=== PATIENT | female | born 1960 | race Caucasian/White ===

== ENCOUNTER 2017-01-08 19:27 | Inpatient (IN) | payer OTHER ==
[~2017-01-08] VITALS: Ht 152.4 cm; Wt 73.6 kg
[~2017-01-08 19:27] MED LIST: AMT50 PO; ASPCH81X PO; ATOR-22 PO; CETI10TA10 PO; CYCL10TA6 PO; GABA-113 PO; GLC/500 PO; IBUP-1451 PO; METO25TA3 PO; OMEP40CA41 PO; SERT-234 PO; TRAZ100T29 PO; ZLF50 PO; ZOLP5TAB6 PO
[2017-01-08] MEDS ORDERED: LORAZEPAM 2 MG/ML 1 ML VIAL IV STA (20:03)
[2017-01-08] MEDS ORDERED: SODIUM CHLORIDE 0.9% 500ML 500 ML IV STA (20:03)
[2017-01-08] MEDS ORDERED: CEFTRIAXONE SOD INJ 1 GM ADDVIAL IV STA (20:03)
--- NOTE | 2017-01-08 20:06 | EMERGENCY ROOM VISIT NOTE ---
History Report prepared by Tash: Mario Kovacs Under the Supervision of: Dr. Channing Jennings M.D. First contact with patient: 19:56 Chief Complaint: SHORTNESS OF BREATH Stated Complaint: CHEST PAIN, BACK PAIN, SOB, CHEST FEELS HEAVY Nursing Triage Summary: Patient c/o SOB that began Sunday. States difficulty breathing worsens when lying flat. Patient also c/o urinary frequency and urgency that began 2 days ago. States, "I'm just sick." History of Present Illness The patient is a 56 year old female who presents to the Emergency Room with complaints of shortness of breath that began 3 days ago. She rates her current pain severity an 8/10. The patient was diagnosed with a UTI recently. They picked up her antibiotics today, but she did not take them yet. She came to the ED because she is experiencing the shortness of breath with a heaviness in her chest, chest pain, back pain, abdominal pain, and burning upon urination. Her pain worsens when she lies down. Source of History: patient Onset: today Position: other (Respiratory System) Symptom Intensity: 8/10 Quality: other (shortness of breath) Timing: constant Modifying Factors (Worsening): rest (lying down) Associated Symptoms: + abdominal pain, + back pain, + chest pain, + urinary symptoms Review of Systems See HPI for pertinent positives & negatives. A total of 10 systems reviewed and were otherwise negative. Past Medical & Surgical Medical Problems: (1) Hx Perforated diverticulitis (2) Intra-abdominal free air (3) Rectosigmoid resection Surgical Problems: (1) Colostomy in place Family History Psychiatric disorder Social History Smoking Status: Never Smoker Smokeless Tobacco Use: No Drug Use: none Marital Status: Housing Status: lives with family Occupation Status: employed Current/Historical Medications Scheduled Amitriptyline HCl (Amitriptyline HCl), 50 MG PO HS Aspirin (Aspirin Ec), 81 MG PO DAILY Atorvastatin (Atorvastatin Calcium), 20 MG PO DAILY Duloxetine HCl (Duloxetine HCl), 60 MG PO DAILY Fluticasone Propionate (Flovent Hfa), 2 PUFFS INH BID Gabapentin (Gabapentin), 600 MG PO TID Metformin HCl (Metformin HCl), 500 MG PO BID Metoprolol Succinate (Metoprolol Succinate ER), 37.5 MG PO BID Omeprazole (Prilosec), 40 MG PO QAM Sertraline HCl (Sertraline HCl), 200 MG PO DAILY Trazodone Hcl (Trazodone), 100 MG PO HS Scheduled PRN Lorazepam (Lorazepam), 0.5-1 MG PO Q6H PRN for Anxiety Sumatriptan Succinate (Imitrex), 50 MG PO UD PRN for Migraine Allergies Coded Allergies: Adhesives (Unverified Allergy, Intermediate, blistering, 05/25/16) Sulfa Antibiotics (Verified Allergy, Intermediate, swelling, 05/25/16) Penicillins (Verified Allergy, Unknown, ZOSYN = FLUSHED FASE, ITCHING, 05/25) FLUSHED FACE, ITCHING TOLERATED PRIMAXIN 2013 ADMISSION Physical Exam Vital Signs Date Time Temp Pulse Resp B/P Pulse Ox O2 Delivery O2 Flow Rate FiO2 01/08/17 23:48 91 20 102/61 86 Room Air 01/08/17 22:12 101 20 152/88 93 Room Air 01/08/17 21:07 104 20 155/85 92 01/08/17 21:02 105 26 01/08/17 20:57 105 34 01/08/17 20:43 92 Room Air 01/08/17 20:43 92 Room Air 01/08/17 19:49 37.7 100 22 160/86 91 Room Air Physical Exam GENERAL: Patient is a healthy-appearing well-nourished. She is hyperventilating. HEAD: Normocephalic atraumatic EYES: Ocular movements intact pupils equal and react to light OROPHARYNX mucous membranes are moist no exudates present no erythema or edema present NECK: Supple no nuchal rigidity CHEST: Good equal expansion LUNGS: Clear and equal to auscultation CARDIAC: Normal S1 and S2 ABDOMEN: Soft nontender no guarding BACK: No CVA tenderness EXTREMITIES: No pain upon palpation normal muscle strength in all groups no clubbing cyanosis or edema NEURO: Patient is following commands is answering questions appropriately. Alert and oriented x3 Cranial Nerves 2-12 grossly intact Medical Decision & Procedures ER Provider Diagnostic Interpretation: Radiology results as stated below per my review and radiologist interpretation: CHEST ONE VIEW PORTABLE CLINICAL HISTORY: Pt c/o SOB dyspnea COMPARISON STUDY: 09/01/2015 FINDINGS: Mild cardia megaly. Moderate prominence pulmonary vasculature. Diaphragms smooth. Permanent bipolar cardiac pacemaker/fibrillator. IMPRESSION: Developing congestive heart failure Electronically signed by: Fredis Reece M.D. 01/08/2017 8:23 PM Dictated Date/Time: 01/08/2017 8:[address] CT DOSE: 623.48 mGy.cm HISTORY: Headache. Mental status change. Pt c/o AMS TECHNIQUE: Multiaxial CT images of the head were performed without the use of intravenous contrast. Comparison: None. Findings: The paranasal sinuses and mastoid air cells are clear. The calvarium and skull base are intact. The ventricles and sulci are within normal limits. There is no mass, hematoma, midline shift, or acute infarct. Impression: No acute intracranial abnormality. Electronically signed by: Fredis Reece M.D. 01/08/2017 9:24 PM Dictated Date/Time: 01/08/2017 9:21 PM Laboratory Results 01/08/17 20:30 Red Blood Count 4.45, Mean Corpuscular Volume 87.6, Mean Corpuscular Hemoglobin 29.7, Mean Corpuscular Hemoglobin Concent 33.8, Mean Platelet Volume 10.0, Neutrophils (%) (Auto) 93.1, Lymphocytes (%) (Auto) 2.2, Monocytes (%) (Auto) 4.3, Eosinophils (%) (Auto) 0.1, Basophils (%) (Auto) 0.1, Neutrophils # (Auto) 12.61, Lymphocytes # (Auto) 0.30, Monocytes # (Auto) 0.58, Eosinophils # (Auto) 0.02, Basophils # (Auto) 0.01 01/08/17 20:30 Test 01/08/17 20:30 01/08/17 22:55 White Blood Count 13.55 K/uL (4.8-10.8) Red Blood Count 4.45 M/uL (4.2-5.4) Hemoglobin 13.2 g/dL (12.0-16.0) Hematocrit 39.0 % (37-47) Mean Corpuscular Volume 87.6 fL (80-100) Mean Corpuscular Hemoglobin 29.7 pg (25-34) Mean Corpuscular Hemoglobin Concent 33.8 g/dl (32-36) Platelet Count 156 K/uL (130-400) Mean Platelet Volume 10.0 fL (7.4-10.4) Neutrophils (%) (Auto) 93.1 % Lymphocytes (%) (Auto) 2.2 % Monocytes (%) (Auto) 4.3 % Eosinophils (%) (Auto) 0.1 % Basophils (%) (Auto) 0.1 % Neutrophils # (Auto) 12.61 K/uL (1.4-6.5) Lymphocytes # (Auto) 0.30 K/uL (1.2-3.4) Monocytes # (Auto) 0.58 K/uL (0.11-0.59) Eosinophils # (Auto) 0.02 K/uL (0-0.5) Basophils # (Auto) 0.01 K/uL (0-0.2) RDW Standard Deviation 49.3 fL (36.4-46.3) RDW Coefficient of Variation 15.3 % (11.5-14.5) Immature Granulocyte % (Auto) 0.2 % Immature Granulocyte # (Auto) 0.03 K/uL (0.00-0.02) Anion Gap 13.0 mmol/L (3-11) Est Creatinine Clear Calc Drug Dose 42.7 ml/min Estimated GFR () 52.4 Estimated GFR (Non- 45.2 BUN/Creatinine Ratio 17.8 (10-20) Calcium Level 8.9 mg/dl (8.5-10.1) Total Bilirubin 1.6 mg/dl (0.2-1) Aspartate Amino Transf (AST/SGOT) 39 U/L (15-37) Alanine Aminotransferase (ALT/SGPT) 37 U/L (12-78) Alkaline Phosphatase 135 U/L (45-117) Total Creatine Kinase 149 U/L (26-192) Creatine Kinase MB 1.3 ng/ml (0.5-3.6) Creatine Kinase MB Ratio 0.9 (0-3.0) Total Protein 7.4 gm/dl (6.4-8.2) Albumin 3.5 gm/dl (3.4-5.0) Globulin 3.9 gm/dl (2.5-4.0) Albumin/Globulin Ratio 0.9 (0.9-2) Labs reviewed by ED physician. Medications Administered Medications (Trade) Dose Ordered Sig/Nessa Route Start Time Stop Time Status Last Admin Dose Admin Sodium Chloride (Nss 500ml) 500 ml @ 999 mls/hr Q31M STAT IV 01/08/17 20:03 01/08/17 20:33 DC 01/08/17 20:46 999 MLS/HR Ceftriaxone Sodium (Rocephin Inj) 1 gm NOW STAT IV 01/08/17 20:03 01/08/17 20:06 DC 01/08/17 20:46 1 GM Lorazepam (Ativan Inj) 0.5 mg NOW STAT IV 01/08/17 20:03 01/08/17 20:06 DC 01/08/17 20:46 0.5 MG Acetaminophen (Tylenol Tab) 1,000 mg NOW STAT PO 01/08/17 20:34 01/08/17 20:35 DC 01/08/17 20:50 1,000 MG Ketorolac Tromethamine (Toradol Inj) 30 mg NOW STAT IV 01/08/17 20:52 01/08/17 20:54 DC 01/08/17 21:02 30 MG Ondansetron HCl 4 mg 4 mg NOW STAT IV 01/08/17 20:52 01/08/17 20:54 DC 01/08/17 21:02 4 MG Furosemide/Syringe (Lasix Inj/ Syringe) 2 ml @ 4 mls/min NOW STAT IV 01/08/17 21:32 01/08/17 21:34 DC 01/08/17 22:00 4 MLS/MIN Aspirin (Aspirin Chew) 324 mg NOW STAT PO 01/08/17 22:33 01/08/17 22:35 DC 01/08/17 22:46 324 MG ECG Indication: SOB/dyspnea Rate (beats per minute): 102 Rhythm: sinus tachycardia Findings: no acute ischemic change, no ectopy ED Course 1955: Past medical records reviewed. The patient was evaluated in room A12. A complete history and physical examination was performed. 2002: Ativan Inj 0.5 mg IV, Rocephin Inj 1 mg IV, Sodium Chloride 500 ml @ 999 mls/hr IV 2029: I checked on the patient at this time. She is still hyperventilating. 2033: Tylenol 1000 mg PO 2051: Zofran Inj 4 mg IV, Toradol Inj 30 mg IV 2131: Furosemide 20 mg/ Syringe 2 ml @ 4 mls/min IV 2232: Aspirin 324 mg PO 2233: Upon reexamination the patient is resting. I discussed results and treatment plan with the patient. She verbalizes agreement and understanding. I spoke with Dr. Carter from the [facility]. The patient will be evaluated for further management. Medical Decision Etiologies such as infections, reactive airway disease, pneumonia, pneumothorax , COPD, CHF, cardiac ischemia, pulmonary embolism, musculoskeletal, gastrointestinal, as well as others were entertained. His is a 56-year-old female who presents emergency Department with a number of complaints. The patient is complaining of fever, headache, shortness of breath. She appears to be hyperventilating on examination. I tried to verbally de-escalate the patient however she was then given Ativan. She was given normal saline bolus in the emergency department. The patient came to the emergency department complaining of urinary symptoms however has not been able to provide us with a urine sample. She was given Lasix for the chest x-ray findings. She does have an elevation in her troponin. I did discuss the case with the hospitalist service who agreed to admit the patient. Patient was in agreement with the treatment plan. Consults Time Called: [phone] Consulting Physician: Dr. Carter - [facility] Returned Call: [phone] He will be evaluating the patient for further management. Impression Primary Impression: Fever Scribe Attestation The scribe's documentation has been prepared under my direction and personally reviewed by me in its entirety. I confirm that the note above accurately reflects all work, treatment, procedures, and medical decision making performed by me. Departure Information Dispostion Being Evaluated By Hospitalist Referrals Suad De León D.O. (PCP) Patient Instructions [facility] Problem Qualifiers Primary Impression: Fever Fever type: unspecified Qualified Codes: R50.9 - Fever, unspecified
--- NOTE | 2017-01-08 20:25 | DIAGNOSTIC IMAGING REPORT ---
ADDENDUM Addendum: The linear radiodensity along the superior aspect of the right subclavian pacemaker is a portion of the pacemaker. No abandoned lead is present. Electronically signed by: Phil Devries M.D. 01/11/2017 11:46 AM Dictated Date/Time: 01/11/2017 11:46 AM ADDENDUM There is a possibility of a third residual pacer lead medially superior to the battery pack as noted. Electronically signed by: Fredis Reece M.D. 01/11/2017 11:18 AM Dictated Date/Time: 01/11/2017 11:18 AM ORIGINAL REPORT CHEST ONE VIEW PORTABLE CLINICAL HISTORY: Pt c/o SOB dyspnea COMPARISON STUDY: 09/01/2015 FINDINGS: Mild cardia megaly. Moderate prominence pulmonary vasculature. Diaphragms smooth. Permanent bipolar cardiac pacemaker/fibrillator. IMPRESSION: Developing congestive heart failure Electronically signed by: Fredis Reece M.D. 01/08/2017 8:23 PM Dictated Date/Time: 01/08/2017 8:22 PM
[2017-01-08] MEDS ORDERED: ACETAMINOPHEN 500 MG TAB PO STA (20:34)
[2017-01-08] MEDS ORDERED: ATV5X PO (20:42)
[2017-01-08] MEDS ORDERED: ONDANSETRON INJ 2 MG/ML 2 ML VIAL IV STA (20:52)
[2017-01-08] MEDS ORDERED: KETOROLAC TROMETHAMINE 30 MG/ML VIAL IV STA (20:52)
--- NOTE | 2017-01-08 21:25 | DIAGNOSTIC IMAGING REPORT ---
HEAD CT NONCONTRAST CT DOSE: 623.48 mGy.cm HISTORY: Headache. Mental status change. Pt c/o AMS TECHNIQUE: Multiaxial CT images of the head were performed without the use of intravenous contrast. Comparison: None. Findings: The paranasal sinuses and mastoid air cells are clear. The calvarium and skull base are intact. The ventricles and sulci are within normal limits. There is no mass, hematoma, midline shift, or acute infarct. Impression: No acute intracranial abnormality. Electronically signed by: Fredis Reece M.D. 01/08/2017 9:24 PM Dictated Date/Time: 01/08/2017 9:21 PM
[2017-01-08] MEDS ORDERED: FUROSEMIDE INJ 20 MG in SYRINGE 0 ML IV STA (21:32)
[2017-01-08 21:49] LABS: BASO % 0.1 %; BASO ABS # 0.01 K/uL (0-0.2); COMPLETE YES; EOS % 0.1 %; IG% 0.2 %; LYMPH % 2.2 %; MEAN CELL VOLUME 87.6 fL (80-100); MEAN CORPUSCULAR HEMOGLOBIN 29.7 pg (25-34); MEAN CORPUSCULAR HGB CONC 33.8 g/dl (32-36); MONO % 4.3 %; NEUT % 93.1 %; PLATELET COUNT 156 K/uL (130-400); RED BLOOD COUNT 4.45 M/uL (4.2-5.4); WHITE BLOOD COUNT 13.55 K/uL (4.8-10.8)
[2017-01-08 22:11] LABS: BUN/CREATININE RATIO 17.8 (10-20); CALCIUM 8.9 mg/dl (8.5-10.1); CREATININE 1.3 mg/dl (0.60-1.20); POTASSIUM 3.5 mmol/L (3.5-5.1)
[2017-01-08 22:18] LABS: ALB/GLOB RATIO 0.9 (0.9-2); CKMB/CK RATIO 0.9 (0-3.0)
[2017-01-08] MEDS ORDERED: LPT/20 PO (22:32)
[2017-01-08] MEDS ORDERED: ASPI81TA28 PO (22:32)
[2017-01-08] MEDS ORDERED: ZLF/100 PO (22:32)
[2017-01-08] MEDS ORDERED: GLC500 PO (22:32)
[2017-01-08] MEDS ORDERED: TPRSR/25 PO (22:32)
[2017-01-08] MEDS ORDERED: GABA1CAP4 PO (22:32)
[2017-01-08] MEDS ORDERED: AMT/50 PO (22:32)
[2017-01-08] MEDS ORDERED: TRAZ50TA35 PO (22:32)
[2017-01-08] MEDS ORDERED: CYM60 PO (22:32)
[2017-01-08] MEDS ORDERED: ASPIRIN 81 MG CHEW PO STA (22:33)
[2017-01-08] MEDS ORDERED: SUMA25TA12 PO (22:35)
[2017-01-08] MEDS ORDERED: FLVHFA110 INH (22:40)
[2017-01-08] MEDS ORDERED: METOPROLOL SUCC 25MG EXT REL TAB PO STA (23:00)
[2017-01-08] MEDS ORDERED: LEVALBUTEROL/IPRATROPIUM NEB INH STA (23:25)
[2017-01-08] MEDS ORDERED: LEVALBUTEROL/IPRATROPIUM NEB INH PRN (23:30)
[2017-01-08] MEDS ORDERED: IPRATROPIUM BROMIDE NEB SOLN 0.02% 2.5 ML VIAL INH STA (23:36)
[2017-01-08] MEDS ORDERED: LEVALBUTEROL 1.25MG/0.5ML NEB INH STA (23:36)
[2017-01-08] MEDS ORDERED: LEVALBUTEROL 1.25MG/0.5ML NEB INH PRN (23:45)
[2017-01-08] MEDS ORDERED: IPRATROPIUM BROMIDE NEB SOLN 0.02% 2.5 ML VIAL INH PRN (23:45)
[2017-01-09] VITALS (10 sets, daily range): BP systolic 100–147; BP diastolic 65–87; PULSE 72–94; TEMP 36.5–38; O2SAT 92–100; Ht 152.4 cm; Wt 73.6 kg
[2017-01-09] MEDS ORDERED: POTASSIUM CHLORIDE 10 MEQ TABCR PO STA ×2 (00:26→00:58)
[2017-01-09] MEDS ORDERED: GLUCAGON FOR INJ 1 MG VIAL SQ PRN (00:30)
[2017-01-09] MEDS ORDERED: DEXTROSE 50% 50 ML SYR IV PRN (00:30)
[2017-01-09] MEDS ORDERED: GLUCOSE 10 TABS/TUBE PO PRN (00:30)
[2017-01-09] MEDS ORDERED: GLUCOSE 40% GEL 15 GM TUBE PO PRN (00:30)
[2017-01-09] MEDS ORDERED: NITROGLYCERIN 0.4 MG SL PER TAB CHARGE SL PRN (00:30)
[2017-01-09] MEDS ORDERED: LORAZEPAM 2 MG/ML 1 ML VIAL IV PRN (00:45)
[2017-01-09 00:52] LABS: MAGNESIUM 1.8 mg/dl (1.8-2.4); THYROID STIMULATING HORMONE 0.849 uIu/ml (0.300-4.500)
[2017-01-09] MEDS ORDERED: CEFEPIME IV 2,000 MG in DEXTROSE 5% 100ML 100 ML IV STA (00:55)
[2017-01-09] MEDS ORDERED: MAGNESIUM SULFATE 1GM / D5W 1 GM in PREMIXED IN D5W 100 ML IV STA (00:58)
[2017-01-09] MEDS ORDERED: MAGNESIUM SULFATE 1GM / D5W 1 GM BAG ONE (01:09)
[2017-01-09] MEDS ORDERED: HYDROmorphone INJ 0.5 MG/0.5 ML SYR IV PRN (01:30)
[2017-01-09 01:44] LABS: INR 1.2 (0.9-1.1); PROTHROMBIN TIME (PATIENT) 12.7 SECONDS (9.0-12.0)
[2017-01-09 02:34] LABS: INFLUENZA A PCR Neg for Influ A (NEG); INFLUENZA B PCR Neg for Influ B (NEG)
--- NOTE | 2017-01-09 03:03 | HISTORY & PHYSICAL EXAMINATION ---
DATE OF ADMISSION: 01/08/2017 PRIMARY CARE DOCTOR: Dr. De León Hx obtained form px and records. CHIEF COMPLAINT: Shortness of breath. HISTORY OF PRESENT ILLNESS: Medical history is significant for HOCM w/ documented genetic mutation/FH SCD sp ICD placement, hypertension, DM2 on oral meds, CADENCE/RLD as per records, hx bowel perforation sp status post surgery. Recent confinement last in August 2015 for ICD placement. In the last few days, the patient noted chest heaviness and shortness of breath. Gradual weight gain in the last several months of 40 pounds. no cough. no unusual leg swelling. Patient noted some foul urine smell. Patient called PCP's office. Macrodantin prescribed for poss UTI. Patient never got to take the medications. Px later noted achy abd discomfort/back pain, nausea, no emesis. chills later noted She was brought by her to the Emergency Room. At the Emergency Room, the patient received Lasix for CHF and ceftriaxone for sepsis. Px currently cp free. MEDICAL HISTORY: As above. Problems with CPAP compliance, poor interface as per records. April 2016 stress echo, no inducible ischemia, small LV chamber size, severe LVH , EF 60-65%, grade 2 diastolic dysfunction. SURGERIES: She has had bowel surgery, ICD placement, appendectomy and section. HOME MEDICATIONS: Include; trazodone, lorazepam, metformin, metoprolol, Prilosec, sertraline, Imitrex, aspirin, atorvastatin, meloxicam, Flovent and gabapentin ALLERGIES: TO ADHESIVES, PENICILLIN AND SULFA. FAMILY HISTORY: Sudden cardiac . PERSONAL AND SOCIAL HISTORY: Nonsmoker. No chronic intake of alcoholic beverages. Homemaker. REVIEW OF SYSTEMS: As per HPI, all other ROS negative. PHYSICAL EXAMINATION: VITAL SIGNS: Blood pressure was noted to be 160/86 later 102/61, pulse rate 105, RR 26, temperature 37.7 O2 sats 91 on room air. GENERAL: Noted to be anxious, obese, in no respiratory distress. SKIN: Normal color. HEENT: [place] palpebral conjunctivae. Dry mucosa. NECK: Short neck. LUNGS: Decreased breath sounds. Occasional wheeze. HEART: Regular rate and rhythm. ABDOMEN: Some distention, nontender. EXTREMITIES: No edema, no tenderness. NEUROLOGIC: No gross focality. LABORATORIES: Hemoglobin 12, hematocrit 31, white cell count is 13 and platelets 150. Sodium 137 potassium 3.5, chloride 97, CO2 25, BUN 20, creatinine 1.5, glucose 146. Troponin was 0.089 Hemoglobin A1c in September [address] head; no acute pathology. Chest x-ray: CHF. EKG showed 105, sinus tachycardia, LVH, with ST dep, T-wave inversion in lateral leads UA pending ASSESSMENT: 1. Acute congestive heart failure history of HOCM sp ICD 2. sepsis 2 to UTI 3. troponemia secondary to transient BP elevation, tachycardia 2 to sepsis 4. Hypertension, currently stable. 5. DM2, on oral medications reasonable control as of recent outpx HgA1c 6. ARF 2 to illness 7. CADENCE/restrictive lung dse as per records PLAN: PCU. Diuretic therapy, nebs p.r.n. continue home BB 2D echo, Cardio consult for CHF strict IOs, daily weights, CHF education baseline UA, PRP while on diuretic tx trend markers CS, IV Cefepime for now CT abdomen and pelvis, nonspecific abd/back pain ro SBO, hx bowel surgery ISS BG goal 140-180 DVT prophylaxis. Heparin SQ if no bleeding on CAT scan Full code. MTDD
[2017-01-09] MEDS ORDERED: POTASSIUM CHLORIDE 10 MEQ TABCR PO SCH (04:00)
[2017-01-09 04:53] LABS: BASO % 0.1 %; BASO ABS # 0.01 K/uL (0-0.2); COMPLETE YES; EOS % 0.1 %; HEMATOCRIT 36.9 % (37-47); IG% 0.3 %; LYMPH % 3.3 %; LYMPH ABS # 0.34 K/uL (1.2-3.4); MEAN CELL VOLUME 86.2 fL (80-100); MEAN CORPUSCULAR HEMOGLOBIN 30.1 pg (25-34); MEAN PLATELET VOLUME 9.4 fL (7.4-10.4); MONO % 3.4 %; NEUT % 92.8 %; PLATELET COUNT 140 K/uL (130-400); RED BLOOD COUNT 4.28 M/uL (4.2-5.4); WHITE BLOOD COUNT 10.35 K/uL (4.8-10.8)
[2017-01-09 05:08] LABS: BUN/CREATININE RATIO 14.7 (10-20); CALCIUM 8.6 mg/dl (8.5-10.1); CREATININE 1.7 mg/dl (0.60-1.20); POTASSIUM 3.5 mmol/L (3.5-5.1)
[2017-01-09 06:13] LABS: URINE APPEARANCE CLOUDY (CLEAR); URINE BILIRUBIN NEG (NEG); URINE COLOR DK YELLOW; URINE NITRITE POS (NEG); URINE SPECIFIC GRAVITY 1.013 (1.000-1.030); UROBILINOGEN NEG (NEG); ZZUR CULT IF INDIC CLEAN CATCH YES
[2017-01-09] MEDS: HEPARIN SOD 5000 UNIT/0.5 ML CARP SQ SCH ×3 (06:16→21:12)
[2017-01-09 06:25] LABS: MANUAL MICROSCOPIC REQUIRED? NO; REVIEW REQ? YES
[2017-01-09 06:37] LABS: URINE MUCUS PRESENT (NONE PRSENT)
--- NOTE | 2017-01-09 06:56 | DIAGNOSTIC IMAGING REPORT ---
CT SCAN OF THE ABDOMEN AND PELVIS WITHOUT CONTRAST CLINICAL HISTORY: Generalized abdominal pain COMPARISON STUDY: 11/11/2014 TECHNIQUE: CT scan of the abdomen and pelvis was performed from the lung bases to the proximal femurs. Images are reviewed in the axial, sagittal, and coronal planes. IV contrast was not administered for this examination. CT DOSE: 572.42 mGy.cm FINDINGS: Lower chest: The heart is mildly enlarged. Liver: There is mild hepatic steatosis. No focal masses are visualized. Gallbladder: Unremarkable. Spleen: The spleen is enlarged measuring 14 cm. Pancreas: There is a 2.5 cm cystic lesion within the pancreatic head. Pancreatic MRI is recommended in follow-up Adrenal glands: Unremarkable. Kidneys: There is persistent right-sided hydronephrosis with an extrarenal pelvis in a configuration suggesting a UPJ type obstruction. There is increasing right-sided perinephric edema. No calculi are visualized. Bowel: There are no transition zones indicate bowel obstruction. There are no findings to indicate acute appendicitis. There are no findings to indicate acute diverticulitis. Surgical clips are visualized the region of the sigmoid. Several ventral hernias are visualized. Peritoneum: There is no intraperitoneal free air or abdominal ascites. Vasculature: The abdominal aorta is normal in course and caliber. Adenopathy: None. Pelvic viscera: The bladder, and pelvic viscera are unremarkable. Skeletal structures: No destructive osseous lesions are seen. IMPRESSION: 1. Persistent right-sided hydronephrosis with extra renal pelvis in a configuration suggesting a UPJ obstruction. There is increasing right-sided perinephric edema, and superimposed infection cannot be excluded. Correlation with urinalysis is recommended 2. 2.5 cm cystic lesion within the pancreatic head. Further workup is advocated. This finding was not described on the preliminary report, and therefore this report will be called. 3. No evidence of bowel obstruction. No evidence of free air 4. Splenomegaly 5. Hepatic steatosis 6. Multiple ventral hernias. Electronically signed by: Dino Spann M.D. 01/09/2017 6:55 AM Dictated Date/Time: 01/09/2017 6:48 AM
[2017-01-09] MEDS: TRAMADOL HCL 50 MG TAB PO PRN ×2 (07:41→21:18)
[2017-01-09] MEDS: SERTRALINE HCL 100 MG TAB PO SCH (07:47)
[2017-01-09] MEDS: DULOXETINE HCL 60 MG CAP PO SCH (07:48)
[2017-01-09] MEDS: ASPIRIN 81 MG ECTAB PO SCH (07:48)
[2017-01-09] MEDS: PANTOprazole SOD 40 MG TAB PO SCH (07:48)
[2017-01-09] MEDS: METOPROLOL SUCC 25MG EXT REL TAB PO SCH ×2 (07:48→21:09)
[2017-01-09] MEDS: ATORVASTATIN 20 MG TAB PO SCH (07:48)
[2017-01-09] MEDS: FLUTICASONE HFA 110MCG INHALER INH SCH ×2 (07:49→21:08)
[2017-01-09] MEDS: GABAPENTIN 100 MG CAP PO SCH ×3 (07:49→21:10)
[2017-01-09] MEDS: INSULIN ASPART 100 UNITS/ML 3 ML PEN SC SCH ×4 (08:34→21:00)
[2017-01-09] MEDS ORDERED: FUROSEMIDE INJ 60 MG in SYRINGE 0 ML IV SCH (09:00)
[2017-01-09] MEDS ORDERED: [UNRECOGNIZED DRUG - OTHER] PRN (09:00)
[2017-01-09] MEDS ORDERED: CEFEPIME CONSULT ACTIVE PRN ×2 (09:30)
[2017-01-09] MEDS: ACETAMINOPHEN 325 MG TAB PO PRN (11:27)
--- NOTE | 2017-01-09 18:49 | Progress Note ---
Medicine Progress Note Date & Time of Visit: Jan 09, 2017 at 18:32. Subjective Patient seen and examined. Feels achy, but states that this is normal for her. Objective Last 8 Hrs Date Time Temp Pulse Resp B/P Pulse Ox O2 Delivery O2 Flow Rate FiO2 01/09/17 16:00 Nasal Cannula 2.0 01/09/17 15:19 36.5 72 22 100/65 93 Nasal Cannula 2.0 01/09/17 12:36 37.4 01/09/17 12:00 Nasal Cannula 2.0 01/09/17 11:23 38.0 91 24 147/87 100 Nasal Cannula 2.0 Physical Exam: General-awake; alert; NAD Eyes-EOMI; no scleral icterus Neck-no stridor; trachea midline Lungs-CTA bilaterally; no wheezes/crackles Heart-RRR; no m/r/g Abdomen-soft; nBS; ventral incisional hernias Extremities-no c/c/e; no deformity Neuro-no gross focal deficits Laboratory Results: Last 24 Hours Test 01/08/17 20:30 01/08/17 23:50 01/09/17 00:08 01/09/17 04:36 White Blood Count 13.55 K/uL 10.35 K/uL Red Blood Count 4.45 M/uL 4.28 M/uL Hemoglobin 13.2 g/dL 12.9 g/dL Hematocrit 39.0 % 36.9 % Mean Corpuscular Volume 87.6 fL 86.2 fL Mean Corpuscular Hemoglobin 29.7 pg 30.1 pg Mean Corpuscular Hemoglobin Concent 33.8 g/dl 35.0 g/dl Platelet Count 156 K/uL 140 K/uL Mean Platelet Volume 10.0 fL 9.4 fL Neutrophils (%) (Auto) 93.1 % 92.8 % Lymphocytes (%) (Auto) 2.2 % 3.3 % Monocytes (%) (Auto) 4.3 % 3.4 % Eosinophils (%) (Auto) 0.1 % 0.1 % Basophils (%) (Auto) 0.1 % 0.1 % Neutrophils # (Auto) 12.61 K/uL 9.61 K/uL Lymphocytes # (Auto) 0.30 K/uL 0.34 K/uL Monocytes # (Auto) 0.58 K/uL 0.35 K/uL Eosinophils # (Auto) 0.02 K/uL 0.01 K/uL Basophils # (Auto) 0.01 K/uL 0.01 K/uL RDW Standard Deviation 49.3 fL 48.3 fL RDW Coefficient of Variation 15.3 % 15.2 % Immature Granulocyte % (Auto) 0.2 % 0.3 % Immature Granulocyte # (Auto) 0.03 K/uL 0.03 K/uL Sodium Level 135 mmol/L 138 mmol/L Potassium Level 3.5 mmol/L 3.5 mmol/L Chloride Level 97 mmol/L 101 mmol/L Carbon Dioxide Level 25 mmol/L 26 mmol/L Anion Gap 13.0 mmol/L 11.0 mmol/L Blood Urea Nitrogen 23 mg/dl 25 mg/dl Creatinine 1.30 mg/dl 1.70 mg/dl Est Creatinine Clear Calc Drug Dose 42.7 ml/min 32.6 ml/min Estimated GFR () 52.4 37.9 Estimated GFR (Non- 45.2 32.7 BUN/Creatinine Ratio 17.8 14.7 Random Glucose 146 mg/dl 138 mg/dl Calcium Level 8.9 mg/dl 8.6 mg/dl Total Bilirubin 1.6 mg/dl Aspartate Amino Transf (AST/SGOT) 39 U/L Alanine Aminotransferase (ALT/SGPT) 37 U/L Alkaline Phosphatase 135 U/L Total Creatine Kinase 149 U/L Creatine Kinase MB 1.3 ng/ml Creatine Kinase MB Ratio 0.9 Troponin I 0.089 ng/ml 0.113 ng/ml 0.124 ng/ml Total Protein 7.4 gm/dl Albumin 3.5 gm/dl Globulin 3.9 gm/dl Albumin/Globulin Ratio 0.9 Influenza Type A (RT-PCR) Neg for Influ A Influenza Type A Antigen Neg for Influ A Influenza Type B Antigen Neg for Influ B Influenza Type B (RT-PCR) Neg for Influ B Prothrombin Time 12.7 SECONDS Prothromb Time International Ratio 1.2 Activated Partial Thromboplast Time 27.2 SECONDS Partial Thromboplastin Ratio 1.0 Lactic Acid Level 1.5 mmol/L Magnesium Level 1.8 mg/dl Lipase 69 U/L Thyroid Stimulating Hormone (TSH) 0.849 uIu/ml Hepatitis C Antibody Screen NEG Test 01/09/17 05:20 01/09/17 07:54 01/09/17 11:00 01/09/17 11:29 Urine Color DK YELLOW Urine Appearance CLOUDY Urine pH 5.0 Urine Specific [place] 1.013 Urine Protein 2+ Urine Glucose (UA) NEG Urine Ketones NEG Urine Occult Blood 3+ Urine Nitrite POS Urine Bilirubin NEG Urine Urobilinogen NEG Urine Leukocyte Esterase LARGE Urine WBC (Auto) >30 /hpf Urine RBC (Auto) 0-4 /hpf Urine Hyaline Casts (Auto) 0 /lpf Urine Epithelial Cells (Auto) 10-20 /lpf Urine Bacteria (Auto) 2+ Urine Pathogenic Casts /lpf Urine Mucus PRESENT Bedside Glucose 133 mg/dl 120 mg/dl Troponin I 0.120 ng/ml Test 01/09/17 15:48 Bedside Glucose 98 mg/dl Date/Time Source Procedure Growth Status 01/09/17 00:08 Blood Blood Culture Pending Received 01/09/17 00:00 Blood Blood Culture Pending Received 01/09/17 05:20 Urine , Clean Catch Urine Culture Pending Received Assessment & Plan Sepsis - resolved - likely underlying complicated UTI - dirty urinalysis - blood and urine cultures pending - continue cefepime for now Elevated troponin - Cardiology consulted - 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 - downtrended - EKG with TWI in V2-6 - asymptomatic - continue aspirin, metoprolol and atorvastatin - TTE pending OSBALDO - possibly 2/2 diuresis - hold on further diuresis at this time as patient does not appear to be clinically volume overloaded Type 2 DM - hold metformin - SSI while inpatient Pancreatic cystic lesion - will d/w GI any further inpatient workup DVT prophylaxis with heparin sq Consultants: Cardiology Procedures: CT a/p 1. Persistent right-sided hydronephrosis with extra renal pelvis in a configuration suggesting a UPJ obstruction. There is increasing right-sided perinephric edema, and superimposed infection cannot be excluded. Correlation with urinalysis is recommended 2. 2.5 cm cystic lesion within the pancreatic head. Further workup is advocated. This finding was not described on the preliminary report, and therefore this report will be called. 3. No evidence of bowel obstruction. No evidence of free air 4. Splenomegaly 5. Hepatic steatosis 6. Multiple ventral hernias. CT head No acute intracranial abnormality. Current Inpatient Medications: Current Inpatient Medications Medications (Trade) Dose Ordered Sig/Nessa Route Start Time Stop Time Status Last Admin Dose Admin Metoprolol Succinate (Toprol Xl Tab) 37.5 mg BID PO 01/09/17 09:00 02/08/17 08:59 01/09/17 07:48 37.5 MG Ipratropium [place] (Atrovent 0.02% 0.5MG/2.5ML Neb) 0.5 mg Q4H PRN INH 01/08/17 23:45 02/07/17 23:44 Levalbuterol (Xopenex 1.25MG/ 0.5ML Neb) 1.25 mg Q4H PRN INH 01/08/17 23:45 02/07/17 23:44 Heparin Sodium (Porcine) (Heparin Sq 5000 Unit/0.5ml) 5,000 unit Q8 SQ 01/09/17 06:00 02/08/17 05:59 01/09/17 13:40 5,000 UNIT Acetaminophen (Tylenol Tab) 650 mg Q4H PRN PO 01/09/17 00:30 02/08/17 00:29 01/09/17 11:27 650 MG Nitroglycerin (Nitrostat Tab) 0.4 mg UD PRN SL 01/09/17 00:30 02/08/17 00:29 Insulin Aspart (novoLOG ASPART) SLIDING SCALE If C... ACHS SC 01/09/17 07:00 02/08/17 06:59 Glucose (Glucose 40% Gel) 15-30 GRAMS 15 GRAMS... UD PRN PO 01/09/17 00:30 02/08/17 00:29 Glucose (Glucose Chew Tab) 4-8 Tablets 4 Tabl... UD PRN PO 01/09/17 00:30 02/08/17 00:29 Dextrose (Dextrose 50% 50ML Syringe) 25-50ML OF 50% DW IV FOR... UD PRN IV 01/09/17 00:30 02/08/17 00:29 Glucagon 1 mg 1 mg UD PRN SQ 01/09/17 00:30 02/08/17 00:29 Furosemide/Syringe (Lasix Inj/ Syringe) 6 ml @ 4 mls/min DAILY IV 01/09/17 09:00 01/10/17 08:59 Future Hold 01/09/17 08:35 4 MLS/MIN Amitriptyline HCl (Elavil Tab) 50 mg HS PO 01/09/17 21:00 02/08/17 20:59 Aspirin (Ecotrin Tab) 81 mg DAILY PO 01/09/17 09:00 02/08/17 08:59 01/09/17 07:48 81 MG Atorvastatin Calcium (Lipitor Tab) 20 mg DAILY PO 01/09/17 09:00 02/08/17 08:59 01/09/17 07:48 20 MG Duloxetine HCl (Cymbalta Cap) 60 mg DAILY PO 01/09/17 09:00 02/08/17 08:59 01/09/17 07:48 60 MG Fluticasone Propionate (Flovent Hfa 110MCG Inhaler) 2 puffs BID INH 01/09/17 09:00 02/08/17 08:59 01/09/17 07:49 2 PUFFS Sertraline HCl (Zoloft Tab) 200 mg DAILY PO 01/09/17 09:00 02/08/17 08:59 01/09/17 07:47 200 MG Trazodone HCl (Desyrel Tab) 100 mg HS PO 01/09/17 21:00 02/08/17 20:59 Pantoprazole Sodium (Protonix Tab) 40 mg QAM PO 01/09/17 09:00 02/08/17 08:59 01/09/17 07:48 40 MG Gabapentin (Neurontin Cap) 200 mg TID PO 01/09/17 09:00 02/08/17 08:59 01/09/17 13:40 200 MG Tramadol HCl 25 mg 25 mg Q6H PRN PO 01/09/17 01:30 02/08/17 01:29 01/09/17 07:41 25 MG Cefepime HCl/ Dextrose (Maxipime IV/D5 100ml) 112.5 ml @ 225 mls/hr Q24H IV 01/10/17 01:00 01/18/17 01:29 Cefepime HCl (Consult) 1 ea DAILY PRN N/A 01/09/17 09:30 02/08/17 09:29
--- NOTE | 2017-01-09 19:52 | CARDIOLOGY CONSULTATION ---
DATE OF CONSULTATION: 01/09/2017 HISTORY OF PRESENT ILLNESS: Kalie Velasquez is a 56-year-old female seen in cardiology consultation per the request of Dr. Carter for evaluation of shortness of breath, possible congestive heart failure. Her primary informatica mdm architect is Dr. Sb Bruno of our practice. The patient presented to the Emergency Room overnight last night with complaints of shortness of breath. Her chest x-ray was suggestive of volume overload and she stated that she has gained 40 pounds over the last several months. She also noted that she had a foul smell to her urine recently and had recently been treated as an outpatient for suspected urinary tract infection. She received a dose of furosemide 20 mg last evening at 2200 hours and received 60 mg today. At present, her furosemide is on hold. She is receiving antibiotics for presumed underlying sepsis. Her urinalysis is positive. Urine culture is unremarkable thus far. A CT of the abdomen and pelvis revealed a persistent right-sided hydronephrosis with extrarenal pelvis and a configuration suggestive of UPJ obstruction. There is increasing right-sided perinephric stranded and superimposed infection cannot be excluded on the CT study compared to the prior study. There is also a 2.5 cm cystic lesion noted within the pancreatic head for which further imaging in the future is recommended. At present, the patient feels improved from a shortness of breath standpoint. She feels uncomfortable in her lower back, abdomen, and is somewhat restless in bed. PAST MEDICAL HISTORY: 1. 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 2. Status post dual chamber [employer] AICD implanted for primary prevention of sudden cardiac in August 2015, 3. Labile hypertension. 4. Obesity. PAST SURGICAL HISTORY: 1. History of bowel perforation for which she had surgery including a colostomy and subsequent colostomy reversal. 2. AICD placement. 3. Appendectomy. 4. section. FAMILY HISTORY: Father with hypertrophic cardiomyopathy, suddenly at age 56. SOCIAL HISTORY: The patient is . Her 's name is Abdifatah. She is a lifelong nonsmoker. ALLERGIES: 1. PENICILLIN HAS CAUSED FLUSHING. 2. DOXACILLIN - RASH. 3. SULFA ANTIBIOTICS - REACTION UNDOCUMENTED. 4. TAPE. HOME MEDICATIONS: 1. Flexeril 5 mg 1-2 tablets by mouth 3 times per day. 2. Neurontin 300 mg 2 tablets by mouth 3 times per day. 3. Trazodone 50 mg 2 tablets by mouth at bedtime. 4. Aspirin 81 mg daily. 5. Ibuprofen 800 mg 3 times a day with food. 6. Amitriptyline 1 tablet by mouth daily. 7. Metformin 500 mg by mouth 2 times per day. 8. Zoloft 100 mg daily. 9. Metoprolol succinate 25 mg daily. 10. Fluticasone 110 mcg inhaled 2 times by mouth daily. 11. Cymbalta 60 mg by mouth daily. 12. Atorvastatin 20 mg by mouth daily. 13. Omeprazole 40 mg by mouth daily. COMPREHENSIVE REVIEW OF SYSTEMS: A 10-point review of systems reviewed and is negative with the exception of that noted above. PHYSICAL EXAMINATION: VITAL SIGNS: Temperature 38.0 at 11:23, most recently 36.5; heart rate 72, blood pressure 100/65, pulse oximetry 93% on 2 liters nasal cannula. GENERAL APPEARANCE: Ill in appearance, restless. NECK: No bruits. LUNGS: Clear. CARDIOVASCULAR: Regular rhythm, no murmurs. ABDOMEN: Soft. EXTREMITIES: No edema. NEUROLOGIC: No focal deficits. DIAGNOSTIC DATA: EKG reveals sinus rhythm with inferior and lateral T-wave inversions, unchanged compared to outpatient EKG in August 2016. LABORATORY STUDIES: Troponin I has been mildly elevated 0.89, 0.113, 0.124, and 0.120 ng/mL. Initial WBC count was 13.5 and down to 10.35 on repeat today, hemoglobin 12.9. BUN 25; creatinine 1.7, up from 1.3. FINAL IMPRESSION: A 56-year-old female. 1. Transient shortness of breath, resolved after 2 doses of IV furosemide. 2. Underlying hypertrophic cardiomyopathy. 3. Presumed complicated urinary tract infection. DISCUSSION AND RECOMMENDATIONS: Agree with holding off on further diuretic therapy as her kidney function suggest that she is now back intravascularly volume depleted. Her response to diuretics is probably very sensitive given her severe underlying ventricular hypertrophy. An echocardiogram has been ordered and will be completed when compared to her last outpatient study. For now, continue same outpatient cardiac medications including aspirin, atorvastatin and metoprolol succinate. Further recommendations will be forthcoming as her hospitalization develops. FIDE
[2017-01-09] MEDS: TRAZODONE HCL 50 MG TAB PO SCH (21:08)
[2017-01-09] MEDS: AMITRIPTYLINE HCL 50 MG TAB PO SCH (21:09)
[2017-01-10] VITALS (8 sets, daily range): BP systolic 96–125; BP diastolic 57–87; PULSE 67–86; TEMP 36.3–37; O2SAT 75–98
[2017-01-10] MEDS ORDERED: CEFEPIME IV 2000 MG in DEXTROSE 5% 100ML IV SCH (01:00)
[2017-01-10] MEDS: TRAMADOL HCL 50 MG TAB PO PRN (03:42)
[2017-01-10] MEDS: HEPARIN SOD 5000 UNIT/0.5 ML CARP SQ SCH ×3 (05:59→21:32)
[2017-01-10] MEDS: INSULIN ASPART 100 UNITS/ML 3 ML PEN SC SCH ×4 (07:00→21:00)
[2017-01-10 07:48] LABS: BUN/CREATININE RATIO 20.8 (10-20); CALCIUM 8.9 mg/dl (8.5-10.1); CREATININE 1.4 mg/dl (0.60-1.20); MAGNESIUM 2.4 mg/dl (1.8-2.4); POTASSIUM 4.2 mmol/L (3.5-5.1)
[2017-01-10] MEDS: ACETAMINOPHEN 325 MG TAB PO PRN (08:22)
[2017-01-10] MEDS: FLUTICASONE HFA 110MCG INHALER INH SCH ×2 (08:26→21:35)
[2017-01-10] MEDS: ASPIRIN 81 MG ECTAB PO SCH (08:27)
[2017-01-10] MEDS: ATORVASTATIN 20 MG TAB PO SCH (08:27)
[2017-01-10] MEDS: GABAPENTIN 100 MG CAP PO SCH ×3 (08:27→21:19)
[2017-01-10] MEDS: SERTRALINE HCL 100 MG TAB PO SCH (08:27)
[2017-01-10] MEDS: METOPROLOL SUCC 25MG EXT REL TAB PO SCH ×2 (08:27→21:20)
[2017-01-10] MEDS: DULOXETINE HCL 60 MG CAP PO SCH (08:28)
[2017-01-10] MEDS: PANTOprazole SOD 40 MG TAB PO SCH (08:28)
--- NOTE | 2017-01-10 16:47 | Cardiology Follow-Up ---
Subjective General Date of Service: Jan 10, 2017. Chief Complaint: follow up shortness of breath Pt evaluation today including: conversation w/ patient, physical exam History of Present Illness The patient is a 56 year old female seen in follow up. Pt feels much more comfortable today. Her back and abdominal pain is improved. Shortness of breath is resolved. Her kidney function is improved having held further furosemide. Allergies Coded Allergies: Adhesives (Unverified Allergy, Intermediate, blistering, 05/25/16) Sulfa Antibiotics (Verified Allergy, Intermediate, swelling, 05/25/16) Penicillins (Verified Allergy, Unknown, ZOSYN = FLUSHED FASE, ITCHING, 05/25) FLUSHED FACE, ITCHING TOLERATED PRIMAXIN 2013 ADMISSION Social History Smoking Status: Never Smoker Hx Tobacco Use In Past Year?: No Hx Alcohol Use - Type And Amou: No Hx Substance Use - Type And Am: No Problem List Medical Problems: (1) Fever Status: Acute Physical Exam Vital Signs Last Vital Signs Documentation Date Time Temp Pulse Resp B/P Pulse Ox O2 Delivery O2 Flow Rate FiO2 01/10/17 14:13 36.3 73 16 114/57 94 Room Air 01/10/17 14:04 2.0 Physical Exam Constitutional: Level of Distress: NAD Neck: supple, no masses Lungs: Auscultation: no wheezing, no rales/crackles Cardiovascular: Heart Auscultation: RRR, no murmurs Extremities: no edema Neurologic: Gait & Station: pertinent finding (no focal deficits) Assessment and Plan Assessment and Plan FINAL IMPRESSION: 56-year-old female. 1. Transient shortness of breath, resolved after 2 doses of IV furosemide. 2. Underlying hypertrophic cardiomyopathy, apical variant, stable echocardiogram findings this admission 3. Presumed complicated urinary tract infection. Recommendations: Continue supportive care with antibiotics. Continue current dose of beta jorge. No further diuretics at this time. Continue subcutaneous heparin for DVT prophylaxis. Patient declined the last dose, but she has received other doses. We will need to educate the patient's that she accepts this medication to prevent DVT. Laboratory Results Last 24 Hours Test 01/09/17 20:03 01/10/17 06:37 01/10/17 06:43 01/10/17 11:11 Bedside Glucose 117 mg/dl 91 mg/dl 93 mg/dl Sodium Level 134 mmol/L Potassium Level 4.2 mmol/L Chloride Level 99 mmol/L Carbon Dioxide Level 24 mmol/L Anion Gap 11.0 mmol/L Blood Urea Nitrogen 29 mg/dl Creatinine 1.40 mg/dl Est Creatinine Clear Calc Drug Dose 39.3 ml/min Estimated GFR () 47.9 Estimated GFR (Non- 41.3 BUN/Creatinine Ratio 20.8 Random Glucose 96 mg/dl Calcium Level 8.9 mg/dl Magnesium Level 2.4 mg/dl
--- NOTE | 2017-01-10 17:00 | Progress Note ---
Medicine Progress Note Date & Time of Visit: Jan 10, 2017 at 16:55. Subjective Patient seen and examined. States that she does not feel any better today than yesterday. Notes a sore throat and feeling SOB. Interestingly, patient reported to Cardiology feeling better today. Objective Last 8 Hrs Date Time Temp Pulse Resp B/P Pulse Ox O2 Delivery O2 Flow Rate FiO2 01/10/17 14:13 36.3 73 16 114/57 94 Room Air 01/10/17 14:04 36.4 72 16 86 2.0 01/10/17 12:00 Room Air 01/10/17 10:41 36.4 72 16 96/63 86 Room Air 01/10/17 09:28 Room Air Physical Exam: General-awake; alert; NAD Eyes-EOMI; no scleral icterus ENT-no appreciable erythema of OP Neck-no stridor; trachea midline Lungs-CTA bilaterally; no wheezes/crackles Heart-RRR; no m/r/g Abdomen-soft; nBS; ventral incisional hernias; NT Extremities-no c/c/e; no deformity Neuro-no gross focal deficits Laboratory Results: Last 24 Hours Test 01/09/17 20:03 01/10/17 06:37 01/10/17 06:43 01/10/17 11:11 Bedside Glucose 117 mg/dl 91 mg/dl 93 mg/dl Sodium Level 134 mmol/L Potassium Level 4.2 mmol/L Chloride Level 99 mmol/L Carbon Dioxide Level 24 mmol/L Anion Gap 11.0 mmol/L Blood Urea Nitrogen 29 mg/dl Creatinine 1.40 mg/dl Est Creatinine Clear Calc Drug Dose 39.3 ml/min Estimated GFR () 47.9 Estimated GFR (Non- 41.3 BUN/Creatinine Ratio 20.8 Random Glucose 96 mg/dl Calcium Level 8.9 mg/dl Magnesium Level 2.4 mg/dl Assessment & Plan Sepsis - resolved - likely related to underlying complicated UTI - dirty urinalysis - blood cultures ngtd - re-incubating urine culture - de-escalate cefepime to levofloxacin Elevated troponin - Cardiology consulted - 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 - downtrended - asymptomatic - continue aspirin, metoprolol and atorvastatin - TTE with stable findings OSBALDO - possibly 2/2 diuresis - hold on further diuresis at this time as patient does not appear to be clinically volume overloaded - improving Type 2 DM - hold metformin - SSI while inpatient Pancreatic cystic lesion - MRCP pending DVT prophylaxis with heparin sq Anticipate discharge home when medically stable. Consultants: Cardiology Procedures: CT a/p 1. Persistent right-sided hydronephrosis with extra renal pelvis in a configuration suggesting a UPJ obstruction. There is increasing right-sided perinephric edema, and superimposed infection cannot be excluded. Correlation with urinalysis is recommended 2. 2.5 cm cystic lesion within the pancreatic head. Further workup is advocated. This finding was not described on the preliminary report, and therefore this report will be called. 3. No evidence of bowel obstruction. No evidence of free air 4. Splenomegaly 5. Hepatic steatosis 6. Multiple ventral hernias. CT head No acute intracranial abnormality. Current Inpatient Medications: Current Inpatient Medications Medications (Trade) Dose Ordered Sig/Nessa Route Start Time Stop Time Status Last Admin Dose Admin Metoprolol Succinate (Toprol Xl Tab) 37.5 mg BID PO 01/09/17 09:00 02/08/17 08:59 01/10/17 08:27 37.5 MG Ipratropium [place] (Atrovent 0.02% 0.5MG/2.5ML Neb) 0.5 mg Q4H PRN INH 01/08/17 23:45 02/07/17 23:44 Levalbuterol (Xopenex 1.25MG/ 0.5ML Neb) 1.25 mg Q4H PRN INH 01/08/17 23:45 02/07/17 23:44 Heparin Sodium (Porcine) (Heparin Sq 5000 Unit/0.5ml) 5,000 unit Q8 SQ 01/09/17 06:00 02/08/17 05:59 01/10/17 05:59 5,000 UNIT Acetaminophen (Tylenol Tab) 650 mg Q4H PRN PO 01/09/17 00:30 02/08/17 00:29 01/10/17 08:22 650 MG Nitroglycerin (Nitrostat Tab) 0.4 mg UD PRN SL 01/09/17 00:30 02/08/17 00:29 Insulin Aspart (novoLOG ASPART) SLIDING SCALE If C... ACHS SC 01/09/17 07:00 02/08/17 06:59 01/10/17 07:00 1 UNITS Glucose (Glucose 40% Gel) 15-30 GRAMS 15 GRAMS... UD PRN PO 01/09/17 00:30 02/08/17 00:29 Glucose (Glucose Chew Tab) 4-8 Tablets 4 Tabl... UD PRN PO 01/09/17 00:30 02/08/17 00:29 Dextrose (Dextrose 50% 50ML Syringe) 25-50ML OF 50% DW IV FOR... UD PRN IV 01/09/17 00:30 02/08/17 00:29 Glucagon (Glucagon Inj) 1 mg UD PRN SQ 01/09/17 00:30 02/08/17 00:29 Amitriptyline HCl (Elavil Tab) 50 mg HS PO 01/09/17 21:00 02/08/17 20:59 01/09/17 21:09 50 MG Aspirin (Ecotrin Tab) 81 mg DAILY PO 01/09/17 09:00 02/08/17 08:59 01/10/17 08:27 81 MG Atorvastatin Calcium (Lipitor Tab) 20 mg DAILY PO 01/09/17 09:00 02/08/17 08:59 01/10/17 08:27 20 MG Duloxetine HCl (Cymbalta Cap) 60 mg DAILY PO 01/09/17 09:00 02/08/17 08:59 01/10/17 08:28 60 MG Fluticasone Propionate (Flovent Hfa 110MCG Inhaler) 2 puffs BID INH 01/09/17 09:00 02/08/17 08:59 01/10/17 08:26 2 PUFFS Sertraline HCl (Zoloft Tab) 200 mg DAILY PO 01/09/17 09:00 02/08/17 08:59 01/10/17 08:27 200 MG Trazodone HCl (Desyrel Tab) 100 mg HS PO 01/09/17 21:00 02/08/17 20:59 01/09/17 21:08 100 MG Pantoprazole Sodium (Protonix Tab) 40 mg QAM PO 01/09/17 09:00 02/08/17 08:59 01/10/17 08:28 40 MG Gabapentin (Neurontin Cap) 200 mg TID PO 01/09/17 09:00 02/08/17 08:59 01/10/17 13:50 200 MG Tramadol HCl 25 mg 25 mg Q6H PRN PO 01/09/17 01:30 02/08/17 01:29 01/10/17 03:42 25 MG Cefepime HCl/ Dextrose (Maxipime IV/D5 100ml) 112.5 ml @ 225 mls/hr Q24H IV 01/10/17 01:00 01/18/17 01:29 01/10/17 01:03 225 MLS/HR Cefepime HCl (Consult) 1 ea DAILY PRN N/A 01/09/17 09:30 02/08/17 09:29
[2017-01-10] MEDS ORDERED: LEVOFLOXACIN CONSULT ACTIVE PRN (17:22)
[2017-01-10] MEDS ORDERED: LORAZEPAM INJ 0.5 MG in SYRINGE 0.75 ML IV SCH (17:30)
[2017-01-10] MEDS: TRAZODONE HCL 50 MG TAB PO SCH (21:18)
[2017-01-10] MEDS: AMITRIPTYLINE HCL 50 MG TAB PO SCH (21:19)
[2017-01-10] MEDS: LEVOFLOXACIN 250MG / D5W IV SCH (21:22)
[2017-01-10] MEDS ORDERED: COUGH DROP (SUGAR FREE) LOZ 24 LOZ/1 BOX ONE (21:45)
[2017-01-11] MEDS: TRAMADOL HCL 50 MG TAB PO PRN ×3 (00:16→19:24)
[2017-01-11] MEDS: HEPARIN SOD 5000 UNIT/0.5 ML CARP SQ SCH ×3 (06:03→20:55)
[2017-01-11 07:15] VITALS: BP 143/84; PULSE 76; TEMP 36.7; O2SAT 91
[2017-01-11 07:46] LABS: HEMATOCRIT 35.7 % (37-47); MEAN CELL VOLUME 87.5 fL (80-100); MEAN CORPUSCULAR HEMOGLOBIN 29.2 pg (25-34); MEAN CORPUSCULAR HGB CONC 33.3 g/dl (32-36); MEAN PLATELET VOLUME 10.8 fL (7.4-10.4); PLATELET COUNT 114 K/uL (130-400); RED BLOOD COUNT 4.08 M/uL (4.2-5.4); WHITE BLOOD COUNT 5.04 K/uL (4.8-10.8)
[2017-01-11 08:26] LABS: BUN/CREATININE RATIO 28.1 (10-20); CALCIUM 8.7 mg/dl (8.5-10.1); CREATININE 1.1 mg/dl (0.60-1.20); MAGNESIUM 2.5 mg/dl (1.8-2.4); POTASSIUM 3.8 mmol/L (3.5-5.1)
--- NOTE | 2017-01-11 08:26 | ECHOCARDIOGRAM REPORT ---
*NOTICE TO RECEIVING [facility] This information is strictly Confidential and protected under [place] law. [place] law prohibits you from making any further disclosure of this information unless further disclosure is expressly permitted by the written consent of the person to whom it pertains or is authorized by law. A general authorization for the release of medical or other information is not sufficient for this purpose. Hospital accepts no responsibility if the information is made available to any other person, INCLUDING THE PATIENT. Interpretation Summary * Name: AUGUSTO GUZMAN Study Date: 01/09/2017 10:12 AM BP: 128/66 mmHg * Patient Location: C.EDINP\S\EDINP 1\S\9 HR: 91 * : 1960 (M/d/yyyy) Gender: Female Height: 60 in * Age: 56 yrs Ethnicity: CA Weight: 165 lb * Ordering Physician: González Carter * Referring Physician: Self, Referred * Performed By: Anai Irvin RCS * * Reason For Study: CHF * BSA: 1.7 m2 * -- Conclusions -- * Findings consistent with apical variant of hypertrophic cardiomyopathy without left ventricular outflow tract obstruction or mitral regurgitation. * There is asymmetric left ventricular hypertrophy. * The asymmetric hypertrophy involves the interventricular septum left ventricular apex. * Left ventricular systolic function is normal. * The LV Ejection Fraction = 60-65%. * The left ventricular wall motion is normal. * Diastolic dysfunction, Grade II (pseudonormalization pattern). * There is no significant valvular heart disease. Procedure Details * A complete two-dimensional transthoracic echocardiogram was performed (2D, M-mode, Doppler and color flow Doppler). * The study was technically difficult. * A contrast injection of Definity was performed to improve assessment of LV function. * Contrast was injected into an intravenous site in the left arm. * One vial of Definity ultrasound contrast was diluted in normal saline to a total volume of 10 ml. A total of '2' ml of solution was administered during imaging. * Lot # [id number] of Definity utilized for procedure. * Expiration date 1 JAN 06. * The attending nurse who injected the contrast agent was NOREEN Reid RN. Left Ventricle * The left ventricle is normal in size. * There is asymmetric left ventricular hypertrophy. The asymmetric hypertrophy involves the interventricular septum left ventricular apex. * Left ventricular systolic function is normal. * Ejection Fraction = 60-65%. * The left ventricular wall motion is normal. Right Ventricle * The right ventricle is normal size. * The right ventricular systolic function is normal as assessed by tricuspid annular plane systolic excursion (TAPSE) (normal >1.5 cm). Atria * The left atrium is mildly dilated. * Right atrial size is normal. * There is no evidence of atrial septal defect, but resolution does not allow assessment for a patent foramen ovale. Mitral Valve * The mitral valve is normal. * There is no mitral valve stenosis. * Significant mitral regurgitation is absent. Tricuspid Valve * The tricuspid valve is normal. * There is no tricuspid stenosis. * Significant tricuspid regurgitation is absent. Aortic Valve * The aortic valve is trileaflet. * Aortic stenosis is absent. * There is no significant aortic regurgitation. Pulmonic Valve * The pulmonary valve is not well seen, but the Doppler examination is normal without significant regurgitation or stenosis. Great Vessels * The aortic root and proximal ascending aorta are normal sized. Pericardium/Pleural * There is no pericardial effusion. * Thee is an echodensity in the aterior pericardial space consistent with pericardial fat. Right Ventricle * An implatnable deffibrillator lead is visualized in the right ventricle. Great Vessels * Normal inferior vena cava diameter and respiratory variation suggests normal central venous pressure. Left Ventricular Diastolic Function * Diastolic dysfunction, Grade II (pseudonormalization pattern). MMode 2D Measurements and Calculations IVSd 2.1 cm IVSs 2.6 cm LVIDd 3.9 cm LVIDs 3.6 cm LVPWd 1.3 cm LVPWs 1.4 cm IVS/LVPW 1.6 FS 8.2 % EDV(Teich) 65.5 ml ESV(Teich) 53.4 ml EF(Teich) 18.5 % EDV(cubed) 58.9 ml ESV(cubed) 45.6 ml EF(cubed) 22.6 % % IVS thick 23.6 % % LVPW thick 9.9 % LV mass(C)d 276.5 grams LV mass(C)dI 160.8 grams/m\S\2 LV mass(C)s 330.3 grams LV mass(C)sI 192.1 grams/m\S\2 SV(Teich) 12.1 ml SI(Teich) 7.0 ml/m\S\2 SV(cubed) 13.3 ml SI(cubed) 7.7 ml/m\S\2 Ao root diam 3.4 cm Ao root area 9.0 cm\S\2 LA dimension 3.8 cm LA/Ao 1.1 LVOT diam 2.1 cm LVOT area 3.3 cm\S\2 LVAd ap4 29.2 cm\S\2 LVLd ap4 7.9 cm EDV(MOD-sp4) 89.5 ml EDV(sp4-el) 91.8 ml LVAs ap4 21.0 cm\S\2 LVLs ap4 6.9 cm ESV(MOD-sp4) 51.6 ml ESV(sp4-el) 54.5 ml EF(MOD-sp4) 42.3 % EF(sp4-el) 40.6 % LVAd ap2 22.6 cm\S\2 LVLd ap2 6.8 cm EDV(MOD-sp2) 71.7 ml EDV(sp2-el) 63.2 ml LVAs ap2 16.7 cm\S\2 LVLs ap2 5.8 cm ESV(MOD-sp2) 41.2 ml ESV(sp2-el) 41.2 ml EF(MOD-sp2) 42.5 % EF(sp2-el) 34.9 % LVLd %diff -15.37 % EDV(MOD-bp) 85.2 ml LVLs %diff -19.08 % ESV(MOD-bp) 50.5 ml EF(MOD-bp) 40.7 % SV(MOD-sp4) 37.8 ml SI(MOD-sp4) 22.0 ml/m\S\2 SV(MOD-sp2) 30.5 ml SI(MOD-sp2) 17.7 ml/m\S\2 SV(MOD-bp) 34.7 ml SI(MOD-bp) 20.2 ml/m\S\2 SV(sp4-el) 37.3 ml SI(sp4-el) 21.7 ml/m\S\2 SV(sp2-el) 22.0 ml SI(sp2-el) 12.8 ml/m\S\2 Doppler Measurements and Calculations MV E max harriet 64.5 cm/sec MV A max harriet 46.1 cm/sec MV E/A 1.4 MV P1/2t max harriet 108.6 cm/sec MV P1/2t 39.9 msec MVA(P1/2t) 5.5 cm\S\2 MV dec slope 797.1 cm/sec\S\2 MV dec time 0.24 sec Ao V2 max 164.2 cm/sec Ao max PG 10.8 mmHg Ao max PG (full) 7.4 mmHg NASRIN(V,A) 1.9 cm\S\2 NASRIN(V,D) 1.9 cm\S\2 LV V1 max PG 3.4 mmHg LV V1 max 92.2 cm/sec PA V2 max 89.6 cm/sec PA max PG 3.2 mmHg TR max harriet 382.6 cm/sec
[2017-01-11] MEDS: GABAPENTIN 100 MG CAP PO SCH ×3 (09:16→20:48)
[2017-01-11] MEDS: DULOXETINE HCL 60 MG CAP PO SCH (09:16)
[2017-01-11] MEDS: ATORVASTATIN 20 MG TAB PO SCH (09:16)
[2017-01-11] MEDS: ASPIRIN 81 MG ECTAB PO SCH (09:16)
[2017-01-11] MEDS: METOPROLOL SUCC 25MG EXT REL TAB PO SCH ×2 (09:17→20:59)
[2017-01-11] MEDS: PANTOprazole SOD 40 MG TAB PO SCH (09:17)
[2017-01-11] MEDS: SERTRALINE HCL 100 MG TAB PO SCH (09:17)
[2017-01-11] MEDS: FLUTICASONE HFA 110MCG INHALER INH SCH ×2 (09:18→20:49)
[2017-01-11] MEDS: INSULIN ASPART 100 UNITS/ML 3 ML PEN SC SCH ×4 (09:24→20:58)
--- NOTE | 2017-01-11 15:01 | DIAGNOSTIC IMAGING REPORT ---
MRCP CLINICAL HISTORY: cystic pancreatic lesion noted on ct abnormal CT exam TECHNIQUE: Multiaxial MRI acquisition COMPARISON STUDY: CT study dated 01/09/2017 FINDINGS: Liver is uniform in appearance. Gallstones are present within the gallbladder lumen. Biliary ductal system is unremarkable. There is no dilatation of the pancreatic duct. At the level of the pancreatic head is a 2.1 cm cystic lesion medially adjacent to the pancreatic duct. This may simply run pancreatic cyst, cystadenoma, with ultrasound recommended to exclude any possibility of cystic neoplasm. The remainder the pancreas is uniform. 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 Left kidney is negative for hydronephrosis. Visualized bowel pattern is nonobstructive. IMPRESSION: 1. Gallstones within the gallbladder lumen. 2. The biliary and pancreatic ductal systems appear unremarkable. 3. 2.1 cm cystic lesion within the pancreatic head medially adjacent to the pancreatic duct. 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 4. Endoscopic ultrasonography of the pancreas is suggested as follow-up Electronically signed by: Fredis Reece M.D. 01/11/2017 3:00 PM Dictated Date/Time: 01/11/2017 2:52 PM
[2017-01-11 15:39] VITALS: BP 118/71; PULSE 70; TEMP 36.7; O2SAT 90
--- NOTE | 2017-01-11 18:11 | Progress Note ---
Medicine Progress Note Date & Time of Visit: Jan 11, 2017 at 18:04. Subjective Patient seen and examined. Feeling a bit better today. Feels that her nerves are edgy, and asking to possibly go up on some of her psych medications. Also feels depressed and has been crying more recently. Does not want to speak with mental health. Objective Last 8 Hrs Date Time Temp Pulse Resp B/P Pulse Ox O2 Delivery O2 Flow Rate FiO2 01/11/17 16:20 Nasal Cannula 2.0 01/11/17 15:39 36.7 70 18 118/71 90 Room Air Physical Exam: General-awake; alert; NAD Eyes-EOMI; no scleral icterus Neck-no stridor; trachea midline Lungs-CTA bilaterally; no wheezes/crackles Heart-RRR; no m/r/g Abdomen-soft; nBS; ventral incisional hernias; NT Extremities-no c/c/e; no deformity Neuro-no gross focal deficits Laboratory Results: Last 24 Hours Test 01/10/17 21:16 01/11/17 07:01 01/11/17 07:46 01/11/17 12:10 Bedside Glucose 104 mg/dl 85 mg/dl 92 mg/dl White Blood Count 5.04 K/uL Red Blood Count 4.08 M/uL Hemoglobin 11.9 g/dL Hematocrit 35.7 % Mean Corpuscular Volume 87.5 fL Mean Corpuscular Hemoglobin 29.2 pg Mean Corpuscular Hemoglobin Concent 33.3 g/dl RDW Standard Deviation 49.4 fL RDW Coefficient of Variation 15.3 % Platelet Count 114 K/uL Mean Platelet Volume 10.8 fL Sodium Level 132 mmol/L Potassium Level 3.8 mmol/L Chloride Level 99 mmol/L Carbon Dioxide Level 22 mmol/L Anion Gap 11.0 mmol/L Blood Urea Nitrogen 31 mg/dl Creatinine 1.10 mg/dl Est Creatinine Clear Calc Drug Dose 49.8 ml/min Estimated GFR () 64.1 Estimated GFR (Non- 55.3 BUN/Creatinine Ratio 28.1 Random Glucose 88 mg/dl Calcium Level 8.7 mg/dl Magnesium Level 2.5 mg/dl Assessment & Plan Sepsis - resolved - likely related to underlying complicated UTI - dirty urinalysis - blood cultures ngtd - urine culture with 30K of yeast, not tita - de-escalated cefepime to levofloxacin - consult ID regarding yeast in urine Elevated troponin - Cardiology consulted - 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 - downtrended - asymptomatic - continue aspirin, metoprolol and atorvastatin - TTE with stable findings OSBALDO - possibly 2/2 diuresis - hold on further diuresis at this time as patient does not appear to be clinically volume overloaded - resolved Type 2 DM - hold metformin - SSI while inpatient Pancreatic cystic lesion - MRCP with 2cm cystic lesion; recommending EUS - will set up with outpatient GI Depression - continue amitriptyline, duloxetine, sertraline, trazodone - patient declines psychiatry evaluation at this time DVT prophylaxis with heparin sq Possible discharge home tomorrow. Consultants: Cardiology Infectious disease Procedures: CT a/p 1. Persistent right-sided hydronephrosis with extra renal pelvis in a configuration suggesting a UPJ obstruction. There is increasing right-sided perinephric edema, and superimposed infection cannot be excluded. Correlation with urinalysis is recommended 2. 2.5 cm cystic lesion within the pancreatic head. Further workup is advocated. This finding was not described on the preliminary report, and therefore this report will be called. 3. No evidence of bowel obstruction. No evidence of free air 4. Splenomegaly 5. Hepatic steatosis 6. Multiple ventral hernias. CT head No acute intracranial abnormality. MRCP 1. Gallstones within the gallbladder lumen. 2. The biliary and pancreatic ductal systems appear unremarkable. 3. 2.1 cm cystic lesion within the pancreatic head medially adjacent to the pancreatic duct. 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 4. Endoscopic ultrasonography of the pancreas is suggested as follow-up Current Inpatient Medications: Current Inpatient Medications Medications (Trade) Dose Ordered Sig/Nessa Route Start Time Stop Time Status Last Admin Dose Admin Metoprolol Succinate (Toprol Xl Tab) 37.5 mg BID PO 01/09/17 09:00 02/08/17 08:59 01/11/17 09:17 37.5 MG Ipratropium Pedro (Atrovent 0.02% 0.5MG/2.5ML Neb) 0.5 mg Q4H PRN INH 01/08/17 23:45 02/07/17 23:44 Levalbuterol (Xopenex 1.25MG/ 0.5ML Neb) 1.25 mg Q4H PRN INH 01/08/17 23:45 02/07/17 23:44 Heparin Sodium (Porcine) (Heparin Sq 5000 Unit/0.5ml) 5,000 unit Q8 SQ 01/09/17 06:00 02/08/17 05:59 01/11/17 06:03 5,000 UNIT Acetaminophen (Tylenol Tab) 650 mg Q4H PRN PO 01/09/17 00:30 02/08/17 00:29 01/10/17 08:22 650 MG Nitroglycerin (Nitrostat Tab) 0.4 mg UD PRN SL 01/09/17 00:30 02/08/17 00:29 Insulin Aspart (novoLOG ASPART) SLIDING SCALE If C... ACHS SC 01/09/17 07:00 02/08/17 06:59 01/10/17 07:00 1 UNITS Glucose (Glucose 40% Gel) 15-30 GRAMS 15 GRAMS... UD PRN PO 01/09/17 00:30 02/08/17 00:29 Glucose (Glucose Chew Tab) 4-8 Tablets 4 Tabl... UD PRN PO 01/09/17 00:30 02/08/17 00:29 Dextrose (Dextrose 50% 50ML Syringe) 25-50ML OF 50% DW IV FOR... UD PRN IV 01/09/17 00:30 02/08/17 00:29 Glucagon (Glucagon Inj) 1 mg UD PRN SQ 01/09/17 00:30 02/08/17 00:29 Amitriptyline HCl (Elavil Tab) 50 mg HS PO 01/09/17 21:00 02/08/17 20:59 01/10/17 21:19 50 MG Aspirin (Ecotrin Tab) 81 mg DAILY PO 01/09/17 09:00 02/08/17 08:59 01/11/17 09:16 81 MG Atorvastatin Calcium (Lipitor Tab) 20 mg DAILY PO 01/09/17 09:00 02/08/17 08:59 01/11/17 09:16 20 MG Duloxetine HCl (Cymbalta Cap) 60 mg DAILY PO 01/09/17 09:00 02/08/17 08:59 01/11/17 09:16 60 MG Fluticasone Propionate (Flovent Hfa 110MCG Inhaler) 2 puffs BID INH 01/09/17 09:00 02/08/17 08:59 01/11/17 09:18 2 PUFFS Sertraline HCl (Zoloft Tab) 200 mg DAILY PO 01/09/17 09:00 02/08/17 08:59 01/11/17 09:17 200 MG Trazodone HCl (Desyrel Tab) 100 mg HS PO 01/09/17 21:00 02/08/17 20:59 01/10/17 21:18 100 MG Pantoprazole Sodium (Protonix Tab) 40 mg QAM PO 01/09/17 09:00 02/08/17 08:59 01/11/17 09:17 40 MG Gabapentin (Neurontin Cap) 200 mg TID PO 01/09/17 09:00 02/08/17 08:59 01/11/17 09:16 200 MG Tramadol HCl (Ultram Tab) 25 mg Q6H PRN PO 01/09/17 01:30 02/08/17 01:29 01/11/17 06:09 25 MG Levofloxacin 1 ea 1 ea UD PRN N/A 01/10/17 17:22 02/09/17 17:21 Levofloxacin/Prmx (Levaquin / D5W/ Premixed D5W) 50 ml @ 50 mls/hr Q24H IV 01/10/17 22:00 01/17/17 22:59 01/10/17 21:22 50 MLS/HR
[2017-01-11] MEDS: AMITRIPTYLINE HCL 50 MG TAB PO SCH (20:46)
[2017-01-11] MEDS: LEVOFLOXACIN 250MG / D5W IV SCH (20:50)
[2017-01-11] MEDS: TRAZODONE HCL 50 MG TAB PO SCH (20:50)
[2017-01-12] VITALS (9 sets, daily range): BP systolic 102–134; BP diastolic 57–84; PULSE 65–75; TEMP 36.3–36.8; O2SAT 86–100
[2017-01-12] MEDS: INSULIN ASPART 100 UNITS/ML 3 ML PEN SC SCH ×4 (06:30→21:00)
[2017-01-12] MEDS: HEPARIN SOD 5000 UNIT/0.5 ML CARP SQ SCH ×3 (06:43→21:14)
[2017-01-12] MEDS: ACETAMINOPHEN 325 MG TAB PO PRN (07:42)
[2017-01-12] MEDS: ASPIRIN 81 MG ECTAB PO SCH (08:01)
[2017-01-12] MEDS: ATORVASTATIN 20 MG TAB PO SCH (08:01)
[2017-01-12] MEDS: DULOXETINE HCL 60 MG CAP PO SCH (08:01)
[2017-01-12] MEDS: FLUTICASONE HFA 110MCG INHALER INH SCH ×2 (08:01→21:10)
[2017-01-12] MEDS: GABAPENTIN 100 MG CAP PO SCH ×3 (08:02→21:09)
[2017-01-12] MEDS: PANTOprazole SOD 40 MG TAB PO SCH (08:02)
[2017-01-12] MEDS: SERTRALINE HCL 100 MG TAB PO SCH (08:03)
[2017-01-12] MEDS: METOPROLOL SUCC 25MG EXT REL TAB PO SCH ×2 (08:03→21:10)
[2017-01-12 08:05] LABS: HEMATOCRIT 35.5 % (37-47); MEAN CELL VOLUME 86.6 fL (80-100); MEAN CORPUSCULAR HEMOGLOBIN 28.5 pg (25-34); MEAN PLATELET VOLUME 9.8 fL (7.4-10.4); PLATELET COUNT 133 K/uL (130-400); WHITE BLOOD COUNT 5.52 K/uL (4.8-10.8)
[2017-01-12 08:33] LABS: BUN/CREATININE RATIO 26.3 (10-20); CALCIUM 9.1 mg/dl (8.5-10.1); CREATININE 0.93 mg/dl (0.60-1.20); POTASSIUM 4.1 mmol/L (3.5-5.1)
--- NOTE | 2017-01-12 11:20 | Medical Consult ---
Consultation Date of Consultation: Jan 12, 2017. Attending Physician: Loida Edwards MD Reason for Consultation: Yeast in urine, need to tx? History of Present Illness Patient is a 56-year-old female who presents the emergency department with complaints of shortness of breath who was recently diagnosed with a UTI and given Cipro as an outpatient. She did not take these medications prior to admission. She had also been experiencing chest heaviness, chest pain, back pain, abdominal pain, and dysuria. The patient states that her dysuria has not improved. She continues to have abdominal pain, especially in the lower bilateral abdomen. Since admission, the patient did have blood cultures which are showing no growth. Her urine culture is growing yeast not Samantha albicans. Her urinalysis showed mucus, 2+ bacteria, greater than 30 white blood cells, large leukocyte esterase, and positive for nitrite. She did had a hepatitis C screen which was negative. A CT of the abdomen/pelvis showed persistent right-sided hydronephrosis suggestive of UPJ obstruction. A right- sided perinephric edema was also noted and a superimposed infection could not be excluded on exam. On admission, the patient was started on IV ceftriaxone and then changed to IV cefepime. She states that she has not noted any improvement. White blood cell count on admission was 13.55, and it is 5.52 today. She was having fever on admission as well, but has been afebrile today. I did speak with Dr. Edwards about this patient as well. Past Medical/Surgical History Medical Problems: (1) Fever Status: Acute Medical Problems: (1) Hx Perforated diverticulitis (2) Intra-abdominal free air (3) Rectosigmoid resection (4) Sepsis Surgical Problems: (1) Colostomy in place Family History Psychiatric disorder Noncontributory Social History Smoking Status: Never Smoker Smokeless Tobacco Use: No Drug Use: none Marital Status: Housing Status: lives with family Occupation Status: employed Allergies Coded Allergies: Adhesives (Unverified Allergy, Intermediate, blistering, 05/25/16) Sulfa Antibiotics (Verified Allergy, Intermediate, swelling, 05/25/16) Penicillins (Verified Allergy, Unknown, ZOSYN = FLUSHED FASE, ITCHING, 05/25) FLUSHED FACE, ITCHING TOLERATED PRIMAXIN 2013 ADMISSION Home Medications Reported Home Medications Medications Dose Route/Sig Max Daily Dose Days Date Category Dose Instructions Flovent Hfa (Fluticasone Propionate) 120 Puffs/51815 Mcg Aero 2 Puffs INH BID 01/08/17 Reported Imitrex (Sumatriptan Succinate) 25 Mg Tab 50 Mg PO UD PRN 01/08/17 Reported UP TO ONE DOSE DIRECTED, MAY REPEAT AFTER 2 HOURS IF NEEDED Gabapentin 300 Mg Cap 600 Mg PO TID 01/08/17 Reported Amitriptyline HCl 50 Mg Tab 50 Mg PO HS 01/08/17 Reported Duloxetine HCl 60 Mg Cap 60 Mg PO DAILY 01/08/17 Reported Sertraline HCl 100 Mg Tab 200 Mg PO DAILY 01/08/17 Reported Trazodone (Trazodone HCl) 50 Mg Tab 100 Mg PO HS 01/08/17 Reported Atorvastatin Calcium (Atorvastatin) 20 Mg Tab 20 Mg PO DAILY 01/08/17 Reported Metoprolol Succinate ER (Metoprolol Succinate) 25 Mg Tabcr 37.5 Mg PO BID 01/08/17 Reported Metformin HCl 500 Mg Tab 500 Mg PO BID 01/08/17 Reported TAKE THIS MEDICATION TWICE DAILY WITH MORNING AND EVENING MEALS Aspirin Ec (Aspirin) 81 Mg Tab 81 Mg PO DAILY 01/08/17 Reported Prilosec (Omeprazole) 40 Mg Cap 40 Mg PO QAM 05/05/16 Reported Lorazepam 0.5 Mg Tab 0.5-1 Mg PO Q6H PRN 12/20/14 Reported Current Inpatient Medications Current Inpatient Medications Medications (Trade) Dose Ordered Sig/Nessa Route Start Time Stop Time Status Last Admin Dose Admin Metoprolol Succinate (Toprol Xl Tab) 37.5 mg BID PO 01/09/17 09:00 02/08/17 08:59 01/12/17 08:03 37.5 MG Ipratropium [place] (Atrovent 0.02% 0.5MG/2.5ML Neb) 0.5 mg Q4H PRN INH 01/08/17 23:45 02/07/17 23:44 Levalbuterol (Xopenex 1.25MG/ 0.5ML Neb) 1.25 mg Q4H PRN INH 01/08/17 23:45 02/07/17 23:44 Heparin Sodium (Porcine) (Heparin Sq 5000 Unit/0.5ml) 5,000 unit Q8 SQ 01/09/17 06:00 02/08/17 05:59 01/12/17 06:43 5,000 UNIT Acetaminophen (Tylenol Tab) 650 mg Q4H PRN PO 01/09/17 00:30 02/08/17 00:29 01/12/17 07:42 650 MG Nitroglycerin (Nitrostat Tab) 0.4 mg UD PRN SL 01/09/17 00:30 02/08/17 00:29 Insulin Aspart (novoLOG ASPART) SLIDING SCALE If C... ACHS SC 01/09/17 07:00 02/08/17 06:59 01/10/17 07:00 1 UNITS Glucose (Glucose 40% Gel) 15-30 GRAMS 15 GRAMS... UD PRN PO 01/09/17 00:30 02/08/17 00:29 Glucose (Glucose Chew Tab) 4-8 Tablets 4 Tabl... UD PRN PO 01/09/17 00:30 02/08/17 00:29 Dextrose (Dextrose 50% 50ML Syringe) 25-50ML OF 50% DW IV FOR... UD PRN IV 01/09/17 00:30 02/08/17 00:29 Glucagon (Glucagon Inj) 1 mg UD PRN SQ 01/09/17 00:30 02/08/17 00:29 Amitriptyline HCl (Elavil Tab) 50 mg HS PO 01/09/17 21:00 02/08/17 20:59 01/11/17 20:46 50 MG Aspirin (Ecotrin Tab) 81 mg DAILY PO 01/09/17 09:00 02/08/17 08:59 01/12/17 08:01 81 MG Atorvastatin Calcium (Lipitor Tab) 20 mg DAILY PO 01/09/17 09:00 02/08/17 08:59 01/12/17 08:01 20 MG Duloxetine HCl (Cymbalta Cap) 60 mg DAILY PO 01/09/17 09:00 02/08/17 08:59 01/12/17 08:01 60 MG Fluticasone Propionate (Flovent Hfa 110MCG Inhaler) 2 puffs BID INH 01/09/17 09:00 02/08/17 08:59 01/12/17 08:01 2 PUFFS Sertraline HCl (Zoloft Tab) 200 mg DAILY PO 01/09/17 09:00 02/08/17 08:59 01/12/17 08:03 200 MG Trazodone HCl (Desyrel Tab) 100 mg HS PO 01/09/17 21:00 02/08/17 20:59 01/11/17 20:50 100 MG Pantoprazole Sodium (Protonix Tab) 40 mg QAM PO 01/09/17 09:00 02/08/17 08:59 01/12/17 08:02 40 MG Gabapentin (Neurontin Cap) 200 mg TID PO 01/09/17 09:00 02/08/17 08:59 01/12/17 08:02 200 MG Tramadol HCl (Ultram Tab) 25 mg Q6H PRN PO 01/09/17 01:30 02/08/17 01:29 01/11/17 19:24 25 MG Levofloxacin 1 ea 1 ea UD PRN N/A 01/10/17 17:22 02/09/17 17:21 Levofloxacin/Prmx (Levaquin / D5W/ Premixed D5W) 50 ml @ 50 mls/hr Q24H IV 01/10/17 22:00 01/17/17 22:59 01/11/17 20:50 50 MLS/HR Review of Systems Constitutional: + chills, + fatigue, + fever, + sweats, + weakness Eyes: No worsening of vision ENT: No hearing loss Respiratory: + dyspnea on exertion, + shortness of breath Cardiovascular: No chest pain, No palpitations Abdomen: + nausea, + pain, + vomiting ([employer]LE[employer]- now resolved), No diarrhea Musculoskeletal: No swelling Genitourinary - Female: + dysuria Integumentary: No itch, No rash Physical Exam Date Time Temp Pulse Resp B/P Pulse Ox O2 Delivery O2 Flow Rate FiO2 01/12/17 08:04 36.5 68 16 122/80 92 Room Air 01/12/17 08:03 92 Room Air 01/12/17 08:00 Nasal Cannula 2.0 01/12/17 01:37 100 Nasal Cannula 2.0 01/12/17 00:22 36.5 73 18 115/69 86 Room Air 01/12/17 00:00 100 Nasal Cannula 2.0 01/11/17 16:20 Nasal Cannula 2.0 2/23/17 15:39 36.7 70 18 118/71 90 Room Air General Appearance: no apparent distress, + obese Head: normocephalic, atraumatic Eyes: normal inspection, sclerae normal ENT: hearing grossly normal Neck: supple, trachea midline Respiratory/Chest: chest non-tender, lungs clear, normal breath sounds, no respiratory distress, no accessory muscle use Cardiovascular: regular rate, rhythm Abdomen/GI: normal bowel sounds, non tender, soft Back: normal inspection Extremities/Musculoskelatal: normal range of motion Neurologic/Psych: alert, normal mood/affect Skin: normal color, warm/dry, no rash Laboratory Results CT SCAN OF THE ABDOMEN AND PELVIS WITHOUT CONTRAST CLINICAL HISTORY: Generalized abdominal pain COMPARISON STUDY: 11/11/2014 TECHNIQUE: CT scan of the abdomen and pelvis was performed from the lung bases to the proximal femurs. Images are reviewed in the axial, sagittal, and coronal planes. IV contrast was not administered for this examination. CT DOSE: 572.42 mGy.cm FINDINGS: Lower chest: The heart is mildly enlarged. Liver: There is mild hepatic steatosis. No focal masses are visualized. Gallbladder: Unremarkable. Spleen: The spleen is enlarged measuring 14 cm. Pancreas: There is a 2.5 cm cystic lesion within the pancreatic head. Pancreatic MRI is recommended in follow-up Adrenal glands: Unremarkable. Kidneys: There is persistent right-sided hydronephrosis with an extrarenal pelvis in a configuration suggesting a UPJ type obstruction. There is increasing right-sided perinephric edema. No calculi are visualized. Bowel: There are no transition zones indicate bowel obstruction. There are no findings to indicate acute appendicitis. There are no findings to indicate acute diverticulitis. Surgical clips are visualized the region of the sigmoid. Several ventral hernias are visualized. Peritoneum: There is no intraperitoneal free air or abdominal ascites. Vasculature: The abdominal aorta is normal in course and caliber. Adenopathy: None. Pelvic viscera: The bladder, and pelvic viscera are unremarkable. Skeletal structures: No destructive osseous lesions are seen. IMPRESSION: 1. Persistent right-sided hydronephrosis with extra renal pelvis in a configuration suggesting a UPJ obstruction. There is increasing right-sided perinephric edema, and superimposed infection cannot be excluded. Correlation with urinalysis is recommended 2. 2.5 cm cystic lesion within the pancreatic head. Further workup is advocated. This finding was not described on the preliminary report, and therefore this report will be called. 3. No evidence of bowel obstruction. No evidence of free air 4. Splenomegaly 5. Hepatic steatosis 6. Multiple ventral hernias. Item Value Date Time Urine Culture - Preliminary Resulted 01/09/17 0520 Urine , Clean Catch Yeast Not Samantha Albicans Blood Culture - Preliminary Resulted 01/09/17 0008 Blood NO GROWTH TO DATE. Blood Culture - Preliminary Resulted 01/09/17 0000 Blood NO GROWTH TO DATE. Last 24 Hours Test 01/11/17 12:10 01/11/17 16:29 01/11/17 20:00 01/12/17 07:19 Bedside Glucose 92 mg/dl 135 mg/dl 140 mg/dl White Blood Count 5.52 K/uL Red Blood Count 4.10 M/uL Hemoglobin 11.7 g/dL Hematocrit 35.5 % Mean Corpuscular Volume 86.6 fL Mean Corpuscular Hemoglobin 28.5 pg Mean Corpuscular Hemoglobin Concent 33.0 g/dl RDW Standard Deviation 49.2 fL RDW Coefficient of Variation 15.5 % Platelet Count 133 K/uL Mean Platelet Volume 9.8 fL Sodium Level 136 mmol/L Potassium Level 4.1 mmol/L Chloride Level 102 mmol/L Carbon Dioxide Level 26 mmol/L Anion Gap 8.0 mmol/L Blood Urea Nitrogen 25 mg/dl Creatinine 0.93 mg/dl Est Creatinine Clear Calc Drug Dose 59.0 ml/min Estimated GFR () 78.5 Estimated GFR (Non- 67.7 BUN/Creatinine Ratio 26.3 Random Glucose 101 mg/dl Calcium Level 9.1 mg/dl Test 01/12/17 07:32 Bedside Glucose 106 mg/dl Assessment & Plan Patient with yeast UTI and probable right-sided pyelonephritis. She is currently on Levaquin, and she feels that she has only slightly improved. She continues to have abdominal pain, sweats, chills, and dysuria. Seems likely that this patient does need treated for Non-Samantha Albicans yeast. Due to severity of symptoms and findings on CT scan of the abdomen/pelvis of right- sided perinephric edema, feel that she likely would benefit from IV Caspofungin especially with concerns of resistance being a non-albicans yeast. Will start IV Caspofungin. She likely will need 14 days of antifungal therapy. Will also start Amphotericin bladder irrigation x 5 days due to concerns for resistant yeast cystitis. Dr. Boone agrees with these interventions. We will follow. PROVIDER ADDENDUM: Patient examined and reviewed with Ms. Barcenas. Agree with above assessment. Have recommended amphotericin bladder irrigation to treat fungal cystitis.
[2017-01-12] MEDS ORDERED: AMPHOTERICIN B IRRIGATION IR SCH (12:00)
[2017-01-12] MEDS ORDERED: STERILE WATER IR SCH (12:00)
[2017-01-12] MEDS ORDERED: CASPOFUNGIN INJ 70 MG in SODIUM CHLORIDE 0.9% 250ML 250 ML IV ONE (12:00)
[2017-01-12] MEDS: AMPHOTERICIN B IRRIGATION INJ 50 MG in STERILE WATER 1000 ML 1,000 ML IR SCH (14:50)
--- NOTE | 2017-01-12 15:55 | Progress Note ---
Medicine Progress Note Date & Time of Visit: Jan 12, 2017 at 15:53. Subjective Patient seen and examined. Is without specific complaints. Objective Last 8 Hrs Date Time Temp Pulse Resp B/P Pulse Ox O2 Delivery O2 Flow Rate FiO2 01/12/17 15:44 36.3 68 16 134/84 91 Room Air 01/12/17 08:04 36.5 68 16 122/80 92 Room Air 01/12/17 08:03 92 Room Air 01/12/17 08:00 Nasal Cannula 2.0 Physical Exam: General-awake; alert; NAD Eyes-EOMI; no scleral icterus Neck-no stridor; trachea midline Lungs-CTA bilaterally; no wheezes/crackles Heart-RRR; no m/r/g Abdomen-soft; nBS; ventral incisional hernias; NT Extremities-no c/c/e; no deformity Neuro-no gross focal deficits Laboratory Results: Last 24 Hours Test 01/11/17 16:29 01/11/17 20:00 01/12/17 07:19 01/12/17 07:32 Bedside Glucose 135 mg/dl 140 mg/dl 106 mg/dl White Blood Count 5.52 K/uL Red Blood Count 4.10 M/uL Hemoglobin 11.7 g/dL Hematocrit 35.5 % Mean Corpuscular Volume 86.6 fL Mean Corpuscular Hemoglobin 28.5 pg Mean Corpuscular Hemoglobin Concent 33.0 g/dl RDW Standard Deviation 49.2 fL RDW Coefficient of Variation 15.5 % Platelet Count 133 K/uL Mean Platelet Volume 9.8 fL Sodium Level 136 mmol/L Potassium Level 4.1 mmol/L Chloride Level 102 mmol/L Carbon Dioxide Level 26 mmol/L Anion Gap 8.0 mmol/L Blood Urea Nitrogen 25 mg/dl Creatinine 0.93 mg/dl Est Creatinine Clear Calc Drug Dose 59.0 ml/min Estimated GFR () 78.5 Estimated GFR (Non- 67.7 BUN/Creatinine Ratio 26.3 Random Glucose 101 mg/dl Calcium Level 9.1 mg/dl Test 01/12/17 11:23 Bedside Glucose 77 mg/dl Assessment & Plan Sepsis - resolved - likely related to underlying complicated UTI - dirty urinalysis - blood cultures ngtd - urine culture with 30K of yeast, not tita - de-escalated cefepime to levofloxacin --> discontinued given urine culture results - consulted ID - start caspofungin - start amphotericin bladder irrigation Elevated troponin - Cardiology consulted - 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 - downtrended - asymptomatic - continue aspirin, metoprolol and atorvastatin - TTE with stable findings OSBALDO - possibly 2/2 diuresis - hold on further diuresis at this time as patient does not appear to be clinically volume overloaded - resolved Type 2 DM - hold metformin - SSI while inpatient Pancreatic cystic lesion - MRCP with 2cm cystic lesion; recommending EUS - will set up with outpatient GI Depression - continue amitriptyline, duloxetine, sertraline, trazodone - patient declines psychiatry evaluation at this time DVT prophylaxis with heparin sq Consultants: Cardiology Infectious disease Procedures: CT a/p 1. Persistent right-sided hydronephrosis with extra renal pelvis in a configuration suggesting a UPJ obstruction. There is increasing right-sided perinephric edema, and superimposed infection cannot be excluded. Correlation with urinalysis is recommended 2. 2.5 cm cystic lesion within the pancreatic head. Further workup is advocated. This finding was not described on the preliminary report, and therefore this report will be called. 3. No evidence of bowel obstruction. No evidence of free air 4. Splenomegaly 5. Hepatic steatosis 6. Multiple ventral hernias. CT head No acute intracranial abnormality. MRCP 1. Gallstones within the gallbladder lumen. 2. The biliary and pancreatic ductal systems appear unremarkable. 3. 2.1 cm cystic lesion within the pancreatic head medially adjacent to the pancreatic duct. 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 4. Endoscopic ultrasonography of the pancreas is suggested as follow-up Current Inpatient Medications: Current Inpatient Medications Medications (Trade) Dose Ordered Sig/Nessa Route Start Time Stop Time Status Last Admin Dose Admin Metoprolol Succinate (Toprol Xl Tab) 37.5 mg BID PO 01/09/17 09:00 02/08/17 08:59 01/12/17 08:03 37.5 MG Ipratropium [place] (Atrovent 0.02% 0.5MG/2.5ML Neb) 0.5 mg Q4H PRN INH 01/08/17 23:45 02/07/17 23:44 Levalbuterol (Xopenex 1.25MG/ 0.5ML Neb) 1.25 mg Q4H PRN INH 01/08/17 23:45 02/07/17 23:44 Heparin Sodium (Porcine) (Heparin Sq 5000 Unit/0.5ml) 5,000 unit Q8 SQ 01/09/17 06:00 02/08/17 05:59 01/12/17 14:55 5,000 UNIT Acetaminophen (Tylenol Tab) 650 mg Q4H PRN PO 01/09/17 00:30 02/08/17 00:29 01/12/17 07:42 650 MG Nitroglycerin (Nitrostat Tab) 0.4 mg UD PRN SL 01/09/17 00:30 02/08/17 00:29 Insulin Aspart (novoLOG ASPART) SLIDING SCALE If C... ACHS SC 01/09/17 07:00 02/08/17 06:59 01/10/17 07:00 1 UNITS Glucose (Glucose 40% Gel) 15-30 GRAMS 15 GRAMS... UD PRN PO 01/09/17 00:30 02/08/17 00:29 Glucose (Glucose Chew Tab) 4-8 Tablets 4 Tabl... UD PRN PO 01/09/17 00:30 02/08/17 00:29 Dextrose (Dextrose 50% 50ML Syringe) 25-50ML OF 50% DW IV FOR... UD PRN IV 01/09/17 00:30 02/08/17 00:29 Glucagon (Glucagon Inj) 1 mg UD PRN SQ 01/09/17 00:30 02/08/17 00:29 Amitriptyline HCl (Elavil Tab) 50 mg HS PO 01/09/17 21:00 02/08/17 20:59 01/11/17 20:46 50 MG Aspirin (Ecotrin Tab) 81 mg DAILY PO 01/09/17 09:00 02/08/17 08:59 01/12/17 08:01 81 MG Atorvastatin Calcium (Lipitor Tab) 20 mg DAILY PO 01/09/17 09:00 02/08/17 08:59 01/12/17 08:01 20 MG Duloxetine HCl (Cymbalta Cap) 60 mg DAILY PO 01/09/17 09:00 02/08/17 08:59 01/12/17 08:01 60 MG Fluticasone Propionate (Flovent Hfa 110MCG Inhaler) 2 puffs BID INH 01/09/17 09:00 02/08/17 08:59 01/12/17 08:01 2 PUFFS Sertraline HCl (Zoloft Tab) 200 mg DAILY PO 01/09/17 09:00 02/08/17 08:59 01/12/17 08:03 200 MG Trazodone HCl (Desyrel Tab) 100 mg HS PO 01/09/17 21:00 02/08/17 20:59 01/11/17 20:50 100 MG Pantoprazole Sodium (Protonix Tab) 40 mg QAM PO 01/09/17 09:00 02/08/17 08:59 01/12/17 08:02 40 MG Gabapentin (Neurontin Cap) 200 mg TID PO 01/09/17 09:00 02/08/17 08:59 01/12/17 14:50 200 MG Tramadol HCl 25 mg 25 mg Q6H PRN PO 01/09/17 01:30 02/08/17 01:29 01/11/17 19:24 25 MG Caspofungin 50 mg/ Sodium Chloride 260 ml @ 250 mls/hr DAILY@1200 IV 01/13/17 12:00 01/22/17 11:59 Amphotericin B/ Sterile [place] (Fungizone Irrigation Inj/ Sterile Water 1000 ml) 1,000 ml @ 41.667 mls/ hr DAILY@1400 IR 01/12/17 14:00 01/17/17 13:59 01/12/17 14:50 41.667 MLS/HR
[2017-01-12] MEDS: AMITRIPTYLINE HCL 50 MG TAB PO SCH (21:09)
[2017-01-12] MEDS: TRAZODONE HCL 50 MG TAB PO SCH (21:11)
[2017-01-13] MEDS: HEPARIN SOD 5000 UNIT/0.5 ML CARP SQ SCH ×3 (06:10→22:20)
[2017-01-13] MEDS: INSULIN ASPART 100 UNITS/ML 3 ML PEN SC SCH ×4 (06:30→22:15)
[2017-01-13 07:57] VITALS: BP 136/80; PULSE 80; TEMP 36.6; O2SAT 95
[2017-01-13 08:30] VITALS: O2SAT 95
[2017-01-13] MEDS: DULOXETINE HCL 60 MG CAP PO SCH (08:57)
[2017-01-13] MEDS: ATORVASTATIN 20 MG TAB PO SCH (08:57)
[2017-01-13] MEDS: GABAPENTIN 100 MG CAP PO SCH ×3 (08:57→20:34)
[2017-01-13] MEDS: SERTRALINE HCL 100 MG TAB PO SCH (08:57)
[2017-01-13] MEDS: PANTOprazole SOD 40 MG TAB PO SCH (08:57)
[2017-01-13] MEDS: ASPIRIN 81 MG ECTAB PO SCH (08:57)
[2017-01-13] MEDS: METOPROLOL SUCC 25MG EXT REL TAB PO SCH ×2 (08:57→20:34)
[2017-01-13] MEDS: FLUTICASONE HFA 110MCG INHALER INH SCH ×2 (08:57→20:33)
[2017-01-13] MEDS: TRAMADOL HCL 50 MG TAB PO PRN ×2 (08:58→20:43)
[2017-01-13 09:10] LABS: HEMATOCRIT 36.1 % (37-47); MEAN CELL VOLUME 87.8 fL (80-100); MEAN PLATELET VOLUME 10.4 fL (7.4-10.4); PLATELET COUNT 164 K/uL (130-400); RED BLOOD COUNT 4.11 M/uL (4.2-5.4)
[2017-01-13 09:23] VITALS: O2SAT 95
[2017-01-13 09:38] LABS: CALCIUM 8.8 mg/dl (8.5-10.1); CREATININE 0.91 mg/dl (0.60-1.20); POTASSIUM 4.3 mmol/L (3.5-5.1)
[2017-01-13] MEDS: CASPOFUNGIN INJ 50 MG in SODIUM CHLORIDE 0.9% 250ML 250 ML IV SCH (12:45)
[2017-01-13] MEDS: AMPHOTERICIN B IRRIGATION INJ 50 MG in STERILE WATER 1000 ML 1,000 ML IR SCH (14:27)
[2017-01-13 14:59] VITALS: BP 124/82; PULSE 66; TEMP 36.5; O2SAT 96
[2017-01-13] MEDS: AMITRIPTYLINE HCL 50 MG TAB PO SCH (20:33)
--- NOTE | 2017-01-13 21:12 | Progress Note ---
Medicine Progress Note Date & Time of Visit: Jan 13, 2017 at 21:10. Subjective Patient seen and examined. notes intermittent confusion of the patient for the past several months. Patient noted headache earlier this morning that resolved. Objective Last 8 Hrs Date Time Temp Pulse Resp B/P Pulse Ox O2 Delivery O2 Flow Rate FiO2 01/13/17 16:15 Room Air 01/13/17 14:59 36.5 66 20 124/82 96 Room Air Physical Exam: General-awake; alert; NAD Eyes-EOMI; no scleral icterus Neck-no stridor; trachea midline Lungs-CTA bilaterally; no wheezes/crackles Heart-RRR; no m/r/g Abdomen-soft; nBS; ventral incisional hernias; NT Extremities-no c/c/e; no deformity Neuro-no focal deficits Laboratory Results: Last 24 Hours Test 01/13/17 07:27 01/13/17 08:34 01/13/17 11:31 01/13/17 16:37 Bedside Glucose 86 mg/dl 100 mg/dl 76 mg/dl White Blood Count 6.50 K/uL Red Blood Count 4.11 M/uL Hemoglobin 11.9 g/dL Hematocrit 36.1 % Mean Corpuscular Volume 87.8 fL Mean Corpuscular Hemoglobin 29.0 pg Mean Corpuscular Hemoglobin Concent 33.0 g/dl RDW Standard Deviation 51.0 fL RDW Coefficient of Variation 15.8 % Platelet Count 164 K/uL Mean Platelet Volume 10.4 fL Sodium Level 138 mmol/L Potassium Level 4.3 mmol/L Chloride Level 106 mmol/L Carbon Dioxide Level 24 mmol/L Anion Gap 8.0 mmol/L Blood Urea Nitrogen 19 mg/dl Creatinine 0.91 mg/dl Est Creatinine Clear Calc Drug Dose 60.0 ml/min Estimated GFR () 80.6 Estimated GFR (Non- 69.5 BUN/Creatinine Ratio 21.0 Random Glucose 130 mg/dl Calcium Level 8.8 mg/dl Test 01/13/17 20:12 Bedside Glucose 110 mg/dl Assessment & Plan Sepsis - resolved - likely related to underlying complicated UTI - dirty urinalysis - blood cultures ngtd - urine culture with 30K of yeast, not tita - de-escalated cefepime to levofloxacin --> discontinued given urine culture results - consulted ID - continue caspofungin - continue amphotericin bladder irrigation Elevated troponin - Cardiology consulted - 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 - downtrended - asymptomatic - continue aspirin, metoprolol and atorvastatin - TTE with stable findings OSBALDO - possibly 2/2 diuresis on admission - hold on further diuresis at this time as patient does not appear to be clinically volume overloaded - resolved Type 2 DM - hold metformin - SSI while inpatient Pancreatic cystic lesion - MRCP with 2cm cystic lesion; recommending EUS - will set up with outpatient GI Depression - continue amitriptyline, duloxetine, sertraline, trazodone - patient declines psychiatry evaluation at this time DVT prophylaxis with heparin sq Consultants: Cardiology Infectious disease Procedures: CT a/p 1. Persistent right-sided hydronephrosis with extra renal pelvis in a configuration suggesting a UPJ obstruction. There is increasing right-sided perinephric edema, and superimposed infection cannot be excluded. Correlation with urinalysis is recommended 2. 2.5 cm cystic lesion within the pancreatic head. Further workup is advocated. This finding was not described on the preliminary report, and therefore this report will be called. 3. No evidence of bowel obstruction. No evidence of free air 4. Splenomegaly 5. Hepatic steatosis 6. Multiple ventral hernias. CT head No acute intracranial abnormality. MRCP 1. Gallstones within the gallbladder lumen. 2. The biliary and pancreatic ductal systems appear unremarkable. 3. 2.1 cm cystic lesion within the pancreatic head medially adjacent to the pancreatic duct. 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 4. Endoscopic ultrasonography of the pancreas is suggested as follow-up Current Inpatient Medications: Current Inpatient Medications Medications (Trade) Dose Ordered Sig/Nessa Route Start Time Stop Time Status Last Admin Dose Admin Metoprolol Succinate (Toprol Xl Tab) 37.5 mg BID PO 01/09/17 09:00 02/08/17 08:59 01/13/17 20:34 37.5 MG Ipratropium [place] (Atrovent 0.02% 0.5MG/2.5ML Neb) 0.5 mg Q4H PRN INH 01/08/17 23:45 02/07/17 23:44 Levalbuterol (Xopenex 1.25MG/ 0.5ML Neb) 1.25 mg Q4H PRN INH 01/08/17 23:45 02/07/17 23:44 Heparin Sodium (Porcine) (Heparin Sq 5000 Unit/0.5ml) 5,000 unit Q8 SQ 01/09/17 06:00 02/08/17 05:59 01/13/17 14:25 5,000 UNIT Acetaminophen (Tylenol Tab) 650 mg Q4H PRN PO 01/09/17 00:30 02/08/17 00:29 01/12/17 07:42 650 MG Nitroglycerin (Nitrostat Tab) 0.4 mg UD PRN SL 01/09/17 00:30 02/08/17 00:29 Insulin Aspart (novoLOG ASPART) SLIDING SCALE If C... ACHS SC 01/09/17 07:00 02/08/17 06:59 01/12/17 17:42 2 UNITS Glucose (Glucose 40% Gel) 15-30 GRAMS 15 GRAMS... UD PRN PO 01/09/17 00:30 02/08/17 00:29 Glucose (Glucose Chew Tab) 4-8 Tablets 4 Tabl... UD PRN PO 01/09/17 00:30 02/08/17 00:29 Dextrose (Dextrose 50% 50ML Syringe) 25-50ML OF 50% DW IV FOR... UD PRN IV 01/09/17 00:30 02/08/17 00:29 Glucagon (Glucagon Inj) 1 mg UD PRN SQ 01/09/17 00:30 02/08/17 00:29 Amitriptyline HCl (Elavil Tab) 50 mg HS PO 01/09/17 21:00 02/08/17 20:59 01/13/17 20:33 50 MG Aspirin (Ecotrin Tab) 81 mg DAILY PO 01/09/17 09:00 02/08/17 08:59 01/13/17 08:57 81 MG Atorvastatin Calcium (Lipitor Tab) 20 mg DAILY PO 01/09/17 09:00 02/08/17 08:59 01/13/17 08:57 20 MG Duloxetine HCl (Cymbalta Cap) 60 mg DAILY PO 01/09/17 09:00 02/08/17 08:59 01/13/17 08:57 60 MG Fluticasone Propionate (Flovent Hfa 110MCG Inhaler) 2 puffs BID INH 01/09/17 09:00 02/08/17 08:59 01/13/17 20:33 2 PUFFS Sertraline HCl (Zoloft Tab) 200 mg DAILY PO 01/09/17 09:00 02/08/17 08:59 01/13/17 08:57 200 MG Trazodone HCl (Desyrel Tab) 100 mg HS PO 01/09/17 21:00 02/08/17 20:59 01/12/17 21:11 100 MG Pantoprazole Sodium (Protonix Tab) 40 mg QAM PO 01/09/17 09:00 02/08/17 08:59 01/13/17 08:57 40 MG Gabapentin (Neurontin Cap) 200 mg TID PO 01/09/17 09:00 02/08/17 08:59 01/13/17 20:34 200 MG Tramadol HCl 25 mg 25 mg Q6H PRN PO 01/09/17 01:30 02/08/17 01:29 01/13/17 20:43 25 MG Caspofungin 50 mg/ Sodium Chloride 260 ml @ 250 mls/hr DAILY@1200 IV 01/13/17 12:00 01/22/17 11:59 01/13/17 12:45 250 MLS/HR Amphotericin B/ Sterile Water (Fungizone Irrigation Inj/ Sterile Water 1000 ml) 1,000 ml @ 41.667 mls/ hr DAILY@1400 IR 01/12/17 14:00 01/17/17 13:59 01/13/17 14:27 41.667 MLS/HR
[2017-01-13] MEDS: TRAZODONE HCL 50 MG TAB PO SCH (22:24)
[2017-01-14 00:04] VITALS: BP 130/85; PULSE 102; TEMP 36.4; O2SAT 92
[2017-01-14] MEDS: HEPARIN SOD 5000 UNIT/0.5 ML CARP SQ SCH ×3 (05:49→21:08)
[2017-01-14 06:18] LABS: HEMATOCRIT 35.1 % (37-47); MEAN CELL VOLUME 88.6 fL (80-100); MEAN CORPUSCULAR HEMOGLOBIN 28.8 pg (25-34); MEAN CORPUSCULAR HGB CONC 32.5 g/dl (32-36); PLATELET COUNT 177 K/uL (130-400); RED BLOOD COUNT 3.96 M/uL (4.2-5.4); WHITE BLOOD COUNT 7.06 K/uL (4.8-10.8)
[2017-01-14] MEDS: INSULIN ASPART 100 UNITS/ML 3 ML PEN SC SCH ×4 (06:30→21:00)
[2017-01-14 06:33] LABS: BUN/CREATININE RATIO 19.6 (10-20); CALCIUM 8.2 mg/dl (8.5-10.1); CREATININE 0.9 mg/dl (0.60-1.20); POTASSIUM 4.8 mmol/L (3.5-5.1)
[2017-01-14 08:17] VITALS: BP 114/73; PULSE 62; TEMP 36.7; O2SAT 96
[2017-01-14] MEDS: TRAMADOL HCL 50 MG TAB PO PRN (08:23)
[2017-01-14] MEDS: ASPIRIN 81 MG ECTAB PO SCH (08:24)
[2017-01-14] MEDS: FLUTICASONE HFA 110MCG INHALER INH SCH ×2 (08:24→21:01)
[2017-01-14] MEDS: DULOXETINE HCL 60 MG CAP PO SCH (08:24)
[2017-01-14] MEDS: SERTRALINE HCL 100 MG TAB PO SCH (08:24)
[2017-01-14] MEDS: GABAPENTIN 100 MG CAP PO SCH ×3 (08:25→21:06)
[2017-01-14] MEDS: ATORVASTATIN 20 MG TAB PO SCH (08:25)
[2017-01-14] MEDS: METOPROLOL SUCC 25MG EXT REL TAB PO SCH ×2 (08:25→21:04)
[2017-01-14] MEDS: PANTOprazole SOD 40 MG TAB PO SCH (08:25)
[2017-01-14] MEDS: CASPOFUNGIN INJ 50 MG in SODIUM CHLORIDE 0.9% 250ML 250 ML IV SCH (11:48)
[2017-01-14] MEDS: AMPHOTERICIN B IRRIGATION INJ 50 MG in STERILE WATER 1000 ML 1,000 ML IR SCH (13:52)
[2017-01-14 16:00] VITALS: BP 141/78; PULSE 61; TEMP 36.8; O2SAT 95
--- NOTE | 2017-01-14 16:52 | Progress Note ---
Medicine Progress Note Date & Time of Visit: Jan 14, 2017 at 16:49. Subjective Patient seen and examined. Would like to take a shower. Does not voice any specific complaints, but overall feels about the same. Objective Physical Exam: General-awake; alert; NAD Eyes-EOMI; no scleral icterus Neck-no stridor; trachea midline Lungs-CTA bilaterally; no wheezes/crackles Heart-RRR; no m/r/g Abdomen-soft; nBS; mildly tender to palpation ventral incisional hernias Extremities-no c/c/e; no deformity Neuro-no focal deficits Laboratory Results: Last 24 Hours Test 01/13/17 20:12 01/14/17 05:58 01/14/17 11:34 Bedside Glucose 110 mg/dl 87 mg/dl White Blood Count 7.06 K/uL Red Blood Count 3.96 M/uL Hemoglobin 11.4 g/dL Hematocrit 35.1 % Mean Corpuscular Volume 88.6 fL Mean Corpuscular Hemoglobin 28.8 pg Mean Corpuscular Hemoglobin Concent 32.5 g/dl RDW Standard Deviation 51.8 fL RDW Coefficient of Variation 15.9 % Platelet Count 177 K/uL Mean Platelet Volume 10.0 fL Sodium Level 143 mmol/L Potassium Level 4.8 mmol/L Chloride Level 110 mmol/L Carbon Dioxide Level 21 mmol/L Anion Gap 12.0 mmol/L Blood Urea Nitrogen 18 mg/dl Creatinine 0.90 mg/dl Est Creatinine Clear Calc Drug Dose 60.6 ml/min Estimated GFR () 81.7 Estimated GFR (Non- 70.5 BUN/Creatinine Ratio 19.6 Random Glucose 85 mg/dl Calcium Level 8.2 mg/dl Assessment & Plan Sepsis - resolved - likely related to underlying complicated UTI - dirty urinalysis - blood cultures negative - urine culture with 30K of yeast, not tita - de-escalated cefepime to levofloxacin --> discontinued given urine culture results - consulted ID - continue caspofungin - continue amphotericin bladder irrigation Elevated troponin - Cardiology consulted - 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 - downtrended - asymptomatic - continue aspirin, metoprolol and atorvastatin - TTE with stable findings OSBALDO - possibly 2/2 diuresis on admission - hold on further diuresis at this time as patient does not appear to be clinically volume overloaded - resolved Type 2 DM - hold metformin - SSI while inpatient Pancreatic cystic lesion - MRCP with 2cm cystic lesion; recommending EUS - will set up with outpatient GI Depression - continue amitriptyline, duloxetine, sertraline, trazodone - patient declines psychiatry evaluation at this time DVT prophylaxis with heparin sq Consultants: Cardiology Infectious disease Procedures: CT a/p 1. Persistent right-sided hydronephrosis with extra renal pelvis in a configuration suggesting a UPJ obstruction. There is increasing right-sided perinephric edema, and superimposed infection cannot be excluded. Correlation with urinalysis is recommended 2. 2.5 cm cystic lesion within the pancreatic head. Further workup is advocated. This finding was not described on the preliminary report, and therefore this report will be called. 3. No evidence of bowel obstruction. No evidence of free air 4. Splenomegaly 5. Hepatic steatosis 6. Multiple ventral hernias. CT head No acute intracranial abnormality. MRCP 1. Gallstones within the gallbladder lumen. 2. The biliary and pancreatic ductal systems appear unremarkable. 3. 2.1 cm cystic lesion within the pancreatic head medially adjacent to the pancreatic duct. 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 4. Endoscopic ultrasonography of the pancreas is suggested as follow-up Current Inpatient Medications: Current Inpatient Medications Medications (Trade) Dose Ordered Sig/Nessa Route Start Time Stop Time Status Last Admin Dose Admin Metoprolol Succinate (Toprol Xl Tab) 37.5 mg BID PO 01/09/17 09:00 02/08/17 08:59 01/14/17 08:25 37.5 MG Ipratropium [place] (Atrovent 0.02% 0.5MG/2.5ML Neb) 0.5 mg Q4H PRN INH 01/08/17 23:45 02/07/17 23:44 Levalbuterol (Xopenex 1.25MG/ 0.5ML Neb) 1.25 mg Q4H PRN INH 01/08/17 23:45 02/07/17 23:44 Heparin Sodium (Porcine) (Heparin Sq 5000 Unit/0.5ml) 5,000 unit Q8 SQ 01/09/17 06:00 02/08/17 05:59 01/14/17 13:58 5,000 UNIT Acetaminophen (Tylenol Tab) 650 mg Q4H PRN PO 01/09/17 00:30 02/08/17 00:29 01/12/17 07:42 650 MG Nitroglycerin (Nitrostat Tab) 0.4 mg UD PRN SL 01/09/17 00:30 02/08/17 00:29 Insulin Aspart (novoLOG ASPART) SLIDING SCALE If C... ACHS SC 01/09/17 07:00 02/08/17 06:59 01/12/17 17:42 2 UNITS Glucose (Glucose 40% Gel) 15-30 GRAMS 15 GRAMS... UD PRN PO 01/09/17 00:30 02/08/17 00:29 Glucose (Glucose Chew Tab) 4-8 Tablets 4 Tabl... UD PRN PO 01/09/17 00:30 02/08/17 00:29 Dextrose (Dextrose 50% 50ML Syringe) 25-50ML OF 50% DW IV FOR... UD PRN IV 01/09/17 00:30 02/08/17 00:29 Glucagon (Glucagon Inj) 1 mg UD PRN SQ 01/09/17 00:30 02/08/17 00:29 Amitriptyline HCl (Elavil Tab) 50 mg HS PO 01/09/17 21:00 02/08/17 20:59 01/13/17 20:33 50 MG Aspirin (Ecotrin Tab) 81 mg DAILY PO 01/09/17 09:00 02/08/17 08:59 01/14/17 08:24 81 MG Atorvastatin Calcium (Lipitor Tab) 20 mg DAILY PO 01/09/17 09:00 02/08/17 08:59 01/14/17 08:25 20 MG Duloxetine HCl (Cymbalta Cap) 60 mg DAILY PO 01/09/17 09:00 02/08/17 08:59 01/14/17 08:24 60 MG Fluticasone Propionate (Flovent Hfa 110MCG Inhaler) 2 puffs BID INH 01/09/17 09:00 02/08/17 08:59 01/14/17 08:24 2 PUFFS Sertraline HCl (Zoloft Tab) 200 mg DAILY PO 01/09/17 09:00 02/08/17 08:59 01/14/17 08:24 200 MG Trazodone HCl (Desyrel Tab) 100 mg HS PO 01/09/17 21:00 02/08/17 20:59 01/13/17 22:24 100 MG Pantoprazole Sodium (Protonix Tab) 40 mg QAM PO 01/09/17 09:00 02/08/17 08:59 01/14/17 08:25 40 MG Gabapentin (Neurontin Cap) 200 mg TID PO 01/09/17 09:00 02/08/17 08:59 01/14/17 13:55 200 MG Tramadol HCl 25 mg 25 mg Q6H PRN PO 01/09/17 01:30 02/08/17 01:29 01/14/17 08:23 25 MG Caspofungin 50 mg/ Sodium Chloride 260 ml @ 250 mls/hr DAILY@1200 IV 01/13/17 12:00 01/22/17 11:59 01/14/17 11:48 250 MLS/HR Amphotericin B/ Sterile Water (Fungizone Irrigation Inj/ Sterile Water 1000 ml) 1,000 ml @ 41.667 mls/ hr DAILY@1400 IR 01/12/17 14:00 01/17/17 13:59 01/14/17 13:52 41.667 MLS/HR
[2017-01-14] MEDS: AMITRIPTYLINE HCL 50 MG TAB PO SCH (21:03)
[2017-01-14] MEDS: TRAZODONE HCL 50 MG TAB PO SCH (22:00)
[2017-01-15 00:35] VITALS: BP 137/86; PULSE 60; TEMP 36.4; O2SAT 92
[2017-01-15] MEDS: HEPARIN SOD 5000 UNIT/0.5 ML CARP SQ SCH ×3 (06:00→20:55)
[2017-01-15] MEDS: INSULIN ASPART 100 UNITS/ML 3 ML PEN SC SCH ×4 (06:30→20:50)
[2017-01-15] MEDS: FLUTICASONE HFA 110MCG INHALER INH SCH ×2 (07:54→20:47)
[2017-01-15] MEDS: GABAPENTIN 100 MG CAP PO SCH ×3 (07:56→20:48)
[2017-01-15] MEDS: METOPROLOL SUCC 25MG EXT REL TAB PO SCH ×2 (07:56→20:49)
[2017-01-15] MEDS: ASPIRIN 81 MG ECTAB PO SCH (07:56)
[2017-01-15] MEDS: DULOXETINE HCL 60 MG CAP PO SCH (07:56)
[2017-01-15] MEDS: ATORVASTATIN 20 MG TAB PO SCH (07:56)
[2017-01-15] MEDS: SERTRALINE HCL 100 MG TAB PO SCH (07:56)
[2017-01-15 07:57] VITALS: BP 130/82; PULSE 64; TEMP 36.5; O2SAT 97
[2017-01-15] MEDS: PANTOprazole SOD 40 MG TAB PO SCH (07:57)
[2017-01-15] MEDS: TRAMADOL HCL 50 MG TAB PO PRN ×3 (08:06→21:12)
[2017-01-15 08:23] VITALS: O2SAT 97
--- NOTE | 2017-01-15 10:31 | Infectious Disease Progress Nt ---
Progress Note Date of Service Jan 15, 2017. Subjective Pt evaluation today including: conversation w/ patient, physical exam, chart review, lab review, review of studies, conversation w/ multi site leasing consultant (Dr. Edwards ), review of inpatient medication list Patient is feeling slightly better this morning. She continues to be uncomfortable with a Guaman in place. She is also mildly nauseated this morning. She has not vomited or had any diarrhea. Her WBC count this morning is 7.06. Creatinine continues to be stable at 0.90. Urine culture was finalzed with yeast not samantha albicans. All Other Systems: Reviewed and Negative Medications Current Inpatient Medications Medications (Trade) Dose Ordered Sig/Nessa Route Start Time Stop Time Status Last Admin Dose Admin Metoprolol Succinate (Toprol Xl Tab) 37.5 mg BID PO 01/09/17 09:00 02/08/17 08:59 01/15/17 07:56 37.5 MG Ipratropium [place] (Atrovent 0.02% 0.5MG/2.5ML Neb) 0.5 mg Q4H PRN INH 01/08/17 23:45 02/07/17 23:44 Levalbuterol (Xopenex 1.25MG/ 0.5ML Neb) 1.25 mg Q4H PRN INH 01/08/17 23:45 02/07/17 23:44 Heparin Sodium (Porcine) (Heparin Sq 5000 Unit/0.5ml) 5,000 unit Q8 SQ 01/09/17 06:00 02/08/17 05:59 01/14/17 21:08 5,000 UNIT Acetaminophen (Tylenol Tab) 650 mg Q4H PRN PO 01/09/17 00:30 02/08/17 00:29 01/12/17 07:42 650 MG Nitroglycerin (Nitrostat Tab) 0.4 mg UD PRN SL 01/09/17 00:30 02/08/17 00:29 Insulin Aspart (novoLOG ASPART) SLIDING SCALE If C... ACHS SC 01/09/17 07:00 02/08/17 06:59 01/12/17 17:42 2 UNITS Glucose (Glucose 40% Gel) 15-30 GRAMS 15 GRAMS... UD PRN PO 01/09/17 00:30 02/08/17 00:29 Glucose (Glucose Chew Tab) 4-8 Tablets 4 Tabl... UD PRN PO 01/09/17 00:30 02/08/17 00:29 Dextrose (Dextrose 50% 50ML Syringe) 25-50ML OF 50% DW IV FOR... UD PRN IV 01/09/17 00:30 02/08/17 00:29 Glucagon (Glucagon Inj) 1 mg UD PRN SQ 01/09/17 00:30 02/08/17 00:29 Amitriptyline HCl (Elavil Tab) 50 mg HS PO 01/09/17 21:00 02/08/17 20:59 01/14/17 21:03 50 MG Aspirin (Ecotrin Tab) 81 mg DAILY PO 01/09/17 09:00 02/08/17 08:59 01/15/17 07:56 81 MG Atorvastatin Calcium (Lipitor Tab) 20 mg DAILY PO 01/09/17 09:00 02/08/17 08:59 01/15/17 07:56 20 MG Duloxetine HCl (Cymbalta Cap) 60 mg DAILY PO 01/09/17 09:00 02/08/17 08:59 01/15/17 07:56 60 MG Fluticasone Propionate (Flovent Hfa 110MCG Inhaler) 2 puffs BID INH 01/09/17 09:00 02/08/17 08:59 01/15/17 07:54 2 PUFFS Sertraline HCl (Zoloft Tab) 200 mg DAILY PO 01/09/17 09:00 02/08/17 08:59 01/15/17 07:56 200 MG Trazodone HCl (Desyrel Tab) 100 mg HS PO 01/09/17 21:00 02/08/17 20:59 01/14/17 22:00 100 MG Pantoprazole Sodium (Protonix Tab) 40 mg QAM PO 01/09/17 09:00 02/08/17 08:59 01/15/17 07:57 40 MG Gabapentin (Neurontin Cap) 200 mg TID PO 01/09/17 09:00 02/08/17 08:59 01/15/17 07:56 200 MG Tramadol HCl 25 mg 25 mg Q6H PRN PO 01/09/17 01:30 02/08/17 01:29 01/15/17 08:06 25 MG Caspofungin 50 mg/ Sodium Chloride 260 ml @ 250 mls/hr DAILY@1200 IV 01/13/17 12:00 01/22/17 11:59 01/14/17 11:48 250 MLS/HR Amphotericin B/ Sterile Water (Fungizone Irrigation Inj/ Sterile Water 1000 ml) 1,000 ml @ 41.667 mls/ hr DAILY@1400 IR 01/12/17 14:00 01/17/17 13:59 01/14/17 13:52 41.667 MLS/HR Objective Vital Signs Date Time Temp Pulse Resp B/P Pulse Ox O2 Delivery O2 Flow Rate FiO2 01/15/17 08:23 97 Room Air 01/15/17 08:00 Room Air 01/15/17 07:57 36.5 64 18 130/82 97 Room Air 01/15/17 00:35 36.4 60 16 137/86 92 Room Air 01/15/17 00:10 Room Air 01/14/17 16:00 Room Air 01/14/17 16:00 36.8 61 18 141/78 95 Room Air Physical Exam General Appearance: WD/WN, no apparent distress Eyes: normal inspection, sclerae normal ENT: hearing grossly normal Neck: supple, trachea midline Respiratory/Chest: no respiratory distress, no accessory muscle use Cardiovascular: regular rate, rhythm Abdomen: + pertinent finding (Guaman catheter in place- irrigation running) Extremities: normal range of motion Neurologic/Psychiatric: alert, normal mood/affect Skin: normal color, warm/dry, no rash Laboratory Results Item Value Date Time Urine Culture - Final Complete 01/09/17 0520 Urine , Clean Catch Yeast Not Samantha Albicans Blood Culture - Final Complete 01/09/17 0008 Blood NO GROWTH Blood Culture - Final Complete 01/09/17 0000 Blood NO GROWTH Last 24 Hours Test 01/14/17 11:34 01/14/17 17:01 01/14/17 20:11 01/15/17 07:37 Bedside Glucose 87 mg/dl 99 mg/dl 94 mg/dl 89 mg/dl Assessment and Plan Patient with yeast UTI and probable right-sided pyelonephritis. She is currently on IV Caspofungin with Amphotericin bladder irrigation. Recommend completing 5 days total of bladder irrigation and 10 days total of IV Caspofungin. This patient will have approximately 5 days of IV Caspofungin left when she is discharged following completion of bladder irrigation. Therefore, this patient either could go home with a new peripheral IV line or a PICC line to complete antibiotic therapy. She also could come to the [facility] or continue therapy at home. Will discuss with case management. PROVIDER ADDENDUM: Patient reviewed with Ms. Barcenas. Agree with above assessment.
[2017-01-15] MEDS: CASPOFUNGIN INJ 50 MG in SODIUM CHLORIDE 0.9% 250ML 250 ML IV SCH (11:59)
[2017-01-15] MEDS: ACETAMINOPHEN 325 MG TAB PO PRN (13:15)
[2017-01-15] MEDS: AMPHOTERICIN B IRRIGATION INJ 50 MG in STERILE WATER 1000 ML 1,000 ML IR SCH (13:53)
[2017-01-15 15:16] VITALS: BP 149/84; PULSE 65; TEMP 36.5; O2SAT 94
[2017-01-15 16:00] VITALS: O2SAT 94
[2017-01-15] MEDS ORDERED: IBUPROFEN 600 MG TAB PO PRN (18:45)
--- NOTE | 2017-01-15 19:22 | Progress Note ---
Medicine Progress Note Date & Time of Visit: Jan 15, 2017 at 19:08. Subjective Patient seen and examined. Does not voice any complaints. Tolerating antifungals. Objective Last 8 Hrs Date Time Temp Pulse Resp B/P Pulse Ox O2 Delivery O2 Flow Rate FiO2 01/15/17 16:00 94 Room Air 01/15/17 15:16 36.5 65 22 149/84 94 Room Air Physical Exam: General-awake; alert; NAD Eyes-EOMI; no scleral icterus Neck-no stridor; trachea midline Lungs-CTA bilaterally; no wheezes/crackles Heart-RRR; no m/r/g Abdomen-soft; nBS; mildly tender to palpation ventral incisional hernias Extremities-no c/c/e; no deformity Neuro-no focal deficits Laboratory Results: Last 24 Hours Test 01/14/17 20:11 01/15/17 07:37 01/15/17 11:13 01/15/17 16:24 Bedside Glucose 94 mg/dl 89 mg/dl 96 mg/dl 85 mg/dl Assessment & Plan Sepsis - resolved - likely related to underlying complicated UTI - dirty urinalysis - blood cultures negative - urine culture with 30K of yeast, not tita - de-escalated cefepime to levofloxacin --> discontinued given urine culture results - consulted ID - continue caspofungin x10 days (start date 01/12/17) - continue amphotericin bladder irrigation x5 days (start date 01/12/17) Elevated troponin - Cardiology consulted - 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 - downtrended - asymptomatic - continue aspirin, metoprolol and atorvastatin - TTE with stable findings OSBALDO - possibly 2/2 diuresis on admission - hold on further diuresis at this time as patient does not appear to be clinically volume overloaded - resolved Type 2 DM - hold metformin - SSI while inpatient Pancreatic cystic lesion - MRCP with 2cm cystic lesion; recommending EUS - will need to be set up with outpatient GI Depression - continue amitriptyline, duloxetine, sertraline, trazodone - patient declines psychiatry evaluation at this time DVT prophylaxis with heparin sq Anticipate discharge home on Sunday. Patient will need PICC/midline placement prior to discharge (patient still considering). Patient will decide on home IV caspofungin vs coming to [facility] daily for infusion. Prescription given to case management. Consultants: Cardiology Infectious disease Procedures: CT a/p 1. Persistent right-sided hydronephrosis with extra renal pelvis in a configuration suggesting a UPJ obstruction. There is increasing right-sided perinephric edema, and superimposed infection cannot be excluded. Correlation with urinalysis is recommended 2. 2.5 cm cystic lesion within the pancreatic head. Further workup is advocated. This finding was not described on the preliminary report, and therefore this report will be called. 3. No evidence of bowel obstruction. No evidence of free air 4. Splenomegaly 5. Hepatic steatosis 6. Multiple ventral hernias. CT head No acute intracranial abnormality. MRCP 1. Gallstones within the gallbladder lumen. 2. The biliary and pancreatic ductal systems appear unremarkable. 3. 2.1 cm cystic lesion within the pancreatic head medially adjacent to the pancreatic duct. 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 4. Endoscopic ultrasonography of the pancreas is suggested as follow-up Current Inpatient Medications: Current Inpatient Medications Medications (Trade) Dose Ordered Sig/Nessa Route Start Time Stop Time Status Last Admin Dose Admin Metoprolol Succinate (Toprol Xl Tab) 37.5 mg BID PO 01/09/17 09:00 02/08/17 08:59 01/15/17 07:56 37.5 MG Ipratropium [place] (Atrovent 0.02% 0.5MG/2.5ML Neb) 0.5 mg Q4H PRN INH 01/08/17 23:45 02/07/17 23:44 Levalbuterol (Xopenex 1.25MG/ 0.5ML Neb) 1.25 mg Q4H PRN INH 01/08/17 23:45 02/07/17 23:44 Heparin Sodium (Porcine) (Heparin Sq 5000 Unit/0.5ml) 5,000 unit Q8 SQ 01/09/17 06:00 02/08/17 05:59 01/15/17 13:54 5,000 UNIT Acetaminophen (Tylenol Tab) 650 mg Q4H PRN PO 01/09/17 00:30 02/08/17 00:29 01/15/17 13:15 650 MG Nitroglycerin (Nitrostat Tab) 0.4 mg UD PRN SL 01/09/17 00:30 02/08/17 00:29 Insulin Aspart (novoLOG ASPART) SLIDING SCALE If C... ACHS SC 01/09/17 07:00 02/08/17 06:59 01/12/17 17:42 2 UNITS Glucose (Glucose 40% Gel) 15-30 GRAMS 15 GRAMS... UD PRN PO 01/09/17 00:30 02/08/17 00:29 Glucose (Glucose Chew Tab) 4-8 Tablets 4 Tabl... UD PRN PO 01/09/17 00:30 02/08/17 00:29 Dextrose (Dextrose 50% 50ML Syringe) 25-50ML OF 50% DW IV FOR... UD PRN IV 01/09/17 00:30 02/08/17 00:29 Glucagon (Glucagon Inj) 1 mg UD PRN SQ 01/09/17 00:30 02/08/17 00:29 Amitriptyline HCl (Elavil Tab) 50 mg HS PO 01/09/17 21:00 02/08/17 20:59 01/14/17 21:03 50 MG Aspirin (Ecotrin Tab) 81 mg DAILY PO 01/09/17 09:00 02/08/17 08:59 01/15/17 07:56 81 MG Atorvastatin Calcium (Lipitor Tab) 20 mg DAILY PO 01/09/17 09:00 02/08/17 08:59 01/15/17 07:56 20 MG Duloxetine HCl (Cymbalta Cap) 60 mg DAILY PO 01/09/17 09:00 02/08/17 08:59 01/15/17 07:56 60 MG Fluticasone Propionate (Flovent Hfa 110MCG Inhaler) 2 puffs BID INH 01/09/17 09:00 02/08/17 08:59 01/15/17 07:54 2 PUFFS Sertraline HCl (Zoloft Tab) 200 mg DAILY PO 01/09/17 09:00 02/08/17 08:59 01/15/17 07:56 200 MG Trazodone HCl (Desyrel Tab) 100 mg HS PO 01/09/17 21:00 02/08/17 20:59 01/14/17 22:00 100 MG Pantoprazole Sodium (Protonix Tab) 40 mg QAM PO 01/09/17 09:00 02/08/17 08:59 01/15/17 07:57 40 MG Gabapentin (Neurontin Cap) 200 mg TID PO 01/09/17 09:00 02/08/17 08:59 01/15/17 13:53 200 MG Tramadol HCl 25 mg 25 mg Q6H PRN PO 01/09/17 01:30 02/08/17 01:29 01/15/17 15:49 25 MG Caspofungin 50 mg/ Sodium Chloride 260 ml @ 250 mls/hr DAILY@1200 IV 01/13/17 12:00 01/22/17 11:59 01/15/17 11:59 250 MLS/HR Amphotericin B/ Sterile Water (Fungizone Irrigation Inj/ Sterile Water 1000 ml) 1,000 ml @ 41.667 mls/ hr DAILY@1400 IR 01/12/17 14:00 01/17/17 13:59 01/15/17 13:53 41.667 MLS/HR Ibuprofen (Motrin Tab) 600 mg TID PRN PO 01/15/17 18:45 02/14/17 18:44
[2017-01-15] MEDS: AMITRIPTYLINE HCL 50 MG TAB PO SCH (20:48)
[2017-01-15] MEDS: TRAZODONE HCL 50 MG TAB PO SCH (20:49)
[2017-01-16 00:06] VITALS: BP 131/71; PULSE 64; TEMP 36.6; O2SAT 96
[2017-01-16] MEDS: HEPARIN SOD 5000 UNIT/0.5 ML CARP SQ SCH ×3 (05:08→21:45)
[2017-01-16] MEDS: TRAMADOL HCL 50 MG TAB PO PRN ×2 (07:29→21:42)
[2017-01-16 07:52] VITALS: BP 147/83; PULSE 60; TEMP 36.6; O2SAT 96
[2017-01-16] MEDS: INSULIN ASPART 100 UNITS/ML 3 ML PEN SC SCH ×4 (08:16→21:44)
[2017-01-16] MEDS: FLUTICASONE HFA 110MCG INHALER INH SCH ×2 (08:17→21:39)
[2017-01-16] MEDS: DULOXETINE HCL 60 MG CAP PO SCH (08:18)
[2017-01-16] MEDS: ATORVASTATIN 20 MG TAB PO SCH (08:18)
[2017-01-16] MEDS: ASPIRIN 81 MG ECTAB PO SCH (08:18)
[2017-01-16] MEDS: PANTOprazole SOD 40 MG TAB PO SCH (08:19)
[2017-01-16] MEDS: GABAPENTIN 100 MG CAP PO SCH ×3 (08:19→21:36)
[2017-01-16] MEDS: SERTRALINE HCL 100 MG TAB PO SCH (08:19)
[2017-01-16 08:21] VITALS: BP 132/75; PULSE 63
[2017-01-16] MEDS: METOPROLOL SUCC 25MG EXT REL TAB PO SCH ×2 (08:22→21:37)
--- NOTE | 2017-01-16 10:15 | Infectious Disease Progress Nt ---
Progress Note Date of Service Jan 16, 2017. Subjective Pt evaluation today including: conversation w/ patient, physical exam, chart review, lab review, review of studies, review of inpatient medication list Glucose this morning was 73. No other new labs. No new imaging/micro. Patient is feeling better today. She has not had any continued groin pain, but she is complaining of continued back pain. She feels this is from the bed. The patient is having a lot of anxiety about having a PICC line/Midline placed. She would prefer to continued peripheral IV and come to the [facility] daily for her infusion. All Other Systems: Reviewed and Negative Medications Current Inpatient Medications Medications (Trade) Dose Ordered Sig/Nessa Route Start Time Stop Time Status Last Admin Dose Admin Metoprolol Succinate (Toprol Xl Tab) 37.5 mg BID PO 01/09/17 09:00 02/08/17 08:59 01/16/17 08:22 37.5 MG Ipratropium [place] (Atrovent 0.02% 0.5MG/2.5ML Neb) 0.5 mg Q4H PRN INH 01/08/17 23:45 02/07/17 23:44 Levalbuterol (Xopenex 1.25MG/ 0.5ML Neb) 1.25 mg Q4H PRN INH 01/08/17 23:45 02/07/17 23:44 Heparin Sodium (Porcine) (Heparin Sq 5000 Unit/0.5ml) 5,000 unit Q8 SQ 01/09/17 06:00 02/08/17 05:59 01/15/17 20:55 5,000 UNIT Acetaminophen (Tylenol Tab) 650 mg Q4H PRN PO 01/09/17 00:30 02/08/17 00:29 01/15/17 13:15 650 MG Nitroglycerin (Nitrostat Tab) 0.4 mg UD PRN SL 01/09/17 00:30 02/08/17 00:29 Insulin Aspart (novoLOG ASPART) SLIDING SCALE If C... ACHS SC 01/09/17 07:00 02/08/17 06:59 01/12/17 17:42 2 UNITS Glucose (Glucose 40% Gel) 15-30 GRAMS 15 GRAMS... UD PRN PO 01/09/17 00:30 02/08/17 00:29 Glucose (Glucose Chew Tab) 4-8 Tablets 4 Tabl... UD PRN PO 01/09/17 00:30 02/08/17 00:29 Dextrose (Dextrose 50% 50ML Syringe) 25-50ML OF 50% DW IV FOR... UD PRN IV 01/09/17 00:30 02/08/17 00:29 Glucagon (Glucagon Inj) 1 mg UD PRN SQ 01/09/17 00:30 02/08/17 00:29 Amitriptyline HCl (Elavil Tab) 50 mg HS PO 01/09/17 21:00 02/08/17 20:59 01/15/17 20:48 50 MG Aspirin (Ecotrin Tab) 81 mg DAILY PO 01/09/17 09:00 02/08/17 08:59 01/16/17 08:18 81 MG Atorvastatin Calcium (Lipitor Tab) 20 mg DAILY PO 01/09/17 09:00 02/08/17 08:59 01/16/17 08:18 20 MG Duloxetine HCl (Cymbalta Cap) 60 mg DAILY PO 01/09/17 09:00 02/08/17 08:59 01/16/17 08:18 60 MG Fluticasone Propionate (Flovent Hfa 110MCG Inhaler) 2 puffs BID INH 01/09/17 09:00 02/08/17 08:59 01/16/17 08:17 2 PUFFS Sertraline HCl (Zoloft Tab) 200 mg DAILY PO 01/09/17 09:00 02/08/17 08:59 01/16/17 08:19 200 MG Trazodone HCl (Desyrel Tab) 100 mg HS PO 01/09/17 21:00 02/08/17 20:59 01/15/17 20:49 100 MG Pantoprazole Sodium (Protonix Tab) 40 mg QAM PO 01/09/17 09:00 02/08/17 08:59 01/16/17 08:19 40 MG Gabapentin (Neurontin Cap) 200 mg TID PO 01/09/17 09:00 02/08/17 08:59 01/16/17 08:19 200 MG Tramadol HCl 25 mg 25 mg Q6H PRN PO 01/09/17 01:30 02/08/17 01:29 01/16/17 07:29 25 MG Caspofungin 50 mg/ Sodium Chloride 260 ml @ 250 mls/hr DAILY@1200 IV 01/13/17 12:00 01/22/17 11:59 01/15/17 11:59 250 MLS/HR Amphotericin B/ Sterile Water (Fungizone Irrigation Inj/ Sterile Water 1000 ml) 1,000 ml @ 41.667 mls/ hr DAILY@1400 IR 01/12/17 14:00 01/17/17 13:59 01/15/17 13:53 41.667 MLS/HR Ibuprofen (Motrin Tab) 600 mg TID PRN PO 01/15/17 18:45 02/14/17 18:44 Objective Vital Signs Date Time Temp Pulse Resp B/P Pulse Ox O2 Delivery O2 Flow Rate FiO2 01/16/17 08:21 63 132/75 01/16/17 07:52 36.6 60 18 147/83 96 Room Air 01/16/17 00:06 36.6 64 16 131/71 96 Room Air 01/15/17 23:45 Room Air 01/15/17 16:00 94 Room Air 01/15/17 15:16 36.5 65 22 149/84 94 Room Air Physical Exam General Appearance: WD/WN, no apparent distress Eyes: normal inspection, sclerae normal ENT: hearing grossly normal Neck: supple, trachea midline Respiratory/Chest: no respiratory distress, no accessory muscle use Cardiovascular: regular rate, rhythm Abdomen: + pertinent finding (Guaman in place with continuous infusion therapy) Extremities: normal range of motion Neurologic/Psychiatric: alert Skin: normal color, warm/dry, no rash Laboratory Results Last 24 Hours Test 01/15/17 11:13 01/15/17 16:24 01/15/17 20:06 01/16/17 07:27 Bedside Glucose 96 mg/dl 85 mg/dl 102 mg/dl 73 mg/dl Assessment and Plan Patient with yeast UTI and probable right-sided pyelonephritis. She is currently on IV Caspofungin with Amphotericin bladder irrigation. Today, her last day of bladder irrigation will begin. The patient will be OK for D/C tomorrow following completion of this therapy. She will need 5 more days of IV Caspofungin following D/C. She would prefer to continue therapy via peripheral IV and come to the [facility] daily for therapy. She has anxiety about placement of PICC/midline. She will need F/U with me next Sunday on the last day of her therapy. We will schedule this appointment. Thank you. PROVIDER ADDENDUM: Patient reviewed with Ms. Barcenas. Agree with above assessment.
[2017-01-16] MEDS: CASPOFUNGIN INJ 50 MG in SODIUM CHLORIDE 0.9% 250ML 250 ML IV SCH (12:30)
[2017-01-16] MEDS: AMPHOTERICIN B IRRIGATION INJ 50 MG in STERILE WATER 1000 ML 1,000 ML IR SCH (14:03)
[2017-01-16 15:05] VITALS: BP 136/84; PULSE 62; TEMP 36.7; O2SAT 96
--- NOTE | 2017-01-16 17:27 | Progress Note ---
Internal Med Progress Note Date of Service: Jan 16, 2017. Provider Documentation: SUBJECTIVE: sitting comfortably omn the chair denies chest pain or sob no nausea ambulating ok eating ok denies abdominal pain has some back pain and attributes it to the hospital bed OBJECTIVE: Vital Signs-as noted below Exam: General-alert and awake and oriented. Not in distress ENT-normal hearing Neck-no neck masses Lungs-cta b/l no wheezing or crackles Heart-s1 and s2 heard, regular rate and rhythm no murmurs Abdomen-soft bowel sounds present non tender no distension Extremities-no edema no erythema Neuro-alert and awake moves extremities Lab data as noted below. ASSESSMENT & PLAN: Sepsis resolved mostlikely from complicated UTI Initially was treated with cefepime and later with Levaquin urine culture with 30K of yeast, not tita ID consulted and for possible pyelo and was started on caspofungin x10 days (start date 01/12/17) and amphotericin bladder irrigation x5 days (start date 01/12/17) improving will complete bladder irrigation in am plan to d/c on caspofungin for 5 more days Elevated troponin have a h/o HCOM s/p ICD asymptomatic on aspirin, metoprolol and atorvastatin TTE with stable findings cardiology consulted and appreciate inputs OSBALDO mostlikely from diuresis on admission resolved Type 2 DM Holding metformin SSI while inpatient will monitor Pancreatic cystic lesion MRCP with 2cm cystic lesion; recommending EUS Need to be set up with outpatient GI Depression stable on amitriptyline, duloxetine, sertraline, trazodone DVT prophylaxis with heparin sq . DISPOSITION possible d/c in am with home health Vital Signs: Date Time Temp Pulse Resp B/P Pulse Ox O2 Delivery O2 Flow Rate FiO2 01/16/17 15:05 36.7 62 20 136/84 96 Room Air 01/16/17 08:21 63 132/75 01/16/17 07:52 36.6 60 18 147/83 96 Room Air 01/16/17 07:20 Room Air 01/16/17 00:06 36.6 64 16 131/71 96 Room Air 01/15/17 23:45 Room Air Lab Results: Results Past 24 Hours Test 01/15/17 20:06 01/16/17 07:27 01/16/17 11:18 01/16/17 16:22 Range/Units Bedside Glucose 102 73 92 87 70-90 mg/dl
[2017-01-16] MEDS: AMITRIPTYLINE HCL 50 MG TAB PO SCH (21:37)
[2017-01-16] MEDS: TRAZODONE HCL 50 MG TAB PO SCH (21:37)
[2017-01-16 23:22] VITALS: BP 142/77; PULSE 63; TEMP 36.7; O2SAT 93
[2017-01-17] VITALS: O2SAT 93
[2017-01-17] MEDS: HEPARIN SOD 5000 UNIT/0.5 ML CARP SQ SCH ×2 (05:34→13:08)
[2017-01-17] MEDS: INSULIN ASPART 100 UNITS/ML 3 ML PEN SC SCH ×3 (06:30→17:22)
[2017-01-17] MEDS: FLUTICASONE HFA 110MCG INHALER INH SCH (07:31)
[2017-01-17] MEDS: PANTOprazole SOD 40 MG TAB PO SCH (07:32)
[2017-01-17] MEDS: DULOXETINE HCL 60 MG CAP PO SCH (07:32)
[2017-01-17] MEDS: METOPROLOL SUCC 25MG EXT REL TAB PO SCH (07:32)
[2017-01-17] MEDS: SERTRALINE HCL 100 MG TAB PO SCH (07:33)
[2017-01-17] MEDS: ASPIRIN 81 MG ECTAB PO SCH (07:33)
[2017-01-17] MEDS: ATORVASTATIN 20 MG TAB PO SCH (07:33)
[2017-01-17] MEDS: GABAPENTIN 100 MG CAP PO SCH ×2 (07:34→13:06)
[2017-01-17 07:50] VITALS: BP 135/80; PULSE 63; TEMP 36.4; O2SAT 90
[2017-01-17 08:00] VITALS: O2SAT 90
[2017-01-17] MEDS: TRAMADOL HCL 50 MG TAB PO PRN (09:00)
[2017-01-17 10:58] VITALS: O2SAT 90
[2017-01-17] MEDS ORDERED: NURSING VERBAL MED ORDER ONE (12:30)
[2017-01-17] MEDS: CASPOFUNGIN INJ 50 MG in SODIUM CHLORIDE 0.9% 250ML 250 ML IV SCH (12:45)
--- NOTE | 2017-01-17 14:42 | Infectious Disease Progress Nt ---
Progress Note Date of Service Jan 17, 2017. Subjective Pt evaluation today including: conversation w/ patient, physical exam, chart review, lab review, review of studies, conversation w/ automobile sales consultant (Dr. Mayberry), review of inpatient medication list Patient is feeling well this morning. Her [place] catheter was removed this afternoon. She has not urinated on her own yet. She is anticipating D/C home this afternoon. She is going to be going home with a peripheral IV line and getting her abx at [facility]. All Other Systems: Reviewed and Negative Medications Current Inpatient Medications Medications (Trade) Dose Ordered Sig/Nessa Route Start Time Stop Time Status Last Admin Dose Admin Metoprolol Succinate (Toprol Xl Tab) 37.5 mg BID PO 01/09/17 09:00 02/08/17 08:59 01/17/17 07:32 37.5 MG Ipratropium [place] (Atrovent 0.02% 0.5MG/2.5ML Neb) 0.5 mg Q4H PRN INH 01/08/17 23:45 02/07/17 23:44 Levalbuterol (Xopenex 1.25MG/ 0.5ML Neb) 1.25 mg Q4H PRN INH 01/08/17 23:45 02/07/17 23:44 Heparin Sodium (Porcine) (Heparin Sq 5000 Unit/0.5ml) 5,000 unit Q8 SQ 01/09/17 06:00 02/08/17 05:59 01/17/17 13:08 5,000 UNIT Acetaminophen (Tylenol Tab) 650 mg Q4H PRN PO 01/09/17 00:30 02/08/17 00:29 01/15/17 13:15 650 MG Nitroglycerin (Nitrostat Tab) 0.4 mg UD PRN SL 01/09/17 00:30 02/08/17 00:29 Insulin Aspart (novoLOG ASPART) SLIDING SCALE If C... ACHS SC 01/09/17 07:00 02/08/17 06:59 01/16/17 12:26 1 UNITS Glucose (Glucose 40% Gel) 15-30 GRAMS 15 GRAMS... UD PRN PO 01/09/17 00:30 02/08/17 00:29 Glucose (Glucose Chew Tab) 4-8 Tablets 4 Tabl... UD PRN PO 01/09/17 00:30 02/08/17 00:29 Dextrose (Dextrose 50% 50ML Syringe) 25-50ML OF 50% DW IV FOR... UD PRN IV 01/09/17 00:30 02/08/17 00:29 Glucagon (Glucagon Inj) 1 mg UD PRN SQ 01/09/17 00:30 02/08/17 00:29 Amitriptyline HCl (Elavil Tab) 50 mg HS PO 01/09/17 21:00 02/08/17 20:59 01/16/17 21:37 50 MG Aspirin (Ecotrin Tab) 81 mg DAILY PO 01/09/17 09:00 02/08/17 08:59 01/17/17 07:33 81 MG Atorvastatin Calcium (Lipitor Tab) 20 mg DAILY PO 01/09/17 09:00 02/08/17 08:59 01/17/17 07:33 20 MG Duloxetine HCl (Cymbalta Cap) 60 mg DAILY PO 01/09/17 09:00 02/08/17 08:59 01/17/17 07:32 60 MG Fluticasone Propionate (Flovent Hfa 110MCG Inhaler) 2 puffs BID INH 01/09/17 09:00 02/08/17 08:59 01/17/17 07:31 2 PUFFS Sertraline HCl (Zoloft Tab) 200 mg DAILY PO 01/09/17 09:00 02/08/17 08:59 01/17/17 07:33 200 MG Trazodone HCl (Desyrel Tab) 100 mg HS PO 01/09/17 21:00 02/08/17 20:59 01/16/17 21:37 100 MG Pantoprazole Sodium (Protonix Tab) 40 mg QAM PO 01/09/17 09:00 02/08/17 08:59 01/17/17 07:32 40 MG Gabapentin (Neurontin Cap) 200 mg TID PO 01/09/17 09:00 02/08/17 08:59 01/17/17 13:06 200 MG Tramadol HCl 25 mg 25 mg Q6H PRN PO 01/09/17 01:30 02/08/17 01:29 01/17/17 09:00 25 MG Caspofungin/ Sodium Chloride (Cancidas Inj/ Nss 250ml) 260 ml @ 250 mls/hr DAILY@1200 IV 01/13/17 12:00 01/22/17 11:59 01/17/17 12:45 250 MLS/HR Ibuprofen (Motrin Tab) 600 mg TID PRN PO 01/15/17 18:45 02/14/17 18:44 01/16/17 23:30 600 MG Objective Vital Signs Date Time Temp Pulse Resp B/P Pulse Ox O2 Delivery O2 Flow Rate FiO2 01/17/17 10:58 90 Room Air 01/17/17 08:00 90 Room Air 01/17/17 07:50 36.4 63 16 135/80 90 Room Air 01/17/17 00:00 93 Room Air 01/16/17 23:22 36.7 63 20 142/77 93 01/16/17 16:20 Room Air 01/16/17 15:05 36.7 62 20 136/84 96 Room Air Physical Exam General Appearance: WD/WN, no apparent distress Eyes: normal inspection, sclerae normal ENT: hearing grossly normal Neck: supple, trachea midline Respiratory/Chest: no respiratory distress, no accessory muscle use Cardiovascular: regular rate, rhythm Neurologic/Psychiatric: alert, normal mood/affect Skin: normal color, warm/dry, no rash Laboratory Results Last 24 Hours Test 01/16/17 16:22 01/16/17 20:26 01/17/17 07:27 01/17/17 11:30 Bedside Glucose 87 mg/dl 129 mg/dl 90 mg/dl 91 mg/dl Assessment and Plan Patient with yeast UTI and probable right-sided pyelonephritis. She is currently on IV Caspofungin with Amphotericin bladder irrigation. Today, her last day of bladder irrigation will begin. The patient will be OK for D/C tomorrow following completion of this therapy. She will need 5 more days of IV Caspofungin following D/C. Patient will need to follow up with ID on Sunday of next week. OK for D/C from ID perspective once medically cleared. Thanks PROVIDER ADDENDUM: Patient reviewed with Ms. Barcenas. Agree with above assessment.
[2017-01-17 15:01] VITALS: BP 134/85; PULSE 60; TEMP 36.5; O2SAT 94
--- NOTE | 2017-01-17 15:51 | Progress Note ---
Internal Med Progress Note Date of Service: Jan 17, 2017. Provider Documentation: SUBJECTIVE: Resting comfortably afebrile slept ok last night eating ok ambulating ok waiting to be discharged OBJECTIVE: Vital Signs-as noted below Exam: General-alert and awake and oriented. Not in distress ENT-normal hearing Neck-no neck masses Lungs-cta b/l no wheezing or crackles Heart-s1 and s2 heard, regular rate and rhythm no murmurs Abdomen-soft bowel sounds present non tender no distension Extremities-no edema no erythema Neuro-alert and awake moves extremities Lab data as noted below. ASSESSMENT & PLAN: Sepsis resolved mostlikely from complicated UTI Initially was treated with cefepime and later with Levaquin urine culture with 30K of yeast, not tita ID consulted and for possible pyelo and was started on caspofungin x10 days (start date 01/12/17) and amphotericin bladder irrigation x5 days (start date 01/12/17) improving Completed bladder irrigation today plan to d/c on caspofungin for 5 more days with patient coming to [facility] daily [place] d/teofilo and waiting for the patient to void herself before discharge Elevated troponin have a h/o HCOM s/p ICD asymptomatic on aspirin, metoprolol and atorvastatin TTE with stable findings cardiology consulted and appreciate inputs stable OSBALDO mostlikely from diuresis on admission resolved Type 2 DM Holding metformin SSI while inpatient will monitor f/u with pcp Pancreatic cystic lesion MRCP with 2cm cystic lesion; recommending EUS Need to be set up with outpatient GI Depression stable on amitriptyline, duloxetine, sertraline, trazodone DVT prophylaxis with heparin sq . DISPOSITION possible d/c today Vital Signs: Date Time Temp Pulse Resp B/P Pulse Ox O2 Delivery O2 Flow Rate FiO2 01/17/17 15:01 36.5 60 20 134/85 94 Room Air 01/17/17 10:58 90 Room Air 01/17/17 08:00 90 Room Air 01/17/17 07:50 36.4 63 16 135/80 90 Room Air 01/17/17 00:00 93 Room Air 01/16/17 23:22 36.7 63 20 142/77 93 01/16/17 16:20 Room Air Lab Results: Results Past 24 Hours Test 01/16/17 16:22 01/16/17 20:26 01/17/17 07:27 01/17/17 11:30 Range/Units Bedside Glucose 87 129 90 91 70-90 mg/dl
--- NOTE | 2017-01-17 17:47 | Discharge Instructions ---
Discharge Instructions Admission Reason for Admission: Sepsis Discharge Discharge Diagnosis / Problem: sepsis. complicated uti with yeast, wilmer Discharge Goals Goal(s): Decrease discomfort, Improve function Activity Recommendations Activity Limitations: resume your previous activity . Instructions / Follow-Up Instructions / Follow-Up FOLLOWUP WITH FAMILY DOCTOR ON January AT 1PM. TO COME TO [facility] ([facility] DAILY FOR FIVE MORE DAYS FOR IV ANTIBIOTIC( CASPOFUNGIN) MEDICATION RECONCILIATION WITH FAMILY DOCTOR. Current Hospital Diet Patient's current hospital diet: Diabetes Type 2 Diet Discharge Diet Recommended Diet: AHA Diet (Heart Healthy), Diabetes Type 2 Diet Pending Studies Studies pending at discharge: no Medical Emergencies . Who to Call and When: Medical Emergencies: If at any time you feel your situation is an emergency, please call 911 immediately. . Non-Emergent Contact Non-Emergency issues call your: Primary Care Provider . . "Provider Documentation" section prepared by Mikey Mayberry. VTE Core Measure Inpt VTE Proph given/why not?: Unfractionated heparin SQ
[2017-01-17 17:48] VITALS: BP 134/85; PULSE 60; TEMP 36.5; O2SAT 94
--- NOTE | 2017-01-17 18:10 | Discharge Summary ---
Discharge Summary Date of Service Jan 17, 2017. Discharge Summary Admission Date: Jan 08, 2017 at 23:53 Discharge Date: Jan 17, 2017 Discharge Disposition: Home with services Principal Diagnosis: sepsis complicated uti with yeast non tita wilmer mild elevation of troponin Secondary Diagnoses/Problems: for HOCM w/ documented genetic mutation/FH SCD sp ICD placement, hypertension, DM2 on oral meds, CADENCE/RLD as per records, hx bowel perforation sp status post surgery. Procedures: CT a/p 1. Persistent right-sided hydronephrosis with extra renal pelvis in a configuration suggesting a UPJ obstruction. There is increasing right-sided perinephric edema, and superimposed infection cannot be excluded. Correlation with urinalysis is recommended 2. 2.5 cm cystic lesion within the pancreatic head. Further workup is advocated. This finding was not described on the preliminary report, and therefore this report will be called. 3. No evidence of bowel obstruction. No evidence of free air 4. Splenomegaly 5. Hepatic steatosis 6. Multiple ventral hernias. CT head No acute intracranial abnormality. MRCP 1. Gallstones within the gallbladder lumen. 2. The biliary and pancreatic ductal systems appear unremarkable. 3. 2.1 cm cystic lesion within the pancreatic head medially adjacent to the pancreatic duct. 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 4. Endoscopic ultrasonography of the pancreas is suggested as follow-up Consultations: Cardiology Infectious disease Medication Reconciliation Continued Medications: Amitriptyline HCl (Amitriptyline HCl) 50 Mg Tab 50 MG PO HS Aspirin (Aspirin Ec) 81 Mg Tab 81 MG PO DAILY Atorvastatin (Atorvastatin Calcium) 20 Mg Tab 20 MG PO DAILY Duloxetine HCl (Duloxetine HCl) 60 Mg Cap 60 MG PO DAILY Fluticasone Propionate (Flovent Hfa) 120 Puffs/17194 Mcg Aero 2 PUFFS INH BID Gabapentin (Gabapentin) 300 Mg Cap 600 MG PO TID Lorazepam (Lorazepam) 0.5 Mg Tab 0.5-1 MG PO Q6H PRN for Anxiety Metformin HCl (Metformin HCl) 500 Mg Tab 500 MG PO BID TAKE THIS MEDICATION TWICE DAILY WITH MORNING AND EVENING MEALS Metoprolol Succinate (Metoprolol Succinate ER) 25 Mg Tabcr 37.5 MG PO BID Omeprazole (Prilosec) 40 Mg Cap 40 MG PO QAM, CAP Sertraline HCl (Sertraline HCl) 100 Mg Tab 200 MG PO DAILY Sumatriptan Succinate (Imitrex) 25 Mg Tab 50 MG PO UD PRN for Migraine UP TO ONE DOSE DIRECTED, MAY REPEAT AFTER 2 HOURS IF NEEDED Trazodone Hcl (Trazodone) 50 Mg Tab 100 MG PO HS Admission Information HPI (per Admitting provider): Medical history is significant for HOCM w/ documented genetic mutation/FH SCD sp ICD placement, hypertension, DM2 on oral meds, CADENCE/RLD as per records, hx bowel perforation sp status post surgery. Recent confinement last in August 2015 for ICD placement. In the last few days, the patient noted chest heaviness and shortness of breath. Gradual weight gain in the last several months of 40 pounds. no cough. no unusual leg swelling. Patient noted some foul urine smell. Patient called PCP's office. Macrodantin prescribed for poss UTI. Patient never got to take the medications. Px later noted achy abd discomfort/back pain, nausea, no emesis. chills later noted She was brought by her to the Emergency Room. At the Emergency Room, the patient received Lasix for CHF and ceftriaxone for sepsis. Px currently cp free. Physical Exam (per Admitting): VITAL SIGNS: Blood pressure was noted to be 160/86 later 102/61, pulse rate 105, RR 26, temperature 37.7 O2 sats 91 on room air. GENERAL: Noted to be anxious, obese, in no respiratory distress. SKIN: Normal color. HEENT: [place] palpebral conjunctivae. Dry mucosa. NECK: Short neck. LUNGS: Decreased breath sounds. Occasional wheeze. HEART: Regular rate and rhythm. ABDOMEN: Some distention, nontender. EXTREMITIES: No edema, no tenderness. NEUROLOGIC: No gross focality. Hospital Course Sepsis resolved mostlikely from complicated UTI Initially was treated with cefepime and later with Levaquin urine culture with 30K of yeast, not tita ID consulted and for possible pyelo and was started on caspofungin x10 days (start date 01/12/17) and amphotericin bladder irrigation x5 days (start date 01/12/17) improving Completed bladder irrigation today plan to d/c on caspofungin for 5 more days with patient coming to [facility] daily [place] d/teofilo and waiting for the patient to void herself before discharge Elevated troponin have a h/o HCOM s/p ICD asymptomatic on aspirin, metoprolol and atorvastatin TTE with stable findings cardiology consulted and appreciate inputs stable WILMER mostlikely from diuresis on admission resolved Type 2 DM Holding metformin SSI while inpatient will monitor f/u with pcp Pancreatic cystic lesion MRCP with 2cm cystic lesion; recommending EUS Need to be set up with outpatient GI Depression stable on amitriptyline, duloxetine, sertraline, trazodone DVT prophylaxis with heparin sq . DISPOSITION possible d/c today Total time spent on discharge = 40minutes This includes examination of the patient, discharge planning, medication reconciliation, and communication with other providers. Discharge Instructions Discharge Instructions Admission Reason for Admission: Sepsis Discharge Discharge Diagnosis / Problem: sepsis. complicated uti with yeast, wilmer Discharge Goals Goal(s): Decrease discomfort, Improve function Activity Recommendations Activity Limitations: resume your previous activity . Instructions / Follow-Up Instructions / Follow-Up FOLLOWUP WITH FAMILY DOCTOR ON January AT 1PM. TO COME TO [facility] ([facility]) DAILY FOR FIVE MORE DAYS FOR IV ANTIBIOTIC( CASPOFUNGIN) MEDICATION RECONCILIATION WITH FAMILY DOCTOR. Current Hospital Diet Patient's current hospital diet: Diabetes Type 2 Diet Discharge Diet Recommended Diet: AHA Diet (Heart Healthy), Diabetes Type 2 Diet Pending Studies Studies pending at discharge: no Medical Emergencies . Who to Call and When: Medical Emergencies: If at any time you feel your situation is an emergency, please call 911 immediately. . Non-Emergent Contact Non-Emergency issues call your: Primary Care Provider . . "Provider Documentation" section prepared by Mikey Mayberry. VTE Core Measure Inpt VTE Proph given/why not?: Unfractionated heparin SQ
[2017-03-22] MEDS ORDERED: DIPH-416 PO (11:02)
[2017-03-22] MEDS ORDERED: SUMA25TA PO (11:02)
[2017-03-22] MEDS ORDERED: DICY10CA55 PO (11:02)
[2017-03-22] MEDS ORDERED: MISCCAP80 PO (11:02)
[2017-03-22] MEDS ORDERED: FLVHFA44 INH (11:02)
[2017-03-22] MEDS ORDERED: ROPI0.5T PO (11:02)
[2017-03-22] MEDS ORDERED: GLC500 PO (11:02)
[2017-03-22] MEDS ORDERED: METO25TA3 PO (11:02)
[2017-03-22] MEDS ORDERED: VNTHFA/IN INH (11:02)
[2017-03-22] MEDS ORDERED: COLE1TAB PO (11:02)
[2017-03-22] MEDS ORDERED: CYCL5TAB PO (11:02)
== END 2017-01-17 19:50 | disposition home or self-care (01) | DRG 872 ==
LOC: ENRESERVDT → CANRESERV → ENRESERVTM → C.EDB 19:31 → C.EDINP 23:53 → UNDODEPER 01-09 13:25 → C.2T 01-09 13:50 → C.MS2W 01-10 14:09
PROVIDERS: ADMIT Internal Medicine; ATTEND Internal Medicine
PROC: 4B09XSZ Measurement of Respiratory Pacemaker, External Approach (ICD-10-PCS; principal; 2017-01-12)
DX: A41.9 Sepsis, unspecified organism (principal); N12 Tubulo-interstitial nephritis, not specified as acute or chronic; N39.0 Urinary tract infection, site not specified; N17.9 Acute kidney failure, unspecified; K86.2 Cyst of pancreas; I42.2 Other hypertrophic cardiomyopathy; E66.9 Obesity, unspecified; G47.33 Obstructive sleep apnea (adult) (pediatric); I50.9 Heart failure, unspecified; F32.9 Major depressive disorder, single episode, unspecified; E11.9 Type 2 diabetes mellitus without complications; B37.9 Candidiasis, unspecified; R79.89 Other specified abnormal findings of blood chemistry; I11.0 Hypertensive heart disease with heart failure; J98.4 Other disorders of lung; E86.9 Volume depletion, unspecified; Z95.810 Presence of automatic (implantable) cardiac defibrillator; Z82.49 Family history of ischemic heart disease and other diseases of the circulatory system; Z79.84 Long term (current) use of oral hypoglycemic drugs; Z15.89 Genetic susceptibility to other disease; Z87.19 Personal history of other diseases of the digestive system; Z79.899 Other long term (current) drug therapy; Z79.1 Long term (current) use of non-steroidal anti-inflammatories (NSAID); Z68.31 Body mass index [BMI] 31.0-31.9, adult

== ENCOUNTER 2017-02-04 21:28 | Emergency (ER) | payer OTHER ==
[~2017-02-04] VITALS: Ht 152.4 cm; Wt 72.9 kg
[~2017-02-04 21:28] MED LIST changes: +AMT/50 PO; -AMT50 PO; -ASPCH81X PO; +ASPI81TA28 PO; -ATOR-22 PO; +ATV5X PO; -CETI10TA10 PO; -CYCL10TA6 PO; +CYM60 PO; +FLVHFA110 INH; -GABA-113 PO; +GABA1CAP4 PO; -GLC/500 PO; +GLC500 PO; -IBUP-1451 PO; +LPT/20 PO; -METO25TA3 PO; -SERT-234 PO; +SUMA25TA12 PO; +TPRSR/25 PO; -TRAZ100T29 PO; +TRAZ50TA35 PO; +ZLF/100 PO; -ZLF50 PO; -ZOLP5TAB6 PO
[2017-02-04 21:35] VITALS: Ht 152.4 cm; Wt 72.9 kg
[2017-02-04 22:55] LABS: MANUAL MICROSCOPIC REQUIRED? NO; URINE APPEARANCE CLEAR (CLEAR); URINE BILIRUBIN NEG (NEG); URINE COLOR YELLOW; URINE NITRITE NEG (NEG); URINE PH 6.5 (4.5-7.5); URINE SPECIFIC GRAVITY 1.015 (1.000-1.030); UROBILINOGEN NEG (NEG)
[2017-02-04] MEDS ORDERED: MoRPHine SULFATE 4 MG/ML 1 ML CARP\\VIAL IV STA (23:09)
[2017-02-04] MEDS ORDERED: SODIUM CHLORIDE 0.9% 1000ML 1,000 ML IV STA (23:09)
[2017-02-04] MEDS ORDERED: ONDANSETRON INJ 2 MG/ML 2 ML VIAL IV STA (23:09)
[2017-02-04] MEDS ORDERED: SODIUM CHLORIDE 0.9% 500ML 500 ML IV STA (23:09)
[2017-02-04 23:14] LABS: REVIEW REQ? NO
[2017-02-04] MEDS ORDERED: OPTIRAY 320 IV PRN (23:15)
[2017-02-04 23:26] LABS: BASO % 0.2 %; BASO ABS # 0.02 K/uL (0-0.2); COMPLETE YES; EOS % 2.4 %; HEMATOCRIT 40.3 % (37-47); IG% 0.3 %; LYMPH % 15.5 %; LYMPH ABS # 1.58 K/uL (1.2-3.4); MEAN CORPUSCULAR HEMOGLOBIN 29.3 pg (25-34); MEAN CORPUSCULAR HGB CONC 33.3 g/dl (32-36); MEAN PLATELET VOLUME 9.2 fL (7.4-10.4); MONO % 5.7 %; NEUT % 75.9 %; PLATELET COUNT 177 K/uL (130-400); RED BLOOD COUNT 4.58 M/uL (4.2-5.4); WHITE BLOOD COUNT 10.18 K/uL (4.8-10.8)
[2017-02-04 23:44] LABS: BUN/CREATININE RATIO 9.5 (10-20); CREATININE 1.3 mg/dl (0.60-1.20); POTASSIUM 4.3 mmol/L (3.5-5.1)
[2017-02-05 00:43] LABS: ZZUR CULT IF INDIC CLEAN CATCH NO
[2017-02-05] MEDS ORDERED: CIPROFLOXACIN 400MG / 200ML D5W IV STA (01:20)
[2017-02-05] MEDS ORDERED: METRONIDAZOLE 500MG / 100ML NSS IV STA (01:20)
[2017-02-05] MEDS ORDERED: METRONIDAZOLE 250 MG TAB PO STA (01:32)
[2017-02-05] MEDS ORDERED: METR-163 PO (01:37)
[2017-02-05] MEDS ORDERED: CIPR1TAB10 PO (01:37)
[2017-02-05] MEDS ORDERED: ONDANSETRON HOME PACK 4MG OD TAB PO ONE (01:45)
[2017-02-05] MEDS ORDERED: CIPROFLOXACIN 500MG HOME PACK PO ONE (01:45)
[2017-02-05] MEDS ORDERED: OXYCODONE IR HOME PACK PO ONE (01:45)
[2017-02-05 02:42] VITALS: BP 132/68; PULSE 86; TEMP 37.4; O2SAT 95
--- NOTE | 2017-02-05 03:07 | EMERGENCY ROOM VISIT NOTE ---
History First contact with patient: 22:59 Chief Complaint: ABDOMINAL PAIN Stated Complaint: BACK/ABD PAIN Nursing Triage Summary: pt c/o lower abd pain and back pain, History of Present Illness The patient is a 56 year old female who presents to the Emergency Room with complaints of nausea with right lower quadrant pain for the past 2 days that is steadily getting worse. Patient had diverticulitis before and symptoms of similar. She describes the pain as cramping, ranging in severity 8 out of 10. Nothing makes it better or worse. Colonoscopy 2 years ago was normal per patient. Patient denies chest pain, dyspnea, fever, chills, cough, congestion, urinary symptoms. Review of Systems See HPI for pertinent positives & negatives. A total of 10 systems reviewed and were otherwise negative. Past Medical/Surgical History Medical Problems: (1) Hx Perforated diverticulitis (2) Intra-abdominal free air (3) Rectosigmoid resection (4) Sepsis Surgical Problems: (1) Colostomy in place Family History Psychiatric disorder Social History Smoking Status: Never Smoker Drug Use: none Marital Status: Housing Status: lives with family Occupation Status: employed Current/Historical Medications Scheduled Amitriptyline HCl (Amitriptyline HCl), 50 MG PO HS Aspirin (Aspirin Ec), 81 MG PO DAILY Atorvastatin (Atorvastatin Calcium), 20 MG PO DAILY Ciprofloxacin Hcl (Cipro), 500 MG PO BID Duloxetine HCl (Duloxetine HCl), 60 MG PO DAILY Fluticasone Propionate (Flovent Hfa), 2 PUFFS INH BID Gabapentin (Gabapentin), 600 MG PO TID Metformin HCl (Metformin HCl), 500 MG PO BID Metoprolol Succinate (Metoprolol Succinate ER), 37.5 MG PO BID Metronidazole (Flagyl), 500 MG PO TID Omeprazole (Prilosec), 40 MG PO QAM Sertraline HCl (Sertraline HCl), 200 MG PO DAILY Trazodone Hcl (Trazodone), 100 MG PO HS Scheduled PRN Lorazepam (Lorazepam), 0.5-1 MG PO Q6H PRN for Anxiety Sumatriptan Succinate (Imitrex), 50 MG PO UD PRN for Migraine Allergies Coded Allergies: Adhesives (Unverified Allergy, Intermediate, blistering, 02/04/17) Sulfa Antibiotics (Verified Allergy, Intermediate, swelling, 02/04/17) Penicillins (Verified Allergy, Unknown, ZOSYN = FLUSHED FASE, ITCHING, ) FLUSHED FACE, ITCHING TOLERATED PRIMAXIN 2013 ADMISSION Physical Exam Vital Signs Date Time Temp Pulse Resp B/P Pulse Ox O2 Delivery O2 Flow Rate FiO2 02/05/17 02:42 37.4 86 15 132/68 95 02/05/17 01:40 86 15 133/71 98 Room Air 02/05/17 00:22 89 02/05/17 00:19 88 16 136/74 98 Room Air 02/04/17 23:34 95 18 129/92 95 Room Air 02/04/17 23:22 37.2 02/04/17 21:35 37.1 70 18 87/49 97 Room Air Pain Rating (0-10): 2.0 Physical Exam VITALS: Vitals are noted on the nurse's note and reviewed by myself. Vital signs stable. GENERAL: Pleasant female who appears in pain, in no acute distress, nondiaphoretic, well-developed well-nourished. SKIN: The skin was without rashes, erythema, edema, or bruising. There is no tenting of the skin. Capillary reflex less than 2 seconds. HEAD: Normocephalic atraumatic. EARS: External auditory canals clear, tympanic membranes pearly franklin without erythema or effusion bilaterally. EYES: Pupils equal round and reactive to light and accommodation. Conjunctivae without injection, sclerae without icterus. Extraocular movements intact. NOSE: Patent, turbinates without inflammation or discharge. MOUTH: Mucous membranes moist. Pharynx without erythema or exudate. Uvula midline. Airway patent. Tongue does not deviate. NECK: Supple without nuchal rigidity. No lymphadenopathy. No thyromegaly. Cervical spine is nontender. No JVD. HEART: Regular rate and rhythm LUNGS: Clear to auscultation bilaterally without wheezes, rales or rhonchi. No dullness to percussion. No retractions or accessory muscle use. ABDOMEN: Positive bowel sounds x 4. Normal tympanic percussion. Soft, tender to palpation left lower quadrant, no CVA tenderness, without masses or organomegaly. Hoskins sign negative. No guarding or rebound tenderness. MUSCULOSKELETAL: No muscle atrophy, erythema, or edema noted. NEURO: Patient was alert and oriented to person place and time. Normal sensation to light and sharp touch. No focal neurological deficits. Medical Decision & Procedures Laboratory Results 02/04/17 23:07 Red Blood Count 4.58, Mean Corpuscular Volume 88.0, Mean Corpuscular Hemoglobin 29.3, Mean Corpuscular Hemoglobin Concent 33.3, Mean Platelet Volume 9.2, Neutrophils (%) (Auto) 75.9, Lymphocytes (%) (Auto) 15.5, Monocytes (%) (Auto) 5.7, Eosinophils (%) (Auto) 2.4, Basophils (%) (Auto) 0.2, Neutrophils # (Auto) 7.73, Lymphocytes # (Auto) 1.58, Monocytes # (Auto) 0.58, Eosinophils # (Auto) 0.24, Basophils # (Auto) 0.02 02/04/17 23:07 Test 02/04/17 22:15 02/04/17 23:07 Urine Color YELLOW Urine Appearance CLEAR (CLEAR) Urine pH 6.5 (4.5-7.5) Urine Specific [place] 1.015 (1.000-1.030) Urine Protein NEG (NEG) Urine Glucose (UA) NEG (NEG) Urine Ketones NEG (NEG) Urine Occult Blood NEG (NEG) Urine Nitrite NEG (NEG) Urine Bilirubin NEG (NEG) Urine Urobilinogen NEG (NEG) Urine Leukocyte Esterase NEG (NEG) White Blood Count 10.18 K/uL (4.8-10.8) Red Blood Count 4.58 M/uL (4.2-5.4) Hemoglobin 13.4 g/dL (12.0-16.0) Hematocrit 40.3 % (37-47) Mean Corpuscular Volume 88.0 fL (80-100) Mean Corpuscular Hemoglobin 29.3 pg (25-34) Mean Corpuscular Hemoglobin Concent 33.3 g/dl (32-36) Platelet Count 177 K/uL (130-400) Mean Platelet Volume 9.2 fL (7.4-10.4) Neutrophils (%) (Auto) 75.9 % Lymphocytes (%) (Auto) 15.5 % Monocytes (%) (Auto) 5.7 % Eosinophils (%) (Auto) 2.4 % Basophils (%) (Auto) 0.2 % Neutrophils # (Auto) 7.73 K/uL (1.4-6.5) Lymphocytes # (Auto) 1.58 K/uL (1.2-3.4) Monocytes # (Auto) 0.58 K/uL (0.11-0.59) Eosinophils # (Auto) 0.24 K/uL (0-0.5) Basophils # (Auto) 0.02 K/uL (0-0.2) RDW Standard Deviation 47.1 fL (36.4-46.3) RDW Coefficient of Variation 14.7 % (11.5-14.5) Immature Granulocyte % (Auto) 0.3 % Immature Granulocyte # (Auto) 0.03 K/uL (0.00-0.02) Anion Gap 11.0 mmol/L (3-11) Est Creatinine Clear Calc Drug Dose 42.0 ml/min Estimated GFR () 52.4 Estimated GFR (Non- 45.2 BUN/Creatinine Ratio 9.5 (10-20) Calcium Level 9.0 mg/dl (8.5-10.1) Total Bilirubin 0.4 mg/dl (0.2-1) Aspartate Amino Transf (AST/SGOT) 55 U/L (15-37) Alanine Aminotransferase (ALT/SGPT) 51 U/L (12-78) Alkaline Phosphatase 155 U/L (45-117) Total Protein 7.2 gm/dl (6.4-8.2) Albumin 3.6 gm/dl (3.4-5.0) Globulin 3.6 gm/dl (2.5-4.0) Albumin/Globulin Ratio 1.0 (0.9-2) Lipase 204 U/L (73-393) Medications Administered Medications (Trade) Dose Ordered Sig/Nessa Route Start Time Stop Time Status Last Admin Dose Admin Morphine Sulfate (MoRPHine SULFATE INJ) 4 mg NOW STAT IV 02/04/17 23:09 02/04/17 23:10 DC 02/05/17 00:15 4 MG Ondansetron HCl 4 mg 4 mg NOW STAT IV 02/04/17 23:09 02/04/17 23:10 DC 02/05/17 00:14 4 MG Sodium Chloride 500 ml @ 999 mls/hr Q31M STAT IV 02/04/17 23:09 02/04/17 23:39 DC 02/04/17 23:15 999 MLS/HR Sodium Chloride (Nss 1000ml) 1,000 ml @ 125 mls/hr Q8H STAT IV 02/04/17 23:09 02/05/17 07:08 02/05/17 00:15 125 MLS/HR Ciprofloxacin/ Dextrose (Cipro / D5w) 400 mg NOW STAT IV 02/05/17 01:20 02/05/17 01:22 DC 02/05/17 01:54 400 MG Metronidazole (Flagyl / Nss) 500 mg NOW STAT IV 02/05/17 01:20 02/05/17 01:22 DC 02/05/17 01:53 500 MG Ciprofloxacin (Cipro 500MG Home Pack) 1 homepack UD ONCE PO 02/05/17 01:45 02/05/17 01:46 DC 02/05/17 02:36 1 HOMEPACK Metronidazole (Flagyl Tab) 1,500 mg NOW STAT PO 02/05/17 01:32 02/05/17 01:35 DC 02/05/17 02:36 1,500 MG Ondansetron HCl (ZOFRAN ODT 4MG Home Pack) 1 homepack UD ONCE PO 02/05/17 01:45 02/05/17 01:46 DC 02/05/17 02:35 1 HOMEPACK Oxycodone HCl (Roxicodone Immediate Rel 5MG Home Pack) 1 homepack UD ONCE PO 02/05/17 01:45 02/05/17 01:46 DC 02/05/17 02:35 1 HOMEPACK ED Course Prior records/ancillary studies reviewed. Triage Nursing notes reviewed. The patient's history was concerning for abdominal pain. Differential diagnosis: Etiologies such as appendicitis, diverticulitis, PUD, biliary pathology, UTI, pancreatitis, obstruction, mesenteric ischemia, aortic pathology, infections, inflammatory bowel disease, renal colic, as well as others were entertained. Physical examination findings: As above. ER treatment provided: IV fluids, morphine, Zofran, Cipro, Flagyl On reassessment the patient felt better. Diagnostics interpreted by me: ECG: Normal sinus, normal intervals, no acute ST-T wave changes. Impression normal sinus rhythm interpreted by myself The labs revealed no worrisome leukocytosis. Creatinine 1.3 Imaging studies: CT ABDOMEN & PELVIS: Mild to moderate right hydronephrosis without hydroureter, consistent with UPJ obstruction, similar to priors dating back to 11/11/14. Perinephric stranding is resolved from 01/09/17. Sigmoid resection. Appendix not identified, consistent with history of appendectomy. Spleen is enlarged. Liver is top normal in size and there is elevation of the right hemidiaphragm. Hepatic steatosis. 2.4 cm cystic lesion in head of pancreas, similar to prior CT 01/09/17, increased from 11/11/14. No free air or free fluid. No evidence of bowel obstruction. Pacemaker. Fat containing hernia at site of left lower quadrant ostomy. Midline surgical scar with fat-containing incisional hernia superiorly. Mild atherosclerotic calcifications. Degenerative changes of the spine. Radiologist: Dinesh Ruiz MD Exam and history seem most consistent with early diverticulitis. Patient is extremely tender in the left lower quadrant. She's had this before. Because of this, she was started on antibiotics for possible diverticulitis. White count was 10,000. Negative urine. Patient was advised follow-up family care in a few days or here in the ER sooner for fevers, worsening belly pain, chest pain, worsening signs or symptoms or as needed. Patient felt comfortable going home and felt this is reasonable.By the evaluation outlined above emergent etiologies such as appendicitis, PUD, biliary pathology, UTI, pancreatitis, obstruction, mesenteric ischemia, aortic pathology,inflammatory bowel disease, renal colic, as well as others were deemed relatively unlikely. The pt informed about the findings as listed above. All questions were answered and pleased with the treatment. Return instructions were outlined and the patient was discharged in stable condition. Outpatient prescription management: Cipro, Flagyl Referral: The patient was referred back to their primary care physician for follow-up in 2 to 3 days for a recheck of the current condition. Medical Decision As above Impression Primary Impression: Diverticulitis Departure Information Dispostion Home / Self-Care Condition GOOD Prescriptions Metronidazole (Flagyl) 500 Mg Tab 500 MG PO TID for 13 Days, #39 TAB Prov: Azalia Tello PA-C 02/05/17 Ciprofloxacin Hcl (CIPRO) 500 Mg Tab 500 MG PO BID for 13 Days, #26 TAB Prov: Azalia Tello PA-C 02/05/17 Forms Call Back Authorization, HOME CARE DOCUMENTATION FORM, IMPORTANT VISIT INFORMATION Patient Instructions Diverticulitis [place], [facility] Additional Instructions DO NOT drive, drink alcohol, operate machinery, or perform dangerous activities today. You were given medications in the ER that can affect your ability to safely function or operate a vehicle. Zofran 4 m tablet every 6 hours as needed for nausea or vomiting. Oxycodone (OxyIR) 5mg: Take 1-2 pills every four hours for breakthrough pain. Avoid alcohol, operating machinery or dangerous equipment, working on ladders or roofs, DRIVING, or situations where being under the influence may be dangerous. It is recommended to use an [id number] stool softener such as Colace, 100mg twice daily while taking this medication to avoid constipation. Ciprofloxacin(Cipro) 500mg: Take one pill twice daily for 14 days for your bowel infection. All antibiotics can cause diarrhea. If this occurs and you feel worse or it does not resolve in 1-2 days follow up with your doctor or return to the Emergency Department as this could be signs of serious underlying problems. If you experience any pain in your tendons or any tendon injury return to the ER for re-evaluation. Any medication can cause an allergic reaction, stop the pills immediately and return to the ER for rash, hives, breathing difficulties, or swelling. Metronidazole(Flagyl) 500mg: Take one pill 3 times daily for 14 days for your bowel infection. DO NOT drink alcohol or take alcohol containing products with this medication. Any medication can cause an allergic reaction, stop the pills immediately and return to the ER for rash, hives, breathing difficulties, or swelling. Ibuprofen(Motrin, Advil) may be used for fever or pain. Use 600mg every six hours as needed. Take with food. Avoid using more than 2400mg in a 24 hour period. Do not use 2400mg per day for more than three consecutive days without physician direction. Prolonged inappropriate use can lead to stomach upset or ulcers. (AND/OR) Acetaminophen(Tylenol) may be used for fever or pain. Use 1000mg every six hours as needed. Avoid using more than 3000mg in a 24 hour period. Rest and drink plenty of fluids as tolerated. Slow sips of water or sports drinks are recommended instead of large amounts all at once. Continue current medications. Once your stomach is settled start with a clear liquid diet (jello, soup broth, etc.) and then advance as tolerated. You should avoid full, heavy meals for about 24 hrs from the time your symptoms resolved. Return to the ER immediately for worsening or persistent abdominal pain, vomiting, fevers, chest pains, difficulty breathing, black or bloody stools, worsening of your condition, or as needed. Follow up with your primary physician/family coach in 2-3 days for a recheck of your current condition. Problem Qualifiers Primary Impression: Diverticulitis Diverticulitis site: unspecified part of intestinal tract Diverticulitis bleeding: without bleeding Diverticulitis complication: without perforation or abscess Qualified Codes: K57.92 - Diverticulitis of intestine, part unspecified, without perforation or abscess without bleeding
--- NOTE | 2017-02-05 07:26 | DIAGNOSTIC IMAGING REPORT ---
ABDOMEN AND PELVIS CT WITH IV CONTRAST CT DOSE: 511.53 mGy.cm HISTORY: Left lower quadrant abdominal pain. TECHNIQUE: Multiaxial CT images of the abdomen and pelvis were performed following the use of intravenous contrast. COMPARISON STUDY: MRCP 01/11/2017. Abdomen and pelvis CT 01/09/2017. FINDINGS: A stable 3.5 mm nodule within the left lower lobe on image 20. No pneumoperitoneum. No pneumatosis. Pacemaker wires are noted. Multiple small fat-containing ventral hernias are unchanged. Hepatic steatosis. The gallbladder is unremarkable. A 2.5 cm cystic lesion is again noted at the pancreatic head. This remains unchanged. The spleen remains enlarged. Normal adrenal glands and left kidney. Normal bladder. A 1.4 cm enhancing lesion at the uterine fundus. This likely represents a fibroid. Prior sigmoid anastomosis. A few colonic diverticula. No bowel wall thickening or obstruction. The appendix is not identified and likely surgically absent. Right extrarenal pelvis with mild to moderate right hydronephrosis. There is abrupt caliber change at the ureteropelvic junction. This is unchanged from the prior studies and is consistent with a UPJ type obstruction. No renal or ureteral stones. No retroperitoneal lymphadenopathy. IMPRESSION: 1. No bowel wall thickening or obstruction. 2. No change in the mild to moderate right hydronephrosis consistent with a UPJ obstruction. The right perinephric fat stranding has resolved. 3. Stable splenomegaly. 4. Stable 2.5 cm cystic neoplasm at the pancreatic head. 5. Additional stable findings as described above. Electronically signed by: Serg Arias M.D. 02/05/2017 7:25 AM Dictated Date/Time: 02/05/2017 7:17 AM
[2017-02-05 09:30] LABS: ISTAT CREATININE 1.1 mg/dl (0.6-1.3); ISTAT HEMOGLOBIN 12.9 g/dl (12.0-16.0); ISTAT IONIZED CALCIUM 1.08 mmol/l (1.12-1.32)
[2017-03-22] MEDS ORDERED: VNTHFA/IN INH (11:02)
[2017-03-22] MEDS ORDERED: CYCL5TAB PO (11:02)
[2017-03-22] MEDS ORDERED: DICY10CA55 PO (11:02)
[2017-03-22] MEDS ORDERED: SUMA25TA PO (11:02)
[2017-03-22] MEDS ORDERED: METO25TA3 PO (11:02)
[2017-03-22] MEDS ORDERED: MISCCAP80 PO (11:02)
[2017-03-22] MEDS ORDERED: DIPH-416 PO (11:02)
[2017-03-22] MEDS ORDERED: FLVHFA44 INH (11:02)
[2017-03-22] MEDS ORDERED: ROPI0.5T PO (11:02)
[2017-03-22] MEDS ORDERED: COLE1TAB PO (11:02)
[2017-03-22] MEDS ORDERED: GLC500 PO (11:02)
== END 2017-02-05 02:36 | disposition home or self-care (01) ==
LOC: C.EDB 21:29 → C.EDC 02-05 02:36
DX: K57.92 Diverticulitis of intestine, part unspecified, without perforation or abscess without bleeding (principal); Z98.890 Other specified postprocedural states; Z86.19 Personal history of other infectious and parasitic diseases; Z79.82 Long term (current) use of aspirin; Z79.84 Long term (current) use of oral hypoglycemic drugs; Z79.899 Other long term (current) drug therapy; Z88.0 Allergy status to penicillin; Z88.2 Allergy status to sulfonamides; Z91.09 Other allergy status, other than to drugs and biological substances; Z81.8 Family history of other mental and behavioral disorders

== ENCOUNTER 2017-02-07 20:10 | Emergency (ER) | payer OTHER ==
[~2017-02-07] VITALS: Ht 152.4 cm; Wt 74.1 kg
[~2017-02-07 20:10] MED LIST changes: +CIPR1TAB10 PO; +METR-163 PO
[2017-02-07 20:13] VITALS: Ht 152.4 cm; Wt 74.1 kg
[2017-02-07] MEDS ORDERED: HYDROmorphone INJ 0.5 MG/0.5 ML SYR IV STA (20:34)
[2017-02-07] MEDS ORDERED: ONDANSETRON INJ 2 MG/ML 2 ML VIAL IV STA (20:34)
[2017-02-07] MEDS ORDERED: SODIUM CHLORIDE 0.9% 1000ML 1,000 ML IV STA (20:34)
[2017-02-07] MEDS ORDERED: LORAZEPAM 0.5 MG TAB SL STA (21:52)
[2017-02-07 21:55] LABS: BASO % 0.2 %; BASO ABS # 0.02 K/uL (0-0.2); COMPLETE YES; EOS % 2.8 %; HEMATOCRIT 40.2 % (37-47); IG% 0.4 %; LYMPH % 14.1 %; LYMPH ABS # 1.41 K/uL (1.2-3.4); MEAN CELL VOLUME 87.4 fL (80-100); MEAN CORPUSCULAR HEMOGLOBIN 28.7 pg (25-34); MEAN CORPUSCULAR HGB CONC 32.8 g/dl (32-36); MONO % 6.4 %; NEUT % 76.1 %; PLATELET COUNT 173 K/uL (130-400); WHITE BLOOD COUNT 9.98 K/uL (4.8-10.8)
[2017-02-07 22:06] VITALS: TEMP 37.1
[2017-02-07 22:15] LABS: CREATININE 1.3 mg/dl (0.60-1.20)
[2017-02-07 22:16] LABS: BUN/CREATININE RATIO 9.2 (10-20); CALCIUM 8.6 mg/dl (8.5-10.1); POTASSIUM 4.3 mmol/L (3.5-5.1)
[2017-02-07] MEDS ORDERED: OPTIRAY 320 IV PRN (22:30)
--- NOTE | 2017-02-07 23:10 | DIAGNOSTIC IMAGING REPORT ---
CT ABD/PELVIS IV CONTRAST ONLY CLINICAL HISTORY: Worsening left lower quadrant abdominal pain COMPARISON STUDY: 02/04/2017 TECHNIQUE: Following the IV administration of 116 mL of Optiray-320, CT scan of the abdomen and pelvis was performed from the lung bases to the proximal femurs. Images are reviewed in the axial, sagittal, and coronal planes. IV contrast was administered without complication. CT DOSE: 603.88 mGy.cm FINDINGS: Lower chest: There are minimal dependent atelectatic changes. There is a stable 4 mm left lower lobe pulmonary nodule. Liver: There is hepatic steatosis. No focal masses are visualized. Gallbladder: Unremarkable. Spleen: The spleen remains mildly enlarged measuring 14.4 cm. Pancreas: There is a stable 25 mm cystic lesion involving the pancreatic head. Adrenal glands: Unremarkable. Kidneys: There is mild to moderate right-sided hydronephrosis, unchanged the prior study. The appearance is consistent with a UPJ type obstruction. Bowel: There are no transition zones indicate bowel obstruction. There are postsurgical changes involving the sigmoid. There is no evidence of acute diverticulitis. There is no evidence of acute appendicitis. There is a lipomatous ileocecal valve. Peritoneum: There is no intraperitoneal free air or abdominal ascites. Multiple ventral hernias are again visualized. These are prominently fat-containing although 1 hernias does contain a small portion of bowel. There is no evidence of obstruction.. Vasculature: The abdominal aorta is normal in course and caliber. Adenopathy: None. Pelvic viscera: There is a stable 13 mm enhancing uterine nodule. This likely represents a fibroid. Skeletal structures: No destructive osseous lesions are seen. IMPRESSION: 1. No significant change from the prior study 2. No evidence of bowel obstruction. No evidence of free air 3. Stable 4 mm left lower lobe pulmonary nodule 4. Hepatic steatosis 5. Stable mild splenomegaly 6. Stable right UPJ obstruction 7. Stable 2.5 cm cystic lesion within the pancreatic head 8. Stable 13 mm enhancing uterine nodule, likely representing a fibroid 9. No evidence of acute diverticulitis. No evidence of acute appendicitis. 10. Stable ventral hernias Electronically signed by: Dino Spann M.D. 02/07/2017 11:08 PM Dictated Date/Time: 02/07/2017 10:59 PM
[2017-02-07 23:56] LABS: URINE APPEARANCE CLEAR (CLEAR); URINE BILIRUBIN NEG (NEG); URINE COLOR YELLOW; URINE EPITHELIAL CELL AUTO >30 /lpf (0-5); URINE NITRITE NEG (NEG); URINE PH 5.5 (4.5-7.5); URINE SPECIFIC GRAVITY 1.044 (1.000-1.030); UROBILINOGEN NEG (NEG); ZZURINE CULT IF INDIC CATH NO
[2017-02-07 23:59] LABS: MANUAL MICROSCOPIC REQUIRED? NO; REVIEW REQ? NO
[2017-02-08 00:31] VITALS: BP 133/76; PULSE 73; O2SAT 93
--- NOTE | 2017-02-08 01:08 | EMERGENCY ROOM VISIT NOTE ---
History Report prepared by Tash: Wilber Caballero Under the Supervision of: Dr. Jarrod Cedeno D.O. First contact with patient: 20:19 Chief Complaint: URINARY SYMPTOMS Stated Complaint: LOWER BACK/STOMACH PAIN, DARK BROWN URINE COLOR History of Present Illness The patient is a 56 year old female who presents to the Emergency Room with complaints of constant lower abdominal pain beginning three days prior to arrival. She currently rates her discomfort as an 8/10 in severity. The patient associates worsening lower back pain, nausea, and brown urine with today's symptoms. She states she has been experiencing lower back pain and back spasms for several months, but it has gradually worsened. The patient notes she was admitted to the hospital in December for a severe bladder infection. As per daughter, the patient was admitted for 7-10 days at that time. It is noted the patient was in the ED three days ago and was treated for diverticulitis with a negative CT. The patient notes she has not eaten today and has decreased fluid intake. She states she has had an appendectomy but still has her gall bladder. As per daughter, the patient had a colostomy and a reversal. Pt denies numbness in the groin, lightheadedness, dizziness, headache, change in vision, fevers, chest pain, shortness of breath, vomiting, diarrhea, pain with urination, and melena. She denies any new weakness or numbness in her legs. 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 A total of 10 systems reviewed and were otherwise negative. Past Medical & Surgical Medical Problems: (1) History of colostomy reversal (2) Hx Perforated diverticulitis (3) Intra-abdominal free air (4) Rectosigmoid resection (5) Sepsis Surgical Problems: (1) Colostomy in place (2) S/P appendectomy Family History Psychiatric disorder Social History Smoking Status: Never Smoker Drug Use: none Marital Status: Housing Status: lives with family Occupation Status: employed Current/Historical Medications Scheduled Amitriptyline HCl (Amitriptyline HCl), 50 MG PO HS Aspirin (Aspirin Ec), 81 MG PO DAILY Atorvastatin (Atorvastatin Calcium), 20 MG PO DAILY Ciprofloxacin Hcl (Cipro), 500 MG PO BID Duloxetine HCl (Duloxetine HCl), 60 MG PO DAILY Fluticasone Propionate (Flovent Hfa), 2 PUFFS INH BID Gabapentin (Gabapentin), 600 MG PO TID Metformin HCl (Metformin HCl), 500 MG PO HOLD Metoprolol Succinate (Metoprolol Succinate ER), 37.5 MG PO BID Metronidazole (Flagyl), 500 MG PO TID Omeprazole (Prilosec), 40 MG PO QAM Sertraline HCl (Sertraline HCl), 200 MG PO DAILY Trazodone Hcl (Trazodone), 100 MG PO HS Scheduled PRN Lorazepam (Lorazepam), 0.5-1 MG PO Q6H PRN for Anxiety Sumatriptan Succinate (Imitrex), 50 MG PO UD PRN for Migraine Allergies Coded Allergies: Adhesives (Unverified Allergy, Intermediate, blistering, 02/04/17) Sulfa Antibiotics (Verified Allergy, Intermediate, swelling, 02/04/17) Penicillins (Verified Allergy, Unknown, ZOSYN = FLUSHED FASE, ITCHING, ) FLUSHED FACE, ITCHING TOLERATED PRIMAXIN 2013 ADMISSION Physical Exam Vital Signs Date Time Temp Pulse Resp B/P Pulse Ox O2 Delivery O2 Flow Rate FiO2 02/08/17 00:31 73 16 133/76 93 02/08/17 00:24 73 16 133/76 93 Room Air 02/07/17 22:06 37.1 69 16 133/76 99 Room Air 02/07/17 20:13 36.9 126 20 134/73 99 Room Air Physical Exam GENERAL: sitting up in bed, disheveled, no acute distress, non-toxic EYE EXAM: normal conjunctiva OROPHARYNX: no exudate, no erythema, lips, buccal mucosa, and tongue normal and mucous membranes are moist NECK: supple, no nuchal rigidity, no adenopathy, non-tender LUNGS: Clear to auscultation. Normal chest wall mechanics HEART: no murmurs, S1 normal and S2 normal ABDOMEN: Tender to palpation in left lower quadrant. Abdomen soft, normo-active bowel sounds, no masses, no rebound or guarding. BACK: Back is symmetrical on inspection and there is no deformity, no midline tenderness, no CVA tenderness. SKIN: no rashes and no bruising UPPER EXTREMITIES: upper extremities are grossly normal. LOWER EXTREMITIES: No pitting edema. NEURO EXAM: Normal sensorium, cranial nerves II-XII intact, normal speech, no weakness of arms, lower extremities flexion/extension hip, knee, ankle, EHL 5/5 bilaterally, gross sensations intact, patellar and Achilles reflexes are 2/4. Able to walk without difficulty. Medical Decision & Procedures ER Provider Diagnostic Interpretation: CT:Per my review, radiologist interpretation. CT ABD/PELVIS IV CONTRAST ONLY CLINICAL HISTORY: Worsening left lower quadrant abdominal pain COMPARISON STUDY: 02/04/2017 TECHNIQUE: Following the IV administration of 116 mL of Optiray-320, CT scan of the abdomen and pelvis was performed from the lung bases to the proximal femurs. Images are reviewed in the axial, sagittal, and coronal planes. IV contrast was administered without complication. CT DOSE: 603.88 mGy.cm FINDINGS: Lower chest: There are minimal dependent atelectatic changes. There is a stable 4 mm left lower lobe pulmonary nodule. Liver: There is hepatic steatosis. No focal masses are visualized. Gallbladder: Unremarkable. Spleen: The spleen remains mildly enlarged measuring 14.4 cm. Pancreas: There is a stable 25 mm cystic lesion involving the pancreatic head. Adrenal glands: Unremarkable. Kidneys: There is mild to moderate right-sided hydronephrosis, unchanged the prior study. The appearance is consistent with a UPJ type obstruction. Bowel: There are no transition zones indicate bowel obstruction. There are postsurgical changes involving the sigmoid. There is no evidence of acute diverticulitis. There is no evidence of acute appendicitis. There is a lipomatous ileocecal valve. Peritoneum: There is no intraperitoneal free air or abdominal ascites. Multiple ventral hernias are again visualized. These are prominently fat-containing although 1 hernias does contain a small portion of bowel. There is no evidence of obstruction.. Vasculature: The abdominal aorta is normal in course and caliber. Adenopathy: None. Pelvic viscera: There is a stable 13 mm enhancing uterine nodule. This likely represents a fibroid. Skeletal structures: No destructive osseous lesions are seen. IMPRESSION: 1. No significant change from the prior study 2. No evidence of bowel obstruction. No evidence of free air 3. Stable 4 mm left lower lobe pulmonary nodule 4. Hepatic steatosis 5. Stable mild splenomegaly 6. Stable right UPJ obstruction 7. Stable 2.5 cm cystic lesion within the pancreatic head 8. Stable 13 mm enhancing uterine nodule, likely representing a fibroid 9. No evidence of acute diverticulitis. No evidence of acute appendicitis. 10. Stable ventral hernias Electronically signed by: Dino Spann M.D. 02/07/2017 11:08 PM Laboratory Results 02/07/17 21:43 Red Blood Count 4.60, Mean Corpuscular Volume 87.4, Mean Corpuscular Hemoglobin 28.7, Mean Corpuscular Hemoglobin Concent 32.8, Mean Platelet Volume 9.0, Neutrophils (%) (Auto) 76.1, Lymphocytes (%) (Auto) 14.1, Monocytes (%) (Auto) 6.4, Eosinophils (%) (Auto) 2.8, Basophils (%) (Auto) 0.2, Neutrophils # (Auto) 7.59, Lymphocytes # (Auto) 1.41, Monocytes # (Auto) 0.64, Eosinophils # (Auto) 0.28, Basophils # (Auto) 0.02 02/07/17 21:43 Test 02/07/17 21:43 02/07/17 22:16 02/07/17 23:34 White Blood Count 9.98 K/uL (4.8-10.8) Red Blood Count 4.60 M/uL (4.2-5.4) Hemoglobin 13.2 g/dL (12.0-16.0) Hematocrit 40.2 % (37-47) Mean Corpuscular Volume 87.4 fL (80-100) Mean Corpuscular Hemoglobin 28.7 pg (25-34) Mean Corpuscular Hemoglobin Concent 32.8 g/dl (32-36) Platelet Count 173 K/uL (130-400) Mean Platelet Volume 9.0 fL (7.4-10.4) Neutrophils (%) (Auto) 76.1 % Lymphocytes (%) (Auto) 14.1 % Monocytes (%) (Auto) 6.4 % Eosinophils (%) (Auto) 2.8 % Basophils (%) (Auto) 0.2 % Neutrophils # (Auto) 7.59 K/uL (1.4-6.5) Lymphocytes # (Auto) 1.41 K/uL (1.2-3.4) Monocytes # (Auto) 0.64 K/uL (0.11-0.59) Eosinophils # (Auto) 0.28 K/uL (0-0.5) Basophils # (Auto) 0.02 K/uL (0-0.2) RDW Standard Deviation 47.6 fL (36.4-46.3) RDW Coefficient of Variation 15.0 % (11.5-14.5) Immature Granulocyte % (Auto) 0.4 % Immature Granulocyte # (Auto) 0.04 K/uL (0.00-0.02) Anion Gap 7.0 mmol/L (3-11) Est Creatinine Clear Calc Drug Dose 42.4 ml/min Estimated GFR () 52.4 Estimated GFR (Non- 45.2 BUN/Creatinine Ratio 9.2 (10-20) Calcium Level 8.6 mg/dl (8.5-10.1) Total Bilirubin 0.3 mg/dl (0.2-1) Direct Bilirubin 0.1 mg/dl (0-0.2) Aspartate Amino Transf (AST/SGOT) 37 U/L (15-37) Alanine Aminotransferase (ALT/SGPT) 39 U/L (12-78) Alkaline Phosphatase 136 U/L (45-117) Total Protein 7.2 gm/dl (6.4-8.2) Albumin 3.7 gm/dl (3.4-5.0) Lipase 189 U/L (73-393) Lactic Acid Level 1.2 mmol/L (0.4-2.0) Urine Color YELLOW Urine Appearance CLEAR (CLEAR) Urine pH 5.5 (4.5-7.5) Urine Specific [place] 1.044 (1.000-1.030) Urine Protein NEG (NEG) Urine Glucose (UA) NEG (NEG) Urine Ketones NEG (NEG) Urine Occult Blood NEG (NEG) Urine Nitrite NEG (NEG) Urine Bilirubin NEG (NEG) Urine Urobilinogen NEG (NEG) Urine Leukocyte Esterase TRACE (NEG) Urine WBC (Auto) 1-5 /hpf (0-5) Urine RBC (Auto) 0-4 /hpf (0-4) Urine Hyaline Casts (Auto) 0 /lpf (0-5) Urine Epithelial Cells (Auto) >30 /lpf (0-5) Urine Bacteria (Auto) NEG (NEG) Laboratory results per my review. Medications Administered Medications (Trade) Dose Ordered Sig/Nessa Route Start Time Stop Time Status Last Admin Dose Admin Sodium Chloride (Nss 1000ml) 1,000 ml @ 999 mls/hr Q1H1M STAT IV 02/07/17 20:34 02/07/17 21:34 DC 02/07/17 22:02 999 MLS/HR Ondansetron HCl (Zofran Inj) 4 mg NOW STAT IV 02/07/17 20:34 02/07/17 20:36 DC 02/07/17 21:56 4 MG Hydromorphone HCl (Dilaudid Inj) 0.5 mg NOW STAT IV 02/07/17 20:34 02/07/17 20:36 DC 02/07/17 21:56 0.5 MG Lorazepam (Ativan Tab) 0.5 mg NOW STAT SL 02/07/17 21:52 02/07/17 21:54 DC 02/07/17 23:43 0.5 MG ED Course ED COURSE: Vital signs were reviewed and showed tachycardia. The patients medical record was reviewed The above diagnostic studies were performed and reviewed. ED treatments and interventions as stated above. 2024: The patient was evaluated in room C9. A complete history and physical examination was performed. 2033: Ordered Dilaudid Inj 0.5 mg IV, Zofran Inj 4 mg IV, Sodium Chloride 1,000 ml @ 999 mls/hr IV. 2151: Ordered Ativan Tab 0.5 mg SL. 2325: Reevaluated and updated the patient at this time. It is noted the patient declined a pelvic exam. 0006: Upon reevaluation, the patient is doing well. I discussed my findings with the patient and she understands and agrees with the treatment plan. The patient has an appointment with her PCP tomorrow at 11 AM. Based on the patients age, coexisting illnesses, exam and lab findings the decision to treat as an outpatient was made. The patient remained stable while under my care. The patient appeared well at the time of discharge. Medical Decision Differential diagnoses includes but is not limited to gastritis, peptic ulcer disease, GERD, gallbladder disease, pancreatitis, small bowel obstruction, acute coronary syndrome, pericarditis, ischemic bowel, irritable bowel disease, irritable bowel syndrome, appendicitis, diverticulitis, malignancy, hernia, urinary tract infection, torsion, /ectopic , perforation, trauma, infectious. Patient is a 57-year-old female who presents the ER for left lower quadrant abdominal pain. She notes that this has been worsening for the past several days. She was seen here a couple days ago had a CT of her abdomen pelvis which was unremarkable. She was treated prophylactically with Flagyl and Cipro for possible diverticulitis. Labs today show no significant leukocytosis or anemia. BMP shows a creatinine 1.3. LFTs along with bilirubin and lipase is unremarkable. Lactic acid was normal. UA shows no infection. Patient was recently treated for UTI back in December but has no urinary symptoms at this time. CT performed today was unchanged from previous. Uncertain of the true etiology of the left lower quadrant abdominal pain. She has an appointment with her PCP tomorrow. Encouraged her to keep this appointment. Patient felt comfortable with this. She was given fluids and allowed along the ER. She was discharged follow-up with primary care doctor. Discussed with Pt concerning signs and symptoms to watch out for. Pt was instructed to follow up with their PCP and discussed with the patient their option to return to the ED at anytime for persistent or worsening symptoms. The appropriate anticipatory guidance and out-patient management, including indications for return to the emergency department, were explained at length to the patient and understood. Impression Primary Impression: LLQ abdominal pain Scribe Attestation The scribe's documentation has been prepared under my direction and personally reviewed by me in its entirety. I confirm that the note above accurately reflects all work, treatment, procedures, and medical decision making performed by me. Departure Information Dispostion Home / Self-Care Referrals Suad De León D.O. (PCP) Forms HOME CARE DOCUMENTATION FORM, IMPORTANT VISIT INFORMATION Patient Instructions Abdominal Pain - [facility], [facility] Additional Instructions Please follow up with your primary care doctor with in the next 24 hours. Any worsening of your symptoms, please return to the ED immediately. This includes fevers greater than 100.4, persistent nausea vomiting, worsening abdominal pain , or any other concerning signs or symptoms from her standpoint. Please continue your antibiotics as previously prescribed.
[2017-03-22] MEDS ORDERED: DICY10CA55 PO (11:02)
[2017-03-22] MEDS ORDERED: VNTHFA/IN INH (11:02)
[2017-03-22] MEDS ORDERED: SUMA25TA PO (11:02)
[2017-03-22] MEDS ORDERED: FLVHFA44 INH (11:02)
[2017-03-22] MEDS ORDERED: DIPH-416 PO (11:02)
[2017-03-22] MEDS ORDERED: CYCL5TAB PO (11:02)
[2017-03-22] MEDS ORDERED: METO25TA3 PO (11:02)
[2017-03-22] MEDS ORDERED: COLE1TAB PO (11:02)
[2017-03-22] MEDS ORDERED: MISCCAP80 PO (11:02)
[2017-03-22] MEDS ORDERED: GLC500 PO (11:02)
[2017-03-22] MEDS ORDERED: ROPI0.5T PO (11:02)
== END 2017-02-08 00:22 | disposition home or self-care (01) ==
LOC: C.EDB 20:12 → C.EDC 02-08 00:22
DX: R10.32 Left lower quadrant pain (principal); Z93.3 Colostomy status; Z79.82 Long term (current) use of aspirin

== ENCOUNTER → 2017-03-15 | Outpatient (CLI) | payer OTHER ==
[~2017-03-15] MED LIST changes: -CIPR1TAB10 PO; +COLE1TAB PO; +CYCL5TAB PO; +DICY10CA55 PO; +DIPH-416 PO; +FLVHFA44 INH; +GADAVIST IV PRN; +HYDR1CAP85 PO; +METO25TA3 PO; -METR-163 PO; +MISCCAP80 PO; +ROPI0.5T PO; +SUMA25TA PO; +VNTHFA/IN INH
--- NOTE | 2017-03-15 13:18 | DIAGNOSTIC IMAGING REPORT ---
MRI OF THE BRAIN WITHOUT AND WITH IV CONTRAST CLINICAL HISTORY: Headaches. COMPARISON STUDY: Head CT January 08, 2017. TECHNIQUE: Utilizing a 1.5 [place] magnet and dedicated coil, multiplanar, multiecho imaging of the brain was performed pre and postcontrast administration. IV administration of 7 mL of Gadavist contrast was uneventful. FINDINGS: There are no areas of restricted diffusion. No acute intracranial hemorrhage, midline shift or mass effect is present. Brain volume is normal. Ventricular system is normal. Basilar cisterns are patent. There are no extra-axial collections. Flow-voids for the major intracranial vessels are present. There are no intracranial masses or pathologic enhancement. There are numerous scattered white matter T2 hyperintense foci. Calvarial signal is maintained. Orbits are unremarkable. IMPRESSION: 1. No acute intracranial findings. 2. No intracranial masses or pathologic enhancement. 3. Scattered white matter T2 hyperintense foci which could reflect small vessel disease or sequela of migraine headaches. Electronically signed by: Phil Devries M.D. 03/15/2017 1:17 PM Dictated Date/Time: 03/15/2017 1:14 PM
== END | disposition home or self-care (01) ==
LOC: C.MRI 10:44
PROVIDERS: ATTEND Family Medicine
DX: R51 Headache (principal); R26.89 Other abnormalities of gait and mobility; R47.81 Slurred speech

== ENCOUNTER → 2017-03-28 | Day surgery (SDC) | payer OTHER ==
[2017-03-22 11:03] VITALS: BMI 33.0
[~2017-03-28] VITALS: Ht 149.9 cm; Wt 74.1 kg
[~2017-03-28] MED LIST changes: -FLVHFA110 INH; -GADAVIST IV PRN; +LIDOCAINE HCL 2% 2 ML VIAL (20MG/ML) ONE; +ONDANSETRON INJ 2 MG/ML 2 ML VIAL IV PRN; +PROPOFOL IV EMULSION 10 MG/ML 20 ML VIAL IV ONE; -SUMA25TA12 PO; -TPRSR/25 PO
[2017-03-28 08:49] VITALS: Ht 149.9 cm; Wt 74.1 kg
[2017-03-28 08:55] VITALS: TEMP 36.8
--- NOTE | 2017-03-28 09:06 | Endo History and Physical ---
History & Physical Date of Service: March 28, 2017. Chief Complaint: diarrhea Referring Physician: Dr. Suad De León History of Present Illness Patient for CRC screening, symptoms are diarrhea and abdominal pain dating over 2 years. Past Medical History Diabetes, Asthma, Gastrointestinal Disorder, Anxiety, Reflux, Hypertension, Depression Past Surgical History Hx Cardiac Surgery: No Hx Internal Defibrillator: Yes (MEDTRONIC) Hx Pacemaker: No Hx Abdominal Surgery: Yes (COLON RESECTION WITH COLOSTOMY AND REVERSAL, APPY) Hx Post-Op Nausea and Vomiting: No Hx Cancer Surgery: No Hx Thoracic Surgery: No Hx Orthopedic: No Hx Urinary Tract Surgery: No Family History IBD Social History Smoking Status: Never Smoker Hx Substance Use: No Hx Alcohol Use: No Allergies Coded Allergies: Adhesives (Unverified Allergy, Intermediate, blistering, 03/28/17) Sulfa Antibiotics (Verified Allergy, Intermediate, swelling, 03/28/17) Doxycycline (Verified Allergy, Unknown, UNKNOWN, 03/28/17) Penicillins (Verified Allergy, Unknown, ZOSYN = FLUSHED FASE, ITCHING, 09/04) FLUSHED FACE, ITCHING TOLERATED PRIMAXIN 2014 ADMISSION Current Medications Reported Home Medications Medications Dose Route/Sig Max Daily Dose Days Date Category Dose Instructions Ventolin Hfa (Albuterol) 200 Puffs/79517 Mcg Aers 2-4 Puffs INH Q6H PRN 03/22/17 Reported Imitrex (Sumatriptan Succinate) 25 Mg Tab 25 Mg PO PRN PRN 03/22/17 Reported Flovent Hfa (Fluticasone Propionate) 120 Puffs/5280 Mcg Aero 2 Puffs INH BID 30 03/22/17 Reported Toprol Xl (Metoprolol Succinate) 25 Mg Tabcr 25 Mg PO DAILY 03/22/17 Reported Metformin HCl 500 Mg Tab 2 Tab PO BID 03/22/17 Reported Requip (Ropinirole Hydrochloride) 0.5 Mg Tab 0.5 Mg PO HS 03/22/17 Reported Probiotic (Probiotic Product) 1 Cap Cap 1 Cap PO DAILY 03/22/17 Reported Lomotil (Diphenoxylate HCl/Atropine) Tab 1 Tab PO DIRECTED PRN 03/22/17 Reported Flexeril (Cyclobenzaprine Hcl) 5 Mg Tab 5 Mg PO TID PRN 03/22/17 Reported PRN Bentyl (Dicyclomine Hcl) 10 Mg Cap 10 Mg PO TID 03/22/17 Reported Colestid (Colestipol Hcl) 1 Gm Tab 1 Gm PO BID 03/22/17 Reported Gabapentin 300 Mg Cap 600 Mg PO TID 01/08/17 Reported Amitriptyline HCl 50 Mg Tab 50 Mg PO HS 01/08/17 Reported Duloxetine HCl 60 Mg Cap 60 Mg PO DAILY 01/08/17 Reported Trazodone (Trazodone HCl) 50 Mg Tab 100 Mg PO HS 01/08/17 Reported Atorvastatin Calcium (Atorvastatin) 20 Mg Tab 20 Mg PO DAILY 01/08/17 Reported Aspirin Ec (Aspirin) 81 Mg Tab 81 Mg PO DAILY 01/08/17 Reported Lorazepam 0.5 Mg Tab 0.5-1 Mg PO Q6H PRN 12/20/14 Reported Vital Signs Weight (Kilograms): 74.09 Height (Feet): 4 Height (Inches): 11 Date Time Temp Pulse Resp B/P Pulse Ox O2 Delivery O2 Flow Rate FiO2 03/28/17 08:55 36.8 84 20 171/89 100 Room Air Physical Exam General Appearance: no apparent distress Respiratory/Chest: Auscultation: breath sounds normal Cardiovascular: Heart Auscultation: RRR, II/ DAVIE Abdomen: Inspection & Palpation: soft Assessment and Plan Colonoscopy today, risks discussed to include bleeding, infection, perforation, pain and missed polyps.
--- NOTE | 2017-03-28 09:37 | Discharge Instructions ---
Endoscopy Patient Instructions Date / Procedure(s) Performed March 28, 2017. Colonoscopy Allergy Information Coded Allergies: Adhesives (Unverified Allergy, Intermediate, blistering, 03/28/17) Sulfa Antibiotics (Verified Allergy, Intermediate, swelling, 03/28/17) Doxycycline (Verified Allergy, Unknown, UNKNOWN, 03/28/17) Penicillins (Verified Allergy, Unknown, ZOSYN = FLUSHED FASE, ITCHING, 09/04) FLUSHED FACE, ITCHING TOLERATED PRIMAXIN 2013 ADMISSION Discharge Date / Findings March 28, 2017. Diverticulosis of the descending colon Internal hemorrhoids Provider Instructions Activity Restrictions - No exercising or heavy lifting for 24 hours. - Do not drink alcohol the day of the procedure. - Do not drive a car or operate machinery until the day after the procedure. - Do not make any important decisions or sign important papers in 24 hours after the procedure. Following Day: - Return to full activity which may include returning to work/school. Diet Start your diet with liquids and light foods (jello, soup, juice, toast). Then eat your usual diet if not nauseated. Treatment For Common After Affects For mild abdominal pain, bloating, or excessive gas: - Rest - Eat lightly - Lie on right side Follow-Up Information Repeat exam in 5 years (some limitations of the bowel preparation) Conisder stopping Metformin for 1-2 months to see if it is causing symptoms. Anesthesia Information What You Should Know You have had a procedure that required some medicine to reduce anxiety and discomfort. This treatment is called moderate sedation. After receiving the treatment, you may be sleepy, but you will be able to breathe on your own. The effects of the treatment may last for several hours. Follow these instructions along with Activity/Diet recommendations noted above: * Do NOT do anything where dizziness or clumsiness would be dangerous. * Rest quietly at home today, then you can be up and about tomorrow. * Have a responsible person stay with you the rest of today. * You may have had an I.V. today. If so, you may take the dressing off later today. Recommendations Call your doctor if: * Trouble breathing * Continuous vomiting for more than 24 hours * Temperature above 101 degrees * Severe abdominal pain or bloating * Pain not relieved by pain medicine ordered * There is increased drainage or redness from any incision * A large amount of rectal bleeding greater than 2-3 tablespoons. (If you had a polyp/s removed or have hemorrhoids, a small amount of blood - from the rectum is to be expected.) * You have any unanswered questions or concerns. IN THE EVENT OF A SERIOUS EMERGENCY, GO TO THE NEAREST EMERGENCY ROOM Your discharge instructions were prepared by provider Kenneth Esteban. Patient Instructions Signature Page Kalie Velasquez Patient (or Guardian) Signature/Date: I have read and understand the instructions given to me by my caregivers. Caregiver/RN/Doctor Signature/Date: The above-named patient and/or guardian has received patient instructions on this date. + Original Patient Signature Page (only) stays with chart. Please make copy for patient.
--- NOTE | 2017-03-28 09:42 | GI REPORT ---
Procedure Date: 03/28/2017 9:06 AM Procedure: Colonoscopy Indications: Screening for colorectal malignant neoplasm, Incidental diarrhea noted Medicines: Monitored Anesthesia Care Complications: No immediate complications. Estimated blood loss: Minimal. Estimated Blood Loss: Estimated blood loss was minimal. Procedure: Pre-Anesthesia Assessment: - Prior to the procedure, a History and Physical was performed, and patient medications, allergies and sensitivities were reviewed. The patient's tolerance of previous anesthesia was reviewed. - The risks and benefits of the procedure and the sedation options and risks were discussed with the patient. All questions were answered and informed consent was obtained. - Patient identification and proposed procedure were verified prior to the procedure by the physician, the nurse and the foreign diplomat. The procedure was verified in the procedure room. - Pre-procedure physical examination revealed no contraindications to sedation. - ASA Grade Assessment: III - A patient with severe systemic disease. - After reviewing the risks and benefits, the patient was deemed in satisfactory condition to undergo the procedure. - The anesthesia plan was to use monitored anesthesia care (MAC). - Immediately prior to administration of medications, the patient was re-assessed for adequacy to receive sedatives. - The heart rate, respiratory rate, oxygen saturations, blood pressure, adequacy of pulmonary ventilation, and response to care were monitored throughout the procedure. - The physical status of the patient was re-assessed after the procedure. After I obtained informed consent, the scope was passed under direct vision. Throughout the procedure, the patient's blood pressure, pulse, and oxygen saturations were monitored continuously. The scope was introduced through the anus and advanced to the terminal ileum. The colonoscopy was performed without difficulty. The patient tolerated the procedure well. The quality of the bowel preparation was adequate to identify polyps 6 mm and larger in size. Findings: The perianal and digital rectal examinations were normal. Pertinent negatives include normal sphincter tone. The terminal ileum appeared normal. There was evidence of a prior end-to-end colo-colonic anastomosis in the sigmoid colon at 18 cm from the dentate line. This was patent and was characterized by healthy appearing mucosa. The anastomosis was traversed. A few small-mouthed diverticula were found in the descending colon. Internal hemorrhoids were found during retroflexion. The hemorrhoids were mild. Normal mucosa was found in the entire colon. Biopsies for histology were taken with a cold forceps from the entire colon for evaluation of microscopic colitis. Estimated blood loss was minimal. The exam was otherwise without abnormality. Impression: - The examined portion of the ileum was normal. - Patent end-to-end colo-colonic anastomosis, characterized by healthy appearing mucosa. - Mild diverticulosis in the descending colon. - Internal hemorrhoids. - Normal mucosa in the entire examined colon. Biopsied. - The examination was otherwise normal. Recommendation: - Discharge patient to home (ambulatory). - Advance diet as tolerated today. - Await pathology results. - Repeat colonoscopy in 5 years because the bowel preparation was suboptimal. - Return to referring physician as previously scheduled. - Symptoms likely medication related, would favor metformin Kenneth Esteban D.O. Kenneth Esteban, 03/28/2017 9:42:19 AM This report has been signed electronically. Note Initiated On: 03/28/2017 9:06 AM I attest to the content of the Intraoperative Record and orders documented therein, exceptions below
[2017-03-28 10:03] VITALS: BP 140/72; PULSE 73; O2SAT 96
--- NOTE | 2017-03-28 10:09 | Anesthesiology Progress Note ---
Anesthesia Post Op Note Date & Time March 28, 2017 at 10:09 Vital Signs Pain Intensity: 0 Vital Signs Past 12 Hours Date Time Temp Pulse Resp B/P Pulse Ox O2 Delivery O2 Flow Rate FiO2 03/28/17 09:48 73 20 140/69 96 Room Air 03/28/17 09:33 73 20 111/75 98 Room Air 03/28/17 08:55 36.8 84 20 171/89 100 Room Air Notes Mental Status: alert / awake / arousable, participated in evaluation Pt Amnestic to Procedure: Yes Nausea / Vomiting: adequately controlled Pain: adequately controlled Airway Patency, RR, SpO2: stable & adequate BP & HR: stable & adequate Hydration State: stable & adequate Anesthetic Complications: no major complications apparent
== END | disposition home or self-care (01) ==
LOC: C.GI 08:18
PROVIDERS: ATTEND Internal Medicine Gastroenterology
DX: Z12.11 Encounter for screening for malignant neoplasm of colon (principal); R19.7 Diarrhea, unspecified; K57.30 Diverticulosis of large intestine without perforation or abscess without bleeding; K64.8 Other hemorrhoids; E11.9 Type 2 diabetes mellitus without complications; J45.909 Unspecified asthma, uncomplicated; K21.9 Gastro-esophageal reflux disease without esophagitis; I10 Essential (primary) hypertension; Z90.49 Acquired absence of other specified parts of digestive tract; Z95.810 Presence of automatic (implantable) cardiac defibrillator

== ENCOUNTER → 2017-05-04 | Day surgery (SDC) | payer OTHER ==
[2017-04-12 12:08] VITALS: Ht 149.9 cm; Wt 74.1 kg
[~2017-05-04] VITALS: Ht 149.9 cm; Wt 74.1 kg
[~2017-05-04] MED LIST changes: +ATROPINE SULFATE 0.1 MG/ML 5ML SYR IV PRN; +CIPROFLOXACIN 400MG / 200ML D5W IV SCH; -CYCL5TAB PO; +EpHEDrine SULFATE INJ 50 MG/ML AMP IV PRN; +FENTANYL CITRATE INJ 50 MCG/1 ML 2 ML VIAL ONE; +LACTATED RINGER'S 1000ML 1,000 ML IV SCH; +MIDAZOLAM HCL 1 MG/ML 2ML VIAL ONE; +ONDANSETRON INJ 2 MG/ML 2 ML VIAL ONE; +SUCCINYLCHOLINE CHLORIDE 20 MG/ML 10 ML VIAL IV ONE
[2017-05-04 10:26] VITALS: BP 111/73; PULSE 78; TEMP 37.5; O2SAT 95
[2017-05-04 10:54] LABS: PROTHROMBIN TIME (PATIENT) 10.2 SECONDS (9.0-12.0)
--- NOTE | 2017-05-04 11:27 | Endo History and Physical ---
History & Physical Date of Service: May 04, 2017. Chief Complaint: Diarrhea Referring Physician: History of Present Illness Patient referred for EGD / EUS due to recent onset diarrhea and an imaging study showing a 2.5 cm cystic lesion in the pancreatic head. Past Medical History Diabetes, Asthma, Gastrointestinal Disorder, Anxiety, Reflux, Hypertension, Depression Past Surgical History Hx Cardiac Surgery: No Hx Internal Defibrillator: Yes (MEDTRONIC) Hx Pacemaker: No Hx Abdominal Surgery: Yes (COLON RESECTION WITH COLOSTOMY AND REVERSAL, APPY) Hx Post-Op Nausea and Vomiting: No Hx Cancer Surgery: No Hx Thoracic Surgery: No Hx Orthopedic: No Hx Urinary Tract Surgery: No Social History Smoking Status: Never Smoker Hx Substance Use: No Hx Alcohol Use: No Allergies Coded Allergies: Adhesives (Unverified Allergy, Intermediate, blistering, 05/04/17) Sulfa Antibiotics (Verified Allergy, Intermediate, swelling, 05/04/17) Doxycycline (Verified Allergy, Unknown, UNKNOWN, 05/04/17) Penicillins (Verified Allergy, Unknown, ZOSYN = FLUSHED FASE, ITCHING, ) FLUSHED FACE, ITCHING TOLERATED PRIMAXIN 2014 ADMISSION Current Medications Reported Home Medications Medications Dose Route/Sig Max Daily Dose Days Date Category Ventolin Hfa (Albuterol) 200 Puffs/25821 Mcg Aers 2-4 Puffs INH Q6H PRN 03/22/17 Reported Imitrex (Sumatriptan Succinate) 25 Mg Tab 25 Mg PO PRN PRN 03/22/17 Reported Flovent Hfa (Fluticasone Propionate) 120 Puffs/5280 Mcg Aero 2 Puffs INH BID 30 03/22/17 Reported Toprol Xl (Metoprolol Succinate) 25 Mg Tabcr 25 Mg PO LUNCH 03/22/17 Reported Metformin HCl 500 Mg Tab 2 Tab PO BID 03/22/17 Reported Requip (Ropinirole Hydrochloride) 0.5 Mg Tab 0.5 Mg PO HS 03/22/17 Reported Probiotic (Probiotic Product) 1 Cap Cap 1 Cap PO QAM 03/22/17 Reported Lomotil (Diphenoxylate HCl/Atropine) Tab 1 Tab PO DIRECTED PRN 03/22/17 Reported Bentyl (Dicyclomine Hcl) 10 Mg Cap 10 Mg PO TID 03/22/17 Reported Colestid (Colestipol Hcl) 1 Gm Tab 1 Gm PO BID 03/22/17 Reported Gabapentin 300 Mg Cap 600 Mg PO TID 01/08/17 Reported Amitriptyline HCl 50 Mg Tab 50 Mg PO HS 01/08/17 Reported Duloxetine HCl 60 Mg Cap 60 Mg PO HS 01/08/17 Reported Trazodone (Trazodone HCl) 50 Mg Tab 100 Mg PO HS 01/08/17 Reported Atorvastatin Calcium (Atorvastatin) 20 Mg Tab 20 Mg PO QAM 01/08/17 Reported Aspirin Ec (Aspirin) 81 Mg Tab 81 Mg PO QAM 01/08/17 Reported Lorazepam 0.5 Mg Tab 0.5-1 Mg PO Q6H PRN 12/20/14 Reported Vital Signs Weight (Kilograms): 74.09 Height (Feet): 4 Height (Inches): 11 Date Time Temp Pulse Resp B/P (MAP) Pulse Ox O2 Delivery O2 Flow Rate FiO2 05/04/17 10:26 37.5 78 20 111/73 (86) 95 Room Air Physical Exam General Appearance: no apparent distress Respiratory/Chest: Auscultation: deminished air movement Cardiovascular: Heart Auscultation: RRR Abdomen: Inspection & Palpation: RUQ tenderness Assessment and Plan Patient referred for EUS / EGD to evaluate abdominal pain, diarrhea and a recently identified pancreatic cyst. We are planning for EGD and EUS evalaution today. We have discussed the risks to include bleeding, infection, perforation, pain and pancreatitis. Plan EGD EUS with FNA
--- NOTE | 2017-05-04 12:53 | GI REPORT ---
Procedure Date: 05/04/2017 12:30 PM Procedure: Upper GI endoscopy Indications: Epigastric abdominal pain, Abnormal CT of the GI tract, Diarrhea Medicines: General Anesthesia Complications: No immediate complications. Estimated blood loss: Minimal. Estimated Blood Loss: Estimated blood loss was minimal. Procedure: Pre-Anesthesia Assessment: - Prior to the procedure, a History and Physical was performed, and patient medications, allergies and sensitivities were reviewed. The patient's tolerance of previous anesthesia was reviewed. - The risks and benefits of the procedure and the sedation options and risks were discussed with the patient. All questions were answered and informed consent was obtained. - Patient identification and proposed procedure were verified prior to the procedure by the physician, the nurse and the production supervisor off shift. The procedure was verified in the procedure room. - Pre-procedure physical examination revealed no contraindications to sedation. - ASA Grade Assessment: III - A patient with severe systemic disease. - After reviewing the risks and benefits, the patient was deemed in satisfactory condition to undergo the procedure. - The anesthesia plan was to use general anesthesia. - Immediately prior to administration of medications, the patient was re-assessed for adequacy to receive sedatives. - The heart rate, respiratory rate, oxygen saturations, blood pressure, adequacy of pulmonary ventilation, and response to care were monitored throughout the procedure. - The physical status of the patient was re-assessed after the procedure. After obtaining informed consent, the endoscope was passed under direct vision. Throughout the procedure, the patient's blood pressure, pulse, and oxygen saturations were monitored continuously. The On-site loaner was introduced through the mouth, and advanced to the third part of duodenum. The upper GI endoscopy was accomplished without difficulty. The patient tolerated the procedure well. Findings: The examined esophagus was normal. The Z-line was regular and was found 36 cm from the incisors. Diffuse mild inflammation characterized by erythema and granularity was found in the entire examined stomach. Biopsies were taken with a cold forceps for histology. Estimated blood loss was minimal. The examined duodenum was normal. Biopsies for histology were taken with a cold forceps for for evaluation of celiac disease. Estimated blood loss was minimal. Impression: - Normal esophagus. - Z-line regular, 36 cm from the incisors. - Chronic gastritis. Biopsied. - Normal examined duodenum. Biopsied. Recommendation: - Perform an upper endoscopic ultrasound (UEUS) today. - Await pathology results. Marten Esteban, D.Jomar Esteban DO 05/04/2017 12:53:02 PM This report has been signed electronically. Note Initiated On: 05/04/2017 12:30 PM I attest to the content of the Intraoperative Record and orders documented therein, exceptions below
--- NOTE | 2017-05-04 13:17 | GI REPORT ---
Procedure Date: 05/04/2017 12:32 PM Procedure: Upper EUS Indications: Pancreatic cyst on CT scan Medicines: General Anesthesia, Cipro 400 mg IV Complications: No immediate complications. Estimated blood loss: Minimal. Estimated Blood Loss: Estimated blood loss was minimal. Procedure: Pre-Anesthesia Assessment: - Prior to the procedure, a History and Physical was performed, and patient medications, allergies and sensitivities were reviewed. The patient's tolerance of previous anesthesia was reviewed. - The risks and benefits of the procedure and the sedation options and risks were discussed with the patient. All questions were answered and informed consent was obtained. - Patient identification and proposed procedure were verified prior to the procedure by the physician, the nurse and the hospital clinic assistant. The procedure was verified in the procedure room. - Pre-procedure physical examination revealed no contraindications to sedation. - ASA Grade Assessment: III - A patient with severe systemic disease. - After reviewing the risks and benefits, the patient was deemed in satisfactory condition to undergo the procedure. - The anesthesia plan was to use general anesthesia. - Immediately prior to administration of medications, the patient was re-assessed for adequacy to receive sedatives. - The heart rate, respiratory rate, oxygen saturations, blood pressure, adequacy of pulmonary ventilation, and response to care were monitored throughout the procedure. - The heart rate, respiratory rate, oxygen saturations, blood pressure, adequacy of pulmonary ventilation, and response to care were monitored throughout the procedure. - The physical status of the patient was re-assessed after the procedure. After obtaining informed consent, the endoscope was passed under direct vision. Throughout the procedure, the patient's blood pressure, pulse, and oxygen saturations were monitored continuously. The Endosonoscope was introduced through the mouth, and advanced to the second part of duodenum. The upper EUS was accomplished without difficulty. The patient tolerated the procedure well. Findings: Endosonographic Finding : There was no sign of significant endosonographic abnormality in the ampulla. No masses were identified. There was no sign of significant endosonographic abnormality in the common bile duct. No stones and no biliary sludge were identified. The CBD was 3.2 mm. There was no sign of significant endosonographic abnormality in the gallbladder. There was no sign of significant endosonographic abnormality in the left lobe of the liver aside from a small cyst measuring 6 x 5 mm. Homogeneous parenchyma and no focal pathology were identified. No lymphadenopathy seen. There was no sign of significant endosonographic abnormality in the left adrenal gland. No adrenal gland enlargement was identified. A hypoechoic lesion suggestive of a cyst was identified in the pancreatic head. It is not in obvious communication with the pancreatic duct. The lesion measured 22 mm by 20 mm in maximal cross-sectional diameter. There was a single compartment without septae. The outer wall of the lesion was not seen. There was no associated mass. There was no internal debris within the fluid-filled cavity. Diagnostic needle aspiration for fluid was performed. Color Doppler imaging was utilized prior to needle puncture to confirm a lack of significant vascular structures within the needle path. One pass was made with the 22 gauge needle using a transduodenal approach. A stylet was used. The amount of fluid collected was 5 mL. The fluid was clear, serous and slightly viscous. Sample(s) were sent for amylase, cytology and CEA. Estimated blood loss was minimal. There was no sign of significant endosonographic abnormality in the pancreatic body, in the pancreatic tail, in the pancreatic neck and in the main pancreatic duct. The pancreatic duct measured up to 1 mm in diameter. The pancreatic duct was thin in caliber and measured 1.2 mm. Impression: - Normal ampulla. - 3.2 mm common bile duct. - Normla gallbladder. - 6 mm cyst in the left lobe of the liver. - Normal left adrenal gland. - A cystic lesion was seen in the pancreatic head. The diagnosis is an intraductal papillary mucinous neoplasm. Fine needle aspiration for fluid performed. Recommendation: - Discharge patient to home (ambulatory). - Advance diet as tolerated today. - Cipro (ciprofloxacin) 500 mg PO BID for 3 days. - Await cytology results and await tumor markers. - If findings consistent with an IPMN would suggest an annual CT or MRI for surveillance. Kenneth Esteban D.O. Kenneth Esteban, 05/04/2017 1:17:34 PM This report has been signed electronically. Note Initiated On: 05/04/2017 12:32 PM I attest to the content of the Intraoperative Record and orders documented therein, exceptions below
--- NOTE | 2017-05-04 13:20 | [facility] Post Operative Brief Note ---
Immediate Operative Summary Operative Date May 04, 2017. Pre-Operative Diagnosis pancreatic cyst Post-Operative Diagnosis Diffuse gastritis 20 mm pancreatic cyst Procedure(s) Performed Upper Gastrointestinal Endoscopy with biopies, Upper Endoscopic Ultrasonography with fine needle aspirations Surgeon Dr Sammy Esteban Cash Processor Surgeon(s) none Estimated Blood Loss 0 ml Findings Diffuse gastritis 20 mm pancreatic cyst Specimens 1)Gastric biopsies 2) Duodenal biopsies 3) FNA of pancreatic cyst (CEA, Amylase, Cytology) Drains None Anesthesia General Complication(s) None Disposition Recovery Room / PACU
--- NOTE | 2017-05-04 13:21 | Discharge Instructions ---
Endoscopy Patient Instructions Date / Procedure(s) Performed May 04, 2017. EGD, Other (Endoscopic Ultrasound) Allergy Information Coded Allergies: Adhesives (Unverified Allergy, Intermediate, blistering, 05/04/17) Sulfa Antibiotics (Verified Allergy, Intermediate, swelling, 05/04/17) Doxycycline (Verified Allergy, Unknown, UNKNOWN, 05/04/17) Penicillins (Verified Allergy, Unknown, ZOSYN = FLUSHED FASE, ITCHING, ) FLUSHED FACE, ITCHING TOLERATED PRIMAXIN 2013 ADMISSION Discharge Date / Findings May 04, 2017. Diffuse Gastritis 20 mm cyst of the pancreatic head Medication Instructions Reported Home Medications Medications Dose Route/Sig Max Daily Dose Days Date Category Ventolin Hfa (Albuterol) 200 Puffs/90198 Mcg Aers 2-4 Puffs INH Q6H PRN 03/22/17 Reported Imitrex (Sumatriptan Succinate) 25 Mg Tab 25 Mg PO PRN PRN 03/22/17 Reported Flovent Hfa (Fluticasone Propionate) 120 Puffs/5280 Mcg Aero 2 Puffs INH BID 30 03/22/17 Reported Toprol Xl (Metoprolol Succinate) 25 Mg Tabcr 25 Mg PO LUNCH 03/22/17 Reported Metformin HCl 500 Mg Tab 2 Tab PO BID 03/22/17 Reported Requip (Ropinirole Hydrochloride) 0.5 Mg Tab 0.5 Mg PO HS 03/22/17 Reported Probiotic (Probiotic Product) 1 Cap Cap 1 Cap PO QAM 03/22/17 Reported Lomotil (Diphenoxylate HCl/Atropine) Tab 1 Tab PO DIRECTED PRN 03/22/17 Reported Bentyl (Dicyclomine Hcl) 10 Mg Cap 10 Mg PO TID 03/22/17 Reported Colestid (Colestipol Hcl) 1 Gm Tab 1 Gm PO BID 03/22/17 Reported Gabapentin 300 Mg Cap 600 Mg PO TID 01/08/17 Reported Amitriptyline HCl 50 Mg Tab 50 Mg PO HS 01/08/17 Reported Duloxetine HCl 60 Mg Cap 60 Mg PO HS 01/08/17 Reported Trazodone (Trazodone HCl) 50 Mg Tab 100 Mg PO HS 01/08/17 Reported Atorvastatin Calcium (Atorvastatin) 20 Mg Tab 20 Mg PO QAM 01/08/17 Reported Aspirin Ec (Aspirin) 81 Mg Tab 81 Mg PO QAM 01/08/17 Reported Lorazepam 0.5 Mg Tab 0.5-1 Mg PO Q6H PRN 12/20/14 Reported Provider Instructions Activity Restrictions - No exercising or heavy lifting for 24 hours. - Do not drink alcohol the day of the procedure. - Do not drive a car or operate machinery until the day after the procedure. - Do not make any important decisions or sign important papers in 24 hours after the procedure. Following Day: - Return to full activity which may include returning to work/school. Diet Start your diet with liquids and light foods (jello, soup, juice, toast). Then eat your usual diet if not nauseated. Treatment For Common After Affects For mild abdominal pain, bloating, or excessive gas: - Rest - Eat lightly - Lie on right side Follow-Up Information Follow-up with Ms. Melara in 6 months Cirprofloxacin 500 mg Twice daily for 3 days Anesthesia Information What You Should Know You have had a procedure that required some medicine to reduce anxiety and discomfort. This treatment is called moderate sedation. After receiving the treatment, you may be sleepy, but you will be able to breathe on your own. The effects of the treatment may last for several hours. Follow these instructions along with Activity/Diet recommendations noted above: * Do NOT do anything where dizziness or clumsiness would be dangerous. * Rest quietly at home today, then you can be up and about tomorrow. * Have a responsible person stay with you the rest of today. * You may have had an I.V. today. If so, you may take the dressing off later today. Recommendations Call your doctor if: * Trouble breathing * Continuous vomiting for more than 24 hours * Temperature above 101 degrees * Severe abdominal pain or bloating * Pain not relieved by pain medicine ordered * There is increased drainage or redness from any incision * A large amount of rectal bleeding greater than 2-3 tablespoons. (If you had a polyp/s removed or have hemorrhoids, a small amount of blood - from the rectum is to be expected.) * You have any unanswered questions or concerns. IN THE EVENT OF A SERIOUS EMERGENCY, GO TO THE NEAREST EMERGENCY ROOM Your discharge instructions were prepared by provider Kenneth Esteban. Patient Instructions Signature Page Kalie Velasquez Patient (or Guardian) Signature/Date: I have read and understand the instructions given to me by my caregivers. Caregiver/RN/Doctor Signature/Date: The above-named patient and/or guardian has received patient instructions on this date. + Original Patient Signature Page (only) stays with chart. Please make copy for patient.
--- NOTE | 2017-05-04 14:16 | Anesthesiology Progress Note ---
Anesthesia Post Op Note Date & Time May 04, 2017 at 14:16 Vital Signs Pain Intensity: 0 Vital Signs Past 12 Hours Date Time Temp Pulse Resp B/P (MAP) Pulse Ox O2 Delivery O2 Flow Rate FiO2 05/04/17 14:05 36.2 73 16 161/63 98 Room Air 05/04/17 13:55 76 16 115/69 100 Room Air 05/04/17 13:45 80 16 115/69 90 Room Air 05/04/17 13:35 77 16 154/82 99 Mask 10 05/04/17 13:26 36.7 79 16 163/87 96 Mask 10 05/04/17 10:26 37.5 78 20 111/73 (86) 95 Room Air Notes Mental Status: alert / awake / arousable, participated in evaluation Pt Amnestic to Procedure: Yes Nausea / Vomiting: adequately controlled Pain: adequately controlled Airway Patency, RR, SpO2: stable & adequate BP & HR: stable & adequate Hydration State: stable & adequate Anesthetic Complications: no major complications apparent
[2017-05-04 14:19] VITALS: BP 146/66; PULSE 72; TEMP 36.7; O2SAT 95
[2017-05-04 14:50] VITALS: BP 124/69; PULSE 77; O2SAT 93
[2017-05-04 15:20] VITALS: BP 138/62; PULSE 72; TEMP 37; O2SAT 96
== END | disposition home or self-care (01) ==
LOC: C.ACU 09:30
PROVIDERS: ATTEND Internal Medicine Gastroenterology
DX: K29.50 Unspecified chronic gastritis without bleeding (principal); D13.6 Benign neoplasm of pancreas; K76.89 Other specified diseases of liver; K21.9 Gastro-esophageal reflux disease without esophagitis; I10 Essential (primary) hypertension; E11.9 Type 2 diabetes mellitus without complications; J45.909 Unspecified asthma, uncomplicated; F41.9 Anxiety disorder, unspecified; F32.9 Major depressive disorder, single episode, unspecified; Z79.4 Long term (current) use of insulin; Z79.899 Other long term (current) drug therapy

== ENCOUNTER 2017-05-28 20:56 | Emergency (ER) | payer OTHER ==
[~2017-05-28] VITALS: Ht 152.4 cm; Wt 74.6 kg
[~2017-05-28 20:56] MED LIST changes: -ATROPINE SULFATE 0.1 MG/ML 5ML SYR IV PRN; -CIPROFLOXACIN 400MG / 200ML D5W IV SCH; -EpHEDrine SULFATE INJ 50 MG/ML AMP IV PRN; -FENTANYL CITRATE INJ 50 MCG/1 ML 2 ML VIAL ONE; -HYDR1CAP85 PO; -LACTATED RINGER'S 1000ML 1,000 ML IV SCH; -LIDOCAINE HCL 2% 2 ML VIAL (20MG/ML) ONE; -MIDAZOLAM HCL 1 MG/ML 2ML VIAL ONE; -OMEP40CA41 PO; -ONDANSETRON INJ 2 MG/ML 2 ML VIAL IV PRN; -ONDANSETRON INJ 2 MG/ML 2 ML VIAL ONE; -PROPOFOL IV EMULSION 10 MG/ML 20 ML VIAL IV ONE; -SUCCINYLCHOLINE CHLORIDE 20 MG/ML 10 ML VIAL IV ONE; -ZLF/100 PO
[2017-05-28 20:59] VITALS: TEMP 36.7; Ht 152.4 cm; Wt 74.6 kg
--- NOTE | 2017-05-28 21:57 | EMERGENCY ROOM VISIT NOTE ---
History Report prepared by Tash: Yas Bradford Under the Supervision of: Payton HooperO. First contact with patient: 21:12 Chief Complaint: REFERRED BY DOCTOR Stated Complaint: LUNGS,HEART History of Present Illness The patient is a 57 year old female who presents to the Emergency Room with complaints of intermittent chest pain and heaviness beginning 3 days ago. The patient states that her chest pain comes intermittently and lasts about 2-3 minutes and alternates between a sharp and dull pain. She reports that she saw her PCP 3 days ago and was referred here due to an elevated D-Dimer result that she got 3 days ago but did not hear the message until today. She complains of leg cramping, shortness of breath, urinary retention, pain radiating down her left arm and vomiting yesterday.The patient states that she has a history of HOCM and chronic diaphoresis and notes that she takes Aspirin daily. She denies any dysuria, recent trips, and history of blood clots. She notes that her father had multiple heart attacks in his 50s. The patient states that she is not on any blood thinners. She reports that exertion worsens her symptoms. Source of History: patient Onset: 3 days ago Position: chest Quality: other (heaviness) Timing: intermittent Modifying Factors (Worsening): exertion Associated Symptoms: + SOB, + vomiting Note: She complains of leg cramping, urinary retention, pain radiating down her left arm. She denies any dysuria, recent trips, and history of blood clots. Review of Systems See HPI for pertinent positives & negatives. A total of 10 systems reviewed and were otherwise negative. Past Medical & Surgical Medical Problems: (1) History of colostomy reversal (2) Hx Perforated diverticulitis (3) Intra-abdominal free air (4) Rectosigmoid resection (5) Sepsis Surgical Problems: (1) Colostomy in place (2) S/P appendectomy Family History Psychiatric disorder Social History Smoking Status: Never Smoker Drug Use: none Marital Status: Housing Status: lives with family Occupation Status: employed Current/Historical Medications Scheduled Amitriptyline HCl (Amitriptyline HCl), 50 MG PO HS Aspirin (Aspirin Ec), 81 MG PO QAM Atorvastatin (Atorvastatin Calcium), 20 MG PO QAM Colestipol Hcl (Colestid), 1 GM PO BID Dicyclomine Hcl (Bentyl), 10 MG PO TID Duloxetine HCl (Duloxetine HCl), 60 MG PO HS Fluticasone Propionate (Flovent Hfa), 2 PUFFS INH BID Gabapentin (Gabapentin), 600 MG PO TID Metformin HCl (Metformin HCl), 1,000 MG PO BID Metoprolol Succinate (Toprol Xl), 25 MG PO LUNCH Probiotic Product (Probiotic), 1 CAP PO QAM Ropinirole Hydrochloride (Requip), 0.5 MG PO HS Trazodone Hcl (Trazodone), 100 MG PO HS Scheduled PRN Albuterol Hfa (Ventolin Hfa), 2-4 PUFFS INH Q6H PRN for Shortness of Breath Diphenoxylate/Atropine (Lomotil), 1 TAB PO DIRECTED PRN for Diarrhea Lorazepam (Lorazepam), 0.5-1 MG PO Q6H PRN for Anxiety Sumatriptan Succinate (Imitrex), 25 MG PO PRN PRN for Migraine Allergies Coded Allergies: Adhesives (Unverified Allergy, Intermediate, blistering, 05/04/17) Sulfa Antibiotics (Verified Allergy, Intermediate, swelling, 05/04/17) Doxycycline (Verified Allergy, Unknown, UNKNOWN, 05/04/17) Penicillins (Verified Allergy, Unknown, ZOSYN = FLUSHED FASE, ITCHING, ) FLUSHED FACE, ITCHING TOLERATED PRIMAXIN 2013 ADMISSION Physical Exam Vital Signs Date Time Temp Pulse Resp B/P (MAP) Pulse Ox O2 Delivery O2 Flow Rate FiO2 05/28/17 20:59 36.7 95 24 169/86 92 Room Air Physical Exam GENERAL: Patient is awake, alert, and in no acute distress. Patient is resting comfortably and somewhat anxious appearing EYES: The conjunctivae are clear. The pupils are round and reactive. EARS, NOSE, MOUTH AND THROAT: The nose is without any evidence of any deformity. Mucous membranes are moist tongue is midline NECK: The neck is nontender and supple. RESPIRATORY: Normal respiratory effort is noted there is no evidence of wheezing rhonchi or rales CARDIOVASCULAR: Regular rate and rhythm noted there no murmurs rubs or gallops normal S1 normal S2 GASTROINTESTINAL: The abdomen is soft. Bowel sounds are present in all quadrants. Abdomen is nontender MUSCULOSKELETAL/EXTREMITIES: There is no evidence of gross deformity full range of motion is noted in the hips and shoulders SKIN: There is no obvious evidence of any rash. There are no petechiae, pallor or cyanosis noted. No pedal edema noted, there was right calf tenderness on palpation NEUROLOGIC: Patient is awake alert and oriented x3 Medical Decision & Procedures ER Provider Diagnostic Interpretation: Radiology results as stated below per my review and radiologist interpretation: CHEST ONE VIEW PORTABLE FINDINGS: The heart is enlarged. There is aortic tortuosity. There is no failure. There is no focal pulmonary consolidation. There is no free intraperitoneal air. There is a right subclavian dual-chamber central venous pacemaker.[ No pleural effusions are visualized. IMPRESSION: No active disease in the chest. Electronically signed by: Dino Spann M.D. 05/28/2017 9:56 PM Dictated Date/Time: 05/28/2017 9:55 PM Ultrasound of the lower extremities was obtained in the emergency department. The report was reviewed. Preliminary Findings Only See Final Report For Complete Findings US VENOUS BILATERAL LOWER EXTREMITIES: Comparison: US dated 11/18/2014. No evidence of DVT in the bilateral lower extremities. Radiologist: Grace Parks MD Laboratory Results 05/28/17 22:47 Red Blood Count 4.31, Mean Corpuscular Volume 87.9, Mean Corpuscular Hemoglobin 28.3, Mean Corpuscular Hemoglobin Concent 32.2, Mean Platelet Volume 9.0, Neutrophils (%) (Auto) 78.8, Lymphocytes (%) (Auto) 15.4, Monocytes (%) (Auto) 3.9, Eosinophils (%) (Auto) 1.6, Basophils (%) (Auto) 0.1, Neutrophils # (Auto) 8.34, Lymphocytes # (Auto) 1.63, Monocytes # (Auto) 0.41, Eosinophils # (Auto) 0.17, Basophils # (Auto) 0.01 05/28/17 22:00 Test 05/28/17 22:00 05/28/17 22:47 Anion Gap 8.0 mmol/L (3-11) Est Creatinine Clear Calc Drug Dose 49.7 ml/min Estimated GFR () 63.6 Estimated GFR (Non- 54.9 BUN/Creatinine Ratio 11.9 (10-20) Calcium Level 8.7 mg/dl (8.5-10.1) Total Bilirubin 0.4 mg/dl (0.2-1) Direct Bilirubin 0.1 mg/dl (0-0.2) Aspartate Amino Transf (AST/SGOT) 33 U/L (15-37) Alanine Aminotransferase (ALT/SGPT) 31 U/L (12-78) Alkaline Phosphatase 126 U/L (45-117) Total Creatine Kinase 61 U/L (26-192) Creatine Kinase MB 3.9 ng/ml (0.5-3.6) Creatine Kinase MB Ratio 6.4 (0-3.0) Troponin I 0.064 ng/ml (0-0.045) Total Protein 7.0 gm/dl (6.4-8.2) Albumin 3.6 gm/dl (3.4-5.0) Lipase 211 U/L (73-393) White Blood Count 10.58 K/uL (4.8-10.8) Red Blood Count 4.31 M/uL (4.2-5.4) Hemoglobin 12.2 g/dL (12.0-16.0) Hematocrit 37.9 % (37-47) Mean Corpuscular Volume 87.9 fL (80-100) Mean Corpuscular Hemoglobin 28.3 pg (25-34) Mean Corpuscular Hemoglobin Concent 32.2 g/dl (32-36) Platelet Count 220 K/uL (130-400) Mean Platelet Volume 9.0 fL (7.4-10.4) Neutrophils (%) (Auto) 78.8 % Lymphocytes (%) (Auto) 15.4 % Monocytes (%) (Auto) 3.9 % Eosinophils (%) (Auto) 1.6 % Basophils (%) (Auto) 0.1 % Neutrophils # (Auto) 8.34 K/uL (1.4-6.5) Lymphocytes # (Auto) 1.63 K/uL (1.2-3.4) Monocytes # (Auto) 0.41 K/uL (0.11-0.59) Eosinophils # (Auto) 0.17 K/uL (0-0.5) Basophils # (Auto) 0.01 K/uL (0-0.2) RDW Standard Deviation 48.4 fL (36.4-46.3) RDW Coefficient of Variation 15.4 % (11.5-14.5) Immature Granulocyte % (Auto) 0.2 % Immature Granulocyte # (Auto) 0.02 K/uL (0.00-0.02) Prothrombin Time 10.0 SECONDS (9.0-12.0) Prothromb Time International Ratio 0.9 (0.9-1.1) Activated Partial Thromboplast Time 26.1 SECONDS (21.0-31.0) Partial Thromboplastin Ratio 1.0 D-Dimer 350 ug/L FEU (0-500) Laboratory results per my review. ECG Indication: chest pain Rate (beats per minute): 81 Rhythm: normal sinus Findings: ST depression (Lateral), T-wave inversion, no ectopy, other (LVH by voltage criteria suggested ) Comparison ECG Date: 01/09/2017 Change: no significant change ED Course 2111: The patient was evaluated in room C3. A complete history and physical examination were performed. 5: I reevaluated and updated the patient. 2356: Upon reevaluation, the patient is doing well. I discussed the results and treatment plan with the patient. She verbalized agreement of the treatment plan. The patient was discharged home. Medical Decision Differential diagnosis: Etiologies such as cardiac ischemia, aortic dissection, pulmonary embolism, pneumonia, pneumothorax, musculoskeletal, infections, pericarditis, myocarditis , esophageal rupture, gastrointestinal, as well as others were entertained. Medication Reconciliation: I attest that I have personally reviewed the patient' s current medications list. Blood pressure screening: Patient was found to have an elevated blood pressure and was referred to their primary doctor for recheck and further treatment. The patient is a 57-year-old female who presented to the emergency department for evaluation of chest pain and elevated d-dimer. The patient has a history of cardiomyopathy and his had chest pain in the past. She went to see her primary care physician last week and had a d-dimer drawn. Come to the emergency department for further workup. The patient has had ongoing chest discomfort. Her EKG does not show any acute changes from previous but it is grossly abnormal because of her underlying cardiomyopathy. She also had an elevated troponin. She does appear to have a chronically elevated troponin in the past in review her previous cardiology evaluations this appears to be secondary to her cardiomyopathy. I discussed the patient's laboratory and radiographic studies with her. At this time she has a normal d-dimer. Dopplers of lower extremities were also obtained which did not show any signs of venous thromboembolic disease. I do not think it is likely this represents an acute coronary syndrome because I would expect her troponin to be much more elevated given her ongoing pain for many days. I also do not feel this represents a pulmonary embolism. She was encouraged to rest and avoid any strenuous activity. She was also encouraged to call her primary care physician as well as her primary assistant corporate secretary schedule follow-up appointment. Otherwise she was encouraged to return the emergency department immediately if symptoms change worsen or the need arises. Impression Primary Impression: Substernal chest pain Scribe Attestation The scribe's documentation has been prepared under my direction and personally reviewed by me in its entirety. I confirm that the note above accurately reflects all work, treatment, procedures, and medical decision making performed by me. Departure Information Dispostion Home / Self-Care Referrals Suad De León D.O. (PCP) Forms HOME CARE DOCUMENTATION FORM, IMPORTANT VISIT INFORMATION, WORK / SCHOOL INSTRUCTIONS Patient Instructions ED Chest Pain Atypical Unkn Cause, My [facility] Additional Instructions Call your family to schedule a follow-up appointment. Rest and avoid any strenuous activity. Return to the emergency department immediately if symptoms change worsen or the need arises.
[2017-05-28 22:26] LABS: BUN/CREATININE RATIO 11.9 (10-20); CALCIUM 8.7 mg/dl (8.5-10.1); CREATININE 1.1 mg/dl (0.60-1.20); POTASSIUM 4.1 mmol/L (3.5-5.1)
[2017-05-28 22:34] LABS: CKMB/CK RATIO 6.4 (0-3.0)
[2017-05-28 22:58] LABS: BASO % 0.1 %; BASO ABS # 0.01 K/uL (0-0.2); COMPLETE YES; EOS % 1.6 %; HEMATOCRIT 37.9 % (37-47); IG% 0.2 %; LYMPH % 15.4 %; LYMPH ABS # 1.63 K/uL (1.2-3.4); MEAN CELL VOLUME 87.9 fL (80-100); MEAN CORPUSCULAR HEMOGLOBIN 28.3 pg (25-34); MEAN CORPUSCULAR HGB CONC 32.2 g/dl (32-36); MONO % 3.9 %; NEUT % 78.8 %; PLATELET COUNT 220 K/uL (130-400); RED BLOOD COUNT 4.31 M/uL (4.2-5.4); WHITE BLOOD COUNT 10.58 K/uL (4.8-10.8)
[2017-05-28 23:13] LABS: INR 0.9 (0.9-1.1)
[2017-05-29 00:08] VITALS: BP 139/79; PULSE 83; O2SAT 95
--- NOTE | 2017-05-29 06:29 | DIAGNOSTIC IMAGING REPORT ---
BILATERAL LOWER EXTREMITY VENOUS DOPPLER HISTORY: Pain. Edema. pain and swelling COMPARISON STUDY: 11/18/2014 FINDINGS: There is normal compressibility, flow, and augmentation within the bilateral lower extremity deep venous systems. IMPRESSION: No DVT within the right or left lower extremity. Electronically signed by: Fredis Reece M.D. 05/29/2017 6:28 AM Dictated Date/Time: 05/29/2017 6:28 AM
== END 2017-05-29 00:09 | disposition home or self-care (01) ==
LOC: C.EDB 20:57 → C.EDC 05-29 00:09
DX: R07.2 Precordial pain (principal); I42.2 Other hypertrophic cardiomyopathy; R61 Generalized hyperhidrosis; Z79.82 Long term (current) use of aspirin; Z79.899 Other long term (current) drug therapy

== ENCOUNTER 2017-10-13 12:54 | Inpatient (IN) | payer OTHER ==
[~2017-10-13] VITALS: Ht 152.4 cm; Wt 74.3 kg
[2017-10-13] VITALS (10 sets, daily range): BP systolic 145–162; BP diastolic 73–99; PULSE 75–80; TEMP 36.9; O2SAT 96–100; Ht 152.4 cm; Wt 74.3 kg
[2017-10-13] MEDS ORDERED: HYDR1CAP85 PO (13:38)
[2017-10-13] MEDS ORDERED: OMEP40CA41 PO (13:38)
[2017-10-13] MEDS ORDERED: ZLF/100 PO (13:38)
[2017-10-13] MEDS ORDERED: LORAZEPAM 2 MG/ML 1 ML VIAL IV STA (13:58)
[2017-10-13] MEDS ORDERED: SODIUM CHLORIDE 0.9% 1000ML 1,000 ML IV ONE (14:00)
[2017-10-13 14:59] LABS: BASO % 0.2 %; BASO ABS # 0.04 K/uL (0-0.2); COMPLETE YES; EOS % 0.8 %; HEMATOCRIT 42.1 % (37-47); IG% 0.3 %; LYMPH % 7.3 %; LYMPH ABS # 1.25 K/uL (1.2-3.4); MEAN CELL VOLUME 85.4 fL (80-100); MEAN CORPUSCULAR HEMOGLOBIN 28.2 pg (25-34); MEAN PLATELET VOLUME 9.4 fL (7.4-10.4); MONO % 5.6 %; NEUT % 85.8 %; PLATELET COUNT 215 K/uL (130-400); RED BLOOD COUNT 4.93 M/uL (4.2-5.4); WHITE BLOOD COUNT 17.15 K/uL (4.8-10.8)
[2017-10-13] MEDS ORDERED: BENZTROPINE MESYLATE 1 MG/ML 2 ML AMP IV STA (15:09)
[2017-10-13 15:15] LABS: BUN/CREATININE RATIO 14.2 (10-20); CALCIUM 9.4 mg/dl (8.5-10.1); CREATININE 1.19 mg/dl (0.60-1.20); POTASSIUM 4.1 mmol/L (3.5-5.1)
[2017-10-13] MEDS ORDERED: RAPID SEQUENCE INDUCTION BAG ONE (15:51)
[2017-10-13] MEDS ORDERED: CEFTRIAXONE SOD INJ 1 GM ADDVIAL IV STA (15:56)
--- NOTE | 2017-10-13 15:57 | DIAGNOSTIC IMAGING REPORT ---
CT OF THE HEAD WITHOUT CONTRAST CLINICAL HISTORY: Fall. COMPARISON STUDY: Head CT January 08, 2017 and MRI of the brain March 15, 2017. CT DOSE: 4271.71 mGy.cm TECHNIQUE: Helical axial images of the head were obtained without IV contrast. Automated exposure control was utilized for the study. A dose lowering technique was utilized adhering to the principles of ALARA. FINDINGS: This exam is moderately compromised by motion artifact. No acute intracranial hemorrhage, midline shift or mass effect is present. Ventricular system is stable. Basilar cisterns are patent. There are no extra axial collections. White matter hypodensities are unchanged. Sensitivity for detection of calvarial fractures is diminished but none are identified. Minimal layering secretions within the right maxillary sinus are noted. IMPRESSION: 1. Study moderately compromise by motion artifact. No acute intracranial findings identified. 2. Decreased sensitivity for detection of calvarial fractures given motion artifact but none identified. Electronically signed by: Phil Devries M.D. 10/13/2017 3:55 PM Dictated Date/Time: 10/13/2017 3:52 PM
[2017-10-13] MEDS ORDERED: OPTIRAY 320 IV PRN (16:00)
[2017-10-13] MEDS ORDERED: DEXAMETHASONE INJ 10 MG in SYRINGE 0 ML IV ONE (16:00)
--- NOTE | 2017-10-13 16:02 | DIAGNOSTIC IMAGING REPORT ---
THORACIC SPINE WITHOUT CLINICAL HISTORY: Ongoing thoracic and lumbar back pain. Fall. COMPARISON STUDY: No previous studies for comparison. FINDINGS: Alignment of the thoracic spine is anatomic. Vertebral body heights are maintained. Disc spaces are preserved. There is mild endplate osteophytosis. Central canal and neural foramen are suboptimally assessed by CT. There is a small central disc protrusion with calcification at T9-T10. Interlobular septal thickening within the lungs represent pulmonary edema. Groundglass opacities also suggest pulmonary edema. Heart is moderately enlarged. Pacer leads are partially imaged. There may be trace effusions. IMPRESSION: 1. No acute thoracic spine fracture or subluxation. 2. Mild multilevel degenerative disc disease with a small central disc protrusion at T9-T10. 3. Moderate pulmonary edema. Electronically signed by: Phil Devries M.D. 10/13/2017 4:01 PM Dictated Date/Time: 10/13/2017 3:56 PM
--- NOTE | 2017-10-13 16:06 | DIAGNOSTIC IMAGING REPORT ---
LUMBAR SPINE CT CLINICAL HISTORY: Ongoing thoracic and lumbar back pain. COMPARISON STUDY: CT of the abdomen and pelvis February 07, 2017. FINDINGS: This exam is mildly compromised by motion artifact. This decreases the sensitivity for detection of nondisplaced fractures but no acute lumbar spine fracture is identified. Alignment is anatomic. Vertebral body heights are maintained. There is mild disc space narrowing with osteophytosis and vacuum disc phenomenon at T12-L1. Right collecting system dilatation was shown on previous imaging studies. This is diminished when compared to study of February 07, 2017. IMPRESSION: 1. No acute lumbar spine fracture or subluxation. Study mildly compromised by motion artifact. 2. Mild multilevel degenerative disc disease and facet arthrosis. Electronically signed by: Phil Devries M.D. 10/13/2017 4:05 PM Dictated Date/Time: 10/13/2017 4:01 PM
[2017-10-13] MEDS ORDERED: PROPOFOL IV EMULSION 10 MG/ML 100 ML VIAL IV ONE (16:15)
[2017-10-13 16:26] LABS: CKMB/CK RATIO 4.1 (0-3.0)
[2017-10-13 16:42] LABS: URINE APPEARANCE CLEAR (CLEAR); URINE BILIRUBIN NEG (NEG); URINE COLOR YELLOW; URINE NITRITE NEG (NEG); URINE SPECIFIC GRAVITY 1.018 (1.000-1.030); UROBILINOGEN NEG (NEG)
--- NOTE | 2017-10-13 16:56 | DIAGNOSTIC IMAGING REPORT ---
CHEST ONE VIEW PORTABLE CLINICAL HISTORY: Post intubation. COMPARISON STUDY: Chest radiograph May 28, 2017. FINDINGS: The tip of the endotracheal tube is 1.3 cm above the tisha. A dual lead right-sided pacer/AICD is in place. Cardiomegaly is unchanged. There is mild pulmonary edema. There is no pneumothorax or pleural effusion. IMPRESSION: 1. Tip of endotracheal tube 1.3 cm above the tisha. The tube could be withdrawn 1.5 cm. 2. Mild pulmonary edema. 3. No pneumothorax. Electronically signed by: Phil Devries M.D. 10/13/2017 4:54 PM Dictated Date/Time: 10/13/2017 4:53 PM
[2017-10-13 16:58] LABS: MANUAL MICROSCOPIC REQUIRED? NO; REVIEW REQ? NO
--- NOTE | 2017-10-13 17:00 | EMERGENCY ROOM VISIT NOTE ---
ED Visit Note Central Venous Catheter Indication: Access Catheter type: Arrow triple lumen Location: Left IJ Verbal consent was obtained after the risks and benefits were explained, including but not limited to pneumothorax, hemothorax, vessel injury, bleeding, scarring, infection, pain, and bone/joint/nerve damage. At this time, the risks of the procedure are less than the risks of NOT performing the procedure. A time out was taken and the correct patient and site identified. The patient was placed in the supine position and the skin was prepped in the standard fashion with chlorhexidine and full sterile drapes applied. The proper landmarks were identified with ultrasound, anesthetized with 1% lidocaine without epinephrine, and the needle was inserted through the skin in the standard fashion. The needle was carefully advanced into blood vessel lumen under ultrasound guidance. The guidewire was placed uneventfully. The vessel is dilated and the catheter was placed. It was sutured into position. There was good blood return from all ports. The patient tolerated the procedure well and there were no complications. Post procedure x-ray was normal. Problem List Medical Problems: (1) History of colostomy reversal Status: Resolved (2) Hx Perforated diverticulitis Status: Resolved (3) Intra-abdominal free air Status: Resolved (4) Rectosigmoid resection Status: Resolved Surgical Problems: (1) Colostomy in place Status: Chronic (2) S/P appendectomy Status: Resolved Current/Historical Medications Scheduled Amitriptyline HCl (Amitriptyline HCl), 50 MG PO HS Aspirin (Aspirin Ec), 81 MG PO QAM Dicyclomine Hcl (Bentyl), 10 MG PO TID Duloxetine HCl (Duloxetine HCl), 60 MG PO HS Fluticasone Propionate (Flovent Hfa), 2 PUFFS INH BID Gabapentin (Gabapentin), 600 MG PO TID Hydroxyzine Pamoate (Vistaril), 25 MG PO DAILY Metoprolol Succinate (Toprol Xl), 25 MG PO LUNCH Omeprazole (Prilosec), 40 MG PO DAILY Ropinirole Hydrochloride (Requip), 0.5 MG PO HS Sertraline HCl (Sertraline HCl), 100 MG PO BID Trazodone Hcl (Trazodone), 100 MG PO HS Scheduled PRN Diphenoxylate/Atropine (Lomotil), 1 TAB PO DIRECTED PRN for Diarrhea Lorazepam (Lorazepam), 0.5-1 MG PO Q6H PRN for Anxiety Sumatriptan Succinate (Imitrex), 25 MG PO PRN PRN for Migraine Allergies Coded Allergies: Adhesives (Unverified Allergy, Intermediate, blistering, 05/04/17) Sulfa Antibiotics (Verified Allergy, Intermediate, swelling, 05/04/17) Doxycycline (Verified Allergy, Unknown, UNKNOWN, 05/04/17) Penicillins (Verified Allergy, Unknown, ZOSYN = FLUSHED FASE, ITCHING, ) FLUSHED FACE, ITCHING TOLERATED PRIMAXIN 2013 ADMISSION Vital Signs Date Time Temp Pulse Resp B/P (MAP) Pulse Ox O2 Delivery O2 Flow Rate FiO2 10/13/17 16:26 100 10/13/17 16:20 100 10/13/17 16:03 98 10/13/17 15:34 103 10/13/17 15:33 98 26 165/98 97 Oxymask 15.0 10/13/17 15:31 74 Room Air 10/13/17 13:10 37.3 102 18 155/75 98 Room Air Laboratory Results 10/13/17 14:44 Red Blood Count 4.93, Mean Corpuscular Volume 85.4, Mean Corpuscular Hemoglobin 28.2, Mean Corpuscular Hemoglobin Concent 33.0, Mean Platelet Volume 9.4, Neutrophils (%) (Auto) 85.8, Lymphocytes (%) (Auto) 7.3, Monocytes (%) (Auto) 5.6, Eosinophils (%) (Auto) 0.8, Basophils (%) (Auto) 0.2, Neutrophils # (Auto) 14.72, Lymphocytes # (Auto) 1.25, Monocytes # (Auto) 0.96, Eosinophils # (Auto) 0.13, Basophils # (Auto) 0.04 10/13/17 14:44 Test 10/13/17 14:44 10/13/17 15:38 10/13/17 15:42 10/13/17 16:15 White Blood Count 17.15 K/uL (4.8-10.8) Red Blood Count 4.93 M/uL (4.2-5.4) Hemoglobin 13.9 g/dL (12.0-16.0) Hematocrit 42.1 % (37-47) Mean Corpuscular Volume 85.4 fL (80-100) Mean Corpuscular Hemoglobin 28.2 pg (25-34) Mean Corpuscular Hemoglobin Concent 33.0 g/dl (32-36) Platelet Count 215 K/uL (130-400) Mean Platelet Volume 9.4 fL (7.4-10.4) Neutrophils (%) (Auto) 85.8 % Lymphocytes (%) (Auto) 7.3 % Monocytes (%) (Auto) 5.6 % Eosinophils (%) (Auto) 0.8 % Basophils (%) (Auto) 0.2 % Neutrophils # (Auto) 14.72 K/uL (1.4-6.5) Lymphocytes # (Auto) 1.25 K/uL (1.2-3.4) Monocytes # (Auto) 0.96 K/uL (0.11-0.59) Eosinophils # (Auto) 0.13 K/uL (0-0.5) Basophils # (Auto) 0.04 K/uL (0-0.2) RDW Standard Deviation 47.0 fL (36.4-46.3) RDW Coefficient of Variation 15.4 % (11.5-14.5) Immature Granulocyte % (Auto) 0.3 % Immature Granulocyte # (Auto) 0.05 K/uL (0.00-0.02) Anion Gap 13.0 mmol/L (3-11) Est Creatinine Clear Calc Drug Dose 46.8 ml/min Estimated GFR () 57.9 Estimated GFR (Non- 49.9 BUN/Creatinine Ratio 14.2 (10-20) Calcium Level 9.4 mg/dl (8.5-10.1) Total Creatine Kinase 148 U/L (26-192) Creatine Kinase MB 6.0 ng/ml (0.5-3.6) Lipase 119 U/L (73-393) Bedside Glucose 225 mg/dl (70-90) Creatine Kinase MB Ratio (0-3.0) Urine Color YELLOW Urine Appearance CLEAR (CLEAR) Urine pH 6.0 (4.5-7.5) Urine Specific [place] 1.018 (1.000-1.030) Urine Protein 3+ (NEG) Urine Glucose (UA) NEG (NEG) Urine Ketones NEG (NEG) Urine Occult Blood TRACE (NEG) Urine Nitrite NEG (NEG) Urine Bilirubin NEG (NEG) Urine Urobilinogen NEG (NEG) Urine Leukocyte Esterase NEG (NEG) Urine WBC (Auto) 1-5 /hpf (0-5) Urine RBC (Auto) 0-4 /hpf (0-4) Urine Hyaline Casts (Auto) 1-5 /lpf (0-5) Urine Epithelial Cells (Auto) 10-20 /lpf (0-5) Urine Bacteria (Auto) NEG (NEG) Test 10/13/17 16:49 Medications Administered Medications (Trade) Dose Ordered Sig/Nessa Route Start Time Stop Time Status Last Admin Dose Admin Sodium Chloride 1,000 ml @ 200 mls/hr Q5H ONCE IV 10/13/17 14:00 10/13/17 18:59 10/13/17 14:25 200 MLS/HR Lorazepam (Ativan Inj) 1 mg NOW STAT IV 10/13/17 13:58 10/13/17 14:01 DC 10/13/17 14:24 1 MG Benztropine Mesylate (Cogentin Inj) 2 mg NOW STAT IV 10/13/17 15:09 10/13/17 15:11 DC 10/13/17 15:33 2 MG Miscellaneous (Rapid Sequence Induction Bag) 1 ea STK-MED ONCE N/A 10/13/17 15:51 10/13/17 15:52 DC 10/13/17 16:40 1 EA Propofol (Diprivan Iv Emulsion 100ml Vial) 1 dose STK-MED ONCE IV 10/13/17 16:15 10/13/17 16:16 DC 10/13/17 16:24 1 DOSE Departure Information Referrals Suad De León D.ODelia (PCP) Patient Instructions My [facility]
[2017-10-13 17:04] LABS: BENZODIAZEPINE, URINE NEG (NEG); COCAINE,URINE NEG (NEG); PHENCYCLIDINE, URINE NEG (NEG)
--- NOTE | 2017-10-13 17:22 | EMERGENCY ROOM VISIT NOTE ---
ED Visit Note First contact with patient: 16:20 This Patient was discussed with the physician veterinary assistant, Adis Upton PA-C. The pertinent historical and physical exam findings were confirmed. I agree with the studies ordered and with the interpretations of these studies. I agree with the disposition and care plan. Endotracheal Intubation Indication altered mental status. The patient was on 100% oxygen via NRB prior to the procedure. Suction, airway equipment, RSI drugs, respiratory equipment, and appropriate personnel were prepared prior to the initiation of the procedure. A time out was taken. Induction was performed with Etomidate and Rocuronium. After observing the clinical benefit of the medications, the airway was easily visualized utilizing a 4.0 Dillon Blade. A 7.5 size ETT tube was placed atraumatically to 24 cm using standard technique. The cuff inflated without signs of malfunction. There were bilateral breath sounds, positive colormetric change, no gastric sounds, a good capnography waveform, and post procedure pulse oximetry was 95%. Post intubation sedation and paralysis was administered using propofol. There were no complications. Lumbar Puncture Indication: Altered mental status. Verbal consent was obtained after the risks and benefits were explained, including but not limited to headache, bleeding/clotting, scarring, infection, pain, and bone/joint/nerve damage. At this time, the risks of the procedure are less than the risks of NOT performing the procedure. A time out was taken and the correct patient and site identified. The patient was placed in the right lateral Recumbant position and the back was prepped with betadine and draped in the standard fashion. The L3 intervertebral space was identified, anesthetized locally with 1% lidocaine without epinephrine, and the spinal needle was inserted through the skin with the bevel parallel to the dural fibers. The needle was carefully advanced into the lumbar cistern and 4 tubes of clear CSF was obtained. The stylet was replaced and the needle was removed. A bandaid was placed and the patient was placed in the supine position. The patient tolerated the procedure well and there were no complications.
[2017-10-13 17:28] LABS: VEN BLD GAS O2 SATURATION 83.5 %
--- NOTE | 2017-10-13 17:41 | DIAGNOSTIC IMAGING REPORT ---
CHEST ONE VIEW PORTABLE CLINICAL HISTORY: Central line placement COMPARISON STUDY: Chest radiograph October 13, 2017 at 4:27 PM. FINDINGS: The endotracheal tube has been slightly withdrawn. The tip is 2.5 cm above the tisha. There has been interval placement of a left internal jugular central line. Catheter tip projects over the left brachycephalic vein. Cardiomegaly is unchanged. Sensitivity for detection of pneumothorax is diminished on this supine exam but no pneumothorax is identified. A dual lead right subclavian pacer/AICD is in place. There is persistent pulmonary edema. IMPRESSION: 1. No pneumothorax following placement of a left internal jugular central line. Catheter tip projects over the left brachiocephalic vein. 2. Satisfactory positioning of the endotracheal tube. 3. Persistent mild pulmonary edema. Electronically signed by: Phil Devries M.D. 10/13/2017 5:40 PM Dictated Date/Time: 10/13/2017 5:38 PM
--- NOTE | 2017-10-13 18:15 | DIAGNOSTIC IMAGING REPORT ---
CT ANGIOGRAPHY OF THE CHEST, PULMONARY EMBOLUS PROTOCOL CLINICAL HISTORY: Altered mental status. COMPARISON STUDY: Chest radiograph May 28, 2017 and October 13, 2017. TECHNIQUE: Following IV administration of 93 mL of Optiray-320, helical axial images of the chest were obtained utilizing the pulmonary embolus protocol. Maximal intensity projections and sagittal and coronal reformats were viewed on an independent 3D workstation. IV contrast was administered without complication. A dose lowering technique was utilized adhering to the principles of ALARA. FINDINGS: No pulmonary emboli are identified. The tip of the endotracheal tube is 2.8 cm above the tisha. The heart is moderately enlarged with concentric left ventricular hypertrophy. There is no pericardial effusion. A few prominent mediastinal lymph nodes are noted. These are likely benign. There is moderate coronary artery calcification. Trace bilateral pleural effusions, right larger than left, are noted. There is no pneumothorax. The tip of the left internal jugular central line is within the left brachiocephalic vein. Interlobular septal thickening and groundglass opacities suggest pulmonary edema. Bilateral lower lobe opacities favor atelectasis. A right subclavian pacer/AICD is in place. The abdomen and pelvis CT will be reported separately. IMPRESSION: 1. No pulmonary emboli identified. 2. Findings consistent with moderate pulmonary edema. Trace bilateral pleural effusions. 3. Dependent airspace opacities within the lungs which favor atelectasis. 4. Moderate cardiomegaly with left ventricular hypertrophy. 5. Tip of endotracheal tube 2.8 cm above the tisha. Electronically signed by: Phil Devries M.D. 10/13/2017 6:14 PM Dictated Date/Time: 10/13/2017 6:02 PM
--- NOTE | 2017-10-13 18:21 | DIAGNOSTIC IMAGING REPORT ---
CT OF THE ABDOMEN AND PELVIS WITH CONTRAST CLINICAL HISTORY: Altered mental status. COMPARISON STUDY: CT of the abdomen and pelvis February 07, 2017. TECHNIQUE: Following IV administration of 93 mL of Optiray-320, axial images of the abdomen and pelvis were obtained from the lung bases to the proximal femurs. Images were reviewed in the axial, sagittal, and coronal planes. IV contrast was administered without complication. A dose lowering technique was utilized adhering to the principles of ALARA. CT DOSE: 1748.88 mGy.cm FINDINGS: The chest will be reported separately. No pneumatosis, free air or portal venous gas is present. Mild splenomegaly is unchanged. There is fatty infiltration of the liver. The main, left and right portal veins are patent. The 2.5 cm cystic lesion within the pancreatic head is unchanged since CT of February 07, 2017. There is no biliary or pancreatic ductal dilatation. Right hydronephrosis is unchanged and suggests a congenital UPJ type obstruction. Postsurgical findings involving the anterior abdominal wall with a small amount of fluid are unchanged. A Gerard pouch is noted. There is no bowel obstruction. No lymphadenopathy is present. There are no suspicious osseous lesions. A [place] balloon is present within the bladder. There is minimal infiltration gas within the left groin. No peripancreatic or pericholecystic infiltration is noted. There is no bowel obstruction. IMPRESSION: 1. No acute process within the abdomen or pelvis. 2. Stable 2.5 cm cystic lesion within the pancreatic head. This remains indeterminate. 3. Minimal gas and infiltration within the left groin which may be postprocedural. 4. 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 Electronically signed by: Phil Devries M.D. 10/13/2017 6:20 PM Dictated Date/Time: 10/13/2017 6:14 PM
--- NOTE | 2017-10-13 18:33 | History and Physical ---
History & Physical Date & Time of Service: Oct 13, 2017 at 18:13 . Chief Complaint: confusion, abnormal movements, headache, trouble breathing . Primary Care Physician: Suad De León D.O. . History of Present Illness Source: patient, family, clinic records, hospital records 57 YO female followed by Dr. Suad De León for Family Medicine. History of hypertrophic cardiomyopathy, hypertension. DM type 2, depression, perforated diverticular disease with sepsis 2013, UTI with confusion and sepsis Dec 2016, and other problems noted below. Seen in clinic 10/02/17. Main complaints at that time were depression and insomnia. She was weaned off sertraline and her trazodone was continued; ropinirole was also started for restless legs. Family has noted increasing confusion over the last 1-2 weeks as well as abnormal jerking of arms and legs. Patient told her daughter that she felt warm, but highest temp was around 99. Complained of headache, pharyngitis, back pain, leg pain, trouble breathing. Brought to ED for evaluation. In the ED she was very uncomfortable and restless. Received IV lorazepam and benztropine. Became less responsive and had to be intubated for airway protection. . Past Medical/Surgical History Chronic and Resolved Medical Problems: (1) Depression Status: Chronic (2) Diabetes mellitus, type 2 Status: Chronic (3) Diverticulitis Permanent Comment: with perforation and septic shock 2013 Status: Resolved (4) History of colostomy reversal Status: Resolved (5) HOCM (hypertrophic obstructive cardiomyopathy) Status: Chronic (6) Hydronephrosis of right kidney Status: Chronic (7) Hypertension Status: Chronic (8) Pancreatic cyst Status: Chronic (9) Sleep apnea Status: Chronic Surgical Problems: (1) History of colostomy reversal Permanent Comment: 04/19/15 Status: Chronic (2) S/P appendectomy Status: Resolved (3) Status post appendectomy Status: Chronic (4) Status post internal cardiac defibrillator procedure Permanent Comment: 2014 Status: Chronic (5) Status post partial resection of colon Permanent Comment: diverticulitis 11/05/14 Status: Chronic . Family History FATHER Hypertrophic cardiomyopathy MOTHER Hyperlipidemia DAUGHTER Seizure disorder DAUGHTER Gastric cancer Social History Smoking Status: Never Smoker Alcohol Use: none Drug Use: none Marital Status: Housing status: lives with family Occupational Status: employed Immunizations History of Influenza Vaccine: Yes History of Pneumococcal: Yes Allergies Coded Allergies: Adhesives (Unverified Allergy, Intermediate, blistering, 05/04/17) Sulfa Antibiotics (Verified Allergy, Intermediate, swelling, 05/04/17) Doxycycline (Verified Allergy, Unknown, UNKNOWN, 05/04/17) Penicillins (Verified Allergy, Unknown, ZOSYN = FLUSHED FASE, ITCHING, ) FLUSHED FACE, ITCHING TOLERATED PRIMAXIN 2013 ADMISSION Home Medications Scheduled Amitriptyline HCl (Amitriptyline HCl), 50 MG PO HS Aspirin (Aspirin Ec), 81 MG PO QAM Dicyclomine Hcl (Bentyl), 10 MG PO TID Duloxetine HCl (Duloxetine HCl), 60 MG PO HS Fluticasone Propionate (Flovent Hfa), 2 PUFFS INH BID Gabapentin (Gabapentin), 600 MG PO TID Hydroxyzine Pamoate (Vistaril), 25 MG PO HS Metoprolol Succinate (Toprol Xl), 25 MG PO LUNCH Omeprazole (Prilosec), 40 MG PO DAILY Ropinirole Hydrochloride (Requip), 0.5 MG PO HS Sertraline HCl (Sertraline HCl), 150 MG PO DAILY Trazodone Hcl (Trazodone), 100 MG PO HS Scheduled PRN Diphenoxylate/Atropine (Lomotil), 1 TAB PO DIRECTED PRN for Diarrhea Lorazepam (Lorazepam), 0.5-1 MG PO Q6H PRN for Anxiety Sumatriptan Succinate (Imitrex), 25 MG PO PRN PRN for Migraine Review of Systems Unable to obtain due to neurologic status. . Physical Exam Vital Signs Date Time Temp Pulse Resp B/P (MAP) Pulse Ox O2 Delivery O2 Flow Rate FiO2 10/13/17 17:02 87 10/13/17 16:26 100 10/13/17 16:20 100 10/13/17 16:03 98 10/13/17 15:34 103 10/13/17 15:33 98 26 165/98 97 Oxymask 15.0 10/13/17 15:31 74 Room Air 10/13/17 13:10 37.3 102 18 155/75 98 Room Air General Appearance: + obese Head: atraumatic Eyes: PERRL, EOMI, sclerae normal ENT: + pertinent finding (oral ETT) Neck: supple, no adenopathy, thyroid normal, trachea midline, + pertinent finding (exam limited due to body habitus; left IJ central venous catheter) Respiratory/Chest: + pertinent finding (few scattered rhonchi, equal breath sounds) Cardiovascular: regular rate, rhythm, + systolic murmur (II/ sys murmur at base) Abdomen/GI: + pertinent finding (quiet bowel sounds, soft, nontender, well- healed scars) Extremities/Musculoskelatal: no calf tenderness, no pedal edema, + pertinent finding (cyanosis of toes; pedal pulses intact) Neurologic/Psych: + pertinent finding (sedated on vent; pupils 3 mm, reactive; myotonic jerking of all 4 extremities; plantar reflexes downgoing) Skin: warm/dry Lymphatic: + pertinent finding (no cervical adenopathy appreciated, but exam limited) Diagnostics Laboratory Results Results Past 24 Hours Test 10/13/17 14:44 10/13/17 15:38 10/13/17 15:42 10/13/17 16:15 Range/Units White Blood Count 17.15 4.8-10.8 K/uL Red Blood Count 4.93 4.2-5.4 M/uL Hemoglobin 13.9 12.0-16.0 g/dL Hematocrit 42.1 37-47 % Mean Corpuscular Volume 85.4 80-100 fL Mean Corpuscular Hemoglobin 28.2 25-34 pg Mean Corpuscular Hemoglobin Concent 33.0 32-36 g/dl Platelet Count 215 130-400 K/uL Mean Platelet Volume 9.4 7.4-10.4 fL Neutrophils (%) (Auto) 85.8 % Lymphocytes (%) (Auto) 7.3 % Monocytes (%) (Auto) 5.6 % Eosinophils (%) (Auto) 0.8 % Basophils (%) (Auto) 0.2 % Neutrophils # (Auto) 14.72 1.4-6.5 K/uL Lymphocytes # (Auto) 1.25 1.2-3.4 K/uL Monocytes # (Auto) 0.96 0.11-0.59 K/uL Eosinophils # (Auto) 0.13 0-0.5 K/uL Basophils # (Auto) 0.04 0-0.2 K/uL RDW Standard Deviation 47.0 36.4-46.3 fL RDW Coefficient of Variation 15.4 11.5-14.5 % Immature Granulocyte % (Auto) 0.3 % Immature Granulocyte # (Auto) 0.05 0.00-0.02 K/uL Sodium Level 142 136-145 mmol/L Potassium Level 4.1 3.5-5.1 mmol/L Chloride Level 104 98-107 mmol/L Carbon Dioxide Level 25 21-32 mmol/L Anion Gap 13.0 3-11 mmol/L Blood Urea Nitrogen 17 7-18 mg/dl Creatinine 1.19 0.60-1.20 mg/dl Est Creatinine Clear Calc Drug Dose 46.8 ml/min Estimated GFR () 57.9 Estimated GFR (Non- 49.9 BUN/Creatinine Ratio 14.2 10-20 Random Glucose 153 70-99 mg/dl Calcium Level 9.4 8.5-10.1 mg/dl Total Creatine Kinase 148 26-192 U/L Creatine Kinase MB 6.0 0.5-3.6 ng/ml Creatine Kinase MB Ratio 4.1 0-3.0 Lipase 119 73-393 U/L Bedside Glucose 225 70-90 mg/dl Urine Color YELLOW Urine Appearance CLEAR CLEAR Urine pH 6.0 4.5-7.5 Urine Specific [place] 1.018 1.000-1.030 Urine Protein 3+ NEG Urine Glucose (UA) NEG NEG Urine Ketones NEG NEG Urine Occult Blood TRACE NEG Urine Nitrite NEG NEG Urine Bilirubin NEG NEG Urine Urobilinogen NEG NEG Urine Leukocyte Esterase NEG NEG Urine WBC (Auto) 1-5 0-5 /hpf Urine RBC (Auto) 0-4 0-4 /hpf Urine Hyaline Casts (Auto) 1-5 0-5 /lpf Urine Epithelial Cells (Auto) 10-20 0-5 /lpf Urine Bacteria (Auto) NEG NEG Urine Opiates Screen NEG NEG Urine Methadone, Qualitative NEG NEG Urine Barbiturates NEG NEG Urine Phencyclidine (PCP) Level NEG NEG Ur Amphetamine/Methamphetamine NEG NEG MDMA (Ecstasy) Screen NEG NEG Urine Benzodiazepines Screen NEG NEG Urine Cocaine Metabolite NEG NEG Urine Marijuana (THC) NEG NEG Test 10/13/17 16:50 10/13/17 16:52 10/13/17 17:19 Range/Units Bedside Troponin I 0.080 0-0.045 ng/ml Bedside Lactic Acid Venous 0.92 0.90-1.70 mmol/L Venous Blood pH 7.33 7.36-7.41 Venous Blood Partial Pressure CO2 45 38.0-50.0 mmHg Venous Blood Partial Pressure O2 54 mmHg Venous Blood HCO3 23 mmol/L Venous Blood Oxygen Saturation 83.5 % Venous Blood Base Excess -3.0 mEq/L Microbiology Results 10/13/17 Blood Culture, Received Pending 10/13/17 Blood Culture, Received Pending Diagnostic Radiology CT OF THE HEAD WITHOUT CONTRAST FINDINGS: This exam is moderately compromised by motion artifact. No acute intracranial hemorrhage, midline shift or mass effect is present. Ventricular system is stable. Basilar cisterns are patent. There are no extra axial collections. White matter hypodensities are unchanged. Sensitivity for detection of calvarial fractures is diminished but none are identified. Minimal layering secretions within the right maxillary sinus are noted. IMPRESSION: 1. Study moderately compromise by motion artifact. No acute intracranial findings identified. 2. Decreased sensitivity for detection of calvarial fractures given motion artifact but none identified. Electronically signed by: Phil Devries M.D. 10/13/2017 3:55 PM Dictated Date/Time: 10/13/2017 3:52 PM THORACIC SPINE WITHOUT FINDINGS: Alignment of the thoracic spine is anatomic. Vertebral body heights are maintained. Disc spaces are preserved. There is mild endplate osteophytosis. Central canal and neural foramen are suboptimally assessed by CT. There is a small central disc protrusion with calcification at T9-T10. Interlobular septal thickening within the lungs represent pulmonary edema. Groundglass opacities also suggest pulmonary edema. Heart is moderately enlarged. Pacer leads are partially imaged. There may be trace effusions. IMPRESSION: 1. No acute thoracic spine fracture or subluxation. 2. Mild multilevel degenerative disc disease with a small central disc protrusion at T9-T10. 3. Moderate pulmonary edema. Electronically signed by: Phil Devries M.D. 10/13/2017 4:01 PM Dictated Date/Time: 10/13/2017 3:[address] FINDINGS: This exam is mildly compromised by motion artifact. This decreases the sensitivity for detection of nondisplaced fractures but no acute lumbar spine fracture is identified. Alignment is anatomic. Vertebral body heights are maintained. There is mild disc space narrowing with osteophytosis and vacuum disc phenomenon at T12-L1. Right collecting system dilatation was shown on previous imaging studies. This is diminished when compared to study of February 07, 2017. IMPRESSION: 1. No acute lumbar spine fracture or subluxation. Study mildly compromised by motion artifact. 2. Mild multilevel degenerative disc disease and facet arthrosis. Electronically signed by: Phil Devries M.D. 10/13/2017 4:05 PM Dictated Date/Time: 10/13/2017 4:[address] ANGIOGRAPHY OF THE CHEST, PULMONARY EMBOLUS PROTOCOL FINDINGS: No pulmonary emboli are identified. The tip of the endotracheal tube is 2.8 cm above the tisha. The heart is moderately enlarged with concentric left ventricular hypertrophy. There is no pericardial effusion. A few prominent mediastinal lymph nodes are noted. These are likely benign. There is moderate coronary artery calcification. Trace bilateral pleural effusions, right larger than left, are noted. There is no pneumothorax. The tip of the left internal jugular central line is within the left brachiocephalic vein. Interlobular septal thickening and groundglass opacities suggest pulmonary edema. Bilateral lower lobe opacities favor atelectasis. A right subclavian pacer/AICD is in place. The abdomen and pelvis CT will be reported separately. IMPRESSION: 1. No pulmonary emboli identified. 2. Findings consistent with moderate pulmonary edema. Trace bilateral pleural effusions. 3. Dependent airspace opacities within the lungs which favor atelectasis. 4. Moderate cardiomegaly with left ventricular hypertrophy. 5. Tip of endotracheal tube 2.8 cm above the tisha. Electronically signed by: Phil Devries M.D. 10/13/2017 6:14 PM Dictated Date/Time: 10/13/2017 6:[address] OF THE ABDOMEN AND PELVIS WITH CONTRAST FINDINGS: The chest will be reported separately. No pneumatosis, free air or portal venous gas is present. Mild splenomegaly is unchanged. There is fatty infiltration of the liver. The main, left and right portal veins are patent. The 2.5 cm cystic lesion within the pancreatic head is unchanged since CT of February 07, 2017. There is no biliary or pancreatic ductal dilatation. Right hydronephrosis is unchanged and suggests a congenital UPJ type obstruction. Postsurgical findings involving the anterior abdominal wall with a small amount of fluid are unchanged. A Gerard pouch is noted. There is no bowel obstruction. No lymphadenopathy is present. There are no suspicious osseous lesions. A [place] balloon is present within the bladder. There is minimal infiltration gas within the left groin. No peripancreatic or pericholecystic infiltration is noted. There is no bowel obstruction. IMPRESSION: 1. No acute process within the abdomen or pelvis. 2. Stable 2.5 cm cystic lesion within the pancreatic head. This remains indeterminate. 3. Minimal gas and infiltration within the left groin which may be postprocedural. 4. 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 Electronically signed by: Phil Devries M.D. 10/13/2017 6:20 PM Dictated Date/Time: 10/13/2017 6:14 PM CHEST ONE VIEW PORTABLE FINDINGS: The tip of the endotracheal tube is 1.3 cm above the tisha. A dual lead right-sided pacer/AICD is in place. Cardiomegaly is unchanged. There is mild pulmonary edema. There is no pneumothorax or pleural effusion. IMPRESSION: 1. Tip of endotracheal tube 1.3 cm above the tisha. The tube could be withdrawn 1.5 cm. 2. Mild pulmonary edema. 3. No pneumothorax. Electronically signed by: Phil Devries M.D. 10/13/2017 4:54 PM Dictated Date/Time: 10/13/2017 4:53 PM CHEST ONE VIEW PORTABLE FINDINGS: The endotracheal tube has been slightly withdrawn. The tip is 2.5 cm above the tisha. There has been interval placement of a left internal jugular central line. Catheter tip projects over the left brachycephalic vein. Cardiomegaly is unchanged. Sensitivity for detection of pneumothorax is diminished on this supine exam but no pneumothorax is identified. A dual lead right subclavian pacer/AICD is in place. There is persistent pulmonary edema. IMPRESSION: 1. No pneumothorax following placement of a left internal jugular central line. Catheter tip projects over the left brachiocephalic vein. 2. Satisfactory positioning of the endotracheal tube. 3. Persistent mild pulmonary edema. Electronically signed by: Phil Devries M.D. 10/13/2017 5:40 PM Dictated Date/Time: 10/13/2017 5:38 PM . Impression Assessment and Plan ALTERED MENTAL STATUS Patient presents to ED with several day history of progressive confusion associated with jerking of upper and lower extremities. Recent medication changes included discontinuation of sertraline and addition of ropinirole for restless legs. Possible respiratory tract infection with perceived fever, pharyngitis, dyspnea. Also complained of a headache to her daughter. Head CT negative for apparent acute infarct, bleed, mass, etc. Leukocytosis noted. Consider encephalopathy secondary to sepsis, although source not apparent from initial evaluation in ED. LP performed by ED physician and results are pending at the time of admission. Check EEG. LEUKOCYTOSIS WBC 17,150. Afebrile in ED. CT of chest demonstrated bibasilar densities, atelectasis versus infiltrate ( atelectasis felt to be most likely per Radiology). No acute findings on CT of abdomen and pelvis. Urinalysis essentially negative. LP performed and results pending. Check DRIVER/MERCHANDISER swab for influenza A/B. Blood cultures obtained in ED and patient received a dose of ceftriaxone. Further antibiotic coverage to be determined. ENDOTRACHEAL INTUBATION / MECHANICAL VENTILATION Intubated in ED for airway protection. Management per Critical Care Medicine. HYPERTROPHIC CARDIOMYOPATHY Hemodynamically stable. HYPERTENSION Hemodynamically stable. DM TYPE 2 Managed with metformin in the past, but need to clarify if she is still taking it. Random glucose 153. Follow blood sugars and manage per protocol. VTE PROPHYLAXIS No anticoagulants at this time due to LP. SCD's. RESUSCITATION STATUS not aware of any advanced directives. Full code. DISPOSITION Critically ill. Admit to ICU. Discharge disposition to be determined. Family Medicine follow-up with Dr. Suad De León. H&P unsigned and updated to correct home meds. Sertraline being tapered; current dose is 150 mg. Patient is no longer taking metformin. [ROSITA 10/13/17 19:40] . VTE Prophylaxis VTE Risk Assessment Done? Y/N: Yes Risk Level: High Given or contraindicated: SCD's
[2017-10-13] MEDS ORDERED: MIDAZOLAM HCL 5 MG/ML 1 ML VIAL IV STA (18:34)
[2017-10-13 18:37] LABS: CSF CHEMISTRY TUBE # 2
[2017-10-13 18:42] LABS: CSF TOTAL PROTEIN 53.4 mg/dl (15.0-45.0)
[2017-10-13 19:05] LABS: CSF APPEARANCE CLEAR; CSF COLOR COLORLESS; CSF XANTHOCHROMIC NO XANTHOCHROMIA
[2017-10-13 19:07] LABS: CSF APPEARANCE CLEAR; CSF COLOR COLORLESS; CSF XANTHOCHROMIC NO XANTHOCHROMIA
--- NOTE | 2017-10-13 19:51 | Critical Care Consultation ---
Critical Care Consultation Date of Consultation: Oct 13, 2017. Attending Physician: Adis Christianson M.D. Reason for Consultation: Altered Mental Status, Chest Pain and Arm Numbness History of Present Illness Kalie Velasquez is a 57-year-old female who presented to the emergency room today after a phone call to her family practice provider regarding chest pain and arm numbness. It is my understanding that over the past week the patient has been developing increasingly intermittent symptoms of dyspnea and inability to take a full breath. notes that he has had a cold and his was complaining that he given to her. Her symptoms included a dry nagging cough audible wheezing throat and ear pain. Patient chronically suffers from upper and lower back pain bilateral leg pain, non-positional numbness to the left side , restless leg syndrome. I was told that the twitching has been more severe over the course last 24 hours. Patient also complained of head pain above her left eyebrow. Her outpatient records patient did receive her influenza vaccine this year. Majority of patient's complaints have been provided via a note from her daughter who remains at home to help care for her mother; as the patient's spouse works long hours and is not fully aware in patient's health conditions. Patient was last seen in her family [facility] facility 11 days prior to admission with complaints of insomnia and increasing depression. At which time she did refuse psychiatric consult. Patient was asked about her medications which she had stated that she is not sure how often\or what she takes; as her daughter does her pills for her. Per this outpatient record patient's fluticasone inhaler was increased from 110 g to 220 g BID and the following medications were discontinued: Baclofen 10 mg, diphenoxylate atropine 2.5, hydroxyzine pameate, probiotic, sertraline HCL 100 mg twice a day,TiZandine hCL 2mg BID. Per encounter note patient was told to wean the Zoloft and could increase her trazodone as needed for sleep. Her muscle relaxers were discontinued as patient stated that she felt they were ineffective and patient declined physical therapy at that time.Ropinirole hcl 0.5mg started at bedtime for restless leg syndrome. Otherwise patient has a significant past medical history including cardiac murmurs with close observation by [facility] cardiology for hypertrophic Dr. cardiomyopathy requiring a dual-chamber defibrillator. Patient has a congenital UPJ obstruction, type 2 diabetes, obstructive sleep apnea with refusal to continue CPAP treatment at night, pancreatic cyst currently unchanged , and hypertension. Past Medical/Surgical History Medical Problems: Chronic sinusitis Depression with anxiety Diabetes mellitus, type 2 Diverticulitis History of colostomy reversal History of peritonitis HOCM (hypertrophic obstructive cardiomyopathy) Hydronephrosis of right kidney Hypertension Irritable bowel syndrome Migraine Pancreatic cyst Perforated diverticulitis Restless leg syndrome Sleep apnea (Refused CPAP tx) Surgical Problems: History of colostomy reversal S/P appendectomy Status post internal cardiac defibrillator procedure Status post partial resection of colon Family History Gastric cancer DAUGHTER Hyperlipidemia MOTHER Hypertrophic cardiomyopathy FATHER Seizure disorder DAUGHTER Social History Smoking Status: Never Smoker Smokeless Tobacco Use: No Alcohol Use: none Drug Use: none Marital Status: Housing Status: lives with family Occupation Status: retired ([employer]) Allergies Coded Allergies: Adhesives (Unverified Allergy, Intermediate, blistering, 05/04/17) Sulfa Antibiotics (Verified Allergy, Intermediate, swelling, 05/04/17) Doxycycline (Verified Allergy, Unknown, UNKNOWN, 05/04/17) Penicillins (Verified Allergy, Unknown, ZOSYN = FLUSHED FASE, ITCHING, ) FLUSHED FACE, ITCHING TOLERATED PRIMAXIN 2013 ADMISSION Home Medications Scheduled Amitriptyline HCl (Amitriptyline HCl), 50 MG PO HS Aspirin (Aspirin Ec), 81 MG PO QAM Dicyclomine Hcl (Bentyl), 10 MG PO TID Duloxetine HCl (Duloxetine HCl), 60 MG PO HS Fluticasone Propionate (Flovent Hfa), 2 PUFFS INH BID Gabapentin (Gabapentin), 600 MG PO TID Hydroxyzine Pamoate (Vistaril), 25 MG PO HS Metoprolol Succinate (Toprol Xl), 25 MG PO LUNCH Omeprazole (Prilosec), 40 MG PO DAILY Ropinirole Hydrochloride (Requip), 0.5 MG PO HS Sertraline HCl (Sertraline HCl), 150 MG PO DAILY Trazodone Hcl (Trazodone), 100 MG PO HS Scheduled PRN Diphenoxylate/Atropine (Lomotil), 1 TAB PO DIRECTED PRN for Diarrhea Lorazepam (Lorazepam), 0.5-1 MG PO Q6H PRN for Anxiety Sumatriptan Succinate (Imitrex), 25 MG PO PRN PRN for Migraine Current Inpatient Medications Current Inpatient Medications Medications (Trade) Dose Ordered Sig/Nessa Route Start Time Stop Time Status Last Admin Dose Admin Ioversol (Optiray 320) 100 ml UD PRN IV 10/13/17 16:00 10/17/17 15:59 Pantoprazole Sodium 40 mg/ Syringe 10 ml @ 5 mls/min DAILY IV 10/14/17 09:00 11/13/17 08:59 Midazolam HCl (Versed Inj) 2 mg Q1H PRN IV 10/13/17 19:45 11/12/17 19:44 UNV Fentanyl Citrate (Fentanyl Inj) 50 mcg Q1H PRN IV 10/13/17 19:45 10/27/17 19:44 Review of Systems ROS cannot be obtained secondary to patient's sedation, condition and intubation. Physical Exam Date Time Temp Pulse Resp B/P (MAP) Pulse Ox O2 Delivery O2 Flow Rate FiO2 10/13/17 19:20 60 10/13/17 18:59 80 16 100 10/13/17 18:55 80 18 155/93 100 10/13/17 18:54 81 16 100 10/13/17 18:51 70 10/13/17 18:49 81 16 100 10/13/17 18:46 155/93 10/13/17 18:44 81 16 100 10/13/17 18:39 80 16 100 10/13/17 18:34 82 16 100 10/13/17 18:33 134/83 10/13/17 18:29 81 16 100 10/13/17 18:24 81 16 100 10/13/17 18:20 149/88 10/13/17 18:19 82 16 100 10/13/17 18:14 84 16 154/92 100 10/13/17 18:09 89 16 100 10/13/17 18:04 91 16 204/186 100 10/13/17 18:03 241/224 10/13/17 17:59 95 16 100 10/13/17 17:54 99 16 100 10/13/17 17:53 197/93 10/13/17 17:49 0 10/13/17 17:44 0 10/13/17 17:39 0 10/13/17 17:34 0 10/13/17 17:29 0 10/13/17 17:24 91 7 171/126 10/13/17 17:19 86 16 100 10/13/17 17:14 89 16 100 10/13/17 17:09 91 19 100 10/13/17 17:04 87 16 100 10/13/17 17:02 87 10/13/17 17:01 147/70 10/13/17 16:59 86 16 145/75 100 10/13/17 16:54 87 16 141/71 100 10/13/17 16:49 88 16 157/69 100 10/13/17 16:44 90 16 100 10/13/17 16:39 91 16 156/70 100 10/13/17 16:34 96 16 156/89 100 10/13/17 16:29 100 16 100 10/13/17 16:27 214/98 10/13/17 16:26 100 10/13/17 16:24 116 16 100 10/13/17 16:20 100 10/13/17 16:20 211/113 10/13/17 16:19 115 24 94 10/13/17 16:14 105 17 99 10/13/17 16:09 108 23 85 10/13/17 16:06 218/115 10/13/17 16:04 111 32 100 10/13/17 16:03 98 10/13/17 16:02 200/122 10/13/17 15:59 113 29 157/102 100 10/13/17 15:49 110 25 97 10/13/17 15:44 115 26 100 10/13/17 15:39 97 25 96 10/13/17 15:34 101 30 165/98 97 10/13/17 15:34 103 10/13/17 15:33 98 26 165/98 97 Oxymask 15.0 10/13/17 15:31 74 Room Air 10/13/17 15:28 136/117 10/13/17 13:10 37.3 102 18 155/75 98 Room Air Vital Signs - as noted Laboratory Data - as noted Physical Exam: General - Intubated and Sedated on propofol and intermittent bolus of Versed/ Fentanyl, RASS -2 Eyes - Pupils equal and slow to react to light, No icterus, gaze conjugate ENT - Mucosa moist, no lesions or candidiasis, 7.[address] to 22cm at the lips Neck - Supple, trachea midline, no masses or lymphadenopathy, no JVD or bruits Lungs - No paradoxical chest wall movement, clear to auscultation bilaterally, no wheezes, rales, or rhonchi Heart - Reg rate and rhythm, No murmur, rubs, clicks, or gallops appreciated Abdomen - BS present, no bruits noted, tympanic to percussion, soft, mild tenderness noted, guarding on palpation and percussion, moderately distended and obese, no organomegaly, multiple healed prior surgical scars Extremities - No edema, pedal pulses intact Neuro - RASS - 2, GCS: 3 Strength - Not assessed Reflexes - Bicep, brachioradialis, patellar, and plantar normal and equal CN - PERRL, EOMI, no facial asymmetry, uvula/tongue midline Laboratory Results Last 24 Hours Test 10/13/17 14:44 10/13/17 15:38 10/13/17 15:42 10/13/17 16:15 White Blood Count 17.15 K/uL Red Blood Count 4.93 M/uL Hemoglobin 13.9 g/dL Hematocrit 42.1 % Mean Corpuscular Volume 85.4 fL Mean Corpuscular Hemoglobin 28.2 pg Mean Corpuscular Hemoglobin Concent 33.0 g/dl Platelet Count 215 K/uL Mean Platelet Volume 9.4 fL Neutrophils (%) (Auto) 85.8 % Lymphocytes (%) (Auto) 7.3 % Monocytes (%) (Auto) 5.6 % Eosinophils (%) (Auto) 0.8 % Basophils (%) (Auto) 0.2 % Neutrophils # (Auto) 14.72 K/uL Lymphocytes # (Auto) 1.25 K/uL Monocytes # (Auto) 0.96 K/uL Eosinophils # (Auto) 0.13 K/uL Basophils # (Auto) 0.04 K/uL RDW Standard Deviation 47.0 fL RDW Coefficient of Variation 15.4 % Immature Granulocyte % (Auto) 0.3 % Immature Granulocyte # (Auto) 0.05 K/uL Sodium Level 142 mmol/L Potassium Level 4.1 mmol/L Chloride Level 104 mmol/L Carbon Dioxide Level 25 mmol/L Anion Gap 13.0 mmol/L Blood Urea Nitrogen 17 mg/dl Creatinine 1.19 mg/dl Est Creatinine Clear Calc Drug Dose 46.8 ml/min Estimated GFR () 57.9 Estimated GFR (Non- 49.9 BUN/Creatinine Ratio 14.2 Random Glucose 153 mg/dl Calcium Level 9.4 mg/dl Total Creatine Kinase 148 U/L Creatine Kinase MB 6.0 ng/ml Creatine Kinase MB Ratio 4.1 Lipase 119 U/L Bedside Glucose 225 mg/dl Urine Color YELLOW Urine Appearance CLEAR Urine pH 6.0 Urine Specific Elysian 1.018 Urine Protein 3+ Urine Glucose (UA) NEG Urine Ketones NEG Urine Occult Blood TRACE Urine Nitrite NEG Urine Bilirubin NEG Urine Urobilinogen NEG Urine Leukocyte Esterase NEG Urine WBC (Auto) 1-5 /hpf Urine RBC (Auto) 0-4 /hpf Urine Hyaline Casts (Auto) 1-5 /lpf Urine Epithelial Cells (Auto) 10-20 /lpf Urine Bacteria (Auto) NEG Urine Opiates Screen NEG Urine Methadone, Qualitative NEG Urine Barbiturates NEG Urine Phencyclidine (PCP) Level NEG Ur Amphetamine/Methamphetamine NEG MDMA (Ecstasy) Screen NEG Urine Benzodiazepines Screen NEG Urine Cocaine Metabolite NEG Urine Marijuana (THC) NEG Test 10/13/17 16:50 10/13/17 16:52 10/13/17 17:19 10/13/17 18:10 Bedside Troponin I 0.080 ng/ml Bedside Lactic Acid Venous 0.92 mmol/L Venous Blood pH 7.33 Venous Blood Partial Pressure CO2 45 mmHg Venous Blood Partial Pressure O2 54 mmHg Venous Blood HCO3 23 mmol/L Venous Blood Oxygen Saturation 83.5 % Venous Blood Base Excess -3.0 mEq/L CSF Color COLORLESS CSF Appearance CLEAR CSF WBC 0 /uL CSF RBC 1 /uL CSF Xanthrochromic NO XANTHOCHROMIA CSF Cell Count Tube # 4 CSF Chemistry Tube # 2 CSF Glucose 87 mg/dl CSF Total Protein 53.4 mg/dl Diagnostic Results CHEST ONE VIEW PORTABLE CLINICAL HISTORY: Central line placement COMPARISON STUDY: Chest radiograph October 13, 2017 at 4:27 PM. FINDINGS: The endotracheal tube has been slightly withdrawn. The tip is 2.5 cm above the tisha. There has been interval placement of a left internal jugular central line. Catheter tip projects over the left brachycephalic vein. Cardiomegaly is unchanged. Sensitivity for detection of pneumothorax is diminished on this supine exam but no pneumothorax is identified. A dual lead right subclavian pacer/AICD is in place. There is persistent pulmonary edema. IMPRESSION: 1. No pneumothorax following placement of a left internal jugular central line. Catheter tip projects over the left brachiocephalic vein. 2. Satisfactory positioning of the endotracheal tube. 3. Persistent mild pulmonary edema. Electronically signed by: Phil Devries M.D. 10/13/2017 5:40 PM Dictated Date/Time: 10/13/2017 5:38 PM CHEST ONE VIEW PORTABLE CLINICAL HISTORY: Post intubation. COMPARISON STUDY: Chest radiograph May 28, 2017. FINDINGS: The tip of the endotracheal tube is 1.3 cm above the tisha. A dual lead right-sided pacer/AICD is in place. Cardiomegaly is unchanged. There is mild pulmonary edema. There is no pneumothorax or pleural effusion. IMPRESSION: 1. Tip of endotracheal tube 1.3 cm above the tisha. The tube could be withdrawn 1.5 cm. 2. Mild pulmonary edema. 3. No pneumothorax. Electronically signed by: Phil Devries M.D. 10/13/2017 4:54 PM Dictated Date/Time: 10/13/2017 4:[address] OF THE ABDOMEN AND PELVIS WITH CONTRAST CLINICAL HISTORY: Altered mental status. COMPARISON STUDY: CT of the abdomen and pelvis February 07, 2017. TECHNIQUE: Following IV administration of 93 mL of Optiray-320, axial images of the abdomen and pelvis were obtained from the lung bases to the proximal femurs. Images were reviewed in the axial, sagittal, and coronal planes. IV contrast was administered without complication. A dose lowering technique was utilized adhering to the principles of ALARA. CT DOSE: 1748.88 mGy.cm FINDINGS: The chest will be reported separately. No pneumatosis, free air or portal venous gas is present. Mild splenomegaly is unchanged. There is fatty infiltration of the liver. The main, left and right portal veins are patent. The 2.5 cm cystic lesion within the pancreatic head is unchanged since CT of February 07, 2017. There is no biliary or pancreatic ductal dilatation. Right hydronephrosis is unchanged and suggests a congenital UPJ type obstruction. Postsurgical findings involving the anterior abdominal wall with a small amount of fluid are unchanged. A Gerard pouch is noted. There is no bowel obstruction. No lymphadenopathy is present. There are no suspicious osseous lesions. A [place] balloon is present within the bladder. There is minimal infiltration gas within the left groin. No peripancreatic or pericholecystic infiltration is noted. There is no bowel obstruction. IMPRESSION: 1. No acute process within the abdomen or pelvis. 2. Stable 2.5 cm cystic lesion within the pancreatic head. This remains indeterminate. 3. Minimal gas and infiltration within the left groin which may be postprocedural. 4. 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 Electronically signed by: Phil Devries M.D. 10/13/2017 6:20 PM Dictated Date/Time: 10/13/2017 6:[address] ANGIOGRAPHY OF THE CHEST, PULMONARY EMBOLUS PROTOCOL CLINICAL HISTORY: Altered mental status. COMPARISON STUDY: Chest radiograph May 28, 2017 and October 13, 2017. TECHNIQUE: Following IV administration of 93 mL of Optiray-320, helical axial images of the chest were obtained utilizing the pulmonary embolus protocol. Maximal intensity projections and sagittal and coronal reformats were viewed on an independent 3D workstation. IV contrast was administered without complication. A dose lowering technique was utilized adhering to the principles of ALARA. FINDINGS: No pulmonary emboli are identified. The tip of the endotracheal tube is 2.8 cm above the tisha. The heart is moderately enlarged with concentric left ventricular hypertrophy. There is no pericardial effusion. A few prominent mediastinal lymph nodes are noted. These are likely benign. There is moderate coronary artery calcification. Trace bilateral pleural effusions, right larger than left, are noted. There is no pneumothorax. The tip of the left internal jugular central line is within the left brachiocephalic vein. Interlobular septal thickening and groundglass opacities suggest pulmonary edema. Bilateral lower lobe opacities favor atelectasis. A right subclavian pacer/AICD is in place. The abdomen and pelvis CT will be reported separately. IMPRESSION: 1. No pulmonary emboli identified. 2. Findings consistent with moderate pulmonary edema. Trace bilateral pleural effusions. 3. Dependent airspace opacities within the lungs which favor atelectasis. 4. Moderate cardiomegaly with left ventricular hypertrophy. 5. Tip of endotracheal tube 2.8 cm above the tisha. Electronically signed by: Phil Devries M.D. 10/13/2017 6:14 PM Dictated Date/Time: 10/13/2017 6:[address] OF THE HEAD WITHOUT CONTRAST CLINICAL HISTORY: Fall. COMPARISON STUDY: Head CT January 08, 2017 and MRI of the brain March 15, 2017. CT DOSE: 4271.71 mGy.cm TECHNIQUE: Helical axial images of the head were obtained without IV contrast. Automated exposure control was utilized for the study. A dose lowering technique was utilized adhering to the principles of ALARA. FINDINGS: This exam is moderately compromised by motion artifact. No acute intracranial hemorrhage, midline shift or mass effect is present. Ventricular system is stable. Basilar cisterns are patent. There are no extra axial collections. White matter hypodensities are unchanged. Sensitivity for detection of calvarial fractures is diminished but none are identified. Minimal layering secretions within the right maxillary sinus are noted. IMPRESSION: 1. Study moderately compromise by motion artifact. No acute intracranial findings identified. 2. Decreased sensitivity for detection of calvarial fractures given motion artifact but none identified. Electronically signed by: Phil Devries M.D. 10/13/2017 3:55 PM Dictated Date/Time: 10/13/2017 3:[address] CLINICAL HISTORY: Ongoing thoracic and lumbar back pain. COMPARISON STUDY: CT of the abdomen and pelvis February 07, 2017. FINDINGS: This exam is mildly compromised by motion artifact. This decreases the sensitivity for detection of nondisplaced fractures but no acute lumbar spine fracture is identified. Alignment is anatomic. Vertebral body heights are maintained. There is mild disc space narrowing with osteophytosis and vacuum disc phenomenon at T12-L1. Right collecting system dilatation was shown on previous imaging studies. This is diminished when compared to study of February 07, 2017. IMPRESSION: 1. No acute lumbar spine fracture or subluxation. Study mildly compromised by motion artifact. 2. Mild multilevel degenerative disc disease and facet arthrosis. Electronically signed by: Phil Devries M.D. 10/13/2017 4:05 PM Dictated Date/Time: 10/13/2017 4:01 PM THORACIC SPINE WITHOUT CLINICAL HISTORY: Ongoing thoracic and lumbar back pain. Fall. COMPARISON STUDY: No previous studies for comparison. FINDINGS: Alignment of the thoracic spine is anatomic. Vertebral body heights are maintained. Disc spaces are preserved. There is mild endplate osteophytosis. Central canal and neural foramen are suboptimally assessed by CT. There is a small central disc protrusion with calcification at T9-T10. Interlobular septal thickening within the lungs represent pulmonary edema. Groundglass opacities also suggest pulmonary edema. Heart is moderately enlarged. Pacer leads are partially imaged. There may be trace effusions. IMPRESSION: 1. No acute thoracic spine fracture or subluxation. 2. Mild multilevel degenerative disc disease with a small central disc protrusion at T9-T10. 3. Moderate pulmonary edema. Electronically signed by: Phil Devries M.D. 10/13/2017 4:01 PM Dictated Date/Time: 10/13/2017 3:56 PM Assessment & Plan (1) Elevated troponin (2) Transaminitis (3) Acute respiratory failure (4) HOCM (hypertrophic obstructive cardiomyopathy) (5) Hypertension (6) Diabetes mellitus, type 2 (7) Altered mental status (8) Hydronephrosis of right kidney Reason Critically Ill: Patient is a 57-year-old female who is transferred to the ICU intubated after concern for airway security secondary to altered mental status. There was concern for acute reaction to a new medication versus NMS verus Serotonin Syndrome. Providers in the ED have documented myotonic movements as well. Pt was intubated and sedated upon my examination. All reflexes appropriate and normal. Pt did not demonstrated pyrexia, hypertension , tachycardia, rigidity or clonus. Pt remains intubated and sedated over night. There is also concern for viral exposure and possible cardiac compromise secondary to elevated cardiac markers in the setting of recent cold like symptoms. PLAN: Neuro: * AMS: Suspicious for neuro malignant syndrome versus serotonin syndrome secondary to patient's recent discontinuation of Cymbalta concern. Pt seen with irregular movement by other providers in ED. Not seen in ICU * Patient underwent spinal tap: CSF demonstrated an elevated glucose of 87 and a total protein of 53.4 otherwise within normal limits * Patient negative for alcohol and drug screens * CT Head Neg for acute intracranial process: Will Hold MRI secondary to Defibrillator/Pacemaker Currently * Patient is not demonstrating symptoms such as hypertension, tachycardia or hyperthermia, or neurologic changes such as clonus; therefore, unlikely * However continue to monitor for neurologic changes hourly * Monitor for rigidity and clonus * Patient currently sedated on propofol infusion * Continued with movement and agitation; additional when necessary 2 mg IV Versed and 50 g IV fentanyl pushes ordered * Goal RASS -2 * Spontaneous awakening trial planned for morning Resp: * Patient had an episode of hypoxia in the emergency department and was placed on 15 L nonrebreather and subsequently intubated after 2 failed attempts * Settings of assist control 16/500/5/50% with ABG of 7.413/34.7/147/22.2 * Wean FiO2 to 30% * Repeat ABG with spontaneous breathing/spontaneous awakening trial at 0600 * Repeat chest x-ray in morning * CT angiography ruled out pulmonary emboli. Moderate pulmonary edema noted with trace bilateral pleural effusions * Procalcitonin negative, current chest x-ray demonstrates fluid overload * No current indication of pneumonia or bacterial process; hold broad-spectrum antibiotics at this time CV: * Elevated cardiac markers; likely secondary to demand ischemia * Patient complained to family practice prior to admission of chest pain and arm numbness * Continue to trend troponin * EKG repeated without significant findings of acute ischemia * BNP, CK-MB, LDH elevated: * ECHO pending * Repeat EKG in AM * ECHO 12/2016 conclusions were consistent with apical variant of hypertrophic cardiomyopathy without left ventricular outflow tract obstruction or mitral regurgitation, asymmetric left ventricular hypertrophy, asymmetric hypertrophy involves the intraventricular septum left ventricular apex, left ventricular systolic function is normal with an EF of 60-65%. No left ventricular wall motion abnormality is noted. Diastolic dysfunction grade 2 without significant valvular heart disease. * Will consult [facility] cardiology * Patient follows with Dr. Bruno * Appreciate Dr. Sandhu's input * Prior prolonged QTC resolved now 406 * History of HOCM requiring defibrillator/pacemaker * Monitor on telemetry Fluids/Renal: * Patient currently appears fluid overloaded; however, patient received large amounts of contrast for CT * We'll repeat PRP at 0000; if creatinine remains below 1.25 will diurese patient with 40 of Lasix * No additional IV fluids at this time * BUNs/creatinine currently within normal limits, however monitor for acute kidney injury secondary to contrast load. Labs will lag approx 24 hours * Electrolytes currently WNL, monitor daily * CT abdomen and pelvis demonstrates unchanged hydronephrosis suggested of a congenital UPJ type obstruction. * Guaman catheter to gravity: 1300 mL of concentrated urine ID: * Pro calcitonin negative at 0.19; lactic acid negative at 0.92 * Blood cultures and she will spinal fluid cultures pending * Urinalysis unremarkable * Trend fever curve * Mild leukocytosis at 17.15; repeat daily * Patient does not appear to be septic or infectious from a bacterial standpoint , more likely ill secondary to possible viral component * Patient did receive 1 time dose of 2 g of Rocephin as well as stress dose steroids in the emergency department * We'll hold currently * Patient given a 1 time dose of Tamiflu while flu PCR pending * PCR now negative; discontinue Tamiflu GI/Nutrition: * Nothing by mouth * Hypoalbuminemia; monitor likely acute phase reactant * Acute rise in LFTs: Continue to trend * CT abdomen demonstrates a stable 2.5 cm cystic lesion within the pancreatic head. A Gerard pouch as noted. No bowel obstruction. * GI Prophylaxis: Protonix in place Heme: * H&H stable 13.9/42.1; platelets 215 * Coags PT/INR: 111.0; aPTT 25.4 * DVT prophylaxis: Held today secondary to recent lumbar puncture. Begin Lovenox 0900 10/14 * Monitor H&H daily; No current signs of gross bleeding Endocrine: * DM2: Without insulin use * A1C 08/31/17 6.4 Avg Daily Glucose 137 * Accu-Checks per protocol, started insulin infusion for 2 blood sugars greater than 180 * TSH WNL this admission CCT: 50 Minutes; This time is exclusive of all separately billable procedures. Thank you for involving us in the care of this patient. Please refer to Dr. Cedric Soto's addendum for further recommendations. I have personally evaluated and examined this patient. I agree with assessment and plan of Sourav Smith PA-C. Holding psychotropic medications at this point, continue to monitor for rigidity and fever for possible neuroleptic malignant syndrome versus serotonin syndrome.
[2017-10-13] MEDS ORDERED: OSELTAMIVIR PHOSPHATE 6 MG/ML SUSP PO ONE (21:14)
[2017-10-13 21:48] LABS: ISTAT ALLEN TEST Pass; ISTAT ARTERIAL BLOOD GAS HCO3 22 meq/L (19-24); ISTAT ARTERIAL BLOOD GAS PCO2 35 mmHg (35-46); ISTAT ARTERIAL BLOOD GAS PO2 147 mmHg (80-95); ISTAT ARTERIAL BLOOD GAS pH 7.41 (7.35-7.45); ISTAT CARBON DIOXIDE 23 mEq/l (24-31); ISTAT DELIVERY SYSTEM Ventilator; ISTAT FIO2 50 %; ISTAT PEEP 5; ISTAT RATE 16; ISTAT SITE R Radial; VE 7.6; Vt 460
[2017-10-13] MEDS: MIDAZOLAM HCL 5 MG/ML 1 ML VIAL IV PRN (21:48)
[2017-10-13] MEDS: FENTANYL CITRATE INJ 50 MCG/1 ML 2 ML VIAL IV PRN (21:50)
[2017-10-13 22:33] LABS: INFLUENZA A PCR Neg for Influ A (NEG); INFLUENZA B PCR Neg for Influ B (NEG)
[2017-10-13 22:35] LABS: THYROID STIMULATING HORMONE 0.777 uIu/ml (0.300-4.500)
--- NOTE | 2017-10-13 22:36 | DIAGNOSTIC IMAGING REPORT ---
CHEST ONE VIEW PORTABLE CLINICAL HISTORY: OG Tube Placement COMPARISON STUDY: Chest radiograph and chest CT performed earlier today. FINDINGS: Tip of nasogastric tube is below the lower aspect of this image but at least within the mid body of the stomach. The tip of the endotracheal tube is 3 cm above the tisha. There is no pneumothorax. Cardiomegaly is unchanged. Interstitial thickening persists. There are bibasilar opacities. A right subclavian pacer/AICD is in place. A left internal jugular central line remains in place. IMPRESSION: 1. Tip of nasogastric tube below lower aspect of this image but at least within the mid body of the stomach. 2. Satisfactory positioning of the endotracheal tube. 3. Persistent pulmonary edema and bibasilar opacities which could reflect atelectasis or pneumonia. Electronically signed by: Phil Devries M.D. 10/13/2017 10:35 PM Dictated Date/Time: 10/13/2017 10:32 PM
[2017-10-14] VITALS (33 sets, daily range): BP systolic 111–163; BP diastolic 66–103; PULSE 75–96; TEMP 36.6–37.4; O2SAT 95–100
[2017-10-14] MEDS: MIDAZOLAM HCL 5 MG/ML 1 ML VIAL IV PRN (00:02)
[2017-10-14] MEDS: FENTANYL CITRATE INJ 50 MCG/1 ML 2 ML VIAL IV PRN ×2 (00:02→10:04)
[2017-10-14 01:26] LABS: BUN/CREATININE RATIO 15.9 (10-20); CREATININE 0.84 mg/dl (0.60-1.20); POTASSIUM 3.8 mmol/L (3.5-5.1)
[2017-10-14] MEDS: PROPOFOL IV EMULSION 10 MG/ML 100 ML VIAL IV PRN ×4 (01:41→17:46)
[2017-10-14] MEDS ORDERED: FUROSEMIDE 40 MG/4 ML VIAL IV STA (01:54)
[2017-10-14 06:13] LABS: BASO % 0.1 %; BASO ABS # 0.01 K/uL (0-0.2); COMPLETE YES; HEMATOCRIT 37.1 % (37-47); IG% 0.2 %; LYMPH % 4.6 %; LYMPH ABS # 0.67 K/uL (1.2-3.4); MEAN CELL VOLUME 84.9 fL (80-100); MEAN CORPUSCULAR HEMOGLOBIN 28.4 pg (25-34); MEAN CORPUSCULAR HGB CONC 33.4 g/dl (32-36); MEAN PLATELET VOLUME 9.2 fL (7.4-10.4); MONO % 4.4 %; NEUT % 90.7 %; PLATELET COUNT 162 K/uL (130-400); RED BLOOD COUNT 4.37 M/uL (4.2-5.4); WHITE BLOOD COUNT 14.41 K/uL (4.8-10.8)
[2017-10-14 06:42] LABS: BUN/CREATININE RATIO 15.7 (10-20); CALCIUM 8.6 mg/dl (8.5-10.1); CREATININE 0.91 mg/dl (0.60-1.20); MAGNESIUM 2.1 mg/dl (1.8-2.4); PHOSPHORUS 2.8 mg/dl (2.5-4.9); POTASSIUM 3.4 mmol/L (3.5-5.1)
[2017-10-14 06:45] LABS: ISTAT ALLEN TEST Pass; ISTAT ARTERIAL BLOOD GAS HCO3 24 meq/L (19-24); ISTAT ARTERIAL BLOOD GAS PCO2 34 mmHg (35-46); ISTAT ARTERIAL BLOOD GAS PO2 87 mmHg (80-95); ISTAT ARTERIAL BLOOD GAS pH 7.44 (7.35-7.45); ISTAT CARBON DIOXIDE 25 mEq/l (24-31); ISTAT DELIVERY SYSTEM Ventilator; ISTAT FIO2 30 %; ISTAT PEEP 5; ISTAT RATE 16; ISTAT SITE R Radial; VE 7.8; Vt 500
[2017-10-14] MEDS ORDERED: POTASSIUM CHLR 20 MEQ / WTR 20 MEQ in PREMIXED WATER 100 ML IV STA (06:45)
--- NOTE | 2017-10-14 08:32 | DIAGNOSTIC IMAGING REPORT ---
CHEST ONE VIEW PORTABLE HISTORY: Intubated COMPARISON: Chest 10/13/2017. FINDINGS: Endotracheal tube terminates 3 cm from the tisha. Nasogastric tube terminates below the diaphragm. No pneumothorax. No pleural effusions. Right-sided pacemaker/defibrillator. The heart remains mildly enlarged. Pulmonary edema has resolved. Linear density at the left lung base persist. Left jugular central venous catheter terminates at the brachiocephalic/SVC junction. This remains unchanged. IMPRESSION: 1. Satisfactory support line placement. 2. Interval resolution of the pulmonary edema. 3. Left basilar linear densities persist. This may represent atelectasis or pneumonia. Electronically signed by: Serg Arias M.D. 10/14/2017 8:31 AM Dictated Date/Time: 10/14/2017 8:29 AM
[2017-10-14] MEDS: ENOXAPARIN 40 MG/0.4 ML SYR SQ SCH (08:42)
[2017-10-14] MEDS: PANTOprazole INJ 40 MG in SYRINGE 0 ML IV SCH (08:43)
--- NOTE | 2017-10-14 08:51 | ECHOCARDIOGRAM REPORT ---
*NOTICE TO RECEIVING LIBERTARIAN AGENCY This information is strictly Confidential and protected under [place] law. [place] law prohibits you from making any further disclosure of this information unless further disclosure is expressly permitted by the written consent of the person to whom it pertains or is authorized by law. A general authorization for the release of medical or other information is not sufficient for this purpose. Hospital accepts no responsibility if the information is made available to any other person, INCLUDING THE PATIENT. Interpretation Summary * Name: AUGUSTO GUZMAN Study Date: 10/14/2017 06:45 AM BP: 138/97 mmHg * Patient Location: .MSICU\S\E110\S\1 HR: 83 * : 1960 (M/d/yyyy) Gender: Female Height: 60 in * Age: 57 yrs Ethnicity: [place] Weight: 170 lb * Ordering Physician: Cedric Soto * Referring Physician: Self, Referred * Performed By: González Estrada RDCS * * Reason For Study: Chest pain * BSA: 1.7 m2 * The study was technically difficult. * -- Conclusions -- * The study was completed with the patient on mechanical ventilation. * Findings consistent with apical variant of hypertrophic cardiomyopathy without left ventricular outflow tract obstruction or mitral regurgitation. * There is asymmetric left ventricular hypertrophy. * The asymmetric hypertrophy involves the interventricular septum left ventricular apex. * No regional wall motion abnormalities noted. * Left ventricular systolic function is normal. * The LV Ejection Fraction = 60-65%. * The right ventricle is normal in size and function. * Significant mitral regurgitation is absent. * Doppler findings do not suggest pulmonary hypertension. * The average E/e' (septal and lateral) ration=15.8 consistent with elevated left ventricular diastolic filling pressure. * There is no significant valvular heart disease. * Compared with the prior study dated 01/09/17, there has been no significant interval change. Procedure Details * A complete two-dimensional transthoracic echocardiogram was performed (2D, M-mode, Doppler and color flow Doppler). * The study was technically difficult, but visualization was adequate with the administration of Definity ultrasound contrast. * A contrast injection of Definity was performed to improve assessment of LV function. * Contrast was injected into an intravenous site in the central line. * Lot # [id number] of Definity utilized for procedure. * One vial of Definity ultrasound contrast was diluted in normal saline to a total volume of 10 ml. A total of '3' ml of solution was administered during imaging. * Expiration date 1DEC18. * The attending nurse who injected the contrast agent was NURSE, JT. Left Ventricle * The left ventricular cavity is small. * There is asymmetric left ventricular hypertrophy. The asymmetric hypertrophy involves the interventricular septum left ventricular apex. * Left ventricular systolic function is normal. * Ejection Fraction = 60-65%. * The left ventricular wall motion is normal. * No regional wall motion abnormalities noted. Right Ventricle * The right ventricle is normal in size and function. * The right ventricular systolic function is normal as assessed by tricuspid annular plane systolic excursion (TAPSE) (normal >1.5 cm). Atria * The left atrial size is normal. * Right atrial size is normal. * There is no evidence of atrial septal defect, but resolution does not allow assessment for a patent foramen ovale. Mitral Valve * The mitral valve is normal. * There is no mitral valve stenosis. * Significant mitral regurgitation is absent. Tricuspid Valve * The tricuspid valve is normal. * There is no tricuspid stenosis. * Significant tricuspid regurgitation is absent. * Doppler findings do not suggest pulmonary hypertension. Aortic Valve * The aortic valve is trileaflet. * Aortic stenosis is absent. * There is no significant aortic regurgitation. Pulmonic Valve * The pulmonary valve is not well seen, but the Doppler examination is normal without significant regurgitation or stenosis. Great Vessels * The aortic root and proximal ascending aorta are normal sized. Pericardium/Pleural * There is no pericardial effusion. Right Ventricle * An implantable deffibrillator lead is visualized in the right ventricle. Great Vessels * Normal inferior vena cava diameter and respiratory variation suggests normal central venous pressure. Left Ventricular Diastolic Function * Grade I diastolic dysfunction, (abnormal relaxation pattern). * The average E/e' (septal and lateral) ration=15.8 consistent with elevated left ventricular diastolic filling pressure. MMode 2D Measurements and Calculations IVSd 2.2 cm IVSs 2.7 cm LVIDd 3.6 cm LVIDs 2.5 cm LVPWd 1.3 cm LVPWs 1.8 cm IVS/LVPW 1.6 FS 30.1 % EDV(Teich) 56.1 ml ESV(Teich) 23.4 ml EF(Teich) 58.3 % EDV(cubed) 48.5 ml ESV(cubed) 16.6 ml EF(cubed) 65.8 % % IVS thick 20.8 % % LVPW thick 36.2 % LV mass(C)d 270.0 grams LV mass(C)dI 155.0 grams/m\S\2 LV mass(C)s 277.3 grams LV mass(C)sI 159.2 grams/m\S\2 SV(Teich) 32.7 ml SI(Teich) 18.8 ml/m\S\2 SV(cubed) 31.9 ml SI(cubed) 18.3 ml/m\S\2 Ao root diam 2.7 cm Ao root area 5.9 cm\S\2 ACS 1.6 cm LA dimension 4.3 cm asc Aorta Diam 3.0 cm LA/Ao 1.6 LVOT diam 2.0 cm LVOT area 3.1 cm\S\2 LVAd ap4 14.5 cm\S\2 LVLd ap4 7.1 cm EDV(MOD-sp4) 25.5 ml EDV(sp4-el) 25.1 ml LVAs ap4 8.1 cm\S\2 LVLs ap4 6.1 cm ESV(MOD-sp4) 9.1 ml ESV(sp4-el) 9.1 ml EF(MOD-sp4) 64.4 % EF(sp4-el) 63.9 % LVAd ap2 20.1 cm\S\2 LVLd ap2 7.8 cm EDV(MOD-sp2) 47.5 ml EDV(sp2-el) 44.1 ml LVAs ap2 11.8 cm\S\2 LVLs ap2 7.3 cm ESV(MOD-sp2) 18.5 ml ESV(sp2-el) 16.3 ml EF(MOD-sp2) 60.9 % EF(sp2-el) 63.1 % LVLd %diff 8.3 % EDV(MOD-bp) 37.8 ml LVLs %diff 14.6 % ESV(MOD-bp) 12.9 ml EF(MOD-bp) 65.9 % SV(MOD-sp4) 16.4 ml SI(MOD-sp4) 9.4 ml/m\S\2 SV(MOD-sp2) 28.9 ml SI(MOD-sp2) 16.6 ml/m\S\2 SV(MOD-bp) 25.0 ml SI(MOD-bp) 14.3 ml/m\S\2 SV(sp4-el) 16.1 ml SI(sp4-el) 9.2 ml/m\S\2 SV(sp2-el) 27.8 ml SI(sp2-el) 16.0 ml/m\S\2 Doppler Measurements and Calculations MV E max harriet 54.5 cm/sec MV A max harriet 87.4 cm/sec MV E/A 0.62 MV dec time 0.15 sec Ao V2 max 142.5 cm/sec Ao max PG 8.1 mmHg Ao max PG (full) 5.0 mmHg NASRIN(V,A) 1.9 cm\S\2 NASRIN(V,D) 1.9 cm\S\2 LV V1 max PG 3.1 mmHg LV V1 max 88.7 cm/sec PA V2 max 128.1 cm/sec PA max PG 6.6 mmHg PA acc slope 749.3 cm/sec\S\2 PA acc time 0.14 sec PA pr(Accel) 16.5 mmHg
[2017-10-14] MEDS ORDERED: PANTOprazole INJ 40 MG in SYRINGE 0 ML IV SCH (09:00)
[2017-10-14] MEDS ORDERED: OSELTAMIVIR PHOSPHATE 6 MG/ML SUSP PO SCH (09:00)
--- NOTE | 2017-10-14 09:21 | Progress Note ---
Medicine Progress Note Date & Time of Visit: Oct 14, 2017 at 08:15 . Subjective Sedated on ventilator. No overnight problems reported. . Objective Last 8 Hrs Date Time Temp Pulse Resp B/P (MAP) Pulse Ox O2 Delivery O2 Flow Rate FiO2 10/14/17 07:25 30 10/14/17 06:02 82 123/99 (107) 95 10/14/17 06:00 82 98 10/14/17 05:50 30 10/14/17 05:02 78 16 150/103 (119) 99 10/14/17 05:00 76 16 99 10/14/17 04:28 30 10/14/17 04:28 100 Mechanical Ventilator 30 10/14/17 04:01 36.7 76 17 138/97 (111) 97 10/14/17 04:00 76 16 98 10/14/17 03:01 76 16 156/88 (110) 98 10/14/17 03:00 75 16 98 10/14/17 02:35 30 10/14/17 02:01 75 16 148/87 (107) 97 10/14/17 02:00 75 16 97 Physical Exam: General- appears to be comfortable Eyes- anicteric ENT- oral endotracheal tube; oral gastric tube Neck- supple; left IJ catheter Lungs- equal breath sounds; few scattered rhonchi Heart- RRR, II/ systolic murmur at base Abdomen- quiet BS, soft, nontender Extremities- trace pretibial edema, SCD's applied to lower extremities Neuro- sedated; pupils 2 mm, reactive . Laboratory Results: Last 24 Hours Test 10/13/17 14:44 10/13/17 15:38 10/13/17 15:42 10/13/17 16:15 White Blood Count 17.15 K/uL Red Blood Count 4.93 M/uL Hemoglobin 13.9 g/dL Hematocrit 42.1 % Mean Corpuscular Volume 85.4 fL Mean Corpuscular Hemoglobin 28.2 pg Mean Corpuscular Hemoglobin Concent 33.0 g/dl Platelet Count 215 K/uL Mean Platelet Volume 9.4 fL Neutrophils (%) (Auto) 85.8 % Lymphocytes (%) (Auto) 7.3 % Monocytes (%) (Auto) 5.6 % Eosinophils (%) (Auto) 0.8 % Basophils (%) (Auto) 0.2 % Neutrophils # (Auto) 14.72 K/uL Lymphocytes # (Auto) 1.25 K/uL Monocytes # (Auto) 0.96 K/uL Eosinophils # (Auto) 0.13 K/uL Basophils # (Auto) 0.04 K/uL RDW Standard Deviation 47.0 fL RDW Coefficient of Variation 15.4 % Immature Granulocyte % (Auto) 0.3 % Immature Granulocyte # (Auto) 0.05 K/uL Sodium Level 142 mmol/L Potassium Level 4.1 mmol/L Chloride Level 104 mmol/L Carbon Dioxide Level 25 mmol/L Anion Gap 13.0 mmol/L Blood Urea Nitrogen 17 mg/dl Creatinine 1.19 mg/dl Est Creatinine Clear Calc Drug Dose 46.8 ml/min Estimated GFR () 57.9 Estimated GFR (Non- 49.9 BUN/Creatinine Ratio 14.2 Random Glucose 153 mg/dl Calcium Level 9.4 mg/dl Total Creatine Kinase 148 U/L Creatine Kinase MB 6.0 ng/ml Creatine Kinase MB Ratio 4.1 Lipase 119 U/L Bedside Glucose 225 mg/dl Urine Color YELLOW Urine Appearance CLEAR Urine pH 6.0 Urine Specific [place] 1.018 Urine Protein 3+ Urine Glucose (UA) NEG Urine Ketones NEG Urine Occult Blood TRACE Urine Nitrite NEG Urine Bilirubin NEG Urine Urobilinogen NEG Urine Leukocyte Esterase NEG Urine WBC (Auto) 1-5 /hpf Urine RBC (Auto) 0-4 /hpf Urine Hyaline Casts (Auto) 1-5 /lpf Urine Epithelial Cells (Auto) 10-20 /lpf Urine Bacteria (Auto) NEG Urine Opiates Screen NEG Urine Methadone, Qualitative NEG Urine Barbiturates NEG Urine Phencyclidine (PCP) Level NEG Ur Amphetamine/Methamphetamine NEG MDMA (Ecstasy) Screen NEG Urine Benzodiazepines Screen NEG Urine Cocaine Metabolite NEG Urine Marijuana (THC) NEG Test 10/13/17 16:50 10/13/17 16:52 10/13/17 17:19 10/13/17 18:10 Bedside Troponin I 0.080 ng/ml Bedside Lactic Acid Venous 0.92 mmol/L Venous Blood pH 7.33 Venous Blood Partial Pressure CO2 45 mmHg Venous Blood Partial Pressure O2 54 mmHg Venous Blood HCO3 23 mmol/L Venous Blood Oxygen Saturation 83.5 % Venous Blood Base Excess -3.0 mEq/L CSF Color COLORLESS CSF Appearance CLEAR CSF WBC 0 /uL CSF RBC 1 /uL CSF Xanthrochromic NO XANTHOCHROMIA CSF Cell Count Tube # 4 CSF Chemistry Tube # 2 CSF Glucose 87 mg/dl CSF Total Protein 53.4 mg/dl Test 10/13/17 21:08 10/13/17 21:30 10/13/17 21:34 10/13/17 21:54 Prothrombin Time 11.0 SECONDS Prothromb Time International Ratio 1.0 Activated Partial Thromboplast Time 25.4 SECONDS Partial Thromboplastin Ratio 1.0 Total Bilirubin 0.8 mg/dl Direct Bilirubin 0.3 mg/dl Aspartate Amino Transf (AST/SGOT) 47 U/L Alanine Aminotransferase (ALT/SGPT) 57 U/L Alkaline Phosphatase 139 U/L Lactate Dehydrogenase 304 U/L Total Creatine Kinase 104 U/L Troponin I 0.120 ng/ml Pro-B-Type Natriuretic Peptide 4796 pg/ml Total Protein 6.6 gm/dl Albumin 3.3 gm/dl Procalcitonin 0.19 ng/ml Thyroid Stimulating Hormone (TSH) 0.777 uIu/ml Ethyl Alcohol mg/dL < 3.0 mg/dl Influenza Type A (RT-PCR) Neg for Influ A Influenza Type B (RT-PCR) Neg for Influ B Blood Gas Sample Site R Radial Bedside Blood Gas pH (LAB) 7.41 Bedside Blood Gas pCO2 (LAB) 35 mmHg Bedside Blood Gas pO2 (LAB) 147 mmHg Bedside Blood Gas HCO3 (LAB) 22 meq/L Bedside Blood Gas Total CO2 23 mEq/l Bedside Blood Gas Base Excess (LAB) -2.0 meq/L Bedside Blood Gas O2 Saturation 99.0 % Rambo Test Pass Oxygen Delivery Device Ventilator Bedside Oxygen Rate (breaths/min) 16 Blood Gas Minute Ventilation 7.6 Bedside FiO2 50 % Blood Gas Tidal Volume 460 Blood Gas PEEP 5 Bedside Glucose 183 mg/dl Test 10/14/17 00:17 10/14/17 00:20 10/14/17 05:49 10/14/17 05:53 Sodium Level 137 mmol/L 139 mmol/L Potassium Level 3.8 mmol/L 3.4 mmol/L Chloride Level 106 mmol/L 103 mmol/L Carbon Dioxide Level 22 mmol/L 25 mmol/L Anion Gap 9.0 mmol/L 11.0 mmol/L Blood Urea Nitrogen 13 mg/dl 14 mg/dl Creatinine 0.84 mg/dl 0.91 mg/dl Est Creatinine Clear Calc Drug Dose 68.9 ml/min 63.6 ml/min Estimated GFR () 88.2 80.0 Estimated GFR (Non- 76.1 69.1 BUN/Creatinine Ratio 15.9 15.7 Random Glucose 191 mg/dl 175 mg/dl Calcium Level 8.0 mg/dl 8.6 mg/dl Bedside Glucose 180 mg/dl 169 mg/dl White Blood Count 14.41 K/uL Red Blood Count 4.37 M/uL Hemoglobin 12.4 g/dL Hematocrit 37.1 % Mean Corpuscular Volume 84.9 fL Mean Corpuscular Hemoglobin 28.4 pg Mean Corpuscular Hemoglobin Concent 33.4 g/dl Platelet Count 162 K/uL Mean Platelet Volume 9.2 fL Neutrophils (%) (Auto) 90.7 % Lymphocytes (%) (Auto) 4.6 % Monocytes (%) (Auto) 4.4 % Eosinophils (%) (Auto) 0.0 % Basophils (%) (Auto) 0.1 % Neutrophils # (Auto) 13.07 K/uL Lymphocytes # (Auto) 0.67 K/uL Monocytes # (Auto) 0.63 K/uL Eosinophils # (Auto) 0.00 K/uL Basophils # (Auto) 0.01 K/uL RDW Standard Deviation 46.8 fL RDW Coefficient of Variation 15.1 % Immature Granulocyte % (Auto) 0.2 % Immature Granulocyte # (Auto) 0.03 K/uL Lactic Acid Level 1.1 mmol/L Phosphorus Level 2.8 mg/dl Magnesium Level 2.1 mg/dl Total Bilirubin 0.8 mg/dl Direct Bilirubin 0.4 mg/dl Aspartate Amino Transf (AST/SGOT) 33 U/L Alanine Aminotransferase (ALT/SGPT) 51 U/L Alkaline Phosphatase 129 U/L Lactate Dehydrogenase 259 U/L Total Creatine Kinase 64 U/L Troponin I 0.079 ng/ml Total Protein 6.7 gm/dl Albumin 3.3 gm/dl Test 10/14/17 06:31 Blood Gas Sample Site R Radial Bedside Blood Gas pH (LAB) 7.44 Bedside Blood Gas pCO2 (LAB) 34 mmHg Bedside Blood Gas pO2 (LAB) 87 mmHg Bedside Blood Gas HCO3 (LAB) 24 meq/L Bedside Blood Gas Total CO2 25 mEq/l Bedside Blood Gas Base Excess (LAB) -1.0 meq/L Bedside Blood Gas O2 Saturation 97.0 % Rambo Test Pass Oxygen Delivery Device Ventilator Bedside Oxygen Rate (breaths/min) 16 Blood Gas Minute Ventilation 7.8 Bedside FiO2 30 % Blood Gas Tidal Volume 500 Blood Gas PEEP 5 Date/Time Source Procedure Growth Status 10/13/17 16:58 Blood Blood Culture Pending Received 10/13/17 16:49 Blood Blood Culture Pending Received 10/13/17 18:10 Cerebral Spinal Fluid Gram Stain - Final Resulted 10/13/17 18:10 Cerebral Spinal Fluid CSF Culture Pending Resulted 10/13/17 21:30 Nasal MRSA DNA Surveillance Screen - Final Specimen Negative for MRSA by DNA Probe Complete Assessment & Plan ALTERED MENTAL STATUS Patient presented to ED with several day history of progressive confusion associated with jerking of upper and lower extremities. Recent medication changes included discontinuation of sertraline and addition of ropinirole for restless legs. Possible respiratory tract infection with perceived fever, pharyngitis, dyspnea. Also complained of a headache to her daughter. Head CT negative for apparent acute infarct, bleed, mass, etc. Leukocytosis noted. Consider encephalopathy secondary to sepsis, although source not apparent from initial evaluation in ED. LP performed by ED physician- no WBC's; RBC's 172 tube # 1 --> 1 tube # 4; glucose 87, protein 53. Check EEG. Taking several medications with anticholinergic properties (amitriptyline, dicyclomine, diphenoxylate / atropine, hydroxyzine, trazodone). Consider encephalopathy secondary to medications. LEUKOCYTOSIS WBC 17,150. Afebrile in ED. CT of chest demonstrated bibasilar densities, atelectasis versus infiltrate ( atelectasis felt to be most likely per Radiology). No acute findings on CT of abdomen and pelvis. Urinalysis essentially negative. LP as noted above. [employer] swab for influenza A/B PCR neg. Blood cultures obtained in ED and patient received a dose of ceftriaxone. Afebrile today. WBC 17,000 --> 14,000. Follow pending cultures. Monitor for signs/symptoms of specific infection. ENDOTRACHEAL INTUBATION / MECHANICAL VENTILATION Intubated in ED for airway protection. Management per Critical Care Medicine. HYPERTROPHIC CARDIOMYOPATHY Serum troponin 0.12 --> 0.079. EKG this morning shows normal sinus rhythm at 80/minute, LVH, no acute ST or T- wave abnormalities. Echo consistent with apical. Hypertrophic cardiomyopathy without left ventricular outflow tract obstruction, normal LVEF, no segmental wall motion abnormalities. Elevated troponin most likely nonspecific elevation due to acute illness and not due to acute coronary syndrome. Hemodynamically stable. Resume metoprolol when able. HYPERTENSION Hemodynamically stable. Resume metoprolol when able. DM TYPE 2 Managed with metformin in the past, but no longer taking it. Check Hgb A1C. Random glucose 153 in ED. Glucose this morning 169. Follow blood sugars and manage per protocol. GI / NUTRITION Pantoprazole for GI prophylaxis. VTE PROPHYLAXIS No anticoagulants at this time due to LP. SCD's. DISPOSITION Critically ill. Admit to ICU. Discharge disposition to be determined. Family Medicine follow-up with Dr. Suad De León. . Current Inpatient Medications: Current Inpatient Medications Medications (Trade) Dose Ordered Sig/Nessa Route Start Time Stop Time Status Last Admin Dose Admin Ioversol (Optiray 320) 100 ml UD PRN IV 10/13/17 16:00 10/17/17 15:59 Pantoprazole Sodium 40 mg/ Syringe 10 ml @ 5 mls/min DAILY IV 10/14/17 09:00 11/13/17 08:59 10/14/17 08:43 5 MLS/MIN Midazolam HCl (Versed Inj) 2 mg Q1H PRN IV 10/13/17 19:45 11/12/17 19:44 10/14/17 00:02 2 MG Fentanyl Citrate (Fentanyl Inj) 50 mcg Q1H PRN IV 10/13/17 19:45 10/27/17 19:44 10/14/17 00:02 50 MCG Propofol (Diprivan Iv Emulsion 100ml Vial) 1 dose UD PRN IV 10/13/17 20:17 10/16/17 20:16 10/14/17 05:39 1 DOSE Enoxaparin Sodium (Lovenox Inj) 40 mg QAM SQ 10/14/17 09:00 11/13/17 08:59 10/14/17 08:42 40 MG
[2017-10-14] MEDS ORDERED: IPRATROPIUM BROMIDE NEB SOLN 0.02% 2.5 ML VIAL INH PRN (09:30)
[2017-10-14] MEDS ORDERED: LEVALBUTEROL/IPRATROPIUM NEB INH PRN (09:30)
[2017-10-14] MEDS ORDERED: LEVALBUTEROL 1.25MG/0.5ML NEB INH PRN (09:30)
[2017-10-14] MEDS ORDERED: POTASSIUM ACETATE INJ 20 MEQ in SODIUM CHLORIDE 0.9% 100ML 100 ML IV ONE (10:00)
[2017-10-14] MEDS: INSULIN GLARGINE SOLOSTAR 100 UNITS/ML 3 ML PEN SC SCH (10:12)
[2017-10-14] MEDS ORDERED: FIBERSOURCE HN 1000ML BAG OG PRN ×2 (11:30)
--- NOTE | 2017-10-14 11:41 | Cardiology Consultation ---
Cardiology Consultation Date of Consultation: Oct 14, 2017 History of Present Illness Kalie Velasquez is a 57 year old female seen in cardiology consultation per the request of Dr Soto for evaluation of elevated troponin given her history of apical hypertrophic CM. The patient's primary electrical calibrator is Dr Bruno of our practice. I had seen her during a hospitalization in 12/2016 during which time she was treated for a fever due to a complex UTI. The patient is currently sedated with propofol and is on the ventilator. History of her presenting events is obtained from review of her chart. Apparently she presented to the emergency room yesterday with progressive confusion. This is been occurring over the last 1-2 weeks as well as abnormal motion in her arms and legs. The patient also had an apparent subjective fever , headache, sore throat, back pain, and some difficulty breathing. In the emergency room she was in distress and very uncomfortable was restless. She received IV lorazepam and benztropine subsequently became less responsive and was intubated for airway protection. Her FiO2 has been weaned to 30%, and her hemodynamics remain stable on ventilator support overnight. Mild elevation in her troponin was noted on presentation of 0.120 which is trended down to 0.079 ng/ml. EKG reveals sinus rhythm with LVH, and transient mild ST depression was noted in the high lateral leads I and aVL which has resolved on repeat EKG this morning. Her influenza screen has been negative. CT of the chest was consistent with moderate pulmonary edema and trace pleural effusions. History PAST MEDICAL HISTORY: 1. 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 2. Status post dual chamber [employer] AICD implanted for primary prevention of sudden cardiac in August 2015, 3. Labile hypertension. 4. Obesity. PAST SURGICAL HISTORY: 1. History of bowel perforation for which she had surgery including a colostomy and subsequent colostomy reversal. 2. AICD placement. 3. Appendectomy. 4. section. FAMILY HISTORY: Father with hypertrophic cardiomyopathy, suddenly at age 56. SOCIAL HISTORY: The patient is . She is a lifelong nonsmoker. Review Of Systems Comprehensive review of systems is unobtainable as the patient is sedated on the ventilator Allergies Coded Allergies: Adhesives (Unverified Allergy, Intermediate, blistering, 05/04/17) Sulfa Antibiotics (Verified Allergy, Intermediate, swelling, 05/04/17) Doxycycline (Verified Allergy, Unknown, UNKNOWN, 05/04/17) Penicillins (Verified Allergy, Unknown, ZOSYN = FLUSHED FASE, ITCHING, ) FLUSHED FACE, ITCHING TOLERATED PRIMAXIN 2013 ADMISSION Medications Reported Home Medications Medications Dose Route/Sig Max Daily Dose Days Date Category Prilosec (Omeprazole) 40 Mg Cap 40 Mg PO DAILY 10/13/17 Reported Vistaril (Hydroxyzine Pamoate) 25 Mg Cap 25 Mg PO HS 10/13/17 Reported Sertraline HCl 100 Mg Tab 150 Mg PO DAILY 10/13/17 Reported Imitrex (Sumatriptan Succinate) 25 Mg Tab 25 Mg PO PRN PRN 03/22/17 Reported Flovent Hfa (Fluticasone Propionate) 120 Puffs/5280 Mcg Aero 2 Puffs INH BID 30 03/22/17 Reported Toprol Xl (Metoprolol Succinate) 25 Mg Tabcr 25 Mg PO LUNCH 03/22/17 Reported Requip (Ropinirole Hydrochloride) 0.5 Mg Tab 0.5 Mg PO HS 03/22/17 Reported Lomotil (Diphenoxylate HCl/Atropine) Tab 1 Tab PO DIRECTED PRN 03/22/17 Reported Bentyl (Dicyclomine Hcl) 10 Mg Cap 10 Mg PO TID 03/22/17 Reported Gabapentin 300 Mg Cap 600 Mg PO TID 01/08/17 Reported Amitriptyline HCl 50 Mg Tab 50 Mg PO HS 01/08/17 Reported Duloxetine HCl 60 Mg Cap 60 Mg PO HS 01/08/17 Reported Trazodone (Trazodone HCl) 50 Mg Tab 100 Mg PO HS 01/08/17 Reported Aspirin Ec (Aspirin) 81 Mg Tab 81 Mg PO QAM 01/08/17 Reported Lorazepam 0.5 Mg Tab 0.5-1 Mg PO Q6H PRN 12/20/14 Reported Physical Exam Vital Signs (Last 8hrs): Last 8 Hrs Date Time Temp Pulse Resp B/P (MAP) Pulse Ox O2 Delivery O2 Flow Rate FiO2 10/14/17 11:00 78 16 136/74 (94) 100 Mechanical Ventilator 30 10/14/17 09:00 36.9 79 17 162/92 (115) 99 Mechanical Ventilator 30 10/14/17 08:00 36.9 80 16 113/66 (82) 99 Mechanical Ventilator 30 10/14/17 08:00 Mechanical Ventilator 30 10/14/17 08:00 30 10/14/17 07:25 30 10/14/17 06:02 82 123/99 (107) 95 10/14/17 06:00 82 98 10/14/17 05:50 30 10/14/17 05:02 78 16 150/103 (119) 99 10/14/17 05:00 76 16 99 10/14/17 04:28 30 10/14/17 04:28 100 Mechanical Ventilator 30 10/14/17 04:01 36.7 76 17 138/97 (111) 97 10/14/17 04:00 76 16 98 General Appearance: Sedated Head: Normocephalic Atraumatic. Eyes: PERRLA, EOMI, conjunctiva and sclera clear Neck: Supple. No carotid bruits noted. No JVD. No HJD. Respiratory: Breath sounds clear to auscultation bilaterally. No w/r/r. Cardiovascular: Reg rate and rhythm. S1 and S2 noted. No murmurs, rubs, gallops. PMI non displace. Abdomen: Normal bowel sounds, soft nontender. no abdominal bruits. Extremities: No edema, no clubbing or cyanosis. distal pulses 2/4 bilaterally. Data Last Resulted 10/14/17 05:49 Red Blood Count 4.37, Mean Corpuscular Volume 84.9, Mean Corpuscular Hemoglobin 28.4, Mean Corpuscular Hemoglobin Concent 33.4, Mean Platelet Volume 9.2, Neutrophils (%) (Auto) 90.7, Lymphocytes (%) (Auto) 4.6, Monocytes (%) (Auto) 4.4, Eosinophils (%) (Auto) 0.0, Basophils (%) (Auto) 0.1, Neutrophils # (Auto) 13.07, Lymphocytes # (Auto) 0.67, Monocytes # (Auto) 0.63, Eosinophils # (Auto) 0.00, Basophils # (Auto) 0.01 Last Resulted 10/14/17 05:49 Past 24 Hours Test 10/13/17 14:44 10/13/17 15:42 10/13/17 21:08 10/14/17 05:49 Range/Units Creatine Kinase MB 6.0 H 0.5-3.6 ng/ml Creatine Kinase MB Ratio 4.1 H 0-3.0 Total Creatine Kinase 148 104 64 26-192 U/L Prothromb Time International Ratio 1.0 0.9-1.1 Prothrombin Time 11.0 9.0-12.0 SECONDS Troponin I 0.120 *H 0.079 *H 0-0.045 ng/ml EKG: As outlined above Telemetry reviewed: Sinus rhythm Assessment & Plan Impression: 57-year-old female 1. Presented with progressive confusion, required ventilator support for airway protection 2. Chest CT findings of pulmonary edema, echocardiogram performed today reveals stable findings compared to December 2016 with asymmetric septal and apical hypertrophy, small left ventricular cavity due to the thickened myocardial cuellar, diastolic dysfunction with elevated filling pressure as assessed by Doppler exam. Plan: Agree with supportive care for possible underlying viral respiratory infection versus superimposed bacterial infection. It appears that she has had a generalized illness, and his headache decompensation from a heart failure standpoint as well. She received a dose of 40 mg IV furosemide at 3:30 AM on 10/14/17, we need to watch her intake and output closely to maintain either equal or perhaps slightly negative intake and output. I do not think she is going to need vigorous diuresis to get her off the ventilator, and is better to be cautious as her condition does cause her to be preload dependent. She is not on a long-term daily diuretic because of this. Her mild elevation in troponin is likely due to myocardial strain from underlying LVH and stress of her underlying illness. I do not think systemic anticoagulation is necessary, would recommend continued DVT prophylaxis dose Lovenox. Complete echocardiogram findings are on the chart. Will follow the patient with you.
--- NOTE | 2017-10-14 17:00 | EMERGENCY ROOM VISIT NOTE ---
ED Visit Note First contact with patient: 13:35 Chief Complaint: Back pain. History of Present Illness: Ms. Velasquez is a 57-year-old white female who ambulates into the ED accompanied by her complaining of back pain. Patient has a history of chronic back pain with degenerative disc disease and bulging disks. Patient should be noted that the presents with a list of complaints that was penned by the patient's daughter who is her primary caregiver; reports she works a lot, these complaints including sharp pain on the left side of her head above her eyebrow, throat anterior pain, restlessness, difficulty breathing, numbness in the left leg. She also be noted that the reports patient recently had a visit with her primary care provider, Dr. Suad De León of the [facility] and reports multiple psychiatric medication changes. Currently patient complains of thoracic and lumbar back pain, diffuse abdominal pain and difficulty breathing. She describes her thoracic and lumbar back pain as a sharp sensation. Her pain has been ongoing for the last [address] it over all the vertebrae and throughout the paraspinous musculature. She rates her discomfort 9/10. Her pain is nonradiating. She has not identified any alleviating factors related to the pain. She reports she's been taking muscle relaxants without relief of her discomfort. She denies any associated symptoms. Additionally associated with her back pain she reports she was walking on giving, 2 days ago, and just fell. She reports she does not remember having any weakness of her legs or tripping on anything. When she fell she fell forward onto her chest and abdomen. She is unsure if there was a loss of consciousness. She does not remember striking her head. Since this occurred she reports she's been having some dizziness and a moderate headache. She also feels she has slurred speech related to her recent fall. Additionally she complains of sharp diffuse abdominal pain. It does seem more prominent on the right than the left. This pain is constant and does not wax and wane in intensity. She rates her discomfort 9/10. Her pain is nonradiating. Her pain worsens with palpation. She has not identified any alleviating factors related to her pain prior to arrival at the hospital. Associated with her pain she reports she has been nauseated but has not vomited. Additionally she reports she "cannot take a full breath." When I asked her to clarify if she felt short of breath or had difficulty breathing she could not distinguish. She reports this is been ongoing for the last couple of weeks. She has not identified any aggravating or alleviating factors related to this discomfort. She has not taken medications for this discomfort. Additionally she denies fevers, chills, sweats, skin eruptions, skin color changes, upper respiratory tract symptoms, cough, wheezing, palpitations, orthopnea, dependent edema, previous DVTs, chest pain, extended travel, recent surgery/inactivity. Review of Systems: As noted above in history of present illness. All body systems were reviewed and found to be negative as noted above. Past Medical History: As noted above and migraine headaches, chronic sinusitis , chronic rhinitis, station to dysfunction, irritable bowel syndrome, hypertension, perforated diverticulitis, sepsis, anxiety with depression, hydronephrosis, impaired glucose tolerance, type 2 diabetes, obstructive sleep apnea, pancreatic cyst, cardiac murmurs, status post cardiac defibrillator implantation, rectosigmoid resection, colostomy reversal and appendectomy Current Medications: Medications Dose Route/Sig Max Daily Dose Days Date Category Prilosec (Omeprazole) 40 Mg Cap 40 Mg PO DAILY 10/13/17 Reported Vistaril (Hydroxyzine Pamoate) 25 Mg Cap 25 Mg PO DAILY 10/13/17 Reported Sertraline HCl 100 Mg Tab 100 Mg PO BID 10/13/17 Reported Imitrex (Sumatriptan Succinate) 25 Mg Tab 25 Mg PO PRN PRN 03/22/17 Reported Flovent Hfa (Fluticasone Propionate) 120 Puffs/5280 Mcg Aero 2 Puffs INH BID 30 03/22/17 Reported Toprol Xl (Metoprolol Succinate) 25 Mg Tabcr 25 Mg PO LUNCH 03/22/17 Reported Requip (Ropinirole Hydrochloride) 0.5 Mg Tab 0.5 Mg PO HS 03/22/17 Reported Lomotil (Diphenoxylate HCl/Atropine) Tab 1 Tab PO DIRECTED PRN 03/22/17 Reported Bentyl (Dicyclomine Hcl) 10 Mg Cap 10 Mg PO TID 03/22/17 Reported Gabapentin 300 Mg Cap 600 Mg PO TID 01/08/17 Reported Amitriptyline HCl 50 Mg Tab 50 Mg PO HS 01/08/17 Reported Duloxetine HCl 60 Mg Cap 60 Mg PO HS 01/08/17 Reported Trazodone (Trazodone HCl) 50 Mg Tab 100 Mg PO HS 01/08/17 Reported Aspirin Ec (Aspirin) 81 Mg Tab 81 Mg PO QAM 01/08/17 Reported Lorazepam 0.5 Mg Tab 0.5-1 Mg PO Q6H PRN 12/20/14 Reported Allergies to Medications: Doxycycline, penicillin, sulfa Social History: Patient is not currently employed; she lives with her family and feels safe in her home environment; she denies tobacco use. Physical Examination: Vital Signs: GENERAL: 57-year-old female in moderate distress due to pain and symptoms, nontoxic-appearing, afebrile and hemodynamically stable. NEUROLOGICAL: Awake, alert and oriented to person and place. Answering questions appropriately and following commands. Normal gait. Good hand eye coordination. Cranial nerves II through XII grossly intact. All her extremities were flailing and twitching. SKIN: Warm, dry and pink. No soft tissue eruptions or trauma noted. HEENT: Atraumatic and normocephalic. PERRLA. Sclera white and conjunctiva pink. No drainage from naris. Oral cavity moist and pink. Pharynx is nonerythematous or edematous. Speech normal. No lymphadenopathy. Trachea midline. No jugular venous distention. BACK: No tenderness over the bony spine. No CVA tenderness. THORAX: Lungs sounds are clear to auscultation and equal bilaterally with symmetrical chest wall. No wheezing, rales or rhonchi. No crepitus, tenderness , subcutaneous air or deformities noted. HEART: Tachycardic rate and rhythm. No gallops, rubs or murmurs are appreciated. PMI was not displaced. ABDOMEN: Flat and soft with diffuse tenderness but moderate tenderness in the right upper quadrant and epigastric area. Positive bowel sounds in all quadrants. No guarding, rigidity or organomegaly. EXTREMITIES: Moves all extremities well on command and with purpose. All distal neurovascular statuses are intact and equal bilaterally. Mild clonic jerking and restlessness of all extremities. No calf tenderness or cords. ED Course: Patient is assessed as noted above. Patient's medication list was reviewed. Laboratory Testing: Test 10/13/17 14:44 10/13/17 15:38 10/13/17 15:42 10/13/17 16:15 Range/Units White Blood Count 17.15 4.8-10.8 K/uL Red Blood Count 4.93 4.2-5.4 M/uL Hemoglobin 13.9 12.0-16.0 g/dL Hematocrit 42.1 37-47 % Mean Corpuscular Volume 85.4 80-100 fL Mean Corpuscular Hemoglobin 28.2 25-34 pg Mean Corpuscular Hemoglobin Concent 33.0 32-36 g/dl Platelet Count 215 130-400 K/uL Mean Platelet Volume 9.4 7.4-10.4 fL Neutrophils (%) (Auto) 85.8 % Lymphocytes (%) (Auto) 7.3 % Monocytes (%) (Auto) 5.6 % Eosinophils (%) (Auto) 0.8 % Basophils (%) (Auto) 0.2 % Neutrophils # (Auto) 14.72 1.4-6.5 K/uL Lymphocytes # (Auto) 1.25 1.2-3.4 K/uL Monocytes # (Auto) 0.96 0.11-0.59 K/uL Eosinophils # (Auto) 0.13 0-0.5 K/uL Basophils # (Auto) 0.04 0-0.2 K/uL RDW Standard Deviation 47.0 36.4-46.3 fL RDW Coefficient of Variation 15.4 11.5-14.5 % Immature Granulocyte % (Auto) 0.3 % Immature Granulocyte # (Auto) 0.05 0.00-0.02 K/uL Sodium Level 142 136-145 mmol/L Potassium Level 4.1 3.5-5.1 mmol/L Chloride Level 104 98-107 mmol/L Carbon Dioxide Level 25 21-32 mmol/L Anion Gap 13.0 3-11 mmol/L Blood Urea Nitrogen 17 7-18 mg/dl Creatinine 1.19 0.60-1.20 mg/dl Est Creatinine Clear Calc Drug Dose 46.8 ml/min Estimated GFR () 57.9 Estimated GFR (Non- 49.9 BUN/Creatinine Ratio 14.2 10-20 Random Glucose 153 70-99 mg/dl Calcium Level 9.4 8.5-10.1 mg/dl Total Creatine Kinase 148 26-192 U/L Creatine Kinase MB 6.0 0.5-3.6 ng/ml Creatine Kinase MB Ratio 4.1 0-3.0 Lipase 119 73-393 U/L Bedside Glucose 225 70-90 mg/dl Urine Color YELLOW Urine Appearance CLEAR CLEAR Urine pH 6.0 4.5-7.5 Urine Specific [place] 1.018 1.000-1.030 Urine Protein 3+ NEG Urine Glucose (UA) NEG NEG Urine Ketones NEG NEG Urine Occult Blood TRACE NEG Urine Nitrite NEG NEG Urine Bilirubin NEG NEG Urine Urobilinogen NEG NEG Urine Leukocyte Esterase NEG NEG Urine WBC (Auto) 1-5 0-5 /hpf Urine RBC (Auto) 0-4 0-4 /hpf Urine Hyaline Casts (Auto) 1-5 0-5 /lpf Urine Epithelial Cells (Auto) 10-20 0-5 /lpf Urine Bacteria (Auto) NEG NEG Urine Opiates Screen NEG NEG Urine Methadone, Qualitative NEG NEG Urine Barbiturates NEG NEG Urine Phencyclidine (PCP) Level NEG NEG Ur Amphetamine/Methamphetamine NEG NEG MDMA (Ecstasy) Screen NEG NEG Urine Benzodiazepines Screen NEG NEG Urine Cocaine Metabolite NEG NEG Urine Marijuana (THC) NEG NEG Test 10/13/17 16:50 10/13/17 16:52 10/13/17 17:19 Range/Units Bedside Troponin I 0.080 0-0.045 ng/ml Bedside Lactic Acid Venous 0.92 0.90-1.70 mmol/L Venous Blood pH 7.33 7.36-7.41 Venous Blood Partial Pressure CO2 45 38.0-50.0 mmHg Venous Blood Partial Pressure O2 54 mmHg Venous Blood HCO3 23 mmol/L Venous Blood Oxygen Saturation 83.5 % Venous Blood Base Excess -3.0 mEq/L Blood Culture: Pending Noncontrast Head CT: Was reviewed by myself and read by the radiologist showing a moderately compromised study due to motion artifact but no acute intracranial findings. Lumbar Spine CT: Was reviewed by myself and read by the radiologist showing a mildly compromised study due to motion artifact but no acute lumbar fractures or subluxations. Multiple multilevel degenerative disc disease and facet arthrosis. Thoracic Spine CT: Was reviewed by myself and read by the radiologist showing no acute thoracic spine fractures or subluxations, mild multilevel degenerative disc changes with small central disc protrusion at T9-T10 and moderate pulmonary edema. Chest CTA: Was reviewed by myself and read by the radiologist showing no focal pulmonary emboli, findings consistent with moderate pulmonary edema and trace bilateral pleural effusions, dependent airspace opacities within the lung which favor atelectasis, moderate cardiomegaly with left ventricular hypertrophy. 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 Hydration was initiated with normal saline and patient received 1 mg of Ativan IV for her symptoms. I was urgently called to the patient's room after she had her head, lumbar and thoracic spine CT and was told that she was hypoxic and had altered level of consciousness. Patient's case was quickly reviewed with my attending Dr. Jennings and we both assessed the patient together. Over the next hour both Dr. Jennings and Dr. Eubanks did multiple medical procedures included rapid sequence intubation and central line insertion; please see their notes and orders for these procedures. Patient was given 2 g of ceftriaxone IV for possible infectious causes of her symptoms and she was given 10 mg of Decadron IV for her symptoms. Patient's case was consulted with the [facility] for medical observation/admission. Patient's was educated about today's findings. Clinical Impression: Hypoxia. Altered mental status. Decision-Making: Initially my differential diagnosis I considered intracranial bleed, cerebral swelling, coronary syndrome, sepsis, medication reaction and other causes. Disposition and Plan: Patient be brought in the hospital by Dr. Christianson, [facility], see his notes and orders for final disposition and plan.
[2017-10-14] MEDS ORDERED: MIDAZOLAM 125MG/250ML D5W IV ONE (19:07)
[2017-10-14] MEDS ORDERED: FENTANYL CITRATE 1250MCG/250ML NSS ONE (19:09)
[2017-10-14] MEDS ORDERED: FENTANYL 1250MCG/250ML NSS 250 ML IV PRN (19:52)
[2017-10-14] MEDS ORDERED: MIDAZOLAM 125MG/250ML D5W 250 ML IV PRN (19:52)
[2017-10-14] MEDS: METOPROLOL TARTRATE 25 MG TAB OG SCH (20:45)
--- NOTE | 2017-10-14 22:04 | Critical Care Progress Note ---
Critical Care Progress Note Date of Service Oct 14, 2017. ICU Day ICU Day Number: [address] Soto Subjective Patient intubated and sedated. Patient came ICU positive during spontaneous awakening trial, they'll spontaneous breathing trial secondary to agitation and tachypnea with RSBI greater than 110 Objective Neuro: Pupils equal round reactive to light and accommodation HEENT: Endotracheal tube present CVS: S1-S2 regular rate and rhythm Abdomen: Soft nondistended no organomegaly Groin: There is a 1 cm laceration/skin tear consistent with prior femoral line placement attempts in the emergency department Current SOFA Score SOFA Score Response (Comments) Value PaO2/FiO2 (mmHg) < 300 2 Platelets (x10) > 150 0 Bilirubin (mg/dL) < 1.2 0 [place] Coma Score 6 - 9 3 Level of Hypotension No Hypotension 0 Creatinine (mg/dL) < 1.2 0 Total 5 Assessment & Plan (1) Elevated troponin (2) Transaminitis (3) Acute respiratory failure (4) HOCM (hypertrophic obstructive cardiomyopathy) (5) Hypertension (6) Diabetes mellitus, type 2 (7) Altered mental status (8) Hydronephrosis of right kidney Reason Critically Ill: 57-year-old female with acute encephalopathy requiring intubation for impending respiratory failure PLAN: Neuro: Acute encephalopathy * Polypharmacy likely contributing * No evidence of meningitis Resp: On minimal vent settings CV: History of hypertrophic cardiomyopathy Echo reviewed Reviewed cardiology recommendations Fluids/Renal: Goal to be even to negative ID: No evidence of occult infection at this time GI/Nutrition: * Starting tube feeds, fiber source to goal of 45 Heme: Lovenox for DVT prophylaxis Endocrine: Diabetes type 2 Patient has significant polypharmacy with multiple medications that can have anticholinergic effects. At this point I have discontinued all nonessential medications. Discussed the case with the hospitalist service as well as the patient's I have personally spent 50 minutes of critical care time in the direct management of this patient. This is a life/limb threatening event. This includes time spent evaluating patient, direct bedside care, chart review, placing orders, interpretation of diagnostic studies, discussion with consultants, patient, and family members, as well as other required patient management activities. This time is exclusive of all separately billable procedures, and teaching time and separate from and in addition to any other critical care service time. Consults & Procedures Consultants: Cardiology: Dr. Adams Wound care Critical care services Procedures: Intubation 10/13/2017 Data Medications: Current Inpatient Medications Medications (Trade) Dose Ordered Sig/Nessa Route Start Time Stop Time Status Last Admin Dose Admin Ioversol (Optiray 320) 100 ml UD PRN IV 10/13/17 16:00 10/17/17 15:59 Pantoprazole Sodium 40 mg/ Syringe 10 ml @ 5 mls/min DAILY IV 10/14/17 09:00 11/13/17 08:59 10/14/17 08:43 5 MLS/MIN Midazolam HCl (Versed Inj) 2 mg Q1H PRN IV 10/13/17 19:45 11/12/17 19:44 10/14/17 00:02 2 MG Fentanyl Citrate (Fentanyl Inj) 50 mcg Q1H PRN IV 10/13/17 19:45 10/27/17 19:44 10/14/17 10:04 50 MCG Propofol (Diprivan Iv Emulsion 100ml Vial) 1 dose UD PRN IV 10/13/17 20:17 10/16/17 20:16 10/14/17 17:46 1 DOSE Enoxaparin Sodium (Lovenox Inj) 40 mg QAM SQ 10/14/17 09:00 11/13/17 08:59 10/14/17 08:42 40 MG Metoprolol Tartrate (Lopressor Tab) 25 mg BID OG 10/14/17 21:00 11/13/17 20:59 10/14/17 20:45 25 MG Aspirin (Aspirin Chew) 81 mg DAILY NG 10/15/17 09:00 11/14/17 08:59 Insulin Glargine (Lantus Solostar Pen) 20 units HS SC 10/14/17 10:00 11/13/17 09:59 10/14/17 10:12 20 UNITS Ipratropium [place] (Atrovent 0.02% 0.5MG/2.5ML Neb) 0.5 mg Q4H PRN INH 10/14/17 09:30 11/13/17 09:29 Levalbuterol (Xopenex 1.25MG/ 0.5ML Neb) 1.25 mg Q4H PRN INH 10/14/17 09:30 11/13/17 09:29 Enteral Nutritional Formula (Fibersource Hn) 1,000 ml UD PRN OG 10/14/17 11:30 11/13/17 11:29 Midazolam HCl 250 ml @ 0 mls/hr Q0M PRN IV 10/14/17 19:52 11/13/17 19:51 Fentanyl Citrate 250 ml @ 0 mls/hr Q0M PRN IV 10/14/17 19:52 10/28/17 19:51 I & O: 24-Hour Column 10/15/17 08:00 Intake Total 161 ml Output Total 400 ml Balance -239 ml Vital Signs: Date Time Temp Pulse Resp B/P (MAP) Pulse Ox O2 Delivery O2 Flow Rate FiO2 10/14/17 18:15 30 10/14/17 18:00 88 16 133/70 (91) 98 Mechanical Ventilator 30 10/14/17 16:00 98 Mechanical Ventilator 10/14/17 16:00 84 16 122/80 (94) 97 Mechanical Ventilator 30 10/14/17 16:00 30 10/14/17 14:00 36.6 81 16 130/76 (94) 97 Mechanical Ventilator 30 10/14/17 13:50 30 10/14/17 12:00 99 Mechanical Ventilator 10/14/17 12:00 30 10/14/17 11:32 30 10/14/17 11:00 78 16 136/74 (94) 100 Mechanical Ventilator 30 10/14/17 09:00 36.9 79 17 162/92 (115) 99 Mechanical Ventilator 30 10/14/17 08:00 36.9 80 16 113/66 (82) 99 Mechanical Ventilator 30 10/14/17 08:00 Mechanical Ventilator 30 10/14/17 08:00 30 10/14/17 07:25 30 10/14/17 06:02 82 123/99 (107) 95 10/14/17 06:00 82 98 10/14/17 05:50 30 10/14/17 05:02 78 16 150/103 (119) 99 10/14/17 05:00 76 16 99 10/14/17 04:28 30 10/14/17 04:28 100 Mechanical Ventilator 30 10/14/17 04:01 36.7 76 17 138/97 (111) 97 10/14/17 04:00 76 16 98 10/14/17 03:01 76 16 156/88 (110) 98 10/14/17 03:00 75 16 98 10/14/17 02:35 30 10/14/17 02:01 75 16 148/87 (107) 97 10/14/17 02:00 75 16 97 10/14/17 01:01 75 16 144/73 (96) 96 10/14/17 01:01 75 16 144/73 (96) 96 10/14/17 01:00 75 16 96 10/14/17 01:00 75 16 96 10/14/17 00:12 77 16 140/85 (103) 96 10/14/17 00:12 37.0 77 16 140/85 (103) 96 10/14/17 00:02 77 16 163/102 (122) 96 10/14/17 00:00 30 10/14/17 00:00 100 Mechanical Ventilator 30 10/14/17 00:00 78 16 96 10/14/17 00:00 78 16 96 10/13/17 23:50 30 10/13/17 23:00 76 16 97 10/13/17 22:18 75 16 145/99 (114) 96 10/13/17 22:01 75 16 145/99 (114) 96 10/13/17 22:00 75 16 96 Laboratory Results: Last 24 Hours Test 10/14/17 00:17 10/14/17 00:20 10/14/17 05:49 10/14/17 05:53 Sodium Level 137 mmol/L 139 mmol/L Potassium Level 3.8 mmol/L 3.4 mmol/L Chloride Level 106 mmol/L 103 mmol/L Carbon Dioxide Level 22 mmol/L 25 mmol/L Anion Gap 9.0 mmol/L 11.0 mmol/L Blood Urea Nitrogen 13 mg/dl 14 mg/dl Creatinine 0.84 mg/dl 0.91 mg/dl Est Creatinine Clear Calc Drug Dose 68.9 ml/min 63.6 ml/min Estimated GFR () 88.2 80.0 Estimated GFR (Non- 76.1 69.1 BUN/Creatinine Ratio 15.9 15.7 Random Glucose 191 mg/dl 175 mg/dl Calcium Level 8.0 mg/dl 8.6 mg/dl Bedside Glucose 180 mg/dl 169 mg/dl White Blood Count 14.41 K/uL Red Blood Count 4.37 M/uL Hemoglobin 12.4 g/dL Hematocrit 37.1 % Mean Corpuscular Volume 84.9 fL Mean Corpuscular Hemoglobin 28.4 pg Mean Corpuscular Hemoglobin Concent 33.4 g/dl Platelet Count 162 K/uL Mean Platelet Volume 9.2 fL Neutrophils (%) (Auto) 90.7 % Lymphocytes (%) (Auto) 4.6 % Monocytes (%) (Auto) 4.4 % Eosinophils (%) (Auto) 0.0 % Basophils (%) (Auto) 0.1 % Neutrophils # (Auto) 13.07 K/uL Lymphocytes # (Auto) 0.67 K/uL Monocytes # (Auto) 0.63 K/uL Eosinophils # (Auto) 0.00 K/uL Basophils # (Auto) 0.01 K/uL RDW Standard Deviation 46.8 fL RDW Coefficient of Variation 15.1 % Immature Granulocyte % (Auto) 0.2 % Immature Granulocyte # (Auto) 0.03 K/uL Lactic Acid Level 1.1 mmol/L Phosphorus Level 2.8 mg/dl Magnesium Level 2.1 mg/dl Total Bilirubin 0.8 mg/dl Direct Bilirubin 0.4 mg/dl Aspartate Amino Transf (AST/SGOT) 33 U/L Alanine Aminotransferase (ALT/SGPT) 51 U/L Alkaline Phosphatase 129 U/L Lactate Dehydrogenase 259 U/L Total Creatine Kinase 64 U/L Troponin I 0.079 ng/ml Total Protein 6.7 gm/dl Albumin 3.3 gm/dl Test 10/14/17 06:31 10/14/17 12:42 Blood Gas Sample Site R Radial Bedside Blood Gas pH (LAB) 7.44 Bedside Blood Gas pCO2 (LAB) 34 mmHg Bedside Blood Gas pO2 (LAB) 87 mmHg Bedside Blood Gas HCO3 (LAB) 24 meq/L Bedside Blood Gas Total CO2 25 mEq/l Bedside Blood Gas Base Excess (LAB) -1.0 meq/L Bedside Blood Gas O2 Saturation 97.0 % Rambo Test Pass Oxygen Delivery Device Ventilator Bedside Oxygen Rate (breaths/min) 16 Blood Gas Minute Ventilation 7.8 Bedside FiO2 30 % Blood Gas Tidal Volume 500 Blood Gas PEEP 5 Troponin I 0.101 ng/ml
[2017-10-15] VITALS (22 sets, daily range): BP systolic 107–125; BP diastolic 54–72; PULSE 82–96; TEMP 36.6–37.4; O2SAT 93–100
[2017-10-15 05:50] LABS: HEMATOCRIT 33.5 % (37-47); MEAN CELL VOLUME 85.5 fL (80-100); MEAN CORPUSCULAR HEMOGLOBIN 28.1 pg (25-34); MEAN CORPUSCULAR HGB CONC 32.8 g/dl (32-36); MEAN PLATELET VOLUME 9.3 fL (7.4-10.4); PLATELET COUNT 131 K/uL (130-400); RED BLOOD COUNT 3.92 M/uL (4.2-5.4); WHITE BLOOD COUNT 11.94 K/uL (4.8-10.8)
[2017-10-15 06:13] LABS: ISTAT ALLEN TEST Pass; ISTAT ARTERIAL BLOOD GAS HCO3 23 meq/L (19-24); ISTAT ARTERIAL BLOOD GAS PCO2 33 mmHg (35-46); ISTAT ARTERIAL BLOOD GAS PO2 79 mmHg (80-95); ISTAT ARTERIAL BLOOD GAS pH 7.46 (7.35-7.45); ISTAT CARBON DIOXIDE 24 mEq/l (24-31); ISTAT DELIVERY SYSTEM Ventilator; ISTAT FIO2 30 %; ISTAT PEEP 5; ISTAT RATE 16; ISTAT SITE R Radial; VE 7.6; Vt 500
[2017-10-15 06:19] LABS: BUN/CREATININE RATIO 21.3 (10-20); CALCIUM 8.2 mg/dl (8.5-10.1); CREATININE 1.04 mg/dl (0.60-1.20); MAGNESIUM 2.2 mg/dl (1.8-2.4); PHOSPHORUS 2.5 mg/dl (2.5-4.9); POTASSIUM 3.5 mmol/L (3.5-5.1)
--- NOTE | 2017-10-15 07:16 | DIAGNOSTIC IMAGING REPORT ---
SINGLE VIEW CHEST CLINICAL HISTORY: Respiratory failure. FINDINGS: An AP, portable, upright chest radiograph is compared to study dated 10/14/2017 and correlated with chest CT dated 10/13/2017. The examination is severely degraded by portable technique and patient rotation. Endotracheal and enteric tubes are unchanged in position. A cardiac AICD is again noted. The heart is enlarged and there is atherosclerotic calcification of the thoracic aorta. The pulmonary vasculature is noncongested. There are low lung volumes, with chronic elevation of the right hemidiaphragm and bibasilar opacities. No large pleural effusion or pneumothorax is seen. The skeletal structures are osteopenic. The bony thorax is grossly intact. IMPRESSION: 1. Stable lines and tubes. 2. Cardiomegaly and AICD. There is no radiographic evidence of congestive failure. 3. Low lung volumes with bibasilar opacities. This likely represents atelectasis. Electronically signed by: Jorge Avila M.D. 10/15/2017 7:14 AM Dictated Date/Time: 10/15/2017 7:12 AM
--- NOTE | 2017-10-15 08:08 | Progress Note ---
Medicine Progress Note Date & Time of Visit: Oct 15, 2017 at 07:35 . Subjective Remains intubated. Failed weaning trial. Sedated. Unable to respond to questions. . Objective Last 8 Hrs Date Time Temp Pulse Resp B/P (MAP) Pulse Ox O2 Delivery O2 Flow Rate FiO2 10/15/17 07:03 30 10/15/17 06:01 87 16 117/72 (87) 99 10/15/17 06:00 90 16 99 10/15/17 05:01 88 16 111/61 (78) 100 10/15/17 05:00 88 16 100 10/15/17 04:01 37.2 83 16 114/60 (78) 98 10/15/17 04:00 30 10/15/17 04:00 99 Mechanical Ventilator 30 10/15/17 04:00 85 16 93 10/15/17 04:00 30 10/15/17 03:01 90 120/68 (85) 99 10/15/17 03:00 89 99 10/15/17 02:01 88 16 120/70 (87) 98 10/15/17 02:00 86 16 98 10/15/17 01:01 86 16 119/70 (86) 99 10/15/17 01:00 86 16 99 10/15/17 00:48 30 10/15/17 00:01 83 16 125/70 (88) 100 10/15/17 00:00 37.4 83 16 100 10/15/17 00:00 30 10/15/17 00:00 99 Mechanical Ventilator 30 Physical Exam: General- appears to be comfortable Eyes- anicteric ENT- oral endotracheal tube; oral gastric tube Neck- supple; left IJ catheter Lungs- equal breath sounds; clear to auscultation Heart- RRR, II/ systolic murmur at base Abdomen- quiet BS, soft, nontender Extremities- trace pretibial edema Neuro- sedated; pupils 2 mm, reactive; responds to stimuli, but does not follow commands Skin- warm & dry . Laboratory Results: Last 24 Hours Test 10/14/17 12:42 10/14/17 23:48 10/15/17 05:39 10/15/17 05:45 Troponin I 0.101 ng/ml Bedside Glucose 136 mg/dl 169 mg/dl White Blood Count 11.94 K/uL Red Blood Count 3.92 M/uL Hemoglobin 11.0 g/dL Hematocrit 33.5 % Mean Corpuscular Volume 85.5 fL Mean Corpuscular Hemoglobin 28.1 pg Mean Corpuscular Hemoglobin Concent 32.8 g/dl RDW Standard Deviation 48.4 fL RDW Coefficient of Variation 15.8 % Platelet Count 131 K/uL Mean Platelet Volume 9.3 fL Sodium Level 137 mmol/L Potassium Level 3.5 mmol/L Chloride Level 104 mmol/L Carbon Dioxide Level 25 mmol/L Anion Gap 8.0 mmol/L Blood Urea Nitrogen 22 mg/dl Creatinine 1.04 mg/dl Est Creatinine Clear Calc Drug Dose 51.0 ml/min Estimated GFR () 68.1 Estimated GFR (Non- 58.8 BUN/Creatinine Ratio 21.3 Random Glucose 180 mg/dl Calcium Level 8.2 mg/dl Phosphorus Level 2.5 mg/dl Magnesium Level 2.2 mg/dl Test 10/15/17 05:59 Blood Gas Sample Site R Radial Bedside Blood Gas pH (LAB) 7.46 Bedside Blood Gas pCO2 (LAB) 33 mmHg Bedside Blood Gas pO2 (LAB) 79 mmHg Bedside Blood Gas HCO3 (LAB) 23 meq/L Bedside Blood Gas Total CO2 24 mEq/l Bedside Blood Gas Base Excess (LAB) -1.0 meq/L Bedside Blood Gas O2 Saturation 96.0 % Rambo Test Pass Oxygen Delivery Device Ventilator Bedside Oxygen Rate (breaths/min) 16 Blood Gas Minute Ventilation 7.6 Bedside FiO2 30 % Blood Gas Tidal Volume 500 Blood Gas PEEP 5 Assessment & Plan ALTERED MENTAL STATUS Patient presented to ED with several day history of progressive confusion associated with jerking of upper and lower extremities. Recent medication changes included discontinuation of sertraline and addition of ropinirole for restless legs. Possible respiratory tract infection with perceived fever, pharyngitis, dyspnea. Also complained of a headache to her daughter. Head CT negative for apparent acute infarct, bleed, mass, etc. Leukocytosis noted. Consider encephalopathy secondary to sepsis, although source not apparent from initial evaluation in ED. LP performed by ED physician- no WBC's; RBC's 172 tube # 1 --> 1 tube # 4; glucose 87, protein 53. EEG pending. Taking several medications with anticholinergic properties (amitriptyline, dicyclomine, diphenoxylate / atropine, hydroxyzine, trazodone). Consider encephalopathy secondary to medications. LEUKOCYTOSIS WBC 17,150 at time of admission. Afebrile. Afebrile in ED. CT of chest demonstrated bibasilar densities, atelectasis versus infiltrate ( atelectasis felt to be most likely per Radiology). No acute findings on CT of abdomen and pelvis. Urinalysis essentially negative. LP as noted above. 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 Blood cultures obtained in ED and patient received a dose of ceftriaxone. Afebrile today. WBC 17,000 --> --> 11,940. Blood and CSF cultures remain negative. Follow pending cultures. Monitor for signs/symptoms of specific infection. ENDOTRACHEAL INTUBATION / MECHANICAL VENTILATION Intubated in ED for airway protection. Failed weaning trial. Management per Critical Care Medicine. HYPERTROPHIC CARDIOMYOPATHY Serum troponin 0.12 --> 0.079. EKG this morning shows normal sinus rhythm at 80/minute, LVH, no acute ST or T- wave abnormalities. 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 Elevated troponin most likely nonspecific elevation due to acute illness and not due to acute coronary syndrome. Cardiology consulted. Hemodynamically stable. Continue metoprolol. HYPERTENSION Hemodynamically stable. Continue metoprolol. DM TYPE 2 Managed with metformin in the past, but no longer taking it. Check Hgb A1C. Random glucose 153 in ED. Glucose this morning 169. Follow blood sugars and manage per protocol. GI / NUTRITION Pantoprazole for GI prophylaxis. Enteral feedings- Fibersource via GT. DEPRESSION / CHRONIC PAIN / RESTLESS LEGS Most home meds on hold. Was tapering sertraline; consider restarting when neuro status improves to avoid withdrawal. VTE PROPHYLAXIS No anticoagulants initially due to LP. SCD's --> enoxaparin. DISPOSITION Critically ill. Admit to ICU. Discharge disposition to be determined. May need skilled care or rehab. Family Medicine follow-up with Dr. Suad De León. . Current Inpatient Medications: Current Inpatient Medications Medications (Trade) Dose Ordered Sig/Nessa Route Start Time Stop Time Status Last Admin Dose Admin Ioversol (Optiray 320) 100 ml UD PRN IV 10/13/17 16:00 10/17/17 15:59 Pantoprazole Sodium 40 mg/ Syringe 10 ml @ 5 mls/min DAILY IV 10/14/17 09:00 11/13/17 08:59 10/14/17 08:43 5 MLS/MIN Midazolam HCl (Versed Inj) 2 mg Q1H PRN IV 10/13/17 19:45 11/12/17 19:44 10/14/17 00:02 2 MG Fentanyl Citrate (Fentanyl Inj) 50 mcg Q1H PRN IV 10/13/17 19:45 10/27/17 19:44 10/14/17 10:04 50 MCG Propofol (Diprivan Iv Emulsion 100ml Vial) 1 dose UD PRN IV 10/13/17 20:17 10/16/17 20:16 10/14/17 17:46 1 DOSE Enoxaparin Sodium (Lovenox Inj) 40 mg QAM SQ 10/14/17 09:00 11/13/17 08:59 10/14/17 08:42 40 MG Metoprolol Tartrate (Lopressor Tab) 25 mg BID OG 10/14/17 21:00 11/13/17 20:59 10/14/17 20:45 25 MG Aspirin (Aspirin Chew) 81 mg DAILY NG 10/15/17 09:00 11/14/17 08:59 Insulin Glargine (Lantus Solostar Pen) 20 units HS SC 10/14/17 10:00 11/13/17 09:59 10/14/17 10:12 20 UNITS Ipratropium [place] (Atrovent 0.02% 0.5MG/2.5ML Neb) 0.5 mg Q4H PRN INH 10/14/17 09:30 11/13/17 09:29 Levalbuterol (Xopenex 1.25MG/ 0.5ML Neb) 1.25 mg Q4H PRN INH 10/14/17 09:30 11/13/17 09:29 Enteral Nutritional Formula (Fibersource Hn) 1,000 ml UD PRN OG 10/14/17 11:30 11/13/17 11:29 10/14/17 23:49 1,000 ML Midazolam HCl 250 ml @ 0 mls/hr Q0M PRN IV 10/14/17 19:52 11/13/17 19:51 Fentanyl Citrate 250 ml @ 0 mls/hr Q0M PRN IV 10/14/17 19:52 12/10/17 19:51 Heparin Sodium (Porcine) (Heparin 10 Unit/ ml 5 ml Flush) 5 ml PRN PRN FLUSH 10/14/17 23:45 11/13/17 23:44
[2017-10-15 08:10] LABS: ESTIMATED AVERAGE GLUCOSE 148 mg/dl; HA1C FLAG Normal (Normal)
[2017-10-15] MEDS: METOPROLOL TARTRATE 25 MG TAB OG SCH ×2 (10:47→21:27)
[2017-10-15] MEDS: ASPIRIN 81 MG CHEW NG SCH (10:47)
[2017-10-15] MEDS: ENOXAPARIN 40 MG/0.4 ML SYR SQ SCH (10:47)
[2017-10-15] MEDS: PANTOprazole INJ 40 MG in SYRINGE 0 ML IV SCH (10:47)
[2017-10-15] MEDS ORDERED: NORMOSOL R 500 ML IV ONE (13:00)
--- NOTE | 2017-10-15 13:23 | Critical Care Progress Note ---
Critical Care Progress Note Date of Service Oct 15, 2017. ICU Day ICU Day Number: [address] Lagunas Subjective Weaning Trial was attempted this AM. Patient's HR began to rise and patient began kicking. She was subsequently placed back on the ventilator. Objective GENERAL: sedated, w/o distress EYE EXAM: normal conjunctiva, PERRL NECK: supple, no nuchal rigidity, no adenopathy, non-tender LUNGS: Clear to auscultation. Normal chest wall mechanics HEART: no murmurs, S1 normal and S2 normal ABDOMEN: abdomen soft, no organomegaly SKIN: Left groin wound from attempted line access, no purulent discharge, not actively bleeding UPPER EXTREMITIES: upper extremities are grossly normal. LOWER EXTREMITIES: No pitting edema. 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: Acute encephalopathy, Polypharmacy hold home Amitriptyline, Duloxetine, Gabapentin, Requip, Trazodone Resp: GCS: 3T Pupils: Pinpoint, reactive, Focal Signs: None Sedation/pain control: Versed, Fentanyl, Propofol currently, Switch to Start Precedex EEG/CT/MRI: EEG dated 10/15: Result: moderately diffusely abnormal during stuporous state , indicating evidence for a generalized nonspecific encephalopathy without lateralizing features and without associated potentially epileptogenic activity CT head dated 10/13: no acute intracranial abnormalities although technically limited study Restraints: Bilateral soft wrist Respiratory: Vent Settings: type AC, rate 16, tidal volume 500, PEEP 5, FiO2 30% Chest X-ray (10/15): Reviewed Result: Low lung volumes, bibasilar opacities, likely atelectasis HOB up 30 degrees: Yes Respiratory prophylaxis: Levalbuterol Cardiovascular: hypertrophic cardiomyopathy Given 500 ml Normosol bolus, Consider more fluids if no improvement CV drips: Remains off vasoactive medications Rhythm: Sinus Last EKG: NS, QTc 562 , Repeat EKG ECHO: Echo dated 10/14 : LV systolic fx Normal, LV EF 60-65%, NO regional wall or valvular abnormalities Fluids/Renal: IV Fluids: Give 500 ML bolus Normosol Net Urine: reaching at least half mL per kilo per hour Guaman: Present GI/Nutrition: Feeding:NPO Prophylaxis: On Protonix Endocrine: Last 24 hour glucose: Ranging 175-180 Insulin protocol: Yes; Drip: No Hematology: Hemoglobin .5 DVT prophylaxis: Lovenox Skin/MSK: Skin wound Left groin from attempted catheter placement Wound care consult Infectious Disease/Immunology: Tmax: 37.4 Antimicrobials: None Cultures: Blood: No growth Resident Physician Supervision Note: I was present with during the history and exam. I discussed the case with the resident and agree with the findings and plan as documented in the note. Any exceptions or clarifications are listed here: Patient is a 57-year-old female who is transferred to the ICU intubated after concern for airway security secondary to altered mental status. There was concern for acute reaction to a new medication versus NMS verus Serotonin Syndrome. Providers in the ED have documented myotonic movements as well. Pt was intubated and sedated upon my examination. All reflexes appropriate and normal. Pt did not demonstrated pyrexia, hypertension, tachycardia, rigidity or clonus. Pt remains intubated and sedated over night. There is also concern for viral exposure and possible cardiac compromise secondary to elevated cardiac markers in the setting of recent cold like symptoms. PLAN: Neuro: * AMS: ? neuro malignant syndrome versus serotonin syndrome; Per chart with irregular movement by other providers in ED per chart; * Work up includes - LP with CSF demonstrated an elevated glucose of 87 and a total protein of 53.4 otherwise within normal limits; ? * Patient negative for alcohol and drug screens * CT Head Neg for acute intracranial process: cannot get MRI secondary to Defibrillator/Pacemaker. * Will obtain Neuro consult; Consider EEG in am; * c/w propofol infusion * Goal RASS -2 * Spontaneous awakening trial planned for morning Suspect polypharmacy playing a role given multiple Psych meds the patient is on; Resp: c/w vent support; not a weaning weaning given poor mental status; on AC 30%/ PEEP 5 --> 7.46/; CT angiography ruled out pulmonary emboli. on CXR Moderate pulmonary edema noted with trace bilateral pleural effusions * Procalcitonin 0.019, current chest x-ray demonstrates fluid overload No current indication of pneumonia or bacterial process; hold broad- spectrum antibiotics at this time off Abx at this time; CV: * Elevated cardiac markers as per cardiology due to stress; As per chart complained of chest pain and arm numbness * Continue to trend troponin * EKG repeated without significant findings of acute ischemia * BNP, CK-MB, LDH elevated: * ECHO with * Repeat EKG in AM * ECHO on 10/14/17 with apical variant of hypertrophic cardiomyopathy without left ventricular outflow tract obstruction or mitral regurgitation, asymmetric left ventricular hypertrophy, asymmetric hypertrophy involves the intraventricular septum left ventricular apex, left ventricular systolic function is normal with an EF of 60-65%. No left ventricular wall motion abnormality is noted. Diastolic dysfunction grade 2 without significant valvular heart disease. 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, no acute intraabdominal process; ID: * Pro calcitonin negative at 0.19; lactic acid negative at 0.92 * Blood cultures and she will spinal fluid cultures pending * Urinalysis unremarkable * Trend fever curve * Leukocytosis improving; * Patient does not appear to be septic or infectious from a bacterial standpoint , more likely ill secondary to possible viral component * off Abx for now; GI/Nutrition: * Nothing by mouth * Hypoalbuminemia; monitor likely acute phase reactant * Acute rise in LFTs: Continue to trend * CT abdomen demonstrates a stable 2.5 cm cystic lesion within the pancreatic head. A Gerard pouch as noted. No bowel obstruction. * GI Prophylaxis: Protonix in place Heme: * stable; DVT prophylaxis: on Lovenox; * Monitor H&H daily; No current signs of gross bleeding I have personally spent 35 minutes of critical care time in the direct management of this patient. This is a life/limb threatening event. This includes time spent evaluating patient, direct bedside care, chart review, placing orders, interpretation of diagnostic studies, discussion with consultants, patient, and family members, as well as other required patient management activities. This time is exclusive of all separately billable procedures, and teaching time and separate from and in addition to any other critical care service time. Documented By: Julian Lagunas Consults & Procedures Consultants: Cardiology: Dr. Adams Wound care Critical care services Procedures: Intubation 10/13/2017 Data Medications: Current Inpatient Medications Medications (Trade) Dose Ordered Sig/Nessa Route Start Time Stop Time Status Last Admin Dose Admin Ioversol (Optiray 320) 100 ml UD PRN IV 10/13/17 16:00 10/17/17 15:59 Pantoprazole Sodium 40 mg/ Syringe 10 ml @ 5 mls/min DAILY IV 10/14/17 09:00 11/13/17 08:59 10/15/17 10:47 5 MLS/MIN Midazolam HCl (Versed Inj) 2 mg Q1H PRN IV 10/13/17 19:45 11/12/17 19:44 10/14/17 00:02 2 MG Fentanyl Citrate (Fentanyl Inj) 50 mcg Q1H PRN IV 10/13/17 19:45 10/27/17 19:44 10/14/17 10:04 50 MCG Propofol (Diprivan Iv Emulsion 100ml Vial) 1 dose UD PRN IV 10/13/17 20:17 10/16/17 20:16 10/14/17 17:46 1 DOSE Enoxaparin Sodium (Lovenox Inj) 40 mg QAM SQ 10/14/17 09:00 11/13/17 08:59 10/15/17 10:47 40 MG Metoprolol Tartrate (Lopressor Tab) 25 mg BID OG 10/14/17 21:00 11/13/17 20:59 10/15/17 10:47 25 MG Aspirin (Aspirin Chew) 81 mg DAILY NG 10/15/17 09:00 11/14/17 08:59 10/15/17 10:47 81 MG Insulin Glargine (Lantus Solostar Pen) 20 units HS SC 10/14/17 10:00 11/13/17 09:59 10/14/17 10:12 20 UNITS Ipratropium [place] (Atrovent 0.02% 0.5MG/2.5ML Neb) 0.5 mg Q4H PRN INH 10/14/17 09:30 11/13/17 09:29 Levalbuterol (Xopenex 1.25MG/ 0.5ML Neb) 1.25 mg Q4H PRN INH 10/14/17 09:30 11/13/17 09:29 Enteral Nutritional Formula (Fibersource Hn) 1,000 ml UD PRN OG 10/14/17 11:30 11/13/17 11:29 10/14/17 23:49 1,000 ML Midazolam HCl 250 ml @ 0 mls/hr Q0M PRN IV 10/14/17 19:52 11/13/17 19:51 Fentanyl Citrate 250 ml @ 0 mls/hr Q0M PRN IV 10/14/17 19:52 10/28/17 19:51 Heparin Sodium (Porcine) (Heparin 10 Unit/ ml 5 ml Flush) 5 ml PRN PRN FLUSH 10/14/17 23:45 11/13/17 23:44 Parenteral Electrolyte Solution 500 ml @ 999 mls/hr Q31M ONCE IV 10/15/17 13:00 10/15/17 13:30 10/15/17 13:21 999 MLS/HR Vital Signs: Date Time Temp Pulse Resp B/P (MAP) Pulse Ox O2 Delivery O2 Flow Rate FiO2 10/15/17 10:00 89 16 10/15/17 08:00 99 Mechanical Ventilator 30 10/15/17 08:00 30 10/15/17 08:00 37.0 93 16 110/66 (81) 99 Mechanical Ventilator 10/15/17 07:30 30 10/15/17 07:03 30 10/15/17 06:01 87 16 117/72 (87) 99 10/15/17 06:00 90 16 99 10/15/17 05:01 88 16 111/61 (78) 100 10/15/17 05:00 88 16 100 10/15/17 04:01 37.2 83 16 114/60 (78) 98 10/15/17 04:00 30 10/15/17 04:00 99 Mechanical Ventilator 30 10/15/17 04:00 85 16 93 10/15/17 04:00 30 10/15/17 03:01 90 120/68 (85) 99 10/15/17 03:00 89 99 10/15/17 02:01 88 16 120/70 (87) 98 10/15/17 02:00 86 16 98 10/15/17 01:01 86 16 119/70 (86) 99 10/15/17 01:00 86 16 99 10/15/17 00:48 30 10/15/17 00:01 83 16 125/70 (88) 100 10/15/17 00:00 37.4 83 16 100 10/15/17 00:00 30 10/15/17 00:00 99 Mechanical Ventilator 30 10/14/17 23:01 85 16 131/75 (93) 99 10/14/17 23:00 87 16 99 10/14/17 22:01 88 16 137/74 (95) 100 10/14/17 22:00 87 16 99 10/14/17 21:30 30 10/14/17 21:01 91 16 111/71 (84) 99 10/14/17 21:00 90 16 99 10/14/17 20:01 37.4 96 16 121/79 (93) 99 10/14/17 20:00 30 10/14/17 20:00 94 16 99 10/14/17 20:00 99 Mechanical Ventilator 30 10/14/17 19:01 89 16 133/81 (98) 99 10/14/17 19:00 89 16 99 10/14/17 18:15 30 10/14/17 18:00 88 16 133/70 (91) 98 Mechanical Ventilator 30 10/14/17 16:00 98 Mechanical Ventilator 10/14/17 16:00 84 16 122/80 (94) 97 Mechanical Ventilator 30 10/14/17 16:00 30 10/14/17 14:00 36.6 81 16 130/76 (94) 97 Mechanical Ventilator 30 10/14/17 13:50 30 Laboratory Results: Last 24 Hours Test 10/14/17 23:48 10/15/17 05:39 10/15/17 05:45 10/15/17 05:59 Bedside Glucose 136 mg/dl 169 mg/dl White Blood Count 11.94 K/uL Red Blood Count 3.92 M/uL Hemoglobin 11.0 g/dL Hematocrit 33.5 % Mean Corpuscular Volume 85.5 fL Mean Corpuscular Hemoglobin 28.1 pg Mean Corpuscular Hemoglobin Concent 32.8 g/dl RDW Standard Deviation 48.4 fL RDW Coefficient of Variation 15.8 % Platelet Count 131 K/uL Mean Platelet Volume 9.3 fL Sodium Level 137 mmol/L Potassium Level 3.5 mmol/L Chloride Level 104 mmol/L Carbon Dioxide Level 25 mmol/L Anion Gap 8.0 mmol/L Blood Urea Nitrogen 22 mg/dl Creatinine 1.04 mg/dl Est Creatinine Clear Calc Drug Dose 51.0 ml/min Estimated GFR () 68.1 Estimated GFR (Non- 58.8 BUN/Creatinine Ratio 21.3 Random Glucose 180 mg/dl Calcium Level 8.2 mg/dl Phosphorus Level 2.5 mg/dl Magnesium Level 2.2 mg/dl Blood Gas Sample Site R Radial Bedside Blood Gas pH (LAB) 7.46 Bedside Blood Gas pCO2 (LAB) 33 mmHg Bedside Blood Gas pO2 (LAB) 79 mmHg Bedside Blood Gas HCO3 (LAB) 23 meq/L Bedside Blood Gas Total CO2 24 mEq/l Bedside Blood Gas Base Excess (LAB) -1.0 meq/L Bedside Blood Gas O2 Saturation 96.0 % Rambo Test Pass Oxygen Delivery Device Ventilator Bedside Oxygen Rate (breaths/min) 16 Blood Gas Minute Ventilation 7.6 Bedside FiO2 30 % Blood Gas Tidal Volume 500 Blood Gas PEEP 5 Resident Tracking Resident Involvement: Resident Care Provided Care Provided: Adult Hospital Medicine
--- NOTE | 2017-10-15 13:38 | ELECTROENCEPHALOGRAPH REPORT ---
For Dr. Christianson. CLINICAL DIAGNOSIS: Unresponsiveness of uncertain cause, question nonconvulsive seizures. EEG DIAGNOSIS: Mildly to moderately diffusely abnormal EEG during apparent clinical wakefulness. DESCRIPTION OF TRACING: This EEG was performed as a bedside recording with simultaneous video analysis of patient movement and behavior. Photic stimulation was performed. Hyperventilation was not. Drowsiness and light sleep were not recorded. The patient is on a ventilatory support system and is in the ICU. The tracing is relatively artifact-free. There were few or no muscle or movement artifacts of note. Under these conditions, there is evidence for a background rhythm in the upper theta range of about 7-8 Hz maximum frequency and of up to 30 microvolts of maximum amplitude which is maximum in the posterior head regions and bilaterally symmetrical. Polymorphic mid to lower frequency theta activity of modest voltage intermixed with isolated waveforms in the delta range is seen over the central and mid temporal regions without any further focal or regional predominance. Anterior head region maximum bilaterally symmetrical low voltage fast activity in the beta range is difficult to detect. Photic stimulation provokes a minimal driving response without a photoparoxysmal or photomyogenic component. At no time during the tracing is there evidence for potentially epileptogenic activity in the form of polyspike or spike wave bursts, focal sharp waves or focal spikes. INTERPRETATION: This EEG is mildly to moderately diffusely abnormal during this stuporous state, indicating evidence for a generalized nonspecific encephalopathy without lateralizing features and without associated potentially epileptogenic activity.
--- NOTE | 2017-10-15 16:00 | Cardiology Follow-Up ---
Subjective General Date of Service: Oct 15, 2017. Chief Complaint: follow up hypertrophic CM Pt evaluation today including: conversation w/ patient, physical exam History of Present Illness The patient is a 57 year old female seen in follow up. Pt remains sedated with lorazepam infusion on the ventilator. Wean attempt yesterday was unsuccessful. Telemetry reveals stable SR. Allergies Coded Allergies: Adhesives (Unverified Allergy, Intermediate, blistering, 05/04/17) Sulfa Antibiotics (Verified Allergy, Intermediate, swelling, 05/04/17) Doxycycline (Verified Allergy, Unknown, UNKNOWN, 05/04/17) Penicillins (Verified Allergy, Unknown, ZOSYN = FLUSHED FASE, ITCHING, ) FLUSHED FACE, ITCHING TOLERATED PRIMAXIN 2013 ADMISSION Social History Smoking Status: Never Smoker Hx Tobacco Use In Past Year?: No Hx Alcohol Use - Type And Amou: No Hx Substance Use - Type And Am: No Problem List Medical Problems: (1) Abdominal pain Status: Acute (2) Fever Status: Acute (3) LLQ abdominal pain Status: Acute (4) Substernal chest pain Status: Acute Physical Exam Vital Signs Last Vital Signs Documentation Date Time Temp Pulse Resp B/P (MAP) Pulse Ox O2 Delivery O2 Flow Rate FiO2 10/15/17 14:25 30 10/15/17 14:00 91 16 115/60 (78) 99 Mechanical Ventilator 10/15/17 12:00 36.6 10/13/17 15:33 15.0 Physical Exam Constitutional: Level of Distress: acutely ill Neck: supple Lungs: Auscultation: no wheezing, no rales/crackles Cardiovascular: Heart Auscultation: RRR, no murmurs Abdomen: Inspection & Palpation: soft, non-distended Extremities: no edema Neurologic: Gait & Station: pertinent finding (neuro exam limited as above ) Assessment and Plan Assessment and Plan Impression: 57-year-old female 1. Presented with progressive confusion, required ventilator support for airway protection 2. Chest CT findings of pulmonary edema, echocardiogram performed today reveals stable findings compared to December 2016 with asymmetric septal and apical hypertrophy, small left ventricular cavity due to the thickened myocardial cuellar, diastolic dysfunction with elevated filling pressure as assessed by Doppler exam. Plan: SBP has trended lower today , 88 mm Hg, with low urine outpt. Pt received 500 mg IVF bolus, with no improvement. I discussed case with his nurse and with Critical care. Although pt presented with pulmonary edema on chest CT given low BP and low UO, I think it is reasonable to give IVF for now, if becomes volume overloaded can diurese. Laboratory Results Last 24 Hours Test 10/14/17 23:48 10/15/17 05:39 10/15/17 05:45 10/15/17 05:59 Bedside Glucose 136 mg/dl 169 mg/dl White Blood Count 11.94 K/uL Red Blood Count 3.92 M/uL Hemoglobin 11.0 g/dL Hematocrit 33.5 % Mean Corpuscular Volume 85.5 fL Mean Corpuscular Hemoglobin 28.1 pg Mean Corpuscular Hemoglobin Concent 32.8 g/dl RDW Standard Deviation 48.4 fL RDW Coefficient of Variation 15.8 % Platelet Count 131 K/uL Mean Platelet Volume 9.3 fL Sodium Level 137 mmol/L Potassium Level 3.5 mmol/L Chloride Level 104 mmol/L Carbon Dioxide Level 25 mmol/L Anion Gap 8.0 mmol/L Blood Urea Nitrogen 22 mg/dl Creatinine 1.04 mg/dl Est Creatinine Clear Calc Drug Dose 51.0 ml/min Estimated GFR () 68.1 Estimated GFR (Non- 58.8 BUN/Creatinine Ratio 21.3 Random Glucose 180 mg/dl Calcium Level 8.2 mg/dl Phosphorus Level 2.5 mg/dl Magnesium Level 2.2 mg/dl Blood Gas Sample Site R Radial Bedside Blood Gas pH (LAB) 7.46 Bedside Blood Gas pCO2 (LAB) 33 mmHg Bedside Blood Gas pO2 (LAB) 79 mmHg Bedside Blood Gas HCO3 (LAB) 23 meq/L Bedside Blood Gas Total CO2 24 mEq/l Bedside Blood Gas Base Excess (LAB) -1.0 meq/L Bedside Blood Gas O2 Saturation 96.0 % Rambo Test Pass Oxygen Delivery Device Ventilator Bedside Oxygen Rate (breaths/min) 16 Blood Gas Minute Ventilation 7.6 Bedside FiO2 30 % Blood Gas Tidal Volume 500 Blood Gas PEEP 5
[2017-10-15] MEDS ORDERED: ETOMIDATE 2 MG/ML 20 ML VIAL IV ONE (16:02)
[2017-10-15] MEDS ORDERED: ROCURONIUM BROMIDE 10 MG/ML 10 ML VIAL IV ONE (16:02)
[2017-10-15] MEDS ORDERED: MIDAZOLAM HCL 5 MG/ML 2ML VIAL IV ONE (16:05)
[2017-10-15] MEDS ORDERED: NORMOSOL R 1,000 ML IV SCH (17:15)
[2017-10-15] MEDS: INSULIN GLARGINE SOLOSTAR 100 UNITS/ML 3 ML PEN SC SCH (21:32)
[2017-10-16] VITALS (30 sets, daily range): BP systolic 94–175; BP diastolic 50–129; PULSE 68–118; TEMP 36.5–37.3; O2SAT 86–100
[2017-10-16 06:21] LABS: HEMATOCRIT 31.5 % (37-47); MEAN CELL VOLUME 86.8 fL (80-100); MEAN CORPUSCULAR HEMOGLOBIN 28.4 pg (25-34); MEAN CORPUSCULAR HGB CONC 32.7 g/dl (32-36); MEAN PLATELET VOLUME 9.8 fL (7.4-10.4); PLATELET COUNT 140 K/uL (130-400); RED BLOOD COUNT 3.63 M/uL (4.2-5.4); WHITE BLOOD COUNT 9.49 K/uL (4.8-10.8)
[2017-10-16 06:44] LABS: ISTAT ALLEN TEST Pass; ISTAT ARTERIAL BLOOD GAS HCO3 27 meq/L (19-24); ISTAT ARTERIAL BLOOD GAS PCO2 38 mmHg (35-46); ISTAT ARTERIAL BLOOD GAS PO2 95 mmHg (80-95); ISTAT ARTERIAL BLOOD GAS pH 7.46 (7.35-7.45); ISTAT CARBON DIOXIDE 28 mEq/l (24-31); ISTAT DELIVERY SYSTEM Ventilator; ISTAT FIO2 30 %; ISTAT PEEP 5; ISTAT RATE 16; ISTAT SITE R Radial; VE 7.6; Vt 500
[2017-10-16 06:59] LABS: BUN/CREATININE RATIO 22.6 (10-20); CALCIUM 8.1 mg/dl (8.5-10.1); CREATININE 0.8 mg/dl (0.60-1.20); MAGNESIUM 2.5 mg/dl (1.8-2.4); POTASSIUM 3.6 mmol/L (3.5-5.1)
[2017-10-16 07:00] LABS: PHOSPHORUS 2.7 mg/dl (2.5-4.9)
[2017-10-16] MEDS: NORMOSOL R 500 ML IV SCH ×3 (07:46→08:27)
[2017-10-16] MEDS: ENOXAPARIN 40 MG/0.4 ML SYR SQ SCH (08:24)
[2017-10-16] MEDS: ASPIRIN 81 MG CHEW NG SCH (08:25)
[2017-10-16] MEDS: METOPROLOL TARTRATE 25 MG TAB OG SCH ×2 (08:25→22:34)
[2017-10-16] MEDS: PANTOprazole INJ 40 MG in SYRINGE 0 ML IV SCH (08:25)
--- NOTE | 2017-10-16 08:28 | DIAGNOSTIC IMAGING REPORT ---
CHEST ONE VIEW PORTABLE HISTORY: intubated COMPARISON: Chest 10/15/2017. FINDINGS: The endotracheal tube terminates 3.8 cm from the tisha. Left jugular central venous catheter terminates at the SVC/brachiocephalic junction. No pneumothorax. Nasogastric tube terminates below the diaphragm. The heart remains mildly enlarged. There is mild central pulmonary vascular congestion without overt edema. Trace bilateral pleural effusions. Bibasilar densities persist. IMPRESSION: 1. Satisfactory support line placement. 2. Mild pulmonary vascular congestion without overt edema. 3. Trace bilateral pleural effusions and bibasilar densities persist. Electronically signed by: Serg Arias M.D. 10/16/2017 8:27 AM Dictated Date/Time: 10/16/2017 8:26 AM
[2017-10-16] MEDS ORDERED: DexMEDEtomidine HCL IV 200 MCG in SODIUM CHLORIDE 0.9% 50ML 48 ML IV SCH (09:25)
[2017-10-16] MEDS ORDERED: RAPID SEQUENCE INDUCTION BAG ONE (09:25)
[2017-10-16] MEDS ORDERED: METOPROLOL TARTRATE 1 MG/ML VIAL IV STA (09:29)
[2017-10-16] MEDS ORDERED: LORAZEPAM 0.5 MG TAB PO PRN (09:30)
[2017-10-16] MEDS ORDERED: DexMEDEtomidine HCL IV 200 MCG in SODIUM CHLORIDE 0.9% 50ML 48 ML IV PRN (09:30)
[2017-10-16] MEDS ORDERED: LORAZEPAM 2 MG/ML 1 ML VIAL ONE (09:35)
[2017-10-16] MEDS ORDERED: RACEPINEPHRINE 2.25% NEBU SOLN 0.5 ML VIAL INH STA (09:42)
[2017-10-16] MEDS ORDERED: METHYLPREDNISOLONE 125 MG VIAL IV STA (09:43)
--- NOTE | 2017-10-16 10:54 | Critical Care Progress Note ---
Critical Care Progress Note Date of Service Oct 16, 2017. ICU Day ICU Day Number: [address] Lagunas Subjective No acute events overnight. During rounds this morning patient awakened and was actively moving. concern was present for self extubation. decision was made to extubate at 0945. Objective GENERAL: awake, mod. distress EYE EXAM: normal conjunctiva, PERRL NECK: supple, no nuchal rigidity, no adenopathy, non-tender LUNGS: Clear to auscultation. Normal chest wall mechanics HEART: no murmurs, S1 normal and S2 normal ABDOMEN: abdomen soft, no organomegaly SKIN: Left groin wound from attempted line access, no purulent discharge, not actively bleeding UPPER EXTREMITIES: upper extremities are grossly normal. LOWER EXTREMITIES: No pitting edema. 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 Patient was extubated 0945 after she became agitated restless off sedation Start PRN Ativan .5 mg q6 Start Precedex Restart home doses of Gabapentin, Sertraline. EEG dated 10/15: Result: moderately diffusely abnormal during stuporous state , indicating evidence for a generalized nonspecific encephalopathy without lateralizing features and without associated potentially epileptogenic activity CT head dated 10/13: no acute intracranial abnormalities although technically limited study Psychiatry consulted for psych polypharmacy Respiratory: s/p extubation, switched to humidified oxygen, then weaned to NC at 4L Chest X-ray (10/16): . Mild pulmonary vascular congestion without overt edema. Trace bilateral pleural effusions and bibasilar densities persist Given 145 mg Solu-medrol x1 Given Racemic Epi x1 Cardiovascular: hypertrophic cardiomyopathy BP controlled CV drips: Remains off vasoactive medications Rhythm: Sinus Last EKG: NS, QTc 487 ECHO: Echo dated 10/14 : LV systolic fx Normal, LV EF 60-65%, NO regional wall or valvular abnormalities Fluids/Renal: IV Fluids: from medications Net Urine: goal of at least half mL per kilo per hour Guaman: Present Continue to monitor GI/Nutrition: Feeding: Fiber source diet Prophylaxis: On Protonix NO Bowel movements Consider bowel regimen Endocrine: Last 24 hour glucose: Ranging 157-180 Insulin protocol: Yes; Drip: No Hematology: Hemoglobin .5 --> 10.3// DVT prophylaxis: Lovenox Skin/MSK: Skin wound Left groin from attempted catheter placement Wound care consulted Infectious Disease/Immunology: Tmax: 37.3 Antimicrobials: None Cultures: Blood: No growth MRSA neg CSF neg Resident Physician Supervision Note: I was present with Dr. Marie during the history and exam. I discussed the case with the resident and agree with the findings and plan as documented in the note. Briefly, Patient is a 57-year-old female s/p intubation due to altered mental status. Working diagnosis was thought to be - NMS verus Serotonin Syndrome. However, later thought to be due to Polypharmacy. Patient was extubated 10/16; PLAN: Neuro: * AMS: resolving; this am more appropriate off sedation, however for agitation placed on Precedex gtt and Ativan; * Work up includes - LP with CSF demonstrated an elevated glucose of 87 and a total protein of 53.4 otherwise within normal limits; ? * CT Head Neg for acute intracranial process: cannot get MRI secondary to Defibrillator/Pacemaker. * Hold off on Neuro consult; Consider EEG since mental status better; Resp: s/p extubated this am; on NC; CV: * Elevated cardiac markers as per cardiology due to stress; As per chart complained of chest pain and arm numbness * Continue to trend troponin * EKG repeated without significant findings of acute ischemia * BNP, CK-MB, LDH elevated: * ECHO with * Repeat EKG in AM * ECHO on 10/14/17 with apical variant of hypertrophic cardiomyopathy without left ventricular outflow tract obstruction or mitral regurgitation, asymmetric left ventricular hypertrophy, asymmetric hypertrophy involves the intraventricular septum left ventricular apex, left ventricular systolic function is normal with an EF of 60-65%. No left ventricular wall motion abnormality is noted. Diastolic dysfunction grade 2 without significant valvular heart disease. 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, no acute intraabdominal process; ID: * Pro calcitonin negative at 0.19; lactic acid negative at 0.92 * Blood cultures and she will spinal fluid cultures pending * Urinalysis unremarkable * Trend fever curve * Leukocytosis improving; * Patient does not appear to be septic or infectious from a bacterial standpoint , more likely ill secondary to possible viral component * off Abx for now; GI/Nutrition: * diet as able to swallow; * on Protonix at home; Heme: * stable; DVT prophylaxis: on Lovenox; * Monitor H&H daily; No current signs of gross bleeding I have personally spent 43 minutes of critical care time in the direct management of this patient. This is a life/limb threatening event. This includes time spent evaluating patient, direct bedside care, chart review, placing orders, interpretation of diagnostic studies, discussion with consultants, patient, and family members, as well as other required patient management activities. This time is exclusive of all separately billable procedures, and teaching time and separate from and in addition to any other critical care service time Documented By: Julian Lagunas Consults & Procedures Consultants: Cardiology: Dr. Adams Wound care Critical care services Procedures: Extubation 10/16/2017 Intubation 10/13/2017 Data Medications: Current Inpatient Medications Medications (Trade) Dose Ordered Sig/Nessa Route Start Time Stop Time Status Last Admin Dose Admin Ioversol (Optiray 320) 100 ml UD PRN IV 10/13/17 16:00 10/17/17 15:59 Pantoprazole Sodium 40 mg/ Syringe 10 ml @ 5 mls/min DAILY IV 10/14/17 09:00 11/13/17 08:59 10/16/17 08:25 5 MLS/MIN Midazolam HCl (Versed Inj) 2 mg Q1H PRN IV 10/13/17 19:45 11/12/17 19:44 10/14/17 00:02 2 MG Fentanyl Citrate (Fentanyl Inj) 50 mcg Q1H PRN IV 10/13/17 19:45 10/27/17 19:44 10/14/17 10:04 50 MCG Propofol (Diprivan Iv Emulsion 100ml Vial) 1 dose UD PRN IV 10/13/17 20:17 10/16/17 20:16 10/14/17 17:46 1 DOSE Enoxaparin Sodium (Lovenox Inj) 40 mg QAM SQ 10/14/17 09:00 11/13/17 08:59 10/16/17 08:24 40 MG Metoprolol Tartrate (Lopressor Tab) 25 mg BID OG 10/14/17 21:00 11/13/17 20:59 10/16/17 08:25 25 MG Aspirin (Aspirin Chew) 81 mg DAILY NG 10/15/17 09:00 11/14/17 08:59 10/16/17 08:25 81 MG Insulin Glargine (Lantus Solostar Pen) 20 units HS SC 10/14/17 10:00 11/13/17 09:59 10/15/17 21:32 20 UNITS Ipratropium [place] (Atrovent 0.02% 0.5MG/2.5ML Neb) 0.5 mg Q4H PRN INH 10/14/17 09:30 11/13/17 09:29 Levalbuterol (Xopenex 1.25MG/ 0.5ML Neb) 1.25 mg Q4H PRN INH 10/14/17 09:30 11/13/17 09:29 Enteral Nutritional Formula (Fibersource Hn) 1,000 ml UD PRN OG 10/14/17 11:30 11/13/17 11:29 10/14/17 23:49 1,000 ML Midazolam HCl 250 ml @ 0 mls/hr Q0M PRN IV 10/14/17 19:52 11/13/17 19:51 Fentanyl Citrate 250 ml @ 0 mls/hr Q0M PRN IV 10/14/17 19:52 10/28/17 19:51 10/16/17 00:24 20 MLS/HR Heparin Sodium (Porcine) (Heparin 10 Unit/ ml 5 ml Flush) 5 ml PRN PRN FLUSH 10/14/17 23:45 11/13/17 23:44 Parenteral Electrolyte Solution 500 ml @ 999 mls/hr Q31M IV 10/16/17 07:15 11/15/17 07:14 10/16/17 08:27 999 MLS/HR Dexmedetomidine HCl 200 mcg/ Sodium Chloride 50 ml @ 0 mls/hr Q0M IV 10/16/17 09:25 10/20/17 09:24 Gabapentin (Neurontin Cap) 600 mg TID PO 10/16/17 10:00 11/15/17 09:59 Lorazepam (Ativan Tab) 0.5 mg Q6H PRN PO 10/16/17 09:30 11/15/17 09:29 Sertraline HCl (Zoloft Tab) 150 mg DAILY PO 10/16/17 10:00 11/15/17 09:59 Vital Signs: Date Time Temp Pulse Resp B/P (MAP) Pulse Ox O2 Delivery O2 Flow Rate FiO2 10/16/17 09:48 100 24 93 Mask 50 10/16/17 07:45 30 10/16/17 06:00 88 16 105/62 (76) 97 Mechanical Ventilator 30 10/16/17 05:55 30 10/16/17 04:00 30 10/16/17 04:00 Mechanical Ventilator 30 10/16/17 04:00 37.3 89 16 114/74 (87) 97 Mechanical Ventilator 30 10/16/17 02:05 30 10/16/17 02:00 90 16 94/60 (71) 97 Mechanical Ventilator 30 10/16/17 00:01 36.8 86 16 104/50 (68) 97 Mechanical Ventilator 30 10/15/17 23:59 30 10/15/17 23:59 Mechanical Ventilator 30 10/15/17 23:15 30 10/15/17 22:00 95 16 114/61 (78) 98 Mechanical Ventilator 30 10/15/17 20:00 Mechanical Ventilator 30 10/15/17 20:00 95 16 111/59 (76) 97 Mechanical Ventilator 30 10/15/17 20:00 30 10/15/17 19:35 30 10/15/17 18:00 36.7 96 16 107/54 (71) 97 Mechanical Ventilator 30 10/15/17 17:40 30 10/15/17 16:00 97 Mechanical Ventilator 30 10/15/17 16:00 30 10/15/17 16:00 94 16 97 10/15/17 14:25 30 10/15/17 14:00 91 16 115/60 (78) 99 Mechanical Ventilator 30 10/15/17 12:00 36.6 82 16 125/64 (84) 99 Mechanical Ventilator 30 10/15/17 12:00 30 10/15/17 12:00 99 Mechanical Ventilator 30 10/15/17 11:35 30 Laboratory Results: Last 24 Hours Test 10/15/17 21:30 10/16/17 05:54 10/16/17 06:30 Bedside Glucose 191 mg/dl White Blood Count 9.49 K/uL Red Blood Count 3.63 M/uL Hemoglobin 10.3 g/dL Hematocrit 31.5 % Mean Corpuscular Volume 86.8 fL Mean Corpuscular Hemoglobin 28.4 pg Mean Corpuscular Hemoglobin Concent 32.7 g/dl RDW Standard Deviation 50.3 fL RDW Coefficient of Variation 15.9 % Platelet Count 140 K/uL Mean Platelet Volume 9.8 fL Sodium Level 138 mmol/L Potassium Level 3.6 mmol/L Chloride Level 106 mmol/L Carbon Dioxide Level 27 mmol/L Anion Gap 5.0 mmol/L Blood Urea Nitrogen 18 mg/dl Creatinine 0.80 mg/dl Est Creatinine Clear Calc Drug Dose 66.2 ml/min Estimated GFR () 93.5 Estimated GFR (Non- 80.7 BUN/Creatinine Ratio 22.6 Random Glucose 157 mg/dl Calcium Level 8.1 mg/dl Phosphorus Level 2.7 mg/dl Magnesium Level 2.5 mg/dl Blood Gas Sample Site R Radial Bedside Blood Gas pH (LAB) 7.46 Bedside Blood Gas pCO2 (LAB) 38 mmHg Bedside Blood Gas pO2 (LAB) 95 mmHg Bedside Blood Gas HCO3 (LAB) 27 meq/L Bedside Blood Gas Total CO2 28 mEq/l Bedside Blood Gas Base Excess (LAB) 3.0 meq/L Bedside Blood Gas O2 Saturation 98.0 % Rambo Test Pass Oxygen Delivery Device Ventilator Bedside Oxygen Rate (breaths/min) 16 Blood Gas Minute Ventilation 7.6 Bedside FiO2 30 % Blood Gas Tidal Volume 500 Blood Gas PEEP 5 Resident Tracking Resident Involvement: Resident Care Provided Care Provided: Adult Hospital Medicine
--- NOTE | 2017-10-16 11:27 | Progress Note ---
Internal Med Progress Note Date of Service: Oct 16, 2017. Provider Documentation: SUBJECTIVE: The patient was seen and examined Remains intubated Response with commands OBJECTIVE: Vital Signs-as noted below Exam: General-Remains on Vent Agitated at times Eyes-Closed ENT-Normal Neck-Supple Lungs-Clear to auscultate bilaterally Heart-Regular,no murmur Abdomen-Benign,no masses Extremities-No edema Neuro-On vent Response to vocal commands Lab data as noted below. ASSESSMENT & PLAN: ALTERED MENTAL STATUS Patient presented to ED with several day history of progressive confusion associated with jerking of upper and lower extremities. Recent medication changes included discontinuation of sertraline and addition of ropinirole for restless legs. Possible respiratory tract infection with perceived fever, pharyngitis, dyspnea. Also complained of a headache to her daughter. Head CT negative for apparent acute infarct, bleed, mass, etc. Consider encephalopathy secondary to sepsis, although source not apparent from initial evaluation in ED. LP performed by ED physician- no WBC's; RBC's 172 tube # 1 --> 1 tube # 4; glucose 87, protein 53. EEG:Generalized nonspecific Encephalopathy Consider encephalopathy secondary to medications::(amitriptyline, dicyclomine, diphenoxylate / atropine, hydroxyzine, trazodone). Clinically a little better ENDOTRACHEAL INTUBATION / MECHANICAL VENTILATION Intubated in ED for airway protection. Failed initial weaning trial. Management per Critical Care Medicine. Likely to Extubate soon LEUKOCYTOSIS WBC 17,150 at time of admission. Afebrile. CT of chest demonstrated bibasilar densities, atelectasis versus infiltrate ( atelectasis felt to be most likely per Radiology). No acute findings on CT of abdomen and pelvis. Urinalysis essentially negative. LP as noted above. 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 Blood cultures obtained in ED-Negative Received a dose of ceftriaxone and discontinued Blood and CSF cultures remain negative. HYPERTROPHIC CARDIOMYOPATHY Serum troponin 0.12 --> 0.079. EKG this morning shows normal sinus rhythm at 80/minute, LVH, no acute ST or T- wave abnormalities. 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 Elevated troponin most likely nonspecific elevation due to acute illness and not due to acute coronary syndrome. Cardiology consulted.-appreciate input Hemodynamically stable. Continue metoprolol. HYPERTENSION Hemodynamically stable. Continue metoprolol. DM TYPE 2 Managed with metformin in the past, but no longer taking it. Check Hgb A1C.--6.8 Random glucose 153 in ED. Glucose this morning 169. Follow blood sugars and manage per protocol. GI / NUTRITION Pantoprazole for GI prophylaxis. Enteral feedings- Fibersource via GT. DEPRESSION / CHRONIC PAIN / RESTLESS LEGS Most home meds on hold. Was tapering sertraline; consider restarting when neuro status improves to avoid withdrawal. VTE PROPHYLAXIS No anticoagulants initially due to LP. SCD's --> enoxaparin. DISPOSITION Critically ill. Admit to ICU. Discharge disposition to be determined. May need skilled care or rehab. Family Medicine follow-up with Dr. Suad De León. Vital Signs: Date Time Temp Pulse Resp B/P (MAP) Pulse Ox O2 Delivery O2 Flow Rate FiO2 10/16/17 09:48 100 24 93 Mask 50 10/16/17 08:00 30 10/16/17 08:00 97 Room Air 10/16/17 07:45 30 10/16/17 06:00 88 16 105/62 (76) 97 Mechanical Ventilator 30 10/16/17 05:55 30 10/16/17 04:00 30 10/16/17 04:00 Mechanical Ventilator 30 10/16/17 04:00 37.3 89 16 114/74 (87) 97 Mechanical Ventilator 30 10/16/17 02:05 30 10/16/17 02:00 90 16 94/60 (71) 97 Mechanical Ventilator 30 10/16/17 00:01 36.8 86 16 104/50 (68) 97 Mechanical Ventilator 30 10/15/17 23:59 30 10/15/17 23:59 Mechanical Ventilator 30 10/15/17 23:15 30 10/15/17 22:00 95 16 114/61 (78) 98 Mechanical Ventilator 30 10/15/17 20:00 Mechanical Ventilator 30 10/15/17 20:00 95 16 111/59 (76) 97 Mechanical Ventilator 30 10/15/17 20:00 30 10/15/17 19:35 30 10/15/17 18:00 36.7 96 16 107/54 (71) 97 Mechanical Ventilator 30 10/15/17 17:40 30 10/15/17 16:00 97 Mechanical Ventilator 30 10/15/17 16:00 30 10/15/17 16:00 94 16 97 10/15/17 14:25 30 10/15/17 14:00 91 16 115/60 (78) 99 Mechanical Ventilator 30 10/15/17 12:00 36.6 82 16 125/64 (84) 99 Mechanical Ventilator 30 10/15/17 12:00 30 10/15/17 12:00 99 Mechanical Ventilator 30 10/15/17 11:35 30 Lab Results: Results Past 24 Hours Test 10/15/17 21:30 10/16/17 05:54 10/16/17 06:30 Range/Units Bedside Glucose 191 70-90 mg/dl White Blood Count 9.49 4.8-10.8 K/uL Red Blood Count 3.63 4.2-5.4 M/uL Hemoglobin 10.3 12.0-16.0 g/dL Hematocrit 31.5 37-47 % Mean Corpuscular Volume 86.8 80-100 fL Mean Corpuscular Hemoglobin 28.4 25-34 pg Mean Corpuscular Hemoglobin Concent 32.7 32-36 g/dl RDW Standard Deviation 50.3 36.4-46.3 fL RDW Coefficient of Variation 15.9 11.5-14.5 % Platelet Count 140 130-400 K/uL Mean Platelet Volume 9.8 7.4-10.4 fL Sodium Level 138 136-145 mmol/L Potassium Level 3.6 3.5-5.1 mmol/L Chloride Level 106 98-107 mmol/L Carbon Dioxide Level 27 21-32 mmol/L Anion Gap 5.0 3-11 mmol/L Blood Urea Nitrogen 18 7-18 mg/dl Creatinine 0.80 0.60-1.20 mg/dl Est Creatinine Clear Calc Drug Dose 66.2 ml/min Estimated GFR () 93.5 Estimated GFR (Non- 80.7 BUN/Creatinine Ratio 22.6 10-20 Random Glucose 157 70-99 mg/dl Calcium Level 8.1 8.5-10.1 mg/dl Phosphorus Level 2.7 2.5-4.9 mg/dl Magnesium Level 2.5 1.8-2.4 mg/dl Blood Gas Sample Site R Radial Bedside Blood Gas pH (LAB) 7.46 7.35-7.45 Bedside Blood Gas pCO2 (LAB) 38 35-46 mmHg Bedside Blood Gas pO2 (LAB) 95 80-95 mmHg Bedside Blood Gas HCO3 (LAB) 27 19-24 meq/L Bedside Blood Gas Total CO2 28 24-31 mEq/l Bedside Blood Gas Base Excess (LAB) 3.0 -9-1.8 meq/L Bedside Blood Gas O2 Saturation 98.0 90-95 % Rambo Test Pass Oxygen Delivery Device Ventilator Bedside Oxygen Rate (breaths/min) 16 Blood Gas Minute Ventilation 7.6 Bedside FiO2 30 % Blood Gas Tidal Volume 500 Blood Gas PEEP 5
[2017-10-16] MEDS: GABAPENTIN 300 MG CAP PO SCH ×3 (12:22→22:33)
[2017-10-16] MEDS: SERTRALINE HCL 100 MG TAB PO SCH (12:23)
--- NOTE | 2017-10-16 14:43 | Psychiatric Consultation ---
Psychiatric Consultation Date of Service: Oct 16, 2017. 57 yo woman admitted with progressive confusion X 1-2 weeks prior to admission. Was intubated on admission for airway protection, extubated today. Consult placed to evaluate meds in the setting of AMS. Patient is disoriented, restless and unable to meaningfully participate in an interview at this time. OP records reveal med list includin. Trazodone 100 mg. HS 2. Requip 0.5 mg. HS 3. Ativan 0.5 mg. 1-2 tabs q 6 hr prn 4. gabapentin 600 mg. TID 5. Cymbalta 60 mg. daily 6. Elavil 50 mg. HS 7. Imitrex 25 mg. prn Supplemental obtained from indicates that she doesn't take her meds correctly sometimes taking less or more. Recent DC of Zoloft on 10/02, start of Requip. Although full consult will wait until she is able to participate, I agree that she is on many meds with serotonergic properties, raising the question of possible serotonin syndrome, although without fever. Elavil, trazodone, cymbalta, imitrex and requip have been held, but zoloft restarted. She is also receiving fentanyl. Initially agree with holding these meds, and suggest avoiding meds that would contribute to AMS ie opiates, anticholinergics to the degree possible. Although denies observing any SI/HI, cannot rule out overdose in view of hx of med confusion. QTc prolonged, as high as 587 msec on 10/14, now down to 487. I would certainly DC elavil in someone who cannot not reliably take the correct dose in view of serious cardiac side effects. Previously seen by the undersigned in 2013 with recs to follow up with psych which she did not. Will see again tomorrow for further interview.
--- NOTE | 2017-10-16 14:50 | Cardiology Follow-Up ---
Subjective General Date of Service: Oct 16, 2017. Chief Complaint: follow up hypertrophic CM Pt evaluation today including: conversation w/ patient, physical exam History of Present Illness The patient is a 57 year old female seen in follow up. She had been extubated this am about 1 hour before I saw her. Allergies Coded Allergies: Adhesives (Unverified Allergy, Intermediate, blistering, 05/04/17) Sulfa Antibiotics (Verified Allergy, Intermediate, swelling, 05/04/17) Doxycycline (Verified Allergy, Unknown, UNKNOWN, 05/04/17) Penicillins (Verified Allergy, Unknown, ZOSYN = FLUSHED FASE, ITCHING, ) FLUSHED FACE, ITCHING TOLERATED PRIMAXIN 2013 ADMISSION Social History Smoking Status: Never Smoker Hx Tobacco Use In Past Year?: No Hx Alcohol Use - Type And Amou: No Hx Substance Use - Type And Am: No Problem List Medical Problems: (1) Abdominal pain Status: Acute (2) Fever Status: Acute (3) LLQ abdominal pain Status: Acute (4) Substernal chest pain Status: Acute Physical Exam Vital Signs Last Vital Signs Documentation Date Time Temp Pulse Resp B/P (MAP) Pulse Ox O2 Delivery O2 Flow Rate FiO2 10/16/17 13:01 70 112/65 (77) 98 10/16/17 09:48 24 Mask 50 10/16/17 04:00 37.3 10/13/17 15:33 15.0 Physical Exam Constitutional: Level of Distress: acutely ill Neck: supple Lungs: Auscultation: no wheezing, no rales/crackles Cardiovascular: Heart Auscultation: RRR, no murmurs Abdomen: Inspection & Palpation: soft, non-distended Extremities: no edema Neurologic: Gait & Station: pertinent finding (confused, perhaps follows commands, squeezed my hand) Assessment and Plan Assessment and Plan Impression: 57-year-old female Encephalopathy Apical hypertrophic CM Plan: Volume status stable. Agree with psych evaluation to optimize medications. Laboratory Results Last 24 Hours Test 10/15/17 21:30 10/16/17 05:54 10/16/17 06:30 Bedside Glucose 191 mg/dl White Blood Count 9.49 K/uL Red Blood Count 3.63 M/uL Hemoglobin 10.3 g/dL Hematocrit 31.5 % Mean Corpuscular Volume 86.8 fL Mean Corpuscular Hemoglobin 28.4 pg Mean Corpuscular Hemoglobin Concent 32.7 g/dl RDW Standard Deviation 50.3 fL RDW Coefficient of Variation 15.9 % Platelet Count 140 K/uL Mean Platelet Volume 9.8 fL Sodium Level 138 mmol/L Potassium Level 3.6 mmol/L Chloride Level 106 mmol/L Carbon Dioxide Level 27 mmol/L Anion Gap 5.0 mmol/L Blood Urea Nitrogen 18 mg/dl Creatinine 0.80 mg/dl Est Creatinine Clear Calc Drug Dose 66.2 ml/min Estimated GFR () 93.5 Estimated GFR (Non- 80.7 BUN/Creatinine Ratio 22.6 Random Glucose 157 mg/dl Calcium Level 8.1 mg/dl Phosphorus Level 2.7 mg/dl Magnesium Level 2.5 mg/dl Blood Gas Sample Site R Radial Bedside Blood Gas pH (LAB) 7.46 Bedside Blood Gas pCO2 (LAB) 38 mmHg Bedside Blood Gas pO2 (LAB) 95 mmHg Bedside Blood Gas HCO3 (LAB) 27 meq/L Bedside Blood Gas Total CO2 28 mEq/l Bedside Blood Gas Base Excess (LAB) 3.0 meq/L Bedside Blood Gas O2 Saturation 98.0 % Rambo Test Pass Oxygen Delivery Device Ventilator Bedside Oxygen Rate (breaths/min) 16 Blood Gas Minute Ventilation 7.6 Bedside FiO2 30 % Blood Gas Tidal Volume 500 Blood Gas PEEP 5
[2017-10-16] MEDS: INSULIN GLARGINE SOLOSTAR 100 UNITS/ML 3 ML PEN SC SCH (22:42)
[2017-10-17] VITALS (23 sets, daily range): BP systolic 111–159; BP diastolic 60–94; PULSE 71–98; TEMP 36.5–37; O2SAT 89–100
[2017-10-17 06:39] LABS: BUN/CREATININE RATIO 27.6 (10-20); CALCIUM 8.4 mg/dl (8.5-10.1); CREATININE 0.79 mg/dl (0.60-1.20); MAGNESIUM 2.8 mg/dl (1.8-2.4); PHOSPHORUS 3.4 mg/dl (2.5-4.9); POTASSIUM 4.4 mmol/L (3.5-5.1)
[2017-10-17] MEDS: PANTOprazole INJ 40 MG in SYRINGE 0 ML IV SCH (08:03)
[2017-10-17] MEDS: ASPIRIN 81 MG CHEW NG SCH (08:03)
[2017-10-17] MEDS: METOPROLOL TARTRATE 25 MG TAB OG SCH ×2 (08:04→19:33)
[2017-10-17] MEDS: SERTRALINE HCL 100 MG TAB PO SCH (08:04)
[2017-10-17] MEDS: ENOXAPARIN 40 MG/0.4 ML SYR SQ SCH (08:05)
[2017-10-17] MEDS: GABAPENTIN 300 MG CAP PO SCH ×3 (08:06→19:33)
--- NOTE | 2017-10-17 12:09 | Psychiatric Consultation ---
Consultation Date of Consultation Oct 17, 2017. Identifying Data 57 yo female with multiple medical conditions listed below, presented to the ED with 1-2 wk hx of confusion, restlessness. In ED became poorly responsive and was intubated for airway protection. We are consulted to evaluate psychiatric medications in view of polypharmacy. Informations is gathered from the patient , the EHR and the . Chief Complaint "I'm fine. ". History of Present Illness The patient is a 57-year-old woman with past medical history for obesity, hypertension, diabetes, diverticulitis with history of rupture, who was brought to the emergency department by her with a one to two-week period of increasing confusion and restlessness. In the emergency department she was given Ativan for extreme restlessness and was later found to be poorly responsive, requiring intubation to protect her airway. She was not able to be extubated until yesterday. I attempted to see her yesterday but she was too disoriented to participate in a meaningful conversation. At the time I see her today she looks much improved, is seated in the bedside chair. She remains, however, somewhat disoriented, thinking she is in room 3 at [facility]. She is also confused thinking that she was brought here for bowel surgery which she had during this stay. That actually occurred in 2013. She therefore does not recall the specific circumstances of this admission. She does remember having had 2 appointments with her PCP to talk about medications. She feels that she is on too many medications, doesn't want to take some many pills. Today she denies feeling depressed or acutely anxious but says she has some stressors in her life that do cause her mild stress. Her daughter and granddaughter live with her which adds later financial stress. The patient is retired, does not have her own income and so everyone is being supported by her who she says works a lot. With the holidays approaching, she is worried there will not be enough money for [place]. She endorses impaired sleep, with inability to fall asleep and stay asleep. She has been taking trazodone at home. She reports a normal appetite. She denies any suicidal thinking. I review with her the information from her about his concerns for medication nonadherence and she adamantly denies this. She says the only time she will not take her medications as if she has to get in the car to go belt picker her grandchild saying she does not take her antibiotics because it will alter her ability to drive. I attempted to clarify this but she insisted that it was antibiotics that she didn't take. She denies that she over takes her medications and says that her is "crazy". Past Psychiatric History Current OP Treatment: no current treatment Prior OP Treatment: no prior treatment (the patient was recommended to see the undersigned in the outpatient clinic in 2013 but she canceled her appointment.) Prior Psych Hospitalizations: none Access to a Gun: No Suicide Attempts: No Past Medication Trials Zoloft Past Medical/Surgical History History of Concussion/Seizure: No (1) Acute respiratory failure (2) Hypertension (3) Diabetes mellitus, type 2 (4) Hydronephrosis of right kidney Allergies Allergies: Coded Allergies: Adhesives (Unverified Allergy, Intermediate, blistering, 05/04/17) Sulfa Antibiotics (Verified Allergy, Intermediate, swelling, 05/04/17) Doxycycline (Verified Allergy, Unknown, UNKNOWN, 05/04/17) Penicillins (Verified Allergy, Unknown, ZOSYN = FLUSHED FASE, ITCHING, ) FLUSHED FACE, ITCHING TOLERATED PRIMAXIN 2014 ADMISSION Home Medications Scheduled Amitriptyline HCl (Amitriptyline HCl), 50 MG PO HS Aspirin (Aspirin Ec), 81 MG PO QAM Dicyclomine Hcl (Bentyl), 10 MG PO TID Duloxetine HCl (Duloxetine HCl), 60 MG PO HS Fluticasone Propionate (Flovent Hfa), 2 PUFFS INH BID Gabapentin (Gabapentin), 600 MG PO TID Hydroxyzine Pamoate (Vistaril), 25 MG PO HS Metoprolol Succinate (Toprol Xl), 25 MG PO LUNCH Omeprazole (Prilosec), 40 MG PO DAILY Ropinirole Hydrochloride (Requip), 0.5 MG PO HS Sertraline HCl (Sertraline HCl), 150 MG PO DAILY Trazodone Hcl (Trazodone), 100 MG PO HS Scheduled PRN Diphenoxylate/Atropine (Lomotil), 1 TAB PO DIRECTED PRN for Diarrhea Lorazepam (Lorazepam), 0.5-1 MG PO Q6H PRN for Anxiety Sumatriptan Succinate (Imitrex), 25 MG PO PRN PRN for Migraine Family History Gastric cancer DAUGHTER Hyperlipidemia MOTHER Hypertrophic cardiomyopathy FATHER Seizure disorder DAUGHTER History of Suicide: No History of Substance Abuse: Yes (father and son are alcoholics) Psychiatric History: Yes (Sr. with depression) Alcohol Use Alcohol Use In Past 12 Months: No Smoking Use Smoking Status: Never Smoker Substance History Denies Personal History Lives in: [place] with her , daughter and granddaughter Childhood: Was raised by both parents. Her father in the early . She has 1 brother, 1 sister. 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 She was most recently employed by [employer] and is retired for the last 5 years. Education: started high school, other (beautician certificate) Work History: Retired Relationship History: Children: 2 adult children, 1 son and 1 daughter Spiritual Affiliation: none Legal History: none Review of Systems Constitutional: malaise Eyes: denies: no symptoms, as stated in HPI, eye pain, tearing, itching, redness, discharge, double vision, visual changes, blurred vision, photophobia, other ENT: denies: no symptoms reported, see HPI, ear pain, ear discharge, loss of hearing, tinnitus, nasal pain, nasal congestion, rhinorrhea, epistaxis, sore throat, stidor, throat swelling, mouth pain, mouth swelling, dental pain, gum swelling, other Cardiovascular: denies: no symptoms reported, see HPI, chest pain, chest tightness, chest pressure, diaphoresis, palpitations, syncope, other Respiratory: reports: short of breath (on O2 by nasal cannula) Gastrointestinal: denies no symptoms reported, denies see HPI, denies abdominal pain, denies constipation, denies diarrhea, denies nausea, denies vomiting, denies other Genitourinary - Female: denies: no symptoms, see HPI, rash, amenorrhea, dysmenorrhea, menorrhagia, metrorrhagia, , vaginal bleeding, vaginal itching, vaginal discharge, vulvadynia, other Musculoskeletal: denies no symptoms reported, denies see HPI, denies back pain , denies gout, denies joint pain, denies joint swelling, denies muscle pain, denies muscle stiffness, denies neck pain, denies other Integumentary: denies no symptoms reported, denies see HPI, denies change in color, denies change in hair/nails, denies dryness, denies lesions, denies lumps , denies rash, denies other Neurologic: reports: other (restless legs) Endocrine: denies: no symptoms, as stated in HPI, cold intolerance, heat intolerance, hair changes, goiter, polydipsia, polyuria, skin changes, other Hematologic / Lymphatic: denies: no symptoms, as stated in HPI, abnormal clotting, adenopathy, anemia, easy bleeding, easy bruising, gums bleeding, petechiae, other Examination Physical Examination As per Dr. Emmanuel Vital Signs Vital Signs Past 12 Hours Date Time Temp Pulse Resp B/P (MAP) Pulse Ox O2 Delivery O2 Flow Rate FiO2 10/17/17 08:01 36.8 81 23 135/72 (93) 98 Nasal Cannula 2.0 10/17/17 08:00 80 37 89 Room Air 10/17/17 08:00 Nasal Cannula 2.0 10/17/17 07:01 78 18 114/62 (79) 100 10/17/17 07:00 73 20 100 10/17/17 06:01 71 18 111/64 (80) 100 Nasal Cannula 2.0 10/17/17 05:11 75 20 130/70 (90) 100 Nasal Cannula 2.0 10/17/17 04:01 36.5 86 22 134/73 (93) 100 Nasal Cannula 2.0 10/17/17 04:00 Nasal Cannula 2.0 10/17/17 03:01 88 26 131/72 (91) 99 Nasal Cannula 2.0 10/17/17 02:01 84 23 138/76 (96) 97 Nasal Cannula 2.0 10/17/17 01:01 81 17 134/77 (96) 95 CPAP 3.0 10/17/17 00:01 36.5 74 18 116/60 (78) 92 Nasal Cannula 2.0 10/17/17 00:01 Nasal Cannula 2.0 10/16/17 23:39 81 97 3.0 Laboratory Results Last 24 Hours Test 10/16/17 20:55 10/17/17 06:01 Bedside Glucose 158 mg/dl White Blood Count 10.91 K/uL Red Blood Count 3.60 M/uL Hemoglobin 10.0 g/dL Hematocrit 31.1 % Mean Corpuscular Volume 86.4 fL Mean Corpuscular Hemoglobin 27.8 pg Mean Corpuscular Hemoglobin Concent 32.2 g/dl RDW Standard Deviation 47.9 fL RDW Coefficient of Variation 15.4 % Platelet Count 163 K/uL Mean Platelet Volume 10.1 fL Sodium Level 142 mmol/L Potassium Level 4.4 mmol/L Chloride Level 111 mmol/L Carbon Dioxide Level 26 mmol/L Anion Gap 5.0 mmol/L Blood Urea Nitrogen 22 mg/dl Creatinine 0.79 mg/dl Est Creatinine Clear Calc Drug Dose 71.4 ml/min Estimated GFR () 95.0 Estimated GFR (Non- 81.9 BUN/Creatinine Ratio 27.6 Random Glucose 122 mg/dl Calcium Level 8.4 mg/dl Phosphorus Level 3.4 mg/dl Magnesium Level 2.8 mg/dl Mental Examination During interview pt is: cooperative Appearance: appropriately groomed Eye contact is: good Motor behavior is: other (restless movements of bilateral legs) Speech: normal in rate, rhythm & volume Affect: blunted Mood is: other ("OK") Thought process: goal directed Thought content: other (disorientation to place and event) Suicidal thought are: denied Homicidal thoughts are: denied Hallucinations: denies auditory, denies visual Cognition: attention grossly intact, language grossly intact Intelligence estimated to be: average Insight: limited Judgement: limited Impression / Recommendations Impression 57-year-old woman with multiple medical conditions admitted with altered mental status, requiring intubation for airway protection. I think we're all agreed that she has been on quite a few psychoactive medications including trazodone, Requip, Ativan, gabapentin, Cymbalta, Elavil and Imitrex. These medications have been held with the exception of having restarted Zoloft at 150 mg daily, restarting Neurontin 600 mg 3 times a day and today have restarted Requip 0.5 mg at bedtime and Ativan when necessary. I'm good to suggest we discontinue Ativan due to concerns for altered mental status. She remains somewhat disoriented and confused about the circumstances of admission. As I mentioned in my note yesterday, I am certainly concerned about the use of a tricyclic antidepressant in anyone with the potential to overtake her overdose on it and so will recommend this be permanently discontinued. She had been on Cymbalta at one point and I'm unsure why the primary team restarted Zoloft as opposed to Cymbalta and this will require further investigation. She is having trouble sleeping at night and her ability to give me good history about that today is limited. Certainly her restless legs could be interfering with her sleep in which case Zoloft is more likely to worsen RLS then Cymbalta would. It is well worth treating the restless legs syndrome in view of the fact there is a high correlation of depression in patients with untreated RLS. It will take some time to observe the effects of medication reduction and evaluate the impact to her sleep and mood. I have once again recommended that she be seen by a psychiatric professional and she has agreed to do so. She would like a female provider. Will have our liaison nurse return to facilitate an appointment. I do not think at this point that she requires inpatient mental health treatment in view of the fact she is denying suicidality, or psychosis. I would recommend that further efforts be made to control access to her medications, perhaps only allowing 1 days' medications at a time. Her family should also carefully remove all medications that she is not currently prescribed at the time of discharge since we are discontinuing multiple psychiatric medications. Inventory Assets Strengths: Willingness to engage in psychiatric treatment Needs: Medication adherence Risk Factors Assessment : Yes /single/: No Higher / Fall in social status: No Access to guns: No Health problems: Yes Mental Health Diagnoses: Yes Substance use disorders: No Previous attempt: No Family history of suicide: No Previous psychiatric stay: No Hopelessness: No Smoker: No (he) Protective Factors Assessment Samaritan beliefs: No : Yes Responsible for young children: Yes Employed: No Stable relationships: Yes Supportive family: Yes Recommendations (1) Depression 10/17 - Explore reasons for Zoloft discontinuation as an OP as Cymbalta may be a better choice, or even Wellbutrin, given her RLS - The patient is agreeable to OP psychiatric follow up. Will have liaison nurse return to facilitate appt. - Will have liaison nurse communicate with re: limiting access to more than 1 day's worth of meds at a time to reduce med confusion and possible OD. Will also need to remove all meds not currently prescribed after discharge. - Recommend DC of Ativan, and avoidance of meds that can contribute to altered mental status. (2) Restless leg syndrome 10/17 - Continue Requip 0.5 mg. HS Has been reviewed with Dr. Paloma Bhatti
--- NOTE | 2017-10-17 14:48 | Progress Note ---
Internal Med Progress Note Date of Service: Oct 17, 2017. Provider Documentation: SUBJECTIVE: The patient was seen and examined Successful Extubation 10/16 Denies any symptoms today OBJECTIVE: Vital Signs-as noted below Exam: General-No distress at rest Eyes-Closed ENT-Normal Neck-Supple Lungs-Clear to auscultate bilaterally Heart-Regular,no murmur Abdomen-Benign,no masses Extremities-No edema Neuro-On vent Response to vocal commands Lab data as noted below. ASSESSMENT & PLAN: ALTERED MENTAL STATUS Patient presented to ED with several day history of progressive confusion associated with jerking of upper and lower extremities. Recent medication changes included discontinuation of sertraline and addition of ropinirole for restless legs. Possible respiratory tract infection with perceived fever, pharyngitis, dyspnea. Also complained of a headache to her daughter. Head CT negative for apparent acute infarct, bleed, mass, etc. Consider encephalopathy secondary to sepsis, although source not apparent from initial evaluation in ED. LP performed by ED physician- no WBC's; RBC's 172 tube # 1 --> 1 tube # 4; glucose 87, protein 53. EEG:Generalized nonspecific Encephalopathy Consider encephalopathy secondary to medications::(amitriptyline, dicyclomine, diphenoxylate / atropine, hydroxyzine, trazodone). Appreciate Psychiatry evaluation and recommendation Transfer to Tele PT/OT evaluation Social service for Discharge planning ENDOTRACHEAL INTUBATION / MECHANICAL VENTILATION Intubated in ED for airway protection. Failed initial weaning trial. Management per Critical Care Medicine. S/P Extubation 10/16 Clinically stable following extubation Denies any symptoms LEUKOCYTOSIS WBC 17,150 at time of admission. Afebrile. CT of chest demonstrated bibasilar densities, atelectasis versus infiltrate ( atelectasis felt to be most likely per Radiology). No acute findings on CT of abdomen and pelvis. Urinalysis essentially negative. LP as noted above. [employer] TECHNICIAN swab for influenza A/B PCR neg. Blood cultures obtained in ED-Negative Received a dose of ceftriaxone and discontinued Blood and CSF cultures remain negative. HYPERTROPHIC CARDIOMYOPATHY Serum troponin 0.12 --> 0.079. EKG this morning shows normal sinus rhythm at 80/minute, LVH, no acute ST or T- wave abnormalities. 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 Elevated troponin most likely nonspecific elevation due to acute illness and not due to acute coronary syndrome. Cardiology consulted.-appreciate input Hemodynamically stable. Continue metoprolol. HYPERTENSION Hemodynamically stable. Continue metoprolol. DM TYPE 2 Managed with metformin in the past, but no longer taking it. Check Hgb A1C.--6.8 Random glucose 153 in ED. Glucose this morning 169. Follow blood sugars and manage per protocol. GI / NUTRITION Pantoprazole for GI prophylaxis. Enteral feedings- Fibersource via GT. DEPRESSION / CHRONIC PAIN / RESTLESS LEGS Most home meds on hold. Was tapering sertraline; consider restarting when neuro status improves to avoid withdrawal. VTE PROPHYLAXIS No anticoagulants initially due to LP. SCD's --> enoxaparin. DISPOSITION Critically ill. Admit to ICU. Discharge disposition to be determined. May need skilled care or rehab. Family Medicine follow-up with Dr. Suad De León. Likely home in a day or two Vital Signs: Date Time Temp Pulse Resp B/P (MAP) Pulse Ox O2 Delivery O2 Flow Rate FiO2 10/17/17 13:00 36.8 84 18 147/78 (101) 98 Nasal Cannula 2.0 10/17/17 12:02 88 16 159/85 (109) 93 Nasal Cannula 2.0 10/17/17 12:00 36.8 86 25 95 10/17/17 11:50 Nasal Cannula 2.0 10/17/17 11:12 78 13 135/94 (108) 100 10/17/17 11:03 82 24 100 10/17/17 11:00 80 16 100 Nasal Cannula 2.0 10/17/17 10:02 86 21 100 10/17/17 10:00 84 21 99 10/17/17 09:01 78 22 118/67 (84) 100 Nasal Cannula 2.0 10/17/17 09:00 75 20 100 10/17/17 08:01 36.8 81 23 135/72 (93) 98 Nasal Cannula 2.0 10/17/17 08:00 80 37 89 Room Air 10/17/17 08:00 Nasal Cannula 2.0 10/17/17 07:01 78 18 114/62 (79) 100 10/17/17 07:00 73 20 100 10/17/17 06:01 71 18 111/64 (80) 100 Nasal Cannula 2.0 10/17/17 05:11 75 20 130/70 (90) 100 Nasal Cannula 2.0 10/17/17 04:01 36.5 86 22 134/73 (93) 100 Nasal Cannula 2.0 10/17/17 04:00 Nasal Cannula 2.0 10/17/17 03:01 88 26 131/72 (91) 99 Nasal Cannula 2.0 10/17/17 02:01 84 23 138/76 (96) 97 Nasal Cannula 2.0 10/17/17 01:01 81 17 134/77 (96) 95 CPAP 3.0 10/17/17 00:01 36.5 74 18 116/60 (78) 92 Nasal Cannula 2.0 10/17/17 00:01 Nasal Cannula 2.0 10/16/17 23:39 81 97 3.0 10/16/17 23:01 90 16 135/80 (98) 96 Nasal Cannula 2.0 10/16/17 22:19 97 18 148/73 (98) 99 Nasal Cannula 2.0 10/16/17 22:18 109 26 95 Nasal Cannula 2.0 10/16/17 22:02 118 32 175/129 (144) 86 Nasal Cannula 2.0 10/16/17 21:01 86 24 125/68 (87) 98 Nasal Cannula 2.0 10/16/17 20:01 36.5 91 22 140/76 (97) 100 Nasal Cannula 2.0 10/16/17 20:00 Nasal Cannula 2.0 10/16/17 19:01 84 18 128/70 (89) 100 Nasal Cannula 2.0 10/16/17 18:00 100 10/16/17 18:00 36.8 91 16 122/72 (89) 100 Nasal Cannula 4.0 10/16/17 17:00 83 98 10/16/17 16:00 99 Nasal Cannula 4.0 50 10/16/17 15:00 79 99 Lab Results: Results Past 24 Hours Test 10/16/17 20:55 10/17/17 06:01 10/17/17 12:44 Range/Units Bedside Glucose 158 111 70-90 mg/dl White Blood Count 10.91 4.8-10.8 K/uL Red Blood Count 3.60 4.2-5.4 M/uL Hemoglobin 10.0 12.0-16.0 g/dL Hematocrit 31.1 37-47 % Mean Corpuscular Volume 86.4 80-100 fL Mean Corpuscular Hemoglobin 27.8 25-34 pg Mean Corpuscular Hemoglobin Concent 32.2 32-36 g/dl RDW Standard Deviation 47.9 36.4-46.3 fL RDW Coefficient of Variation 15.4 11.5-14.5 % Platelet Count 163 130-400 K/uL Mean Platelet Volume 10.1 7.4-10.4 fL Sodium Level 142 136-145 mmol/L Potassium Level 4.4 3.5-5.1 mmol/L Chloride Level 111 98-107 mmol/L Carbon Dioxide Level 26 21-32 mmol/L Anion Gap 5.0 3-11 mmol/L Blood Urea Nitrogen 22 7-18 mg/dl Creatinine 0.79 0.60-1.20 mg/dl Est Creatinine Clear Calc Drug Dose 71.4 ml/min Estimated GFR () 95.0 Estimated GFR (Non- 81.9 BUN/Creatinine Ratio 27.6 10-20 Random Glucose 122 70-99 mg/dl Calcium Level 8.4 8.5-10.1 mg/dl Phosphorus Level 3.4 2.5-4.9 mg/dl Magnesium Level 2.8 1.8-2.4 mg/dl
[2017-10-17] MEDS: ROPINIROLE HCL 0.25 MG TAB PO SCH (19:32)
[2017-10-17] MEDS: INSULIN GLARGINE SOLOSTAR 100 UNITS/ML 3 ML PEN SC SCH (19:43)
[2017-10-18] VITALS (10 sets, daily range): BP systolic 138–175; BP diastolic 46–88; PULSE 82–97; TEMP 36.7–37; O2SAT 94–98
[2017-10-18 06:44] LABS: HEMATOCRIT 37.9 % (37-47); MEAN CELL VOLUME 86.3 fL (80-100); MEAN CORPUSCULAR HGB CONC 32.5 g/dl (32-36); MEAN PLATELET VOLUME 9.6 fL (7.4-10.4); PLATELET COUNT 210 K/uL (130-400); RED BLOOD COUNT 4.39 M/uL (4.2-5.4); WHITE BLOOD COUNT 10.77 K/uL (4.8-10.8)
[2017-10-18 07:17] LABS: BUN/CREATININE RATIO 22.8 (10-20); CREATININE 0.96 mg/dl (0.60-1.20); MAGNESIUM 2.2 mg/dl (1.8-2.4); POTASSIUM 4.1 mmol/L (3.5-5.1)
[2017-10-18 07:18] LABS: PHOSPHORUS 3.2 mg/dl (2.5-4.9)
[2017-10-18] MEDS: GABAPENTIN 300 MG CAP PO SCH ×3 (07:53→20:49)
[2017-10-18] MEDS: METOPROLOL TARTRATE 25 MG TAB OG SCH ×2 (07:53→20:48)
[2017-10-18] MEDS: ENOXAPARIN 40 MG/0.4 ML SYR SQ SCH (07:54)
[2017-10-18] MEDS: ASPIRIN 81 MG CHEW NG SCH (07:54)
[2017-10-18] MEDS: PANTOprazole INJ 40 MG in SYRINGE 0 ML IV SCH (07:54)
[2017-10-18] MEDS: SERTRALINE HCL 100 MG TAB PO SCH (07:54)
--- NOTE | 2017-10-18 17:27 | Progress Note ---
Internal Med Progress Note Date of Service: Oct 18, 2017. Provider Documentation: SUBJECTIVE: The patient was seen and examined Successful Extubation 10/16 Denies any symptoms today Occasional anxiety attack otherwise stable OBJECTIVE: Vital Signs-as noted below Exam: General-No distress at rest Eyes-Closed ENT-Normal Neck-Supple Lungs-Clear to auscultate bilaterally Heart-Regular,no murmur Abdomen-Benign,no masses Extremities-No edema Neuro-On vent Response to vocal commands Lab data as noted below. ASSESSMENT & PLAN: ALTERED MENTAL STATUS Patient presented to ED with several day history of progressive confusion associated with jerking of upper and lower extremities. Recent medication changes included discontinuation of sertraline and addition of ropinirole for restless legs. Possible respiratory tract infection with perceived fever, pharyngitis, dyspnea. Also complained of a headache to her daughter. Head CT negative for apparent acute infarct, bleed, mass, etc. Consider encephalopathy secondary to sepsis, although source not apparent from initial evaluation in ED. LP performed by ED physician- no WBC's; RBC's 172 tube # 1 --> 1 tube # 4; glucose 87, protein 53. EEG:Generalized nonspecific Encephalopathy Consider encephalopathy secondary to medications::(amitriptyline, dicyclomine, diphenoxylate / atropine, hydroxyzine, trazodone). Appreciate Psychiatry evaluation and recommendation Transfer to Tele PT/OT evaluation Social service for Discharge planning Likely to be discharge tomorrow ENDOTRACHEAL INTUBATION / MECHANICAL VENTILATION Intubated in ED for airway protection. Failed initial weaning trial. Management per Critical Care Medicine. S/P Extubation 10/16 Clinically stable following extubation Denies any symptoms Having low saturation on ambulation Will get 2 steps before discharge LEUKOCYTOSIS WBC 17,150 at time of admission. Afebrile. CT of chest demonstrated bibasilar densities, atelectasis versus infiltrate ( atelectasis felt to be most likely per Radiology). No acute findings on CT of abdomen and pelvis. Urinalysis essentially negative. LP as noted above. 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 Blood cultures obtained in ED-Negative Received a dose of ceftriaxone and discontinued Blood and CSF cultures remain negative. HYPERTROPHIC CARDIOMYOPATHY Serum troponin 0.12 --> 0.079. EKG this morning shows normal sinus rhythm at 80/minute, LVH, no acute ST or T- wave abnormalities. 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 Elevated troponin most likely nonspecific elevation due to acute illness and not due to acute coronary syndrome. Cardiology consulted.-appreciate input Hemodynamically stable. Continue metoprolol. HYPERTENSION Hemodynamically stable. Continue metoprolol. DM TYPE 2 Managed with metformin in the past, but no longer taking it. Check Hgb A1C.--6.8 Random glucose 153 in ED. Glucose this morning 169. Follow blood sugars and manage per protocol. GI / NUTRITION Pantoprazole for GI prophylaxis. Enteral feedings- Fibersource via GT. DEPRESSION / CHRONIC PAIN / RESTLESS LEGS Most home meds on hold. Was tapering sertraline; consider restarting when neuro status improves to avoid withdrawal. VTE PROPHYLAXIS No anticoagulants initially due to LP. SCD's --> enoxaparin. DISPOSITION Critically ill. Admit to ICU. Discharge disposition to be determined. May need skilled care or rehab. Family Medicine follow-up with Dr. Suad De León. Likely home in a day or two Vital Signs: Date Time Temp Pulse Resp B/P (MAP) Pulse Ox O2 Delivery O2 Flow Rate FiO2 10/18/17 15:30 36.8 94 20 153/88 (109) 98 Nasal Cannula 2.0 10/18/17 12:23 37.0 89 18 154/66 (95) 96 10/18/17 12:00 97 Room Air 2.0 Nasal Cannula 10/18/17 08:55 94 10/18/17 08:12 36.8 86 22 160/79 (106) 95 10/18/17 08:00 97 Room Air 2.0 Nasal Cannula 10/18/17 04:32 37.0 87 18 175/73 (107) 97 BiPAP 10/18/17 04:00 CPAP 3.0 10/18/17 00:31 36.8 84 19 138/46 (76) 97 BiPAP 10/18/17 00:00 82 94 3.0 10/18/17 00:00 CPAP 3.0 10/17/17 20:00 Nasal Cannula 1.0 10/17/17 19:35 37.0 98 20 154/87 (109) 89 Room Air Lab Results: Results Past 24 Hours Test 10/17/17 19:41 10/18/17 06:11 10/18/17 07:07 Range/Units Bedside Glucose 111 113 70-90 mg/dl White Blood Count 10.77 4.8-10.8 K/uL Red Blood Count 4.39 4.2-5.4 M/uL Hemoglobin 12.3 12.0-16.0 g/dL Hematocrit 37.9 37-47 % Mean Corpuscular Volume 86.3 80-100 fL Mean Corpuscular Hemoglobin 28.0 25-34 pg Mean Corpuscular Hemoglobin Concent 32.5 32-36 g/dl RDW Standard Deviation 48.7 36.4-46.3 fL RDW Coefficient of Variation 15.6 11.5-14.5 % Platelet Count 210 130-400 K/uL Mean Platelet Volume 9.6 7.4-10.4 fL Sodium Level 135 136-145 mmol/L Potassium Level 4.1 3.5-5.1 mmol/L Chloride Level 104 98-107 mmol/L Carbon Dioxide Level 25 21-32 mmol/L Anion Gap 6.0 3-11 mmol/L Blood Urea Nitrogen 22 7-18 mg/dl Creatinine 0.96 0.60-1.20 mg/dl Est Creatinine Clear Calc Drug Dose 57.1 ml/min Estimated GFR () 75.0 Estimated GFR (Non- 64.7 BUN/Creatinine Ratio 22.8 10-20 Random Glucose 121 70-99 mg/dl Calcium Level 9.0 8.5-10.1 mg/dl Phosphorus Level 3.2 2.5-4.9 mg/dl Magnesium Level 2.2 1.8-2.4 mg/dl
[2017-10-18] MEDS: ROPINIROLE HCL 0.25 MG TAB PO SCH (20:49)
[2017-10-18] MEDS ORDERED: GLUCOSE 40% GEL 15 GM TUBE PO PRN (21:15)
[2017-10-18] MEDS ORDERED: GLUCOSE 10 TABS/TUBE PO PRN (21:15)
[2017-10-18] MEDS ORDERED: GLUCAGON FOR INJ 1 MG VIAL SQ PRN (21:15)
[2017-10-18] MEDS ORDERED: DEXTROSE 50% 50 ML SYR IV PRN (21:15)
[2017-10-19] VITALS (11 sets, daily range): BP systolic 130–169; BP diastolic 75–93; PULSE 86–101; TEMP 36.4–37; O2SAT 90–100
[2017-10-19] MEDS: METOPROLOL TARTRATE 25 MG TAB OG SCH ×2 (09:03→20:59)
[2017-10-19] MEDS: GABAPENTIN 300 MG CAP PO SCH ×3 (09:03→21:00)
[2017-10-19] MEDS: PANTOprazole SOD 40 MG TAB PO SCH (09:04)
[2017-10-19] MEDS: SERTRALINE HCL 100 MG TAB PO SCH (09:04)
[2017-10-19] MEDS: ASPIRIN 81 MG CHEW NG SCH (09:08)
[2017-10-19] MEDS: INSULIN ASPART 100 UNITS/ML 3 ML PEN SC SCH ×4 (09:10→20:47)
[2017-10-19] MEDS: ENOXAPARIN 40 MG/0.4 ML SYR SQ SCH (09:10)
[2017-10-19] MEDS: INSULIN GLARGINE SOLOSTAR 100 UNITS/ML 3 ML PEN SC SCH (09:13)
--- NOTE | 2017-10-19 14:11 | Psychiatric Progress Notes ---
Psychiatric Progress Note Date of Service Oct 19, 2017. Notes ID: Patient reviewed with MARA Rivers, completed initial consult on 10/17 , admit with AMS, psychotropics initially held, Zoloft restarted by primary team. CC: restless legs HPI: denied acute issues overnight, much less confused. She reports bruxism with some biting of the sides of her cheek and tongue, inability to tolerate CPAP mask due to restlessness at night. She states that Cymbalta was started for neuropathy in her feet/legs. She feels she may take medications incorrectly about once a week. She doesn't take Ativan if driving or spending time with her grandchildren. Current Inpatient Medications Medications (Trade) Dose Ordered Sig/Nessa Route Start Time Stop Time Status Last Admin Dose Admin Midazolam HCl (Versed Inj) 2 mg Q1H PRN IV 10/13/17 19:45 11/12/17 19:44 10/14/17 00:02 2 MG Fentanyl Citrate (Fentanyl Inj) 50 mcg Q1H PRN IV 10/13/17 19:45 10/27/17 19:44 10/14/17 10:04 50 MCG Enoxaparin Sodium (Lovenox Inj) 40 mg QAM SQ 10/14/17 09:00 11/13/17 08:59 10/19/17 09:10 40 MG Metoprolol Tartrate (Lopressor Tab) 25 mg BID OG 10/14/17 21:00 11/13/17 20:59 10/19/17 09:03 25 MG Aspirin (Aspirin Chew) 81 mg DAILY NG 10/15/17 09:00 11/14/17 08:59 10/19/17 09:08 81 MG Ipratropium [place] (Atrovent 0.02% 0.5MG/2.5ML Neb) 0.5 mg Q4H PRN INH 10/14/17 09:30 11/13/17 09:29 10/16/17 22:18 0.5 MG Levalbuterol (Xopenex 1.25MG/ 0.5ML Neb) 1.25 mg Q4H PRN INH 10/14/17 09:30 11/13/17 09:29 10/16/17 22:18 1.25 MG Enteral Nutritional Formula (Fibersource Hn) 1,000 ml UD PRN OG 10/14/17 11:30 11/13/17 11:29 10/14/17 23:49 1,000 ML Heparin Sodium (Porcine) (Heparin 10 Unit/ ml 5 ml Flush) 5 ml PRN PRN FLUSH 10/14/17 23:45 11/13/17 23:44 Gabapentin (Neurontin Cap) 600 mg TID PO 10/16/17 10:00 11/15/17 09:59 10/19/17 09:03 600 MG Lorazepam (Ativan Tab) 0.5 mg Q6H PRN PO 10/16/17 09:30 11/15/17 09:29 Sertraline HCl (Zoloft Tab) 150 mg DAILY PO 10/16/17 10:00 11/15/17 09:59 10/19/17 09:04 150 MG Ropinirole HCl (Requip Tab) 0.5 mg HS PO 10/17/17 21:00 11/16/17 20:59 10/18/17 20:49 0.5 MG Pantoprazole Sodium (Protonix Tab) 40 mg QAM PO 10/19/17 09:00 11/18/17 08:59 10/19/17 09:04 40 MG Insulin Glargine (Lantus Solostar Pen) 5 units DAILY SC 10/19/17 09:00 11/18/17 08:59 10/19/17 09:13 5 UNITS Insulin Aspart (novoLOG ASPART) SLIDING SCALE If C... ACHS SC 10/19/17 06:43 11/18/17 06:59 Glucose (Glucose 40% Gel) 15-30 GRAMS 15 GRAMS... UD PRN PO 10/18/17 21:15 11/17/17 21:14 Glucose (Glucose Chew Tab) 4-8 Tablets 4 Tabl... UD PRN PO 10/18/17 21:15 11/17/17 21:14 Dextrose (Dextrose 50% 50ML Syringe) 25-50ML OF 50% DW IV FOR... UD PRN IV 10/18/17 21:15 11/17/17 21:14 Glucagon (Glucagon Inj) 1 mg UD PRN SQ 10/18/17 21:15 11/17/17 21:14 ROS: restless legs and bruxism as above, denies SI complaints Last Vital Signs Documentation Date Time Temp Pulse Resp B/P (MAP) Pulse Ox O2 Delivery O2 Flow Rate FiO2 10/19/17 12:00 Nasal Cannula 2.0 10/19/17 11:32 36.4 88 18 151/93 (112) 100 10/16/17 16:00 50 MSE: alert, cooperative, speech normal in rate and volume, good eye contact. She denies HI/SI/kaba. Insight and judgement improving. 2 beats of clonus on left foot. Imp: as per initial consult, AMS improved Plan: she was provided contact resources for a therapist via liasion agree with d/c of Ativan I would suggest decrease Zoloft to 50 mg until reassessed by outpatient prescriber given concerns for serotonin like syndrome on admission and ongoing clonus/bruxism/restless legs. If Cymbalta is restarted, would d/c Zoloft after 2-3 days at 50 mg.
--- NOTE | 2017-10-19 17:42 | Progress Note ---
Internal Med Progress Note Date of Service: Oct 19, 2017. Provider Documentation: SUBJECTIVE: The patient was seen and examined Successful Extubation 10/16 Denies any symptoms today More anxiety today -having hallucinations Not yet ready to be discharged OBJECTIVE: Vital Signs-as noted below Exam: General-very anxious Eyes-Closed ENT-Normal Neck-Supple Lungs-Clear to auscultate bilaterally Heart-Regular,no murmur Abdomen-Benign,no masses Extremities-No edema Neuro-On vent Response to vocal commands Lab data as noted below. ASSESSMENT & PLAN: ALTERED MENTAL STATUS Patient presented to ED with several day history of progressive confusion associated with jerking of upper and lower extremities. Recent medication changes included discontinuation of sertraline and addition of ropinirole for restless legs. Possible respiratory tract infection with perceived fever, pharyngitis, dyspnea. Also complained of a headache to her daughter. Head CT negative for apparent acute infarct, bleed, mass, etc. Consider encephalopathy secondary to sepsis, although source not apparent from initial evaluation in ED. LP performed by ED physician- no WBC's; RBC's 172 tube # 1 --> 1 tube # 4; glucose 87, protein 53. EEG:Generalized nonspecific Encephalopathy Consider encephalopathy secondary to medications::(amitriptyline, dicyclomine, diphenoxylate / atropine, hydroxyzine, trazodone). Appreciate Psychiatry evaluation and recommendation Transfer to Tele PT/OT evaluation Social service for Discharge planning Likely to be discharge tomorrow Generalized Anxiety Disorder Having Hallucinations Will observe Needs adjustment of psychiatric medications ENDOTRACHEAL INTUBATION / MECHANICAL VENTILATION Intubated in ED for airway protection. Failed initial weaning trial. Management per Critical Care Medicine. S/P Extubation 10/16 Clinically stable following extubation Denies any symptoms Having low saturation on ambulation Will get 2 steps before discharge LEUKOCYTOSIS WBC 17,150 at time of admission. Afebrile. CT of chest demonstrated bibasilar densities, atelectasis versus infiltrate ( atelectasis felt to be most likely per Radiology). No acute findings on CT of abdomen and pelvis. Urinalysis essentially negative. LP as noted above. 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 Blood cultures obtained in ED-Negative Received a dose of ceftriaxone and discontinued Blood and CSF cultures remain negative. HYPERTROPHIC CARDIOMYOPATHY Serum troponin 0.12 --> 0.079. EKG this morning shows normal sinus rhythm at 80/minute, LVH, no acute ST or T- wave abnormalities. 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 Elevated troponin most likely nonspecific elevation due to acute illness and not due to acute coronary syndrome. Cardiology consulted.-appreciate input Hemodynamically stable. Continue metoprolol. No acute issue HYPERTENSION Hemodynamically stable. Continue metoprolol. DM TYPE 2 Managed with metformin in the past, but no longer taking it. Check Hgb A1C.--6.8 Random glucose 153 in ED. Glucose this morning 169. Follow blood sugars and manage per protocol. GI / NUTRITION Pantoprazole for GI prophylaxis. Enteral feedings- Fibersource via GT. DEPRESSION / CHRONIC PAIN / RESTLESS LEGS Most home meds on hold. Was tapering sertraline; consider restarting when neuro status improves to avoid withdrawal. VTE PROPHYLAXIS No anticoagulants initially due to LP. SCD's --> enoxaparin. DISPOSITION Critically ill. Admit to ICU. Discharge disposition to be determined. May need skilled care or rehab. Family Medicine follow-up with Dr. Suad De León. Likely home in a day or two Vital Signs: Date Time Temp Pulse Resp B/P (MAP) Pulse Ox O2 Delivery O2 Flow Rate FiO2 10/19/17 16:00 90 Nasal Cannula 1.0 10/19/17 15:26 36.8 96 20 168/88 (114) 90 10/19/17 12:00 Nasal Cannula 2.0 10/19/17 11:32 36.4 88 18 151/93 (112) 100 Nasal Cannula 2.0 10/19/17 08:00 92 Nasal Cannula 2.0 10/19/17 07:52 36.6 96 16 169/92 (117) 10/19/17 06:40 37.0 99 16 98 1.0 10/19/17 04:00 Room Air 10/19/17 03:48 37.0 99 16 156/81 (106) 98 Nasal Cannula 1.0 10/19/17 00:00 Room Air 10/19/17 00:00 36.6 89 18 130/78 (95) 93 Room Air 10/18/17 20:00 Nasal Cannula 2.0 10/18/17 19:34 36.7 97 20 151/80 (103) 98 Nasal Cannula 2.0 Lab Results: Results Past 24 Hours Test 10/18/17 20:21 10/19/17 07:36 10/19/17 11:21 10/19/17 16:05 Range/Units Bedside Glucose 90 105 107 107 70-90 mg/dl
[2017-10-19] MEDS: ROPINIROLE HCL 0.25 MG TAB PO SCH (20:58)
[2017-10-20] VITALS (9 sets, daily range): BP systolic 130–164; BP diastolic 74–91; PULSE 88–101; TEMP 36.5–36.8; O2SAT 90–94
[2017-10-20] MEDS ORDERED: OLANZAPINE 5 MG TAB PO STA (06:09)
[2017-10-20] MEDS: PANTOprazole SOD 40 MG TAB PO SCH (07:43)
[2017-10-20] MEDS: ENOXAPARIN 40 MG/0.4 ML SYR SQ SCH (07:43)
[2017-10-20] MEDS: METOPROLOL TARTRATE 25 MG TAB OG SCH ×2 (07:43→20:47)
[2017-10-20] MEDS: GABAPENTIN 300 MG CAP PO SCH ×3 (07:44→20:48)
[2017-10-20] MEDS: SERTRALINE HCL 50 MG TAB PO SCH (07:44)
[2017-10-20] MEDS: INSULIN ASPART 100 UNITS/ML 3 ML PEN SC SCH ×4 (07:46→20:32)
[2017-10-20] MEDS: INSULIN GLARGINE SOLOSTAR 100 UNITS/ML 3 ML PEN SC SCH (07:48)
[2017-10-20] MEDS: ASPIRIN 81 MG CHEW NG SCH (09:24)
--- NOTE | 2017-10-20 12:31 | Progress Note ---
Internal Med Progress Note Date of Service: Oct 20, 2017. Provider Documentation: SUBJECTIVE: The patient was seen and examined Successful Extubation 10/16 Denies any symptoms today More anxiety today -having hallucinations 10/19 Much better today Anxiety is improved OBJECTIVE: Vital Signs-as noted below Exam: General-very anxious Eyes-Closed ENT-Normal Neck-Supple Lungs-Clear to auscultate bilaterally Heart-Regular,no murmur Abdomen-Benign,no masses Extremities-No edema Neuro-On vent Response to vocal commands Lab data as noted below. ASSESSMENT & PLAN: ALTERED MENTAL STATUS Patient presented to ED with several day history of progressive confusion associated with jerking of upper and lower extremities. Recent medication changes included discontinuation of sertraline and addition of ropinirole for restless legs. Possible respiratory tract infection with perceived fever, pharyngitis, dyspnea. Also complained of a headache to her daughter. Head CT negative for apparent acute infarct, bleed, mass, etc. Consider encephalopathy secondary to sepsis, although source not apparent from initial evaluation in ED. LP performed by ED physician- no WBC's; RBC's 172 tube # 1 --> 1 tube # 4; glucose 87, protein 53. EEG:Generalized nonspecific Encephalopathy Consider encephalopathy secondary to medications::(amitriptyline, dicyclomine, diphenoxylate / atropine, hydroxyzine, trazodone). Appreciate Psychiatry evaluation and recommendation Transfer to Tele PT/OT evaluation Social service for Discharge planning Not yet ready to be discharged Generalized Anxiety Disorder Having Hallucinations Will observe Needs adjustment of psychiatric medications Much better today Continue current medication ENDOTRACHEAL INTUBATION / MECHANICAL VENTILATION-Extubated Intubated in ED for airway protection. Failed initial weaning trial. Management per Critical Care Medicine. S/P Extubation 10/16 Clinically stable following extubation Denies any symptoms Having low saturation on ambulation Will get 2 steps before discharge No SOB at rest LEUKOCYTOSIS-Improved WBC 17,150 at time of admission. Afebrile. CT of chest demonstrated bibasilar densities, atelectasis versus infiltrate ( atelectasis felt to be most likely per Radiology). No acute findings on CT of abdomen and pelvis. Urinalysis essentially negative. LP as noted above. 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 Blood cultures obtained in ED-Negative Received a dose of ceftriaxone and discontinued Blood and CSF cultures remain negative. HYPERTROPHIC CARDIOMYOPATHY Serum troponin 0.12 --> 0.079. EKG this morning shows normal sinus rhythm at 80/minute, LVH, no acute ST or T- wave abnormalities. 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 Elevated troponin most likely nonspecific elevation due to acute illness and not due to acute coronary syndrome. Cardiology consulted.-appreciate input Hemodynamically stable. Continue metoprolol. No acute issue HYPERTENSION Hemodynamically stable. Continue metoprolol.-controlled DM TYPE 2 Managed with metformin in the past, but no longer taking it. Check Hgb A1C.--6.8 Random glucose 153 in ED. Glucose this morning 169. Follow blood sugars and manage per protocol. GI / NUTRITION Pantoprazole for GI prophylaxis. Enteral feedings- Fibersource via GT. Tolerating regular diet DEPRESSION / CHRONIC PAIN / RESTLESS LEGS Most home meds on hold. Was tapering sertraline; consider restarting when neuro status improves to avoid withdrawal. VTE PROPHYLAXIS No anticoagulants initially due to LP. SCD's --> enoxaparin. DISPOSITION Critically ill. Admit to ICU. Discharge disposition to be determined. May need skilled care or rehab. Family Medicine follow-up with Dr. Suad De León. Likely home in a day or two Vital Signs: Date Time Temp Pulse Resp B/P (MAP) Pulse Ox O2 Delivery O2 Flow Rate FiO2 10/20/17 12:00 Room Air 10/20/17 11:14 36.5 89 18 130/75 (93) 92 10/20/17 08:00 Room Air 10/20/17 07:41 36.5 89 18 131/74 (93) 94 Room Air 10/20/17 04:59 36.8 88 18 146/77 (100) 90 Room Air 10/20/17 04:00 90 Room Air 1.0 50 10/20/17 00:00 90 Room Air 1.0 50 10/19/17 23:50 36.5 86 20 154/81 (105) 92 Room Air 10/19/17 20:19 36.7 101 19 149/75 (99) 90 Room Air 10/19/17 20:00 90 Nasal Cannula 1.0 10/19/17 16:00 90 Nasal Cannula 1.0 10/19/17 15:26 36.8 96 20 168/88 (114) 90 Lab Results: Results Past 24 Hours Test 10/19/17 16:05 10/19/17 20:26 10/20/17 07:39 10/20/17 11:22 Range/Units Bedside Glucose 107 130 108 106 70-90 mg/dl
[2017-10-20] MEDS: ROPINIROLE HCL 0.25 MG TAB PO SCH (20:48)
[2017-10-21] VITALS (8 sets, daily range): BP systolic 118–155; BP diastolic 53–88; PULSE 74–90; TEMP 36.5–36.9; O2SAT 90–95
[2017-10-21] MEDS: SERTRALINE HCL 50 MG TAB PO SCH (08:45)
[2017-10-21] MEDS: PANTOprazole SOD 40 MG TAB PO SCH (08:45)
[2017-10-21] MEDS: GABAPENTIN 300 MG CAP PO SCH ×3 (08:46→20:35)
[2017-10-21] MEDS: METOPROLOL TARTRATE 25 MG TAB OG SCH ×2 (08:46→20:35)
[2017-10-21] MEDS: INSULIN ASPART 100 UNITS/ML 3 ML PEN SC SCH ×4 (08:47→20:35)
[2017-10-21] MEDS: ENOXAPARIN 40 MG/0.4 ML SYR SQ SCH (08:47)
[2017-10-21] MEDS: ASPIRIN 81 MG CHEW NG SCH (08:50)
[2017-10-21] MEDS: INSULIN GLARGINE SOLOSTAR 100 UNITS/ML 3 ML PEN SC SCH (08:52)
--- NOTE | 2017-10-21 12:49 | Progress Note ---
Internal Med Progress Note Date of Service: Oct 21, 2017. Provider Documentation: SUBJECTIVE: The patient was seen and examined Successful Extubation 10/16 Denies any symptoms today More anxiety today -having hallucinations 10/19 Anxiety is improved-has had a long discussion with the 10/20/17 A lot better today OBJECTIVE: Vital Signs-as noted below Exam: General-very anxious Eyes-Closed ENT-Normal Neck-Supple Lungs-Clear to auscultate bilaterally Heart-Regular,no murmur Abdomen-Benign,no masses Extremities-No edema Neuro-On vent Response to vocal commands Lab data as noted below. ASSESSMENT & PLAN: Generalized Anxiety Disorder Kirkpatrick been having Hallucinations Needs adjustment of psychiatric medications -appreciated Hallucinations and MARK much better 10/21 Discussed with the and the patient in detailed Likely to be discharged tomorrow ALTERED MENTAL STATUS-back to baseline Patient presented to ED with several day history of progressive confusion associated with jerking of upper and lower extremities. Recent medication changes included discontinuation of sertraline and addition of ropinirole for restless legs. Possible respiratory tract infection with perceived fever, pharyngitis, dyspnea. Also complained of a headache to her daughter. Head CT negative for apparent acute infarct, bleed, mass, etc. Consider encephalopathy secondary to sepsis, although source not apparent from initial evaluation in ED. LP performed by ED physician- no WBC's; RBC's 172 tube # 1 --> 1 tube # 4; glucose 87, protein 53. EEG:Generalized nonspecific Encephalopathy Consider encephalopathy secondary to medications::(amitriptyline, dicyclomine, diphenoxylate / atropine, hydroxyzine, trazodone). Appreciate Psychiatry evaluation and recommendation Transfer to Tele PT/OT evaluation Social service for Discharge planning Likely to be discharged tomorrow ENDOTRACHEAL INTUBATION / MECHANICAL VENTILATION-Extubated Intubated in ED for airway protection. Failed initial weaning trial. Management per Critical Care Medicine. S/P Extubation 10/16 Clinically stable following extubation Denies any symptoms Having low saturation on ambulation Will get 2 steps before discharge No SOB at rest LEUKOCYTOSIS-Improved WBC 17,150 at time of admission. Afebrile. CT of chest demonstrated bibasilar densities, atelectasis versus infiltrate ( atelectasis felt to be most likely per Radiology). No acute findings on CT of abdomen and pelvis. Urinalysis essentially negative. LP as noted above. 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 Blood cultures obtained in ED-Negative Received a dose of ceftriaxone and discontinued Blood and CSF cultures remain negative. HYPERTROPHIC CARDIOMYOPATHY Serum troponin 0.12 --> 0.079. EKG this morning shows normal sinus rhythm at 80/minute, LVH, no acute ST or T- wave abnormalities. 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 Elevated troponin most likely nonspecific elevation due to acute illness and not due to acute coronary syndrome. Cardiology consulted.-appreciate input Hemodynamically stable. Continue metoprolol. No acute issue HYPERTENSION Hemodynamically stable. Continue metoprolol.-controlled DM TYPE 2 Managed with metformin in the past, but no longer taking it. Check Hgb A1C.--6.8 Random glucose 153 in ED. Glucose this morning 169. Follow blood sugars and manage per protocol. GI / NUTRITION Pantoprazole for GI prophylaxis. Enteral feedings- Fibersource via GT. Tolerating regular diet DEPRESSION / CHRONIC PAIN / RESTLESS LEGS Most home meds on hold. Was tapering sertraline; consider restarting when neuro status improves to avoid withdrawal. VTE PROPHYLAXIS No anticoagulants initially due to LP. SCD's --> enoxaparin. DISPOSITION Critically ill. Admit to ICU. Discharge disposition to be determined. May need skilled care or rehab. Family Medicine follow-up with Dr. Suad De León. Likely home in a day or two Vital Signs: Date Time Temp Pulse Resp B/P (MAP) Pulse Ox O2 Delivery O2 Flow Rate FiO2 10/21/17 12:09 36.7 74 18 118/53 (74) 93 Room Air 10/21/17 08:00 Room Air 10/21/17 07:39 36.7 81 18 134/76 (95) 94 Room Air 10/21/17 04:30 36.9 81 18 146/75 (98) 92 Room Air 10/21/17 04:00 90 Room Air 1.0 50 10/21/17 00:00 90 Room Air 1.0 50 10/20/17 22:49 36.7 93 18 162/84 (110) 94 Room Air 10/20/17 20:00 90 Room Air 1.0 50 10/20/17 19:22 36.6 101 18 164/91 (115) 94 Room Air 10/20/17 16:00 Room Air 10/20/17 15:56 36.6 89 18 135/79 (97) 93 Room Air Lab Results: Results Past 24 Hours Test 10/20/17 16:16 10/20/17 20:09 10/21/17 07:32 10/21/17 11:28 Range/Units Bedside Glucose 97 107 111 102 70-90 mg/dl Microbiology Results 10/20/17 C.difficile Toxin B Gene (PCR) - Final, Complete No C. difficile toxin B gene detected
[2017-10-21] MEDS: ROPINIROLE HCL 0.25 MG TAB PO SCH (20:35)
[2017-10-22] VITALS (8 sets, daily range): BP systolic 151–184; BP diastolic 72–100; PULSE 75–116; TEMP 36.3–36.9; O2SAT 92–95
[2017-10-22 06:10] LABS: HEMATOCRIT 37.2 % (37-47); MEAN CELL VOLUME 88.2 fL (80-100); MEAN CORPUSCULAR HEMOGLOBIN 27.3 pg (25-34); MEAN CORPUSCULAR HGB CONC 30.9 g/dl (32-36); PLATELET COUNT 257 K/uL (130-400); RED BLOOD COUNT 4.22 M/uL (4.2-5.4); WHITE BLOOD COUNT 8.15 K/uL (4.8-10.8)
[2017-10-22] MEDS: INSULIN ASPART 100 UNITS/ML 3 ML PEN SC SCH ×3 (06:30→16:30)
[2017-10-22 06:38] LABS: BUN/CREATININE RATIO 18.7 (10-20); CALCIUM 8.2 mg/dl (8.5-10.1); CREATININE 0.98 mg/dl (0.60-1.20); MAGNESIUM 2.3 mg/dl (1.8-2.4); POTASSIUM 3.7 mmol/L (3.5-5.1)
[2017-10-22] MEDS: METOPROLOL TARTRATE 25 MG TAB OG SCH (07:35)
[2017-10-22] MEDS: GABAPENTIN 300 MG CAP PO SCH ×2 (07:35→14:08)
[2017-10-22] MEDS: SERTRALINE HCL 50 MG TAB PO SCH (07:35)
[2017-10-22] MEDS: PANTOprazole SOD 40 MG TAB PO SCH (07:35)
[2017-10-22] MEDS: ASPIRIN 81 MG CHEW NG SCH (07:38)
[2017-10-22] MEDS: INSULIN GLARGINE SOLOSTAR 100 UNITS/ML 3 ML PEN SC SCH (07:41)
[2017-10-22] MEDS: ENOXAPARIN 40 MG/0.4 ML SYR SQ SCH (09:00)
--- NOTE | 2017-10-22 14:49 | Progress Note ---
Internal Med Progress Note Date of Service: Oct 22, 2017. Provider Documentation: SUBJECTIVE: The patient was seen and examined Successful Extubation 10/16 Denies any symptoms today More anxiety today -having hallucinations 10/19 Anxiety is improved-has had a long discussion with the 10/20/17 Discussed with the Psychiatrist and the patient Will go home today OBJECTIVE: Vital Signs-as noted below Exam: General-Anxiety is decreased today Has minimal jittery Eyes-Closed ENT-Normal Neck-Supple Lungs-Clear to auscultate bilaterally Heart-Regular,no murmur Abdomen-Benign,no masses Extremities-No edema Neuro-On vent Response to vocal commands Lab data as noted below. ASSESSMENT & PLAN: Generalized Anxiety Disorder Kirkpatrick been having Hallucinations Needs adjustment of psychiatric medications -appreciated Hallucinations and MARK much better 10/21 Discussed with the and the patient in detailed Evaluated by the psychiatrist toady and cleared to go home ALTERED MENTAL STATUS-back to baseline Patient presented to ED with several day history of progressive confusion associated with jerking of upper and lower extremities. Recent medication changes included discontinuation of sertraline and addition of ropinirole for restless legs. Possible respiratory tract infection with perceived fever, pharyngitis, dyspnea. Also complained of a headache to her daughter. Head CT negative for apparent acute infarct, bleed, mass, etc. Consider encephalopathy secondary to sepsis, although source not apparent from initial evaluation in ED. LP performed by ED physician- no WBC's; RBC's 172 tube # 1 --> 1 tube # 4; glucose 87, protein 53. EEG:Generalized nonspecific Encephalopathy Consider encephalopathy secondary to medications::(amitriptyline, dicyclomine, diphenoxylate / atropine, hydroxyzine, trazodone). Appreciate Psychiatry evaluation and recommendation Transfer to Tele PT/OT evaluation Social service for Discharge planning ENDOTRACHEAL INTUBATION / MECHANICAL VENTILATION-Extubated Intubated in ED for airway protection. Failed initial weaning trial. Management per Critical Care Medicine. S/P Extubation 10/16 Clinically stable following extubation Denies any symptoms Having low saturation on ambulation Will get 2 steps before discharge No SOB at rest LEUKOCYTOSIS-Improved WBC 17,150 at time of admission. Afebrile. CT of chest demonstrated bibasilar densities, atelectasis versus infiltrate ( atelectasis felt to be most likely per Radiology). No acute findings on CT of abdomen and pelvis. Urinalysis essentially negative. LP as noted above. [employer] swab for influenza A/B PCR neg. Blood cultures obtained in ED-Negative Received a dose of ceftriaxone and discontinued Blood and CSF cultures remain negative. HYPERTROPHIC CARDIOMYOPATHY Serum troponin 0.12 --> 0.079. EKG this morning shows normal sinus rhythm at 80/minute, LVH, no acute ST or T- wave abnormalities. 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 Elevated troponin most likely nonspecific elevation due to acute illness and not due to acute coronary syndrome. Cardiology consulted.-appreciate input Hemodynamically stable. Continue metoprolol. No acute issue with this HYPERTENSION Hemodynamically stable. Continue metoprolol.-controlled At higher side but expected to improve DM TYPE 2 Managed with metformin in the past, but no longer taking it. Check Hgb A1C.--6.8 Random glucose 153 in ED. Glucose this morning 169. Follow blood sugars and manage per protocol. GI / NUTRITION Pantoprazole for GI prophylaxis. Enteral feedings- Fibersource via GT. Tolerating regular diet DEPRESSION / CHRONIC PAIN / RESTLESS LEGS Most home meds on hold. Was tapering sertraline; consider restarting when neuro status improves to avoid withdrawal. VTE PROPHYLAXIS No anticoagulants initially due to LP. SCD's --> enoxaparin. DISPOSITION Critically ill. Admit to ICU. Discharge disposition to be determined. May need skilled care or rehab. Family Medicine follow-up with Dr. Suad De León. Discharge today -discussed with the Vital Signs: Date Time Temp Pulse Resp B/P (MAP) Pulse Ox O2 Delivery O2 Flow Rate FiO2 10/22/17 12:25 93 Room Air 10/22/17 11:49 36.9 76 18 184/72 (109) 95 Room Air 10/22/17 11:04 75 95 10/22/17 08:19 93 Room Air 10/22/17 07:38 36.4 116 20 151/98 (115) 93 Room Air 158/100 (119) 10/22/17 04:31 81 18 160/75 (103) 92 Room Air 10/22/17 04:10 Room Air 10/22/17 00:07 Room Air 10/21/17 23:48 36.8 77 18 136/79 (98) 92 Room Air 10/21/17 20:00 Room Air 10/21/17 18:52 36.8 90 18 153/88 (109) 90 Room Air 10/21/17 16:00 Room Air 10/21/17 15:32 36.5 87 16 155/82 (106) 95 Room Air Lab Results: Results Past 24 Hours Test 10/21/17 16:09 10/21/17 19:57 10/22/17 05:35 10/22/17 07:39 Range/Units Bedside Glucose 131 144 108 70-90 mg/dl White Blood Count 8.15 4.8-10.8 K/uL Red Blood Count 4.22 4.2-5.4 M/uL Hemoglobin 11.5 12.0-16.0 g/dL Hematocrit 37.2 37-47 % Mean Corpuscular Volume 88.2 80-100 fL Mean Corpuscular Hemoglobin 27.3 25-34 pg Mean Corpuscular Hemoglobin Concent 30.9 32-36 g/dl RDW Standard Deviation 52.1 36.4-46.3 fL RDW Coefficient of Variation 16.3 11.5-14.5 % Platelet Count 257 130-400 K/uL Mean Platelet Volume 9.0 7.4-10.4 fL Sodium Level 142 136-145 mmol/L Potassium Level 3.7 3.5-5.1 mmol/L Chloride Level 111 98-107 mmol/L Carbon Dioxide Level 26 21-32 mmol/L Anion Gap 5.0 3-11 mmol/L Blood Urea Nitrogen 18 7-18 mg/dl Creatinine 0.98 0.60-1.20 mg/dl Est Creatinine Clear Calc Drug Dose 55.6 ml/min Estimated GFR () 73.2 Estimated GFR (Non- 63.1 BUN/Creatinine Ratio 18.7 10-20 Random Glucose 127 70-99 mg/dl Calcium Level 8.2 8.5-10.1 mg/dl Magnesium Level 2.3 1.8-2.4 mg/dl Test 10/22/17 11:38 Range/Units Bedside Glucose 107 70-90 mg/dl
--- NOTE | 2017-10-22 16:42 | Discharge Instructions ---
Discharge Instructions Date of Service Oct 22, 2017. Admission Reason for Admission: Altered Mental Status Discharge Discharge Diagnosis / Problem: AMS-resolved to baseline,MARK-Depression, Hypertrophic Cardiomyopathy Discharge Goals Goal(s): Prevent Disease Progression Activity Recommendations Activity Limitations: resume your previous activity Please take precaution to avoid fall . Instructions / Follow-Up Instructions / Follow-Up Dr Alvaro De León on 10/26/17 10:15AM.Please keep appointment with your Psychiatrist. Current Hospital Diet Patient's current hospital diet: Diabetes Type 2 Diet Discharge Diet Recommended Diet: Diabetes Type 2 Diet Pending Studies Studies pending at discharge: no Laboratory Results Hemoglobin A1c Test 10/14/17 12:42 Range/Units Estimated Average Glucose 148 mg/dl Hemoglobin A1c 6.8 H 4.5-5.6 % Medical Emergencies . Who to Call and When: Medical Emergencies: If at any time you feel your situation is an emergency, please call 911 immediately. . Non-Emergent Contact Non-Emergency issues call your: Primary Care Provider . Past History Medical & Surgical History: (1) Acute respiratory failure (2) HOCM (hypertrophic obstructive cardiomyopathy) (3) Hypertension (4) Diabetes mellitus, type 2 (5) Altered mental status (6) Depression (7) Status post partial resection of colon (8) History of colostomy reversal (9) Status post appendectomy (10) Status post internal cardiac defibrillator procedure . "Provider Documentation" section prepared by Mariana Emmanuel. . VTE Core Measure Inpt VTE Proph given/why not?: SCD's
--- NOTE | 2017-10-23 10:42 | Discharge Summary ---
Discharge Summary Date of Service Oct 23, 2017. Discharge Summary Admission Date: Oct 13, 2017 at 18:06 Discharge Date: Oct 22, 2017 Discharge Disposition: Home Principal Diagnosis: AMS-resolved to baseline,MARK-Depression,Hypertrophic Cardiomyopathy Secondary Diagnoses/Problems: Please see H&P and Hospital Progress note Consultations: Cardiology,Psychiatry and [employer] Feeder Medication Reconciliation Continued Medications: Aspirin (Aspirin Ec) 81 Mg Tab 81 MG PO QAM Diphenoxylate/Atropine (Lomotil) Tab 1 TAB PO DIRECTED PRN for Diarrhea, TAB Duloxetine HCl (Duloxetine HCl) 60 Mg Cap 60 MG PO HS Fluticasone Propionate (Flovent Hfa) 120 Puffs/5280 Mcg Aero 2 PUFFS INH BID for 30 Days, #10.6 GM 2 Refills Gabapentin (Gabapentin) 300 Mg Cap 600 MG PO TID Lorazepam (Lorazepam) 0.5 Mg Tab 0.5 MG PO Q6H PRN for Anxiety Metoprolol Succinate (Toprol Xl) 25 Mg Tabcr 25 MG PO LUNCH, #30 TAB Omeprazole (Prilosec) 40 Mg Cap 40 MG PO DAILY Ropinirole Hydrochloride (Requip) 0.5 Mg Tab 0.5 MG PO HS, TAB Sertraline HCl (Sertraline HCl) 100 Mg Tab 50 MG PO DAILY Daily for 4-5 days only and then stop. Sumatriptan Succinate (Imitrex) 25 Mg Tab 25 MG PO PRN PRN for Migraine, TAB Discontinued Medications: Amitriptyline HCl (Amitriptyline HCl) 50 Mg Tab 50 MG PO HS Dicyclomine Hcl (Bentyl) 10 Mg Cap 10 MG PO TID, CAP Hydroxyzine Pamoate (Vistaril) 25 Mg Cap 25 MG PO HS Trazodone Hcl (Trazodone) 50 Mg Tab 100 MG PO HS Admission Information HPI (per Admitting provider): 57 YO female followed by Dr. Suad De León for Family Medicine. History of hypertrophic cardiomyopathy, hypertension. DM type 2, depression, perforated diverticular disease with sepsis 2013, UTI with confusion and sepsis Dec 2016, and other problems noted below. Seen in clinic 10/02/17. Main complaints at that time were depression and insomnia. She was weaned off sertraline and her trazodone was continued; ropinirole was also started for restless legs. Family has noted increasing confusion over the last 1-2 weeks as well as abnormal jerking of arms and legs. Patient told her daughter that she felt warm, but highest temp was around 99. Complained of headache, pharyngitis, back pain, leg pain, trouble breathing. Brought to ED for evaluation. In the ED she was very uncomfortable and restless. Received IV lorazepam and benztropine. Became less responsive and had to be intubated for airway protection. Past Medical/Surgical History Chronic and Resolved Medical Problems: (1) Depression Status: Chronic (2) Diabetes mellitus, type 2 Status: Chronic (3) Diverticulitis Permanent Comment: with perforation and septic shock 2013 Status: Resolved (4) History of colostomy reversal Status: Resolved (5) HOCM (hypertrophic obstructive cardiomyopathy) Status: Chronic (6) Hydronephrosis of right kidney Status: Chronic (7) Hypertension Status: Chronic (8) Pancreatic cyst Status: Chronic (9) Sleep apnea Status: Chronic Surgical Problems: (1) History of colostomy reversal Permanent Comment: 04/19/15 Status: Chronic (2) S/P appendectomy Status: Resolved (3) Status post appendectomy Status: Chronic (4) Status post internal cardiac defibrillator procedure Permanent Comment: 2014 Status: Chronic (5) Status post partial resection of colon Permanent Comment: diverticulitis 11/05/14 Status: Chronic . Family History FATHER Hypertrophic cardiomyopathy MOTHER Hyperlipidemia DAUGHTER Seizure disorder DAUGHTER Gastric cancer Social History Smoking Status: Never Smoker Alcohol Use: none Drug Use: none Marital Status: Housing status: lives with family Occupational Status: employed Immunizations History of Influenza Vaccine: Yes History of Pneumococcal: Yes Allergies Coded Allergies: Adhesives (Unverified Allergy, Intermediate, blistering, 05/04/17) Sulfa Antibiotics (Verified Allergy, Intermediate, swelling, 05/04/17) Doxycycline (Verified Allergy, Unknown, UNKNOWN, 05/04/17) Penicillins (Verified Allergy, Unknown, ZOSYN = FLUSHED FASE, ITCHING, ) FLUSHED FACE, ITCHING TOLERATED PRIMAXIN 2013 ADMISSION Home Medications Scheduled Amitriptyline HCl (Amitriptyline HCl), 50 MG PO HS Aspirin (Aspirin Ec), 81 MG PO QAM Dicyclomine Hcl (Bentyl), 10 MG PO TID Duloxetine HCl (Duloxetine HCl), 60 MG PO HS Fluticasone Propionate (Flovent Hfa), 2 PUFFS INH BID Gabapentin (Gabapentin), 600 MG PO TID Hydroxyzine Pamoate (Vistaril), 25 MG PO HS Metoprolol Succinate (Toprol Xl), 25 MG PO LUNCH Omeprazole (Prilosec), 40 MG PO DAILY Ropinirole Hydrochloride (Requip), 0.5 MG PO HS Sertraline HCl (Sertraline HCl), 150 MG PO DAILY Trazodone Hcl (Trazodone), 100 MG PO HS Scheduled PRN Diphenoxylate/Atropine (Lomotil), 1 TAB PO DIRECTED PRN for Diarrhea Lorazepam (Lorazepam), 0.5-1 MG PO Q6H PRN for Anxiety Sumatriptan Succinate (Imitrex), 25 MG PO PRN PRN for Migraine Review of Systems Unable to obtain due to neurologic status. . Physical Ex - H&P Physical Exam Vital Signs Date Time Temp Pulse Resp B/P (MAP) Pulse Ox O2 Delivery O2 Flow Rate FiO2 10/13/17 17:02 87 10/13/17 16:26 100 10/13/17 16:20 100 10/13/17 16:03 98 10/13/17 15:34 103 10/13/17 15:33 98 26 165/98 97 Oxymask 15.0 10/13/17 15:31 74 Room Air 10/13/17 13:10 37.3 102 18 155/75 98 Room Air General Appearance: + obese Head: atraumatic Eyes: PERRL, EOMI, sclerae normal ENT: + pertinent finding (oral ETT) Neck: supple, no adenopathy, thyroid normal, trachea midline, + pertinent finding (exam limited due to body habitus; left IJ central venous catheter) Respiratory/Chest: + pertinent finding (few scattered rhonchi, equal breath sounds) Cardiovascular: regular rate, rhythm, + systolic murmur (II/ sys murmur at base) Abdomen/GI: + pertinent finding (quiet bowel sounds, soft, nontender, well- healed scars) Extremities/Musculoskelatal: no calf tenderness, no pedal edema, + pertinent finding (cyanosis of toes; pedal pulses intact) Neurologic/Psych: + pertinent finding (sedated on vent; pupils 3 mm, reactive; myotonic jerking of all 4 extremities; plantar reflexes downgoing) Skin: warm/dry Lymphatic: + pertinent finding (no cervical adenopathy appreciated, but exam limited) Diagnostics - H&P Diagnostics Laboratory Results Results Past 24 Hours Test 10/13/17 14:44 10/13/17 15:38 10/13/17 15:42 10/13/17 16:15 Range/Units White Blood Count 17.15 4.8-10.8 K/uL Red Blood Count 4.93 4.2-5.4 M/uL Hemoglobin 13.9 12.0-16.0 g/dL Hematocrit 42.1 37-47 % Mean Corpuscular Volume 85.4 80-100 fL Mean Corpuscular Hemoglobin 28.2 25-34 pg Mean Corpuscular Hemoglobin Concent 33.0 32-36 g/dl Platelet Count 215 130-400 K/uL Mean Platelet Volume 9.4 7.4-10.4 fL Neutrophils (%) (Auto) 85.8 % Lymphocytes (%) (Auto) 7.3 % Monocytes (%) (Auto) 5.6 % Eosinophils (%) (Auto) 0.8 % Basophils (%) (Auto) 0.2 % Neutrophils # (Auto) 14.72 1.4-6.5 K/uL Lymphocytes # (Auto) 1.25 1.2-3.4 K/uL Monocytes # (Auto) 0.96 0.11-0.59 K/uL Eosinophils # (Auto) 0.13 0-0.5 K/uL Basophils # (Auto) 0.04 0-0.2 K/uL RDW Standard Deviation 47.0 36.4-46.3 fL RDW Coefficient of Variation 15.4 11.5-14.5 % Immature Granulocyte % (Auto) 0.3 % Immature Granulocyte # (Auto) 0.05 0.00-0.02 K/uL Sodium Level 142 136-145 mmol/L Potassium Level 4.1 3.5-5.1 mmol/L Chloride Level 104 98-107 mmol/L Carbon Dioxide Level 25 21-32 mmol/L Anion Gap 13.0 3-11 mmol/L Blood Urea Nitrogen 17 7-18 mg/dl Creatinine 1.19 0.60-1.20 mg/dl Est Creatinine Clear Calc Drug Dose 46.8 ml/min Estimated GFR () 57.9 Estimated GFR (Non- 49.9 BUN/Creatinine Ratio 14.2 10-20 Random Glucose 153 70-99 mg/dl Calcium Level 9.4 8.5-10.1 mg/dl Total Creatine Kinase 148 26-192 U/L Creatine Kinase MB 6.0 0.5-3.6 ng/ml Creatine Kinase MB Ratio 4.1 0-3.0 Lipase 119 73-393 U/L Bedside Glucose 225 70-90 mg/dl Urine Color YELLOW Urine Appearance CLEAR CLEAR Urine pH 6.0 4.5-7.5 Urine Specific Mcque[place]y 1.018 1.000-1.030 Urine Protein 3+ NEG Urine Glucose (UA) NEG NEG Urine Ketones NEG NEG Urine Occult Blood TRACE NEG Urine Nitrite NEG NEG Urine Bilirubin NEG NEG Urine Urobilinogen NEG NEG Urine Leukocyte Esterase NEG NEG Urine WBC (Auto) 1-5 0-5 /hpf Urine RBC (Auto) 0-4 0-4 /hpf Urine Hyaline Casts (Auto) 1-5 0-5 /lpf Urine Epithelial Cells (Auto) 10-20 0-5 /lpf Urine Bacteria (Auto) NEG NEG Urine Opiates Screen NEG NEG Urine Methadone, Qualitative NEG NEG Urine Barbiturates NEG NEG Urine Phencyclidine (PCP) Level NEG NEG Ur Amphetamine/Methamphetamine NEG NEG MDMA (Ecstasy) Screen NEG NEG Urine Benzodiazepines Screen NEG NEG Urine Cocaine Metabolite NEG NEG Urine Marijuana (THC) NEG NEG Test 10/13/17 16:50 10/13/17 16:52 10/13/17 17:19 Range/Units Bedside Troponin I 0.080 0-0.045 ng/ml Bedside Lactic Acid Venous 0.92 0.90-1.70 mmol/L Venous Blood pH 7.33 7.36-7.41 Venous Blood Partial Pressure CO2 45 38.0-50.0 mmHg Venous Blood Partial Pressure O2 54 mmHg Venous Blood HCO3 23 mmol/L Venous Blood Oxygen Saturation 83.5 % Venous Blood Base Excess -3.0 mEq/L Microbiology Results 10/13/17 Blood Culture, Received Pending 10/13/17 Blood Culture, Received Pending Diagnostic Radiology CT OF THE HEAD WITHOUT CONTRAST FINDINGS: This exam is moderately compromised by motion artifact. No acute intracranial hemorrhage, midline shift or mass effect is present. Ventricular system is stable. Basilar cisterns are patent. There are no extra axial collections. White matter hypodensities are unchanged. Sensitivity for detection of calvarial fractures is diminished but none are identified. Minimal layering secretions within the right maxillary sinus are noted. IMPRESSION: 1. Study moderately compromise by motion artifact. No acute intracranial findings identified. 2. Decreased sensitivity for detection of calvarial fractures given motion artifact but none identified. Electronically signed by: Phil Devries M.D. 10/13/2017 3:55 PM Dictated Date/Time: 10/13/2017 3:52 PM THORACIC SPINE WITHOUT FINDINGS: Alignment of the thoracic spine is anatomic. Vertebral body heights are maintained. Disc spaces are preserved. There is mild endplate osteophytosis. Central canal and neural foramen are suboptimally assessed by CT. There is a small central disc protrusion with calcification at T9-T10. Interlobular septal thickening within the lungs represent pulmonary edema. Groundglass opacities also suggest pulmonary edema. Heart is moderately enlarged. Pacer leads are partially imaged. There may be trace effusions. IMPRESSION: 1. No acute thoracic spine fracture or subluxation. 2. Mild multilevel degenerative disc disease with a small central disc protrusion at T9-T10. 3. Moderate pulmonary edema. Electronically signed by: Phil Devries M.D. 10/13/2017 4:01 PM Dictated Date/Time: 10/13/2017 3:[address] FINDINGS: This exam is mildly compromised by motion artifact. This decreases the sensitivity for detection of nondisplaced fractures but no acute lumbar spine fracture is identified. Alignment is anatomic. Vertebral body heights are maintained. There is mild disc space narrowing with osteophytosis and vacuum disc phenomenon at T12-L1. Right collecting system dilatation was shown on previous imaging studies. This is diminished when compared to study of February 07, 2017. IMPRESSION: 1. No acute lumbar spine fracture or subluxation. Study mildly compromised by motion artifact. 2. Mild multilevel degenerative disc disease and facet arthrosis. Electronically signed by: Phil Devries M.D. 10/13/2017 4:05 PM Dictated Date/Time: 10/13/2017 4:[address] ANGIOGRAPHY OF THE CHEST, PULMONARY EMBOLUS PROTOCOL FINDINGS: No pulmonary emboli are identified. The tip of the endotracheal tube is 2.8 cm above the tisha. The heart is moderately enlarged with concentric left ventricular hypertrophy. There is no pericardial effusion. A few prominent mediastinal lymph nodes are noted. These are likely benign. There is moderate coronary artery calcification. Trace bilateral pleural effusions, right larger than left, are noted. There is no pneumothorax. The tip of the left internal jugular central line is within the left brachiocephalic vein. Interlobular septal thickening and groundglass opacities suggest pulmonary edema. Bilateral lower lobe opacities favor atelectasis. A right subclavian pacer/AICD is in place. The abdomen and pelvis CT will be reported separately. IMPRESSION: 1. No pulmonary emboli identified. 2. Findings consistent with moderate pulmonary edema. Trace bilateral pleural effusions. 3. Dependent airspace opacities within the lungs which favor atelectasis. 4. Moderate cardiomegaly with left ventricular hypertrophy. 5. Tip of endotracheal tube 2.8 cm above the tisha. Electronically signed by: Phil Devries M.D. 10/13/2017 6:14 PM Dictated Date/Time: 10/13/2017 6:[address] OF THE ABDOMEN AND PELVIS WITH CONTRAST FINDINGS: The chest will be reported separately. No pneumatosis, free air or portal venous gas is present. Mild splenomegaly is unchanged. There is fatty infiltration of the liver. The main, left and right portal veins are patent. The 2.5 cm cystic lesion within the pancreatic head is unchanged since CT of February 07, 2017. There is no biliary or pancreatic ductal dilatation. Right hydronephrosis is unchanged and suggests a congenital UPJ type obstruction. Postsurgical findings involving the anterior abdominal wall with a small amount of fluid are unchanged. A Gerard pouch is noted. There is no bowel obstruction. No lymphadenopathy is present. There are no suspicious osseous lesions. A Guaman balloon is present within the bladder. There is minimal infiltration gas within the left groin. No peripancreatic or pericholecystic infiltration is noted. There is no bowel obstruction. IMPRESSION: 1. No acute process within the abdomen or pelvis. 2. Stable 2.5 cm cystic lesion within the pancreatic head. This remains indeterminate. 3. Minimal gas and infiltration within the left groin which may be postprocedural. 4. 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 Electronically signed by: Phil Devries M.D. 10/13/2017 6:20 PM Dictated Date/Time: 10/13/2017 6:14 PM CHEST ONE VIEW PORTABLE FINDINGS: The tip of the endotracheal tube is 1.3 cm above the tisha. A dual lead right-sided pacer/AICD is in place. Cardiomegaly is unchanged. There is mild pulmonary edema. There is no pneumothorax or pleural effusion. IMPRESSION: 1. Tip of endotracheal tube 1.3 cm above the tisha. The tube could be withdrawn 1.5 cm. 2. Mild pulmonary edema. 3. No pneumothorax. Electronically signed by: Phil Devries M.D. 10/13/2017 4:54 PM Dictated Date/Time: 10/13/2017 4:53 PM CHEST ONE VIEW PORTABLE FINDINGS: The endotracheal tube has been slightly withdrawn. The tip is 2.5 cm above the tisha. There has been interval placement of a left internal jugular central line. Catheter tip projects over the left brachycephalic vein. Cardiomegaly is unchanged. Sensitivity for detection of pneumothorax is diminished on this supine exam but no pneumothorax is identified. A dual lead right subclavian pacer/AICD is in place. There is persistent pulmonary edema. IMPRESSION: 1. No pneumothorax following placement of a left internal jugular central line. Catheter tip projects over the left brachiocephalic vein. 2. Satisfactory positioning of the endotracheal tube. 3. Persistent mild pulmonary edema. Electronically signed by: Phil Devries M.D. 10/13/2017 5:40 PM Dictated Date/Time: 10/13/2017 5:38 PM . Impression - H&P Impression Assessment and Plan ALTERED MENTAL STATUS Patient presents to ED with several day history of progressive confusion associated with jerking of upper and lower extremities. Recent medication changes included discontinuation of sertraline and addition of ropinirole for restless legs. Possible respiratory tract infection with perceived fever, pharyngitis, dyspnea. Also complained of a headache to her daughter. Head CT negative for apparent acute infarct, bleed, mass, etc. Leukocytosis noted. Consider encephalopathy secondary to sepsis, although source not apparent from initial evaluation in ED. LP performed by ED physician and results are pending at the time of admission. Check EEG. LEUKOCYTOSIS WBC 17,150. Afebrile in ED. CT of chest demonstrated bibasilar densities, atelectasis versus infiltrate ( atelectasis felt to be most likely per Radiology). No acute findings on CT of abdomen and pelvis. Urinalysis essentially negative. LP performed and results pending. Check REDIPPER swab for influenza A/B. Blood cultures obtained in ED and patient received a dose of ceftriaxone. Further antibiotic coverage to be determined. ENDOTRACHEAL INTUBATION / MECHANICAL VENTILATION Intubated in ED for airway protection. Management per Critical Care Medicine. HYPERTROPHIC CARDIOMYOPATHY Hemodynamically stable. HYPERTENSION Hemodynamically stable. DM TYPE 2 Managed with metformin in the past, but need to clarify if she is still taking it. Random glucose 153. Follow blood sugars and manage per protocol. VTE PROPHYLAXIS No anticoagulants at this time due to LP. SCD's. RESUSCITATION STATUS not aware of any advanced directives. Full code. DISPOSITION Critically ill. Admit to ICU. Discharge disposition to be determined. Family Medicine follow-up with Dr. Suad De León. H&P unsigned and updated to correct home meds. Sertraline being tapered; current dose is 150 mg. Patient is no longer taking metformin. [ROSITA 10/13/17 19:40] . VTE Prophylaxis VTE Risk Assessment Done? Y/N: Yes Risk Level: High Given or contraindicated: SCD's . Physical Exam (per Admitting): General Appearance: + obese Head: atraumatic Eyes: PERRL, EOMI, sclerae normal ENT: + pertinent finding (oral ETT) Neck: supple, no adenopathy, thyroid normal, trachea midline, + pertinent finding (exam limited due to body habitus; left IJ central venous catheter) Respiratory/Chest: + pertinent finding (few scattered rhonchi, equal breath sounds) Cardiovascular: regular rate, rhythm, + systolic murmur (II/ sys murmur at base) Abdomen/GI: + pertinent finding (quiet bowel sounds, soft, nontender, well- healed scars) Extremities/Musculoskelatal: no calf tenderness, no pedal edema, + pertinent finding (cyanosis of toes; pedal pulses intact) Neurologic/Psych: + pertinent finding (sedated on vent; pupils 3 mm, reactive; myotonic jerking of all 4 extremities; plantar reflexes downgoing) Skin: warm/dry Lymphatic: + pertinent finding (no cervical adenopathy appreciated, but exam limited) Hospital Course Generalized Anxiety Disorder Kirkpatrick been having Hallucinations Needs adjustment of psychiatric medications -appreciated Hallucinations and MARK much better 10/21 Discussed with the and the patient in detailed Evaluated by the psychiatrist toady and cleared to go home ALTERED MENTAL STATUS-back to baseline Patient presented to ED with several day history of progressive confusion associated with jerking of upper and lower extremities. Recent medication changes included discontinuation of sertraline and addition of ropinirole for restless legs. Possible respiratory tract infection with perceived fever, pharyngitis, dyspnea. Also complained of a headache to her daughter. Head CT negative for apparent acute infarct, bleed, mass, etc. Consider encephalopathy secondary to sepsis, although source not apparent from initial evaluation in ED. LP performed by ED physician- no WBC's; RBC's 172 tube # 1 --> 1 tube # 4; glucose 87, protein 53. EEG:Generalized nonspecific Encephalopathy Consider encephalopathy secondary to medications::(amitriptyline, dicyclomine, diphenoxylate / atropine, hydroxyzine, trazodone). Appreciate Psychiatry evaluation and recommendation Transfer to Tele PT/OT evaluation Social service for Discharge planning ENDOTRACHEAL INTUBATION / MECHANICAL VENTILATION-Extubated Intubated in ED for airway protection. Failed initial weaning trial. Management per Critical Care Medicine. S/P Extubation 10/16 Clinically stable following extubation Denies any symptoms Having low saturation on ambulation Will get 2 steps before discharge No SOB at rest LEUKOCYTOSIS-Improved WBC 17,150 at time of admission. Afebrile. CT of chest demonstrated bibasilar densities, atelectasis versus infiltrate ( atelectasis felt to be most likely per Radiology). No acute findings on CT of abdomen and pelvis. Urinalysis essentially negative. LP as noted above. REDIPPER swab for influenza A/B PCR neg. Blood cultures obtained in ED-Negative Received a dose of ceftriaxone and discontinued Blood and CSF cultures remain negative. HYPERTROPHIC CARDIOMYOPATHY Serum troponin 0.12 --> 0.079. EKG this morning shows normal sinus rhythm at 80/minute, LVH, no acute ST or T- wave abnormalities. 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 Elevated troponin most likely nonspecific elevation due to acute illness and not due to acute coronary syndrome. Cardiology consulted.-appreciate input Hemodynamically stable. Continue metoprolol. No acute issue with this HYPERTENSION Hemodynamically stable. Continue metoprolol.-controlled At higher side but expected to improve DM TYPE 2 Managed with metformin in the past, but no longer taking it. Check Hgb A1C.--6.8 Random glucose 153 in ED. Glucose this morning 169. Follow blood sugars and manage per protocol. GI / NUTRITION Pantoprazole for GI prophylaxis. Enteral feedings- [employer]ersource via GT. Tolerating regular diet DEPRESSION / CHRONIC PAIN / RESTLESS LEGS Most home meds on hold. Was tapering sertraline; consider restarting when neuro status improves to avoid withdrawal. VTE PROPHYLAXIS No anticoagulants initially due to LP. SCD's --> enoxaparin. DISPOSITION Critically ill. Admit to ICU. Discharge disposition to be determined. May need skilled care or rehab. Family Medicine follow-up with Dr. Suad De León. Discharge today -discussed with the Total time spent on discharge = 40 minutes This includes examination of the patient, discharge planning, medication reconciliation, and communication with other providers. Discharge Instructions Reason for Admission: Altered Mental Status Discharge Discharge Diagnosis / Problem: AMS-resolved to baseline,MARK-Depression, Hypertrophic Cardiomyopathy Discharge Goals Goal(s): Prevent Disease Progression Activity Recommendations Activity Limitations: resume your previous activity Please take precaution to avoid fall . Instructions / Follow-Up Instructions / Follow-Up Dr Alvaro De León on 10/26/17t 10:15AM.Please keep appointment with your Psychiatrist. Current Hospital Diet Patient's current hospital diet: Diabetes Type 2 Diet Discharge Diet Recommended Diet: Diabetes Type 2 Diet Pending Studies Studies pending at discharge: no Laboratory Results Hemoglobin A1c Test 10/14/17 12:42 Range/Units Estimated Average Glucose 148 mg/dl Hemoglobin A1c 6.8 H 4.5-5.6 % Medical Emergencies . Who to Call and When: Medical Emergencies: If at any time you feel your situation is an emergency, please call 911 immediately. . Non-Emergent Contact Non-Emergency issues call your: Primary Care Provider . Past History Medical & Surgical History: (1) Acute respiratory failure (2) HOCM (hypertrophic obstructive cardiomyopathy) (3) Hypertension (4) Diabetes mellitus, type 2 (5) Altered mental status (6) Depression (7) Status post partial resection of colon (8) History of colostomy reversal (9) Status post appendectomy (10) Status post internal cardiac defibrillator procedure . "Provider Documentation" section prepared by Mariana Emmanuel. . VTE Core Measure Inpt VTE Proph given/why not?: SCD's <Electronically signed by Mariana Emmanuel M.D.> Signed: 10/22/17 0030 Additional Copies To Suad De León D.O.
== END 2017-10-22 18:10 | disposition home or self-care (01) | DRG 871 ==
LOC: C.EDB 12:56 → EEVIPCON 18:06 → C.MSICU 18:06 → ENRESERV 18:26 → C.2T 10-17 12:44 → EDBEDREQ 10-19 05:39 → ENRESERV 10-19 05:43 → C.MED 10-19 06:42
PROVIDERS: ADMIT Hospitalist; ATTEND Internal Medicine
PROC: 5A1945Z Respiratory Ventilation, 24-96 Consecutive Hours (ICD-10-PCS; principal; 2017-10-13)
PROC: 0BH17EZ Insertion of Endotracheal Airway into Trachea, Via Natural or Artificial Opening (ICD-10-PCS; principal; 2017-10-13)
PROC: 009U3ZZ Drainage of Spinal Canal, Percutaneous Approach (ICD-10-PCS; 2017-10-13)
PROC: 05HN33Z Insertion of Infusion Device into Left Internal Jugular Vein, Percutaneous Approach (ICD-10-PCS; 2017-10-13)
DX: A41.9 Sepsis, unspecified organism (principal); G93.49 Other encephalopathy; G92 Toxic encephalopathy; J96.01 Acute respiratory failure with hypoxia; I42.1 Obstructive hypertrophic cardiomyopathy; R44.3 Hallucinations, unspecified; J98.11 Atelectasis; Q62.39 Other obstructive defects of renal pelvis and ureter; T44.3X5A Adverse effect of other parasympatholytics [anticholinergics and antimuscarinics] and spasmolytics, initial encounter; F41.1 Generalized anxiety disorder; F32.9 Major depressive disorder, single episode, unspecified; R51 Headache; G89.29 Other chronic pain; M54.5 Low back pain; M54.6 Pain in thoracic spine; J98.8 Other specified respiratory disorders; G25.81 Restless legs syndrome; E11.9 Type 2 diabetes mellitus without complications; I11.9 Hypertensive heart disease without heart failure; E66.9 Obesity, unspecified; Z79.899 Other long term (current) drug therapy; Z79.82 Long term (current) use of aspirin; Z87.19 Personal history of other diseases of the digestive system; Z87.440 Personal history of urinary (tract) infections; Z86.19 Personal history of other infectious and parasitic diseases; Z95.810 Presence of automatic (implantable) cardiac defibrillator; Z68.32 Body mass index [BMI] 32.0-32.9, adult; Z82.49 Family history of ischemic heart disease and other diseases of the circulatory system; Z80.0 Family history of malignant neoplasm of digestive organs; Z83.49 Family history of other endocrine, nutritional and metabolic diseases; Z82.0 Family history of epilepsy and other diseases of the nervous system

== ENCOUNTER 2018-01-31 20:21 | Inpatient (IN) | payer BC ==
[~2018-01-31] VITALS: Ht 152.4 cm; Wt 70.5 kg
[~2018-01-31 20:21] MED LIST changes: -AMT/50 PO; -COLE1TAB PO; -DICY10CA55 PO; +GABA-1219 PO; -GABA1CAP4 PO; -GLC500 PO; -LPT/20 PO; -METO25TA3 PO; +METO25TA4 PO; -MISCCAP80 PO; +OMEP40CA41 PO; -TRAZ50TA35 PO; -VNTHFA/IN INH; +ZLF/100 PO
[2018-01-31] MEDS ORDERED: ALBUTEROL 0.083% NEBU SOLN 3 ML VIAL INH STA (21:01)
[2018-01-31] MEDS ORDERED: METHYLPREDNISOLONE IV 40 MG in SYRINGE 0 ML IV SCH (21:15)
--- NOTE | 2018-01-31 21:24 | DIAGNOSTIC IMAGING REPORT ---
CHEST ONE VIEW PORTABLE HISTORY: 57 years-old Female EVALUATE RESPIRATORY DISTRESS.DYSPNEA acute respiratory distress with dyspnea COMPARISON: Chest radiograph 10/16/2017 TECHNIQUE: Portable AP view of the chest FINDINGS: Cardiac silhouette is again enlarged. Unchanged right pectoral pacer/AICD. Mild pulmonary vascular congestion without overt pulmonary edema. There is no pneumothorax, or pleural effusion. Hazy right basilar opacities are noted. Mild right hemidiaphragmatic elevation. Bones of the chest appear grossly intact. IMPRESSION: 1. Cardiomegaly with mild pulmonary vascular congestion. 2. Right hemidiaphragmatic elevation with right basilar opacities suggesting atelectasis. The above report was generated using voice recognition software. It may contain grammatical, syntax or spelling errors. Electronically signed by: Vidal Jay M.D. 01/31/2018 9:23 PM Dictated Date/Time: 01/31/2018 9:21 PM
[2018-01-31] MEDS ORDERED: ESCI1TAB6 PO (21:57)
[2018-01-31] MEDS ORDERED: MIRT30TA2 PO (22:01)
[2018-01-31] MEDS ORDERED: DICY10CA12 PO (22:03)
[2018-01-31 22:05] LABS: PTT PATIENT 26.8 SECONDS (21.0-31.0)
[2018-01-31 22:17] LABS: HEMATOCRIT 38.6 % (37-47); MEAN CELL VOLUME 82.3 fL (80-100); MEAN CORPUSCULAR HEMOGLOBIN 27.7 pg (25-34); MEAN CORPUSCULAR HGB CONC 33.7 g/dl (32-36); MEAN PLATELET VOLUME 10.2 fL (7.4-10.4); PLATELET COUNT 97 K/uL (130-400); RED CELL DISTRIBUTION WIDTH SD 44.2 fL (36.4-46.3); WHITE BLOOD COUNT 6.01 K/uL (4.8-10.8)
[2018-01-31 22:18] LABS: BASO % 0.2 %; BASO ABS # 0.01 K/uL (0-0.2); EOS % 0.3 %; EOS ABS # 0.02 K/uL (0-0.5); IG# 0.01 K/uL (0.00-0.02); LYMPH % 8.8 %; LYMPH ABS # 0.53 K/uL (1.2-3.4); MONO % 6.5 %; MONO ABS # 0.39 K/uL (0.11-0.59); NEUT ABS # 5.05 K/uL (1.4-6.5)
[2018-01-31 22:19] LABS: INFLUENZA B ANTIGEN Neg for Influ B (NEG)
[2018-01-31 22:23] LABS: ALBUMIN 3.4 gm/dl (3.4-5.0); CALCIUM 8.4 mg/dl (8.5-10.1); CREATININE 0.91 mg/dl (0.60-1.20); POTASSIUM 3.7 mmol/L (3.5-5.1)
[2018-01-31 22:42] LABS: TOTAL PROTEIN 6.6 gm/dl (6.4-8.2)
[2018-01-31] MEDS ORDERED: OSELTAMIVIR PHOSPHATE 75 MG CAP PO STA (22:52)
[2018-01-31] MEDS ORDERED: LEVAQUIN 750MG / 150ML D5W IV STA (22:52)
[2018-01-31] MEDS ORDERED: ASPIRIN 324 MG CHEW PO STA (22:52)
[2018-01-31] MEDS ORDERED: KETOROLAC TROMETHAMINE 30 MG/ML VIAL IV STA (22:55)
[2018-02-01] VITALS (7 sets, daily range): BP systolic 105–146; BP diastolic 58–80; PULSE 74–85; TEMP 36.4–37.1; O2SAT 91–99; Ht 152.4 cm; Wt 70.5 kg
[2018-02-01] MEDS ORDERED: FUROSEMIDE INJ 40 MG in SYRINGE 0 ML IV STA (00:07)
[2018-02-01] MEDS ORDERED: FUROSEMIDE 40 MG/4 ML VIAL IV STA (00:10)
[2018-02-01] MEDS ORDERED: LEVALBUTEROL/IPRATROPIUM NEB INH PRN (00:45)
--- NOTE | 2018-02-01 00:52 | EMERGENCY ROOM VISIT NOTE ---
History Report prepared by Kishoreibelizabeth: Omer Amaya Under the Supervision of: Dr. Jarrod Cedeno D.O. First contact with patient: 20:53 Chief Complaint: SHORTNESS OF BREATH Stated Complaint: SOB,HEADACHE, POSSIBLE MIGRAINE History of Present Illness The patient is a 57 year old female who presents to the Emergency Room with complaints of constant shortness of breath that began two days ago. She rates her discomfort as an 8/10 in severity. The patient states that two days ago she started to experience a productive cough with yellow mucous. She states that upon coughing, she experiences some chest pain. She reports she also began to experience diarrhea, which she admits she has been still experiencing today. The patient states that she has also been experiencing a headache and a sore throat. She reports she had a mild episode of vomiting yesterday but denies any vomiting today. The patient denies abdominal pain, congestion, change in vision , fevers, nausea, pain with urination, and melena. The patient reports a history of asthma and hypertrophic cardiomyopathy. Source of History: patient Onset: two days ago Position: other (global) Symptom Intensity: 8/10 Quality: other (global) Timing: constant Associated Symptoms: + headache, + sorethroat, + cough, + chest pain, + vomiting, + diarrhea, No fevers, No nausea, No abdominal pain, No melena, No urinary symptoms Review of Systems See HPI for pertinent positives & negatives. A total of 10 systems reviewed and were otherwise negative. Past Medical & Surgical Medical Problems: (1) Acute respiratory failure (2) Depression (3) Diabetes mellitus, type 2 (4) Diverticulitis (5) Elevated troponin (6) History of colostomy reversal (7) HOCM (hypertrophic obstructive cardiomyopathy) (8) Hydronephrosis of right kidney (9) Hypertension (10) Pancreatic cyst (11) Restless leg syndrome (12) Sleep apnea (13) Transaminitis Surgical Problems: (1) History of colostomy reversal (2) S/P appendectomy (3) Status post appendectomy (4) Status post internal cardiac defibrillator procedure (5) Status post partial resection of colon Family History Gastric cancer DAUGHTER Hyperlipidemia MOTHER Hypertrophic cardiomyopathy FATHER Seizure disorder DAUGHTER Social History Smoking Status: Never Smoker Drug Use: none Marital Status: Housing Status: lives with family Occupation Status: retired Current/Historical Medications Scheduled Aspirin (Aspirin Ec), 81 MG PO QAM Dicyclomine Hcl (Dicyclomine Hcl), 10 MG PO BID Duloxetine HCl (Duloxetine HCl), 60 MG PO DAILY Escitalopram Oxalate (Lexapro), 5 MG PO HS Fluticasone Propionate (Flovent Hfa), 2 PUFFS INH BID Gabapentin (Gabapentin), 300 MG PO TID Metoprolol Succinate (Toprol Xl), 25 MG PO BID Mirtazapine Soltab (Remeron Soltab), 30 MG PO HS Omeprazole (Prilosec), 40 MG PO DAILY Ropinirole Hydrochloride (Requip), 0.5 MG PO HS Sertraline HCl (Sertraline HCl), 200 MG PO DAILY Scheduled PRN Diphenoxylate/Atropine (Lomotil), 1 TAB PO DIRECTED PRN for Diarrhea Sumatriptan Succinate (Imitrex), 50 MG PO UD PRN for Migraine Allergies Coded Allergies: Adhesives (Unverified Allergy, Intermediate, blistering, 01/31/18) Sulfa Antibiotics (Verified Allergy, Intermediate, swelling, 01/31/18) Doxycycline (Verified Allergy, Unknown, UNKNOWN, 01/31/18) Penicillins (Verified Allergy, Unknown, ZOSYN = FLUSHED FASE, ITCHING, ) FLUSHED FACE, ITCHING TOLERATED PRIMAXIN 2013 ADMISSION Physical Exam Vital Signs Date Time Temp Pulse Resp B/P (MAP) Pulse Ox O2 Delivery O2 Flow Rate FiO2 02/01/18 00:35 92 20 148/79 95 Room Air 01/31/18 23:10 37.0 89 20 164/76 95 Room Air 01/31/18 23:06 90 01/31/18 22:21 95 21 96 01/31/18 22:01 134/94 01/31/18 21:31 161/89 01/31/18 21:24 Room Air 01/31/18 21:21 92 27 94 01/31/18 21:15 164/89 01/31/18 20:26 37.3 98 18 171/99 90 Room Air Physical Exam GENERAL: Sitting up in bed, dry cough, in no acute distress, talking in full sentences. EYE EXAM: normal conjunctiva. OROPHARYNX: no exudate, no erythema, lips, buccal mucosa, and tongue normal and mucous membranes are moist NECK: supple, no nuchal rigidity, no adenopathy, non-tender LUNGS: Wheezing bilaterally. Normal chest wall mechanics CHEST: pacemaker located in upper chest wall HEART: no murmurs, S1 normal and S2 normal ABDOMEN: abdomen soft, non-tender, normo-active bowel sounds, no masses, no rebound or guarding. BACK: Back is symmetrical on inspection and there is no deformity, no midline tenderness, no CVA tenderness. SKIN: no rashes and no bruising UPPER EXTREMITIES: upper extremities are grossly normal. LOWER EXTREMITIES: No pitting edema. Calves are equal bilaterally. NEURO EXAM: Normal sensorium, cranial nerves II-XII grossly intact, normal speech, no gross weakness of arms, no gross weakness of legs. Gross sensation intact. Medical Decision & Procedures ER Provider Diagnostic Interpretation: Radiology results as stated below per my review and the radiologist's interpretation: CHEST ONE VIEW PORTABLE HISTORY: 57 years-old Female EVALUATE RESPIRATORY DISTRESS.DYSPNEA acute respiratory distress with dyspnea COMPARISON: Chest radiograph 10/16/2017 TECHNIQUE: Portable AP view of the chest FINDINGS: Cardiac silhouette is again enlarged. Unchanged right pectoral pacer/AICD. Mild pulmonary vascular congestion without overt pulmonary edema. There is no pneumothorax, or pleural effusion. Hazy right basilar opacities are noted. Mild right hemidiaphragmatic elevation. Bones of the chest appear grossly intact. IMPRESSION: 1. Cardiomegaly with mild pulmonary vascular congestion. 2. Right hemidiaphragmatic elevation with right basilar opacities suggesting atelectasis. The above report was generated using voice recognition software. It may contain grammatical, syntax or spelling errors. Electronically signed by: Vidal Jay M.D. 01/31/2018 9:23 PM Dictated Date/Time: 01/31/2018 9:21 PM Laboratory Results 01/31/18 21:35 Red Blood Count 4.69, Mean Corpuscular Volume 82.3, Mean Corpuscular Hemoglobin 27.7, Mean Corpuscular Hemoglobin Concent 33.7, Mean Platelet Volume 10.2, Neutrophils (%) (Auto) 84.0, Lymphocytes (%) (Auto) 8.8, Monocytes (%) (Auto) 6.5, Eosinophils (%) (Auto) 0.3, Basophils (%) (Auto) 0.2, Neutrophils # (Auto) 5.05, Lymphocytes # (Auto) 0.53, Monocytes # (Auto) 0.39, Eosinophils # (Auto) 0.02, Basophils # (Auto) 0.01 01/31/18 21:35 Test 01/31/18 21:25 01/31/18 21:35 01/31/18 21:45 Influenza Type A Antigen POS for Influ A (NEG) Influenza Type B Antigen Neg for Influ B (NEG) White Blood Count 6.01 K/uL (4.8-10.8) Red Blood Count 4.69 M/uL (4.2-5.4) Hemoglobin 13.0 g/dL (12.0-16.0) Hematocrit 38.6 % (37-47) Mean Corpuscular Volume 82.3 fL (80-100) Mean Corpuscular Hemoglobin 27.7 pg (25-34) Mean Corpuscular Hemoglobin Concent 33.7 g/dl (32-36) Platelet Count 97 K/uL (130-400) Mean Platelet Volume 10.2 fL (7.4-10.4) Neutrophils (%) (Auto) 84.0 % Lymphocytes (%) (Auto) 8.8 % Monocytes (%) (Auto) 6.5 % Eosinophils (%) (Auto) 0.3 % Basophils (%) (Auto) 0.2 % Neutrophils # (Auto) 5.05 K/uL (1.4-6.5) Lymphocytes # (Auto) 0.53 K/uL (1.2-3.4) Monocytes # (Auto) 0.39 K/uL (0.11-0.59) Eosinophils # (Auto) 0.02 K/uL (0-0.5) Basophils # (Auto) 0.01 K/uL (0-0.2) RDW Standard Deviation 44.2 fL (36.4-46.3) RDW Coefficient of Variation 15.0 % (11.5-14.5) Immature Granulocyte % (Auto) 0.2 % Immature Granulocyte # (Auto) 0.01 K/uL (0.00-0.02) Platelet Estimate DECREASED Prothrombin Time 10.4 SECONDS (9.0-12.0) Prothromb Time International Ratio 1.0 (0.9-1.1) Activated Partial Thromboplast Time 26.8 SECONDS (21.0-31.0) Partial Thromboplastin Ratio 1.0 Anion Gap 9.0 mmol/L (3-11) Est Creatinine Clear Calc Drug Dose 58.9 ml/min Estimated GFR () 80.0 Estimated GFR (Non- 69.1 BUN/Creatinine Ratio 9.1 (10-20) Calcium Level 8.4 mg/dl (8.5-10.1) Magnesium Level 1.7 mg/dl (1.8-2.4) Total Bilirubin 0.6 mg/dl (0.2-1) Aspartate Amino Transf (AST/SGOT) 23 U/L (15-37) Alanine Aminotransferase (ALT/SGPT) 36 U/L (12-78) Alkaline Phosphatase 141 U/L (45-117) Troponin I 0.090 ng/ml (0-0.045) Pro-B-Type Natriuretic Peptide 4383 pg/ml (0-900) Total Protein 6.6 gm/dl (6.4-8.2) Albumin 3.4 gm/dl (3.4-5.0) Globulin 3.2 gm/dl (2.5-4.0) Albumin/Globulin Ratio 1.1 (0.9-2) Urine Color YELLOW Urine Appearance CLOUDY (CLEAR) Urine pH 6.0 (4.5-7.5) Urine Specific [place] 1.023 (1.000-1.030) Urine Protein 1+ (NEG) Urine Glucose (UA) 3+ (NEG) Urine Ketones NEG (NEG) Urine Occult Blood 2+ (NEG) Urine Nitrite NEG (NEG) Urine Bilirubin NEG (NEG) Urine Urobilinogen NEG (NEG) Urine Leukocyte Esterase SMALL (NEG) Urine WBC (Auto) 10-30 /hpf (0-5) Urine RBC (Auto) 10-30 /hpf (0-4) Urine Hyaline Casts (Auto) 1-5 /lpf (0-5) Urine Epithelial Cells (Auto) >30 /lpf (0-5) Urine Bacteria (Auto) NEG (NEG) Urine Yeast (Auto) PRESENT (NONE PRSENT) Laboratory results per my review. Medications Administered Medications (Trade) Dose Ordered Sig/Nessa Route Start Time Stop Time Status Last Admin Dose Admin Albuterol Sulfate (Ventolin 0.083% 2.5MG/3ML Neb) 5 mg NOW STAT INH 01/31/18 21:01 01/31/18 21:03 DC 01/31/18 21:52 5 MG Methylprednisolone Sodium Succinate 40 mg/Syringe 0.64 ml @ 1.5 mls/min ONE IV 01/31/18 21:15 03/02/18 21:14 01/31/18 21:56 1.5 MLS/MIN Levofloxacin (Levaquin / D5W) 750 mg NOW STAT IV 01/31/18 22:52 01/31/18 22:54 DC 01/31/18 23:06 750 MG Oseltamivir Phosphate (Tamiflu Cap) 75 mg NOW STAT PO 01/31/18 22:52 01/31/18 22:54 DC 01/31/18 23:05 75 MG Aspirin (Aspirin Chew) 324 mg NOW STAT PO 01/31/18 22:52 01/31/18 22:54 DC 01/31/18 23:05 324 MG Ketorolac Tromethamine (Toradol Inj) 30 mg NOW STAT IV 01/31/18 22:55 01/31/18 22:56 DC 01/31/18 23:05 30 MG Furosemide (Lasix Inj) 40 mg NOW STAT IV 02/01/18 00:10 02/01/18 00:11 DC 02/01/18 00:27 40 MG ECG Per My Interpretation Indication: SOB/dyspnea Rate (beats per minute): 91 Rhythm: sinus rhythm Findings: ST depression (Lateral, high), no ectopy Comparison ECG Date: 10/17/17 Change: no significant change ED Course ED COURSE: Vital signs were reviewed and showed hypertension The patients medical record was reviewed The above diagnostic studies were performed and reviewed. ED treatments and interventions as stated above. 2054: The patient was evaluated in room A02. A complete history and physical examination was performed. 2100: Ordered Albuterol Sulfate 5 mg INH. 2114: Ordered Methylprednisolone Sodium Succinate 40 mg/Syringe 0.64 ml @ 1.5 mls/min IV. 2143: Ordered Solu-Medrol 40 mg IV. 2251: Ordered Aspirin 324 mg PO, Tamiflu Cap 75 mg PO, Levofloxacin 750 mg IV. 2254: Ordered Toradol Injection 30 mg IV. 2255: I reevaluated the patient and updated her on results. I discussed the treatment plan, which she agrees to. The patient will be further evaluated. 2306: I discussed the patients case with Dr. Oconer, [facility]. He understands the patients condition and agrees to accept the patient. The patient will be further evaluated. Medical Decision Differential diagnoses includes but is not limited to pneumonia, bronchitis, COPD/Asthma exacerbation, pneumothorax, pulmonary embolism, congestive heart failure, acute coronary syndrome Patient is a 57-year-old female who presents to ER with a persistent productive cough. She also admits to diarrhea. She has a history of asthma. has had similar symptoms earlier. CBC BMP was unremarkable. Troponin was elevated at 0.09. UA was contaminated. Influenza was positive. Chest x-ray showed no focal infiltrate. Based on symptoms I do believe this is secondary to demand ischemia and influenza A. I did cover with IV antibiotics, Tamiflu and aspirin. EKG did not show any significant change. Patient was updated at bedside. Discussed with internal medicine for observation overnight. Medication Reconcilliation Current Medication List: was personally reviewed by me Blood Pressure Screening Patient's blood pressure: Elevated blood pressure Referred to Hospitalist. Consults Time Called: 2240 [facility] Returned Call: [phone] I discussed the [facility] He understands the patients condition and agrees to accept the patient. The patient will be further evaluated. Impression Primary Impression: Influenza A Additional Impression: Elevated troponin Scribe Attestation The scribe's documentation has been prepared under my direction and personally reviewed by me in its entirety. I confirm that the note above accurately reflects all work, treatment, procedures, and medical decision making performed by me. Departure Information Dispostion Being Evaluated By Hospitalist Referrals Suad De León D.O. (PCP) Patient Instructions My [facility] Problem Qualifiers
[2018-02-01] MEDS ORDERED: IPRATROPIUM BROMIDE NEB SOLN 0.02% 2.5 ML VIAL INH PRN (01:00)
[2018-02-01] MEDS ORDERED: LEVALBUTEROL 1.25MG/0.5ML NEB INH PRN (01:00)
[2018-02-01] MEDS ORDERED: POTASSIUM CHLORIDE 10 MEQ TABCR PO STA (01:01)
[2018-02-01] MEDS ORDERED: CALCIUM GLUCONATE 10% 1,000 MG in SODIUM CHLORIDE 0.9% 50ML 50 ML IV STA (01:01)
[2018-02-01] MEDS ORDERED: CLINDAMYCIN HCL 150 MG CAP PO STA (01:15)
[2018-02-01] MEDS ORDERED: TRAMADOL HCL 50 MG TAB PO PRN (01:15)
[2018-02-01] MEDS ORDERED: ACETAMINOPHEN 325 MG TAB PO PRN (01:15)
[2018-02-01] MEDS ORDERED: LANTUS PER UNIT CHARGE SQ STA (01:15)
[2018-02-01] MEDS ORDERED: NITROGLYCERIN 0.4 MG SL PER TAB CHARGE SL PRN (01:15)
[2018-02-01] MEDS ORDERED: GLUCOSE 40% GEL 15 GM TUBE PO PRN (01:15)
[2018-02-01] MEDS ORDERED: LORAZEPAM 2 MG/ML 1 ML VIAL IV PRN (01:15)
[2018-02-01] MEDS ORDERED: GLUCAGON FOR INJ 1 MG VIAL SQ PRN (01:15)
[2018-02-01] MEDS ORDERED: GLUCOSE 10 TABS/TUBE PO PRN (01:15)
[2018-02-01] MEDS ORDERED: DEXTROSE 50% 50 ML SYR IV PRN (01:15)
[2018-02-01] MEDS ORDERED: MoRPHine SULFATE 4 MG/ML 1 ML CARP\\VIAL IV PRN (01:15)
[2018-02-01] MEDS ORDERED: PROCHLORPERAZINE INJ 5 MG in SYRINGE 4 ML IV PRN (01:15)
[2018-02-01] MEDS ORDERED: LACTOBACILLUS ACIDOPHILUS (FLORANEX) TAB PO ONE (01:30)
[2018-02-01] MEDS ORDERED: INSULIN ASPART 100 UNITS/ML 3 ML PEN SC ONE ×2 (01:30→04:00)
[2018-02-01] MEDS ORDERED: LORAZEPAM INJ 0.25 MG in SYRINGE 0.125 ML IV PRN (01:45)
[2018-02-01] MEDS ORDERED: MAGNESIUM SULFATE 1GM / D5W 1 GM in PREMIXED IN D5W 100 ML IV ONE (02:00)
[2018-02-01 02:42] LABS: HEMATOCRIT 40.8 % (37-47); HEMOGLOBIN 13.5 g/dL (12.0-16.0); MEAN CELL VOLUME 82.9 fL (80-100); MEAN CORPUSCULAR HEMOGLOBIN 27.4 pg (25-34); MEAN CORPUSCULAR HGB CONC 33.1 g/dl (32-36); RED CELL DISTRIBUTION WIDTH CV 15.1 % (11.5-14.5); RED CELL DISTRIBUTION WIDTH SD 45.4 fL (36.4-46.3); WHITE BLOOD COUNT 6.42 K/uL (4.8-10.8)
[2018-02-01 02:47] LABS: PTT PATIENT 26.3 SECONDS (21.0-31.0)
--- NOTE | 2018-02-01 03:11 | HISTORY & PHYSICAL EXAMINATION ---
DATE OF ADMISSION: 02/01/2018 PRIMARY CARE PHYSICIAN: Dr. De León. CHIEF COMPLAINT: Shortness of breath. HISTORY OF PRESENT ILLNESS: History obtained from patient, , and records. Medical history significant for hypertension, HOCM, family history sudden cardiac sp ICD placement, DM2 on oral meds, sleep apnea, restless leg syndrome as per records, bowel perforation status post surgery, mood disorder. Recent confinement last September 2017 for altered mental status. Patient noted to have jerking of the upper and lower extremities. Sbsequently intubated in the ER for airway protection. Involuntary movements/confusion attributed to multiple neuropsych medications. The last few days, patient noted aches all over, generalized headache from coughing, cough productive of yellow sputum, sick contacts, some coughing associated w/ choking with food intake from time to time. No chest pain. Increasing shortness of breath, no unusual swelling, fluid retention, or weight gain. At the Emergency Room, the patient found to be flu positive. Received Tamiflu, Solu-Medrol and breathing treatment for bronchitis. Patient given aspirin for abnormal troponin as well. MEDICAL HISTORY: As above. SURGERIES: Bowel surgery, ICD placement, appendectomy, section. HOME MEDICATIONS: Include aspirin, dicyclomine, Lomotil, duloxetine, Lexapro, Flovent, gabapentin, Toprol, Remeron, Prilosec, Requip, Imitrex. ALLERGIES: SERTRALINE, ADHESIVE, DOXYCYCLINE, PENICILLIN AND SULFA. FAMILY HISTORY: Heart disease. PERSONAL AND SOCIAL HISTORY: Nonsmoker, no chronic intake of alcoholic beverages. Homemaker. REVIEW OF SYSTEMS: As per HPI. All 10 systems reviewed. Pimple-like lesion noted on right pacemaker site for about a month now. All other ROS negative. PHYSICAL EXAMINATION: VITAL SIGNS: Blood pressure was noted to be 171/99, later 134/94, pulse rate 90, RR 27, temperature 37, sats 90 on room air. GENERAL: Noted to be obese, anxious, min respiratory distress, restless. SKIN: Normal color, warm. HEENT: [place] palpebral conjunctiva. Flushed face. Dry mucosa. No ptosis. NECK: Short, supple. CHEST: Decreased breath sounds. Tender, granulomatous lesion on the right pacemaker site. ABDOMEN: Some distention, nontender. EXTREMITIES: No LE edema. No gross deformity. No tenderness. NEUROLOGIC: Coherent except for some restlessness. LABORATORY DATA: Hemoglobin was noted to be 13, hematocrit 38.6, white blood cell count 10, platelets noted to be 97. Sodium noted to be 134, potassium 3.7, chloride 100, CO2 25, BUN 8, creatinine 0.9, glucose 275. Troponin was noted to be 0.09. BNP was noted to be 4383. Hemoglobin A1c January [address] head, no acute pathology. Chest x-ray, cardiomegaly with mild pulmonary congestion, right basilar opacities. EKG as per my interpretation, 90, normal sinus rhythm, LAE, LVH, ST depression on the lateral leads. abnormal flu PCR swab ASSESSMENT: 1. Shortness of breath multifactorial : complicated bronchitis 2 influenza, question of aspiration pneumonitis, no sepsis pulmonary congestion. hx chronic diastolic heart failure (wo other signs of fluid retention however) 2. HTN, currently stable 3. Troponin bump possibly secondary to transient BP elevation 4. hx HOCM/familial sudden cardiac sp ICD 5. thrombocytopenia secondary to viral illness. 6. DM2, on oral meds, suboptimal control as of recent outpatient HgA1c. 7. Possible infected granuloma, R ICD site. PLAN: PCU Lasix 1 dose Tamiflu course nebs, Clindamycin aspiration precautions, swallow eval. Basal insulin, ISS BG goal 140-180. Carb count coverage indicated for suboptimal blood sugar control. Diabetic education. PT, OT eval. Follow response of granulomatous lesion right chest wall to Clindamycin. Consider Surgery consult if still persistent. DVT prophylaxis, SCDs RE thrombocytopenia. Full code. MTDD
[2018-02-01 03:19] LABS: BASO % 0.2 %; BASO ABS # 0.01 K/uL (0-0.2); IG# 0.02 K/uL (0.00-0.02); LYMPH % 4.7 %; MONO % 3.3 %; MONO ABS # 0.21 K/uL (0.11-0.59); NEUT % 91.5 %; NEUT ABS # 5.88 K/uL (1.4-6.5); PLATELET COUNT 94 K/uL (130-400)
[2018-02-01 03:23] LABS: CALCIUM 9.2 mg/dl (8.5-10.1); CREATININE 1.14 mg/dl (0.60-1.20); POTASSIUM 4.2 mmol/L (3.5-5.1)
[2018-02-01] MEDS ORDERED: ALBUMIN HUMAN 25% 12.5 GM/50 ML VIAL IV ONE (04:00)
[2018-02-01] MEDS ORDERED: INSULIN GLARGINE SOLOSTAR 100 UNITS/ML 3 ML PEN SC ONE (04:00)
--- NOTE | 2018-02-01 07:18 | DIAGNOSTIC IMAGING REPORT ---
CT OF THE HEAD WITHOUT CONTRAST CLINICAL HISTORY: Worsening headache. COMPARISON STUDY: Head CT October 13, 2017. CT DOSE: 537.48 mGy.cm TECHNIQUE: Helical axial images of the head were obtained without IV contrast. Automated exposure control was utilized for the study. A dose lowering technique was utilized adhering to the principles of ALARA. FINDINGS: No acute intracranial hemorrhage, midline shift or mass effect is present. Ventricular system is normal. Basilar cisterns are patent. There are no axial collections. Herrera-white differentiation is maintained. There are no findings to suggest acute dural sinus thrombosis or acute territorial infarct. There are no significant calvarial abnormalities. Visual portions of the sinuses and mastoid air cells are clear. IMPRESSION: No acute intracranial findings. Electronically signed by: Phil Devries M.D. 02/01/2018 7:17 AM Dictated Date/Time: 02/01/2018 7:15 AM
[2018-02-01] MEDS: CLINDAMYCIN HCL 150 MG CAP PO SCH ×3 (08:35→20:58)
[2018-02-01] MEDS: DICYCLOMINE HCL 10 MG CAP PO SCH ×2 (08:36→20:43)
[2018-02-01] MEDS: GABAPENTIN 300 MG CAP PO SCH ×3 (08:36→20:42)
[2018-02-01] MEDS: SERTRALINE HCL 100 MG TAB PO SCH (08:36)
[2018-02-01] MEDS: ASPIRIN 81 MG ECTAB PO SCH (08:36)
[2018-02-01] MEDS: PANTOprazole SOD 40 MG TAB PO SCH (08:36)
[2018-02-01] MEDS: METOPROLOL SUCC 25MG EXT REL TAB PO SCH ×2 (08:36→20:44)
[2018-02-01] MEDS: LACTOBACILLUS ACIDOPHILUS (FLORANEX) TAB PO SCH ×3 (08:36→18:04)
[2018-02-01] MEDS: DULOXETINE HCL 60 MG CAP PO SCH (08:36)
[2018-02-01] MEDS: FLUTICASONE PROP HFA INH 44 MCG INHALER INH SCH ×2 (08:37→20:44)
[2018-02-01] MEDS: INSULIN ASPART 100 UNITS/ML 3 ML PEN SC SCH ×4 (08:48→20:48)
[2018-02-01] MEDS ORDERED: OSELTAMIVIR PHOSPHATE 75 MG CAP PO SCH (09:00)
[2018-02-01] MEDS ORDERED: [UNRECOGNIZED DRUG - OTHER] PRN (09:00)
[2018-02-01] MEDS ORDERED: INSULIN GLARGINE SOLOSTAR 100 UNITS/ML 3 ML PEN SC SCH ×4 (09:00→21:00)
[2018-02-01] MEDS ORDERED: PHARMACY GLYCEMIC MGMT CONSULT PRN (11:50)
--- NOTE | 2018-02-01 13:59 | Pharmacy Progress Note ---
Glycemic Control Intl Consult Date of Service Feb 01, 2018. Scope Glycemic Pharmacist consulted by Dr Carroll on 02/01 for glycemic control and to write orders per [facility] inpatient glycemic control protocol Objective Weight (Kilograms): 71.000 Accuchecks BSG (last 24hrs): Test 01/31/18 21:35 02/01/18 01:37 02/01/18 02:25 02/01/18 07:55 Random Glucose 275 mg/dl (70-99) 518 mg/dl (70-99) Bedside Glucose 396 mg/dl (70-90) 236 mg/dl (70-90) Test 02/01/18 10:51 Bedside Glucose 118 mg/dl (70-90) Laboratory Data (last 24hrs) Test 01/31/18 21:35 02/01/18 02:25 Anion Gap 9.0 mmol/L 9.0 mmol/L BUN/Creatinine Ratio 9.1 10.2 Blood Urea Nitrogen 8 mg/dl 12 mg/dl Creatinine 0.91 mg/dl 1.14 mg/dl Potassium Level 3.7 mmol/L 4.2 mmol/L Sodium Level 134 mmol/L 130 mmol/L White Blood Count 6.01 K/uL 6.42 K/uL Red Blood Count 4.69 M/uL 4.92 M/uL Hemoglobin 13.0 g/dL 13.5 g/dL Hematocrit 38.6 % 40.8 % Mean Corpuscular Volume 82.3 fL 82.9 fL Mean Corpuscular Hemoglobin 27.7 pg 27.4 pg Mean Corpuscular Hemoglobin Concent 33.7 g/dl 33.1 g/dl Platelet Count 97 K/uL 94 K/uL Mean Platelet Volume 10.2 fL 10.0 fL Neutrophils (%) (Auto) 84.0 % 91.5 % Lymphocytes (%) (Auto) 8.8 % 4.7 % Monocytes (%) (Auto) 6.5 % 3.3 % Eosinophils (%) (Auto) 0.3 % 0.0 % Basophils (%) (Auto) 0.2 % 0.2 % Neutrophils # (Auto) 5.05 K/uL 5.88 K/uL Lymphocytes # (Auto) 0.53 K/uL 0.30 K/uL Monocytes # (Auto) 0.39 K/uL 0.21 K/uL Eosinophils # (Auto) 0.02 K/uL 0.00 K/uL Basophils # (Auto) 0.01 K/uL 0.01 K/uL Recent Pertinent Medications Outpatient Anti-diabetic Regimen: * Metformin 500 mg po BIDM (per external medication history) * A1c on order for tomorrow The patient is currently receiving: * Basal insulin: Lantus 25+30 units x1 this AM * Correctional Insulin: Novolog Correction per scale ACHS Goal Range: Low 140 mg/dL - High 180 mg/dL Correction Factor: 25 mg/dL/unit * Prandial insulin: Per carb ratio of 1 unit per 15 grams CHO consumed * Oral Agents: On hold Risk Factors for Insulin Resistance: * Steroids: * Infection: * Pressors: * IVF: * Recent Surgery * Diet: * Mechanical Ventilation: Assessment & Plan ASSESSMENT: * 57 yo F admitted with influenza +/- pneumonia. * Full daily dose of weight-based Lantus with severe stress is 36 units - patient has already received 55 units this AM. BSG's significantly trended down , from 518 to 118 mg/dL before lunch * Concern that Lantus dose may have been too aggressive - will not order additional Lantus for now and re-evaluate tomorrow AM * To help prevent hypoglycemia, will keep goal range high, keep very loose carb ratio, and slightly loosen correction factor * If patient has any BSG less than 70 mg/dL - would treat per hypoglycemic protocol, but would then recommend low-dose dextrose infusion to maintain BSG > 100 mg/dL as hypoglycemia would be 2nd Lantus which will be on-board until tomorrow AM PLAN FOR INPATIENT GLYCEMIC CONTROL: * Holding outpatient oral diabetes medications * Hold additional Lantus for now * Correctional Insulin with NOVOLOG per scale ACHS or Q6hrs while NPO * Goal Range: Low 140 mg/dL - High 180 mg/dL * Correction Factor: 30 mg/dL/unit * Nutritional / Prandial insulin per carb ratio of 1 unit per 15 grams CHO consumed * Please note that the plan above was derived based on current level of insulin resistance and hospital stress. These recommendations are appropriate for inpatient admission only. Plan of care upon discharge will need to be reassessed to avoid potential outpatient hypo/hyperglycemia. Thank you.
--- NOTE | 2018-02-01 16:09 | Progress Note ---
Internal Med Progress Note Date of Service: Feb 01, 2018. Provider Documentation: SUBJECTIVE: Seen and examined at bedside Feels better SOB and cough improved No other complaints Denies chest pain, abd pain, dizziness OBJECTIVE: Vital Signs-as noted below Physical Exam: General Appearance:Moderately built and nourished, no apparent distress Head: normocephalic, Atraumatic Eyes: normal inspection, EOMI, PERRL Neck: supple, Trachea midline Respiratory/Chest: Normal breath sounds, CTA Cardiovascular: S1, S2, No murmur Abdomen/GI:Soft, Non tender, Bowel sounds present Extremities/Musculoskelatal:normal inspection, no edema Neurologic/Psych:AAOX3, grossly no focal neurological deficits Skin: normal color, warm Lab data as noted below. ASSESSMENT & PLAN: Shortness of breath: Likely secondary to Influenza, Bronchitis No signs of sepsis CXR:mild pulmonary vascular congestion, right basilar opacities suggesting atelectasis. H/O chronic diastolic heart failure Continue Tamiflu,clindamycin Saturating 99% on room air speech eval to R/O aspiration Chronic Elevation of Troponin Troponin trending down Denies chest pain EKG: No acute signs of ischemia advised to follow up with her oil expert as outpatient HTN: stable continue metoprolol H/O HOCM/familial sudden cardiac S/P ICD continue BB DM II: BGs levels initially elevated likely secondary to solu-medrol A1C:pending Glycemic management per Pharmacy Thrombocytopenia secondary to viral illness monitor Possible infected granuloma, R ICD site continue clindamycin will consider surgery if needed DVT px: SCDs RE thrombocytopenia Code Status Full code Vital Signs: Date Time Temp Pulse Resp B/P (MAP) Pulse Ox O2 Delivery O2 Flow Rate FiO2 02/01/18 12:17 72 02/01/18 12:00 36.6 77 16 118/58 (78) 99 Room Air 02/01/18 12:00 Room Air 02/01/18 08:00 Room Air 02/01/18 07:51 68 02/01/18 06:10 83 02/01/18 04:00 36.8 76 18 146/77 (100) 99 2.0 02/01/18 04:00 97 Nasal Cannula 2.0 02/01/18 02:09 36.8 85 20 109/79 95 Room Air 02/01/18 02:09 85 02/01/18 02:03 36.8 90 20 109/79 95 Room Air 02/01/18 00:35 92 20 148/79 95 Room Air 01/31/18 23:10 37.0 89 20 164/76 95 Room Air 01/31/18 23:06 90 01/31/18 22:21 95 21 96 01/31/18 22:01 134/94 01/31/18 21:31 161/89 01/31/18 21:24 Room Air 01/31/18 21:21 92 27 94 01/31/18 21:15 164/89 01/31/18 20:26 37.3 98 18 171/99 90 Room Air Lab Results: Results Past 24 Hours Test 01/31/18 21:25 01/31/18 21:35 01/31/18 21:45 02/01/18 01:37 Range/Units Influenza Type A Antigen POS for Influ A NEG Influenza Type B Antigen Neg for Influ B NEG White Blood Count 6.01 4.8-10.8 K/uL Red Blood Count 4.69 4.2-5.4 M/uL Hemoglobin 13.0 12.0-16.0 g/dL Hematocrit 38.6 37-47 % Mean Corpuscular Volume 82.3 80-100 fL Mean Corpuscular Hemoglobin 27.7 25-34 pg Mean Corpuscular Hemoglobin Concent 33.7 32-36 g/dl Platelet Count 97 130-400 K/uL Mean Platelet Volume 10.2 7.4-10.4 fL Neutrophils (%) (Auto) 84.0 % Lymphocytes (%) (Auto) 8.8 % Monocytes (%) (Auto) 6.5 % Eosinophils (%) (Auto) 0.3 % Basophils (%) (Auto) 0.2 % Neutrophils # (Auto) 5.05 1.4-6.5 K/uL Lymphocytes # (Auto) 0.53 1.2-3.4 K/uL Monocytes # (Auto) 0.39 0.11-0.59 K/uL Eosinophils # (Auto) 0.02 0-0.5 K/uL Basophils # (Auto) 0.01 0-0.2 K/uL RDW Standard Deviation 44.2 36.4-46.3 fL RDW Coefficient of Variation 15.0 11.5-14.5 % Immature Granulocyte % (Auto) 0.2 % Immature Granulocyte # (Auto) 0.01 0.00-0.02 K/uL Platelet Estimate DECREASED Prothrombin Time 10.4 9.0-12.0 SECONDS Prothromb Time International Ratio 1.0 0.9-1.1 Activated Partial Thromboplast Time 26.8 21.0-31.0 SECONDS Partial Thromboplastin Ratio 1.0 Sodium Level 134 136-145 mmol/L Potassium Level 3.7 3.5-5.1 mmol/L Chloride Level 100 98-107 mmol/L Carbon Dioxide Level 25 21-32 mmol/L Anion Gap 9.0 3-11 mmol/L Blood Urea Nitrogen 8 7-18 mg/dl Creatinine 0.91 0.60-1.20 mg/dl Est Creatinine Clear Calc Drug Dose 58.9 ml/min Estimated GFR () 80.0 Estimated GFR (Non- 69.1 BUN/Creatinine Ratio 9.1 10-20 Random Glucose 275 70-99 mg/dl Calcium Level 8.4 8.5-10.1 mg/dl Magnesium Level 1.7 1.8-2.4 mg/dl Total Bilirubin 0.6 0.2-1 mg/dl Aspartate Amino Transf (AST/SGOT) 23 15-37 U/L Alanine Aminotransferase (ALT/SGPT) 36 12-78 U/L Alkaline Phosphatase 141 45-117 U/L Troponin I 0.090 0-0.045 ng/ml Pro-B-Type Natriuretic Peptide 4383 0-900 pg/ml Total Protein 6.6 6.4-8.2 gm/dl Albumin 3.4 3.4-5.0 gm/dl Globulin 3.2 2.5-4.0 gm/dl Albumin/Globulin Ratio 1.1 0.9-2 Urine Color YELLOW Urine Appearance CLOUDY CLEAR Urine pH 6.0 4.5-7.5 Urine Specific [place] 1.023 1.000-1.030 Urine Protein 1+ NEG Urine Glucose (UA) 3+ NEG Urine Ketones NEG NEG Urine Occult Blood 2+ NEG Urine Nitrite NEG NEG Urine Bilirubin NEG NEG Urine Urobilinogen NEG NEG Urine Leukocyte Esterase SMALL NEG Urine WBC (Auto) 10-30 0-5 /hpf Urine RBC (Auto) 10-30 0-4 /hpf Urine Hyaline Casts (Auto) 1-5 0-5 /lpf Urine Epithelial Cells (Auto) >30 0-5 /lpf Urine Bacteria (Auto) NEG NEG Urine Yeast (Auto) PRESENT NONE PRSENT Bedside Glucose 396 70-90 mg/dl Test 02/01/18 02:25 02/01/18 07:55 02/01/18 07:59 02/01/18 10:51 Range/Units White Blood Count 6.42 4.8-10.8 K/uL Red Blood Count 4.92 4.2-5.4 M/uL Hemoglobin 13.5 12.0-16.0 g/dL Hematocrit 40.8 37-47 % Mean Corpuscular Volume 82.9 80-100 fL Mean Corpuscular Hemoglobin 27.4 25-34 pg Mean Corpuscular Hemoglobin Concent 33.1 32-36 g/dl Platelet Count 94 130-400 K/uL Mean Platelet Volume 10.0 7.4-10.4 fL Neutrophils (%) (Auto) 91.5 % Lymphocytes (%) (Auto) 4.7 % Monocytes (%) (Auto) 3.3 % Eosinophils (%) (Auto) 0.0 % Basophils (%) (Auto) 0.2 % Neutrophils # (Auto) 5.88 1.4-6.5 K/uL Lymphocytes # (Auto) 0.30 1.2-3.4 K/uL Monocytes # (Auto) 0.21 0.11-0.59 K/uL Eosinophils # (Auto) 0.00 0-0.5 K/uL Basophils # (Auto) 0.01 0-0.2 K/uL RDW Standard Deviation 45.4 36.4-46.3 fL RDW Coefficient of Variation 15.1 11.5-14.5 % Immature Granulocyte % (Auto) 0.3 % Immature Granulocyte # (Auto) 0.02 0.00-0.02 K/uL Activated Partial Thromboplast Time 26.3 21.0-31.0 SECONDS Partial Thromboplastin Ratio 1.0 Sodium Level 130 136-145 mmol/L Potassium Level 4.2 3.5-5.1 mmol/L Chloride Level 97 98-107 mmol/L Carbon Dioxide Level 24 21-32 mmol/L Anion Gap 9.0 3-11 mmol/L Blood Urea Nitrogen 12 7-18 mg/dl Creatinine 1.14 0.60-1.20 mg/dl Est Creatinine Clear Calc Drug Dose 47.0 ml/min Estimated GFR () 61.0 Estimated GFR (Non- 52.6 BUN/Creatinine Ratio 10.2 10-20 Random Glucose 518 70-99 mg/dl Calcium Level 9.2 8.5-10.1 mg/dl Troponin I 0.092 0.088 0-0.045 ng/ml Beta-Hydroxybutyric Acid 7.78 0.2-2.81 mg/dL Bedside Glucose 236 118 70-90 mg/dl
[2018-02-01] MEDS: OSELTAMIVIR PHOSPHATE SUSP 30 MG/5 ML UDP PO SCH (20:57)
[2018-02-01] MEDS ORDERED: MIRTAZAPINE SOLTAB 15 MG PO SCH (21:00)
[2018-02-01] MEDS ORDERED: ESCITALOPRAM OXALATE 10 MG TAB PO SCH (21:00)
[2018-02-01] MEDS ORDERED: ROPINIROLE HCL 0.25 MG TAB PO SCH (21:00)
[2018-02-02] MEDS ORDERED: INSULIN ASPART 100 UNITS/ML 3 ML PEN SC SCH (02:00)
[2018-02-02 03:15] VITALS: BP 114/75; PULSE 79; TEMP 37.1; O2SAT 97
[2018-02-02] MEDS: CLINDAMYCIN HCL 150 MG CAP PO SCH ×2 (03:16→11:00)
[2018-02-02 06:52] LABS: HEMATOCRIT 41.1 % (37-47); HEMOGLOBIN 13.8 g/dL (12.0-16.0); MEAN CELL VOLUME 82.9 fL (80-100); MEAN CORPUSCULAR HEMOGLOBIN 27.8 pg (25-34); MEAN CORPUSCULAR HGB CONC 33.6 g/dl (32-36); MEAN PLATELET VOLUME 10.4 fL (7.4-10.4); PLATELET COUNT 108 K/uL (130-400); RED CELL DISTRIBUTION WIDTH CV 15.5 % (11.5-14.5); RED CELL DISTRIBUTION WIDTH SD 46.3 fL (36.4-46.3); WHITE BLOOD COUNT 6.52 K/uL (4.8-10.8)
[2018-02-02 07:12] VITALS: BP 128/73; PULSE 84; TEMP 37.1; O2SAT 93
[2018-02-02 07:18] LABS: CALCIUM 8.1 mg/dl (8.5-10.1); CREATININE 1.18 mg/dl (0.60-1.20); POTASSIUM 3.6 mmol/L (3.5-5.1)
[2018-02-02] MEDS ORDERED: INSULIN GLARGINE SOLOSTAR 100 UNITS/ML 3 ML PEN SC ONE (07:30)
[2018-02-02] MEDS: GABAPENTIN 300 MG CAP PO SCH (07:54)
[2018-02-02] MEDS: DICYCLOMINE HCL 10 MG CAP PO SCH (07:54)
[2018-02-02] MEDS: PANTOprazole SOD 40 MG TAB PO SCH (07:55)
[2018-02-02] MEDS: DULOXETINE HCL 60 MG CAP PO SCH (07:55)
[2018-02-02] MEDS: LACTOBACILLUS ACIDOPHILUS (FLORANEX) TAB PO SCH ×2 (07:55→11:01)
[2018-02-02] MEDS: ASPIRIN 81 MG ECTAB PO SCH (07:55)
[2018-02-02] MEDS: SERTRALINE HCL 100 MG TAB PO SCH (07:56)
[2018-02-02] MEDS: METOPROLOL SUCC 25MG EXT REL TAB PO SCH (07:56)
[2018-02-02] MEDS: FLUTICASONE PROP HFA INH 44 MCG INHALER INH SCH (07:57)
[2018-02-02] MEDS: INSULIN ASPART 100 UNITS/ML 3 ML PEN SC SCH ×2 (08:03→12:02)
[2018-02-02] MEDS: OSELTAMIVIR PHOSPHATE SUSP 30 MG/5 ML UDP PO SCH (08:04)
[2018-02-02 08:16] LABS: HEMOGLOBIN A1C 14.6 % (4.5-5.6)
--- NOTE | 2018-02-02 10:53 | Progress Note ---
Internal Med Progress Note Date of Service: Feb 02, 2018. Provider Documentation: SUBJECTIVE: Seen and examined at bedside SOB and cough improved Eager to get discharged No other complaints Denies chest pain, abd pain, dizziness OBJECTIVE: Vital Signs-as noted below Physical Exam: General Appearance:Moderately built and nourished, no apparent distress Head: normocephalic, Atraumatic Eyes: normal inspection, EOMI, PERRL Neck: supple, Trachea midline Respiratory/Chest: Normal breath sounds, CTA Cardiovascular: S1, S2, No murmur Abdomen/GI:Soft, Non tender, Bowel sounds present Extremities/Musculoskelatal:normal inspection, no edema Neurologic/Psych:AAOX3, grossly no focal neurological deficits Skin: normal color, warm Lab data as noted below. ASSESSMENT & PLAN: Shortness of breath: Likely secondary to Influenza, Bronchitis No signs of sepsis CXR:mild pulmonary vascular congestion, right basilar opacities suggesting atelectasis. H/O chronic diastolic heart failure Continue Tamiflu,clindamycin Day#2 Saturating 99% on room air speech eval Chronic Elevation of Troponin Troponin trending down Denies chest pain EKG: No acute signs of ischemia advised to follow up with her voip network engineer as outpatient HTN: stable continue metoprolol H/O HOCM/familial sudden cardiac S/P ICD continue BB DM II: BGs levels initially elevated likely secondary to solu-medrol A1C:14.6 Glycemic management per Pharmacy Admits to being non compliant with diet Counseled about dietary changes and physical activity Advised to be started on Insulin therapy, patient would like to discuss with PCP Will add januvia 50mg daily Takes Metformin 500mg BID at home Thrombocytopenia secondary to viral illness monitor Possible infected granuloma, R ICD site continue clindamycin Improving, Advised to follow up with surgery as outpatient if not improvement with antibiotics DVT px: SCDs RE thrombocytopenia Code Status Full code Disposition: Plan to discharge home Today Follow up with your PCP on 02/05/18 at 1:15pm Follow up with your Pathology Specialist as suggested Discuss with your doctor regarding Insulin therapy as suggested Consider following up with your surgeon if your lesion on chest doesn't improve with antibiotics Seek immediate medical attention if your symptoms reoccur or worsen Vital Signs: Date Time Temp Pulse Resp B/P (MAP) Pulse Ox O2 Delivery O2 Flow Rate FiO2 02/02/18 08:00 Room Air 02/02/18 07:12 37.1 84 18 128/73 (91) 93 Room Air 02/02/18 04:00 Room Air 02/02/18 03:15 37.1 79 16 114/75 (88) 97 Room Air 02/02/18 00:01 Room Air 02/01/18 23:09 37.1 80 20 132/80 (97) 94 Room Air 02/01/18 20:19 36.4 83 20 105/69 (81) 91 Room Air 02/01/18 20:00 Room Air 02/01/18 17:00 Room Air 02/01/18 16:52 37.1 77 18 113/74 (87) 95 Room Air 02/01/18 13:50 37.1 74 22 121/74 (90) 93 Room Air 02/01/18 12:17 72 02/01/18 12:00 36.6 77 16 118/58 (78) 99 Room Air 02/01/18 12:00 Room Air Lab Results: Results Past 24 Hours Test 02/01/18 10:51 02/01/18 16:20 02/01/18 20:47 02/02/18 01:59 Range/Units Bedside Glucose 118 214 247 108 70-90 mg/dl Test 02/02/18 05:43 02/02/18 06:42 Range/Units White Blood Count 6.52 4.8-10.8 K/uL Red Blood Count 4.96 4.2-5.4 M/uL Hemoglobin 13.8 12.0-16.0 g/dL Hematocrit 41.1 37-47 % Mean Corpuscular Volume 82.9 80-100 fL Mean Corpuscular Hemoglobin 27.8 25-34 pg Mean Corpuscular Hemoglobin Concent 33.6 32-36 g/dl RDW Standard Deviation 46.3 36.4-46.3 fL RDW Coefficient of Variation 15.5 11.5-14.5 % Platelet Count 108 130-400 K/uL Mean Platelet Volume 10.4 7.4-10.4 fL Sodium Level 135 136-145 mmol/L Potassium Level 3.6 3.5-5.1 mmol/L Chloride Level 101 98-107 mmol/L Carbon Dioxide Level 26 21-32 mmol/L Anion Gap 9.0 3-11 mmol/L Blood Urea Nitrogen 24 7-18 mg/dl Creatinine 1.18 0.60-1.20 mg/dl Est Creatinine Clear Calc Drug Dose 45.0 ml/min Estimated GFR () 58.5 Estimated GFR (Non- 50.4 BUN/Creatinine Ratio 20.1 10-20 Random Glucose 250 70-99 mg/dl Estimated Average Glucose 372 mg/dl Hemoglobin A1c 14.6 4.5-5.6 % Calcium Level 8.1 8.5-10.1 mg/dl Magnesium Level 2.0 1.8-2.4 mg/dl Bedside Glucose 223 70-90 mg/dl
[2018-02-02] MEDS ORDERED: METF500T5 PO (10:55)
[2018-02-02] MEDS ORDERED: OSEL30CA PO (10:56)
[2018-02-02] MEDS ORDERED: SITA50TA3 PO (10:56)
[2018-02-02] MEDS ORDERED: CLC150 PO (10:56)
--- NOTE | 2018-02-02 10:58 | Discharge Summary ---
Discharge Summary Date of Service Feb 02, 2018. Discharge Summary Admission Date: Feb 01, 2018 at 01:01 Discharge Date: Feb 02, 2018 Discharge Disposition: Home Principal Diagnosis: Influenza, Bronchitis Procedures: CT head: No acute intracranial findings. CXR: 1. Cardiomegaly with mild pulmonary vascular congestion. 2. Right hemidiaphragmatic elevation with right basilar opacities suggesting atelectasis. Consultations: None Pending Studies/Follow-Up: Follow up with your PCP on 02/05/18 at 1:15pm Follow up with your Implementation Project Manager as suggested Discuss with your doctor regarding Insulin therapy as suggested Consider following up with your surgeon if your lesion on chest doesn't improve with antibiotics Seek immediate medical attention if your symptoms reoccur or worsen Medication Reconciliation New Medications: Oseltamivir Phosphate (Tamiflu) 30 Mg Cap 1 CAP PO BID for 4 Days, #8 CAP Sitagliptin (Januvia) 50 Mg Tab 50 MG PO DAILY for 30 Days, #30 TAB Clindamycin HCl (Clindamycin HCl) 150 Mg Cap 300 MG PO Q6H for 4 Days, #32 CAP Continued Medications: Aspirin (Aspirin Ec) 81 Mg Tab 81 MG PO QAM Dicyclomine Hcl (Dicyclomine Hcl) 10 Mg Cap 10 MG PO BID for 30 Days, #60 CAP 3 Refills Diphenoxylate/Atropine (Lomotil) Tab 1 TAB PO DIRECTED PRN for Diarrhea, TAB Duloxetine HCl (Duloxetine HCl) 60 Mg Cap 60 MG PO DAILY Escitalopram Oxalate (Lexapro) 5 Mg Tab 5 MG PO HS, TAB Fluticasone Propionate (Flovent Hfa) 120 Puffs/5280 Mcg Aero 2 PUFFS INH BID for 30 Days, #10.6 GM 2 Refills Gabapentin (Gabapentin) 300 Mg Cap 300 MG PO TID Metformin Hcl Er (Glucophage Er) 500 Mg Tab 500 MG PO BID, TAB Metoprolol Succinate (Toprol Xl) 25 Mg Tabcr 25 MG PO BID, #30 TAB Mirtazapine Soltab (Remeron Soltab) 30 Mg Soltab 30 MG PO HS, TAB Omeprazole (Prilosec) 40 Mg Cap 40 MG PO DAILY Ropinirole Hydrochloride (Requip) 0.5 Mg Tab 0.5 MG PO HS, TAB Sertraline HCl (Sertraline HCl) 100 Mg Tab 200 MG PO DAILY Sumatriptan Succinate (Imitrex) 25 Mg Tab 50 MG PO UD PRN for Migraine, TAB take 50mg for migraine once. may repeat in 2 hours. Admission Information HPI (per Admitting provider): CHIEF COMPLAINT: Shortness of breath. HISTORY OF PRESENT ILLNESS: History obtained from patient, , and records. Medical history significant for hypertension, HOCM, family history sudden cardiac sp ICD placement, DM2 on oral meds, sleep apnea, restless leg syndrome as per records, bowel perforation status post surgery, mood disorder. Recent confinement last September 2017 for altered mental status. Patient noted to have jerking of the upper and lower extremities. Sbsequently intubated in the ER for airway protection. Involuntary movements/confusion attributed to multiple neuropsych medications. The last few days, patient noted aches all over, generalized headache from coughing, cough productive of yellow sputum, sick contacts, some coughing associated w/ choking with food intake from time to time. No chest pain. Increasing shortness of breath, no unusual swelling, fluid retention, or weight gain. At the Emergency Room, the patient found to be flu positive. Received Tamiflu, Solu-Medrol and breathing treatment for bronchitis. Patient given aspirin for abnormal troponin as well. Physical Exam (per Admitting): PHYSICAL EXAMINATION: VITAL SIGNS: Blood pressure was noted to be 171/99, later 134/94, pulse rate 90, RR 27, temperature 37, sats 90 on room air. GENERAL: Noted to be obese, anxious, min respiratory distress, restless. SKIN: Normal color, warm. HEENT: [place] palpebral conjunctiva. Flushed face. Dry mucosa. No ptosis. NECK: Short, supple. CHEST: Decreased breath sounds. Tender, granulomatous lesion on the right pacemaker site. ABDOMEN: Some distention, nontender. EXTREMITIES: No LE edema. No gross deformity. No tenderness. NEUROLOGIC: Coherent except for some restlessness. Hospital Course Shortness of breath: Likely secondary to Influenza, Bronchitis No signs of sepsis CXR:mild pulmonary vascular congestion, right basilar opacities suggesting atelectasis. H/O chronic diastolic heart failure Continue Tamiflu,clindamycin Day#2 Saturating 99% on room air speech eval Chronic Elevation of Troponin Troponin trending down Denies chest pain EKG: No acute signs of ischemia advised to follow up with her residential team leader as outpatient HTN: stable continue metoprolol H/O HOCM/familial sudden cardiac S/P ICD continue BB DM II: BGs levels initially elevated likely secondary to solu-medrol A1C:14.6 Glycemic management per Pharmacy Admits to being non compliant with diet Counseled about dietary changes and physical activity Advised to be started on Insulin therapy, patient would like to discuss with PCP Will add januvia 50mg daily Takes Metformin 500mg BID at home Thrombocytopenia secondary to viral illness monitor Possible infected granuloma, R ICD site continue clindamycin Improving, Advised to follow up with surgery as outpatient if not improvement with antibiotics DVT px: SCDs RE thrombocytopenia Code Status Full code Disposition: Plan to discharge home Today Follow up with your PCP on 02/05/18 at 1:15pm Follow up with your Implementation Project Manager as suggested Discuss with your doctor regarding Insulin therapy as suggested Consider following up with your surgeon if your lesion on chest doesn't improve with antibiotics Seek immediate medical attention if your symptoms reoccur or worsen Total time spent on discharge = 33 minutes This includes examination of the patient, discharge planning, medication reconciliation, and communication with other providers. Discharge Instructions Discharge Instructions Date of Service Feb 02, 2018. Admission Reason for Admission: Pulmonary Congestion, Sob Discharge Discharge Diagnosis / Problem: Influenza, Bronchitis Discharge Goals Goal(s): Decrease discomfort, Improve function Activity Recommendations Activity Limitations: resume your previous activity Exercise/Sports Limitations: as tolerated . Instructions / Follow-Up Instructions / Follow-Up Follow up with your PCP on 02/05/18 at 1:15pm Follow up with your Implementation Project Manager as suggested Discuss with your doctor regarding Insulin therapy as suggested Consider following up with your surgeon if your lesion on chest doesn't improve with antibiotics Seek immediate medical attention if your symptoms reoccur or worsen Current Hospital Diet Patient's current hospital diet: Diabetes Type 2 Diet, AHA Diet (Heart Healthy) Discharge Diet Recommended Diet: AHA Diet (Heart Healthy), Diabetes Type 2 Diet Pending Studies Studies pending at discharge: no Laboratory Results Hemoglobin A1c Test 02/02/18 05:43 Range/Units Estimated Average Glucose 372 mg/dl Hemoglobin A1c 14.6 H 4.5-5.6 % Medical Emergencies . Who to Call and When: Medical Emergencies: If at any time you feel your situation is an emergency, please call 911 immediately. . Non-Emergent Contact Non-Emergency issues call your: Primary Care Provider Call Non-Emergent contact if: you have a fever, your pain is not controlled, your pain is worsening, your pain is unusual for you, your pain is concerning you, you have any medication questions Seek immediate medical attention if your symptoms reoccur or worsen . . "Provider Documentation" section prepared by Ned Carroll. .
[2018-02-02 11:04] VITALS: BP 133/87; PULSE 80; TEMP 36.3; O2SAT 93
[2018-02-02 12:51] VITALS: BP 133/87; PULSE 80; TEMP 36.3; O2SAT 93
[2018-02-02] MEDS ORDERED: INSULIN GLARGINE SOLOSTAR 100 UNITS/ML 3 ML PEN SC SCH (21:00)
== END 2018-02-02 13:25 | disposition home or self-care (01) | DRG 195 ==
LOC: C.EDB 20:23 → C.EDINP 02-01 01:01 → ENRESERV 02-01 12:55 → C.2T 02-01 13:49
PROVIDERS: ADMIT Internal Medicine; ATTEND Internal Medicine
DX: J10.1 Influenza due to other identified influenza virus with other respiratory manifestations (principal); J40 Bronchitis, not specified as acute or chronic; R79.89 Other specified abnormal findings of blood chemistry; D69.59 Other secondary thrombocytopenia; L92.9 Granulomatous disorder of the skin and subcutaneous tissue, unspecified; I10 Essential (primary) hypertension; E11.9 Type 2 diabetes mellitus without complications; G25.81 Restless legs syndrome; F39 Unspecified mood [affective] disorder; G47.30 Sleep apnea, unspecified; Z91.11 Patient's noncompliance with dietary regimen; Z86.79 Personal history of other diseases of the circulatory system; Z95.810 Presence of automatic (implantable) cardiac defibrillator; Z87.19 Personal history of other diseases of the digestive system; Z90.49 Acquired absence of other specified parts of digestive tract; Z98.890 Other specified postprocedural states; Z79.51 Long term (current) use of inhaled steroids; Z79.82 Long term (current) use of aspirin; Z88.0 Allergy status to penicillin; Z88.1 Allergy status to other antibiotic agents; Z88.2 Allergy status to sulfonamides; Z88.8 Allergy status to other drugs, medicaments and biological substances; Z91.048 Other nonmedicinal substance allergy status; Z82.41 Family history of sudden cardiac death

== ENCOUNTER 2018-03-23 21:50 | Emergency (ER) | payer BC ==
[~2018-03-23] VITALS: Ht 152.4 cm; Wt 71.1 kg
[~2018-03-23 21:50] MED LIST changes: -ASPI81TA28 PO; -ATV5X PO; +CLC150 PO; -CYM60 PO; +ESCI1TAB6 PO; -GABA-1219 PO; +LCTX PO; +METF-841 PO; +MIRT30TA2 PO
[2018-03-23 22:02] VITALS: TEMP 36.9; Ht 152.4 cm; Wt 71.1 kg
[2018-03-23] MEDS ORDERED: DICY10CA12 PO (22:03)
[2018-03-23] MEDS ORDERED: ASPI81TA28 PO (22:32)
[2018-03-23] MEDS ORDERED: CYM60 PO (22:32)
[2018-03-23] MEDS ORDERED: GABA-1219 PO (22:32)
[2018-03-23] MEDS ORDERED: FLV1 PO (22:49)
[2018-03-23] MEDS ORDERED: TPRSR25 PO (22:49)
[2018-03-23] MEDS ORDERED: LSX20 PO (22:49)
[2018-03-23] MEDS ORDERED: GLC500 PO (22:50)
[2018-03-23] MEDS ORDERED: VNTHFA/IN INH (22:50)
[2018-03-23] MEDS ORDERED: SNG10 PO (22:50)
[2018-03-23] MEDS ORDERED: ADVIN25/60 INH (22:50)
[2018-03-23] MEDS ORDERED: TPRSR/25 PO (22:50)
--- NOTE | 2018-03-23 22:52 | EMERGENCY ROOM VISIT NOTE ---
History Report prepared by Tash: Frannie Oconnor Under the Supervision of: Dr. Doug Andrade M.D. First contact with patient: 22:40 Chief Complaint: ED VAG BLEEDING Stated Complaint: VAGINAL BLEEDING History of Present Illness The patient is a 58 year old female who presents to the Emergency Room with complaints of episodes of vaginal bleeding beginning today. The patient reports this has never happened to her before. The patient reports she has not had a menstrual period for 10 years. She notes abdominal pain and back pain. She reports when she urinated today she had the episode of vaginal bleeding. She had two episodes of vaginal bleeding. She reports some blood when she wipes. She denies saturating any pads in between the two episodes of vaginal bleeding. She denies any shortness of breath, chest pain, nausea, vomiting, or fever. The patient denies any new medications. Source of History: patient Onset: this evening Position: other (vaginal) Quality: other (bleeding) Timing: other (episodes) Associated Symptoms: No fevers, No chest pain, No SOB, No nausea, No vomiting Review of Systems See HPI for pertinent positives and negatives. A total of ten systems were reviewed and were otherwise negative. Past Medical & Surgical Medical Problems: (1) Acute respiratory failure (2) Depression (3) Diabetes mellitus, type 2 (4) Diverticulitis (5) Elevated troponin (6) History of colostomy reversal (7) HOCM (hypertrophic obstructive cardiomyopathy) (8) Hydronephrosis of right kidney (9) Hypertension (10) Pancreatic cyst (11) Pulmonary congestion (12) Restless leg syndrome (13) Sleep apnea (14) SOB (shortness of breath) (15) Transaminitis Surgical Problems: (1) History of colostomy reversal (2) S/P appendectomy (3) Status post appendectomy (4) Status post internal cardiac defibrillator procedure (5) Status post partial resection of colon Family History Gastric cancer DAUGHTER Hyperlipidemia MOTHER Hypertrophic cardiomyopathy FATHER Seizure disorder DAUGHTER Social History Smoking Status: Never Smoker Drug Use: none Marital Status: Housing Status: lives with family Occupation Status: retired Current/Historical Medications Scheduled Aspirin (Aspirin Ec), 81 MG PO QAM Dicyclomine Hcl (Dicyclomine Hcl), 10 MG PO BID Duloxetine HCl (Duloxetine HCl), 60 MG PO DAILY Escitalopram Oxalate (Lexapro), 5 MG PO HS Fluticasone Prop/Salmeterol (Advair Diskus 250/50 60 Dose), 1 PUFF INH BID Fluticasone Propionate (Flovent Hfa), 2 PUFFS INH BID Folic Acid (Folic Acid), 1 MG PO DAILY Gabapentin (Gabapentin), 300 MG PO TID Metformin HCl (Metformin HCl), 1,000 MG PO BIDM Metoprolol Succinate (Metoprolol Succinate ER), 25 MG PO QPM Metoprolol Succinate (Metoprolol Succinate ER), 50 MG PO QAM Mirtazapine (Remeron), 30 MG PO HS Montelukast Sod (Montelukast Sodium), 30 MG PO HS Omeprazole (Prilosec), 40 MG PO DAILY Ropinirole Hydrochloride (Requip), 0.5 MG PO HS Sertraline HCl (Sertraline HCl), 200 MG PO DAILY Scheduled PRN Albuterol Hfa (Ventolin Hfa), 2 PUFFS INH Q4H PRN for Wheezing Diphenoxylate/Atropine (Lomotil), 1 TAB PO QID PRN for Diarrhea Furosemide (Furosemide), 20 MG PO DAILY PRN for Weight Gain Sumatriptan Succinate (Imitrex), 50 MG PO UD PRN for Migraine Allergies Coded Allergies: Adhesives (Verified Allergy, Intermediate, blistering, 03/08/18) Sulfa Antibiotics (Verified Allergy, Intermediate, swelling, 03/08/18) Doxycycline (Verified Allergy, Unknown, UNKNOWN, 03/08/18) Penicillins (Verified Allergy, Unknown, ZOSYN = FLUSHED FASE, ITCHING, ) FLUSHED FACE, ITCHING TOLERATED PRIMAXIN 2013 ADMISSION Physical Exam Vital Signs Date Time Temp Pulse Resp B/P (MAP) Pulse Ox O2 Delivery O2 Flow Rate FiO2 03/24/18 01:03 85 18 118/71 97 03/24/18 00:13 89 18 128/75 96 Room Air 03/23/18 22:02 36.9 90 18 158/79 92 Room Air Physical Exam GENERAL: Awake, alert, well-appearing, in no distress HENT: Normocephalic, atraumatic. Oropharynx unremarkable. EYES: Normal conjunctiva. Sclera non-icteric. NECK: Supple. No nuchal rigidity. FROM. No JVD. RESPIRATORY: Clear to auscultation. CARDIAC: Regular rate, normal rhythm. Extremities warm and well perfused. Pulses equal. ABDOMEN: Soft, non-distended. No tenderness to palpation. No rebound or guarding. No masses. RECTAL: Deferred. : Pelvic exam demonstrates scant blood in vaginal vault without active bleeding from cervix. MUSCULOSKELETAL: Chest examination reveals no tenderness. The back is symmetrical on inspection without obvious abnormality. There is no CVA tenderness to palpation. No joint edema. LOWER EXTREMITIES: Calves are equal size bilaterally and non-tender. No edema. No discoloration. NEURO: Normal sensorium. No sensory or motor deficits noted. SKIN: No rash or jaundice noted. Medical Decision & Procedures Laboratory Results 03/23/18 23:24 Red Blood Count 4.58, Mean Corpuscular Volume 86.0, Mean Corpuscular Hemoglobin 28.4, Mean Corpuscular Hemoglobin Concent 33.0, Mean Platelet Volume 9.0, Neutrophils (%) (Auto) 80.1, Lymphocytes (%) (Auto) 13.4, Monocytes (%) (Auto) 4.8, Eosinophils (%) (Auto) 1.2, Basophils (%) (Auto) 0.2, Neutrophils # (Auto) 8.66, Lymphocytes # (Auto) 1.45, Monocytes # (Auto) 0.52, Eosinophils # (Auto) 0.13, Basophils # (Auto) 0.02 03/23/18 23:24 Test 03/23/18 22:55 03/23/18 23:24 Urine Color YELLOW Urine Appearance CLOUDY (CLEAR) Urine pH 5.0 (4.5-7.5) Urine Specific Stirling 1.023 (1.000-1.030) Urine Protein NEG (NEG) Urine Glucose (UA) NEG (NEG) Urine Ketones NEG (NEG) Urine Occult Blood 2+ (NEG) Urine Nitrite NEG (NEG) Urine Bilirubin NEG (NEG) Urine Urobilinogen NEG (NEG) Urine Leukocyte Esterase LARGE (NEG) Urine WBC (Auto) >30 /hpf (0-5) Urine RBC (Auto) >30 /hpf (0-4) Urine Hyaline Casts (Auto) 10-30 /lpf (0-5) Urine Epithelial Cells (Auto) >30 /lpf (0-5) Urine Bacteria (Auto) NEG (NEG) White Blood Count 10.81 K/uL (4.8-10.8) Red Blood Count 4.58 M/uL (4.2-5.4) Hemoglobin 13.0 g/dL (12.0-16.0) Hematocrit 39.4 % (37-47) Mean Corpuscular Volume 86.0 fL (80-100) Mean Corpuscular Hemoglobin 28.4 pg (25-34) Mean Corpuscular Hemoglobin Concent 33.0 g/dl (32-36) Platelet Count 210 K/uL (130-400) Mean Platelet Volume 9.0 fL (7.4-10.4) Neutrophils (%) (Auto) 80.1 % Lymphocytes (%) (Auto) 13.4 % Monocytes (%) (Auto) 4.8 % Eosinophils (%) (Auto) 1.2 % Basophils (%) (Auto) 0.2 % Neutrophils # (Auto) 8.66 K/uL (1.4-6.5) Lymphocytes # (Auto) 1.45 K/uL (1.2-3.4) Monocytes # (Auto) 0.52 K/uL (0.11-0.59) Eosinophils # (Auto) 0.13 K/uL (0-0.5) Basophils # (Auto) 0.02 K/uL (0-0.2) RDW Standard Deviation 55.5 fL (36.4-46.3) RDW Coefficient of Variation 17.6 % (11.5-14.5) Immature Granulocyte % (Auto) 0.3 % Immature Granulocyte # (Auto) 0.03 K/uL (0.00-0.02) Prothrombin Time 10.5 SECONDS (9.0-12.0) Prothromb Time International Ratio 1.0 (0.9-1.1) Activated Partial Thromboplast Time 26.0 SECONDS (21.0-31.0) Partial Thromboplastin Ratio 1.0 Anion Gap 5.0 mmol/L (3-11) Est Creatinine Clear Calc Drug Dose 46.6 ml/min Estimated GFR () 61.2 Estimated GFR (Non- 52.8 BUN/Creatinine Ratio 13.9 (10-20) Calcium Level 9.1 mg/dl (8.5-10.1) Total Bilirubin 0.4 mg/dl (0.2-1) Direct Bilirubin 0.1 mg/dl (0-0.2) Aspartate Amino Transf (AST/SGOT) 31 U/L (15-37) Alanine Aminotransferase (ALT/SGPT) 31 U/L (12-78) Alkaline Phosphatase 132 U/L (45-117) Total Protein 7.6 gm/dl (6.4-8.2) Albumin 3.7 gm/dl (3.4-5.0) Lipase 207 U/L (73-393) Laboratory results reviewed by me ED Course 2243: The patient was evaluated in room B7. A complete history and physical exam was performed. Medical Decision I reviewed the patient's past medical history, medications, and the nursing notes as described above.Prior records/ancillary studies reviewed. Differential diagnosis: Etiologies such as ectopic , dysfunction uterine bleeding, bleeding dyscrasia, trauma, infection, as well as others were entertained. Patient is a 58-year-old woman who presents emergency department with 2 episodes of vaginal bleeding that occurred this afternoon per hpi. Arrival the patient is well-appearing in no acute distress, afebrile stable vital signs. Abdominal exam is benign. Labs unremarkable H/H within normal limits. UA is dirty and patient denies any urinary symptoms. Will wait for cultures to inform need for treatment. Pelvic ultrasound limited secondary to the patient' s inability to cooperate with the exam however unremarkable. Pelvic exam demonstrates scant blood in vaginal vault without active bleeding from cervix. Plan for outpatient [facility] follow-up for reevaluation and likely biopsy. Findings and plan for follow-up reviewed with patient. Patient agreeable and d/c'd per discharge instructions. Medication Reconcilliation Current Medication List: was personally reviewed by me Impression Primary Impression: Abnormal vaginal bleeding Scribe Attestation The scribe's documentation has been prepared under my direction and personally reviewed by me in its entirety. I confirm that the note above accurately reflects all work, treatment, procedures, and medical decision making performed by me. Departure Information Referrals Suad De León D.O. (PCP) Odin Swartz M.D. Patient Instructions ED Bleed Irregular Vaginal, My [facility] Additional Instructions Please follow up with gynecology, Dr. Swartz, next week for re-evaluation and likely planning for endometrial biopsy. Otherwise, your exam, lab results, and ultrasound did not show signs of an emergent condition at this time. Return to the emergency department for worsening symptoms as described in the accompanying instructions.
[2018-03-23] MEDS ORDERED: ESCI1TAB6 PO (22:54)
[2018-03-23] MEDS ORDERED: MIRT30TA3 PO (22:54)
[2018-03-23] MEDS ORDERED: FLVHFA220 INH (22:54)
[2018-03-23] MEDS ORDERED: SUMA25TA12 PO (22:57)
[2018-03-23 23:32] LABS: BASO % 0.2 %; BASO ABS # 0.02 K/uL (0-0.2); EOS % 1.2 %; EOS ABS # 0.13 K/uL (0-0.5); HEMATOCRIT 39.4 % (37-47); IG# 0.03 K/uL (0.00-0.02); LYMPH % 13.4 %; LYMPH ABS # 1.45 K/uL (1.2-3.4); MEAN CORPUSCULAR HEMOGLOBIN 28.4 pg (25-34); MONO % 4.8 %; MONO ABS # 0.52 K/uL (0.11-0.59); NEUT % 80.1 %; NEUT ABS # 8.66 K/uL (1.4-6.5); PLATELET COUNT 210 K/uL (130-400); RED CELL DISTRIBUTION WIDTH CV 17.6 % (11.5-14.5); RED CELL DISTRIBUTION WIDTH SD 55.5 fL (36.4-46.3); WHITE BLOOD COUNT 10.81 K/uL (4.8-10.8)
[2018-03-23 23:49] LABS: ALBUMIN 3.7 gm/dl (3.4-5.0); CALCIUM 9.1 mg/dl (8.5-10.1); CREATININE 1.13 mg/dl (0.60-1.20); POTASSIUM 4.6 mmol/L (3.5-5.1)
[2018-03-23 23:52] LABS: TOTAL PROTEIN 7.6 gm/dl (6.4-8.2)
[2018-03-24 01:03] VITALS: BP 118/71; PULSE 85; O2SAT 97
--- NOTE | 2018-03-24 06:27 | DIAGNOSTIC IMAGING REPORT ---
PELVIC COMPLETE NON OB HISTORY: 58 years-old Female abnormal vaginal bleeding acute vaginal bleeding COMPARISON: CT abdomen and pelvis 10/13/2017 TECHNIQUE: Multiple real-time significant images of the deep pelvic structures were obtained transabdominally and transvaginally assessing grayscale appearance FINDINGS: Study is limited secondary to lack of patient cooperation and continued movement throughout the exam. Anteflexed uterus measures 5.4 x 2.9 x 3.9 cm and is unremarkable without myometrial mass lesion. Endometrium measures 0.3 cm and is homogeneous. The ovaries are obscured by bowel gas. No adnexal mass lesions identified. No significant free pelvic fluid. IMPRESSION: 1. Unremarkable sonographic appearance of the uterus and endometrium. 2. Bilateral ovaries are obscured by bowel gas. No adnexal mass lesions identified. The above report was generated using voice recognition software. It may contain grammatical, syntax or spelling errors. Electronically signed by: Vidal Jay M.D. 03/24/2018 6:25 AM Dictated Date/Time: 03/24/2018 6:23 AM
== END 2018-03-24 01:11 | disposition home or self-care (01) ==
LOC: C.EDB 21:51
DX: N93.9 Abnormal uterine and vaginal bleeding, unspecified (principal); E11.9 Type 2 diabetes mellitus without complications; I10 Essential (primary) hypertension; Z79.82 Long term (current) use of aspirin; Z79.84 Long term (current) use of oral hypoglycemic drugs; Z79.899 Other long term (current) drug therapy; Z88.0 Allergy status to penicillin; Z88.1 Allergy status to other antibiotic agents; Z88.2 Allergy status to sulfonamides; Z88.8 Allergy status to other drugs, medicaments and biological substances

== ENCOUNTER 2018-11-28 10:36 | Inpatient (IN) ==
[2018-11-28 11:38] LABS: Basophils # (auto) 0.01 K/uL (0-0.2); Basophils % (auto) 0.1 %; Eosinophils # (auto) 0.06 K/uL (0-0.5); Eosinophils % (auto) 0.7 %; Hematocrit (blood only) 37.7 % (37-47); Hemoglobin 12.4 g/dL (12.0-16.0); Immature Granulocytes # (auto) 0.02 K/uL (0.00-0.02); Immature Granulocytes % (auto) 0.2 %; Lymphocytes % (auto) 12.2 %; Mean Corpuscular Hgb Conc 32.9 g/dL (32-36); Mean Corpuscular Volume 89.3 fL (80-100); Mean Platelet Volume 9.6 fL (7.4-10.4); Monocytes # (auto) 0.33 K/uL (0.11-0.59); Neutrophils # (auto) 6.79 K/uL (1.4-6.5); Neutrophils % (auto) 82.8 %; Platelet Count 181 K/uL (130-400); RDW Coefficient of Variation 16.8 % (11.5-14.5); RDW Standard Deviation 54.8 fL (36.4-46.3); Red Blood Count 4.22 M/uL (4.2-5.4); White Blood Count 8.21 K/uL (4.8-10.8)
[2018-11-28 11:47] LABS: INR 1.1 (0.9-1.1); Partial Thromboplastin Time 25.2 Seconds (21.0-31.0); Prothrombin Time 10.7 Seconds (9.0-12.0)
--- NOTE | 2018-11-28 11:50 | XRay Report ---
SINGLE VIEW CHEST CLINICAL HISTORY: Dyspnea. FINDINGS: An AP, portable, upright chest radiograph is compared to study dated 09/09/2018 and correla palak with chest CT dated 08/08/2018. The examination is degraded by portable technique and patient rota tion. A 2-lead cardiac AICD is unchanged in position. The heart is enlarged. There is mild pulmonary vascular congestion. Bibasilar atelectasis is observed. No airspace consolidation or large pleural ef fusion is identified. No pneumothorax is seen. The skeletal structures are osteopenic. The bony thora x is grossly intact. IMPRESSION: Cardiomegaly and AICD with mild pulmonary vascular congestion. Electronically signed by: Jorge Avila M.D. 11/28/2018 11:48 AM
[2018-11-28 11:54] LABS: Alanine Aminotransferase 22 U/L (12-78); Albumin Level 3.7 gm/dl (3.4-5.0); Aspartate Aminotransferase 22 U/L (15-37); BUN Creatinine Ratio 10.2 (10-20); Blood Urea Nitrogen 11 mg/dl (7-18); Calcium 8.7 mg/dl (8.5-10.1); Carbon Dioxide 27 mmol/L (21-32); Chloride 110 mmol/L (98-107); Est GFR (African American) 68.4; Glucose 120 mg/dl (70-99); Magnesium 1.5 mg/dl (1.8-2.4); Potassium 3.3 mmol/L (3.5-5.1); Sodium 143 mmol/L (136-145)
[2018-11-28 12:08] LABS: Alkaline Phosphatase 148 U/L (45-117); Bilirubin,Total 0.8 mg/dl (0.2-1); Globulin 3.6 gm/dl (2.5-4.0); Total Protein 7.3 gm/dl (6.4-8.2); Troponin I 0.171 ng/ml (0-0.045)
[2018-11-28] MEDS ORDERED: POTASSIUM CHLORIDE 10 MEQ TABCR PO STA (12:46)
[2018-11-28] MEDS ORDERED: MAGNESIUM OXIDE 400 MG TAB PO STA (12:46)
--- NOTE | 2018-11-28 14:38 | History & Physical Report ---
Date of Service November 28, 2018 Assessment & Plan (1) Shortness of breath: (2) Acute on chronic diastolic CHF (congestive heart failure): Reported wheezing, SOB with increased SOB on exertion past 3 days. Past 1- 2 days R shoulder pain/R chest pain/R arm pain. Some intermittent dizziness. Denies diaphoresis. No fever/chills. Slight dry cough started while in ER today. In ER afebrile, P: 80- 90, R: 20-24, BP: 148/84-154/73, Pulse ox: 90-98% on RA. WBC: 8, troponin: 0.17 (0.09 in 08/2018, chronically elevated). No acute ekg changes compared to previous. Negative flu swab CXR: Cardiomegaly and AICD with mild pulmonary vascular congestion. -pending BNP -lasix 20mg IV today, monitor response -monitor I&O's, low sodium diet -continue spironolactone -cardiology consult -monitor bmp (3) Hypertrophic cardiomyopathy: S/P prophylactic pacer/defibrillator (4) COPD (chronic obstructive pulmonary disease): Was started on prednisone taper outpatient 2 days ago. No wheezing on exam today -monitor -xopenex/atrovent nebs -continue advair, singulair (5) Hypomagnesemia: magnesium: 1.5 Given 400mg magnesium po in ER -magnesium 1 GM IV -monitor magnesium (6) Hypokalemia: K: 3.3 Given potassium 20meq po in ER Will give potassium 20meq po tonight -monitor electrolytes (7) Elevated troponin: Chronically elevated troponin Troponin: 0.17. no acute ekg changes -trend troponin -repeat EKG am (8) Hypertension: Stable -continue metoprolol -got IV lasix -monitor (9) Diabetes mellitus, type 2: HA1c: 6.5 on 09/2018 -hold metformin while in hospital -Novolog, Lantus sliding scale (10) HLD (hyperlipidemia): -continue statin (11) CADENCE (obstructive sleep apnea): Intolerant to CPAP Reports is to have another out patient sleep study -oxygen 2L HS (12) GERD (gastroesophageal reflux disease): -continue PPI (13) CKD (chronic kidney disease), stage III: Cr: 1.03, GFR: 59. at baseline -monitor renal functions (14) Anxiety: (15) Depression: -continue cymbalta (16) Restless leg syndrome: -continue requip, remeron DVT Prophylaxis -Lovenox SQ Follows with Dr Suad De León for routine care Pt was seen with Dr Christianson. See addendum History of Present Illness Chief Complaint: SOB Primary Care Provider: Suad De León Pt is 58 y/o F with PMH chronic diastolic CHF, hypertorphic nonobstructive cardiomyopathy, h/o genetic mutation consistent with cardiomyopathy s/p prophylactic pacer/defibrillator in 08/2015, labile, HTN, obesity, depression, anxiety, COPD, DM II, CADENCE intolerant to CPAP and on 2L O2 HS, CKD III presented to ER with c/o SOB. Pt states 3 days ago started with SOB and wheezing. Saw PCP 11/26/18 and had negative CXR, found to be wheezing on exam and given prednisone taper and neb treatment. Pt states no improvement and worsening SOB with exertion. States 2 days ago had slight swelling BLE however that has improved. States 1-2 days ago started with right shoulder pain radiating to right neck, right chest, right arm, worse with ROM. Feels like has slight dry cough today since being in ER. She states it feels like when she had "too much fluid" in the past. Taking her temp and highest 99.4F. Reports chronically sleeps with head elevated. Takes lasix 40mg daily and 80 mg on mondays and , however today only took 40mg daily. Reports some intermittent slight right sided MILLARD, has not needed to use imitrex and no photophobia. States some slight dizziness past couple of days. Denies any falls. Denies increased sodium in diet. Denies chills, diaphoresis, N/V/D/C, syncope, vision changes, neck pain, CP, SOB, orthopnea, palpitations, cough, sore throat, choking, otalgia, rhinorrhea, abdominal pain, paresthesias, weakness, extremity weakness, rashes, urinary symptoms. Denies injury/trauma. Hx echo: 07/2018: LVH, no wall abnormalities, EF: 60-65%, grade II diastolic dysfunction, trace mitral regurgitation, moderate left atrial enlargement. Allergies Allergy/AdvReac Type Severity Reaction Status Date / Time adhesive Allergy Intermediate blistering Verified 11/28/18 11:54 Sulfa (Sulfonamide Allergy Intermediate swelling Verified 11/28/18 11:54 Antibiotics) doxycycline Allergy Unknown UNKNOWN Verified 11/28/18 11:54 Penicillins Allergy Unknown Flushing, Verified 11/28/18 11:54 ITCHING Home Medications Home Medications Medication Instructions Recorded Confirmed Type albuterol sulfate [Ventolin HFA] 2 puff INHALATION QID PRN 08/09/18 11/28/18 History aspirin [Aspir-81] 81 mg PO QAM 08/09/18 11/28/18 History atorvastatin [Lipitor] 40 mg PO QAM 08/09/18 11/28/18 History duloxetine 60 mg PO QDL 08/09/18 11/28/18 History folic acid 1 mg PO HS 08/09/18 11/28/18 History gabapentin [Neurontin] 600 mg PO TID 08/09/18 11/28/18 History mirtazapine 30 mg PO HS 08/09/18 11/28/18 History omeprazole 40 mg PO QAM 08/09/18 11/28/18 History ropinirole 0.5 mg PO HS 08/09/18 11/28/18 History sumatriptan succinate 50 mg PO DIRECTED PRN 08/09/18 11/28/18 History metformin 1,000 mg PO BIDM 08/12/18 11/28/18 History albuterol sulfate 3 ml INHALATION Q4H PRN 09/09/18 11/28/18 History fluticasone-salmeterol 1 puff INHALATION BID 09/09/18 11/28/18 History metoprolol succinate 75 mg PO DAILY 09/09/18 11/28/18 History furosemide [Lasix] 40 mg PO DAILY 11/28/18 11/28/18 History furosemide [Lasix] 40 mg PO UD 11/28/18 11/28/18 History montelukast 10 mg PO PM 11/28/18 11/28/18 History spironolactone 12.5 mg PO DAILY 11/28/18 11/28/18 History Past Med/Surg History Medical History CKD (chronic kidney disease), stage III (Chronic) GERD (gastroesophageal reflux disease) (Chronic) HLD (hyperlipidemia) (Chronic) Hypertension (Chronic) Anxiety (Chronic) Cardiac defibrillator in place (Chronic) 2014 CHF (congestive heart failure) Asthma (Chronic) COPD (chronic obstructive pulmonary disease) (Chronic) Fatty (change of) liver, not elsewhere classified (Chronic) Arthritis (Chronic) Surgical History History of appendectomy (Resolved) H/O section (Resolved) 1979 & 1982 History of colostomy reversal (Resolved) bowel perf 2013 with colostomy reversed in 2014 H/O hernia repair (Resolved) 2015 Social History Current Living Situation: Spouse Other Information That Helps Us Care for You: No Feels Safe at Home: Yes Safety Concerns: Feels Safe At This Time Smoking Status: Never smoker Do You Dip or Chew Tobacco: No Second Hand Exposure: No Tobacco Cessation Education Requested by Patient: No Hx Alcohol Use: No Hx Substance Use: No Beliefs That Will Affect Care: None Preferred Language: Swiss Communication Ability: Effective Microphone Boom Operator Required: No Review of Systems All systems reviewed & are unremarkable except as noted in HPI & below Physical Exam 2 Vital Signs (Past 24 Hours): Last Vital Signs Temp 36.7 C 11/28/18 10:49 Pulse 81 11/28/18 13:02 Resp 24 11/28/18 13:02 BP 154/73 H 11/28/18 13:02 Pulse Ox 98 11/28/18 13:02 Physical Exam: General: no acute distress, obese Head: normocephalic, atraumatic Eyes: PERRL, EOM's intact, conjunctiva non-injected, anicteric ENT: normal inspection external ears, nose, mucous membranes moist Neck: supple, trachea midline, non-tender Lungs: no acute respiratory distress or retractions, R: 22, pulse ox: 95% on RA , +slight bibasilar crackles, no wheezing CV: RRR, no murmur, no significant pretibial edema. right chest and right shoulder tender to palpation Abd: normal BS, soft, non-tender Ext: no cyanosis, no eyrthema, no calf tenderness Neuro: A&O x 3, no focal deficits noted, normal affect Skin: warm, dry Results & Data Laboratory Results Short CBC 11/28/18 Range/Units 11:25 WBC 8.21 (4.8-10.8) K/uL Hgb 12.4 (12.0-16.0) g/dL Hct 37.7 (37-47) % Plt Count 181 (130-400) K/uL BMP 11/28/18 11:25 Sodium 143 Potassium 3.3 L Chloride 110 H Carbon Dioxide 27 BUN 11 Creatinine 1.03 Glucose 120 H Calcium 8.7 Cardiac Enzymes 11/28/18 Range/Units 11:25 Troponin I 0.171 H* (0-0.045) ng/ml Liver Function 11/28/18 Range/Units 11:25 Total Bilirubin 0.8 (0.2-1) mg/dl AST 22 (15-37) U/L ALT 22 (12-78) U/L Alkaline Phosphatase 148 H (45-117) U/L Albumin 3.7 (3.4-5.0) gm/dl Diagnostic Findings CXR: IMPRESSION: Cardiomegaly and AICD with mild pulmonary vascular congestion. ECG Rate (beats per minute): 82 Rhythm: sinus rhythm Change: no significant change (from EKG's in 08/2018) Supervising Physician Co-Signing Physician Notes HISTORY: Record reviewed. Patient interviewed and examined. Care coordinated with Maria Alejandra Christina PA-C. Please refer to her documentation for patient's history. Briefly, 58 YO female with history of diastolic CHF due to underlying hypertrophic cardiomyopathy. Presented to ED with nonproductive cough and increasing SOB. No fever, pharyngitis, GI symptoms. EXAM: General- no distress Lungs- few basilar rales, mild wheezing; no respiratory distress Cardiovascular- RRR; II/ systolic murmur LSB; no gallop appreciated; + JVD; trace pretibial edema Abdomen- + bowel sounds, soft, nontender Extremities- no cyanosis; no calf tenderness Neuro- alert, oriented Skin- warm & dry DATA: Hemoglobin 12.4, white count 8210, platelet count 181,000. Potassium 3.3. Magnesium 1.5. Troponin I 0.171. BNP 2469. Influenza screen negative for influenza A/B per antigen assay. Other lab studies as noted. Chest x-ray reviewed and demonstrated cardiomegaly, pulmonary vascular congestion, implantable defibrillator. EKG performed at 1113 reviewed and demonstrated normal sinus rhythm at 82 / minute, LVH, nonspecific ST-T wave abnormalities. ASSESSMENT AND PLAN: Cough and dyspnea most likely secondary to exacerbation of diastolic CHF due to underlying hypertrophic cardiomyopathy. No evidence of infection at this time. Chronic elevation in serum troponin. Doubt acute coronary syndrome. Received a dose of IV furosemide this morning. Reassess examination and labs in the morning with further titration of diuretic therapy as necessary. Please refer to SERGIO Mcdonough's documentation for discussion of other issues. _ (1) Diabetes mellitus, type 2 Chronic kidney disease stage: stage 3 (moderate) Diabetes mellitus complication detail: with chronic kidney disease Diabetes mellitus complication status: with kidney complications Diabetes mellitus joint terminal attack controller insulin use: unspecified senior living insulin use status Diabetes mellitus macular edema: Diabetic retinopathy severity: Laterality: Proliferative retinopathy type: Qualified Code(s): E11.22 - Type 2 diabetes mellitus with diabetic chronic kidney disease; N18.3 - Chronic kidney disease, stage 3 ( moderate)
[2018-11-28] MEDS ORDERED: FUROSEMIDE 40 MG/4 ML VIAL IV STA (14:53)
--- NOTE | 2018-11-28 15:40 | Emergency Department Note ---
Entered by Reynaldo Cordoba acting as a scribe for ED Provider Note CHIEF COMPLAINT: Dyspnea HISTORY OF PRESENT ILLNESS: The patient is a 58 year old female who presents to the Emergency Room with complaints of dyspnea that began a few days ago. The patient's daughter at bedside adds that her breathing acutely worsened last night. The patient has a history of asthma and COPD and is on oxygen at home. She only wears the oxygen at night and as needed throughout the day. She did see her primary care office who administered a breathing treatment. She used another breathing treatment at home this morning at 0300, 8 hours ago. She does not believe the breathing treatments help. The patient also complains of right sided chest pain that she rates as a 6/10 in severity. This pain is not worsened with deep inspiration. She adds that she has intermittently had some neck and back pain, but she has not become diaphoretic at all. The patient denies any history of clots or recent long travel. She is not on any anticoagulation therapy. Pt denies LOC, headache, visual changes, nausea, vomiting, abdominal pain, melena, hematochezia, urinary symptoms, lymphadenopathy, rash, or other complaints. REVIEW OF SYSTEMS: See HPI for pertinent positives and negatives. A total of ten systems were reviewed and were otherwise negative. PMHx/PSHx: Cardiomyopathy CHF Hypoxia Anxiety HTN Cardiac defibrillator in place Asthma COPD Diabetes Appendectomy Colostomy Diverticulitis Diabetes Depression Appendectomy SOCIAL HISTORY: Patient lives at home. PHYSICAL EXAM: GENERAL: Awake, alert, very anxious-appearing, in no distress HENT: Normocephalic, atraumatic. Oropharynx unremarkable. EYES: PERRL. Normal conjunctiva. Sclera non-icteric. NECK: Inspection normal. Non-tender. Supple. No nuchal rigidity. FROM. No masses. RESPIRATORY: Dyspneic, increased work of breathing. No wheezes. No rales. CARDIAC: Normal rate. Normal rhythm. No murmurs. No rubs. Extremities warm and well perfused. Pulses equal. No JVD. GI: Soft, non-distended. No tenderness to palpation. No rebound or guarding. No masses. RECTAL: Deferred. MUSCULOSKELETAL: Atraumatic. Chest examination reveals no tenderness. The back is symmetrical on inspection without obvious abnormality. There is no CVA tenderness to palpation. No joint edema. LOWER EXTREMITIES: Calves are equal size bilaterally and non-tender. No edema. No discoloration. NEURO: Normal sensorium. No sensory or motor deficits noted. SKIN: No rash or jaundice noted. EMERGENCY DEPARTMENT COURSE: 1105: Past medical records reviewed. The patient was evaluated in room C2B, and a complete history and physical examination were performed. 1248: I updated the patient at this time. She is stable. 1315: I [facility] the [facility] She will evaluate the patient for further management. MEDICAL DECISION MAKING: Triage Nursing notes reviewed. The patient's presentation and history were concerning for chest pain or shortness of breath. Etiologies such as pneumonia, reactive airway disease, CHF, cardiac ischemia, pulmonary embolism, pneumothorax, COPD, musculoskeletal, infections, gastrointestinal, as well as others were entertained. Patient was evaluated.ECG did not reveal any acute changes. The patient had blood work obtained. Chest imaging ordered. Chest x-ray showed chronic changes but no acute pathology to explain her right-sided pain and shortness of breath. The patient had an unremarkable CBC and chemistry panel except for mild hypomagnesemia and hypokalemia. Her troponin was moderately elevated at 0.171. This was about double from her prior measurements. The patient appears to have a chronic elevation of her biomarkers. Because of her symptoms further management in the hospital will be necessary. I did discuss this with the patient and family. Consultation was made with the [facility] service. She was treated with oral potassium and magnesium to correct her deficiencies. IMPRESSION: Elevated Troponin Right-sided chest pain Hypomagnesemia Hypokalemia PLAN: Admitted to [facility] The scribe's documentation has been prepared under my direction and personally reviewed by me in its entirety. I confirm that the note above accurately reflects all work, treatment, procedures, and medical decision making performed by me. Impression & Plan Elevated troponin, Right-sided chest pain, Hypomagnesemia, Hypokalemia Past Med/Surg History Medical History CKD (chronic kidney disease), stage III (Chronic) GERD (gastroesophageal reflux disease) (Chronic) HLD (hyperlipidemia) (Chronic) Hypertension (Chronic) Anxiety (Chronic) Cardiac defibrillator in place (Chronic) 2014 CHF (congestive heart failure) Asthma (Chronic) COPD (chronic obstructive pulmonary disease) (Chronic) Fatty (change of) liver, not elsewhere classified (Chronic) Arthritis (Chronic) Surgical History History of appendectomy (Resolved) 1970s H/O section (Resolved) 1979 & 1982 History of colostomy reversal (Resolved) bowel perf 2013 with colostomy reversed in 2014 H/O hernia repair (Resolved) 2015 Social History Current Living Situation: Spouse Other Information That Helps Us Care for You: No Feels Safe at Home: Yes Safety Concerns: Feels Safe At This Time Smoking Status: Never smoker Do You Dip or Chew Tobacco: No Second Hand Exposure: No Tobacco Cessation Education Requested by Patient: No Hx Alcohol Use: No Hx Substance Use: No Beliefs That Will Affect Care: None Preferred Language: Icelandic Communication Ability: Effective Blue Crabber Required: No Results & Data Vital Signs Vital Signs - 24 hr 11/28/18 10:49 11/28/18 11:29 11/28/18 12:02 Temperature 36.7 C Temperature Source Oral Sepsis Recent Fever Within 48 Hours No Sepsis Action Taken by Nursing No Action Required Pulse Rate 90 81 Pulse Rate [Apical] Pulse Rhythm [Apical] Pulse Strength [Apical] Respiratory Rate 20 23 Respiratory Effort / Characteristics Non-Labored Respiratory Depth Normal Respiratory Pattern Regular Blood Pressure 148/84 H 133/76 Blood Pressure [Right Arm] Blood Pressure Mean 105 95 Blood Pressure Mean [Right Arm] Blood Pressure Position [Right Arm] Pulse Oximetry 96 98 98 Oxygen Delivery Method Room Air Nasal Cannula Oxygen Flow Rate 2 11/28/18 12:30 11/28/18 13:00 11/28/18 13:02 Temperature Temperature Source Sepsis Recent Fever Within 48 Hours Sepsis Action Taken by Nursing Pulse Rate 77 Pulse Rate [Apical] 81 Pulse Rhythm [Apical] Pulse Strength [Apical] Respiratory Rate 21 24 Respiratory Effort / Characteristics Non-Labored Spontaneous Non-Labored Spontaneous Respiratory Depth Normal Normal Respiratory Pattern Tachypnea Regular Blood Pressure 139/82 Blood Pressure [Right Arm] 154/73 H Blood Pressure Mean 101 Blood Pressure Mean [Right Arm] 100 Blood Pressure Position [Right Arm] Sitting Pulse Oximetry 99 98 Oxygen Delivery Method Room Air Room Air Oxygen Flow Rate 11/28/18 13:03 11/28/18 13:30 11/28/18 14:31 Temperature Temperature Source Sepsis Recent Fever Within 48 Hours Sepsis Action Taken by Nursing Pulse Rate 83 82 91 H Pulse Rate [Apical] Pulse Rhythm [Apical] Pulse Strength [Apical] Respiratory Rate 23 22 21 Respiratory Effort / Characteristics Respiratory Depth Respiratory Pattern Blood Pressure 154/73 H 159/87 H 125/65 Blood Pressure [Right Arm] Blood Pressure Mean 100 111 85 Blood Pressure Mean [Right Arm] Blood Pressure Position [Right Arm] Pulse Oximetry 98 98 83 L Oxygen Delivery Method Oxygen Flow Rate 11/28/18 15:03 Temperature Temperature Source Sepsis Recent Fever Within 48 Hours Sepsis Action Taken by Nursing Pulse Rate Pulse Rate [Apical] 82 Pulse Rhythm [Apical] Regular Pulse Strength [Apical] Normal Respiratory Rate 20 Respiratory Effort / Characteristics Non-Labored Spontaneous Respiratory Depth Normal Respiratory Pattern Regular Blood Pressure Blood Pressure [Right Arm] 139/83 Blood Pressure Mean Blood Pressure Mean [Right Arm] 101 Blood Pressure Position [Right Arm] Sitting Pulse Oximetry 98 Oxygen Delivery Method Nasal Cannula Oxygen Flow Rate 2 Home Medications Current Medication List: was personally reviewed by me Laboratory Data Attestation: I reviewed the patient's lab results. Result diagrams: 11/28/18 11:25 11/28/18 11:25 Lab Results 11/28/18 11/28/18 11/28/18 Range/Units 11:25 11:25 11:25 WBC 8.21 (4.8-10.8) K/uL RBC 4.22 (4.2-5.4) M/uL Hgb 12.4 (12.0-16.0) g/dL Hct 37.7 (37-47) % MCV 89.3 (80-100) fL MCH 29.4 (25-34) pg MCHC 32.9 (32-36) g/dL RDW Std Deviation 54.8 H (36.4-46.3) fL RDW Coeff of Rolan 16.8 H (11.5-14.5) % Plt Count 181 (130-400) K/uL MPV 9.6 (7.4-10.4) fL Immature Gran % (Auto) 0.2 % Neut % (Auto) 82.8 % Lymph % (Auto) 12.2 % [facility] % (Auto) 4.0 % Eos % (Auto) 0.7 % Baso % (Auto) 0.1 % Immature Gran # (Auto) 0.02 (0.00-0.02) K/uL Neut # (Auto) 6.79 H (1.4-6.5) K/uL Lymph # (Auto) 1.00 L (1.2-3.4) K/uL [facility] # (Auto) 0.33 (0.11-0.59) K/uL Eos # (Auto) 0.06 (0-0.5) K/uL Baso # (Auto) 0.01 (0-0.2) K/uL PT 10.7 (9.0-12.0) Seconds INR 1.1 (0.9-1.1) APTT 25.2 (21.0-31.0) Seconds PTT Ratio 1.0 Sodium 143 (136-145) mmol/L Potassium 3.3 L (3.5-5.1) mmol/L Chloride 110 H (98-107) mmol/L Carbon Dioxide 27 (21-32) mmol/L Anion Gap 6.0 (3-11) BUN 11 (7-18) mg/dl Creatinine 1.03 (0.6-1.2) mg/dl Est Cr Clr Drug Dosing Not Reportable Est GFR ( Amer) 68.4 Est GFR (Non-Af Amer) 59.0 BUN/Creatinine Ratio 10.2 (10-20) Glucose 120 H (70-99) mg/dl POC Glucose (70-99) Calcium 8.7 (8.5-10.1) mg/dl Magnesium 1.5 L (1.8-2.4) mg/dl Total Bilirubin 0.8 (0.2-1) mg/dl AST 22 (15-37) U/L ALT 22 (12-78) U/L Alkaline Phosphatase 148 H (45-117) U/L Troponin I 0.171 H* (0-0.045) ng/ml Total Protein 7.3 (6.4-8.2) gm/dl Albumin 3.7 (3.4-5.0) gm/dl Globulin 3.6 (2.5-4.0) gm/dl Albumin/Globulin Ratio 1.0 (0.9-2) Influenza Type A Ag (Neg) Influenza Type B Ag (Neg) 11/28/18 11/28/18 Range/Units 12:00 14:46 WBC (4.8-10.8) K/uL RBC (4.2-5.4) M/uL Hgb (12.0-16.0) g/dL Hct (37-47) % MCV (80-100) fL MCH (25-34) pg MCHC (32-36) g/dL RDW Std Deviation (36.4-46.3) fL RDW Coeff of Rolan (11.5-14.5) % Plt Count (130-400) K/uL MPV (7.4-10.4) fL Immature Gran % (Auto) % Neut % (Auto) % Lymph % (Auto) % [facility] % (Auto) % Eos % (Auto) % Baso % (Auto) % Immature Gran # (Auto) (0.00-0.02) K/uL Neut # (Auto) (1.4-6.5) K/uL Lymph # (Auto) (1.2-3.4) K/uL [facility] # (Auto) (0.11-0.59) K/uL Eos # (Auto) (0-0.5) K/uL Baso # (Auto) (0-0.2) K/uL PT (9.0-12.0) Seconds INR (0.9-1.1) APTT (21.0-31.0) Seconds PTT Ratio Sodium (136-145) mmol/L Potassium (3.5-5.1) mmol/L Chloride (98-107) mmol/L Carbon Dioxide (21-32) mmol/L Anion Gap (3-11) BUN (7-18) mg/dl Creatinine (0.6-1.2) mg/dl Est Cr Clr Drug Dosing Est GFR ( Amer) Est GFR (Non-Af Amer) BUN/Creatinine Ratio (10-20) Glucose (70-99) mg/dl POC Glucose 111 H (70-99) Calcium (8.5-10.1) mg/dl Magnesium (1.8-2.4) mg/dl Total Bilirubin (0.2-1) mg/dl AST (15-37) U/L ALT (12-78) U/L Alkaline Phosphatase (45-117) U/L Troponin I (0-0.045) ng/ml Total Protein (6.4-8.2) gm/dl Albumin (3.4-5.0) gm/dl Globulin (2.5-4.0) gm/dl Albumin/Globulin Ratio (0.9-2) Influenza Type A Ag Neg for Influ A (Neg) Influenza Type B Ag Neg for Influ B (Neg) Administered Medications Discontinued Medications Furosemide (Lasix) 20 mg IV NOW STA Stop: 11/28/18 14:54 Last Admin: 11/28/18 15:02 Dose: 20 mg Magnesium Oxide (Mag-Ox) 400 mg PO NOW STA Stop: 11/28/18 12:47 Last Admin: 11/28/18 13:01 Dose: 400 mg Potassium Chloride (Klor-Con M10) 20 meq PO NOW STA Stop: 11/28/18 12:47 Last Admin: 11/28/18 13:01 Dose: 20 meq Imaging Data Attestation: I personally reviewed and interpreted this imaging study as follows : Radiologist's Impression: SINGLE VIEW CHEST CLINICAL HISTORY: Dyspnea. FINDINGS: An AP, portable, upright chest radiograph is compared to study dated 09/09/2018 and correlated with chest CT dated 08/08/2018. The examination is degraded by portable technique and patient rotation. A 2-lead cardiac AICD is unchanged in position. The heart is enlarged. There is mild pulmonary vascular congestion. Bibasilar atelectasis is observed. No airspace consolidation or large pleural effusion is identified. No pneumothorax is seen. The skeletal structures are osteopenic. The bony thorax is grossly intact. IMPRESSION: Cardiomegaly and AICD with mild pulmonary vascular congestion. Electronically signed by: Jorge Avila M.D. 11/28/2018 11:48 AM ECG Data Attestation: I personally reviewed and interpreted this ECG as follows: Indication: SOB/dyspnea Rate (beats per minute): 82 Rhythm: normal sinus Findings: + other (LVH with repolarization); no PAC, no PVC and no ST elevation Comparison ECG Date: from (09/11/2018) Change: no significant change Blood Pressure Blood Pressure Findings: Elevated blood pressure Blood Pressure Disposition: further management by hospitalist Discharge Plan Visit Data Chief Complaint: Shortness of Breath/Dyspnea Stated Complaint: SHORTNESS OF BREATH - REF BY DR NICOLAS Provider: Adis Small Discharge Problem: Elevated troponin, Right-sided chest pain, Hypomagnesemia, Hypokalemia Patient Disposition: Being Evaluated by Hospitalist Forms Stand Alone Forms: My [facility] [employer] Prescriptions Prescriptions: No Action gabapentin [Neurontin] 300 mg Capsule 600 mg PO TID RF: 0 ropinirole 0.5 mg Tablet 0.5 mg PO HS RF: 0 duloxetine 60 mg Capsule,Delayed Release(Dr/Ec) 60 mg PO QDL RF: 0 mirtazapine 30 mg Tablet 30 mg PO HS RF: 0 omeprazole 40 mg Capsule,Delayed Release(Dr/Ec) 40 mg PO QAM RF: 0 aspirin [Aspir-81] 81 mg Tablet,Delayed Release (Dr/Ec) 81 mg PO QAM RF: 0 folic acid 1 mg Tablet 1 mg PO HS RF: 0 sumatriptan succinate 25 mg Tablet 50 mg PO DIRECTED PRN (Reason: Headache) RF: 0 albuterol sulfate [Ventolin HFA] 90 mcg/actuation Hfa Aerosol Inhaler 2 puff INHALATION QID PRN (Reason: Shortness Of Breath) RF: 0 atorvastatin [Lipitor] 40 mg Tablet 40 mg PO QAM RF: 0 metformin 500 mg Tablet 1,000 mg PO BIDM RF: 0 albuterol sulfate 2.5 mg /3 mL (0.083 %) solution for nebulization 3 ml Inhalation Q4H PRN (Reason: Wheezing) RF: 0 fluticasone-salmeterol 500-50 mcg/dose blister with device 1 puff Inhalation BID RF: 0 metoprolol succinate 50 mg tablet extended release 24 hr 1.5 mg PO DAILY RF: 0 furosemide [Lasix] 40 mg Tablet 40 mg PO DAILY RF: 0 furosemide [Lasix] 40 mg Tablet 40 mg PO UD RF: 0 spironolactone 25 mg Tablet 12.5 mg PO DAILY RF: 0 montelukast 10 mg Tablet 10 mg PO PM RF: 0 Referrals Referrals: Suad De León [Primary Care Provider] - The scribe's documentation has been prepared under my direction and personally reviewed by me in its entirety. I confirm that the note above accurately reflects all work, treatment, procedures, and medical decision making performed by me.
[2018-11-28] MEDS ORDERED: GLUCOSE 10 TABS/TUBE PO PRN (16:47)
[2018-11-28] MEDS ORDERED: DEXTROSE 50% 50 ML SYRINGE IV PRN (16:47)
[2018-11-28] MEDS ORDERED: GLUCAGON FOR INJ 1 MG VIAL SQ PRN (16:47)
[2018-11-28] MEDS ORDERED: CARBOHYDRATES FOR HYPOGLYCEMIA PO PRN (16:47)
[2018-11-28] MEDS ORDERED: GLUCOSE 40% GEL 15 GM TUBE PO PRN (16:47)
[2018-11-28] MEDS ORDERED: MAGNESIUM SULFATE / D5W 1 GM/100 ML BAG IV ONE (17:00)
[2018-11-28] MEDS: IPRATROPIUM BROMIDE NEB SOLN 0.02% 2.5 ML VIAL INH SCH (17:06)
[2018-11-28] MEDS: LEVALBUTEROL 1.25MG/0.5ML NEB INH SCH (17:07)
[2018-11-28 18:00] LABS: Troponin I 0.202 ng/ml (0-0.045)
[2018-11-28] MEDS ORDERED: POTASSIUM CHLORIDE 20 MEQ TABCR PO ONE (18:00)
[2018-11-28] MEDS: ENOXAPARIN INJ 40 MG/0.4 ML SYR SQ SCH (19:13)
[2018-11-28] MEDS: INSULIN ASPART 100 UNITS/ML 3 ML PEN SC SCH ×2 (19:14→21:39)
[2018-11-28] MEDS ORDERED: XOPENEX/ATROVENT 1.25mg/0.5MG NEB COMBO NEB SCH (20:00)
[2018-11-28] MEDS: MIRTAZAPINE TAB 15 MG TAB PO SCH (21:40)
[2018-11-28] MEDS: MONTELUKAST SODIUM 10 MG TABLET PO SCH (21:40)
[2018-11-28] MEDS: FOLIC ACID 1 MG TAB PO SCH (21:41)
[2018-11-28] MEDS: GABAPENTIN 600 MG TAB PO SCH (21:41)
[2018-11-28] MEDS: ROPINIROLE HCL 0.25 MG TABLET PO SCH (21:41)
[2018-11-28] MEDS: FLUTICASONE/SALMETEROL (ADVAIR) 500/50 INH 14 PUFF INH SCH (21:42)
[2018-11-28] MEDS: INSULIN GLARGINE SOLOSTAR 100 UNITS/ML 3 ML PEN SC SCH (21:43)
[2018-11-29] MEDS: IPRATROPIUM BROMIDE NEB SOLN 0.02% 2.5 ML VIAL INH SCH ×4 (01:46→19:35)
[2018-11-29] MEDS: LEVALBUTEROL 1.25MG/0.5ML NEB INH SCH ×4 (01:46→19:35)
[2018-11-29 06:19] LABS: Hemoglobin 12.4 g/dL (12.0-16.0); Mean Corpuscular Hgb Conc 33.5 g/dL (32-36); Mean Corpuscular Volume 90.5 fL (80-100); Mean Platelet Volume 9.4 fL (7.4-10.4); Platelet Count 201 K/uL (130-400); RDW Coefficient of Variation 16.9 % (11.5-14.5); RDW Standard Deviation 55.3 fL (36.4-46.3); Red Blood Count 4.09 M/uL (4.2-5.4); White Blood Count 10.33 K/uL (4.8-10.8)
[2018-11-29 06:50] LABS: BUN Creatinine Ratio 12.4 (10-20); Calcium 8.9 mg/dl (8.5-10.1); Creatinine Clr Calc Pharmacy 47.9 ml/min; Est GFR (African American) 63.2; Est GFR (Non-African American) 54.5; Magnesium 2.2 mg/dl (1.8-2.4); Potassium 3.5 mmol/L (3.5-5.1)
[2018-11-29] MEDS: ACETAMINOPHEN 325 MG TAB PO PRN ×2 (07:18→20:15)
[2018-11-29] MEDS: METOPROLOL SUCC 50MG EXT REL TAB PO SCH (09:17)
[2018-11-29] MEDS: GABAPENTIN 600 MG TAB PO SCH ×3 (09:17→21:30)
[2018-11-29] MEDS: SPIRONOLACTONE 25 MG TAB PO SCH (09:18)
[2018-11-29] MEDS: ASPIRIN 81 MG ECTAB PO SCH (09:19)
[2018-11-29] MEDS: ATORVASTATIN 40 MG TAB PO SCH (09:20)
[2018-11-29] MEDS: DULOXETINE HCL 60 MG CAP PO SCH (09:20)
[2018-11-29] MEDS: PANTOprazole 40 MG TAB PO SCH (09:20)
[2018-11-29] MEDS: INSULIN GLARGINE SOLOSTAR 100 UNITS/ML 3 ML PEN SC SCH ×2 (09:21→21:28)
[2018-11-29] MEDS: INSULIN ASPART 100 UNITS/ML 3 ML PEN SC SCH ×4 (09:23→21:27)
[2018-11-29] MEDS: FLUTICASONE/SALMETEROL (ADVAIR) 500/50 INH 14 PUFF INH SCH ×2 (09:24→21:29)
--- NOTE | 2018-11-29 10:43 | Hospitalist Progress Note ---
Date of Service November 29, 2018 Assessment & Plan (1) Shortness of breath: Secondary to CHF (2) Acute on chronic diastolic CHF (congestive heart failure): Reported wheezing, SOB with increased SOB on exertion past 3 days. Past 1- 2 days R shoulder pain/R chest pain/R arm pain. Some intermittent dizziness. Denies diaphoresis. No fever/chills. Slight dry cough started while in ER today. In ER afebrile, P: 80- 90, R: 20-24, BP: 148/84-154/73, Pulse ox: 90-98% on RA. WBC: 8, troponin: 0.17 (0.09 in 08/2018, chronically elevated). No acute ekg changes compared to previous. Negative flu swab CXR: Cardiomegaly and AICD with mild pulmonary vascular congestion. -BNP 2600 -Continue IV Lasix -monitor I&O's, low sodium diet -continue spironolactone -cardiology to see -monitor daily lab (3) Hypertrophic cardiomyopathy: S/P prophylactic pacer/defibrillator (4) COPD (chronic obstructive pulmonary disease): Was started on prednisone taper outpatient 2 days ago. No wheezing on exam today -xopenex/atrovent nebs -continue advair, singulair (5) Hypomagnesemia: magnesium: 1.5 Given 400mg magnesium po in ER -magnesium 1 GM IV -monitor magnesium (6) Hypokalemia: K: 3.3 Given potassium 20meq po in ER Will give potassium 20meq po tonight -monitor electrolytes (7) Elevated troponin: Chronically elevated troponin Troponin: 0.17. no acute ekg changes -trend troponin -repeat EKG am (8) Hypertension: Stable -continue metoprolol -got IV lasix -monitor (9) Diabetes mellitus, type 2: HA1c: 6.5 on 09/2018 -hold metformin while in hospital -Novolog, Lantus sliding scale (10) HLD (hyperlipidemia): -We will check CPK and hold statin for now, she might be having myositis from statins (11) CADENCE (obstructive sleep apnea): Intolerant to CPAP Reports is to have another out patient sleep study -oxygen 2L HS (12) GERD (gastroesophageal reflux disease): -continue PPI (13) CKD (chronic kidney disease), stage III: Cr: 1.03, GFR: 59. at baseline -monitor renal functions (14) Anxiety: Controlled on duloxetine (15) Depression: -continue cymbalta (16) Restless leg syndrome: -continue requip, remeron DVT Prophylaxis -Lovenox SQ Follows with Dr Suad De León for routine care Subjective Feels much better than when she came in. Appetite good ROS-No Headache, No Visual Changes, No Fever, No Chills, No Neck Pain or Stiffness, No Chest Pain, No Palpitations, positive SOB, No BRUSH, No Cough, No Sputum, No Wheezing, No Abdominal Pain, No Diarrhea, No Hematemesis, No Hemoptysis, No Unexpected Weight Loss, No Flank pain, No Melena, No Hematochezia , No Frequency, No Urgency, No Burning, No Hematuria, No Rashes, No Diaphoresis. Appetite is Normal, complaint of leg stiffness Physical Exam Gen-AAO x 3, NAD, Afebrile Head-NCAT, EOMI, PERRLA, Anicteric Sclera, No Posterior Pharyngeal Erythema Neck-Supple, No JVD, No Thyromegaly, No Masses, No LAD, No Bruits Lungs-Clear to Auscultation Bilaterally, No Rales, No Rhonchi, No Wheezing, No Crepitus Chest-No S4, +S1, +S2, No S3, No Murmurs, No Rubs, No Gallops, No Ectopy Abdomen-Soft, Bowel Sounds Present, Non Tender, Non Distended, No Hepatomegaly, No Splenomegaly, No Palpable Masses, No Rebound, No Rigidity, No Guarding Musculoskeletal-Full Range of Motion Bilaterally, No CVAT Extremities-No Cyanosis, No Clubbing, No Edema Nuero-Cranial Nerves II-XII grossly intact, Motor WNL, DTRs WNL, Strength WNL, No Focal Psych-Normal Mood Physical Exam 2 Vital Signs (Past 24 Hours): Last Vital Signs Temp 36.6 C 11/29/18 07:15 Pulse 82 11/29/18 07:25 Resp 20 11/29/18 07:25 BP 139/68 11/29/18 07:15 Pulse Ox 97 11/29/18 07:25 Results & Data Laboratory Results Current Diagnoses Type 2 diabetes mellitus with diabetic chronic kidney disease (11/28/18) Hyperlipidemia, unspecified (11/28/18) Hypomagnesemia (11/28/18) Hypokalemia (11/28/18) Major depressive disorder, single episode, unspecified (11/28/18) Anxiety disorder, unspecified (11/28/18) Restless legs syndrome (11/28/18) Obstructive sleep apnea (adult) (pediatric) (11/28/18) Essential (primary) hypertension (11/28/18) Other hypertrophic cardiomyopathy (11/28/18) Acute on chronic diastolic (congestive) heart failure (11/28/18) Chronic obstructive pulmonary disease, unspecified (11/28/18) Gastro-esophageal reflux disease without esophagitis (11/28/18) Chronic kidney disease, stage 3 (moderate) (11/28/18) Shortness of breath (11/28/18) Abnormal levels of other serum enzymes (11/28/18) Allergies adhesive Allergy (Intermediate, Verified 11/28/18 11:54) blistering Sulfa (Sulfonamide Antibiotics) Allergy (Intermediate, Verified 11/28/18 11:54) swelling doxycycline Allergy (Unknown, Verified 11/28/18 11:54) UNKNOWN Penicillins Allergy (Unknown, Verified 11/28/18 11:54) Flushing, ITCHING Height/Weight/Isolation Height 5 ft Weight 71.2 kg Chemistry 11/28/18 11/29/18 11:25 05:38 Sodium 143 143 Potassium 3.3 L 3.5 Chloride 110 H 108 H Carbon Dioxide 27 28 Anion Gap 6.0 7.0 BUN 11 14 Creatinine 1.03 1.10 Glucose 120 H 128 H _ (1) Diabetes mellitus, type 2 Diabetes mellitus 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
[2018-11-29] MEDS ORDERED: FUROSEMIDE 40 MG in SYRINGE 0 ML IV SCH (11:00)
--- NOTE | 2018-11-29 14:46 | Consultation Report ---
DATE OF CONSULTATION: 11/29/2018 INPATIENT CARDIOLOGY CONSULTATION CONSULTATION REQUESTED BY: Maria Alejandra Mcdonough PA-C. REASON FOR CONSULTATION: Shortness of breath. HISTORY OF PRESENT ILLNESS: Mrs. Velasquez is a very pleasant 58-year-old woman who follows with Dr. Bruno of our cardiology practice. She presented to [facility] Emergency Department on 11/29/2018 with complaints of shortness of breath. The patient states that the symptoms started approximately 3 days prior to presentation and was associated with some wheezing. She was seen in her primary care physician's office. Chest x-ray was unremarkable. Wheezing was noted on exam and she was given prednisone and nebulizer treatments. She also states that they did not significantly improve with this treatment. She had a low-grade fever at home and she started developing pains in her right shoulder, right neck, right arm, all worse with motion. She became concerned and came into the Emergency Department. She does not note a significant change in her weight at home nor any significant swelling. Her weight is also not changed significantly per the primary care physician's scales. She is actually down a pound or two since September. She came into the Emergency Department, she was given IV Lasix with some slight diuresis, but no significant clinical change and cardiology was consulted. Of note, the patient still is not able to tolerate her CPAP mask at night. She wears her oxygen when sleeping, but notes that when she is able to sleep, she usually pulls it off inadvertently. She notes that she really has not been able to sleep in quite some time now and her nerves seemed to be worsening. PAST SURGICAL HISTORY: 1. Single lead ICD implant, August 2015. 2. Appendectomy. 3. Partial colectomy. 4. Upper endoscopy. 5. Colonoscopy. MEDICAL ILLNESSES: 1. Hypertrophic nonobstructive apical cardiomyopathy. 2. Diastolic dysfunction with normal LV systolic function with history of decompensation secondary to CPAP noncompliance. 3. 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 4. Hypertension. 5. Obesity. 6. Severe obstructive sleep apnea, not tolerant of CPAP. 7. Irritable bowel. 8. History of perforated diverticulum, status post partial colectomy. 9. Depression. 10. Diabetes. 11. History of restrictive pattern on most recent PFTs as an outpatient. SOCIAL HISTORY: She is . She lives at home with her . She is currently employed at [employer]. REVIEW OF SYSTEMS: As per HPI. All other review of systems reviewed and negative at this time. ALLERGIES: 1. PENICILLIN. 2. DOXYCYCLINE. 3. SULFA. 4. ADHESIVE TAPE. MEDICATIONS AN OUTPATIENT: 1. Lasix 40 mg daily with an additional p.m. tablet 2 days a week. 2. Metoprolol succinate 75 mg daily. 3. Spironolactone 12.5 mg daily. 4. Oxygen 2 liters using via nasal cannula with sleep. 5. Atorvastatin 40 mg daily. 6. Aspirin 81 mg daily. 7. Bentyl b.i.d. 8. Remeron at bedtime. 9. Advair b.i.d. 10. Omeprazole. 11. Requip. 12. Imitrex. 13. Cymbalta. 14. Gabapentin. PHYSICAL EXAMINATION: VITALS: Temperature 37.6, pulse 87, respiratory rate 12, blood pressure 122/65, saturating 94% on 2 liters nasal cannula. GENERAL: Awake, alert, oriented x3, mildly anxious. HEENT: Normocephalic, atraumatic. Pupils equal, round and react to light and accommodation. Extraocular muscles intact. Anicteric sclerae. Moist mucous membranes. NECK: No JVD, no bruit. CARDIOVASCULAR: Regular, but distant. Unable to appreciate any murmurs, rubs or gallops. PULMONARY: Clear to auscultation bilaterally. No rales, rhonchi, or wheezing. ABDOMEN: Bowel sounds x4, soft, obese. No rebound, guarding, tenderness. No organomegaly. EXTREMITIES: No clubbing, cyanosis or edema. +2 pedal pulses bilaterally. SKIN: Warm and dry. TEST RESULTS: Chest x-ray performed as an outpatient 11/26/2018 was read as normal study. A 2D echocardiogram performed today was read as small LV chamber size, asymmetric left ventricular hypertrophy, asymmetric hypertrophy involving the interventricular septum of the left ventricular apex, hyperdynamic LV systolic function, EF greater than 70%, no segmental wall motion abnormalities are noted, grade 2 diastolic dysfunction, trace mitral regurgitation. LABORATORY STUDIES OF SIGNIFICANCE: ProBNP of 2400 which is the lowest it has been in approximately 5 months now. Sodium 143, potassium 3.5, BUN 14, creatinine 1.1. Troponin is chronically elevated today at 0.15. IMPRESSION: 1. Shortness of breath. 2. Obesity hypoventilation. 3. Obstructive sleep apnea, not tolerant of nocturnal CPAP. 4. Apical variant HOCM. 5. Diastolic dysfunction with normal LV systolic function. RECOMMENDATIONS: It was my pleasure to see Mrs. Velasquez in consultation today. From a cardiac standpoint, the patient does not examine as volume overloaded and her echocardiogram is unchanged. Her proBNP is actually lowest has been in quite some time and her troponin is stable. I do not believe this represents decompensated heart failure, and given her hypertrophic obstructive cardiomyopathy, significant reduction of her preload could be significantly dangerous, so her diuretics will be stopped at this point. I have asked our pulmonary colleagues to evaluate her not only for the obstructive sleep apnea which they may be able to help facilitate some better management, but also for further pulmonary evaluation.
[2018-11-29] MEDS: ENOXAPARIN INJ 40 MG/0.4 ML SYR SQ SCH (17:58)
--- NOTE | 2018-11-29 20:40 | Pulmonary Consultation ---
Date of Consultation November 29, 2018 Assessment & Plan (1) CADENCE (obstructive sleep apnea): Impression: 1. Shortness of breath due to diastolic heart failure. 2. Asthma that has been persistent as well contributing to her symptoms. 3. Chronic kidney disease. 4. Obstructive sleep apnea, workup was done as an outpatient, the patient could not tolerate positive airway pressure treatment. Plan: 1. No further recommendations from pulmonary standpoint. 2. The patient should follow-up in the pulmonary clinic for facemasks testing. 3. Agree with aggressive treatment of obstructive sleep apnea as it is contributing to her CHF, however she does have genetic mutation for cardiomyopathy which should not be altered by treatment of CADENCE. 4. If the patient cannot tolerate positive airway pressure, next option would be hypoglossal nerve stimulator. Thank you, will follow as needed. History of Present Illness Reason for Consultation: Obstructive sleep apnea. Requesting Physician: Dr. Reyes. Attending Physician: Valdemar Reyes, DO History of Present Illness Dear Dr. Reyes: Thank you for your kind referral of Mrs. tillman to pulmonary service. This is 58- year-old female known to me from the past with history of asthma, was active smoker although she has a component of COPD in the past, history of diastolic heart failure, genetic mutation of cardiomyopathy requiring defibrillator placement morbid obesity, and obstructive sleep apnea, in which she could not tolerate any facemask according to her due to claustrophobia. The patient has been evaluated as outpatient with PSG which I do not have the results of that test for her. The patient presented to the hospital with increased shortness of breath accompanied with wheezing, the patient was treated with steroids as an outpatient, however she noted increased swelling in her lower extremities. The patient did have a dry cough. The patient could not sleep at night as she is sleeping mainly a recliner. The patient did not have any fever, no constitutional symptoms, no nausea or vomiting, no syncopal episode. She denies any polyuria or dysuria. No change in bowel movements or urine habits. No rash but she did have excessive daytime sleepiness. Her past medical history noted in the H&P, which is extensive. Her family history is not contributing to her current illness although she did have family history of cardiomyopathy according to her but she cannot remember it. The patient is non-smoker lifetime. She lived with her . Allergies Allergy/AdvReac Type Severity Reaction Status Date / Time adhesive Allergy Intermediate blistering Verified 11/28/18 11:54 Sulfa (Sulfonamide Allergy Intermediate swelling Verified 11/28/18 11:54 Antibiotics) doxycycline Allergy Unknown UNKNOWN Verified 11/28/18 11:54 Penicillins Allergy Unknown Flushing, Verified 11/28/18 11:54 ITCHING Home Medications Home Medications Medication Instructions Recorded Confirmed Type albuterol sulfate [Ventolin HFA] 2 puff INHALATION QID PRN 08/09/18 11/28/18 History aspirin [Aspir-81] 81 mg PO QAM 08/09/18 11/28/18 History atorvastatin [Lipitor] 40 mg PO QAM 08/09/18 11/28/18 History duloxetine 60 mg PO QDL 08/09/18 11/28/18 History folic acid 1 mg PO HS 08/09/18 11/28/18 History gabapentin [Neurontin] 600 mg PO TID 08/09/18 11/28/18 History mirtazapine 30 mg PO HS 08/09/18 11/28/18 History omeprazole 40 mg PO QAM 08/09/18 11/28/18 History ropinirole 0.5 mg PO HS 08/09/18 11/28/18 History sumatriptan succinate 50 mg PO DIRECTED PRN 08/09/18 11/28/18 History metformin 1,000 mg PO BIDM 08/12/18 11/28/18 History albuterol sulfate 3 ml INHALATION Q4H PRN 09/09/18 11/28/18 History fluticasone-salmeterol 1 puff INHALATION BID 09/09/18 11/28/18 History metoprolol succinate 75 mg PO DAILY 09/09/18 11/28/18 History furosemide [Lasix] 40 mg PO DAILY 11/28/18 11/28/18 History furosemide [Lasix] 40 mg PO UD 11/28/18 11/28/18 History montelukast 10 mg PO PM 11/28/18 11/28/18 History spironolactone 12.5 mg PO DAILY 11/28/18 11/28/18 History Patient History Medical History CKD (chronic kidney disease), stage III (Chronic) GERD (gastroesophageal reflux disease) (Chronic) HLD (hyperlipidemia) (Chronic) Hypertension (Chronic) Anxiety (Chronic) Cardiac defibrillator in place (Chronic) 2014 CHF (congestive heart failure) Asthma (Chronic) COPD (chronic obstructive pulmonary disease) (Chronic) Fatty (change of) liver, not elsewhere classified (Chronic) Arthritis (Chronic) Surgical History History of appendectomy (Resolved) 1970s H/O section (Resolved) 1979 & 1982 History of colostomy reversal (Resolved) bowel perf 2013 with colostomy reversed in 2014 H/O hernia repair (Resolved) 2016 Family History Other Hypertrophic cardiomyopathy Stomach cancer Thyroid disorder Social History Current Living Situation: Spouse Other Information That Helps Us Care for You: No Feels Safe at Home: Yes Safety Concerns: Feels Safe At This Time Smoking Status: Never smoker Do You Dip or Chew Tobacco: No Second Hand Exposure: No Tobacco Cessation Education Requested by Patient: No Hx Alcohol Use: No Hx Substance Use: No Beliefs That Will Affect Care: None Preferred Language: Danish Communication Ability: Effective Fitness And Wellness Coordinator Required: No Review of Systems Review of system is unremarkable. Except for the above. 14 systems has been reviewed. Physical Exam 2 Vital Signs (Past 24 Hours): Last Vital Signs Temp 36.6 C 11/29/18 15:45 Pulse 81 11/29/18 19:37 Resp 18 11/29/18 19:37 BP 132/81 11/29/18 15:45 Pulse Ox 93 11/29/18 19:37 Physical Exam: Vital signs are stable, S1-S2 regular rate and rhythm, distant breath sounds bilaterally, O2 saturation 93%. Abdomen is benign, edema in the periphery. Results & Data Laboratory Results Labs were reviewed which showed acceptable CBC and BMP, her BUN and creatinine are stable. Troponin is slightly elevated. Diagnostic Findings Chest x-ray showed cardiomegaly, AICD in place.
[2018-11-29] MEDS: FOLIC ACID 1 MG TAB PO SCH (21:29)
[2018-11-29] MEDS: ROPINIROLE HCL 0.25 MG TABLET PO SCH (21:30)
[2018-11-29] MEDS: MONTELUKAST SODIUM 10 MG TABLET PO SCH (21:31)
[2018-11-29] MEDS: MIRTAZAPINE TAB 15 MG TAB PO SCH (21:31)
[2018-11-30] MEDS: LEVALBUTEROL 1.25MG/0.5ML NEB INH SCH ×3 (02:02→13:58)
[2018-11-30] MEDS: IPRATROPIUM BROMIDE NEB SOLN 0.02% 2.5 ML VIAL INH SCH ×3 (02:02→13:58)
[2018-11-30] MEDS: GABAPENTIN 600 MG TAB PO SCH ×2 (08:01→14:40)
[2018-11-30] MEDS: METOPROLOL SUCC 50MG EXT REL TAB PO SCH (08:01)
[2018-11-30] MEDS: ATORVASTATIN 40 MG TAB PO SCH (08:02)
[2018-11-30] MEDS: PANTOprazole 40 MG TAB PO SCH (08:02)
[2018-11-30] MEDS: ASPIRIN 81 MG ECTAB PO SCH (08:03)
[2018-11-30] MEDS: INSULIN GLARGINE SOLOSTAR 100 UNITS/ML 3 ML PEN SC SCH (08:05)
[2018-11-30] MEDS: INSULIN ASPART 100 UNITS/ML 3 ML PEN SC SCH ×2 (08:06→12:50)
[2018-11-30] MEDS: FLUTICASONE/SALMETEROL (ADVAIR) 500/50 INH 14 PUFF INH SCH (08:08)
[2018-11-30 08:20] LABS: Hematocrit (blood only) 37.9 % (37-47); Hemoglobin 12.3 g/dL (12.0-16.0); Mean Corpuscular Hgb Conc 32.5 g/dL (32-36); Mean Corpuscular Volume 90.5 fL (80-100); Mean Platelet Volume 9.2 fL (7.4-10.4); Platelet Count 184 K/uL (130-400); RDW Coefficient of Variation 16.9 % (11.5-14.5); RDW Standard Deviation 55.2 fL (36.4-46.3); Red Blood Count 4.19 M/uL (4.2-5.4); White Blood Count 9.16 K/uL (4.8-10.8)
[2018-11-30 08:48] LABS: BUN Creatinine Ratio 17.3 (10-20); Calcium 8.9 mg/dl (8.5-10.1); Creatinine Clr Calc Pharmacy 45.7 ml/min; Est GFR (African American) 59.9; Est GFR (Non-African American) 51.7; Potassium 3.4 mmol/L (3.5-5.1)
[2018-11-30] MEDS: SPIRONOLACTONE 25 MG TAB PO SCH (09:11)
[2018-11-30] MEDS: ACETAMINOPHEN 325 MG TAB PO PRN (09:12)
--- NOTE | 2018-11-30 10:59 | Cardiology Progress Note ---
Date of Service November 30, 2018 Assessment & Plan (1) Hypertrophic cardiomyopathy: This patient has known familial hypertrophic cardiomyopathy proven with genetic testing. This is an ongoing problem for her. I do not believe her symptoms have changed appreciably leading into this admission. I do not believe there has necessarily been an acute change. She will obviously require ongoing treatment. She has a follow-up visit this week through our heart failure clinic and at that point she could have a discussion in regard to being referred to heart failure specialist at [facility]. She does not examine as volume overload. She currently is on a stable group of medications and has an ICD in place. Pulmonary consult recommends further evaluation and treatment for sleep apnea but has nothing further to add. The sleep workup can be continued as an outpatient. I would recommend discharge with outpatient follow-up. (2) Shortness of breath: Chronic due to hypertrophic cardiomyopathy and chronic diastolic dysfunction. Subjective This is an unfortunate 58-year-old female with a history of familial hypertrophic cardiomyopathy. She has been short of breath for many months and in interviewing the patient this shortness of breath has not really changed appreciably prior to admission. She admits that she cannot walk across the room without becoming dyspneic even with oxygen. This is not new or progressive and not changed prior to admission. Past medical history: 1. Hypertrophic nonobstructive apical cardiomyopathy. 2. Diastolic dysfunction with normal LV systolic function with history of decompensation secondary to CPAP noncompliance. 3. 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 4. Hypertension. 5. Obesity. 6. Severe obstructive sleep apnea, not tolerant of CPAP. 7. Irritable bowel. 8. History of perforated diverticulum, status post partial colectomy. 9. Depression. 10. Diabetes. 11. History of restrictive pattern on most recent PFTs as an outpatient. Physical Exam 2 Vital Signs (Past 24 Hours): Last Vital Signs Temp 36.8 C 11/30/18 07:26 Pulse 94 H 11/30/18 07:26 Resp 18 11/30/18 07:26 BP 146/78 H 11/30/18 07:26 Pulse Ox 94 11/30/18 07:26 Physical Exam: General: no acute distress and stated age Head: normocephalic, no masses, lesions, tenderness or abnormalities Eyes: conjunctiva are pink and non-injected, sclera clear Neck: supple, no adenopathy, no bruits, normal jugular venous pulse, no hepatojugular reflux Chest: normal shape and normal respiratory effort Lungs: clear to auscultation and percussion Cardiac Exam: - regular rate & rhythm, no murmurs gallops or rubs - normal S1, normal S2 Pulses: 2(+) throughout Abdomen: abdomen soft, non-tender, no abnormal masses and no hepatosplenomegaly Musculoskeletal: no gait disturbance, no joint inflammation, no deforming arthritis Extremities: no edema and no cyanosis Neuro: grossly normal exam Results & Data Laboratory Results Laboratory Results - last 24 hr 11/29/18 11/29/18 11/29/18 05:38 12:05 16:29 WBC RBC Hgb Hct MCV MCH MCHC RDW Std Deviation RDW Coeff of Rolan Plt Count MPV Sodium Potassium Chloride Carbon Dioxide Anion Gap BUN Creatinine Est Cr Clr Drug Dosing Est GFR ( Amer) Est GFR (Non-Af Amer) BUN/Creatinine Ratio Glucose POC Glucose 148 H 128 H Calcium Total Creatine Kinase 119 11/29/18 11/30/18 11/30/18 20:38 07:41 07:41 WBC 9.16 RBC 4.19 L Hgb 12.3 Hct 37.9 MCV 90.5 MCH 29.4 MCHC 32.5 RDW Std Deviation 55.2 H RDW Coeff of Rolan 16.9 H Plt Count 184 MPV 9.2 Sodium 142 Potassium 3.4 L Chloride 107 Carbon Dioxide 29 Anion Gap 6.0 BUN 20 H Creatinine 1.15 Est Cr Clr Drug Dosing 45.7 Est GFR ( Amer) 59.9 Est GFR (Non-Af Amer) 51.7 BUN/Creatinine Ratio 17.3 Glucose 133 H POC Glucose 161 H Calcium 8.9 Total Creatine Kinase 11/30/18 07:43 WBC RBC Hgb Hct MCV MCH MCHC RDW Std Deviation RDW Coeff of Rolan Plt Count MPV Sodium Potassium Chloride Carbon Dioxide Anion Gap BUN Creatinine Est Cr Clr Drug Dosing Est GFR ( Amer) Est GFR (Non-Af Amer) BUN/Creatinine Ratio Glucose POC Glucose 139 H Calcium Total Creatine Kinase Medications Administered Current Inpatient Medications Acetaminophen (Tylenol) 650 mg PO Q4H PRN PRN Reason: Pain or Fever Stop: 12/28/18 16:46 Last Admin: 11/30/18 09:12 Dose: 650 mg Aspirin (Ecotrin Ectab) 81 mg PO QAM [facility] Stop: 12/29/18 08:59 Last Admin: 11/30/18 08:03 Dose: 81 mg Atorvastatin Calcium (Lipitor) 40 mg PO QAM [facility] Stop: 12/29/18 08:59 Last Admin: 11/30/18 08:02 Dose: 40 mg Dextrose (Dextrose 50%) 25 - 50 ml IV UD PRN; Protocol PRN Reason: Hypoglycemia Protocol Stop: 12/28/18 16:46 Duloxetine HCl (Cymbalta) 60 mg PO QDL [facility] Stop: 12/29/18 11:29 Last Admin: 11/29/18 09:20 Dose: 60 mg Enoxaparin Sodium (Lovenox) 40 mg SQ Q24H [facility] Stop: 12/28/18 17:59 Last Admin: 11/29/18 17:58 Dose: 40 mg Folic Acid (Folvite) 1 mg PO HS [facility] Stop: 12/28/18 20:59 Last Admin: 11/29/18 21:29 Dose: 1 mg Gabapentin (Neurontin) 600 mg PO TID [facility] Stop: 12/28/18 20:59 Last Admin: 11/30/18 08:01 Dose: 600 mg Glucagon (Glucagen) 1 mg SQ UD PRN; Protocol PRN Reason: Hypoglycemia Protocol Stop: 12/28/18 16:46 Glucose (Dex4 Glucose) 4 - 8 tabs PO UD PRN; Protocol PRN Reason: Hypoglycemia Protocol Stop: 12/28/18 16:46 Glucose (Glucose 40%) 15 - 30 gm PO UD PRN; Protocol PRN Reason: Hypoglycemia Protocol Stop: 12/28/18 16:46 Insulin Aspart (Novolog Flexpen) 0 units SC ACHS [facility] Stop: 12/28/18 16:59 Last Admin: 11/30/18 08:06 Dose: 3 units Insulin Glargine (Lantus Solostar Pen) 0 - 10 units SC Q12H [facility]; Protocol Stop: 12/28/18 20:59 Last Admin: 11/30/18 08:05 Dose: 5 units Ipratropium [place] (Atrovent 0.02% 0.5mg/2.5ml) 0.5 mg INH Q6R [facility] Stop: 12/28/18 16:59 Last Admin: 11/30/18 07:24 Dose: 0.5 mg Levalbuterol HCl (Xopenex 1.25mg/0.5ml Neb) 1.25 mg INH Q6R [facility] Stop: 12/28/18 16:59 Last Admin: 11/30/18 07:24 Dose: 1.25 mg Metoprolol Succinate (Toprol Xl) 75 mg PO DAILY [facility] Stop: 12/29/18 08:59 Last Admin: 11/30/18 08:01 Dose: 75 mg Mirtazapine (Remeron) 30 mg PO HS [facility] Stop: 12/28/18 20:59 Last Admin: 11/29/18 21:31 Dose: 30 mg Miscellaneous (Carbohydrates For Hypoglycemia) 15 - 30 gm PO UD PRN PRN Reason: Hypoglycemia Treatment Stop: 12/28/18 16:46 Montelukast Sodium (Singulair) 10 mg PO PM [facility] Stop: 12/28/18 20:59 Last Admin: 11/29/18 21:31 Dose: 10 mg Pantoprazole Sodium (Protonix) 40 mg PO QAM [facility] Stop: 12/29/18 08:59 Last Admin: 11/30/18 08:02 Dose: 40 mg Ropinirole HCl (Requip) 0.5 mg PO HS [facility] Stop: 12/28/18 20:59 Last Admin: 11/29/18 21:30 Dose: 0.5 mg Fluticasone/Salmeterol (Advair Diskus 500/50) 1 puffs INH BID [facility] Stop: 12/28/18 20:59 Last Admin: 11/30/18 08:08 Dose: 1 puffs Spironolactone (Aldactone) 12.5 mg PO DAILY [facility] Stop: 12/29/18 08:59 Last Admin: 11/30/18 09:11 Dose: 12.5 mg
--- NOTE | 2018-11-30 11:05 | Hospitalist Progress Note ---
Date of Service November 30, 2018 Assessment & Plan (1) Shortness of breath: Secondary to CHF (2) Acute on chronic diastolic CHF (congestive heart failure): Reported wheezing, SOB with increased SOB on exertion past 3 days. Past 1- 2 days R shoulder pain/R chest pain/R arm pain. Some intermittent dizziness. Denies diaphoresis. No fever/chills. Slight dry cough started while in ER today. In ER afebrile, P: 80- 90, R: 20-24, BP: 148/84-154/73, Pulse ox: 90-98% on RA. WBC: 8, troponin: 0.17 (0.09 in 08/2018, chronically elevated). No acute ekg changes compared to previous. Negative flu swab CXR: Cardiomegaly and AICD with mild pulmonary vascular congestion. -BNP 2600 -Continue IV Lasix -monitor I&O's, low sodium diet -continue spironolactone -cardiology to see -monitor daily lab (3) Hypertrophic cardiomyopathy: S/P prophylactic pacer/defibrillator (4) COPD (chronic obstructive pulmonary disease): Was started on prednisone taper outpatient 2 days ago. No wheezing on exam today -xopenex/atrovent nebs -continue advair, singulair (5) Hypomagnesemia: magnesium: 1.5 Given 400mg magnesium po in ER -magnesium 1 GM IV -monitor magnesium (6) Hypokalemia: K: 3.3 Given potassium 20meq po in ER Will give potassium 20meq po tonight -monitor electrolytes (7) Elevated troponin: Chronically elevated troponin Troponin: 0.17. no acute ekg changes -trend troponin -repeat EKG am (8) Hypertension: Stable -continue metoprolol -got IV lasix -monitor (9) Diabetes mellitus, type 2: HA1c: 6.5 on 09/2018 -hold metformin while in hospital -Novolog, Lantus sliding scale (10) HLD (hyperlipidemia): -We will check CPK and hold statin for now, she might be having myositis from statins (11) CADENCE (obstructive sleep apnea): Intolerant to CPAP Reports is to have another out patient sleep study -oxygen 2L HS (12) GERD (gastroesophageal reflux disease): -continue PPI (13) CKD (chronic kidney disease), stage III: Cr: 1.03, GFR: 59. at baseline -monitor renal functions (14) Anxiety: Controlled on duloxetine (15) Depression: -continue cymbalta (16) Restless leg syndrome: -continue requip, remeron DVT Prophylaxis -Lovenox SQ Follows with Dr Suad De Lóen for routine care Subjective Feels much better than when she came in. Appetite good, still wheezing with shortness of breath. Received a call from Dr. Grant says that we can discharge her because she has a an appointment with Dr. Sheryl Cabrera that he wants her to keep, says or not to do much for her here, she may need to go to [place] to get a possible transplant. ROS-No Headache, No Visual Changes, No Fever, No Chills, No Neck Pain or Stiffness, No Chest Pain, No Palpitations, positive SOB, No BRUSH, No Cough, No Sputum, No Wheezing, No Abdominal Pain, No Diarrhea, No Hematemesis, No Hemoptysis, No Unexpected Weight Loss, No Flank pain, No Melena, No Hematochezia , No Frequency, No Urgency, No Burning, No Hematuria, No Rashes, No Diaphoresis. Appetite is Normal, complaint of leg stiffness Physical Exam Gen-AAO x 3, NAD, Afebrile Head-NCAT, EOMI, PERRLA, Anicteric Sclera, No Posterior Pharyngeal Erythema Neck-Supple, No JVD, No Thyromegaly, No Masses, No LAD, No Bruits Lungs-Clear to Auscultation Bilaterally, No Rales, No Rhonchi, No Wheezing, No Crepitus Chest-No S4, +S1, +S2, No S3, No Murmurs, No Rubs, No Gallops, No Ectopy Abdomen-Soft, Bowel Sounds Present, Non Tender, Non Distended, No Hepatomegaly, No Splenomegaly, No Palpable Masses, No Rebound, No Rigidity, No Guarding Musculoskeletal-Full Range of Motion Bilaterally, No CVAT Extremities-No Cyanosis, No Clubbing, No Edema Nuero-Cranial Nerves II-XII grossly intact, Motor WNL, DTRs WNL, Strength WNL, No Focal Psych-Normal Mood Physical Exam 2 Vital Signs (Past 24 Hours): Last Vital Signs Temp 36.8 C 11/30/18 07:26 Pulse 93 H 11/30/18 08:00 Resp 18 01/12/19 07:26 BP 146/78 H 11/30/18 07:26 Pulse Ox 94 11/30/18 07:26 _ (1) Diabetes mellitus, type 2 Diabetes mellitus half-way insulin use: 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
--- NOTE | 2018-11-30 11:10 | Discharge Summary ---
Date of Service November 30, 2018 Admission HPI Per Admitting Provider Pt is 58 y/o F with PMH chronic diastolic CHF, hypertorphic nonobstructive cardiomyopathy, h/o genetic mutation consistent with cardiomyopathy s/p prophylactic pacer/defibrillator in 08/2015, labile, HTN, obesity, depression, anxiety, COPD, DM II, CADENCE intolerant to CPAP and on 2L O2 HS, CKD III presented to ER with c/o SOB. Pt states 3 days ago started with SOB and wheezing. Saw PCP 11/26/18 and had negative CXR, found to be wheezing on exam and given prednisone taper and neb treatment. Pt states no improvement and worsening SOB with exertion. States 2 days ago had slight swelling BLE however that has improved. States 1-2 days ago started with right shoulder pain radiating to right neck, right chest, right arm, worse with ROM. Feels like has slight dry cough today since being in ER. She states it feels like when she had "too much fluid" in the past. Taking her temp and highest 99.4F. Reports chronically sleeps with head elevated. Takes lasix 40mg daily and 80 mg on mondays and , however today only took 40mg daily. Reports some intermittent slight right sided MILLARD, has not needed to use imitrex and no photophobia. States some slight dizziness past couple of days. Denies any falls. Denies increased sodium in diet. Denies chills, diaphoresis, N/V/D/C, syncope, vision changes, neck pain, CP, SOB, orthopnea, palpitations, cough, sore throat, choking, otalgia, rhinorrhea, abdominal pain, paresthesias, weakness, extremity weakness, rashes, urinary symptoms. Denies injury/trauma. Hx echo: 07/2018: LVH, no wall abnormalities, EF: 60-65%, grade II diastolic dysfunction, trace mitral regurgitation, moderate left atrial enlargement. Admission Exam Per Admitting Provider General: no acute distress, obese Head: normocephalic, atraumatic Eyes: PERRL, EOM's intact, conjunctiva non-injected, anicteric ENT: normal inspection external ears, nose, mucous membranes moist Neck: supple, trachea midline, non-tender Lungs: no acute respiratory distress or retractions, R: 22, pulse ox: 95% on RA , +slight bibasilar crackles, no wheezing CV: RRR, no murmur, no significant pretibial edema. right chest and right shoulder tender to palpation Abd: normal BS, soft, non-tender Ext: no cyanosis, no eyrthema, no calf tenderness Neuro: A&O x 3, no focal deficits noted, normal affect Skin: warm, dry Principal Diagnosis (1) Shortness of breath: (2) Acute on chronic diastolic CHF (congestive heart failure): (3) Hypertrophic cardiomyopathy: (4) COPD (chronic obstructive pulmonary disease): (5) Hypomagnesemia: (6) Hypokalemia: (7) Elevated troponin: (8) Hypertension: (9) Diabetes mellitus, type 2: (10) HLD (hyperlipidemia): (11) CADENCE (obstructive sleep apnea): (12) GERD (gastroesophageal reflux disease): (13) CKD (chronic kidney disease), stage III: (14) Anxiety: (15) Depression: (16) Restless leg syndrome: Discharge Exam Feels much better than when she came in. Appetite good, still wheezing with shortness of breath. Received a call from Dr. Grant says that we can discharge her because she has a an appointment with Dr. Sheryl Cabrera that he wants her to keep, says or not to do much for her here, she may need to go to [place] to get a possible transplant. ROS-No Headache, No Visual Changes, No Fever, No Chills, No Neck Pain or Stiffness, No Chest Pain, No Palpitations, positive SOB, No BRUSH, No Cough, No Sputum, No Wheezing, No Abdominal Pain, No Diarrhea, No Hematemesis, No Hemoptysis, No Unexpected Weight Loss, No Flank pain, No Melena, No Hematochezia , No Frequency, No Urgency, No Burning, No Hematuria, No Rashes, No Diaphoresis. Appetite is Normal, complaint of leg stiffness Physical Exam Gen-AAO x 3, NAD, Afebrile Head-NCAT, EOMI, PERRLA, Anicteric Sclera, No Posterior Pharyngeal Erythema Neck-Supple, No JVD, No Thyromegaly, No Masses, No LAD, No Bruits Lungs-Clear to Auscultation Bilaterally, No Rales, No Rhonchi, No Wheezing, No Crepitus Chest-No S4, +S1, +S2, No S3, No Murmurs, No Rubs, No Gallops, No Ectopy Abdomen-Soft, Bowel Sounds Present, Non Tender, Non Distended, No Hepatomegaly, No Splenomegaly, No Palpable Masses, No Rebound, No Rigidity, No Guarding Musculoskeletal-Full Range of Motion Bilaterally, No CVAT Extremities-No Cyanosis, No Clubbing, No Edema Nuero-Cranial Nerves II-XII grossly intact, Motor WNL, DTRs WNL, Strength WNL, No Focal Psych-Normal Mood Discharge Data Allergies Allergy/AdvReac Type Severity Reaction Status Date / Time adhesive Allergy Intermediate blistering Verified 11/28/18 11:54 Sulfa (Sulfonamide Allergy Intermediate swelling Verified 11/28/18 11:54 Antibiotics) doxycycline Allergy Unknown UNKNOWN Verified 11/28/18 11:54 Penicillins Allergy Unknown Flushing, Verified 11/28/18 11:54 ITCHING Consultations 11/28/18 14:25 ED Decision to Admit Stat 11/28/18 16:47 Consult Cardiology Routine 11/29/18 11:47 Consult Pulmonology Routine Current Diagnoses Type 2 diabetes mellitus with diabetic chronic kidney disease (11/28/18) Hyperlipidemia, unspecified (11/28/18) Hypomagnesemia (11/28/18) Hypokalemia (11/28/18) Major depressive disorder, single episode, unspecified (11/28/18) Anxiety disorder, unspecified (11/28/18) Restless legs syndrome (11/28/18) Obstructive sleep apnea (adult) (pediatric) (11/28/18) Essential (primary) hypertension (11/28/18) Other hypertrophic cardiomyopathy (11/28/18) Acute on chronic diastolic (congestive) heart failure (11/28/18) Chronic obstructive pulmonary disease, unspecified (11/28/18) Gastro-esophageal reflux disease without esophagitis (11/28/18) Chronic kidney disease, stage 3 (moderate) (11/28/18) Shortness of breath (11/28/18) Abnormal levels of other serum enzymes (11/28/18) Allergies adhesive Allergy (Intermediate, Verified 11/28/18 11:54) blistering Sulfa (Sulfonamide Antibiotics) Allergy (Intermediate, Verified 11/28/18 11:54) swelling doxycycline Allergy (Unknown, Verified 11/28/18 11:54) UNKNOWN Penicillins Allergy (Unknown, Verified 11/28/18 11:54) Flushing, ITCHING Height/Weight/Isolation Height 5 ft Weight 71 kg Chemistry 11/28/18 11/29/18 11/30/18 11:25 05:38 07:41 Sodium 143 143 142 Potassium 3.3 L 3.5 3.4 L Chloride 110 H 108 H 107 Carbon Dioxide 27 28 29 Anion Gap 6.0 7.0 6.0 BUN 11 14 20 H Creatinine 1.03 1.10 1.15 Glucose 120 H 128 H 133 H Hospital Course (1) Shortness of breath: Secondary to CHF, discussed case with Dr. Grant, she can discharged. She has an appointment with Dr. Sheryl Ortiz that Dr. Grant wants her to keep, says cannot do much more for her here, she may need to go to [place] and be evaluated for a heart transplant. (2) Acute on chronic diastolic CHF (congestive heart failure): Reported wheezing, SOB with increased SOB on exertion past 3 days. Past 1- 2 days R shoulder pain/R chest pain/R arm pain. Some intermittent dizziness. Denies diaphoresis. No fever/chills. Slight dry cough started while in ER today. In ER afebrile, P: 80- 90, R: 20-24, BP: 148/84-154/73, Pulse ox: 90-98% on RA. WBC: 8, troponin: 0.17 (0.09 in 08/2018, chronically elevated). No acute ekg changes compared to previous. Negative flu swab CXR: Cardiomegaly and AICD with mild pulmonary vascular congestion. DC home today and follow-up with her back around in the office next week (3) Hypertrophic cardiomyopathy: S/P prophylactic pacer/defibrillator (4) COPD (chronic obstructive pulmonary disease): DC on inhalers and tapering steroids. (5) Hypomagnesemia: -monitor magnesium (6) Hypokalemia: monitor potassium (7) Elevated troponin: Chronically elevated troponin (8) Hypertension: Monitor outpatient (9) Diabetes mellitus, type 2: Resume outpatient regimen (10) HLD (hyperlipidemia): -Continue statin CPK was normal (11) CADENCE (obstructive sleep apnea): Intolerant to CPAP Reports is to have another out patient sleep study -oxygen 2L HS, on home O2 (12) GERD (gastroesophageal reflux disease): -continue PPI (13) CKD (chronic kidney disease), stage III: at baseline -monitor renal functions (14) Anxiety: Controlled on duloxetine (15) Depression: -continue cymbalta (16) Restless leg syndrome: -continue requip, remeron Follows with Dr Suad De León for routine care, follow-up with Dr. Sheryl Cabrera has an appointment for this week. Total Time Total Time Spent Total Time Spent (In Minutes): 55 minutes Total Time Includes: Examination of the Patient, Discharge Planning, Medication Reconciliation and Communication With Other Providers Discharge Plan Discharge Items Patient Disposition: Home - Self-Care Reason For Visit: SOB Discharge Diagnosis: (1) Shortness of breath: (2) Acute on chronic diastolic CHF (congestive heart failure): (3) Hypertrophic cardiomyopathy: (4) COPD (chronic obstructive pulmonary disease): (5) Hypomagnesemia: (6) Hypokalemia: (7) Elevated troponin: (8) Hypertension: (9) Diabetes mellitus, type 2: (10) HLD (hyperlipidemia): (11) CADENCE (obstructive sleep apnea): (12) GERD (gastroesophageal reflux disease): (13) CKD (chronic kidney disease), stage III: (14) Anxiety: (15) Depression: (16) Restless leg syndrome: Discharge Goals: Decrease discomfort and Improve function Activity: Resume your previous activity Activity Comment: As tolerated Lifting: Gradually increase as tolerated Bathing: No limitations Sexual Activity: When tolerated Exercise/Sports: Gradually increase as tolerated Driving/Machine Use: No limitations Weightbearing: Left weightbearing and Right weightbearing Non-emergency contact: Primary Care Provider and Equipment Washer Call non-emergency contact if: your symptoms worsen Diet: Carb Consistent or DM2 and Heart Healthy Addtl Provider Instructions: Has follow-up appointment this week with heart failure specialist, maximize current function medically, may need cardiac transplant Prescriptions: Continue ropinirole 0.5 mg Tablet 0.5 mg PO HS RF: 0 duloxetine 60 mg Capsule,Delayed Release(Dr/Ec) 60 mg PO QDL RF: 0 mirtazapine 30 mg Tablet 30 mg PO HS RF: 0 omeprazole 40 mg Capsule,Delayed Release(Dr/Ec) 40 mg PO QAM RF: 0 aspirin [Aspir-81] 81 mg Tablet,Delayed Release (Dr/Ec) 81 mg PO QAM RF: 0 folic acid 1 mg Tablet 1 mg PO HS RF: 0 sumatriptan succinate 25 mg Tablet 50 mg PO DIRECTED PRN (Reason: Headache) RF: 0 albuterol sulfate [Ventolin HFA] 90 mcg/actuation Hfa Aerosol Inhaler 2 puff INHALATION QID PRN (Reason: Shortness Of Breath) RF: 0 atorvastatin [Lipitor] 40 mg Tablet 40 mg PO QAM RF: 0 metformin 500 mg Tablet 1,000 mg PO BIDM RF: 0 albuterol sulfate 2.5 mg /3 mL (0.083 %) solution for nebulization 3 ml Inhalation Q4H PRN (Reason: Wheezing) RF: 0 fluticasone-salmeterol 500-50 mcg/dose blister with device 1 puff Inhalation BID RF: 0 metoprolol succinate 50 mg tablet extended release 24 hr 75 mg PO DAILY RF: 0 furosemide [Lasix] 40 mg Tablet 40 mg PO DAILY RF: 0 spironolactone 25 mg Tablet 12.5 mg PO DAILY RF: 0 montelukast 10 mg Tablet 10 mg PO PM RF: 0 Discontinued furosemide [Lasix] 40 mg Tablet 40 mg PO UD RF: 0 No Action gabapentin [Neurontin] 300 mg Capsule 600 mg PO TID RF: 0 Visit Report Forms: [facility] Portal Stand-Alone Forms: [facility] Discharge Orders: Discharge Order (Routine); Ordered 11/30/18 Ordered By: Valdemar Reyes Admission Data Admit Date/Time: 11/28/18 14:28 Attending Provider: Valdemar Reyes Admit Provider: Adis Christianson Primary Care Provider: Suad De León Other Providers: Luther Verdugo ; Adis Christianson ; Caleb Brantley Service: Telemetry
[2018-11-30] MEDS: DULOXETINE HCL 60 MG CAP PO SCH (12:49)
== END 2018-11-30 17:54 | disposition home or self-care (01) | DRG 291 ==
LOC: ED 10:36 → 2N 14:28

== ENCOUNTER 2019-02-16 01:00 | Inpatient (IN) ==
[2019-02-16] MEDS ORDERED: ALBUT/IPRATROP 3MG/0.5MG NEB 3 ML VIAL NEB STA (01:49)
[2019-02-16 02:00] LABS: Basophils # (auto) 0.02 K/uL (0-0.2); Basophils % (auto) 0.2 %; Eosinophils # (auto) 0.08 K/uL (0-0.5); Eosinophils % (auto) 0.7 %; Hematocrit (blood only) 36.7 % (37-47); Hemoglobin 12.3 g/dL (12.0-16.0); Immature Granulocytes # (auto) 0.03 K/uL (0.00-0.02); Immature Granulocytes % (auto) 0.3 %; Lymphocytes % (auto) 14.9 %; Mean Corpuscular Hgb Conc 33.5 g/dL (32-36); Mean Corpuscular Volume 90.2 fL (80-100); Mean Platelet Volume 9.3 fL (7.4-10.4); Monocytes # (auto) 0.47 K/uL (0.11-0.59); Monocytes % (auto) 4.1 %; Neutrophils # (auto) 9.08 K/uL (1.4-6.5); Neutrophils % (auto) 79.8 %; Platelet Count 193 K/uL (130-400); RDW Coefficient of Variation 15.4 % (11.5-14.5); RDW Standard Deviation 51.1 fL (36.4-46.3); Red Blood Count 4.07 M/uL (4.2-5.4); White Blood Count 11.38 K/uL (4.8-10.8)
[2019-02-16 02:17] LABS: BUN Creatinine Ratio 17.3 (10-20); Calcium 8.4 mg/dl (8.5-10.1); Creatinine Clr Calc Pharmacy 40.2 ml/min; Est GFR (African American) 52.7; Est GFR (Non-African American) 45.5; Magnesium 1.4 mg/dl (1.8-2.4); Potassium 3.9 mmol/L (3.5-5.1)
[2019-02-16 02:29] LABS: Troponin I 0.211 ng/ml (0-0.045)
[2019-02-16] MEDS ORDERED: FUROSEMIDE 40 MG/4 ML VIAL IV STA (02:54)
[2019-02-16 03:01] LABS: Appearance Urine Cloudy (Clear); Bacteria Urine Automated 4+ (Negative); Bilirubin Urine Negative (Negative); Blood Urine 3+ (Negative); Cast Urine Automated 0 /lpf (0-5); Color Urine Yellow; Epithelial Cell Urine Auto 20-30 /lpf (0-5); Glucose Urine UA Negative (Negative); Ketones Urine Negative (Negative); Leukocyte Esterase Urine 3+ (Negative); Nitrite Urine Positive (Negative); Protein Urine Negative (Negative); RBC Urine Automated >30 /hpf (0-4); Specific Gravity Urine 1.016 (1.000-1.030); Urobilinogen Urine Negative (Negative); WBC Urine Automated >30 /hpf (0-5); pH Urine 5.5 (4.5-7.5)
[2019-02-16] MEDS ORDERED: cefTRIAXone SODIUM 1,000 MG/50 ML BAG IV STA (03:06)
--- NOTE | 2019-02-16 03:38 | History & Physical Report ---
Date of Service February 16, 2019 Assessment & Plan (1) Acute on chronic diastolic CHF (congestive heart failure): (2) UTI (urinary tract infection): (3) CKD (chronic kidney disease), stage III: (4) GERD (gastroesophageal reflux disease): (5) Hypertension: (6) HLD (hyperlipidemia): (7) Anxiety: (8) Cardiac defibrillator in place: (9) Elevated troponin: (10) Hypomagnesemia: (11) DVT prophylaxis: (12) CADENCE (obstructive sleep apnea): (13) Hypertrophic cardiomyopathy: (14) Shortness of breath: (15) COPD (chronic obstructive pulmonary disease): (16) Fatty (change of) liver, not elsewhere classified: (17) Anxiety disorder: (18) 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 She presented to our ER tonight and was found to have a BNP in the 4700 range. She was also found to have a urinary tract infection. Patient was here in the middle of November for similar symptoms. Assessment and Plan Acute on chronic diastolic congestive heart failure Urinary tract infection Hypertension Type 2 diabetes Obstructive sleep apnea syndrome GERD Chronic kidney disease stage III Hypertrophic cardiomyopathy COPD Hypomagnesemia Elevated troponin Restless leg syndrome Depression Anxiety Start her on Rocephin, Lasix 40 mg IV every 12, consult to cardiology, replace electrolytes, continue outpatient medications where appropriate, monitor daily labs, SCDs and subcu heparin. Patient meets inpatient criteria will be admitted to telemetry. ROS-No Headache, No Visual Changes, No Fever, No Chills, No Neck Pain or Stiffness, No Chest Pain, No Palpitations, positive SOB, positive BRUSH, No Cough, No Sputum, mild wheezing, No Abdominal Pain, No Diarrhea, No Hematemesis, No Hemoptysis, No Unexpected Weight Loss, No Flank pain, No Melena, No Hematochezia, No Frequency, No Urgency, No Burning, No Hematuria, No Rashes, No Diaphoresis. Appetite is Normal, complains of edema and generalized weakness Physical Exam Gen-AAO x 3, NAD, Afebrile, obese Head-NCAT, EOMI, PERRLA, Anicteric Sclera, No Posterior Pharyngeal Erythema Neck-Supple, No JVD, No Thyromegaly, No Masses, No LAD, No Bruits Lungs-decreased breath sounds at the bases and rales at the bases, No Rhonchi, No Wheezing, No Crepitus Chest-No S4, +S1, +S2, No S3, No Murmurs, No Rubs, No Gallops, No Ectopy Abdomen-Soft, Bowel Sounds Present, obese, non Tender, Non Distended, No Hepatomegaly, No Splenomegaly, No Palpable Masses, No Rebound, No Rigidity, No Guarding Musculoskeletal-Full Range of Motion Bilaterally, No CVAT Extremities-No Cyanosis, No Clubbing, 1+ pitting edema Nuero-Cranial Nerves II-XII grossly intact, Motor WNL, DTRs WNL, Strength WNL, No Focal Psych-Normal Mood PMH-acute on chronic diastolic heart failure, hypertrophic cardiomyopathy, COPD, anemia, elevated troponins, CKD 3, GERD, obstructive sleep apnea syndrome, restless leg syndrome, depression, anxiety PSH-appendectomy, , colostomy with bowel perforation, and reversal, hernia repair FH-Father of an acute SD mother is alive and relatively healthy SH- no tobacco, drugs, alcohol Meds reviewed and Reconciled Labs Reviewed Allergies Allergy/AdvReac Type Severity Reaction Status Date / Time Sulfa (Sulfonamide Allergy Intermediate swelling Verified 02/16/19 01:52 Antibiotics) doxycycline Allergy Unknown UNKNOWN Verified 02/16/19 01:52 Penicillins Allergy Unknown Flushing, Verified 02/16/19 01:52 ITCHING adhesive AdvReac Intermediate blistering Verified 02/16/19 01:52 Home Medications Home Medications Medication Instructions Recorded Confirmed Type albuterol sulfate [Ventolin HFA] 2 puff INHALATION QID PRN 08/09/18 02/16/19 History atorvastatin [Lipitor] 40 mg PO QAM 08/09/18 02/16/19 History duloxetine 60 mg PO QDL 08/09/18 02/16/19 History folic acid 1 mg PO HS 08/09/18 02/16/19 History gabapentin [Neurontin] 600 mg PO TID 08/09/18 02/16/19 History mirtazapine 30 mg PO HS 08/09/18 02/16/19 History omeprazole 40 mg PO QAM 08/09/18 02/16/19 History ropinirole 0.5 mg PO HS 08/09/18 02/16/19 History sumatriptan succinate 50 mg PO DIRECTED PRN 08/09/18 02/16/19 History metformin 1,000 mg PO BIDM 08/12/18 02/16/19 History albuterol sulfate 3 ml INHALATION Q4H PRN 09/09/18 02/16/19 History fluticasone propion-salmeterol 1 puff INHALATION BID 09/09/18 02/16/19 History furosemide [Lasix] 40 mg PO 5XWK 11/28/18 02/16/19 History montelukast 10 mg PO PM 11/28/18 02/16/19 History spironolactone 12.5 mg PO DAILY 11/28/18 02/16/19 History furosemide 80 mg PO 2XWK 12/03/18 02/16/19 History metoprolol succinate 100 mg PO BID 12/03/18 02/16/19 History aspirin 81 mg PO DAILY 12/19/18 02/16/19 History diphenoxylate-atropine [Lomotil] 1 tab PO QID PRN 12/19/18 02/16/19 History ondansetron HCl [Zofran] 4 mg PO TID PRN 12/19/18 02/16/19 History Past Med/Surg History Medical History CKD (chronic kidney disease), stage III (Chronic) GERD (gastroesophageal reflux disease) (Chronic) HLD (hyperlipidemia) (Chronic) Hypertension (Chronic) Anxiety (Chronic) Cardiac defibrillator in place (Chronic) 2014 CADENCE (obstructive sleep apnea) (Chronic) Hypertrophic cardiomyopathy (Chronic) CHF (congestive heart failure) Asthma (Chronic) COPD (chronic obstructive pulmonary disease) (Chronic) Fatty (change of) liver, not elsewhere classified (Chronic) Arthritis (Chronic) Diabetes mellitus, type 2 (Chronic) Pancreatic cyst (Chronic) Depression (Chronic) Hydronephrosis of right kidney (Chronic) Elevated troponin (Chronic) Restless leg syndrome (Chronic) Surgical History History of appendectomy (Resolved) 1970s H/O section (Resolved) 1979 & 1982 History of colostomy reversal (Resolved) bowel perf 2014 with colostomy reversed in 2014 H/O hernia repair (Resolved) 2016 Status post partial resection of colon (Chronic) "diverticulitis 11/05/14" History of colostomy reversal (Chronic) "04/19/15" Status post appendectomy (Chronic) Status post internal cardiac defibrillator procedure (Chronic) "2014" Family History Other Hypertrophic cardiomyopathy Stomach cancer Thyroid disorder Social History Preferred Language: Greek Beliefs That Will Affect Care: None marital status: Current Living Situation: Spouse Feels Safe at Home: Yes Smoking Status: Never smoker Hx Alcohol Use: No Hx Substance Use: No Physical Exam Vital Signs (Past 24 Hours): Last Vital Signs Temp 36.8 C 02/16/19 01:03 Pulse 82 02/16/19 02:41 Resp 18 02/16/19 02:41 BP 127/69 02/16/19 02:41 Pulse Ox 94 02/16/19 02:41 (1) Anxiety disorder Anxiety disorder type: generalized anxiety disorder Qualified Code(s): F41.1 - Generalized anxiety disorder
[2019-02-16] MEDS: MAGNESIUM SULFATE / D5W 1 GM/100 ML BAG IV SCH ×2 (03:45→05:01)
[2019-02-16] MEDS ORDERED: CARBOHYDRATES FOR HYPOGLYCEMIA PO PRN (04:32)
[2019-02-16] MEDS ORDERED: ONDANSETRON INJ 2 MG/ML 2 ML VIAL IV PRN (04:32)
[2019-02-16] MEDS ORDERED: ALUMINUM/MAGNESIUM SUSP 30 ML UDC PO PRN (04:32)
[2019-02-16] MEDS ORDERED: DEXTROSE 50% 50 ML SYRINGE IV PRN (04:32)
[2019-02-16] MEDS ORDERED: GLUCOSE 40% GEL 15 GM TUBE PO PRN (04:32)
[2019-02-16] MEDS ORDERED: GLUCOSE 10 TABS/TUBE PO PRN (04:32)
[2019-02-16] MEDS ORDERED: SUMAtriptan succinate 25 MG TAB PO PRN (04:32)
[2019-02-16] MEDS ORDERED: POLYETHYLENE (MIRALAX) 17 GM PACK PO PRN (04:32)
[2019-02-16] MEDS ORDERED: ALBUTEROL 0.083% NEBU SOLN 3 ML VIAL INH PRN (04:32)
[2019-02-16] MEDS ORDERED: DIPHENOXYLATE/ATROPINE 2.5/0.025MG TAB PO PRN (04:32)
[2019-02-16] MEDS ORDERED: NITROGLYCERIN SL 0.4 MG/TAB TAB SL PRN (04:32)
[2019-02-16] MEDS ORDERED: GLUCAGON FOR INJ 1 MG VIAL SQ PRN (04:32)
[2019-02-16] MEDS ORDERED: PHARMACY GLYCEMIC MGMT CONSULT PRN (04:47)
[2019-02-16] MEDS: INSULIN ASPART 100 UNITS/ML 3 ML PEN SC SCH ×5 (05:51→21:52)
[2019-02-16 06:19] LABS: Hematocrit (blood only) 36.7 % (37-47); Hemoglobin 12.4 g/dL (12.0-16.0); Mean Corpuscular Hgb Conc 33.8 g/dL (32-36); Mean Corpuscular Volume 90.2 fL (80-100); Mean Platelet Volume 9.6 fL (7.4-10.4); Platelet Count 183 K/uL (130-400); RDW Coefficient of Variation 15.3 % (11.5-14.5); RDW Standard Deviation 50.5 fL (36.4-46.3); Red Blood Count 4.07 M/uL (4.2-5.4); White Blood Count 11.26 K/uL (4.8-10.8)
[2019-02-16 06:43] LABS: BUN Creatinine Ratio 17.6 (10-20); Calcium 8.4 mg/dl (8.5-10.1); Creatinine Clr Calc Pharmacy 44.2 ml/min; Est GFR (African American) 58.2; Est GFR (Non-African American) 50.3; Potassium 3.6 mmol/L (3.5-5.1)
[2019-02-16 07:18] LABS: Prothrombin Time 10.7 Seconds (9.0-12.0)
--- NOTE | 2019-02-16 07:27 | XRay Report ---
XR chest 1V portable HISTORY: 59 years-old Female SHOB acute shortness of breath with weakness COMPARISON: Chest radiograph 12/03/2018 TECHNIQUE: Portable AP view of the chest FINDINGS: Cardiac silhouette is enlarged. Right pectoral pacer/AICD appears unchanged. There is no pneumothorax , pleural effusion, focal airspace consolidation or overt pulmonary edema. Mild right hemidiaphragmat ic elevation. Degenerative changes of the shoulders and spine. IMPRESSION: Cardiomegaly without acute process. The above report was generated using voice recognition software. It may contain grammatical, syntax o r spelling errors. Electronically signed by: Vidal Jay M.D. 02/16/2019 7:26 AM
--- NOTE | 2019-02-16 08:33 | Emergency Department Note ---
Entered by Denice Schilling acting as a scribe for ED Provider Note Name: Kalie Velasquez Age: 59 F Arrives Via: Private vehicle Informant: The patient CC: Shortness of breath HPI: A 59 year old female arrives for evaluation of persistent shortness of breath starting 1 day ago. The patient reports that she is short of breath. She states that she is nauseous and has diarrhea. She notes that she normally uses 2L supplemental oxygen at home. She adds that she has diabetes and that her sugars have been slightly higher than normal. She reports that she has had CHF before and that she is worried that these symptoms are similar to when she experience CHF. She states that her ankles are slightly more swollen that normal. She notes that she has a nebulizer at home that she uses when she feels short of breath. She notes that lying flat does not worsen her symptoms. She denies chest pain, cough and vomiting. ROS: See above HPI for pertinent positives & negatives. A total of 10 systems reviewed and were otherwise negative. Past Medical History: CKD, GERD, HLD, HTN, Anxiety, CADENCE, CHF, DM, COPD, Depression, Pancreatic cyst, Restless leg syndrome. Past Surgical History: Appendectomy, section, Colostomy reversal, hernia repair, Partial resection of colon, Internal cardiac defibrillator. Family History: Cardiomyopathy, stomach cancer Social History: Lives at home. Never a smoker. Home Medications: Albuterol Sulfate 3 ml INH, Aspirin 81 mg PO, Lipitor 40 mg PO, Lomotil 1 tab PO, Lipitor 40 mg PO, Duloxetine 60 mg PO, Folic acid 1 mg PO, Furosemide 80 mg PO, Lasix 40 mg PO, Neurotin 600 mg PO, Metformin 1000 mg PO, M etoprolol succinate 100 mg PO, Mirtazapine 30 mg PO, Montelukast 10 mg PO, Omeprazole 40 mg PO, Zofran 4 mg PO, Ropinirole 0.5 mg PO, Spironolactone 12.5 mg PO, Sumitriptan succinate 50 mg PO. Allergies Sulfa, Doxycycline, PEnicillin, Adhesive. Physical: Vitals: BP: 127/69, Pulse: 82, Resp: 18, Temp: 98.2F, O2 Sat: 94, Delivery: Na russell Cannula, 2L/min Exam: GENERAL: Patient is anxious appearing and in no acute distress. EYES: No scleral icterus, unremarkable pupils. ENT: Mucous membranes moist, no nasal congestion. NECK: No masses appreciated, no meningismus, trachea is midline. RESPIRATORY: Clear to auscultation and equal bilaterally. Mild dyspnea with mild diffuse wheezing. CARDIOVASCULAR: Regular rate and rhythm. No murmurs, rubs, gallops appreciated. GASTROINTESTINAL: Abdomen soft, non-tender, no peritonitis. Bowel sounds positive. No masses appreciated. BACK: No midline tenderness, no CVA tenderness EXTREMITIES: Normal motion all extremities, no cyanosis. Trace edema bilateral ankles. NEUROLOGIC: Alert and oriented, no acute motor or sensory deficits, no focal weakness, cranial nerves grossly intact. SKIN: No rash, no jaundice, no diaphoresis. ED Course: 0145: Prior Medical Record, Triage/Nursing Notes, Medications, Allergies reviewed by Me. Past medical records reviewed. The patient was evaluated in room C4, and a complete history and physical examination were performed. 0254: I reevaluated the patient at this time who states that she has been fe eling weak and tired. She reports that she has been unable to ambulate due to weakness for the past few days. She is agreeable to hospitalization. She denies any current chest pain. Dr. Eric leavitt has been paged. 0256: I reviewed the patient's case with Dr. Eric Jimenez [facility]. He will evaluate the patient for further management. Vital Signs: reviewed and remarkable for wnl Labs: Reviewed and remarkable for mildly elevated BSG, trop elevation chronic, hypomag, + UTI, baseline elevation Troponin Interventions: Saline Lock, Lasix 40mg IV, Magnesium 2 Gm IV, Rocephin 1 G IV Imaging: X ray results are stated below per my interpretation: Chest: 1 view: Moderate congestive failure with large heart border EKG: no ischemia Consults: Dr Meliza Perales Blood pressure: Normal. No Referral necessary Disposition: Hospitalization Differentials: Etiologies such as infections, reactive airway disease, COPD, pneumonia, pleural effusion, pulmonary edema, ARDS, pneumothorax, CHF, cardiac ischemia, cardiac tamponade, dysrhythmia, anemia, pulmonary embolism, musculoskeletal, gastrointestinal process, as well as others were entertained. Medical Decision Making: Pleasant 59 yr old female arrives with generalized weakness over last few days following resolved flu like illness. Now with worsenign shortness of breath and ankle swelling. Congestive failure by exam and with CXR. BNP elevated. Mag is quite low, consistent with her severe weakness last few days. Given IV lasix and mag. Hospitalist in to evaluate further given how weak she is. Trop elevat ed though this is base for her. UTI and thus given IV Rocephin. Impression: Hypomagnesemia Congestive Heart Failure Generalized Weakness Acute UTI Dinesh Martínez MD The scribe's documentation has been prepared under my direction and personally reviewed by me in its entirety. I confirm that the note above accurately reflects all work, treatment, procedures, and medical decision making performed by me. Impression & Plan Hypomagnesemia, Congestive heart failure, Generalized weakness, Acute UTI Past Med/Surg History Medical History CKD (chronic kidney disease), stage III (Chronic) GERD (gastroesophageal reflux disease) (Chronic) HLD (hyperlipidemia) (Chronic) Hypertension (Chronic) Anxiety (Chronic) Cardiac defibrillator in place (Chronic) 2014 CADENCE (obstructive sleep apnea) (Chronic) Hypertrophic cardiomyopathy (Chronic) CHF (congestive heart failure) Asthma (Chronic) COPD (chronic obstructive pulmonary disease) (Chronic) Fatty (change of) liver, not elsewhere classified (Chronic) Arthritis (Chronic) Diabetes mellitus, type 2 (Chronic) Pancreatic cyst (Chronic) Depression (Chronic) Hydronephrosis of right kidney (Chronic) Elevated troponin (Chronic) Restless leg syndrome (Chronic) Surgical History History of appendectomy (Resolved) 1970s H/O section (Resolved) 1979 & 1982 History of colostomy reversal (Resolved) bowel perf 2013 with colostomy reversed in 2014 H/O hernia repair (Resolved) 2016 Status post partial resection of colon (Chronic) "diverticulitis 11/05/14" History of colostomy reversal (Chronic) "04/19/15" Status post appendectomy (Chronic) Status post internal cardiac defibrillator procedure (Chronic) "2014" Family History Other Hypertrophic cardiomyopathy Stomach cancer Thyroid disorder Social History Preferred Language: Georgian Stranner Required: No Beliefs That Will Affect Care: None marital status: Current Living Situation: Spouse Other Information That Helps Us Care for You: No Feels Safe at Home: Yes Safety Concerns: Feels Safe At This Time Smoking Status: Never smoker Hx Alcohol Use: No Hx Substance Use: No Results & Data Vital Signs Vital Signs - 24 hr 02/16/19 01:03 02/16/19 01:37 02/16/19 02:41 Temperature 36.8 C Temperature Source Oral Sepsis Recent Fever Within 48 Hours No Sepsis Action Taken by Nursing No Action Required Pulse Rate 82 Pulse Rate [Finger] 82 Pulse Rhythm Regular Pulse Rhythm [Finger] Pulse Strength Normal Pulse Strength [Finger] Respiratory Rate 18 18 Respiratory Effort / Characteristics Non-Labored Spontaneous Respiratory Depth Normal Respiratory Pattern Blood Pressure 139/84 Blood Pressure [Left Arm] 127/69 Blood Pressure Mean 102 Blood Pressure Mean [Left Arm] 88 Blood Pressure Position Sitting Blood Pressure Position [Left Arm] Pulse Oximetry 94 94 Oxygen Delivery Method Nasal Cannula Room Air Nasal Cannula Oxygen Flow Rate 2 92 2 02/16/19 04:42 02/16/19 05:09 02/16/19 05:18 Temperature 36.7 C Temperature Source Oral Sepsis Recent Fever Within 48 Hours Sepsis Action Taken by Nursing Pulse Rate 83 Pulse Rate [Finger] 84 Pulse Rhythm Pulse Rhythm [Finger] Regular Pulse Strength Pulse Strength [Finger] Normal Respiratory Rate 20 Respiratory Effort / Characteristics Non-Labored Spontaneous Non-Labored Spontaneous Respiratory Depth Normal Normal Respiratory Pattern Regular Regular Blood Pressure Blood Pressure [Left Arm] 121/68 Blood Pressure Mean Blood Pressure Mean [Left Arm] 85 Blood Pressure Position Blood Pressure Position [Left Arm] Lying Pulse Oximetry 98 Oxygen Delivery Method Nasal Cannula Nasal Cannula Oxygen Flow Rate 2 2 02/16/19 07:12 Temperature 36.5 C Temperature Source Oral Sepsis Recent Fever Within 48 Hours Sepsis Action Taken by Nursing Pulse Rate Pulse Rate [Finger] 75 Pulse Rhythm Pulse Rhythm [Finger] Pulse Strength Pulse Strength [Finger] Respiratory Rate 18 Respiratory Effort / Characteristics Respiratory Depth Respiratory Pattern Blood Pressure Blood Pressure [Left Arm] 117/72 Blood Pressure Mean Blood Pressure Mean [Left Arm] 87 Blood Pressure Position Blood Pressure Position [Left Arm] Lying Pulse Oximetry 90 Oxygen Delivery Method Room Air Oxygen Flow Rate Home Medications Current Medication List: was personally reviewed by me Laboratory Data Attestation: I reviewed the patient's lab results. Result diagrams: 02/16/19 05:39 02/16/19 05:39 Lab Results 02/16/19 02/16/19 02/16/19 Range/Units 01:45 01:45 01:45 WBC 11.38 H (4.8-10.8) K/uL RBC 4.07 L (4.2-5.4) M/uL Hgb 12.3 (12.0-16.0) g/dL Hct 36.7 L (37-47) % MCV 90.2 (80-100) fL MCH 30.2 (25-34) pg MCHC 33.5 (32-36) g/dL RDW Std Deviation 51.1 H (36.4-46.3) fL RDW Coeff of Rolan 15.4 H (11.5-14.5) % Plt Count 193 (130-400) K/uL MPV 9.3 (7.4-10.4) fL Immature Gran % (Auto) 0.3 % Neut % (Auto) 79.8 % Lymph % (Auto) 14.9 % Bergen % (Auto) 4.1 % Eos % (Auto) 0.7 % Baso % (Auto) 0.2 % Immature Gran # (Auto) 0.03 H (0.00-0.02) K/uL Neut # (Auto) 9.08 H (1.4-6.5) K/uL Lymph # (Auto) 1.70 (1.2-3.4) K/uL Bergen # (Auto) 0.47 (0.11-0.59) K/uL Eos # (Auto) 0.08 (0-0.5) K/uL Baso # (Auto) 0.02 (0-0.2) K/uL PT (9.0-12.0) Seconds INR (0.9-1.1) Sodium 141 Cancelled (136-145) mmol/L Potassium 3.9 Cancelled (3.5-5.1) mmol/L Chloride 107 Cancelled (98-107) mmol/L Carbon Dioxide 29 Cancelled (21-32) mmol/L Anion Gap 5.0 Cancelled (3-11) BUN 22 H Cancelled (7-18) mg/dl Creatinine 1.27 H Cancelled (0.6-1.2) mg/dl Est Cr Clr Drug Dosing 40.2 Cancelled ml/min Est GFR ( Amer) 52.7 Cancelled Est GFR (Non-Af Amer) 45.5 Cancelled BUN/Creatinine Ratio 17.3 Cancelled (10-20) Glucose 198 H Cancelled (70-99) mg/dl POC Glucose (70-99) Calcium 8.4 L Cancelled (8.5-10.1) mg/dl Magnesium 1.4 L (1.8-2.4) mg/dl Troponin I 0.211 H* Cancelled (0-0.045) ng/ml NT-Pro-B Natriuret Pep 4669 H (0-900) pg/ml Urine Color Urine Appearance (Clear) Urine pH (4.5-7.5) Ur Specific Bussey (1.000-1.030) Urine Protein (Negative) Urine Glucose (UA) (Negative) Urine Ketones (Negative) Urine Blood (Negative) Urine Nitrite (Negative) Urine Bilirubin (Negative) Urine Urobilinogen (Negative) Ur Leukocyte Esterase (Negative) Urine WBC (Auto) (0-5) /hpf Urine RBC (Auto) (0-4) /hpf U Hyaline Cast (Auto) (0-5) /lpf U Epithel Cells (Auto) (0-5) /lpf Urine Bacteria (Auto) (Negative) 02/16/19 02/16/19 02/16/19 Range/Units 01:45 02:33 05:23 WBC (4.8-10.8) K/uL RBC (4.2-5.4) M/uL Hgb (12.0-16.0) g/dL Hct (37-47) % MCV (80-100) fL MCH (25-34) pg MCHC (32-36) g/dL RDW Std Deviation (36.4-46.3) fL RDW Coeff of Rolan (11.5-14.5) % Plt Count (130-400) K/uL MPV (7.4-10.4) fL Immature Gran % (Auto) % Neut % (Auto) % Lymph % (Auto) % Bergen % (Auto) % Eos % (Auto) % Baso % (Auto) % Immature Gran # (Auto) (0.00-0.02) K/uL Neut # (Auto) (1.4-6.5) K/uL Lymph # (Auto) (1.2-3.4) K/uL Bergen # (Auto) (0.11-0.59) K/uL Eos # (Auto) (0-0.5) K/uL Baso # (Auto) (0-0.2) K/uL PT 10.7 (9.0-12.0) Seconds INR 1.0 (0.9-1.1) Sodium (136-145) mmol/L Potassium (3.5-5.1) mmol/L Chloride (98-107) mmol/L Carbon Dioxide (21-32) mmol/L Anion Gap (3-11) BUN (7-18) mg/dl Creatinine (0.6-1.2) mg/dl Est Cr Clr Drug Dosing ml/min Est GFR ( Amer) Est GFR (Non-Af Amer) BUN/Creatinine Ratio (10-20) Glucose (70-99) mg/dl POC Glucose 198 H (70-99) Calcium (8.5-10.1) mg/dl Magnesium (1.8-2.4) mg/dl Troponin I (0-0.045) ng/ml NT-Pro-B Natriuret Pep (0-900) pg/ml Urine Color Yellow Urine Appearance Cloudy H (Clear) Urine pH 5.5 (4.5-7.5) Ur Specific Bussey 1.016 (1.000-1.030) Urine Protein Negative (Negative) Urine Glucose (UA) Negative (Negative) Urine Ketones Negative (Negative) Urine Blood 3+ H (Negative) Urine Nitrite Positive H (Negative) Urine Bilirubin Negative (Negative) Urine Urobilinogen Negative (Negative) Ur Leukocyte Esterase 3+ H (Negative) Urine WBC (Auto) >30 H (0-5) /hpf Urine RBC (Auto) >30 H (0-4) /hpf U Hyaline Cast (Auto) 0 (0-5) /lpf U Epithel Cells (Auto) 20-30 H (0-5) /lpf Urine Bacteria (Auto) 4+ H (Negative) 02/16/19 02/16/19 02/16/19 Range/Units 05:39 05:39 07:19 WBC 11.26 H (4.8-10.8) K/uL RBC 4.07 L (4.2-5.4) M/uL Hgb 12.4 (12.0-16.0) g/dL Hct 36.7 L (37-47) % MCV 90.2 (80-100) fL MCH 30.5 (25-34) pg MCHC 33.8 (32-36) g/dL RDW Std Deviation 50.5 H (36.4-46.3) fL RDW Coeff of Rolan 15.3 H (11.5-14.5) % Plt Count 183 (130-400) K/uL MPV 9.6 (7.4-10.4) fL Immature Gran % (Auto) % Neut % (Auto) % Lymph % (Auto) % Bergen % (Auto) % Eos % (Auto) % Baso % (Auto) % Immature Gran # (Auto) (0.00-0.02) K/uL Neut # (Auto) (1.4-6.5) K/uL Lymph # (Auto) (1.2-3.4) K/uL Bergen # (Auto) (0.11-0.59) K/uL Eos # (Auto) (0-0.5) K/uL Baso # (Auto) (0-0.2) K/uL PT (9.0-12.0) Seconds INR (0.9-1.1) Sodium 140 (136-145) mmol/L Potassium 3.6 (3.5-5.1) mmol/L Chloride 105 (98-107) mmol/L Carbon Dioxide 27 (21-32) mmol/L Anion Gap 8.0 (3-11) BUN 21 H (7-18) mg/dl Creatinine 1.17 (0.6-1.2) mg/dl Est Cr Clr Drug Dosing 44.2 ml/min Est GFR ( Amer) 58.2 Est GFR (Non-Af Amer) 50.3 BUN/Creatinine Ratio 17.6 (10-20) Glucose 195 H (70-99) mg/dl POC Glucose 175 H (70-99) Calcium 8.4 L (8.5-10.1) mg/dl Magnesium (1.8-2.4) mg/dl Troponin I (0-0.045) ng/ml NT-Pro-B Natriuret Pep (0-900) pg/ml Urine Color Urine Appearance (Clear) Urine pH (4.5-7.5) Ur Specific Bussey (1.000-1.030) Urine Protein (Negative) Urine Glucose (UA) (Negative) Urine Ketones (Negative) Urine Blood (Negative) Urine Nitrite (Negative) Urine Bilirubin (Negative) Urine Urobilinogen (Negative) Ur Leukocyte Esterase (Negative) Urine WBC (Auto) (0-5) /hpf Urine RBC (Auto) (0-4) /hpf U Hyaline Cast (Auto) (0-5) /lpf U Epithel Cells (Auto) (0-5) /lpf Urine Bacteria (Auto) (Negative) Administered Medications Insulin Aspart (Novolog Flexpen) 0 units SC ACHS MARILEE; Protocol Stop: 03/18/19 04:44 Last Admin: 02/16/19 05:51 Dose: 2 units Documented by: [id number] Cosigned by: [id number] Discontinued Medications Albuterol (Duoneb) 3 ml NEB NOW STA Stop: 02/16/19 01:50 Last Admin: 02/16/19 01:54 Dose: 3 ml Documented by: [id number] Furosemide (Lasix) 40 mg IV NOW STA Stop: 02/16/19 02:55 Last Admin: 02/16/19 03:14 Dose: 40 mg Documented by: [id number] Magnesium Sulfate/Dextrose (Magnesium Sulfate / D5w) 1 gm in 100 mls @ 100 mls/hr IV Q1H [facility] Stop: 02/16/19 04:59 Last Infusion: 02/16/19 06:01 Dose: 0 mls/hr Documented by: [id number] Admin: 02/16/19 05:01 Dose: 100 mls/hr Documented by: [id number] Infusion: 02/16/19 04:45 Dose: 0 mls/hr Documented by: [id number] Admin: 02/16/19 03:45 Dose: 100 mls/hr Documented by: [id number] Ceftriaxone Sodium (Rocephin) 1,000 mg in 50 mls @ 100 mls/hr IV NOW STA Stop: 02/16/19 03:35 Last Infusion: 02/16/19 03:45 Dose: 0 mls/hr Documented by: [id number] Admin: 02/16/19 03:13 Dose: 100 mls/hr Documented by: [id number] Imaging Data Attestation: I personally reviewed and interpreted this imaging study as follows : ECG Data Attestation: I personally reviewed and interpreted this ECG as follows: Blood Pressure Blood Pressure Findings: Normal blood pressure Blood Pressure Disposition: further management by hospitalist Discharge Plan Visit Data *Final* Discharge Date/Time: 02/16/19 04:13 Chief Complaint: Shortness of Breath/Dyspnea Stated Complaint: SOB ED Provider: Dinesh Martínez Discharge Problem: Hypomagnesemia, Congestive heart failure, Generalized weakness, Acute UTI Patient Disposition: Admitted As Inpatient Discharge Instructions Interventions: ED Discharge Assessment Last Done: 02/16/19 04:13 Discharge Problem: Congestive heart failure Qualifiers: Heart failure type: combined systolic and diastolic Heart failure chronicity: acute on chronic Qualified Code(s): I50.43 - Acute on chronic combined systolic (congestive) and diastolic (congestive) heart failure The scribe's documentation has been prepared under my direction and personally reviewed by me in its entirety. I confirm that the note above accurately reflects all work, treatment, procedures, and medical decision making performed by me.
[2019-02-16] MEDS: FLUTICASONE/SALMETEROL (ADVAIR) 500/50 INH 14 PUFF INH SCH ×2 (08:58→21:56)
[2019-02-16] MEDS: ASPIRIN 81 MG ECTAB PO SCH (08:58)
[2019-02-16] MEDS: SPIRONOLACTONE 25 MG TAB PO SCH (08:58)
[2019-02-16] MEDS: ATORVASTATIN 40 MG TAB PO SCH (08:59)
[2019-02-16] MEDS: PANTOprazole 40 MG TAB PO SCH (08:59)
[2019-02-16] MEDS: GABAPENTIN 600 MG TAB PO SCH ×3 (08:59→21:55)
[2019-02-16] MEDS: HEPARIN SOD 5,000 UNIT/0.5 ML VIAL SQ SCH ×3 (08:59→21:56)
[2019-02-16] MEDS: METOPROLOL SUCC 50MG EXT REL TAB PO SCH ×2 (08:59→22:02)
[2019-02-16] MEDS: DULOXETINE HCL 60 MG CAP PO SCH (11:07)
--- NOTE | 2019-02-16 13:11 | Pharmacy Report ---
Pharmacy Glycemic Short Note 2 - Date of Service February 16, 2019 - Glycemic Short BSG Results (Last 24 hours): 02/16/19 02/16/19 02/16/19 01:45 01:45 05:23 Glucose 198 H Cancelled POC Glucose 198 H 02/16/19 02/16/19 02/16/19 05:39 07:19 11:21 Glucose 195 H POC Glucose 175 H 173 H OUTPATIENT ANTIDIABETIC REGIMEN: * Metformin 1gm BIDM ASSESSMENT: * Ms. Velasquez is a 59yo PMHx consistent w/ DM-II, CHF, CKD, GERD, among others. She is only maintained on metformin as an outpt. She p/w acute on chronic CHF. PLAN FOR INPATIENT GLYCEMIC CONTROL: * Hold outpatient oral diabetes medications * Basal insulin * Lantus scale HS * BSG <140mg/dL hold lantus * BSGs >/=140mg/dL give 12 units * Bolus insulin * NovoLog per scale ACHS or Q6hrs while NPO * Goal Range: Low 120 mg/dL - High 150 mg/dL * Correction Factor: 35 mg/dL/unit * Nutritional / Prandial insulin per carb ratio of 1 unit per 12 grams CHO consumed
[2019-02-16] MEDS ORDERED: ENOXAPARIN INJ 40 MG/0.4 ML SYR SQ ONE (15:29)
--- NOTE | 2019-02-16 15:29 | Cardiology Consultation ---
Date of Consultation February 16, 2019 Assessment & Plan (1) Acute on chronic diastolic CHF (congestive heart failure): (2) Hypertrophic cardiomyopathy: Continue furosemide 40 mg 2 times per day. Rather than waiting until 1800 to give her next dose, I am going to order a dose to be administered now, and will change her regimen to 40 mg twice a day at 7 AM at 1400 tomorrow. Monitor kidney function. I do not think repeat echo is necessary at this time as her past cardiac function has been well documented. Continue treatment for urinary tract infection, await culture results. Start subcutaneous Lovenox for DVT prophylaxis. History of Present Illness Attending Physician: Denise Sanchez, DO History of Present Illness Kalie Velasquez is a 59 year old female seen in cardiology consultation per the request of Dr Gonzalez for the evaluation of shortness of breath due to congestive heart failure. The patient is well-known to our cardiology service. 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 Bruno. She most recently been seen by Sheryl Cabrera PA-C of our practice last month. Over the last few months the patient has had difficulty with ongoing shortness of breath. This prompted cardiac catheterization which was performed in November 2018 with findings of moderate nonobstructive CAD and hemodynamics consistent with her known history of nonobstructive apical hypertrophic cardia myopathy. Her most recent cardiology visit her furosemide dose had been increased to 80 mg by mouth daily however she has had ongoing shortness of breath which is been worse for the last 3-5 days. She also notes generalized weakness. Her urine has had a foul smell. Allergies Allergy/AdvReac Type Severity Reaction Status Date / Time Sulfa (Sulfonamide Allergy Intermediate swelling Verified 02/16/19 01:52 Antibiotics) doxycycline Allergy Unknown UNKNOWN Verified 02/16/19 01:52 Penicillins Allergy Unknown Flushing, Verified 02/16/19 01:52 ITCHING adhesive AdvReac Intermediate blistering Verified 02/16/19 01:52 Home Medications Home Medications Medication Instructions Recorded Confirmed Type albuterol sulfate [Ventolin HFA] 2 puff INHALATION QID PRN 08/09/18 02/16/19 History atorvastatin [Lipitor] 40 mg PO QAM 08/09/18 02/16/19 History duloxetine 60 mg PO QDL 08/09/18 02/16/19 History folic acid 1 mg PO HS 08/09/18 02/16/19 History gabapentin [Neurontin] 600 mg PO TID 08/09/18 02/16/19 History mirtazapine 30 mg PO HS 08/09/18 02/16/19 History omeprazole 40 mg PO QAM 08/09/18 02/16/19 History ropinirole 0.5 mg PO HS 08/09/18 02/16/19 History sumatriptan succinate 50 mg PO DIRECTED PRN 08/09/18 02/16/19 History metformin 1,000 mg PO BIDM 08/12/18 02/16/19 History albuterol sulfate 3 ml INHALATION Q4H PRN 09/09/18 02/16/19 History fluticasone propion-salmeterol 1 puff INHALATION BID 09/09/18 02/16/19 History furosemide [Lasix] 40 mg PO 5XWK 11/28/18 02/16/19 History montelukast 10 mg PO PM 11/28/18 02/16/19 History spironolactone 12.5 mg PO DAILY 11/28/18 02/16/19 History furosemide 80 mg PO 2XWK 12/03/18 02/16/19 History metoprolol succinate 100 mg PO BID 12/03/18 02/16/19 History aspirin 81 mg PO DAILY 12/19/18 02/16/19 History diphenoxylate-atropine [Lomotil] 1 tab PO QID PRN 12/19/18 02/16/19 History ondansetron HCl [Zofran] 4 mg PO TID PRN 12/19/18 02/16/19 History Patient History Medical History CKD (chronic kidney disease), stage III (Chronic) GERD (gastroesophageal reflux disease) (Chronic) HLD (hyperlipidemia) (Chronic) Hypertension (Chronic) Anxiety (Chronic) Cardiac defibrillator in place (Chronic) 2014 CADENCE (obstructive sleep apnea) (Chronic) Hypertrophic cardiomyopathy (Chronic) CHF (congestive heart failure) Asthma (Chronic) COPD (chronic obstructive pulmonary disease) (Chronic) Fatty (change of) liver, not elsewhere classified (Chronic) Arthritis (Chronic) Diabetes mellitus, type 2 (Chronic) Pancreatic cyst (Chronic) Depression (Chronic) Hydronephrosis of right kidney (Chronic) Elevated troponin (Chronic) Restless leg syndrome (Chronic) Surgical History History of appendectomy (Resolved) 1970s H/O section (Resolved) 1979 & 1982 History of colostomy reversal (Resolved) bowel perf 2014 with colostomy reversed in 2015 H/O hernia repair (Resolved) 2016 Status post partial resection of colon (Chronic) "diverticulitis 11/05/14" History of colostomy reversal (Chronic) "04/19/15" Status post appendectomy (Chronic) Status post internal cardiac defibrillator procedure (Chronic) "2014" Family History Other Hypertrophic cardiomyopathy Stomach cancer Thyroid disorder Social History 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[employer] Required: No Beliefs That Will Affect Care: None marital status: Current Living Situation: Spouse Other Information That Helps Us Care for You: No Feels Safe at Home: Yes Safety Concerns: Feels Safe At This Time Smoking Status: Never smoker Hx Alcohol Use: No Hx Substance Use: No Review of Systems 10 point review of systems was reviewed and is negative with the exception that above Physical Exam Vital Signs (Past 24 Hours): Last Vital Signs Temp 37.1 C 02/16/19 12:12 Pulse 71 02/16/19 12:12 Resp 18 02/16/19 12:12 BP 114/73 02/16/19 12:12 Pulse Ox 97 02/16/19 12:12 Physical Exam: General: no acute distress and stated age Eyes: conjunctiva are pink and non-injected, sclera clear Neck: normal jugular venous pulse Chest: normal shape and normal respiratory effort Lungs: clear to auscultation and percussion Cardiac Exam: - regular heart sounds, no murmurs, rubs, or gallops, no jugular venous distention Abdomen: abdomen soft, non-tender, no abnormal masses and no hepatosplenomegaly Extremities: Trace lower extremity edema Neuro:awake, coversant, follows commands, no focal motor deficits Psych: appropriate affect and insight. Results & Data Laboratory Results Cardiac Enzymes 02/16/19 02/16/19 Range/Units 01:45 01:45 Troponin I 0.211 H* Cancelled (0-0.045) ng/ml Coagulation 02/16/19 Range/Units 01:45 PT 10.7 (9.0-12.0) Seconds CBC 02/16/19 02/16/19 Range/Units 01:45 05:39 WBC 11.38 H 11.26 H (4.8-10.8) K/uL RBC 4.07 L 4.07 L (4.2-5.4) M/uL Hgb 12.3 12.4 (12.0-16.0) g/dL Hct 36.7 L 36.7 L (37-47) % Plt Count 193 183 (130-400) K/uL Neut # (Auto) 9.08 H (1.4-6.5) K/uL Lymph # (Auto) 1.70 (1.2-3.4) K/uL [place]lin # (Auto) 0.47 (0.11-0.59) K/uL Eos # (Auto) 0.08 (0-0.5) K/uL Baso # (Auto) 0.02 (0-0.2) K/uL Comprehensive Metabolic Panel 02/16/19 02/16/19 02/16/19 Range/Units 01:45 01:45 05:39 Sodium 141 Cancelled 140 (136-145) mmol/L Potassium 3.9 Cancelled 3.6 (3.5-5.1) mmol/L Chloride 107 Cancelled 105 (98-107) mmol/L Carbon Dioxide 29 Cancelled 27 (21-32) mmol/L BUN 22 H Cancelled 21 H (7-18) mg/dl Creatinine 1.27 H Cancelled 1.17 (0.6-1.2) mg/dl Glucose 198 H Cancelled 195 H (70-99) mg/dl Calcium 8.4 L Cancelled 8.4 L (8.5-10.1) mg/dl Intake and Output 02/16/19 02/16/19 02/16/19 06:59 14:59 22:59 Intake Total 250 / 250 Output Total 600 / 600 550 / 550 Balance -350 / -350 -550 / -550 Intake: IV 250 / 250 MAGNESIUM SULFATE / D5W 1 gm In 200 / 200 100 ml @ 100 mls/hr IV Q1H [facility] Rx#:[id number] ROCEPHIN 1,000 mg In 50 ml @ 50 / 50 100 mls/hr IV NOW STA Rx#: [id number] Output: Urine 600 / 600 550 / 550 Other: Weight 73.8 kg Diagnostic Findings EKG performed on arrival yesterday 02/16/19 at 1:36 AM revealed normal sinus rhythm 85 bpm, left ventricular hypertrophy with repolarization abnormality noted consistent with her prior history.
[2019-02-16] MEDS ORDERED: FUROSEMIDE 40 MG in SYRINGE 0 ML IV SCH ×2 (15:30→18:00)
--- NOTE | 2019-02-16 19:38 | Hospitalist Progress Note ---
Date of Service February 16, 2019 Assessment & Plan (1) Acute on chronic diastolic CHF (congestive heart failure): Improved on IV Lasix. Cardiology is following. (2) UTI (urinary tract infection): Rocephin empirically pending urine culture results. Added Pyridium for dysuria today. (3) CKD (chronic kidney disease), stage III: Slight worsening creatinine in setting of twice daily Lasix dosing for >48 hrs. trend BMP in a.m. If creatinine is worse will hold Lasix. (4) GERD (gastroesophageal reflux disease): (5) Hypertension: (6) HLD (hyperlipidemia): (7) Anxiety: (8) Cardiac defibrillator in place: (9) Elevated troponin: (10) DVT prophylaxis: Lovenox Full code Disposition-likely to home in 1-2 days. Denise Sanchez DO [facility] Hospitalist Subjective Feels improved since yesterday. Physical Exam Vital Signs (Past 24 Hours): Last Vital Signs Temp 36.4 C L 02/16/19 15:48 Pulse 73 02/16/19 15:48 Resp 18 02/16/19 15:48 BP 137/78 02/16/19 15:48 Pulse Ox 90 02/16/19 15:48 CONSTITUTIONAL: obese, vitals as above, generally well-appearing EYES: normal conjuctivae, no scleral icterus ENT: MMM RESPIRATORY: clear to auscultation bilaterally, no crackles, rales or wheezes, normal respiratory effort, notably she is off the oxygen. CARDIOVASCULAR: regular rate and rhythm, S1 and 2 heard without murmurs, gallops or rubs, no JVD, no peripheral edema GASTROINTESTINAL: normal bowel sounds, soft, nontender, nondistended MUSCULOSKELETAL: strength 5/5 throughout, head is normocephalic and atraumatic SKIN: warm and dry NEUROLOGIC: CN 2-12 grossly intact, no gross focal deficits PSYCHIATRIC: alert cooperative and oriented to person, place and time. Results & Data Laboratory Results Short CBC 02/16/19 02/16/19 Range/Units 01:45 05:39 WBC 11.38 H 11.26 H (4.8-10.8) K/uL Hgb 12.3 12.4 (12.0-16.0) g/dL Hct 36.7 L 36.7 L (37-47) % Plt Count 193 183 (130-400) K/uL BMP 02/16/19 02/16/19 02/16/19 01:45 01:45 05:39 Sodium 141 Cancelled 140 Potassium 3.9 Cancelled 3.6 Chloride 107 Cancelled 105 Carbon Dioxide 29 Cancelled 27 BUN 22 H Cancelled 21 H Creatinine 1.27 H Cancelled 1.17 Glucose 198 H Cancelled 195 H Calcium 8.4 L Cancelled 8.4 L Cardiac Enzymes 02/16/19 02/16/19 Range/Units 01:45 01:45 Troponin I 0.211 H* Cancelled (0-0.045) ng/ml Urine 02/16/19 Range/Units 02:33 Urine Color Yellow Urine Appearance Cloudy H (Clear) Urine pH 5.5 (4.5-7.5) Ur Specific [place] 1.016 (1.000-1.030) Urine Protein Negative (Negative) Urine Glucose (UA) Negative (Negative) Medications Administered Current Inpatient Medications Acetaminophen (Tylenol) 650 mg PO Q4H PRN PRN Reason: Pain or Fever Stop: 03/18/19 04:31 Al Hydrox/Mg Hydrox/Simethicone (Maalox) 15 ml PO Q4H PRN PRN Reason: Dyspepsia Stop: 03/18/19 04:31 Albuterol (Ventolin 0.083% 2.5mg/3ml) 2.5 mg INH Q4H PRN PRN Reason: Wheezing Stop: 03/18/19 04:31 Aspirin (Ecotrin Ectab) 81 mg PO DAILY [facility] Stop: 03/18/19 08:59 Last Admin: 02/16/19 08:58 Dose: 81 mg Documented by: Atorvastatin Calcium (Lipitor) 40 mg PO QAM [facility] Stop: 03/18/19 08:59 Last Admin: 02/16/19 08:59 Dose: 40 mg Documented by: Dextrose (Dextrose 50%) 25 - 50 ml IV UD PRN; Protocol PRN Reason: Hypoglycemia Protocol Stop: 03/18/19 04:31 Diphenoxylate HCl/Atropine (Lomotil) 1 tab PO QID PRN PRN Reason: Diarrhea Stop: 03/18/19 04:31 Duloxetine HCl (Cymbalta) 60 mg PO QDL [facility] Stop: 03/18/19 11:29 Last Admin: 02/16/19 11:07 Dose: 60 mg Documented by: Folic Acid (Folvite) 1 mg PO HS [facility] Stop: 03/18/19 20:59 Gabapentin (Neurontin) 600 mg PO TID [facility] Stop: 03/18/19 08:59 Last Admin: 02/16/19 13:56 Dose: 600 mg Documented by: Glucagon (Glucagen) 1 mg SQ UD PRN; Protocol PRN Reason: Hypoglycemia Protocol Stop: 03/18/19 04:31 Glucose (Glucose 40%) 15 - 30 gm PO UD PRN; Protocol PRN Reason: Hypoglycemia Protocol Stop: 03/18/19 04:31 Glucose (Dex4 Glucose) 4 - 8 tabs PO UD PRN; Protocol PRN Reason: Hypoglycemia Protocol Stop: 03/18/19 04:31 Heparin Sodium (Porcine) (Heparin Sodium (Porcine)) 5,000 units SQ Q8 [facility] Stop: 03/18/19 08:59 Last Admin: 02/16/19 13:56 Dose: 5,000 units Documented by: Ceftriaxone Sodium 1,000 mg/ (Dextrose) 50 mls @ 100 mls/hr IV Q24H [facility]; Protocol Stop: 02/22/19 05:59 Furosemide 40 mg/ Syringe 4 mls @ 4 mls/min IV [id number] [facility] Stop: 03/19/19 06:59 Insulin Aspart (Novolog Flexpen) 0 units SC [facility]; Protocol Stop: 03/18/19 04:44 Last Admin: 02/16/19 16:47 Dose: 4 units Documented by: Insulin Glargine (Lantus Solostar Pen) 0 units SC [facility]; Protocol Stop: 03/18/19 20:59 Metoprolol Succinate (Toprol Xl) 100 mg PO BID [facility] Stop: 03/18/19 08:59 Last Admin: 02/16/19 08:59 Dose: 100 mg Documented by: Mirtazapine (Remeron) 30 mg PO HS [facility] Stop: 03/18/19 20:59 Miscellaneous (Carbohydrates For Hypoglycemia) 15 - 30 gm PO UD PRN PRN Reason: Hypoglycemia Treatment Stop: 03/18/19 04:31 Miscellaneous Information (Consult Glycemic Management Pharmacy) 1 ea N/A UD PRN; Protocol PRN Reason: Consult Stop: 03/18/19 04:46 Montelukast Sodium (Singulair) 10 mg PO PM [facility] Stop: 03/18/19 20:59 Nitroglycerin (Nitrostat) 0.4 mg SL UD PRN PRN Reason: Chest Pain Stop: 03/18/19 04:31 Ondansetron HCl (Zofran) 4 mg IV Q6H PRN PRN Reason: Nausea Stop: 03/18/19 04:31 Pantoprazole Sodium (Protonix) 40 mg PO QAM [facility] Stop: 03/18/19 08:59 Last Admin: 02/16/19 08:59 Dose: 40 mg Documented by: Polyethylene Glycol (Miralax Powder Packet) 17 gm PO DAILY PRN PRN Reason: Constipation Stop: 03/18/19 04:31 Ropinirole HCl (Requip) 0.5 mg PO HS [facility] Stop: 03/18/19 20:59 Fluticasone/Salmeterol (Advair Diskus 500/50) 1 puffs INH BID [facility] Stop: 03/18/19 08:59 Last Admin: 02/16/19 08:58 Dose: 1 puffs Documented by: Spironolactone (Aldactone) 12.5 mg PO DAILY [facility] Stop: 03/18/19 08:59 Last Admin: 02/16/19 08:58 Dose: 12.5 mg Documented by: Sumatriptan Succinate (Imitrex) 50 mg PO DAILY PRN PRN Reason: Headache Stop: 03/18/19 04:31
[2019-02-16] MEDS ORDERED: INSULIN GLARGINE SOLOSTAR 100 UNITS/ML 3 ML PEN SC SCH (21:00)
[2019-02-16] MEDS: FOLIC ACID 1 MG TAB PO SCH (21:56)
[2019-02-16] MEDS: ROPINIROLE HCL 0.25 MG TABLET PO SCH (21:58)
[2019-02-16] MEDS: MIRTAZAPINE TAB 15 MG TAB PO SCH (21:58)
[2019-02-16] MEDS: MONTELUKAST SODIUM 10 MG TABLET PO SCH (21:59)
[2019-02-17] MEDS: HEPARIN SOD 5,000 UNIT/0.5 ML VIAL SQ SCH ×3 (05:48→21:14)
[2019-02-17] MEDS: cefTRIAXone SODIUM 1,000 MG in DEXTROSE 5% 50 ML IV SCH (05:49)
--- NOTE | 2019-02-17 06:39 | Ultrasound Report ---
BILATERAL LOWER EXTREMITY VENOUS DOPPLER HISTORY: Acute pain and swelling of the bilateral lower legs bilat calf pain COMPARISON STUDY: Duplex venous Doppler study 09/12/2018. FINDINGS: There is normal compressibility, flow, and augmentation within the bilateral lower extremit y deep venous systems. IMPRESSION: No sonographic evidence of deep venous thrombosis within the right or left lower extremity. Electronically signed by: Vidal Jay M.D. 02/17/2019 6:37 AM
[2019-02-17] MEDS: FUROSEMIDE 40 MG in SYRINGE 0 ML IV SCH ×2 (07:04→14:47)
[2019-02-17 07:42] LABS: Hematocrit (blood only) 37.8 % (37-47); Hemoglobin 12.8 g/dL (12.0-16.0); Mean Corpuscular Hgb Conc 33.9 g/dL (32-36); Mean Platelet Volume 8.9 fL (7.4-10.4); Platelet Count 182 K/uL (130-400); RDW Coefficient of Variation 15.4 % (11.5-14.5); RDW Standard Deviation 50.7 fL (36.4-46.3); White Blood Count 8.96 K/uL (4.8-10.8)
[2019-02-17 08:03] LABS: BUN Creatinine Ratio 16.6 (10-20); Calcium 8.8 mg/dl (8.5-10.1); Creatinine Clr Calc Pharmacy 37.4 ml/min; Est GFR (African American) 48.1; Est GFR (Non-African American) 41.5; Magnesium 2.1 mg/dl (1.8-2.4)
[2019-02-17 08:14] LABS: Estimated Average Glucose 183 mg/dl
--- NOTE | 2019-02-17 08:26 | Pharmacy Report ---
Pharmacy Glycemic Short Note 2 - Date of Service February 17, 2019 - Glycemic Short BSG Results (Last 24 hours): 02/16/19 02/16/19 02/16/19 11:21 16:25 20:11 Glucose POC Glucose 173 H 148 H 225 H 02/17/19 02/17/19 07:05 07:29 Glucose 198 H POC Glucose 182 H OUTPATIENT ANTIDIABETIC REGIMEN: * Metformin 1gm BID * A1c = pending ASSESSMENT: 02/17/19 * Type 2 diabetic admitted with increased SOB and weakness, ADHF, UTI * Patient is managed w/ metformin monotherapy prior to admission. Last A1c available for review is from 08/2018, however control was adequate at that time. * A1c still pending this AM * Fasting BSG elevated this AM (FBS 182) with 12 units Lantus on board - will continue to titrate dose upwards * Post-prandial BSGs controlled 2 of 3 yesterday with current Novolog CF/CR. She may benefit from a small dose adjustment (increase) PLAN FOR INPATIENT GLYCEMIC CONTROL: * Hold outpatient oral diabetes medications (metformin) * Basal insulin (increase) * Lantus 10 units SQ BID * Bolus insulin (increase) * NovoLog per scale ACHS or Q6hrs while NPO * Goal Range: Low 110 mg/dL - High 140 mg/dL * Correction Factor: 30 mg/dL/unit * Nutritional / Prandial insulin per carb ratio of 1 unit per 10 grams CHO consumed
[2019-02-17] MEDS: FLUTICASONE/SALMETEROL (ADVAIR) 500/50 INH 14 PUFF INH SCH ×2 (08:56→21:10)
[2019-02-17] MEDS: METOPROLOL SUCC 50MG EXT REL TAB PO SCH ×2 (08:57→21:14)
[2019-02-17] MEDS: ATORVASTATIN 40 MG TAB PO SCH (08:57)
[2019-02-17] MEDS: GABAPENTIN 600 MG TAB PO SCH ×3 (08:57→21:11)
[2019-02-17] MEDS: PANTOprazole 40 MG TAB PO SCH (08:57)
[2019-02-17] MEDS: ASPIRIN 81 MG ECTAB PO SCH (08:57)
[2019-02-17] MEDS: SPIRONOLACTONE 25 MG TAB PO SCH (08:57)
[2019-02-17] MEDS: INSULIN GLARGINE SOLOSTAR 100 UNITS/ML 3 ML PEN SC SCH ×2 (08:58→21:10)
[2019-02-17] MEDS ORDERED: ENOXAPARIN INJ 40 MG/0.4 ML SYR SQ SCH (09:00)
[2019-02-17] MEDS: INSULIN ASPART 100 UNITS/ML 3 ML PEN SC SCH ×5 (09:01→21:12)
[2019-02-17] MEDS: DULOXETINE HCL 60 MG CAP PO SCH (12:14)
[2019-02-17] MEDS: PHENAZOPYRIDINE HCL 200 MG TAB PO SCH ×2 (16:08→21:11)
--- NOTE | 2019-02-17 16:42 | Cardiology Progress Note ---
Date of Service February 17, 2019 Assessment & Plan (1) Acute on chronic diastolic CHF (congestive heart failure): (2) Hypertrophic cardiomyopathy: Continue furosemide 40 mg IV twice daily Continue metoprolol. (3) Acute UTI: Continue IV Rocephin, pending further identification of culture. Continue subcutaneous heparin for DVT prophylaxis. Subjective Chief complaint: Follow-up dysuria, shortness of breath Subjective: Patient states she is feeling improved from a dysuria standpoint as well as an edema standpoint. Breathing is improved. She lost her IV access in her right antecubital fossa an additional IV was placed in the left arm. Telemetry reveals AV sequential pacing without arrhythmia. 2.1 L of urine output were noted as of 7 AM this morning with additional urine output since on furosemide 40 mg IV 2 times per day. Physical Exam Vital Signs (Past 24 Hours): Last Vital Signs Temp 36.9 C 02/17/19 15:06 Pulse 73 02/17/19 15:06 Resp 18 02/17/19 15:06 BP 110/70 02/17/19 15:06 Pulse Ox 96 02/17/19 15:06 Physical Exam: General: no acute distress and stated age Eyes: conjunctiva are pink and non-injected, sclera clear Neck: normal jugular venous pulse, no hepatojugular reflux Chest: normal shape and normal respiratory effort Lungs: clear to auscultation and percussion Cardiac Exam: - regular heart sounds, no murmurs, rubs, or gallops, no jugular venous distention Abdomen: abdomen soft, non-tender Extremities: no edema (much improved) and no cyanosis Neuro:awake, coversant, follows commands, no focal motor deficits Psych: appropriate affect and insight. Results & Data Laboratory Results Urinalysis has yielded gram-negative bacilli, further identification pending.
[2019-02-17] MEDS: FOLIC ACID 1 MG TAB PO SCH (21:10)
[2019-02-17] MEDS: MIRTAZAPINE TAB 15 MG TAB PO SCH (21:12)
[2019-02-17] MEDS: ROPINIROLE HCL 0.25 MG TABLET PO SCH (21:13)
[2019-02-17] MEDS: MONTELUKAST SODIUM 10 MG TABLET PO SCH (21:13)
--- NOTE | 2019-02-17 23:12 | Hospitalist Progress Note ---
Date of Service February 17, 2019 Assessment & Plan (1) Hypertrophic cardiomyopathy: Elevated troponin likely secondary to demand ischemia in the setting (2) Acute on chronic diastolic CHF (congestive heart failure): Improved on IV Lasix. Cardiology is following. (3) UTI (urinary tract infection): Rocephin empirically pending urine culture results. Added Pyridium for dysuria today. (4) CKD (chronic kidney disease), stage III: Slight worsening creatinine in setting of twice daily Lasix dosing for >48 hrs. trend BMP in a.m. If creatinine is worse will hold Lasix. (5) DMII (diabetes mellitus, type 2): At goal using glargine 10 twice daily and insulin sliding scale with carb coverage. (6) COPD (chronic obstructive pulmonary disease): Uses home oxygen continuously (7) DVT prophylaxis: Lovenox Full code Disposition-likely to home in 1-2 days. Denise Sanchez DO [facility] Hospitalist Subjective Still feels some generalized malaise. Reports some discomfort with urination. Reports upper thigh/groin pain bilaterally that has been present since prior to arrival. Had ultrasounds of the legs bilaterally which was negative for DVT overnight. She feels she is losing some weight with the diuresis. She is off oxygen today and ambulating around the room without difficulty. Physical Exam Vital Signs (Past 24 Hours): Last Vital Signs Temp 36.7 C 02/17/19 19:01 Pulse 94 H 02/17/19 20:56 Resp 16 02/17/19 19:01 BP 103/62 02/17/19 19:01 Pulse Ox 93 02/17/19 19:01 CONSTITUTIONAL: obese, vitals as above, generally well-appearing EYES: normal conjuctivae, no scleral icterus ENT: MMM RESPIRATORY: clear to auscultation bilaterally, no crackles, rales or wheezes, normal respiratory effort CARDIOVASCULAR: regular rate and rhythm, S1 and 2 heard without murmurs, gallops or rubs, no JVD, no peripheral edema GASTROINTESTINAL: normal bowel sounds, soft, nontender, no hepatomegaly, no guarding MUSCULOSKELETAL: strength 5/5 throughout, head is normocephalic and atraumatic, no gross focal deficits SKIN: warm and dry NEUROLOGIC: CN 2-12 grossly intact, no gross focal deficits PSYCHIATRIC: alert cooperative and oriented to person, place and time. Results & Data Laboratory Results Short CBC 02/17/19 Range/Units 07:29 WBC 8.96 (4.8-10.8) K/uL Hgb 12.8 (12.0-16.0) g/dL Hct 37.8 (37-47) % Plt Count 182 (130-400) K/uL BMP 02/17/19 07:29 Sodium 142 Potassium 4.0 Chloride 104 Carbon Dioxide 29 BUN 23 H Creatinine 1.37 H Glucose 198 H Calcium 8.8 Medications Administered Current Inpatient Medications Acetaminophen (Tylenol) 650 mg PO Q4H PRN PRN Reason: Pain or Fever Stop: 03/18/19 04:31 Al Hydrox/Mg Hydrox/Simethicone (Maalox) 15 ml PO Q4H PRN PRN Reason: Dyspepsia Stop: 03/18/19 04:31 Albuterol (Ventolin 0.083% 2.5mg/3ml) 2.5 mg INH Q4H PRN PRN Reason: Wheezing Stop: 03/18/19 04:31 Aspirin (Ecotrin Ectab) 81 mg PO DAILY [facility] Stop: 03/18/19 08:59 Last Admin: 02/17/19 08:57 Dose: 81 mg Documented by: Atorvastatin Calcium (Lipitor) 40 mg PO QAM [facility] Stop: 03/18/19 08:59 Last Admin: 02/17/19 08:57 Dose: 40 mg Documented by: Dextrose (Dextrose 50%) 25 - 50 ml IV UD PRN; Protocol PRN Reason: Hypoglycemia Protocol Stop: 03/18/19 04:31 Diphenoxylate HCl/Atropine (Lomotil) 1 tab PO QID PRN PRN Reason: Diarrhea Stop: 03/18/19 04:31 Duloxetine HCl (Cymbalta) 60 mg PO QDL [facility] Stop: 03/18/19 11:29 Last Admin: 02/17/19 12:14 Dose: 60 mg Documented by: Folic Acid (Folvite) 1 mg PO HS [facility] Stop: 03/18/19 20:59 Last Admin: 02/17/19 21:10 Dose: 1 mg Documented by: Gabapentin (Neurontin) 600 mg PO TID [facility] Stop: 03/18/19 08:59 Last Admin: 02/17/19 21:11 Dose: 600 mg Documented by: Glucagon (Glucagen) 1 mg SQ UD PRN; Protocol PRN Reason: Hypoglycemia Protocol Stop: 03/18/19 04:31 Glucose (Glucose 40%) 15 - 30 gm PO UD PRN; Protocol PRN Reason: Hypoglycemia Protocol Stop: 03/18/19 04:31 Glucose (Dex4 Glucose) 4 - 8 tabs PO UD PRN; Protocol PRN Reason: Hypoglycemia Protocol Stop: 03/18/19 04:31 Heparin Sodium (Porcine) (Heparin Sodium (Porcine)) 5,000 units SQ Q8 [facility] Stop: 03/18/19 08:59 Last Admin: 02/17/19 21:14 Dose: 5,000 units Documented by: Ceftriaxone Sodium 1,000 mg/ (Dextrose) 50 mls @ 100 mls/hr IV Q24H [facility]; Protocol Stop: 02/22/19 05:59 Last Infusion: 02/17/19 07:07 Dose: Infused Documented by: Furosemide 40 mg/ Syringe 4 mls @ 4 mls/min IV [id number] [facility] Stop: 03/19/19 06:59 Last Admin: 02/17/19 14:47 Dose: 4 mls/min Documented by: Insulin Aspart (Novolog Flexpen) 0 units SC ACHS [facility]; Protocol Stop: 03/18/19 04:44 Last Admin: 02/17/19 21:12 Dose: 5 units Documented by: Insulin Glargine (Lantus Solostar Pen) 10 units SC BID [facility]; Protocol Stop: 03/19/19 08:59 Last Admin: 02/17/19 21:10 Dose: 10 units Documented by: Metoprolol Succinate (Toprol Xl) 100 mg PO BID [facility] Stop: 03/18/19 08:59 Last Admin: 02/17/19 21:14 Dose: 100 mg Documented by: Mirtazapine (Remeron) 30 mg PO HS [facility] Stop: 03/18/19 20:59 Last Admin: 02/17/19 21:12 Dose: 30 mg Documented by: Miscellaneous (Carbohydrates For Hypoglycemia) 15 - 30 gm PO UD PRN PRN Reason: Hypoglycemia Treatment Stop: 03/18/19 04:31 Miscellaneous Information (Consult Glycemic Management Pharmacy) 1 ea N/A UD PRN; Protocol PRN Reason: Consult Stop: 03/18/19 04:46 Montelukast Sodium (Singulair) 10 mg PO PM [facility] Stop: 03/18/19 20:59 Last Admin: 02/17/19 21:13 Dose: 10 mg Documented by: Nitroglycerin (Nitrostat) 0.4 mg SL UD PRN PRN Reason: Chest Pain Stop: 03/18/19 04:31 Ondansetron HCl (Zofran) 4 mg IV Q6H PRN PRN Reason: Nausea Stop: 03/18/19 04:31 Pantoprazole Sodium (Protonix) 40 mg PO QAM [facility] Stop: 03/18/19 08:59 Last Admin: 02/17/19 08:57 Dose: 40 mg Documented by: Phenazopyridine HCl (Pyridium) 200 mg PO TID [facility] Stop: 02/19/19 13:59 Last Admin: 02/17/19 21:11 Dose: 200 mg Documented by: Polyethylene Glycol (Miralax Powder Packet) 17 gm PO DAILY PRN PRN Reason: Constipation Stop: 03/18/19 04:31 Ropinirole HCl (Requip) 0.5 mg PO HS [facility] Stop: 03/18/19 20:59 Last Admin: 02/17/19 21:13 Dose: 0.5 mg Documented by: Fluticasone/Salmeterol (Advair Diskus 500/50) 1 puffs INH BID [facility] Stop: 03/18/19 08:59 Last Admin: 02/17/19 21:10 Dose: 1 puffs Documented by: Spironolactone (Aldactone) 12.5 mg PO DAILY [facility] Stop: 03/18/19 08:59 Last Admin: 02/17/19 08:57 Dose: 12.5 mg Documented by: Sumatriptan Succinate (Imitrex) 50 mg PO DAILY PRN PRN Reason: Headache Stop: 03/18/19 04:31
[2019-02-18] MEDS: ACETAMINOPHEN 325 MG TAB PO PRN ×2 (03:43→14:49)
[2019-02-18] MEDS: cefTRIAXone SODIUM 1,000 MG in DEXTROSE 5% 50 ML IV SCH (05:16)
[2019-02-18 06:02] LABS: Hematocrit (blood only) 36.2 % (37-47); Mean Corpuscular Hgb Conc 33.1 g/dL (32-36); Mean Corpuscular Volume 91.4 fL (80-100); Mean Platelet Volume 10.7 fL (7.4-10.4); Platelet Count 197 K/uL (130-400); RDW Coefficient of Variation 15.4 % (11.5-14.5); RDW Standard Deviation 51.5 fL (36.4-46.3); Red Blood Count 3.96 M/uL (4.2-5.4); White Blood Count 9.26 K/uL (4.8-10.8)
[2019-02-18 06:49] LABS: BUN Creatinine Ratio 19.4 (10-20); Calcium 9.1 mg/dl (8.5-10.1); Creatinine Clr Calc Pharmacy 34.6 ml/min; Est GFR (African American) 43.5; Est GFR (Non-African American) 37.5
[2019-02-18 08:02] LABS: Potassium 4.2 mmol/L (3.5-5.1)
[2019-02-18 08:03] LABS: Magnesium 2.3 mg/dl (1.8-2.4)
[2019-02-18] MEDS: PHENAZOPYRIDINE HCL 200 MG TAB PO SCH ×3 (09:06→21:02)
[2019-02-18] MEDS: GABAPENTIN 600 MG TAB PO SCH ×3 (09:06→21:01)
[2019-02-18] MEDS: ASPIRIN 81 MG ECTAB PO SCH (09:06)
[2019-02-18] MEDS: FLUTICASONE/SALMETEROL (ADVAIR) 500/50 INH 14 PUFF INH SCH ×2 (09:06→20:59)
[2019-02-18] MEDS: SPIRONOLACTONE 25 MG TAB PO SCH (09:07)
[2019-02-18] MEDS: ENOXAPARIN INJ 40 MG/0.4 ML SYR SQ SCH (09:07)
[2019-02-18] MEDS: ATORVASTATIN 40 MG TAB PO SCH (09:08)
[2019-02-18] MEDS: PANTOprazole 40 MG TAB PO SCH (09:09)
[2019-02-18] MEDS: INSULIN GLARGINE SOLOSTAR 100 UNITS/ML 3 ML PEN SC SCH ×2 (09:11→21:00)
[2019-02-18] MEDS: INSULIN ASPART 100 UNITS/ML 3 ML PEN SC SCH ×4 (09:13→20:59)
[2019-02-18] MEDS: METOPROLOL SUCC 50MG EXT REL TAB PO SCH ×2 (09:51→21:01)
[2019-02-18] MEDS: CIPROFLOXACIN 500 MG TAB PO SCH ×2 (11:53→21:02)
[2019-02-18] MEDS: DULOXETINE HCL 60 MG CAP PO SCH (11:54)
--- NOTE | 2019-02-18 11:54 | Pharmacy Report ---
Pharmacy Glycemic Short Note 2 - Date of Service February 18, 2019 - Glycemic Short BSG Results (Last 24 hours): 02/17/19 02/17/19 02/18/19 16:13 20:20 05:29 Glucose 208 H POC Glucose 313 H 285 H 02/18/19 02/18/19 07:24 11:05 Glucose POC Glucose 180 H 236 H OUTPATIENT ANTIDIABETIC REGIMEN: * Metformin 1gm BID * A1c = 8.0% The patient is currently receiving: * Basal insulin: Lantus 10 units every 12 hours * Correctional Insulin: Novolog Correction per scale ACHS Goal Range: Low 110 mg/dL - High 140 mg/dL Correction Factor: 30 mg/dL/unit * Prandial insulin: Per carb ratio of 1 unit per 9 grams CHO consumed ASSESSMENT: 02/18 * BSGs did climb yesterday following meals. Post-prandial hyperglycemia observed despite increases in CR dose yesterday. Will continue to increase today * Fasting BSG elevated this AM and is relatively unchanged today vs yesterday despite having a larger dose of basal insulin on board. FBS 180 this AM with 20 units of Lantus on board. Will continue to titrate basal dose upward * A1c results now available and indicate decline in control over the course of 5 months (A1c 5.7 -->8.0) 02/17 * Type 2 diabetic admitted with increased SOB and weakness, ADHF, UTI * Patient is managed w/ metformin monotherapy prior to admission. Last A1c available for review is from 08/2018, however control was adequate at that time. * A1c still pending this AM * Fasting BSG elevated this AM (FBS 182) with 12 units Lantus on board - will continue to titrate dose upwards * Post-prandial BSGs controlled 2 of 3 yesterday with current Novolog CF/CR. She may benefit from a small dose adjustment (increase) PLAN FOR INPATIENT GLYCEMIC CONTROL: * Hold outpatient oral diabetes medications (metformin) * Basal insulin (increase) * Lantus 14 units SQ BID * Bolus insulin (increase) * NovoLog per scale ACHS or Q6hrs while NPO * Goal Range: Low 110 mg/dL - High 140 mg/dL * Correction Factor: 20 mg/dL/unit * Nutritional / Prandial insulin per carb ratio of 1 unit per 7 grams CHO consumed Discharge plan: A1c results now available and indicate decline in control over the course of 5 months (A1c 5.7 -->8.0). Her renal fxn continues to worsen. Resumption of metformin on discharge will ultimately depend upon renal fxn. She may need addition of basal insulin on discharge with metformin if appropriate.
--- NOTE | 2019-02-18 13:10 | Cardiology Progress Note ---
Date of Service February 18, 2019 Assessment & Plan (1) Acute on chronic diastolic CHF (congestive heart failure): (2) Hypertrophic cardiomyopathy: Baseline creatinine in the range of 1-1.1, had been 1.37 and then increased to 1.49. Diuretics therefore held today. (3) UTI (urinary tract infection): Continue antibiotics. Repeat basic metabolic panel tomorrow. Subjective Chief complaint: Follow-up shortness of breath, dysuria Subjective: Patient notes feeling improved. Telemetry reveals stable sinus rhythm. Physical Exam Vital Signs (Past 24 Hours): Last Vital Signs Temp 36.4 C L 02/18/19 11:07 Pulse 77 02/18/19 11:07 Resp 20 02/18/19 11:07 BP 130/77 02/18/19 11:07 Pulse Ox 98 02/18/19 11:07 Physical Exam: General: no acute distress and stated age Eyes: conjunctiva are pink and non-injected, sclera clear Neck: normal jugular venous pulse, no hepatojugular reflux Chest: normal shape and normal respiratory effort Lungs: clear to auscultation and percussion Cardiac Exam: - regular heart sounds, no murmurs, rubs, or gallops, no jugular venous distention Abdomen: abdomen soft, non-tender, no abnormal masses and no hepatosplenomegaly Extremities: no edema and no cyanosis, IV has now been relocated to the dorsal aspect of her left hand which she is tolerating well Neuro:awake, coversant, follows commands, no focal motor deficits Psych: appropriate affect and insight. Results & Data Laboratory Results CBC 02/18/19 Range/Units 05:29 WBC 9.26 (4.8-10.8) K/uL RBC 3.96 L (4.2-5.4) M/uL Hgb 12.0 (12.0-16.0) g/dL Hct 36.2 L (37-47) % Plt Count 197 (130-400) K/uL Comprehensive Metabolic Panel 02/18/19 02/18/19 02/18/19 Range/Units 05:29 07:00 07:32 Sodium 141 (136-145) mmol/L Potassium Cancelled 4.2 (3.5-5.1) mmol/L Chloride 104 (98-107) mmol/L Carbon Dioxide 32 (21-32) mmol/L BUN 29 H (7-18) mg/dl Creatinine 1.49 H (0.6-1.2) mg/dl Glucose 208 H (70-99) mg/dl Calcium 9.1 (8.5-10.1) mg/dl Intake and Output 02/17/19 02/18/19 02/18/19 22:59 06:59 14:59 Intake Total 640 / 940 50 / 940 Output Total 700 / 0 550 / 2050 Balance -60 / -1110 -500 / -1110 Intake: IV 50 / 100 Rocephin 1,000 mg In D5w 50 ml 50 / 100 @ 100 mls/hr IV Q24H [facility] Rx#: [id number] Oral 640 / 840 Output: Urine 700 / 0 550 / 2050 Other: Weight 73.4 kg
--- NOTE | 2019-02-18 14:04 | Hospitalist Progress Note ---
Date of Service February 18, 2019 Assessment & Plan (1) Acute worsening of stage 3 chronic kidney disease: Overdiuressed with Lasix which is on hold. TRend BMP, fluid restriction was lifted. (2) Acute on chronic diastolic CHF (congestive heart failure): Improved on IV Lasix-currently held in setting of OSBALDO. Cardiology is following. (3) UTI (urinary tract infection): Rocephin empirically pending urine culture results. Pyridium added yesterday with improvement. Still has some generalized malaise but also appears to have a severe headache. (4) Anxiety: stable, cont cymbalta (5) Hypertrophic cardiomyopathy: (6) Cardiac defibrillator in place: (7) DVT prophylaxis: Lovenox Full code Disposition-likely to home in am. Denise Sanchez DO [facility] Hospitalist Subjective has a headache similar to her migraines. Denies chest pain but reports malaise UTI symptoms some improved on pyridium. Physical Exam Vital Signs (Past 24 Hours): Last Vital Signs Temp 36.4 C L 02/18/19 11:07 Pulse 77 02/18/19 11:07 Resp 20 02/18/19 11:07 BP 130/77 02/18/19 11:07 Pulse Ox 98 02/18/19 11:07 CONSTITUTIONAL: obese, vitals as above, generally appears to be suffering from a severe headache, lying supine in bed, holding her head, squinting eyes against the light EYES: normal conjuctivae, no scleral icterus ENT: MMM RESPIRATORY: clear to auscultation bilaterally, no crackles, rales or wheezes, normal respiratory effort, notably she is off the oxygen. CARDIOVASCULAR: regular rate and rhythm, S1 and 2 heard without murmurs, gallops or rubs, no JVD, no peripheral edema GASTROINTESTINAL: normal bowel sounds, soft, nontender, nondistended MUSCULOSKELETAL: strength 5/5 throughout, head is normocephalic and atraumatic SKIN: warm and dry NEUROLOGIC: CN 2-12 grossly intact, no gross focal deficits PSYCHIATRIC: alert cooperative and oriented to person, place and time. Results & Data Laboratory Results Short CBC 02/18/19 Range/Units 05:29 WBC 9.26 (4.8-10.8) K/uL Hgb 12.0 (12.0-16.0) g/dL Hct 36.2 L (37-47) % Plt Count 197 (130-400) K/uL BMP 02/18/19 02/18/19 02/18/19 05:29 07:00 07:32 Sodium 141 Potassium Cancelled 4.2 Chloride 104 Carbon Dioxide 32 BUN 29 H Creatinine 1.49 H Glucose 208 H Calcium 9.1 Medications Administered Current Inpatient Medications Acetaminophen (Tylenol) 650 mg PO Q4H PRN PRN Reason: Pain or Fever Stop: 03/18/19 04:31 Last Admin: 02/18/19 03:43 Dose: 650 mg Documented by: Al Hydrox/Mg Hydrox/Simethicone (Maalox) 15 ml PO Q4H PRN PRN Reason: Dyspepsia Stop: 03/18/19 04:31 Albuterol (Ventolin 0.083% 2.5mg/3ml) 2.5 mg INH Q4H PRN PRN Reason: Wheezing Stop: 03/18/19 04:31 Aspirin (Ecotrin Ectab) 81 mg PO DAILY [facility] Stop: 03/18/19 08:59 Last Admin: 02/18/19 09:06 Dose: 81 mg Documented by: Atorvastatin Calcium (Lipitor) 40 mg PO QAM [facility] Stop: 03/18/19 08:59 Last Admin: 02/18/19 09:08 Dose: 40 mg Documented by: Ciprofloxacin (Cipro) 500 mg PO BID [facility]; Protocol Stop: 02/23/19 10:29 Last Admin: 02/18/19 11:53 Dose: 500 mg Documented by: Dextrose (Dextrose 50%) 25 - 50 ml IV UD PRN; Protocol PRN Reason: Hypoglycemia Protocol Stop: 03/18/19 04:31 Diphenoxylate HCl/Atropine (Lomotil) 1 tab PO QID PRN PRN Reason: Diarrhea Stop: 03/18/19 04:31 Duloxetine HCl (Cymbalta) 60 mg PO QDL [facility] Stop: 03/18/19 11:29 Last Admin: 02/18/19 11:54 Dose: 60 mg Documented by: Enoxaparin Sodium (Lovenox) 40 mg SQ QAM [facility] Stop: 03/20/19 08:59 Last Admin: 02/18/19 09:07 Dose: 40 mg Documented by: Folic Acid (Folvite) 1 mg PO HS [facility] Stop: 03/18/19 20:59 Last Admin: 02/17/19 21:10 Dose: 1 mg Documented by: Gabapentin (Neurontin) 600 mg PO TID MARILEE Stop: 03/18/19 08:59 Last Admin: 02/18/19 13:18 Dose: 600 mg Documented by: Glucagon (Glucagen) 1 mg SQ UD PRN; Protocol PRN Reason: Hypoglycemia Protocol Stop: 03/18/19 04:31 Glucose (Glucose 40%) 15 - 30 gm PO UD PRN; Protocol PRN Reason: Hypoglycemia Protocol Stop: 03/18/19 04:31 Glucose (Dex4 Glucose) 4 - 8 tabs PO UD PRN; Protocol PRN Reason: Hypoglycemia Protocol Stop: 03/18/19 04:31 Furosemide 40 mg/ Syringe 4 mls @ 4 mls/min IV [id number] [facility] Stop: 03/19/19 06:59 Last Admin: 02/17/19 14:47 Dose: 4 mls/min Documented by: Insulin Aspart (Novolog Flexpen) 0 units SC ACHS [facility]; Protocol Stop: 03/18/19 04:44 Last Admin: 02/18/19 11:54 Dose: 11 units Documented by: Insulin Glargine (Lantus Solostar Pen) 14 units SC BID [facility]; Protocol Stop: 03/20/19 08:59 Last Admin: 02/18/19 09:11 Dose: 14 units Documented by: Metoprolol Succinate (Toprol Xl) 100 mg PO BID [facility] Stop: 03/18/19 08:59 Last Admin: 02/18/19 09:51 Dose: 100 mg Documented by: Mirtazapine (Remeron) 30 mg PO HS [facility] Stop: 03/18/19 20:59 Last Admin: 02/17/19 21:12 Dose: 30 mg Documented by: Miscellaneous (Carbohydrates For Hypoglycemia) 15 - 30 gm PO UD PRN PRN Reason: Hypoglycemia Treatment Stop: 03/18/19 04:31 Miscellaneous Information (Consult Glycemic Management Pharmacy) 1 ea N/A UD PRN; Protocol PRN Reason: Consult Stop: 03/18/19 04:46 Montelukast Sodium (Singulair) 10 mg PO PM [facility] Stop: 03/18/19 20:59 Last Admin: 02/17/19 21:13 Dose: 10 mg Documented by: Nitroglycerin (Nitrostat) 0.4 mg SL UD PRN PRN Reason: Chest Pain Stop: 03/18/19 04:31 Ondansetron HCl (Zofran) 4 mg IV Q6H PRN PRN Reason: Nausea Stop: 03/18/19 04:31 Pantoprazole Sodium (Protonix) 40 mg PO QAM [facility] Stop: 03/18/19 08:59 Last Admin: 02/18/19 09:09 Dose: 40 mg Documented by: Phenazopyridine HCl (Pyridium) 200 mg PO TID [facility] Stop: 02/19/19 13:59 Last Admin: 02/18/19 13:18 Dose: 200 mg Documented by: Polyethylene Glycol (Miralax Powder Packet) 17 gm PO DAILY PRN PRN Reason: Constipation Stop: 03/18/19 04:31 Ropinirole HCl (Requip) 0.5 mg PO HS [facility] Stop: 03/18/19 20:59 Last Admin: 02/17/19 21:13 Dose: 0.5 mg Documented by: Fluticasone/Salmeterol (Advair Diskus 500/50) 1 puffs INH BID [facility] Stop: 03/18/19 08:59 Last Admin: 02/18/19 09:06 Dose: 1 puffs Documented by: Spironolactone (Aldactone) 12.5 mg PO DAILY [facility] Stop: 03/18/19 08:59 Last Admin: 02/18/19 09:07 Dose: 12.5 mg Documented by: Sumatriptan Succinate (Imitrex) 50 mg PO DAILY PRN PRN Reason: Headache Stop: 03/18/19 04:31
[2019-02-18] MEDS ORDERED: BUTALBITAL/ACETAMIN/CAFFEINE TAB PO ONE (18:00)
[2019-02-18] MEDS: ROPINIROLE HCL 0.25 MG TABLET PO SCH (21:01)
[2019-02-18] MEDS: MIRTAZAPINE TAB 15 MG TAB PO SCH (21:02)
[2019-02-18] MEDS: MONTELUKAST SODIUM 10 MG TABLET PO SCH (21:02)
[2019-02-18] MEDS: FOLIC ACID 1 MG TAB PO SCH (21:03)
[2019-02-19 06:23] LABS: Hemoglobin 11.8 g/dL (12.0-16.0); Mean Corpuscular Hgb Conc 32.8 g/dL (32-36); Mean Corpuscular Volume 92.1 fL (80-100); Mean Platelet Volume 9.4 fL (7.4-10.4); Platelet Count 210 K/uL (130-400); RDW Coefficient of Variation 15.5 % (11.5-14.5); RDW Standard Deviation 51.4 fL (36.4-46.3); Red Blood Count 3.91 M/uL (4.2-5.4); White Blood Count 8.46 K/uL (4.8-10.8)
[2019-02-19 07:00] LABS: BUN Creatinine Ratio 19.5 (10-20); Calcium 8.7 mg/dl (8.5-10.1); Creatinine Clr Calc Pharmacy 42.6 ml/min; Est GFR (African American) 55.9; Est GFR (Non-African American) 48.3; Potassium 4.1 mmol/L (3.5-5.1)
[2019-02-19] MEDS: ASPIRIN 81 MG ECTAB PO SCH (07:46)
[2019-02-19] MEDS: SPIRONOLACTONE 25 MG TAB PO SCH (07:46)
[2019-02-19] MEDS: PANTOprazole 40 MG TAB PO SCH (07:46)
[2019-02-19] MEDS: PHENAZOPYRIDINE HCL 200 MG TAB PO SCH (07:46)
[2019-02-19] MEDS: CIPROFLOXACIN 500 MG TAB PO SCH (07:46)
[2019-02-19] MEDS: ATORVASTATIN 40 MG TAB PO SCH (07:47)
[2019-02-19] MEDS: GABAPENTIN 600 MG TAB PO SCH ×2 (07:47→13:51)
[2019-02-19] MEDS: FLUTICASONE/SALMETEROL (ADVAIR) 500/50 INH 14 PUFF INH SCH (07:48)
[2019-02-19] MEDS: ENOXAPARIN INJ 40 MG/0.4 ML SYR SQ SCH (07:48)
[2019-02-19] MEDS: INSULIN GLARGINE SOLOSTAR 100 UNITS/ML 3 ML PEN SC SCH (07:49)
[2019-02-19] MEDS: METOPROLOL SUCC 50MG EXT REL TAB PO SCH (07:49)
[2019-02-19] MEDS: INSULIN ASPART 100 UNITS/ML 3 ML PEN SC SCH ×2 (07:50→13:10)
--- NOTE | 2019-02-19 08:20 | Pharmacy Report ---
Pharmacy Glycemic Short Note 2 - Date of Service February 19, 2019 - Glycemic Short BSG Results (Last 24 hours): 02/18/19 02/18/19 02/18/19 11:05 16:08 20:31 Glucose POC Glucose 236 H 198 H 315 H 02/19/19 02/19/19 05:42 07:29 Glucose 154 H POC Glucose 148 H OUTPATIENT ANTIDIABETIC REGIMEN: * Metformin 1gm BID * A1c = 8.0% The patient is currently receiving: * Basal insulin: Lantus 14 units every 12 hours * Correctional Insulin: Novolog Correction per scale ACHS Goal Range: Low 110 mg/dL - High 140 mg/dL Correction Factor: 20 mg/dL/unit * Prandial insulin: Per carb ratio of 1 unit per 7 grams CHO consumed ASSESSMENT: 02/19 * Over the last 24 hrs, 71 units of insulin was administered * Fasting BSG improved today following increase in basal yesterday. FBS 148 with 28 units Lantus on board. This FBS may continue to improve with repeat dosing as we have not yet achieved steady-state. Basal/Pranial insulin doses were close to 50/50 split yesterday. * Post-prandial BSG's elevated again yesterday despite increased prandial insulin doses. Will continue to up-titrate Novolog doses today 02/18 * BSGs did climb yesterday following meals. Post-prandial hyperglycemia observed despite increases in CR dose yesterday. Will continue to increase today * Fasting BSG elevated this AM and is relatively unchanged today vs yesterday despite having a larger dose of basal insulin on board. FBS 180 this AM with 20 units of Lantus on board. Will continue to titrate basal dose upward * A1c results now available and indicate decline in control over the course of 5 months (A1c 5.7 -->8.0) 02/17 * Type 2 diabetic admitted with increased SOB and weakness, ADHF, UTI * Patient is managed w/ metformin monotherapy prior to admission. Last A1c available for review is from 08/2018, however control was adequate at that time. * A1c still pending this AM * Fasting BSG elevated this AM (FBS 182) with 12 units Lantus on board - will continue to titrate dose upwards * Post-prandial BSGs controlled 2 of 3 yesterday with current Novolog CF/CR. She may benefit from a small dose adjustment (increase) PLAN FOR INPATIENT GLYCEMIC CONTROL: * Hold outpatient oral diabetes medications (metformin) * Basal insulin (no change) * Lantus 14 units SQ BID * Bolus insulin (increase) * NovoLog per scale ACHS or Q6hrs while NPO * Goal Range: Low 110 mg/dL - High 140 mg/dL * Correction Factor: 18 mg/dL/unit * Nutritional / Prandial insulin per carb ratio of 1 unit per 6 grams CHO consumed Discharge plan: A1c results now available and indicate decline in control over the course of 5 months (A1c 5.7 -->8.0). Her renal fxn has fluctuated this admission. Resumption of metformin on discharge will ultimately depend upon renal fxn. She may need addition of basal insulin on discharge along with metformin if appropriate.
--- NOTE | 2019-02-19 11:27 | Discharge Summary ---
Date of Service February 19, 2019 Admission HPI Per Admitting Provider 59-year-old obese female with a past medical history of acute on chronic diastolic congestive heart failure, hypertrophic cardiomyopathy, COPD, hypomagnesemia, chronic elevated troponins, CKD 3, GERD, obstructive sleep apnea syndrome, type 2 diabetes, hypertension, anxiety, depression, restless leg syndrome, has been complaining of shortness of breath and weakness over the last several days. She presented to our ER tonight and was found to have a BNP in the 4700 range. She was also found to have a urinary tract infection. Patient was here in the middle of November for similar symptoms. Assessment and Plan Acute on chronic diastolic congestive heart failure Urinary tract infection Hypertension Type 2 diabetes Obstructive sleep apnea syndrome GERD Chronic kidney disease stage III Hypertrophic cardiomyopathy COPD Hypomagnesemia Elevated troponin Restless leg syndrome Depression Anxiety Start her on Rocephin, Lasix 40 mg IV every 12, consult to cardiology, replace electrolytes, continue outpatient medications where appropriate, monitor daily labs, SCDs and subcu heparin. Patient meets inpatient criteria will be admitted to telemetry. ROS-No Headache, No Visual Changes, No Fever, No Chills, No Neck Pain or Stiffness, No Chest Pain, No Palpitations, positive SOB, positive BRUSH, No Cough, No Sputum, mild wheezing, No Abdominal Pain, No Diarrhea, No Hematemesis, No Hemoptysis, No Unexpected Weight Loss, No Flank pain, No Melena, No Hematochezia, No Frequency, No Urgency, No Burning, No Hematuria, No Rashes, No Diaphoresis. Appetite is Normal, complains of edema and generalized weakness Physical Exam Gen-AAO x 3, NAD, Afebrile, obese Head-NCAT, EOMI, PERRLA, Anicteric Sclera, No Posterior Pharyngeal Erythema Neck-Supple, No JVD, No Thyromegaly, No Masses, No LAD, No Bruits Lungs-decreased breath sounds at the bases and rales at the bases, No Rhonchi, No Wheezing, No Crepitus Chest-No S4, +S1, +S2, No S3, No Murmurs, No Rubs, No Gallops, No Ectopy Abdomen-Soft, Bowel Sounds Present, obese, non Tender, Non Distended, No Hepatomegaly, No Splenomegaly, No Palpable Masses, No Rebound, No Rigidity, No Guarding Musculoskeletal-Full Range of Motion Bilaterally, No CVAT Extremities-No Cyanosis, No Clubbing, 1+ pitting edema Nuero-Cranial Nerves II-XII grossly intact, Motor WNL, DTRs WNL, Strength WNL, No Focal Psych-Normal Mood PMH-acute on chronic diastolic heart failure, hypertrophic cardiomyopathy, COPD, anemia, elevated troponins, CKD 3, GERD, obstructive sleep apnea syndrome, restless leg syndrome, depression, anxiety PSH-appendectomy, , colostomy with bowel perforation, and reversal, hernia repair FH-Father of an acute [place] mother is alive and relatively healthy SH- no tobacco, drugs, alcohol Meds reviewed and Reconciled Labs Reviewed Admission Exam Per Admitting Provider ROS-No Headache, No Visual Changes, No Fever, No Chills, No Neck Pain or Stif fness, No Chest Pain, No Palpitations, positive SOB, positive BRUSH, No Cough, No Sputum, mild wheezing, No Abdominal Pain, No Diarrhea, No Hematemesis, No Hemoptysis, No Unexpected Weight Loss, No Flank pain, No Melena, No Hematochezia, No Frequency, No Urgency, No Burning, No Hematuria, No Rashes, No Diaphoresis. Appetite is Normal, complains of edema and generalized weakness Physical Exam Gen-AAO x 3, NAD, Afebrile, obese Head-NCAT, EOMI, PERRLA, Anicteric Sclera, No Posterior Pharyngeal Erythema Neck-Supple, No JVD, No Thyromegaly, No Masses, No LAD, No Bruits Lungs-decreased breath sounds at the bases and rales at the bases, No Rhonchi, No Wheezing, No Crepitus Chest-No S4, +S1, +S2, No S3, No Murmurs, No Rubs, No Gallops, No Ectopy Abdomen-Soft, Bowel Sounds Present, obese, non Tender, Non Distended, No Hepatomegaly, No Splenomegaly, No Palpable Masses, No Rebound, No Rigidity, No Guarding Musculoskeletal-Full Range of Motion Bilaterally, No CVAT Extremities-No Cyanosis, No Clubbing, 1+ pitting edema Nuero-Cranial Nerves II-XII grossly intact, Motor WNL, DTRs WNL, Strength WNL, No Focal Psych-Normal Mood Principal Diagnosis Urinary tract infection Hypertension Type 2 diabetes Obstructive sleep apnea syndrome GERD Chronic kidney disease stage III Hypertrophic cardiomyopathy COPD Hypomagnesemia Elevated troponin Restless leg syndrome Depression Anxiety Discharge Exam ROS-No Headache, No Visual Changes, No Nausea, No Vomiting, No Fever, No Chills, No Neck Pain or Stiffness, No Chest Pain, No Palpitations, No SOB, No BRUSH, No Cough, No Sputum, No Wheezing, No Abdominal Pain, No Diarrhea, No Hematemesis, No Hemoptysis, No Unexpected Weight Loss, No Flank pain, No Melena, No Hematochezia, No Frequency, No Urgency, No Burning, No Hematuria, No Rashes, No Diaphoresis. Appetite is Normal Physical Exam Gen-AAO x 3, NAD, Afebrile, On O2 here and at home. Head-NCAT, EOMI, PERRLA, Anicteric Sclera, No Posterior Pharyngeal Erythema Neck-Supple, No JVD, No Thyromegaly, No Masses, No LAD, No Bruits Lungs-Clear to Auscultation Bilaterally, No Rales, No Rhonchi, No Wheezing, No Crepitus Chest-No S4, +S1, +S2, No S3, No Murmurs, No Rubs, No Gallops, No Ectopy Abdomen-Soft, Bowel Sounds Present, Non Tender, Non Distended, No Hepatomegaly, No Splenomegaly, No Palpable Masses, No Rebound, No Rigidity, No Guarding Musculoskeletal-Full Range of Motion Bilaterally, No CVAT Extremities-No Cyanosis, No Clubbing, No Edema Nuero-Cranial Nerves II-XII grossly intact, Motor WNL, DTRs WNL, Strength WNL, Non Focal Psych-Normal Mood Discharge Data Allergies Allergy/AdvReac Type Severity Reaction Status Date / Time Sulfa (Sulfonamide Allergy Intermediate swelling Verified 02/16/19 01:52 Antibiotics) doxycycline Allergy Unknown UNKNOWN Verified 02/16/19 01:52 Penicillins Allergy Unknown Flushing, Verified 02/16/19 01:52 ITCHING adhesive AdvReac Intermediate blistering Verified 02/16/19 01:52 Consultations 02/16/19 02:55 ED Decision to Admit Stat 02/16/19 04:32 Consult Cardiac Rehabilitation Routine Consult Cardiology Routine Ordered Studies 02/17/19 00:02 US venous doppler LE Urgent Current Diagnoses Type 2 diabetes mellitus without complications (02/16/19) Hyperlipidemia, unspecified (02/16/19) Hypomagnesemia (02/16/19) Generalized anxiety disorder (02/16/19) Anxiety disorder, unspecified (02/16/19) Obstructive sleep apnea (adult) (pediatric) (02/16/19) Essential (primary) hypertension (02/16/19) Other hypertrophic cardiomyopathy (02/16/19) Acute on chronic diastolic (congestive) heart failure (02/16/19) Chronic obstructive pulmonary disease, unspecified (02/16/19) Gastro-esophageal reflux disease without esophagitis (02/16/19) Fatty (change of) liver, not elsewhere classified (02/16/19) Chronic kidney disease, stage 3 (moderate) (02/16/19) Urinary tract infection, site not specified (02/16/19) Shortness of breath (02/16/19) Abnormal levels of other serum enzymes (02/16/19) Presence of automatic (implantable) cardiac defibrillator (02/16/19) Allergies Sulfa (Sulfonamide Antibiotics) Allergy (Intermediate, Verified 02/16/19 01:52) swelling doxycycline Allergy (Unknown, Verified 02/16/19 01:52) UNKNOWN Penicillins Allergy (Unknown, Verified 02/16/19 01:52) Flushing, ITCHING adhesive Adverse Reaction (Intermediate, Verified 02/16/19 01:52) blistering Height/Weight/Isolation Height 4 ft 11 in Weight 73.5 kg Chemistry 02/18/19 02/18/19 02/18/19 05:29 07:00 07:32 Sodium 141 Potassium Cancelled 4.2 Chloride 104 Carbon Dioxide 32 Anion Gap 4.0 BUN 29 H Creatinine 1.49 H Glucose 208 H 02/19/19 05:42 Sodium 144 Potassium 4.1 Chloride 108 H Carbon Dioxide 30 Anion Gap 6.0 BUN 24 H Creatinine 1.21 H Glucose 154 H Microbiology 02/16/19 02:33 Urine,Clean Catch Urine Culture - Final Citrobacter freundii Citrobacter freundii#2 Hospital Course (1) Acute worsening of stage 3 chronic kidney disease: DC home today, Daily weights at home, Cardiac rehab (2) Acute on chronic diastolic CHF (congestive heart failure): Improved on IV Lasix (3) UTI (urinary tract infection): DC on Ceftin (4) Anxiety: stable, cont cymbalta (5) Hypertrophic cardiomyopathy: Elevated troponin likely secondary to demand ischemia in the setting (6) Cardiac defibrillator in place: (7) DVT prophylaxis: Full code Disposition-home today Total Time Total Time Spent Total Time Spent (In Minutes): 40 mins Total Time Includes: Examination of the Patient, Discharge Planning, Medication Reconciliation and Communication With Other Providers Discharge Plan Discharge Items Patient Disposition: Home - Self-Care Reason For Visit: A/C DCHF, UTI Discharge Diagnosis: Urinary tract infection Hypertension Type 2 diabetes Obstructive sleep apnea syndrome GERD Chronic kidney disease stage III Hypertrophic cardiomyopathy COPD Hypomagnesemia Elevated troponin Restless leg syndrome Depression Anxiety Condition: Good Discharge Goals: Decrease discomfort and Improve function Activity: Resume your previous activity Lifting: Gradually increase as tolerated Bathing: No limitations Sexual Activity: When tolerated Exercise/Sports: Gradually increase as tolerated Driving/Machine Use: No limitations Weightbearing: Left weightbearing and Right weightbearing Non-emergency contact: Primary Care Provider and Adult And Pediatric Neurologist Call non-emergency contact if: you have any medication questions and your symptoms worsen Follow-up/Referrals: Suad De León [Primary Care Provider] - Hammad Sandhu DO [Adult And Pediatric Neurologist] - (2-3 weeks) Diet: Heart Healthy Fluids: 1200ml (5 cups) Addtl Provider Instructions: Needs Cardiology Rehab as an outpatient Prescriptions: New atorvastatin 40 mg Tablet 40 mg PO QAM Qty: 30 RF: 0 metoprolol succinate 50 mg Tablet Extended Release 24 Hr 100 mg PO BID Qty: 60 RF: 0 nitroglycerin [Nitrostat] 0.4 mg Tablet, Sublingual 0.4 mg sublingual UD PRN (Reason: chest pain) Qty: 30 RF: 0 gabapentin 600 mg Tablet 600 mg PO TID Qty: 90 RF: 0 sumatriptan succinate 25 mg Tablet 50 mg PO DAILY PRN (Reason: migraine headache) Qty: 10 RF: 0 aspirin [Ecotrin Low Strength] 81 mg Tablet,Delayed Release (Dr/Ec) 81 mg PO DAILY Qty: 30 RF: 0 spironolactone 25 mg Tablet 12.5 mg PO DAILY Qty: 30 RF: 0 ropinirole 0.25 mg Tablet 0.5 mg PO HS Qty: 60 RF: 0 mirtazapine 15 mg Tablet 30 mg PO HS Qty: 30 RF: 0 duloxetine 60 mg Capsule,Delayed Release(Dr/Ec) 60 mg PO QDL Qty: 30 RF: 0 polyethylene glycol 3350 [Miralax] 17 gram Powder In Packet 17 g PO DAILY PRN (Reason: constipation) Qty: 10 RF: 0 pantoprazole 40 mg Tablet,Delayed Release (Dr/Ec) 40 mg PO QAM Qty: 30 RF: 0 Lantus Solostar U-100 Insulin 100 unit/mL (3 mL) Insulin Pen 14 unit SC BID Qty: 15 RF: 0 fluticasone propion-salmeterol [Advair Diskus] 500-50 mcg/dose Blister With Device 1 puff inhalation BID Qty: 2 RF: 0 folic acid 1 mg Tablet 1 mg PO HS Qty: 30 RF: 0 montelukast 10 mg Tablet 10 mg PO PM Qty: 30 RF: 0 cefuroxime axetil 500 mg tablet 500 mg PO BID 7 Days Qty: 14 RF: 0 No Action gabapentin [Neurontin] 300 mg Capsule 600 mg PO TID RF: 0 ropinirole 0.5 mg Tablet 0.5 mg PO HS RF: 0 duloxetine 60 mg Capsule,Delayed Release(Dr/Ec) 60 mg PO QDL RF: 0 mirtazapine 30 mg Tablet 30 mg PO HS RF: 0 omeprazole 40 mg Capsule,Delayed Release(Dr/Ec) 40 mg PO QAM RF: 0 folic acid 1 mg Tablet 1 mg PO HS RF: 0 sumatriptan succinate 25 mg Tablet 50 mg PO DIRECTED PRN (Reason: Headache) RF: 0 albuterol sulfate [Ventolin HFA] 90 mcg/actuation Hfa Aerosol Inhaler 2 puff INHALATION QID PRN (Reason: Shortness Of Breath) RF: 0 atorvastatin [Lipitor] 40 mg Tablet 40 mg PO QAM RF: 0 metformin 500 mg Tablet 1,000 mg PO BIDM RF: 0 albuterol sulfate 2.5 mg /3 mL (0.083 %) solution for nebulization 3 ml Inhalation Q4H PRN (Reason: Wheezing) RF: 0 fluticasone propion-salmeterol 500-50 mcg/dose blister with device 1 puff Inhalation BID RF: 0 furosemide [Lasix] 40 mg Tablet 40 mg PO 5XWK RF: 0 spironolactone 25 mg Tablet 12.5 mg PO DAILY RF: 0 montelukast 10 mg Tablet 10 mg PO PM RF: 0 ondansetron HCl [Zofran] 4 mg Tablet 4 mg PO TID PRN (Reason: Nausea) RF: 0 diphenoxylate-atropine [Lomotil] 2.5-0.025 mg Tablet 1 tab PO QID PRN (Reason: Diarrhea) RF: 0 aspirin 81 mg Tablet,Chewable 81 mg PO DAILY RF: 0 furosemide 40 mg Tablet 80 mg PO 2XWK RF: 0 metoprolol succinate 100 mg tablet extended release 24 hr 100 mg PO BID RF: 0 Stand-Alone Forms: [facility] Discharge Orders: Discharge Order (Routine); Ordered 02/19/19 Ordered By: Valdemar Reyes Admission Data Admit Date/Time: 02/16/19 03:43 Attending Provider: Valdemar Reyes Admit Provider: Valdemar Reyes Primary Care Provider: Suad De León Other Providers: Valdemar Reyes ; Sb Bruno Service: Telemetry
[2019-02-19] MEDS: DULOXETINE HCL 60 MG CAP PO SCH (13:51)
== END 2019-02-19 15:43 | disposition home or self-care (01) | DRG 291 ==
LOC: ED 01:00 → SUATTDRO 03:43 → 2S 03:43

== ENCOUNTER 2019-02-27 22:54 | Observation (INO) ==
[2019-02-27] MEDS ORDERED: ASPIRIN CHEW 324 MG PO STA (23:21)
[2019-02-27] MEDS ORDERED: NITROGLYCERIN SL 0.4 MG/TAB TAB SL STA (23:22)
[2019-02-27] MEDS ORDERED: LORazepam 1 MG TAB SL STA (23:41)
[2019-02-28 00:17] LABS: Basophils # (auto) 0.01 K/uL (0-0.2); Basophils % (auto) 0.1 %; Eosinophils # (auto) 0.13 K/uL (0-0.5); Eosinophils % (auto) 1.5 %; Hematocrit (blood only) 35.6 % (37-47); Hemoglobin 11.9 g/dL (12.0-16.0); Immature Granulocytes # (auto) 0.03 K/uL (0.00-0.02); Immature Granulocytes % (auto) 0.4 %; Lymphocytes # (auto) 1.38 K/uL (1.2-3.4); Lymphocytes % (auto) 16.2 %; Mean Corpuscular Hgb Conc 33.4 g/dL (32-36); Mean Corpuscular Volume 90.8 fL (80-100); Mean Platelet Volume 9.7 fL (7.4-10.4); Monocytes # (auto) 0.26 K/uL (0.11-0.59); Monocytes % (auto) 3.1 %; Neutrophils # (auto) 6.71 K/uL (1.4-6.5); Neutrophils % (auto) 78.7 %; Platelet Count 193 K/uL (130-400); RDW Coefficient of Variation 16.1 % (11.5-14.5); RDW Standard Deviation 52.5 fL (36.4-46.3); Red Blood Count 3.92 M/uL (4.2-5.4); White Blood Count 8.52 K/uL (4.8-10.8)
[2019-02-28 00:39] LABS: Albumin Level 3.4 gm/dl (3.4-5.0); Calcium 8.7 mg/dl (8.5-10.1); Creatinine Clr Calc Pharmacy 46.9 ml/min; Est GFR (African American) 62.8; Est GFR (Non-African American) 54.1; Potassium 4.3 mmol/L (3.5-5.1)
[2019-02-28 00:49] LABS: Bilirubin,Total 0.3 mg/dl (0.2-1); Globulin 3.5 gm/dl (2.5-4.0); Total Protein 6.9 gm/dl (6.4-8.2); Troponin I 0.142 ng/ml (0-0.045)
[2019-02-28] MEDS ORDERED: INSULIN HUMAN REGULAR PER UNIT 10 UNITS in SYRINGE 0 ML SC STA (00:57)
[2019-02-28] MEDS ORDERED: NovoLIN-R INSULIN PER UNIT CHARGE SQ STA (01:02)
[2019-02-28 01:15] LABS: Beta-Hydroxybutyrate 1.07 mg/dl (0.2-2.81)
[2019-02-28 02:29] LABS: Troponin I 0.158 ng/ml (0-0.045)
[2019-02-28] MEDS ORDERED: METOPROLOL SUCC 50MG EXT REL TAB PO STA (02:46)
[2019-02-28 03:03] LABS: Partial Thromboplastin Ratio 0.9; Partial Thromboplastin Time 23.6 Seconds (21.0-31.0)
--- NOTE | 2019-02-28 03:28 | History & Physical Report ---
Date of Service February 28, 2019 Assessment & Plan (1) Chest pain: Likely musculoskeletal with reproducible component rule out right shoulder pathology Rule out PE/aortic dissection given pleuritic description, radiation to the back Moderate CAD as per recent diagnostic cardiac cath 11/2018 chronic diastolic heart failure (EF 70%, TTE 2018), patient euvolemic hypertension, slight elevated HOCM, family history sudden cardiac sp ICD placement DM2 insulin requiring, suboptimal control as of recent outpatient hemoglobin A1c of 8.17 February 2019 mood disorder, at baseline as per patient Dysuria rule out recurrent UTI Diarrhea rule out C. difficile OBS Medical telemetry CT chest dissection study Right shoulder x-ray Trend troponin Check UA Stool C. difficile Further management pending workup results Basal insulin, ISS BG goal 140-180, carb count coverage, DVT prophylaxis Lovenox subcu Full code History of Present Illness Chief Complaint: Chest pain Primary Care Provider: Suad De León DO History obtained from patient, , and records. Medical history significant for CAD, chronic diastolic heart failure (EF 70%, TTE 2019), hypertension, HOCM, family history sudden cardiac sp ICD placement, DM2 insulin requiring, sleep apnea, restless leg syndrome as per records, bowel perforation status post surgery, mood disorder. Recent confinement 2 weeks ago for decompensated heart failure, UTI. Patient seen at PCP's office 3 days ago for hospital discharge follow-up. Patient complaining of dysuria, loose stools. Outpatient UA negative. No abdominal pain, no nausea, no emesis. Patient was sitting down last night when she noted pleuritic right-sided chest pain going to the right shoulder blade and upper back. Some shortness of breath, no cough. No recollection of recent trauma, exertion. Minimal relief with nitroglycerin given at the ER. Allergies Allergy/AdvReac Type Severity Reaction Status Date / Time Penicillins Allergy Intermediate Flushing, Verified 02/27/19 23:37 ITCHING Sulfa (Sulfonamide Allergy Intermediate swelling Verified 02/27/19 23:37 Antibiotics) doxycycline Allergy Unknown UNKNOWN Verified 02/27/19 23:37 adhesive AdvReac Intermediate blistering Verified 02/27/19 23:37 Home Medications Home Medications Medication Instructions Recorded Confirmed Type duloxetine 60 mg PO QDL 08/09/18 02/27/19 History folic acid 1 mg PO HS 08/09/18 02/27/19 History mirtazapine 30 mg PO HS 08/09/18 02/27/19 History omeprazole 40 mg PO QAM 08/09/18 02/27/19 History sumatriptan succinate 50 mg PO DIRECTED PRN 08/09/18 02/27/19 History metformin 1,000 mg PO BIDM 08/12/18 02/27/19 History albuterol sulfate 3 ml INHALATION Q4H PRN 09/09/18 02/27/19 History furosemide [Lasix] 40 mg PO 5XWK 11/28/18 02/27/19 History furosemide 80 mg PO 2XWK 12/03/18 02/27/19 History diphenoxylate-atropine [Lomotil] 1 tab PO QID PRN 12/19/18 02/27/19 History ondansetron HCl [Zofran] 4 mg PO TID PRN 12/19/18 02/27/19 History aspirin [Ecotrin Low Strength] 81 mg PO DAILY #30 tab 02/19/19 02/27/19 Rx atorvastatin 40 mg PO QAM #30 tab 02/19/19 02/27/19 Rx fluticasone propion-salmeterol 1 puff INHALATION BID #2 ea 02/19/19 02/27/19 Rx [Advair Diskus] gabapentin 600 mg PO TID #90 tab 02/19/19 02/27/19 Rx insulin glargine [Lantus Solostar 14 unit SC BID #15 ml 02/19/19 02/27/19 Rx U-100 Insulin] metoprolol succinate 100 mg PO BID #60 tab 02/19/19 02/27/19 Rx montelukast 10 mg PO PM #30 tab 02/19/19 02/27/19 Rx nitroglycerin [Nitrostat] 0.4 mg SUBLINGUAL UD PRN #30 tab 02/19/19 02/27/19 Rx pantoprazole 40 mg PO QAM #30 tab 02/19/19 02/27/19 Rx polyethylene glycol 3350 [Miralax] 17 g PO DAILY PRN #10 ea 02/19/19 02/27/19 Rx ropinirole 0.5 mg PO HS #60 tab 02/19/19 02/27/19 Rx spironolactone 12.5 mg PO DAILY #30 tab 02/19/19 02/27/19 Rx cefuroxime axetil 500 mg PO BID 02/27/19 02/27/19 History Past Med/Surg History Medical History CKD (chronic kidney disease), stage III (Chronic) GERD (gastroesophageal reflux disease) (Chronic) HLD (hyperlipidemia) (Chronic) Hypertension (Chronic) Anxiety (Chronic) Cardiac defibrillator in place (Chronic) 2014 [place]ENCE (obstructive sleep apnea) (Chronic) Hypertrophic cardiomyopathy (Chronic) CHF (congestive heart failure) Asthma (Chronic) COPD (chronic obstructive pulmonary disease) (Chronic) Fatty (change of) liver, not elsewhere classified (Chronic) Arthritis (Chronic) Diabetes mellitus, type 2 (Chronic) Pancreatic cyst (Chronic) Depression (Chronic) Hydronephrosis of right kidney (Chronic) Elevated troponin (Chronic) Restless leg syndrome (Chronic) Surgical History History of appendectomy (Resolved) H/O section (Resolved) 1979 & 1982 History of colostomy reversal (Resolved) bowel perf 2013 with colostomy reversed in 2014 H/O hernia repair (Resolved) 2015 Status post partial resection of colon (Chronic) "diverticulitis 11/05/14" History of colostomy reversal (Chronic) "04/19/15" Status post appendectomy (Chronic) Status post internal cardiac defibrillator procedure (Chronic) "2014" Family History Other Hypertrophic cardiomyopathy Stomach cancer Thyroid disorder Social History Preferred Language: Armenian Beliefs That Will Affect Care: None marital status: Current Living Situation: Spouse 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 Feels Safe at Home: Yes Smoking Status: Never smoker Hx Alcohol Use: No Hx Substance Use: No Review of Systems As per HPI, all 10 systems reviewed, all other ROS negative Physical Exam Vital Signs (Past 24 Hours): Last Vital Signs Temp 37.2 C 02/27/19 22:56 Pulse 96 H 02/28/19 03:03 Resp 15 02/28/19 03:03 BP 153/75 H 02/28/19 03:03 Pulse Ox 92 02/28/19 03:03 Physical Exam: GENERAL: Anxious, uncomfortable, obese, no respiratory distress SKIN: Normal color, warm HEENT: [place] palpebral conjunctivae, no ptosis, dry buccal mucosa NECK : Supple, short neck, no tenderness CHEST : CTA, right chest wall tenderness HEART : RRR, no obvious murmurs ABDOMEN: Some distention, nontender EXTREMITIES : No LE swelling/tenderness, right shoulder tenderness NEUROLOGIC : Coherent, no facial asymmetry, no other gross focality Results & Data Laboratory Results Laboratory Results WBC 8.52 K/uL (4.8-10.8) 02/28/19 00:04 RBC 3.92 M/uL (4.2-5.4) L 02/28/19 00:04 Hgb 11.9 g/dL (12.0-16.0) L 02/28/19 00:04 Hct 35.6 % (37-47) L 02/28/19 00:04 MCV 90.8 fL (80-100) 02/28/19 00:04 MCH 30.4 pg (25-34) 02/28/19 00:04 MCHC 33.4 g/dL (32-36) 02/28/19 00:04 RDW Std Deviation 52.5 fL (36.4-46.3) H 02/28/19 00:04 RDW Coeff of Rolan 16.1 % (11.5-14.5) H 02/28/19 00:04 Plt Count 193 K/uL (130-400) 02/28/19 00:04 MPV 9.7 fL (7.4-10.4) 02/28/19 00:04 Immature Gran % (Auto) 0.4 % 02/28/19 00:04 Neut % (Auto) 78.7 % 02/28/19 00:04 Lymph % (Auto) 16.2 % 02/28/19 00:04 [place] % (Auto) 3.1 % 02/28/19 00:04 Eos % (Auto) 1.5 % 02/28/19 00:04 Baso % (Auto) 0.1 % 02/28/19 00:04 Immature Gran # (Auto) 0.03 K/uL (0.00-0.02) H 02/28/19 00:04 Neut # (Auto) 6.71 K/uL (1.4-6.5) H 02/28/19 00:04 Lymph # (Auto) 1.38 K/uL (1.2-3.4) 02/28/19 00:04 [place] # (Auto) 0.26 K/uL (0.11-0.59) 02/28/19 00:04 Eos # (Auto) 0.13 K/uL (0-0.5) 02/28/19 00:04 Baso # (Auto) 0.01 K/uL (0-0.2) 02/28/19 00:04 APTT 23.6 Seconds (21.0-31.0) 02/28/19 00:05 PTT Ratio 0.9 02/28/19 00:05 Sodium 140 mmol/L (136-145) 02/28/19 00:04 Potassium 4.3 mmol/L (3.5-5.1) 02/28/19 00:04 Chloride 109 mmol/L (98-107) H 02/28/19 00:04 Carbon Dioxide 25 mmol/L (21-32) 02/28/19 00:04 Anion Gap 6.0 (3-11) 02/28/19 00:04 BUN 15 mg/dl (7-18) 02/28/19 00:04 Creatinine 1.10 mg/dl (0.6-1.2) 02/28/19 00:04 Est Cr Clr Drug Dosing 46.9 ml/min 02/28/19 00:04 Est GFR ( Amer) 62.8 02/28/19 00:04 Est GFR (Non-Af Amer) 54.1 02/28/19 00:04 BUN/Creatinine Ratio 14.0 (10-20) 02/28/19 00:04 Glucose 337 mg/dl (70-99) H 02/28/19 00:04 POC Glucose 254 (70-99) H 02/28/19 02:45 Calcium 8.7 mg/dl (8.5-10.1) 02/28/19 00:04 Magnesium 2.0 mg/dl (1.8-2.4) 02/28/19 01:59 Total Bilirubin 0.3 mg/dl (0.2-1) 02/28/19 00:04 AST 23 U/L (15-37) 02/28/19 00:04 ALT 31 U/L (12-78) 02/28/19 00:04 Alkaline Phosphatase 158 U/L (45-117) H 02/28/19 00:04 Troponin I 0.158 ng/ml (0-0.045) H* 02/28/19 01:59 Total Protein 6.9 gm/dl (6.4-8.2) 02/28/19 00:04 Albumin 3.4 gm/dl (3.4-5.0) 02/28/19 00:04 Globulin 3.5 gm/dl (2.5-4.0) 02/28/19 00:04 Albumin/Globulin Ratio 1.0 (0.9-2) 02/28/19 00:04 Lipase 241 U/L (73-393) 02/28/19 00:04 Beta-Hydroxybutyric Acd 1.07 mg/dl (0.2-2.81) 02/28/19 00:04 TSH 4.530 uIu/ml (0.300-4.500) H 02/28/19 01:59 Diagnostic Findings Chest x-ray my interpretation, cardiomegaly, atelectasis EKG as per my interpretation : Rate 95, NSR, incomplete RBBB, LVH, ST depression lateral leads (1) Chest pain Chest pain type: unspecified Qualified Code(s): R07.9 - Chest pain, unspecified
[2019-02-28] MEDS ORDERED: MoRPHine SULFATE 4 MG/ML 1 ML CARP\\VIAL IV PRN (03:29)
[2019-02-28] MEDS ORDERED: LORazepam 0.5 MG/1 ML VIAL IV PRN (03:29)
[2019-02-28] MEDS ORDERED: OPTIRAY 320 125ml IV PRN (04:17)
[2019-02-28] MEDS ORDERED: GLUCAGON FOR INJ 1 MG VIAL SQ PRN (04:35)
[2019-02-28] MEDS ORDERED: PROCHLORPERAZINE 5 MG in SYRINGE 4 ML IV PRN (04:35)
[2019-02-28] MEDS ORDERED: GLUCOSE 40% GEL 15 GM TUBE PO PRN (04:35)
[2019-02-28] MEDS ORDERED: CARBOHYDRATES FOR HYPOGLYCEMIA PO PRN (04:35)
[2019-02-28] MEDS ORDERED: DEXTROSE 50% 50 ML SYRINGE IV PRN (04:35)
[2019-02-28] MEDS ORDERED: GLUCOSE 10 TABS/TUBE PO PRN (04:35)
[2019-02-28] MEDS ORDERED: ACETAMINOPHEN 325 MG TAB PO PRN (04:35)
[2019-02-28] MEDS ORDERED: LORazepam 0.25 MG/0.5 ML VIAL IV PRN (04:41)
[2019-02-28] MEDS: TRAMADOL HCL 50 MG TABLET PO PRN ×2 (05:29→15:45)
--- NOTE | 2019-02-28 05:29 | Emergency Department Note ---
Entered by Reynaldo Cordoba acting as a scribe for Padmaja Weir MD History of Present Illness General Chief complaint: Chest Pain Stated complaint: CHEST PAIN- CARDIAC HX Time Seen by Provider: 02/27/19 23:09 Source: patient Limitations: no limitations History of Present Illness Provider complaint: Right chest pain Onset (ago): hour(s) (7.5) Location: chest and right Pain Consistency: + other (worsening) Maximum Pain Intensity: 9 Exacerbated By: + movement Associated symptoms: no shortness of breath Treatments prior to arrival: other (Baby Aspirin) The patient is a 59 year old female who presents to the Emergency Room with complaints of worsening chest pain that began at 1600 this afternoon, about 7.5 hours ago. The patient states that the pain is localized to the right chest and is worsened with movement. She adds that she was seated at rest when her symptoms began. The patient did try to take a bath before coming to the ED, which worsened her pain. The pain was acutely worsened by lowering/raising herself into and out of the tub. The patient denies any shortness of breath. The patient's at bedside adds that she had a defibrillator placed in her est 5 years ago. Home Medications Home Medications Medication Instructions Recorded Confirmed Type duloxetine 60 mg PO QDL 08/09/18 02/27/19 History folic acid 1 mg PO HS 08/09/18 02/27/19 History mirtazapine 30 mg PO HS 08/09/18 02/27/19 History omeprazole 40 mg PO QAM 08/09/18 02/27/19 History sumatriptan succinate 50 mg PO DIRECTED PRN 08/09/18 02/27/19 History metformin 1,000 mg PO BIDM 08/12/18 02/27/19 History albuterol sulfate 3 ml INHALATION Q4H PRN 09/09/18 02/27/19 History furosemide [Lasix] 40 mg PO 5XWK 11/28/18 02/27/19 History furosemide 80 mg PO 2XWK 12/03/18 02/27/19 History diphenoxylate-atropine [Lomotil] 1 tab PO QID PRN 12/19/18 02/27/19 History ondansetron HCl [Zofran] 4 mg PO TID PRN 12/19/18 02/27/19 History Lantus Solostar U-100 Insulin 14 unit SC BID #15 ml 02/19/19 02/27/19 Rx aspirin [Ecotrin Low Strength] 81 mg PO DAILY #30 tab 02/19/19 02/27/19 Rx atorvastatin 40 mg PO QAM #30 tab 02/19/19 02/27/19 Rx fluticasone propion-salmeterol 1 puff INHALATION BID #2 ea 02/19/19 02/27/19 Rx [Advair Diskus] gabapentin 600 mg PO TID #90 tab 02/19/19 02/27/19 Rx metoprolol succinate 100 mg PO BID #60 tab 02/19/19 02/27/19 Rx montelukast 10 mg PO PM #30 tab 02/19/19 02/27/19 Rx nitroglycerin [Nitrostat] 0.4 mg SUBLINGUAL UD PRN #30 tab 02/19/19 02/27/19 Rx pantoprazole 40 mg PO QAM #30 tab 02/19/19 02/27/19 Rx polyethylene glycol 3350 [Miralax] 17 g PO DAILY PRN #10 ea 02/19/19 02/27/19 Rx ropinirole 0.5 mg PO HS #60 tab 02/19/19 02/27/19 Rx spironolactone 12.5 mg PO DAILY #30 tab 02/19/19 02/27/19 Rx cefuroxime axetil 500 mg PO BID 02/27/19 02/27/19 History Allergies Allergy/AdvReac Type Severity Reaction Status Date / Time Penicillins Allergy Intermediate Flushing, Verified 02/27/19 23:37 ITCHING Sulfa (Sulfonamide Allergy Intermediate swelling Verified 02/27/19 23:37 Antibiotics) doxycycline Allergy Unknown UNKNOWN Verified 02/27/19 23:37 adhesive AdvReac Intermediate blistering Verified 02/27/19 23:37 Past Med/Surg History Medical History CKD (chronic kidney disease), stage III (Chronic) GERD (gastroesophageal reflux disease) (Chronic) HLD (hyperlipidemia) (Chronic) Hypertension (Chronic) Anxiety (Chronic) Cardiac defibrillator in place (Chronic) 2014 CADENCE (obstructive sleep apnea) (Chronic) Hypertrophic cardiomyopathy (Chronic) CHF (congestive heart failure) Asthma (Chronic) COPD (chronic obstructive pulmonary disease) (Chronic) Fatty (change of) liver, not elsewhere classified (Chronic) Arthritis (Chronic) Diabetes mellitus, type 2 (Chronic) Pancreatic cyst (Chronic) Depression (Chronic) Hydronephrosis of right kidney (Chronic) Elevated troponin (Chronic) Restless leg syndrome (Chronic) Surgical History History of appendectomy (Resolved) 1970s H/O section (Resolved) 1979 & 1982 History of colostomy reversal (Resolved) bowel perf 2014 with colostomy reversed in 2014 H/O hernia repair (Resolved) 2016 Status post partial resection of colon (Chronic) "diverticulitis 11/05/14" History of colostomy reversal (Chronic) "04/19/15" Status post appendectomy (Chronic) Status post internal cardiac defibrillator procedure (Chronic) "2014" Family History Other Hypertrophic cardiomyopathy Stomach cancer Thyroid disorder Social History Preferred Language: Spanish Beliefs That Will Affect Care: None marital status: Current Living Situation: Spouse 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 and A total of 10 systems reviewed and were otherwise negative Physical Exam Vital Signs Vital Signs - 24 hr 02/27/19 22:56 02/27/19 23:08 02/27/19 23:20 Temperature 37.2 C Temperature Source Oral Sepsis Recent Fever Within 48 Hours No Sepsis Action Taken by Nursing No Action Required Pulse Rate 99 H 100 H 95 H Pulse Rate [Right Finger] Pulse Rate from SpO2 Sensor 95 H Respiratory Rate 18 27 H 19 Respiratory Effort / Characteristics Non-Labored Spontaneous Respiratory Depth Normal Respiratory Pattern Regular Blood Pressure 147/74 H 154/74 H Blood Pressure [Right Arm] Blood Pressure Mean 98 100 Blood Pressure Mean [Right Arm] Pulse Oximetry 97 97 Oxygen Delivery Method Room Air 02/27/19 23:30 02/28/19 00:00 02/28/19 01:21 Temperature Temperature Source Sepsis Recent Fever Within 48 Hours Sepsis Action Taken by Nursing Pulse Rate 103 H 93 H Pulse Rate [Right Finger] 93 H Pulse Rate from SpO2 Sensor Respiratory Rate 20 22 24 Respiratory Effort / Characteristics Respiratory Depth Respiratory Pattern Blood Pressure Blood Pressure [Right Arm] 136/73 Blood Pressure Mean Blood Pressure Mean [Right Arm] 94 Pulse Oximetry 97 Oxygen Delivery Method 02/28/19 02:35 02/28/19 03:03 02/28/19 03:51 Temperature Temperature Source Sepsis Recent Fever Within 48 Hours Sepsis Action Taken by Nursing Pulse Rate Pulse Rate [Right Finger] 98 H 96 H Pulse Rate from SpO2 Sensor Respiratory Rate 19 15 Respiratory Effort / Characteristics Respiratory Depth Respiratory Pattern Blood Pressure Blood Pressure [Right Arm] 169/79 H 153/75 H Blood Pressure Mean Blood Pressure Mean [Right Arm] 109 101 Pulse Oximetry 97 92 94 Oxygen Delivery Method Room Air 02/28/19 04:45 Temperature Temperature Source Sepsis Recent Fever Within 48 Hours Sepsis Action Taken by Nursing Pulse Rate 92 H Pulse Rate [Right Finger] Pulse Rate from SpO2 Sensor Respiratory Rate 17 Respiratory Effort / Characteristics Respiratory Depth Respiratory Pattern Blood Pressure 153/78 H Blood Pressure [Right Arm] Blood Pressure Mean Blood Pressure Mean [Right Arm] Pulse Oximetry 95 Oxygen Delivery Method Room Air Vital signs reviewed. General: Well-appearing, anxious, middle-aged female, in no significant distres s. HEENT: No scleral icterus, PERRLA, neck supple. Atraumatic. Cardiovascular: Regular rate and rhythm, no extra sounds. Chest: There is a defibrillator to the right anterior chest. Patient is tender to palpation in the right anterior chest. There is discomfort with ROM of the right shoulder/arm. Pulmonary: Clear to auscultation bilaterally, normal work of breathing. Abdomen: Soft, nontender, nondistended, positive bowel sounds. Musculoskeletal: Atraumatic, no peripheral edema. Neurologic: Patient awake alert and oriented x 3 Skin: Warm, dry, no rash Course 2319: The patient was evaluated in room C10, and a complete history and physical examination were performed. 0236: I reviewed the patient's case with Dr. Landen Jimenez Hospitalist. He will evaluate the patient for further management. Administered Medications Discontinued Medications Acetaminophen (Tylenol) 650 mg PO Q4H PRN PRN Reason: pain/fever Stop: 03/30/19 04:34 Last Admin: 02/28/19 15:45 Dose: 650 mg Documented by: [id number] Aspirin (Aspirin) 324 mg PO NOW STA Stop: 02/27/19 23:22 Last Admin: 02/27/19 23:37 Dose: 324 mg Documented by: [id number] Atorvastatin Calcium (Lipitor) 40 mg PO QAM [facility] Stop: 03/30/19 08:59 Last Admin: 02/28/19 07:52 Dose: 40 mg Documented by: [id number] Duloxetine HCl (Cymbalta) 60 mg PO QDL [facility] Stop: 03/30/19 11:29 Last Admin: 02/28/19 07:52 Dose: 60 mg Documented by: [id number] Enoxaparin Sodium (Lovenox) 40 mg SQ QAM [facility] Stop: 03/30/19 08:59 Last Admin: 02/28/19 07:52 Dose: 40 mg Documented by: [id number] Gabapentin (Neurontin) 600 mg PO TID [facility] Stop: 03/30/19 08:59 Last Admin: 02/28/19 14:31 Dose: 600 mg Documented by: [id number] Admin: 02/28/19 07:51 Dose: 600 mg Documented by: [id number] Sodium Chloride (Nss 1000ml) 1,000 mls @ 50 mls/hr IV .Q20H ONE Stop: 03/01/19 01:29 Last Infusion: 02/28/19 10:48 Dose: 0 mls/hr Documented by: [id number] Admin: 02/28/19 05:43 Dose: 50 mls/hr Documented by: [id number] Insulin Aspart (Novolog Flexpen) 0 units SC ACHS [facility] Stop: 03/30/19 05:44 Last Admin: 02/28/19 12:17 Dose: 5 units Documented by: [id number] Cosigned by: [id number] Admin: 02/28/19 07:50 Dose: 2 units Documented by: [id number] Cosigned by: [id number] Admin: 02/28/19 06:07 Dose: 1 units Documented by: [id number] Cosigned by: [id number] Insulin Glargine (Lantus Solostar Pen) 15 units SC BID [facility] Stop: 03/30/19 05:59 Last Admin: 02/28/19 06:12 Dose: 15 units Documented by: [id number] Cosigned by: [id number] Insulin Human Regular (Novolin R U-100 Per Unit) 10 units SQ ONE STA Stop: 02/28/19 01:03 Last Admin: 02/28/19 01:18 Dose: 10 units Documented by: [id number] Cosigned by: [id number] Ioversol (Optiray 320 125ml) 125 ml IV ONCE PRN PRN Reason: Interaction Checking Stop: 03/04/19 04:16 Last Admin: 02/28/19 04:17 Dose: 118 ml Documented by: [id number] Lorazepam (Ativan) 1 mg SL NOW STA Stop: 02/27/19 23:42 Last Admin: 02/27/19 23:46 Dose: 1 mg Documented by: [id number] Metoprolol Succinate (Toprol Xl) 100 mg PO NOW STA Stop: 02/28/19 02:47 Last Admin: 02/28/19 02:56 Dose: 100 mg Documented by: [id number] Nitroglycerin (Nitrostat) 0.4 mg SL NOW STA Stop: 02/27/19 23:23 Last Admin: 02/27/19 23:38 Dose: 0.4 mg Documented by: [id number] Pantoprazole Sodium (Protonix) 40 mg PO QAM [facility] Stop: 03/30/19 08:59 Last Admin: 02/28/19 07:51 Dose: 40 mg Documented by: [id number] Fluticasone/Salmeterol (Advair Diskus 500/50) 1 puffs INH BID [facility] Stop: 03/30/19 08:59 Last Admin: 02/28/19 07:51 Dose: 1 puffs Documented by: [id number] Tramadol HCl (Ultram) 25 - 50 mg PO Q4H PRN PRN Reason: Pain Stop: 03/30/19 03:28 Last Admin: 02/28/19 15:45 Dose: 50 mg Documented by: [id number] Admin: 02/28/19 05:29 Dose: 50 mg Documented by: [id number] Medical Decision Making Differential Diagnosis DDx: Acute coronary syndrome, pulmonary embolus, aortic dissection, musculoskeletal p ain, pneumonia, pleural effusion, pneumothorax, GERD, gastritis, PUD Medical Records Attestation: I reviewed the patient's medical records. Home Medications Current Medication List: was personally reviewed by me Laboratory Data Attestation: I reviewed the patient's lab results. Result diagrams: 02/28/19 00:04 02/28/19 00:04 Lab Results 02/28/19 02/28/19 02/28/19 Range/Units 00:04 00:04 00:05 WBC 8.52 (4.8-10.8) K/uL RBC 3.92 L (4.2-5.4) M/uL Hgb 11.9 L (12.0-16.0) g/dL Hct 35.6 L (37-47) % MCV 90.8 (80-100) fL MCH 30.4 (25-34) pg MCHC 33.4 (32-36) g/dL RDW Std Deviation 52.5 H (36.4-46.3) fL RDW Coeff of Rolan 16.1 H (11.5-14.5) % Plt Count 193 (130-400) K/uL MPV 9.7 (7.4-10.4) fL Immature Gran % (Auto) 0.4 % Neut % (Auto) 78.7 % Lymph % (Auto) 16.2 % [place] % (Auto) 3.1 % Eos % (Auto) 1.5 % Baso % (Auto) 0.1 % Immature Gran # (Auto) 0.03 H (0.00-0.02) K/uL Neut # (Auto) 6.71 H (1.4-6.5) K/uL Lymph # (Auto) 1.38 (1.2-3.4) K/uL [place] # (Auto) 0.26 (0.11-0.59) K/uL Eos # (Auto) 0.13 (0-0.5) K/uL Baso # (Auto) 0.01 (0-0.2) K/uL APTT 23.6 (21.0-31.0) Seconds PTT Ratio 0.9 Sodium 140 (136-145) mmol/L Potassium 4.3 (3.5-5.1) mmol/L Chloride 109 H (98-107) mmol/L Carbon Dioxide 25 (21-32) mmol/L Anion Gap 6.0 (3-11) BUN 15 (7-18) mg/dl Creatinine 1.10 (0.6-1.2) mg/dl Est Cr Clr Drug Dosing 46.9 ml/min Est GFR ( Amer) 62.8 Est GFR (Non-Af Amer) 54.1 BUN/Creatinine Ratio 14.0 (10-20) Glucose 337 H (70-99) mg/dl POC Glucose (70-99) Calcium 8.7 (8.5-10.1) mg/dl Magnesium (1.8-2.4) mg/dl Total Bilirubin 0.3 (0.2-1) mg/dl AST 23 (15-37) U/L ALT 31 (12-78) U/L Alkaline Phosphatase 158 H (45-117) U/L Troponin I 0.142 H* (0-0.045) ng/ml Total Protein 6.9 (6.4-8.2) gm/dl Albumin 3.4 (3.4-5.0) gm/dl Globulin 3.5 (2.5-4.0) gm/dl Albumin/Globulin Ratio 1.0 (0.9-2) Lipase 241 (73-393) U/L Beta-Hydroxybutyric Acd 1.07 (0.2-2.81) mg/dl TSH (0.300-4.500) uIu/ml Urine Color Urine Appearance (Clear) Urine pH (4.5-7.5) Ur Specific [place] (1.000-1.030) Urine Protein (Negative) Urine Glucose (UA) (Negative) Urine Ketones (Negative) Urine Blood (Negative) Urine Nitrite (Negative) Urine Bilirubin (Negative) Urine Urobilinogen (Negative) Ur Leukocyte Esterase (Negative) 02/28/19 02/28/19 02/28/19 Range/Units 01:59 02:43 02:45 WBC (4.8-10.8) K/uL RBC (4.2-5.4) M/uL Hgb (12.0-16.0) g/dL Hct (37-47) % MCV (80-100) fL MCH (25-34) pg MCHC (32-36) g/dL RDW Std Deviation (36.4-46.3) fL RDW Coeff of Rolan (11.5-14.5) % Plt Count (130-400) K/uL MPV (7.4-10.4) fL Immature Gran % (Auto) % Neut % (Auto) % Lymph % (Auto) % [place] % (Auto) % Eos % (Auto) % Baso % (Auto) % Immature Gran # (Auto) (0.00-0.02) K/uL Neut # (Auto) (1.4-6.5) K/uL Lymph # (Auto) (1.2-3.4) K/uL [place] # (Auto) (0.11-0.59) K/uL Eos # (Auto) (0-0.5) K/uL Baso # (Auto) (0-0.2) K/uL APTT (21.0-31.0) Seconds PTT Ratio Sodium (136-145) mmol/L Potassium (3.5-5.1) mmol/L Chloride (98-107) mmol/L Carbon Dioxide (21-32) mmol/L Anion Gap (3-11) BUN (7-18) mg/dl Creatinine (0.6-1.2) mg/dl Est Cr Clr Drug Dosing ml/min Est GFR ( Amer) Est GFR (Non-Af Amer) BUN/Creatinine Ratio (10-20) Glucose (70-99) mg/dl POC Glucose 67 L* 254 H (70-99) Calcium (8.5-10.1) mg/dl Magnesium 2.0 (1.8-2.4) mg/dl Total Bilirubin (0.2-1) mg/dl AST (15-37) U/L ALT (12-78) U/L Alkaline Phosphatase (45-117) U/L Troponin I 0.158 H* (0-0.045) ng/ml Total Protein (6.4-8.2) gm/dl Albumin (3.4-5.0) gm/dl Globulin (2.5-4.0) gm/dl Albumin/Globulin Ratio (0.9-2) Lipase (73-393) U/L Beta-Hydroxybutyric Acd (0.2-2.81) mg/dl TSH 4.530 H (0.300-4.500) uIu/ml Urine Color Urine Appearance (Clear) Urine pH (4.5-7.5) Ur Specific [place] (1.000-1.030) Urine Protein (Negative) Urine Glucose (UA) (Negative) Urine Ketones (Negative) Urine Blood (Negative) Urine Nitrite (Negative) Urine Bilirubin (Negative) Urine Urobilinogen (Negative) Ur Leukocyte Esterase (Negative) 02/28/19 02/28/19 02/28/19 Range/Units 05:09 06:10 06:20 WBC (4.8-10.8) K/uL RBC (4.2-5.4) M/uL Hgb (12.0-16.0) g/dL Hct (37-47) % MCV (80-100) fL MCH (25-34) pg MCHC (32-36) g/dL RDW Std Deviation (36.4-46.3) fL RDW Coeff of Rolan (11.5-14.5) % Plt Count (130-400) K/uL MPV (7.4-10.4) fL Immature Gran % (Auto) % Neut % (Auto) % Lymph % (Auto) % [place] % (Auto) % Eos % (Auto) % Baso % (Auto) % Immature Gran # (Auto) (0.00-0.02) K/uL Neut # (Auto) (1.4-6.5) K/uL Lymph # (Auto) (1.2-3.4) K/uL [place] # (Auto) (0.11-0.59) K/uL Eos # (Auto) (0-0.5) K/uL Baso # (Auto) (0-0.2) K/uL APTT (21.0-31.0) Seconds PTT Ratio Sodium (136-145) mmol/L Potassium (3.5-5.1) mmol/L Chloride (98-107) mmol/L Carbon Dioxide (21-32) mmol/L Anion Gap (3-11) BUN (7-18) mg/dl Creatinine (0.6-1.2) mg/dl Est Cr Clr Drug Dosing ml/min Est GFR ( Amer) Est GFR (Non-Af Amer) BUN/Creatinine Ratio (10-20) Glucose (70-99) mg/dl POC Glucose 193 H (70-99) Calcium (8.5-10.1) mg/dl Magnesium (1.8-2.4) mg/dl Total Bilirubin (0.2-1) mg/dl AST (15-37) U/L ALT (12-78) U/L Alkaline Phosphatase (45-117) U/L Troponin I 0.183 H* (0-0.045) ng/ml Total Protein (6.4-8.2) gm/dl Albumin (3.4-5.0) gm/dl Globulin (2.5-4.0) gm/dl Albumin/Globulin Ratio (0.9-2) Lipase (73-393) U/L Beta-Hydroxybutyric Acd (0.2-2.81) mg/dl TSH (0.300-4.500) uIu/ml Urine Color Yellow Urine Appearance Clear (Clear) Urine pH 5.5 (4.5-7.5) Ur Specific [place] > 1.045 H (1.000-1.030) Urine Protein Negative (Negative) Urine Glucose (UA) 2+ H (Negative) Urine Ketones Negative (Negative) Urine Blood Negative (Negative) Urine Nitrite Negative (Negative) Urine Bilirubin Negative (Negative) Urine Urobilinogen Negative (Negative) Ur Leukocyte Esterase Negative (Negative) 02/28/19 02/28/19 02/28/19 Range/Units 07:34 11:30 16:26 WBC (4.8-10.8) K/uL RBC (4.2-5.4) M/uL Hgb (12.0-16.0) g/dL Hct (37-47) % MCV (80-100) fL MCH (25-34) pg MCHC (32-36) g/dL RDW Std Deviation (36.4-46.3) fL RDW Coeff of Rolan (11.5-14.5) % Plt Count (130-400) K/uL MPV (7.4-10.4) fL Immature Gran % (Auto) % Neut % (Auto) % Lymph % (Auto) % [place] % (Auto) % Eos % (Auto) % Baso % (Auto) % Immature Gran # (Auto) (0.00-0.02) K/uL Neut # (Auto) (1.4-6.5) K/uL Lymph # (Auto) (1.2-3.4) K/uL [place] # (Auto) (0.11-0.59) K/uL Eos # (Auto) (0-0.5) K/uL Baso # (Auto) (0-0.2) K/uL APTT (21.0-31.0) Seconds PTT Ratio Sodium (136-145) mmol/L Potassium (3.5-5.1) mmol/L Chloride (98-107) mmol/L Carbon Dioxide (21-32) mmol/L Anion Gap (3-11) BUN (7-18) mg/dl Creatinine (0.6-1.2) mg/dl Est Cr Clr Drug Dosing ml/min Est GFR ( Amer) Est GFR (Non-Af Amer) BUN/Creatinine Ratio (10-20) Glucose (70-99) mg/dl POC Glucose 135 H 193 H 142 H (70-99) Calcium (8.5-10.1) mg/dl Magnesium (1.8-2.4) mg/dl Total Bilirubin (0.2-1) mg/dl AST (15-37) U/L ALT (12-78) U/L Alkaline Phosphatase (45-117) U/L Troponin I (0-0.045) ng/ml Total Protein (6.4-8.2) gm/dl Albumin (3.4-5.0) gm/dl Globulin (2.5-4.0) gm/dl Albumin/Globulin Ratio (0.9-2) Lipase (73-393) U/L Beta-Hydroxybutyric Acd (0.2-2.81) mg/dl TSH (0.300-4.500) uIu/ml Urine Color Urine Appearance (Clear) Urine pH (4.5-7.5) Ur Specific [place] (1.000-1.030) Urine Protein (Negative) Urine Glucose (UA) (Negative) Urine Ketones (Negative) Urine Blood (Negative) Urine Nitrite (Negative) Urine Bilirubin (Negative) Urine Urobilinogen (Negative) Ur Leukocyte Esterase (Negative) Imaging Data Attestation: I personally reviewed and interpreted this imaging study as follows: Radiologist's Impression: CHEST X-RAY: Cardiomegaly observed. There is some congestive changes noted without acute failure. There is a defrillatory noted. ECG Data Attestation: I personally reviewed and interpreted this ECG as follows: Indication: chest pain Rate (beats per minute): 96 Rhythm: normal sinus Findings: + other (LVH, repolarization abnormality, QTC is 452); no ST de pression, no ST elevation and no acute ischemic change Blood Pressure Blood Pressure Findings: Elevated blood pressure Blood Pressure Disposition: further management by hospitalist KRISTY Swann This pt was evaluated and appeared to be in no distress. Pt is anxious. IV access was obtained and lab work was drawn. Pt was given ASA 324 mg po and NTG SL for CP. She did require ativan 1 mg SL prior to IV start. CXR is negative for acute abnl. EKG reveals NSR with LVH and repolarization abnl. Trop is noted to be elevated, but is a chronic issue. A repeat trop was ordered 90 min later and found to be trending up. Pt was d/w the hospitalist service. She will be evaluted for furhter management. Impression & Plan Chest pain, Elevated troponin Discharge Plan Visit Data *Final* Discharge Date/Time: 02/28/19 04:45 Chief Complaint: Chest Pain Stated Complaint: CHEST PAIN- CARDIAC HX ED Provider: Padmaja Weir Discharge Problem: Chest pain, Elevated troponin Patient Disposition: Admitted As Inpatient Discharge Instructions Interventions: ED Discharge Assessment Last Done: 02/28/19 04:45 Discharge Problem: Chest pain Qualifiers: Chest pain type: unspecified Qualified Code(s): R07.9 - Chest pain, unspecified The scribe's documentation has been prepared under my direction and personally reviewed by me in its entirety. I confirm that the note above accurately reflects all work, treatment, procedures, and medical decision making performed by me.
[2019-02-28] MEDS ORDERED: SODIUM CHLORIDE 0.9% 1000ML 1,000 ML IV ONE (05:30)
[2019-02-28] MEDS ORDERED: INSULIN GLARGINE SOLOSTAR 100 UNITS/ML 3 ML PEN SC SCH ×2 (06:00→09:00)
[2019-02-28] MEDS: INSULIN ASPART 100 UNITS/ML 3 ML PEN SC SCH ×3 (06:07→12:17)
--- NOTE | 2019-02-28 06:35 | XRay Report ---
XR chest 1V portable HISTORY: 59 years-old Female Chest Pain acute atypical chest pain COMPARISON: CTA chest of same day, chest radiograph 02/16/2019 TECHNIQUE: Portable AP view of the chest FINDINGS: Right pectoral pacer/AICD redemonstrated. The heart is enlarged, unchanged. There is no pneumothorax, large pleural effusion or overt pulmonary edema. Suggestion of mild pulmonary vascular congestion. N o lobar airspace consolidation. Suggestion of a trace left pleural effusion. Degenerative changes of the shoulders and spine. IMPRESSION: 1. Cardiomegaly without acute process. 2. Trace left pleural effusion. The above report was generated using voice recognition software. It may contain grammatical, syntax o r spelling errors. Electronically signed by: Vidal Jay M.D. 02/28/2019 6:34 AM
[2019-02-28 06:43] LABS: Appearance Urine Clear (Clear); Bilirubin Urine Negative (Negative); Blood Urine Negative (Negative); Color Urine Yellow; Glucose Urine UA 2+ (Negative); Ketones Urine Negative (Negative); Leukocyte Esterase Urine Negative (Negative); Nitrite Urine Negative (Negative); Protein Urine Negative (Negative); Specific Gravity Urine > 1.045 (1.000-1.030); Urobilinogen Urine Negative (Negative); pH Urine 5.5 (4.5-7.5)
--- NOTE | 2019-02-28 06:49 | XRay Report ---
XR shoulder RT min 2V routine CLINICAL HISTORY: Right shoulder pain COMPARISON: None. DISCUSSION: There is a right subclavian pacemaker. No fractures or dislocations are visualized. There are no visible periarticular calcifications. IMPRESSION: No fractures or dislocations identified. Electronically signed by: Dino Spann M.D. 02/28/2019 6:48 AM
--- NOTE | 2019-02-28 07:41 | CT Scan Report ---
CT angio chest dissec wo/w con HISTORY: 59 years-old Female cp/shoulder blade pain acute atypical chest pain with radiation into th e back COMPARISON: CTA of the chest 08/08/2018 TECHNIQUE: CTA of the chest both with and without the use of 118 mL Optiray 320 IV contrast was obtai shabbir with 3-D coronal and sagittal MIPS. All measurements were obtained according to NASCET criteria. A dose lowering technique was used consistent with the principals of PAO. FINDINGS: CTA: Cardiomegaly with left ventricular hypertrophy. Right subclavian pacer noted with leads overlying th e right heart. Coronary arterial calcifications are noted. No thoracic aortic aneurysm or dissection. The noncontrast study in straight no intramural hematoma. Patency of the imaged great vessels. There is mild dilation of the main pulmonary artery. The pulmonary arterial tree is opacified to level of the subsegmental branches and demonstrates no focal filling defects to suggest pulmonary thromboembol ic disease. CT CHEST: No dominant thyroid nodule. Mildly enlarged 1.5 x 1.0 cm subcarinal lymph node, nonspecific. Mildly p rominent paratracheal lymph nodes are also unchanged. Trace left pleural effusion. Dependent subsegme ntal bibasilar opacities suggest atelectasis. Unchanged 5 mm solid nodule of the basal left lower lob e, image 207 series 7. This lesion is stable dating back to 01/09/2017 suggestive of benign etiology. Calcific granuloma of the lingula, 3 mm. Mild intralobular septal thickening of the imaged upper lung zones. Mild bilateral mosaic attenuation with areas of bronchial wall thickening. Central airways ar e patent. No acute process of the imaged upper abdomen. Soft tissues are within normal limits. The bones appear to be intact. IMPRESSION: 1. No evidence of acute aortic pathology or evidence of pulmonary thromboembolic disease. 2. Trace left pleural effusion with subsegmental bibasilar opacities suggestive of atelectasis. 3. Cardiomegaly. 4. Mild mediastinal adenopathy, unchanged. 5. Additional findings as above The above report was generated using voice recognition software. It may contain grammatical, syntax o r spelling errors. Electronically signed by: Vidal Jay M.D. 02/28/2019 7:39 AM
[2019-02-28] MEDS: GABAPENTIN 600 MG TAB PO SCH ×2 (07:51→14:31)
[2019-02-28] MEDS ORDERED: PANTOprazole 40 MG TAB PO SCH ×2 (09:00)
[2019-02-28] MEDS ORDERED: ATORVASTATIN 40 MG TAB PO SCH (09:00)
[2019-02-28] MEDS ORDERED: ENOXAPARIN INJ 40 MG/0.4 ML SYR SQ SCH (09:00)
[2019-02-28] MEDS ORDERED: FLUTICASONE/SALMETEROL (ADVAIR) 500/50 INH 14 PUFF INH SCH (09:00)
[2019-02-28] MEDS ORDERED: DULOXETINE HCL 60 MG CAP PO SCH (11:30)
--- NOTE | 2019-02-28 15:20 | Hospitalist Progress Note ---
Date of Service February 28, 2019 Assessment & Plan (1) Chest pain: Likely musculoskeletal Reproducible, Right sided Chronic troponin elevation CTA: No evidence of acute aortic pathology or evidence of pulmonary thromboembolic disease. Trace left pleural effusion with subsegmental bibasilar opacities suggestive of atelectasis. Cardiomegaly. Mild mediastinal adenopathy, unchanged. Shoulder X ray: No fractures or dislocations identified. EKG: No significant change from prior Recent Cardiac cath in Dec: Moderate CAD Advised follow up with Cardiology upon discharge Chest Pain improved Continue Aspirin, Lipitor, Metoprolol Chronic diastolic heart failure: Patient euvolemic Continue home diuretics Hypertension Stable Continue home meds HOCM family h/o sudden cardiac S/P ICD placement Pacemaker site check as outpatient DM II: Hb 8.1 Hold PO meds Continue ISS, basal Insulin Mood disorder Stable Continue home meds Ongoing diarrhea: No diarrhea today FU with GI as outpatient Denies abdominal pain, nausea, vomiting Dysuria UA not suggestive of UTI Sleep Apnea: Does',t tolerate CPAP Plans to get surgery COPD: No signs of exacerbation continue home inhalers DVT Px: Lovenox SQ Code Status Full code Subjective Patient is seen and examined at bedside States right sided chest pain has improved--only minimal discomfort on palpatation No diarrhea today Chronic intermittent cough which is unchanged UA not suggestive of UTI Denies shortness of breath, abd pain, dizziness Plan to discharge home today Physical Exam Vital Signs (Past 24 Hours): Last Vital Signs Temp 36.6 C 02/28/19 07:00 Pulse 76 02/28/19 07:00 Resp 18 02/28/19 07:00 BP 145/88 H 02/28/19 07:00 Pulse Ox 94 02/28/19 07:00 Physical Exam: Physical Exam: Vitals signs as noted above General Appearance:Obese, no apparent distress Head: normocephalic, Atraumatic Eyes: normal inspection, EOMI Neck: supple, Trachea midline Respiratory/Chest: Normal breath sounds, CTA, No accessory muscle use Chest: Tender on palpation right side; +pacemaker Cardiovascular: S1, S2, No murmur Abdomen/GI:Soft, Non tender, Bowel sounds present Extremities/Musculoskelatal:normal inspection, no edema Neurologic/Psych:AAOX3, grossly no focal neurological deficits Skin: normal color, warm Results & Data Laboratory Results Short CBC 02/28/19 Range/Units 00:04 WBC 8.52 (4.8-10.8) K/uL Hgb 11.9 L (12.0-16.0) g/dL Hct 35.6 L (37-47) % Plt Count 193 (130-400) K/uL BMP 02/28/19 00:04 Sodium 140 Potassium 4.3 Chloride 109 H Carbon Dioxide 25 BUN 15 Creatinine 1.10 Glucose 337 H Calcium 8.7 Cardiac Enzymes 02/28/19 02/28/19 02/28/19 Range/Units 00:04 01:59 06:10 Troponin I 0.142 H* 0.158 H* 0.183 H* (0-0.045) ng/ml Liver Function 02/28/19 Range/Units 00:04 Total Bilirubin 0.3 (0.2-1) mg/dl AST 23 (15-37) U/L ALT 31 (12-78) U/L Alkaline Phosphatase 158 H (45-117) U/L Albumin 3.4 (3.4-5.0) gm/dl Urine 02/28/19 Range/Units 06:20 Urine Color Yellow Urine Appearance Clear (Clear) Urine pH 5.5 (4.5-7.5) Ur Specific [place] > 1.045 H (1.000-1.030) Urine Protein Negative (Negative) Urine Glucose (UA) 2+ H (Negative) Diagnostic Findings CTA: Findings are most atypical for pyelonephritis of the right kidney as detailed above. Correlation with clinical findings and urinalysis will be required. 2. There is heterogeneous perfusion of the right kidney with a 1.2 cm low-attenuation focus in the right upper pole. This may represent developing phlegmon. No organized fluid collection is seen at this time to indicate abscess 3. The left kidney is normal in appearance. 4. There is trace nonspecific free fluid in the cul-de-sac and a dominant follicle noted in the left ovary. 5. The appendix is well-visualized and normal. Right Shoulder X ray: No fractures or dislocations identified. (1) Chest pain Chest pain type: unspecified Qualified Code(s): R07.9 - Chest pain, unspecified
--- NOTE | 2019-02-28 15:48 | Discharge Summary ---
Date of Service February 28, 2019 Admission HPI Per Admitting Provider History obtained from patient, , and records. Medical history significant for CAD, chronic diastolic heart failure (EF 70%, TTE 2019), hypertension, HOCM, family history sudden cardiac sp ICD placement, DM2 insulin requiring, sleep apnea, restless leg syndrome as per records, bowel perforation status post surgery, mood disorder. Recent confinement 2 weeks ago for decompensated heart failure, UTI. Patient seen at PCP's office 3 days ago for hospital discharge follow-up. Patient complaining of dysuria, loose stools. Outpatient UA negative. No abdominal pain, no nausea, no emesis. Patient was sitting down last night when she noted pleuritic right-sided chest pain going to the right shoulder blade and upper back. Some shortness of breath, no cough. No recollection of recent trauma, exertion. Minimal relief with nitroglycerin given at the ER. Admission Exam Per Admitting Provider GENERAL: Anxious, uncomfortable, obese, no respiratory distress SKIN: Normal color, warm HEENT: [place] palpebral conjunctivae, no ptosis, dry buccal mucosa NECK : Supple, short neck, no tenderness CHEST : CTA, right chest wall tenderness HEART : RRR, no obvious murmurs ABDOMEN: Some distention, nontender EXTREMITIES : No LE swelling/tenderness, right shoulder tenderness NEUROLOGIC : Coherent, no facial asymmetry, no other gross focality Principal Diagnosis Discharge Information Discharge Diagnosis Chest Pain Discharge Goals Decrease discomfort,Improve function,Improve disease control Discharge Activity Limitations Resume your previous acti Discharge Data Allergies Allergy/AdvReac Type Severity Reaction Status Date / Time Penicillins Allergy Intermediate Flushing, Verified 02/27/19 23:37 ITCHING Sulfa (Sulfonamide Allergy Intermediate swelling Verified 02/27/19 23:37 Antibiotics) doxycycline Allergy Unknown UNKNOWN Verified 02/27/19 23:37 adhesive AdvReac Intermediate blistering Verified 02/27/19 23:37 Consultations 02/28/19 02:36 ED Decision to Admit Stat Procedures Performed CTA: 1. No evidence of acute aortic pathology or evidence of pulmonary thromboembolic disease. 2. Trace left pleural effusion with subsegmental bibasilar opacities suggestive of atelectasis. 3. Cardiomegaly. 4. Mild mediastinal adenopathy, unchanged. 5. Additional findings as above R shoulder X ray: No fractures or dislocations identified. Ordered Studies 02/28/19 03:25 CT angio chest dissec wo/w con Urgent Hospital Course (1) Chest pain: Likely musculoskeletal Reproducible, Right sided Chronic troponin elevation CTA: No evidence of acute aortic pathology or evidence of pulmonary thromboembolic disease. Trace left pleural effusion with subsegmental bibasilar opacities suggestive of atelectasis. Cardiomegaly. Mild mediastinal adenopathy, unchanged. Shoulder X ray: No fractures or dislocations identified. EKG: No significant change from prior Recent Cardiac cath in Dec: Moderate CAD Advised follow up with Cardiology upon discharge Chest Pain improved Continue Aspirin, Lipitor, Metoprolol Chronic diastolic heart failure: Patient euvolemic Continue home diuretics Hypertension Stable Continue home meds HOCM family h/o sudden cardiac S/P ICD placement Pacemaker site check as outpatient DM II: Hb 8.1 Hold PO meds Continue ISS, basal Insulin Mood disorder Stable Continue home meds Ongoing diarrhea: No diarrhea today FU with GI as outpatient Denies abdominal pain, nausea, vomiting Dysuria UA not suggestive of UTI Sleep Apnea: Does',t tolerate CPAP Plans to get surgery COPD: No signs of exacerbation continue home inhalers DVT Px: Lovenox SQ Code Status Full code Total Time Total Time Spent Total Time Spent (In Minutes): 28 minutes Total Time Includes: Examination of the Patient, Discharge Planning, Medication Reconciliation and Other Discharge Plan Discharge Items Patient Disposition: Home - Self-Care Reason For Visit: CHEST PAIN Discharge Diagnosis: Chest Pain Discharge Goals: Decrease discomfort, Improve disease control and Improve function Activity: Resume your previous activity Exercise/Sports: Gradually increase as tolerated Non-emergency contact: Primary Care Provider and [employer] Merchandiser Lead Call non-emergency contact if: you have any medication questions, your symptoms worsen, your pain is not controlled, your pain is worsening, your pain is unusual for you and your pain is concerning for you Follow-up/Referrals: Suad De León DO [Primary Care Provider] - Diet: Carb Consistent or DM2, Heart Healthy and Low Sodium (2gm) Addtl Provider Instructions: Follow up with your PCP on 03/04/19 at 10:15 am Follow up with your Retail Coverage Merchandiser Lead on March 17, 2019 at 10:15AM Seek immediate medical attention if your symptoms reoccur or worsen Prescriptions: Continued duloxetine 60 mg Capsule,Delayed Release(Dr/Ec) 60 mg PO QDL RF: 0 mirtazapine 30 mg Tablet 30 mg PO HS RF: 0 omeprazole 40 mg Capsule,Delayed Release(Dr/Ec) 40 mg PO QAM RF: 0 folic acid 1 mg Tablet 1 mg PO HS RF: 0 sumatriptan succinate 25 mg Tablet 50 mg PO DIRECTED PRN (Reason: Headache) RF: 0 metformin 500 mg Tablet 1,000 mg PO BIDM RF: 0 atorvastatin 40 mg Tablet 40 mg PO QAM Qty: 30 RF: 0 metoprolol succinate 50 mg Tablet Extended Release 24 Hr 100 mg PO BID Qty: 60 RF: 0 nitroglycerin [Nitrostat] 0.4 mg Tablet, Sublingual 0.4 mg sublingual UD PRN (Reason: chest pain) Qty: 30 RF: 0 gabapentin 600 mg Tablet 600 mg PO TID Qty: 90 RF: 0 aspirin [Ecotrin Low Strength] 81 mg Tablet,Delayed Release (Dr/Ec) 81 mg PO DAILY Qty: 30 RF: 0 spironolactone 25 mg Tablet 12.5 mg PO DAILY Qty: 30 RF: 0 ropinirole 0.25 mg Tablet 0.5 mg PO HS Qty: 60 RF: 0 polyethylene glycol 3350 [Miralax] 17 gram Powder In Packet 17 g PO DAILY PRN (Reason: constipation) Qty: 10 RF: 0 pantoprazole 40 mg Tablet,Delayed Release (Dr/Ec) 40 mg PO QAM Qty: 30 RF: 0 Lantus Solostar U-100 Insulin 100 unit/mL (3 mL) Insulin Pen 14 unit SC BID Qty: 15 RF: 0 fluticasone propion-salmeterol [Advair Diskus] 500-50 mcg/dose Blister With Device 1 puff inhalation BID Qty: 2 RF: 0 montelukast 10 mg Tablet 10 mg PO PM Qty: 30 RF: 0 cefuroxime axetil 500 mg Tablet 500 mg PO BID RF: 0 albuterol sulfate 2.5 mg /3 mL (0.083 %) solution for nebulization 3 ml Inhalation Q4H PRN (Reason: Wheezing) RF: 0 furosemide [Lasix] 40 mg Tablet 40 mg PO 5XWK RF: 0 ondansetron HCl [Zofran] 4 mg Tablet 4 mg PO TID PRN (Reason: Nausea) RF: 0 diphenoxylate-atropine [Lomotil] 2.5-0.025 mg Tablet 1 tab PO QID PRN (Reason: Diarrhea) RF: 0 furosemide 40 mg Tablet 80 mg PO 2XWK RF: 0 Stand-Alone Forms: Call Back Authorization, [facility] Discharge Orders: Discharge Order (Routine); Ordered 02/28/19 Ordered By: Ned Carroll Admission Data Admit Date/Time: 02/28/19 04:33 Attending Provider: Ned Carroll Admit Provider: González Carter Primary Care Provider: Suad De León Other Providers: Goznález Carter Service: Telemetry Medical Other Interventions: Discharge Summary Assessment (RN) Last Done: 02/28/19 16:41 Pending Studies at Discharge: No DC Date/Time DO NOT enter until pt leaves facility: 02/28/19 17:38
[2019-02-28] MEDS ORDERED: ROPINIROLE HCL 0.25 MG TABLET PO SCH (21:00)
[2019-02-28] MEDS ORDERED: MIRTAZAPINE TAB 15 MG TAB PO SCH (21:00)
[2019-02-28] MEDS ORDERED: FOLIC ACID 1 MG TAB PO SCH (21:00)
[2019-02-28] MEDS ORDERED: MONTELUKAST SODIUM 10 MG TABLET PO SCH (21:00)
[2019-03-01] MEDS ORDERED: ASPIRIN 81 MG ECTAB PO SCH (09:00)
== END 2019-02-28 17:38 | disposition home or self-care (01) ==
LOC: ED 22:54 → 2W 22:54

== ENCOUNTER 2019-05-14 21:45 | Inpatient (IN) ==
[2019-05-14] MEDS ORDERED: LORazepam 1 MG TAB SL STA (22:08)
[2019-05-14] MEDS ORDERED: SODIUM CHLORIDE 0.9% 500 ML IV SCH (22:15)
--- NOTE | 2019-05-14 22:40 | XRay Report ---
XR chest 1V portable CLINICAL HISTORY: weakness COMPARISON STUDY: Chest CT February 28, 2019. FINDINGS: Lung volumes are normal. Lungs are clear. There is no pneumothorax or pleural effusion. Car diac size is unchanged. Mediastinal contours are normal. There is no evidence for pulmonary edema. Du al lead right subclavian pacer/AICD remains in place IMPRESSION: No acute cardiopulmonary findings. No change in appearance of the chest. Electronically signed by: Phil Devries M.D. 05/14/2019 10:39 PM
[2019-05-14 23:03] LABS: iSTAT Blood Urea Nitrogen 31 mg/dl (7-18); iSTAT Carbon Dioxide 25 mEq/l (24-31); iSTAT Chloride 86 mEq/L (101-112); iSTAT Creatinine 1.6 mg/dl (0.6-1.3); iSTAT Glucose > 700 mg/dl (70-99); iSTAT Hematocrit 45 % (37-47); iSTAT Hemoglobin 15.3 g/dl (12.0-16.0); iSTAT Ionized Calcium 1.15 mmol/l (1.12-1.32); iSTAT Potassium 4.5 mEq/L (3.3-5.0); iSTAT Sodium 125 mEq/L (135-144)
[2019-05-14 23:13] LABS: Appearance Urine Clear (Clear); Bilirubin Urine Negative (Negative); Blood Urine Negative (Negative); Color Urine Yellow; Glucose Urine UA 3+ (Negative); Ketones Urine Negative (Negative); Leukocyte Esterase Urine Negative (Negative); Nitrite Urine Negative (Negative); Protein Urine Negative (Negative); Specific Gravity Urine 1.032 (1.000-1.030); Urobilinogen Urine Negative (Negative)
[2019-05-14] MEDS ORDERED: HHS GOAL RANGE 250-350 mg/dl ONE (23:22)
[2019-05-14] MEDS ORDERED: MODERATE STRESS LEVEL ONE (23:22)
[2019-05-14] MEDS ORDERED: SODIUM CHLORIDE 0.9% 1000ML 500 ML IV ONE (23:22)
[2019-05-14 23:39] LABS: Albumin Level 3.7 gm/dl (3.4-5.0); BUN Creatinine Ratio 13.4 (10-20); Bilirubin,Total 0.5 mg/dl (0.2-1); Calcium 9.1 mg/dl (8.5-10.1); Creatinine Clr Calc Pharmacy 24.2 ml/min; Est GFR (African American) 30.1; Globulin 3.6 gm/dl (2.5-4.0); Potassium 4.3 mmol/L (3.5-5.1); Total Protein 7.3 gm/dl (6.4-8.2); Troponin I 0.105 ng/ml (0-0.045)
[2019-05-14] MEDS: INSULIN REGULAR 250 UNITS in SODIUM CHLORIDE 0.9% 247.5 ML IV SCH (23:59)
[2019-05-15 00:04] LABS: Eosinophils # (auto) 0.15 K/uL (0-0.5); Eosinophils % (auto) 1.5 %; Hematocrit (blood only) 40.5 % (37-47); Hemoglobin 14.7 g/dL (12.0-16.0); Lymphocytes # (auto) 1.19 K/uL (1.2-3.4); Lymphocytes % (auto) 12.2 %; Mean Corpuscular Hgb Conc 36.3 g/dL (32-36); Mean Corpuscular Volume 83.2 fL (80-100); Monocytes # (auto) 0.49 K/uL (0.11-0.59); Neutrophils % (auto) 81.3 %; Platelet Count 192 K/uL (130-400); RBC Morphology Unremarkable; Red Blood Count 4.87 M/uL (4.2-5.4); White Blood Count 9.73 K/uL (4.8-10.8)
--- NOTE | 2019-05-15 00:50 | Emergency Department Note ---
Entered by Sadaf Benítez acting as a scribe for Channing Jennings MD History of Present Illness General Chief complaint: Hyperglycemia Stated complaint: HIGH BLOOD SUGAR Time Seen by Provider: 05/14/19 21:57 Source: patient History of Present Illness Onset (ago): hour(s) (earlier today) Location: genitals (hyperglycemia) Pain Consistency: + constant Maximum Pain Intensity: 5 Relieved By: + none Associated symptoms: + denies other symptoms (abdominal pain), + weakness and + other (increased urination) The patient is a 59 year old F who presents to the Emergency Room with complaints of constant hyperglycemia that started earlier today. She states that she has a history of diabetes. She denies that she is on insulin for her diabetes. She notes that she talked with her rip machine operator, Dr. Estrella, today who referred her to the ED. She denies being on any steroids. She states that she is currently experiencing weakness and increased urination. She denies experiencing any abdominal pain. She adds that she has a history of heart issues. Home Medications Home Medications Medication Instructions Recorded Confirmed Type duloxetine 60 mg PO QDL 08/09/18 05/14/19 History folic acid 1 mg PO HS 08/09/18 05/14/19 History mirtazapine 30 mg PO HS 08/09/18 05/14/19 History omeprazole 40 mg PO QAM 08/09/18 05/14/19 History sumatriptan succinate 50 mg PO DIRECTED PRN 08/09/18 05/14/19 History metformin 1,000 mg PO BIDM 08/12/18 05/14/19 History albuterol sulfate 3 ml INHALATION Q4H PRN 09/09/18 05/14/19 History furosemide [Lasix] 40 mg PO 5XWK 11/28/18 05/14/19 History furosemide 80 mg PO 2XWK 12/03/18 05/14/19 History diphenoxylate-atropine [Lomotil] 1 tab PO QID PRN 12/19/18 05/14/19 History ondansetron HCl [Zofran] 4 mg PO TID PRN 12/19/18 05/14/19 History atorvastatin 40 mg PO QAM #30 tab 02/19/19 05/14/19 Rx fluticasone propion-salmeterol 1 puff INHALATION BID #2 ea 04/03/19 06/26/19 Rx [Advair Diskus] gabapentin 600 mg PO TID #90 tab 02/19/19 05/14/19 Rx metoprolol succinate 100 mg PO BID #60 tab 02/19/19 05/14/19 Rx nitroglycerin [Nitrostat] 0.4 mg SUBLINGUAL UD PRN #30 tab 02/19/19 05/14/19 Rx pantoprazole 40 mg PO QAM #30 tab 02/19/19 05/14/19 Rx ropinirole 0.5 mg PO HS #60 tab 02/19/19 05/14/19 Rx aspirin [Ecotrin Low Strength] 81 mg PO QAM 04/12/19 05/14/19 History montelukast 10 mg PO HS 04/12/19 05/14/19 History spironolactone 12.5 mg PO QAM 04/12/19 05/14/19 History Allergies Allergy/AdvReac Type Severity Reaction Status Date / Time Penicillins Allergy Intermediate Flushing, Verified 05/14/19 23:29 ITCHING Sulfa (Sulfonamide Allergy Intermediate swelling Verified 05/14/19 23:29 Antibiotics) doxycycline Allergy Unknown UNKNOWN Verified 05/14/19 23:29 adhesive AdvReac Intermediate blistering Verified 05/14/19 23:29 ibuprofen AdvReac Unknown PER MD BC Verified 05/14/19 23:29 TOLD PT NOT TO TAKE ANYMORE. 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 and A total of 10 systems reviewed and were otherwise negative Physical Exam Vital Signs Vital Signs - 24 hr 05/14/19 21:50 05/14/19 23:25 Temperature 36.8 C Temperature Source Oral Sepsis Recent Fever Within 48 Hours No Sepsis Action Taken by Nursing No Action Required Pulse Rate 69 Pulse Rate [Right Finger] 71 Pulse Rhythm [Right Finger] Regular Pulse Strength [Right Finger] Normal Respiratory Rate 18 18 Respiratory Effort / Characteristics Non-Labored Spontaneous Non-Labored Respiratory Depth Normal Normal Respiratory Pattern Regular Regular Blood Pressure 101/64 Blood Pressure [Right Arm] 119/76 Blood Pressure Mean 76 Blood Pressure Mean [Right Arm] 90 Blood Pressure Position Sitting Blood Pressure Position [Right Arm] Lying Pulse Oximetry 97 98 Oxygen Delivery Method Room Air Nasal Cannula GENERAL: Awake, alert, well-appearing, in no acute distress HENT: Normocephalic, atraumatic. Oropharynx unremarkable. EYES: Normal conjunctiva. Sclera non-icteric. NECK: Supple. No nuchal rigidity. FROM. No JVD. RESPIRATORY: Clear to auscultation. CARDIAC: Regular rate, normal rhythm. Extremities warm and well perfused. Pulses equal. ABDOMEN: Soft, non-distended. No tenderness to palpation. No rebound or guarding. No masses. RECTAL: Deferred. MUSCULOSKELETAL: Chest examination reveals no tenderness. The back is symmetrical on inspection without obvious abnormality. There is no CVA tenderness to palpation. No joint edema. LOWER EXTREMITIES: Calves are equal size bilaterally and non-tender. No edema. No discoloration. NEURO: Normal sensorium. No sensory or motor deficits noted. SKIN: No rash or jaundice noted. Course 2203: The patient was evaluated in room B4B. A complete history and physical exam was performed. 2330: I reviewed the patient's case with Dr. Mayberry [facility]. He will evaluate the patient for further management. Consultations Consultation #1: I reviewed the patient's case with Dr. Mayberry [facility] talist. He will evaluate the patient for further management. Time: 23:30 Administered Medications Acetaminophen (Tylenol) 650 mg PO Q4H PRN PRN Reason: Pain or Fever Stop: 06/14/19 01:02 Last Admin: 05/15/19 21:36 Dose: 650 mg Documented by: [id number] Aspirin (Ecotrin Ectab) 81 mg PO [facility] Stop: 06/14/19 08:59 Last Admin: 05/15/19 08:09 Dose: 81 mg Documented by: [id number] Atorvastatin Calcium (Lipitor) 40 mg PO [facility] Stop: 06/14/19 08:59 Last Admin: 05/15/19 08:08 Dose: 40 mg Documented by: [id number] Duloxetine HCl (Cymbalta) 60 mg PO QDL [facility] Stop: 06/14/19 11:29 Last Admin: 05/15/19 10:42 Dose: 60 mg Documented by: [id number] Folic Acid (Folvite) 1 mg PO HS [facility] Stop: 06/14/19 20:59 Last Admin: 05/15/19 21:27 Dose: 1 mg Documented by: [id number] Gabapentin (Neurontin) 600 mg PO TID [facility] Stop: 06/14/19 08:59 Last Admin: 05/15/19 21:24 Dose: 600 mg Documented by: [id number] Admin: 05/15/19 14:24 Dose: Not Given Documented by: [id number] Admin: 05/15/19 08:08 Dose: 600 mg Documented by: [id number] Heparin Sodium (Porcine) (Heparin Sodium (Porcine)) 5,000 units SQ Q12 [facility] Stop: 06/14/19 20:59 Last Admin: 05/15/19 21:27 Dose: 5,000 units Documented by: [id number] Cosigned by: [id number] Potassium Chloride/Sodium Chloride (Normal Saline W/20 Meq Kcl) 20 meq in 1,000 mls @ 125 mls/hr IV .Q8H [facility]E Stop: 06/14/19 01:29 Last Admin: 05/16/19 01:20 Dose: 125 mls/hr Documented by: [id number] Infusion: 05/16/19 01:20 Dose: 125 mls/hr Documented by: [id number] Admin: 05/15/19 17:36 Dose: 125 mls/hr Documented by: [id number] Infusion: 05/15/19 17:16 Dose: 125 mls/hr Documented by: [id number] Admin: 05/15/19 09:16 Dose: 125 mls/hr Documented by: [id number] Infusion: 05/15/19 09:16 Dose: 125 mls/hr Documented by: [id number] Admin: 05/15/19 03:51 Dose: 125 mls/hr Documented by: [id number] Insulin Aspart (Novolog Flexpen) 0 units SC ACHS [facility]E Stop: 06/14/19 16:29 Last Admin: 05/15/19 21:23 Dose: 4 units Documented by: [id number] Cosigned by: [id number] Admin: 05/15/19 17:40 Dose: 8 units Documented by: [id number] Cosigned by: [id number] Metoprolol Succinate (Toprol Xl) 100 mg PO BID [facility] Stop: 06/14/19 08:59 Last Admin: 05/15/19 21:25 Dose: 100 mg Documented by: [id number] Admin: 05/15/19 08:08 Dose: 100 mg Documented by: [id number] Mirtazapine (Remeron) 30 mg PO [facility] Stop: 06/14/19 20:59 Last Admin: 05/15/19 21:26 Dose: 30 mg Documented by: [id number] Montelukast Sodium (Singulair) 10 mg PO [facility] Stop: 06/14/19 20:59 Last Admin: 05/15/19 21:27 Dose: 10 mg Documented by: [id number] Nystatin (Mycostatin) 5 ml PO QID [facility] Stop: 05/25/19 08:59 Last Admin: 05/15/19 21:28 Dose: 5 ml Documented by: [id number] Admin: 05/15/19 17:40 Dose: 5 ml Documented by: [id number] Admin: 05/15/19 12:02 Dose: 5 ml Documented by: [id number] Admin: 05/15/19 08:09 Dose: 5 ml Documented by: [id number] Pantoprazole Sodium (Protonix) 40 mg PO QAM [facility] Stop: 06/14/19 08:59 Last Admin: 05/15/19 08:09 Dose: 40 mg Documented by: [id number] Ropinirole HCl (Requip) 0.5 mg PO [facility] Stop: 06/14/19 20:59 Last Admin: 05/15/19 21:26 Dose: 0.5 mg Documented by: [id number] Fluticasone/Salmeterol (Advair Diskus 500/50) 1 puffs INH BID [facility] Stop: 06/14/19 08:59 Last Admin: 05/15/19 21:21 Dose: Not Given Documented by: [id number] Admin: 05/15/19 08:10 Dose: 1 puffs Documented by: [id number] Discontinued Medications Sodium Chloride (Nss) 500 mls @ 999 mls/hr IV .Q31M [facility] Stop: 05/14/19 22:45 Last Infusion: 05/15/19 00:47 Dose: 0 mls/hr Documented by: [id number] Admin: 05/14/19 22:58 Dose: 999 mls/hr Documented by: [id number] Insulin Human Regular 250 (units/ Sodium Chloride) 250 mls @ 2.4 mls/hr IV .Q24H MARILEE; Protocol Stop: 06/13/19 23:29 Last Titration: 05/15/19 21:30 Dose: 0 units/hr, 0 mls/hr Documented by: [id number] Cosigned by: [id number] Titration: 05/15/19 19:15 Dose: 2.4 units/hr, 2.4 mls/hr Documented by: [id number] Cosigned by: [id number] Titration: 05/15/19 18:00 Dose: 1.7 units/hr, 1.7 mls/hr Documented by: [id number] Cosigned by: [id number] Titration: 05/15/19 17:37 Dose: 0 units/hr, 0 mls/hr Documented by: [id number] Cosigned by: [id number] Titration: 05/15/19 16:39 Dose: 2.8 units/hr, 2.8 mls/hr Documented by: [id number] Cosigned by: [id number] Titration: 05/15/19 15:35 Dose: 2.8 units/hr, 2.8 mls/hr Documented by: [id number] Cosigned by: [id number] Titration: 05/15/19 14:27 Dose: 3.5 units/hr, 3.5 mls/hr Documented by: [id number] Cosigned by: [id number] Titration: 05/15/19 13:34 Dose: 2.5 units/hr, 2.5 mls/hr Documented by: [id number] Cosigned by: [id number] Titration: 05/15/19 12:20 Dose: 1.8 units/hr, 1.8 mls/hr Documented by: [id number] Cosigned by: [id number] Titration: 05/15/19 11:30 Dose: 1.3 units/hr, 1.3 mls/hr Documented by: [id number] Cosigned by: [id number] Titration: 05/15/19 10:22 Dose: 2.1 units/hr, 2.1 mls/hr Documented by: [id number] Cosigned by: [id number] Titration: 05/15/19 09:31 Dose: 2.6 units/hr, 2.6 mls/hr Documented by: [id number] Cosigned by: [id number] Titration: 05/15/19 06:54 Dose: 2.2 units/hr, 2.2 mls/hr Documented by: [id number] Cosigned by: [id number] Titration: 05/15/19 06:22 Dose: 2.2 units/hr, 2.2 mls/hr Documented by: [id number] Cosigned by: [id number] Titration: 05/15/19 05:31 Dose: 2.2 units/hr, 2.2 mls/hr Documented by: [id number] Cosigned by: [id number] Titration: 05/15/19 04:13 Dose: 2.2 units/hr, 2.2 mls/hr Documented by: [id number] Cosigned by: [id number] Admin: 05/15/19 03:20 Dose: 2.2 units/hr, 2.2 mls/hr Documented by: [id number] Cosigned by: [id number] Titration: 05/15/19 02:20 Dose: 1.6 units/hr, 1.6 mls/hr Documented by: [id number] Cosigned by: [id number] Titration: 05/15/19 01:57 Dose: 1.6 units/hr, 1.6 mls/hr Documented by: [id number] Cosigned by: [id number] Admin: 05/14/19 23:59 Dose: 1.6 units/hr, 1.6 mls/hr Documented by: [id number] Cosigned by: [id number] Sodium Chloride (Nss 1000ml) 500 mls @ 999 mls/hr IV .Q31M ONE Stop: 05/14/19 23:52 Last Infusion: 05/15/19 00:47 Dose: 0 mls/hr Documented by: [id number] Admin: 05/14/19 23:59 Dose: 999 mls/hr Documented by: [id number] Sodium Chloride (Nss 1000ml) 1,000 mls @ 125 mls/hr IV .Q8H [facility] Stop: 06/14/19 01:02 Last Admin: 05/15/19 08:39 Dose: Not Given Documented by: [id number] Insulin Aspart (Novolog Flexpen) 0 units SC PC [facility] Stop: 05/15/19 16:29 Last Admin: 05/15/19 12:01 Dose: Not Given Documented by: [id number] Cosigned by: [id number] Admin: 05/15/19 12:01 Dose: 3 units Documented by: [id number] Cosigned by: [id number] Admin: 05/15/19 08:11 Dose: 3 units Documented by: [id number] Cosigned by: [id number] Insulin Aspart (Novolog Flexpen) 0 units SC TODAY@0000,0400 [facility] Stop: 05/16/19 04:01 Last Admin: 05/16/19 04:14 Dose: 3 units Documented by: [id number] Cosigned by: [id number] Admin: 05/16/19 00:05 Dose: 6 units Documented by: [id number] Cosigned by: [id number] Insulin Glargine (Lantus Solostar Pen) 30 units SC ONCE ONE Stop: 05/15/19 11:35 Last Admin: 05/15/19 11:55 Dose: 30 units Documented by: [id number] Cosigned by: [id number] Insulin Glargine (Lantus Solostar Pen) 15 units SC NOW ONE; Protocol Stop: 05/15/19 19:01 Last Admin: 05/15/19 20:00 Dose: 15 units Documented by: [id number] Cosigned by: [id number] Lorazepam (Ativan) 1 mg SL NOW STA Stop: 05/14/19 22:09 Last Admin: 05/14/19 22:40 Dose: 1 mg Documented by: [id number] Miscellaneous (Insulin Protocol Hhs Goal Range) 1 ea N/A ONE ONE Stop: 05/14/19 23:23 Last Admin: 05/14/19 23:59 Dose: 1 ea Documented by: [id number] Miscellaneous (Insulin Protocol Moderate Stress Level) 1 ea N/A ONE ONE Stop: 05/14/19 23:23 Last Admin: 05/14/19 23:59 Dose: 1 ea Documented by: [id number] Miscellaneous (Pending D5 1/2ns+20meq Kcl Ivf) 1 ea N/A Q2H [facility] Stop: 06/14/19 01:02 Last Admin: 05/15/19 10:41 Dose: Not Given Documented by: [id number] Admin: 05/15/19 10:40 Dose: Not Given Documented by: [id number] Admin: 05/15/19 10:40 Dose: Not Given Documented by: [id number] Admin: 05/15/19 08:39 Dose: Not Given Documented by: [id number] Miscellaneous Information (Dc Iv Insulin Infusion) 1 ea N/A ONE ONE Stop: 05/15/19 11:35 Last Admin: 05/15/19 12:02 Dose: 1 ea Documented by: [id number] Miscellaneous Information (Dc Iv Insulin Infusion) 1 ea N/A NOW ONE Stop: 05/15/19 21:01 Last Admin: 05/15/19 21:26 Dose: 1 ea Documented by: [id number] Medical Decision Making Differential Diagnosis Differential diagnosis includes: metabolic, infection, hypo/hyperglycemia, electrolyte abnormalities, cardiac sources, intracerebral event, toxicologic, neurologic, as well as others were entertained. Medical Records Attestation: I reviewed the patient's medical records. Home Medications Current Medication List: was personally reviewed by me Laboratory Data Attestation: I reviewed the patient's lab results. Result diagrams: 05/14/19 22:45 05/16/19 00:01 Lab Results 05/14/19 05/14/19 05/14/19 Range/Units 22:45 22:45 22:48 WBC 9.73 (4.8-10.8) K/uL RBC 4.87 (4.2-5.4) M/uL Hgb 14.7 (12.0-16.0) g/dL POC Hgb 15.3 (12.0-16.0) g/dl Hct 40.5 (37-47) % POC Hct 45 (37-47) % MCV 83.2 (80-100) fL MCH 30.2 (25-34) pg MCHC 36.3 H (32-36) g/dL Plt Count 192 (130-400) K/uL Immature Gran % (Auto) 0.0 % Neut % (Auto) 81.3 % Lymph % (Auto) 12.2 % [place] % (Auto) 5.0 % Eos % (Auto) 1.5 % Baso % (Auto) 0.0 % Immature Gran # (Auto) 0.00 (0.00-0.02) K/uL Neut # (Auto) 7.90 H (1.4-6.5) K/uL Lymph # (Auto) 1.19 L (1.2-3.4) K/uL [place] # (Auto) 0.49 (0.11-0.59) K/uL Eos # (Auto) 0.15 (0-0.5) K/uL Baso # (Auto) 0.00 (0-0.2) K/uL RBC Morphology Unremarkable POC Sodium 125 L (135-144) mEq/L Sodium 124 L (136-145) mmol/L POC Potassium 4.5 (3.3-5.0) mEq/L Potassium 4.3 (3.5-5.1) mmol/L POC Chloride 86 L (101-112) mEq/L Chloride 88 L (98-107) mmol/L Carbon Dioxide 25 (21-32) mmol/L POC Total CO2 25 (24-31) mEq/l Anion Gap 11.0 (3-11) POC Anion Gap 19.0 (16-25) mmol/L POC BUN 31 H (7-18) mg/dl BUN 27 H (7-18) mg/dl Creatinine 2.02 H (0.6-1.2) mg/dl POC Creatinine 1.6 H (0.6-1.3) mg/dl Est Cr Clr Drug Dosing 24.2 ml/min Est GFR ( Amer) 30.1 Est GFR (Non-Af Amer) 26.0 BUN/Creatinine Ratio 13.4 (10-20) Glucose 883 H* (70-99) mg/dl POC Glucose (70-99) POC Glucose (other) > 700 H* (70-99) mg/dl Calcium 9.1 (8.5-10.1) mg/dl POC Ioniz Calcium Earnestine 1.15 (1.12-1.32) mmol/l Total Bilirubin 0.5 (0.2-1) mg/dl AST 17 (15-37) U/L ALT 25 (12-78) U/L Alkaline Phosphatase 166 H (45-117) U/L Total Creatine Kinase 73 (26-192) U/L Troponin I 0.105 H* (0-0.045) ng/ml NT-Pro-B Natriuret Pep 4204 H (0-900) pg/ml Total Protein 7.3 (6.4-8.2) gm/dl Albumin 3.7 (3.4-5.0) gm/dl Globulin 3.6 (2.5-4.0) gm/dl Albumin/Globulin Ratio 1.0 (0.9-2) Beta-Hydroxybutyric Acd (0.2-2.81) mg/dl TSH 2.060 (0.300-4.500) uIu/ml Specimen Hemolysis Urine Color Urine Appearance (Clear) Urine pH (4.5-7.5) Ur Specific Seanor (1.000-1.030) Urine Protein (Negative) Urine Glucose (UA) (Negative) Urine Ketones (Negative) Urine Blood (Negative) Urine Nitrite (Negative) Urine Bilirubin (Negative) Urine Urobilinogen (Negative) Ur Leukocyte Esterase (Negative) 05/14/19 05/14/19 05/14/19 Range/Units 22:50 22:56 22:59 WBC (4.8-10.8) K/uL RBC (4.2-5.4) M/uL Hgb (12.0-16.0) g/dL POC Hgb (12.0-16.0) g/dl Hct (37-47) % POC Hct (37-47) % MCV (80-100) fL MCH (25-34) pg MCHC (32-36) g/dL Plt Count (130-400) K/uL Immature Gran % (Auto) % Neut % (Auto) % Lymph % (Auto) % [place] % (Auto) % Eos % (Auto) % Baso % (Auto) % Immature Gran # (Auto) (0.00-0.02) K/uL Neut # (Auto) (1.4-6.5) K/uL Lymph # (Auto) (1.2-3.4) K/uL [place] # (Auto) (0.11-0.59) K/uL Eos # (Auto) (0-0.5) K/uL Baso # (Auto) (0-0.2) K/uL RBC Morphology POC Sodium (135-144) mEq/L Sodium (136-145) mmol/L POC Potassium (3.3-5.0) mEq/L Potassium (3.5-5.1) mmol/L POC Chloride (101-112) mEq/L Chloride (98-107) mmol/L Carbon Dioxide (21-32) mmol/L POC Total CO2 (24-31) mEq/l Anion Gap (3-11) POC Anion Gap (16-25) mmol/L POC BUN (7-18) mg/dl BUN (7-18) mg/dl Creatinine (0.6-1.2) mg/dl POC Creatinine (0.6-1.3) mg/dl Est Cr Clr Drug Dosing ml/min Est GFR ( Amer) Est GFR (Non-Af Amer) BUN/Creatinine Ratio (10-20) Glucose (70-99) mg/dl POC Glucose > 600 H* > 600 H* (70-99) POC Glucose (other) (70-99) mg/dl Calcium (8.5-10.1) mg/dl POC Ioniz Calcium Earnestine (1.12-1.32) mmol/l Total Bilirubin (0.2-1) mg/dl AST (15-37) U/L ALT (12-78) U/L Alkaline Phosphatase (45-117) U/L Total Creatine Kinase (26-192) U/L Troponin I (0-0.045) ng/ml NT-Pro-B Natriuret Pep (0-900) pg/ml Total Protein (6.4-8.2) gm/dl Albumin (3.4-5.0) gm/dl Globulin (2.5-4.0) gm/dl Albumin/Globulin Ratio (0.9-2) Beta-Hydroxybutyric Acd (0.2-2.81) mg/dl TSH (0.300-4.500) uIu/ml Specimen Hemolysis Urine Color Yellow Urine Appearance Clear (Clear) Urine pH 5.0 (4.5-7.5) Ur Specific [place] 1.032 H (1.000-1.030) Urine Protein Negative (Negative) Urine Glucose (UA) 3+ H (Negative) Urine Ketones Negative (Negative) Urine Blood Negative (Negative) Urine Nitrite Negative (Negative) Urine Bilirubin Negative (Negative) Urine Urobilinogen Negative (Negative) Ur Leukocyte Esterase Negative (Negative) Imaging Data Radiologist's Impression: Radiology results as stated below per my review and the radiologist's interpretation: XR chest 1V portable CLINICAL HISTORY: weakness COMPARISON STUDY: Chest CT February 28, 2019. FINDINGS: Lung volumes are normal. Lungs are clear. There is no pneumothorax or pleural effusion. Cardiac size is unchanged. Mediastinal contours are normal. There is no evidence for pulmonary edema. Dual lead right subclavian pacer/AICD remains in place IMPRESSION: No acute cardiopulmonary findings. No change in appearance of the chest. Electronically signed by: Phil Devries M.D. 05/14/2019 10:39 PM ECG Data Attestation: I personally reviewed and interpreted this ECG as follows: Indication: weakness Rate (beats per minute): 72 Rhythm: normal sinus Findings: no ST depression, no ST elevation and no ectopy Blood Pressure Blood Pressure Findings: Normal blood pressure Blood Pressure Disposition: did not require urgent referral MDM Narrative This is a 59-year-old female who presents the emergency department complaining of hyperglycemia. The patient's blood sugar was found to be in the 800s. She has a history of congestive heart failure therefore she was slowly rehydrated with a normal saline bolus x2. The patient was placed on an insulin drip. Because of her multiple comorbidities I did discuss the case with the hospitalist service who agreed to admit the patient. Patient and are in agreement with the treatment plan. Impression & Plan Diabetic hyperosmolar non-ketotic state Discharge Plan Visit Data *Final* Discharge Date/Time: 05/15/19 00:44 Chief Complaint: Hyperglycemia Stated Complaint: HIGH BLOOD SUGAR ED Provider: Channing Jennings Discharge Problem: Diabetic hyperosmolar non-ketotic state Patient Disposition: Admitted As Inpatient Discharge Instructions Interventions: ED Discharge Assessment Last Done: 05/15/19 00:44 The scribe's documentation has been prepared under my direction and personally reviewed by me in its entirety. I confirm that the note above accurately reflects all work, treatment, procedures, and medical decision making performed by me.
[2019-05-15] MEDS ORDERED: MODERATE STRESS LEVEL ONE (01:03)
[2019-05-15] MEDS ORDERED: DC ALL PREVIOUSLY ORDERED DIABETES MEDS ONE (01:03)
[2019-05-15] MEDS ORDERED: NITROGLYCERIN SL 0.4 MG/TAB TAB SL PRN ×2 (01:03)
[2019-05-15] MEDS ORDERED: ONDANSETRON INJ 2 MG/ML 2 ML VIAL IV PRN (01:03)
[2019-05-15] MEDS ORDERED: ALBUTEROL 0.083% NEBU SOLN 3 ML VIAL INH PRN (01:03)
[2019-05-15] MEDS ORDERED: ONDANSETRON 4 MG TAB PO PRN (01:03)
[2019-05-15] MEDS ORDERED: HHS GOAL RANGE 250-350 mg/dl ONE (01:03)
[2019-05-15] MEDS ORDERED: PENDING NSS+20mEq KCL IVF SCH (01:03)
[2019-05-15] MEDS ORDERED: SODIUM CHLORIDE 0.9% 1000ML 1,000 ML IV SCH (01:03)
[2019-05-15] MEDS ORDERED: INSULIN REGULAR 250 UNITS in SODIUM CHLORIDE 0.9% 247.5 ML IV SCH (01:03)
[2019-05-15] MEDS ORDERED: DIPHENOXYLATE/ATROPINE 2.5/0.025MG TAB PO PRN (01:03)
[2019-05-15] MEDS ORDERED: SUMAtriptan succinate 25 MG TAB PO PRN (01:03)
[2019-05-15] MEDS ORDERED: PHARMACY GLYCEMIC MGMT CONSULT PRN (01:20)
[2019-05-15 01:53] LABS: BUN Creatinine Ratio 15.1 (10-20); Calcium 8.7 mg/dl (8.5-10.1); Creatinine Clr Calc Pharmacy 28.4 ml/min; Est GFR (African American) 36.6; Est GFR (Non-African American) 31.5; Magnesium 1.8 mg/dl (1.8-2.4); Potassium 3.9 mmol/L (3.5-5.1)
--- NOTE | 2019-05-15 02:49 | History and Physical Report ---
DATE OF ADMISSION: 05/15/2019 CHIEF COMPLAINT: Hyperglycemia. HISTORY OF PRESENT ILLNESS: This is a 59-year-old female with past medical history significant for poorly controlled type 2 diabetes, allergic rhinitis, obstructive sleep apnea, hypertension, irritable bowel syndrome, pancreatic cyst, obesity, chronic kidney disease stage III, history of chronic migraines, history of coronary artery disease, chronic diastolic heart failure, history of HOCM, family history of sudden cardiac , status post ICD placement, history of bowel perforation status post surgery, history of mood disorder, presents with hyperglycemia. The patient was recently in the hospital for CHF and chest pain. 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 The patient states she is supposed to be on insulin, but she is not taking insulin. She says she does not know how to take insulin and sugars were running high at home and she is feeling generalized weakness, sore all over, sore mouth. She says she has poor dentition, supposed to see a dentist but because of insurance she was not seen by dentist and also complains of difficulty swallowing. Appetite is not that great. Frequent micturition. Denies any fever, chills, ambulating okay without any help, but she has some staggering gait with leaning more to left side. Denies any blurred vision. On and off headaches, currently no headaches. No blurred vision, no earache, no runny nose, no cough, no fever, no chills, no chest pain, no shortness of breath, no nausea, no vomiting, no abdominal pain. Currently resting comfortably and hemodynamically stable. ALLERGIES: PENICILLIN, DOXYCYCLINE, SULFA ANTIBIOTICS, TAPES. PAST MEDICAL HISTORY: As mentioned above. PAST SURGICAL HISTORY: Carpal tunnel surgery, C-sections, ICD placement, open incisional hernia repair, partial removal of colon, and reversal of Gerard's procedure, appendectomy, right trigger finger release. MEDICATIONS: She was discharged on duloxetine 60 mg p.o. daily, mirtazapine 30 mg p.o. at bedtime, omeprazole 40 mg p.o. daily, folic acid 1 mg p.o. at bedtime, sumatriptan 50 mg p.o. p.r.n., metformin 1000 mg p.o. b.i.d., atorvastatin 40 mg p.o. q.a.m., Toprol-XL 100 mg p.o. b.i.d., nitroglycerin 0.4 mg sublingual p.r.n., gabapentin 600 mg p.o. t.i.d., aspirin 81 mg p.o. daily, spironolactone 12.5 mg p.o. daily, ropinirole 0.5 mg p.o. at bedtime, MiraLax 17 grams p.o. daily p.r.n., Protonix 40 mg p.o. q.a.m., Lantus 40 units subQ b.i.d. but patient is not taking it, Advair Diskus 500/50 one puff inhalation b.i.d., montelukast 10 mg p.o. a.m., albuterol nebulization q. 4 hours p.r.n., Lasix 40 mg 5 times a week and Lasix 80 mg 2 times a week, Zofran 4 mg p.o. t.i.d. p.r.n., Lomotil 1 tablet p.o. q.i.d. p.r.n. for diarrhea. FAMILY HISTORY: Significant for mother has arthritis, thyroid disorder, hyperlipidemia, hypertension. Daughter has arthritis, stomach cancer, seizures, and musculoskeletal disorder. SOCIAL HISTORY: . No smoking, no alcohol, no drug use. REVIEW OF SYMPTOMS: As per HPI. Rest of review of systems negative. PHYSICAL EXAMINATION: GENERAL: The patient is moderate build, not in acute distress. VITAL SIGNS: Temperature 36.8, pulse 71, respiratory rate 18, blood pressure 119/76, oxygen 98%. HEENT: No pallor, no icterus. Pupils equal, round, and reactive to light. No oral mucosa or thrush seen. NECK: No JVD. No neck masses. No carotid bruits. CARDIOVASCULAR: S1, S2 heard, regular rate and rhythm. No murmur, rub or gallop. RESPIRATORY SYSTEM: Normal AP diameter. No accessory muscle use. No wheezing, no crackles. ABDOMEN: Soft, bowel sounds present. Nontender. No distention. CENTRAL NERVOUS SYSTEM: Cranial nerves II-XII grossly intact, nonfocal. EXTREMITIES: No edema, no erythema. LABS: WBC 9.7, hemoglobin 14.7, hematocrit 40.5, platelets 192. Sodium 124, potassium 4.3, chloride 88, bicarbonate 25, BUN 27, creatinine 2.02, glucose 880, calcium 9.1, total bilirubin 0.5, AST 17, ALT 25, alkaline phosphatase 166, total creatine kinase 73, troponin-I 0.105. BNP 4200, TSH 2.06. Urinalysis positive for glucose. Chest x-ray: No acute cardiopulmonary findings. No change in appearance of the chest. EKG: Normal sinus rhythm with rate of 72, no significant change from previous EKG. ASSESSMENT AND PLAN: This is a 59-year-old female who presents with hyperglycemia. 1. Hyperglycemia, poorly controlled type 2 diabetes. She is supposed to be on Lantus but she is not taking. We will hold her home p.o. medications of metformin..Blood sugar was 880, Not in DKA. Will start on HHS insulin drip protocol; moderate risk, with HHS goal range. IV normal saline at 125 mL per hour for now and based on lab work further change the fluids to include potassium supplement and change to D5 of normal saline when the glucose is in the goal range per protocol. Labs as per protocol and we will check hemoglobin A1c levels. Diabetic teaching and pharmacy consult and close monitoring on the tele floor. 2. Pseudohyponatremia from hyperglycemia. We will follow the labs. 3. Acute kidney injury and chronic kidney disease stage III. Baseline creatinine around 1.1, presented with Cr of 2.0, getting fluids, holding the diuretics. We will monitor the labs in a.m. 4. History of hypertrophic obstructive cardiomyopathy, history of diastolic congestive heart failure, history of status post ICD, holding the Lasix and spironolactone. Continue Toprol-XL. Getting IV fluids as above. Closely monitor for any volume overload. 5. Mild elevation of troponin, most likely from wilmer and hyperglycemia. We will follow the serial cardiac enzymes. 6. Hypertension. Continue home medications. Monitor blood pressure. 7. History of mood disorder, currently stable. Continue duloxetine. 8. History of diarrhea. on Lomotil p.r.n. 9. Sleep apnea, did not tolerate CPAP. There is a plan to get surgery. 10. History of chronic obstructive pulmonary disease. home inhalers. 11. Restless legs syndrome, on Requip. 12. Gastroesophageal reflux disease on PPI. 13. Deep venous thrombosis prophylaxis, sequential compression devices for now. 14. Disposition: Closely monitor in the tele floor. Level 1, full code. MTDD
[2019-05-15] MEDS: INSULIN REGULAR 250 UNITS in SODIUM CHLORIDE 0.9% 247.5 ML IV SCH (03:20)
[2019-05-15] MEDS: NSS + 20MEQ KCL 20 MEQ/1,000 ML BAG IV SCH ×3 (03:51→17:36)
[2019-05-15 06:02] LABS: Estimated Average Glucose 427 mg/dl; Hemoglobin A1C 16.5 % (4.5-5.6)
[2019-05-15 06:35] LABS: Alanine Aminotransferase 21 U/L (12-78); Albumin Level 3.2 gm/dl (3.4-5.0); Alkaline Phosphatase 135 U/L (45-117); Aspartate Aminotransferase 11 U/L (15-37); Bilirubin Direct < 0.1 mg/dl (0-0.2); Bilirubin,Total 0.4 mg/dl (0.2-1); Blood Urea Nitrogen 24 mg/dl (7-18); Calcium 8.5 mg/dl (8.5-10.1); Carbon Dioxide 28 mmol/L (21-32); Chloride 102 mmol/L (98-107); Creatinine Clr Calc Pharmacy 34.7 ml/min; Est GFR (African American) 46.5; Est GFR (Non-African American) 40.1; Glucose 378 mg/dl (70-99); Magnesium 1.9 mg/dl (1.8-2.4); Phosphorus 2.9 mg/dl (2.5-4.9); Potassium 3.8 mmol/L (3.5-5.1); Sodium 138 mmol/L (136-145); Total Protein 6.4 gm/dl (6.4-8.2)
[2019-05-15 06:46] LABS: Beta-Hydroxybutyrate 0.99 mg/dl (0.2-2.81)
--- NOTE | 2019-05-15 06:54 | CT Scan Report ---
CT head/brain wo con CLINICAL HISTORY: 59 years-old Female presenting with imbalance. TECHNIQUE: Multidetector CT imaging of the head was performed without the use of intravenous contrast . IV contrast: None. One or more dose lowering techniques were used consistent with the principles of ALARA (as low as reasonably achievable), including automatic exposure control, mA or kV adjustment t o individual patient size, and/or use of iterative reconstruction. COMPARISON: 02/01/2018. CT DOSE (mGy.cm): The estimated cumulative dose is 537.48 mGy.cm. 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 Proportional ventricular and sulcal prominence, likely age-related parenchymal volume loss. No hemorr cristina. Brain parenchyma normal in appearance with preserved franklin-white differentiation. No acute sydni torial infarct. No mass effect or midline shift. No extra-axial fluid collection. Paranasal sinuses a nd mastoid air cells clear. Calvarium intact. IMPRESSION: 1. No acute intracranial abnormality. Electronically signed by: Hilton Salazar M.D. 05/15/2019 6:53 AM
--- NOTE | 2019-05-15 08:02 | Hospitalist Progress Note ---
Date of Service May 15, 2019 Subjective Had staggering gait mostly from [facility]. Will follow CT head. Started on nystatin swish and swallow for Thrush. If continue have difficulty swallowing may need speech evaluation. Results & Data Vital Signs (Past 12 Hours) Vital Signs Temp Pulse Pulse Resp BP BP Pulse Ox 05/15/19 07:44 36.8 C 66 16 113/76 99 05/15/19 03:25 36.7 C 66 17 122/74 99 05/15/19 01:00 36.7 C 75 18 123/80 97 05/15/19 00:44 64 18 117/71 99 05/14/19 23:25 71 18 119/76 98 05/14/19 21:50 36.8 C 69 18 101/64 97
[2019-05-15] MEDS: ATORVASTATIN 40 MG TAB PO SCH (08:08)
[2019-05-15] MEDS: GABAPENTIN 600 MG TAB PO SCH ×3 (08:08→21:24)
[2019-05-15] MEDS: METOPROLOL SUCC 50MG EXT REL TAB PO SCH ×2 (08:08→21:25)
[2019-05-15] MEDS: ASPIRIN 81 MG ECTAB PO SCH (08:09)
[2019-05-15] MEDS: NYSTATIN SUSP 500,000 U/5 ML UDC PO SCH ×4 (08:09→21:28)
[2019-05-15] MEDS: PANTOprazole 40 MG TAB PO SCH (08:09)
[2019-05-15] MEDS: FLUTICASONE/SALMETEROL (ADVAIR) 500/50 INH 14 PUFF INH SCH ×2 (08:10→21:21)
[2019-05-15] MEDS: INSULIN ASPART 100 UNITS/ML 3 ML PEN SC SCH ×5 (08:11→21:23)
[2019-05-15] MEDS: PENDING D5 1/2NS+20mEq KCL IVF SCH ×3 (08:39→10:41)
[2019-05-15] MEDS ORDERED: INSULIN ASPART 100 UNITS/ML 3 ML PEN SC SCH (09:00)
[2019-05-15] MEDS ORDERED: NON-FORMULARY MEDICATION (Omeprazole 40 MG) PO SCH (09:00)
[2019-05-15 10:07] LABS: Est GFR (African American) 53.3; Potassium 3.9 mmol/L (3.5-5.1)
[2019-05-15 10:08] LABS: BUN Creatinine Ratio 17.3 (10-20); Calcium 8.6 mg/dl (8.5-10.1); Creatinine Clr Calc Pharmacy 38.8 ml/min; Est GFR (Non-African American) 45.9; Magnesium 1.8 mg/dl (1.8-2.4)
[2019-05-15] MEDS: DULOXETINE HCL 60 MG CAP PO SCH (10:42)
[2019-05-15] MEDS ORDERED: DC IV INSULIN INFUSION 1 EA DEVI ONE ×2 (11:34→21:00)
[2019-05-15] MEDS ORDERED: INSULIN GLARGINE SOLOSTAR 100 UNITS/ML 3 ML PEN SC ONE ×2 (11:34→19:00)
[2019-05-15 13:49] LABS: BUN Creatinine Ratio 18.2 (10-20); Calcium 8.6 mg/dl (8.5-10.1); Creatinine Clr Calc Pharmacy 42.1 ml/min; Est GFR (African American) 58.9; Est GFR (Non-African American) 50.8; Magnesium 1.8 mg/dl (1.8-2.4); Phosphorus 2.9 mg/dl (2.5-4.9); Potassium 4.3 mmol/L (3.5-5.1)
--- NOTE | 2019-05-15 13:56 | Hospitalist Progress Note ---
Date of Service May 16.May 15, 2019 Assessment & Plan (1) Diabetic hyperosmolar non-ketotic state: Has type 2 diabetes on insulin Has not been using insulin and or following diet Blood sugar noted to be more than 800 and clinic and was sent in for admission Pseudohyponatremia at presentation with sodium of 128 and that reverted to normal with fluid administration Has hyperosmolar nonketotic state with hemoglobin A1c more than 16 Started with intravenous insulin and intravenous fluid Clinically little bit better today 05/15 Continue with insulin subcu doses as per glycemic pharmacist Insulin regimen and doses have been changed for convenience She has a started with Novolin 70/30 65 units in the morning before breakfast and 35 units in the evening with dinner She will be to stay a day or 2 more before discharge Present on Admission?: Yes (2) Acute worsening of stage 3 chronic kidney disease: Acute Kidney failure due to dehydration Kidney function is worse complicated by dehydration IV fluid administered Monitoring kidney function and it has been improving and normalized 05/16 (3) Generalized weakness: Secondary to hypoglycemia We will get PT and OT evaluation Weakness has been getting better (4) Hypertrophic cardiomyopathy: With diastolic heart failure No acute heart failure at this time Denies any cardiac symptoms We will continue her current medications (5) CHF (congestive heart failure): No acute CHF We will hold Lasix for now She will have a regular Lasix on discharge (6) CADENCE (obstructive sleep apnea): Could not tolerate CPAP at home Continue current dose of oxygen BiPAP applied for convenience and better sleep (7) COPD (chronic obstructive pulmonary disease): No acute exacerbation (8) Hypertension: Seems stable Other medical conditions remained stable DVT prophylaxis Subcu heparin CODE STATUS-full Discussed with the daughter Likely to go home in a day or 2 Subjective 05/15 Patient was seen in the medical telemetry unit in presence of the daughter This is a 59-year-old female with past medical history significant for poorly controlled type 2 diabetes, allergic rhinitis,obstructive sleep apnea, hypertension, irritable bowel syndrome, pancreatic cyst, obesity, chronic kidney disease stage III, history of chronic migraines,history of coronary artery disease, chronic diastolic heart failure, history of HOCM, family history of sudden cardiac , status post ICD placement, history of bowel perforation status post surgery, history of mood disorder, presents with hyperglycemia. Presented with symptomatic hyper glycemia, no evidence of DKA and/or hyperosmolar COMA Has been feeling a little bit better since admission Complaints to have lack of sleep for the last 2 nights 05/16 Remains weak and lethargic Has been noncompliant with insulin, medications and diabetic diet Denies any other symptoms Review of Systems Review of Systems: All systems reviewed and are unremarkable except as noted Constitutional: + malaise and + weakness Respiratory: + dyspnea (Minimal dyspnea at rest) Physical Exam 2 Physical Exam: Minimal distress at rest due to shortness of breath Constitutional: + acute distress and + ill appearing Eyes: PERRL, conjunctivae normal, anicteric sclerae ENMT: external ear and nose normal, oropharynx normal Neck: trachea midline, no thyromegaly Respiratory: + respiratory distress (Minimal distress at rest) Auscultation: + diminished lung sounds and + crackles (At the bases) Cardiovascular: Rate/Rhythm: regular rate Gastrointestinal (Abdomen): Inspection/Auscultation: abdomen normal to inspection and normal bowel sounds Percussion/Palpation: abdomen soft Musculoskeletal: No acute arthritis Neurologic: Alert and awake. Generally weak Lymphatic: no cervical or axillary lymphadenopathy Results & Data Vital Signs (Past 12 Hours) Vital Signs Temp Pulse Resp BP Pulse Ox 05/15/19 12:48 36.6 C 83 18 112/72 92 05/15/19 11:48 36.4 C L 67 20 110/74 100 05/15/19 07:44 36.8 C 66 16 113/76 99 05/15/19 03:25 36.7 C 66 17 122/74 99 Laboratory Results Short CBC 05/14/19 Range/Units 22:45 WBC 9.73 (4.8-10.8) K/uL Hgb 14.7 (12.0-16.0) g/dL Hct 40.5 (37-47) % Plt Count 192 (130-400) K/uL BMP 05/14/19 05/15/19 05/15/19 22:45 01:21 05:40 Sodium 124 L 128 L 138 D Potassium 4.3 3.9 3.8 Chloride 88 L 94 L 102 Carbon Dioxide 25 27 28 BUN 27 H 26 H 24 H Creatinine 2.02 H 1.72 H D 1.41 H D Glucose 883 H* 686 H* 378 H* Calcium 9.1 8.7 8.5 05/15/19 09:21 Sodium 138 Potassium 3.9 Chloride 105 Carbon Dioxide 26 BUN 22 H Creatinine 1.26 H Glucose 290 H Calcium 8.6 Cardiac Enzymes 05/14/19 05/15/19 05/15/19 Range/Units 22:45 05:40 10:51 Total Creatine Kinase 73 (26-192) U/L Troponin I 0.105 H* 0.130 H* 0.128 H* (0-0.045) ng/ml Liver Function 05/14/19 05/15/19 Range/Units 22:45 05:40 Total Bilirubin 0.5 0.4 (0.2-1) mg/dl Direct Bilirubin < 0.1 (0-0.2) mg/dl AST 17 11 L (15-37) U/L ALT 25 21 (12-78) U/L Alkaline Phosphatase 166 H 135 H (45-117) U/L Albumin 3.7 3.2 L (3.4-5.0) gm/dl Urine 05/14/19 Range/Units 22:59 Urine Color Yellow Urine Appearance Clear (Clear) Urine pH 5.0 (4.5-7.5) Ur Specific [place] 1.032 H (1.000-1.030) Urine Protein Negative (Negative) Urine Glucose (UA) 3+ H (Negative) Diagnostic Findings BMP 05/15/19 05/16/19 19:35 00:01 Sodium 142 141 Potassium 4.5 4.2 Chloride 112 H 111 H Carbon Dioxide 22 23 BUN 18 17 Creatinine 1.23 H 1.04 Glucose 256 H 263 H Calcium 8.1 L 8.1 L Medications Administered Current Inpatient Medications 05/16 Acetaminophen (Tylenol) 650 mg PO Q4H PRN PRN Reason: Pain or Fever Stop: 06/14/19 01:02 Last Admin: 05/15/19 21:36 Dose: 650 mg Documented by: Albuterol (Ventolin 0.083% 2.5mg/3ml) 2.5 mg INH Q4H PRN PRN Reason: Wheezing Stop: 06/14/19 01:02 Aspirin (Ecotrin Ectab) 81 mg PO [facility] Stop: 06/14/19 08:59 Last Admin: 05/16/19 09:28 Dose: 81 mg Documented by: Atorvastatin Calcium (Lipitor) 40 mg PO [facility] Stop: 06/14/19 08:59 Last Admin: 05/16/19 09:24 Dose: 40 mg Documented by: Diphenoxylate HCl/Atropine (Lomotil) 1 tab PO QID PRN PRN Reason: Diarrhea Stop: 06/14/19 01:02 Duloxetine HCl (Cymbalta) 60 mg PO QDL [facility] Stop: 06/14/19 11:29 Last Admin: 05/16/19 12:22 Dose: 60 mg Documented by: Folic Acid (Folvite) 1 mg PO HS [facility] Stop: 06/14/19 20:59 Last Admin: 05/15/19 21:27 Dose: 1 mg Documented by: Gabapentin (Neurontin) 600 mg PO TID [facility] Stop: 06/14/19 08:59 Last Admin: 05/16/19 09:23 Dose: 600 mg Documented by: Heparin Sodium (Porcine) (Heparin Sodium (Porcine)) 5,000 units SQ Q12 [facility] Stop: 06/14/19 20:59 Last Admin: 05/16/19 09:30 Dose: 5,000 units Documented by: Potassium Chloride/Sodium Chloride (Normal Saline W/20 Meq Kcl) 20 meq in 1,000 mls @ 125 mls/hr IV .Q8H [facility] Stop: 06/14/19 01:29 Last Admin: 05/16/19 09:29 Dose: 125 mls/hr Documented by: Insulin Aspart (Novolog Flexpen) 0 units SC ACHS [facility] Stop: 06/14/19 16:29 Last Admin: 05/16/19 12:23 Dose: 18 units Documented by: Insulin Aspart (Novolog Flexpen) 0 units SC TODAY@0000,0400 [facility] Stop: 05/17/19 04:01 Insulin Human Isoph/Insulin Regular (Novolin 70/30 Regular) 65 units SC QDB [facility] Stop: 06/16/19 07:29 Insulin Human Isoph/Insulin Regular (Novolin 70/30 Regular) 35 units SC QDD [facility] Stop: 06/16/19 16:29 Insulin Human Isoph/Insulin Regular (Novolin 70/30 Regular) 25 units SC QDD [facility] Stop: 05/16/19 18:00 Metoprolol Succinate (Toprol Xl) 100 mg PO BID [facility] Stop: 06/14/19 08:59 Last Admin: 05/16/19 09:23 Dose: 100 mg Documented by: Mirtazapine (Remeron) 30 mg PO HS [facility] Stop: 06/14/19 20:59 Last Admin: 05/15/19 21:26 Dose: 30 mg Documented by: Miscellaneous Information (Consult Glycemic Management Pharmacy) 1 ea N/A UD PRN PRN Reason: Consult Stop: 06/14/19 01:19 Montelukast Sodium (Singulair) 10 mg PO [facility] Stop: 06/14/19 20:59 Last Admin: 05/15/19 21:27 Dose: 10 mg Documented by: Nitroglycerin (Nitrostat) 0.4 mg SL UD PRN PRN Reason: Chest Pain Stop: 06/14/19 01:02 Nystatin (Mycostatin) 5 ml PO QID [facility] Stop: 05/25/19 08:59 Last Admin: 05/16/19 12:22 Dose: 5 ml Documented by: Ondansetron HCl (Zofran Tab) 4 mg PO TID PRN PRN Reason: Nausea Stop: 06/14/19 01:02 Ondansetron HCl (Zofran) 4 mg IV Q6H PRN PRN Reason: Nausea Stop: 06/14/19 01:02 Pantoprazole Sodium (Protonix) 40 mg PO QAM [facility] Stop: 06/14/19 08:59 Last Admin: 05/16/19 09:24 Dose: 40 mg Documented by: Ropinirole HCl (Requip) 0.5 mg PO [facility] Stop: 06/14/19 20:59 Last Admin: 05/15/19 21:26 Dose: 0.5 mg Documented by: Fluticasone/Salmeterol (Advair Diskus 500/50) 1 puffs INH BID [facility] Stop: 06/14/19 08:59 Last Admin: 05/16/19 09:27 Dose: 1 puffs Documented by: Sumatriptan Succinate (Imitrex) 50 mg PO UD PRN PRN Reason: Headache Stop: 06/14/19 01:02 Current Inpatient Medications 05/15 Montelukast Sodium (Singulair) 10 mg PO [facility] Stop: 06/14/19 20:59 Nitroglycerin (Nitrostat) 0.4 mg SL UD PRN PRN Reason: Chest Pain Stop: 06/14/19 01:02 Nystatin (Mycostatin) 5 ml PO QID [facility] Stop: 05/25/19 08:59 Last Admin: 05/15/19 12:02 Dose: 5 ml Documented by: Ondansetron HCl (Zofran Tab) 4 mg PO TID PRN PRN Reason: Nausea Stop: 06/14/19 01:02 Ondansetron HCl (Zofran) 4 mg IV Q6H PRN PRN Reason: Nausea Stop: 06/14/19 01:02 Pantoprazole Sodium (Protonix) 40 mg PO QAM [facility] Stop: 06/14/19 08:59 Last Admin: 05/15/19 08:09 Dose: 40 mg Documented by: Ropinirole HCl (Requip) 0.5 mg PO HS [facility] Stop: 06/14/19 20:59 Fluticasone/Salmeterol (Advair Diskus 500/50) 1 puffs INH BID [facility] Stop: 06/14/19 08:59 Last Admin: 05/15/19 08:10 Dose: 1 puffs Documented by: Sumatriptan Succinate (Imitrex) 50 mg PO UD PRN PRN Reason: Headache Stop: 06/14/19 01:02
--- NOTE | 2019-05-15 14:56 | Pharmacy Report ---
Pharmacy Glycemic Short Note 2 - Date of Service May 15, 2019 - Glycemic Short BSG Results (Last 24 hours): 05/14/19 05/14/19 05/14/19 22:45 22:48 22:50 Glucose 883 H* POC Glucose > 600 H* POC Glucose (other) > 700 H* 05/14/19 05/15/19 05/15/19 22:56 01:04 01:07 Glucose POC Glucose > 600 H* > 600 H* > 600 H* POC Glucose (other) 05/15/19 05/15/19 05/15/19 01:21 02:19 03:17 Glucose 686 H* POC Glucose 541 H* 546 H* POC Glucose (other) 05/15/19 05/15/19 05/15/19 04:12 05:29 05:40 Glucose 378 H* POC Glucose 462 H* 399 H* POC Glucose (other) 05/15/19 05/15/19 05/15/19 06:20 07:17 09:20 Glucose POC Glucose 348 H* 325 H* 291 H POC Glucose (other) 05/15/19 05/15/19 05/15/19 09:21 10:19 11:22 Glucose 290 H POC Glucose 197 H 140 H POC Glucose (other) 05/15/19 05/15/19 05/15/19 13:06 13:19 14:23 Glucose 246 H POC Glucose 277 H 305 H* POC Glucose (other) OUTPATIENT ANTIDIABETIC REGIMEN: * Metformin 1000mg BID * Possible prescriptions for insulin, but did not take ASSESSMENT: * Patient reportedly not compliant with long standing hyperglycemic symptoms, presenting with BSG > 800 mg/dL and A1c of 16.5%. Patient initially placed on an insulin drip and BSGs were appropriately reduced to the 250-350 range. This morning the goal range was reduced in an attempt to transition off the drip. I did place orders for drip transition when the BSG dropped to 140 around lunch. I anticipate a few hyperglycemic values as drip transition was initiated when the patient was eating (carbs were covered). PLAN FOR INPATIENT GLYCEMIC CONTROL: * Hold outpatient oral diabetes medications * Basal insulin * Lantus 30 units SQ X 1 given @ 1200 * Lantus scale this evening based on BSG (see MAR for details) * Bolus insulin * NovoLog per scale ACHS or Q6hrs while NPO * Goal Range: Low 120 mg/dL - High 160 mg/dL * Correction Factor: 35 mg/dL/unit * Nutritional / Prandial insulin per carb ratio of 1 unit per 10 grams CHO consumed PLAN FOR DISCHARGE: * To be determined
[2019-05-15 20:09] LABS: BUN Creatinine Ratio 14.6 (10-20); Calcium 8.1 mg/dl (8.5-10.1); Creatinine Clr Calc Pharmacy 39.7 ml/min; Est GFR (African American) 54.8; Est GFR (Non-African American) 47.3; Magnesium 1.6 mg/dl (1.8-2.4); Potassium 4.5 mmol/L (3.5-5.1)
[2019-05-15 20:13] LABS: Phosphorus 2.1 mg/dl (2.5-4.9)
[2019-05-15] MEDS ORDERED: INSULIN GLARGINE SOLOSTAR 100 UNITS/ML 3 ML PEN SC SCH (21:00)
[2019-05-15] MEDS: MIRTAZAPINE TAB 15 MG TAB PO SCH (21:26)
[2019-05-15] MEDS: ROPINIROLE HCL 0.25 MG TABLET PO SCH (21:26)
[2019-05-15] MEDS: HEPARIN SOD 5,000 UNIT/0.5 ML VIAL SQ SCH (21:27)
[2019-05-15] MEDS: FOLIC ACID 1 MG TAB PO SCH (21:27)
[2019-05-15] MEDS: MONTELUKAST SODIUM 10 MG TABLET PO SCH (21:27)
[2019-05-15] MEDS: ACETAMINOPHEN 325 MG TAB PO PRN (21:36)
[2019-05-16] MEDS: INSULIN ASPART 100 UNITS/ML 3 ML PEN SC SCH ×6 (00:05→21:29)
[2019-05-16 00:35] LABS: BUN Creatinine Ratio 16.3 (10-20); Calcium 8.1 mg/dl (8.5-10.1); Est GFR (African American) 67.2; Est GFR (Non-African American) 57.9; Magnesium 1.6 mg/dl (1.8-2.4); Phosphorus 2.6 mg/dl (2.5-4.9); Potassium 4.2 mmol/L (3.5-5.1)
[2019-05-16] MEDS: NSS + 20MEQ KCL 20 MEQ/1,000 ML BAG IV SCH ×2 (01:20→09:29)
--- NOTE | 2019-05-16 08:18 | Pharmacy Report ---
Pharmacy Glycemic Short Note 2 - Date of Service May 16, 2019 - Glycemic Short BSG Results (Last 24 hours): 05/15/19 05/15/19 05/15/19 09:20 09:21 10:19 Glucose 290 H POC Glucose 291 H 197 H 05/15/19 05/15/19 05/15/19 11:22 12:19 13:06 Glucose 246 H POC Glucose 140 H 233 H 05/15/19 05/15/19 05/15/19 13:19 14:23 15:25 Glucose POC Glucose 277 H 305 H* 235 H 05/15/19 05/15/19 05/15/19 16:21 17:19 19:02 Glucose POC Glucose 220 H 161 H 293 H 05/15/19 05/15/19 05/16/19 19:35 20:36 00:00 Glucose 256 H POC Glucose 167 H 270 H 05/16/19 05/16/19 05/16/19 00:01 04:05 07:44 Glucose 263 H POC Glucose 209 H 193 H OUTPATIENT ANTIDIABETIC REGIMEN: * Metformin 1000mg BID * Possible prescriptions for insulin, but did not take ASSESSMENT: * Patient reportedly not compliant with outpatient antidiabetic regimen, long standing hyperglycemic symptoms, presenting with BSG > 800 mg/dL and A1c of 16.5%. * Pt initially started on IV insulin infusion + fluids per [facility]HS protocol * Pt transitioned off of insulin infusion yesterday- was a very long and slow transition due to fluctuating hyperglycemia. * Pt received 69 units of SQ insulin + ~ 50+ units of IV insulin per infusion. * Average rate ~ 2units/hr even with SQ insulin on board * Will increase total daily dose to ~110 units/day and titrate based on BSG trends PLAN FOR INPATIENT GLYCEMIC CONTROL: * Hold outpatient oral diabetes medications- resuming TBD based on kidney function * Basal insulin * Lantus 55 units SQ daily in AM * Will scale further Lantus dosing in the event that this is too aggressive once insulin is at steady state * BSG <120 mg/dl --> Lantus 35 units * BSG 120-180 mg/dl --> Lantus 45 units * BSG >180 mg/dl --> Lantus 55 units * Bolus insulin * NovoLog per scale ACHS or Q6hrs while NPO * Goal Range: Low 120 mg/dL - High 160 mg/dL {slightly elevated goal range d/t elevated A1c) * Correction Factor: 15 mg/dL/unit * Nutritional / Prandial insulin per carb ratio of 1 unit per 5 grams CHO consumed PLAN FOR DISCHARGE: * A1c = 16.5% on 05/15/19 * Pt specific goal A1c is ~ 8% * A1c goal should be individualized based on risk of hypo/drug AE, disease duration, life expectancy, relevant co-morbidities, established vascular complication, patient attitude and expected treatment efforts, resources and support system. * A1c is greater than or equal to 10% consider metformin + combination injectable therapy (basal insulin + rapid acting insulin OR GLP1-RA) * Metformin, if not contraindicated and if tolerated, is the preferred initial pharmacological agent for type 2 diabetes. Metformin has a long- standing evidence base for efficacy and safety, is inexpensive, and may reduce risk of cardiovascular events. * B12 supplementation may be necessary with snf metformin use * Pt will need metformin (if OK'ed based on kidney function) combination injectable therapy based on A1c. * Could consider Lantus 45-55 units SQ daily + NovoLog with meals at a fixed dose * If this is too cumbersome, could consider premixed insulin with Novolin 70/30 at dosing of ~ 65 units SQ AM with breakfast + 35 units SQ PM with dinner * Pt will need DSME and support through the diabetes MTM clinic at [facility] Additional lifestyle modifications: * Support Patient Self-Management * Healthy Lifestyle (diet, exercise, and smoking cessation) * Disease self-management (SMBG) * Prevention of complications (BP, Lipid goals, Immunizations) * Consider outpatient Diabetes Self-Management Education & Support
[2019-05-16] MEDS ORDERED: INSULIN GLARGINE SOLOSTAR 100 UNITS/ML 3 ML PEN SC SCH ×2 (09:00→13:21)
[2019-05-16] MEDS: METOPROLOL SUCC 50MG EXT REL TAB PO SCH ×2 (09:23→21:11)
[2019-05-16] MEDS: GABAPENTIN 600 MG TAB PO SCH ×3 (09:23→21:12)
[2019-05-16] MEDS: PANTOprazole 40 MG TAB PO SCH (09:24)
[2019-05-16] MEDS: ATORVASTATIN 40 MG TAB PO SCH (09:24)
[2019-05-16] MEDS: NYSTATIN SUSP 500,000 U/5 ML UDC PO SCH ×4 (09:27→21:11)
[2019-05-16] MEDS: FLUTICASONE/SALMETEROL (ADVAIR) 500/50 INH 14 PUFF INH SCH ×2 (09:27→21:08)
[2019-05-16] MEDS: ASPIRIN 81 MG ECTAB PO SCH (09:28)
[2019-05-16] MEDS: HEPARIN SOD 5,000 UNIT/0.5 ML VIAL SQ SCH ×2 (09:30→21:27)
[2019-05-16] MEDS: DULOXETINE HCL 60 MG CAP PO SCH (12:22)
[2019-05-16] MEDS: ACETAMINOPHEN 325 MG TAB PO PRN ×2 (14:27→18:21)
[2019-05-16] MEDS ORDERED: INSULIN HUMAN 70% NPH/30% REGULAR SC SCH ×2 (16:30)
[2019-05-16] MEDS: ROPINIROLE HCL 0.25 MG TABLET PO SCH (21:09)
[2019-05-16] MEDS: FOLIC ACID 1 MG TAB PO SCH (21:10)
[2019-05-16] MEDS: MIRTAZAPINE TAB 15 MG TAB PO SCH (21:10)
[2019-05-16] MEDS: MONTELUKAST SODIUM 10 MG TABLET PO SCH (21:11)
[2019-05-17] MEDS ORDERED: INSULIN ASPART 100 UNITS/ML 3 ML PEN SC SCH
[2019-05-17] MEDS: INSULIN ASPART 100 UNITS/ML 3 ML PEN SC SCH ×6 (00:13→20:40)
[2019-05-17] MEDS ORDERED: INSULIN HUMAN 70% NPH/30% REGULAR SC SCH ×2 (07:30→16:30)
[2019-05-17 07:45] LABS: BUN Creatinine Ratio 10.9 (10-20); Calcium 8.5 mg/dl (8.5-10.1); Creatinine Clr Calc Pharmacy 54.9 ml/min; Est GFR (African American) 81.1; Magnesium 1.8 mg/dl (1.8-2.4); Phosphorus 2.8 mg/dl (2.5-4.9); Potassium 4.4 mmol/L (3.5-5.1)
[2019-05-17] MEDS: ATORVASTATIN 40 MG TAB PO SCH (08:03)
[2019-05-17] MEDS: METOPROLOL SUCC 50MG EXT REL TAB PO SCH ×2 (08:04→20:34)
[2019-05-17] MEDS: GABAPENTIN 600 MG TAB PO SCH ×3 (08:04→20:39)
[2019-05-17] MEDS: DULOXETINE HCL 60 MG CAP PO SCH (08:04)
[2019-05-17] MEDS: PANTOprazole 40 MG TAB PO SCH (08:05)
[2019-05-17] MEDS: ASPIRIN 81 MG ECTAB PO SCH (08:05)
[2019-05-17] MEDS: FLUTICASONE/SALMETEROL (ADVAIR) 500/50 INH 14 PUFF INH SCH ×2 (08:05→20:33)
[2019-05-17] MEDS: NYSTATIN SUSP 500,000 U/5 ML UDC PO SCH ×4 (08:06→20:35)
[2019-05-17] MEDS: HEPARIN SOD 5,000 UNIT/0.5 ML VIAL SQ SCH ×2 (08:09→20:37)
--- NOTE | 2019-05-17 08:58 | Pharmacy Report ---
Pharmacy Glycemic Short Note 2 - Date of Service May 17, 2019 - Glycemic Short BSG Results (Last 24 hours): 05/16/19 05/16/19 05/16/19 11:41 16:28 16:50 Glucose POC Glucose 260 H 68 L* 111 H 05/16/19 05/16/19 05/17/19 20:39 23:55 03:42 Glucose POC Glucose 191 H 185 H 80 05/17/19 05/17/19 06:48 07:31 Glucose 195 H POC Glucose 155 H OUTPATIENT ANTIDIABETIC REGIMEN: * Metformin 1000mg BID * Possible prescriptions for insulin, but did not take ASSESSMENT: 05/17 * Ms. Velasquez received 107 units of insulin yesterday. She had a hypoglycemic episode prior to dinner so evening Novolin 70/30 was cut in half (due to the drop in BSG from 260 -> 63 and large amount of basal already on board. She received 5 units of correctional insulin overnight so the 70/30 dose could have been increased slightly but there was concern for further hypoglycemia using a mixed insulin. * She dropped as low as 80 mg/dL overnight but is back up to 155 mg/dL this AM. Current 70/30 regimen will provide 100 units/day, which is a slight reduction from yesterday's total so this is reasonable to continue. 05/16 * Patient reportedly not compliant with outpatient antidiabetic regimen, long st anding hyperglycemic symptoms, presenting with BSG > 800 mg/dL and A1c of 16.5%. * Pt initially started on IV insulin infusion + fluids per [facility] protocol * Pt transitioned off of insulin infusion yesterday- was a very long and slow transition due to fluctuating hyperglycemia. * Pt received 69 units of SQ insulin + ~ 50+ units of IV insulin per infusion. * Average rate ~ 2units/hr even with SQ insulin on board * Will increase total daily dose to ~110 units/day and titrate based on BSG trends PLAN FOR INPATIENT GLYCEMIC CONTROL: * Resume metformin 1 gm BID starting w/ dinner * Basal/prandial insulin - continue what is already ordered for today * Novolin 70/30 65 units qAM, 35 units w/ dinner * Bolus insulin * NovoLog per scale ACHS or Q6hrs while NPO * Goal Range: Low 120 mg/dL - High 160 mg/dL {slightly elevated goal range d/t elevated A1c) * Correction Factor: 15 mg/dL/unit PLAN FOR DISCHARGE: * A1c = 16.5% on 05/15/19 * Pt specific goal A1c is ~ 8% * A1c goal should be individualized based on risk of hypo/drug AE, disease duration, life expectancy, relevant co-morbidities, established vascular complication, patient attitude and expected treatment efforts, resources and support system. * A1c is greater than or equal to 10% consider metformin + combination injectable therapy (basal insulin + rapid acting insulin OR GLP1-RA) * Metformin, if not contraindicated and if tolerated, is the preferred initial pharmacological agent for type 2 diabetes. Metformin has a long- standing evidence base for efficacy and safety, is inexpensive, and may reduce risk of cardiovascular events. * B12 supplementation may be necessary with terminal block assembler metformin use * Pt will need metformin (if OK'ed based on kidney function) combination injectable therapy based on A1c. * Could consider Lantus 45-55 units SQ daily + NovoLog with meals at a fixed dose * If this is too cumbersome, could consider premixed insulin with Novolin 70/30 at dosing of ~ 65 units SQ AM with breakfast + 35 units SQ PM with dinner * Pt will need DSME and support through the diabetes MTM clinic at [facility] Additional lifestyle modifications: * Support Patient Self-Management * Healthy Lifestyle (diet, exercise, and smoking cessation) * Disease self-management (SMBG) * Prevention of complications (BP, Lipid goals, Immunizations) * Consider outpatient Diabetes Self-Management Education & Support
--- NOTE | 2019-05-17 15:23 | Hospitalist Progress Note ---
Date of Service May 17, 2019 Assessment & Plan (1) Diabetic hyperosmolar non-ketotic state: Was sent from doctor office for high BS more in the 800 Not taking insulin due to fear. She is not comfortable to give insulin to herself Hba1c 16.5 (05/15/19) She was starting on insulin drip and intravenous fluid Pharmacy on board for glycemic management Case discussed with pharmacist recommended to continue Novolin 70/30 with 65 units in the morning before breakfast and 35 units in the evening with dinner that will be simple and easy for the patient to use. She does not feel comfortable to inject insulin to herself and would like to stay for another night. Plan to discharge home tomorrow Continue monitor BS (2) Hyponatremia: Na on admission 124 Related to Hyperglycemia Na improves back to normal (3) Acute worsening of stage 3 chronic kidney disease: Acute Kidney failure due to dehydration Received IV fluid Creatinine back to normal stable (4) Generalized weakness: Secondary to hypoglycemia PT/OT on board Stable (5) Hypertrophic cardiomyopathy: With diastolic heart failure No acute heart failure at this time Denies any cardiac symptoms Stable (6) CHF (congestive heart failure): No acute CHF Lasix on hold due to elevated creatinine Will resume lasix on discharge (7) CADENCE (obstructive sleep apnea): Could not tolerate CPAP at home Continue current dose of oxygen stable (8) COPD (chronic obstructive pulmonary disease): No acute exacerbation (9) Hypertension: BP stable DVT prophylaxis Subcu heparin CODE STATUS-full Disposition will discharge tomorrow once comfortable to inject insulin to herself Follow up with your PCP Subjective Pt was seen and examined Lying in bed with no distress Pt said that she feels fine She said that she does not feel comfortable yet to give herself the insulin She said that she is very anxious to inject the insulin to herself She said that she injected the insulin by herself last night and this morning She would like to stay for another night to give herself the insulin tonight and in the morning Denies any chest pain, palpitation, dizziness and SOB Physical Exam Physical Exam: General- No acute distress Head- atraumatic Eyes- PERRL, EOMI, ENT- oropharynx clear Neck- supple, no JVD Lungs- clear to auscultation Heart- regular rhythm; no murmur Abdomen- normal bowel sounds, soft, nontender Extremities- no calf tenderness Neuro- alert, oriented x 3; PERRL, EOMI; no facial palsy; no dysarthria Skin- warm & dry Results & Data Vital Signs (Past 12 Hours) Vital Signs Temp Pulse Resp BP Pulse Ox 05/17/19 08:19 36.5 C 69 19 123/79 94
[2019-05-17] MEDS: METFORMIN HCL 500 MG TAB PO SCH (17:36)
[2019-05-17] MEDS: ACETAMINOPHEN 325 MG TAB PO PRN (19:45)
[2019-05-17] MEDS: ROPINIROLE HCL 0.25 MG TABLET PO SCH (20:33)
[2019-05-17] MEDS: FOLIC ACID 1 MG TAB PO SCH (20:34)
[2019-05-17] MEDS: MIRTAZAPINE TAB 15 MG TAB PO SCH (20:35)
[2019-05-17] MEDS: MONTELUKAST SODIUM 10 MG TABLET PO SCH (20:35)
[2019-05-17] MEDS: cephALEXin 500 MG CAP PO SCH (20:50)
[2019-05-18] MEDS ORDERED: GLUCAGON FOR INJ 1 MG VIAL SQ PRN (02:30)
[2019-05-18] MEDS ORDERED: CARBOHYDRATES FOR HYPOGLYCEMIA PO PRN (02:30)
[2019-05-18] MEDS ORDERED: GLUCOSE 10 TABS/TUBE PO PRN (02:30)
[2019-05-18] MEDS ORDERED: GLUCOSE 40% GEL 15 GM TUBE PO PRN (02:30)
[2019-05-18] MEDS ORDERED: DEXTROSE 50% 50 ML SYRINGE IV PRN (02:30)
[2019-05-18 07:29] LABS: BUN Creatinine Ratio 11.6 (10-20); Calcium 8.4 mg/dl (8.5-10.1); Creatinine Clr Calc Pharmacy 49.9 ml/min; Est GFR (African American) 72.2; Est GFR (Non-African American) 62.3; Magnesium 1.7 mg/dl (1.8-2.4); Potassium 4.6 mmol/L (3.5-5.1)
[2019-05-18 07:30] LABS: Phosphorus 2.8 mg/dl (2.5-4.9)
[2019-05-18] MEDS ORDERED: INSULIN HUMAN 70% NPH/30% REGULAR SC SCH ×2 (07:45→16:30)
[2019-05-18] MEDS ORDERED: MAGNESIUM SULFATE / D5W 1 GM/100 ML BAG IV ONE (08:25)
[2019-05-18] MEDS: ATORVASTATIN 40 MG TAB PO SCH (08:53)
[2019-05-18] MEDS: METOPROLOL SUCC 50MG EXT REL TAB PO SCH (08:54)
[2019-05-18] MEDS: PANTOprazole 40 MG TAB PO SCH (08:54)
[2019-05-18] MEDS: METFORMIN HCL 500 MG TAB PO SCH (08:56)
[2019-05-18] MEDS: ASPIRIN 81 MG ECTAB PO SCH (08:56)
[2019-05-18] MEDS: NYSTATIN SUSP 500,000 U/5 ML UDC PO SCH (08:56)
[2019-05-18] MEDS: FLUTICASONE/SALMETEROL (ADVAIR) 500/50 INH 14 PUFF INH SCH (08:56)
[2019-05-18] MEDS: cephALEXin 500 MG CAP PO SCH (08:56)
[2019-05-18] MEDS: GABAPENTIN 600 MG TAB PO SCH (08:56)
[2019-05-18] MEDS: HEPARIN SOD 5,000 UNIT/0.5 ML VIAL SQ SCH (08:57)
[2019-05-18] MEDS: INSULIN ASPART 100 UNITS/ML 3 ML PEN SC SCH ×2 (09:00→12:49)
--- NOTE | 2019-05-18 09:32 | Pharmacy Report ---
Pharmacy Glycemic Short Note 2 - Date of Service May 18, 2019 - Glycemic Short BSG Results (Last 24 hours): 05/17/19 05/17/19 05/17/19 11:36 16:33 20:13 Glucose POC Glucose 206 H 139 H 92 05/18/19 05/18/19 05/18/19 02:16 02:31 03:43 Glucose POC Glucose 58 L* 84 152 H 05/18/19 05/18/19 07:00 07:24 Glucose 99 POC Glucose 95 OUTPATIENT ANTIDIABETIC REGIMEN: * Metformin 1000mg BID * Possible prescriptions for insulin, but did not take ASSESSMENT: 05/18 * Patient rec'd 103 units of insulin yesterday * BSGs were great yesterday but she had a hypoglycemic episode this AM (58 mg/dL). Since she was hypoglycemic and I expect insulin needs to decrease further with the metformin just starting last night, will decrease both AM and PM doses by ~20% initially. After seeing pre-lunch BSG, it appears patient may still need the higher dose of 70/30 in the AM but will recommend lower dose on discharge to prevent hypoglycemia at home. 05/17 * Ms. Velasquez received 107 units of insulin yesterday. She had a hypoglycemic episode prior to dinner so evening Novolin 70/30 was cut in half (due to the drop in BSG from 260 -> 63 and large amount of basal already on board. She re ceived 5 units of correctional insulin overnight so the 70/30 dose could have been increased slightly but there was concern for further hypoglycemia using a mixed insulin. * She dropped as low as 80 mg/dL overnight but is back up to 155 mg/dL this AM. Current 70/30 regimen will provide 100 units/day, which is a slight reduction from yesterday's total so this is reasonable to continue. 05/16 * Patient reportedly not compliant with outpatient antidiabetic regimen, long standing hyperglycemic symptoms, presenting with BSG > 800 mg/dL and A1c of 16.5%. * Pt initially started on IV insulin infusion + fluids per [facility] protocol * Pt transitioned off of insulin infusion yesterday- was a very long and slow transition due to fluctuating hyperglycemia. * Pt received 69 units of SQ insulin + ~ 50+ units of IV insulin per infusion. * Average rate ~ 2units/hr even with SQ insulin on board * Will increase total daily dose to ~110 units/day and titrate based on BSG trends PLAN FOR INPATIENT GLYCEMIC CONTROL: * Continue metformin 1 gm BID * Basal/prandial insulin - decrease by 20% * Novolin 70/30 55 units qAM, 25 units w/ dinner * Bolus insulin - no change * NovoLog per scale ACHS or Q6hrs while NPO * Goal Range: Low 120 mg/dL - High 160 mg/dL {slightly elevated goal range d/t elevated A1c) * Correction Factor: 15 mg/dL/unit PLAN FOR DISCHARGE: * A1c = 16.5% on 05/15/19 * Pt specific goal A1c is ~ 8% * A1c goal should be individualized based on risk of hypo/drug AE, disease duration, life expectancy, relevant co-morbidities, established vascular complication, patient attitude and expected treatment efforts, resources and support system. * A1c is greater than or equal to 10% consider metformin + combination injectable therapy (basal insulin + rapid acting insulin OR GLP1-RA) * Metformin, if not contraindicated and if tolerated, is the preferred initial pharmacological agent for type 2 diabetes. Metformin has a long- standing evidence base for efficacy and safety, is inexpensive, and may reduce risk of cardiovascular events. 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 * Plan for premixed insulin with Novolin 70/30 at dosing of 55 units SQ AM with breakfast + 25 units SQ PM with dinner (the 70/30 option was discussed with the patient on 05/16) * Pt will need DSME and support through the diabetes MTM clinic at [facility] * Patient was asking provider this AM about the possibility of doing a once daily insulin. With her A1c, the only way this would be possible would be a once daily Lantus + a once daily (or once weekly) GLP-1, which has a higher cost associated with it. I recommended that patient f/u as an outpatient to discuss further options depending on insurance coverage. Additional lifestyle modifications: * Support Patient Self-Management * Healthy Lifestyle (diet, exercise, and smoking cessation) * Disease self-management (SMBG) * Prevention of complications (BP, Lipid goals, Immunizations) * Consider outpatient Diabetes Self-Management Education & Support
[2019-05-18] MEDS ORDERED: MAGNESIUM OXIDE 400 MG TAB PO ONE (10:50)
--- NOTE | 2019-05-18 12:32 | Hospitalist Progress Note ---
Date of Service May 18, 2019 Assessment & Plan (1) Diabetic hyperosmolar non-ketotic state: Was sent from doctor office for high BS more in the 800 Not taking insulin due to fear. She is not comfortable to give insulin to herself Hba1c 16.5 (05/15/19) She was starting on insulin drip and intravenous fluid Pharmacy on board for glycemic management She does not like needle and she would like to take insulin only once daily over twice a day I spoke to pharmacy to try to change the insulin to Lantus Insulin 70/30 will be easier for pt to manage since she does not have to do any pre-meal insulin injection Case discussed with pharmacist recommended tto decrease Novolin 70/30 to 55 uni ts in the morning before breakfast and 25 units in the evening with dinner that will be simple and easy for the patient to use. Follow up with PCP with BS log Advised pt to follow a healthy diabetes diet with low carb and limited concentrated sweet intake (2) Hyponatremia: Na on admission 124 Related to Hyperglycemia Na improves back to normal (3) Acute worsening of stage 3 chronic kidney disease: Acute Kidney failure due to dehydration Received IV fluid Creatinine back to normal stable (4) Generalized weakness: Secondary to hypoglycemia PT/OT on board Stable (5) Hypertrophic cardiomyopathy: With diastolic heart failure No acute heart failure at this time Denies any cardiac symptoms Stable (6) CHF (congestive heart failure): No acute CHF Lasix on hold due to elevated creatinine Resume lasix on discharge (7) CADENCE (obstructive sleep apnea): Could not tolerate CPAP at home Continue current dose of oxygen stable (8) COPD (chronic obstructive pulmonary disease): No acute exacerbation (9) Hypertension: BP stable DVT prophylaxis Subcu heparin CODE STATUS-full Disposition Follow up with your PCP Dr. Garsia on 05/20 @ 1:15 PM Subjective Pt was seen and examined Lying in bed with no distress Pt said that she feels fine Pt said that she does not like needle She said that she would like to take insulin only once day over twice a day I spoke to pharmacy to try to change the insulin to Lantus Insulin 70/30 will be easier for pt to manage since she does not have to do any pre-meal injection BS dropped in the 50's in the middle of the night Denies any chest pain, palpitation, dizziness and SOB Physical Exam Physical Exam: General- No acute distress Head- atraumatic Eyes- PERRL, EOMI, ENT- Left sided jaw due to toothache due to rotten teeth Neck- supple, no JVD Lungs- clear to auscultation Heart- regular rhythm; no murmur Abdomen- normal bowel sounds, soft, nontender Extremities- no calf tenderness Neuro- alert, oriented x 3; PERRL, EOMI; no facial palsy; no dysarthria Skin- warm & dry Results & Data Vital Signs (Past 12 Hours) Vital Signs Temp Resp BP Pulse Ox 05/18/19 07:30 36.6 C 18 119/73 93
[2019-05-18] MEDS ORDERED: FUROSEMIDE 20 MG TAB PO ONE (12:50)
[2019-05-18] MEDS: DULOXETINE HCL 60 MG CAP PO SCH (13:30)
--- NOTE | 2019-05-18 22:49 | Discharge Summary ---
Date of Service May 18, 2019 Admission HPI Per Admitting Provider CHIEF COMPLAINT: Hyperglycemia. HISTORY OF PRESENT ILLNESS: This is a 59-year-old female with past medical history significant for poorly controlled type 2 diabetes, allergic rhinitis, obstructive sleep apnea, hypertension, irritable bowel syndrome, pancreatic cyst, obesity, chronic kidney disease stage III, history of chronic migraines, history of coronary artery disease, chronic diastolic heart failure, history of HOCM, family history of sudden cardiac , status post ICD placement, history of bowel perforation status post surgery, history of mood disorder, presents with hyperglycemia. The patient was recently in the hospital for CHF and chest pain. The patient went to see her director power for chronic kidney stage III where the labs were done which showed sugars were running in 800s and she was advised to come to the ER. The patient states she is supposed to be on insulin, but she is not taking insulin. She says she does not know how to take insulin and sugars were running high at home and she is feeling generalized weakness, sore all over, sore mouth. She says she has poor dentition, supposed to see a dentist but because of insurance she was not seen by dentist and also complains of difficulty swallowing. Appetite is not that great. Frequent micturition. Denies any fever, chills, ambulating okay without any help, but she has some staggering gait with leaning more to left side. Denies any blurred vision. On and off headaches, currently no headaches. No blurred vision, no earache, no runny nose, no cough, no fever, no chills, no chest pain, no shortness of breath, no nausea, no vomiting, no abdominal pain. Currently resting comfortably and hemodynamically stable. Admission Exam Per Admitting Provider GENERAL: The patient is moderate build, not in acute distress. VITAL SIGNS: Temperature 36.8, pulse 71, respiratory rate 18, blood pressure 119/76, oxygen 98%. HEENT: No pallor, no icterus. Pupils equal, round, and reactive to light. No oral mucosa or thrush seen. NECK: No JVD. No neck masses. No carotid bruits. CARDIOVASCULAR: S1, S2 heard, regular rate and rhythm. No murmur, rub or gallop. RESPIRATORY SYSTEM: Normal AP diameter. No accessory muscle use. No wheezing, no crackles. ABDOMEN: Soft, bowel sounds present. Nontender. No distention. CENTRAL NERVOUS SYSTEM: Cranial nerves II-XII grossly intact, nonfocal. EXTREMITIES: No edema, no erythema. Principal Diagnosis Diabetic hyperosmolar non-ketotic state Hyponatremia Acute worsening of stage 3 chronic kidney disease Hypertrophic cardiomyopathy CHF (congestive heart failure) CADENCE COPD Generalized weakness Discharge Exam General- No acute distress Head- atraumatic Eyes- PERRL, EOMI, ENT- Left sided jaw due to toothache due to rotten teeth Neck- supple, no JVD Lungs- clear to auscultation Heart- regular rhythm; no murmur Abdomen- normal bowel sounds, soft, nontender Extremities- no calf tenderness Neuro- alert, oriented x 3; PERRL, EOMI; no facial palsy; no dysarthria Skin- warm & dry Discharge Data Allergies Allergy/AdvReac Type Severity Reaction Status Date / Time Penicillins Allergy Intermediate Flushing, Verified 05/14/19 23:29 ITCHING Sulfa (Sulfonamide Allergy Intermediate swelling Verified 05/14/19 23:29 Antibiotics) doxycycline Allergy Unknown UNKNOWN Verified 05/14/19 23:29 adhesive AdvReac Intermediate blistering Verified 05/14/19 23:29 ibuprofen AdvReac Unknown PER PT, MD Verified 05/14/19 23:29 TOLD PT NOT TO TAKE ANYMORE. Consultations 05/14/19 23:23 ED Decision to Admit Stat 05/15/19 01:03 Consult Case Management - Discharge Planning Routine Ordered Studies 05/15/19 01:03 CT head/brain wo con Urgent CT head/brain wo con CLINICAL HISTORY: 59 years-old Female presenting with imbalance. TECHNIQUE: Multidetector CT imaging of the head was performed without the use of intravenous contrast. IV contrast: None. One or more dose lowering techniques were used consistent with the principles of ALARA (as low as reasonably achievable), including automatic exposure control, mA or kV adjustment to individual patient size, and/or use of iterative reconstruction. COMPARISON: 02/01/2018. CT DOSE (mGy.cm): The estimated cumulative dose is 537.48 mGy.cm. 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 Proportional ventricular and sulcal prominence, likely age-related parenchymal volume loss. No hemorrhage. Brain parenchyma normal in appearance with preserved franklin-white differentiation. No acute territorial infarct. No mass effect or midline shift. No extra-axial fluid collection. Paranasal sinuses and mastoid air cells clear. Calvarium intact. IMPRESSION: 1. No acute intracranial abnormality. Electronically signed by: Hilton Salazar M.D. 05/15/2019 6:53 AM Dictated: 05/[birth year]/1938 Transcribed: 05/15/1939 XR chest 1V portable CLINICAL HISTORY: weakness COMPARISON STUDY: Chest CT February 28, 2019. FINDINGS: Lung volumes are normal. Lungs are clear. There is no pneumothorax or pleural effusion. Cardiac size is unchanged. Mediastinal contours are normal. There is no evidence for pulmonary edema. Dual lead right subclavian pacer/AICD remains in place IMPRESSION: No acute cardiopulmonary findings. No change in appearance of the chest. Electronically signed by: Phil Devries M.D. 05/14/2019 10:39 PM Dictated: 05/14/192237 Transcribed: 05/14/192237 Hospital Course (1) Diabetic hyperosmolar non-ketotic state: Was sent from doctor office for high BS more in the 800 Not taking insulin due to fear. She is not comfortable to give insulin to herself Hba1c 16.5 (05/15/19) She was starting on insulin drip and intravenous fluid Pharmacy on board for glycemic management She does not like needle and she would like to take insulin only once daily over twice a day I spoke to pharmacy to try to change the insulin to Lantus Insulin 70/30 will be easier for pt to manage since she does not have to do any pre-meal insulin injection Case discussed with pharmacist recommended tto decrease Novolin 70/30 to 55 units in the morning before breakfast and 25 units in the evening with dinner that will be simple and easy for the patient to use. Follow up with PCP with BS log Advised pt to follow a healthy diabetes diet with low carb and limited concentrated sweet intake (2) Hyponatremia: Na on admission 124 Related to Hyperglycemia Na improves back to normal (3) Acute worsening of stage 3 chronic kidney disease: Acute Kidney failure due to dehydration Received IV fluid Creatinine back to normal stable (4) Generalized weakness: Secondary to hypoglycemia PT/OT on board Stable (5) Hypertrophic cardiomyopathy: With diastolic heart failure No acute heart failure at this time Denies any cardiac symptoms Stable (6) CHF (congestive heart failure): No acute CHF Lasix on hold due to elevated creatinine Resume lasix on discharge (7) CADENCE (obstructive sleep apnea): Could not tolerate CPAP at home Continue current dose of oxygen stable (8) COPD (chronic obstructive pulmonary disease): No acute exacerbation (9) Hypertension: BP stable DVT prophylaxis Subcu heparin CODE STATUS-full Disposition Follow up with your PCP Dr. Garsia on 05/20 @ 1:15 PM Total Time Total Time Spent Total Time Spent (In Minutes): 35 minutes Total Time Includes: Examination of the Patient, Discharge Planning, Medication Reconciliation, Communication With Other Providers and Other Discharge Plan Discharge Items Patient Disposition: Home - Self-Care Reason For Visit: HYPERGLYCEMIA Discharge Diagnosis: Diabetic hyperosmolar non-ketotic state Hyponatremia Acute worsening of stage 3 chronic kidney disease Hypertrophic cardiomyopathy CHF (congestive heart failure) CADENCE COPD Generalized weakness Discharge Goals: Decrease discomfort, Improve disease control, Improve function, Increase independence and Improve nutritional status Activity: Resume your previous activity Non-emergency contact: Primary Care Provider Call non-emergency contact if: you have any medication questions Follow-up/Referrals: Suad De León, [Primary Care Provider] - Diet: Carb Consistent or DM2 and Heart Healthy Addtl Provider Instructions: Follow up with your primary care provider Dr. Garsia on 05/20 @ 1:15 PM Continue monitor your Blood sugar and bring your BS log at your next appointment with your physician Continue Novolin 70/30 to 55 units in the morning before breakfast and 25 units in the evening with dinner Follow up a health diabetes diet with low carb and limited concentrated sweet You can call the diabetic educatorat [phone] if you have question about the diabetes Follow up with a local dentist for evaluation Prescriptions: New cephalexin 500 mg Capsule 500 mg PO BID 4 Days Qty: 8 RF: 0 Novolin 70/30 U-100 Insulin 100 unit/mL (70-30) Suspension 55 unit SC QDB Qty: 10 RF: 0 Novolin 70/30 U-100 Insulin 100 unit/mL (70-30) Suspension 25 unit SC QDD Qty: 10 RF: 0 Continued duloxetine 60 mg Capsule,Delayed Release(Dr/Ec) 60 mg PO QDL RF: 0 mirtazapine 30 mg Tablet 30 mg PO HS RF: 0 omeprazole 40 mg Capsule,Delayed Release(Dr/Ec) 40 mg PO QAM RF: 0 folic acid 1 mg Tablet 1 mg PO HS RF: 0 sumatriptan succinate 25 mg Tablet 50 mg PO DIRECTED PRN (Reason: Headache) RF: 0 metformin 500 mg Tablet 1,000 mg PO BIDM RF: 0 atorvastatin 40 mg Tablet 40 mg PO QAM Qty: 30 RF: 0 metoprolol succinate 50 mg Tablet Extended Release 24 Hr 100 mg PO BID Qty: 60 RF: 0 nitroglycerin [Nitrostat] 0.4 mg Tablet, Sublingual 0.4 mg sublingual UD PRN (Reason: chest pain) Qty: 30 RF: 0 gabapentin 600 mg Tablet 600 mg PO TID Qty: 90 RF: 0 ropinirole 0.25 mg Tablet 0.5 mg PO HS Qty: 60 RF: 0 pantoprazole 40 mg Tablet,Delayed Release (Dr/Ec) 40 mg PO QAM Qty: 30 RF: 0 fluticasone propion-salmeterol [Advair Diskus] 500-50 mcg/dose Blister With Device 1 puff inhalation BID Qty: 2 RF: 0 albuterol sulfate 2.5 mg /3 mL (0.083 %) solution for nebulization 3 ml Inhalation Q4H PRN (Reason: Wheezing) RF: 0 furosemide [Lasix] 40 mg Tablet 40 mg PO 5XWK RF: 0 ondansetron HCl [Zofran] 4 mg Tablet 4 mg PO TID PRN (Reason: Nausea) RF: 0 diphenoxylate-atropine [Lomotil] 2.5-0.025 mg Tablet 1 tab PO QID PRN (Reason: Diarrhea) RF: 0 furosemide 40 mg Tablet 80 mg PO 2XWK RF: 0 aspirin [Ecotrin Low Strength] 81 mg tablet,delayed release (DR/EC) 81 mg PO QAM RF: 0 spironolactone 25 mg tablet 12.5 mg PO QAM RF: 0 montelukast 10 mg tablet 10 mg PO HS RF: 0 Stand-Alone Forms: [facility] Discharge Orders: Discharge Order (Routine); Ordered 05/18/19 Ordered By: Winnie Ramirez Admission Data Admit Date/Time: 05/15/19 00:13 Attending Provider: Winnie Ramirez Admit Provider: Mikey Mayberry Primary Care Provider: Suad De León Other Providers: Mikey Mayberry ; Mariana Emmanuel Service: Medical Other Interventions: Discharge Summary Assessment (RN) Last Done: 05/18/19 13:20 DC Date/Time DO NOT enter until pt leaves facility: 05/18/19 13:50
== END 2019-05-18 13:50 | disposition home or self-care (01) | DRG 638 ==
LOC: ED 21:45 → SUATTDRO 05-15 00:13 → 2S 05-15 00:13 → 2N 05-15 12:43

== ENCOUNTER 2019-06-30 16:10 | Inpatient (IN) ==
[2019-06-30] MEDS ORDERED: ASPIRIN CHEW 324 MG PO STA (16:25)
--- NOTE | 2019-06-30 16:39 | XRay Report ---
XR chest 1V portable CLINICAL HISTORY: 59 years-old Female presenting with Chest Pain. TECHNIQUE: Portable upright AP view of the chest was obtained. COMPARISON: 06/01/2019. FINDINGS: Right subclavian implanted cardiac defibrillator with leads in right atrium and right ventricular ape x. Atherosclerosis of the aortic arch. Cardiac silhouette moderately enlarged. Pulmonary vascular pro minence increased from prior. No focal opacity. No large effusion or pneumothorax. Osseous structures normal. Upper abdomen normal. IMPRESSION: 1. Cardiomegaly with volume overload. No junior pulmonary edema. Electronically signed by: Hilton Salazar M.D. 06/30/2019 4:38 PM
[2019-06-30] MEDS ORDERED: FUROSEMIDE 40 MG/4 ML VIAL IV STA (16:49)
[2019-06-30 18:22] LABS: Basophils # (auto) 0.02 K/uL (0-0.2); Basophils % (auto) 0.2 %; Eosinophils % (auto) 0.8 %; Hematocrit (blood only) 31.5 % (37-47); Hemoglobin 10.5 g/dL (12.0-16.0); Immature Granulocytes # (auto) 0.09 K/uL (0.00-0.02); Immature Granulocytes % (auto) 0.7 %; Lymphocytes # (auto) 1.25 K/uL (1.2-3.4); Lymphocytes % (auto) 9.8 %; Mean Corpuscular Hemoglobin 30.3 pg (25-34); Mean Corpuscular Hgb Conc 33.3 g/dL (32-36); Mean Corpuscular Volume 90.8 fL (80-100); Mean Platelet Volume 9.1 fL (7.4-10.4); Monocytes # (auto) 0.38 K/uL (0.11-0.59); Neutrophils # (auto) 10.92 K/uL (1.4-6.5); Neutrophils % (auto) 85.5 %; Platelet Count 235 K/uL (130-400); RDW Coefficient of Variation 15.2 % (11.5-14.5); RDW Standard Deviation 49.5 fL (36.4-46.3); Red Blood Count 3.47 M/uL (4.2-5.4); White Blood Count 12.76 K/uL (4.8-10.8)
[2019-06-30 18:38] LABS: Albumin Level 3.2 gm/dl (3.4-5.0); BUN Creatinine Ratio 10.5 (10-20); Calcium 8.1 mg/dl (8.5-10.1); Creatinine Clr Calc Pharmacy 41.9 ml/min; Est GFR (African American) 56.5; Est GFR (Non-African American) 48.7; Potassium 3.9 mmol/L (3.5-5.1)
[2019-06-30 18:53] LABS: Albumin Globulin Ratio 0.9 (0.9-2); Bilirubin,Total 0.8 mg/dl (0.2-1); Globulin 3.6 gm/dl (2.5-4.0); Total Protein 6.8 gm/dl (6.4-8.2); Troponin I 0.199 ng/ml (0-0.045)
[2019-06-30 20:36] LABS: Appearance Urine Clear (Clear); Bilirubin Urine Negative (Negative); Blood Urine Negative (Negative); Color Urine Yellow; Glucose Urine UA Negative (Negative); Ketones Urine Negative (Negative); Leukocyte Esterase Urine Negative (Negative); Nitrite Urine Negative (Negative); Protein Urine Negative (Negative); Specific Gravity Urine 1.014 (1.000-1.030); Urobilinogen Urine Negative (Negative)
--- NOTE | 2019-06-30 21:04 | History & Physical Report ---
Date of Service June 30, 2019 Assessment & Plan (1) Acute on chronic diastolic CHF (congestive heart failure): Mrs. Velasquez is a pleasant 59 yr old female who has a significant past medical history of chronic diastolic CHF, hypertrophic cardiomyopathy status post AICD, T2DM, HTN, HLD, CADENCE on nocturnal oxygen, CKD stage III depression with anxiety, mood disorder, history of migraine who presents to [facility] ED secondary to shortness of breath, increased weight gain and edema x2 days. Pt with 11lb weight gain in 2 labs, abdominal bloating, SOB and edema consistent with A/C Diastolic CHF Exac In ED pt received 40mg IV lasix x 1 Troponin elevated 0.199, pro bnp 7456 (baseline 4500~) EKG NSR, unchanged Admit to telemetry Lasix 40mg IV ordered for 7 am - assess response prior to further dosing daily weights strict I and O O2 supplemental cycle cardiac enzymes last echo 11/2018 hyperdynamic EF 70%, grade 2 diastolic dysfunction, hocm will not order repeat echo at this time follow bmp (2) Elevated troponin: chronically elevated troponin No chest pain, acs likely secondary to demand ischemia given CHF trend trop x 2 (3) Dysuria: pt complains of dysuria, hematuria (occurred 1 epsiode 2 days ago) afebrile but wbc 12k Urinalysis not consistent with infection monitor (4) Diabetes mellitus, type 2: A1C 16.9 04/2019 --> admitted for [facility] current outpt regimen of metformin, tradjena Humalog mix 75-25 55 Qam 25 Qpm glucose low in ED 68, pt felt "shaky" so given drink will consult glycemic pharmacist for assistance (5) Hypertension: blood pressure on low side, likely secondary to receiving diuresis monitor (6) HLD (hyperlipidemia): continue statin (7) Depression with anxiety: pt on multiple psychiatric medications including cymbalta, zoloft, mirtazpine (8) CKD (chronic kidney disease), stage III: baseline Cr 1.0-1.1 bun/cr 13 and 1.20 today monitor given diuretic use (9) Cardiac defibrillator in place: 2/2 to HOCM last interrogated 05/19/19 (10) CADENCE (obstructive sleep apnea): on 2L O2 at HS intolerant to cpap (11) Restless leg syndrome: continue requip (12) DVT prophylaxis: Lovenox Disposition: discharge to home when able Follow up: PCP Dr. De León upon discharge Patient was seen and examined in collaboration with Dr. Ramirez, please see addendum History of Present Illness Chief Complaint: SOB, increased weight gain, edema x 2 days. Primary Care Provider: Suad De León DO Mrs. Velasquez is a pleasant 59 yr old female who has a significant past medical history of chronic diastolic CHF, hypertrophic cardiomyopathy status post AICD, T2DM, HTN, HLD, CADENCE on nocturnal oxygen, CKD stage III depression with anxiety, mood disorder, history of migraine who presents to [facility] ED secondary to shortness of breath, increased weight gain and edema x2 days. Over the past 2 to 3 days patient is noticed increased shortness breath at rest and with exertion, 11 pound weight gain, abdominal bloating, lower extremity edema, orthopnea. Her baseline weight is approximately 152-153lb and this morning she was 163lb. She also elicits to being off balance, mild dry cough, dysuria, episode of hematuria x1 2 days ago. She denies any fever, chills, sweats, lightheadedness, dizziness, syncope, chest pain, palpitations, nausea, vomiting. She does have chronic diarrhea noting she has had it for many years. She takes Lomotil for this. Admits to being compliant with medication. Denies any significant change in diet or trigger. Of significance patient recently confined to [facility] from 05/15 to 05/18 secondary to HHS with blood sugar greater than 800 on admission. Her A1c was 16.5 on 05/15/2019. Her insulin regimen has been adjusted and blood sugars have been maintaining between 120 and 140. Allergies Allergy/AdvReac Type Severity Reaction Status Date / Time Penicillins Allergy Intermediate Flushing, Verified 06/30/19 17:09 Itchiness Sulfa (Sulfonamide Allergy Intermediate Swelling Verified 06/30/19 17:09 Antibiotics) doxycycline Allergy Unknown Unknown Verified 06/30/19 17:09 adhesive AdvReac Intermediate Blistering Verified 06/30/19 17:09 ibuprofen AdvReac Unknown Unknown Verified 06/30/19 17:09 Home Medications Home Medications Medication Instructions Recorded Confirmed Type duloxetine 60 mg PO DAILY 08/09/18 06/30/19 History folic acid 1 mg PO HS 08/09/18 06/30/19 History mirtazapine 30 mg PO HS 08/09/18 06/30/19 History omeprazole 40 mg PO QAM 08/09/18 06/30/19 History sumatriptan succinate 50 mg PO DIRECTED PRN 08/09/18 06/30/19 History metformin 1,000 mg PO BIDM 08/12/18 06/30/19 History albuterol sulfate 3 ml INHALATION Q4H PRN 09/09/18 06/30/19 History diphenoxylate-atropine [Lomotil] 1 tab PO QID PRN 12/19/18 06/30/19 History atorvastatin 40 mg PO QAM #30 tab 02/19/19 06/30/19 Rx aspirin [Ecotrin Low Strength] 81 mg PO QAM 04/12/19 06/30/19 History montelukast 10 mg PO HS 04/12/19 06/30/19 History Humalog Mix 75-25 KwikPen 25 unit SUBCUT QPM 06/30/19 06/30/19 History Humalog Mix 75-25 KwikPen 55 unit SUBCUT QAM 06/30/19 06/30/19 History Tradjenta 5 mg PO DAILY 06/30/19 06/30/19 History albuterol sulfate [Ventolin HFA] 2 puff INHALATION Q4H PRN 06/30/19 06/30/19 History dicyclomine 10 mg PO BID 06/30/19 06/30/19 History duloxetine 30 mg PO DAILY 06/30/19 06/30/19 History escitalopram oxalate 5 mg PO DAILY 06/30/19 06/30/19 History fluticasone propion-salmeterol 1 inh INHALATION Q12H 06/30/19 06/30/19 History [Advair Diskus] gabapentin 300 mg PO TID 06/30/19 06/30/19 History hydroxyzine HCl 10 mg PO Q6H PRN 06/30/19 06/30/19 History metoprolol succinate 25 mg PO DAILY 06/30/19 06/30/19 History nitroglycerin [Nitrostat] 0.4 mg SUBLINGUAL DIRECTED PRN 06/30/19 06/30/19 History ondansetron 4 mg PO Q8H PRN 06/30/19 06/30/19 History ropinirole 0.25 mg PO HS 06/30/19 06/30/19 History sertraline 100 mg PO DAILY 06/30/19 06/30/19 History spironolactone [Aldactone] 12.5 mg PO DAILY 06/30/19 06/30/19 History Past Med/Surg History Medical History Depression with anxiety (Chronic) Elevated troponin (Chronic) CKD (chronic kidney disease), stage III (Chronic) GERD (gastroesophageal reflux disease) (Chronic) HLD (hyperlipidemia) (Chronic) Hypertension (Chronic) Anxiety (Chronic) Cardiac defibrillator in place (Chronic) 2014 CADENCE (obstructive sleep apnea) (Chronic) on nocturnal O2 2L Hypertrophic cardiomyopathy (Chronic) CHF (congestive heart failure) Asthma (Chronic) COPD (chronic obstructive pulmonary disease) (Chronic) Fatty (change of) liver, not elsewhere classified (Chronic) Arthritis (Chronic) Diabetes mellitus, type 2 (Chronic) Pancreatic cyst (Chronic) Depression (Chronic) Hydronephrosis of right kidney (Chronic) Elevated troponin (Chronic) Restless leg syndrome (Chronic) Surgical History History of appendectomy (Resolved) 1970s H/O section (Resolved) 1979 & 1982 History of colostomy reversal (Resolved) bowel perf 2013 with colostomy reversed in 2014 H/O hernia repair (Resolved) 2016 Status post partial resection of colon (Chronic) "diverticulitis 11/05/14" Status post internal cardiac defibrillator procedure (Chronic) "2014" Family History Other Hypertrophic cardiomyopathy Stomach cancer Thyroid disorder Social History Preferred Language: Icelandic Communication Ability: Effective Director Of Early Childhood Required: No Beliefs That Will Affect Care: None marital status: Current Living Situation: Spouse 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 Physical Exam Physical Exam: Gen: WD/WN, F, NAD, sitting up in bed, pleasant, conversing easily Head: Normocephalic, Atraumatic Eyes: Sclera normal, no conjunctival injection, PERRLA, EOMI ENT: Gross hearing intact, normal pharynx, mucous membranes moist Neck: supple, no adenopathy, No JVD, no bruit, Resp: Clear to auscultation b/l, no wheeze, rales, rhonchi. 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 Extremities: trace ankle and pretibial edema bilaterally Skin: warm, moist, no rash, negative turgor, cap refill < 2sec Neuro: Alert and oriented x 3, speech normal, good mood/affect, cran nerve 2-12 intact grossly : deferred Results & Data Vital Signs (Past 12 Hours) Vital Signs Temp Pulse Pulse Resp BP BP Pulse Ox 06/30/19 20:40 72 18 90/71 L 99 06/30/19 19:06 74 18 103/58 L 97 06/30/19 19:01 72 19 103/58 L 100 06/30/19 19:00 71 14 100 06/30/19 18:32 80 21 100 06/30/19 18:30 81 81 22 159/70 H 159/70 H 100 06/30/19 16:12 37.3 C 88 24 122/65 89 L Laboratory Results Short CBC 06/30/19 06/30/19 Range/Units 18:13 18:13 WBC 12.76 H (4.8-10.8) K/uL Hgb 10.5 L (12.0-16.0) g/dL Hct 31.5 L (37-47) % Plt Count 235 (130-400) K/uL Creatinine 1.20 (0.6-1.2) mg/dl Troponin I 0.199 H* (0-0.045) ng/ml NT-Pro-B Natriuret Pep 7456 H (0-900) pg/ml BMP 06/30/19 18:13 Sodium 145 Potassium 3.9 Chloride 108 H Carbon Dioxide 31 BUN 13 Creatinine 1.20 Glucose 68 L Calcium 8.1 L Cardiac Enzymes 06/30/19 Range/Units 18:13 Troponin I 0.199 H* (0-0.045) ng/ml Liver Function 06/30/19 Range/Units 18:13 Total Bilirubin 0.8 (0.2-1) mg/dl AST 25 (15-37) U/L ALT 30 (12-78) U/L Alkaline Phosphatase 152 H (45-117) U/L Albumin 3.2 L (3.4-5.0) gm/dl Urine 06/30/19 Range/Units 19:35 Urine Color Yellow Urine Appearance Clear (Clear) Urine pH 5.0 (4.5-7.5) Ur Specific [place] 1.014 (1.000-1.030) Urine Protein Negative (Negative) Urine Glucose (UA) Negative (Negative) Diagnostic Findings CXR: IMPRESSION: 1. Cardiomegaly with volume overload. No junior pulmonary edema. Medications Administered Discontinued Medications Aspirin (Aspirin) 324 mg PO NOW STA Stop: 06/30/19 16:26 Last Admin: 06/30/19 16:45 Dose: 324 mg Documented by: [id number] Furosemide (Lasix) 40 mg IV NOW STA Stop: 06/30/19 16:50 Last Admin: 06/30/19 18:25 Dose: 40 mg Documented by: [id number] ECG Rate (beats per minute): 80 Rhythm: normal sinus Code Status & VTE Plan Code Status Full Code VTE Prophylaxis Plan VTE Prophylaxis will be ordered: Yes Supervising Physician Co-Signing Physician Notes Pt was seen and examined. Agreed with Khushbu DOHERTY exam, assessment and plan. 59 yr old female who has a significant past medical history of chronic diastolic CHF, hypertrophic cardiomyopathy status post AICD, T2DM, HTN, HLD, CADENCE on nocturnal oxygen, CKD stage III depression with anxiety, mood disorder, history of migraine who presents to [facility] ED for worsening SOB and weight gained. CXR showed cardiomegaly with volume overload. Her last echo 11/2018 showed hyperdynamic EF 70%, grade 2 diastolic dysfunction. Received lasix 40mg IV in the ER. Will reassess in am for additional lasix. Will monitor I/O. Follow up troponin. Cardiology consult. Will continue monitor closely in tele. MD Ashley (1) Diabetes mellitus, type 2 Chronic kidney disease stage: stage 3 (moderate) Diabetes mellitus complication detail: with chronic kidney disease Diabetes mellitus complication status: with kidney complications Diabetes mellitus snf insulin use: unspecified snf insulin use status Qualified Code(s): E11.22 - Type 2 diabetes mellitus with diabetic chronic kidney disease; N18.3 - Chronic kidney disease, stage 3 (moderate)
[2019-06-30] MEDS ORDERED: ONDANSETRON INJ 2 MG/ML 2 ML VIAL IV PRN (22:00)
[2019-06-30] MEDS ORDERED: GLUCOSE 40% GEL 15 GM TUBE PO PRN (22:00)
[2019-06-30] MEDS ORDERED: DEXTROSE 50% 50 ML SYRINGE IV PRN (22:00)
[2019-06-30] MEDS ORDERED: GLUCAGON FOR INJ 1 MG VIAL SQ PRN (22:00)
[2019-06-30] MEDS ORDERED: ALBUTEROL 0.083% NEBU SOLN 3 ML VIAL NEB PRN (22:00)
[2019-06-30] MEDS ORDERED: NITROGLYCERIN SL 0.4 MG/TAB TAB SL PRN (22:00)
[2019-06-30] MEDS ORDERED: CARBOHYDRATES FOR HYPOGLYCEMIA PO PRN (22:00)
[2019-06-30] MEDS ORDERED: MAGNESIUM HYDROXIDE SUSP 30 ML UDC PO PRN (22:00)
[2019-06-30] MEDS ORDERED: GLUCOSE 10 TABS/TUBE PO PRN (22:00)
[2019-06-30] MEDS ORDERED: ALUMINUM/MAGNESIUM SUSP 30 ML UDC PO PRN (22:00)
[2019-06-30] MEDS ORDERED: POLYETHYLENE (MIRALAX) 17 GM PACK PO PRN (22:00)
[2019-06-30] MEDS ORDERED: hydrOXYzine HCl 10 MG TAB PO PRN (22:00)
[2019-06-30] MEDS ORDERED: PHARMACY GLYCEMIC MGMT CONSULT PRN (22:17)
[2019-06-30] MEDS: DICYCLOMINE HCL 10 MG CAP PO SCH (23:11)
[2019-06-30] MEDS: FLUTICASONE/SALMETEROL (ADVAIR) 500/50 INH 14 PUFF INH SCH (23:11)
[2019-06-30] MEDS: MONTELUKAST SODIUM 10 MG TABLET PO SCH (23:11)
[2019-06-30] MEDS: ROPINIROLE HCL 0.25 MG TABLET PO SCH (23:11)
[2019-06-30] MEDS: MIRTAZAPINE TAB 15 MG TAB PO SCH (23:11)
[2019-06-30] MEDS: FOLIC ACID 1 MG TAB PO SCH (23:11)
[2019-06-30] MEDS: GABAPENTIN 300 MG CAP PO SCH (23:11)
[2019-06-30] MEDS: INSULIN ASPART 100 UNITS/ML 3 ML PEN SC SCH (23:14)
--- NOTE | 2019-06-30 23:33 | Emergency Department Note ---
Entered by Zita Grant acting as a scribe for Jarrod Cedeno DO History of Present Illness General Chief complaint: Shortness of Breath/Dyspnea Stated complaint: SOB, BACK PAIN, NECK PAIN, BURNING URINE, MILLARD Source: patient and old records reviewed History of Present Illness Provider complaint: shortness of breath Onset (ago): day(s) 2 Location: chest Radiation: non-radiation Pain Consistency: + constant Maximum Pain Intensity: 6 Associated symptoms: + chest pain (right upper) and + other (+weight gain, +right arm pain, -abdominal pain); no nausea/vomiting The patient is a 59 year old female who presents to the Emergency Room with complaints of constant shortness of breath since Sunday morning. She reports that she cannot walk 10 feet without getting short of breath. She states that she has swelling in her ankles bilaterally. She notes that she gained 11 pounds since Sunday; she states that she was 152, but is now 163. She notes that she has a history of COPD and wears 2 liters of oxygen at home. The patient reports that she has intermittent right sided chest pain that started on Sunday. She states that it feels like tightness in her chest that is exacerbated with movement of her right arm. She states that she has right arm pain. She reports that she has had similar past pain in her right arm which was reported as a pulled muscle. She denies any abdominal pain, nausea, or vomiting. Per the ED note, the patient was here on 06/01/19 and admitted on 05/15. It states that she has a history of HTN, CKD, CAD, diastolic CHF, and HOCM S/P ICD. Home Medications Home Medications Medication Instructions Recorded Confirmed Type duloxetine 60 mg PO DAILY 08/09/18 06/30/19 History folic acid 1 mg PO HS 08/09/18 06/30/19 History mirtazapine 30 mg PO HS 08/09/18 06/30/19 History omeprazole 40 mg PO QAM 08/09/18 06/30/19 History sumatriptan succinate 50 mg PO DIRECTED PRN 08/09/18 06/30/19 History metformin 1,000 mg PO BIDM 08/12/18 06/30/19 History albuterol sulfate 3 ml INHALATION Q4H PRN 09/09/18 06/30/19 History furosemide [Lasix] 40 mg PO 5XWK 11/28/18 06/30/19 History furosemide 80 mg PO 2XWK 12/03/18 06/30/19 History diphenoxylate-atropine [Lomotil] 1 tab PO QID PRN 12/19/18 06/30/19 History atorvastatin 40 mg PO QAM #30 tab 02/19/19 06/30/19 Rx aspirin [Ecotrin Low Strength] 81 mg PO QAM 04/12/19 06/30/19 History montelukast 10 mg PO HS 04/12/19 06/30/19 History albuterol sulfate [Ventolin HFA] 2 puff INHALATION Q4H PRN 06/30/19 06/30/19 History dicyclomine 10 mg PO BID 06/30/19 06/30/19 History duloxetine 30 mg PO DAILY 06/30/19 06/30/19 History escitalopram oxalate 5 mg PO DAILY 06/30/19 06/30/19 History fluticasone propion-salmeterol 1 inh INHALATION Q12H 06/30/19 06/30/19 History [Advair Diskus] gabapentin 300 mg PO TID 06/30/19 06/30/19 History hydroxyzine HCl 10 mg PO Q6H PRN 06/30/19 06/30/19 History insulin lispro protamin-lispro 25 unit SUBCUT QPM 06/30/19 06/30/19 History [Humalog Mix 75-25 KwikPen] insulin lispro protamin-lispro 55 unit SUBCUT QAM 06/30/19 06/30/19 History [Humalog Mix 75-25 KwikPen] linagliptin [Tradjenta] 5 mg PO DAILY 06/30/19 06/30/19 History metoprolol succinate 25 mg PO DAILY 06/30/19 06/30/19 History nitroglycerin [Nitrostat] 0.4 mg SUBLINGUAL DIRECTED PRN 06/30/19 06/30/19 History ondansetron 4 mg PO Q8H PRN 06/30/19 06/30/19 History ropinirole 0.25 mg PO HS 06/30/19 06/30/19 History sertraline 100 mg PO DAILY 06/30/19 06/30/19 History spironolactone [Aldactone] 12.5 mg PO DAILY 06/30/19 06/30/19 History Allergies Allergy/AdvReac Type Severity Reaction Status Date / Time Penicillins Allergy Intermediate Flushing, Verified 06/30/19 17:09 Itchiness Sulfa (Sulfonamide Allergy Intermediate Swelling Verified 06/30/19 17:09 Antibiotics) doxycycline Allergy Unknown Unknown Verified 06/30/19 17:09 adhesive AdvReac Intermediate Blistering Verified 06/30/19 17:09 ibuprofen AdvReac Unknown Unknown Verified 06/30/19 17:09 Past Med/Surg History Medical History Depression with anxiety (Chronic) Elevated troponin (Chronic) CKD (chronic kidney disease), stage III (Chronic) GERD (gastroesophageal reflux disease) (Chronic) HLD (hyperlipidemia) (Chronic) Hypertension (Chronic) Anxiety (Chronic) Cardiac defibrillator in place (Chronic) 2014 CADENCE (obstructive sleep apnea) (Chronic) on nocturnal O2 2L Hypertrophic cardiomyopathy (Chronic) CHF (congestive heart failure) Asthma (Chronic) COPD (chronic obstructive pulmonary disease) (Chronic) Fatty (change of) liver, not elsewhere classified (Chronic) Arthritis (Chronic) Diabetes mellitus, type 2 (Chronic) Pancreatic cyst (Chronic) Depression (Chronic) Hydronephrosis of right kidney (Chronic) Elevated troponin (Chronic) Restless leg syndrome (Chronic) Surgical History History of appendectomy (Resolved) 1970s H/O section (Resolved) 1979 & 1982 History of colostomy reversal (Resolved) bowel perf 2013 with colostomy reversed in 2014 H/O hernia repair (Resolved) 2016 Status post partial resection of colon (Chronic) "diverticulitis 11/05/14" Status post internal cardiac defibrillator procedure (Chronic) "2014" Family History Other Hypertrophic cardiomyopathy Stomach cancer Thyroid disorder Social History Preferred Language: [place] Communication Ability: Effective Track 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 and A total of 10 systems reviewed and were otherwise negative Physical Exam Vital Signs Vital Signs - 24 hr 06/30/19 16:12 06/30/19 16:25 06/30/19 18:30 Temperature 37.3 C Temperature Source Oral Sepsis Recent Fever Within 48 Hours No Sepsis New/Unexplained Change in Mental Status No Sepsis Action Taken by Nursing No Action Required Pulse Rate 88 81 Pulse Rate [Left] 81 Pulse Rate from SpO2 Sensor Respiratory Rate 24 22 Respiratory Effort / Characteristics Non-Labored Respiratory Depth Normal Blood Pressure 122/65 159/70 H Blood Pressure [Left Arm] 159/70 H Blood Pressure Mean 84 99 Blood Pressure Mean [Left Arm] 99 Pulse Oximetry 89 L 100 Oxygen Delivery Method Room Air Nasal Cannula Nasal Cannula Oxygen Flow Rate 2 2 06/30/19 18:32 06/30/19 19:00 06/30/19 19:01 Temperature Temperature Source Sepsis Recent Fever Within 48 Hours Sepsis New/Unexplained Change in Mental Status Sepsis Action Taken by Nursing Pulse Rate 80 71 72 Pulse Rate [Left] Pulse Rate from SpO2 Sensor 80 72 72 Respiratory Rate 21 14 19 Respiratory Effort / Characteristics Respiratory Depth Blood Pressure 103/58 L Blood Pressure [Left Arm] Blood Pressure Mean 73 Blood Pressure Mean [Left Arm] Pulse Oximetry 100 100 100 Oxygen Delivery Method Oxygen Flow Rate 06/30/19 19:06 06/30/19 20:40 Temperature Temperature Source Sepsis Recent Fever Within 48 Hours Sepsis New/Unexplained Change in Mental Status Sepsis Action Taken by Nursing Pulse Rate Pulse Rate [Left] 74 72 Pulse Rate from SpO2 Sensor Respiratory Rate 18 18 Respiratory Effort / Characteristics Respiratory Depth Blood Pressure Blood Pressure [Left Arm] 103/58 L 90/71 L Blood Pressure Mean Blood Pressure Mean [Left Arm] 73 77 Pulse Oximetry 97 99 Oxygen Delivery Method Nasal Cannula Oxygen Flow Rate 2 GENERAL: alert, sitting up in bed, anxious, disheveled, on chronic nasal cannula 2 Liters, talking in normal sentences. EYE EXAM: normal conjunctiva, PERRL and EOM's grossly intact OROPHARYNX: no exudate, no erythema, lips, buccal mucosa, and tongue normal and mucous membranes are moist NECK: supple, no nuchal rigidity, no adenopathy, non-tender, no JVD. LUNGS: Clear to auscultation. Normal chest wall mechanics HEART: no murmurs, S1 normal and S2 normal, CHEST: pacemaker located to upper right chest wall, tenderness same as stated, complete upper right chest wall with movement of right arm specifically AV abduction and rotation. ABDOMEN: abdomen soft, non-tender, normo-active bowel sounds, no masses, no rebound or guarding. BACK: Back is symmetrical on inspection and there is no deformity, no midline tenderness, no CVA tenderness. SKIN: no rashes and no bruising UPPER EXTREMITIES: upper extremities are grossly normal. LOWER EXTREMITIES: Faint pitting edema bilaterally. NEURO EXAM: Normal sensorium, cranial nerves II-XII grossly intact, normal speech, no gross weakness of arms, no gross weakness of legs. Course 1618: The patient was evaluated in room B11B, and a complete history and physical examination were performed. 0: I reviewed the patient's case with Dr. Brittany Vallecillo. He will evaluate the patient for further management. Consultations Consultation #1: Dr. Brittany Vallecillo Time: 18:20 Administered Medications Dicyclomine HCl (Bentyl) 10 mg PO BID MARILEE Stop: 07/30/19 21:59 Last Admin: 06/30/19 23:11 Dose: 10 mg Documented by: [id number] Folic Acid (Folvite) 1 mg PO HS MARILEE Stop: 07/30/19 21:59 Last Admin: 06/30/19 23:11 Dose: 1 mg Documented by: [id number] Gabapentin (Neurontin) 300 mg PO TID MARILEE Stop: 07/30/19 21:59 Last Admin: 06/30/19 23:11 Dose: 300 mg Documented by: [id number] Insulin Aspart (Novolog Flexpen) 0 units SC ACHS MARILEE Stop: 07/30/19 22:44 Last Admin: 06/30/19 23:14 Dose: Not Given Documented by: [id number] Cosigned by: [id number] Mirtazapine (Remeron) 30 mg PO HS MARILEE Stop: 07/30/19 21:59 Last Admin: 06/30/19 23:11 Dose: 30 mg Documented by: [id number] Montelukast Sodium (Singulair) 10 mg PO HS MARILEE Stop: 07/30/19 21:59 Last Admin: 06/30/19 23:11 Dose: 10 mg Documented by: [id number] Ropinirole HCl (Requip) 0.25 mg PO HS MARILEE Stop: 07/30/19 21:59 Last Admin: 06/30/19 23:11 Dose: 0.25 mg Documented by: [id number] Fluticasone/Salmeterol (Advair Diskus 500/50) 1 puffs INH Q12H MARILEE Stop: 07/30/19 21:59 Last Admin: 06/30/19 23:11 Dose: 1 puffs Documented by: [id number] Discontinued Medications Aspirin (Aspirin) 324 mg PO NOW STA Stop: 06/30/19 16:26 Last Admin: 06/30/19 16:45 Dose: 324 mg Documented by: [id number] Furosemide (Lasix) 40 mg IV NOW STA Stop: 06/30/19 16:50 Last Admin: 06/30/19 18:25 Dose: 40 mg Documented by: [id number] Medical Decision Making Differential Diagnosis Differential diagnosis: Etiologies such as infections, reactive airway disease, pneumonia, pneumothorax, COPD, CHF, cardiac ischemia, pulmonary embolism, musculoskeletal, gastrointestinal, as well as others were entertained. Medical Records Attestation: I reviewed the patient's medical records. Home Medications Current Medication List: was personally reviewed by me Laboratory Data Attestation: I reviewed the patient's lab results. Result diagrams: 06/30/19 18:13 06/30/19 18:13 Lab Results 06/30/19 06/30/19 06/30/19 Range/Units 18:13 18:13 19:35 WBC 12.76 H (4.8-10.8) K/uL RBC 3.47 L (4.2-5.4) M/uL Hgb 10.5 L (12.0-16.0) g/dL Hct 31.5 L (37-47) % MCV 90.8 (80-100) fL MCH 30.3 (25-34) pg MCHC 33.3 (32-36) g/dL RDW Std Deviation 49.5 H (36.4-46.3) fL RDW Coeff of Rolan 15.2 H (11.5-14.5) % Plt Count 235 (130-400) K/uL MPV 9.1 (7.4-10.4) fL Immature Gran % (Auto) 0.7 % Neut % (Auto) 85.5 % Lymph % (Auto) 9.8 % [place] % (Auto) 3.0 % Eos % (Auto) 0.8 % Baso % (Auto) 0.2 % Immature Gran # (Auto) 0.09 H (0.00-0.02) K/uL Neut # (Auto) 10.92 H (1.4-6.5) K/uL Lymph # (Auto) 1.25 (1.2-3.4) K/uL [place] # (Auto) 0.38 (0.11-0.59) K/uL Eos # (Auto) 0.10 (0-0.5) K/uL Baso # (Auto) 0.02 (0-0.2) K/uL Sodium 145 (136-145) mmol/L Potassium 3.9 (3.5-5.1) mmol/L Chloride 108 H (98-107) mmol/L Carbon Dioxide 31 (21-32) mmol/L Anion Gap 6.0 (3-11) BUN 13 (7-18) mg/dl Creatinine 1.20 (0.6-1.2) mg/dl Est Cr Clr Drug Dosing 41.9 ml/min Est GFR ( Amer) 56.5 Est GFR (Non-Af Amer) 48.7 BUN/Creatinine Ratio 10.5 (10-20) Glucose 68 L (70-99) mg/dl Calcium 8.1 L (8.5-10.1) mg/dl Total Bilirubin 0.8 (0.2-1) mg/dl AST 25 (15-37) U/L ALT 30 (12-78) U/L Alkaline Phosphatase 152 H (45-117) U/L Troponin I 0.199 H* (0-0.045) ng/ml NT-Pro-B Natriuret Pep 7456 H (0-900) pg/ml Total Protein 6.8 (6.4-8.2) gm/dl Albumin 3.2 L (3.4-5.0) gm/dl Globulin 3.6 (2.5-4.0) gm/dl Albumin/Globulin Ratio 0.9 (0.9-2) Lipase 75 (73-393) U/L Urine Color Yellow Urine Appearance Clear (Clear) Urine pH 5.0 (4.5-7.5) Ur Specific [place] 1.014 (1.000-1.030) Urine Protein Negative (Negative) Urine Glucose (UA) Negative (Negative) Urine Ketones Negative (Negative) Urine Blood Negative (Negative) Urine Nitrite Negative (Negative) Urine Bilirubin Negative (Negative) Urine Urobilinogen Negative (Negative) Ur Leukocyte Esterase Negative (Negative) Imaging Data Radiologist's Impression: Radiology results as stated below per my review and the radiologist's interpretation: XR chest 1V portable CLINICAL HISTORY: 59 years-old Female presenting with Chest Pain. TECHNIQUE: Portable upright AP view of the chest was obtained. COMPARISON: 06/01/2019. FINDINGS: Right subclavian implanted cardiac defibrillator with leads in right atrium and right ventricular apex. Atherosclerosis of the aortic arch. Cardiac silhouette moderately enlarged. Pulmonary vascular prominence increased from prior. No focal opacity. No large effusion or pneumothorax. Osseous structures normal. Upper abdomen normal. IMPRESSION: 1. Cardiomegaly with volume overload. No junior pulmonary edema. Electronically signed by: Hilton Salazar M.D. 06/30/2019 4:38 PM ECG Data Attestation: I personally reviewed and interpreted this ECG as follows: Indication: SOB/dyspnea Rate (beats per minute): 80 Rhythm: sinus rhythm Findings: + other (normal axis) and + ST depression (unspecific in high lateral leads); no PVC Comparison ECG Date: from (05/17/19) Change: no significant change Blood Pressure Blood Pressure Findings: Low blood pressure Blood Pressure Disposition: further management by hospitalist KRISTY Narrative Patient is a 59-year-old female with a past medical history of hokum, CAD, CKD, COPD and diastolic heart failure presents the ER for 11 pound weight gain in the past 3 to 4 days associated with shortness of breath and some chest pain with movement of her right upper extremity. Her right arm appears to be muscular sk eletal in nature. She notes she does take Lasix and has not missed any doses. She is unable to walk more than 10 feet with significant dyspnea. Chronically on 2 L. Labs show mild leukocytosis of 12,000. There is a mild anemia 10.5. Mild thrombocytopenia. BMP was remarkable for slightly low glucose. LFTs and bilirubin was unremarkable. Troponin was detectable at 0.199. This is elevated off of her baseline of about 0.122. BMP was elevated as well. UA was negative. Chest x-ray was unremarkable. Patient was given IV Lasix. Patient was updated bedside. Patient was admitted to the hospitalist for increasing shortness of breath elevated troponin of baseline along with dyspnea with exertion. Impression & Plan CHF (congestive heart failure), BRUSH (dyspnea on exertion), Elevated troponin Discharge Plan Visit Data *Final* Discharge Date/Time: 06/30/19 21:30 Chief Complaint: Shortness of Breath/Dyspnea Stated Complaint: SOB, BACK PAIN, NECK PAIN, BURNING URINE, MILLARD ED Provider: Jarrod Cedeno Discharge Problem: CHF (congestive heart failure), BRUSH (dyspnea on exertion), Elevated troponin Patient Disposition: Admitted As Inpatient Discharge Instructions Interventions: ED Discharge Assessment Last Done: 06/30/19 21:30 The scribe's documentation has been prepared under my direction and personally reviewed by me in its entirety. I confirm that the note above accurately reflects all work, treatment, procedures, and medical decision making performed by me.
[2019-07-01] MEDS ORDERED: INSULIN ASPART 100 UNITS/ML 3 ML PEN SC SCH (02:00)
[2019-07-01] MEDS: FUROSEMIDE 40 MG in SYRINGE 0 ML IV ONE ×2 (06:21→07:40)
[2019-07-01 06:32] LABS: Basophils # (auto) 0.01 K/uL (0-0.2); Basophils % (auto) 0.1 %; Eosinophils # (auto) 0.11 K/uL (0-0.5); Eosinophils % (auto) 1.1 %; Hematocrit (blood only) 30.9 % (37-47); Immature Granulocytes # (auto) 0.04 K/uL (0.00-0.02); Immature Granulocytes % (auto) 0.4 %; Lymphocytes # (auto) 1.39 K/uL (1.2-3.4); Lymphocytes % (auto) 13.6 %; Mean Corpuscular Hemoglobin 29.9 pg (25-34); Mean Corpuscular Hgb Conc 32.4 g/dL (32-36); Mean Corpuscular Volume 92.2 fL (80-100); Monocytes # (auto) 0.33 K/uL (0.11-0.59); Monocytes % (auto) 3.2 %; Neutrophils # (auto) 8.37 K/uL (1.4-6.5); Neutrophils % (auto) 81.6 %; Platelet Count 209 K/uL (130-400); RDW Coefficient of Variation 15.2 % (11.5-14.5); RDW Standard Deviation 50.4 fL (36.4-46.3); Red Blood Count 3.35 M/uL (4.2-5.4); White Blood Count 10.25 K/uL (4.8-10.8)
[2019-07-01 06:40] LABS: INR 1.1 (0.9-1.1); Prothrombin Time 11.1 Seconds (9.0-12.0)
[2019-07-01 07:04] LABS: BUN Creatinine Ratio 12.4 (10-20); Calcium 7.8 mg/dl (8.5-10.1); Creatinine Clr Calc Pharmacy 46.7 ml/min; Est GFR (African American) 64.9; Estimated Average Glucose 214 mg/dl; Hemoglobin A1C 9.1 % (4.5-5.6); Magnesium 1.4 mg/dl (1.8-2.4); Potassium 3.3 mmol/L (3.5-5.1)
[2019-07-01] MEDS ORDERED: POTASSIUM CHLORIDE 20 MEQ TABCR PO ONE (09:15)
[2019-07-01] MEDS: INSULIN ASPART 100 UNITS/ML 3 ML PEN SC SCH ×4 (09:40→20:59)
[2019-07-01] MEDS: INSULIN GLARGINE SOLOSTAR 100 UNITS/ML 3 ML PEN SC SCH ×2 (09:41→21:00)
[2019-07-01] MEDS: ATORVASTATIN 40 MG TAB PO SCH (09:42)
[2019-07-01] MEDS: SPIRONOLACTONE 25 MG TAB PO SCH (09:42)
[2019-07-01] MEDS: ESCITALOPRAM OXALATE 10 MG TAB PO SCH (09:43)
[2019-07-01] MEDS: DULOXETINE HCL 60 MG CAP PO SCH (09:43)
[2019-07-01] MEDS: DICYCLOMINE HCL 10 MG CAP PO SCH ×2 (09:43→20:20)
[2019-07-01] MEDS: PANTOprazole 40 MG TAB PO SCH (09:43)
[2019-07-01] MEDS: ASPIRIN 81 MG ECTAB PO SCH (09:43)
[2019-07-01] MEDS: ENOXAPARIN INJ 40 MG/0.4 ML SYR SQ SCH (09:44)
[2019-07-01] MEDS: METOPROLOL SUCC 25MG EXT REL TAB PO SCH (09:44)
[2019-07-01] MEDS: GABAPENTIN 300 MG CAP PO SCH ×3 (09:44→20:20)
[2019-07-01] MEDS: SERTRALINE HCL 100 MG TABLET PO SCH (09:44)
[2019-07-01] MEDS: DULOXETINE HCL 30 MG CAP PO SCH (09:44)
[2019-07-01] MEDS: MAGNESIUM SULFATE / D5W 1 GM/100 ML BAG IV SCH ×2 (09:45→13:43)
[2019-07-01] MEDS: ACETAMINOPHEN 325 MG TAB PO PRN ×2 (09:52→20:23)
[2019-07-01] MEDS: FLUTICASONE/SALMETEROL (ADVAIR) 500/50 INH 14 PUFF INH SCH ×2 (10:18→21:00)
--- NOTE | 2019-07-01 10:40 | Cardiology Consultation ---
Date of Consultation July 01, 2019 Assessment & Plan (1) Hypertrophic cardiomyopathy: (2) CHF (congestive heart failure): (3) Cardiac defibrillator in place: (4) Elevated troponin: (5) Diabetes mellitus, type 2: This patient has had multiple admissions mostly for congestive heart failu re. Her symptoms have improved quickly after IV diuretics. Once the patient is clinically stable, we will have to consider long-term goals. She may be a candidate for [facility] at home. History of Present Illness Attending Physician: Winnie Ramirez MD History of Present Illness This is a 59-year-old female who is well-known to the cardiology service with multiple hospital admissions. 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 She has had multiple hospital admissions this year due to volume overload and a history of hyperosmolar hyperglycemia due to diabetes and noncompliance with medications. She was in her usual state of health when she noted that she had been gaining weight and retaining fluid. She is on a diuretic protocol and increased her diuretics with no improvement and presented to the hospital. She has been given IV Lasix with a brisk diuresis and is feeling improved. Past medical history: 1.ApicalHypertrophic nonobstructive cardiomyopathy. 2.Genetic mutation MBCconsistent with cardiomyopathy. 3.Status post prophylactic pacer defibrillatorMedtronic, model - Evera MRI XT [id number], dual chamber, September 01, 2015. 4.Labile hypertension. 5.Obesity. 6. Obstructive sleep apnea/hypoventilationwith poor CPAP tolerance on chronic nocturnal oxygen supplementation 7.Chronic diastolic heart failure right greater than left 8. Chronic anxiety 9. Diabetes Allergies Allergy/AdvReac Type Severity Reaction Status Date / Time Penicillins Allergy Intermediate Flushing, Verified 06/30/19 17:09 Itchiness Sulfa (Sulfonamide Allergy Intermediate Swelling Verified 06/30/19 17:09 Antibiotics) doxycycline Allergy Unknown Unknown Verified 06/30/19 17:09 adhesive AdvReac Intermediate Blistering Verified 06/30/19 17:09 ibuprofen AdvReac Unknown Unknown Verified 06/30/19 17:09 Home Medications Home Medications Medication Instructions Recorded Confirmed Type duloxetine 60 mg PO DAILY 08/09/18 06/30/19 History folic acid 1 mg PO HS 08/09/18 06/30/19 History mirtazapine 30 mg PO HS 08/09/18 06/30/19 History omeprazole 40 mg PO QAM 08/09/18 06/30/19 History sumatriptan succinate 50 mg PO DIRECTED PRN 08/09/18 06/30/19 History metformin 1,000 mg PO BIDM 08/12/18 06/30/19 History albuterol sulfate 3 ml INHALATION Q4H PRN 09/09/18 06/30/19 History furosemide [Lasix] 40 mg PO 5XWK 11/28/18 06/30/19 History furosemide 80 mg PO 2XWK 12/03/18 06/30/19 History diphenoxylate-atropine [Lomotil] 1 tab PO QID PRN 12/19/18 06/30/19 History atorvastatin 40 mg PO QAM #30 tab 02/19/19 06/30/19 Rx aspirin [Ecotrin Low Strength] 81 mg PO QAM 04/12/19 06/30/19 History montelukast 10 mg PO HS 04/12/19 06/30/19 History albuterol sulfate [Ventolin HFA] 2 puff INHALATION Q4H PRN 06/30/19 06/30/19 History dicyclomine 10 mg PO BID 06/30/19 06/30/19 History duloxetine 30 mg PO DAILY 06/30/19 06/30/19 History escitalopram oxalate 5 mg PO DAILY 06/30/19 06/30/19 History fluticasone propion-salmeterol 1 inh INHALATION Q12H 06/30/19 06/30/19 History [Advair Diskus] gabapentin 300 mg PO TID 06/30/19 06/30/19 History hydroxyzine HCl 10 mg PO Q6H PRN 06/30/19 06/30/19 History insulin lispro protamin-lispro 25 unit SUBCUT QPM 06/30/19 06/30/19 History [Humalog Mix 75-25 KwikPen] insulin lispro protamin-lispro 55 unit SUBCUT QAM 06/30/19 06/30/19 History [Humalog Mix 75-25 KwikPen] linagliptin [Tradjenta] 5 mg PO DAILY 06/30/19 06/30/19 History metoprolol succinate 25 mg PO DAILY 06/30/19 06/30/19 History nitroglycerin [Nitrostat] 0.4 mg SUBLINGUAL DIRECTED PRN 06/30/19 06/30/19 History ondansetron 4 mg PO Q8H PRN 06/30/19 06/30/19 History ropinirole 0.25 mg PO HS 06/30/19 06/30/19 History sertraline 100 mg PO DAILY 06/30/19 06/30/19 History spironolactone [Aldactone] 12.5 mg PO DAILY 06/30/19 06/30/19 History Patient History Medical History Depression with anxiety (Chronic) Elevated troponin (Chronic) CKD (chronic kidney disease), stage III (Chronic) GERD (gastroesophageal reflux disease) (Chronic) HLD (hyperlipidemia) (Chronic) Hypertension (Chronic) Anxiety (Chronic) Cardiac defibrillator in place (Chronic) 2014 CADENCE (obstructive sleep apnea) (Chronic) on nocturnal O2 2L Hypertrophic cardiomyopathy (Chronic) CHF (congestive heart failure) Asthma (Chronic) COPD (chronic obstructive pulmonary disease) (Chronic) Fatty (change of) liver, not elsewhere classified (Chronic) Arthritis (Chronic) Diabetes mellitus, type 2 (Chronic) Pancreatic cyst (Chronic) Depression (Chronic) Hydronephrosis of right kidney (Chronic) Elevated troponin (Chronic) Restless leg syndrome (Chronic) Surgical History History of appendectomy (Resolved) 1970s H/O section (Resolved) 1979 & 1982 History of colostomy reversal (Resolved) bowel perf 2013 with colostomy reversed in 2014 H/O hernia repair (Resolved) 2016 Status post partial resection of colon (Chronic) "diverticulitis 11/05/14" Status post internal cardiac defibrillator procedure (Chronic) "2014" Family History Other Hypertrophic cardiomyopathy Stomach cancer Thyroid disorder Social History Preferred Language: Greenlandic Communication Ability: Effective Special Delivery Messenger Required: No Beliefs That Will Affect Care: None marital status: Current Living Situation: Spouse 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 Physical Exam Physical Exam: General: no acute distress and stated age Head: normocephalic, no masses, lesions, tenderness or abnormalities Eyes: conjunctiva are pink and non-injected, sclera clear Neck: supple, no adenopathy, no bruits, normal jugular venous pulse, no hepatojugular reflux Chest: normal shape and normal respiratory effort Lungs: clear to auscultation and percussion Cardiac Exam: - regular rate & rhythm, no murmurs gallops or rubs - normal S1, normal S2 Pulses: 2(+) throughout Abdomen: abdomen soft, non-tender, no abnormal masses and no hepatosplenomegaly Musculoskeletal: no gait disturbance, no joint inflammation, no deforming arthritis Extremities: no edema and no cyanosis Neuro: grossly normal exam Results & Data Vital Signs (Past 12 Hours) Vital Signs Temp Pulse Resp BP Pulse Ox 07/01/19 07:31 36.7 C 71 18 117/74 99 07/01/19 04:10 36.9 C 71 17 104/56 L 100 06/30/19 23:10 36.7 C 74 17 118/68 99 Laboratory Results Laboratory Results - last 24 hr 06/30/19 06/30/19 06/30/19 18:13 18:13 18:36 WBC 12.76 H RBC 3.47 L Hgb 10.5 L Hct 31.5 L MCV 90.8 MCH 30.3 MCHC 33.3 RDW Std Deviation 49.5 H RDW Coeff of Rolan 15.2 H Plt Count 235 MPV 9.1 Immature Gran % (Auto) 0.7 Neut % (Auto) 85.5 Lymph % (Auto) 9.8 [place] % (Auto) 3.0 Eos % (Auto) 0.8 Baso % (Auto) 0.2 Immature Gran # (Auto) 0.09 H Neut # (Auto) 10.92 H Lymph # (Auto) 1.25 [place] # (Auto) 0.38 Eos # (Auto) 0.10 Baso # (Auto) 0.02 PT INR Sodium 145 Potassium 3.9 Chloride 108 H Carbon Dioxide 31 Anion Gap 6.0 BUN 13 Creatinine 1.20 Est Cr Clr Drug Dosing 41.9 Est GFR ( Amer) 56.5 Est GFR (Non-Af Amer) 48.7 BUN/Creatinine Ratio 10.5 Glucose 68 L POC Glucose 83 Estimat Average Glucose Hemoglobin A1c Calcium 8.1 L Magnesium Total Bilirubin 0.8 AST 25 ALT 30 Alkaline Phosphatase 152 H Troponin I 0.199 H* NT-Pro-B Natriuret Pep 7456 H Total Protein 6.8 Albumin 3.2 L Globulin 3.6 Albumin/Globulin Ratio 0.9 Lipase 75 Urine Color Urine Appearance Urine pH Ur Specific [place] Urine Protein Urine Glucose (UA) Urine Ketones Urine Blood Urine Nitrite Urine Bilirubin Urine Urobilinogen Ur Leukocyte Esterase 06/30/19 06/30/19 07/01/19 19:35 23:05 00:07 WBC RBC Hgb Hct MCV MCH MCHC RDW Std Deviation RDW Coeff of Rolan Plt Count MPV Immature Gran % (Auto) Neut % (Auto) Lymph % (Auto) [place] % (Auto) Eos % (Auto) Baso % (Auto) Immature Gran # (Auto) Neut # (Auto) Lymph # (Auto) [place] # (Auto) Eos # (Auto) Baso # (Auto) PT INR Sodium Potassium Chloride Carbon Dioxide Anion Gap BUN Creatinine Est Cr Clr Drug Dosing Est GFR ( Amer) Est GFR (Non-Af Amer) BUN/Creatinine Ratio Glucose POC Glucose 150 H Estimat Average Glucose Hemoglobin A1c Calcium Magnesium Total Bilirubin AST ALT Alkaline Phosphatase Troponin I 0.218 H* NT-Pro-B Natriuret Pep Total Protein Albumin Globulin Albumin/Globulin Ratio Lipase Urine Color Yellow Urine Appearance Clear Urine pH 5.0 Ur Specific [place] 1.014 Urine Protein Negative Urine Glucose (UA) Negative Urine Ketones Negative Urine Blood Negative Urine Nitrite Negative Urine Bilirubin Negative Urine Urobilinogen Negative Ur Leukocyte Esterase Negative 07/01/19 07/01/19 07/01/19 01:56 06:05 06:05 WBC 10.25 RBC 3.35 L Hgb 10.0 L Hct 30.9 L MCV 92.2 MCH 29.9 MCHC 32.4 RDW Std Deviation 50.4 H RDW Coeff of Rolan 15.2 H Plt Count 209 MPV 9.0 Immature Gran % (Auto) 0.4 Neut % (Auto) 81.6 Lymph % (Auto) 13.6 [place] % (Auto) 3.2 Eos % (Auto) 1.1 Baso % (Auto) 0.1 Immature Gran # (Auto) 0.04 H Neut # (Auto) 8.37 H Lymph # (Auto) 1.39 [place] # (Auto) 0.33 Eos # (Auto) 0.11 Baso # (Auto) 0.01 PT INR Sodium 143 Potassium 3.3 L D Chloride 104 Carbon Dioxide 32 Anion Gap 7.0 BUN 13 Creatinine 1.07 Est Cr Clr Drug Dosing 46.7 Est GFR ( Amer) 64.9 Est GFR (Non-Af Amer) 56.0 BUN/Creatinine Ratio 12.4 Glucose 77 POC Glucose 91 Estimat Average Glucose Hemoglobin A1c Calcium 7.8 L Magnesium 1.4 L Total Bilirubin AST ALT Alkaline Phosphatase Troponin I NT-Pro-B Natriuret Pep Total Protein Albumin Globulin Albumin/Globulin Ratio Lipase Urine Color Urine Appearance Urine pH Ur Specific [place] Urine Protein Urine Glucose (UA) Urine Ketones Urine Blood Urine Nitrite Urine Bilirubin Urine Urobilinogen Ur Leukocyte Esterase 07/01/19 07/01/19 07/01/19 06:05 06:05 06:05 WBC RBC Hgb Hct MCV MCH MCHC RDW Std Deviation RDW Coeff of Rolan Plt Count MPV Immature Gran % (Auto) Neut % (Auto) Lymph % (Auto) [place] % (Auto) Eos % (Auto) Baso % (Auto) Immature Gran # (Auto) Neut # (Auto) Lymph # (Auto) [place] # (Auto) Eos # (Auto) Baso # (Auto) PT 11.1 INR 1.1 Sodium Potassium Chloride Carbon Dioxide Anion Gap BUN Creatinine Est Cr Clr Drug Dosing Est GFR ( Amer) Est GFR (Non-Af Amer) BUN/Creatinine Ratio Glucose POC Glucose Estimat Average Glucose 214 Hemoglobin A1c 9.1 H Calcium Magnesium Total Bilirubin AST ALT Alkaline Phosphatase Troponin I 0.195 H* NT-Pro-B Natriuret Pep Total Protein Albumin Globulin Albumin/Globulin Ratio Lipase Urine Color Urine Appearance Urine pH Ur Specific [place] Urine Protein Urine Glucose (UA) Urine Ketones Urine Blood Urine Nitrite Urine Bilirubin Urine Urobilinogen Ur Leukocyte Esterase 07/01/19 07:35 WBC RBC Hgb Hct MCV MCH MCHC RDW Std Deviation RDW Coeff of Rolan Plt Count MPV Immature Gran % (Auto) Neut % (Auto) Lymph % (Auto) [place] % (Auto) Eos % (Auto) Baso % (Auto) Immature Gran # (Auto) Neut # (Auto) Lymph # (Auto) [place] # (Auto) Eos # (Auto) Baso # (Auto) PT INR Sodium Potassium Chloride Carbon Dioxide Anion Gap BUN Creatinine Est Cr Clr Drug Dosing Est GFR ( Amer) Est GFR (Non-Af Amer) BUN/Creatinine Ratio Glucose POC Glucose 78 Estimat Average Glucose Hemoglobin A1c Calcium Magnesium Total Bilirubin AST ALT Alkaline Phosphatase Troponin I NT-Pro-B Natriuret Pep Total Protein Albumin Globulin Albumin/Globulin Ratio Lipase Urine Color Urine Appearance Urine pH Ur Specific [place] Urine Protein Urine Glucose (UA) Urine Ketones Urine Blood Urine Nitrite Urine Bilirubin Urine Urobilinogen Ur Leukocyte Esterase Medications Administered Current Inpatient Medications Acetaminophen (Tylenol) 650 mg PO Q4H PRN PRN Reason: Pain or Fever Stop: 07/30/19 21:59 Last Admin: 07/01/19 09:52 Dose: 650 mg Documented by: Al Hydrox/Mg Hydrox/Simethicone (Maalox) 15 ml PO Q4H PRN PRN Reason: Dyspepsia Stop: 07/30/19 21:59 Albuterol (Ventolin 0.083% 2.5mg/3ml) 2.5 mg NEB Q6R PRN PRN Reason: sob/wheezing Stop: 07/30/19 21:59 Aspirin (Ecotrin Ectab) 81 mg PO QAM [facility] Stop: 07/31/19 08:59 Last Admin: 07/01/19 09:43 Dose: 81 mg Documented by: Atorvastatin Calcium (Lipitor) 40 mg PO QAM [facility] Stop: 07/31/19 08:59 Last Admin: 07/01/19 09:42 Dose: 40 mg Documented by: Dextrose (Dextrose 50%) 25 - 50 ml IV UD PRN; Protocol PRN Reason: Hypoglycemia Protocol Stop: 07/30/19 21:59 Dicyclomine HCl (Bentyl) 10 mg PO BID [facility] Stop: 07/30/19 21:59 Last Admin: 07/01/19 09:43 Dose: 10 mg Documented by: Duloxetine HCl (Cymbalta) 30 mg PO DAILY [facility] Stop: 07/31/19 08:59 Last Admin: 07/01/19 09:44 Dose: 30 mg Documented by: Duloxetine HCl (Cymbalta) 60 mg PO DAILY [facility] Stop: 07/31/19 08:59 Last Admin: 07/01/19 09:43 Dose: 60 mg Documented by: Enoxaparin Sodium (Lovenox) 40 mg SQ Q24H [facility] Stop: 07/31/19 08:59 Last Admin: 07/01/19 09:44 Dose: 40 mg Documented by: Escitalopram Oxalate (Lexapro Tab) 5 mg PO DAILY [facility] Stop: 07/31/19 08:59 Last Admin: 07/01/19 09:43 Dose: 5 mg Documented by: Folic Acid (Folvite) 1 mg PO HS [facility] Stop: 07/30/19 21:59 Last Admin: 06/30/19 23:11 Dose: 1 mg Documented by: Furosemide (Lasix) 40 mg PO BID17 [facility] Stop: 07/31/19 16:59 Gabapentin (Neurontin) 300 mg PO TID [facility] Stop: 07/30/19 21:59 Last Admin: 07/01/19 09:44 Dose: 300 mg Documented by: Glucagon (Glucagen) 1 mg SQ UD PRN; Protocol PRN Reason: Hypoglycemia Protocol Stop: 07/30/19 21:59 Glucose (Glucose 40%) 15 - 30 gm PO UD PRN; Protocol PRN Reason: Hypoglycemia Protocol Stop: 07/30/19 21:59 Glucose (Dex4 Glucose) 4 - 8 tabs PO UD PRN; Protocol PRN Reason: Hypoglycemia Protocol Stop: 07/30/19 21:59 Hydroxyzine HCl (Vistaril) 10 mg PO Q6H PRN PRN Reason: Anxiety Stop: 07/30/19 21:59 Magnesium Sulfate/Dextrose (Magnesium Sulfate / D5w) 1 gm in 100 mls @ 100 mls/hr IV Q1H [facility] Stop: 07/01/19 11:14 Last Admin: 07/01/19 09:45 Dose: 100 mls/hr Documented by: Insulin Aspart (Novolog Flexpen) 0 units SC ACHS [facility] Stop: 07/30/19 22:44 Last Admin: 07/01/19 09:40 Dose: 4 units Documented by: Insulin Glargine (Lantus Solostar Pen) 20 units SC QAM [facility]; Protocol Stop: 07/31/19 08:59 Last Admin: 07/01/19 09:41 Dose: 20 units Documented by: Magnesium Hydroxide (Milk Of Magnesia) 30 ml PO Q12H PRN PRN Reason: Constipation Stop: 07/30/19 21:59 Metoprolol Succinate (Toprol Xl) 25 mg PO DAILY [facility] Stop: 07/31/19 08:59 Last Admin: 07/01/19 09:44 Dose: 25 mg Documented by: Mirtazapine (Remeron) 30 mg PO [facility] Stop: 07/30/19 21:59 Last Admin: 06/30/19 23:11 Dose: 30 mg Documented by: Miscellaneous (Carbohydrates For Hypoglycemia) 15 - 30 gm PO UD PRN PRN Reason: Hypoglycemia Treatment Stop: 07/30/19 21:59 Miscellaneous Information (Consult Glycemic Management Pharmacy) 1 ea N/A UD PRN; Protocol PRN Reason: Consult Stop: 07/30/19 22:16 Montelukast Sodium (Singulair) 10 mg PO [facility] Stop: 07/30/19 21:59 Last Admin: 06/30/19 23:11 Dose: 10 mg Documented by: Nitroglycerin (Nitrostat) 0.4 mg SL UD PRN PRN Reason: Chest Pain Stop: 07/30/19 21:59 Ondansetron HCl (Zofran) 4 mg IV Q6H PRN PRN Reason: Nausea Stop: 07/30/19 21:59 Pantoprazole Sodium (Protonix) [facility] Stop: 07/31/19 08:59 Last Admin: 07/01/19 09:43 Dose: 40 mg Documented by: Polyethylene Glycol (Miralax Powder Packet) 17 gm PO DAILY PRN PRN Reason: Constipation Stop: 07/30/19 21:59 Ropinirole HCl (Requip) 0.25 mg PO [facility] Stop: 07/30/19 21:59 Last Admin: 06/30/19 23:11 Dose: 0.25 mg Documented by: Fluticasone/Salmeterol (Advair Diskus 500/50) 1 puffs INH Q12H [facility] Stop: 07/30/19 21:59 Last Admin: 07/01/19 10:18 Dose: 1 puffs Documented by: Sertraline HCl (Zoloft) 100 mg PO DAILY [facility] Stop: 07/31/19 08:59 Last Admin: 07/01/19 09:44 Dose: 100 mg Documented by: Spironolactone (Aldactone) 12.5 mg PO DAILY [facility] Stop: 07/31/19 08:59 Last Admin: 07/01/19 09:42 Dose: 12.5 mg Documented by: (1) Diabetes mellitus, type 2 Diabetes mellitus intermediate insulin use: unspecified intermediate insulin use status Diabetes mellitus complication status: with kidney complications Diabetes mellitus complication detail: with chronic kidney disease Chronic kidney disease stage: stage 3 (moderate) Qualified Code(s): E11.22 - Type 2 diabetes mellitus with diabetic chronic kidney disease; N18.3 - Chronic kidney disease, stage 3 (moderate)
--- NOTE | 2019-07-01 12:00 | Pharmacy Report ---
Glycemic Control Consultation - Date of Service July 01, 2019 - Scope Scope: Glycemic Pharmacist consulted by Khushbu Conn on 06/30 for glycemic control and to write orders per [facility] inpatient glycemic control protocol - Objective Weight: 72.7 kg Accuchecks BSG (last 24hrs): 06/30/19 06/30/19 06/30/19 18:13 18:36 23:05 Glucose 68 L POC Glucose 83 150 H 07/01/19 07/01/19 07/01/19 01:56 06:05 07:35 Glucose 77 POC Glucose 91 78 Laboratory Data (last 24hrs): 06/30/19 07/01/19 18:13 06:05 Potassium 3.9 3.3 L D Carbon Dioxide 31 32 Anion Gap 6.0 7.0 Creatinine 1.20 1.07 Est Cr Clr Drug Dosing 41.9 46.7 HbA1c: Hemoglobin A1c 9.1 % (4.5-5.6) H 07/01/19 06:05 - Recent Pertinent Medications Outpatient Anti-diabetic Regimen: * Humalog mix 55 units Qam, 25 units with dinner, tradjenta 5 mg daily, metformin 1gm bid * A1c = 9.1% 07/01 Risk Factors for Insulin Resistance: * Diet: T2DM - Assessment & Plan Assessment & Plan: ASSESSMENT: * 59 year old female admitted with SOB/weight gain. PMHx significant for htn, hld, CKD, DM2 * Pharmacy consulted for glycemic management, last Humalog dose was 8/12 AM which was 55 units. Did not take any Humalog last night * Fasting BSG 78 mg/dL - denies any N/V, now eating - total outpatient dose of insulin 80 units / will split with basal/bolus 50:50 ratio * Will give 20 units of Lantus x1 this morning, then have scale on for tonight PLAN FOR INPATIENT GLYCEMIC CONTROL: * Basal insulin * Lantus 20 this AM * Lantus scale HS (5 units <110, 10 units for 110-180, 15 units >180) * Bolus insulin * NovoLog per scale ACHS or Q6hrs while NPO * Goal Range: Low 120 mg/dL - High 160 mg/dL * Correction Factor: 25 mg/dL/unit * Nutritional / Prandial insulin per carb ratio of 1 unit per 9 grams CHO consumed * Please note that the plan above was derived based on current level of insulin resistance and hospital stress. These recommendations are appropriate for inpatient admission only. Plan of care upon discharge will need to be reassessed to avoid potential outpatient hypo/hyperglycemia. Thank you.
--- NOTE | 2019-07-01 15:57 | Hospitalist Progress Note ---
Date of Service July 01, 2019 Assessment & Plan (1) Acute on chronic diastolic CHF (congestive heart failure): Present on admission worsening SOB and weight gained 11lbs ProBNP 7456 CXR showed cardiomegaly with volume overload Lasix IV 40mg given in the ER Last echo 11/2018 hyperdynamic EF 70% with grade 2 diastolic dysfunction Cardiology on board Diuretic changed to oral lasix 40mg BID Continue monitor I/O and fluid restriction (2) Elevated troponin: chronically elevated troponin Likely secondary to demand ischemia given CHF Troponin 0.199-->0.218-->0.195 EKG showed no ischemic changes Denies any chest pain Continue aspirin, statin and metoprolol (3) Dysuria: Complains of dysuria, hematuria (occurred 1 epsiode 2 days ago) Afebrile and WBC wnl today Urinalysis negative Continue monitor (4) Diabetes mellitus, type 2: A1C 16.9 04/2019 --> admitted for [facility] current outpt regimen of metformin, tradjena Humalog mix 75-25 55 Qam 25 Qpm Pharmacy on board for glycemic management Continue monitor BS (5) Hypertension: BP stable Continue monitor (6) HLD (hyperlipidemia): continue statin (7) Depression with anxiety: Continue cymbalta, zoloft, mirtazpine Stable (8) CKD (chronic kidney disease), stage III: Creat 1.07 today (baseline Cr 1.0-1.1) Continue monitor BMP (9) Cardiac defibrillator in place: Secondary o HOCM last interrogated 05/19/19 Stable (10) CADENCE (obstructive sleep apnea): on 2L O2 at HS intolerant to cpap (11) Restless leg syndrome: continue requip Electrolytes imbalance Mg 1.4 and K 3.3 Electrolytes replaced Monitor electrolytes (12) DVT prophylaxis: On Lovenox CODE STATUS FULL CODE Disposition Will discharge once medically stable Subjective Pt was seen and examined Lying in bed with no distress Pt said that she feels much better Denies any chest pain, palpitation, dizziness and SOB Physical Exam Physical Exam: General- No acute distress Head- atraumatic Eyes- PERRL, EOMI, ENT- oropharynx clear Neck- supple, no JVD Lungs- clear to auscultation Heart- regular rhythm; no murmur Abdomen- normal bowel sounds, soft, nontender Extremities- no calf tenderness, + trace edema Neuro- alert, oriented x 3; PERRL, EOMI; no facial palsy; no dysarthria Skin- warm & dry Results & Data Vital Signs (Past 12 Hours) Vital Signs Temp Pulse Resp BP Pulse Ox 07/01/19 15:10 36.6 C 82 18 112/72 93 07/01/19 11:39 36.5 C 75 16 107/47 L 96 07/01/19 07:31 36.7 C 71 18 117/74 99 07/01/19 04:10 36.9 C 71 17 104/56 L 100 (1) Diabetes mellitus, type 2 Chronic kidney disease stage: stage 3 (moderate) Diabetes mellitus complication detail: with chronic kidney disease Diabetes mellitus complication status: with kidney complications 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
[2019-07-01] MEDS: FUROSEMIDE 40 MG TAB PO SCH (18:17)
[2019-07-01] MEDS: ROPINIROLE HCL 0.25 MG TABLET PO SCH (20:20)
[2019-07-01] MEDS: MONTELUKAST SODIUM 10 MG TABLET PO SCH (20:20)
[2019-07-01] MEDS: MIRTAZAPINE TAB 15 MG TAB PO SCH (20:21)
[2019-07-01] MEDS: FOLIC ACID 1 MG TAB PO SCH (20:21)
[2019-07-02 07:44] LABS: BUN Creatinine Ratio 13.3 (10-20); Calcium 8.1 mg/dl (8.5-10.1); Creatinine Clr Calc Pharmacy 41.1 ml/min; Est GFR (African American) 55.9; Est GFR (Non-African American) 48.3; Potassium 3.5 mmol/L (3.5-5.1)
[2019-07-02] MEDS: INSULIN ASPART 100 UNITS/ML 3 ML PEN SC SCH ×4 (08:40→20:44)
[2019-07-02] MEDS: ENOXAPARIN INJ 40 MG/0.4 ML SYR SQ SCH (08:41)
[2019-07-02] MEDS: FUROSEMIDE 40 MG TAB PO SCH ×2 (08:42→16:55)
[2019-07-02] MEDS: INSULIN GLARGINE SOLOSTAR 100 UNITS/ML 3 ML PEN SC SCH ×2 (08:42→20:43)
[2019-07-02] MEDS: DICYCLOMINE HCL 10 MG CAP PO SCH ×2 (08:43→20:40)
[2019-07-02] MEDS: SPIRONOLACTONE 25 MG TAB PO SCH (08:43)
[2019-07-02] MEDS: ATORVASTATIN 40 MG TAB PO SCH (08:44)
[2019-07-02] MEDS: ASPIRIN 81 MG ECTAB PO SCH (08:44)
[2019-07-02] MEDS: DULOXETINE HCL 30 MG CAP PO SCH (08:44)
[2019-07-02] MEDS: DULOXETINE HCL 60 MG CAP PO SCH (08:44)
[2019-07-02] MEDS: ESCITALOPRAM OXALATE 10 MG TAB PO SCH (08:45)
[2019-07-02] MEDS: GABAPENTIN 300 MG CAP PO SCH ×3 (08:45→20:41)
[2019-07-02] MEDS: SERTRALINE HCL 100 MG TABLET PO SCH (08:46)
[2019-07-02] MEDS: FLUTICASONE/SALMETEROL (ADVAIR) 500/50 INH 14 PUFF INH SCH ×2 (08:46→21:44)
[2019-07-02] MEDS: METOPROLOL SUCC 25MG EXT REL TAB PO SCH (08:46)
[2019-07-02] MEDS: PANTOprazole 40 MG TAB PO SCH (08:46)
--- NOTE | 2019-07-02 11:31 | Cardiology Progress Note ---
Date of Service July 02, 2019 Assessment & Plan (1) Hypertrophic cardiomyopathy: (2) CHF (congestive heart failure): (3) Cardiac defibrillator in place: (4) Elevated troponin: (5) Diabetes mellitus, type 2: The patient has been diuresing. Her weight remains elevated and I think she needs additional IV diuretics. Plus she remains short of breath with activity such as going to the bathroom. I would keep her another day and continue the diuresis. I will order a UA, even though she had a negative urine analysis on admission order a follow-up due to her continued dysuria. Subjective The patient has no cardiac complaints but is having some dysuria. She did have a UA on admission that was unremarkable. Review of Systems Review of Systems: All systems reviewed & are unremarkable except as noted in HPI & below Nothing additional to add other than the dysuria. Physical Exam Physical Exam: General: no acute distress and stated age Head: normocephalic, no masses, lesions, tenderness or abnormalities Eyes: conjunctiva are pink and non-injected, sclera clear Neck: supple, no adenopathy, no bruits, normal jugular venous pulse, no hepatojugular reflux Chest: normal shape and normal respiratory effort Lungs: clear to auscultation and percussion Cardiac Exam: - regular rate & rhythm, no murmurs gallops or rubs - normal S1, normal S2 Pulses: 2(+) throughout Abdomen: abdomen soft, non-tender, no abnormal masses and no hepatosplenomegaly Musculoskeletal: no gait disturbance, no joint inflammation, no deforming arthritis Extremities: no edema and no cyanosis Neuro: grossly normal exam Results & Data Vital Signs (Past 12 Hours) Vital Signs Temp Pulse Pulse Pulse Resp BP BP 07/02/19 10:58 36.8 C 82 18 129/72 07/02/19 08:00 84 07/02/19 07:03 36.8 C 82 18 125/73 07/02/19 03:24 36.4 C L 84 16 130/63 Pulse Ox 07/02/19 10:58 90 07/02/19 08:00 07/02/19 07:03 97 07/02/19 03:24 99 Laboratory Results Laboratory Results - last 24 hr 07/01/19 07/01/19 07/01/19 11:22 16:31 20:33 Sodium Potassium Chloride Carbon Dioxide Anion Gap BUN Creatinine Est Cr Clr Drug Dosing Est GFR ( Amer) Est GFR (Non-Af Amer) BUN/Creatinine Ratio Glucose POC Glucose 123 H 114 H 131 H Calcium Magnesium 07/02/19 07/02/19 06:47 07:14 Sodium 141 Potassium 3.5 Chloride 102 Carbon Dioxide 31 Anion Gap 8.0 BUN 16 Creatinine 1.21 H Est Cr Clr Drug Dosing 41.1 Est GFR ( Amer) 55.9 Est GFR (Non-Af Amer) 48.3 BUN/Creatinine Ratio 13.3 Glucose 112 H POC Glucose 118 H Calcium 8.1 L Magnesium 2.0 Medications Administered Current Inpatient Medications Acetaminophen (Tylenol) 650 mg PO Q4H PRN PRN Reason: Pain or Fever Stop: 07/30/19 21:59 Last Admin: 07/01/19 20:23 Dose: 650 mg Documented by: Al Hydrox/Mg Hydrox/Simethicone (Maalox) 15 ml PO Q4H PRN PRN Reason: Dyspepsia Stop: 07/30/19 21:59 Albuterol (Ventolin 0.083% 2.5mg/3ml) 2.5 mg NEB Q6R PRN PRN Reason: sob/wheezing Stop: 07/30/19 21:59 Aspirin (Ecotrin Ectab) 81 mg PO QAM [facility] Stop: 07/31/19 08:59 Last Admin: 07/02/19 08:44 Dose: 81 mg Documented by: Atorvastatin Calcium (Lipitor) 40 mg PO QAM [facility] Stop: 07/31/19 08:59 Last Admin: 07/02/19 08:44 Dose: 40 mg Documented by: Dextrose (Dextrose 50%) 25 - 50 ml IV UD PRN; Protocol PRN Reason: Hypoglycemia Protocol Stop: 07/30/19 21:59 Dicyclomine HCl (Bentyl) 10 mg PO BID [facility] Stop: 07/30/19 21:59 Last Admin: 07/02/19 08:43 Dose: 10 mg Documented by: Duloxetine HCl (Cymbalta) 30 mg PO DAILY [facility] Stop: 07/31/19 08:59 Last Admin: 07/02/19 08:44 Dose: 30 mg Documented by: Duloxetine HCl (Cymbalta) 60 mg PO DAILY [facility] Stop: 07/31/19 08:59 Last Admin: 07/02/19 08:44 Dose: 60 mg Documented by: Enoxaparin Sodium (Lovenox) 40 mg SQ Q24H [facility] Stop: 07/31/19 08:59 Last Admin: 07/02/19 08:41 Dose: 40 mg Documented by: Escitalopram Oxalate (Lexapro Tab) 5 mg PO DAILY [facility] Stop: 07/31/19 08:59 Last Admin: 07/02/19 08:45 Dose: 5 mg Documented by: Folic Acid (Folvite) 1 mg PO HS [facility] Stop: 07/30/19 21:59 Last Admin: 07/01/19 20:21 Dose: 1 mg Documented by: Furosemide (Lasix) 40 mg PO BID17 [facility] Stop: 07/31/19 16:59 Last Admin: 07/02/19 08:42 Dose: 40 mg Documented by: Gabapentin (Neurontin) 300 mg PO TID [facility] Stop: 07/30/19 21:59 Last Admin: 07/02/19 08:45 Dose: 300 mg Documented by: Glucagon (Glucagen) 1 mg SQ UD PRN; Protocol PRN Reason: Hypoglycemia Protocol Stop: 07/30/19 21:59 Glucose (Glucose 40%) 15 - 30 gm PO UD PRN; Protocol PRN Reason: Hypoglycemia Protocol Stop: 07/30/19 21:59 Glucose (Dex4 Glucose) 4 - 8 tabs PO UD PRN; Protocol PRN Reason: Hypoglycemia Protocol Stop: 07/30/19 21:59 Hydroxyzine HCl (Vistaril) 10 mg PO Q6H PRN PRN Reason: Anxiety Stop: 07/30/19 21:59 Insulin Aspart (Novolog Flexpen) 0 units SC ACHS [facility] Stop: 07/30/19 22:44 Last Admin: 07/02/19 08:40 Dose: 5 units Documented by: Insulin Glargine (Lantus Solostar Pen) [facility] Protocol Stop: 07/31/19 08:59 Last Admin: 07/02/19 08:42 Dose: 20 units Documented by: Insulin Glargine (Lantus Solostar Pen) 0 units SC [facility]; Protocol Stop: 07/31/19 20:59 Last Admin: 07/01/19 21:00 Dose: 10 units Documented by: Magnesium Hydroxide (Milk Of Magnesia) 30 ml PO Q12H PRN PRN Reason: Constipation Stop: 07/30/19 21:59 Metoprolol Succinate (Toprol Xl) 25 mg PO DAILY [facility] Stop: 07/31/19 08:59 Last Admin: 07/02/19 08:46 Dose: 25 mg Documented by: Mirtazapine (Remeron) 30 mg PO [facility] Stop: 07/30/19 21:59 Last Admin: 07/01/19 20:21 Dose: 30 mg Documented by: Miscellaneous (Carbohydrates For Hypoglycemia) 15 - 30 gm PO UD PRN PRN Reason: Hypoglycemia Treatment Stop: 07/30/19 21:59 Miscellaneous Information (Consult Glycemic Management Pharmacy) 1 ea N/A UD PRN; Protocol PRN Reason: Consult Stop: 07/30/19 22:16 Montelukast Sodium (Singulair) 10 mg PO [facility] Stop: 07/30/19 21:59 Last Admin: 07/01/19 20:20 Dose: 10 mg Documented by: Nitroglycerin (Nitrostat) 0.4 mg SL UD PRN PRN Reason: Chest Pain Stop: 07/30/19 21:59 Ondansetron HCl (Zofran) 4 mg IV Q6H PRN PRN Reason: Nausea Stop: 07/30/19 21:59 Pantoprazole Sodium (Protonix) [facility] [place] Stop: 07/31/19 08:59 Last Admin: 07/02/19 08:46 Dose: 40 mg Documented by: Polyethylene Glycol (Miralax Powder Packet) 17 gm PO DAILY PRN PRN Reason: Constipation Stop: 07/30/19 21:59 Ropinirole HCl (Requip) 0.25 mg PO [facility] Stop: 07/30/19 21:59 Last Admin: 07/01/19 20:20 Dose: 0.25 mg Documented by: Fluticasone/Salmeterol (Advair Diskus 500/50) 1 puffs INH Q12H [facility] Stop: 07/30/19 21:59 Last Admin: 07/02/19 08:46 Dose: 1 puffs Documented by: Sertraline HCl (Zoloft) 100 mg PO DAILY [facility] Stop: 07/31/19 08:59 Last Admin: 07/02/19 08:46 Dose: 100 mg Documented by: Spironolactone (Aldactone) 12.5 mg PO DAILY [facility] Stop: 07/31/19 08:59 Last Admin: 07/02/19 08:43 Dose: 12.5 mg Documented by: (1) Diabetes mellitus, type 2 Chronic kidney disease stage: stage 3 (moderate) Diabetes mellitus complication detail: with chronic kidney disease Diabetes mellitus complication status: with kidney complications Diabetes mellitus terminal manager insulin use: unspecified terminal manager insulin use status Qualified Code(s): E11.22 - Type 2 diabetes mellitus with diabetic chronic kidney disease; N18.3 - Chronic kidney disease, stage 3 (moderate)
[2019-07-02 12:44] LABS: Appearance Urine Clear (Clear); Bacteria Urine Automated Negative (Negative); Bilirubin Urine Negative (Negative); Blood Urine Negative (Negative); Cast Urine Automated 0 /lpf (0-5); Color Urine Yellow; Epithelial Cell Urine Auto >30 /lpf (0-5); Glucose Urine UA Trace (Negative); Ketones Urine Negative (Negative); Leukocyte Esterase Urine Trace (Negative); Nitrite Urine Negative (Negative); Protein Urine Negative (Negative); RBC Urine Automated 0-4 /hpf (0-4); Specific Gravity Urine 1.014 (1.000-1.030); Urobilinogen Urine Negative (Negative)
--- NOTE | 2019-07-02 18:37 | Hospitalist Progress Note ---
Date of Service July 02, 2019 Assessment & Plan (1) Acute on chronic diastolic CHF (congestive heart failure): Present on admission worsening SOB and weight gained 11lbs ProBNP 7456 CXR showed cardiomegaly with volume overload Lasix IV 40mg given in the ER Last echo 11/2018 hyperdynamic EF 70% with grade 2 diastolic dysfunction Cardiology on board Continue lasix BID Might consider to change to IV lasix Continue monitor I/O and fluid restriction Monitor BMP (2) Elevated troponin: chronically elevated troponin Likely secondary to demand ischemia given CHF Troponin 0.199-->0.218-->0.195 EKG showed no ischemic changes Denies any chest pain Continue aspirin, statin and metoprolol (3) Dysuria: Complains of dysuria, hematuria (occurred 1 epsiode 2 days ago) Afebrile and WBC wnl today Urinalysis negative Continue monitor (4) Diabetes mellitus, type 2: A1C 16.9 04/2019 --> admitted for [facility] current outpt regimen of metformin, tradjena Humalog mix 75-25 55 Qam 25 Qpm Pharmacy on board for glycemic management Continue monitor BS (5) Hypertension: BP stable Continue monitor (6) HLD (hyperlipidemia): continue statin (7) Depression with anxiety: Continue cymbalta, zoloft, mirtazpine Stable (8) CKD (chronic kidney disease), stage III: Creat 1.2 today (baseline Cr 1.0-1.1) Continue monitor BMP (9) Cardiac defibrillator in place: Secondary o HOCM last interrogated 05/19/19 Stable (10) CADENCE (obstructive sleep apnea): on 2L O2 at HS intolerant to cpap (11) Restless leg syndrome: continue requip Electrolytes imbalance Electrolytes stable Monitor electrolytes (12) DVT prophylaxis: On Lovenox CODE STATUS FULL CODE Disposition Will discharge once medically stable Subjective Pt was seen and examined Sitting in bed with no distress Pt said that she continue to have SOB with exertion Denies any chest pain, palpitation and dizziness Physical Exam Physical Exam: General- No acute distress Head- atraumatic Eyes- PERRL, EOMI, ENT- oropharynx clear Neck- supple, no JVD Lungs- clear to auscultation Heart- regular rhythm; no murmur Abdomen- normal bowel sounds, soft, nontender Extremities- no calf tenderness, + trace edema Neuro- alert, oriented x 3; PERRL, EOMI; no facial palsy; no dysarthria Skin- warm & dry Results & Data Vital Signs (Past 12 Hours) Vital Signs Temp Pulse Pulse Resp BP BP Pulse Ox 07/02/19 16:00 92 H 07/02/19 15:53 36.7 C 92 H 21 121/68 94 07/02/19 10:58 36.8 C 82 18 129/72 90 07/02/19 08:00 84 07/02/19 07:03 36.8 C 82 18 125/73 97 (1) Diabetes mellitus, type 2 Chronic kidney disease stage: stage 3 (moderate) Diabetes mellitus complication detail: with chronic kidney disease Diabetes mellitus complication status: with kidney complications Diabetes mellitus penitentiary insulin use: unspecified penitentiary insulin use status Qualified Code(s): E11.22 - Type 2 diabetes mellitus with diabetic chronic kidney disease; N18.3 - Chronic kidney disease, stage 3 (moderate)
[2019-07-02] MEDS: MIRTAZAPINE TAB 15 MG TAB PO SCH (20:40)
[2019-07-02] MEDS: MONTELUKAST SODIUM 10 MG TABLET PO SCH (20:41)
[2019-07-02] MEDS: FOLIC ACID 1 MG TAB PO SCH (20:41)
[2019-07-02] MEDS: ROPINIROLE HCL 0.25 MG TABLET PO SCH (20:41)
[2019-07-03] MEDS: ACETAMINOPHEN 325 MG TAB PO PRN (01:37)
[2019-07-03 06:17] LABS: Hematocrit (blood only) 32.5 % (37-47); Hemoglobin 10.6 g/dL (12.0-16.0); Mean Corpuscular Hemoglobin 30.1 pg (25-34); Mean Corpuscular Hgb Conc 32.6 g/dL (32-36); Mean Corpuscular Volume 92.3 fL (80-100); Mean Platelet Volume 9.1 fL (7.4-10.4); Platelet Count 234 K/uL (130-400); RDW Coefficient of Variation 15.3 % (11.5-14.5); RDW Standard Deviation 50.3 fL (36.4-46.3); Red Blood Count 3.52 M/uL (4.2-5.4); White Blood Count 7.83 K/uL (4.8-10.8)
[2019-07-03 06:51] LABS: BUN Creatinine Ratio 16.2 (10-20); Calcium 8.4 mg/dl (8.5-10.1); Creatinine Clr Calc Pharmacy 44.7 ml/min; Est GFR (African American) 62.1; Est GFR (Non-African American) 53.6; Potassium 3.4 mmol/L (3.5-5.1)
[2019-07-03] MEDS ORDERED: POTASSIUM CHLORIDE 20 MEQ TABCR PO STA (07:40)
[2019-07-03] MEDS ORDERED: FUROSEMIDE 40 MG in SYRINGE 0 ML IV ONE (08:15)
[2019-07-03] MEDS: ESCITALOPRAM OXALATE 10 MG TAB PO SCH (08:51)
[2019-07-03] MEDS: DULOXETINE HCL 60 MG CAP PO SCH (08:51)
[2019-07-03] MEDS: DULOXETINE HCL 30 MG CAP PO SCH (08:51)
[2019-07-03] MEDS: ASPIRIN 81 MG ECTAB PO SCH (08:51)
[2019-07-03] MEDS: PANTOprazole 40 MG TAB PO SCH (08:52)
[2019-07-03] MEDS: GABAPENTIN 300 MG CAP PO SCH ×3 (08:52→20:55)
[2019-07-03] MEDS: SPIRONOLACTONE 25 MG TAB PO SCH (08:52)
[2019-07-03] MEDS: ATORVASTATIN 40 MG TAB PO SCH (08:52)
[2019-07-03] MEDS: DICYCLOMINE HCL 10 MG CAP PO SCH ×2 (08:52→20:55)
[2019-07-03] MEDS: METOPROLOL SUCC 25MG EXT REL TAB PO SCH (08:52)
[2019-07-03] MEDS: SERTRALINE HCL 100 MG TABLET PO SCH (08:52)
[2019-07-03] MEDS: ENOXAPARIN INJ 40 MG/0.4 ML SYR SQ SCH (08:56)
[2019-07-03] MEDS: INSULIN GLARGINE SOLOSTAR 100 UNITS/ML 3 ML PEN SC SCH (08:56)
[2019-07-03] MEDS: INSULIN ASPART 100 UNITS/ML 3 ML PEN SC SCH ×4 (08:57→20:24)
[2019-07-03] MEDS: FLUTICASONE/SALMETEROL (ADVAIR) 500/50 INH 14 PUFF INH SCH ×2 (09:10→20:58)
--- NOTE | 2019-07-03 12:51 | Cardiology Progress Note ---
Date of Service July 03, 2019 Assessment & Plan (1) Hypertrophic cardiomyopathy: (2) CHF (congestive heart failure): (3) Cardiac defibrillator in place: (4) Elevated troponin: (5) Diabetes mellitus, type 2: The patient is doing well. I would continue with diuresis. She is approaching a time when she can be discharged to outpatient follow-up. Subjective The patient feels well and is less short of breath. She did get additional IV Lasix this morning and continues to be an negative numbers. Review of Systems Review of Systems: All systems reviewed & are unremarkable except as noted in HPI & below Nothing additional. Physical Exam Physical Exam: General: no acute distress and stated age Head: normocephalic, no masses, lesions, tenderness or abnormalities Eyes: conjunctiva are pink and non-injected, sclera clear Neck: supple, no adenopathy, no bruits, normal jugular venous pulse, no hepatojugular reflux Chest: normal shape and normal respiratory effort Lungs: clear to auscultation and percussion Cardiac Exam: - regular rate & rhythm, no murmurs gallops or rubs - normal S1, normal S2 Pulses: 2(+) throughout Abdomen: abdomen soft, non-tender, no abnormal masses and no hepatosplenomegaly Musculoskeletal: no gait disturbance, no joint inflammation, no deforming arthritis Extremities: no edema and no cyanosis Neuro: grossly normal exam Results & Data Vital Signs (Past 12 Hours) Vital Signs Temp Pulse Pulse Resp BP BP Pulse Ox 07/03/19 08:00 36.9 C 90 18 123/71 91 07/03/19 04:39 36.6 C 82 18 125/73 100 Laboratory Results Laboratory Results - last 24 hr 07/02/19 07/02/19 07/03/19 15:55 20:38 05:50 WBC 7.83 RBC 3.52 L Hgb 10.6 L Hct 32.5 L MCV 92.3 MCH 30.1 MCHC 32.6 RDW Std Deviation 50.3 H RDW Coeff of Rolan 15.3 H Plt Count 234 MPV 9.1 Sodium Potassium Chloride Carbon Dioxide Anion Gap BUN Creatinine Est Cr Clr Drug Dosing Est GFR ( Amer) Est GFR (Non-Af Amer) BUN/Creatinine Ratio Glucose POC Glucose 91 90 Calcium 07/03/19 07/03/19 07/03/19 05:50 07:30 11:18 WBC RBC Hgb Hct MCV MCH MCHC RDW Std Deviation RDW Coeff of Rolan Plt Count MPV Sodium 144 Potassium 3.4 L Chloride 105 Carbon Dioxide 32 Anion Gap 7.0 BUN 18 Creatinine 1.11 Est Cr Clr Drug Dosing 44.7 Est GFR ( Amer) 62.1 Est GFR (Non-Af Amer) 53.6 BUN/Creatinine Ratio 16.2 Glucose 124 H POC Glucose 118 H 184 H Calcium 8.4 L Medications Administered Current Inpatient Medications Acetaminophen (Tylenol) 650 mg PO Q4H PRN PRN Reason: Pain or Fever Stop: 07/30/19 21:59 Last Admin: 07/03/19 01:37 Dose: 650 mg Documented by: Al Hydrox/Mg Hydrox/Simethicone (Maalox) 15 ml PO Q4H PRN PRN Reason: Dyspepsia Stop: 07/30/19 21:59 Albuterol (Ventolin 0.083% 2.5mg/3ml) 2.5 mg NEB Q6R PRN PRN Reason: sob/wheezing Stop: 07/30/19 21:59 Aspirin (Ecotrin Ectab) 81 mg PO QAM [facility] Stop: 07/31/19 08:59 Last Admin: 07/03/19 08:51 Dose: 81 mg Documented by: Atorvastatin Calcium (Lipitor) 40 mg PO QAM [facility] Stop: 07/31/19 08:59 Last Admin: 07/03/19 08:52 Dose: 40 mg Documented by: Dextrose (Dextrose 50%) 25 - 50 ml IV UD PRN; Protocol PRN Reason: Hypoglycemia Protocol Stop: 07/30/19 21:59 Dicyclomine HCl (Bentyl) 10 mg PO BID [facility] Stop: 07/30/19 21:59 Last Admin: 07/03/19 08:52 Dose: 10 mg Documented by: Duloxetine HCl (Cymbalta) 30 mg PO DAILY [facility] Stop: 07/31/19 08:59 Last Admin: 07/03/19 08:51 Dose: 30 mg Documented by: Duloxetine HCl (Cymbalta) 60 mg PO DAILY [facility] Stop: 07/31/19 08:59 Last Admin: 07/03/19 08:51 Dose: 60 mg Documented by: Enoxaparin Sodium (Lovenox) 40 mg SQ Q24H [facility] Stop: 07/31/19 08:59 Last Admin: 07/03/19 08:56 Dose: 40 mg Documented by: Escitalopram Oxalate (Lexapro Tab) 5 mg PO DAILY [facility] Stop: 07/31/19 08:59 Last Admin: 07/03/19 08:51 Dose: 5 mg Documented by: Folic Acid (Folvite) 1 mg PO HS [facility] Stop: 07/30/19 21:59 Last Admin: 07/02/19 20:41 Dose: 1 mg Documented by: Furosemide (Lasix) 40 mg PO BID17 [facility] Stop: 07/31/19 16:59 Last Admin: 07/02/19 16:55 Dose: 40 mg Documented by: Gabapentin (Neurontin) 300 mg PO TID [facility] Stop: 07/30/19 21:59 Last Admin: 07/03/19 12:42 Dose: 300 mg Documented by: Glucagon (Glucagen) 1 mg SQ UD PRN; Protocol PRN Reason: Hypoglycemia Protocol Stop: 07/30/19 21:59 Glucose (Glucose 40%) 15 - 30 gm PO UD PRN; Protocol PRN Reason: Hypoglycemia Protocol Stop: 07/30/19 21:59 Glucose (Dex4 Glucose) 4 - 8 tabs PO UD PRN; Protocol PRN Reason: Hypoglycemia Protocol Stop: 07/30/19 21:59 Hydroxyzine HCl (Vistaril) 10 mg PO Q6H PRN PRN Reason: Anxiety Stop: 07/30/19 21:59 Insulin Aspart (Novolog Flexpen) 0 units SC ACHS [facility] Stop: 07/30/19 22:44 Last Admin: 07/03/19 12:39 Dose: 8 units Documented by: Insulin Glargine (Lantus Solostar Pen) 25 units SC [facility]; Protocol Stop: 08/02/19 08:59 Last Admin: 07/03/19 08:56 Dose: 25 units Documented by: Magnesium Hydroxide (Milk Of Magnesia) 30 ml PO Q12H PRN PRN Reason: Constipation Stop: 07/30/19 21:59 Metoprolol Succinate (Toprol Xl) 25 mg PO DAILY [facility] Stop: 07/31/19 08:59 Last Admin: 07/03/19 08:52 Dose: 25 mg Documented by: Mirtazapine (Remeron) 30 mg PO HS [facility] Stop: 07/30/19 21:59 Last Admin: 07/02/19 20:40 Dose: 30 mg Documented by: Miscellaneous (Carbohydrates For Hypoglycemia) 15 - 30 gm PO UD PRN PRN Reason: Hypoglycemia Treatment Stop: 07/30/19 21:59 Miscellaneous Information (Consult Glycemic Management Pharmacy) 1 ea N/A UD PRN; Protocol PRN Reason: Consult Stop: 07/30/19 22:16 Montelukast Sodium (Singulair) 10 mg PO HS [facility] Stop: 07/30/19 21:59 Last Admin: 07/02/19 20:41 Dose: 10 mg Documented by: Nitroglycerin (Nitrostat) 0.4 mg SL UD PRN PRN Reason: Chest Pain Stop: 07/30/19 21:59 Ondansetron HCl (Zofran) 4 mg IV Q6H PRN PRN Reason: Nausea Stop: 07/30/19 21:59 Pantoprazole Sodium (Protonix) 40 mg PO QAM [facility] Stop: 07/31/19 08:59 Last Admin: 07/03/19 08:52 Dose: 40 mg Documented by: Polyethylene Glycol (Miralax Powder Packet) 17 gm PO DAILY PRN PRN Reason: Constipation Stop: 07/30/19 21:59 Ropinirole HCl (Requip) 0.25 mg PO HS [facility] Stop: 07/30/19 21:59 Last Admin: 07/02/19 20:41 Dose: 0.25 mg Documented by: Fluticasone/Salmeterol (Advair Diskus 500/50) 1 puffs INH Q12H [facility] Stop: 07/30/19 21:59 Last Admin: 07/03/19 09:10 Dose: 1 puffs Documented by: Sertraline HCl (Zoloft) 100 mg PO DAILY [facility] Stop: 07/31/19 08:59 Last Admin: 07/03/19 08:52 Dose: 100 mg Documented by: Spironolactone (Aldactone) 12.5 mg PO DAILY [facility] Stop: 07/31/19 08:59 Last Admin: 07/03/19 08:52 Dose: 12.5 mg Documented by: (1) Diabetes mellitus, type 2 Diabetes mellitus snf insulin use: unspecified advertising display rotator insulin use status Diabetes mellitus complication status: with kidney complications Diabetes mellitus complication detail: with chronic kidney disease Chronic kidney disease stage: stage 3 (moderate) Qualified Code(s): E11.22 - Type 2 diabetes mellitus with diabetic chronic kidney disease; N18.3 - Chronic kidney disease, stage 3 (moderate)
--- NOTE | 2019-07-03 14:47 | Hospitalist Progress Note ---
Date of Service July 03, 2019 Assessment & Plan (1) Acute on chronic diastolic CHF (congestive heart failure): Present on admission worsening SOB and weight gained 11lbs ProBNP 7456 CXR showed cardiomegaly with volume overload Lasix IV 40mg given in the ER Last echo 11/2018 hyperdynamic EF 70% with grade 2 diastolic dysfunction Cardiology on board Hold PO lasix this morning Received IV lasix 40mg in the morning Will give an additional lasix 40mg later Continue monitor I/O and fluid restriction Will get 2 step done Monitor BMP (2) Elevated troponin: chronically elevated troponin Likely secondary to demand ischemia given CHF Troponin 0.199-->0.218-->0.195 EKG showed no ischemic changes Denies any chest pain Continue aspirin, statin and metoprolol (3) Dysuria: Complains of dysuria, hematuria (occurred 1 epsiode 2 days ago) Afebrile and WBC wnl today Urinalysis negative Continue monitor (4) Diabetes mellitus, type 2: A1C 16.9 04/2019 --> admitted for [facility] current outpt regimen of metformin, tradjena Humalog mix 75-25 55 Qam 25 Qpm Pharmacy on board for glycemic management Continue monitor BS (5) Hypertension: BP stable Continue monitor (6) HLD (hyperlipidemia): continue statin (7) Depression with anxiety: Continue cymbalta, zoloft, mirtazpine Stable (8) CKD (chronic kidney disease), stage III: Creat 1.1 today (baseline Cr 1.0-1.1) Continue monitor BMP (9) Cardiac defibrillator in place: Secondary o HOCM last interrogated 05/19/19 Stable (10) CADENCE (obstructive sleep apnea): on 2L O2 at HS intolerant to cpap (11) Restless leg syndrome: continue requip Electrolytes imbalance Electrolytes stable Monitor electrolytes (12) DVT prophylaxis: On Lovenox CODE STATUS FULL CODE Disposition Will discharge once medically stable Subjective Pt was seen and examined Sitting in chair with no distress Pt said that his breathing is much better today She would like to go home today She said that last night she walked with her and tolerated well Denies any chest pain, palpitation, dizziness and SOB Physical Exam Physical Exam: General- No acute distress Head- atraumatic Eyes- PERRL, EOMI, ENT- oropharynx clear Neck- supple, no JVD Lungs- clear to auscultation Heart- regular rhythm; no murmur Abdomen- normal bowel sounds, soft, nontender Extremities- no calf tenderness, No edema Neuro- alert, oriented x 3; PERRL, EOMI; no facial palsy; no dysarthria Skin- warm & dry Results & Data Vital Signs (Past 12 Hours) Vital Signs Temp Pulse Pulse Resp BP BP Pulse Ox 07/03/19 12:49 36.6 C 88 18 121/75 91 07/03/19 08:00 36.9 C 90 18 123/71 91 07/03/19 04:39 36.6 C 82 18 125/73 100 (1) Diabetes mellitus, type 2 Chronic kidney disease stage: stage 3 (moderate) Diabetes mellitus complication detail: with chronic kidney disease Diabetes mellitus complication status: with kidney complications Diabetes mellitus manager terminal insulin use: unspecified manager terminal insulin use status Qualified Code(s): E11.22 - Type 2 diabetes mellitus with diabetic chronic kidney disease; N18.3 - Chronic kidney disease, stage 3 (moderate)
--- NOTE | 2019-07-03 15:37 | Pharmacy Report ---
Pharmacy Glycemic Short Note 2 - Date of Service July 03, 2019 - Glycemic Short BSG Results (Last 24 hours): 07/02/19 07/02/19 07/03/19 15:55 20:38 05:50 Glucose 124 H POC Glucose 91 90 07/03/19 07/03/19 07:30 11:18 Glucose POC Glucose 118 H 184 H OUTPATIENT ANTIDIABETIC REGIMEN: * Humalog mix 55 units AM + 25 units PM * Tradjenta 5mg PO daily * Metformin 1,000mg PO BIDM ASSESSMENT: * Pt has been receiving an average of ~ 50 units per day * 25 units of basal insulin * 25 units of prandial/correctional insulin * regimen is evenly distributed between basal:prandial * BSGs are all within goal range with current orders. Will continue with current dosing but change Lantus to once daily dosing * Patient uses ~80 units as an outpatient so inpatient dosing may need to be titrated upwards based on BSG trends. PLAN FOR INPATIENT GLYCEMIC CONTROL: * Hold outpatient oral diabetes medications * Basal insulin * Lantus 25 units SQ daily * Bolus insulin * NovoLog per scale ACHS or Q6hrs while NPO * Goal Range: Low 110 mg/dL - High 140 mg/dL * Correction Factor: 30 mg/dL/unit * Nutritional / Prandial insulin per carb ratio of 1 unit per 9 grams CHO consumed
[2019-07-03] MEDS: MONTELUKAST SODIUM 10 MG TABLET PO SCH (20:56)
[2019-07-03] MEDS: MIRTAZAPINE TAB 15 MG TAB PO SCH (20:56)
[2019-07-03] MEDS: FOLIC ACID 1 MG TAB PO SCH (20:56)
[2019-07-03] MEDS: ROPINIROLE HCL 0.25 MG TABLET PO SCH (20:56)
[2019-07-04] MEDS ORDERED: FUROSEMIDE 60 MG in SYRINGE 0 ML IV ONE (08:00)
[2019-07-04] MEDS: ENOXAPARIN INJ 40 MG/0.4 ML SYR SQ SCH (08:27)
[2019-07-04] MEDS: ATORVASTATIN 40 MG TAB PO SCH (08:28)
[2019-07-04] MEDS: METOPROLOL SUCC 25MG EXT REL TAB PO SCH (08:28)
[2019-07-04] MEDS: ESCITALOPRAM OXALATE 10 MG TAB PO SCH (08:28)
[2019-07-04] MEDS: DULOXETINE HCL 60 MG CAP PO SCH (08:28)
[2019-07-04] MEDS: DULOXETINE HCL 30 MG CAP PO SCH (08:28)
[2019-07-04] MEDS: GABAPENTIN 300 MG CAP PO SCH ×2 (08:28→12:57)
[2019-07-04] MEDS: SERTRALINE HCL 100 MG TABLET PO SCH (08:29)
[2019-07-04] MEDS: SPIRONOLACTONE 25 MG TAB PO SCH (08:29)
[2019-07-04] MEDS: ASPIRIN 81 MG ECTAB PO SCH (08:29)
[2019-07-04] MEDS: PANTOprazole 40 MG TAB PO SCH (08:29)
[2019-07-04] MEDS: DICYCLOMINE HCL 10 MG CAP PO SCH (08:29)
[2019-07-04] MEDS: INSULIN GLARGINE SOLOSTAR 100 UNITS/ML 3 ML PEN SC SCH (08:30)
[2019-07-04] MEDS: INSULIN ASPART 100 UNITS/ML 3 ML PEN SC SCH ×2 (08:30→12:55)
[2019-07-04] MEDS: FLUTICASONE/SALMETEROL (ADVAIR) 500/50 INH 14 PUFF INH SCH (08:42)
[2019-07-04 08:54] LABS: BUN Creatinine Ratio 17.9 (10-20); Creatinine Clr Calc Pharmacy 41.9 ml/min; Est GFR (African American) 57.6; Est GFR (Non-African American) 49.7; Potassium 3.3 mmol/L (3.5-5.1)
[2019-07-04] MEDS ORDERED: POTASSIUM CHLORIDE 20 MEQ TABCR PO ONE (09:00)
--- NOTE | 2019-07-04 10:12 | Pharmacy Report ---
Pharmacy Glycemic Short Note 2 - Date of Service July 04, 2019 - Glycemic Short BSG Results (Last 24 hours): 07/03/19 07/03/19 07/03/19 11:18 16:31 20:04 Glucose POC Glucose 184 H 74 190 H 07/04/19 07/04/19 07:46 07:57 Glucose 104 H POC Glucose 115 H OUTPATIENT ANTIDIABETIC REGIMEN: * Humalog mix 55 units AM + 25 units PM * Tradjenta 5mg PO daily * Metformin 1,000mg PO BIDM ASSESSMENT: 07/04: * Patient received total of 41 units of insulin yesterday, of which 25 were basal insulin. Fasting BSG w/in range at 115 mg/dL - continue with same Lantus dosing this morning * BSGs slightly elevated yesterday at 184-190, patient's BSGs tend to drop from lunch to dinner yesterday 184 to 74 mg/dL therefore will loosen slightly with lunch 07/03: * Pt has been receiving an average of ~ 50 units per day * 25 units of basal insulin * 25 units of prandial/correctional insulin * regimen is evenly distributed between basal:prandial * BSGs are all within goal range with current orders. Will continue with current dosing but change Lantus to once daily dosing * Patient uses ~80 units as an outpatient so inpatient dosing may need to be titrated upwards based on BSG trends. PLAN FOR INPATIENT GLYCEMIC CONTROL: * Hold outpatient oral diabetes medications * Basal insulin - no change * Lantus 25 units SQ daily * Bolus insulin - loosen slightly * NovoLog per scale ACHS or Q6hrs while NPO * Goal Range: Low 110 mg/dL - High 140 mg/dL * Correction Factor: 30 mg/dL/unit * Nutritional / Prandial insulin per carb ratio of 1 unit per 10 grams CHO consumed
--- NOTE | 2019-07-04 11:18 | Cardiology Progress Note ---
Date of Service July 04, 2019 Assessment & Plan (1) Hypertrophic cardiomyopathy: (2) CHF (congestive heart failure): (3) Cardiac defibrillator in place: (4) Elevated troponin: (5) Diabetes mellitus, type 2: The patient I believe is ready for discharge. I would recommend that she go h ome on an increased dose of her loop diuretic. She should return home on Lasix 40 mg twice daily. I will arrange follow-up with our clinic. Subjective No complaints today. She is feeling well enough to return home. Review of Systems Review of Systems: All systems reviewed & are unremarkable except as noted in HPI & below Nothing additional. Physical Exam Physical Exam: General: no acute distress and stated age Head: normocephalic, no masses, lesions, tenderness or abnormalities Eyes: conjunctiva are pink and non-injected, sclera clear Neck: supple, no adenopathy, no bruits, normal jugular venous pulse, no hepatojugular reflux Chest: normal shape and normal respiratory effort Lungs: clear to auscultation and percussion Cardiac Exam: - regular rate & rhythm, no murmurs gallops or rubs - normal S1, normal S2 Pulses: 2(+) throughout Abdomen: abdomen soft, non-tender, no abnormal masses and no hepatosplenomegaly Musculoskeletal: no gait disturbance, no joint inflammation, no deforming arthritis Extremities: no edema and no cyanosis Neuro: grossly normal exam Results & Data Vital Signs (Past 12 Hours) Vital Signs Temp Pulse Pulse Pulse Resp BP Pulse Ox 07/04/19 07:38 37.0 C 88 17 133/85 91 07/04/19 03:12 36.5 C 96 H 18 150/80 H 93 07/04/19 00:07 36.9 C 94 H 18 131/79 92 Laboratory Results Laboratory Results - last 24 hr 07/03/19 07/03/19 07/03/19 11:18 16:31 20:04 Sodium Potassium Chloride Carbon Dioxide Anion Gap BUN Creatinine Est Cr Clr Drug Dosing Est GFR ( Amer) Est GFR (Non-Af Amer) BUN/Creatinine Ratio Glucose POC Glucose 184 H 74 190 H Calcium 07/04/19 07/04/19 07:46 07:57 Sodium 142 Potassium 3.3 L Chloride 105 Carbon Dioxide 29 Anion Gap 8.0 BUN 21 H Creatinine 1.18 Est Cr Clr Drug Dosing 41.9 Est GFR ( Amer) 57.6 Est GFR (Non-Af Amer) 49.7 BUN/Creatinine Ratio 17.9 Glucose 104 H POC Glucose 115 H Calcium 9.0 Medications Administered Current Inpatient Medications Acetaminophen (Tylenol) 650 mg PO Q4H PRN PRN Reason: Pain or Fever Stop: 07/30/19 21:59 Last Admin: 07/03/19 01:37 Dose: 650 mg Documented by: Al Hydrox/Mg Hydrox/Simethicone (Maalox) 15 ml PO Q4H PRN PRN Reason: Dyspepsia Stop: 07/30/19 21:59 Albuterol (Ventolin 0.083% 2.5mg/3ml) 2.5 mg NEB Q6R PRN PRN Reason: sob/wheezing Stop: 07/30/19 21:59 Aspirin (Ecotrin Ectab) 81 mg PO QAM [facility] Stop: 07/31/19 08:59 Last Admin: 07/04/19 08:29 Dose: 81 mg Documented by: Atorvastatin Calcium (Lipitor) 40 mg PO QAM [facility] Stop: 07/31/19 08:59 Last Admin: 07/04/19 08:28 Dose: 40 mg Documented by: Dextrose (Dextrose 50%) 25 - 50 ml IV UD PRN; Protocol PRN Reason: Hypoglycemia Protocol Stop: 07/30/19 21:59 Dicyclomine HCl (Bentyl) 10 mg PO BID [facility] Stop: 07/30/19 21:59 Last Admin: 07/04/19 08:29 Dose: 10 mg Documented by: Duloxetine HCl (Cymbalta) 30 mg PO DAILY [facility] Stop: 07/31/19 08:59 Last Admin: 07/04/19 08:28 Dose: 30 mg Documented by: Duloxetine HCl (Cymbalta) 60 mg PO DAILY [facility] Stop: 07/31/19 08:59 Last Admin: 07/04/19 08:28 Dose: 60 mg Documented by: Enoxaparin Sodium (Lovenox) 40 mg SQ Q24H [facility] Stop: 07/31/19 08:59 Last Admin: 07/04/19 08:27 Dose: 40 mg Documented by: Escitalopram Oxalate (Lexapro Tab) 5 mg PO DAILY [facility] Stop: 07/31/19 08:59 Last Admin: 07/04/19 08:28 Dose: 5 mg Documented by: Folic Acid (Folvite) 1 mg PO HS [facility] Stop: 07/30/19 21:59 Last Admin: 07/03/19 20:56 Dose: 1 mg Documented by: Furosemide (Lasix) 40 mg PO BID17 [facility] Stop: 07/31/19 16:59 Last Admin: 07/02/19 16:55 Dose: 40 mg Documented by: Gabapentin (Neurontin) 300 mg PO TID [facility] Stop: 07/30/19 21:59 Last Admin: 07/04/19 08:28 Dose: 300 mg Documented by: Glucagon (Glucagen) 1 mg SQ UD PRN; Protocol PRN Reason: Hypoglycemia Protocol Stop: 07/30/19 21:59 Glucose (Glucose 40%) 15 - 30 gm PO UD PRN; Protocol PRN Reason: Hypoglycemia Protocol Stop: 07/30/19 21:59 Glucose (Dex4 Glucose) 4 - 8 tabs PO UD PRN; Protocol PRN Reason: Hypoglycemia Protocol Stop: 07/30/19 21:59 Hydroxyzine HCl (Vistaril) 10 mg PO Q6H PRN PRN Reason: Anxiety Stop: 07/30/19 21:59 Insulin Aspart (Novolog Flexpen) 0 units SC ACHS [facility] Stop: 07/30/19 22:44 Last Admin: 07/04/19 08:30 Dose: 7 units Documented by: Insulin Glargine (Lantus Solostar Pen) [facility]; Protocol Stop: 08/02/19 08:59 Last Admin: 07/04/19 08:30 Dose: 25 units Documented by: Magnesium Hydroxide (Milk Of Magnesia) 30 ml PO Q12H PRN PRN Reason: Constipation Stop: 07/30/19 21:59 Metoprolol Succinate (Toprol Xl) 25 mg PO DAILY [facility] Stop: 07/31/19 08:59 Last Admin: 07/04/19 08:28 Dose: 25 mg Documented by: Mirtazapine (Remeron) 30 mg PO HS [facility] Stop: 07/30/19 21:59 Last Admin: 07/03/19 20:56 Dose: 30 mg Documented by: Miscellaneous (Carbohydrates For Hypoglycemia) 15 - 30 gm PO UD PRN PRN Reason: Hypoglycemia Treatment Stop: 07/30/19 21:59 Miscellaneous Information (Consult Glycemic Management Pharmacy) 1 ea N/A UD PRN; Protocol PRN Reason: Consult Stop: 07/30/19 22:16 Montelukast Sodium (Singulair) 10 mg PO HS [facility] Stop: 07/30/19 21:59 Last Admin: 07/03/19 20:56 Dose: 10 mg Documented by: Nitroglycerin (Nitrostat) 0.4 mg SL UD PRN PRN Reason: Chest Pain Stop: 07/30/19 21:59 Ondansetron HCl (Zofran) 4 mg IV Q6H PRN PRN Reason: Nausea Stop: 07/30/19 21:59 Pantoprazole Sodium (Protonix) 40 mg PO QAM [facility] Stop: 07/31/19 08:59 Last Admin: 07/04/19 08:29 Dose: 40 mg Documented by: Polyethylene Glycol (Miralax Powder Packet) 17 gm PO DAILY PRN PRN Reason: Constipation Stop: 07/30/19 21:59 Ropinirole HCl (Requip) 0.25 mg PO [facility] Stop: 07/30/19 21:59 Last Admin: 07/03/19 20:56 Dose: 0.25 mg Documented by: Fluticasone/Salmeterol (Advair Diskus 500/50) 1 puffs INH Q12H [facility] Stop: 07/30/19 21:59 Last Admin: 07/04/19 08:42 Dose: 1 puffs Documented by: Sertraline HCl (Zoloft) 100 mg PO DAILY [facility] Stop: 07/31/19 08:59 Last Admin: 07/04/19 08:29 Dose: 100 mg Documented by: Spironolactone (Aldactone) 12.5 mg PO DAILY [facility] Stop: 07/31/19 08:59 Last Admin: 07/04/19 08:29 Dose: 12.5 mg Documented by: (1) Diabetes mellitus, type 2 Diabetes mellitus assisted insulin use: unspecified assisted insulin use status Diabetes mellitus complication status: with kidney complications Diabetes mellitus complication detail: with chronic kidney disease Chronic kidney disease stage: stage 3 (moderate) Qualified Code(s): E11.22 - Type 2 diabetes mellitus with diabetic chronic kidney disease; N18.3 - Chronic kidney disease, stage 3 (moderate)
--- NOTE | 2019-07-04 13:50 | Hospitalist Progress Note ---
Date of Service July 04, 2019 Assessment & Plan (1) Acute on chronic diastolic CHF (congestive heart failure): Present on admission worsening SOB and weight gained 11lbs ProBNP 7456 CXR showed cardiomegaly with volume overload Lasix IV 40mg given in the ER Last echo 11/2018 hyperdynamic EF 70% with grade 2 diastolic dysfunction Cardiology on board Hold PO lasix this morning Received IV lasix 60 mg this morning Will give an additional lasix 40mg later Continue monitor I/O and fluid restriction 2 step done today and pt will need oxygen with ambulation Case discussed with cardiology and stable to discharge home on Lasix 40mg BID (2) Elevated troponin: chronically elevated troponin Likely secondary to demand ischemia given CHF Troponin 0.199-->0.218-->0.195 EKG showed no ischemic changes Denies any chest pain Continue aspirin, statin and metoprolol (3) Dysuria: Complains of dysuria, hematuria (occurred 1 epsiode 2 days ago) Afebrile and WBC wnl today Urinalysis negative Continue monitor (4) Diabetes mellitus, type 2: A1C 16.9 04/2019 --> admitted for [facility] current outpt regimen of metformin, tradjena Humalog mix 75-25 55 Qam 25 Qpm Pharmacy on board for glycemic management Continue monitor BS (5) Hypertension: BP stable Continue monitor (6) HLD (hyperlipidemia): continue statin (7) Depression with anxiety: Continue cymbalta, zoloft, mirtazpine Stable (8) CKD (chronic kidney disease), stage III: Creat 1.1 today (baseline Cr 1.0-1.1) Continue monitor BMP (9) Cardiac defibrillator in place: Secondary o HOCM last interrogated 05/19/19 Stable (10) CADENCE (obstructive sleep apnea): on 2L O2 at HS intolerant to cpap (11) Restless leg syndrome: continue requip Electrolytes imbalance Electrolytes stable Monitor electrolytes (12) DVT prophylaxis: On Lovenox CODE STATUS FULL CODE Disposition Will discharge home today Subjective Pt was seen and examined Lying in bed with no distress Pt said that she feels much better today She is very anxious to discharge today Denies any chest pain palpitation, dizziness and SOB Physical Exam Physical Exam: General- No acute distress Head- atraumatic Eyes- PERRL, EOMI, ENT- oropharynx clear Neck- supple, no JVD Lungs- clear to auscultation Heart- regular rhythm; no murmur Abdomen- normal bowel sounds, soft, nontender Extremities- no calf tenderness, No edema Neuro- alert, oriented x 3; PERRL, EOMI; no facial palsy; no dysarthria Skin- warm & dry Results & Data Vital Signs (Past 12 Hours) Vital Signs Temp Pulse Pulse Resp BP Pulse Ox 07/04/19 11:23 36.7 C 84 20 142/64 H 96 07/04/19 07:38 37.0 C 88 17 133/85 91 07/04/19 03:12 36.5 C 96 H 18 150/80 H 93 (1) Diabetes mellitus, type 2 Chronic kidney disease stage: stage 3 (moderate) Diabetes mellitus complication detail: with chronic kidney disease Diabetes mellitus complication status: with kidney complications Diabetes mellitus continuous churn buttermaker insulin use: un specified continuous churn buttermaker insulin use status Qualified Code(s): E11.22 - Type 2 diabetes mellitus with diabetic chronic kidney disease; N18.3 - Chronic kidney disease, stage 3 (moderate)
[2019-07-04] MEDS ORDERED: POTASSIUM CHLORIDE 20 MEQ TABCR PO STA (14:10)
--- NOTE | 2019-07-07 11:49 | Discharge Summary ---
Date of Service July 04, 2019 Admission HPI Per Admitting Provider Mrs. Velasquez is a pleasant 59 yr old female who has a significant past medical history of chronic diastolic CHF, hypertrophic cardiomyopathy status post AICD, T2DM, HTN, HLD, CADENCE on nocturnal oxygen, CKD stage III depression with anxiety, mood disorder, history of migraine who presents to [facility] ED secondary to shortness of breath, increased weight gain and edema x2 days. Over the past 2 to 3 days patient is noticed increased shortness breath at rest and with exertion, 11 pound weight gain, abdominal bloating, lower extremity edema, orthopnea. Her baseline weight is approximately 152-153lb and this morning she was 163lb. She also elicits to being off balance, mild dry cough, dysuria, episode of hematuria x1 2 days ago. She denies any fever, chills, sweats, lightheadedness, dizziness, syncope, chest pain, palpitations, nausea, vomiting. She does have chronic diarrhea noting she has had it for many years. She takes Lomotil for this. Admits to being compliant with medication. Denies any significant change in diet or trigger. Of significance patient recently confined to [facility] from 05/15 to 05/18 secondary to HHS with blood sugar greater than 800 on admission. Her A1c was 16.5 on 05/15/2019. Her insulin regimen has been adjusted and blood sugars have been maintaining between 120 and 140. Admission Exam Per Admitting Provider Gen: WD/WN, F, NAD, sitting up in bed, pleasant, conversing easily Head: Normocephalic, Atraumatic Eyes: Sclera normal, no conjunctival injection, PERRLA, EOMI ENT: Gross hearing intact, normal pharynx, mucous membranes moist Neck: supple, no adenopathy, No JVD, no bruit, Resp: Clear to auscultation b/l, no wheeze, rales, rhonchi. 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 Extremities: trace ankle and pretibial edema bilaterally Skin: warm, moist, no rash, negative turgor, cap refill < 2sec Neuro: Alert and oriented x 3, speech normal, good mood/affect, cran nerve 2-12 intact grossly : deferred Principal Diagnosis Acute on chronic diastolic CHF (congestive heart failure) Elevated troponin Diabetes mellitus, type 2 CKD (chronic kidney disease), stage III Dyslipidemia Hypertension Cardiac defibrillator in place Restless Leg Syndrome CADENCE Discharge Exam General- No acute distress Head- atraumatic Eyes- PERRL, EOMI, ENT- oropharynx clear Neck- supple, no JVD Lungs- clear to auscultation Heart- regular rhythm; no murmur Abdomen- normal bowel sounds, soft, nontender Extremities- no calf tenderness, No edema Neuro- alert, oriented x 3; PERRL, EOMI; no facial palsy; no dysarthria Skin- warm & dry Discharge Data Allergies Allergy/AdvReac Type Severity Reaction Status Date / Time Penicillins Allergy Intermediate Flushing, Verified 06/30/19 17:09 Itchiness Sulfa (Sulfonamide Allergy Intermediate Swelling Verified 06/30/19 17:09 Antibiotics) doxycycline Allergy Unknown Unknown Verified 06/30/19 17:09 adhesive AdvReac Intermediate Blistering Verified 06/30/19 17:09 ibuprofen AdvReac Unknown Unknown Verified 06/30/19 17:09 Consultations 06/30/19 19:48 ED Decision to Admit Stat 06/30/19 22:00 Consult Cardiology Routine Ordered Studies XR chest 1V portable CLINICAL HISTORY: 59 years-old Female presenting with Chest Pain. TECHNIQUE: Portable upright AP view of the chest was obtained. COMPARISON: 06/01/2019. FINDINGS: Right subclavian implanted cardiac defibrillator with leads in right atrium and right ventricular apex. Atherosclerosis of the aortic arch. Cardiac silhouette moderately enlarged. Pulmonary vascular prominence increased from prior. No focal opacity. No large effusion or pneumothorax. Osseous structures normal. Upper abdomen normal. IMPRESSION: 1. Cardiomegaly with volume overload. No junior pulmonary edema. Electronically signed by: Hilton Salazar M.D. 06/30/2019 4:38 PM Dictated: 06/30/19 1637 Transcribed: 06/30/19 1637 Hospital Course (1) Acute on chronic diastolic CHF (congestive heart failure): Present on admission worsening SOB and weight gained 11lbs ProBNP 7456 CXR showed cardiomegaly with volume overload Lasix IV 40mg given in the ER Last echo 11/2018 hyperdynamic EF 70% with grade 2 diastolic dysfunction Cardiology on board Hold PO lasix this morning Received IV lasix 60 mg this morning Will give an additional lasix 40mg later Continue monitor I/O and fluid restriction 2 step done today and pt will need oxygen with ambulation Case discussed with cardiology and stable to discharge home on Lasix 40mg BID (2) Elevated troponin: chronically elevated troponin Likely secondary to demand ischemia given CHF Troponin 0.199-->0.218-->0.195 EKG showed no ischemic changes Denies any chest pain Continue aspirin, statin and metoprolol (3) Dysuria: Complains of dysuria, hematuria (occurred 1 epsiode 2 days ago) Afebrile and WBC wnl today Urinalysis negative Continue monitor (4) Diabetes mellitus, type 2: A1C 16.9 04/2019 --> admitted for [facility] current outpt regimen of metformin, tradjena Humalog mix 75-25 55 Qam 25 Qpm Pharmacy on board for glycemic management Continue monitor BS (5) Hypertension: BP stable Continue monitor (6) HLD (hyperlipidemia): continue statin (7) Depression with anxiety: Continue cymbalta, zoloft, mirtazpine Stable (8) CKD (chronic kidney disease), stage III: Creat 1.1 today (baseline Cr 1.0-1.1) Continue monitor BMP (9) Cardiac defibrillator in place: Secondary o HOCM last interrogated 05/19/19 Stable (10) CADENCE (obstructive sleep apnea): on 2L O2 at HS intolerant to cpap (11) Restless leg syndrome: continue requip Electrolytes imbalance Electrolytes stable Monitor electrolytes (12) DVT prophylaxis: On Lovenox CODE STATUS FULL CODE Disposition Will discharge home today Total Time Total Time Spent Total Time Spent (In Minutes): 35 minutes Total Time Includes: Examination of the Patient, Discharge Planning, Medication Reconciliation, Communication With Other Providers and Other Discharge Plan Discharge Items Patient Disposition: Home - Self-Care Reason For Visit: DIASTOLIC CHF EXAC Discharge Diagnosis: Acute on chronic diastolic CHF (congestive heart failure) Elevated troponin Diabetes mellitus, type 2 CKD (chronic kidney disease), stage III Discharge Goals: Decrease discomfort, Improve disease control, Improve function and Increase independence Activity: Resume your previous activity Activity Comment: as tolerated Non-emergency contact: Primary Care Provider and Crew Car Driver Call non-emergency contact if: you have any medication questions Follow-up/Referrals: Suad De León, [Primary Care Provider] - Diet: Heart Healthy Add Provider Instructions: Follow up with your primary care provider Dr. De León on 07/08 @ 1:15 PM Follow up with cardiology (cardiology office will call you for the appointment) Continue using oxygen 2 LNC at night and with ambulation Fall precaution Follow a low salt diet and limited fluid intake Check BMP in 1 week to monitor electrolytes Monitor your blood sugar and follow a low card diet and limited concentrated sugar intake CHF Discharge Instructions Call your Primary Care doctor if any of the following symptoms or problems start or get worse: Shortness of breath or difficulty breathing Wake up at night short of breath Chest pain Cough Swelling of your hands, feet, or legs More fatigued or tired with your normal activity Palpitations - sudden fast heart beats WEIGHT Weigh yourself every morning after using the bathroom. Use the same scale. Wear the same amount of clothing. Write your weight down on a chart. Call your Primary Care doctor if you gain more than 2-3 pounds in 1-2 days. MEDICATIONS Use this discharge instruction sheet for medication instructions. Take your medications at the time your doctor ordered. Do not skip a dose of your medicines. If you miss a dose of medicine, take it as soon as possible, but DO NOT DOUBLE A DOSE. Read your medicine information when you get home. Know all of the side effects of your medicine. If in doubt, ask your pharmacist Call your Primary Care doctor's office if you have any side effects. Be sure all of your doctors know what medicine and herbs you take (including cold, flu, and herbal medicine). Take the following with you to your follow-up doctor appointments: Weight Chart Medication List List of questions Do not drink excessive alcohol, beer or wine. Prescriptions: Continued duloxetine 60 mg Capsule,Delayed Release(Dr/Ec) 60 mg PO DAILY RF: 0 mirtazapine 30 mg Tablet 30 mg PO HS RF: 0 omeprazole 40 mg Capsule,Delayed Release(Dr/Ec) 40 mg PO QAM RF: 0 folic acid 1 mg Tablet 1 mg PO HS RF: 0 sumatriptan succinate 25 mg Tablet 50 mg PO DIRECTED PRN (Reason: Migraine Headache) RF: 0 metformin 500 mg Tablet 1,000 mg PO BIDM RF: 0 atorvastatin 40 mg Tablet 40 mg PO QAM Qty: 30 RF: 0 sertraline 100 mg tablet 100 mg PO DAILY RF: 0 gabapentin 300 mg capsule 300 mg PO TID RF: 0 metoprolol succinate 25 mg tablet extended release 24 hr 25 mg PO DAILY RF: 0 albuterol sulfate [Ventolin HFA] 90 mcg/actuation Hfa Aerosol Inhaler 2 puff INHALATION Q4H PRN (Reason: Wheezing) RF: 0 ondansetron 4 mg tablet,disintegrating 4 mg PO Q8H PRN (Reason: Nausea) RF: 0 dicyclomine 10 mg capsule 10 mg PO BID RF: 0 Humalog Mix 75-25 KwikPen 100 unit/mL (75-25) insulin pen 55 unit subcut QAM RF: 0 Humalog Mix 75-25 KwikPen 100 unit/mL (75-25) insulin pen 25 unit subcut QPM RF: 0 escitalopram oxalate 5 mg tablet 5 mg PO DAILY RF: 0 duloxetine 30 mg capsule,delayed release(DR/EC) 30 mg PO DAILY RF: 0 Tradjenta 5 mg Tablet 5 mg PO DAILY RF: 0 ropinirole 0.25 mg tablet 0.25 mg PO HS RF: 0 hydroxyzine HCl 10 mg tablet 10 mg PO Q6H PRN (Reason: Anxiety) RF: 0 nitroglycerin [Nitrostat] 0.4 mg tablet, sublingual 0.4 mg sublingual DIRECTED PRN (Reason: Chest Pain) RF: 0 fluticasone propion-salmeterol [Advair Diskus] 500-50 mcg/dose Blister With Device 1 inh INHALATION Q12H RF: 0 spironolactone [Aldactone] 25 mg Tablet 12.5 mg PO DAILY RF: 0 albuterol sulfate 2.5 mg /3 mL (0.083 %) solution for nebulization 3 ml Inhalation Q4H PRN (Reason: Wheezing) RF: 0 diphenoxylate-atropine [Lomotil] 2.5-0.025 mg Tablet 1 tab PO QID PRN (Reason: Diarrhea) RF: 0 aspirin [Ecotrin Low Strength] 81 mg tablet,delayed release (DR/EC) 81 mg PO QAM RF: 0 montelukast 10 mg tablet 10 mg PO HS RF: 0 Discontinued furosemide [Lasix] 40 mg Tablet 40 mg PO 5XWK RF: 0 furosemide 40 mg Tablet 80 mg PO 2XWK RF: 0 Stand-Alone Forms: [facility] Discharge Orders: Discharge Order (Routine); Ordered 07/04/19 Ordered By: Winnie Ramirez Admission Data Admit Date/Time: 06/30/19 20:52 Attending Provider: Winnie Ramirez Admit Provider: Winnie Ramirez Primary Care Provider: Suad De León Other Providers: Brennan Grant Service: Telemetry Other Interventions: Discharge Summary Assessment (RN) Last Done: 07/04/19 14:11 DC Date/Time DO NOT enter until pt leaves facility: 07/04/19 14:45
== END 2019-07-04 14:45 | disposition home or self-care (01) | DRG 291 ==
LOC: ED 16:10 → 2S 20:52 → SUATTDRO 20:52 → 2S 21:30
DX: Z79.4 Long term (current) use of insulin; Z79.899 Other long term (current) drug therapy; Z79.82 Long term (current) use of aspirin; N18.3 Chronic kidney disease, stage 3 (moderate); Z99.81 Dependence on supplemental oxygen; R30.0 Dysuria; I50.33 Acute on chronic diastolic (congestive) heart failure; Z95.810 Presence of automatic (implantable) cardiac defibrillator; I24.8 Other forms of acute ischemic heart disease; E11.22 Type 2 diabetes mellitus with diabetic chronic kidney disease; F41.8 Other specified anxiety disorders; J44.9 Chronic obstructive pulmonary disease, unspecified; I13.0 Hypertensive heart and chronic kidney disease with heart failure and stage 1 through stage 4 chronic kidney disease, or unspecified chronic kidney disease; G47.33 Obstructive sleep apnea (adult) (pediatric)

== ENCOUNTER 2019-09-25 12:43 | Inpatient (IN) ==
--- NOTE | 2019-09-25 13:33 | XRay Report ---
XR chest 1V portable HISTORY: 59 years-old Female Chest Pain acute atypical chest pain COMPARISON: Chest radiograph 06/30/2019 TECHNIQUE: Portable AP view of the chest FINDINGS: Cardiac silhouette is enlarged. Pulmonary vascular congestion. There is mild interstitial coarsening without pneumothorax. Probable trace pleural effusions with minimal bibasilar opacities. Unchanged ri ght pectoral pacer/ICD. Degenerative changes of the shoulders and spine. IMPRESSION: 1. Cardiomegaly with pulmonary edema. 2. Trace pleural effusions with bibasilar opacities suggestive of atelectasis. The above report was generated using voice recognition software. It may contain grammatical, syntax o r spelling errors. Electronically signed by: Vidal Jay M.D. 09/25/2019 1:32 PM
[2019-09-25 13:36] LABS: Basophils # (auto) 0.02 K/uL (0-0.2); Basophils % (auto) 0.2 %; Eosinophils % (auto) 0.9 %; Hematocrit (blood only) 35.2 % (37-47); Hemoglobin 11.4 g/dL (12.0-16.0); Immature Granulocytes # (auto) 0.03 K/uL (0.00-0.02); Immature Granulocytes % (auto) 0.3 %; Lymphocytes # (auto) 1.11 K/uL (1.2-3.4); Lymphocytes % (auto) 10.4 %; Mean Corpuscular Hemoglobin 30.2 pg (25-34); Mean Corpuscular Hgb Conc 32.4 g/dL (32-36); Mean Corpuscular Volume 93.1 fL (80-100); Mean Platelet Volume 9.2 fL (7.4-10.4); Monocytes % (auto) 3.8 %; Neutrophils % (auto) 84.4 %; Platelet Count 244 K/uL (130-400); RDW Coefficient of Variation 16.1 % (11.5-14.5); RDW Standard Deviation 53.5 fL (36.4-46.3); Red Blood Count 3.78 M/uL (4.2-5.4); White Blood Count 10.66 K/uL (4.8-10.8)
[2019-09-25 13:45] LABS: Base Excess VBG 2.5 mEq/L; HCO3 VBG 29 mmol/L; PCO2 VBG 49 mmHg (38-50); PO2 VBG 30 mmHg; pH VBG 7.38 (7.36-7.41)
[2019-09-25 13:55] LABS: Albumin Level 3.6 gm/dl (3.4-5.0); BUN Creatinine Ratio 13.7 (10-20); Calcium 8.9 mg/dl (8.5-10.1); Creatinine Clr Calc Pharmacy 43.2 ml/min; Est GFR (African American) 54.8; Est GFR (Non-African American) 47.3; Magnesium 1.7 mg/dl (1.8-2.4); Potassium 3.6 mmol/L (3.5-5.1)
[2019-09-25 14:02] LABS: Albumin Globulin Ratio 0.9 (0.9-2); Globulin 4.2 gm/dl (2.5-4.0); Phosphorus 2.8 mg/dl (2.5-4.9); Total Protein 7.8 gm/dl (6.4-8.2); Troponin I 0.195 ng/ml (0-0.045)
[2019-09-25 14:04] LABS: Oxygen Saturation VBG < 60.0 %
[2019-09-25] MEDS ORDERED: MAGNESIUM SULFATE / D5W 1 GM/100 ML BAG IV ONE (14:11)
[2019-09-25] MEDS ORDERED: FUROSEMIDE 40 MG/4 ML VIAL IV STA (14:11)
[2019-09-25 16:09] LABS: Influenza A virus by PCR Neg for Influ A (Neg); Influenza B virus by PCR Neg for Influ B (Neg)
--- NOTE | 2019-09-25 16:39 | Emergency Department Note ---
Entered by Abdifatah Hoyt acting as a scribe for History of Present Illness General Chief complaint: Shortness of Breath/Dyspnea Time Seen by Provider: 09/25/19 12:53 Source: patient History of Present Illness Provider complaint: Shortness of breath Onset (ago): hour(s) (Today) Location: chest Severity: similar to prior episodes Pain Consistency: + constant Maximum Pain Intensity: 0 Quality: + other (99F) Associated symptoms: + cough and + fever/chills; no nausea/vomiting The patient is a 59 year old female who presents to the Emergency Room with complaints of constant shortness of breath that has been an ongoing issue but became acutely worse this morning. The patient has a history of CHF, COPD and asthma for which she is always on supplemental oxygen. The patient states that she has noticed a recent weight gain as well which she did tell Dr. Bruno about but she is unsure if any medication changes were made. The patient also endorses a productive cough with yellow/green mucous. Additionally she has been running intermittent low temperature fevers that stay around 99F. The patient adds that she has some diarrhea, but this is normal for her. She denies any nausea or vomiting. Home Medications Home Medications Medication Instructions Recorded Confirmed Type duloxetine 60 mg PO QAM 08/09/18 09/25/19 History folic acid 1 mg PO HS 08/09/18 09/25/19 History omeprazole 40 mg PO QAM 08/09/18 09/25/19 History sumatriptan succinate 50 mg PO DIRECTED PRN 08/09/18 09/25/19 History metformin 1,000 mg PO BIDM 08/12/18 09/25/19 History albuterol sulfate 3 ml INHALATION Q4H PRN 09/09/18 09/25/19 History diphenoxylate-atropine [Lomotil] 1 tab PO QID PRN 12/19/18 09/25/19 History atorvastatin 40 mg PO QAM #30 tab 02/19/19 09/25/19 Rx aspirin [Ecotrin Low Strength] 81 mg PO QAM 04/12/19 09/25/19 History montelukast 10 mg PO HS 04/12/19 09/25/19 History Humalog Mix 75-25 KwikPen 25 unit SUBCUT QDD 06/30/19 09/25/19 History Humalog Mix 75-25 KwikPen 55 unit SUBCUT QAM 06/30/19 09/25/19 History Tradjenta 5 mg PO QAM 06/30/19 09/25/19 History albuterol sulfate [Ventolin HFA] 2 puff INHALATION Q4H PRN 06/30/19 09/25/19 History dicyclomine 10 mg PO BID 06/30/19 09/25/19 History duloxetine 30 mg PO QAM 06/30/19 09/25/19 History escitalopram oxalate 5 mg PO QAM 06/30/19 09/25/19 History fluticasone propion-salmeterol 1 inh INHALATION Q12H 06/30/19 09/25/19 History [Advair Diskus] gabapentin 300 mg PO TID 06/30/19 09/25/19 History hydroxyzine HCl 10 mg PO Q6H PRN 06/30/19 09/25/19 History nitroglycerin [Nitrostat] 0.4 mg SUBLINGUAL DIRECTED PRN 06/30/19 09/25/19 History ondansetron 4 mg PO Q8H PRN 06/30/19 09/25/19 History sertraline 100 mg PO QAM 06/30/19 09/25/19 History spironolactone [Aldactone] 25 mg PO QAM 06/30/19 09/25/19 History furosemide 40 mg PO DAILY 09/25/19 09/25/19 History furosemide [Lasix] 80 mg PO TUTH 09/25/19 09/25/19 History metoprolol succinate 100 mg PO BID 09/25/19 09/25/19 History mirtazapine 45 mg PO HS 09/25/19 09/25/19 History ropinirole 0.5 mg PO HS 09/25/19 09/25/19 History verapamil 40 mg PO DAILY 09/25/19 09/25/19 History Allergies Allergy/AdvReac Type Severity Reaction Status Date / Time Penicillins Allergy Intermediate Flushing, Verified 06/30/19 17:09 Itchiness Sulfa (Sulfonamide Allergy Intermediate Swelling Verified 06/30/19 17:09 Antibiotics) doxycycline Allergy Unknown Unknown Verified 06/30/19 17:09 adhesive AdvReac Intermediate Blistering Verified 06/30/19 17:09 ibuprofen AdvReac Unknown Unknown Verified 06/30/19 17:09 Past Med/Surg History Medical History Depression with anxiety (Chronic) Elevated troponin (Chronic) CKD (chronic kidney disease), stage III (Chronic) GERD (gastroesophageal reflux disease) (Chronic) HLD (hyperlipidemia) (Chronic) Hypertension (Chronic) Anxiety (Chronic) Cardiac defibrillator in place (Chronic) 2014 CADENCE (obstructive sleep apnea) (Chronic) on nocturnal O2 2L Hypertrophic cardiomyopathy (Chronic) CHF (congestive heart failure) Asthma (Chronic) COPD (chronic obstructive pulmonary disease) (Chronic) Fatty (change of) liver, not elsewhere classified (Chronic) Arthritis (Chronic) Diabetes mellitus, type 2 (Chronic) Pancreatic cyst (Chronic) Depression (Chronic) Hydronephrosis of right kidney (Chronic) Elevated troponin (Chronic) Restless leg syndrome (Chronic) Surgical History History of appendectomy (Resolved) 1970s H/O section (Resolved) 1979 & 1982 History of colostomy reversal (Resolved) bowel perf 2013 with colostomy reversed in 2014 H/O hernia repair (Resolved) 2016 Status post partial resection of colon (Chronic) "diverticulitis 11/05/14" Status post internal cardiac defibrillator procedure (Chronic) "2014" Family History Other Hypertrophic cardiomyopathy Stomach cancer Thyroid disorder Social History Preferred Language: Lithuanian Communication Ability: Effective Jeeper Operator Required: No Beliefs That Will Affect Care: None marital status: Current Living Situation: Spouse 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 and A total of 10 systems reviewed and were otherwise negative Physical Exam Vital Signs Vital Signs - 24 hr 09/25/19 13:03 Temperature 36.7 C Temperature Source Oral Sepsis Recent Fever Within 48 Hours No Sepsis Action Taken by Nursing No Action Required Pulse Rate 82 Pulse Rhythm Regular Pulse Strength Normal Respiratory Rate 26 H Respiratory Depth Normal Blood Pressure 173/74 H Blood Pressure Mean 107 Blood Pressure Position Sitting Pulse Oximetry 97 Oxygen Delivery Method Nasal Cannula Oxygen Flow Rate 4 GENERAL: Awake, alert, chronically ill-appearing, in no distress HENT: Normocephalic, atraumatic. Oropharynx unremarkable. EYES: Normal conjunctiva. Sclera non-icteric. NECK: Supple. No nuchal rigidity. FROM. No JVD. RESPIRATORY: Diminished breath sounds at the bases. CARDIAC: Regular rate, normal rhythm. Extremities warm and well perfused. Pulses equal. ABDOMEN: Soft, non-distended. No tenderness to palpation. No rebound or guarding. No masses. RECTAL: Deferred. MUSCULOSKELETAL: Chest examination reveals no tenderness. The back is symmetrical on inspection without obvious abnormality. There is no CVA tenderness to palpation. No joint edema. LOWER EXTREMITIES: Calves are equal size bilaterally and non-tender. 1+ bilateral LE edema. No discoloration. NEURO: Normal sensorium. No sensory or motor deficits noted. SKIN: No rash or jaundice noted. Course 1256: Past medical records reviewed. The patient was evaluated in room C08, and a complete history and physical examination were performed. Administered Medications Dicyclomine HCl (Bentyl) 10 mg PO BID MARILEE Stop: 10/25/19 20:59 Last Admin: 09/25/19 20:28 Dose: 10 mg Documented by: [id number] Folic Acid (Folvite) 1 mg PO HS MARILEE Stop: 10/25/19 20:59 Last Admin: 09/25/19 20:27 Dose: 1 mg Documented by: [id number] Gabapentin (Neurontin) 300 mg PO TID MARILEE Stop: 10/25/19 20:59 Last Admin: 09/25/19 20:27 Dose: 300 mg Documented by: [id number] Insulin Aspart (Novolog Flexpen) 0 units SC ACHS MARILEE Stop: 10/25/19 20:59 Last Admin: 09/25/19 20:26 Dose: Not Given Documented by: [id number] Cosigned by: [id number] Metoprolol Succinate (Toprol Xl) 100 mg PO BID MARILEE Stop: 10/25/19 20:59 Last Admin: 09/25/19 20:26 Dose: 100 mg Documented by: [id number] Mirtazapine (Remeron Solutab) 45 mg PO HS MARILEE Stop: 10/25/19 20:59 Last Admin: 09/25/19 20:27 Dose: 45 mg Documented by: [id number] Montelukast Sodium (Singulair) 10 mg PO HS MARILEE Stop: 10/25/19 20:59 Last Admin: 09/25/19 20:27 Dose: 10 mg Documented by: [id number] Ropinirole HCl (Requip) 0.5 mg PO HS MARILEE Stop: 10/25/19 20:59 Last Admin: 09/25/19 20:27 Dose: 0.5 mg Documented by: [id number] Fluticasone/Salmeterol (Advair Diskus 500/50) 1 puffs INH Q12 MARILEE Stop: 10/25/19 20:59 Last Admin: 09/25/19 20:25 Dose: 1 puffs Documented by: [id number] Discontinued Medications Acetaminophen (Tylenol) 1,000 mg PO NOW STA Stop: 09/25/19 17:22 Last Admin: 09/25/19 17:38 Dose: 1,000 mg Documented by: [id number] Furosemide (Lasix) 40 mg IV NOW STA Stop: 09/25/19 14:12 Last Admin: 09/25/19 14:23 Dose: 40 mg Documented by: [id number] Magnesium Sulfate/Dextrose (Magnesium Sulfate / D5w) 1 gm in 100 mls @ 100 mls/hr IV ONE ONE Stop: 09/25/19 15:10 Last Infusion: 09/25/19 15:59 Dose: 0 mls/hr Documented by: [id number] Admin: 09/25/19 14:23 Dose: 100 mls/hr Documented by: [id number] Medical Decision Making Differential Diagnosis Differential diagnoses includes but is not limited to pneumonia, bronchitis, COPD/Asthma exacerbation, pneumothorax, pulmonary embolism, congestive heart failure, acute coronary syndrome, amongst others. Medical Records Attestation: I reviewed the patient's medical records. Home Medications Current Medication List: was personally reviewed by me Laboratory Data Attestation: I reviewed the patient's lab results. Result diagrams: 09/25/19 13:23 09/25/19 13:23 Lab Results 09/25/19 09/25/19 09/25/19 Range/Units 13:23 13:23 13:23 WBC 10.66 (4.8-10.8) K/uL RBC 3.78 L (4.2-5.4) M/uL Hgb 11.4 L (12.0-16.0) g/dL Hct 35.2 L (37-47) % MCV 93.1 (80-100) fL MCH 30.2 (25-34) pg MCHC 32.4 (32-36) g/dL RDW Std Deviation 53.5 H (36.4-46.3) fL RDW Coeff of Rolan 16.1 H (11.5-14.5) % Plt Count 244 (130-400) K/uL MPV 9.2 (7.4-10.4) fL Immature Gran % (Auto) 0.3 % Neut % (Auto) 84.4 % Lymph % (Auto) 10.4 % [place] % (Auto) 3.8 % Eos % (Auto) 0.9 % Baso % (Auto) 0.2 % Immature Gran # (Auto) 0.03 H (0.00-0.02) K/uL Neut # (Auto) 9.00 H (1.4-6.5) K/uL Lymph # (Auto) 1.11 L (1.2-3.4) K/uL [place] # (Auto) 0.40 (0.11-0.59) K/uL Eos # (Auto) 0.10 (0-0.5) K/uL Baso # (Auto) 0.02 (0-0.2) K/uL VBG pH 7.38 (7.36-7.41) VBG pCO2 49 (38-50) mmHg VBG pO2 30 mmHg VBG HCO3 29 mmol/L VBG O2 Saturation < 60.0 % VBG Base Excess 2.5 mEq/L Barometric Pressure 733.1 mm/Hg Sodium 144 (136-145) mmol/L Potassium 3.6 (3.5-5.1) mmol/L Chloride 109 H (98-107) mmol/L Carbon Dioxide 27 (21-32) mmol/L Anion Gap 8.0 (3-11) BUN 17 (7-18) mg/dl Creatinine 1.23 H (0.6-1.2) mg/dl Est Cr Clr Drug Dosing 43.2 ml/min Est GFR ( Amer) 54.8 Est GFR (Non-Af Amer) 47.3 BUN/Creatinine Ratio 13.7 (10-20) Glucose 97 (70-99) mg/dl Calcium 8.9 (8.5-10.1) mg/dl Phosphorus 2.8 (2.5-4.9) mg/dl Magnesium 1.7 L (1.8-2.4) mg/dl Total Bilirubin 1.0 (0.2-1) mg/dl AST 42 H (15-37) U/L ALT 66 (12-78) U/L Alkaline Phosphatase 221 H (45-117) U/L Troponin I 0.195 H* (0-0.045) ng/ml NT-Pro-B Natriuret Pep 6058 H (0-900) pg/ml Total Protein 7.8 (6.4-8.2) gm/dl Albumin 3.6 (3.4-5.0) gm/dl Globulin 4.2 H (2.5-4.0) gm/dl Albumin/Globulin Ratio 0.9 (0.9-2) Lipase 86 (73-393) U/L Imaging Data Radiologist's Impression: Radiology results as stated below per my review and the radiologist's interpretation: XR chest 1V portable HISTORY: 59 years-old Female Chest Pain acute atypical chest pain COMPARISON: Chest radiograph 06/30/2019 TECHNIQUE: Portable AP view of the chest FINDINGS: Cardiac silhouette is enlarged. Pulmonary vascular congestion. There is mild interstitial coarsening without pneumothorax. Probable trace pleural effusions with minimal bibasilar opacities. Unchanged right pectoral pacer/ICD. Degenerative changes of the shoulders and spine. IMPRESSION: 1. Cardiomegaly with pulmonary edema. 2. Trace pleural effusions with bibasilar opacities suggestive of atelectasis. The above report was generated using voice recognition software. It may contain grammatical, syntax or spelling errors. Electronically signed by: Vidal Jay M.D. 09/25/2019 1:32 PM ECG Data Attestation: I personally reviewed and interpreted this ECG as follows: Indication: + SOB/dyspnea Rate (beats per minute): 79 Rhythm: + normal sinus ECG Findings: + Other (LVH with repolarization abnormality, QTC of 463); no PACs and no PVCs Comparison ECG Date: from (05/17/19) Change: no significant change Blood Pressure Blood Pressure Findings: Elevated blood pressure Blood Pressure Disposition: Referred to patients primary care provider MDM Narrative The patient is a pleasant 59-year-old woman with a past medical history of cardiomyopathy status post AICD on chronic oxygen, COPD, CKD who presents emergency department with worsening shortness of breath over the past 2 weeks with increased weight gain per hpi. On arrival patient is chronically ill- appearing but no acute distress, afebrile with stable vital signs. The patient has diminished breath sounds at the bases. She has 1+ bilateral lower extremity edema. EKG with LVH with repolarization abnormality similar to prior. Chest x- ray does demonstrate pulmonary edema. Troponin is 0.19 in the setting of similar chronic elevations. BNP 6000 though improved from recent. Patient was treated with IV Lasix with subsequent diuresis however but denied any significant improvement in her symptoms and was noted by nursing to be significantly dyspneic on ambulation. Thus, reasonable admit the patient for further management. Case was discussed with Dr. Patterson, [facility] hospitalist, who will evaluate the patient for admission. Impression & Plan CHF (congestive heart failure), Elevated troponin, Shortness of breath, Pulmonary edema Discharge Plan Visit Data *Final* Discharge Date/Time: 09/25/19 18:51 Chief Complaint: Shortness of Breath/Dyspnea ED Provider: Doug Andrade Discharge Problem: CHF (congestive heart failure), Elevated troponin, Shortness of breath, Pulmonary edema Patient Disposition: Admitted As Inpatient Discharge Instructions Interventions: ED Discharge Assessment Last Done: 09/25/19 18:51 The scribe's documentation has been prepared under my direction and personally reviewed by me in its entirety. I confirm that the note above accurately reflects all work, treatment, procedures, and medical decision making performed by me.
[2019-09-25] MEDS ORDERED: ACETAMINOPHEN 500 MG TAB PO STA (17:21)
--- NOTE | 2019-09-25 18:02 | History & Physical Report ---
Date of Service September 25, 2019 Assessment & Plan (1) Acute on chronic diastolic CHF (congestive heart failure): Mrs. Velasquez is a pleasant 59 yr old female who has a significant past medical history of chronic diastolic CHF, hypertrophic cardiomyopathy status post AICD, T2DM, HTN, HLD, CADENCE on nocturnal oxygen, CKD stage III depression with anxiety, mood disorder, history of migraine who presents to [facility] ED secondary to shortness of breath, increased weight gain x 1 month. In ED pt remained hemodynamically stable Initial work-up revealed elevated troponin 0.195, proBNP 6058, magnesium 1.7, H&H 11.4 and 35.2, WBC 10.66 VBG was WNL - But requiring 4 L O2 via NC BUN/creatinine stable at 17 and 1.23 She was negative for influenza A/B Chest x-ray revealed cardiomegaly with pulmonary edema, trace bilateral pleural effusion She received 40 mg IV Lasix while in ED Admit to PCU Monitor response to initial 40 mg of IV Lasix Patient significantly preload dependent due to hypertrophic cardiomyopathy; therefore will not initiate any further IV Lasix this evening unless necessary Lasix 40 mg IV daily Strict I's and O's and daily weights Heart healthy low-sodium diet Continue oxygen supplementation Cardiology consulted Recent echocardiogram 09/09/2019 as outpatient revealed (Left ventricular cavity size is markedly reduced, hyperdynamic EF greater than 70%, grade 3 diastolic dysfunction, left atrium moderately enlarged, apical severe left hypertrophy Cycle troponins Continue metoprolol, Aldactone, verapamil Hold oral Lasix There was some discrepancy with patient's medications as she is unaware of what she is taking, daughter manages her medications I did discuss her medication list thoroughly and currently should reflect what she is taking at home and compared to her [facility] records (2) Elevated troponin: Patient with chronically elevated troponin Troponin 0.195 today, no ST-T wave changes, no chest pain Trend troponin every 6hr x2 with repeat EKG Cardiology consulted (3) Diabetes mellitus, type 2: A1c 08/25/2019 6.6 On Humalog 75/25 55 units in a.m./25 units in p.m. 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: Apical hypertrophic cardiomyopathy with severe left hypertrophy extremely small left greater cavity size limiting systolic ejection fraction with chronic severe diastolic dysfunction Recent echocardiogram 09/09/2019 reveals left ventricular cavity size markedly reduced, LVEF greater than 70% hyperdynamic, grade 3 diastolic dysfunction, moderately enlarged left atrium AICD in place (10) Cardiac defibrillator in place: Secondary to hypertrophic cardiomyopathy (11) CADENCE (obstructive sleep apnea): Intolerant to CPAP Oxygen at at bedtime (12) Depression with anxiety: Patient on multiple psychiatric medications including Zoloft, Cymbalta, mirtazapine Mood is stable (13) DVT prophylaxis: Lovenox Disposition: Admit to PCU Follow-up: PCP Dr. De León upon discharge Patient was seen and examined in collaboration with Dr. Patterson, please see addendum Starting 09/26/2019 patient will be under the care of Dr. Emmanuel History of Present Illness Chief Complaint: Worsening shortness of breath x1 month. Primary Care Provider: Suad De León DO Mrs. Velasquez is a pleasant 59 yr old female who has a significant past medical history of chronic diastolic CHF, hypertrophic cardiomyopathy status post AICD, T2DM, HTN, HLD, CADENCE on nocturnal oxygen, CKD stage III depression with anxiety, mood disorder, history of migraine who presents to [facility] ED secondary to shortness of breath, increased weight gain x 1 month. She has overall not been feeling well for the past month with a continual decline. She remains on chronic oxygen despite continuing to be short of breath. She gets short of breath with even minimal activity including ADLs. She has noticed approximately 10 pound weight gain and increased lower extremity edema for the past month. She chronically has 4-5 pillow orthopnea. Sleeps with oxygen because she does not tolerate CPAP. Denies any PND. Initially 1 month ago she developed URI-like symptoms and presented to her PCP. She received a steroid taper without significant improvement. She has been following closely with her PCP and pulmonology due to her continued shortness of breath. She is also being followed outpatient sleep medicine due to CADENCE intolerant to CPAP. She has been taking her medications as prescribed. She denies any recent fever, chills, sweats, lightheadedness, dizziness, syncope, chest pain, palpitations, hemoptysis, nausea, vomiting, abdominal pain, increased urgency with urination, hematuria, melena, hematochezia. She chronically has diarrhea in which she takes intermittent Lomotil for. She currently feels increased frequency of urination after receiving IV Lasix in ED. She feels she has been doing good with low-sodium diet and monitoring fluid intake. "I was told I may need a heart transplant." Allergies Allergy/AdvReac Type Severity Reaction Status Date / Time Penicillins Allergy Intermediate Flushing, Verified 06/30/19 17:09 Itchiness Sulfa (Sulfonamide Allergy Intermediate Swelling Verified 06/30/19 17:09 Antibiotics) doxycycline Allergy Unknown Unknown Verified 06/30/19 17:09 adhesive AdvReac Intermediate Blistering Verified 06/30/19 17:09 ibuprofen AdvReac Unknown Unknown Verified 06/30/19 17:09 Home Medications Home Medications Medication Instructions Recorded Confirmed Type duloxetine 60 mg PO QAM 08/09/18 09/25/19 History folic acid 1 mg PO HS 08/09/18 09/25/19 History omeprazole 40 mg PO QAM 08/09/18 09/25/19 History sumatriptan succinate 50 mg PO DIRECTED PRN 08/09/18 09/25/19 History metformin 1,000 mg PO BIDM 08/12/18 09/25/19 History albuterol sulfate 3 ml INHALATION Q4H PRN 09/09/18 09/25/19 History diphenoxylate-atropine [Lomotil] 1 tab PO QID PRN 12/19/18 09/25/19 History atorvastatin 40 mg PO QAM #30 tab 02/19/19 09/25/19 Rx aspirin [Ecotrin Low Strength] 81 mg PO QAM 04/12/19 09/25/19 History montelukast 10 mg PO HS 04/12/19 09/25/19 History Humalog Mix 75-25 KwikPen 25 unit SUBCUT QDD 06/30/19 09/25/19 History Humalog Mix 75-25 KwikPen 55 unit SUBCUT QAM 06/30/19 09/25/19 History Tradjenta 5 mg PO QAM 06/30/19 09/25/19 History albuterol sulfate [Ventolin HFA] 2 puff INHALATION Q4H PRN 06/30/19 09/25/19 History dicyclomine 10 mg PO BID 06/30/19 09/25/19 History duloxetine 30 mg PO QAM 06/30/19 09/25/19 History escitalopram oxalate 5 mg PO QAM 06/30/19 09/25/19 History fluticasone propion-salmeterol 1 inh INHALATION Q12H 06/30/19 09/25/19 History [Advair Diskus] gabapentin 300 mg PO TID 06/30/19 09/25/19 History hydroxyzine HCl 10 mg PO Q6H PRN 06/30/19 09/25/19 History nitroglycerin [Nitrostat] 0.4 mg SUBLINGUAL DIRECTED PRN 06/30/19 09/25/19 History ondansetron 4 mg PO Q8H PRN 06/30/19 09/25/19 History sertraline 100 mg PO QAM 06/30/19 09/25/19 History spironolactone [Aldactone] 25 mg PO QAM 06/30/19 09/25/19 History furosemide 40 mg PO DAILY 09/25/19 09/25/19 History furosemide [Lasix] 80 mg PO TUTH 09/25/19 09/25/19 History metoprolol succinate 100 mg PO BID 09/25/19 09/25/19 History mirtazapine 45 mg PO HS 09/25/19 09/25/19 History ropinirole 0.5 mg PO HS 09/25/19 09/25/19 History verapamil 40 mg PO DAILY 09/25/19 09/25/19 History Past Med/Surg History Medical History Depression with anxiety (Chronic) Elevated troponin (Chronic) CKD (chronic kidney disease), stage III (Chronic) GERD (gastroesophageal reflux disease) (Chronic) HLD (hyperlipidemia) (Chronic) Hypertension (Chronic) Anxiety (Chronic) Cardiac defibrillator in place (Chronic) 2014 CADENCE (obstructive sleep apnea) (Chronic) on nocturnal O2 2L Hypertrophic cardiomyopathy (Chronic) CHF (congestive heart failure) Asthma (Chronic) COPD (chronic obstructive pulmonary disease) (Chronic) Fatty (change of) liver, not elsewhere classified (Chronic) Arthritis (Chronic) Diabetes mellitus, type 2 (Chronic) Pancreatic cyst (Chronic) Depression (Chronic) Hydronephrosis of right kidney (Chronic) Elevated troponin (Chronic) Restless leg syndrome (Chronic) Surgical History History of appendectomy (Resolved) 1970s H/O section (Resolved) 1979 & 1982 History of colostomy reversal (Resolved) bowel perf 2013 with colostomy reversed in 2014 H/O hernia repair (Resolved) 2016 Status post partial resection of colon (Chronic) "diverticulitis 11/05/14" Status post internal cardiac defibrillator procedure (Chronic) "2014" Family History Other Hypertrophic cardiomyopathy Stomach cancer Thyroid disorder Social History Preferred Language: [place] Communication Ability: Effective 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 Required: No Beliefs That Will Affect Care: None marital status: Current Living Situation: Spouse 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 Other Information That Helps Us Care for You: No Feels Safe at Home: Yes Safety Concerns: Feels Safe At This Time Smoking Status: Never smoker Second Hand Exposure: No ; Hx Alcohol Use: No Hx Substance Use: No Review of Systems Review of Systems: All systems reviewed & are unremarkable except as noted in HPI & below Physical Exam Physical Exam: Constitutional: WD/WN, F, appears chronically ill, vitals as above, NAD, sitting up in bed, pleasant, conversing easily Head: Normocephalic, Atraumatic Eyes: PERRL, conjunctivae normal, anicteric sclerae ENMT: external ear and nose normal, oropharynx normal Neck: trachea midline, no thyromegaly normal visual inspection Respiratory: On o2 via NC, normal respiratory effort, lungs clear to auscultation, no wheeze, rales, rhonchi. Normal insp/exp effort, no accessory muscle use Cardiovascular: RRR, no murmur, +2 pretibial edema Vessels: no JVD or carotid bruit Chest: normal inspection of chest Abdomen: normal bowel sounds, soft, nontender, no hepatosplenomegaly Musculoskeletal: no cyanosis or clubbing, extremities motor strength 5/5 Skin: no rashes, warm and dry normal turgor Neurologic: PERRL, EOMI, accommodation nl, no face palsy, no dysarthria CN's II-XI intact bilaterally and moves all extremities Psychiatric: A+Ox3, euthymic affect Lymphatic: no cervical or axillary lymphadenopathy : deferred Results & Data Vital Signs (Past 12 Hours) Vital Signs Temp Pulse Resp BP Pulse Ox 09/25/19 13:03 36.7 C 82 26 H 173/74 H 97 Laboratory Results Short CBC 09/25/19 Range/Units 13:23 WBC 10.66 (4.8-10.8) K/uL Hgb 11.4 L (12.0-16.0) g/dL Hct 35.2 L (37-47) % Plt Count 244 (130-400) K/uL BMP 09/25/19 13:23 Sodium 144 Potassium 3.6 Chloride 109 H Carbon Dioxide 27 BUN 17 Creatinine 1.23 H Glucose 97 Calcium 8.9 Cardiac Enzymes 09/25/19 Range/Units 13:23 Troponin I 0.195 H* (0-0.045) ng/ml Liver Function 09/25/19 Range/Units 13:23 Total Bilirubin 1.0 (0.2-1) mg/dl AST 42 H (15-37) U/L ALT 66 (12-78) U/L Alkaline Phosphatase 221 H (45-117) U/L Albumin 3.6 (3.4-5.0) gm/dl Diagnostic Findings CXR: IMPRESSION: 1. Cardiomegaly with pulmonary edema. 2. Trace pleural effusions with bibasilar opacities suggestive of atelectasis. Medications Administered Discontinued Medications Acetaminophen (Tylenol) 1,000 mg PO NOW STA Stop: 09/25/19 17:22 Last Admin: 09/25/19 17:38 Dose: 1,000 mg Documented by: [id number] Furosemide (Lasix) 40 mg IV NOW STA Stop: 09/25/19 14:12 Last Admin: 09/25/19 14:23 Dose: 40 mg Documented by: [id number] Magnesium Sulfate/Dextrose (Magnesium Sulfate / D5w) 1 gm in 100 mls @ 100 mls/hr IV ONE ONE Stop: 09/25/19 15:10 Last Infusion: 09/25/19 15:59 Dose: 0 mls/hr Documented by: [id number] Admin: 09/25/19 14:23 Dose: 100 mls/hr Documented by: [id number] ECG Rate (beats per minute): 78 Rhythm: normal sinus Change: no significant change Code Status & VTE Plan Code Status Full Code VTE Prophylaxis Plan VTE Prophylaxis will be ordered: Yes Supervising Physician Co-Signing Physician Notes Attending Addendum: care coordinated with SERGIO Rey please refer to her notes for full details, I agree with her notes patient seen and examined, records reviewed by myself as well on exam, patient seen sitting up in bed, comfortable states breathing is somewhat improved compared to admission no active chest pain, palpitations, dizziness no other symptoms VS noted and reviewed oriented x 3 , not in distress, speaks in sentences with no effort nor accessory muscle use normal rate, regular rhythm, no murmurs clear breath sounds bilaterally non distended, soft, nontender mild lower leg edema, erythema, warmth no neuro deficits WBC 10.6 Hg 11.4 Crea 1.23 ASSESSMENT AND PLAN ACUTE CHF EXACERBATION given Lasix IV gentle diuresis given Recent echocardiogram 09/09/2019 reveals left ventricular cavity size markedly reduced Cardiology consulted MILD TROPONIN ELEVATION chronic trend troponin levels other diagnoses and plan of care as per SERGIO Rey's notes Aniceto Patterson MD (1) Diabetes mellitus, type 2 Chronic kidney disease stage: stage 3 (moderate) Diabetes mellitus complication detail: with chronic kidney disease Diabetes mellitus complication status: with kidney complications Diabetes mellitus care home insulin use: 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
[2019-09-25] MEDS ORDERED: DIPHENOXYLATE/ATROPINE 2.5/0.025MG TAB PO PRN (19:12)
[2019-09-25] MEDS ORDERED: ONDANSETRON INJ 2 MG/ML 2 ML VIAL IV PRN (19:12)
[2019-09-25] MEDS ORDERED: CARBOHYDRATES FOR HYPOGLYCEMIA PO PRN ×2 (19:12→20:15)
[2019-09-25] MEDS ORDERED: GLUCAGON FOR INJ 1 MG VIAL SQ PRN (19:12)
[2019-09-25] MEDS ORDERED: POLYETHYLENE (MIRALAX) 17 GM PACK PO PRN (19:12)
[2019-09-25] MEDS ORDERED: GLUCOSE 10 TABS/TUBE PO PRN ×2 (19:12→20:15)
[2019-09-25] MEDS ORDERED: DEXTROSE 50% 50 ML SYRINGE IV PRN ×2 (19:12→20:15)
[2019-09-25] MEDS ORDERED: ALBUT/IPRATROP 3MG/0.5MG NEB 3 ML VIAL NEB PRN (19:12)
[2019-09-25] MEDS ORDERED: GLUCOSE 40% GEL 15 GM TUBE PO PRN ×2 (19:12→20:15)
[2019-09-25] MEDS ORDERED: PHARMACY GLYCEMIC MGMT CONSULT PRN (19:33)
[2019-09-25] MEDS ORDERED: GLUCAGON FOR INJ 1 MG VIAL IM PRN (20:15)
[2019-09-25] MEDS: FLUTICASONE/SALMETEROL (ADVAIR) 500/50 INH 14 PUFF INH SCH (20:25)
[2019-09-25] MEDS: INSULIN ASPART 100 UNITS/ML 3 ML PEN SC SCH (20:26)
[2019-09-25] MEDS: METOPROLOL SUCC 50MG EXT REL TAB PO SCH (20:26)
[2019-09-25] MEDS: MIRTAZAPINE SOLTAB 15 MG PO SCH (20:27)
[2019-09-25] MEDS: ROPINIROLE HCL 0.25 MG TABLET PO SCH (20:27)
[2019-09-25] MEDS: FOLIC ACID 1 MG TAB PO SCH (20:27)
[2019-09-25] MEDS: MONTELUKAST SODIUM 10 MG TABLET PO SCH (20:27)
[2019-09-25] MEDS: GABAPENTIN 300 MG CAP PO SCH (20:27)
[2019-09-25] MEDS: DICYCLOMINE HCL 10 MG CAP PO SCH (20:28)
[2019-09-26] MEDS ORDERED: PNEUMOCOCCAL ADMINISTRATION CHARGE ONE (04:30)
[2019-09-26] MEDS ORDERED: PNEUMOCOCCAL POLYSACCHARIDES 25 MCG/0.5 ML VIAL/SYR IM ONE (04:30)
[2019-09-26 06:57] LABS: Hematocrit (blood only) 34.5 % (37-47); Mean Corpuscular Hgb Conc 31.9 g/dL (32-36); Mean Platelet Volume 9.4 fL (7.4-10.4); Platelet Count 222 K/uL (130-400); RDW Coefficient of Variation 16.1 % (11.5-14.5); RDW Standard Deviation 54.3 fL (36.4-46.3); Red Blood Count 3.67 M/uL (4.2-5.4); White Blood Count 9.26 K/uL (4.8-10.8)
[2019-09-26 06:59] LABS: Estimated Average Glucose 128 mg/dl; Hemoglobin A1C 6.1 % (4.5-5.6)
[2019-09-26 07:33] LABS: Albumin Level 3.5 gm/dl (3.4-5.0); BUN Creatinine Ratio 15.2 (10-20); Creatinine Clr Calc Pharmacy 49.2 ml/min; Est GFR (African American) 66.4; Est GFR (Non-African American) 57.3; Potassium 3.5 mmol/L (3.5-5.1)
[2019-09-26 07:36] LABS: Albumin Globulin Ratio 0.9 (0.9-2); Bilirubin,Total 1.1 mg/dl (0.2-1); Globulin 3.7 gm/dl (2.5-4.0); Total Protein 7.2 gm/dl (6.4-8.2)
[2019-09-26] MEDS: FLUTICASONE/SALMETEROL (ADVAIR) 500/50 INH 14 PUFF INH SCH ×2 (08:38→20:26)
[2019-09-26] MEDS: DICYCLOMINE HCL 10 MG CAP PO SCH ×2 (08:42→20:28)
[2019-09-26] MEDS: SPIRONOLACTONE 25 MG TAB PO SCH (08:42)
[2019-09-26] MEDS: ESCITALOPRAM OXALATE 10 MG TAB PO SCH (08:43)
[2019-09-26] MEDS: ATORVASTATIN 40 MG TAB PO SCH (08:43)
[2019-09-26] MEDS: DULOXETINE HCL 30 MG CAP PO SCH (08:43)
[2019-09-26] MEDS: DULOXETINE HCL 60 MG CAP PO SCH (08:43)
[2019-09-26] MEDS: ASPIRIN 81 MG ECTAB PO SCH (08:43)
[2019-09-26] MEDS: PANTOprazole 40 MG TAB PO SCH (08:44)
[2019-09-26] MEDS: METOPROLOL SUCC 50MG EXT REL TAB PO SCH ×2 (08:44→20:27)
[2019-09-26] MEDS: GABAPENTIN 300 MG CAP PO SCH ×3 (08:44→20:27)
[2019-09-26] MEDS: FUROSEMIDE 40 MG in SYRINGE 0 ML IV SCH (08:45)
[2019-09-26] MEDS: SERTRALINE HCL 100 MG TABLET PO SCH (08:45)
[2019-09-26] MEDS: ENOXAPARIN INJ 40 MG/0.4 ML SYR SQ SCH (08:45)
[2019-09-26] MEDS ORDERED: VERAPAMIL HCL 40 MG TAB PO SCH (09:00)
[2019-09-26] MEDS ORDERED: INSULIN GLARGINE SOLOSTAR 100 UNITS/ML 3 ML PEN SC SCH (09:00)
[2019-09-26] MEDS: INSULIN ASPART 100 UNITS/ML 3 ML PEN SC SCH ×4 (09:18→20:28)
--- NOTE | 2019-09-26 10:04 | Pharmacy Report ---
Glycemic Control Consultation - Date of Service September 26, 2019 - Scope Scope: Glycemic Pharmacist consulted for glycemic control and to write orders per [facility] inpatient glycemic control protocol - Objective Weight: 73.8 kg [place] BSG (last 24hrs): 09/25/19 09/25/19 09/25/19 13:23 19:11 20:17 Glucose 97 POC Glucose 95 107 H 09/26/19 09/26/19 06:41 07:21 Glucose 142 H POC Glucose 129 H Laboratory Data (last 24hrs): 09/25/19 09/26/19 13:23 06:41 Potassium 3.6 3.5 Carbon Dioxide 27 29 Anion Gap 8.0 7.0 Creatinine 1.23 H 1.05 Est Cr Clr Drug Dosing 43.2 49.2 HbA1c: Hemoglobin A1c 6.1 % (4.5-5.6) H 09/26/19 06:41 Laboratory Tests 07/01/19 06:05 Hemoglobin A1c 9.1 H - Recent Pertinent Medications Outpatient Anti-diabetic Regimen: * humalog 75/25 mix insulin 55 units in AM + 25 units in PM * Metformin * Tradjenta - Assessment & Plan Assessment & Plan: ASSESSMENT: * 59yo T2DM female known to pharmacy from previous admissions- most recently in June. * Marked improvement in A1c since June * A1c 07/01/19 = 9.1% * A1c 09/26/19 = 6.1% * Outpatient regimen is premixed basal/prandial insulin of Humalog 75/25 mix insulin. * Pre-mixed insulin is difficult to titrate since it is already in a fixed distribution of basal:prandial insulin. Continuing pre-mixed insulin for admission typically lead to hypoglycemia d/t changing PO status but rapid acting insulin is unable to be held. * Home regimen will be held for admission per pharmacy consult. Will utilize recommended regimen of SQ basal bolus insulin regimen with Lantus + NovoLog (CF+CR) * Will start with regimen that worked well in June and titrate based on BSG trends- Patient typically does not require full outpatient dosing while admitted secondary to decrease PO intake/controlled CHO intake PLAN FOR INPATIENT GLYCEMIC CONTROL: * Holding outpatient oral diabetes medications * Basal insulin * Lantus 25 units SQ Q24hrs given in AM * Bolus insulin * NovoLog per scale ACHS or Q6hrs while NPO * Goal Range: Low 110 mg/dL - High 140 mg/dL * Correction Factor: 30 mg/dL/unit * Nutritional / Prandial insulin per carb ratio of 1 unit per 10 grams CHO consumed * Please note that the plan above was derived based on current level of insulin resistance and hospital stress. These recommendations are appropriate for inpatient admission only. Plan of care upon discharge will need to be reassessed to avoid potential outpatient hypo/hyperglycemia. Thank you.
--- NOTE | 2019-09-26 10:47 | Cardiology Consultation ---
Date of Consultation September 26, 2019 Assessment & Plan (1) Acute on chronic diastolic CHF (congestive heart failure): Patient presents with volume overload acute fluid retention abdominal distention consistent with acute on chronic diastolic heart failure secondary to severe hypertrophic cardiomyopathy Plan: Continue IV diuretics as patient has responded both symptomatically and volume reduction Increase verapamil 40 mg p.o. twice daily May consider the use of disopyramide pending on clinical course Tentative plans with outpatient visit with [facility] heart failure clinic next week depending on course (2) Hypertrophic cardiomyopathy: (3) Elevated troponin: Patient with chronic troponin elevation, cardiac catheterization December 19, 2018 mild to moderate coronary atherosclerosis without obstruction (4) Cardiac defibrillator in place: (5) Hypertension: (6) CADENCE (obstructive sleep apnea): History of Present Illness Reason for Consultation: Diastolic heart failure Requesting Physician: Dr Emmanuel Attending Physician: Mariana Emmanuel MD History of Present Illness Patient is a complex 59-year-old female ongoing issues 1.ApicalHypertrophic nonobstructive cardiomyopathy with markedly reduced LV cavity size. 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 3.Status post prophylactic pacer defibrillator [employer], model - Evera MRI XT [id number], dual chamber, September 01, 2015. 4.Labile hypertension. 5.Obesity. 6. Obstructive sleep apnea/hypoventilationwith poor CPAP tolerance on chronic nocturnal oxygen supplementation 7.Severe chronic diastolic heart failure right greater than left 8. Chronic anxiety Patient presents this admission noting gradual gain of weight and worsening shortness of breath times several weeks culminating ER visit with abdominal distention and bloating acute dyspnea. Patient has responded to IV diuretics. Notes been taking medications as prescribed. Notes no chest pains, tachypalpitations, syncope or near syncope. No defibrillator activation. No unexplained fevers or infections. No melena hematochezia dysuria hematuria Allergies Allergy/AdvReac Type Severity Reaction Status Date / Time Penicillins Allergy Intermediate Flushing, Verified 06/30/19 17:09 Itchiness Sulfa (Sulfonamide Allergy Intermediate Swelling Verified 06/30/19 17:09 Antibiotics) doxycycline Allergy Unknown Unknown Verified 06/30/19 17:09 adhesive AdvReac Intermediate Blistering Verified 06/30/19 17:09 ibuprofen AdvReac Unknown Unknown Verified 06/30/19 17:09 Home Medications Home Medications Medication Instructions Recorded Confirmed Type duloxetine 60 mg PO QAM 08/09/18 09/25/19 History folic acid 1 mg PO HS 08/09/18 09/25/19 History omeprazole 40 mg PO QAM 08/09/18 09/25/19 History sumatriptan succinate 50 mg PO DIRECTED PRN 08/09/18 09/25/19 History metformin 1,000 mg PO BIDM 08/12/18 09/25/19 History albuterol sulfate 3 ml INHALATION Q4H PRN 09/09/18 09/25/19 History diphenoxylate-atropine [Lomotil] 1 tab PO QID PRN 12/19/18 09/25/19 History atorvastatin 40 mg PO QAM #30 tab 02/19/19 09/25/19 Rx aspirin [Ecotrin Low Strength] 81 mg PO QAM 04/12/19 09/25/19 History montelukast 10 mg PO HS 04/12/19 09/25/19 History Humalog Mix 75-25 KwikPen 25 unit SUBCUT QDD 06/30/19 09/25/19 History Humalog Mix 75-25 KwikPen 55 unit SUBCUT QAM 06/30/19 09/25/19 History Tradjenta 5 mg PO QAM 06/30/19 09/25/19 History albuterol sulfate [Ventolin HFA] 2 puff INHALATION Q4H PRN 06/30/19 09/25/19 History dicyclomine 10 mg PO BID 06/30/19 09/25/19 History duloxetine 30 mg PO QAM 06/30/19 09/25/19 History escitalopram oxalate 5 mg PO QAM 06/30/19 09/25/19 History fluticasone propion-salmeterol 1 inh INHALATION Q12H 06/30/19 09/25/19 History [Advair Diskus] gabapentin 300 mg PO TID 06/30/19 09/25/19 History hydroxyzine HCl 10 mg PO Q6H PRN 06/30/19 09/25/19 History nitroglycerin [Nitrostat] 0.4 mg SUBLINGUAL DIRECTED PRN 06/30/19 09/25/19 History ondansetron 4 mg PO Q8H PRN 06/30/19 09/25/19 History sertraline 100 mg PO QAM 06/30/19 09/25/19 History spironolactone [Aldactone] 25 mg PO QAM 06/30/19 09/25/19 History furosemide 40 mg PO DAILY 09/25/19 09/25/19 History furosemide [Lasix] 80 mg PO TUTH 09/25/19 09/25/19 History metoprolol succinate 100 mg PO BID 09/25/19 09/25/19 History mirtazapine 45 mg PO HS 09/25/19 09/25/19 History ropinirole 0.5 mg PO HS 09/25/19 09/25/19 History verapamil 40 mg PO DAILY 09/25/19 09/25/19 History Patient History Medical History Depression with anxiety (Chronic) Elevated troponin (Chronic) CKD (chronic kidney disease), stage III (Chronic) GERD (gastroesophageal reflux disease) (Chronic) HLD (hyperlipidemia) (Chronic) Hypertension (Chronic) Anxiety (Chronic) Cardiac defibrillator in place (Chronic) 2014 CADENCE (obstructive sleep apnea) (Chronic) on nocturnal O2 2L Hypertrophic cardiomyopathy (Chronic) CHF (congestive heart failure) Asthma (Chronic) COPD (chronic obstructive pulmonary disease) (Chronic) Fatty (change of) liver, not elsewhere classified (Chronic) Arthritis (Chronic) Diabetes mellitus, type 2 (Chronic) Pancreatic cyst (Chronic) Depression (Chronic) Hydronephrosis of right kidney (Chronic) Elevated troponin (Chronic) Restless leg syndrome (Chronic) Surgical History History of appendectomy (Resolved) 1970s H/O section (Resolved) 1979 & 1982 History of colostomy reversal (Resolved) bowel perf 2013 with colostomy reversed in 2014 H/O hernia repair (Resolved) 2016 Status post partial resection of colon (Chronic) "diverticulitis 11/05/14" Status post internal cardiac defibrillator procedure (Chronic) "2014" Family History Other Hypertrophic cardiomyopathy Stomach cancer Thyroid disorder Social History Preferred Language: [place] Communication Ability: Effective Division Sales Manager Required: No Beliefs That Will Affect Care: None marital status: Current Living Situation: Spouse 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 Other Information That Helps Us Care for You: No Feels Safe at Home: Yes Safety Concerns: Feels Safe At This Time Smoking Status: Never smoker Second Hand Exposure: No ; Hx Alcohol Use: No Hx Substance Use: No Review of Systems Review of Systems: All systems reviewed & are unremarkable except as noted in HPI & below Physical Exam Constitutional: WD/WN, vitals as above + obese Eyes: PERRL, conjunctivae normal, anicteric sclerae ENMT: external ear and nose normal, oropharynx normal Respiratory: normal respiratory effort, lungs clear to auscultation Cardiovascular: Rate/Rhythm: regular rate and regular rhythm Heart Sounds: normal S1 and normal S2; no gallop Palpation: S3 nonpalpable Vessels: no JVD and no femoral bruit Extremities: + edema (1-2+) Gastrointestinal (Abdomen): Inspection/Auscultation: + abdomen distended (Mildly) Percussion/Palpation: abdomen soft; abdomen nontender Results & Data Vital Signs (Past 12 Hours) Vital Signs Temp Pulse Pulse Resp BP BP Pulse Ox 09/26/19 07:22 36.7 C 76 19 157/75 H 100 09/26/19 03:38 36.5 C 77 18 157/88 H 99 09/26/19 01:14 77 09/25/19 23:21 36.5 C 81 15 165/76 H 94 Laboratory Results Laboratory Results - last 24 hr 09/25/19 09/25/19 09/25/19 13:23 13:23 13:23 WBC 10.66 RBC 3.78 L Hgb 11.4 L Hct 35.2 L MCV 93.1 MCH 30.2 MCHC 32.4 RDW Std Deviation 53.5 H RDW Coeff of Rolan 16.1 H Plt Count 244 MPV 9.2 Immature Gran % (Auto) 0.3 Neut % (Auto) 84.4 Lymph % (Auto) 10.4 [place] % (Auto) 3.8 Eos % (Auto) 0.9 Baso % (Auto) 0.2 Immature Gran # (Auto) 0.03 H Neut # (Auto) 9.00 H Lymph # (Auto) 1.11 L [place] # (Auto) 0.40 Eos # (Auto) 0.10 Baso # (Auto) 0.02 VBG pH 7.38 VBG pCO2 49 VBG pO2 30 VBG HCO3 29 VBG O2 Saturation < 60.0 VBG Base Excess 2.5 Barometric Pressure 733.1 Sodium 144 Potassium 3.6 Chloride 109 H Carbon Dioxide 27 Anion Gap 8.0 BUN 17 Creatinine 1.23 H Est Cr Clr Drug Dosing 43.2 Est GFR ( Amer) 54.8 Est GFR (Non-Af Amer) 47.3 BUN/Creatinine Ratio 13.7 Glucose 97 POC Glucose Estimat Average Glucose Hemoglobin A1c Calcium 8.9 Phosphorus 2.8 Magnesium 1.7 L Total Bilirubin 1.0 AST 42 H ALT 66 Alkaline Phosphatase 221 H Troponin I 0.195 H* NT-Pro-B Natriuret Pep 6058 H Total Protein 7.8 Albumin 3.6 Globulin 4.2 H Albumin/Globulin Ratio 0.9 Lipase 86 Hepatitis C Ab Screen Influenza Type A (PCR) Influenza Type B (PCR) 09/25/19 09/25/19 09/25/19 19:11 19:50 19:50 WBC RBC Hgb Hct MCV MCH MCHC RDW Std Deviation RDW Coeff of Rolan Plt Count MPV Immature Gran % (Auto) Neut % (Auto) Lymph % (Auto) [place] % (Auto) Eos % (Auto) Baso % (Auto) Immature Gran # (Auto) Neut # (Auto) Lymph # (Auto) [place] # (Auto) Eos # (Auto) Baso # (Auto) VBG pH VBG pCO2 VBG pO2 VBG HCO3 VBG O2 Saturation VBG Base Excess Barometric Pressure Sodium Potassium Chloride Carbon Dioxide Anion Gap BUN Creatinine Est Cr Clr Drug Dosing Est GFR ( Amer) Est GFR (Non-Af Amer) BUN/Creatinine Ratio Glucose POC Glucose 95 Estimat Average Glucose Hemoglobin A1c Calcium Phosphorus Magnesium Total Bilirubin AST ALT Alkaline Phosphatase Troponin I 0.220 H* NT-Pro-B Natriuret Pep Total Protein Albumin Globulin Albumin/Globulin Ratio Lipase Hepatitis C Ab Screen Neg Influenza Type A (PCR) Influenza Type B (PCR) 09/25/19 09/25/19 09/26/19 20:17 Unknown 00:56 WBC RBC Hgb Hct MCV MCH MCHC RDW Std Deviation RDW Coeff of Rolan Plt Count MPV Immature Gran % (Auto) Neut % (Auto) Lymph % (Auto) [place] % (Auto) Eos % (Auto) Baso % (Auto) Immature Gran # (Auto) Neut # (Auto) Lymph # (Auto) [place] # (Auto) Eos # (Auto) Baso # (Auto) VBG pH VBG pCO2 VBG pO2 VBG HCO3 VBG O2 Saturation VBG Base Excess Barometric Pressure Sodium Potassium Chloride Carbon Dioxide Anion Gap BUN Creatinine Est Cr Clr Drug Dosing Est GFR ( Amer) Est GFR (Non-Af Amer) BUN/Creatinine Ratio Glucose POC Glucose 107 H Estimat Average Glucose Hemoglobin A1c Calcium Phosphorus Magnesium Total Bilirubin AST ALT Alkaline Phosphatase Troponin I 0.199 H* NT-Pro-B Natriuret Pep Total Protein Albumin Globulin Albumin/Globulin Ratio Lipase Hepatitis C Ab Screen Influenza Type A (PCR) Neg for Influ A Influenza Type B (PCR) Neg for Influ B 09/26/19 09/26/19 09/26/19 06:41 06:41 06:41 WBC 9.26 RBC 3.67 L Hgb 11.0 L Hct 34.5 L MCV 94.0 MCH 30.0 MCHC 31.9 L RDW Std Deviation 54.3 H RDW Coeff of Rolan 16.1 H Plt Count 222 MPV 9.4 Immature Gran % (Auto) Neut % (Auto) Lymph % (Auto) [place] % (Auto) Eos % (Auto) Baso % (Auto) Immature Gran # (Auto) Neut # (Auto) Lymph # (Auto) [place] # (Auto) Eos # (Auto) Baso # (Auto) VBG pH VBG pCO2 VBG pO2 VBG HCO3 VBG O2 Saturation VBG Base Excess Barometric Pressure Sodium 143 Potassium 3.5 Chloride 107 Carbon Dioxide 29 Anion Gap 7.0 BUN 16 Creatinine 1.05 Est Cr Clr Drug Dosing 49.2 Est GFR ( Amer) 66.4 Est GFR (Non-Af Amer) 57.3 BUN/Creatinine Ratio 15.2 Glucose 142 H POC Glucose Estimat Average Glucose 128 Hemoglobin A1c 6.1 H Calcium 9.0 Phosphorus Magnesium 2.0 Total Bilirubin 1.1 H AST 29 ALT 52 Alkaline Phosphatase 190 H Troponin I NT-Pro-B Natriuret Pep Total Protein 7.2 Albumin 3.5 Globulin 3.7 Albumin/Globulin Ratio 0.9 Lipase Hepatitis C Ab Screen Influenza Type A (PCR) Influenza Type B (PCR) 09/26/19 07:21 WBC RBC Hgb Hct MCV MCH MCHC RDW Std Deviation RDW Coeff of Rolan Plt Count MPV Immature Gran % (Auto) Neut % (Auto) Lymph % (Auto) [place] % (Auto) Eos % (Auto) Baso % (Auto) Immature Gran # (Auto) Neut # (Auto) Lymph # (Auto) [place] # (Auto) Eos # (Auto) Baso # (Auto) VBG pH VBG pCO2 VBG pO2 VBG HCO3 VBG O2 Saturation VBG Base Excess Barometric Pressure Sodium Potassium Chloride Carbon Dioxide Anion Gap BUN Creatinine Est Cr Clr Drug Dosing Est GFR ( Amer) Est GFR (Non-Af Amer) BUN/Creatinine Ratio Glucose POC Glucose 129 H Estimat Average Glucose Hemoglobin A1c Calcium Phosphorus Magnesium Total Bilirubin AST ALT Alkaline Phosphatase Troponin I NT-Pro-B Natriuret Pep Total Protein Albumin Globulin Albumin/Globulin Ratio Lipase Hepatitis C Ab Screen Influenza Type A (PCR) Influenza Type B (PCR) Diagnostic Findings 26-SEP-2019 06:26:58 [facility] ROUTINE RETRIEVAL Normal sinus rhythm Left ventricular hypertrophy with repolarization abnormality ( R in aVL , [place] product ) Abnormal ECG When compared with ECG of 25-SEP-2019 18:08, (unconfi rmed) No significant change was found
--- NOTE | 2019-09-26 16:20 | Hospitalist Progress Note ---
Date of Service September 26, 2019 Assessment & Plan (1) Acute on chronic diastolic CHF (congestive heart failure): Mrs. Velasquez is a pleasant 59 yr old female who has a significant past medical history of chronic diastolic CHF, hypertrophic cardiomyopathy status post AICD, T2DM, HTN, HLD, CADENCE on nocturnal oxygen, CKD stage III depression with anxiety, mood disorder, history of migraine who presents to [facility] ED secondary to shortness of breath, increased weight gain x 1 month. Presented with volume overload with acute fluid retention in abdomen consistent with acute on chronic diastolic heart failure secondary to hypertrophic cardiomyopathy Chest x-ray revealed cardiomegaly with pulmonary edema, trace bilateral pleural effusion Appreciate cardiology input and recommendation Has been getting intravenous Lasix with some improvement Recent echocardiogram 09/09/2019 as outpatient revealed (Left ventricular cavity size is markedly reduced, hyperdynamic EF greater than 70%, grade 3 diastolic dysfunction, left atrium moderately enlarged, apical severe left hypertrophy Serial troponin remained stable with mild elevation No cardiac symptoms of chest pain and/or palpitation (2) Elevated troponin: Patient with chronically elevated troponin Troponin 0.195 today, no ST-T wave changes, no chest pain Trend troponin every 6hr x2 with repeat EKG Cardiology consulted Serial cardiac enzymes remains stable without any increase in the level (3) Diabetes mellitus, type 2: A1c 08/25/2019 6.6 On Humalog 75/25 55 units in a.m./25 units in p.m. 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: Apical hypertrophic cardiomyopathy with severe left hypertrophy extremely small left greater cavity size limiting systolic ejection fraction with chronic severe diastolic dysfunction Recent echocardiogram 09/09/2019 reveals left ventricular cavity size markedly reduced, LVEF greater than 70% hyperdynamic, grade 3 diastolic dysfunction, moderately enlarged left atrium AICD in place (10) Cardiac defibrillator in place: Secondary to hypertrophic cardiomyopathy (11) CADENCE (obstructive sleep apnea): Intolerant to CPAP Oxygen at at bedtime (12) Depression with anxiety: Patient on multiple psychiatric medications including Zoloft, Cymbalta, mirtazapine Mood is stable (13) DVT prophylaxis: Lovenox Disposition: Admit to PCU Follow-up: PCP Dr. De León upon discharge Subjective 09/26 The patient was seen and examined in the telemetry unit She has been complaining of bloated feeling with more shortness of breath on minimal exertion for the last few days Noted to have fluid overload Has been getting Lasix and showing improved Denies any chest pain and/or palpitation Review of Systems Review of Systems: All systems reviewed and are unremarkable except as noted below Constitutional: + weight gain Respiratory: + dyspnea on exertion Cardiovascular: + edema; no chest pain Gastrointestinal: no abdominal pain Physical Exam Physical Exam: Sitting on a chair without any acute distress Constitutional: WD/WN, vitals as above + obese Eyes: PERRL, conjunctivae normal, anicteric sclerae ENMT: external ear and nose normal, oropharynx normal Respiratory: normal respiratory effort; no respiratory distress Auscultation: + diminished lung sounds; no crackles and no wheezes Cardiovascular: Rate/Rhythm: regular rate and regular rhythm Heart Sounds: normal S1 and normal S2; no gallop Vessels: no JVD Extremities: + edema (1-2+) Gastrointestinal (Abdomen): Inspection/Auscultation: + abdomen distended (Mildly) Percussion/Palpation: abdomen soft; abdomen nontender Neurologic: Alert awake and oriented x3 Results & Data Vital Signs (Past 12 Hours) Vital Signs Temp Pulse Resp BP Pulse Ox 09/26/19 15:40 36.7 C 76 18 143/83 H 96 09/26/19 10:57 36.6 C 75 19 147/68 H 96 09/26/19 07:22 36.7 C 76 19 157/75 H 100 Laboratory Results Short CBC 09/26/19 Range/Units 06:41 WBC 9.26 (4.8-10.8) K/uL Hgb 11.0 L (12.0-16.0) g/dL Hct 34.5 L (37-47) % Plt Count 222 (130-400) K/uL BMP 09/26/19 06:41 Sodium 143 Potassium 3.5 Chloride 107 Carbon Dioxide 29 BUN 16 Creatinine 1.05 Glucose 142 H Calcium 9.0 Cardiac Enzymes 09/25/19 09/26/19 Range/Units 19:50 00:56 Troponin I 0.220 H* 0.199 H* (0-0.045) ng/ml Liver Function 09/26/19 Range/Units 06:41 Total Bilirubin 1.1 H (0.2-1) mg/dl AST 29 (15-37) U/L ALT 52 (12-78) U/L Alkaline Phosphatase 190 H (45-117) U/L Albumin 3.5 (3.4-5.0) gm/dl Medications Administered Current Inpatient Medications Acetaminophen (Tylenol) 650 mg PO Q4H PRN PRN Reason: Pain or Fever Stop: 10/25/19 19:11 Albuterol (Duoneb) 3 ml NEB QIDR PRN PRN Reason: SOB/Wheezing Stop: 10/25/19 19:11 Aspirin (Ecotrin Ectab) 81 mg PO [facility] Stop: 10/26/19 08:59 Last Admin: 09/26/19 08:43 Dose: 81 mg Documented by: Atorvastatin Calcium (Lipitor) 40 mg PO [facility] Stop: 10/26/19 08:59 Last Admin: 09/26/19 08:43 Dose: 40 mg Documented by: Dextrose (Dextrose 50%) 25 - 50 ml IV UD PRN; Protocol PRN Reason: Hypoglycemia Protocol Stop: 10/25/19 19:11 Dextrose (Dextrose 50%) 25 - 50 ml IV UD PRN; Protocol PRN Reason: Hypoglycemia Protocol Stop: 10/25/19 20:14 Dicyclomine HCl (Bentyl) 10 mg PO BID [facility] Stop: 10/25/19 20:59 Last Admin: 09/26/19 08:42 Dose: 10 mg Documented by: Diphenoxylate HCl/Atropine (Lomotil) 1 tab PO QID PRN PRN Reason: Diarrhea Stop: 10/25/19 19:11 Duloxetine HCl (Cymbalta) 30 mg PO [facility] Stop: 10/26/19 08:59 Last Admin: 09/26/19 08:43 Dose: 30 mg Documented by: Duloxetine HCl (Cymbalta) 60 mg PO [facility] Stop: 10/26/19 08:59 Last Admin: 09/26/19 08:43 Dose: 60 mg Documented by: Enoxaparin Sodium (Lovenox) 40 mg SQ Q24H [facility] Stop: 10/26/19 08:59 Last Admin: 09/26/19 08:45 Dose: 40 mg Documented by: Escitalopram Oxalate (Lexapro Tab) 5 mg PO QAM [facility] Stop: 10/26/19 08:59 Last Admin: 09/26/19 08:43 Dose: 5 mg Documented by: Folic Acid (Folvite) 1 mg PO HS [facility] Stop: 10/25/19 20:59 Last Admin: 09/25/19 20:27 Dose: 1 mg Documented by: Gabapentin (Neurontin) 300 mg PO TID [facility] Stop: 10/25/19 20:59 Last Admin: 09/26/19 13:47 Dose: 300 mg Documented by: Glucagon (Glucagen) 1 mg SQ UD PRN; Protocol PRN Reason: Hypoglycemia Protocol Stop: 10/25/19 19:11 Glucagon (Glucagen) 1 mg IM UD PRN; Protocol PRN Reason: Hypoglycemia Protocol Stop: 10/25/19 20:14 Glucose (Glucose 40%) 15 - 30 gm PO UD PRN; Protocol PRN Reason: Hypoglycemia Protocol Stop: 10/25/19 19:11 Glucose (Dex4 Glucose) 4 - 8 tabs PO UD PRN; Protocol PRN Reason: Hypoglycemia Protocol Stop: 10/25/19 19:11 Glucose (Glucose 40%) 15 - 30 gm PO UD PRN; Protocol PRN Reason: Hypoglycemia Protocol Stop: 10/25/19 20:14 Glucose (Dex4 Glucose) 4 - 8 tabs PO UD PRN; Protocol PRN Reason: Hypoglycemia Protocol Stop: 10/25/19 20:14 Furosemide 40 mg/ Syringe 4 mls @ 4 mls/min IV DAILY [facility]E Stop: 10/26/19 08:59 Last Admin: 09/26/19 08:45 Dose: 4 mls/min Documented by: Insulin Aspart (Novolog Flexpen) 0 units SC ACHS [facility]E Stop: 10/25/19 20:59 Last Admin: 09/26/19 12:35 Dose: 5 units Documented by: Insulin Glargine (Lantus Solostar Pen) 25 units SC DAILY [facility] Stop: 10/26/19 08:59 Last Admin: 09/26/19 09:19 Dose: 25 units Documented by: Metoprolol Succinate (Toprol Xl) 100 mg PO BID [facility] Stop: 10/25/19 20:59 Last Admin: 09/26/19 08:44 Dose: 100 mg Documented by: Mirtazapine (Remeron Solutab) 45 mg PO [facility] Stop: 10/25/19 20:59 Last Admin: 09/25/19 20:27 Dose: 45 mg Documented by: Miscellaneous (Carbohydrates For Hypoglycemia) 15 - 30 gm PO UD PRN PRN Reason: Hypoglycemia Protocol Stop: 10/25/19 19:11 Miscellaneous (Carbohydrates For Hypoglycemia) 15 - 30 gm PO UD PRN PRN Reason: Hypoglycemia Treatment Stop: 10/25/19 20:14 Miscellaneous Information (Consult Glycemic Management Pharmacy) 1 ea N/A UD PRN; Protocol PRN Reason: Consult Stop: 10/25/19 19:32 Montelukast Sodium (Singulair) 10 mg PO [facility] Stop: 10/25/19 20:59 Last Admin: 09/25/19 20:27 Dose: 10 mg Documented by: Ondansetron HCl (Zofran) 4 mg IV Q6H PRN PRN Reason: Nausea Stop: 10/25/19 19:11 Pantoprazole Sodium (Protonix) 40 mg PO [facility] Stop: 10/26/19 08:59 Last Admin: 09/26/19 08:44 Dose: 40 mg Documented by: Polyethylene Glycol (Miralax Powder Packet) 17 gm PO DAILY PRN PRN Reason: Constipation Stop: 10/25/19 19:11 Ropinirole HCl (Requip) 0.5 mg PO [facility] Stop: 10/25/19 20:59 Last Admin: 09/25/19 20:27 Dose: 0.5 mg Documented by: Fluticasone/Salmeterol (Advair Diskus 500/50) 1 puffs INH Q12 [facility] Stop: 10/25/19 20:59 Last Admin: 09/26/19 08:38 Dose: 1 puffs Documented by: Sertraline HCl (Zoloft) 100 mg PO QAM [facility] Stop: 10/26/19 08:59 Last Admin: 09/26/19 08:45 Dose: 100 mg Documented by: Spironolactone (Aldactone) 25 mg PO QAM [facility] Stop: 10/26/19 08:59 Last Admin: 09/26/19 08:42 Dose: 25 mg Documented by: Verapamil HCl (Calan) 40 mg PO BID [facility] Stop: 10/26/19 20:59 (1) Diabetes mellitus, type 2 Diabetes mellitus custodial insulin use: unspecified terminal clerk insulin use status Diabetes mellitus complication status: with kidney complications Diabetes mellitus complication detail: with chronic kidney disease Chronic kidney disease stage: stage 3 (moderate) Qualified Code(s): E11.22 - Type 2 diabetes mellitus with diabetic chronic kidney disease; N18.3 - Chronic kidney disease, stage 3 (moderate)
[2019-09-26] MEDS: ACETAMINOPHEN 325 MG TAB PO PRN (19:50)
[2019-09-26] MEDS: MONTELUKAST SODIUM 10 MG TABLET PO SCH (20:27)
[2019-09-26] MEDS: VERAPAMIL HCL 40 MG TAB PO SCH (20:27)
[2019-09-26] MEDS: MIRTAZAPINE SOLTAB 15 MG PO SCH (20:27)
[2019-09-26] MEDS: ROPINIROLE HCL 0.25 MG TABLET PO SCH (20:27)
[2019-09-26] MEDS: FOLIC ACID 1 MG TAB PO SCH (23:16)
[2019-09-27 06:53] LABS: Basophils # (auto) 0.01 K/uL (0-0.2); Basophils % (auto) 0.1 %; Eosinophils % (auto) 1.1 %; Hematocrit (blood only) 33.5 % (37-47); Hemoglobin 10.7 g/dL (12.0-16.0); Immature Granulocytes # (auto) 0.03 K/uL (0.00-0.02); Immature Granulocytes % (auto) 0.3 %; Lymphocytes % (auto) 9.6 %; Mean Corpuscular Hemoglobin 30.1 pg (25-34); Mean Corpuscular Hgb Conc 31.9 g/dL (32-36); Mean Corpuscular Volume 94.4 fL (80-100); Mean Platelet Volume 9.2 fL (7.4-10.4); Monocytes # (auto) 0.35 K/uL (0.11-0.59); Monocytes % (auto) 3.7 %; Neutrophils # (auto) 7.98 K/uL (1.4-6.5); Neutrophils % (auto) 85.2 %; Platelet Count 230 K/uL (130-400); RDW Standard Deviation 54.6 fL (36.4-46.3); Red Blood Count 3.55 M/uL (4.2-5.4); White Blood Count 9.37 K/uL (4.8-10.8)
[2019-09-27 07:22] LABS: BUN Creatinine Ratio 14.8 (10-20); Creatinine Clr Calc Pharmacy 38.6 ml/min; Est GFR (African American) 49.9; Magnesium 2.1 mg/dl (1.8-2.4); Potassium 3.9 mmol/L (3.5-5.1)
[2019-09-27] MEDS: FLUTICASONE/SALMETEROL (ADVAIR) 500/50 INH 14 PUFF INH SCH ×2 (08:42→20:50)
[2019-09-27] MEDS: METOPROLOL SUCC 50MG EXT REL TAB PO SCH ×2 (08:44→20:54)
[2019-09-27] MEDS: VERAPAMIL HCL 40 MG TAB PO SCH ×2 (08:44→20:50)
[2019-09-27] MEDS: DICYCLOMINE HCL 10 MG CAP PO SCH ×2 (08:44→20:50)
[2019-09-27] MEDS: PANTOprazole 40 MG TAB PO SCH (08:44)
[2019-09-27] MEDS: ATORVASTATIN 40 MG TAB PO SCH (08:44)
[2019-09-27] MEDS: DULOXETINE HCL 30 MG CAP PO SCH (08:44)
[2019-09-27] MEDS: ESCITALOPRAM OXALATE 10 MG TAB PO SCH (08:45)
[2019-09-27] MEDS: FUROSEMIDE 40 MG in SYRINGE 0 ML IV SCH (08:45)
[2019-09-27] MEDS: GABAPENTIN 300 MG CAP PO SCH ×3 (08:45→20:51)
[2019-09-27] MEDS: ASPIRIN 81 MG ECTAB PO SCH (08:45)
[2019-09-27] MEDS: SERTRALINE HCL 100 MG TABLET PO SCH (08:46)
[2019-09-27] MEDS: SPIRONOLACTONE 25 MG TAB PO SCH (08:46)
[2019-09-27] MEDS: ENOXAPARIN INJ 40 MG/0.4 ML SYR SQ SCH (08:46)
[2019-09-27] MEDS: DULOXETINE HCL 60 MG CAP PO SCH (08:47)
[2019-09-27] MEDS: INSULIN ASPART 100 UNITS/ML 3 ML PEN SC SCH ×4 (08:48→20:52)
[2019-09-27] MEDS: INSULIN GLARGINE SOLOSTAR 100 UNITS/ML 3 ML PEN SC SCH (08:53)
--- NOTE | 2019-09-27 10:33 | Pharmacy Report ---
Glycemic Control Progress Note - Date of Service September 27, 2019 - Scope Glycemic Pharmacist consulted for glycemic control to write orders per [facility] inpatient glycemic control protocol. - Objective Accuchecks BSG(last 24 hours):: 09/26/19 09/26/19 09/26/19 11:08 16:27 20:09 Glucose POC Glucose 119 H 120 H 107 H 09/27/19 09/27/19 06:35 07:15 Glucose 222 H POC Glucose 232 H HbA1c:: Hemoglobin A1c 6.1 % (4.5-5.6) H 09/26/19 06:41 - Recent Pertinent Medications The patient is currently receiving: * Basal insulin: Lantus 25 units every 24 hours * Correctional Insulin: Novolog Correction per scale ACHS Goal Range: Low 110 mg/dL - High 140 mg/dL Correction Factor: 30 mg/dL/unit * Prandial insulin: Per carb ratio of 1 unit per 10 grams CHO consumed - Outpatient Anti-Diabetic Meds Humalog Mix 75/25 - 55 units in AM and 25 units in PM Metformin 1000 mg PO BID Tradjenta 5 mg in the morning - Assessment & Plan ASSESSMENT: * See progress note from 09/26/19 for more background info, in short: * Pt receiving SQ basal bolus insulin regimen for hyperglycemia secondary to baseline DM (outpatient regimen on hold). Patient admitted with CHF exacerbation. * Patient is currently receiving an average of 40 units of insulin per day * 25 units of basal insulin * 15 units of prandial/correctional insulin * BSGs ranging 107 - 129 mg/dl over the past 24hrs * Changes needed to insulin regimen: * AM Fasting BSG = 323 mg/dl. This is above goal range for patient based on inpatient targets and co-morbidities. Based upon previous hospitalizations patient typically requires between 25-30 units of Lantus. Increase to 30 units. * Post-prandial BSGs are in range therefore no changes needed to CF/CR. * Total daily dose = ~40-50 units. * Continue to hold metformin and Tradjenta PLAN FOR INPATIENT GLYCEMIC CONTROL: * INCREASING Lantus to 30 units SQ qAM * Continuing correction factor of 30 mg/dl/unit * Continuing carb ratio of 1 unit per 10 grams CHO consumed * Continuing goal range of Low 110 mg/dL - High 140 mg/dL * Please note that the plan above was derived based on current level of insulin resistance and hospital stress. These recommendations are appropriate for inpatient admission only. Plan of care upon discharge will need to be reassessed to avoid potential outpatient hypo/hyperglycemia. Thank you.
--- NOTE | 2019-09-27 12:21 | Cardiology Progress Note ---
Date of Service September 27, 2019 Assessment & Plan (1) Acute on chronic diastolic CHF (congestive heart failure): Patient presents with volume overload acute fluid retention abdominal distention consistent with acute on chronic diastolic heart failure secondary to severe hypertrophic cardiomyopathy Plan: Continue verapamil 40 mg p.o. twice daily May consider the use of disopyramide pending on clinical course Tentative plans with outpatient visit with [facility] next week Hold IV furosemide after dose today Reevaluate in a.m. with patient currently clinically improved Renal function is very volume dependent in this patient (2) Hypertrophic cardiomyopathy: (3) Elevated troponin: Patient with chronic troponin elevation, cardiac catheterization December 19, 2018 mild to moderate coronary atherosclerosis without obstruction (4) Cardiac defibrillator in place: (5) Hypertension: (6) CADENCE (obstructive sleep apnea): Subjective Patient seen and examined, chart, medications, telemetry reviewed. Patient feels much more comfortable this morning less dyspneic last abdominal distention edema improved. No syncope nonear syncope no dizziness or lightheadedness No fevers chills or productive cough Physical Exam Constitutional: WD/WN, vitals as above + obese Eyes: PERRL, conjunctivae normal, anicteric sclerae ENMT: external ear and nose normal, oropharynx normal Respiratory: normal respiratory effort, lungs clear to auscultation Cardiovascular: Rate/Rhythm: regular rate and regular rhythm Heart Sounds: normal S1 and normal S2; no gallop Palpation: S3 nonpalpable Vessels: no JVD and no femoral bruit Extremities: + edema (Trace, improved) Gastrointestinal (Abdomen): Inspection/Auscultation: no abdominal edema Percussion/Palpation: abdomen soft; abdomen nontender Results & Data Vital Signs (Past 12 Hours) Vital Signs Temp Pulse Resp BP Pulse Ox 09/27/19 11:28 36.6 C 68 18 126/76 93 09/27/19 07:37 36.5 C 83 18 147/77 H 92 09/27/19 03:52 36.4 C L 67 18 124/64 97 09/27/19 02:08 71 18 96 Laboratory Results Laboratory Results - last 24 hr 09/26/19 09/26/19 09/27/19 16:27 20:09 06:35 WBC 9.37 RBC 3.55 L Hgb 10.7 L Hct 33.5 L MCV 94.4 MCH 30.1 MCHC 31.9 L RDW Std Deviation 54.6 H RDW Coeff of Rolan 16.0 H Plt Count 230 MPV 9.2 Immature Gran % (Auto) 0.3 Neut % (Auto) 85.2 Lymph % (Auto) 9.6 [place] % (Auto) 3.7 Eos % (Auto) 1.1 Baso % (Auto) 0.1 Immature Gran # (Auto) 0.03 H Neut # (Auto) 7.98 H Lymph # (Auto) 0.90 L [place] # (Auto) 0.35 Eos # (Auto) 0.10 Baso # (Auto) 0.01 Sodium Potassium Chloride Carbon Dioxide Anion Gap BUN Creatinine Est Cr Clr Drug Dosing Est GFR ( Amer) Est GFR (Non-Af Amer) BUN/Creatinine Ratio Glucose POC Glucose 120 H 107 H Calcium Magnesium 09/27/19 09/27/19 09/27/19 06:35 07:15 11:13 WBC RBC Hgb Hct MCV MCH MCHC RDW Std Deviation RDW Coeff of Rolan Plt Count MPV Immature Gran % (Auto) Neut % (Auto) Lymph % (Auto) [place] % (Auto) Eos % (Auto) Baso % (Auto) Immature Gran # (Auto) Neut # (Auto) Lymph # (Auto) [place] # (Auto) Eos # (Auto) Baso # (Auto) Sodium 142 Potassium 3.9 Chloride 106 Carbon Dioxide 29 Anion Gap 7.0 BUN 20 H Creatinine 1.33 H Est Cr Clr Drug Dosing 38.6 Est GFR ( Amer) 49.9 Est GFR (Non-Af Amer) 43.0 BUN/Creatinine Ratio 14.8 Glucose 222 H POC Glucose 232 H 82 Calcium 9.0 Magnesium 2.1
[2019-09-27 13:46] LABS: Appearance Urine Clear (Clear); Bilirubin Urine Negative (Negative); Blood Urine Negative (Negative); Color Urine Yellow; Glucose Urine UA Negative (Negative); Ketones Urine Negative (Negative); Leukocyte Esterase Urine Negative (Negative); Nitrite Urine Negative (Negative); Protein Urine Negative (Negative); Specific Gravity Urine 1.012 (1.000-1.030); Urobilinogen Urine Negative (Negative); pH Urine 6.5 (4.5-7.5)
--- NOTE | 2019-09-27 17:15 | Hospitalist Progress Note ---
Date of Service September 27, 2019 Assessment & Plan (1) Acute on chronic diastolic CHF (congestive heart failure): Mrs. Velasquez is a pleasant 59 yr old female who has a significant past medical history of chronic diastolic CHF, hypertrophic cardiomyopathy status post AICD, T2DM, HTN, HLD, CADENCE on nocturnal oxygen, CKD stage III depression with anxiety, mood disorder, history of migraine who presents to [facility] ED secondary to shortness of breath, increased weight gain x 1 month. Presented with volume overload with acute fluid retention in abdomen consistent with acute on chronic diastolic heart failure secondary to hypertrophic cardiomyopathy Chest x-ray revealed cardiomegaly with pulmonary edema, trace bilateral pleural effusion Appreciate cardiology input and recommendation Has been getting intravenous Lasix with some improvement Recent echocardiogram 09/09/2019 as outpatient revealed (Left ventricular cavity size is markedly reduced, hyperdynamic EF greater than 70%, grade 3 diastolic dysfunction, left atrium moderately enlarged, apical severe left hypertrophy Serial troponin remained stable with mild elevation No cardiac symptoms of chest pain and/or palpitation Clinically not better today Doses of Lasix will be adjusted by fashion buying internship Has been on verapamil 40 mg twice daily (2) Elevated troponin: Patient with chronically elevated troponin Troponin 0.195 today, no ST-T wave changes, no chest pain Trend troponin every 6hr x2 with repeat EKG Cardiology consulted Serial cardiac enzymes remains stable without any increase in the level She has chronic troponin elevation, cardiac catheterization December 19, 2018 mild to moderate coronary atherosclerosis without obstruction (3) Diabetes mellitus, type 2: A1c 08/25/2019 6.6 On Humalog 75/25 55 units in a.m./25 units in p.m. 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: Apical hypertrophic cardiomyopathy with severe left hypertrophy extremely small left greater cavity size limiting systolic ejection fraction with chronic severe diastolic dysfunction Recent echocardiogram 09/09/2019 reveals left ventricular cavity size markedly reduced, LVEF greater than 70% hyperdynamic, grade 3 diastolic dysfunction, moderately enlarged left atrium AICD in place Trying to get an appointment with [facility] heart failure clinic next week (10) Cardiac defibrillator in place: Secondary to hypertrophic cardiomyopathy (11) CADENCE (obstructive sleep apnea): Intolerant to CPAP Oxygen at at bedtime (12) Depression with anxiety: Patient on multiple psychiatric medications including Zoloft, Cymbalta, mirtazapine Mood is stable (13) DVT prophylaxis: Lovenox Disposition: Admit to PCU Follow-up: PCP Dr. De León upon discharge Subjective 09/26 The patient was seen and examined in the telemetry unit She has been complaining of bloated feeling with more shortness of breath on minimal exertion for the last few days Noted to have fluid overload Has been getting Lasix and showing improved Denies any chest pain and/or palpitation 09/27 Patient was seen and examined in telemetry unit She has been feeling a lot better with some discomfort around the lower chest Remains shortness of breath on minimal exertion Denies any chest pain and/or palpitation Review of Systems Review of Systems: All systems reviewed and are unremarkable except as noted below Constitutional: + weight gain Respiratory: + dyspnea on exertion Cardiovascular: + edema; no chest pain Physical Exam Physical Exam: Sitting on the bed without any acute distress Constitutional: well developed, well nourished and + obese; no acute distress Eyes: PERRL, conjunctivae normal, anicteric sclerae ENMT: external ear and nose normal, oropharynx normal Respiratory: normal respiratory effort; no respiratory distress Auscultation: + diminished lung sounds; no crackles and no wheezes Cardiovascular: Rate/Rhythm: regular rate and regular rhythm Heart Sounds: normal S1 and normal S2; no gallop Vessels: no JVD Extremities: + edema (1) Gastrointestinal (Abdomen): Inspection/Auscultation: + abdomen distended (Mildly) Percussion/Palpation: abdomen soft; abdomen nontender Results & Data Vital Signs (Past 12 Hours) Vital Signs Temp Pulse Resp BP Pulse Ox 09/27/19 15:34 36.5 C 68 18 126/68 95 09/27/19 11:28 36.6 C 68 18 126/76 93 09/27/19 07:37 36.5 C 83 18 147/77 H 92 Laboratory Results Short CBC 09/27/19 Range/Units 06:35 WBC 9.37 (4.8-10.8) K/uL Hgb 10.7 L (12.0-16.0) g/dL Hct 33.5 L (37-47) % Plt Count 230 (130-400) K/uL BMP 09/27/19 06:35 Sodium 142 Potassium 3.9 Chloride 106 Carbon Dioxide 29 BUN 20 H Creatinine 1.33 H Glucose 222 H Calcium 9.0 Urine 09/27/19 Range/Units 11:40 Urine Color Yellow Urine Appearance Clear (Clear) Urine pH 6.5 (4.5-7.5) Ur Specific [place] 1.012 (1.000-1.030) Urine Protein Negative (Negative) Urine Glucose (UA) Negative (Negative) Medications Administered Current Inpatient Medications Acetaminophen (Tylenol) 650 mg PO Q4H PRN PRN Reason: Pain or Fever Stop: 10/25/19 19:11 Last Admin: 09/26/19 19:50 Dose: 650 mg Documented by: Albuterol (Duoneb) 3 ml NEB QIDR PRN PRN Reason: SOB/Wheezing Stop: 10/25/19 19:11 Last Admin: 09/27/19 02:06 Dose: 3 ml Documented by: Aspirin (Ecotrin Ectab) 81 mg PO QAM REPLACED BY [facility] Stop: 10/26/19 08:59 Last Admin: 09/27/19 08:45 Dose: 81 mg Documented by: Atorvastatin Calcium (Lipitor) 40 mg PO QAM REPLACED BY [facility] Stop: 10/26/19 08:59 Last Admin: 09/27/19 08:44 Dose: 40 mg Documented by: Dextrose (Dextrose 50%) 25 - 50 ml IV UD PRN; Protocol PRN Reason: Hypoglycemia Protocol Stop: 10/25/19 19:11 Dextrose (Dextrose 50%) 25 - 50 ml IV UD PRN; Protocol PRN Reason: Hypoglycemia Protocol Stop: 10/25/19 20:14 Dicyclomine HCl (Bentyl) 10 mg PO BID REPLACED BY [facility] Stop: 10/25/19 20:59 Last Admin: 09/27/19 08:44 Dose: 10 mg Documented by: Diphenoxylate HCl/Atropine (Lomotil) 1 tab PO QID PRN PRN Reason: Diarrhea Stop: 10/25/19 19:11 Duloxetine HCl (Cymbalta) 30 mg PO QAM REPLACED BY [facility] Stop: 10/26/19 08:59 Last Admin: 09/27/19 08:44 Dose: 30 mg Documented by: Duloxetine HCl (Cymbalta) 60 mg PO QAM REPLACED BY [facility] Stop: 10/26/19 08:59 Last Admin: 09/27/19 08:47 Dose: 60 mg Documented by: Enoxaparin Sodium (Lovenox) 40 mg SQ Q24H REPLACED BY [facility] Stop: 10/26/19 08:59 Last Admin: 09/27/19 08:46 Dose: 40 mg Documented by: Escitalopram Oxalate (Lexapro Tab) 5 mg PO QAM REPLACED BY [facility] Stop: 10/26/19 08:59 Last Admin: 09/27/19 08:45 Dose: 5 mg Documented by: Folic Acid (Folvite) 1 mg PO HS REPLACED BY [facility] Stop: 10/25/19 20:59 Last Admin: 09/26/19 23:16 Dose: 1 mg Documented by: Gabapentin (Neurontin) 300 mg PO TID REPLACED BY [facility] Stop: 10/25/19 20:59 Last Admin: 09/27/19 13:01 Dose: 300 mg Documented by: Glucagon (Glucagen) 1 mg SQ UD PRN; Protocol PRN Reason: Hypoglycemia Protocol Stop: 10/25/19 19:11 Glucagon (Glucagen) 1 mg IM UD PRN; Protocol PRN Reason: Hypoglycemia Protocol Stop: 10/25/19 20:14 Glucose (Glucose 40%) 15 - 30 gm PO UD PRN; Protocol PRN Reason: Hypoglycemia Protocol Stop: 10/25/19 19:11 Glucose (Dex4 Glucose) 4 - 8 tabs PO UD PRN; Protocol PRN Reason: Hypoglycemia Protocol Stop: 10/25/19 19:11 Glucose (Glucose 40%) 15 - 30 gm PO UD PRN; Protocol PRN Reason: Hypoglycemia Protocol Stop: 10/25/19 20:14 Glucose (Dex4 Glucose) 4 - 8 tabs PO UD PRN; Protocol PRN Reason: Hypoglycemia Protocol Stop: 10/25/19 20:14 Furosemide 40 mg/ Syringe 4 mls @ 4 mls/min IV DAILY REPLACED BY [facility] Stop: 10/26/19 08:59 Last Admin: 09/27/19 08:45 Dose: 4 mls/min Documented by: Insulin Aspart (Novolog Flexpen) 0 units SC ACHS REPLACED BY [facility] Stop: 10/25/19 20:59 Last Admin: 09/27/19 13:00 Dose: 5 units Documented by: Insulin Glargine (Lantus Solostar Pen) 30 units SC DAILY MARILEE Stop: 10/27/19 08:59 Last Admin: 09/27/19 08:53 Dose: 30 units Documented by: Metoprolol Succinate (Toprol Xl) 100 mg PO BID [facility]E Stop: 10/25/19 20:59 Last Admin: 09/27/19 08:44 Dose: 100 mg Documented by: Mirtazapine (Remeron Solutab) 45 mg PO HS [facility]E Stop: 10/25/19 20:59 Last Admin: 09/26/19 20:27 Dose: 45 mg Documented by: Miscellaneous (Carbohydrates For Hypoglycemia) 15 - 30 gm PO UD PRN PRN Reason: Hypoglycemia Protocol Stop: 10/25/19 19:11 Miscellaneous (Carbohydrates For Hypoglycemia) 15 - 30 gm PO UD PRN PRN Reason: Hypoglycemia Treatment Stop: 10/25/19 20:14 Miscellaneous Information (Consult Glycemic Management Pharmacy) 1 ea N/A UD PRN; Protocol PRN Reason: Consult Stop: 10/25/19 19:32 Montelukast Sodium (Singulair) 10 mg PO HS REPLACED BY [facility] Stop: 10/25/19 20:59 Last Admin: 09/26/19 20:27 Dose: 10 mg Documented by: Ondansetron HCl (Zofran) 4 mg IV Q6H PRN PRN Reason: Nausea Stop: 10/25/19 19:11 Pantoprazole Sodium (Protonix) 40 mg PO QAM REPLACED BY [facility] Stop: 10/26/19 08:59 Last Admin: 09/27/19 08:44 Dose: 40 mg Documented by: Polyethylene Glycol (Miralax Powder Packet) 17 gm PO DAILY PRN PRN Reason: Constipation Stop: 10/25/19 19:11 Ropinirole HCl (Requip) 0.5 mg PO HS REPLACED BY [facility] Stop: 10/25/19 20:59 Last Admin: 09/26/19 20:27 Dose: 0.5 mg Documented by: Fluticasone/Salmeterol (Advair Diskus 500/50) 1 puffs INH Q12 [facility]ILEE Stop: 10/25/19 20:59 Last Admin: 09/27/19 08:42 Dose: 1 puffs Documented by: Sertraline HCl (Zoloft) 100 mg PO QAM REPLACED BY [facility] Stop: 10/26/19 08:59 Last Admin: 09/27/19 08:46 Dose: 100 mg Documented by: Spironolactone (Aldactone) 25 mg PO QAM REPLACED BY [facility] Stop: 10/26/19 08:59 Last Admin: 09/27/19 08:46 Dose: 25 mg Documented by: Verapamil HCl (Calan) 40 mg PO BID REPLACED BY [facility] Stop: 10/26/19 20:59 Last Admin: 09/27/19 08:44 Dose: 40 mg Documented by: (1) Diabetes mellitus, type 2 Diabetes mellitus superintendent container terminal insulin use: unspecified superintendent container terminal insulin use status Diabetes mellitus complication status: with kidney complications Diabetes mellitus complication detail: with chronic kidney disease Chronic kidney disease stage: stage 3 (moderate) Qualified Code(s): E11.22 - Type 2 diabetes mellitus with diabetic chronic kidney disease; N18.3 - Chronic kidney disease, stage 3 (moderate)
[2019-09-27] MEDS: FOLIC ACID 1 MG TAB PO SCH (20:51)
[2019-09-27] MEDS: MIRTAZAPINE SOLTAB 15 MG PO SCH (20:52)
[2019-09-27] MEDS: MONTELUKAST SODIUM 10 MG TABLET PO SCH (20:53)
[2019-09-27] MEDS: ROPINIROLE HCL 0.25 MG TABLET PO SCH (20:54)
[2019-09-27] MEDS: ACETAMINOPHEN 325 MG TAB PO PRN (23:18)
[2019-09-28 06:45] LABS: BUN Creatinine Ratio 17.1 (10-20); Calcium 8.7 mg/dl (8.5-10.1); Creatinine Clr Calc Pharmacy 38.4 ml/min; Est GFR (African American) 49.4; Est GFR (Non-African American) 42.7; Magnesium 1.9 mg/dl (1.8-2.4); Phosphorus 3.7 mg/dl (2.5-4.9); Potassium 3.5 mmol/L (3.5-5.1)
[2019-09-28] MEDS: INSULIN ASPART 100 UNITS/ML 3 ML PEN SC SCH ×5 (08:14→21:39)
[2019-09-28] MEDS: INSULIN GLARGINE SOLOSTAR 100 UNITS/ML 3 ML PEN SC SCH (08:15)
[2019-09-28] MEDS: PANTOprazole 40 MG TAB PO SCH (08:16)
[2019-09-28] MEDS: VERAPAMIL HCL 40 MG TAB PO SCH ×3 (08:16→21:35)
[2019-09-28] MEDS: METOPROLOL SUCC 50MG EXT REL TAB PO SCH ×2 (08:16→21:35)
[2019-09-28] MEDS: ATORVASTATIN 40 MG TAB PO SCH (08:16)
[2019-09-28] MEDS: DULOXETINE HCL 60 MG CAP PO SCH (08:17)
[2019-09-28] MEDS: DICYCLOMINE HCL 10 MG CAP PO SCH ×2 (08:17→21:35)
[2019-09-28] MEDS: DULOXETINE HCL 30 MG CAP PO SCH (08:17)
[2019-09-28] MEDS: ESCITALOPRAM OXALATE 10 MG TAB PO SCH (08:17)
[2019-09-28] MEDS: ASPIRIN 81 MG ECTAB PO SCH (08:17)
[2019-09-28] MEDS: FLUTICASONE/SALMETEROL (ADVAIR) 500/50 INH 14 PUFF INH SCH ×2 (08:18→21:34)
[2019-09-28] MEDS: GABAPENTIN 300 MG CAP PO SCH ×3 (08:18→21:36)
[2019-09-28] MEDS: SPIRONOLACTONE 25 MG TAB PO SCH (08:18)
[2019-09-28] MEDS: SERTRALINE HCL 100 MG TABLET PO SCH (08:19)
[2019-09-28] MEDS: ENOXAPARIN INJ 40 MG/0.4 ML SYR SQ SCH (08:19)
--- NOTE | 2019-09-28 14:11 | Cardiology Progress Note ---
Date of Service September 28, 2019 Assessment & Plan (1) Acute on chronic diastolic CHF (congestive heart failure): Patient presents with volume overload acute fluid retention abdominal distention consistent with acute on chronic diastolic heart failure secondary to severe hypertrophic cardiomyopathy Plan: Increase verapamil to 40 mg 3 times daily Hold IV furosemide with likely resume oral dosing of furosemide and spironolactone in a.m. Patient on multiple anxiolytic medications with significant overlap may need to consider reduction in dosing (2) Hypertrophic cardiomyopathy: (3) Elevated troponin: Patient with chronic troponin elevation, cardiac catheterization December 19, 2018 mild to moderate coronary atherosclerosis without obstruction (4) Cardiac defibrillator in place: (5) Hypertension: (6) CADENCE (obstructive sleep apnea): Subjective Patient feels improved today less abdominal bloating, improved lower extremity edema. Still somewhat dyspneic at times denies chest pains tachypalpitations syncope or near syncope. Continues to worry and have difficulty sleeping despite multiple drug regimen Physical Exam Constitutional: WD/WN, vitals as above + obese Eyes: PERRL, conjunctivae normal, anicteric sclerae ENMT: external ear and nose normal, oropharynx normal Respiratory: normal respiratory effort, lungs clear to auscultation Cardiovascular: Rate/Rhythm: regular rate and regular rhythm Heart Sounds: normal S1 and normal S2; no gallop Palpation: S3 nonpalpable Vessels: no JVD and no femoral bruit Extremities: + edema (Trace, improved) Gastrointestinal (Abdomen): Inspection/Auscultation: no abdominal edema Percussion/Palpation: abdomen soft; abdomen nontender Results & Data Vital Signs (Past 12 Hours) Vital Signs Temp Pulse Resp BP BP Pulse Ox 09/28/19 11:24 36.6 C 63 20 111/71 93 09/28/19 07:16 36.8 C 69 20 135/82 91 09/28/19 03:44 36.6 C 70 16 106/68 92 Laboratory Results Laboratory Results - last 24 hr 09/27/19 09/27/19 09/28/19 16:20 20:20 05:55 Sodium 141 Potassium 3.5 Chloride 104 Carbon Dioxide 30 Anion Gap 7.0 BUN 23 H Creatinine 1.34 H Est Cr Clr Drug Dosing 38.4 Est GFR ( Amer) 49.4 Est GFR (Non-Af Amer) 42.7 BUN/Creatinine Ratio 17.1 Glucose 213 H POC Glucose 172 H 78 Calcium 8.7 Phosphorus 3.7 Magnesium 1.9 09/28/19 09/28/19 07:26 11:22 Sodium Potassium Chloride Carbon Dioxide Anion Gap BUN Creatinine Est Cr Clr Drug Dosing Est GFR ( Amer) Est GFR (Non-Af Amer) BUN/Creatinine Ratio Glucose POC Glucose 134 H 95 Calcium Phosphorus Magnesium
--- NOTE | 2019-09-28 14:25 | Hospitalist Progress Note ---
Date of Service September 28, 2019 Assessment & Plan (1) Acute on chronic diastolic CHF (congestive heart failure): Recent weight gain and swelling improved since admission with Lasix diuresis. However, patient is still very short of breath with an exercise tolerance. Cardiology following her and titrating her verapamil. 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 (3) Elevated troponin: chronically elevated troponin, not concerning for ACS. (4) Diabetes mellitus, type 2: Inpatient glucose at goal. A1c 08/25/2019 6.6. On Humalog 75/25 55 units in a.m./25 units in p.m. Glycemic pharmacist is consulted and managing. (5) Hypertension: Controlled. Cont metoprolol and verapamil. Lasix and aldactone held. (6) CKD (chronic kidney disease), stage III: at baseline. (7) Restless leg syndrome: Continue Requip, gabapentin (8) Cardiac defibrillator in place: Secondary to hypertrophic cardiomyopathy (9) CADENCE (obstructive sleep apnea): Intolerant to CPAP Oxygen at at bedtime (10) Depression with anxiety: Patient on multiple psychiatric medications including Zoloft, Cymbalta, mirtazapine per home regimen. (11) DVT prophylaxis: Lovenox Full Code Disposition: continue hospitalization pending further cardiology recommendations. Denise Sanchez DO [facility] Hospitalist Subjective 59 yo female reporting significant shortness of breath with exertion prior to arrival. She was admitted 3 months ago for CHF exacerbation. Weight gain and swelling were also present prior to this admission in addition to URI symptoms. Since admission Cardiology has been consulted as she has a h/o HOCM with OCD placement. She has been diuresed with improvement and is euvolemic on exam. However, she still reports significant shortness of breath even at rest on occasion. She is otherwise tolerating PO and feeling at baseline. Cardiology is titrating her verapamil and Lasix is on hold. Review of Systems Review of Systems: All systems reviewed & are unremarkable except as noted in HPI & below Physical Exam Physical Exam: CONSTITUTIONAL: WNWD, vitals as above, generally well- appearing EYES: normal conjunctivae, no scleral icterus ENT: MMM NECK: trachea midline, no JVD RESPIRATORY: clear to auscultation bilaterally, no crackles, rales or wheezes, normal respiratory effort, supplemental oxygen in place CARDIOVASCULAR: regular rate and rhythm, S1 and 2 heard without murmurs, gallops or rubs, no JVD, no peripheral edema, no carotid bruits CHEST: inspection of chest was normal with ICD palpable in right anterior chest wall GASTROINTESTINAL: normal bowel sounds, soft, nontender nondistended. MUSCULOSKELETAL: strength 5/5 throughout, head is normocephalic and atraumatic, neck supple, normal palpation of chest wall without tenderness SKIN: warm and dry NEUROLOGIC: CN 2-12 grossly intact, no gross focal deficits. PSYCHIATRIC: alert cooperative and oriented to person, place and time. Results & Data Vital Signs (Past 12 Hours) Vital Signs Temp Pulse Resp BP BP Pulse Ox 09/28/19 11:24 36.6 C 63 20 111/71 93 09/28/19 07:16 36.8 C 69 20 135/82 91 09/28/19 03:44 36.6 C 70 16 106/68 92 Laboratory Results [facility] 09/28/19 05:55 Sodium 141 Potassium 3.5 Chloride 104 Carbon Dioxide 30 BUN 23 H Creatinine 1.34 H Glucose 213 H Calcium 8.7 Medications Administered Current Inpatient Medications Acetaminophen (Tylenol) 650 mg PO Q4H PRN PRN Reason: Pain or Fever Stop: 10/25/19 19:11 Last Admin: 09/27/19 23:18 Dose: 650 mg Documented by: Albuterol (Duoneb) 3 ml NEB QIDR PRN PRN Reason: SOB/Wheezing Stop: 10/25/19 19:11 Last Admin: 09/27/19 02:06 Dose: 3 ml Documented by: Aspirin ([facility]cotrin [facility]ab) [facility] Stop: 10/26/19 08:59 Last Admin: 09/28/19 08:17 Dose: 81 mg Documented by: Atorvastatin Calcium (Lipitor) 40 mg PO QAM [facility] Stop: 10/26/19 08:59 Last Admin: 09/28/19 08:16 Dose: 40 mg Documented by: Dextrose (Dextrose 50%) 25 - 50 ml IV UD PRN; Protocol PRN Reason: Hypoglycemia Protocol Stop: 10/25/19 19:11 Dextrose (Dextrose 50%) 25 - 50 ml IV UD PRN; Protocol PRN Reason: Hypoglycemia Protocol Stop: 10/25/19 20:14 Dicyclomine HCl (Bentyl) 10 mg PO BID [facility] Stop: 10/25/19 20:59 Last Admin: 09/28/19 08:17 Dose: 10 mg Documented by: Diphenoxylate HCl/Atropine (Lomotil) 1 tab PO QID PRN PRN Reason: Diarrhea Stop: 10/25/19 19:11 Duloxetine HCl (Cymbalta) 30 mg PO QAM [facility] Stop: 10/26/19 08:59 Last Admin: 09/28/19 08:17 Dose: 30 mg Documented by: Duloxetine HCl (Cymbalta) 60 mg PO QAM [facility] Stop: 10/26/19 08:59 Last Admin: 09/28/19 08:17 Dose: 60 mg Documented by: Enoxaparin Sodium (Lovenox) 40 mg SQ Q24H [facility] Stop: 10/26/19 08:59 Last Admin: 09/28/19 08:19 Dose: 40 mg Documented by: Escitalopram Oxalate (Lexapro Tab) 5 mg PO QAM [facility] Stop: 10/26/19 08:59 Last Admin: 09/28/19 08:17 Dose: 5 mg Documented by: Folic Acid (Folvite) 1 mg PO HS [facility] Stop: 10/25/19 20:59 Last Admin: 09/27/19 20:51 Dose: 1 mg Documented by: Gabapentin (Neurontin) 300 mg PO TID [facility] Stop: 10/25/19 20:59 Last Admin: 09/28/19 08:18 Dose: 300 mg Documented by: Glucagon (Glucagen) 1 mg SQ UD PRN; Protocol PRN Reason: Hypoglycemia Protocol Stop: 10/25/19 19:11 Glucagon (Glucagen) 1 mg IM UD PRN; Protocol PRN Reason: Hypoglycemia Protocol Stop: 10/25/19 20:14 Glucose (Glucose 40%) 15 - 30 gm PO UD PRN; Protocol PRN Reason: Hypoglycemia Protocol Stop: 10/25/19 19:11 Glucose (Dex4 Glucose) 4 - 8 tabs PO UD PRN; Protocol PRN Reason: Hypoglycemia Protocol Stop: 10/25/19 19:11 Glucose (Glucose 40%) 15 - 30 gm PO UD PRN; Protocol PRN Reason: Hypoglycemia Protocol Stop: 10/25/19 20:14 Glucose (Dex4 Glucose) 4 - 8 tabs PO UD PRN; Protocol PRN Reason: Hypoglycemia Protocol Stop: 10/25/19 20:14 Furosemide 40 mg/ Syringe 4 mls @ 4 mls/min IV DAILY [facility] Stop: 10/26/19 08:59 Last Admin: 09/27/19 08:45 Dose: 4 mls/min Documented by: Insulin Aspart (Novolog Flexpen) 0 units SC ACHS [facility] Stop: 10/25/19 20:59 Last Admin: 09/28/19 12:21 Dose: 7 units Documented by: Insulin Aspart (Novolog Flexpen) 0 units SC 0000,[id number] [facility] Stop: 09/29/19 04:01 Insulin Glargine (Lantus Solostar Pen) 30 units SC DAILY [facility] Stop: 10/27/19 08:59 Last Admin: 09/28/19 08:15 Dose: 30 units Documented by: Metoprolol Succinate (Toprol Xl) 100 mg PO BID [facility] Stop: 10/25/19 20:59 Last Admin: 09/28/19 08:16 Dose: 100 mg Documented by: Mirtazapine (Remeron Solutab) 45 mg PO HS [facility] Stop: 10/25/19 20:59 Last Admin: 09/27/19 20:52 Dose: 45 mg Documented by: Miscellaneous (Carbohydrates For Hypoglycemia) 15 - 30 gm PO UD PRN PRN Reason: Hypoglycemia Protocol Stop: 10/25/19 19:11 Miscellaneous (Carbohydrates For Hypoglycemia) 15 - 30 gm PO UD PRN PRN Reason: Hypoglycemia Treatment Stop: 10/25/19 20:14 Miscellaneous Information (Consult Glycemic Management Pharmacy) 1 ea N/A UD PRN; Protocol PRN Reason: Consult Stop: 10/25/19 19:32 Montelukast Sodium (Singulair) 10 mg PO HS [facility] Stop: 10/25/19 20:59 Last Admin: 09/27/19 20:53 Dose: 10 mg Documented by: Ondansetron HCl (Zofran) 4 mg IV Q6H PRN PRN Reason: Nausea Stop: 10/25/19 19:11 Pantoprazole Sodium (Protonix) 40 mg PO QAM [facility] Stop: 10/26/19 08:59 Last Admin: 09/28/19 08:16 Dose: 40 mg Documented by: Polyethylene Glycol (Miralax Powder Packet) 17 gm PO DAILY PRN PRN Reason: Constipation Stop: 10/25/19 19:11 Ropinirole HCl (Requip) 0.5 mg PO HS [facility] Stop: 10/25/19 20:59 Last Admin: 09/27/19 20:54 Dose: 0.5 mg Documented by: Fluticasone/Salmeterol (Advair Diskus 500/50) 1 puffs INH Q12 [facility] Stop: 10/25/19 20:59 Last Admin: 09/28/19 08:18 Dose: 1 puffs Documented by: Sertraline HCl (Zoloft) 100 mg PO QAM [facility] Stop: 10/26/19 08:59 Last Admin: 09/28/19 08:19 Dose: 100 mg Documented by: Spironolactone (Aldactone) 25 mg PO QAM [facility] Stop: 10/26/19 08:59 Last Admin: 09/28/19 08:18 Dose: 25 mg Documented by: Verapamil HCl (Calan) 40 mg PO TID [facility] Stop: 10/28/19 14:14 (1) Diabetes mellitus, type 2 Chronic kidney disease stage: stage 3 (moderate) Diabetes mellitus complication detail: with chronic kidney disease Diabetes mellitus complication status: with kidney complications 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
[2019-09-28] MEDS: MIRTAZAPINE SOLTAB 15 MG PO SCH (21:35)
[2019-09-28] MEDS: ROPINIROLE HCL 0.25 MG TABLET PO SCH (21:35)
[2019-09-28] MEDS: MONTELUKAST SODIUM 10 MG TABLET PO SCH (21:35)
[2019-09-28] MEDS: FOLIC ACID 1 MG TAB PO SCH (21:35)
[2019-09-29] MEDS: INSULIN ASPART 100 UNITS/ML 3 ML PEN SC SCH ×4 (00:23→12:11)
[2019-09-29 06:44] LABS: Hematocrit (blood only) 32.7 % (37-47); Hemoglobin 10.4 g/dL (12.0-16.0); Mean Corpuscular Hemoglobin 30.1 pg (25-34); Mean Corpuscular Hgb Conc 31.8 g/dL (32-36); Mean Corpuscular Volume 94.8 fL (80-100); Mean Platelet Volume 9.5 fL (7.4-10.4); Platelet Count 221 K/uL (130-400); RDW Coefficient of Variation 16.3 % (11.5-14.5); RDW Standard Deviation 54.4 fL (36.4-46.3); Red Blood Count 3.45 M/uL (4.2-5.4); White Blood Count 10.28 K/uL (4.8-10.8)
[2019-09-29 07:17] LABS: BUN Creatinine Ratio 19.5 (10-20); Calcium 8.7 mg/dl (8.5-10.1); Creatinine Clr Calc Pharmacy 37.7 ml/min; Est GFR (African American) 48.1; Est GFR (Non-African American) 41.5; Potassium 3.9 mmol/L (3.5-5.1)
[2019-09-29] MEDS: DICYCLOMINE HCL 10 MG CAP PO SCH (08:34)
[2019-09-29] MEDS: SERTRALINE HCL 100 MG TABLET PO SCH (08:34)
[2019-09-29] MEDS: GABAPENTIN 300 MG CAP PO SCH ×2 (08:34→12:10)
[2019-09-29] MEDS: SPIRONOLACTONE 25 MG TAB PO SCH (08:34)
[2019-09-29] MEDS: ESCITALOPRAM OXALATE 10 MG TAB PO SCH (08:35)
[2019-09-29] MEDS: METOPROLOL SUCC 50MG EXT REL TAB PO SCH (08:35)
[2019-09-29] MEDS: DULOXETINE HCL 60 MG CAP PO SCH (08:35)
[2019-09-29] MEDS: DULOXETINE HCL 30 MG CAP PO SCH (08:35)
[2019-09-29] MEDS: PANTOprazole 40 MG TAB PO SCH (08:36)
[2019-09-29] MEDS: ASPIRIN 81 MG ECTAB PO SCH (08:37)
[2019-09-29] MEDS: VERAPAMIL HCL 40 MG TAB PO SCH ×2 (08:37→12:09)
[2019-09-29] MEDS: ENOXAPARIN INJ 40 MG/0.4 ML SYR SQ SCH (08:38)
[2019-09-29] MEDS: FLUTICASONE/SALMETEROL (ADVAIR) 500/50 INH 14 PUFF INH SCH (08:38)
[2019-09-29] MEDS: ATORVASTATIN 40 MG TAB PO SCH (08:38)
[2019-09-29] MEDS: INSULIN GLARGINE SOLOSTAR 100 UNITS/ML 3 ML PEN SC SCH (08:44)
--- NOTE | 2019-09-29 11:02 | Cardiology Progress Note ---
Date of Service September 29, 2019 Assessment & Plan (1) Acute on chronic diastolic CHF (congestive heart failure): Patient presents with volume overload acute fluid retention abdominal distention consistent with acute on chronic diastolic heart failure secondary to severe hypertrophic cardiomyopathy Plan: Patient stable for discharge to home today on prehospital dosing diuretics, furosemide and spironolactone Continue increased verapamil at 40 mg 3 times daily Patient has scheduled appointment with Dr. Damion Spaulding, heart failure clinic at [facility] this Sunday at 1:30 PM, HfAM 5 for ongoing evaluation (2) Hypertrophic cardiomyopathy: (3) Elevated troponin: Patient with chronic troponin elevation, cardiac catheterization December 19, 2018 mild to moderate coronary atherosclerosis without obstruction (4) Cardiac defibrillator in place: (5) Hypertension: (6) CADENCE (obstructive sleep apnea): Subjective Patient seen and examined, chart, medications, telemetry reviewed. No significant arrhythmias overnight. Intermittent pacing present as hoped for Patient is tolerating combination of Toprol and verapamil Weight down 4 kg from admission Main complaints this a.m. , did not sleep well Physical Exam Constitutional: WD/WN, vitals as above + obese Eyes: PERRL, conjunctivae normal, anicteric sclerae ENMT: external ear and nose normal, oropharynx normal Respiratory: normal respiratory effort, lungs clear to auscultation Cardiovascular: Rate/Rhythm: regular rate and regular rhythm Heart Sounds: normal S1 and normal S2; no gallop Palpation: S3 nonpalpable Vessels: no JVD and no femoral bruit Extremities: + edema (Trace, improved) Gastrointestinal (Abdomen): Inspection/Auscultation: no abdominal edema Percussion/Palpation: abdomen soft; abdomen nontender Results & Data Vital Signs (Past 12 Hours) Vital Signs Temp Pulse Resp BP BP Pulse Ox 09/29/19 07:39 36.6 C 64 19 114/63 96 09/29/19 04:00 37.1 C 64 20 118/67 95 09/29/19 00:00 37.1 C 73 16 117/88 94 Laboratory Results Laboratory Results - last 24 hr 09/28/19 09/28/19 09/28/19 11:22 16:14 20:13 WBC RBC Hgb Hct MCV MCH MCHC RDW Std Deviation RDW Coeff of Rolan Plt Count MPV Sodium Potassium Chloride Carbon Dioxide Anion Gap BUN Creatinine Est Cr Clr Drug Dosing Est GFR ( Amer) Est GFR (Non-Af Amer) BUN/Creatinine Ratio Glucose POC Glucose 95 242 H 83 Calcium Magnesium 09/28/19 09/29/19 09/29/19 23:57 04:09 06:27 WBC 10.28 RBC 3.45 L Hgb 10.4 L Hct 32.7 L MCV 94.8 MCH 30.1 MCHC 31.8 L RDW Std Deviation 54.4 H RDW Coeff of Rolan 16.3 H Plt Count 221 MPV 9.5 Sodium Potassium Chloride Carbon Dioxide Anion Gap BUN Creatinine Est Cr Clr Drug Dosing Est GFR ( Amer) Est GFR (Non-Af Amer) BUN/Creatinine Ratio Glucose POC Glucose 148 H 111 H Calcium Magnesium 09/29/19 09/29/19 06:27 07:18 WBC RBC Hgb Hct MCV MCH MCHC RDW Std Deviation RDW Coeff of Rolan Plt Count MPV Sodium 141 Potassium 3.9 Chloride 105 Carbon Dioxide 31 Anion Gap 5.0 BUN 27 H Creatinine 1.37 H Est Cr Clr Drug Dosing 37.7 Est GFR ( Amer) 48.1 Est GFR (Non-Af Amer) 41.5 BUN/Creatinine Ratio 19.5 Glucose 133 H POC Glucose 131 H Calcium 8.7 Magnesium 2.0
--- NOTE | 2019-09-29 13:46 | Pharmacy Report ---
Pharmacy Glycemic Short Note 2 - Date of Service September 29, 2019 - Glycemic Short BSG Results (Last 24 hours): 09/28/19 09/28/19 09/28/19 16:14 20:13 23:57 Glucose POC Glucose 242 H 83 148 H 09/29/19 09/29/19 09/29/19 04:09 06:27 07:18 Glucose 133 H POC Glucose 111 H 131 H 09/29/19 11:19 Glucose POC Glucose 129 H OUTPATIENT ANTIDIABETIC REGIMEN: * Humalog Mix 75/25 - 55 units in AM and 25 units in PM * Metformin 1000 mg PO BID * Tradjenta 5 mg in the morning ASSESSMENT: * 59 yo F with CHF exacerbation * BSG's ranged 83-148 mg/dL yesterday * Note - omitted 213 mg/dL from PRP in AM as I do not trust the accuracy of this number as the POC obtained only an hour or so later was 134 mg/dL, which is more consistent with AM fasting from 09/26 and 09/29 * Note - omitted 242 mg/dL at dinner yesterday as this was post-prandial (patient consumed 2 lemon ice's which were appropriately covered with additional Novolog by RN but the Novolog had not yet had time to be fully effective, thus contributing to higher BSG obtained at dinner * Patient is apparently a frequent snacker which would also explain why AM fasting BSG on 09/27 was so elevated and was inconsistent with other AM fasting BSG's on similar stressors this admission * Will continue current Lantus and Novolog parameters, with the exception of adding criteria to decrease Lantus dose based on BSG PLAN FOR INPATIENT GLYCEMIC CONTROL: * Hold outpatient oral diabetes medications * Basal insulin: Lantus SQ qAM * 20 units for BSG less than 100 mg/dL * 25 units for BSG 100-140 mg/dL * 30 units for BSG greater than 140 mg/dL * Bolus insulin * NovoLog per scale ACHS or Q6hrs while NPO * Goal Range: Low 80 mg/dL - High 140 mg/dL * Correction Factor: 30 mg/dL/unit * Nutritional / Prandial insulin per carb ratio of 1 unit per 10 grams CHO consumed
--- NOTE | 2019-09-29 15:17 | Discharge Summary ---
Date of Service September 29, 2019 Admission HPI Per Admitting Provider Mrs. Velasquez is a pleasant 59 yr old female who has a significant past medical history of chronic diastolic CHF, hypertrophic cardiomyopathy status post AICD, T2DM, HTN, HLD, CADENCE on nocturnal oxygen, CKD stage III depression with anxiety, mood disorder, history of migraine who presents to [facility] ED secondary to shortness of breath, increased weight gain x 1 month. She has overall not been feeling well for the past month with a continual decline. She remains on chronic oxygen despite continuing to be short of breath. She gets short of breath with even minimal activity including ADLs. She has noticed approximately 10 pound weight gain and increased lower extremity edema for the past month. She chronically has 4-5 pillow orthopnea. Sleeps with oxygen because she does not tolerate CPAP. Denies any PND. Initially 1 month ago she developed URI-like symptoms and presented to her PCP. She received a steroid taper without significant improvement. She has been following closely with her PCP and pulmonology due to her continued shortness of breath. She is also being followed outpatient sleep medicine due to CADENCE intolerant to CPAP. She has been taking her medications as prescribed. She denies any recent fever, chills, sweats, lightheadedness, dizziness, syncope, chest pain, palpitations, hemoptysis, nausea, vomiting, abdominal pain, increased urgency with urination, hematuria, melena, hematochezia. She chronically has diarrhea in which she takes intermittent Lomotil for. She currently feels increased frequency of urination after receiving IV Lasix in ED. She feels she has been doing good with low-sodium diet and monitoring fluid intake. "I was told I may need a heart transplant." Admission Exam Per Admitting Provider Constitutional: WD/WN, F, appears chronically ill, vitals as above, NAD, sitting up in bed, pleasant, conversing easily Head: Normocephalic, Atraumatic Eyes: PERRL, conjunctivae normal, anicteric sclerae ENMT: external ear and nose normal, oropharynx normal Neck: trachea midline, no thyromegaly normal visual inspection Respiratory: On o2 via NC, normal respiratory effort, lungs clear to auscultation, no wheeze, rales, rhonchi. Normal insp/exp effort, no accessory muscle use Cardiovascular: RRR, no murmur, +2 pretibial edema Vessels: no JVD or carotid bruit Chest: normal inspection of chest Abdomen: normal bowel sounds, soft, nontender, no hepatosplenomegaly Musculoskeletal: no cyanosis or clubbing, extremities motor strength 5/5 Skin: no rashes, warm and dry normal turgor Neurologic: PERRL, EOMI, accommodation nl, no face palsy, no dysarthria CN's II-XI intact bilaterally and moves all extremities Psychiatric: A+Ox3, euthymic affect Lymphatic: no cervical or axillary lymphadenopathy : deferred Principal Diagnosis acute on chronic diastolic heart failure hypertrophic cardiomyopathy with a h/o ICD placement dyspnea on exertion Discharge Exam CONSTITUTIONAL: WNWD, vitals as above, generally well-appearing EYES: normal conjunctivae, no scleral icterus ENT: MMM NECK: trachea midline, no JVD RESPIRATORY: clear to auscultation bilaterally, no crackles, rales or wheezes, normal respiratory effort, supplemental oxygen in place CARDIOVASCULAR: regular rate and rhythm, S1 and 2 heard without murmurs, gallops or rubs, no JVD, no peripheral edema CHEST: inspection of chest was normal with ICD palpable in right anterior chest wall GASTROINTESTINAL: normal bowel sounds, soft, nontender, nondistended. MUSCULOSKELETAL: strength 5/5 throughout, head is normocephalic and atraumatic NEUROLOGIC: CN 2-12 grossly intact, no gross focal deficits. PSYCHIATRIC: alert cooperative and oriented to person, place and time. 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 Initial work-up revealed an elevated troponin of 0.195 with a proBNP 6058. Influenza PCR was negative. Chest x-ray revealed cardiomegaly with pulmonary edema and trace bilateral pleural effusions. She received 40 mg of IV Lasix while in the ER with good response. Cardiology was consulted and she was admitted to the medicine service. IV diuretics were continued and her verapamil 40 mg was increased to twice daily. Consideration was given to using dysopyramide pending clinical course but was ultimately decided against. Verapamil was ultimately increased to 40 mg 3 times daily per cardiology recommendations. She continued to remain short of breath but was euvolemic after several days and was optimized for discharge home. She was scheduled with Dr. Damion Spaulding, a heart failure specialist at [facility], two days after discharge. Her elevated troponin was trended and determined to be inconsistent with ACS. She has a known history of chronic troponin elevation with a cardiac catheterization on December 19, 2018 showing mild to moderate coronary atherosclerosis without obstruction. She was sent home in stable condition with close primary care follow-up recommended. She did mention to me that she would like to cut down on her amount of medications. She was directed to her primary care doctor who would be better suited to do this. At time of discharge she was mentating and ambulating at baseline and tolerating p.o. She was oxygenating on her baseline amount of supplemental oxygen. She was overall improved since admission. Total Time Total Time Spent Total Time Spent (In Minutes): 60 Total Time Includes: Examination of the Patient, Discharge Planning, Medication Reconciliation, Communication With Other Providers and Other (arrange followup) Discharge Plan Discharge Items Patient Disposition: Home - Self-Care Reason For Visit: CHF EXAC,ELEVATED TROP Discharge Diagnosis: acute on chronic diastolic heart failure hypertrophic cardiomyopathy with a h/o ICD placement dyspnea on exertion Condition on Discharge: Good Health Concerns: persistent shortness of breath despite volume optimization--close follow-up with heart failure specialist at [facility] in [place] is scheduled. Activity: Resume your previous activity Non-emergency contact: Primary Care Provider Call non-emergency contact if: you have any medication questions, your symptoms worsen, your pain is not controlled, your pain is worsening, your pain is unusual for you, your pain is concerning for you and you have a fever Follow-up/Referrals: Suad De León, [Primary Care Provider] - Diet: Carb Consistent or DM2 and Low Sodium (2gm) Addtl Attending Provider Instructions: Please take all medications as instructed on discharge list below. Your verapamil has been increased to three times daily. You have the following primary care appointment as a followup to this hospitalization. Please discuss cutting down on your medication amount at this time. The visit will be to ensure that you are doing well on the new dose of medication and to monitor how your breathing has improved. 10/02/2019 1:30 PM Suad De León DO [facility] You have the following cardiology appointment scheduled: 10/01/2019 1:30 PM Damion Spaulding MD [facility]iology [facility] It was a pleasure taking care of you! Please call if you have any questions or problems. You can reach a [facility] hospitalist on duty at [facility] 24 hours a day by calling [phone]. Take care of yourself. Denise Sanchez DO [facility] Hospitalist Pending Studies at Discharge: No Stand-Alone Forms: My [facility], Smoking Cessation Medications and DC Order Prescriptions: New verapamil 40 mg Tablet 40 mg PO TID Qty: 90 RF: 1 Continued duloxetine 60 mg Capsule,Delayed Release(Dr/Ec) 60 mg PO QAM RF: 0 omeprazole 40 mg Capsule,Delayed Release(Dr/Ec) 40 mg PO QAM RF: 0 folic acid 1 mg Tablet 1 mg PO HS RF: 0 sumatriptan succinate 25 mg Tablet 50 mg PO DIRECTED PRN (Reason: Migraine Headache) RF: 0 metformin 500 mg Tablet 1,000 mg PO BIDM RF: 0 atorvastatin 40 mg Tablet 40 mg PO QAM Qty: 30 RF: 0 sertraline 100 mg tablet 100 mg PO QAM RF: 0 gabapentin 300 mg capsule 300 mg PO TID RF: 0 albuterol sulfate [Ventolin HFA] 90 mcg/actuation Hfa Aerosol Inhaler 2 puff INHALATION Q4H PRN (Reason: Wheezing) RF: 0 ondansetron 4 mg tablet,disintegrating 4 mg PO Q8H PRN (Reason: Nausea) RF: 0 dicyclomine 10 mg capsule 10 mg PO BID RF: 0 Humalog Mix 75-25 KwikPen 100 unit/mL (75-25) insulin pen 55 unit subcut QAM RF: 0 Humalog Mix 75-25 KwikPen 100 unit/mL (75-25) insulin pen 25 unit subcut QDD RF: 0 escitalopram oxalate 5 mg tablet 5 mg PO QAM RF: 0 duloxetine 30 mg capsule,delayed release(DR/EC) 30 mg PO QAM RF: 0 Tradjenta 5 mg Tablet 5 mg PO QAM RF: 0 hydroxyzine HCl 10 mg tablet 10 mg PO Q6H PRN (Reason: Anxiety) RF: 0 nitroglycerin [Nitrostat] 0.4 mg tablet, sublingual 0.4 mg sublingual DIRECTED PRN (Reason: Chest Pain) RF: 0 fluticasone propion-salmeterol [Advair Diskus] 500-50 mcg/dose Blister With Device 1 inh INHALATION Q12H RF: 0 spironolactone [Aldactone] 25 mg Tablet 25 mg PO QAM RF: 0 metoprolol succinate 100 mg tablet extended release 24 hr 100 mg PO BID RF: 0 mirtazapine 45 mg Tablet 45 mg PO HS RF: 0 ropinirole 0.5 mg Tablet 0.5 mg PO HS RF: 0 furosemide 40 mg Tablet 40 mg PO DAILY RF: 0 furosemide [Lasix] 40 mg Tablet 80 mg PO TUTH RF: 0 albuterol sulfate 2.5 mg /3 mL (0.083 %) solution for nebulization 3 ml Inhalation Q4H PRN (Reason: Wheezing) RF: 0 diphenoxylate-atropine [Lomotil] 2.5-0.025 mg Tablet 1 tab PO QID PRN (Reason: Diarrhea) RF: 0 aspirin [Ecotrin Low Strength] 81 mg tablet,delayed release (DR/EC) 81 mg PO QAM RF: 0 montelukast 10 mg tablet 10 mg PO HS RF: 0 Discontinued verapamil 40 mg Tablet 40 mg PO DAILY RF: 0 Discharge Orders: Discharge Order (Routine); Ordered 09/29/19 Ordered By: Denise Sanchez Admission Data Admit Date/Time: 09/25/19 17:21 Attending Provider: Denise Sanchez Admit Provider: Aniceto Patterson Primary Care Provider: Suad De León Other Providers: Abdirahman Giles ; Aniceto Patterson
[2019-09-30] MEDS ORDERED: INSULIN GLARGINE SOLOSTAR 100 UNITS/ML 3 ML PEN SC SCH (09:00)
== END 2019-09-29 15:57 | disposition home or self-care (01) | DRG 291 ==
LOC: ED 12:43 → SUATTDRO 17:21 → 2S 17:21

== ENCOUNTER 2020-01-13 18:19 | Inpatient (IN) ==
[2020-01-13] MEDS ORDERED: NITROGLYCERIN SL 0.4 MG/TAB TAB SL STA (19:01)
[2020-01-13 20:00] LABS: Basophils # (auto) 0.02 K/uL (0-0.2); Basophils % (auto) 0.2 %; Eosinophils # (auto) 0.12 K/uL (0-0.5); Eosinophils % (auto) 0.9 %; Hematocrit (blood only) 40.6 % (37-47); Hemoglobin 13.1 g/dL (12.0-16.0); Immature Granulocytes # (auto) 0.04 K/uL (0.00-0.02); Immature Granulocytes % (auto) 0.3 %; Lymphocytes # (auto) 1.84 K/uL (1.2-3.4); Lymphocytes % (auto) 13.9 %; Mean Corpuscular Hemoglobin 27.8 pg (25-34); Mean Corpuscular Hgb Conc 32.3 g/dL (32-36); Mean Corpuscular Volume 86.2 fL (80-100); Mean Platelet Volume 8.9 fL (7.4-10.4); Monocytes % (auto) 6.1 %; Neutrophils % (auto) 78.6 %; Platelet Count 262 K/uL (130-400); RDW Coefficient of Variation 16.3 % (11.5-14.5); RDW Standard Deviation 51.2 fL (36.4-46.3); Red Blood Count 4.71 M/uL (4.2-5.4); White Blood Count 13.22 K/uL (4.8-10.8)
--- NOTE | 2020-01-13 20:10 | XRay Report ---
XR chest 1V portable CLINICAL HISTORY: Atypical chest pain COMPARISON STUDY: 10/20/2019 FINDINGS: The heart remains enlarged. There is a right subclavian pacer/defibrillator. There is no fa ilure. There is no focal pulmonary consolidation. There are no pleural effusions.[ IMPRESSION: Persistent cardiomegaly. No acute findings. ACT 112: Negative or not required by law. Electronically signed by: Dino Spann M.D. 01/13/2020 8:09 PM
[2020-01-13 20:30] LABS: Alanine Aminotransferase 25 U/L (12-78); Albumin Level 3.7 gm/dl (3.4-5.0); Aspartate Aminotransferase 22 U/L (15-37); Blood Urea Nitrogen 24 mg/dl (7-18); Calcium 9.3 mg/dl (8.5-10.1); Carbon Dioxide 29 mmol/L (21-32); Chloride 105 mmol/L (98-107); Est GFR (African American) 50.3; Est GFR (Non-African American) 43.4; Glucose 103 mg/dl (70-99); Lipase 201 U/L (73-393); Potassium 4.7 mmol/L (3.5-5.1); Sodium 140 mmol/L (136-145)
[2020-01-13] MEDS ORDERED: LEVALBUTEROL HCL 1.25 MG/3 ML NEB NEB STA (20:33)
[2020-01-13] MEDS ORDERED: methylPREDNISolone 125 MG/2 ML VIAL IV STA (20:33)
[2020-01-13 20:37] LABS: Albumin Globulin Ratio 0.9 (0.9-2); Alkaline Phosphatase 156 U/L (45-117); Bilirubin,Total 0.2 mg/dl (0.2-1); Creatine Kinase 118 U/L (26-192); Globulin 4.3 gm/dl (2.5-4.0); NT Pro B Type Natriuretic Pept 3582 pg/ml (0-900)
[2020-01-13] MEDS ORDERED: ACETAMINOPHEN 1,000 MG/100 ML VIAL IV STA (20:50)
[2020-01-13] MEDS ORDERED: cefTRIAXone SODIUM 2,000 MG/70 ML BAG IV STA (20:50)
[2020-01-13 21:41] LABS: Influenza A virus by PCR Neg for Influ A (Neg); Influenza B virus by PCR Neg for Influ B (Neg)
[2020-01-13 22:28] LABS: Partial Thromboplastin Time 26.3 Seconds (21.0-31.0); Prothrombin Time 10.6 Seconds (9.0-12.0)
[2020-01-13] MEDS ORDERED: Heparin IV Low Dose *NO* Bolus IV ONE (22:30)
[2020-01-13] MEDS ORDERED: ACETAMINOPHEN 325 MG TAB PO PRN (22:30)
[2020-01-13] MEDS ORDERED: ALBUTEROL 0.083% NEBU SOLN 3 ML VIAL INH PRN (22:30)
[2020-01-13] MEDS ORDERED: DIPHENOXYLATE/ATROPINE 2.5/0.025MG TAB PO PRN (22:30)
[2020-01-13] MEDS ORDERED: ONDANSETRON INJ 2 MG/ML 2 ML VIAL IV PRN (22:30)
[2020-01-13] MEDS ORDERED: SUMAtriptan succinate 50 MG TAB PO PRN (22:30)
[2020-01-13] MEDS ORDERED: NITROGLYCERIN SL 0.4 MG/TAB TAB SL PRN ×2 (22:30)
[2020-01-13] MEDS ORDERED: ALBUTEROL HFA 8 GM INHALER INH PRN (22:30)
[2020-01-13] MEDS ORDERED: GLUCAGON FOR INJ 1 MG VIAL IM PRN (23:00)
[2020-01-13] MEDS ORDERED: DEXTROSE 50% 50 ML SYRINGE IV PRN (23:00)
[2020-01-13] MEDS ORDERED: CARBOHYDRATES FOR HYPOGLYCEMIA PO PRN (23:00)
[2020-01-13] MEDS ORDERED: GLUCOSE 10 TABS/TUBE PO PRN (23:00)
[2020-01-13] MEDS ORDERED: GLUCOSE 40% GEL 15 GM TUBE PO PRN (23:00)
[2020-01-13] MEDS: HEPARIN SODIUM/DEXTROSE 25,000 UNITS/500 ML BAG IV SCH (23:19)
[2020-01-13] MEDS: INSULIN GLARGINE SOLOSTAR 100 UNITS/ML 3 ML PEN SC SCH (23:41)
[2020-01-13] MEDS: METOPROLOL SUCC 50MG EXT REL TAB PO SCH (23:41)
--- NOTE | 2020-01-14 00:35 | History and Physical Report ---
DATE OF ADMISSION: 01/13/2020 CHIEF COMPLAINT: Chest pain and shortness of breath. HISTORY OF PRESENT ILLNESS: This is a 59-year-old female with past medical history significant for type 2 diabetes, chronic respiratory failure, on oxygen all the time, obstructive sleep apnea, noncompliant with CPAP use, oxygen at nighttime, history of hypertrophic obstructive cardiomyopathy, status post ICD, history of chronic diastolic CHF, hypertension, CAD, irritable bowel syndrome, morbid obesity, chronic kidney disease stage III, chronic migraine. Presents with chest pain since yesterday on and off, about 6/10 to 7/10 in severity, radiating to left arm and also she has chronic shortness of breath, uses oxygen all the time, and her sob seemed to be a little worse the last few days. She is not coughing up anything. No fever, no chills, but she has some sore throat and earache starting today. Some mild dizziness while ambulating. Because of ongoing symptoms she came to the ER. Currently, resting comfortably and hemodynamically stable .She received prednisone, breathing treatments and nitroglycerin in the ER and currently chest pain is almost resolved. Was nauseous, but no vomiting, no abdominal pain. No runny nose. Appetite is okay. Sleeps okay. She usually has diarrhea, but today she is somewhat constipated. No blood in the stools or black stools. No burning micturition or hematuria. No swelling in the legs, no rash. ALLERGIES: PENICILLINS, DOXYCYCLINE, SULFA ANTIBIOTICS, TAPES. PAST MEDICAL HISTORY: As mentioned above. PAST SURGICAL HISTORY: Bilateral carpal tunnel surgery, C-sections, colonoscopy, EGD with endoscopic ultrasound, history of septic shock, pneumoperitoneum and perforated diverticulitis in 2013, status post ICD, incisional hernia repair, partial removal of the colon, appendectomy, right trigger finger release. MEDICATIONS: The patient is on Requip 0.5 mg p.o. at bedtime, Aldactone 25 mg p.o. daily, Mucinex 1200 mg p.o. b.i.d., oxygen 2 liters at rest and 2.5 liters with exertion, Toprol-XL 100 mg p.o. b.i.d., verapamil 40 mg p.o. q.i.d., Cymbalta 90 mg p.o. daily, folic acid 1 mg p.o. daily, NovoLog 70/30, 55 units before breakfast and 25 units before supper, Zofran 4 mg p.o. t.i.d. p.r.n., Protonix 40 mg p.o. b.i.d., Demadex 10 mg p.o. daily, Januvia 100 mg p.o. daily, Pulmicort 0.5 mg nebulization every 12 hours, Remeron 40 mg p.o. at bedtime, albuterol 2 puffs every 4 hours p.r.n., Advair Diskus 500/50 mcg 1 puff b.i.d., metformin 1000 mg p.o. b.i.d., Lomotil 1 tablet q.i.d. p.r.n., gabapentin 300 mg p.o. t.i.d., nitroglycerin 0.4 mg sublingual p.r.n., Imitrex 50 mg p.o. p.r.n., albuterol nebulization every 4 hours p.r.n., Lipitor 40 mg p.o. daily, aspirin 81 mg p.o. daily. FAMILY HISTORY: Significant for mother has arthritis, thyroid disorder, hyperlipidemia, hypertension; daughter has seizures, traumatic brain injury; sister has diabetes. SOCIAL HISTORY: , lives with . No smoking, no alcohol, no drug use. REVIEW OF SYSTEMS: As per HPI. Rest of review of systems negative. PHYSICAL EXAMINATION: GENERAL: The patient is obese, currently not in acute distress. VITAL SIGNS: Temperature 37.3, pulse 56, respiratory rate 16, blood pressure 112/66, oxygen 97% on 3 liters. HEENT: No pallor, no icterus. Pupils equal, round, and reactive to light. Ear exam normal. NECK: No JVD, no neck masses, no carotid bruits. CARDIOVASCULAR: S1, S2 heard, regular rate and rhythm, no murmur, no gallop. RESPIRATORY SYSTEM: Normal AP diameter. No accessory muscle use. No wheezing, no crackles. ABDOMEN: Soft, bowel sounds present, nontender. No distention. CENTRAL NERVOUS SYSTEM: Cranial nerves II-XII grossly intact, nonfocal. EXTREMITIES: No edema, no erythema. LABORATORY DATA: WBC 13.2, hemoglobin 13.1, hematocrit 40.6, platelets 262. Sodium 140, potassium 4.7, chloride 105, bicarbonate 29, BUN 24, creatinine 1.32, serum glucose 103, calcium 9.3, total bilirubin 0.2, AST 22, ALT 25, alkaline phosphatase 156, total creatinine kinase 118, CK-MB 6, troponin I of 0.3. BNP 3500. Lipase 201. Influenza A and B pending. IMAGING DATA: Chest x-ray, no acute findings. EKG: Normal sinus rhythm at a rate of 69, no significant change was found. ASSESSMENT AND PLAN: This is a 59-year-old female who presents with chest pain, shortness of breath, and sore throat. 1. Chest pain, rule out acute coronary syndrome. Troponin is mildly elevated at 0.3, possible non ST elevated myocardial infarction with troponin I of 0.3, CK-MB 6, chronically elevated, but seems more than usual. EKG, no acute findings. Improved with nitro. Will empirically start her on IV heparin low dose. Follow serial cardiac enzymes, echocardiogram, n.p.o. after midnight, consult cardiology in a.m., and monitor in tele floor. 2. History of coronary artery disease, on aspirin, statin, and Toprol-XL. We will follow echo. 3. History of sleep apnea, did not tolerate CPAP on oxygen. 4. History of hypertrophic cardiomyopathy, history of diastolic congestive heart failure, status post ICD. Continue her home Demadex and Toprol-XL. and Aldactone. Currently not in volume overload. 5. Complaining of sore throat and shortness of breath, more than usual. Seemed to be possible upper respiratory infection. Received Rocephin in the ER. Will continue with p.o. Omnicef. Follow the throat cultures. 6. Diabetes. The patient is currently n.p.o. after midnight. We will hold her home NovoLog 70/30 and also p.o. medications. Placed on Lantus 10 units b.i.d. and insulin sliding scale. When patient is back on diet will place her back to her home regimen. 7. Chronic kidney disease stage III, presently creatinine of 1.32, which is at baseline. We will follow the labs. 8. Depression, continue her home medication of Remeron and Cymbalta. 9. Deep venous thrombosis prophylaxis. Starting on IV heparin. DISPOSITION: Closely monitor in the tele floor. Level 1 full code. PT and OT prior to discharge. Social service to help with discharge planning. FIDE
[2020-01-14 01:15] LABS: Creatine Kinase MB 6.4 ng/ml (0.5-3.6); Troponin I 0.267 ng/ml (0-0.045)
[2020-01-14] MEDS: INSULIN ASPART 100 UNITS/ML 3 ML PEN SC SCH ×4 (06:05→20:56)
[2020-01-14 06:06] LABS: Basophils # (auto) 0.01 K/uL (0-0.2); Basophils % (auto) 0.1 %; Hematocrit (blood only) 42.7 % (37-47); Hemoglobin 13.9 g/dL (12.0-16.0); Immature Granulocytes # (auto) 0.04 K/uL (0.00-0.02); Immature Granulocytes % (auto) 0.3 %; Lymphocytes # (auto) 0.68 K/uL (1.2-3.4); Lymphocytes % (auto) 5.5 %; Mean Corpuscular Hemoglobin 28.1 pg (25-34); Mean Corpuscular Hgb Conc 32.6 g/dL (32-36); Mean Corpuscular Volume 86.4 fL (80-100); Mean Platelet Volume 8.7 fL (7.4-10.4); Monocytes # (auto) 0.08 K/uL (0.11-0.59); Monocytes % (auto) 0.6 %; Neutrophils # (auto) 11.66 K/uL (1.4-6.5); Neutrophils % (auto) 93.5 %; Platelet Count 271 K/uL (130-400); RDW Coefficient of Variation 16.2 % (11.5-14.5); RDW Standard Deviation 51.3 fL (36.4-46.3); Red Blood Count 4.94 M/uL (4.2-5.4); White Blood Count 12.47 K/uL (4.8-10.8)
[2020-01-14 06:16] LABS: Partial Thromboplastin Time 25.8 Seconds (21.0-31.0)
[2020-01-14] MEDS ORDERED: HEPARIN IV BOLUS 4,000 UNITS in SYRINGE 0 ML IV ONE ×2 (06:30→14:45)
[2020-01-14 06:39] LABS: BUN Creatinine Ratio 18.7 (10-20); Calcium 9.3 mg/dl (8.5-10.1); Creatinine Clr Calc Pharmacy 38.2 ml/min; Est GFR (Non-African American) 42.3; Magnesium 2.2 mg/dl (1.8-2.4); Potassium 4.6 mmol/L (3.5-5.1)
[2020-01-14 06:46] LABS: Creatine Kinase MB 6.7 ng/ml (0.5-3.6); Troponin I 0.174 ng/ml (0-0.045)
[2020-01-14 07:22] LABS: Estimated Average Glucose 151 mg/dl; Hemoglobin A1C 6.9 % (4.5-5.6)
[2020-01-14] MEDS: BUDESONIDE 0.5 MG/2 ML VIAL (PULMICORT) INH SCH ×2 (07:43→18:58)
[2020-01-14] MEDS ORDERED: DULOXETINE HCL 60 MG CAP PO SCH (09:00)
[2020-01-14] MEDS: ATORVASTATIN 40 MG TAB PO SCH (09:14)
[2020-01-14] MEDS: SPIRONOLACTONE 25 MG TAB PO SCH (09:14)
[2020-01-14] MEDS: ASPIRIN 81 MG ECTAB PO SCH (09:14)
[2020-01-14] MEDS: FAMOTIDINE 20 MG TAB PO SCH ×2 (09:14→20:10)
[2020-01-14] MEDS: PANTOprazole 40 MG TAB PO SCH (09:14)
[2020-01-14] MEDS: GABAPENTIN 300 MG CAP PO SCH ×3 (09:14→20:10)
[2020-01-14] MEDS: FLUTICASONE/VILANTEROL 200/25MCG 14 PUFFS/INHALER INH SCH (09:14)
[2020-01-14] MEDS: INSULIN GLARGINE SOLOSTAR 100 UNITS/ML 3 ML PEN SC SCH ×2 (09:16→20:55)
[2020-01-14] MEDS: DULOXETINE HCL 30 MG CAP PO SCH (09:17)
[2020-01-14] MEDS: METOPROLOL SUCC 50MG EXT REL TAB PO SCH ×2 (09:25→20:09)
[2020-01-14] MEDS: CEFDINIR 300 MG CAP PO SCH ×2 (10:04→20:10)
--- NOTE | 2020-01-14 10:42 | Hospitalist Progress Note ---
Date of Service January 14, 2020 Assessment & Plan (1) Chest pain: ASSESSMENT AND PLAN: This is a 59-year-old female who presents with chest pain, shortness of breath, and sore throat. 1. Chest pain, rule out acute coronary syndrome. Troponins: 0.2, 0.1, 0.1 EKG: No signs of acute ischemia or infarct Echo: Left ventricular wall motion is normal, EF more than 70%, diastolic dysfunction grade 2 Cardiology service consulted, Dr. Bruno Continue heparin for now Monitor closely 2. History of coronary artery disease, on aspirin, statin, and Toprol-XL. 3. History of sleep apnea, did not tolerate CPAP on oxygen. 4. History of hypertrophic cardiomyopathy, history of diastolic congestive heart failure, status post ICD. -Euvolemic -Continue Demadex and Toprol-XL. and Aldactone. 5. Complaining of sore throat and shortness of breath, more than usual. --Possible component of upper respiratory tract infection --Flu PCR negative --Continue cefdinir 6. Diabetes. The patient is currently n.p.o. after midnight. We will hold her home NovoLog 70/30 and also p.o. medications. --Continue Lantus 10 units twice daily, insulin sliding 7. Chronic kidney disease stage III, presently creatinine of 1.32 --At baseline 8. Depression, continue her home medication of Remeron and Cymbalta. 9. Deep venous thrombosis prophylaxis. on IV heparin. DISPOSITION: Closely monitor in the tele floor. Level 1 full code. PT and OT prior to discharge. Social service to help with discharge planning. Admission and Anticipated Discharge Date Admission Date: January 13, 2020 Subjective Follow-up for chest pain, elevated troponin Seen resting in bedside chair, comfortable Patient still reports intermittent left-sided chest pain, pressure, no associated symptom Denies cough, sputum production, fevers or chills No abdominal pain, nausea or vomiting Denies other symptoms Review of Systems Review of Systems: All systems reviewed & are unremarkable except as noted in HPI & below Physical Exam Physical Exam: General- oriented x 3, not in distress, speaks in sentences with no effort or accessory muscle use Head- atraumatic Eyes- PERRL, EOMI, anicteric ENT- oropharynx clear Neck- supple, no JVD, no adenopathy, no thyromegaly; carotids +2/2, no bruits appreciated Lungs- clear to auscultation bilaterally, no rales/wheezes Heart- normal rate, regular rhythm; no murmur, no gallop, no rub appreciated Abdomen- normal bowel sounds, nondistended, soft, nontender, no masses or hepatosplenomegaly Extremities- no pretibial edema, no calf tenderness; peripheral pulses intact Neuro- alert, oriented x 3; CN 2-12 grossly intact; motor 5/5 bilaterally;sensation 100% on all extremities; no other gross focal neurologic deficits Skin- warm & dry Results & Data ([facility]) Vital Signs (Past 12 Hours) Vital Signs Temp Pulse Pulse Resp BP Pulse Ox 01/14/20 08:00 85 01/14/20 07:44 77 18 96 01/14/20 07:04 36.4 C L 73 22 123/78 100 01/14/20 03:43 36.4 C L 77 17 119/76 99 01/14/20 00:22 70 Laboratory Results Laboratory Results - last 24 hr 01/13/20 01/13/20 01/13/20 19:35 19:35 19:35 WBC 13.22 H RBC 4.71 Hgb 13.1 Hct 40.6 MCV 86.2 MCH 27.8 MCHC 32.3 RDW Std Deviation 51.2 H RDW Coeff of Rolan 16.3 H Plt Count 262 MPV 8.9 Immature Gran % (Auto) 0.3 Neut % (Auto) 78.6 Lymph % (Auto) 13.9 [place] % (Auto) 6.1 Eos % (Auto) 0.9 Baso % (Auto) 0.2 Immature Gran # (Auto) 0.04 H Neut # (Auto) 10.40 H Lymph # (Auto) 1.84 [place] # (Auto) 0.80 H Eos # (Auto) 0.12 Baso # (Auto) 0.02 PT Cancelled INR Cancelled APTT Cancelled PTT Ratio Cancelled Sodium 140 Potassium 4.7 Chloride 105 Carbon Dioxide 29 Anion Gap 6.0 BUN 24 H Creatinine 1.32 H Est Cr Clr Drug Dosing Not Reportable Est GFR ( Amer) 50.3 Est GFR (Non-Af Amer) 43.4 BUN/Creatinine Ratio 18.0 Glucose 103 H POC Glucose Estimat Average Glucose Hemoglobin A1c Calcium 9.3 Magnesium Total Bilirubin 0.2 AST 22 ALT 25 Alkaline Phosphatase 156 H Total Creatine Kinase 118 CK-MB (CK-2) 6.0 H CK/CKMB % Calc 5.1 H Troponin I 0.300 H* NT-Pro-B Natriuret Pep 3582 H Total Protein 8.0 Albumin 3.7 Globulin 4.3 H Albumin/Globulin Ratio 0.9 Lipase 201 Specimen Hemolysis Influenza Type A (PCR) Influenza Type B (PCR) 01/13/20 01/13/20 01/13/20 20:50 22:00 23:37 WBC RBC Hgb Hct MCV MCH MCHC RDW Std Deviation RDW Coeff of Rolan Plt Count MPV Immature Gran % (Auto) Neut % (Auto) Lymph % (Auto) [place] % (Auto) Eos % (Auto) Baso % (Auto) Immature Gran # (Auto) Neut # (Auto) Lymph # (Auto) [place] # (Auto) Eos # (Auto) Baso # (Auto) PT 10.6 INR 1.0 APTT 26.3 PTT Ratio 1.0 Sodium Potassium Chloride Carbon Dioxide Anion Gap BUN Creatinine Est Cr Clr Drug Dosing Est GFR ( Amer) Est GFR (Non-Af Amer) BUN/Creatinine Ratio Glucose POC Glucose 327 H* Estimat Average Glucose Hemoglobin A1c Calcium Magnesium Total Bilirubin AST ALT Alkaline Phosphatase Total Creatine Kinase CK-MB (CK-2) CK/CKMB % Calc Troponin I NT-Pro-B Natriuret Pep Total Protein Albumin Globulin Albumin/Globulin Ratio Lipase Specimen Hemolysis Influenza Type A (PCR) Neg for Influ A Influenza Type B (PCR) Neg for Influ B 01/13/20 01/14/20 01/14/20 23:54 05:55 05:55 WBC RBC Hgb Hct MCV MCH MCHC RDW Std Deviation RDW Coeff of Rolan Plt Count MPV Immature Gran % (Auto) Neut % (Auto) Lymph % (Auto) [place] % (Auto) Eos % (Auto) Baso % (Auto) Immature Gran # (Auto) Neut # (Auto) Lymph # (Auto) [place] # (Auto) Eos # (Auto) Baso # (Auto) PT INR APTT 25.8 PTT Ratio 1.0 Sodium 138 Potassium 4.6 Chloride 105 Carbon Dioxide 24 Anion Gap 9.0 BUN 25 H Creatinine 1.35 H Est Cr Clr Drug Dosing 38.2 Est GFR ( Amer) 49.0 Est GFR (Non-Af Amer) 42.3 BUN/Creatinine Ratio 18.7 Glucose 263 H POC Glucose Estimat Average Glucose Hemoglobin A1c Calcium 9.3 Magnesium 2.2 Total Bilirubin AST ALT Alkaline Phosphatase Total Creatine Kinase 107 CK-MB (CK-2) 6.4 H 6.7 H CK/CKMB % Calc 6.3 H Troponin I 0.267 H* 0.174 H* NT-Pro-B Natriuret Pep Total Protein Albumin Globulin Albumin/Globulin Ratio Lipase Specimen Hemolysis Influenza Type A (PCR) Influenza Type B (PCR) 01/14/20 01/14/20 01/14/20 05:55 05:55 05:56 WBC 12.47 H RBC 4.94 Hgb 13.9 Hct 42.7 MCV 86.4 MCH 28.1 MCHC 32.6 RDW Std Deviation 51.3 H RDW Coeff of Rolan 16.2 H Plt Count 271 MPV 8.7 Immature Gran % (Auto) 0.3 Neut % (Auto) 93.5 Lymph % (Auto) 5.5 [place] % (Auto) 0.6 Eos % (Auto) 0.0 Baso % (Auto) 0.1 Immature Gran # (Auto) 0.04 H Neut # (Auto) 11.66 H Lymph # (Auto) 0.68 L [place] # (Auto) 0.08 L Eos # (Auto) 0.00 Baso # (Auto) 0.01 PT INR APTT PTT Ratio Sodium Potassium Chloride Carbon Dioxide Anion Gap BUN Creatinine Est Cr Clr Drug Dosing Est GFR ( Amer) Est GFR (Non-Af Amer) BUN/Creatinine Ratio Glucose POC Glucose 245 H Estimat Average Glucose 151 Hemoglobin A1c 6.9 H Calcium Magnesium Total Bilirubin AST ALT Alkaline Phosphatase Total Creatine Kinase CK-MB (CK-2) CK/CKMB % Calc Troponin I NT-Pro-B Natriuret Pep Total Protein Albumin Globulin Albumin/Globulin Ratio Lipase Specimen Hemolysis Influenza Type A (PCR) Influenza Type B (PCR) 01/14/20 01/14/20 01/14/20 11:43 12:47 12:47 WBC RBC Hgb Hct MCV MCH MCHC RDW Std Deviation RDW Coeff of Rolan Plt Count MPV Immature Gran % (Auto) Neut % (Auto) Lymph % (Auto) [place] % (Auto) Eos % (Auto) Baso % (Auto) Immature Gran # (Auto) Neut # (Auto) Lymph # (Auto) [place] # (Auto) Eos # (Auto) Baso # (Auto) PT INR APTT 36.8 H PTT Ratio 1.4 Sodium Potassium Chloride Carbon Dioxide Anion Gap BUN Creatinine Est Cr Clr Drug Dosing Est GFR ( Amer) Est GFR (Non-Af Amer) BUN/Creatinine Ratio Glucose POC Glucose 211 H Estimat Average Glucose Hemoglobin A1c Calcium Magnesium Total Bilirubin AST ALT Alkaline Phosphatase Total Creatine Kinase CK-MB (CK-2) 6.8 H CK/CKMB % Calc Troponin I 0.179 H* NT-Pro-B Natriuret Pep Total Protein Albumin Globulin Albumin/Globulin Ratio Lipase Specimen Hemolysis Influenza Type A (PCR) Influenza Type B (PCR) 01/14/20 16:03 WBC RBC Hgb Hct MCV MCH MCHC RDW Std Deviation RDW Coeff of Rolan Plt Count MPV Immature Gran % (Auto) Neut % (Auto) Lymph % (Auto) [place] % (Auto) Eos % (Auto) Baso % (Auto) Immature Gran # (Auto) Neut # (Auto) Lymph # (Auto) [place] # (Auto) Eos # (Auto) Baso # (Auto) PT INR APTT PTT Ratio Sodium Potassium Chloride Carbon Dioxide Anion Gap BUN Creatinine Est Cr Clr Drug Dosing Est GFR ( Amer) Est GFR (Non-Af Amer) BUN/Creatinine Ratio Glucose POC Glucose 143 H Estimat Average Glucose Hemoglobin A1c Calcium Magnesium Total Bilirubin AST ALT Alkaline Phosphatase Total Creatine Kinase CK-MB (CK-2) CK/CKMB % Calc Troponin I NT-Pro-B Natriuret Pep Total Protein Albumin Globulin Albumin/Globulin Ratio Lipase Specimen Hemolysis Influenza Type A (PCR) Influenza Type B (PCR) (1) Chest pain Chest pain type: unspecified Qualified Code(s): R07.9 - Chest pain, unspecified
[2020-01-14 13:33] LABS: Partial Thromboplastin Ratio 1.4; Partial Thromboplastin Time 36.8 Seconds (21.0-31.0)
[2020-01-14 13:53] LABS: Creatine Kinase MB 6.8 ng/ml (0.5-3.6); Troponin I 0.179 ng/ml (0-0.045)
[2020-01-14] MEDS ORDERED: Nursing to Pharmacy Communication ONE (14:29)
--- NOTE | 2020-01-14 14:52 | Electrocardiogram Report ---
Test Reason : Blood Pressure : / mmHG Vent. Rate : 069 BPM Atrial Rate : 069 BPM P-R Int : 184 ms QRS Dur : 096 ms QT Int : 406 ms P-R-T Axes : 020 -02 102 degrees QTc Int : 435 ms Poor data quality, interpretation may be adversely affected Normal sinus rhythm Left ventricular hypertrophy with repolarization abnormality Abnormal ECG When compared with ECG of 20-OCT-2019 19:49, No significant change was found Confirmed by Oleksandr Gann ([id number]) on 01/14/2020 2:52:10 PM Referred By: REFERRED SELF Confirmed By:Lavelle Gann
--- NOTE | 2020-01-14 14:57 | Electrocardiogram Report ---
Test Reason : Blood Pressure : / mmHG Vent. Rate : 079 BPM Atrial Rate : 079 BPM P-R Int : 192 ms QRS Dur : 098 ms QT Int : 416 ms P-R-T Axes : 030 -05 104 degrees QTc Int : 477 ms Normal sinus rhythm Left ventricular hypertrophy with repolarization abnormality Abnormal ECG When compared with ECG of 13-JAN-2020 19:17, (unconfirmed) No significant change was found Confirmed by Oleksandr Gann ([id number]) on 01/14/2020 2:56:50 PM Referred By: REFERRED SELF Confirmed By:Lavelle Gann
--- NOTE | 2020-01-14 16:51 | Cardiology Consultation ---
Date of Consultation January 14, 2020 Assessment & Plan (1) Chest pain at rest: Chest pain appears somewhat atypical for angina. Patient has known moderate coronary atherosclerotic disease by cardiac catheterization November 2018. Troponins are chronically elevated and flat by exam today. Symptoms overall appeared improved with treatment underlying pulmonary issues Plan continue outpatient medications. Verapamil held on presentation its being used in combination with metoprolol for hypertrophic cardiomyopathy. Will likely resume in a.m. Continue IV heparin follow clinical course. 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 Aniceto Patterson Attending Physician: Aniceto Patterson MD History of Present Illness Patient is a 59-year-old female well-known to me with ongoing multiple issues which include 1.ApicalHypertrophic nonobstructive cardiomyopathy with markedly reduced LV cavity size. 2.Genetic mutation MBCconsistent with cardiomyopathy. 3.Status post prophylactic pacer defibrillatorAncancotronic, model - Evera MRI XT [id number], dual chamber, September 01, 2015. 4.Labile hypertension. 5.Obesity. 6. Obstructive sleep apnea/hypoventilationwith poor CPAP tolerance on chronic nocturnal oxygen supplementation 7.Chronic diastolic heart failure right greater than left 8. Chronic anxiety 9. Moderate coronary atherosclerosis by cardiac catheterization November 2018 with 40% mid left anterior descending stenosis, 50% origin right coronary ostium Patient presents now just "not feeling as well ". Notes having had a recent respiratory infection approximately 2 weeks ago and feeling fatigued since then has chronic dyspnea and cough. Has been experiencing sharp jabbing right sided shoulder and left arm pain at rest not specifically exacerbated by exertion or activity. No tachypalpitations, syncope or near syncope. No bleeding difficulties. No melena medication dysuria hematuria. No signs of recent volume overload and patient well compensated over the past 6 to 12 months time. Appetite and weight have been stable. No acute weight gain or loss. Patient currently comfortable anticoagulated with IV heparin. Patient has chronic troponin elevation without acute evolution. Echocardiogram today unchanged Allergies Allergy/AdvReac Type Severity Reaction Status Date / Time Penicillins Allergy Intermediate Flushing, Verified 10/20/19 20:34 Itchiness Sulfa (Sulfonamide Allergy Intermediate Swelling Verified 10/20/19 20:34 Antibiotics) doxycycline Allergy Unknown Unknown Verified 10/20/19 20:34 adhesive AdvReac Intermediate Blistering Verified 10/20/19 20:34 Home Medications Home Medications Medication Instructions Recorded Confirmed Type duloxetine 60 mg PO QAM 08/09/18 01/13/20 History folic acid 1 mg PO HS 08/09/18 01/13/20 History omeprazole 40 mg PO QAM 08/09/18 01/13/20 History sumatriptan succinate 50 mg PO DIRECTED PRN 08/09/18 01/13/20 History metformin 1,000 mg PO BIDM 08/12/18 01/13/20 History albuterol sulfate 3 ml INHALATION Q4H PRN 09/09/18 01/13/20 History diphenoxylate-atropine [Lomotil] 1 tab PO QID PRN 12/19/18 01/13/20 History atorvastatin 40 mg PO QAM #30 tab 02/19/19 01/13/20 Rx aspirin [Ecotrin Low Strength] 81 mg PO QAM 04/12/19 01/13/20 History Humalog Mix 75-25 KwikPen 25 unit SUBCUT QDD 06/30/19 01/13/20 History Humalog Mix 75-25 KwikPen 55 unit SUBCUT QAM 06/30/19 01/13/20 History Tradjenta 5 mg PO QAM 06/30/19 01/13/20 History albuterol sulfate [Ventolin HFA] 2 puff INHALATION Q4H PRN 06/30/19 01/13/20 History duloxetine 30 mg PO QAM 06/30/19 01/13/20 History fluticasone propion-salmeterol 1 inh INHALATION Q12H 06/30/19 01/13/20 History [Advair Diskus] gabapentin 300 mg PO TID 06/30/19 01/13/20 History nitroglycerin [Nitrostat] 0.4 mg SUBLINGUAL DIRECTED PRN 06/30/19 01/13/20 History ondansetron 4 mg PO Q8H PRN 06/30/19 01/13/20 History spironolactone [Aldactone] 25 mg PO QAM 06/30/19 01/13/20 History metoprolol succinate 100 mg PO BID 09/25/19 01/13/20 History mirtazapine 45 mg PO HS 09/25/19 01/13/20 History ropinirole 0.5 mg PO HS 09/25/19 01/13/20 History famotidine 20 mg PO BID #20 tab 10/20/19 01/13/20 Rx budesonide 0.5 mg INHALATION BID 01/13/20 01/13/20 History torsemide 10 mg PO DAILY 01/13/20 01/13/20 History verapamil 40 mg PO QID 01/13/20 01/13/20 History Patient History Medical History Anxiety (Chronic) Arthritis (Chronic) Asthma (Chronic) Cardiac defibrillator in place (Chronic) 2014 CHF (congestive heart failure) CKD (chronic kidney disease), stage III (Chronic) COPD (chronic obstructive pulmonary disease) (Chronic) Depression (Chronic) Depression with anxiety (Chronic) Diabetes mellitus, type 2 (Chronic) Elevated troponin (Chronic) Elevated troponin (Chronic) Fatty (change of) liver, not elsewhere classified (Chronic) GERD (gastroesophageal reflux disease) (Chronic) HLD (hyperlipidemia) (Chronic) Hydronephrosis of right kidney (Chronic) Hypertension (Chronic) Hypertrophic cardiomyopathy (Chronic) CADENCE (obstructive sleep apnea) (Chronic) on nocturnal O2 2L Pancreatic cyst (Chronic) Restless leg syndrome (Chronic) Surgical History H/O section (Resolved) 1979 & 1982 H/O hernia repair (Resolved) 2016 History of appendectomy (Resolved) 1970s History of colostomy reversal (Resolved) bowel perf 2014 with colostomy reversed in 2014 Status post internal cardiac defibrillator procedure (Chronic) "2015" Status post partial resection of colon (Chronic) "diverticulitis 11/05/14" Family History Other Hypertrophic cardiomyopathy Stomach cancer Thyroid disorder Social History Preferred Language: Ukrainian Communication Ability: Effective Energy Engineer Required: No Beliefs That Will Affect Care: None marital status: Current Living Situation: Spouse 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 Other Information That Helps Us Care for You: No Feels Safe at Home: Yes Safety Concerns: Feels Safe At This Time Smoking Status: Never smoker Second Hand Exposure: No ; Hx Alcohol Use: No Hx Substance Use: No Physical Exam Constitutional: Age-appropriate female very short in stature, moderately obese in no acute distress Eyes: PERRL, conjunctivae normal, anicteric sclerae ENMT: external ear and nose normal, oropharynx normal Neck: trachea midline, no thyromegaly Respiratory: normal respiratory effort, lungs clear to auscultation Minimal wheeze at forced cough on the left base Cardiovascular: Rate/Rhythm: regular rate and regular rhythm Heart Sounds: normal S1, normal S2 and + murmur (Grade 1- 6 systolic); no gallop Palpation: normal PMI Vessels: normal carotid upstroke and radial pulses present; no JVD and no carotid bruit Extremities: no edema Gastrointestinal (Abdomen): normal bowel sounds, soft, nontender, no hepatosplenomegaly Musculoskeletal: no cyanosis or clubbing, extremities motor strength 5/5 Skin: no rashes, warm and dry Neurologic: PERRL, EOMI, accommodation nl, no face palsy, no dysarthria Psychiatric: A+Ox3, euthymic affect Results & Data ([facility]) Vital Signs (Past 12 Hours) Vital Signs Temp Pulse Pulse Resp BP Pulse Ox 01/14/20 16:00 37.0 C 69 18 115/63 96 01/14/20 15:00 75 01/14/20 10:42 36.6 C 77 19 107/71 97 01/14/20 08:00 85 01/14/20 07:44 77 18 96 01/14/20 07:04 36.4 C L 73 22 123/78 100 Laboratory Results Laboratory Results - last 24 hr 01/13/20 01/13/20 01/13/20 19:35 19:35 19:35 WBC 13.22 H RBC 4.71 Hgb 13.1 Hct 40.6 MCV 86.2 MCH 27.8 MCHC 32.3 RDW Std Deviation 51.2 H RDW Coeff of Rolan 16.3 H Plt Count 262 MPV 8.9 Immature Gran % (Auto) 0.3 Neut % (Auto) 78.6 Lymph % (Auto) 13.9 [place] % (Auto) 6.1 Eos % (Auto) 0.9 Baso % (Auto) 0.2 Immature Gran # (Auto) 0.04 H Neut # (Auto) 10.40 H Lymph # (Auto) 1.84 [place] # (Auto) 0.80 H Eos # (Auto) 0.12 Baso # (Auto) 0.02 PT Cancelled INR Cancelled APTT Cancelled PTT Ratio Cancelled Sodium 140 Potassium 4.7 Chloride 105 Carbon Dioxide 29 Anion Gap 6.0 BUN 24 H Creatinine 1.32 H Est Cr Clr Drug Dosing Not Reportable Est GFR ( Amer) 50.3 Est GFR (Non-Af Amer) 43.4 BUN/Creatinine Ratio 18.0 Glucose 103 H POC Glucose Estimat Average Glucose Hemoglobin A1c Calcium 9.3 Magnesium Total Bilirubin 0.2 AST 22 ALT 25 Alkaline Phosphatase 156 H Total Creatine Kinase 118 CK-MB (CK-2) 6.0 H CK/CKMB % Calc 5.1 H Troponin I 0.300 H* NT-Pro-B Natriuret Pep 3582 H Total Protein 8.0 Albumin 3.7 Globulin 4.3 H Albumin/Globulin Ratio 0.9 Lipase 201 Specimen Hemolysis Influenza Type A (PCR) Influenza Type B (PCR) 01/13/20 01/13/20 01/13/20 20:50 22:00 23:37 WBC RBC Hgb Hct MCV MCH MCHC RDW Std Deviation RDW Coeff of Rolan Plt Count MPV Immature Gran % (Auto) Neut % (Auto) Lymph % (Auto) [place] % (Auto) Eos % (Auto) Baso % (Auto) Immature Gran # (Auto) Neut # (Auto) Lymph # (Auto) [place] # (Auto) Eos # (Auto) Baso # (Auto) PT 10.6 INR 1.0 APTT 26.3 PTT Ratio 1.0 Sodium Potassium Chloride Carbon Dioxide Anion Gap BUN Creatinine Est Cr Clr Drug Dosing Est GFR ( Amer) Est GFR (Non-Af Amer) BUN/Creatinine Ratio Glucose POC Glucose 327 H* Estimat Average Glucose Hemoglobin A1c Calcium Magnesium Total Bilirubin AST ALT Alkaline Phosphatase Total Creatine Kinase CK-MB (CK-2) CK/CKMB % Calc Troponin I NT-Pro-B Natriuret Pep Total Protein Albumin Globulin Albumin/Globulin Ratio Lipase Specimen Hemolysis Influenza Type A (PCR) Neg for Influ A Influenza Type B (PCR) Neg for Influ B 01/13/20 01/14/2020 23:54 05:55 05:55 WBC RBC Hgb Hct MCV MCH MCHC RDW Std Deviation RDW Coeff of Rolan Plt Count MPV Immature Gran % (Auto) Neut % (Auto) Lymph % (Auto) [place] % (Auto) Eos % (Auto) Baso % (Auto) Immature Gran # (Auto) Neut # (Auto) Lymph # (Auto) [place] # (Auto) Eos # (Auto) Baso # (Auto) PT INR APTT 25.8 PTT Ratio 1.0 Sodium 138 Potassium 4.6 Chloride 105 Carbon Dioxide 24 Anion Gap 9.0 BUN 25 H Creatinine 1.35 H Est Cr Clr Drug Dosing 38.2 Est GFR ( Amer) 49.0 Est GFR (Non-Af Amer) 42.3 BUN/Creatinine Ratio 18.7 Glucose 263 H POC Glucose Estimat Average Glucose Hemoglobin A1c Calcium 9.3 Magnesium 2.2 Total Bilirubin AST ALT Alkaline Phosphatase Total Creatine Kinase 107 CK-MB (CK-2) 6.4 H 6.7 H CK/CKMB % Calc 6.3 H Troponin I 0.267 H* 0.174 H* NT-Pro-B Natriuret Pep Total Protein Albumin Globulin Albumin/Globulin Ratio Lipase Specimen Hemolysis Influenza Type A (PCR) Influenza Type B (PCR) 01/14/20 01/14/20 01/14/20 05:55 05:55 05:56 WBC 12.47 H RBC 4.94 Hgb 13.9 Hct 42.7 MCV 86.4 MCH 28.1 MCHC 32.6 RDW Std Deviation 51.3 H RDW Coeff of Rolan 16.2 H Plt Count 271 MPV 8.7 Immature Gran % (Auto) 0.3 Neut % (Auto) 93.5 Lymph % (Auto) 5.5 [place] % (Auto) 0.6 Eos % (Auto) 0.0 Baso % (Auto) 0.1 Immature Gran # (Auto) 0.04 H Neut # (Auto) 11.66 H Lymph # (Auto) 0.68 L [place] # (Auto) 0.08 L Eos # (Auto) 0.00 Baso # (Auto) 0.01 PT INR APTT PTT Ratio Sodium Potassium Chloride Carbon Dioxide Anion Gap BUN Creatinine Est Cr Clr Drug Dosing Est GFR ( Amer) Est GFR (Non-Af Amer) BUN/Creatinine Ratio Glucose POC Glucose 245 H Estimat Average Glucose 151 Hemoglobin A1c 6.9 H Calcium Magnesium Total Bilirubin AST ALT Alkaline Phosphatase Total Creatine Kinase CK-MB (CK-2) CK/CKMB % Calc Troponin I NT-Pro-B Natriuret Pep Total Protein Albumin Globulin Albumin/Globulin Ratio Lipase Specimen Hemolysis Influenza Type A (PCR) Influenza Type B (PCR) 01/14/20 01/14/20 01/14/20 11:43 12:47 12:47 WBC RBC Hgb Hct MCV MCH MCHC RDW Std Deviation RDW Coeff of Rolan Plt Count MPV Immature Gran % (Auto) Neut % (Auto) Lymph % (Auto) [place] % (Auto) Eos % (Auto) Baso % (Auto) Immature Gran # (Auto) Neut # (Auto) Lymph # (Auto) [place] # (Auto) Eos # (Auto) Baso # (Auto) PT INR APTT 36.8 H PTT Ratio 1.4 Sodium Potassium Chloride Carbon Dioxide Anion Gap BUN Creatinine Est Cr Clr Drug Dosing Est GFR ( Amer) Est GFR (Non-Af Amer) BUN/Creatinine Ratio Glucose POC Glucose 211 H Estimat Average Glucose Hemoglobin A1c Calcium Magnesium Total Bilirubin AST ALT Alkaline Phosphatase Total Creatine Kinase CK-MB (CK-2) 6.8 H CK/CKMB % Calc Troponin I 0.179 H* NT-Pro-B Natriuret Pep Total Protein Albumin Globulin Albumin/Globulin Ratio Lipase Specimen Hemolysis Influenza Type A (PCR) Influenza Type B (PCR) 01/14/20 16:03 WBC RBC Hgb Hct MCV MCH MCHC RDW Std Deviation RDW Coeff of Rolan Plt Count MPV Immature Gran % (Auto) Neut % (Auto) Lymph % (Auto) [place] % (Auto) Eos % (Auto) Baso % (Auto) Immature Gran # (Auto) Neut # (Auto) Lymph # (Auto) [place] # (Auto) Eos # (Auto) Baso # (Auto) PT INR APTT PTT Ratio Sodium Potassium Chloride Carbon Dioxide Anion Gap BUN Creatinine Est Cr Clr Drug Dosing Est GFR ( Amer) Est GFR (Non-Af Amer) BUN/Creatinine Ratio Glucose POC Glucose 143 H Estimat Average Glucose Hemoglobin A1c Calcium Magnesium Total Bilirubin AST ALT Alkaline Phosphatase Total Creatine Kinase CK-MB (CK-2) CK/CKMB % Calc Troponin I NT-Pro-B Natriuret Pep Total Protein Albumin Globulin Albumin/Globulin Ratio Lipase Specimen Hemolysis Influenza Type A (PCR) Influenza Type B (PCR)
--- NOTE | 2020-01-14 17:48 | Emergency Department Note ---
Entered by Carla Pérez acting as a scribe for History of Present Illness General Chief complaint: Shortness of Breath/Dyspnea Stated complaint: SOB, CHEST PAIN Time Seen by Provider: 01/13/20 18:48 Source: patient History of Present Illness Onset (ago): day(s) (last night) Location: chest Radiation: extremity (left upper) Maximum Pain Intensity: 6 Quality: + other (chest pain) Associated symptoms: + other (Positive increased swelling to her bilateral ankles. Negative taking plavix) The patient is a 59 year old female who presents to the ED with complaints of chest pain. She notes since last night, she has had chest pain with radiation down her left arm. She states her defibrillator went off, so she took a nitroglycerin pill. She states the nitro did not completely resolve her pain an she has SOB. Pt notes she has increased swelling to her bilateral ankles but d enies being on plavix. Home Medications Home Medications Medication Instructions Recorded Confirmed Type duloxetine 60 mg PO QAM 08/09/18 01/13/20 History folic acid 1 mg PO HS 08/09/18 01/13/20 History omeprazole 40 mg PO QAM 08/09/18 01/13/20 History sumatriptan succinate 50 mg PO DIRECTED PRN 08/09/18 01/13/20 History metformin 1,000 mg PO BIDM 08/12/18 01/13/20 History albuterol sulfate 3 ml INHALATION Q4H PRN 09/09/18 01/13/20 History diphenoxylate-atropine [Lomotil] 1 tab PO QID PRN 12/19/18 01/13/20 History atorvastatin 40 mg PO QAM #30 tab 02/19/19 01/13/20 Rx aspirin [Ecotrin Low Strength] 81 mg PO QAM 04/12/19 01/13/20 History Humalog Mix 75-25 KwikPen 25 unit SUBCUT QDD 06/30/19 01/13/20 History Humalog Mix 75-25 KwikPen 55 unit SUBCUT QAM 06/30/19 01/13/20 History Tradjenta 5 mg PO QAM 06/30/19 01/13/20 History albuterol sulfate [Ventolin HFA] 2 puff INHALATION Q4H PRN 06/30/19 01/13/20 History duloxetine 30 mg PO QAM 06/30/19 01/13/20 History fluticasone propion-salmeterol 1 inh INHALATION Q12H 06/30/19 01/13/20 History [Advair Diskus] gabapentin 300 mg PO TID 06/30/19 01/13/20 History nitroglycerin [Nitrostat] 0.4 mg SUBLINGUAL DIRECTED PRN 06/30/19 01/13/20 History ondansetron 4 mg PO Q8H PRN 06/30/19 01/13/20 History spironolactone [Aldactone] 25 mg PO QAM 06/30/19 01/13/20 History metoprolol succinate 100 mg PO BID 09/25/19 01/13/20 History mirtazapine 45 mg PO HS 09/25/19 01/13/20 History ropinirole 0.5 mg PO HS 09/25/19 01/13/20 History famotidine 20 mg PO BID #20 tab 10/20/19 01/13/20 Rx budesonide 0.5 mg INHALATION BID 01/13/20 01/13/20 History torsemide 10 mg PO DAILY 01/13/20 01/13/20 History verapamil 40 mg PO QID 01/13/20 01/13/20 History Allergies Allergy/AdvReac Type Severity Reaction Status Date / Time Penicillins Allergy Intermediate Flushing, Verified 10/20/19 20:34 Itchiness Sulfa (Sulfonamide Allergy Intermediate Swelling Verified 10/20/19 20:34 Antibiotics) doxycycline Allergy Unknown Unknown Verified 10/20/19 20:34 adhesive AdvReac Intermediate Blistering Verified 10/20/19 20:34 Past Med/Surg History Medical History Anxiety (Chronic) Arthritis (Chronic) Asthma (Chronic) Cardiac defibrillator in place (Chronic) 2014 CHF (congestive heart failure) CKD (chronic kidney disease), stage III (Chronic) COPD (chronic obstructive pulmonary disease) (Chronic) Depression (Chronic) Depression with anxiety (Chronic) Diabetes mellitus, type 2 (Chronic) Elevated troponin (Chronic) Elevated troponin (Chronic) Fatty (change of) liver, not elsewhere classified (Chronic) GERD (gastroesophageal reflux disease) (Chronic) HLD (hyperlipidemia) (Chronic) Hydronephrosis of right kidney (Chronic) Hypertension (Chronic) Hypertrophic cardiomyopathy (Chronic) CADENCE (obstructive sleep apnea) (Chronic) on nocturnal O2 2L Pancreatic cyst (Chronic) Restless leg syndrome (Chronic) Surgical History H/O section (Resolved) 1979 & 1982 H/O hernia repair (Resolved) 2016 History of appendectomy (Resolved) 1970s History of colostomy reversal (Resolved) bowel perf 2013 with colostomy reversed in 2014 Status post internal cardiac defibrillator procedure (Chronic) "2015" Status post partial resection of colon (Chronic) "diverticulitis 11/05/14" Family History Other Hypertrophic cardiomyopathy Stomach cancer Thyroid disorder Social History Preferred Language: Serbian Communication Ability: Effective Implementation Manager Required: No Beliefs That Will Affect Care: None marital status: Current Living Situation: Spouse 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 and A total of 10 systems reviewed and were otherwise negative Physical Exam Vital Signs Vital Signs - 24 hr 01/13/20 18:19 01/13/20 18:23 01/13/20 20:27 Temperature 37.3 C Temperature Source Oral Pulse Rate 68 69 Pulse Rate [Right Finger] Pulse Rate from SpO2 Sensor 69 Respiratory Rate 20 17 Respiratory Effort / Characteristics Non-Labored Spontaneous Non-Labored Spontaneous Respiratory Depth Normal Normal Respiratory Pattern Regular Blood Pressure 138/83 118/60 Blood Pressure Mean 101 77 Blood Pressure Position Sitting Pulse Oximetry 100 97 99 Oxygen Delivery Method Nasal Cannula Nasal Cannula Oxygen Flow Rate 2.5 2 Sepsis Recent Fever Within 48 Hours No Sepsis New/Unexplained Change in Mental Status No Sepsis Action Taken by Nursing No Action Required 01/13/20 20:51 01/13/20 21:00 01/13/20 21:01 Temperature Temperature Source Pulse Rate 68 71 70 Pulse Rate [Right Finger] Pulse Rate from SpO2 Sensor 69 73 73 Respiratory Rate 21 23 21 Respiratory Effort / Characteristics Respiratory Depth Respiratory Pattern Blood Pressure 112/66 Blood Pressure Mean 83 Blood Pressure Position Pulse Oximetry 99 Oxygen Delivery Method Oxygen Flow Rate Sepsis Recent Fever Within 48 Hours Sepsis New/Unexplained Change in Mental Status Sepsis Action Taken by Nursing 01/13/20 21:05 Temperature Temperature Source Pulse Rate Pulse Rate [Right Finger] 66 Pulse Rate from SpO2 Sensor Respiratory Rate 16 Respiratory Effort / Characteristics Non-Labored Spontaneous Respiratory Depth Respiratory Pattern Blood Pressure Blood Pressure Mean Blood Pressure Position Pulse Oximetry 97 Oxygen Delivery Method Nasal Cannula Oxygen Flow Rate 3 Sepsis Recent Fever Within 48 Hours Sepsis New/Unexplained Change in Mental Status Sepsis Action Taken by Nursing GENERAL: Awake, alert, well-appearing, in no acute distress HENT: Normocephalic, atraumatic. Oropharynx unremarkable. EYES: Normal conjunctiva. Sclera non-icteric. NECK: Supple. No nuchal rigidity. FROM. No JVD. RESPIRATORY: Clear to auscultation. CARDIAC: Regular rate, normal rhythm. Extremities warm and well perfused. Pulses equal. ABDOMEN: Soft, non-distended. No tenderness to palpation. No rebound or guarding. No masses. RECTAL: Deferred. MUSCULOSKELETAL: Chest examination reveals no tenderness. The back is symmetrical on inspection without obvious abnormality. There is no CVA tenderness to palpation. No joint edema. LOWER EXTREMITIES: Calves are equal size bilaterally and non-tender. No edema. No discoloration. NEURO: Normal sensorium. No sensory or motor deficits noted. SKIN: No rash or jaundice noted. Course Course 1855: Past medical records reviewed. The patient was evaluated in room C12. A complete history and physical exam was performed. Administered Medications Albuterol (Ventolin Hfa) 2 puffs INH Q4H PRN PRN Reason: Wheezing Stop: 02/12/20 22:29 Last Admin: 01/14/20 09:14 Dose: 2 puffs Documented by: [id number] Albuterol (Ventolin 0.083% 2.5mg/3ml) 2.5 mg INH Q4H PRN PRN Reason: Wheezing Stop: 02/12/20 22:29 Last Admin: 01/14/20 07:43 Dose: 2.5 mg Documented by: [id number] Aspirin (Ecotrin Ectab) 81 mg PO [facility] Stop: 02/13/20 08:59 Last Admin: 01/14/20 09:14 Dose: 81 mg Documented by: [id number] Atorvastatin Calcium (Lipitor) 40 mg PO [facility] Stop: 02/13/20 08:59 Last Admin: 01/14/20 09:14 Dose: 40 mg Documented by: [id number] Budesonide (Pulmicort Respules) 0.5 mg INH BIDR [facility] Stop: 02/13/20 06:59 Last Admin: 01/14/20 07:43 Dose: 0.5 mg Documented by: [id number] Cefdinir (Omnicef Cap) 300 mg PO BID [facility] Stop: 01/21/20 08:59 Last Admin: 01/14/20 10:04 Dose: 300 mg Documented by: [id number] Duloxetine HCl (Cymbalta) 90 mg PO QAM [facility] Stop: 02/13/20 08:59 Last Admin: 01/14/20 09:17 Dose: 90 mg Documented by: [id number] Famotidine (Pepcid) 20 mg PO BID [facility] Stop: 02/13/20 08:59 Last Admin: 01/14/20 09:14 Dose: 20 mg Documented by: [id number] Fluticasone/Vilanterol (Breo Ellipta 200/25 Mcg Inh) 1 puffs INH DAILY [facility] Stop: 02/13/20 08:59 Last Admin: 01/14/20 09:14 Dose: 1 puffs Documented by: [id number] Gabapentin (Neurontin) 300 mg PO TID [facility] Stop: 02/13/20 08:59 Last Admin: 01/14/20 14:32 Dose: 300 mg Documented by: [id number] Admin: 01/14/20 09:14 Dose: 300 mg Documented by: [id number] Heparin Sodium/Dextrose (Heparin Sodium/Dextrose) 25,000 units in 500 mls @ 18 mls/hr IV .Q24H [facility]; Protocol Stop: 02/12/20 22:29 Last Titration: 01/14/20 14:27 Dose: 900 units/hr, 18 mls/hr Documented by: [id number] Cosigned by: [id number] Titration: 01/14/20 07:03 Dose: 800 units/hr, 16 mls/hr Documented by: [id number] Cosigned by: [id number] Titration: 01/14/20 06:22 Dose: 800 units/hr, 16 mls/hr Documented by: [id number] Cosigned by: [id number] Admin: 01/13/20 23:19 Dose: 700 units/hr, 14 mls/hr Documented by: [id number] Cosigned by: [id number] Insulin Aspart (Novolog Flexpen) 0 units SC ACHS [facility] Stop: 02/13/20 07:29 Last Admin: 01/14/20 12:05 Dose: 4 units Documented by: [id number] Cosigned by: [id number] Admin: 01/14/20 06:05 Dose: 6 units Documented by: [id number] Cosigned by: [id number] Insulin Glargine (Lantus Solostar Pen) 10 units SC BID [facility] Stop: 02/12/20 22:29 Last Admin: 01/14/20 09:16 Dose: 10 units Documented by: [id number] Cosigned by: [id number] Admin: 01/13/20 23:41 Dose: 10 units Documented by: [id number] Cosigned by: [id number] Metoprolol Succinate (Toprol Xl) 100 mg PO BID [facility] Stop: 02/12/20 22:29 Last Admin: 01/14/20 09:25 Dose: 100 mg Documented by: [id number] Admin: 01/13/20 23:41 Dose: 100 mg Documented by: [id number] Pantoprazole Sodium (Protonix) 40 mg PO [facility] Stop: 02/13/20 08:59 Last Admin: 01/14/20 09:14 Dose: 40 mg Documented by: [id number] Spironolactone (Aldactone) 25 mg PO [facility] Stop: 02/13/20 08:59 Last Admin: 01/14/20 09:14 Dose: 25 mg Documented by: [id number] Discontinued Medications Heparin Sodium/Dextrose () 1 ea IV ONE ONE; Protocol Stop: 01/13/20 22:31 Last Admin: 01/13/20 23:20 Dose: 1 ea Documented by: [id number] Ceftriaxone Sodium (Rocephin) 2,000 mg in 70 mls @ 140 mls/hr IV NOW STA Stop: 01/13/20 21:19 Last Infusion: 01/13/20 21:46 Dose: 0 mls/hr Documented by: [id number] Admin: 01/13/20 20:59 Dose: 140 mls/hr Documented by: [id number] Acetaminophen (Ofirmev) 1,000 mg in 100 mls @ 400 mls/hr IV NOW STA Stop: 01/13/20 21:04 Last Infusion: 01/13/20 21:24 Dose: 0 mls/hr Documented by: [id number] Admin: 01/13/20 20:58 Dose: 400 mls/hr Documented by: [id number] Heparin Sodium (Porcine) 4,000 (units/ Syringe) 4 mls @ 10 mls/min IV ONE ONE Stop: 01/14/20 06:31 Last Admin: 01/14/20 06:40 Dose: 10 mls/min Documented by: [id number] Cosigned by: [id number] Heparin Sodium (Porcine) 4,000 (units/ Syringe) 4 mls @ 10 mls/min IV NOW ONE Stop: 01/14/20 14:46 Last Admin: 01/14/20 14:56 Dose: 10 mls/min Documented by: [id number] Cosigned by: [id number] Levalbuterol HCl (Xopenex 1.25mg/3ml Neb) 1.25 mg NEB NOW STA Stop: 01/13/20 20:34 Last Admin: 01/13/20 21:04 Dose: 1.25 mg Documented by: [id number] Methylprednisolone (Solumedrol) 60 mg IV NOW STA Stop: 01/13/20 20:34 Last Admin: 01/13/20 20:59 Dose: 60 mg Documented by: [id number] Miscellaneous Information (Nursing To Pharmacy Communication) 1 ea N/A ONE ONE Stop: 01/14/20 14:30 Last Admin: 01/14/20 14:32 Dose: Not Given Documented by: [id number] Nitroglycerin (Nitrostat) 0.4 mg SL NOW STA Stop: 01/13/20 19:02 Last Admin: 01/13/20 20:25 Dose: 0.4 mg Documented by: [id number] Medical Decision Making Differential Diagnosis Differential diagnosis: Etiologies such as cardiac ischemia, aortic dissection, pulmonary embolism, pneumonia, pneumothorax, musculoskeletal, infections, pericarditis, myocarditis, esophageal rupture, gastrointestinal, as well as others were entertained. Medical Records Attestation: I reviewed the patient's medical records. Home Medications Current Medication List: was personally reviewed by me Laboratory Data Attestation: I reviewed the patient's lab results. Result diagrams: 01/14/20 05:55 01/14/20 05:55 Lab Results 01/13/20 01/13/20 01/13/20 Range/Units 19:35 19:35 19:35 WBC 13.22 H (4.8-10.8) K/uL RBC 4.71 (4.2-5.4) M/uL Hgb 13.1 (12.0-16.0) g/dL Hct 40.6 (37-47) % MCV 86.2 (80-100) fL MCH 27.8 (25-34) pg MCHC 32.3 (32-36) g/dL RDW Std Deviation 51.2 H (36.4-46.3) fL RDW Coeff of Rolan 16.3 H (11.5-14.5) % Plt Count 262 (130-400) K/uL MPV 8.9 (7.4-10.4) fL Immature Gran % (Auto) 0.3 % Neut % (Auto) 78.6 % Lymph % (Auto) 13.9 % [place] % (Auto) 6.1 % Eos % (Auto) 0.9 % Baso % (Auto) 0.2 % Immature Gran # (Auto) 0.04 H (0.00-0.02) K/uL Neut # (Auto) 10.40 H (1.4-6.5) K/uL Lymph # (Auto) 1.84 (1.2-3.4) K/uL [place] # (Auto) 0.80 H (0.11-0.59) K/uL Eos # (Auto) 0.12 (0-0.5) K/uL Baso # (Auto) 0.02 (0-0.2) K/uL PT Cancelled INR Cancelled APTT Cancelled PTT Ratio Cancelled Sodium 140 (136-145) mmol/L Potassium 4.7 (3.5-5.1) mmol/L Chloride 105 (98-107) mmol/L Carbon Dioxide 29 (21-32) mmol/L Anion Gap 6.0 (3-11) BUN 24 H (7-18) mg/dl Creatinine 1.32 H (0.6-1.2) mg/dl Est Cr Clr Drug Dosing Not Reportable Est GFR ( Amer) 50.3 Est GFR (Non-Af Amer) 43.4 BUN/Creatinine Ratio 18.0 (10-20) Glucose 103 H (70-99) mg/dl Calcium 9.3 (8.5-10.1) mg/dl Total Bilirubin 0.2 (0.2-1) mg/dl AST 22 (15-37) U/L ALT 25 (12-78) U/L Alkaline Phosphatase 156 H (45-117) U/L Total Creatine Kinase 118 (26-192) U/L CK-MB (CK-2) 6.0 H (0.5-3.6) ng/ml CK/CKMB % Calc 5.1 H (0-3.0) Troponin I 0.300 H* (0-0.045) ng/ml NT-Pro-B Natriuret Pep 3582 H (0-900) pg/ml Total Protein 8.0 (6.4-8.2) gm/dl Albumin 3.7 (3.4-5.0) gm/dl Globulin 4.3 H (2.5-4.0) gm/dl Albumin/Globulin Ratio 0.9 (0.9-2) Lipase 201 (73-393) U/L Specimen Hemolysis Influenza Type A (PCR) (Neg) Influenza Type B (PCR) (Neg) 01/13/20 Range/Units 20:50 WBC (4.8-10.8) K/uL RBC (4.2-5.4) M/uL Hgb (12.0-16.0) g/dL Hct (37-47) % MCV (80-100) fL MCH (25-34) pg MCHC (32-36) g/dL RDW Std Deviation (36.4-46.3) fL RDW Coeff of Rolan (11.5-14.5) % Plt Count (130-400) K/uL MPV (7.4-10.4) fL Immature Gran % (Auto) % Neut % (Auto) % Lymph % (Auto) % [place] % (Auto) % Eos % (Auto) % Baso % (Auto) % Immature Gran # (Auto) (0.00-0.02) K/uL Neut # (Auto) (1.4-6.5) K/uL Lymph # (Auto) (1.2-3.4) K/uL [place] # (Auto) (0.11-0.59) K/uL Eos # (Auto) (0-0.5) K/uL Baso # (Auto) (0-0.2) K/uL PT INR APTT PTT Ratio Sodium (136-145) mmol/L Potassium (3.5-5.1) mmol/L Chloride (98-107) mmol/L Carbon Dioxide (21-32) mmol/L Anion Gap (3-11) BUN (7-18) mg/dl Creatinine (0.6-1.2) mg/dl Est Cr Clr Drug Dosing Est GFR ( Amer) Est GFR (Non-Af Amer) BUN/Creatinine Ratio (10-20) Glucose (70-99) mg/dl Calcium (8.5-10.1) mg/dl Total Bilirubin (0.2-1) mg/dl AST (15-37) U/L ALT (12-78) U/L Alkaline Phosphatase (45-117) U/L Total Creatine Kinase (26-192) U/L CK-MB (CK-2) (0.5-3.6) ng/ml CK/CKMB % Calc (0-3.0) Troponin I (0-0.045) ng/ml NT-Pro-B Natriuret Pep (0-900) pg/ml Total Protein (6.4-8.2) gm/dl Albumin (3.4-5.0) gm/dl Globulin (2.5-4.0) gm/dl Albumin/Globulin Ratio (0.9-2) Lipase (73-393) U/L Specimen Hemolysis Influenza Type A (PCR) Neg for Influ A (Neg) Influenza Type B (PCR) Neg for Influ B (Neg) Imaging Data Radiologist's Impression: Radiology results as stated below per my review and the radiologist's interpretation: ECG Data Attestation: I personally reviewed and interpreted this ECG as follows: Indication: + chest pain Rate (beats per minute): 69 Rhythm: + normal sinus ECG ST segments: no ST depression and no ST elevation Blood Pressure Blood Pressure Findings: Elevated blood pressure MDM Narrative This is a 59-year-old female who presents emergency department complaining of chest pain. Patient's chest pain was relieved by nitro. EKG does not show any acute process however her troponin is elevated. She was given breathing treatments here in the emergency department. Impression & Plan Elevated troponin, Chest pain Discharge Plan Visit Data *Final* Discharge Date/Time: 01/13/20 22:24 Chief Complaint: Shortness of Breath/Dyspnea Stated Complaint: SOB, CHEST PAIN ED Provider: Channing Jennings Discharge Problem: Elevated troponin, Chest pain Patient Disposition: Admitted As Inpatient Discharge Instructions Interventions: ED Discharge Assessment Last Done: 01/13/20 22:24 Discharge Problem: Chest pain Qualifiers: Chest pain type: unspecified Qualified Code(s): R07.9 - Chest pain, unspecified The scribe's documentation has been prepared under my direction and personally reviewed by me in its entirety. I confirm that the note above accurately reflects all work, treatment, procedures, and medical decision making performed by me.
[2020-01-14] MEDS: VERAPAMIL HCL 40 MG TAB PO SCH (20:10)
[2020-01-14] MEDS ORDERED: ROPINIROLE HCL 0.25 MG TABLET PO SCH (21:00)
[2020-01-14] MEDS ORDERED: MIRTAZAPINE SOLTAB 15 MG PO SCH (21:00)
[2020-01-14] MEDS ORDERED: FOLIC ACID 1 MG TAB PO SCH (21:00)
[2020-01-14 21:33] LABS: Partial Thromboplastin Time 54.3 Seconds (21.0-31.0)
[2020-01-14 22:37] LABS: Appearance Urine Clear (Clear); Bilirubin Urine Negative (Negative); Blood Urine Negative (Negative); Color Urine Yellow; Glucose Urine UA Negative (Negative); Ketones Urine Trace (Negative); Leukocyte Esterase Urine Negative (Negative); Nitrite Urine Negative (Negative); Protein Urine Negative (Negative); Specific Gravity Urine 1.022 (1.000-1.030); Urobilinogen Urine Negative (Negative)
[2020-01-15] MEDS: HEPARIN SODIUM/DEXTROSE 25,000 UNITS/500 ML BAG IV SCH (04:31)
[2020-01-15] MEDS: INSULIN ASPART 100 UNITS/ML 3 ML PEN SC SCH ×3 (05:56→17:12)
[2020-01-15] MEDS: BUDESONIDE 0.5 MG/2 ML VIAL (PULMICORT) INH SCH (06:52)
[2020-01-15 07:28] LABS: Partial Thromboplastin Ratio 1.5; Partial Thromboplastin Time 39.5 Seconds (21.0-31.0)
[2020-01-15] MEDS ORDERED: HEPARIN IV BOLUS 4,000 UNITS in SYRINGE 0 ML IV ONE (08:00)
[2020-01-15] MEDS: SPIRONOLACTONE 25 MG TAB PO SCH (08:38)
[2020-01-15] MEDS: FLUTICASONE/VILANTEROL 200/25MCG 14 PUFFS/INHALER INH SCH (08:38)
[2020-01-15] MEDS: INSULIN GLARGINE SOLOSTAR 100 UNITS/ML 3 ML PEN SC SCH (08:38)
[2020-01-15] MEDS: VERAPAMIL HCL 40 MG TAB PO SCH ×2 (08:39→12:26)
[2020-01-15] MEDS: DULOXETINE HCL 30 MG CAP PO SCH (08:39)
[2020-01-15] MEDS: CEFDINIR 300 MG CAP PO SCH (08:39)
[2020-01-15] MEDS: GABAPENTIN 300 MG CAP PO SCH ×2 (08:39→12:27)
[2020-01-15] MEDS: ASPIRIN 81 MG ECTAB PO SCH (08:39)
[2020-01-15] MEDS: FAMOTIDINE 20 MG TAB PO SCH (08:39)
[2020-01-15] MEDS: ATORVASTATIN 40 MG TAB PO SCH (08:39)
[2020-01-15] MEDS: METOPROLOL SUCC 50MG EXT REL TAB PO SCH (08:39)
[2020-01-15] MEDS: PANTOprazole 40 MG TAB PO SCH (08:39)
--- NOTE | 2020-01-15 10:16 | Hospitalist Progress Note ---
Date of Service January 15, 2020 Assessment & Plan (1) Chest pain: ASSESSMENT AND PLAN: This is a 59-year-old female who presents with chest pain, shortness of breath, and sore throat. 1. Chest pain, acute coronary syndrome ruled out Troponins: 0.2, 0.1, 0.1 EKG: No signs of acute ischemia or infarct Echo: Left ventricular wall motion is normal, EF more than 70%, diastolic dysfunction grade 2 Cardiology service consulted, Dr. Bruno Patient placed on heparin for 2 days Chest pain has resolved As per Dr. Bruno, if patient has another episode of anginal type of chest pain, will need a cardiac catheterization at [facility] in [place] 2. History of coronary artery disease, on aspirin, statin, and Toprol-XL. 3. History of sleep apnea, did not tolerate CPAP on oxygen. 4. History of hypertrophic cardiomyopathy, history of diastolic congestive heart failure, status post ICD. -Euvolemic -Continue Demadex and Toprol-XL. and Aldactone. 5. Complaining of sore throat and shortness of breath, more than usual. --Possible component of upper respiratory tract infection --Flu PCR negative --Continue cefdinir x5 more days to complete 7 days total Patient advised to take probiotics x2 weeks 6. Diabetes. --Resume usual insulin regimen at home 7. Chronic kidney disease stage III, presently creatinine of 1.32 --At baseline 8. Depression, continue her home medication of Remeron and Cymbalta. 9. Oral thrush --Nystatin x10 days ordered, follow-up as an outpatient Discharge to home Follow-up with PCP in 1 week Follow-up with mannequin sander and finisher in 3 to 4 weeks Plan of care discussed discussed with patient in detail and at length All questions answered She is understanding, agreeable, comfortable with the plan of care Admission and Anticipated Discharge Date Admission Date: January 13, 2020 Subjective Follow-up for chest pain Seen sitting up in bed, comfortable, not in distress States she feels much better today No chest pain since yesterday afternoon No shortness of breath, cough, dizziness, palpitation Sore throat and right earache also much better No fevers or chills Denies other symptoms Evaluated in the afternoon, patient ambulated in the hallways with no symptoms States she is ready and would like to be discharged today Review of Systems Review of Systems: All systems reviewed & are unremarkable except as noted in HPI & below Physical Exam Physical Exam: General- oriented x 3, not in distress, speaks in sentences with no effort or accessory muscle use Eyes- anicteric Mouth- (+) oral thrush Neck- no JVD Lungs- clear breath sounds bilaterally, no rales/wheezes Heart- normal rate, regular rhythm; no murmurs Abdomen- normal bowel sounds, nondistended, soft, nontender Extremities- no pretibial edema, no calf tenderness Neuro- alert, oriented x 3; no gross focal neurologic deficits Skin- warm & dry Results & Data ([facility]) Vital Signs (Past 12 Hours) Vital Signs Temp Pulse Pulse Resp BP Pulse Ox 01/15/20 07:45 36.5 C 60 16 110/66 96 01/15/20 07:35 60 01/15/20 06:53 70 18 92 01/15/20 03:15 36.5 C 82 20 113/51 L 95 01/15/20 00:25 75 01/14/20 23:12 36.4 C L 78 18 108/69 94 Laboratory Results Laboratory Results - last 24 hr 01/14/20 01/14/20 01/14/20 20:35 20:43 22:00 APTT 54.3 H* PTT Ratio 2.0 POC Glucose 205 H Urine Color Yellow Urine Appearance Clear Urine pH 5.0 Ur Specific [place] 1.022 Urine Protein Negative Urine Glucose (UA) Negative Urine Ketones Trace H Urine Blood Negative Urine Nitrite Negative Urine Bilirubin Negative Urine Urobilinogen Negative Ur Leukocyte Esterase Negative 01/15/20 01/15/20 01/15/20 05:51 06:39 07:28 APTT 39.5 H PTT Ratio 1.5 POC Glucose 195 H 148 H Urine Color Urine Appearance Urine pH Ur Specific [place] Urine Protein Urine Glucose (UA) Urine Ketones Urine Blood Urine Nitrite Urine Bilirubin Urine Urobilinogen Ur Leukocyte Esterase 01/15/20 11:57 APTT PTT Ratio POC Glucose 253 H Urine Color Urine Appearance Urine pH Ur Specific [place] Urine Protein Urine Glucose (UA) Urine Ketones Urine Blood Urine Nitrite Urine Bilirubin Urine Urobilinogen Ur Leukocyte Esterase (1) Chest pain Chest pain type: unspecified Qualified Code(s): R07.9 - Chest pain, unspecified
--- NOTE | 2020-01-15 11:36 | Cardiology Progress Note ---
Date of Service January 15, 2020 Assessment & Plan (1) Chest pain at rest: Chest pain appears somewhat atypical for angina. Patient has known moderate coronary atherosclerotic disease by cardiac catheterization November 2018. Troponins are chronically elevated and flat by exam today. Symptoms overall appeared improved with treatment underlying pulmonary issues Plan continue outpatient medications. Verapamil held on presentation its being used in combination with metoprolol for hypertrophic cardiomyopathy. Now resumed with good tolerance heart rate and blood pressure better controlled Will discontinue heparin ambulate and if stable discharged home. Noted patient of angina would recur would consider repeat heart catheterization though likely at [facility] [place] for formal interrogation of ostial lesion of the right coronary artery. Current presentation is not suggestive of ACS. 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 Feels better this morning. No dizziness or lightheadedness No chest pains or discomfort. No chest pains or discomfort. No orthopnea worsening peripheral edema. No arrhythmias on telemetry Review of Systems Review of Systems: All systems reviewed & are unremarkable except as noted in HPI & below Physical Exam Eyes: PERRL, conjunctivae normal, anicteric sclerae ENMT: external ear and nose normal, oropharynx normal Neck: trachea midline, no thyromegaly Respiratory: normal respiratory effort, lungs clear to auscultation Cardiovascular: Rate/Rhythm: regular rate and regular rhythm Heart Sounds: normal S1, normal S2 and + murmur (Grade 1- 6 systolic); no gallop Palpation: normal PMI Vessels: normal carotid upstroke and radial pulses present; no JVD and no carotid bruit Extremities: no edema Gastrointestinal (Abdomen): normal bowel sounds, soft, nontender, no hepatosplenomegaly Musculoskeletal: no cyanosis or clubbing, extremities motor strength 5/5 Skin: no rashes, warm and dry Neurologic: PERRL, EOMI, accommodation nl, no face palsy, no dysarthria Psychiatric: A+Ox3, euthymic affect Results & Data Vital Signs (Past 12 Hours) Vital Signs Temp Pulse Pulse Resp BP Pulse Ox 01/15/20 07:45 36.5 C 60 16 110/66 96 01/15/20 07:35 60 01/15/20 06:53 70 18 92 01/15/20 03:15 36.5 C 82 20 113/51 L 95 01/15/20 00:25 75 Laboratory Results Laboratory Results - last 24 hr 01/14/20 01/14/20 01/14/20 11:43 12:47 12:47 APTT 36.8 H PTT Ratio 1.4 POC Glucose 211 H CK-MB (CK-2) 6.8 H Troponin I 0.179 H* Urine Color Urine Appearance Urine pH Ur Specific [place] Urine Protein Urine Glucose (UA) Urine Ketones Urine Blood Urine Nitrite Urine Bilirubin Urine Urobilinogen Ur Leukocyte Esterase 01/14/20 01/14/20 01/14/20 16:03 20:35 20:43 APTT 54.3 H* PTT Ratio 2.0 POC Glucose 143 H 205 H CK-MB (CK-2) Troponin I Urine Color Urine Appearance Urine pH Ur Specific [place] Urine Protein Urine Glucose (UA) Urine Ketones Urine Blood Urine Nitrite Urine Bilirubin Urine Urobilinogen Ur Leukocyte Esterase 01/14/20 01/15/20 01/15/20 22:00 05:51 06:39 APTT 39.5 H PTT Ratio 1.5 POC Glucose 195 H CK-MB (CK-2) Troponin I Urine Color Yellow Urine Appearance Clear Urine pH 5.0 Ur Specific [place] 1.022 Urine Protein Negative Urine Glucose (UA) Negative Urine Ketones Trace H Urine Blood Negative Urine Nitrite Negative Urine Bilirubin Negative Urine Urobilinogen Negative Ur Leukocyte Esterase Negative 01/15/20 07:28 APTT PTT Ratio POC Glucose 148 H CK-MB (CK-2) Troponin I Urine Color Urine Appearance Urine pH Ur Specific [place] Urine Protein Urine Glucose (UA) Urine Ketones Urine Blood Urine Nitrite Urine Bilirubin Urine Urobilinogen Ur Leukocyte Esterase
[2020-01-15] MEDS: NYSTATIN SUSP 500,000 U/5 ML UDC PO SCH ×2 (12:25→17:13)
--- NOTE | 2020-01-15 16:47 | Discharge Summary ---
Date of Service January 15, 2020 Admission HPI Per Admitting Provider HISTORY OF PRESENT ILLNESS: This is a 59-year-old female with past medical history significant for type 2 diabetes, chronic respiratory failure, on oxygen all the time, obstructive sleep apnea, noncompliant with CPAP use, oxygen at nighttime, history of hypertrophic obstructive cardiomyopathy, status post ICD, history of chronic diastolic CHF, hypertension, CAD, irritable bowel syndrome, morbid obesity, chronic kidney disease stage III, chronic migraine. Presents with chest pain since yesterday on and off, about 6/10 to 7/10 in severity, radiating to left arm and also she has chronic shortness of breath, uses oxygen all the time, and her sob seemed to be a little worse the last few days. She is not coughing up anything. No fever, no chills, but she has some sore throat and earache starting today. Some mild dizziness while ambulating. Because of ongoing symptoms she came to the ER. Currently, resting comfortably and hemodynamically stable .She received prednisone, breathing treatments and nitroglycerin in the ER and currently chest pain is almost resolved. Was nauseous, but no vomiting, no abdominal pain. No runny nose. Appetite is okay. Sleeps okay. She usually has diarrhea, but today she is somewhat constipated. No blood in the stools or black stools. No burning micturition or hematuria. No swelling in the legs, no rash. Admission Exam Per Admitting Provider GENERAL: The patient is obese, currently not in acute distress. VITAL SIGNS: Temperature 37.3, pulse 56, respiratory rate 16, blood pressure 112/66, oxygen 97% on 3 liters. HEENT: No pallor, no icterus. Pupils equal, round, and reactive to light. Ear exam normal. NECK: No JVD, no neck masses, no carotid bruits. CARDIOVASCULAR: S1, S2 heard, regular rate and rhythm, no murmur, no gallop. RESPIRATORY SYSTEM: Normal AP diameter. No accessory muscle use. No wheezing, no crackles. ABDOMEN: Soft, bowel sounds present, nontender. No distention. CENTRAL NERVOUS SYSTEM: Cranial nerves II-XII grossly intact, nonfocal. EXTREMITIES: No edema, no erythema. Principal Diagnosis ATYPICAL CHEST PAIN, ACUTE CORONARY SYNDROME RULED OUT Discharge Exam General- oriented x 3, not in distress, speaks in sentences with no effort or accessory muscle use Eyes- anicteric Mouth- (+) oral thrush Neck- no JVD Lungs- clear breath sounds bilaterally, no rales/wheezes Heart- normal rate, regular rhythm; no murmurs Abdomen- normal bowel sounds, nondistended, soft, nontender Extremities- no pretibial edema, no calf tenderness Neuro- alert, oriented x 3; no gross focal neurologic deficits Skin- warm & dry Discharge Data Allergies Allergy/AdvReac Type Severity Reaction Status Date / Time Penicillins Allergy Intermediate Flushing, Verified 10/20/19 20:34 Itchiness Sulfa (Sulfonamide Allergy Intermediate Swelling Verified 10/20/19 20:34 Antibiotics) doxycycline Allergy Unknown Unknown Verified 10/20/19 20:34 adhesive AdvReac Intermediate Blistering Verified 10/20/19 20:34 Consultations 01/13/20 20:42 ED Decision to Admit Stat 01/13/20 22:30 Consult Case Management - Discharge Planning Routine 01/14/20 08:00 Consult Cardiology Routine Ordered Studies FINDINGS: The heart remains enlarged. There is a right subclavian pacer/defibrillator. There is no failure. There is no focal pulmonary consolidation. There are no pleural effusions.[ IMPRESSION: Persistent cardiomegaly. No acute findings. Hospital Course (1) Atypical chest pain: (1) Atypical chest pain, acute coronary syndrome ruled out Troponins: 0.2, 0.1, 0.1 EKG: No signs of acute ischemia or infarct Echo: Left ventricular wall motion is normal, EF more than 70%, diastolic dysfunction grade 2 Cardiology service consulted- Dr. Bruno Patient placed on IV heparin for 2 days Chest pain has resolved Upper respiratory tract infection possibly contributing? Management noted below As per Dr. Bruno, if patient has another episode of anginal type of chest pain, will need a cardiac catheterization at [facility] in [place] 2. History of coronary artery disease, on aspirin, statin, and Toprol-XL. 3. History of sleep apnea, did not tolerate CPAP on oxygen. 4. History of hypertrophic cardiomyopathy, history of diastolic congestive heart failure, status post ICD. -Euvolemic -Continue Demadex, Aldactone and Toprol-XL 5. Possible component of upper respiratory tract infection --Patient reporting sore throat, right ear pain, and shortness of breath --Chest x-ray: No pneumonia --Flu PCR negative --At baseline oxygen supplementation of 2 L via nasal cannula --Symptoms have resolved --Continue cefdinir x5 more days to complete 7 days total Patient advised to take probiotics x2 weeks 6. Diabetes. --Resume usual insulin regimen at home 7. Chronic kidney disease stage III, presently creatinine of 1.32 --At baseline 8. Depression, continue her home medication of Remeron and Cymbalta. 9. Oral thrush --Nystatin x10 days ordered, monitor as an outpatient Discharge to home Follow-up with PCP in 1 week Follow-up with physics technical officer in 3 to 4 weeks Total Time Total Time Spent Total Time Spent (In Minutes): 40 MINUTES Discharge Plan Discharge Items Patient Disposition: Home - Self-Care Reason For Visit: CHEST PAIN Discharge Diagnosis: Chest pain Activity: As commented below Activity Comment: Resume resume activity gradually as tolerated, no heavy exertion Lifting: Wait until after follow-up appointment Exercise/Sports: Wait until after follow-up appointment Driving/Machine Use: No driving until allowed by primary care physician on follow-up Non-emergency contact: Primary Care Provider Call non-emergency contact if: you have any medication questions, your symptoms worsen, your pain is not controlled, your pain is worsening, your pain is unusual for you, your pain is concerning for you and you have a fever Follow-up/Referrals: Sb Bruno MD [Physician] - Diet: Carb Consistent or DM2 and Heart Healthy Addtl Attending Provider Instructions: Please review your new medication list and follow instructions carefully. Your new medications include: Cefdinir-antibiotic Nystatin-for oral thrush Take a probiotic daily x2 weeks. Please follow up with primary care physician Dr. Dusty Vyas on Tuesday, January 21, 2020 at 10:45 AM. Follow-up with [facility] cardiology clinic in 3 to 4 weeks. Please call their office for an appointment. Call your primary care physician or return to the ER immediately if with worsening of symptoms. Who to Call and When: Medical Emergencies: If at any time you feel your situation is an emergency, please call 911 immediately. Call 911 immediately or go to your nearest Emergency Room if you experience any of the following: Warning Signs and Symptoms of a Heart Attack * Chest pain that is not relieved by medication * Shortness of breath Pending Studies at Discharge: No Stand-Alone Forms: My [email or web address], Smoking Cessation Medications and DC Order Prescriptions: New nystatin 100,000 unit/mL Suspension 10 ml PO QID 10 Days Qty: 400 RF: 0 cefdinir 300 mg Capsule 300 mg PO BID 5 Days Qty: 10 RF: 0 Continued duloxetine 60 mg Capsule,Delayed Release(Dr/Ec) 60 mg PO QAM RF: 0 omeprazole 40 mg Capsule,Delayed Release(Dr/Ec) 40 mg PO QAM RF: 0 folic acid 1 mg Tablet 1 mg PO HS RF: 0 sumatriptan succinate 25 mg Tablet 50 mg PO DIRECTED PRN (Reason: Migraine Headache) RF: 0 metformin 500 mg Tablet 1,000 mg PO BIDM RF: 0 atorvastatin 40 mg Tablet 40 mg PO QAM Qty: 30 RF: 0 gabapentin 300 mg capsule 300 mg PO TID RF: 0 albuterol sulfate [Ventolin HFA] 90 mcg/actuation Hfa Aerosol Inhaler 2 puff INHALATION Q4H PRN (Reason: Wheezing) RF: 0 ondansetron 4 mg tablet,disintegrating 4 mg PO Q8H PRN (Reason: Nausea) RF: 0 Humalog Mix 75-25 KwikPen 100 unit/mL (75-25) insulin pen 55 unit subcut QAM RF: 0 Humalog Mix 75-25 KwikPen 100 unit/mL (75-25) insulin pen 25 unit subcut QDD RF: 0 duloxetine 30 mg capsule,delayed release(DR/EC) 30 mg PO QAM RF: 0 Tradjenta 5 mg Tablet 5 mg PO QAM RF: 0 nitroglycerin [Nitrostat] 0.4 mg tablet, sublingual 0.4 mg sublingual DIRECTED PRN (Reason: Chest Pain) RF: 0 fluticasone propion-salmeterol [Advair Diskus] 500-50 mcg/dose Blister With Device 1 inh INHALATION Q12H RF: 0 spironolactone [Aldactone] 25 mg Tablet 25 mg PO QAM RF: 0 metoprolol succinate 100 mg tablet extended release 24 hr 100 mg PO BID RF: 0 mirtazapine 45 mg Tablet 45 mg PO HS RF: 0 ropinirole 0.5 mg Tablet 0.5 mg PO HS RF: 0 famotidine 20 mg tablet 20 mg PO BID Qty: 20 RF: 0 albuterol sulfate 2.5 mg /3 mL (0.083 %) solution for nebulization 3 ml Inhalation Q4H PRN (Reason: Wheezing) RF: 0 diphenoxylate-atropine [Lomotil] 2.5-0.025 mg Tablet 1 tab PO QID PRN (Reason: Diarrhea) RF: 0 aspirin [Ecotrin Low Strength] 81 mg tablet,delayed release (DR/EC) 81 mg PO QAM RF: 0 verapamil 40 mg tablet 40 mg PO QID RF: 0 torsemide 10 mg Tablet 10 mg PO DAILY RF: 0 budesonide 0.5 mg/2 mL suspension for nebulization 0.5 mg inhalation BID RF: 0 Discharge Orders: Discharge Order (Routine); Ordered 01/15/20 Ordered By: Aniceto Patterson Admission Data Admit Date/Time: 01/13/20 21:26 Attending Provider: Aniceto Patterosn Admit Provider: Mikey Mayberry Primary Care Provider: Suad De León Other Providers: Mikey Mayberry ; Luther Verdugo ; Hammad Sandhu ; Sb Bruno ; Abdirahman Giles ; Brennan Grant ; Fredis Carlisle ; Sheryl Cabrera ; Francine Jackson ; Woody Corley
--- NOTE | 2020-01-15 19:01 | Electrocardiogram Report ---
Test Reason : Blood Pressure : / mmHG Vent. Rate : 063 BPM Atrial Rate : 063 BPM P-R Int : 200 ms QRS Dur : 096 ms QT Int : 426 ms P-R-T Axes : -19 -01 117 degrees QTc Int : 435 ms Atrial-paced rhythm Left ventricular hypertrophy with repolarization abnormality Abnormal ECG When compared with ECG of 14-JAN-2020 06:25, Electronic atrial pacemaker has replaced Sinus rhythm Confirmed by Oleksandr Gann ([id number]) on 01/15/2020 7:00:26 PM Referred By: REFERRED SELF Confirmed By:Lavelle Gann
== END 2020-01-15 18:14 | disposition home or self-care (01) | DRG 313 ==
LOC: ED 18:19 → 2S 21:26

== ENCOUNTER 2020-04-30 20:08 | Inpatient (IN) ==
[2020-04-30] MEDS ORDERED: MoRPHine SULFATE 4 MG/ML 1 ML CARP\\VIAL IV STA (20:44)
[2020-04-30] MEDS ORDERED: ONDANSETRON INJ 2 MG/ML 2 ML VIAL IV STA (20:44)
[2020-04-30] MEDS ORDERED: MoRPHine SULFATE 2 MG/ML CARP IV STA (20:51)
--- NOTE | 2020-04-30 21:01 | Emergency Department Note ---
History of Present Illness General Chief complaint: Flank Pain Stated complaint: POSSIBLE KIDNEY INFECTION Time Seen by Provider: 04/30/20 20:30 History of Present Illness Maximum Pain Intensity: 10 This is a 60-year-old female that presents to the emergency department via private vehicle with complaints of "possible kidney infection". Patient states that beginning 2 days ago when she urinated the urine was quite cloudy and there was burning with urination. She then had a headache and felt mild shortness of breath with mild cough and mild fever T-max 99.8 F and chills. No chest pain. She also notes progression of right lower quadrant abdominal discomfort. She states that the appendix is no longer present. She denies any recent close contacts that have been ill or travel. Overall discomfort is a 10/10. No history of ureteral or renal calculi or pyelonephritis. She denies any new loss of taste or smell. Home Medications Home Medications Medication Instructions Recorded Confirmed Type duloxetine 60 mg PO QAM 08/09/18 04/30/20 History folic acid 1 mg PO HS 08/09/18 04/30/20 History omeprazole 40 mg PO QAM 08/09/18 04/30/20 History sumatriptan succinate 50 mg PO DIRECTED PRN 08/09/18 04/30/20 History metformin [Glucophage] 1,000 mg PO BIDM 08/12/18 04/30/20 History albuterol sulfate 3 ml INHALATION Q4H PRN 09/09/18 04/30/20 History diphenoxylate-atropine [Lomotil] 1 tab PO QID PRN 12/19/18 04/30/20 History aspirin [Ecotrin Low Strength] 81 mg PO QAM 04/12/19 04/30/20 History Tradjenta 0 mg PO QAM 06/30/19 04/30/20 History albuterol sulfate [Ventolin HFA] 2 puff INHALATION Q4H PRN 06/30/19 04/30/20 History duloxetine 30 mg PO QAM 06/30/19 04/30/20 History fluticasone propion-salmeterol 1 inh INHALATION Q12H PRN 06/30/19 04/30/20 History [Advair Diskus] gabapentin 300 mg PO TID 06/30/19 04/30/20 History insulin lispro protamin-lispro 25 unit SUBCUT QDD 06/30/19 04/30/20 History [Humalog Mix 75-25 KwikPen] insulin lispro protamin-lispro 55 unit SUBCUT QDB 06/30/19 04/30/20 History [Humalog Mix 75-25 KwikPen] nitroglycerin [Nitrostat] 0.4 mg SUBLINGUAL DIRECTED PRN 06/30/19 04/30/20 History ondansetron 4 mg PO Q8H PRN 06/30/19 04/30/20 History spironolactone [Aldactone] 25 mg PO QAM 06/30/19 04/30/20 History metoprolol succinate 100 mg PO BID 09/25/19 04/30/20 History mirtazapine 45 mg PO HS 09/25/19 04/30/20 History ropinirole 0.5 mg PO HS 09/25/19 04/30/20 History famotidine 20 mg PO BID #20 tab 10/20/19 04/30/20 Rx budesonide 0 mg INHALATION BID 01/13/20 04/30/20 History torsemide 10 mg PO QAM 01/13/20 04/30/20 History verapamil 40 mg PO QID 01/13/20 04/30/20 History acetaminophen [Tylenol Extra 1,500 mg PO UD PRN 04/30/20 04/30/20 History Strength] atorvastatin [Lipitor] 40 mg PO QAM 04/30/20 04/30/20 History Allergies Allergy/AdvReac Type Severity Reaction Status Date / Time Penicillins Allergy Intermediate Flushing, Verified 04/30/20 22:18 Itchiness Sulfa (Sulfonamide Allergy Intermediate Swelling Verified 04/30/20 22:18 Antibiotics) doxycycline Allergy Unknown Unknown Verified 04/30/20 22:18 adhesive AdvReac Intermediate Blistering Verified 04/30/20 22:18 Past Med/Surg History Medical History Anxiety (Chronic) Arthritis (Chronic) Asthma (Chronic) Cardiac defibrillator in place (Chronic) 2014 CHF (congestive heart failure) CKD (chronic kidney disease), stage III (Chronic) COPD (chronic obstructive pulmonary disease) (Chronic) Depression (Chronic) Depression with anxiety (Chronic) Diabetes mellitus, type 2 (Chronic) Elevated troponin (Chronic) Elevated troponin (Chronic) Fatty (change of) liver, not elsewhere classified (Chronic) GERD (gastroesophageal reflux disease) (Chronic) HLD (hyperlipidemia) (Chronic) Hydronephrosis of right kidney (Chronic) Hypertension (Chronic) Hypertrophic cardiomyopathy (Chronic) CADENCE (obstructive sleep apnea) (Chronic) on nocturnal O2 2L Pancreatic cyst (Chronic) Restless leg syndrome (Chronic) Surgical History H/O section (Resolved) 1979 & 1982 H/O hernia repair (Resolved) 2016 History of appendectomy (Resolved) 1970s History of colostomy reversal (Resolved) bowel perf 2014 with colostomy reversed in 2014 Status post internal cardiac defibrillator procedure (Chronic) "2015" Status post partial resection of colon (Chronic) "diverticulitis 11/05/14" Family History Other Hypertrophic cardiomyopathy Stomach cancer Thyroid disorder Social History Preferred Language: Nepali Communication Ability: Effective Conference Services Director Required: No Beliefs That Will Affect Care: None marital status: Current Living Situation: Spouse 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 Feels Safe at Home: Yes Smoking Status: Never smoker Second Hand Exposure: No ; Hx Alcohol Use: No Hx Substance Use: No Review of Systems A total of 10 systems reviewed and were otherwise negative Physical Exam Vital Signs Vital Signs - 24 hr 04/30/20 20:10 04/30/20 21:18 04/30/20 21:24 Temperature 36.9 C Temperature Source Oral Pulse Rate 70 71 Pulse Rate [Right Finger] Pulse Rate from SpO2 Sensor 71 Respiratory Rate 20 26 H Blood Pressure 121/71 126/75 Blood Pressure [Right Arm] Blood Pressure Mean 87 90 Blood Pressure Mean [Right Arm] Blood Pressure Position [Right Arm] Pulse Oximetry 98 100 100 Oxygen Delivery Method Room Air Room Air Oxygen Flow Rate 2 Sepsis Recent Fever Within 48 Hours No Sepsis New/Unexplained Change in Mental Status No Sepsis Action Taken by Nursing No Action Required 04/30/20 21:30 04/30/20 22:00 04/30/20 22:34 Temperature Temperature Source Pulse Rate 71 71 72 Pulse Rate [Right Finger] 71 Pulse Rate from SpO2 Sensor 71 72 Respiratory Rate 29 H 25 H 24 Blood Pressure 119/75 127/80 131/63 Blood Pressure [Right Arm] 131/63 Blood Pressure Mean 90 97 88 Blood Pressure Mean [Right Arm] 85 Blood Pressure Position [Right Arm] Sitting Pulse Oximetry 93 100 Oxygen Delivery Method Nasal Cannula Nasal Cannula Oxygen Flow Rate 2 2 Sepsis Recent Fever Within 48 Hours Sepsis New/Unexplained Change in Mental Status Sepsis Action Taken by Nursing 04/30/20 23:00 04/30/20 23:30 05/01/20 00:00 Temperature Temperature Source Pulse Rate 72 70 71 Pulse Rate [Right Finger] Pulse Rate from SpO2 Sensor Respiratory Rate 21 17 22 Blood Pressure 119/72 113/64 125/71 Blood Pressure [Right Arm] Blood Pressure Mean 101 73 79 Blood Pressure Mean [Right Arm] Blood Pressure Position [Right Arm] Pulse Oximetry Oxygen Delivery Method Oxygen Flow Rate Sepsis Recent Fever Within 48 Hours Sepsis New/Unexplained Change in Mental Status Sepsis Action Taken by Nursing 05/01/20 00:30 Temperature Temperature Source Pulse Rate 71 Pulse Rate [Right Finger] Pulse Rate from SpO2 Sensor Respiratory Rate 21 Blood Pressure 124/69 Blood Pressure [Right Arm] Blood Pressure Mean 82 Blood Pressure Mean [Right Arm] Blood Pressure Position [Right Arm] Pulse Oximetry Oxygen Delivery Method Oxygen Flow Rate Sepsis Recent Fever Within 48 Hours Sepsis New/Unexplained Change in Mental Status Sepsis Action Taken by Nursing VITAL SIGNS - Vital signs and nursing notes were reviewed. Stable and afebrile. GENERAL -60-year-old female appearing her stated age who is in no acute distr ess. Communicates well with provider and answers questions appropriately. Patient on 2 L nasal cannula oxygen. SKIN - Without rashes. No meningeal or petechial rash. HEAD - NC/AT. EYES - Sclera anicteric. EARS - No deformities of external structures noted on gross examination bilaterally. NOSE - Midline and without cyanosis. No epistaxis or purulent drainage noted. MOUTH/OROPHARYNX - Without perioral cyanosis. NECK - Neck with FROM. No nuchal rigidity. LUNGS - Chest wall symmetric without accessory muscle use, intercostals retractions, or central cyanosis. Normal vesicular breath sounds CTA B/L. No wheezes, rales, or rhonchi appreciated. CARDIAC -RRR ABDOMEN - Abdominal contour normal without pulsations or visible masses. Bowel sounds normoactive all 4 quadrants with right lower quadrant tenderness. No fluid wave. NEUROLOGIC - Cranial nerves II through XII grossly intact. PSYCH - A&O, and cooperates fully with examiner. Pt is very pleasant and interacts well with examiner. Course Administered Medications Discontinued Medications Ceftriaxone Sodium (Rocephin) 1,000 mg in 50 mls @ 100 mls/hr IV NOW STA Stop: 04/30/20 23:13 Last Infusion: 05/01/20 00:32 Dose: 0 mls/hr Documented by: [id number] Admin: 04/30/20 23:48 Dose: 100 mls/hr Documented by: [id number] Morphine Sulfate (Morphine Sulfate) 2 mg IV NOW STA Stop: 04/30/20 20:52 Last Admin: 04/30/20 21:15 Dose: 2 mg Documented by: [id number] Ondansetron HCl (Zofran) 4 mg IV NOW STA Stop: 04/30/20 20:45 Last Admin: 04/30/20 21:15 Dose: 4 mg Documented by: [id number] Medical Decision Making Laboratory Data Result diagrams: 04/30/20 21:08 04/30/20 21:08 Lab Results 04/30/20 04/30/20 04/30/20 Range/Units 20:30 21:08 21:08 WBC 23.45 H (4.8-10.8) K/uL RBC 4.89 (4.2-5.4) M/uL Hgb 13.3 (12.0-16.0) g/dL Hct 40.9 (37-47) % MCV 83.6 (80-100) fL MCH 27.2 (25-34) pg MCHC 32.5 (32-36) g/dL RDW Std Deviation 52.2 H (36.4-46.3) fL RDW Coeff of Rolan 17.1 H (11.5-14.5) % Plt Count 237 (130-400) K/uL MPV 9.0 (7.4-10.4) fL Immature Gran % (Auto) 0.5 % Neut % (Auto) 89.9 % Lymph % (Auto) 3.8 % Gilchrist % (Auto) 5.6 % Eos % (Auto) 0.1 % Baso % (Auto) 0.1 % Immature Gran # (Auto) 0.12 H (0.00-0.02) K/uL Neut # (Auto) 21.08 H (1.4-6.5) K/uL Lymph # (Auto) 0.89 L (1.2-3.4) K/uL [place]christ # (Auto) 1.32 H (0.11-0.59) K/uL Eos # (Auto) 0.02 (0-0.5) K/uL Baso # (Auto) 0.02 (0-0.2) K/uL PT 11.6 (9.0-12.0) Seconds INR 1.1 (0.9-1.1) APTT 34.0 H (21.0-31.0) Seconds PTT Ratio 1.2 Sodium (136-145) mmol/L Potassium (3.5-5.1) mmol/L Chloride (98-107) mmol/L Carbon Dioxide (21-32) mmol/L Anion Gap (3-11) BUN (7-18) mg/dl Creatinine (0.6-1.2) mg/dl Est Cr Clr Drug Dosing ml/min Est GFR ( Amer) Est GFR (Non-Af Amer) BUN/Creatinine Ratio (10-20) Glucose (70-99) mg/dl Lactate (0.4-2.0) mmol/L Calcium (8.5-10.1) mg/dl Magnesium (1.8-2.4) mg/dl Total Bilirubin (0.2-1) mg/dl AST (15-37) U/L ALT (12-78) U/L Alkaline Phosphatase (45-117) U/L Troponin I (0-0.045) ng/ml Total Protein (6.4-8.2) gm/dl Albumin (3.4-5.0) gm/dl Globulin (2.5-4.0) gm/dl Albumin/Globulin Ratio (0.9-2) Lipase (73-393) U/L Specimen Hemolysis Urine Color Yellow Urine Appearance Turbid A (Clear) Urine pH 5.5 (4.5-7.5) Ur Specific [place] 1.015 (1.000-1.030) Urine Protein 2+ H (Negative) Urine Glucose (UA) Negative (Negative) Urine Ketones Negative (Negative) Urine Blood 3+ H (Negative) Urine Nitrite Positive A (Negative) Urine Bilirubin Negative (Negative) Urine Urobilinogen Negative (Negative) Ur Leukocyte Esterase 3+ H (Negative) Urine WBC (Auto) >30 H (0-5) /hpf Urine RBC (Auto) >30 H (0-4) /hpf U Hyaline Cast (Auto) 1-5 (0-5) /lpf U Epithel Cells (Auto) >30 H (0-5) /lpf Urine Bacteria (Auto) 4+ H (Negative) 04/30/20 04/30/20 Range/Units 21:08 23:16 WBC (4.8-10.8) K/uL RBC (4.2-5.4) M/uL Hgb (12.0-16.0) g/dL Hct (37-47) % MCV (80-100) fL MCH (25-34) pg MCHC (32-36) g/dL RDW Std Deviation (36.4-46.3) fL RDW Coeff of Rolan (11.5-14.5) % Plt Count (130-400) K/uL MPV (7.4-10.4) fL Immature Gran % (Auto) % Neut % (Auto) % Lymph % (Auto) % Gilchrist % (Auto) % Eos % (Auto) % Baso % (Auto) % Immature Gran # (Auto) (0.00-0.02) K/uL Neut # (Auto) (1.4-6.5) K/uL Lymph # (Auto) (1.2-3.4) K/uL Gilchrist # (Auto) (0.11-0.59) K/uL Eos # (Auto) (0-0.5) K/uL Baso # (Auto) (0-0.2) K/uL PT (9.0-12.0) Seconds INR (0.9-1.1) APTT (21.0-31.0) Seconds PTT Ratio Sodium 135 L (136-145) mmol/L Potassium 5.4 H (3.5-5.1) mmol/L Chloride 103 (98-107) mmol/L Carbon Dioxide 22 (21-32) mmol/L Anion Gap 10.0 (3-11) BUN 48 H (7-18) mg/dl Creatinine 2.11 H (0.6-1.2) mg/dl Est Cr Clr Drug Dosing 24.5 ml/min Est GFR ( Amer) 28.4 Est GFR (Non-Af Amer) 24.5 BUN/Creatinine Ratio 22.9 H (10-20) Glucose 67 L (70-99) mg/dl Lactate 1.0 (0.4-2.0) mmol/L Calcium 9.6 (8.5-10.1) mg/dl Magnesium 1.8 (1.8-2.4) mg/dl Total Bilirubin 0.9 (0.2-1) mg/dl AST 23 (15-37) U/L ALT 27 (12-78) U/L Alkaline Phosphatase 146 H (45-117) U/L Troponin I 0.122 H* (0-0.045) ng/ml Total Protein 8.2 (6.4-8.2) gm/dl Albumin 3.6 (3.4-5.0) gm/dl Globulin 4.6 H (2.5-4.0) gm/dl Albumin/Globulin Ratio 0.8 L (0.9-2) Lipase 188 (73-393) U/L Specimen Hemolysis Urine Color Urine Appearance (Clear) Urine pH (4.5-7.5) Ur Specific [place] (1.000-1.030) Urine Protein (Negative) Urine Glucose (UA) (Negative) Urine Ketones (Negative) Urine Blood (Negative) Urine Nitrite (Negative) Urine Bilirubin (Negative) Urine Urobilinogen (Negative) Ur Leukocyte Esterase (Negative) Urine WBC (Auto) (0-5) /hpf Urine RBC (Auto) (0-4) /hpf U Hyaline Cast (Auto) (0-5) /lpf U Epithel Cells (Auto) (0-5) /lpf Urine Bacteria (Auto) (Negative) Imaging Data Radiologist's Impression: XR chest 1V portable HISTORY: 60 years-old Female dyspnea acute shortness of breath COMPARISON: Chest radiograph 01/27/2020 TECHNIQUE: Portable AP view of the chest FINDINGS: Cardiac silhouette is enlarged, unchanged. Right subclavian pacer/AICD. No pneumothorax, pleural effusion, airspace consolidation or overt pulmonary edema. Degenerative changes of the shoulders and spine. IMPRESSION: Cardiomegaly without acute process. ACT 112: Negative or not required by law. The above report was generated using voice recognition software. It may contain grammatical, syntax or spelling errors. Electronically signed by: Vidal Jay M.D. 04/30/2020 9:41 PM ABDOMEN AND PELVIS CT WITHOUT CONTRAST CT DOSE: 991.86 mGy.cm HISTORY: Acute right lower quadrant abdominal pain with urinary tract infection RLQ abd pain/UTI TECHNIQUE: Multiaxial CT images of the abdomen and pelvis were performed without contrast. A dose lowering technique was utilized adhering to the principles of ALARA. COMPARISON STUDY: CT abdomen and pelvis 01/27/2020, 01/09/2017. FINDINGS: Cardiomegaly. Partially imaged pacer leads overlie the right heart. Lung bases appear clear. No pneumatosis or pneumoperitoneum. Spleen is mildly enlarged, 13.5 cm. Limited evaluation of the solid abdominal organs without the use of IV contrast. 2.5 cm ovoid cystic lesion involving the pancreatic head is unchanged dating back to 2016. Unremarkable appearance of the gallbladder. Probable hepatic steatosis. Unremarkable appearance of the left kidney. Chronic moderate right-sided hydroureteronephrosis with external renal pelvis and abrupt transition at the ureteropelvic junction suggestive of chronic UPJ obstruction. Cortical thinning of the bilateral kidneys. Progressively worsened perinephric stranding of the right kidney. There may also be urothelial thickening of the right renal collecting system. No ureteral calculi. Unremarkable urinary bladder, uterus and adnexa. Calcified plaque of the abdominal aorta without aneurysm. No bowel obstruction or bowel wall thickening. Postoperative changes of prior partial sigmoid colon resection with colocolonic anastomosis. Colonic diverticulosis without acute diverticulitis. Moderate fecal retention. The appendix is not diagnostically visualized it is reportedly surgically absent. Diastases recti. Multiple small fat filled ventral abdominal wall hernias. Degenerative changes of the spine, pelvis and hips. IMPRESSION: 1. Chronic moderate right-sided hydronephrosis with findings suggestive of UPJ obstruction. Worsening perinephric stranding on the right is noted along with probable urothelial thickening. Correlate with urinalysis to exclude pyelitis/pyelonephritis. 2. No urolith. 3. Moderate fecal retention. No bowel obstruction or bowel wall thickening. 4. Colonic diverticulosis. 5. Splenomegaly. 6. Hepatic steatosis. 7. Unchanged 2.5 cm cystic lesion of the pancreatic head, stable dating back to 2016. ACT 112: Negative or not required by law. The above report was generated using voice recognition software. It may contain grammatical, syntax or spelling errors. Electronically signed by: Vidal Jay M.D. 04/30/2020 10:42 PM ECG Data Additional Comments: EKG was reviewed by myself and found to be Normal Sinus Rhythm at a rate of 69 beats per minute and per my interpretation reveals LVH and when compared to EKG of January 15, 2020 no significant change was found. QTc is 409. MDM Narrative Patient was seen and evaluated as above in room B7. Review was performed of nursing notes and vital signs. I did review pertinent previous visits and patient history. After obtaining a thorough history and physical examination the above work up was performed. Patient has a complex past medical history but does not have any history of renal calculi or pyelonephritis. She presents to us today with right lower quadrant abdominal pain in the setting of dysuria. I do not suspect COVID. Chest x-ray reveals no pneumonia but there is card iomegaly. A CT scan was obtained of the abdomen pelvis and was initially ordered with contrast but when labs resulted and showed OSBALDO this was changed to noncontrast. There is chronic moderate right-sided hydronephrosis with finding suggestive of UPJ obstruction. Worsening perinephric stranding on the right is noted along with probable urothelial thickening. When correlated with the urinalysis there is concern for infection.Labs reveal leukocytosis of 23.45 without anemia. There is evidence of potassium elevation of 5.4. BUN and creatinine are elevated. This is beyond her baseline. Troponin is elevated but is chronic and near her baseline. Urinalysis is concerning for UTI. I discuss ed the case with the attending physician. The patient has previously followed with [facility] urology but unfortunately we do not have them locally here anymore and I discussed this with the hospitalist and decision was made to place consult for the a.m. here with on-call urologist (non [facility] [address]) for the hospital while the patient is admitted here. I do not believe that the patient requires transfer at this time nor would that be in her best interest. Patient amenable to staying. Blood cultures pending. Lactic acid within normal limits. Rocephin empirically ordered. She was also medicated with IV morphine for pain and Zofran for nausea. I did not bolus the patient with fluids here noting that she had stable vital signs and with her cardiac history did not feel that would be in her best interest. Please refer to further documentation regarding her stay. EKG was reviewed by myself and found to be Normal Sinus Rhythm at a rate of 69 beats per minute and per my interpretation reveals LVH and when compared to EKG of January 15, 2020 no significant change was found. QTc is 409. An order was placed for continuous cardiac monitoring. The monitor shows a rate of 71 with sinus rhythm. I attest that I have personally reviewed the patient medication list. I attest that I have reviewed the patient's blood pressure and it was found to be within normal limits GCS: 15 In the evaluation and treatment of this patient the following differential diagnoses were entertained: UTI, pyelonephritis, obstruction, ureteral calculi, hydronephrosis, acute abdomen, among others. Impression & Plan Hydronephrosis of right kidney, Acute UTI Discharge Plan Visit Data Chief Complaint: Flank Pain Stated Complaint: POSSIBLE KIDNEY INFECTION ED Provider: Shun Muniz ED Midlevel Provider: Dom Fajardo Discharge Problem: Hydronephrosis of right kidney, Acute UTI Patient Disposition: Admitted As Inpatient Condition: Good Forms Stand Alone Forms: [facility], [facility] Emergency Department, Important Visit Information Prescriptions Prescriptions: No Action duloxetine 60 mg Capsule,Delayed Release(Dr/Ec) 60 mg PO QAM RF: 0 omeprazole 40 mg Capsule,Delayed Release(Dr/Ec) 40 mg PO QAM RF: 0 folic acid 1 mg Tablet 1 mg PO HS RF: 0 sumatriptan succinate 25 mg Tablet 50 mg PO DIRECTED PRN (Reason: Migraine Headache) RF: 0 metformin [Glucophage] 500 mg Tablet 1,000 mg PO BIDM RF: 0 gabapentin 300 mg capsule 300 mg PO TID RF: 0 albuterol sulfate [Ventolin HFA] 90 mcg/actuation Hfa Aerosol Inhaler 2 puff INHALATION Q4H PRN (Reason: Wheezing) RF: 0 ondansetron 4 mg tablet,disintegrating 4 mg PO Q8H PRN (Reason: Nausea) RF: 0 insulin lispro protamin-lispro [Humalog Mix 75-25 KwikPen] 100 unit/mL (75-25) insulin pen 55 unit subcut QDB RF: 0 insulin lispro protamin-lispro [Humalog Mix 75-25 KwikPen] 100 unit/mL (75-25) insulin pen 25 unit subcut QDD RF: 0 duloxetine 30 mg capsule,delayed release(DR/EC) 30 mg PO QAM RF: 0 Tradjenta 5 mg Tablet 0 mg PO QAM RF: 0 nitroglycerin [Nitrostat] 0.4 mg tablet, sublingual 0.4 mg sublingual DIRECTED PRN (Reason: Chest Pain) RF: 0 fluticasone propion-salmeterol [Advair Diskus] 500-50 mcg/dose Blister With Device 1 inh INHALATION Q12H PRN (Reason: Unknown) RF: 0 spironolactone [Aldactone] 25 mg Tablet 25 mg PO QAM RF: 0 metoprolol succinate 100 mg tablet extended release 24 hr 100 mg PO BID RF: 0 mirtazapine 45 mg Tablet 45 mg PO HS RF: 0 ropinirole 0.5 mg Tablet 0.5 mg PO HS RF: 0 famotidine 20 mg tablet 20 mg PO BID Qty: 20 RF: 0 atorvastatin [Lipitor] 40 mg tablet 40 mg PO QAM RF: 0 acetaminophen [Tylenol Extra Strength] 500 mg Tablet 1,500 mg PO UD PRN (Reason: Pain) RF: 0 albuterol sulfate 2.5 mg /3 mL (0.083 %) solution for nebulization 3 ml Inhalation Q4H PRN (Reason: Wheezing) RF: 0 diphenoxylate-atropine [Lomotil] 2.5-0.025 mg Tablet 1 tab PO QID PRN (Reason: Diarrhea) RF: 0 aspirin [Ecotrin Low Strength] 81 mg tablet,delayed release (DR/EC) 81 mg PO QAM RF: 0 verapamil 40 mg tablet 40 mg PO QID RF: 0 torsemide 10 mg Tablet 10 mg PO QAM RF: 0 budesonide 0.5 mg/2 mL suspension for nebulization 0 mg inhalation BID RF: 0 Referrals Referrals: Suad De León DO [Primary Care Provider] -
[2020-04-30 21:07] LABS: Appearance Urine Turbid (Clear); Bacteria Urine Automated 4+ (Negative); Bilirubin Urine Negative (Negative); Blood Urine 3+ (Negative); Color Urine Yellow; Epithelial Cell Urine Auto >30 /lpf (0-5); Glucose Urine UA Negative (Negative); Ketones Urine Negative (Negative); Leukocyte Esterase Urine 3+ (Negative); Nitrite Urine Positive (Negative); Protein Urine 2+ (Negative); RBC Urine Automated >30 /hpf (0-4); Specific Gravity Urine 1.015 (1.000-1.030); Urobilinogen Urine Negative (Negative); WBC Urine Automated >30 /hpf (0-5); pH Urine 5.5 (4.5-7.5)
[2020-04-30 21:19] LABS: Hematocrit (blood only) 40.9 % (37-47); Hemoglobin 13.3 g/dL (12.0-16.0); Mean Corpuscular Hemoglobin 27.2 pg (25-34); Mean Corpuscular Hgb Conc 32.5 g/dL (32-36); Mean Corpuscular Volume 83.6 fL (80-100); Platelet Count 237 K/uL (130-400); RDW Coefficient of Variation 17.1 % (11.5-14.5); RDW Standard Deviation 52.2 fL (36.4-46.3); Red Blood Count 4.89 M/uL (4.2-5.4); White Blood Count 23.45 K/uL (4.8-10.8)
[2020-04-30 21:31] LABS: INR 1.1 (0.9-1.1); Partial Thromboplastin Ratio 1.2; Prothrombin Time 11.6 Seconds (9.0-12.0)
--- NOTE | 2020-04-30 21:42 | XRay Report ---
XR chest 1V portable HISTORY: 60 years-old Female dyspnea acute shortness of breath COMPARISON: Chest radiograph 01/27/2020 TECHNIQUE: Portable AP view of the chest FINDINGS: Cardiac silhouette is enlarged, unchanged. Right subclavian pacer/AICD. No pneumothorax, pleural effu tobias, airspace consolidation or overt pulmonary edema. Degenerative changes of the shoulders and spin e. IMPRESSION: Cardiomegaly without acute process. ACT 112: Negative or not required by law. The above report was generated using voice recognition software. It may contain grammatical, syntax o r spelling errors. Electronically signed by: Vidal Jay M.D. 04/30/2020 9:41 PM
[2020-04-30 21:59] LABS: Albumin Globulin Ratio 0.8 (0.9-2); Albumin Level 3.6 gm/dl (3.4-5.0); BUN Creatinine Ratio 22.9 (10-20); Bilirubin,Total 0.9 mg/dl (0.2-1); Calcium 9.6 mg/dl (8.5-10.1); Creatinine Clr Calc Pharmacy 24.5 ml/min; Est GFR (African American) 28.4; Est GFR (Non-African American) 24.5; Globulin 4.6 gm/dl (2.5-4.0); Magnesium 1.8 mg/dl (1.8-2.4); Potassium 5.4 mmol/L (3.5-5.1); Total Protein 8.2 gm/dl (6.4-8.2); Troponin I 0.122 ng/ml (0-0.045)
[2020-04-30 22:02] LABS: Basophils # (auto) 0.02 K/uL (0-0.2); Basophils % (auto) 0.1 %; Eosinophils # (auto) 0.02 K/uL (0-0.5); Eosinophils % (auto) 0.1 %; Immature Granulocytes # (auto) 0.12 K/uL (0.00-0.02); Immature Granulocytes % (auto) 0.5 %; Lymphocytes # (auto) 0.89 K/uL (1.2-3.4); Lymphocytes % (auto) 3.8 %; Monocytes # (auto) 1.32 K/uL (0.11-0.59); Monocytes % (auto) 5.6 %; Neutrophils # (auto) 21.08 K/uL (1.4-6.5); Neutrophils % (auto) 89.9 %
--- NOTE | 2020-04-30 22:43 | CT Scan Report ---
ABDOMEN AND PELVIS CT WITHOUT CONTRAST CT DOSE: 991.86 mGy.cm HISTORY: Acute right lower quadrant abdominal pain with urinary tract infection RLQ abd pain/UTI TECHNIQUE: Multiaxial CT images of the abdomen and pelvis were performed without contrast. A dose lo wering technique was utilized adhering to the principles of ALARA. COMPARISON STUDY: CT abdomen and pelvis 01/27/2020, 01/09/2017. FINDINGS: Cardiomegaly. Partially imaged pacer leads overlie the right heart. Lung bases appear clear. No pneum atosis or pneumoperitoneum. Spleen is mildly enlarged, 13.5 cm. Limited evaluation of the solid abdom inal organs without the use of IV contrast. 2.5 cm ovoid cystic lesion involving the pancreatic head is unchanged dating back to 2017. Unremarkable appearance of the gallbladder. Probable hepatic steato sis. Unremarkable appearance of the left kidney. Chronic moderate right-sided hydroureteronephrosis with e xternal renal pelvis and abrupt transition at the ureteropelvic junction suggestive of chronic UPJ ob struction. Cortical thinning of the bilateral kidneys. Progressively worsened perinephric stranding o f the right kidney. There may also be urothelial thickening of the right renal collecting system. No ureteral calculi. Unremarkable urinary bladder, uterus and adnexa. Calcified plaque of the abdominal aorta without aneurysm. No bowel obstruction or bowel wall thickening. Postoperative changes of prior partial sigmoid colon r esection with colocolonic anastomosis. Colonic diverticulosis without acute diverticulitis. Moderate fecal retention. The appendix is not diagnostically visualized it is reportedly surgically absent. Di astases recti. Multiple small fat filled ventral abdominal wall hernias. Degenerative changes of the spine, pelvis and hips. IMPRESSION: 1. Chronic moderate right-sided hydronephrosis with findings suggestive of UPJ obstruction. Worsening perinephric stranding on the right is noted along with probable urothelial thickening. Correlate wit h urinalysis to exclude pyelitis/pyelonephritis. 2. No urolith. 3. Moderate fecal retention. No bowel obstruction or bowel wall thickening. 4. Colonic diverticulosis. 5. Splenomegaly. 6. Hepatic steatosis. 7. Unchanged 2.5 cm cystic lesion of the pancreatic head, stable dating back to 2016. ACT 112: Negative or not required by law. The above report was generated using voice recognition software. It may contain grammatical, syntax o r spelling errors. Electronically signed by: Vidal Jay M.D. 04/30/2020 10:42 PM
[2020-04-30] MEDS ORDERED: cefTRIAXone SODIUM 1,000 MG/50 ML BAG IV STA (22:44)
--- NOTE | 2020-05-01 03:08 | History and Physical Report ---
DATE OF ADMISSION: 05/01/2020 CHIEF COMPLAINT: Right flank pain. HISTORY OF PRESENT ILLNESS: This is a 60-year-old female with past medical history significant for type 2 diabetes, chronic respiratory failure, on oxygen all the time, obstructive sleep apnea, noncompliant with CPAP use, history of hypertrophic obstructive cardiomyopathy, status post ICD, history of chronic diastolic congestive heart failure, hypertension, CAD, irritable bowel syndrome, morbid obesity, chronic kidney disease stage III, chronic migraines, history of chronic right hydronephrosis noted since 2013, seen by urology and it is suspected to be a UPJ obstruction from and no treatment planned as this is a chronic obstruction as per urology. The patient lives with her and daughter and grand kid, presents with right flank pain going for last couple of days. She thinks she has low low-grade fever at home. Has some mild burning with micturition. Has some small amount of hematuria about a week ago. She has chronic shortness of breath, uses oxygen all the time. Denies any chest pain, has some chronic cough, chronic sore throat and chronic runny nose, has some mild headache. Has some nausea, no vomiting. No rash. Appetite is okay. No dysphagia. Ambulates okay. Currently resting comfortably and hemodynamically stable. Imaging studies shows she has pyelonephritis. ALLERGIES: PENICILLINS, SULFA, DOXYCYCLINE, ADHESIVES. PAST MEDICAL HISTORY: As mentioned above. PAST SURGICAL HISTORY: Carpal tunnel surgery bilaterally, , reversal of Gerard's procedure, colonoscopy, EGDs, status post ICD, incisional hernia repair, partial removal of colon, appendectomy, trigger finger release. MEDICATIONS: The patient is on Tylenol p.r.n., albuterol nebulization q. 4 hours p.r.n., albuterol or Ventolin 2 puffs every 4 hours p.r.n., aspirin 81 mg q.a.m., Lipitor 40 mg daily, budesonide inhalation b.i.d., Lomotil 1 tablet q.i.d. p.r.n., duloxetine 90 mg q.a.m., famotidine 20 mg p.o. b.i.d., Advair Diskus one inhalation b.i.d. p.r.n., folic acid 1 mg p.o. at bedtime, gabapentin 300 mg p.o. t.i.d., Humalog mix 75/25 55 units in a.m. and 25 units in p.m., metformin 1000 mg p.o. b.i.d., metoprolol succinate 100 mg p.o. b.i.d., Remeron 45 mg p.o. at bedtime, Nitrostat 0.4 mg sublingual p.r.n., omeprazole 40 mg q.a.m., Zofran 4 mg p.o. q. 8 hours p.r.n., ropinirole 0.5 mg p.o. at bedtime, Aldactone 25 mg q.a.m., sumatriptan 50 mg p.o. p.r.n., torsemide 10 mg p.o. a.m., verapamil 40 mg p.o. q.i.d. FAMILY HISTORY: Significant for daughter has arthritis, stomach cancer. Mother has arthritis, thyroid disorder, hyperlipidemia, hypertension. Father has hypertensive cardiomyopathy. SOCIAL HISTORY: Lives with her and daughter. No smoking, no alcohol, no drug use. REVIEW OF SYMPTOMS: As per HPI. Rest of review of symptoms negative. PHYSICAL EXAMINATION: GENERAL: The patient is obese, not in acute distress. VITAL SIGNS: Temperature 36.9, pulse 71, respiratory rate 21, blood pressure 124/69, oxygen 100% on 2 liters. HEENT: No pallor, no icterus. NECK: No JVD, no neck masses, no carotid bruits. CARDIOVASCULAR: S1, S2 heard, regular rate and rhythm, no murmur, no gallop. RESPIRATORY SYSTEM: Normal AP diameter. No accessory muscle use. No wheezing, no crackles. ABDOMEN: Soft, bowel sounds present. Mild abdominal discomfort. Mild right CVA tenderness. No distention. CENTRAL NERVOUS SYSTEM: Cranial nerves II-XII grossly intact. Nonfocal. EXTREMITIES: No edema, no erythema. LABORATORY DATA: WBC 23.4, hemoglobin 13.3, hematocrit 40.9, platelets 237. PT 11.6, INR 1.1, APTT 34. Sodium 135, potassium 5.4, chloride 103, bicarbonate 22, BUN 48, creatinine is 2.1, glucose 67. Lactate 1, calcium 9.6, magnesium 1.8, total bilirubin 0.9, AST 23, ALT 27, alkaline phosphatase 146. Troponin 0.122, lipase 188. Urinalysis positive for nitrite and leukocyte esterase. IMAGING DATA: Chest x-ray, cardiomegaly without acute process. CT of the abdomen and pelvis, chronic moderate right sided hydronephrosis with findings suggestive of UPJ obstruction, worsening perinephric stranding on the right is noted along with probable urothelial thickening, correlate with urinalysis to exclude bilateral pyelonephritis, moderate fecal retention, colonic diverticulosis, splenomegaly, hepatic steatosis, unchanged 2.5 cm cystic lesion of the pancreatic head. EKG: Normal sinus rhythm, rate of 69, left ventricular hypertrophy. No acute ST changes. ASSESSMENT AND PLAN: This is a 60-year-old female who presents with right flank pain, found to have pyelonephritis. 1. Pyelonephritis on the right side. CAT scan showing chronic moderate hydronephrosis and UPJ obstruction, which is chronic, recently followed by urology and no intervention planned. UPJ junction obstruction thought to be from the . Will follow the cultures, IV Rocephin. If any concerns to consult Urology, hemodynamically stable currently. 2. Elevated leukocytosis from above.Follow repeat labs. 3. Hyperkalemia: We will hold Aldactone. We will give a dose of Kayexalate. 4. History of coronary artery disease: On aspirin, statin and Toprol-XL. 5. History of sleep apnea, not tolerating CPAP, on oxygen. 6. History of hypertrophic cardiomyopathy, history of diastolic congestive heart failure, status post ICD. Will hold Demadex and Aldactone. For acute kidney injury. Continue Toprol. Monitor for fluid overload. 7. Acute kidney injury on chronic kidney disease stage III, baseline creatinine 1.3, presents with creatinine of 2.1. Holding Lasix and Aldactone, gentle fluids. Follow the labs. 9. Depression. Continue home medication of Remeron and Cymbalta. 10. Diabetes: Continue home Humalog mix 75/25. Placed on insulin sliding scale. Hold po medication. Monitor blood sugars. 11. Chronic respiratory failure:on home oxygen. on nebs as needed. 12. Mild elevation in troponin, which is a chronic elevation. 13. Deep venous thrombosis prophylaxis: Sequential compression devices. DISPOSITION: Admit to medical floor. Expect discharge home and follow with family doctor. PT and OT prior to discharge. Social Service to help with discharge planning. ERIKAD
[2020-05-01] MEDS ORDERED: ALBUTEROL HFA 8 GM INHALER INH PRN (03:16)
[2020-05-01] MEDS ORDERED: DIPHENOXYLATE/ATROPINE 2.5/0.025MG TAB PO PRN (03:16)
[2020-05-01] MEDS ORDERED: ALBUTEROL 0.083% NEBU SOLN 3 ML VIAL INH PRN (03:16)
[2020-05-01] MEDS ORDERED: NITROGLYCERIN SL 0.4 MG/TAB TAB SL PRN (03:16)
[2020-05-01] MEDS ORDERED: ONDANSETRON INJ 2 MG/ML 2 ML VIAL IV PRN (03:16)
[2020-05-01] MEDS ORDERED: SODIUM POLYSTYRENE SULFONATE 15G/60ML SUSP PO STA (03:16)
[2020-05-01] MEDS ORDERED: GLUCOSE 10 TABS/TUBE PO PRN (03:45)
[2020-05-01] MEDS ORDERED: GLUCOSE 40% GEL 15 GM TUBE PO PRN (03:45)
[2020-05-01] MEDS ORDERED: CARBOHYDRATES FOR HYPOGLYCEMIA PO PRN (03:45)
[2020-05-01] MEDS ORDERED: DEXTROSE 50% 50 ML SYRINGE IV PRN (03:45)
[2020-05-01] MEDS ORDERED: GLUCAGON FOR INJ 1 MG VIAL SQ PRN (03:45)
[2020-05-01] MEDS: MoRPHine SULFATE 2 MG/ML CARP IV PRN ×2 (03:59→11:19)
[2020-05-01] MEDS: SODIUM CHLORIDE 0.9% 1000ML 1,000 ML IV SCH (03:59)
--- NOTE | 2020-05-01 07:02 | Electrocardiogram Report ---
Test Reason : Blood Pressure : / mmHG Vent. Rate : 069 BPM Atrial Rate : 069 BPM P-R Int : 184 ms QRS Dur : 090 ms QT Int : 382 ms P-R-T Axes : 013 -02 106 degrees QTc Int : 409 ms Poor data quality, interpretation may be adversely affected Normal sinus rhythm Left ventricular hypertrophy with repolarization abnormality Abnormal ECG When compared with ECG of 15-JAN-2020 06:19, Sinus rhythm has replaced Electronic atrial pacemaker Confirmed by Jaycob Melo ([id number]) on 05/01/2020 7:01:55 AM Referred By: REFERRED SELF Confirmed By:Jaycob Melo
[2020-05-01] MEDS: BUDESONIDE 0.5 MG/2 ML VIAL (PULMICORT) INH SCH ×2 (07:09→19:30)
[2020-05-01 08:34] LABS: Basophils # (auto) 0.02 K/uL (0-0.2); Basophils % (auto) 0.1 %; Eosinophils # (auto) 0.05 K/uL (0-0.5); Eosinophils % (auto) 0.3 %; Hemoglobin 12.8 g/dL (12.0-16.0); Immature Granulocytes # (auto) 0.08 K/uL (0.00-0.02); Immature Granulocytes % (auto) 0.4 %; Lymphocytes # (auto) 0.65 K/uL (1.2-3.4); Lymphocytes % (auto) 3.4 %; Mean Corpuscular Hgb Conc 30.5 g/dL (32-36); Mean Corpuscular Volume 85.2 fL (80-100); Monocytes # (auto) 1.18 K/uL (0.11-0.59); Monocytes % (auto) 6.2 %; Neutrophils # (auto) 17.08 K/uL (1.4-6.5); Neutrophils % (auto) 89.6 %; Platelet Count 214 K/uL (130-400); Red Blood Count 4.93 M/uL (4.2-5.4); White Blood Count 19.06 K/uL (4.8-10.8)
[2020-05-01] MEDS: GABAPENTIN 300 MG CAP PO SCH ×3 (08:54→21:01)
[2020-05-01] MEDS: METOPROLOL SUCC 50MG EXT REL TAB PO SCH ×2 (08:55→21:00)
[2020-05-01] MEDS: VERAPAMIL HCL 40 MG TAB PO SCH ×4 (08:55→21:00)
[2020-05-01] MEDS: ASPIRIN 81 MG ECTAB PO SCH (08:56)
[2020-05-01] MEDS: DULOXETINE HCL 30 MG CAP PO SCH (08:56)
[2020-05-01] MEDS: FAMOTIDINE 20 MG TAB PO SCH ×2 (08:56→21:00)
[2020-05-01] MEDS: DULOXETINE HCL 60 MG CAP PO SCH (08:56)
[2020-05-01] MEDS: ATORVASTATIN 40 MG TAB PO SCH (08:56)
[2020-05-01] MEDS: PANTOprazole 40 MG TAB PO SCH (08:57)
[2020-05-01] MEDS ORDERED: FLUTICASONE/VILANTEROL 100/25MCG 14 PUFFS/INHALER INH PRN (09:00)
[2020-05-01] MEDS: INSULIN 70% ASPART PROTAMINE/30% ASPART SC SCH ×2 (09:02→17:42)
[2020-05-01 09:07] LABS: BUN Creatinine Ratio 26.1 (10-20); Calcium 9.5 mg/dl (8.5-10.1); Creatinine Clr Calc Pharmacy 25.6 ml/min; Est GFR (African American) 29.5; Est GFR (Non-African American) 25.5; Magnesium 1.9 mg/dl (1.8-2.4); Potassium 4.6 mmol/L (3.5-5.1)
[2020-05-01 09:58] LABS: Estimated Average Glucose 148 mg/dl; Hemoglobin A1C 6.8 % (4.5-5.6)
[2020-05-01] MEDS ORDERED: SUMAtriptan succinate 50 MG TAB PO PRN (12:54)
[2020-05-01] MEDS: SUMAtriptan succinate 50 MG TAB PO PRN ×2 (13:47→16:25)
--- NOTE | 2020-05-01 14:19 | Hospitalist Progress Note ---
Date of Service May 02, 2020 Assessment & Plan (1) Acute pyelonephritis: History of chronic UPJ obstruction on right with hydronephrosis and was admitted with right flank pain Noted to have pyelonephritis involving the right side on CAT scan and UA was suggestive of infection Has been getting intravenous ceftriaxone Blood and urine culture grew gram-negative bacilli-awaiting further identification and sensitivity Elevated white count secondary in the count has been improving We will continue current antibiotic and the patient is clinically little better Urine culture is growing Klebsiella pneumoniae and is sensitive to ceftriaxone Clinically better but he still has right flank pain Gram-negative bacilli bacteremia Await further sensitivity We will continue ceftriaxone intravenously for now (2) Acute kidney injury superimposed on chronic kidney disease: Acute on chronic kidney impairment is likely secondary to dehydration and complicated by infection Baseline creatinine is 1.3 and now it is 2.1 on admission Minimal improvement with IV fluid at 2.04 as of 05/01/2020 We will continue IV fluid and monitor PRP Renal function has been improving Hyperkalemia Secondary to OSBALDO Received Kayexalate Repeat level is 4.6 as of 05/01/2020 (3) Right flank pain: Secondary pyelonephritis with hydronephrosis secondary to right UPJ obstruction since childhood Right flank pain remains but is improving (4) Hypertrophic cardiomyopathy: Has AICD placed No acute symptoms (5) CHF (congestive heart failure): History of CHF Not showing any evidence of fluid overload We will monitor fluid balance (6) CADENCE (obstructive sleep apnea): History of chronic respiratory failure Has been on home oxygen (7) Migraine headache: Complaining severe headache involving the right side Has been on sumatriptan as an outpatient We will continue Headache was not controlled with sumatriptan and oral pain medication Tried intravenous Tylenol and that has been working (8) Depression with anxiety: We will continue current medications DVT profile Subcu heparin CODE STATUS Full Admission and Anticipated Discharge Date Admission Date: May 01, 2020 Subjective The patient was seen and examined in medical telemetry unit She has multiple comorbid medical condition including persistent right hydronephrosis She was admitted with pyelonephritis Has been feeling a little better but complains of severe headache on the right side of the head with history of migraine Denies any nausea no vomiting, no fever and/or chills 05/02/2020 The patient was seen and examined in the medical telemetry unit She has been feeling a little better but he still has right flank and back pain Her headache seems to be improving Denies any fever and/or chills Review of Systems Review of Systems: All systems reviewed and are unremarkable except as noted below Constitutional: + fatigue and + weakness; no chills Genitourinary: + flank pain (Right flank fullness and pain on palpation) Neurologic: + headache(s) (Has history of migraine and complains to have right-sided headache without any associated symptoms) Physical Exam Physical Exam: Sitting on the bed with minimal discomfort due to headache and back pain Constitutional: well developed, well nourished, + acute distress (Headache with back pain), + ill appearing and + obese Eyes: PERRL, conjunctivae normal, anicteric sclerae ENMT: external ear and nose normal, oropharynx normal Neck: trachea midline, no thyromegaly Respiratory: normal respiratory effort; no respiratory distress Auscultation: lungs clear to auscultation bilaterally Cardiovascular: Rate/Rhythm: regular rate and regular rhythm Heart Sounds: no murmur Gastrointestinal (Abdomen): Inspection/Auscultation: abdomen normal to i nspection and normal bowel sounds; abdomen not distended Percussion/Palpation: + abdomen tender (Right renal angle is full and tender on palpation) Musculoskeletal: Not involving any joints Neurologic: moves all extremities; no focal motor deficits Complains persistent headache involving the right side of the head Lymphatic: no cervical or axillary lymphadenopathy Results & Data Results & Data ([facility]) Vital Signs (Past 12 Hours) Vital Signs Temp Pulse Pulse Resp BP Pulse Ox 05/01/20 11:21 36.8 C 78 18 113/67 96 05/01/20 07:31 71 05/01/20 07:12 74 16 90 05/01/20 07:02 37 C 73 16 109/69 92 05/01/20 04:16 36.6 C 75 20 118/62 98 05/01/20 02:22 36.9 C 72 16 113/61 97 Laboratory Results Short CBC 04/30/20 05/01/20 Range/Units 21:08 08:16 WBC 23.45 H 19.06 H (4.8-10.8) K/uL Hgb 13.3 12.8 (12.0-16.0) g/dL Hct 40.9 42.0 (37-47) % Plt Count 237 214 (130-400) K/uL [facility] 04/30/20 05/01/20 21:08 08:16 Sodium 135 L 136 Potassium 5.4 H 4.6 Chloride 103 107 Carbon Dioxide 22 21 BUN 48 H 53 H Creatinine 2.11 H 2.04 H Glucose 67 L 110 H Calcium 9.6 9.5 Cardiac Enzymes 04/30/20 Range/Units 21:08 Troponin I 0.122 H* (0-0.045) ng/ml Liver Function 04/30/20 Range/Units 21:08 Total Bilirubin 0.9 (0.2-1) mg/dl AST 23 (15-37) U/L ALT 27 (12-78) U/L Alkaline Phosphatase 146 H (45-117) U/L Albumin 3.6 (3.4-5.0) gm/dl Urine 04/30/20 Range/Units 20:30 Urine Color Yellow Urine Appearance Turbid A (Clear) Urine pH 5.5 (4.5-7.5) Ur Specific [place] 1.015 (1.000-1.030) Urine Protein 2+ H (Negative) Urine Glucose (UA) Negative (Negative) Diagnostic Findings Short CBC 05/02/20 Range/Units 08:18 WBC 8.79 (4.8-10.8) K/uL Hgb 11.4 L (12.0-16.0) g/dL Hct 36.6 L (37-47) % Plt Count 156 (130-400) K/uL [facility] 05/02/20 08:18 Sodium 139 Potassium 3.8 D Chloride 107 Carbon Dioxide 23 BUN 42 H Creatinine 1.93 H Glucose 95 Calcium 8.9 Liver Function 05/02/20 Range/Units 08:18 Total Bilirubin 0.5 (0.2-1) mg/dl AST 37 (15-37) U/L ALT 31 (12-78) U/L Alkaline Phosphatase 198 H (45-117) U/L Albumin 2.7 L (3.4-5.0) gm/dl Medications Administered Current Inpatient Medications Acetaminophen (Tylenol) 650 mg PO Q4H PRN PRN Reason: pain/fever Stop: 05/31/20 03:15 Last Admin: 05/02/20 03:46 Dose: 650 mg Documented by: Acetaminophen (Ofirmev) 1,000 mg IV Q8H PRN PRN Reason: Headache Stop: 05/04/20 17:26 Last Admin: 05/01/20 17:39 Dose: 1,000 mg Documented by: Albuterol (Ventolin Hfa) 2 puffs INH Q4H PRN PRN Reason: Wheezing Stop: 05/31/20 03:15 Albuterol (Ventolin 0.083% 2.5mg/3ml) 2.5 mg INH Q4H PRN PRN Reason: Wheezing Stop: 05/31/20 03:15 Aspirin ([facility]ab) [facility] Stop: 05/31/20 08:59 Last Admin: 05/02/20 08:08 Dose: 81 mg Documented by: Atorvastatin Calcium (Lipitor) 40 mg PO QAM [facility] Stop: 05/31/20 08:59 Last Admin: 05/02/20 08:08 Dose: 40 mg Documented by: Budesonide (Pulmicort Respules) 0.5 mg INH BIDR [facility] Stop: 05/31/20 06:59 Last Admin: 05/02/20 07:06 Dose: 0.5 mg Documented by: Dextrose (Dextrose 50%) 25 - 50 ml IV UD PRN; Protocol PRN Reason: Hypoglycemia Protocol Stop: 05/31/20 03:44 Diphenoxylate HCl/Atropine (Lomotil) 1 tab PO QID PRN PRN Reason: Diarrhea Stop: 05/31/20 03:15 Duloxetine HCl (Cymbalta) 60 mg PO [facility] Stop: 05/31/20 08:59 Last Admin: 05/02/20 08:08 Dose: 60 mg Documented by: Duloxetine HCl (Cymbalta) [facility] Stop: 05/31/20 08:59 Last Admin: 05/02/20 08:08 Dose: 30 mg Documented by: Famotidine (Pepcid) 20 mg PO BID [facility] Stop: 05/31/20 08:59 Last Admin: 05/02/20 08:09 Dose: 20 mg Documented by: Fluticasone/Vilanterol (Breo Ellipta 100/25 Mcg Inh) 1 puffs INH DAILY PRN PRN Reason: Shortness Of Breath Stop: 05/31/20 08:59 Folic Acid (Folvite) 1 mg PO [facility] Stop: 05/31/20 20:59 Last Admin: 05/01/20 21:01 Dose: 1 mg Documented by: Gabapentin (Neurontin) 300 mg PO TID [facility] Stop: 05/31/20 08:59 Last Admin: 05/02/20 08:08 Dose: 300 mg Documented by: Glucagon (Glucagen) 1 mg SQ UD PRN; Protocol PRN Reason: Hypoglycemia Protocol Stop: 05/31/20 03:44 Glucose (Glucose 40%) 15 - 30 gm PO UD PRN; Protocol PRN Reason: Hypoglycemia Protocol Stop: 05/31/20 03:44 Glucose (Dex4 Glucose) 4 - 8 tabs PO UD PRN; Protocol PRN Reason: Hypoglycemia Protocol Stop: 05/31/20 03:44 Ceftriaxone Sodium 1,000 mg/ (Dextrose) 50 mls @ 100 mls/hr IV Q24H [facility]; Protocol Stop: 05/09/20 22:29 Last Infusion: 05/01/20 21:28 Dose: Infused Documented by: Sodium Chloride (Nss 1000ml) 1,000 mls @ 50 mls/hr IV .Q20H [facility] Stop: 05/31/20 03:15 Last Admin: 05/02/20 00:39 Dose: 50 mls/hr Documented by: Insulin Aspart (Novolog Mix 70/30) 55 units SC QDB [facility] Stop: 05/31/20 07:29 Last Admin: 05/02/20 08:57 Dose: 55 units Documented by: Insulin Aspart (Novolog Mix 70/30) 25 units SC QDD [facility] Stop: 05/31/20 16:29 Last Admin: 05/01/20 17:42 Dose: 25 units Documented by: Metoprolol Succinate (Toprol Xl) 100 mg PO BID [facility] Stop: 05/31/20 08:59 Last Admin: 05/02/20 08:09 Dose: 100 mg Documented by: Mirtazapine (Remeron Solutab) 45 mg PO HS [facility] Stop: 05/31/20 20:59 Last Admin: 05/01/20 21:01 Dose: 45 mg Documented by: Miscellaneous (Carbohydrates For Hypoglycemia) 15 - 30 gm PO UD PRN PRN Reason: Hypoglycemia Treatment Stop: 05/31/20 03:44 Morphine Sulfate (Morphine Sulfate) 2 mg IV Q3H PRN PRN Reason: Pain Stop: 05/15/20 03:15 Last Admin: 05/01/20 11:19 Dose: 2 mg Documented by: Nitroglycerin (Nitrostat) 0.4 mg SL UD PRN PRN Reason: Chest Pain Stop: 05/31/20 03:15 Ondansetron HCl (Zofran) 4 mg IV Q6H PRN PRN Reason: Nausea Stop: 05/31/20 03:15 Pantoprazole Sodium (Protonix) 40 mg PO QAM [facility] Stop: 05/31/20 08:59 Last Admin: 05/02/20 08:09 Dose: 40 mg Documented by: Ropinirole HCl (Requip) 0.5 mg PO HS [facility] Stop: 05/31/20 20:59 Last Admin: 05/01/20 21:01 Dose: 0.5 mg Documented by: Sumatriptan Succinate (Imitrex) 50 mg PO UD PRN PRN Reason: Migraine Headache Stop: 05/31/20 03:15 Last Admin: 05/01/20 16:25 Dose: 50 mg Documented by: Sumatriptan Succinate (Imitrex) 50 mg PO UD PRN PRN Reason: Migraine Headache Stop: 05/31/20 12:53 Verapamil HCl (Calan) 40 mg PO QID [facility] Stop: 05/31/20 08:59 Last Admin: 05/02/20 08:07 Dose: 40 mg Documented by:
[2020-05-01] MEDS: ACETAMINOPHEN 325 MG TAB PO PRN (15:34)
[2020-05-01] MEDS ORDERED: ACETAMINOPHEN 1000 MG/100 ML IV IV PRN (17:27)
[2020-05-01] MEDS: cefTRIAXone SODIUM 1,000 MG in DEXTROSE 5% 50 ML IV SCH (20:58)
[2020-05-01] MEDS: MIRTAZAPINE SOLTAB 15 MG PO SCH (21:01)
[2020-05-01] MEDS: ROPINIROLE HCL 0.25 MG TABLET PO SCH (21:01)
[2020-05-01] MEDS: FOLIC ACID 1 MG TAB PO SCH (21:01)
[2020-05-02] MEDS: SODIUM CHLORIDE 0.9% 1000ML 1,000 ML IV SCH ×2 (00:39→20:07)
[2020-05-02] MEDS: ACETAMINOPHEN 325 MG TAB PO PRN (03:46)
[2020-05-02] MEDS: BUDESONIDE 0.5 MG/2 ML VIAL (PULMICORT) INH SCH ×2 (07:06→17:59)
[2020-05-02] MEDS: VERAPAMIL HCL 40 MG TAB PO SCH ×4 (08:07→20:12)
[2020-05-02] MEDS: DULOXETINE HCL 60 MG CAP PO SCH (08:08)
[2020-05-02] MEDS: GABAPENTIN 300 MG CAP PO SCH ×3 (08:08→20:13)
[2020-05-02] MEDS: DULOXETINE HCL 30 MG CAP PO SCH (08:08)
[2020-05-02] MEDS: ASPIRIN 81 MG ECTAB PO SCH (08:08)
[2020-05-02] MEDS: ATORVASTATIN 40 MG TAB PO SCH (08:08)
[2020-05-02] MEDS: METOPROLOL SUCC 50MG EXT REL TAB PO SCH ×2 (08:09→20:13)
[2020-05-02] MEDS: FAMOTIDINE 20 MG TAB PO SCH ×2 (08:09→20:12)
[2020-05-02] MEDS: PANTOprazole 40 MG TAB PO SCH (08:09)
[2020-05-02 08:41] LABS: Basophils # (auto) 0.01 K/uL (0-0.2); Basophils % (auto) 0.1 %; Hematocrit (blood only) 36.6 % (37-47); Hemoglobin 11.4 g/dL (12.0-16.0); Immature Granulocytes # (auto) 0.03 K/uL (0.00-0.02); Immature Granulocytes % (auto) 0.3 %; Lymphocytes # (auto) 0.46 K/uL (1.2-3.4); Lymphocytes % (auto) 5.2 %; Mean Corpuscular Hemoglobin 26.7 pg (25-34); Mean Corpuscular Hgb Conc 31.1 g/dL (32-36); Mean Corpuscular Volume 85.7 fL (80-100); Mean Platelet Volume 8.7 fL (7.4-10.4); Monocytes # (auto) 0.38 K/uL (0.11-0.59); Monocytes % (auto) 4.3 %; Neutrophils # (auto) 7.91 K/uL (1.4-6.5); Neutrophils % (auto) 90.1 %; Platelet Count 156 K/uL (130-400); RDW Coefficient of Variation 17.4 % (11.5-14.5); RDW Standard Deviation 54.5 fL (36.4-46.3); Red Blood Count 4.27 M/uL (4.2-5.4); White Blood Count 8.79 K/uL (4.8-10.8)
[2020-05-02 08:56] LABS: Albumin Level 2.7 gm/dl (3.4-5.0); BUN Creatinine Ratio 21.9 (10-20); Calcium 8.9 mg/dl (8.5-10.1); Creatinine Clr Calc Pharmacy 27.2 ml/min; Est GFR (African American) 31.6; Est GFR (Non-African American) 27.2; Potassium 3.8 mmol/L (3.5-5.1)
[2020-05-02] MEDS: INSULIN 70% ASPART PROTAMINE/30% ASPART SC SCH ×2 (08:57→17:56)
[2020-05-02 09:04] LABS: Albumin Globulin Ratio 0.7 (0.9-2); Bilirubin,Total 0.5 mg/dl (0.2-1); Globulin 4.1 gm/dl (2.5-4.0); Total Protein 6.8 gm/dl (6.4-8.2)
[2020-05-02] MEDS: SUMAtriptan succinate 50 MG TAB PO PRN ×2 (14:32→17:50)
[2020-05-02] MEDS: MIRTAZAPINE SOLTAB 15 MG PO SCH (20:13)
[2020-05-02] MEDS: FOLIC ACID 1 MG TAB PO SCH (20:13)
[2020-05-02] MEDS: ROPINIROLE HCL 0.25 MG TABLET PO SCH (20:13)
[2020-05-02] MEDS: cefTRIAXone SODIUM 1,000 MG in DEXTROSE 5% 50 ML IV SCH (21:43)
[2020-05-03 06:39] LABS: Basophils # (auto) 0.01 K/uL (0-0.2); Basophils % (auto) 0.2 %; Eosinophils # (auto) 0.04 K/uL (0-0.5); Eosinophils % (auto) 0.7 %; Hematocrit (blood only) 32.1 % (37-47); Hemoglobin 10.2 g/dL (12.0-16.0); Immature Granulocytes # (auto) 0.02 K/uL (0.00-0.02); Immature Granulocytes % (auto) 0.4 %; Lymphocytes # (auto) 0.53 K/uL (1.2-3.4); Lymphocytes % (auto) 9.9 %; Mean Corpuscular Hgb Conc 31.8 g/dL (32-36); Mean Corpuscular Volume 84.9 fL (80-100); Mean Platelet Volume 9.3 fL (7.4-10.4); Monocytes # (auto) 0.52 K/uL (0.11-0.59); Monocytes % (auto) 9.7 %; Neutrophils # (auto) 4.23 K/uL (1.4-6.5); Neutrophils % (auto) 79.1 %; Platelet Count 147 K/uL (130-400); RDW Coefficient of Variation 17.6 % (11.5-14.5); RDW Standard Deviation 54.7 fL (36.4-46.3); Red Blood Count 3.78 M/uL (4.2-5.4); White Blood Count 5.35 K/uL (4.8-10.8)
[2020-05-03] MEDS: BUDESONIDE 0.5 MG/2 ML VIAL (PULMICORT) INH SCH ×2 (07:10→19:23)
[2020-05-03 07:16] LABS: Calcium 8.1 mg/dl (8.5-10.1); Creatinine Clr Calc Pharmacy 34.6 ml/min; Est GFR (African American) 42.1; Est GFR (Non-African American) 36.4; Magnesium 2.1 mg/dl (1.8-2.4); Potassium 3.7 mmol/L (3.5-5.1)
[2020-05-03] MEDS: ATORVASTATIN 40 MG TAB PO SCH (08:27)
[2020-05-03] MEDS: DULOXETINE HCL 30 MG CAP PO SCH (08:27)
[2020-05-03] MEDS: VERAPAMIL HCL 40 MG TAB PO SCH ×4 (08:27→20:43)
[2020-05-03] MEDS: FAMOTIDINE 20 MG TAB PO SCH ×2 (08:27→20:48)
[2020-05-03] MEDS: DULOXETINE HCL 60 MG CAP PO SCH (08:27)
[2020-05-03] MEDS: PANTOprazole 40 MG TAB PO SCH (08:28)
[2020-05-03] MEDS: GABAPENTIN 300 MG CAP PO SCH ×3 (08:28→20:43)
[2020-05-03] MEDS: ASPIRIN 81 MG ECTAB PO SCH (08:28)
[2020-05-03] MEDS: METOPROLOL SUCC 50MG EXT REL TAB PO SCH ×2 (08:28→20:45)
[2020-05-03] MEDS: INSULIN 70% ASPART PROTAMINE/30% ASPART SC SCH ×2 (08:32→17:16)
[2020-05-03] MEDS: INSULIN ASPART 100 UNITS/ML 3 ML PEN SC SCH ×4 (08:33→20:59)
[2020-05-03] MEDS: SODIUM CHLORIDE 0.9% 1000ML 1,000 ML IV SCH (14:29)
--- NOTE | 2020-05-03 15:17 | Hospitalist Progress Note ---
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 and was admitted with right flank pain Noted to have pyelonephritis involving the right side on CAT scan and UA was suggestive of infection Has been getting intravenous ceftriaxone Blood and urine culture grew gram-negative bacilli-awaiting further identification and sensitivity Elevated white count secondary in the count has been improving We will continue current antibiotic and the patient is clinically little better Urine culture is growing Klebsiella pneumoniae and is sensitive to ceftriaxone Clinically better but he still has right flank pain No blood and urine culture grew pseudomonas aeruginosa and is sensitive to ceftriaxone Will put a PICC line and continue intravenous ceftriaxone for a total of 14 days We will get PT and OT evaluation Likely discharge tomorrow Gram-negative bacilli bacteremia Await further sensitivity We will continue ceftriaxone intravenously for now As above (2) Acute kidney injury superimposed on chronic kidney disease: Acute on chronic kidney impairment is likely secondary to dehydration and complicated by infection Baseline creatinine is 1.3 and now it is 2.1 on admission Minimal improvement with IV fluid at 2.04 as of 05/01/2020 We will continue IV fluid and monitor PRP Renal function has been improving-creatinine is improved to 1.52 as of 05/03/2020 Hyperkalemia Secondary to OSBALDO Received Kayexalate Repeat level is 4.6 as of 05/01/2020 Potassium has been normalized (3) Right flank pain: Secondary pyelonephritis with hydronephrosis secondary to right UPJ obstruction since childhood Right flank pain is much improved (4) Hypertrophic cardiomyopathy: Has AICD placed No acute symptoms (5) CHF (congestive heart failure): History of CHF Not showing any evidence of fluid overload We will monitor fluid balance (6) CADENCE (obstructive sleep apnea): History of chronic respiratory failure Has been on home oxygen (7) Migraine headache: Complaining severe headache involving the right side Has been on sumatriptan as an outpatient We will continue Headache was not controlled with sumatriptan and oral pain medication Tried intravenous Tylenol and that has been working (8) Depression with anxiety: We will continue current medications DVT profile Subcu heparin CODE STATUS Full Admission and Anticipated Discharge Date Admission Date: May 01, 2020 Subjective The patient was seen and examined in medical telemetry unit She has multiple comorbid medical condition including persistent right hydronephrosis She was admitted with pyelonephritis Has been feeling a little better but complains of severe headache on the right side of the head with history of migraine Denies any nausea no vomiting, no fever and/or chills 05/02/2020 The patient was seen and examined in the medical telemetry unit She has been feeling a little better but he still has right flank and back pain Her headache seems to be improving Denies any fever and/or chills 05/03/2020 The patient was seen and examined in medical telemetry unit She has been weak and tired and he still complains to have some pain in right flank and back Denies any fever and/or chills Denies any nausea and/or vomiting Review of Systems Review of Systems: All systems reviewed and are unremarkable except as noted below Constitutional: + fatigue and + weakness; no chills Genitourinary: + flank pain (Right flank fullness and pain on palpation) Neurologic: + headache(s) (Headache has improved) Physical Exam Physical Exam: Sitting on the bed with minimal discomfort due to back pain Constitutional: well developed, well nourished, + acute distress (Headache with back pain), + ill appearing and + obese Eyes: PERRL, conjunctivae normal, anicteric sclerae ENMT: external ear and nose normal, oropharynx normal Neck: trachea midline, no thyromegaly Respiratory: normal respiratory effort; no respiratory distress Auscultation: lungs clear to auscultation bilaterally Cardiovascular: Rate/Rhythm: regular rate and regular rhythm Heart Sounds: no murmur Gastrointestinal (Abdomen): Inspection/Auscultation: abdomen normal to inspection and normal bowel sounds; abdomen not distended Percussion/Palpation: + abdomen tender (Right renal angle is full and tender on palpation) Right CVA tenderness has improved a lot Musculoskeletal: No acute arthritis involving any joints Neurologic: moves all extremities; no focal motor deficits Alert, awake and oriented x3 Lymphatic: no cervical or axillary lymphadenopathy Results & Data Results & Data ([facility]) Vital Signs (Past 12 Hours) Vital Signs Temp Pulse Pulse Resp BP Pulse Ox 05/03/20 12:14 66 05/03/20 11:22 36.5 C 61 18 110/70 99 05/03/20 07:38 36.5 C 73 18 111/64 100 05/03/20 07:13 72 14 93 05/03/20 07:05 72 Laboratory Results Short CBC 05/03/20 Range/Units 06:00 WBC 5.35 (4.8-10.8) K/uL Hgb 10.2 L (12.0-16.0) g/dL Hct 32.1 L (37-47) % Plt Count 147 (130-400) K/uL BMP 05/03/20 06:00 Sodium 142 Potassium 3.7 Chloride 111 H Carbon Dioxide 25 BUN 35 H Creatinine 1.52 H D Glucose 109 H Calcium 8.1 L Medications Administered Current Inpatient Medications Acetaminophen (Tylenol) 650 mg PO Q4H PRN PRN Reason: pain/fever Stop: 05/31/20 03:15 Last Admin: 05/02/20 03:46 Dose: 650 mg Documented by: Acetaminophen (Ofirmev) 1,000 mg IV Q8H PRN PRN Reason: Headache Stop: 05/04/20 17:26 Last Admin: 05/01/20 17:39 Dose: 1,000 mg Documented by: Albuterol (Ventolin Hfa) 2 puffs INH Q4H PRN PRN Reason: Wheezing Stop: 05/31/20 03:15 Albuterol (Ventolin 0.083% 2.5mg/3ml) 2.5 mg INH Q4H PRN PRN Reason: Wheezing Stop: 05/31/20 03:15 Last Admin: 05/02/20 17:59 Dose: 2.5 mg Documented by: Aspirin (Ecotrin Ectab) 81 mg PO QAM [facility] Stop: 05/31/20 08:59 Last Admin: 05/03/20 08:28 Dose: 81 mg Documented by: Atorvastatin Calcium (Lipitor) [facility] Stop: 05/31/20 08:59 Last Admin: 05/03/20 08:27 Dose: 40 mg Documented by: Budesonide (Pulmicort Respules) 0.5 mg INH BIDR [facility] Stop: 05/31/20 06:59 Last Admin: 05/03/20 07:10 Dose: 0.5 mg Documented by: Dextrose (Dextrose 50%) 25 - 50 ml IV UD PRN; Protocol PRN Reason: Hypoglycemia Protocol Stop: 05/31/20 03:44 Diphenoxylate HCl/Atropine (Lomotil) 1 tab PO QID PRN PRN Reason: Diarrhea Stop: 05/31/20 03:15 Duloxetine HCl (Cymbalta) 60 mg PO QAM [facility] Stop: 05/31/20 08:59 Last Admin: 05/03/20 08:27 Dose: 60 mg Documented by: Duloxetine HCl (Cymbalta) 30 mg PO QAM [facility] Stop: 05/31/20 08:59 Last Admin: 05/03/20 08:27 Dose: 30 mg Documented by: Famotidine (Pepcid) 20 mg PO BID [facility] Stop: 05/31/20 08:59 Last Admin: 05/03/20 08:27 Dose: 20 mg Documented by: Fluticasone/Vilanterol (Breo Ellipta 100/25 Mcg Inh) 1 puffs INH DAILY PRN PRN Reason: Shortness Of Breath Stop: 05/31/20 08:59 Folic Acid (Folvite) 1 mg PO HS [facility] Stop: 05/31/20 20:59 Last Admin: 05/02/20 20:13 Dose: 1 mg Documented by: Gabapentin (Neurontin) 300 mg PO TID [facility] Stop: 05/31/20 08:59 Last Admin: 05/03/20 14:29 Dose: 300 mg Documented by: Glucagon (Glucagen) 1 mg SQ UD PRN; Protocol PRN Reason: Hypoglycemia Protocol Stop: 05/31/20 03:44 Glucose (Glucose 40%) 15 - 30 gm PO UD PRN; Protocol PRN Reason: Hypoglycemia Protocol Stop: 05/31/20 03:44 Glucose (Dex4 Glucose) 4 - 8 tabs PO UD PRN; Protocol PRN Reason: Hypoglycemia Protocol Stop: 05/31/20 03:44 Ceftriaxone Sodium 1,000 mg/ (Dextrose) 50 mls @ 100 mls/hr IV Q24H [facility]; Protocol Stop: 05/09/20 22:29 Last Infusion: 05/02/20 22:14 Dose: Infused Documented by: Sodium Chloride (Nss 1000ml) 1,000 mls @ 50 mls/hr IV .Q20H [facility] Stop: 05/31/20 03:15 Last Admin: 05/03/20 14:29 Dose: 50 mls/hr Documented by: Insulin Aspart (Novolog Mix 70/30) 55 units SC QDB [facility] Stop: 05/31/20 07:29 Last Admin: 05/03/20 08:32 Dose: 55 units Documented by: Insulin Aspart (Novolog Mix 70/30) 25 units SC QDD [facility] Stop: 05/31/20 16:29 Last Admin: 05/02/20 17:56 Dose: 25 units Documented by: Insulin Aspart (Novolog Flexpen) 0 units SC ACHS [facility] Stop: 06/02/20 07:29 Last Admin: 05/03/20 12:40 Dose: Not Given Documented by: Metoprolol Succinate (Toprol Xl) 100 mg PO BID [facility] Stop: 05/31/20 08:59 Last Admin: 05/03/20 08:28 Dose: 100 mg Documented by: Mirtazapine (Remeron Solutab) 45 mg PO HS [facility] Stop: 05/31/20 20:59 Last Admin: 05/02/20 20:13 Dose: 45 mg Documented by: Miscellaneous (Carbohydrates For Hypoglycemia) 15 - 30 gm PO UD PRN PRN Reason: Hypoglycemia Treatment Stop: 05/31/20 03:44 Morphine Sulfate (Morphine Sulfate) 2 mg IV Q3H PRN PRN Reason: Pain Stop: 05/15/20 03:15 Last Admin: 05/01/20 11:19 Dose: 2 mg Documented by: Nitroglycerin (Nitrostat) 0.4 mg SL UD PRN PRN Reason: Chest Pain Stop: 05/31/20 03:15 Ondansetron HCl (Zofran) 4 mg IV Q6H PRN PRN Reason: Nausea Stop: 05/31/20 03:15 Pantoprazole Sodium (Protonix) 40 mg PO QAM [facility] Stop: 05/31/20 08:59 Last Admin: 05/03/20 08:28 Dose: 40 mg Documented by: Ropinirole HCl (Requip) 0.5 mg PO HS [facility] Stop: 05/31/20 20:59 Last Admin: 05/02/20 20:13 Dose: 0.5 mg Documented by: Sumatriptan Succinate (Imitrex) 50 mg PO UD PRN PRN Reason: Migraine Headache Stop: 05/31/20 03:15 Last Admin: 05/02/20 17:50 Dose: 50 mg Documented by: Sumatriptan Succinate (Imitrex) 50 mg PO UD PRN PRN Reason: Migraine Headache Stop: 05/31/20 12:53 Verapamil HCl (Calan) 40 mg PO QID [facility] Stop: 05/31/20 08:59 Last Admin: 05/03/20 12:39 Dose: 40 mg Documented by:
[2020-05-03] MEDS: ROPINIROLE HCL 0.25 MG TABLET PO SCH (20:43)
[2020-05-03] MEDS: FOLIC ACID 1 MG TAB PO SCH (20:43)
[2020-05-03] MEDS: MIRTAZAPINE SOLTAB 15 MG PO SCH (20:45)
[2020-05-03] MEDS: cefTRIAXone SODIUM 1,000 MG in DEXTROSE 5% 50 ML IV SCH (21:41)
[2020-05-04] MEDS: SUMAtriptan succinate 50 MG TAB PO PRN (02:19)
[2020-05-04] MEDS: BUDESONIDE 0.5 MG/2 ML VIAL (PULMICORT) INH SCH (07:16)
[2020-05-04] MEDS ORDERED: Nursing to Pharmacy Communication SCH (08:15)
[2020-05-04] MEDS: DULOXETINE HCL 30 MG CAP PO SCH (08:41)
[2020-05-04] MEDS: METOPROLOL SUCC 50MG EXT REL TAB PO SCH (08:41)
[2020-05-04] MEDS: ASPIRIN 81 MG ECTAB PO SCH (08:41)
[2020-05-04] MEDS: DULOXETINE HCL 60 MG CAP PO SCH (08:41)
[2020-05-04] MEDS: VERAPAMIL HCL 40 MG TAB PO SCH ×2 (08:41→12:32)
[2020-05-04] MEDS: GABAPENTIN 300 MG CAP PO SCH ×2 (08:41→12:32)
[2020-05-04] MEDS: ATORVASTATIN 40 MG TAB PO SCH (08:41)
[2020-05-04] MEDS: FAMOTIDINE 20 MG TAB PO SCH (08:41)
[2020-05-04] MEDS: PANTOprazole 40 MG TAB PO SCH (08:41)
[2020-05-04] MEDS: INSULIN ASPART 100 UNITS/ML 3 ML PEN SC SCH ×2 (08:43→12:19)
[2020-05-04] MEDS: INSULIN 70% ASPART PROTAMINE/30% ASPART SC SCH (08:45)
[2020-05-04] MEDS: cefTRIAXone SODIUM 1,000 MG in DEXTROSE 5% 50 ML IV SCH (09:40)
[2020-05-04] MEDS: SODIUM CHLORIDE 0.9% 1000ML 1,000 ML IV SCH (09:43)
--- NOTE | 2020-05-04 10:15 | Hospitalist Progress Note ---
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 and was admitted with right flank pain Noted to have pyelonephritis involving the right side on CAT scan and UA was suggestive of infection Has been getting intravenous ceftriaxone Blood and urine culture grew gram-negative bacilli-awaiting further identification and sensitivity Elevated white count secondary in the count has been improving We will continue current antibiotic and the patient is clinically little better Urine culture is growing Klebsiella pneumoniae and is sensitive to ceftriaxone Clinically better but he still has right flank pain No blood and urine culture grew pseudomonas aeruginosa and is sensitive to ceftriaxone Will put a PICC line and continue intravenous ceftriaxone for a total of 14 days We will get PT and OT evaluation-did well with therapy Urine and blood culture grew Klebsiella pneumoniae and not Pseudomonas as mentioned earlier We will continue intravenous antibiotic for a total of 14 days Discharged home this afternoon Gram-negative bacilli bacteremia Await further sensitivity We will continue ceftriaxone intravenously for now She will come to [facility] daily to finish her course of antibiotic (2) Acute kidney injury superimposed on chronic kidney disease: Acute on chronic kidney impairment is likely secondary to dehydration and complicated by infection Baseline creatinine is 1.3 and now it is 2.1 on admission Minimal improvement with IV fluid at 2.04 as of 05/01/2020 We will continue IV fluid and monitor PRP Renal function has been improving-creatinine is improved to 1.52 as of 05/03/2020 Hyperkalemia Secondary to OSBALDO Received Kayexalate Repeat level is 4.6 as of 05/01/2020 Potassium has been normalized (3) Right flank pain: Secondary pyelonephritis with hydronephrosis secondary to right UPJ obstruction since childhood Right flank pain is much improved (4) Hypertrophic cardiomyopathy: Has AICD placed No acute symptoms (5) CHF (congestive heart failure): History of CHF Not showing any evidence of fluid overload We will monitor fluid balance No signs and/or symptoms of fluid overload (6) CADENCE (obstructive sleep apnea): History of chronic respiratory failure Has been on home oxygen (7) Migraine headache: Complaining severe headache involving the right side Has been on sumatriptan as an outpatient We will continue Headache was not controlled with sumatriptan and oral pain medication Tried intravenous Tylenol and that has been working (8) Depression with anxiety: We will continue current medications DVT profile Subcu heparin CODE STATUS Full Discharge home this afternoon Has an appointment with her primary care physician within next 7 days Admission and Anticipated Discharge Date Admission Date: May 01, 2020 Subjective The patient was seen and examined in medical telemetry unit She has multiple comorbid medical condition including persistent right hydronephrosis She was admitted with pyelonephritis Has been feeling a little better but complains of severe headache on the right side of the head with history of migraine Denies any nausea no vomiting, no fever and/or chills 05/02/2020 The patient was seen and examined in the medical telemetry unit She has been feeling a little better but he still has right flank and back pain Her headache seems to be improving Denies any fever and/or chills 05/03/2020 The patient was seen and examined in medical telemetry unit She has been weak and tired and he still complains to have some pain in right flank and back Denies any fever and/or chills Denies any nausea and/or vomiting 05/04/2020 The patient was seen and examined in medical floor She has been feeling a lot better today Her right flank pain is improved and headache is improved to Remains generally weak and denies any fever and/or chills She is ready to be discharged this afternoon Review of Systems Review of Systems: All systems reviewed and are unremarkable except as noted below Constitutional: + weakness; no chills and no fatigue Genitourinary: + flank pain (Right flank fullness and pain on palpation-has improved a lot) Neurologic: + headache(s) (Headache has improved) Physical Exam Physical Exam: Sitting on the bed with minimal discomfort due to back pain Constitutional: well developed, well nourished, + acute distress (Headache with back pain), + ill appearing and + obese Eyes: PERRL, conjunctivae normal, anicteric sclerae ENMT: external ear and nose normal, oropharynx normal Neck: trachea midline, no thyromegaly Respiratory: normal respiratory effort; no respiratory distress Auscultation: lungs clear to auscultation bilaterally Cardiovascular: Rate/Rhythm: regular rate and regular rhythm Heart Sounds: no murmur Gastrointestinal (Abdomen): Inspection/Auscultation: abdomen normal to inspection and normal bowel sounds; abdomen not distended Percussion/Palpatio n: + abdomen tender (Minimal tenderness at right renal angle) Neurologic: moves all extremities; no focal motor deficits Alert, awake and oriented x3 Lymphatic: no cervical or axillary lymphadenopathy Results & Data Results & Data ([facility]) Vital Signs (Past 12 Hours) Vital Signs Temp Pulse Pulse Resp BP BP Pulse Ox 05/04/20 07:29 83 05/04/20 07:18 78 18 97 05/04/20 07:05 36.9 C 80 18 125/76 95 05/04/20 04:22 36.9 C 85 20 100/54 L 97 05/04/20 03:49 80 18 98 05/04/20 00:52 74 05/04/20 00:23 37.1 C 77 22 96/62 L 92 Laboratory Results Short CBC 04/30/20 05/01/20 05/02/20 Range/Units 21:08 08:16 08:18 Creatinine 2.11 H 2.04 H 1.93 H (0.6-1.2) mg/dl 05/03/20 Range/Units 06:00 Creatinine 1.52 H D (0.6-1.2) mg/dl Medications Administered Current Inpatient Medications Acetaminophen (Tylenol) 650 mg PO Q4H PRN PRN Reason: pain/fever Stop: 05/31/20 03:15 Last Admin: 05/02/20 03:46 Dose: 650 mg Documented by: Acetaminophen (Ofirmev) 1,000 mg IV Q8H PRN PRN Reason: Headache Stop: 05/04/20 17:26 Last Admin: 05/01/20 17:39 Dose: 1,000 mg Documented by: Albuterol (Ventolin Hfa) 2 puffs INH Q4H PRN PRN Reason: Wheezing Stop: 05/31/20 03:15 Last Admin: 05/04/20 03:47 Dose: 2 puffs Documented by: Albuterol (Ventolin 0.083% 2.5mg/3ml) 2.5 mg INH Q4H PRN PRN Reason: Wheezing Stop: 05/31/20 03:15 Last Admin: 05/02/20 17:59 Dose: 2.5 mg Documented by: Aspirin (Ecotrin Ectab) 81 mg PO [facility] Stop: 05/31/20 08:59 Last Admin: 05/04/20 08:41 Dose: 81 mg Documented by: Atorvastatin Calcium (Lipitor) 40 mg PO [facility] Stop: 05/31/20 08:59 Last Admin: 05/04/20 08:41 Dose: 40 mg Documented by: Budesonide (Pulmicort Respules) 0.5 mg INH BIDR [facility] Stop: 05/31/20 06:59 Last Admin: 05/04/20 07:16 Dose: 0.5 mg Documented by: Dextrose (Dextrose 50%) 25 - 50 ml IV UD PRN; Protocol PRN Reason: Hypoglycemia Protocol Stop: 05/31/20 03:44 Diphenoxylate HCl/Atropine (Lomotil) 1 tab PO QID PRN PRN Reason: Diarrhea Stop: 05/31/20 03:15 Duloxetine HCl (Cymbalta) 60 mg PO QAM [facility] Stop: 05/31/20 08:59 Last Admin: 05/04/20 08:41 Dose: 60 mg Documented by: Duloxetine HCl (Cymbalta) 30 mg PO QAM [facility] Stop: 05/31/20 08:59 Last Admin: 05/04/20 08:41 Dose: 30 mg Documented by: Famotidine (Pepcid) 20 mg PO BID [facility] Stop: 05/31/20 08:59 Last Admin: 05/04/20 08:41 Dose: 20 mg Documented by: Fluticasone/Vilanterol (Breo Ellipta 100/25 Mcg Inh) 1 puffs INH DAILY PRN PRN Reason: Shortness Of Breath Stop: 05/31/20 08:59 Folic Acid (Folvite) 1 mg PO HS [facility] Stop: 05/31/20 20:59 Last Admin: 05/03/20 20:43 Dose: 1 mg Documented by: Gabapentin (Neurontin) 300 mg PO TID [facility] Stop: 05/31/20 08:59 Last Admin: 05/04/20 08:41 Dose: 300 mg Documented by: Glucagon (Glucagen) 1 mg SQ UD PRN; Protocol PRN Reason: Hypoglycemia Protocol Stop: 05/31/20 03:44 Glucose (Glucose 40%) 15 - 30 gm PO UD PRN; Protocol PRN Reason: Hypoglycemia Protocol Stop: 05/31/20 03:44 Glucose (Dex4 Glucose) 4 - 8 tabs PO UD PRN; Protocol PRN Reason: Hypoglycemia Protocol Stop: 05/31/20 03:44 Ceftriaxone Sodium 1,000 mg/ (Dextrose) 50 mls @ 100 mls/hr IV Q24H [facility]; Protocol Stop: 05/09/20 22:29 Last Admin: 05/04/20 09:40 Dose: 100 mls/hr Documented by: Sodium Chloride (Nss 1000ml) 1,000 mls @ 50 mls/hr IV .Q20H [facility] Stop: 05/31/20 03:15 Last Admin: 05/04/20 09:43 Dose: 50 mls/hr Documented by: Insulin Aspart (Novolog Mix 70/30) 55 units SC QDB [facility] Stop: 05/31/20 07:29 Last Admin: 05/04/20 08:45 Dose: 55 units Documented by: Insulin Aspart (Novolog Mix 70/30) 25 units SC QDD [facility] Stop: 05/31/20 16:29 Last Admin: 05/03/20 17:16 Dose: 25 units Documented by: Insulin Aspart (Novolog Flexpen) 0 units SC ACHS [facility] [place] Stop: 06/02/20 07:29 Last Admin: 05/04/20 08:43 Dose: Not Given Documented by: Metoprolol Succinate (Toprol Xl) 100 mg PO BID [facility] Stop: 05/31/20 08:59 Last Admin: 05/04/20 08:41 Dose: 100 mg Documented by: Mirtazapine (Remeron Solutab) 45 mg PO HS [facility] Stop: 05/31/20 20:59 Last Admin: 05/03/20 20:45 Dose: 45 mg Documented by: Miscellaneous (Carbohydrates For Hypoglycemia) 15 - 30 gm PO UD PRN PRN Reason: Hypoglycemia Treatment Stop: 05/31/20 03:44 Morphine Sulfate (Morphine Sulfate) 2 mg IV Q3H PRN PRN Reason: Pain Stop: 05/15/20 03:15 Last Admin: 05/01/20 11:19 Dose: 2 mg Documented by: Nitroglycerin (Nitrostat) 0.4 mg SL UD PRN PRN Reason: Chest Pain Stop: 05/31/20 03:15 Ondansetron HCl (Zofran) 4 mg IV Q6H PRN PRN Reason: Nausea Stop: 05/31/20 03:15 Pantoprazole Sodium (Protonix) 40 mg PO QAM [facility] Stop: 05/31/20 08:59 Last Admin: 05/04/20 08:41 Dose: 40 mg Documented by: Ropinirole HCl (Requip) 0.5 mg PO HS [facility] Stop: 05/31/20 20:59 Last Admin: 05/03/20 20:43 Dose: 0.5 mg Documented by: Sumatriptan Succinate (Imitrex) 50 mg PO UD PRN PRN Reason: Migraine Headache Stop: 05/31/20 03:15 Last Admin: 05/04/20 02:19 Dose: 50 mg Documented by: Sumatriptan Succinate (Imitrex) 50 mg PO UD PRN PRN Reason: Migraine Headache Stop: 05/31/20 12:53 Verapamil HCl (Calan) 40 mg PO QID [facility] Stop: 05/31/20 08:59 Last Admin: 05/04/20 08:41 Dose: 40 mg Documented by:
--- NOTE | 2020-05-04 17:15 | Discharge Summary ---
Date of Service May 04, 2020 Admission HPI Per Admitting Provider DICTATED BY: Mikey Mayberry MD DATE OF ADMISSION: 05/01/2020 CHIEF COMPLAINT: Right flank pain. HISTORY OF PRESENT ILLNESS: This is a 60-year-old female with past medical history significant for type 2 diabetes, chronic respiratory failure, on oxygen all the time, obstructive sleep apnea, noncompliant with CPAP use, history of hypertrophic obstructive cardiomyopathy, status post ICD, history of chronic diastolic congestive heart failure, hypertension, CAD, irritable bowel syndrome, morbid obesity, chronic kidney disease stage III, chronic migraines, history of chronic right hydronephrosis noted since 2013, seen by urology and it is suspected to be a UPJ obstruction from and no treatment planned as this is a chronic obstruction as per urology. The patient lives with her and daughter and grand kid, presents with right flank pain going for last couple of days. She thinks she has low low-grade fever at home. Has some mild burning with micturition. Has some small amount of hematuria about a week ago. She has chronic shortness of breath, uses oxygen all the time. Denies any chest pain, has some chronic cough, chronic sore throat and chronic runny nose, has some mild headache. Has some nausea, no vomiting. No rash. Appetite is okay. No dysphagia. Ambulates okay. Currently resting comfortably and hemodynamically stable. Imaging studies shows she has pyelonephritis. Admission Exam Per Admitting Provider GENERAL: The patient is obese, not in acute distress. VITAL SIGNS: Temperature 36.9, pulse 71, respiratory rate 21, blood pressure 124/69, oxygen 100% on 2 liters. HEENT: No pallor, no icterus. NECK: No JVD, no neck masses, no carotid bruits. CARDIOVASCULAR: S1, S2 heard, regular rate and rhythm, no murmur, no gallop. RESPIRATORY SYSTEM: Normal AP diameter. No accessory muscle use. No wheezing, no crackles. ABDOMEN: Soft, bowel sounds present. Mild abdominal discomfort. Mild right CVA tenderness. No distention. CENTRAL NERVOUS SYSTEM: Cranial nerves II-XII grossly intact. Nonfocal. EXTREMITIES: No edema, no erythema. Principal Diagnosis Acute pyelonephritis, Klebsiella pneumoniae bacteremia, acute on chronic kidney disease, controlled CHF, CADENCE on home O2, hypertrophic cardiomyopathy with AICD Discharge Exam Constitutional well developed, well nourished, + acute distress (Headache with back pain), + ill appearing and + obese Eyes PERRL, conjunctivae normal, anicteric sclerae ENMT external ear and nose normal, oropharynx normal Neck trachea midline, no thyromegaly Respiratory normal respiratory effort; no respiratory distress Auscultation: lungs clear to auscultation bilaterally Cardiovascular Rate/Rhythm: regular rate and regular rhythm Heart Sounds: no murmur Gastrointestinal (Abdomen) Inspection/Auscultation: abdomen normal to inspection and normal bowel sounds; abdomen not distended Percussion/Palpation: + abdomen tender (Minimal tenderness at right renal angle) Neurologic moves all extremities; no focal motor deficits Lymphatic no cervical or axillary lymphadenopathy Discharge Data Allergies Allergy/AdvReac Type Severity Reaction Status Date / Time Penicillins Allergy Intermediate Flushing, Verified 04/30/20 22:18 Itchiness Sulfa (Sulfonamide Allergy Intermediate Swelling Verified 04/30/20 22:18 Antibiotics) doxycycline Allergy Unknown Unknown Verified 04/30/20 22:18 adhesive AdvReac Intermediate Blistering Verified 04/30/20 22:18 Consultations 04/30/20 23:00 ED Decision to Admit Stat 05/01/20 03:16 Consult Case Management - Discharge Planning Routine Ordered Studies 04/30/20 22:06 CT abd pelvis wo con Stat Hospital Course (1) Acute pyelonephritis: History of chronic UPJ obstruction on right with hydronephrosis and was admitted with right flank pain Noted to have pyelonephritis involving the right side on CAT scan and UA was suggestive of infection Has been getting intravenous ceftriaxone Blood and urine culture grew gram-negative bacilli-awaiting further identification and sensitivity Elevated white count secondary in the count has been improving We will continue current antibiotic and the patient is clinically little better Urine culture is growing Klebsiella pneumoniae and is sensitive to ceftriaxone Clinically better but he still has right flank pain No blood and urine culture grew pseudomonas aeruginosa and is sensitive to ceftriaxone Will put a PICC line and continue intravenous ceftriaxone for a total of 14 days We will get PT and OT evaluation-did well with therapy Urine and blood culture grew Klebsiella pneumoniae and not Pseudomonas as mentioned earlier We will continue intravenous antibiotic for a total of 14 days Discharged home this afternoon Gram-negative bacilli bacteremia Await further sensitivity We will continue ceftriaxone intravenously for now She will come to [facility] daily to finish her course of antibiotic (2) Acute kidney injury superimposed on chronic kidney disease: Acute on chronic kidney impairment is likely secondary to dehydration and complicated by infection Baseline creatinine is 1.3 and now it is 2.1 on admission Minimal improvement with IV fluid at 2.04 as of 05/01/2020 We will continue IV fluid and monitor PRP Renal function has been improving-creatinine is improved to 1.52 as of 05/03/2020 Hyperkalemia Secondary to OSBALDO Received Kayexalate Repeat level is 4.6 as of 05/01/2020 Potassium has been normalized (3) Right flank pain: Secondary pyelonephritis with hydronephrosis secondary to right UPJ obstruction since childhood Right flank pain is much improved (4) Hypertrophic cardiomyopathy: Has AICD placed No acute symptoms (5) CHF (congestive heart failure): History of CHF Not showing any evidence of fluid overload We will monitor fluid balance No signs and/or symptoms of fluid overload (6) CADENCE (obstructive sleep apnea): History of chronic respiratory failure Has been on home oxygen (7) Migraine headache: Complaining severe headache involving the right side Has been on sumatriptan as an outpatient We will continue Headache was not controlled with sumatriptan and oral pain medication Tried intravenous Tylenol and that has been working (8) Depression with anxiety: We will continue current medications DVT profile Subcu heparin CODE STATUS Full Discharge home this afternoon Has an appointment with her primary care physician within next 7 days Total Time Total Time Spent Total Time Spent (In Minutes): 35 minutes Total Time Includes: Examination of the Patient, Discharge Planning, Medication Reconciliation and Communication With Other Providers Discharge Plan Discharge Items Patient Disposition: Home - Self-Care Reason For Visit: FLANK PAIN Discharge Diagnosis: Acute pyelonephritis, Klebsiella pneumoniae bacteremia, acute on chronic kidney disease, controlled CHF, CADENCE on home O2, hypertrophic cardiomyopathy with AICD Condition on Discharge: Good Activity: Resume your previous activity Non-emergency contact: Primary Care Provider Call non-emergency contact if: you have any medication questions and your symptoms worsen Follow-up/Referrals: Suad De León DO [Primary Care Provider] - 05/06/20 11:20 am (Please keep your appointment with your PCP 05/06/2020 11:20 AM Provider Suad De León DO Department Family Practice [facility] ) Diet: Carb Consistent or DM2 and Heart Healthy Addtl Attending Provider Instructions: Please take precaution to avoid fall Finish your course of antibiotic as an outpatient Try to drink more fluid as recommended Pending Studies at Discharge: No Stand-Alone Forms: My [facility], Smoking Cessation Medications and DC Order Prescriptions: Continued duloxetine 60 mg Capsule,Delayed Release(Dr/Ec) 60 mg PO QAM RF: 0 omeprazole 40 mg Capsule,Delayed Release(Dr/Ec) 40 mg PO QAM RF: 0 folic acid 1 mg Tablet 1 mg PO HS RF: 0 sumatriptan succinate 25 mg Tablet 50 mg PO DIRECTED PRN (Reason: Migraine Headache) RF: 0 metformin [Glucophage] 500 mg Tablet 1,000 mg PO BIDM RF: 0 gabapentin 300 mg capsule 300 mg PO TID RF: 0 albuterol sulfate [Ventolin HFA] 90 mcg/actuation Hfa Aerosol Inhaler 2 puff INHALATION Q4H PRN (Reason: Wheezing) RF: 0 ondansetron 4 mg tablet,disintegrating 4 mg PO Q8H PRN (Reason: Nausea) RF: 0 insulin lispro protamin-lispro [Humalog Mix 75-25 KwikPen] 100 unit/mL (75-25) insulin pen 55 unit subcut QDB RF: 0 insulin lispro protamin-lispro [Humalog Mix 75-25 KwikPen] 100 unit/mL (75-25) insulin pen 25 unit subcut QDD RF: 0 duloxetine 30 mg capsule,delayed release(DR/EC) 30 mg PO QAM RF: 0 Tradjenta 5 mg Tablet 0 mg PO QAM RF: 0 nitroglycerin [Nitrostat] 0.4 mg tablet, sublingual 0.4 mg sublingual DIRECTED PRN (Reason: Chest Pain) RF: 0 fluticasone propion-salmeterol [Advair Diskus] 500-50 mcg/dose Blister With Device 1 inh INHALATION Q12H PRN (Reason: Unknown) RF: 0 spironolactone [Aldactone] 25 mg Tablet 25 mg PO QAM RF: 0 metoprolol succinate 100 mg tablet extended release 24 hr 100 mg PO BID RF: 0 mirtazapine 45 mg Tablet 45 mg PO HS RF: 0 ropinirole 0.5 mg Tablet 0.5 mg PO HS RF: 0 famotidine 20 mg tablet 20 mg PO BID Qty: 20 RF: 0 atorvastatin [Lipitor] 40 mg tablet 40 mg PO QAM RF: 0 acetaminophen [Tylenol Extra Strength] 500 mg Tablet 1,500 mg PO UD PRN (Reason: Pain) RF: 0 albuterol sulfate 2.5 mg /3 mL (0.083 %) solution for nebulization 3 ml Inhalation Q4H PRN (Reason: Wheezing) RF: 0 diphenoxylate-atropine [Lomotil] 2.5-0.025 mg Tablet 1 tab PO QID PRN (Reason: Diarrhea) RF: 0 aspirin [Ecotrin Low Strength] 81 mg tablet,delayed release (DR/EC) 81 mg PO QAM RF: 0 verapamil 40 mg tablet 40 mg PO QID RF: 0 torsemide 10 mg Tablet 10 mg PO QAM RF: 0 budesonide 0.5 mg/2 mL suspension for nebulization 0 mg inhalation BID RF: 0 Discharge Orders: Discharge Order (Routine); Ordered 05/04/20 Ordered By: Mariana Emmanuel Admission Data Admit Date/Time: 05/01/20 01:54 Attending Provider: Mariana Emmanuel Admit Provider: Mikey Mayberry Primary Care Provider: Suad De León Other Providers: Mikey Mayberry Other Interventions: Discharge Summary Assessment (RN) Last Done: 05/04/20 10:51 DC Date/Time DO NOT enter until pt leaves facility: 05/04/20 15:28
--- NOTE | 2020-05-07 14:16 | Coding Query ---
CODING QUERY To promote full compliance with coding requirements relating to patient care, provider participation is requested in all cases of nuclear operations specialist uncertainty. Please assist us with the question(s) below: Coding Question(s): There is documentation of Klebsiella Pneumoniae Bacteremia. Please specify below, in your clinical opinion, regarding the most likely source of the Klebsiella Pneumoniae Bacteremia. ( + ) Acute Pyelonephritis ( ) Other: Please Specify ( ) Unknown Physician's Response(s): Thank you Mara Dennis Principal Diagnosis: "that condition established after study, to be chiefly responsible for occasioning the admission of the patient to the hospital for care." Co-Existing Principal Diagnosis: "when two or more diagnoses equally meet the criteria for principal diagnosis as determined by the circumstances of admission, diagnostic work up, and/or therapy provided, and the Alphabetic Index, Tabular List, or another coding guideline does not provide sequencing direction, any one of the diagnoses may be sequenced first." "When the physician has documented what appears to be a current diagnosis in the body of the record, but has not included the diagnosis in the final diagnostic statement, the physician should be asked whether the diagnosis should be added." (Source Coding Clinic 2 QTR90. p3-4) [facility]IDE
== END 2020-05-04 15:28 | disposition home or self-care (01) | DRG 690 ==
LOC: ED 20:08 → 2N 05-01 00:44

== ENCOUNTER 2020-07-28 15:25 | Inpatient (IN) ==
--- NOTE | 2020-07-28 16:37 | Emergency Department Note ---
History of Present Illness General Chief complaint: Pelvic Pain Stated complaint: PELVIC PAIN INTO BACK Time Seen by Provider: 07/28/20 16:12 Source: patient and family ( who is at the bedside) Mode of arrival: ambulatory Limitations: no limitations History of Present Illness Maximum Pain Intensity: 10 This patient comes in after having bilateral flank pain for about 5 days. She says she has had this before she was seen here last month and treated for UTI and in the past was septic she tells me she had a temperature up to 99. Slight burning on urination but no blood. She has some mild bilateral lower extremity pain. She is had diarrhea for about a month no blood or melena. No blood in her urine. She tells me she has been having intermittent chest pain for about a month she schedule of a cast she saw Dr. Bruno her vice president quality improvement on Sunday who changed her medications. She has chronic shortness of breath was unchanged had a brief episode of chest pain lasting 1 minute today. No known Covid exposure she has been tested in the last couple weeks and was negative. Home Medications Home Medications Medication Instructions Recorded Confirmed Type duloxetine 60 mg PO QAM 08/09/18 07/28/20 History folic acid 1 mg PO HS 08/09/18 07/28/20 History sumatriptan succinate 50 mg PO DIRECTED PRN 08/09/18 07/28/20 History metformin [Glucophage] 500 mg PO BIDM 08/12/18 07/28/20 History albuterol sulfate 3 ml INHALATION Q4H PRN 09/09/18 07/28/20 History diphenoxylate-atropine [Lomotil] 1 tab PO QID PRN 12/19/18 07/28/20 History albuterol sulfate [Ventolin HFA] 2 puff INHALATION Q4H PRN 06/30/19 07/28/20 History duloxetine 30 mg PO QAM 06/30/19 07/28/20 History fluticasone propion-salmeterol 1 inh INHALATION BID 06/30/19 07/28/20 History [Advair Diskus] gabapentin 300 mg PO TID 06/30/19 07/28/20 History nitroglycerin [Nitrostat] 0.4 mg SUBLINGUAL DIRECTED PRN 06/30/19 07/28/20 History ondansetron 4 mg TRANSLINGUAL Q8H PRN 06/30/19 07/28/20 History spironolactone [Aldactone] 25 mg PO QAM 06/30/19 07/28/20 History metoprolol succinate 100 mg PO BID 09/25/19 07/28/20 History mirtazapine 45 mg PO HS 09/25/19 07/28/20 History ropinirole 0.5 mg PO HS 09/25/19 07/28/20 History budesonide 0.5 mg INHALATION BID 01/13/20 07/28/20 History torsemide 10 mg PO QAM 01/13/20 07/28/20 History verapamil 40 mg PO QID 01/13/20 07/28/20 History acetaminophen [Tylenol Extra 1,500 mg PO UD PRN 04/30/20 07/28/20 History Strength] atorvastatin [Lipitor] 40 mg PO QAM 04/30/20 07/28/20 History insulin asp prt-insulin aspart 25 unit SUBCUT DAILYBD 07/07/20 07/28/20 History [Novolog Mix 70-30FlexPen U-100] insulin asp prt-insulin aspart 55 unit SUBCUT DAILYBB 07/07/20 07/28/20 History [Novolog Mix 70-30FlexPen U-100] Lactobacillus acidoph-L.bulgar 1 tab PO TID 07/28/20 07/28/20 History [Floranex] aspirin 81 mg PO DAILY 07/28/20 07/28/20 History isosorbide mononitrate 30 mg PO QAM 07/28/20 07/28/20 History pantoprazole 40 mg PO BID 07/28/20 07/28/20 History sitagliptin [Januvia] 100 mg PO DAILY 07/28/20 07/28/20 History Allergies Allergy/AdvReac Type Severity Reaction Status Date / Time Penicillins Allergy Intermediate Flushing, Verified 07/28/20 17:18 Itchiness Sulfa (Sulfonamide Allergy Intermediate Swelling Verified 07/28/20 17:18 Antibiotics) doxycycline Allergy Unknown Unknown Verified 07/28/20 17:18 adhesive AdvReac Intermediate Blistering Verified 07/28/20 17:18 Past Med/Surg History Medical History Anxiety Arthritis Asthma Cardiac defibrillator in place 2014 CHF (congestive heart failure) CKD (chronic kidney disease), stage III COPD (chronic obstructive pulmonary disease) Depression Depression with anxiety Diabetes mellitus, type 2 Elevated troponin Elevated troponin Fatty (change of) liver, not elsewhere classified GERD (gastroesophageal reflux disease) HLD (hyperlipidemia) Hydronephrosis of right kidney Hypertension Hypertrophic cardiomyopathy CADENCE (obstructive sleep apnea) on nocturnal O2 2L Pancreatic cyst Restless leg syndrome Surgical History H/O section 1979 & 1982 H/O hernia repair 2015 History of appendectomy 1970s History of colostomy reversal bowel perf 2013 with colostomy reversed in 2014 Status post internal cardiac defibrillator procedure "2015" Status post partial resection of colon "diverticulitis 11/05/14" Family History Other Hypertrophic cardiomyopathy Stomach cancer Thyroid disorder Social History Smoking Status: Never smoker Second Hand Exposure: No; Hx Alcohol Use: No Hx Substance Use: No Preferred Language: Bengali Communication Ability: Effective Taxi Driver Required: No Beliefs That Will Affect Care: None marital status: Current Living Situation: Spouse and Family 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 Other Information That Helps Us Care for You: No Feels Safe at Home: Yes Safety Concerns: Feels Safe At This Time Review of Systems A total of 10 systems reviewed and were otherwise negative Physical Exam Vital Signs Vital Signs - 24 hr 07/28/20 15:31 07/28/20 16:26 07/28/20 16:39 Temperature 37 C Temperature Source Oral Pulse Rate 82 75 Pulse Rate [Right] Pulse Rate from SpO2 Sensor 76 Pulse Rhythm [Right] Pulse Strength [Right] Respiratory Rate 17 20 Respiratory Effort / Characteristics Labored SOB on Exertion Respiratory Depth Normal Blood Pressure 115/66 153/78 H Blood Pressure [Right Arm] Blood Pressure Mean 82 113 Blood Pressure Mean [Right Arm] Blood Pressure Position [Right Arm] Pulse Oximetry 95 88 L Oxygen Delivery Method Room Air Room Air Oxygen Flow Rate Sepsis Recent Fever Within 48 Hours No Sepsis New/Unexplained Change in Mental Status No Sepsis Action Taken by Nursing No Action Required 07/28/20 16:47 07/28/20 16:49 07/28/20 17:00 Temperature Temperature Source Pulse Rate 75 75 Pulse Rate [Right] Pulse Rate from SpO2 Sensor 76 75 Pulse Rhythm [Right] Pulse Strength [Right] Respiratory Rate 17 21 Respiratory Effort / Characteristics Respiratory Depth Blood Pressure Blood Pressure [Right Arm] Blood Pressure Mean Blood Pressure Mean [Right Arm] Blood Pressure Position [Right Arm] Pulse Oximetry 100 99 Oxygen Delivery Method Nasal Cannula Oxygen Flow Rate 2 Sepsis Recent Fever Within 48 Hours Sepsis New/Unexplained Change in Mental Status Sepsis Action Taken by Nursing 07/28/20 17:01 07/28/20 17:15 07/28/20 17:30 Temperature Temperature Source Pulse Rate 74 77 75 Pulse Rate [Right] Pulse Rate from SpO2 Sensor 75 76 75 Pulse Rhythm [Right] Pulse Strength [Right] Respiratory Rate 21 22 24 Respiratory Effort / Characteristics Respiratory Depth Blood Pressure 122/63 Blood Pressure [Right Arm] Blood Pressure Mean 77 Blood Pressure Mean [Right Arm] Blood Pressure Position [Right Arm] Pulse Oximetry 100 91 100 Oxygen Delivery Method Oxygen Flow Rate Sepsis Recent Fever Within 48 Hours Sepsis New/Unexplained Change in Mental Status Sepsis Action Taken by Nursing 07/28/20 17:45 07/28/20 19:23 Temperature Temperature Source Pulse Rate 73 Pulse Rate [Right] 76 Pulse Rate from SpO2 Sensor Pulse Rhythm [Right] Regular Pulse Strength [Right] Normal Respiratory Rate 20 16 Respiratory Effort / Characteristics Non-Labored Spontaneous Respiratory Depth Normal Blood Pressure Blood Pressure [Right Arm] 132/65 Blood Pressure Mean Blood Pressure Mean [Right Arm] 87 Blood Pressure Position [Right Arm] Lying Pulse Oximetry 98 Oxygen Delivery Method Room Air Oxygen Flow Rate Sepsis Recent Fever Within 48 Hours Sepsis New/Unexplained Change in Mental Status Sepsis Action Taken by Nursing General: Well developed well nourished in no acute distress, breathing comfortably on room air. Normal speech HEENT: Normal cephalic atraumatic. Pupils are equal round and reactive to light. Extraocular movements are intact. Oropharynx is pink with moist mucous membranes. No swelling of the mouth lips or tongue. Neck: Supple with a midline trachea. No meningeal signs or stiffness, no JVD or bruits. No Stridor. Chest: Clear to auscultation bilaterally. No wheezes or rhonchi. No increased work of breathing. Heart: Regular rate and rhythm without murmurs or gallops. Abdomen: Soft nontender, nondistended without rebound guarding or rigidity. Extremities: No cyanosis clubbing or edema. No calf tenderness or assymetry Spine/Back. Non tender to palpation. No CVA tenderness. Mildly tender in the right flank. No redness or warmth or rash Skin: Good turgor without rashes. Neurologic exam: Cranial nerves two through 12 are intact. Motor and sensation are intact and symmetrical throughout. Course Administered Medications Budesonide (Budesonide 0.5 Mg/2 Ml Vial (Pulmicort)) 0.5 mg INH BIDR MARILEE Stop: 08/27/20 21:59 Last Admin: 07/28/20 22:20 Dose: 0.5 mg Documented by: [id number] Discontinued Medications Albumin Human (Albumin 25%) 50 mls @ 50 mls/hr IV ONE STA Stop: 07/28/20 21:18 Last Infusion: 07/28/20 22:13 Dose: 0 mls/hr Documented by: [id number] Admin: 07/28/20 20:47 Dose: 50 mls/hr Documented by: [id number] Medical Decision Making Differential Diagnosis UTI, kidney infection, musculoskeletal, electrolyte or metabolic abnormality, cardiac disease Medical Records Attestation: I reviewed the patient's medical records. Home Medications Current Medication List: was personally reviewed by me Laboratory Data Attestation: I reviewed the patient's lab results. Result diagrams: 07/28/20 17:35 07/28/20 17:35 Lab Results 07/28/20 07/28/20 07/28/20 Range/Units 17:30 17:35 17:35 WBC 10.84 H (4.8-10.8) K/uL RBC 4.26 (4.2-5.4) M/uL Hgb 11.6 L (12.0-16.0) g/dL Hct 37.3 (37-47) % MCV 87.6 (80-100) fL MCH 27.2 (25-34) pg MCHC 31.1 L (32-36) g/dL RDW Std Deviation 59.4 H (36.4-46.3) fL RDW Coeff of Rolan 18.8 H (11.5-14.5) % Plt Count 270 (130-400) K/uL MPV 9.0 (7.4-10.4) fL Immature Gran % (Auto) 0.4 % Neut % (Auto) 84.1 % Lymph % (Auto) 10.0 % [place] % (Auto) 4.7 % Eos % (Auto) 0.7 % Baso % (Auto) 0.1 % Neut # (Auto) 9.12 H (1.4-6.5) K/uL Lymph # (Auto) 1.08 L (1.2-3.4) K/uL [place] # (Auto) 0.51 (0.11-0.59) K/uL Eos # (Auto) 0.08 (0-0.5) K/uL Baso # (Auto) 0.01 (0-0.2) K/uL Immature Gran # (Auto) 0.04 H (0.00-0.02) K/uL PT Cancelled INR Cancelled APTT Cancelled PTT Ratio Cancelled Sodium (136-145) mmol/L Potassium (3.5-5.1) mmol/L Chloride (98-107) mmol/L Carbon Dioxide (21-32) mmol/L Anion Gap (3-11) BUN (7-18) mg/dl Creatinine (0.6-1.2) mg/dl Est Cr Clr Drug Dosing ml/min Est GFR ( Amer) Est GFR (Non-Af Amer) BUN/Creatinine Ratio (10-20) Glucose (70-99) mg/dl Lactate (0.4-2.0) mmol/L Calcium (8.5-10.1) mg/dl Magnesium (1.8-2.4) mg/dl Total Bilirubin (0.2-1) mg/dl AST (15-37) U/L ALT (12-78) U/L Alkaline Phosphatase (45-117) U/L Troponin I (0-0.045) ng/ml Total Protein (6.4-8.2) gm/dl Albumin (3.4-5.0) gm/dl Globulin (2.5-4.0) gm/dl Albumin/Globulin Ratio (0.9-2) Urine Color Yellow Urine Appearance Clear (Clear) Urine pH 5.0 (4.5-7.5) Ur Specific [place] 1.016 (1.000-1.030) Urine Protein Negative (Negative) Urine Glucose (UA) Negative (Negative) Urine Ketones Negative (Negative) Urine Blood Negative (Negative) Urine Nitrite Negative (Negative) Urine Bilirubin Negative (Negative) Urine Urobilinogen Negative (Negative) Ur Leukocyte Esterase Negative (Negative) 07/28/20 07/28/20 Range/Units 17:35 17:35 WBC (4.8-10.8) K/uL RBC (4.2-5.4) M/uL Hgb (12.0-16.0) g/dL Hct (37-47) % MCV (80-100) fL MCH (25-34) pg MCHC (32-36) g/dL RDW Std Deviation (36.4-46.3) fL RDW Coeff of Rolan (11.5-14.5) % Plt Count (130-400) K/uL MPV (7.4-10.4) fL Immature Gran % (Auto) % Neut % (Auto) % Lymph % (Auto) % [place] % (Auto) % Eos % (Auto) % Baso % (Auto) % Neut # (Auto) (1.4-6.5) K/uL Lymph # (Auto) (1.2-3.4) K/uL [place] # (Auto) (0.11-0.59) K/uL Eos # (Auto) (0-0.5) K/uL Baso # (Auto) (0-0.2) K/uL Immature Gran # (Auto) (0.00-0.02) K/uL PT INR APTT PTT Ratio Sodium 143 (136-145) mmol/L Potassium 4.3 (3.5-5.1) mmol/L Chloride 113 H (98-107) mmol/L Carbon Dioxide 23 (21-32) mmol/L Anion Gap 7.0 (3-11) BUN 29 H (7-18) mg/dl Creatinine 1.29 H (0.6-1.2) mg/dl Est Cr Clr Drug Dosing 40.2 ml/min Est GFR ( Amer) 51.4 Est GFR (Non-Af Amer) 44.3 BUN/Creatinine Ratio 22.1 H (10-20) Glucose 114 H (70-99) mg/dl Lactate 1.6 (0.4-2.0) mmol/L Calcium 9.7 (8.5-10.1) mg/dl Magnesium 2.5 H (1.8-2.4) mg/dl Total Bilirubin 0.6 (0.2-1) mg/dl AST 15 (15-37) U/L ALT 29 (12-78) U/L Alkaline Phosphatase 150 H (45-117) U/L Troponin I 0.133 H* (0-0.045) ng/ml Total Protein 7.9 (6.4-8.2) gm/dl Albumin 3.8 (3.4-5.0) gm/dl Globulin 4.1 H (2.5-4.0) gm/dl Albumin/Globulin Ratio 0.9 (0.9-2) Urine Color Urine Appearance (Clear) Urine pH (4.5-7.5) Ur Specific [place] (1.000-1.030) Urine Protein (Negative) Urine Glucose (UA) (Negative) Urine Ketones (Negative) Urine Blood (Negative) Urine Nitrite (Negative) Urine Bilirubin (Negative) Urine Urobilinogen (Negative) Ur Leukocyte Esterase (Negative) Imaging Data Attestation: I personally reviewed and interpreted this imaging study as follows: My Impression: Chest x-raycardiomegaly with pacemaker. Mild increased inter stitial markings. No pneumonia or pneumothorax seen Radiologist's Impression: XR chest 1V portable HISTORY: 60 years-old Female SEPSIS acute sepsis COMPARISON: Chest radiograph 07/07/2020 TECHNIQUE: Portable AP view of the chest FINDINGS: Right subclavian pacer/AICD. Cardiomegaly. Mild pulmonary vascular congestion. No pneumothorax, pleural effusion or airspace consolidation typical for pneumonia. Degenerative changes of the shoulders and IMPRESSION: Cardiomegaly with pulmonary vascular congestion. ECG Data Attestation: I personally reviewed and interpreted this ECG as follows: Indication: + chest pain Rate (beats per minute): 74 Rhythm: + sinus with SA ECG Intervals/blocks: + Normal QRS, + Normal QT and + Normal MS ECG [place]: + Normal ECG ST segments: + Normal ST segments and + T-wave inversions (Lateral) Comparison ECG Date: from (07/07/20) Change: the following changes noted (Paced rhythm has been replaced by normal sinus rhythm, T wave abnormalities are now present laterally) Blood Pressure Blood Pressure Findings: Normal blood pressure Blood Pressure Disposition: elevated BP felt to be situational MDM Narrative This patient comes in as scribed above she has multiple complaints. Her main complaint is lower abdominal pain and back pain. She is afebrile here and looks well. I reviewed her record she has had UTIs she is also had some vague chest pain for about a month and see her vice president quality improvement schedule have a cath. I did EKG and a sepsis work-up. IV access was established blood cultures urine cultures were obtained we reviewed her old records and she was reassessed frequently. Her urinalysis was unremarkable does not suggest UTI. CAT scan of her abdomen shows chronic findings but nothing acute. She has no significant electrolyte or metabolic abnormalities. Her chest x-ray may have some mild congestive changes. Her EKG does show some T wave abnormalities laterally which are biphasic and different than her last EKG which I am concerned about. Her troponin is also mildly elevated however this looks like this is more of a chronic finding she has no chest pain at present but has not been having intermittent chest pain and when she saw her vice president quality improvement they did schedule her for cath. Given her ongoing symptoms and EKG changes I do think she should be admitted/observed for further treatment and evaluation. [facility]. Continuous cardiac monitoring: Due to her complaints, an order was placed in the EMR for continuous cardiac monitoring. She was noted to be in normal sinus rhythm with a rate of 85 Impression & Plan Chest pain, Acute right flank pain, Pelvic pain, Elevated troponin, Acute electrocardiogram changes Discharge Plan Visit Data Chief Complaint: Pelvic Pain Stated Complaint: PELVIC PAIN INTO BACK ED Provider: Cedric Boswell Discharge Problem: Chest pain, Acute right flank pain, Pelvic pain, Elevated troponin, Acute electrocardiogram changes Patient Disposition: Admitted As Inpatient Discharge Instructions Interventions: ED Discharge Assessment Last Done: 07/28/20 20:42 Discharge Problem: Chest pain Qualifiers: Chest pain type: precordial pain Qualified Code(s): R07.2 - Precordial pain
--- NOTE | 2020-07-28 16:52 | XRay Report ---
XR chest 1V portable HISTORY: 60 years-old Female SEPSIS acute sepsis COMPARISON: Chest radiograph 07/07/2020 TECHNIQUE: Portable AP view of the chest FINDINGS: Right subclavian pacer/AICD. Cardiomegaly. Mild pulmonary vascular congestion. No pneumothorax, pleur al effusion or airspace consolidation typical for pneumonia. Degenerative changes of the shoulders an d IMPRESSION: Cardiomegaly with pulmonary vascular congestion. ACT 112: Negative or not required by law. The above report was generated using voice recognition software. It may contain grammatical, syntax o r spelling errors. Electronically signed by: Vidal Jay M.D. 07/28/2020 4:51 PM
[2020-07-28 17:48] LABS: Basophils # (auto) 0.01 K/uL (0-0.2); Basophils % (auto) 0.1 %; Eosinophils # (auto) 0.08 K/uL (0-0.5); Eosinophils % (auto) 0.7 %; Hematocrit (blood only) 37.3 % (37-47); Hemoglobin 11.6 g/dL (12.0-16.0); Immature Granulocytes # (auto) 0.04 K/uL (0.00-0.02); Immature Granulocytes % (auto) 0.4 %; Lymphocytes # (auto) 1.08 K/uL (1.2-3.4); Mean Corpuscular Hemoglobin 27.2 pg (25-34); Mean Corpuscular Hgb Conc 31.1 g/dL (32-36); Mean Corpuscular Volume 87.6 fL (80-100); Monocytes # (auto) 0.51 K/uL (0.11-0.59); Monocytes % (auto) 4.7 %; Neutrophils # (auto) 9.12 K/uL (1.4-6.5); Neutrophils % (auto) 84.1 %; Platelet Count 270 K/uL (130-400); RDW Coefficient of Variation 18.8 % (11.5-14.5); RDW Standard Deviation 59.4 fL (36.4-46.3); Red Blood Count 4.26 M/uL (4.2-5.4); White Blood Count 10.84 K/uL (4.8-10.8)
[2020-07-28 18:06] LABS: Albumin Level 3.8 gm/dl (3.4-5.0); BUN Creatinine Ratio 22.1 (10-20); Calcium 9.7 mg/dl (8.5-10.1); Creatinine Clr Calc Pharmacy 40.2 ml/min; Est GFR (African American) 51.4; Est GFR (Non-African American) 44.3; Magnesium 2.5 mg/dl (1.8-2.4); Potassium 4.3 mmol/L (3.5-5.1)
--- NOTE | 2020-07-28 18:16 | CT Scan Report ---
ABDOMEN AND PELVIS CT WITHOUT CONTRAST CT DOSE: 697.94 mGy.cm HISTORY: Acute bilateral flank pain bilateral flank pain TECHNIQUE: Multiaxial CT images of the abdomen and pelvis were performed without contrast. A dose lo wering technique was utilized adhering to the principles of ALARA. COMPARISON STUDY: CT abdomen and pelvis 07/07/2020, 02/07/2017. FINDINGS: Unchanged cardiomegaly with partially imaged pacer leads. Bibasilar groundglass opacities with areas of mosaic attenuation may represent probable atelectasis. The study is mildly motion degraded. There is no pneumatosis or pneumoperitoneum. The spleen is enlarged measuring up to 14.1 cm. The liver is a lso mildly enlarged with mild hepatic steatosis. No hepatic mass lesion. Mildly contracted gallbladde r. 2.5 cm cystic lesion of the pancreatic head is unchanged dating back to 2016 suggestive of benign etiology such as a sidebranch IPMN. There is no pancreatic ductal dilation. Unremarkable adrenal glan ds. Unchanged cortical thinning of the bilateral kidneys. No ureteral calculi. There is unchanged moderat e right-sided hydronephrosis with findings suggestive of chronic UPJ obstruction. The urinary bladder , uterus and adnexa are unremarkable. Calcified plaque of the abdominal aorta. There is no adenopathy . No bowel obstruction or bowel wall thickening. Moderate fecal retention. Colonic diverticulosis. The appendix is not diagnostically visualized it is reportedly surgically absent. There is no ascites or mesenteric inflammation. Diastases recti with several fat filled ventral abdominal wall hernias. Ther e is a small supraumbilical hernia which contains a nonobstructed loop of small bowel, image 234 seri es 3 with diastases 1.9 cm. Periumbilical hernia also contains a nonobstructed loop of small bowel. L eft lateral abdominal wall fat filled hernia, diastases 2.2 cm. Degenerative changes of the spine, pe lvis and hips. IMPRESSION: 1. No acute intra-abdominal or intrapelvic abnormality. 2. Unchanged moderate right-sided hydronephrosis with findings suggestive of chronic UPJ obstruction 3. No bowel obstruction or bowel wall thickening 4. Moderate fecal retention 5. Hepatic steatosis with hepatosplenomegaly. 6. Multiple fat and bowel filled ventral abdominal wall hernias 7. Additional findings as above. ACT 112: Negative or not required by law. The above report was generated using voice recognition software. It may contain grammatical, syntax o r spelling errors. Electronically signed by: Vidal Jay M.D. 07/28/2020 6:14 PM
[2020-07-28 18:23] LABS: Albumin Globulin Ratio 0.9 (0.9-2); Bilirubin,Total 0.6 mg/dl (0.2-1); Globulin 4.1 gm/dl (2.5-4.0); Total Protein 7.9 gm/dl (6.4-8.2); Troponin I 0.133 ng/ml (0-0.045)
[2020-07-28 19:40] LABS: Appearance Urine Clear (Clear); Bilirubin Urine Negative (Negative); Blood Urine Negative (Negative); Color Urine Yellow; Glucose Urine UA Negative (Negative); Ketones Urine Negative (Negative); Leukocyte Esterase Urine Negative (Negative); Nitrite Urine Negative (Negative); Protein Urine Negative (Negative); Specific Gravity Urine 1.016 (1.000-1.030); Urobilinogen Urine Negative (Negative)
--- NOTE | 2020-07-28 20:04 | History & Physical Report ---
Date of Service July 28, 2020 Assessment & Plan (1) Chest pain: Intermittent symptoms over the last month Possible ACS with troponin elevation hx moderate CAD as per recent diagnostic cardiac cath 11/2018 chronic diastolic heart failure (EF 70%, TTE 2019), some congestion on CXR hypertension, stable HOCM, family history sudden cardiac sp ICD placement DM2 insulin requiring, well-controlled as of recent hemoglobin A1c of 6.26 April 2020 chronic respiratory failure due to CADENCE (CPAP intolerance) on home O2 CRI, creatinine at baseline chronic anemia, hemoglobin at baseline OBS PCU Continue aspirin, beta-jorge, nitrate medications Follow troponin IV Heparin if with significant rise in subsequent troponin draw Cardiology consult RE chest pain with troponin elevation N.p.o. after midnight in anticipation of procedure Basal insulin adjusted for n.p.o. status, ISS BG goal 140-180, carb count coverage, DVT prophylaxis Heparin subcu Full code Patient's requesting updates from providers. Mr. Kimo Velasquez, contact #[phone]. Text document was generated using [employer] voice recognition software. It may contain grammatical or spelling errors. Kindly contact undersigned for clarification of any documentation item in question. History of Present Illness Chief Complaint: Pain all over Primary Care Provider: Suad De León DO History obtained from patient, , and records. Medical history significant for chronic respiratory failure due to CADENCE (CPAP intolerance) on home O2, chronic diastolic heart failure (EF 70%, TTE 2019), CAD as per records, hypertension, HOCM, family history sudden cardiac sp ICD placement, DM2 insulin requiring, restless leg syndrome as per records, CRI (baseline creatinine 1.4), chronic anemia (baseline hemoglobin 11), mood disorder. Last confinement April 2020 for acute pyelonephritis. Recent ER visit last month for UTI symptoms and achiness. Patient discharged on cefdinir course. Persistent achiness the last 3 weeks. Intermittent substernal discomfort going to her left arm with some shortness of breath. Occurring 3 times a week as per patient. Weight gain of 10 pounds in the last 3 months as per patient. No unusual stress at home. Possible insect bite left leg a few days ago. 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 Low-dose nitrate recommended. Diagnostic cardiac cath tentatively scheduled for next week. Worsening achy lower abdominal discomfort today with good BM. No fever, no chills, no hematuria. Stools kind of loose but not diarrhea as per patient. No actual chest pain today. Patient brought to ER by . 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 Allergies Allergy/AdvReac Type Severity Reaction Status Date / Time Penicillins Allergy Intermediate Flushing, Verified 07/28/20 17:18 Itchiness Sulfa (Sulfonamide Allergy Intermediate Swelling Verified 07/28/20 17:18 Antibiotics) doxycycline Allergy Unknown Unknown Verified 07/28/20 17:18 adhesive AdvReac Intermediate Blistering Verified 07/28/20 17:18 Home Medications Home Medications Medication Instructions Recorded Confirmed Type duloxetine 60 mg PO QAM 08/09/18 07/28/20 History folic acid 1 mg PO HS 08/09/18 07/28/20 History sumatriptan succinate 50 mg PO DIRECTED PRN 08/09/18 07/28/20 History metformin [Glucophage] 500 mg PO BIDM 08/12/18 07/28/20 History albuterol sulfate 3 ml INHALATION Q4H PRN 09/09/18 07/28/20 History diphenoxylate-atropine [Lomotil] 1 tab PO QID PRN 12/19/18 07/28/20 History albuterol sulfate [Ventolin HFA] 2 puff INHALATION Q4H PRN 06/30/19 07/28/20 History duloxetine 30 mg PO QAM 06/30/19 07/28/20 History fluticasone propion-salmeterol 1 inh INHALATION BID 06/30/19 07/28/20 History [Advair Diskus] gabapentin 300 mg PO TID 06/30/19 07/28/20 History nitroglycerin [Nitrostat] 0.4 mg SUBLINGUAL DIRECTED PRN 06/30/19 07/28/20 History ondansetron 4 mg TRANSLINGUAL Q8H PRN 06/30/19 07/28/20 History spironolactone [Aldactone] 25 mg PO QAM 06/30/19 07/28/20 History metoprolol succinate 100 mg PO BID 09/25/19 07/28/20 History mirtazapine 45 mg PO HS 09/25/19 07/28/20 History ropinirole 0.5 mg PO HS 09/25/19 07/28/20 History budesonide 0.5 mg INHALATION BID 01/13/20 07/28/20 History torsemide 10 mg PO QAM 01/13/20 07/28/20 History verapamil 40 mg PO QID 01/13/20 07/28/20 History acetaminophen [Tylenol Extra 1,500 mg PO UD PRN 04/30/20 07/28/20 History Strength] atorvastatin [Lipitor] 40 mg PO QAM 04/30/20 07/28/20 History insulin asp prt-insulin aspart 25 unit SUBCUT DAILYBD 07/07/20 07/28/20 History [Novolog Mix 70-30FlexPen U-100] insulin asp prt-insulin aspart 55 unit SUBCUT DAILYBB 07/07/20 07/28/20 History [Novolog Mix 70-30FlexPen U-100] Lactobacillus acidoph-L.bulgar 1 tab PO TID 07/28/20 07/28/20 History [Floranex] aspirin 81 mg PO DAILY 07/28/20 07/28/20 History isosorbide mononitrate 30 mg PO QAM 07/28/20 07/28/20 History pantoprazole 40 mg PO BID 07/28/20 07/28/20 History sitagliptin [Januvia] 100 mg PO DAILY 07/28/20 07/28/20 History Past Med/Surg History Medical History Anxiety Arthritis Asthma Cardiac defibrillator in place 2014 CHF (congestive heart failure) CKD (chronic kidney disease), stage III COPD (chronic obstructive pulmonary disease) Depression Depression with anxiety Diabetes mellitus, type 2 Elevated troponin Elevated troponin Fatty (change of) liver, not elsewhere classified GERD (gastroesophageal reflux disease) HLD (hyperlipidemia) Hydronephrosis of right kidney Hypertension Hypertrophic cardiomyopathy CADENCE (obstructive sleep apnea) on nocturnal O2 2L Pancreatic cyst Restless leg syndrome Surgical History H/O section 1979 & 1982 H/O hernia repair 2016 History of appendectomy 1970s History of colostomy reversal bowel perf 2013 with colostomy reversed in 2014 Status post internal cardiac defibrillator procedure "2014" Status post partial resection of colon "diverticulitis 11/05/14" Family History Other Hypertrophic cardiomyopathy Stomach cancer Thyroid disorder Social History Smoking Status: Never smoker Second Hand Exposure: No; Hx Alcohol Use: No Hx Substance Use: No Preferred Language: Macedonian Communication Ability: Effective Digital Circuit Designer Required: No Beliefs That Will Affect Care: None marital status: Current Living Situation: Spouse and Family 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 Other Information That Helps Us Care for You: No Feels Safe at Home: Yes Safety Concerns: Feels Safe At This Time Review of Systems Review of Systems: As per HPI, all 10 systems reviewed, all other ROS negative Physical Exam Physical Exam: GENERAL: uncomfortable, anxious, obese, no respiratory distress, slightly restless SKIN: Pallor, warm HEENT: Pale palpebral conjunctivae, no ptosis, moist buccal mucosa, nasal cannula in place NECK : Supple, short neck, no tenderness CHEST : Decreased breath sounds, minimal chest wall tenderness HEART : RRR, no obvious murmurs ABDOMEN: Some distention, nontender EXTREMITIES : Minimal LE swelling, no LE tenderness, no other conspicuous deformities noted NEUROLOGIC : Coherent, no facial asymmetry, no other gross focality Results & Data Results & Data ([facility]) Vital Signs (Past 12 Hours) Vital Signs Temp Pulse Pulse Resp BP BP Pulse Ox 07/28/20 19:23 76 16 132/65 98 07/28/20 17:45 73 20 07/28/20 17:30 75 24 100 07/28/20 17:15 77 22 91 07/28/20 17:01 74 21 122/63 100 07/28/20 17:00 75 21 99 07/28/20 16:49 75 17 100 07/28/20 16:39 75 20 153/78 H 07/28/20 16:26 88 L 07/28/20 15:31 37 C 82 17 115/66 95 Laboratory Results Laboratory Results WBC 10.84 K/uL (4.8-10.8) H 07/28/20 17:35 RBC 4.26 M/uL (4.2-5.4) 07/28/20 17:35 Hgb 11.6 g/dL (12.0-16.0) L 07/28/20 17:35 Hct 37.3 % (37-47) 07/28/20 17:35 MCV 87.6 fL (80-100) 07/28/20 17:35 MCH 27.2 pg (25-34) 07/28/20 17:35 MCHC 31.1 g/dL (32-36) L 07/28/20 17:35 RDW Std Deviation 59.4 fL (36.4-46.3) H 07/28/20 17:35 RDW Coeff of Rolan 18.8 % (11.5-14.5) H 07/28/20 17:35 Plt Count 270 K/uL (130-400) 07/28/20 17:35 MPV 9.0 fL (7.4-10.4) 07/28/20 17:35 Immature Gran % (Auto) 0.4 % 07/28/20 17:35 Neut % (Auto) 84.1 % 07/28/20 17:35 Lymph % (Auto) 10.0 % 07/28/20 17:35 [place] % (Auto) 4.7 % 07/28/20 17:35 Eos % (Auto) 0.7 % 07/28/20 17:35 Baso % (Auto) 0.1 % 07/28/20 17:35 Neut # (Auto) 9.12 K/uL (1.4-6.5) H 07/28/20 17:35 Lymph # (Auto) 1.08 K/uL (1.2-3.4) L 07/28/20 17:35 [place] # (Auto) 0.51 K/uL (0.11-0.59) 07/28/20 17:35 Eos # (Auto) 0.08 K/uL (0-0.5) 07/28/20 17:35 Baso # (Auto) 0.01 K/uL (0-0.2) 07/28/20 17:35 Immature Gran # (Auto) 0.04 K/uL (0.00-0.02) H 07/28/20 17:35 PT Cancelled 07/28/20 17:35 INR Cancelled 07/28/20 17:35 APTT Cancelled 07/28/20 17:35 PTT Ratio Cancelled 07/28/20 17:35 Sodium 143 mmol/L (136-145) 07/28/20 17:35 Potassium 4.3 mmol/L (3.5-5.1) 07/28/20 17:35 Chloride 113 mmol/L (98-107) H 07/28/20 17:35 Carbon Dioxide 23 mmol/L (21-32) 07/28/20 17:35 Anion Gap 7.0 (3-11) 07/28/20 17:35 BUN 29 mg/dl (7-18) H 07/28/20 17:35 Creatinine 1.29 mg/dl (0.6-1.2) H 07/28/20 17:35 Est Cr Clr Drug Dosing 40.2 ml/min 07/28/20 17:35 Est GFR ( Amer) 51.4 07/28/20 17:35 Est GFR (Non-Af Amer) 44.3 07/28/20 17:35 BUN/Creatinine Ratio 22.1 (10-20) H 07/28/20 17:35 Glucose 114 mg/dl (70-99) H 07/28/20 17:35 Lactate 1.6 mmol/L (0.4-2.0) 07/28/20 17:35 Calcium 9.7 mg/dl (8.5-10.1) 07/28/20 17:35 Magnesium 2.5 mg/dl (1.8-2.4) H 07/28/20 17:35 Total Bilirubin 0.6 mg/dl (0.2-1) 07/28/20 17:35 AST 15 U/L (15-37) 07/28/20 17:35 ALT 29 U/L (12-78) 07/28/20 17:35 Alkaline Phosphatase 150 U/L (45-117) H 07/28/20 17:35 Troponin I 0.133 ng/ml (0-0.045) H* 07/28/20 17:35 Total Protein 7.9 gm/dl (6.4-8.2) 07/28/20 17:35 Albumin 3.8 gm/dl (3.4-5.0) 07/28/20 17:35 Globulin 4.1 gm/dl (2.5-4.0) H 07/28/20 17:35 Albumin/Globulin Ratio 0.9 (0.9-2) 07/28/20 17:35 Urine Color Yellow 07/28/20 17:30 Urine Appearance Clear (Clear) 07/28/20 17:30 Urine pH 5.0 (4.5-7.5) 07/28/20 17:30 Ur Specific [place] 1.016 (1.000-1.030) 07/28/20 17:30 Urine Protein Negative (Negative) 07/28/20 17:30 Urine Glucose (UA) Negative (Negative) 07/28/20 17:30 Urine Ketones Negative (Negative) 07/28/20 17:30 Urine Blood Negative (Negative) 07/28/20 17:30 Urine Nitrite Negative (Negative) 07/28/20 17:30 Urine Bilirubin Negative (Negative) 07/28/20 17:30 Urine Urobilinogen Negative (Negative) 07/28/20 17:30 Ur Leukocyte Esterase Negative (Negative) 07/28/20 17:30 Diagnostic Findings Chest x-ray : Cardiomegaly with pulmonary vascular congestion. CT abdomen pelvis: 1. No acute intra-abdominal or intrapelvic abnormality. 2. Unchanged moderate right-sided hydronephrosis with findings suggestive of chronic UPJ obstruction 3. No bowel obstruction or bowel wall thickening 4. Moderate fecal retention 5. Hepatic steatosis with hepatosplenomegaly. 6. Multiple fat and bowel filled ventral abdominal wall hernias EKG as per my interpretation : Rate 75, NSR, normal axis, incomplete RBBB, T wave abnormalities lateral leads (1) Chest pain Chest pain type: precordial pain Qualified Code(s): R07.2 - Precordial pain
[2020-07-28] MEDS ORDERED: ALBUMIN 25% 50 ML IV STA (20:19)
[2020-07-28 20:46] LABS: Partial Thromboplastin Ratio 0.8; Partial Thromboplastin Time 23.4 Seconds (21.0-31.0)
[2020-07-28 21:04] LABS: Troponin I 0.179 ng/ml (0-0.045)
[2020-07-28] MEDS ORDERED: GLUCAGON FOR INJ 1 MG VIAL SQ PRN (21:17)
[2020-07-28] MEDS ORDERED: TRAMADOL HCL 50 MG TABLET PO PRN (21:17)
[2020-07-28] MEDS ORDERED: NITROGLYCERIN SL 0.4 MG/TAB TAB SL PRN (21:17)
[2020-07-28] MEDS ORDERED: GLUCOSE 40% GEL 15 GM TUBE PO PRN (21:17)
[2020-07-28] MEDS ORDERED: LORazepam 0.25 MG/0.5 ML VIAL IV PRN (21:17)
[2020-07-28] MEDS ORDERED: PROMETHAZINE HCL 12.5 MG in SODIUM CHLORIDE 0.9% 50 ML IV PRN (21:17)
[2020-07-28] MEDS ORDERED: GLUCOSE 10 TABS/TUBE PO PRN (21:17)
[2020-07-28] MEDS ORDERED: CARBOHYDRATES FOR HYPOGLYCEMIA PO PRN (21:17)
[2020-07-28] MEDS ORDERED: DEXTROSE 50% 50 ML SYRINGE IV PRN (21:17)
[2020-07-28 21:29] LABS: Lyme Ab IgG w/WB Rflx Negative (Negative); Lyme Ab IgM w/WB Rflx Negative (Negative)
[2020-07-28] MEDS: BUDESONIDE 0.5 MG/2 ML VIAL (PULMICORT) INH SCH (22:20)
[2020-07-28] MEDS: VERAPAMIL HCL 40 MG TAB PO SCH (22:40)
[2020-07-28] MEDS: MIRTAZAPINE SOLTAB 15 MG PO SCH (22:41)
[2020-07-28] MEDS: GABAPENTIN 300 MG CAP PO SCH (22:41)
[2020-07-28] MEDS: LACTOBACILLUS ACIDOPHILUS (FLORANEX) TAB PO SCH (22:41)
[2020-07-28] MEDS: PANTOprazole 40 MG TAB PO SCH (22:41)
[2020-07-28] MEDS: METOPROLOL SUCC 50MG EXT REL TAB PO SCH (22:41)
[2020-07-28] MEDS: ROPINIROLE HCL 0.25 MG TABLET PO SCH (22:42)
[2020-07-28] MEDS: FOLIC ACID 1 MG TAB PO SCH (22:42)
[2020-07-28] MEDS: INSULIN ASPART 100 UNITS/ML 3 ML PEN SC SCH (22:43)
[2020-07-28] MEDS: HEPARIN SOD 5,000 UNIT/0.5 ML VIAL SQ SCH (22:44)
[2020-07-29] MEDS: INSULIN ASPART 100 UNITS/ML 3 ML PEN SC SCH ×3 (05:59→18:34)
[2020-07-29] MEDS: HEPARIN SOD 5,000 UNIT/0.5 ML VIAL SQ SCH ×2 (06:00→17:26)
[2020-07-29 06:42] LABS: Basophils # (auto) 0.01 K/uL (0-0.2); Basophils % (auto) 0.1 %; Eosinophils # (auto) 0.12 K/uL (0-0.5); Eosinophils % (auto) 1.2 %; Hematocrit (blood only) 37.6 % (37-47); Hemoglobin 11.5 g/dL (12.0-16.0); Immature Granulocytes # (auto) 0.03 K/uL (0.00-0.02); Immature Granulocytes % (auto) 0.3 %; Lymphocytes % (auto) 9.8 %; Mean Corpuscular Hemoglobin 26.9 pg (25-34); Mean Corpuscular Hgb Conc 30.6 g/dL (32-36); Mean Corpuscular Volume 87.9 fL (80-100); Mean Platelet Volume 9.1 fL (7.4-10.4); Monocytes # (auto) 0.47 K/uL (0.11-0.59); Monocytes % (auto) 4.6 %; Neutrophils # (auto) 8.61 K/uL (1.4-6.5); Platelet Count 264 K/uL (130-400); RDW Coefficient of Variation 18.9 % (11.5-14.5); RDW Standard Deviation 59.9 fL (36.4-46.3); Red Blood Count 4.28 M/uL (4.2-5.4); White Blood Count 10.24 K/uL (4.8-10.8)
[2020-07-29] MEDS: BUDESONIDE 0.5 MG/2 ML VIAL (PULMICORT) INH SCH ×2 (07:06→19:23)
[2020-07-29 07:10] LABS: BUN Creatinine Ratio 19.4 (10-20); Calcium 9.4 mg/dl (8.5-10.1); Creatinine Clr Calc Pharmacy 46.2 ml/min; Est GFR (Non-African American) 52.6; Potassium 4.5 mmol/L (3.5-5.1)
[2020-07-29 07:24] LABS: Troponin I 0.17 ng/ml (0-0.045)
[2020-07-29] MEDS: FLUTICASONE/VILANTEROL 200/25MCG 14 PUFFS/INHALER INH SCH (09:17)
[2020-07-29] MEDS: DULOXETINE HCL 60 MG CAP PO SCH (09:22)
[2020-07-29] MEDS: DULOXETINE HCL 30 MG CAP PO SCH (09:22)
[2020-07-29] MEDS: VERAPAMIL HCL 40 MG TAB PO SCH ×4 (09:22→20:47)
[2020-07-29] MEDS: ASPIRIN 81 MG ECTAB PO SCH (09:23)
[2020-07-29] MEDS: LACTOBACILLUS ACIDOPHILUS (FLORANEX) TAB PO SCH ×3 (09:23→20:47)
[2020-07-29] MEDS: ISOSORBIDE MONO EXTENDED REL 30 MG TABCR PO SCH (09:24)
[2020-07-29] MEDS: ATORVASTATIN 40 MG TAB PO SCH (09:24)
[2020-07-29] MEDS: METOPROLOL SUCC 50MG EXT REL TAB PO SCH ×2 (09:25→20:46)
[2020-07-29] MEDS: PANTOprazole 40 MG TAB PO SCH ×2 (09:25→20:48)
[2020-07-29] MEDS: GABAPENTIN 300 MG CAP PO SCH ×3 (09:25→20:48)
[2020-07-29] MEDS: ACETAMINOPHEN 325 MG TAB PO PRN ×2 (09:32→17:17)
--- NOTE | 2020-07-29 10:51 | Cardiology Consultation ---
Date of Consultation July 29, 2020 Assessment & Plan (1) CAD (coronary artery disease), [place] coronary artery: (2) Elevated troponin: (3) Hypertrophic cardiomyopathy: (4) Cardiac defibrillator in place: I had a long discussion with the patient regarding her recurrent chest pain despite addition of long-acting nitrates. Her ECG on admission demonstrates biphasic T waves in the anterior lateral leads which is a change from prior studies. These may be secondary to hypertrophic cardiomyopathy, however, underlying ischemia cannot be excluded. Her troponins are chronically elevated and nondiagnostic. Currently pain-free this morning. No signs/symptoms of overt volume overload. Risk versus benefit of coronary angiography discussed at length. Patient agreeable to proceed with cardiac catheterization with coronary angiography today. Prior cardiac catheterization films reviewed from 11/2018 demonstrating moderate nonobstructive CAD. She is a drug-eluting stent candidate. All questions answered to patient satisfaction. Thank you for allowing me to participate in the care of your patient. History of Present Illness Reason for Consultation: Chest pain, apical hypertrophic cardiomyopathy, [place]rian nary artery disease, elevated troponin Requesting Physician: Dr. Schuster Attending Physician: Aniceto Patterson MD History of Present Illness 60-year-old female presented to the emergency department with chest, flank, neck, and left arm discomfort. Describes episode of chest and flank discomfort over the past few weeks to months. Recently evaluated in the cardiology clinic 07/21/2020 with similar symptoms. Due to history of moderate nonobstructive coronary disease a repeat coronary angiography was recommended. Prescribed low- dose long-acting nitrates as well. No change in the severity or frequency of chest discomfort with medication changes. Patient admitted to the progressive care unit. Pain-free overnight. Reports chronic dyspnea on exertion without orthopnea or PND. Denies weight gain or lower extremity edema. Telemetry demonstrates sinus rhythm and atrial paced rhythm. Cardiovascular history copied from the [facility] medical record: 1.ApicalHypertrophic nonobstructive cardiomyopathy, severe with markedly reduced LV cavity size , grade 4 diastolic dysfunction 2.Genetic mutation MBCconsistent with cardiomyopathy. 3.Status post prophylactic pacer defibrillatorMedtronic, model - Evera MRI XT [id number], dual chamber, September 01, 2015. 4.Labile hypertension. 5.Obesity. 6. Obstructive sleep apnea/hypoventilationwith poor CPAP tolerance on chronic nocturnal oxygen supplementation 7.Chronic diastolic heart failure right greater than left 8. Chronic anxiety Allergies Allergy/AdvReac Type Severity Reaction Status Date / Time Penicillins Allergy Intermediate Flushing, Verified 07/28/20 17:18 Itchiness Sulfa (Sulfonamide Allergy Intermediate Swelling Verified 07/28/20 17:18 Antibiotics) doxycycline Allergy Unknown Unknown Verified 07/28/20 17:18 adhesive AdvReac Intermediate Blistering Verified 07/28/20 17:18 Home Medications Home Medications Medication Instructions Recorded Confirmed Type duloxetine 60 mg PO QAM 08/09/18 07/28/20 History folic acid 1 mg PO HS 08/09/18 07/28/20 History sumatriptan succinate 50 mg PO DIRECTED PRN 08/09/18 07/28/20 History metformin [Glucophage] 500 mg PO BIDM 08/12/18 07/28/20 History albuterol sulfate 3 ml INHALATION Q4H PRN 09/09/18 07/28/20 History diphenoxylate-atropine [Lomotil] 1 tab PO QID PRN 12/19/18 07/28/20 History albuterol sulfate [Ventolin HFA] 2 puff INHALATION Q4H PRN 06/30/19 07/28/20 History duloxetine 30 mg PO QAM 06/30/19 07/28/20 History fluticasone propion-salmeterol 1 inh INHALATION BID 06/30/19 07/28/20 History [Advair Diskus] gabapentin 300 mg PO TID 06/30/19 07/28/20 History nitroglycerin [Nitrostat] 0.4 mg SUBLINGUAL DIRECTED PRN 06/30/19 07/28/20 History ondansetron 4 mg TRANSLINGUAL Q8H PRN 06/30/19 07/28/20 History spironolactone [Aldactone] 25 mg PO QAM 06/30/19 07/28/20 History metoprolol succinate 100 mg PO BID 09/25/19 07/28/20 History mirtazapine 45 mg PO HS 09/25/19 07/28/20 History ropinirole 0.5 mg PO HS 09/25/19 07/28/20 History budesonide 0.5 mg INHALATION BID 01/13/20 07/28/20 History torsemide 10 mg PO QAM 01/13/20 07/28/20 History verapamil 40 mg PO QID 01/13/20 07/28/20 History acetaminophen [Tylenol Extra 1,500 mg PO UD PRN 04/30/20 07/28/20 History Strength] atorvastatin [Lipitor] 40 mg PO QAM 04/30/20 07/28/20 History insulin asp prt-insulin aspart 25 unit SUBCUT DAILYBD 07/07/20 07/28/20 History [Novolog Mix 70-30FlexPen U-100] insulin asp prt-insulin aspart 55 unit SUBCUT DAILYBB 07/07/20 07/28/20 History [Novolog Mix 70-30FlexPen U-100] Lactobacillus acidoph-L.bulgar 1 tab PO TID 07/28/20 07/28/20 History [Floranex] aspirin 81 mg PO DAILY 07/28/20 07/28/20 History isosorbide mononitrate 30 mg PO QAM 07/28/20 07/28/20 History pantoprazole 40 mg PO BID 07/28/20 07/28/20 History sitagliptin [Januvia] 100 mg PO DAILY 07/28/20 07/28/20 History Patient History Medical History Anxiety Arthritis Asthma Cardiac defibrillator in place 2014 CHF (congestive heart failure) CKD (chronic kidney disease), stage III COPD (chronic obstructive pulmonary disease) Depression Depression with anxiety Diabetes mellitus, type 2 Elevated troponin Elevated troponin Fatty (change of) liver, not elsewhere classified GERD (gastroesophageal reflux disease) HLD (hyperlipidemia) Hydronephrosis of right kidney Hypertension Hypertrophic cardiomyopathy CADENCE (obstructive sleep apnea) on nocturnal O2 2L Pancreatic cyst Restless leg syndrome Surgical History H/O section 1979 & 1982 H/O hernia repair 2016 History of appendectomy 1970s History of colostomy reversal bowel perf 2013 with colostomy reversed in 2014 Status post internal cardiac defibrillator procedure "2015" Status post partial resection of colon "diverticulitis 11/05/14" Family History Other Hypertrophic cardiomyopathy Stomach cancer Thyroid disorder Social History Smoking Status: Never smoker Second Hand Exposure: No; Hx Alcohol Use: No Hx Substance Use: No Preferred Language: Belarusian Communication Ability: Effective Brewery Pumper Required: No Beliefs That Will Affect Care: None marital status: Current Living Situation: Spouse and Family 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 Other Information That Helps Us Care for You: No Feels Safe at Home: Yes Safety Concerns: Feels Safe At This Time Review of Systems Review of Systems: All systems reviewed & are unremarkable except as noted in HPI & below Physical Exam Constitutional: well nourished and + obese Respiratory: normal respiratory effort, lungs clear to auscultation Auscultation: no crackles, no rales, no rhonchi and no wheezes Cardiovascular: Rate/Rhythm: regular rate and regular rhythm Heart Sounds: normal S1 and normal S2; no murmur and no cardiac rub Vessels: no JVD Extremities: + edema (Trace bilateral pedal edema) Gastrointestinal (Abdomen): Inspection/Auscultation: abdomen normal to inspection and normal bowel sounds; abdomen not distended Percussion/Palpation: abdomen soft; abdomen nontender, no guarding and abdomen not rigid Skin: no rashes, warm and dry Neurologic: CN's II-XI intact bilaterally and moves all extremities; no focal motor deficits Speech / Cognition: normal speech Psychiatric: A+Ox3, euthymic affect Results & Data ([facility]) Vital Signs (Past 12 Hours) Vital Signs Temp Pulse Pulse Resp BP Pulse Ox 07/29/20 10:30 64 18 106/60 100 07/29/20 09:19 68 117/70 07/29/20 07:08 69 18 90 07/29/20 07:04 37.1 C 70 20 125/72 96 07/29/20 04:05 36.7 C 83 20 119/72 95 07/28/20 23:31 37.2 C 78 18 155/69 H 97 (1) CAD (coronary artery disease), [place] coronary artery Associated angina: with unstable angina [place] vs. transplanted heart: [place] heart Qualified Code(s): I25.110 - Atherosclerotic heart disease of [place] coronary artery with unstable angina pectoris
--- NOTE | 2020-07-29 10:56 | Pre Anesthesia Assessment ---
Date of Service July 29, 2020 Pre Sedation Assessment Vital Signs Temp Pulse Pulse Resp BP BP Pulse Ox 07/30/20 07:17 75 18 98 07/30/20 07:03 37 C 80 20 118/69 92 07/30/20 03:50 36.7 C 70 18 102/58 L 95 07/29/20 23:44 36.6 C 71 18 109/53 L 98 07/29/20 23:34 62 07/29/20 20:02 36.5 C 63 18 90/65 L 98 07/29/20 19:17 71 20 95 07/29/20 17:29 61 07/29/20 17:06 105/58 L 99 07/29/20 15:23 36.5 C 60 19 122/61 96 07/29/20 14:30 68 20 97/57 L 99 07/29/20 14:15 67 20 117/61 97 07/29/20 10:30 64 18 106/60 100 Cardiovascular + regular rate and + regular rhythm + S1 normal and + S2 normal; no murmur + edema (Trace bilateral pedal edema) Respiratory normal respiratory effort, lungs clear to auscultation Pre-Sedation Airway Assessment Smoking Status: Never smoker Hx Sleep Apnea: Yes (no cpap) Short, Thick Neck: Yes Thyromental Distance: > or= 3.5 Finger Breadths Oral Cavity: + WNL Mallampati Class: IV ASA: ASA3 NPO Status Date of Last Intake of Fluids: 07/29/20 Time of Last Intake of Fluids: 07:00 Date of Last Intake of Solid Food: 07/28/20 Time of Last Intake of Solid Foods: 18:00 Procedure Planning Contraindications for Sedation: none Current Medications Reviewed: Yes Notes The planned sedation has been discussed with the patient. Informed Consent was obtained. I have identified the patient, determined the appropriateness of sedation and have assessed the patient immediately prior to the procedure. All medicine(s) and interventions are by my order.
[2020-07-29] MEDS ORDERED: HEPARIN (PORCINE) 1000 UNIT/ML 10 ML (CATH LAB USE ONLY) ONE ×2 (11:39→13:45)
[2020-07-29] MEDS ORDERED: NiCARDipine HCL INJ 2.5 MG/ML 10 ML AMP ONE (11:39)
[2020-07-29] MEDS ORDERED: MIDAZOLAM HCL 1 MG/ML 2ML VIAL ONE (11:40)
[2020-07-29] MEDS ORDERED: NITROGLYCERIN/D5W 100MCG/ML 20ML SYR ONE (11:40)
[2020-07-29] MEDS ORDERED: fentaNYL citrate 100 MCG/2 ML VIAL ONE (11:40)
--- NOTE | 2020-07-29 13:32 | Post Anesthesia Assessment ---
Date of Service July 29, 2020 Post Sedation Assessment Vital Signs Temp Pulse Pulse Resp BP BP Pulse Ox 07/30/20 07:17 75 18 98 07/30/20 07:03 37 C 80 20 118/69 92 07/30/20 03:50 36.7 C 70 18 102/58 L 95 07/29/20 23:44 36.6 C 71 18 109/53 L 98 07/29/20 23:34 62 07/29/20 20:02 36.5 C 63 18 90/65 L 98 07/29/20 19:17 71 20 95 07/29/20 17:29 61 07/29/20 17:06 105/58 L 99 07/29/20 15:23 36.5 C 60 19 122/61 96 07/29/20 14:30 68 20 97/57 L 99 07/29/20 14:15 67 20 117/61 97 07/29/20 10:30 64 18 106/60 100 Recovery Score Activity: Moves 4 extremities Respiration: Deep Breath/Cough Circulation: +/-20% PreAnes Value Consciousness: Arouseable (by name) Oxygen Saturation: > 92% On Room Air Discharge Sedation Level of Care: Phase I Post Sedation Plan On clinical assessment, the patient appears to have tolerated the sedation without complications. Patient is recovering as anticipated. Patient will continue to be monitored by nursing and may be discharged when sedation discharge criteria are met per below protocol. Upon Completions of procedure up to 15 minutes continue every 5 minute vital signs and the P.A.R. score; then discharge to a Phase I or Fast Track to Phase II per the following guidelines: * Discharge Patient to appropriate Phase II area if PAR is 8 or greater or return to pre- procedure baseline. The post - procedure orders will be as directed. * If PAR score is less than 8 or not return to pre-procedure baseline then patient will follow Phase I monitoring till PAR is reached for Phase II. The Phase I may be done in procedure room or may call to secure a Phase I area. * If naloxone or flumazenil are used for reversal, hold in Phase I for continued monitoring from when last reversal dose was given for a minimum of 60 minutes or longer pending the nurse and/or physician discretion of patient condition before discharge to Phase II. Please call the Sedation Physician to re-evaluate and complete post-note for discharge to Phase II area. Do NOT discharge from procedure sedation or Phase 1 until post- sedation evaluation note is complete by procedure /sedation MD Sedation Discharge Instructions to be given to the patient at discharge to home.
--- NOTE | 2020-07-29 13:41 | Cardiac Catheterization ---
Cardiac Cath Procedure Full Procedure Date July 29, 2020 Pre-Procedure Diagnosis Pre-Procedure Diagnosis: Acute Coronary Syndrome, Angina, CAD and Cardiomyopathy AUC Score AUC Score: 8 Post-Procedure Diagnosis Post-Procedure Diagnosis: Severe CAD and Elevated Intracardiac Pressures Procedure(s) Performed Procedure(s) Performed: Coronary Angiography, Left Heart Cath and LV Angiography Parts Assembler Abdirahman Giles DO Modeling Agent(s) [place] SMALL ENGINE SPECIALIST Estimated Blood Loss Estimated Blood Loss: 5cc Medication(s) Medication(s): Fentanyl, Heparin, Lidocaine 1%, Nicardipine and Versed Summary of Findings Severe, 80-90% ostial RCA stenosis. Severity unchanged with injection of intracoronary nitroglycerin. 40% mid LAD. (Unchanged compared to catheterization 11/2018) 70% ostial OM1 (Unchanged compared to catheterization 11/2018) Elevated left ventricular end-diastolic pressure. No intracavitary left ventricular pressure gradient. 5 mmHg left ventricular outflow tract gradient. Hemodynamics Rest Ao:: 122/64/97 Final Ao: 134/71/98 LV: [place]: 126/22/37 Mid LV: 129/22/34 Recommendations Recommendations: PCI without planned CABG Specimens Specimens: None Radiation Exposure (mGy) 1671 Contrast (mls) 60 Fluids (cc crystalloids) Fluids (cc crystalloids): 60 Nss Drains Drains: N/A Anesthesia Moderate Sedation. Start 1224. End 1307. Procedural Complication(s) None Disposition Patient remained in Cage Loader for PCI of the RCA I attest to the content of the Intraoperative Record and any orders documented therein. Any exceptions are noted below. ACC Data: Cage Loader Cardiac Status Clinical evaluation leading to the procedure CAD Presenation: Unstable angina Anginal Classification: CCS IV Heart Failure: NYHA Class: CCS III Coronary Anatomy Dominant: Right Left Main (% Stenosis): Normal LAD (% Stenosis): Mid (40% distal to bifurcation of D1) D1 (% Stenosis): Proximal (20%) and Mid (30%) Circumflex (% Stenosis): Proximal (10-20% diffuse) and Mid (10-20% diffuse) OM1 (% Stenosis): Ostial (70%) OM2 (% Stenosis): Ostial (Large vessel giving rise to 3 subbranches perfusing the posterior lateral wall.), Proximal (20%) and Mid (Diffuse mild luminal irregularities, 20%, involving the mid to distal vessel and subbranches.) RCA (% Stenosis): Ostial (80-90% with catheter damping on engagement. 100mcg Intracoronary nitroglycerin injected without effect. ), Proximal (10%) and Mid (10%) R PDA (% Stenosis): Normal R PL1 (% Stenosis): Normal Diagnostic Physicians Name: Abdirahman Giles DO Status: Urgent Closure Device Percutaneous Entry Location: Radial Recommendations: PCI without planned CABG Intraprocedure Events Significant Disection: No Perforation: No
[2020-07-29] MEDS ORDERED: CLOPIDOGREL BISULFATE 300 MG TAB ONE (14:06)
--- NOTE | 2020-07-29 15:19 | Post Anesthesia Assessment ---
Date of Service July 29, 2020 Post Sedation Assessment Vital Signs Temp Pulse Pulse Pulse Pulse Resp BP 07/29/20 14:30 68 20 07/29/20 14:15 67 20 07/29/20 10:30 64 18 07/29/20 09:19 68 07/29/20 07:08 69 18 07/29/20 07:04 98.8 F 70 20 07/29/20 04:05 98.1 F 83 20 07/28/20 23:31 99.0 F 78 18 07/28/20 22:23 78 07/28/20 22:22 85 16 07/28/20 21:15 78 07/28/20 21:05 98.8 F 80 20 07/28/20 20:47 77 18 07/28/20 19:23 76 16 07/28/20 17:45 73 20 07/28/20 17:30 75 24 07/28/20 17:15 77 22 07/28/20 17:01 74 21 122/63 07/28/20 17:00 75 21 07/28/20 16:49 75 17 07/28/20 16:39 75 20 153/78 H 07/28/20 16:26 07/28/20 15:31 98.6 F 82 17 115/66 BP BP Pulse Ox 07/29/20 14:30 97/57 L 99 07/29/20 14:15 117/61 97 07/29/20 10:30 106/60 100 07/29/20 09:19 117/70 07/29/20 07:08 90 07/29/20 07:04 125/72 96 07/29/20 04:05 119/72 95 07/28/20 23:31 155/69 H 97 07/28/20 22:23 07/28/20 22:22 98 07/28/20 21:15 07/28/20 21:05 103/75 98 07/28/20 20:47 105/86 97 07/28/20 19:23 132/65 98 07/28/20 17:45 07/28/20 17:30 100 07/28/20 17:15 91 07/28/20 17:01 100 07/28/20 17:00 99 07/28/20 16:49 100 07/28/20 16:39 07/28/20 16:26 88 L 07/28/20 15:31 95 Recovery Score Activity: Moves 4 extremities Respiration: Deep Breath/Cough Circulation: +/-20% PreAnes Value Consciousness: Fully Awake Oxygen Saturation: O2 needed for >90% Post Anesthesia Score: 9 Discharge Sedation Level of Care: Fast Track Phase II Post Sedation Plan On clinical assessment, the patient appears to have tolerated the sedation without complications. Patient is recovering as anticipated. Patient will continue to be monitored by nursing and may be discharged when sedation discharge criteria are met per below protocol. Upon Completions of procedure up to 15 minutes continue every 5 minute vital signs and the P.A.R. score; then discharge to a Phase I or Fast Track to Phase II per the following guidelines: * Discharge Patient to appropriate Phase II area if PAR is 8 or greater or return to pre- procedure baseline. The post - procedure orders will be as di rected. * If PAR score is less than 8 or not return to pre-procedure baseline then patient will follow Phase I monitoring till PAR is reached for Phase II. The Phase I may be done in procedure room or may call to secure a Phase I area. * If naloxone or flumazenil are used for reversal, hold in Phase I for continued monitoring from when last reversal dose was given for a minimum of 60 minutes or longer pending the nurse and/or physician discretion of patient condition before discharge to Phase II. Please call the Sedation Physician to re-evaluate and complete post-note for discharge to Phase II area. Do NOT discharge from procedure sedation or Phase 1 until post- sedation evaluation note is complete by procedure /sedation MD Sedation Discharge Instructions to be given to the patient at discharge to home.
--- NOTE | 2020-07-29 15:22 | Cardiac Catheterization ---
[facility] Data: Coremaking Machine Operator Cardiac Status Clinical evaluation leading to the procedure CAD Presenation: Unstable angina Anginal Classification: CCS III Heart Failure: No Cardiogenic Shock within 24 Hours: No Cardiac Arrest within 24 Hours: No Imaging Studies Past 6 Months: Yes Stress Studies Past 6 Months: No Diagnostic Physicians Name: Oleksandr Dupree MD Status: Elective Closure Device Percutaneous Entry Location: Radial Closure Device: Radial Band Recommendations: PCI without planned CABG PCI Indication: Angina despite med therapy and Unstable Angina Lesion Segment Name: Ostial RCA Culprit Artery: Yes Stenosis Prior to Rx (%): 90 Chronic Total Occlusion: No IVUS: Yes FFR: No Pre-Procedure CHITRA Flow: 3 Previously Treated Lesion: No Lesion Complexity: High/C Lesion Length (mm): 10 Thrombus Present: No Bifurcation Lesion: Yes Guidewire Across Lesion: Stenosis Post-Procedure (%): 0 Post-Procedure CHITRA Flow: 3 Devices(s) Deployed: Yes Yes Intraprocedure Events Significant Disection: No Perforation: No Cardiac Cath Procedure Full Procedure Date July 29, 2020 Pre-Procedure Diagnosis Pre-Procedure Diagnosis: Acute Coronary Syndrome, Angina, CAD and Cardiomyopathy AUC Score AUC Score: 8 Post-Procedure Diagnosis Post-Procedure Diagnosis: Severe CAD and Successful PCI Procedure(s) Performed Procedure(s) Performed: Coronary Angiography, Drug Eluting Stent and IVUS Rail Loader Oleksandr Dupree MD Heating Element Builder(s) Ketty TAMAYO Estimated Blood Loss Estimated Blood Loss: 5cc Medication(s) Medication(s): Clopidogrel, Fentanyl, Heparin, Nicardipine, Nitroglycerin and Versed Summary of Findings Indication: Acute coronary syndrome, refractory angina Access: 6 Fr slender right radial artery Catheters: JR4 guide Findings: For full details of patient's coronary angiography please see cath report dictated by Dr. Giles. Briefly, patient found to have severe single vessel disease with a 90% ostial RCA stenosis. Decision to proceed with further assessment with IVUS and PCI. -- PCI -- Antithrombotic therapy: Heparin, clopidogrel Procedure: RCA cannulated with JR4 guide BMW wire passed across ostial lesion into distal vessel Prowater wire placed into aortic cusp IVUS used to evaluate for ostial disease for spasm. Found to have severe mildly calcified disease at ostium, stenosis greater than 80%. Ostial RCA lesion predilated with 2.5 compliant balloon Dilated lesion stented with 3.0 x 15 mm Xience Cheryl drug-eluting stent Stent post-dilated with 3.25 noncompliant balloon Repeat IVUS assessment showed well-expanded, well apposed stent ending just into aorta IC vasodilators administered for spasm Post procedure CHITRA 3 flow, stent well expanded with minimal residual stenosis and no apparent cardiac complications. Arterial Closure: TR band Summary: 1. Successful PCI of severe ostial RCA stenosis with single drug-eluting stent (3.0 x 15 mm Xience Cheryl; postdilated with 3.25 NC). Recommendations: To PCU for continued monitoring Loaded with clopidogrel 600 mg in Coremaking Machine Operator Continue dual-antiplatelet therapy for at least 6 months Continue statin, and ASCVD risk factor modification Consult cardiac Rehab Hemodynamics Rest Ao:: 148/80/110 Final Ao: 140/68/127 LV: -- Recommendations Recommendations: PCI without planned CABG Specimens Specimens: None Radiation Exposure (mGy) 3911 Contrast (mls) 95 Fluids (cc crystalloids) Fluids (cc crystalloids): 100 Drains Drains: N/A Anesthesia Moderate Sedation Procedural Complication(s) None Disposition PCU I attest to the content of the Intraoperative Record and any orders documented therein. Any exceptions are noted below. [facility] Card Cath Procedure Codes Therapeutic Services & Ancillary Proc Procedure 1: Cardiovascular Tx and Anc Procedures: 79140 IV Ultrasound (Coronary or Graft) Moderate Sedation Procedure 1: Sedation/Anesthesia: 73845 Mod Sedation by the same physician; Ea [id number] Minutes Stenting Procedure 1: Cardiovascular Stent Procedures: 76074 Perc transcatheter placement of intracoronary stent(s), with ang PG Care Time/CCT Total # of Minutes Spent Total Time Spent with Patient: Total time spent is greater than 50% in coordination of care (as documented) at patient's floor/unit and/or counseling patient:
[2020-07-29] MEDS ORDERED: SODIUM CHLORIDE 0.9% 500 ML IV SCH (15:30)
--- NOTE | 2020-07-29 17:28 | Hospitalist Progress Note ---
Date of Service July 29, 2020 Assessment & Plan (1) CAD (coronary artery disease), [place] coronary artery: C1-year-old female with history of CAD, [place], status post ICD, CHF diastolic type, Chronic respiratory failure on oxygen, obstructive sleep apnea, diabetes, hypertension, CKD, presenting with chest pain. Chest pain, severe CAD History of ICD placement, HOCM Acute coronary syndrome ruled out Status post cardiac cath with drug-eluting stent placement to the RCA Loaded with Plavix 600 mg, Plavix 70 mg p.o. daily added to usual aspirin Atorvastatin also started Continue Imdur, metoprolol Chronic diastolic heart failure (EF 70%, TTE 2019) Appears euvolemic Monitor Hypertension, stable HOCM, family history sudden cardiac sp ICD placement DM2 Insulin requiring, well-controlled as of recent hemoglobin A1c of 6.26 April 2020 Insulin sliding scale Chronic respiratory failure due to [place] (CPAP intolerance) on home O2 Respiratory status stable CKD creatinine at baseline Chronic anemia hemoglobin at baseline DVT prophylaxis Heparin subcu--> hold in light of today's cardiac cath Full code Care discussed in detail and at length with patient's Kimo at the bedside All questions answered He is understanding, agreeable, comfortable plan of care Admission and Anticipated Discharge Date Admission Date: July 28, 2020 Subjective ff up for chest pain seen resting in bed, sleeping, not in distress s/p cardiac cath with stent placement at bedside- requesting not to wake up patient as she has not slept well for a few weeks no issues since arriving from cardiac cath per Review of Systems Review of Systems: All systems reviewed & are unremarkable except as noted in HPI & below Physical Exam Physical Exam: General- breathing with no effort or accessory muscle use Head- atraumatic Eyes- PERRL, EOMI, anicteric ENT- oropharynx clear Neck- supple, no JVD, no adenopathy, no thyromegaly Lungs- clear to auscultation bilaterally, no rales/wheezes Heart- normal rate, regular rhythm; no murmur, no gallop, no rub appreciated Abdomen- normal bowel sounds, nondistended, soft, nontender, no masses or hepatosplenomegaly Extremities- no pretibial edema, no calf tenderness; peripheral pulses intact Neuro- sleeping Skin- warm & dry Results & Data Results & Data ([facility]) Vital Signs (Past 12 Hours) Vital Signs Temp Pulse Pulse Resp BP BP Pulse Ox 09/10/20 15:23 36.5 C 60 19 122/61 96 07/29/20 14:30 68 20 97/57 L 99 07/29/20 14:15 67 20 117/61 97 07/29/20 10:30 64 18 106/60 100 07/29/20 09:19 68 117/70 07/29/20 07:08 69 18 90 07/29/20 07:04 37.1 C 70 20 125/72 96 Laboratory Results Laboratory Results - last 24 hr 07/28/20 07/28/20 07/28/20 17:30 17:35 17:35 WBC 10.84 H RBC 4.26 Hgb 11.6 L Hct 37.3 MCV 87.6 MCH 27.2 MCHC 31.1 L RDW Std Deviation 59.4 H RDW Coeff of Rolan 18.8 H Plt Count 270 MPV 9.0 Immature Gran % (Auto) 0.4 Neut % (Auto) 84.1 Lymph % (Auto) 10.0 [place] % (Auto) 4.7 Eos % (Auto) 0.7 Baso % (Auto) 0.1 Neut # (Auto) 9.12 H Lymph # (Auto) 1.08 L [place] # (Auto) 0.51 Eos # (Auto) 0.08 Baso # (Auto) 0.01 Immature Gran # (Auto) 0.04 H PT Cancelled INR Cancelled APTT Cancelled PTT Ratio Cancelled Activ Coag Time [place]olin Sodium Potassium Chloride Carbon Dioxide Anion Gap BUN Creatinine Est Cr Clr Drug Dosing Est GFR ( Amer) Est GFR (Non-Af Amer) BUN/Creatinine Ratio Glucose POC Glucose Lactate Calcium Magnesium Total Bilirubin AST ALT Alkaline Phosphatase Troponin I Total Protein Albumin Globulin Albumin/Globulin Ratio Triglycerides Cholesterol LDL Cholesterol, Calc VLDL Cholesterol, Calc HDL Cholesterol Cholesterol/HDL Ratio Lipase Urine Color Yellow Urine Appearance Clear Urine pH 5.0 Ur Specific [place] 1.016 Urine Protein Negative Urine Glucose (UA) Negative Urine Ketones Negative Urine Blood Negative Urine Nitrite Negative Urine Bilirubin Negative Urine Urobilinogen Negative Ur Leukocyte Esterase Negative Lyme Disease IgG Ab Lyme Disease IgM Ab 07/28/20 07/28/20 07/28/20 17:35 17:35 20:26 WBC RBC Hgb Hct MCV MCH MCHC RDW Std Deviation RDW Coeff of Rolan Plt Count MPV Immature Gran % (Auto) Neut % (Auto) Lymph % (Auto) [place] % (Auto) Eos % (Auto) Baso % (Auto) Neut # (Auto) Lymph # (Auto) [place] # (Auto) Eos # (Auto) Baso # (Auto) Immature Gran # (Auto) PT INR APTT 23.4 PTT Ratio 0.8 Activ Coag Time [place] Sodium 143 Potassium 4.3 Chloride 113 H Carbon Dioxide 23 Anion Gap 7.0 BUN 29 H Creatinine 1.29 H Est Cr Clr Drug Dosing 40.2 Est GFR ( Amer) 51.4 Est GFR (Non-Af Amer) 44.3 BUN/Creatinine Ratio 22.1 H Glucose 114 H POC Glucose Lactate 1.6 Calcium 9.7 Magnesium 2.5 H Total Bilirubin 0.6 AST 15 ALT 29 Alkaline Phosphatase 150 H Troponin I 0.133 H* Total Protein 7.9 Albumin 3.8 Globulin 4.1 H Albumin/Globulin Ratio 0.9 Triglycerides Cholesterol LDL Cholesterol, Calc VLDL Cholesterol, Calc HDL Cholesterol Cholesterol/HDL Ratio Lipase Urine Color Urine Appearance Urine pH Ur Specific [place] Urine Protein Urine Glucose (UA) Urine Ketones Urine Blood Urine Nitrite Urine Bilirubin Urine Urobilinogen Ur Leukocyte Esterase Lyme Disease IgG Ab Lyme Disease IgM Ab 07/28/20 07/28/20 07/28/20 20:26 20:26 20:26 WBC RBC Hgb Hct MCV MCH MCHC RDW Std Deviation RDW Coeff of Rolan Plt Count MPV Immature Gran % (Auto) Neut % (Auto) Lymph % (Auto) [place] % (Auto) Eos % (Auto) Baso % (Auto) Neut # (Auto) Lymph # (Auto) [place] # (Auto) Eos # (Auto) Baso # (Auto) Immature Gran # (Auto) PT INR APTT PTT Ratio Activ Coag Time [place] Sodium Potassium Chloride Carbon Dioxide Anion Gap BUN Creatinine Est Cr Clr Drug Dosing Est GFR ( Amer) Est GFR (Non-Af Amer) BUN/Creatinine Ratio Glucose POC Glucose Lactate 1.0 Calcium Magnesium Total Bilirubin AST ALT Alkaline Phosphatase Troponin I 0.179 H* Total Protein Albumin Globulin Albumin/Globulin Ratio Triglycerides Cholesterol LDL Cholesterol, Calc VLDL Cholesterol, Calc HDL Cholesterol Cholesterol/HDL Ratio Lipase 152 Urine Color Urine Appearance Urine pH Ur Specific [place] Urine Protein Urine Glucose (UA) Urine Ketones Urine Blood Urine Nitrite Urine Bilirubin Urine Urobilinogen Ur Leukocyte Esterase Lyme Disease IgG Ab Negative Lyme Disease IgM Ab Negative 07/28/20 07/28/20 07/28/20 21:29 22:34 22:49 WBC RBC Hgb Hct MCV MCH MCHC RDW Std Deviation RDW Coeff of Rolan Plt Count MPV Immature Gran % (Auto) Neut % (Auto) Lymph % (Auto) [place] % (Auto) Eos % (Auto) Baso % (Auto) Neut # (Auto) Lymph # (Auto) [place] # (Auto) Eos # (Auto) Baso # (Auto) Immature Gran # (Auto) PT INR APTT PTT Ratio Activ Coag Time [place] Sodium Potassium Chloride Carbon Dioxide Anion Gap BUN Creatinine Est Cr Clr Drug Dosing Est GFR ( Amer) Est GFR (Non-Af Amer) BUN/Creatinine Ratio Glucose POC Glucose 91 139 H Lactate Calcium Magnesium Total Bilirubin AST ALT Alkaline Phosphatase Troponin I 0.168 H* Total Protein Albumin Globulin Albumin/Globulin Ratio Triglycerides Cholesterol LDL Cholesterol, Calc VLDL Cholesterol, Calc HDL Cholesterol Cholesterol/HDL Ratio Lipase Urine Color Urine Appearance Urine pH Ur Specific [place] Urine Protein Urine Glucose (UA) Urine Ketones Urine Blood Urine Nitrite Urine Bilirubin Urine Urobilinogen Ur Leukocyte Esterase Lyme Disease IgG Ab Lyme Disease IgM Ab 07/29/20 07/29/20 07/29/20 05:58 06:02 06:02 WBC 10.24 RBC 4.28 Hgb 11.5 L Hct 37.6 MCV 87.9 MCH 26.9 MCHC 30.6 L RDW Std Deviation 59.9 H RDW Coeff of Rolan 18.9 H Plt Count 264 MPV 9.1 Immature Gran % (Auto) 0.3 Neut % (Auto) 84.0 Lymph % (Auto) 9.8 [place] % (Auto) 4.6 Eos % (Auto) 1.2 Baso % (Auto) 0.1 Neut # (Auto) 8.61 H Lymph # (Auto) 1.00 L [place] # (Auto) 0.47 Eos # (Auto) 0.12 Baso # (Auto) 0.01 Immature Gran # (Auto) 0.03 H PT INR APTT PTT Ratio Activ Coag Time [place] Sodium 145 Potassium 4.5 Chloride 115 H Carbon Dioxide 21 Anion Gap 9.0 BUN 22 H Creatinine 1.12 Est Cr Clr Drug Dosing 46.2 Est GFR ( Amer) 61.0 Est GFR (Non-Af Amer) 52.6 BUN/Creatinine Ratio 19.4 Glucose 130 H POC Glucose 128 H Lactate Calcium 9.4 Magnesium Total Bilirubin AST ALT Alkaline Phosphatase Troponin I 0.170 H* Total Protein Albumin Globulin Albumin/Globulin Ratio Triglycerides 173 H Cholesterol 173 LDL Cholesterol, Calc 101 VLDL Cholesterol, Calc 35 HDL Cholesterol 37 Cholesterol/HDL Ratio 5 Lipase Urine Color Urine Appearance Urine pH Ur Specific [place] Urine Protein Urine Glucose (UA) Urine Ketones Urine Blood Urine Nitrite Urine Bilirubin Urine Urobilinogen Ur Leukocyte Esterase Lyme Disease IgG Ab Lyme Disease IgM Ab 07/29/20 07/29/20 07/29/20 13:42 14:07 16:10 WBC RBC Hgb Hct MCV MCH MCHC RDW Std Deviation RDW Coeff of Rolan Plt Count MPV Immature Gran % (Auto) Neut % (Auto) Lymph % (Auto) [place] % (Auto) Eos % (Auto) Baso % (Auto) Neut # (Auto) Lymph # (Auto) [place] # (Auto) Eos # (Auto) Baso # (Auto) Immature Gran # (Auto) PT INR APTT PTT Ratio Activ Coag Time Ka[place] 241 H 290 H Sodium Potassium Chloride Carbon Dioxide Anion Gap BUN Creatinine Est Cr Clr Drug Dosing Est GFR ( Amer) Est GFR (Non-Af Amer) BUN/Creatinine Ratio Glucose POC Glucose 116 H Lactate Calcium Magnesium Total Bilirubin AST ALT Alkaline Phosphatase Troponin I Total Protein Albumin Globulin Albumin/Globulin Ratio Triglycerides Cholesterol LDL Cholesterol, Calc VLDL Cholesterol, Calc HDL Cholesterol Cholesterol/HDL Ratio Lipase Urine Color Urine Appearance Urine pH Ur Specific [place] Urine Protein Urine Glucose (UA) Urine Ketones Urine Blood Urine Nitrite Urine Bilirubin Urine Urobilinogen Ur Leukocyte Esterase Lyme Disease IgG Ab Lyme Disease IgM Ab (1) CAD (coronary artery disease), [place] coronary artery [place] vs. transplanted heart: [place] heart Associated angina: with unstable angina Qualified Code(s): I25.110 - Atherosclerotic heart disease of [place] coronary artery with unstable angina pectoris
--- NOTE | 2020-07-29 18:55 | Electrocardiogram Report ---
Test Reason : Blood Pressure : / mmHG Vent. Rate : 074 BPM Atrial Rate : 074 BPM P-R Int : 164 ms QRS Dur : 094 ms QT Int : 444 ms P-R-T Axes : -03 012 135 degrees QTc Int : 492 ms Poor data quality, interpretation may be adversely affected Sinus rhythm with Premature atrial complexes T wave abnormality, consider lateral ischemia Abnormal ECG When compared with ECG of 07-JUL-2020 18:19, Sinus rhythm has replaced Electronic atrial pacemaker Nonspecific T wave abnormality now evident in Inferior leads T wave inversion more evident in Lateral leads Confirmed by Oleksandr Gann ([id number] on 07/29/2020 6:55:26 PM Referred By: REFERRED SELF Confirmed By:Lavelle Gann
[2020-07-29] MEDS: FOLIC ACID 1 MG TAB PO SCH (20:46)
[2020-07-29] MEDS: ROPINIROLE HCL 0.25 MG TABLET PO SCH (20:47)
[2020-07-29] MEDS: MIRTAZAPINE SOLTAB 15 MG PO SCH (21:35)
[2020-07-30] MEDS: INSULIN ASPART 100 UNITS/ML 3 ML PEN SC SCH ×4 (00:39→17:53)
[2020-07-30] MEDS: BUDESONIDE 0.5 MG/2 ML VIAL (PULMICORT) INH SCH (07:15)
[2020-07-30] MEDS: FLUTICASONE/VILANTEROL 200/25MCG 14 PUFFS/INHALER INH SCH (08:14)
[2020-07-30] MEDS: VERAPAMIL HCL 40 MG TAB PO SCH ×3 (08:14→17:50)
[2020-07-30] MEDS: GABAPENTIN 300 MG CAP PO SCH ×2 (08:15→13:05)
[2020-07-30] MEDS: DULOXETINE HCL 60 MG CAP PO SCH (08:15)
[2020-07-30] MEDS: ATORVASTATIN 40 MG TAB PO SCH (08:16)
[2020-07-30] MEDS: PANTOprazole 40 MG TAB PO SCH (08:16)
[2020-07-30] MEDS: METOPROLOL SUCC 50MG EXT REL TAB PO SCH (08:16)
[2020-07-30] MEDS: LACTOBACILLUS ACIDOPHILUS (FLORANEX) TAB PO SCH ×2 (08:17→13:05)
[2020-07-30] MEDS: ISOSORBIDE MONO EXTENDED REL 30 MG TABCR PO SCH (08:17)
[2020-07-30] MEDS: DULOXETINE HCL 30 MG CAP PO SCH (08:17)
[2020-07-30] MEDS: ASPIRIN 81 MG ECTAB PO SCH (08:18)
[2020-07-30] MEDS: ACETAMINOPHEN 325 MG TAB PO PRN (08:31)
[2020-07-30] MEDS ORDERED: CLOPIDOGREL BISULFATE 75 MG TAB PO SCH (09:00)
--- NOTE | 2020-07-30 10:07 | Cardiology Progress Note ---
Date of Service July 30, 2020 Assessment & Plan (1) S/P right coronary artery (RCA) stent placement: (2) CAD (coronary artery disease), [place] coronary artery: (3) Elevated troponin: (4) Hypertrophic cardiomyopathy: (5) Cardiac defibrillator in place: Ostial right coronary artery stent placed 07/29/2020 without complication. Discussed importance of continuing dual antiplatelet therapy for minimum of 6 months post percutaneous intervention, preferably 1 year. Repeat basic metab olic panel ordered. Other cardiovascular medications will be continued as ordered prior to hospitalization. Post cardiac catheterization activity restrictions listed below. All questions answered to patient satisfaction. She may be discharged home today if repeat BMP stable. Follow-up with cardiology in 2 to 4 weeks. Thank you for allowing to participate in the care of your patient. ACTIVITY RECOMMENDATIONS: It is common to feel weak and fatigue for a few days. * Do not drive or operate any motorized equipment for the next three days. * Limit stair usage (2 or 3 trips a day only) for the next three days. * Do not lift anything heavier than 10 pounds for the next three days. * Do not engage in vigorous exercise or any sports for the next five days. * You may shower the day after your procedure, but do not immerse the area for three days. Cleanse the site gently with soap and water. SPECIAL CARE INSTRUCTIONS: * You may replace the pressure dressing or band-aid the morning after the procedure. * After your procedure, it is normal to have a small bruise or small lump at the site. Examine your site daily for any change in the bruise or lump, redness, swelling, drainage or numbness. Notify your doctor if any change. BLEEDING: * If there is a small amount of bleeding at the site, lie down and apply firm pressure with a clean cloth for ten minutes. When the bleeding stops, lie quietly keeping the procedure limb straight for six hours. Notify your doctor as soon as possible. * If the bleeding does not stop after ten minutes or if there is a large amount of bleeding or spurting, call 911 immediately. Continue to lie down and hold firm pressure until help arrives. SKIN IRRITATION: * You may experience some redness and/or swelling in the area where radiation was administered. If any skin irritation occurs, please contact your family physician. FOLLOW UP VISIT: Keep any scheduled doctor appointments. Admission and Anticipated Discharge Date Admission Date: July 29, 2020 Subjective Patient seen and examined at the bedside. No recurrent chest discomfort overnight. Telemetry demonstrates atrial paced rhythm. Reports mild soreness involving her right anterior wrist. Mild ecchymosis noted. No hematoma. Denies orthopnea, PND, or palpitations. No signs/symptoms of GI/ blood loss. Offers no other concerns/complaints this time Review of Systems Review of Systems: All systems reviewed & are unremarkable except as noted in HPI & below Physical Exam Constitutional: well nourished and + obese ENMT: Mallampati Class: IV Respiratory: normal respiratory effort, lungs clear to auscultation Auscultation: no crackles, no rales, no rhonchi and no wheezes Cardiovascular: Rate/Rhythm: regular rate and regular rhythm Heart Sounds: normal S1 and normal S2; no murmur and no cardiac rub Vessels: femoral pulses present and radial pulses present (Right anterior wrist ecchymosis without hematoma noted.); no JVD Extremities: + edema (Trace bilateral pedal edema) Gastrointestinal (Abdomen): Inspection/Auscultation: abdomen normal to inspection and normal bowel sounds; abdomen not distended Percussion/Palpation: abdomen soft; abdomen nontender, no guarding and abdomen not rigid Skin: no rashes, warm and dry Neurologic: CN's II-XI intact bilaterally and moves all extremities; no focal motor deficits Speech / Cognition: normal speech Psychiatric: A+Ox3, euthymic affect Results & Data ([facility]) Vital Signs (Past 12 Hours) Vital Signs Temp Pulse Pulse Resp BP BP Pulse Ox 07/30/20 07:17 75 18 98 07/30/20 07:03 37 C 80 20 118/69 92 07/30/20 03:50 36.7 C 70 18 102/58 L 95 07/29/20 23:44 36.6 C 71 18 109/53 L 98 07/29/20 23:34 62 (1) CAD (coronary artery disease), [place] coronary artery [place] vs. transplanted heart: [place] heart Associated angina: with unstable angina Qualified Code(s): I25.110 - Atherosclerotic heart disease of [place] coronary artery with unstable angina pectoris
[2020-07-30 10:42] LABS: BUN Creatinine Ratio 17.3 (10-20); Calcium 9.1 mg/dl (8.5-10.1); Creatinine Clr Calc Pharmacy 39.2 ml/min; Est GFR (Non-African American) 43.1; Potassium 4.1 mmol/L (3.5-5.1)
--- NOTE | 2020-07-30 14:17 | Hospitalist Progress Note ---
Date of Service July 30, 2020 Assessment & Plan (1) CAD (coronary artery disease), [place] coronary artery: 60-year-old female with history of CAD, HOCM, status post ICD, CHF Diastolic type, Chronic respiratory failure on oxygen, obstructive sleep apnea, diabetes, hypertension, CKD, presenting with chest pain. Chest pain, Severe CAD History of ICD placement, HOCM Acute coronary syndrome ruled out Status post cardiac cath with drug-eluting stent placement to the RCA Loaded with Plavix 600 mg, Plavix 75 mg p.o. daily added to usual aspirin Atorvastatin also started Continued on Imdur, metoprolol By cardiology service for discharge today Dual antiplatelet with aspirin and Plavix for at least 6 months Follow-up with manufacturing finance manager in 2 to 4 weeks Cough, congestion Associated with sore throat, chills, occasional yellow sputum X-ray: No pneumonia COVID test ordered, pending Chronic diastolic heart failure (EF 70%, TTE 2019) Euvolemic Monitor Hypertension stable HOCM family history of sudden cardiac sp ICD placement DM2 Insulin requiring, well-controlled as of recent hemoglobin A1c of 6.26 April 2020 Insulin sliding scale Chronic respiratory failure due to CADENCE (CPAP intolerance) on home O2 Respiratory status stable CKD creatinine at baseline Chronic anemia hemoglobin at baseline DVT prophylaxis Heparin subcu--> held in light of today's cardiac cath Full code Disposition d/c home today when COVID test is negative Admission and Anticipated Discharge Date Admission Date: July 29, 2020 Subjective Follow-up for chest pain Seen resting in bed comfortable, sitting up, not in distress States she feels fine overall except nasal congestion, cough, with yellow sputum, sore throat, chills at home Chest pain overnight, resolved today, no shortness of breath, no dizziness, no palpitation Denies other symptoms Review of Systems Review of Systems: All systems reviewed & are unremarkable except as noted in HPI & below Physical Exam Physical Exam: General- oriented x 3, not in distress, speaks in sentences with no effort or accessory muscle use Eyes- anicteric Neck- no JVD Lungs- clear breath sounds bilaterally, no rales/wheezes Heart- normal rate, regular rhythm; no murmurs Abdomen- normal bowel sounds, nondistended, soft, nontender Extremities- no pretibial edema, no calf tenderness Neuro- alert, oriented x 3; no gross focal neurologic deficits Skin- warm & dry Results & Data Results & Data ([place]) Vital Signs (Past 12 Hours) Vital Signs Temp Pulse Resp BP Pulse Ox 07/30/20 11:58 36.8 C 66 19 111/56 L 91 07/30/20 07:17 75 18 98 07/30/20 07:03 37 C 80 20 118/69 92 07/30/20 03:50 36.7 C 70 18 102/58 L 95 Laboratory Results Laboratory Results - last 24 hr 07/29/20 07/29/20 07/29/20 13:42 14:07 16:10 Activ Coag Time Kaolin 241 H 290 H Sodium Potassium Chloride Carbon Dioxide Anion Gap BUN Creatinine Est Cr Clr Drug Dosing Est GFR ( Amer) Est GFR (Non-Af Amer) BUN/Creatinine Ratio Glucose POC Glucose 116 H Calcium 07/30/20 07/30/20 07/30/20 00:28 06:27 10:06 Activ Coag Time Kaolin Sodium 144 Potassium 4.1 Chloride 116 H Carbon Dioxide 20 L Anion Gap 8.0 BUN 23 H Creatinine 1.32 H Est Cr Clr Drug Dosing 39.2 Est GFR ( Amer) 50.0 Est GFR (Non-Af Amer) 43.1 BUN/Creatinine Ratio 17.3 Glucose 143 H POC Glucose 74 111 H Calcium 9.1 (1) CAD (coronary artery disease), [place] coronary artery [place] vs. transplanted heart: [place] heart Associated angina: with unstable angina Qualified Code(s): I25.110 - Atherosclerotic heart disease of [place] coronary artery with unstable angina pectoris
--- NOTE | 2020-07-30 17:45 | Discharge Summary ---
Date of Service July 30, 2020 Admission HPI Per Admitting Provider History obtained from patient, , and records. Medical history significant for chronic respiratory failure due to CADENCE (CPAP intolerance) on home O2, chronic diastolic heart failure (EF 70%, TTE 2019), CAD as per records, hypertension, HOCM, family history sudden cardiac sp ICD placement, DM2 insulin requiring, restless leg syndrome as per records, CRI (baseline creatinine 1.4), chronic anemia (baseline hemoglobin 11), mood disorder. Last confinement April 2020 for acute pyelonephritis. Recent ER visit last month for UTI symptoms and achiness. Patient discharged on cefdinir course. Persistent achiness the last 3 weeks. Intermittent substernal discomfort going to her left arm with some shortness of breath. Occurring 3 times a week as per patient. Weight gain of 10 pounds in the last 3 months as per patient. No unusual stress at home. Possible insect bite left leg a few days ago. Patient seen at commercial real estate broker's office last week. Low-dose nitrate recommended. Diagnostic cardiac cath tentatively scheduled for next week. Worsening achy lower abdominal discomfort today with good BM. No fever, no chills, no hematuria. Stools kind of loose but not diarrhea as per patient. No actual chest pain today. Patient brought to ER by . 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 Admission Exam Per Admitting Provider GENERAL: uncomfortable, anxious, obese, no respiratory distress, slightly restless SKIN: Pallor, warm HEENT: Pale palpebral conjunctivae, no ptosis, moist buccal mucosa, nasal cannula in place NECK : Supple, short neck, no tenderness CHEST : Decreased breath sounds, minimal chest wall tenderness HEART : RRR, no obvious murmurs ABDOMEN: Some distention, nontender EXTREMITIES : Minimal LE swelling, no LE tenderness, no other conspicuous deformities noted NEUROLOGIC : Coherent, no facial asymmetry, no other gross focality Principal Diagnosis SEVERE CORONARY ARTERY DISEASE, STATUS POST DRUG-ELUTING STENT PLACEMENT TO THE RIGHT CORONARY ARTERY Discharge Exam General- oriented x 3, not in distress, speaks in sentences with no effort or accessory muscle use Eyes- anicteric Neck- no JVD Lungs- clear breath sounds bilaterally, no rales/wheezes Heart- normal rate, regular rhythm; no murmurs Abdomen- normal bowel sounds, nondistended, soft, nontender Extremities- no pretibial edema, no calf tenderness Neuro- alert, oriented x 3; no gross focal neurologic deficits Skin- warm & dry Discharge Data Allergies Allergy/AdvReac Type Severity Reaction Status Date / Time Penicillins Allergy Intermediate Flushing, Verified 07/28/20 17:18 Itchiness Sulfa (Sulfonamide Allergy Intermediate Swelling Verified 07/28/20 17:18 Antibiotics) doxycycline Allergy Unknown Unknown Verified 07/28/20 17:18 adhesive AdvReac Intermediate Blistering Verified 07/28/20 17:18 Consultations 07/28/20 18:37 ED Decision to Admit Stat 07/28/20 21:17 Consult Cardiology Routine 07/29/20 10:32 Consult Cardiac Catheterization Routine Procedures Performed Operation Date: 07/29/20 11:00 Actual Procedures p Cath, Left with Cors and Vent - DO anival Cutler Cineradiography w/Routine Exam - DO anival Cutler Drug Eluting Stent SGl Vessel - Jim Dupree MD Ordered Studies 07/28/20 16:27 CT abd pelvis wo con Stat COMPARISON STUDY: CT abdomen and pelvis 07/07/2020, 02/07/2017. FINDINGS: Unchanged cardiomegaly with partially imaged pacer leads. Bibasilar groundglass opacities with areas of mosaic attenuation may represent probable atelectasis. The study is mildly motion degraded. There is no pneumatosis or pneumoperitoneum. The spleen is enlarged measuring up to 14.1 cm. The liver is also mildly enlarged with mild hepatic steatosis. No hepatic mass lesion. Mildly contracted gallbladder. 2.5 cm cystic lesion of the pancreatic head is unchanged dating back to 2017 suggestive of benign etiology such as a sidebranch IPMN. There is no pancreatic ductal dilation. Unremarkable adrenal glands. Unchanged cortical thinning of the bilateral kidneys. No ureteral calculi. There is unchanged moderate right-sided hydronephrosis with findings suggestive of chronic UPJ obstruction. The urinary bladder, uterus and adnexa are unremarkable . Calcified plaque of the abdominal aorta. There is no adenopathy. No bowel obstruction or bowel wall thickening. Moderate fecal retention. Colonic diverticulosis. The appendix is not diagnostically visualized it is reportedly surgically absent. There is no ascites or mesenteric inflammation. Diastases recti with several fat filled ventral abdominal wall hernias. There is a small supraumbilical hernia which contains a nonobstructed loop of small bowel, image 234 series 3 with diastases 1.9 cm. Periumbilical hernia also contains a nonobstructed loop of small bowel. Left lateral abdominal wall fat filled hernia, diastases 2.2 cm. Degenerative changes of the spine, pelvis and hips. IMPRESSION: 1. No acute intra-abdominal or intrapelvic abnormality. 2. Unchanged moderate right-sided hydronephrosis with findings suggestive of chronic UPJ obstruction 3. No bowel obstruction or bowel wall thickening 4. Moderate fecal retention 5. Hepatic steatosis with hepatosplenomegaly. 6. Multiple fat and bowel filled ventral abdominal wall hernias 7. Additional findings as above. 07/29/20 12:14 CL Cath Imgs for PACS use only Routine 07/29/20 16:52 CL IVUS Coronary Single Vessel Routine Hospital Course (1) CAD (coronary artery disease), [place] coronary artery: 60-year-old female with history of CAD, HOCM, status post ICD, CHF Diastolic type, Chronic respiratory failure on oxygen, obstructive sleep apnea, diabetes, hypertension, CKD, presenting with chest pain. Chest pain, Severe CAD History of ICD placement, HOCM Acute coronary syndrome ruled out Status post cardiac cath with drug-eluting stent placement to the RCA Loaded with Plavix 600 mg, Plavix 75 mg p.o. daily added to usual aspirin Continued on atorvastatin, Imdur, metoprolol Cleared by cardiology service for discharge today Dual antiplatelet with aspirin and Plavix for at least 6 months Follow-up with commercial real estate broker in 2 to [address] abdomen and pelvis findings (Please refer to full report in the the ordered studies section) The spleen is enlarged measuring up to 14.1 cm. The liver is also mildly enlarged with mild hepatic steatosis. There is unchanged moderate right-sided hydronephrosis with findings suggestive of chronic UPJ obstruction Multiple fat and bowel filled ventral abdominal wall hernias --Further management and follow-up as an outpatient Cough, congestion Associated with sore throat, chills, occasional yellow sputum X-ray: No pneumonia COVID test: Negative Afebrile, no leukocytosis Clear breath sounds on the exam Possible viral upper respiratory infection versus allergy Follow-up with PCP next week Chronic diastolic heart failure (EF 70%, TTE 2019) Euvolemic Monitor Hypertension stable HOCM family history of sudden cardiac sp ICD placement DM2 Insulin requiring, well-controlled as of recent hemoglobin A1c of 6.26 April 2020 Resume usual regimen Chronic respiratory failure due to CADENCE (CPAP intolerance) on home O2 Respiratory status stable CKD creatinine at baseline Chronic anemia hemoglobin at baseline Disposition d/c home Follow-up with PCP next week, [facility] [address] will be calling patient for appointment Follow-up with commercial real estate broker as scheduled Plan of care discussed with patient in detail and at length All questions were answered She is understanding, agreeable, comfortable plan of care Total Time Total Time Spent Total Time Spent (In Minutes): 50 minutes Discharge Plan Discharge Items Patient Disposition: Home - Self-Care Reason For Visit: CHEST PAIN Discharge Diagnosis: CHEST PAIN: ARTERY DISEASE, STATUS POST RIGHT CORONARY ARTERY STENT PLACEMENT Activity: Resume your previous activity Activity Comment: Resume activity gradually as tolerated Lifting: Wait until after follow-up appointment Exercise/Sports: Wait until after follow-up appointment Driving/Machine Use: No driving until reevaluated and allowed by primary care physician Non-emergency contact: Primary Care Provider Call non-emergency contact if: you have any medication questions, your symptoms worsen, your pain is not controlled, your pain is worsening, your pain is concerning for you and you have a fever Follow-up/Referrals: Abdirahman Giles DO [Emt/Paramedic] - 08/09/20 1:00 pm Diet: Carb Consistent or DM2 and Heart Healthy Addtl Attending Provider Instructions: Your new medication is Plavix- an antiplatelet medication to prevent heart attacks. You should take Aspirin and Plavix every single day. Resume your Metformin on Saturday, August 01, 2020. Call 911 immediately if you have chest pain unrelieved by 1 dose of nitroglycerin. Follow-up with primary care physician Dr. Ortiz Narayan on July at 11:20 AM at [facility]. Follow-up with commercial real estate broker Dr. Giles as outlined above It is common to feel weak and fatigue for a few days. * Do not drive or operate any motorized equipment for the next three days. * Limit stair usage (2 or 3 trips a day only) for the next three days. * Do not lift anything heavier than 10 pounds for the next three days. * Do not engage in vigorous exercise or any sports for the next five days. * You may shower the day after your procedure, but do not immerse the area for three days. Cleanse the site gently with soap and water. SPECIAL CARE INSTRUCTIONS: * You may replace the pressure dressing or band-aid the morning after the procedure. * After your procedure, it is normal to have a small bruise or small lump at the site. Examine your site daily for any change in the bruise or lump, redness, swelling, drainage or numbness. Notify your doctor if any change. BLEEDING: * If there is a small amount of bleeding at the site, lie down and apply firm pressure with a clean cloth for ten minutes. When the bleeding stops, lie quietly keeping the procedure limb straight for six hours. Notify your doctor as soon as possible. * If the bleeding does not stop after ten minutes or if there is a large amount of bleeding or spurting, call 911 immediately. Continue to lie down and hold firm pressure until help arrives. SKIN IRRITATION: * You may experience some redness and/or swelling in the area where radiation was administered. If any skin irritation occurs, please contact your family physician. FOLLOW UP VISIT: Keep any scheduled doctor appointments. Pending Studies at Discharge: Yes Studies:: Repeat blood work/basic metabolic profile on follow-up with PCP next week. Stand-Alone Forms: [facility] [employer], Smoking Cessation Medications and DC Order Prescriptions: New clopidogrel 75 mg Tablet 75 mg PO QAM Qty: 30 RF: 2 Continued duloxetine 60 mg Capsule,Delayed Release(Dr/Ec) 60 mg PO QAM RF: 0 folic acid 1 mg Tablet 1 mg PO HS RF: 0 sumatriptan succinate 25 mg Tablet 50 mg PO DIRECTED PRN (Reason: Migraine Headache) RF: 0 gabapentin 300 mg capsule 300 mg PO TID RF: 0 albuterol sulfate [Ventolin HFA] 90 mcg/actuation Hfa Aerosol Inhaler 2 puff INHALATION Q4H PRN (Reason: Wheezing) RF: 0 ondansetron 4 mg tablet,disintegrating 4 mg translingual Q8H PRN (Reason: Nausea) RF: 0 duloxetine 30 mg capsule,delayed release(DR/EC) 30 mg PO QAM RF: 0 nitroglycerin [Nitrostat] 0.4 mg tablet, sublingual 0.4 mg sublingual DIRECTED PRN (Reason: Chest Pain) RF: 0 fluticasone propion-salmeterol [Advair Diskus] 500-50 mcg/dose Blister With Device 1 inh INHALATION BID RF: 0 spironolactone [Aldactone] 25 mg Tablet 25 mg PO QAM RF: 0 metoprolol succinate 100 mg tablet extended release 24 hr 100 mg PO BID RF: 0 mirtazapine 45 mg Tablet 45 mg PO HS RF: 0 ropinirole 0.5 mg Tablet 0.5 mg PO HS RF: 0 atorvastatin [Lipitor] 40 mg tablet 40 mg PO QAM RF: 0 acetaminophen [Tylenol Extra Strength] 500 mg Tablet 1,500 mg PO UD PRN (Reason: Pain) RF: 0 isosorbide mononitrate 30 mg Tablet Extended Release 24 Hr 30 mg PO QAM RF: 0 pantoprazole 40 mg Tablet,Delayed Release (Dr/Ec) 40 mg PO BID RF: 0 aspirin 81 mg Tablet,Chewable 81 mg PO DAILY RF: 0 Januvia 100 mg Tablet 100 mg PO DAILY RF: 0 Lactobacillus acidoph-L.bulgar [Floranex] 1 million cell Tablet 1 tab PO TID RF: 0 albuterol sulfate 2.5 mg /3 mL (0.083 %) solution for nebulization 3 ml Inhalation Q4H PRN (Reason: Wheezing) RF: 0 diphenoxylate-atropine [Lomotil] 2.5-0.025 mg Tablet 1 tab PO QID PRN (Reason: Diarrhea) RF: 0 verapamil 40 mg tablet 40 mg PO QID RF: 0 torsemide 10 mg Tablet 10 mg PO QAM RF: 0 budesonide 0.5 mg/2 mL suspension for nebulization 0.5 mg inhalation BID RF: 0 insulin asp prt-insulin aspart [Novolog Mix 70-30FlexPen U-100] 100 unit/mL (70-30) insulin pen 55 unit SUBCUT DAILYBB RF: 0 insulin asp prt-insulin aspart [Novolog Mix 70-30FlexPen U-100] 100 unit/mL (70-30) insulin pen 25 unit SUBCUT DAILYBD RF: 0 metformin [Glucophage] 500 mg Tablet 500 mg PO BIDM Qty: 0 RF: 0 Discharge Orders: Discharge Order (Routine); Ordered 07/30/20 Ordered By: Aniceto Patterson Admission Data Admit Date/Time: 07/29/20 18:51 Attending Provider: Aniceto Patterson Admit Provider: González Carter Primary Care Provider: Suad De León Other Providers: Winnie Ramirez ; Luther Verdugo ; Hammad Sandhu ; Sb Bruno ; Abdirahman Giles ; Brennan Grant ; Fredis Carlisle ; Sheryl Cabrera ; Francine Jackson ; Woody Corley
== END 2020-07-30 18:30 | disposition home or self-care (01) | DRG 247 ==
LOC: 2E 15:25 → ED 15:25 → 2E 20:42

== ENCOUNTER 2020-08-21 20:14 | Inpatient (IN) ==
[2020-08-21] MEDS ORDERED: FUROSEMIDE 40 MG/4 ML VIAL IV STA (20:29)
--- NOTE | 2020-08-21 20:35 | Emergency Department Note ---
History of Present Illness General Chief complaint: Shortness of Breath/Dyspnea Stated complaint: CANT BREATH Time Seen by Provider: 08/21/20 20:22 Source: patient History of Present Illness Provider complaint: Chest pain Onset (ago): hour(s) Location: chest Radiation: non-radiation Pain Consistency: + intermittent and + now resolved Quality: + other (Tightness) Relieved By: + none Associated symptoms: + cough (Chronic unchanged cough), + diaphoresis, + shortness of breath and + other (Chronic loss of taste and smell for years); no fever/chills This is a 60-year-old female with a history of CAD and CHF presenting with chest pain and shortness of breath. Her symptoms started sometime this morning. She has had intermittent chest tightness to the middle of her chest without radiation. It is associated with diaphoresis and shortness of breath. She states that her chest pain is now gone. She had similar symptoms when she was admitted last month and had a cardiac stent placed. She also states of continued swelling to her legs. She denies any fevers but states that she has had low-grade temperature for weeks. She was tested for COVID-19 last month and it was negative. She does complain of a chronic cough which is unchanged. She also states that she has no sense of taste or smell but this is been going on for years. She denies abdominal pain but states that she has had bloating. She denies vomiting or diarrhea. Home Medications Home Medications Medication Instructions Recorded Confirmed Type duloxetine 60 mg PO QAM 08/09/18 07/28/20 History folic acid 1 mg PO HS 08/09/18 07/28/20 History sumatriptan succinate 50 mg PO DIRECTED PRN 08/09/18 07/28/20 History albuterol sulfate 3 ml INHALATION Q4H PRN 09/09/18 07/28/20 History diphenoxylate-atropine [Lomotil] 1 tab PO QID PRN 12/19/18 07/28/20 History albuterol sulfate [Ventolin HFA] 2 puff INHALATION Q4H PRN 06/30/19 07/28/20 History duloxetine 30 mg PO QAM 06/30/19 07/28/20 History fluticasone propion-salmeterol 1 inh INHALATION BID 06/30/19 07/28/20 History [Advair Diskus] gabapentin 300 mg PO TID 06/30/19 07/28/20 History nitroglycerin [Nitrostat] 0.4 mg SUBLINGUAL DIRECTED PRN 06/30/19 07/28/20 History ondansetron 4 mg TRANSLINGUAL Q8H PRN 06/30/19 07/28/20 History spironolactone [Aldactone] 25 mg PO QAM 06/30/19 07/28/20 History metoprolol succinate 100 mg PO BID 09/25/19 07/28/20 History mirtazapine 45 mg PO HS 09/25/19 07/28/20 History ropinirole 0.5 mg PO HS 09/25/19 07/28/20 History budesonide 0.5 mg INHALATION BID 01/13/20 07/28/20 History torsemide 10 mg PO QAM 01/13/20 07/28/20 History verapamil 40 mg PO QID 01/13/20 07/28/20 History acetaminophen [Tylenol Extra 1,500 mg PO UD PRN 04/30/20 07/28/20 History Strength] atorvastatin [Lipitor] 40 mg PO QAM 04/30/20 07/28/20 History insulin asp prt-insulin aspart 25 unit SUBCUT DAILYBD 07/07/20 07/28/20 History [Novolog Mix 70-30FlexPen U-100] insulin asp prt-insulin aspart 55 unit SUBCUT DAILYBB 07/07/20 07/28/20 History [Novolog Mix 70-30FlexPen U-100] Januvia 100 mg PO DAILY 07/28/20 07/28/20 History Lactobacillus acidoph-L.bulgar 1 tab PO TID 07/28/20 07/28/20 History [Floranex] aspirin 81 mg PO DAILY 07/28/20 07/28/20 History isosorbide mononitrate 30 mg PO QAM 07/28/20 07/28/20 History pantoprazole 40 mg PO BID 07/28/20 07/28/20 History clopidogrel 75 mg PO QAM #30 tab 07/30/20 Rx metformin [Glucophage] 500 mg PO BIDM #0 tab 07/30/20 07/28/20 Rx Allergies Allergy/AdvReac Type Severity Reaction Status Date / Time Penicillins Allergy Intermediate Flushing, Verified 07/28/20 17:18 Itchiness Sulfa (Sulfonamide Allergy Intermediate Swelling Verified 07/28/20 17:18 Antibiotics) doxycycline Allergy Unknown Unknown Verified 07/28/20 17:18 adhesive AdvReac Intermediate Blistering Verified 07/28/20 17:18 Past Med/Surg History Medical History Anxiety Arthritis Asthma Cardiac defibrillator in place 2014 CHF (congestive heart failure) CKD (chronic kidney disease), stage III COPD (chronic obstructive pulmonary disease) Depression Depression with anxiety Diabetes mellitus, type 2 Elevated troponin Elevated troponin Fatty (change of) liver, not elsewhere classified GERD (gastroesophageal reflux disease) HLD (hyperlipidemia) Hydronephrosis of right kidney Hypertension Hypertrophic cardiomyopathy CADENCE (obstructive sleep apnea) on nocturnal O2 2L Pancreatic cyst Restless leg syndrome Surgical History H/O section 1979 & 1982 H/O hernia repair 2015 History of appendectomy 1970s History of colostomy reversal bowel perf 2013 with colostomy reversed in 2014 Status post internal cardiac defibrillator procedure "2015" Status post partial resection of colon "diverticulitis 11/05/14" Family History Other Hypertrophic cardiomyopathy Stomach cancer Thyroid disorder Social History Smoking Status: Never smoker Second Hand Exposure: No; Hx Alcohol Use: No Hx Substance Use: No Preferred Language: Armenian Communication Ability: Effective Oversize Load Pilot Escort Required: No Beliefs That Will Affect Care: None marital status: Current Living Situation: Spouse and Family 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 and A total of 10 systems reviewed and were otherwise negative Physical Exam Vital Signs Vital Signs - 24 hr 08/21/20 20:14 08/21/20 20:15 08/21/20 21:08 Temperature 36.8 C Temperature Source Oral Pulse Rate 75 Pulse Rate [Apical] 72 Pulse Rhythm [Apical] Regular Pulse Strength [Apical] Normal Respiratory Rate 24 24 Respiratory Effort / Characteristics Non-Labored Respiratory Depth Normal Normal Normal Respiratory Pattern Regular Blood Pressure 106/48 L Blood Pressure [Left Arm] 110/58 L Blood Pressure Mean 67 Blood Pressure Mean [Left Arm] 75 Pulse Oximetry 94 95 Oxygen Delivery Method Nasal Cannula Nasal Cannula Nasal Cannula Oxygen Flow Rate 2 2 2 Sepsis Recent Fever Within 48 Hours No Sepsis New/Unexplained Change in Mental Status N/A Sepsis Action Taken by Nursing No Action Required 08/21/20 21:09 Temperature Temperature Source Pulse Rate Pulse Rate [Apical] Pulse Rhythm [Apical] Pulse Strength [Apical] Respiratory Rate Respiratory Effort / Characteristics Respiratory Depth Respiratory Pattern Blood Pressure Blood Pressure [Left Arm] Blood Pressure Mean Blood Pressure Mean [Left Arm] Pulse Oximetry 96 Oxygen Delivery Method Nasal Cannula Oxygen Flow Rate 2 Sepsis Recent Fever Within 48 Hours Sepsis New/Unexplained Change in Mental Status Sepsis Action Taken by Nursing Constitutional: Vital signs reviewed. Eyes: Pupils are equal round reactive to light. Conjunctiva are noninjected. ENT: Pharynx is clear without erythema or exudate. Mucous membranes are moist. Neck supple without meningeal signs. Respiratory: Clear to auscultation bilaterally. Breath sounds are equal bilaterally. Cardiovascular: Regular rate and rhythm. No rubs or gallops. GI: Soft, nondistended and nontender. Bowel sounds are present. Musculoskeletal: Bilateral lower extremity edema. No lower extremity tenderness. Integumentary: No cyanosis. or jaundice. Neurological: The patient is awake and alert. No focal deficits. Psychiatric: Normal affect. Not anxious appearing. Course Administered Medications Discontinued Medications Furosemide (Furosemide 40 Mg/4 Ml Vial) 40 mg IV NOW STA Stop: 08/21/20 20:30 Last Admin: 08/21/20 21:07 Dose: 40 mg Documented by: [id number] Medical Decision Making Differential Diagnosis Unstable angina, [place], stent occlusion, CHF exacerbation, pleural effusion Medical Records Attestation: I reviewed the patient's medical records. The patient was admitted to the hospital last month for chest pain shortness of breath. She had a drug-eluting stent placed in the right RCA. Home Medications Current Medication List: was personally reviewed by me Laboratory Data Attestation: I reviewed the patient's lab results. Result diagrams: 08/21/20 21:04 08/21/20 21:04 Lab Results 08/21/20 08/21/20 08/21/20 Range/Units 21:04 21:04 21:04 WBC 11.08 H (4.8-10.8) K/uL RBC 3.69 L (4.2-5.4) M/uL Hgb 10.2 L (12.0-16.0) g/dL Hct 32.1 L (37-47) % MCV 87.0 (80-100) fL MCH 27.6 (25-34) pg MCHC 31.8 L (32-36) g/dL RDW Std Deviation 56.2 H (36.4-46.3) fL RDW Coeff of Rolan 17.8 H (11.5-14.5) % Plt Count 201 (130-400) K/uL MPV 9.1 (7.4-10.4) fL Immature Gran % (Auto) 0.4 % Neut % (Auto) 83.7 % Lymph % (Auto) 10.0 % [place] % (Auto) 4.8 % Eos % (Auto) 1.0 % Baso % (Auto) 0.1 % Neut # (Auto) 9.28 H (1.4-6.5) K/uL Lymph # (Auto) 1.11 L (1.2-3.4) K/uL [place] # (Auto) 0.53 (0.11-0.59) K/uL Eos # (Auto) 0.11 (0-0.5) K/uL Baso # (Auto) 0.01 (0-0.2) K/uL Immature Gran # (Auto) 0.04 H (0.00-0.02) K/uL PT 10.9 (9.0-12.0) Seconds INR 1.0 (0.9-1.1) APTT 23.1 (21.0-31.0) Seconds PTT Ratio 0.8 Sodium 141 (136-145) mmol/L Potassium TNP Chloride 110 H (98-107) mmol/L Carbon Dioxide 23 (21-32) mmol/L Anion Gap 7.0 (3-11) BUN 28 H (7-18) mg/dl Creatinine 1.52 H (0.6-1.2) mg/dl Est Cr Clr Drug Dosing Not Reportable Est GFR ( Amer) 42.1 Est GFR (Non-Af Amer) 36.4 BUN/Creatinine Ratio 18.5 (10-20) Glucose 206 H (70-99) mg/dl Calcium 8.6 (8.5-10.1) mg/dl Total Bilirubin 0.5 (0.2-1) mg/dl AST TNP ALT 24 (12-78) U/L Alkaline Phosphatase 123 H (45-117) U/L Troponin I 0.227 H* (0-0.045) ng/ml Total Protein 7.3 (6.4-8.2) gm/dl Albumin 3.1 L (3.4-5.0) gm/dl Globulin 4.2 H (2.5-4.0) gm/dl Albumin/Globulin Ratio 0.7 L (0.9-2) Lipase 149 (73-393) U/L Imaging Data Attestation: I personally reviewed and interpreted this imaging study as follows: My Impression: Chest x-ray per my interpretation shows no acute cardiopulmonary process. ECG Data Attestation: I personally reviewed and interpreted this ECG as follows: Indication: + chest pain Rate (beats per minute): [address] segments: + T-wave inversions (Lateral) ECG Findings: + LVH; no PVCs Comparison ECG Date: from (07/28/2020) Change: no significant change MDM Narrative I did evaluate the patient as noted above. The patient is presenting with chest pain and shortness of breath. She does have a history of recent stent placement in the RCA. She is not currently having any chest discomfort. IV access was established. I did treat the patient with IV Lasix. I did place an order for continuous cardiac monitoring. The monitor showed normal sinus rhythm at a rate of 75 bpm. I did order and personally review the patient's 12-lead EKG as described above. She has T wave inversions in the lateral leads but these were present on her previous EKG and are unchanged. I did order and personally reviewed the images of the patient's chest x-ray as described above. There is no evidence of acute cardiopulmonary process. I did order and review the pj ent's blood work as noted in the electronic medical record. She has chronic anemia with a hemoglobin of 10.2. White count is 11. Creatinine is 1.52 which is at her baseline. She is hyperglycemic. The lab result was not resulted on the computer but when we called the lab they stated that her troponin was 0.227. I did reassess the patient. I did discuss the test results with her. She is not currently having any chest pain or shortness of breath. She did take her Plavix, aspirin and isosorbide today. I did recommend hospitalization. I did discuss case with the hospitalist and residential case manager. Impression & Plan Acute chest pain, Elevated troponin Discharge Plan Visit Data Chief Complaint: Shortness of Breath/Dyspnea Stated Complaint: CANT BREATH ED Provider: Abdirahman Li Discharge Problem: Acute chest pain, Elevated troponin Patient Disposition: Being Evaluated by Hospitalist Forms Stand Alone Forms: My [facility] Prescriptions Prescriptions: No Action duloxetine 60 mg Capsule,Delayed Release(Dr/Ec) 60 mg PO QAM RF: 0 folic acid 1 mg Tablet 1 mg PO HS RF: 0 sumatriptan succinate 25 mg Tablet 50 mg PO DIRECTED PRN (Reason: Migraine Headache) RF: 0 gabapentin 300 mg capsule 300 mg PO TID RF: 0 albuterol sulfate [Ventolin HFA] 90 mcg/actuation Hfa Aerosol Inhaler 2 puff INHALATION Q4H PRN (Reason: Wheezing) RF: 0 ondansetron 4 mg tablet,disintegrating 4 mg translingual Q8H PRN (Reason: Nausea) RF: 0 duloxetine 30 mg capsule,delayed release(DR/EC) 30 mg PO QAM RF: 0 nitroglycerin [Nitrostat] 0.4 mg tablet, sublingual 0.4 mg sublingual DIRECTED PRN (Reason: Chest Pain) RF: 0 fluticasone propion-salmeterol [Advair Diskus] 500-50 mcg/dose Blister With Device 1 inh INHALATION BID RF: 0 spironolactone [Aldactone] 25 mg Tablet 25 mg PO QAM RF: 0 metoprolol succinate 100 mg tablet extended release 24 hr 100 mg PO BID RF: 0 mirtazapine 45 mg Tablet 45 mg PO HS RF: 0 ropinirole 0.5 mg Tablet 0.5 mg PO HS RF: 0 atorvastatin [Lipitor] 40 mg tablet 40 mg PO QAM RF: 0 acetaminophen [Tylenol Extra Strength] 500 mg Tablet 1,500 mg PO UD PRN (Reason: Pain) RF: 0 isosorbide mononitrate 30 mg Tablet Extended Release 24 Hr 30 mg PO QAM RF: 0 pantoprazole 40 mg Tablet,Delayed Release (Dr/Ec) 40 mg PO BID RF: 0 aspirin 81 mg Tablet,Chewable 81 mg PO DAILY RF: 0 Januvia 100 mg Tablet 100 mg PO DAILY RF: 0 Lactobacillus acidoph-L.bulgar [Floranex] 1 million cell Tablet 1 tab PO TID RF: 0 clopidogrel 75 mg Tablet 75 mg PO QAM Qty: 30 RF: 2 metformin [Glucophage] 500 mg Tablet 500 mg PO BIDM Qty: 0 RF: 0 albuterol sulfate 2.5 mg /3 mL (0.083 %) solution for nebulization 3 ml Inhalation Q4H PRN (Reason: Wheezing) RF: 0 diphenoxylate-atropine [Lomotil] 2.5-0.025 mg Tablet 1 tab PO QID PRN (Reason: Diarrhea) RF: 0 verapamil 40 mg tablet 40 mg PO QID RF: 0 torsemide 10 mg Tablet 10 mg PO QAM RF: 0 budesonide 0.5 mg/2 mL suspension for nebulization 0.5 mg inhalation BID RF: 0 insulin asp prt-insulin aspart [Novolog Mix 70-30FlexPen U-100] 100 unit/mL (70-30) insulin pen 55 unit SUBCUT DAILYBB RF: 0 insulin asp prt-insulin aspart [Novolog Mix 70-30FlexPen U-100] 100 unit/mL (70-30) insulin pen 25 unit SUBCUT DAILYBD RF: 0 Referrals Referrals: Suad De León DO [Primary Care Provider] -
[2020-08-21 21:15] LABS: Basophils # (auto) 0.01 K/uL (0-0.2); Basophils % (auto) 0.1 %; Eosinophils # (auto) 0.11 K/uL (0-0.5); Hematocrit (blood only) 32.1 % (37-47); Hemoglobin 10.2 g/dL (12.0-16.0); Immature Granulocytes # (auto) 0.04 K/uL (0.00-0.02); Immature Granulocytes % (auto) 0.4 %; Lymphocytes # (auto) 1.11 K/uL (1.2-3.4); Mean Corpuscular Hemoglobin 27.6 pg (25-34); Mean Corpuscular Hgb Conc 31.8 g/dL (32-36); Mean Platelet Volume 9.1 fL (7.4-10.4); Monocytes # (auto) 0.53 K/uL (0.11-0.59); Monocytes % (auto) 4.8 %; Neutrophils # (auto) 9.28 K/uL (1.4-6.5); Neutrophils % (auto) 83.7 %; Platelet Count 201 K/uL (130-400); RDW Coefficient of Variation 17.8 % (11.5-14.5); RDW Standard Deviation 56.2 fL (36.4-46.3); Red Blood Count 3.69 M/uL (4.2-5.4); White Blood Count 11.08 K/uL (4.8-10.8)
[2020-08-21 21:28] LABS: Partial Thromboplastin Ratio 0.8; Partial Thromboplastin Time 23.1 Seconds (21.0-31.0); Prothrombin Time 10.9 Seconds (9.0-12.0)
[2020-08-21 21:38] LABS: Alanine Aminotransferase 24 U/L (12-78); Albumin Level 3.1 gm/dl (3.4-5.0); BUN Creatinine Ratio 18.5 (10-20); Blood Urea Nitrogen 28 mg/dl (7-18); Calcium 8.6 mg/dl (8.5-10.1); Carbon Dioxide 23 mmol/L (21-32); Chloride 110 mmol/L (98-107); Est GFR (African American) 42.1; Est GFR (Non-African American) 36.4; Glucose 206 mg/dl (70-99); Lipase 149 U/L (73-393); Sodium 141 mmol/L (136-145)
[2020-08-21 21:53] LABS: Albumin Globulin Ratio 0.7 (0.9-2); Alkaline Phosphatase 123 U/L (45-117); Bilirubin,Total 0.5 mg/dl (0.2-1); Globulin 4.2 gm/dl (2.5-4.0); Total Protein 7.3 gm/dl (6.4-8.2)
[2020-08-21 22:21] LABS: Troponin I 0.227 ng/ml (0-0.045)
[2020-08-21 22:38] LABS: Potassium 4.8 mmol/L (3.5-5.1)
[2020-08-22 00:15] LABS: Influenza A virus by PCR Neg for Influ A (Neg); Influenza B virus by PCR Neg for Influ B (Neg)
[2020-08-22] MEDS ORDERED: NITROGLYCERIN SL 0.4 MG/TAB TAB SL PRN (01:14)
[2020-08-22] MEDS ORDERED: ONDANSETRON INJ 2 MG/ML 2 ML VIAL IV PRN (01:14)
[2020-08-22] MEDS ORDERED: POLYETHYLENE (MIRALAX) 17 GM PACK PO PRN (01:14)
--- NOTE | 2020-08-22 01:22 | History and Physical Report ---
DATE OF ADMISSION: 08/21/2020 CHIEF COMPLAINT: Shortness of breath and chest pain. HISTORY OF PRESENT ILLNESS: A 60-year-old female with past medical history significant for diabetes, chronic kidney disease stage III, chronic respiratory failure with hypoxia, obstructive sleep apnea, uses oxygen in the nighttime, dyspnea on exertion, type 2 diabetes, history of hypertrophic obstructive cardiomyopathy, family history of sudden cardiac , status post ICD, diastolic heart failure, hypertension, CAD, irritable bowel syndrome, morbid obesity, migraine, depression. The patient was recently in the hospital in July. She was admitted on 07/28/2020 and discharged on 07/30/2020. At that time, she presented with chest pain. She was status post cardiac catheterization and status post drug-eluting stent to the RCA and she is currently on Plavix and aspirin. The patient states she is taking her aspirin and Plavix regularly. Since last 2 days, she is having shortness of breath more on exertion, chest pains radiating to her right arm, moderate in severity, not associated with any activity. She is also having cough. She says he has some low-grade temperature and she is also having some runny nose, sore throat, which prompted her to come to the ER. In the ER currently, she is resting comfortably, hemodynamically stable. She is saturating 96% on 2 liters. She has a white count of 11. Troponin 0.27 She has chronically elevated troponin, but last on discharge was 0.17 . Received a dose of IV Lasix in the ER. In the ER when she went to the bathroom and came back, she was having a lot of shortness of breath, but she is settled now. She has chronic headaches and neck pain. Denies any blurred visions. Chronic earaches. Has some runny nose. Eating okay. No nausea, no vomiting, no abdominal pain. She has diarrhea for last 1 week, but that is nothing new for her. Denies any bloody stools or black stools. Micturating fine. No rash seen. ALLERGIES: PENICILLIN, DOXYCYCLINE, SULFA ANTIBIOTICS, TAPE. PAST MEDICAL HISTORY: As mentioned above. PAST SURGICAL HISTORY: Carpal tunnel surgery bilaterally, , closure of enterostomy, reversal of Gerard's procedure, colonoscopy, EGD with endoscopic ultrasound, history of perforated diverticulitis, status post ICD, open incisional hernia repair, partial removal of the colon and rectum, appendectomy, right finger tendon sheath incision. MEDICATIONS: The patient is on NovoLog mix 70/30, 55 units before breakfast, 25 units before supper, vitamin D 50,000 units 1 capsule once a week, atorvastatin 40 mg p.o. daily, Plavix 75 mg p.o. daily, Protonix 40 mg p.o. b.i.d., Imdur 30 mg p.o. daily, metformin 500 mg p.o. b.i.d., albuterol 2 puffs every 4 hours p.r.n., Advair Diskus 500/50 mcg 1 puff b.i.d., Demadex 10 mg p.o. daily, PreserVision 3 tablets per week, Requip 0.5 mg p.o. at bedtime, Remeron 45 mg p.o. at bedtime, Cymbalta 90 mg p.o. daily, verapamil 40 mg p.o. q.i.d., gabapentin 300 mg p.o. t.i.d., Imitrex 50 mg p.o. p.r.n., lactobacillus 1 tablet p.o. t.i.d., albuterol nebulization 1 every 4 hours p.r.n., Aldactone 25 mg p.o. daily, oxygen 2 liters while sleeping and 2.5 liters with exertion, Toprol-XL 100 mg p.o. b.i.d., folic acid 1 mg p.o. daily, Zofran 4 mg every 8 hours p.r.n., Januvia 100 mg p.o. daily, Pulmicort 0.5 mg nebulization every 12 hours, Lomotil 1 tablet p.o. q.i.d. p.r.n., nitroglycerin 0.4 mg sublingual p.r.n., aspirin 81 mg p.o. daily. FAMILY HISTORY: Significant for daughter has arthritis, seizures; mother had arthritis, thyroid disorder, hyperlipidemia, hypertension; father had hypertrophic cardiomyopathy, at the age of 56. SOCIAL HISTORY: . No smoking, no alcohol, no drug use. REVIEW OF SYSTEMS: As per HPI. Rest of the review of systems negative. PHYSICAL EXAMINATION: GENERAL: The patient is obese, not in acute distress. VITAL SIGNS: Temperature 36.8, pulse 67, respiratory rate 20, blood pressure 95/56, oxygen 96% on 2 liters. HEENT: Pupils equal, round, reactive to light. NECK: No neck masses seen, supple. CARDIOVASCULAR: S1, S2 heard, regular rate and rhythm, no murmur, no gallop. RESPIRATORY SYSTEM: Normal AP diameter. No accessory muscle use. No wheezing, no crackles. ABDOMEN: Soft, bowel sounds present, nontender. No distention. CENTRAL NERVOUS SYSTEM: Cranial nerves II-XII grossly intact, nonfocal. EXTREMITIES: No edema, no erythema. LABORATORY DATA: WBC 11.08, hemoglobin 10.2, hematocrit 32.1, platelets 201, PT 10.9, INR 1, APTT 23.1. Sodium 141, potassium 4.8, chloride 110, bicarbonate 23, BUN 28, creatinine 1.52, serum glucose 206, calcium 8.6, total bilirubin 0.5, AST 15, ALT 24, alkaline phosphatase 123. Troponin 1 of 0.227, lipase 149. IMAGING DATA: Chest x-ray, cardiomegaly, mild pulmonary congestion seen. EKG: Normal sinus rhythm at a rate of 72. Nonspecific ST abnormalities seen. ASSESSMENT AND PLAN: This is a 60-year-old female who presents with chest pain and shortness of breath on exertion. 1. Chest pain, rule out acute coronary syndrome. Recently, she had a stent to the RCA in July and as per the patient she states she is regularly taking aspirin and Plavix. Will continue her aspirin, Plavix, and her beta jorge. Troponin 0.227, last troponin at discharge was 0.17. We will trend her serial enzymes. We will get an echocardiogram. Keep her n.p.o. and consult cardiology in a.m. 2. Shortness of breath on exertion. Also she says she has a low-grade fever, cough, runny nose, and sore throat. She was recently in the hospital. We will check for COVID. We will also get CT chest to rule out any infiltrates. Could be also secondary to her congestive heart failure, diastolic. Received a dose of IV Lasix in the ER. Will continue her home inhalers and closely monitor. 3. Possible [id number] diastolic congestive heart failure. Received a dose of IV Lasix in the ER. Will continue home torsemide, spironolactone, Toprol-XL, isosorbide mononitrate. consulted cardiology in the a.m. 4. Hypertension. Continue her home medication. We will monitor. 5. History of hypertrophic obstructive cardiomyopathy, family history of sudden cardiac , status post ICD placement. 6. Diabetes, HbA1c 6.8 in April 2020. Currently n.p.o. We will place on insulin sliding scale and place back on her home NovoLog mix with a reduced dose. 7. Chronic respiratory failure, on home oxygen. 8. Chronic kidney disease, creatinine 1.5, seems to be at baseline. Follow the repeat labs. 9. Chronic anemia. Hemoglobin seems to be baseline, will follow. 10. Deep venous thrombosis prophylaxis, sequential compression devices for now. 11. Disposition: Closely monitor in the tele floor. Level 1 full code. Expect to discharge home and follow with family doctor. PT and OT prior to discharge. Social service to help with discharge planning. FIDE
[2020-08-22] MEDS ORDERED: CARBOHYDRATES FOR HYPOGLYCEMIA PO PRN (01:30)
[2020-08-22] MEDS ORDERED: GLUCOSE 10 TABS/TUBE PO PRN (01:30)
[2020-08-22] MEDS ORDERED: DEXTROSE 50% 50 ML SYRINGE IV PRN (01:30)
[2020-08-22] MEDS ORDERED: GLUCAGON FOR INJ 1 MG VIAL SQ PRN (01:30)
[2020-08-22] MEDS ORDERED: GLUCOSE 40% GEL 15 GM TUBE PO PRN (01:30)
[2020-08-22 05:35] LABS: Basophils # (auto) 0.01 K/uL (0-0.2); Basophils % (auto) 0.1 %; Eosinophils # (auto) 0.18 K/uL (0-0.5); Eosinophils % (auto) 1.6 %; Hematocrit (blood only) 33.5 % (37-47); Hemoglobin 10.3 g/dL (12.0-16.0); Immature Granulocytes # (auto) 0.03 K/uL (0.00-0.02); Immature Granulocytes % (auto) 0.3 %; Lymphocytes % (auto) 9.6 %; Mean Corpuscular Hgb Conc 30.7 g/dL (32-36); Mean Corpuscular Volume 87.9 fL (80-100); Mean Platelet Volume 9.2 fL (7.4-10.4); Monocytes # (auto) 0.58 K/uL (0.11-0.59); Neutrophils # (auto) 9.59 K/uL (1.4-6.5); Neutrophils % (auto) 83.4 %; Platelet Count 212 K/uL (130-400); RDW Coefficient of Variation 17.9 % (11.5-14.5); RDW Standard Deviation 57.4 fL (36.4-46.3); Red Blood Count 3.81 M/uL (4.2-5.4); White Blood Count 11.49 K/uL (4.8-10.8)
[2020-08-22 05:58] LABS: Creatinine Clr Calc Pharmacy 34.6 ml/min; Est GFR (African American) 41.2; Est GFR (Non-African American) 35.5; Magnesium 2.1 mg/dl (1.8-2.4)
--- NOTE | 2020-08-22 08:07 | Cardiology Consultation ---
Date of Consultation August 22, 2020 Assessment & Plan (1) CAD (coronary artery disease), [place] coronary artery: (2) S/P right coronary artery (RCA) stent placement: (3) Elevated troponin: (4) Diastolic CHF, acute on chronic: (5) Apical variant hypertrophic cardiomyopathy: I believe the patient most likely has acute on chronic diastolic heart failure with a combination of renal insufficiency from diabetic nephropathy and volume overload. I would continue the IV diuretics. I do not believe that she has acute coronary syndrome. She has chronically elevated cardiac troponins most likely on the basis of hypertrophic cardiomyopathy. I have restarted her verapamil as well as spironolactone. I will check a basic medical profile in the morning. History of Present Illness Attending Physician: Mariana Emmanuel MD History of Present Illness This is a 60-year-old female who is well-known to our service. She has an MBC mutation and an apical hypertrophic cardiomyopathy with severe chronic diastolic heart failure. She is also a diabetic with coronary artery disease and early in July received a drug-eluting stent within the ostium of the right coronary artery due to unstable angina. She had been doing well at home but over the past several days has had progressive shortness of breath. She admits to gaining approximately 10 pounds of fluid weight with increasing abdominal girth and lower extremity edema. She has chronically elevated cardiac troponins most likely due to her hypertrophic cardiomyopathy. EKG shows no acute changes. Most of her symptoms are related to dyspnea on exertion and shortness of breath which have improved after she received IV Lasix in the emergency department. Past medical history: 1.ApicalHypertrophic nonobstructive cardiomyopathy, severe with markedly reduced LV cavity size , grade 4 diastolic dysfunction 2.Genetic mutation MBCconsistent with cardiomyopathy. 3.Status post prophylactic pacer defibrillatorMedtronic, model - Evera MRI XT [id number], dual chamber, September 01, 2015. 4.Labile hypertension. 5.Obesity. 6. Obstructive sleep apnea/hypoventilationwith poor CPAP tolerance on chronic nocturnal oxygen supplementation 7.Chronic diastolic heart failure right greater than left 8. Chronic anxiety 9. Admitted to the hospital 07/28/20 with unstable angina, found to have an ostial right coronary artery stenosis and received a drug-eluting stent. Allergies Allergy/AdvReac Type Severity Reaction Status Date / Time Penicillins Allergy Intermediate Flushing, Verified 08/21/20 23:50 Itchiness Sulfa (Sulfonamide Allergy Intermediate Swelling Verified 08/21/20 23:50 Antibiotics) doxycycline Allergy Unknown Unknown Verified 08/21/20 23:50 adhesive AdvReac Intermediate Blistering Verified 08/21/20 23:50 Home Medications Home Medications Medication Instructions Recorded Confirmed Type duloxetine 60 mg PO QAM 08/09/18 08/21/20 History folic acid 1 mg PO HS 08/09/18 08/21/20 History sumatriptan succinate 50 mg PO DIRECTED PRN 08/09/18 08/21/20 History albuterol sulfate 3 ml INHALATION Q4H PRN 09/09/18 08/21/20 History diphenoxylate-atropine [Lomotil] 1 tab PO QID PRN 12/19/18 08/21/20 History albuterol sulfate [Ventolin HFA] 2 puff INHALATION Q4H PRN 06/30/19 08/21/20 History duloxetine 30 mg PO QAM 06/30/19 08/21/20 History fluticasone propion-salmeterol 1 inh INHALATION BID 06/30/19 08/21/20 History [Advair Diskus] gabapentin 300 mg PO TID 06/30/19 08/21/20 History nitroglycerin [Nitrostat] 0.4 mg SUBLINGUAL DIRECTED PRN 06/30/19 08/21/20 History ondansetron 4 mg TRANSLINGUAL Q8H PRN 06/30/19 08/21/20 History spironolactone [Aldactone] 25 mg PO QAM 06/30/19 08/21/20 History metoprolol succinate 100 mg PO BID 09/25/19 08/21/20 History mirtazapine 45 mg PO HS 09/25/19 08/21/20 History ropinirole 0.5 mg PO HS 09/25/19 08/21/20 History budesonide 0.5 mg INHALATION Q12 01/13/20 08/21/20 History torsemide 10 mg PO QAM 01/13/20 08/21/20 History verapamil 40 mg PO QID 01/13/20 08/21/20 History atorvastatin [Lipitor] 40 mg PO QAM 04/30/20 08/21/20 History insulin asp prt-insulin aspart 25 unit SUBCUT DAILYBD 07/07/20 08/21/20 History [Novolog Mix 70-30FlexPen U-100] insulin asp prt-insulin aspart 55 unit SUBCUT DAILYBB 07/07/20 08/21/20 History [Novolog Mix 70-30FlexPen U-100] Januvia 100 mg PO DAILY 07/28/20 08/21/20 History Lactobacillus acidoph-L.bulgar 1 tab PO TID 07/28/20 08/21/20 History [Floranex] aspirin 81 mg PO DAILY 07/28/20 08/21/20 History isosorbide mononitrate 30 mg PO QAM 07/28/20 08/21/20 History pantoprazole 40 mg PO BID 07/28/20 08/21/20 History clopidogrel 75 mg PO QAM #30 tab 07/30/20 08/21/20 Rx metformin [Glucophage] 500 mg PO BIDM #0 tab 07/30/20 08/21/20 Rx Patient History Medical History Anxiety Arthritis Asthma Cardiac defibrillator in place 2014 CHF (congestive heart failure) CKD (chronic kidney disease), stage III COPD (chronic obstructive pulmonary disease) Depression Depression with anxiety Diabetes mellitus, type 2 Elevated troponin Elevated troponin Fatty (change of) liver, not elsewhere classified GERD (gastroesophageal reflux disease) HLD (hyperlipidemia) Hydronephrosis of right kidney Hypertension Hypertrophic cardiomyopathy CADENCE (obstructive sleep apnea) on nocturnal O2 2L Pancreatic cyst Restless leg syndrome Surgical History H/O section 1979 & 1982 H/O hernia repair 2015 History of appendectomy 1970s History of colostomy reversal bowel perf 2013 with colostomy reversed in 2014 Status post internal cardiac defibrillator procedure "2015" Status post partial resection of colon "diverticulitis 11/05/14" Family History Other Hypertrophic cardiomyopathy Stomach cancer Thyroid disorder Social History Smoking Status: Never smoker Second Hand Exposure: No; Hx Alcohol Use: No Hx Substance Use: No Preferred Language: [place] Communication Ability: Effective Supervisor Dental Laboratory Required: No Beliefs That Will Affect Care: None marital status: Current Living Situation: Spouse and Family 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 Physical Exam Physical Exam: General: no acute distress and stated age Head: normocephalic, no masses, lesions, tenderness or abnormalities Eyes: conjunctiva are pink and non-injected, sclera clear Neck: supple, no adenopathy, no bruits, normal jugular venous pulse, no hepatojugular reflux Chest: normal shape and normal respiratory effort Lungs: clear to auscultation and percussion Cardiac Exam: - regular rate & rhythm, no murmurs gallops or rubs - normal S1, normal S2 Pulses: 2(+) throughout Abdomen: abdomen soft, non-tender, no abnormal masses and no hepatosplenomegaly Musculoskeletal: no gait disturbance, no joint inflammation, no deforming arthritis Extremities: Pitting edema of the lower extremities bilaterally to the midcalf. Neuro: grossly normal exam Results & Data ([facility]) Vital Signs (Past 12 Hours) Vital Signs Temp Pulse Pulse Resp BP BP Pulse Ox 08/22/20 01:20 36.7 C 75 126/77 96 08/21/20 23:00 67 20 95/56 L 96 08/21/20 21:09 96 08/21/20 21:08 72 24 110/58 L 95 08/21/20 20:15 36.8 C 75 24 106/48 L 94 Laboratory Results Laboratory Results - last 24 hr 08/21/20 08/21/20 08/21/20 21:04 21:04 21:04 WBC 11.08 H RBC 3.69 L Hgb 10.2 L Hct 32.1 L MCV 87.0 MCH 27.6 MCHC 31.8 L RDW Std Deviation 56.2 H RDW Coeff of Rolan 17.8 H Plt Count 201 MPV 9.1 Immature Gran % (Auto) 0.4 Neut % (Auto) 83.7 Lymph % (Auto) 10.0 [place] % (Auto) 4.8 Eos % (Auto) 1.0 Baso % (Auto) 0.1 Neut # (Auto) 9.28 H Lymph # (Auto) 1.11 L [place] # (Auto) 0.53 Eos # (Auto) 0.11 Baso # (Auto) 0.01 Immature Gran # (Auto) 0.04 H PT 10.9 INR 1.0 APTT 23.1 PTT Ratio 0.8 Sodium 141 Potassium TNP Chloride 110 H Carbon Dioxide 23 Anion Gap 7.0 BUN 28 H Creatinine 1.52 H Est Cr Clr Drug Dosing Not Reportable Est GFR ( Amer) 42.1 Est GFR (Non-Af Amer) 36.4 BUN/Creatinine Ratio 18.5 Glucose 206 H POC Glucose Calcium 8.6 Magnesium Total Bilirubin 0.5 AST TNP ALT 24 Alkaline Phosphatase 123 H Troponin I 0.227 H* Total Protein 7.3 Albumin 3.1 L Globulin 4.2 H Albumin/Globulin Ratio 0.7 L Lipase 149 COVID-19 Eval Order COVID-19 PCR Influenza Type A (PCR) Influenza Type B (PCR) 08/21/20 08/21/20 08/21/20 22:13 23:20 23:20 WBC RBC Hgb Hct MCV MCH MCHC RDW Std Deviation RDW Coeff of Rolan Plt Count MPV Immature Gran % (Auto) Neut % (Auto) Lymph % (Auto) [place] % (Auto) Eos % (Auto) Baso % (Auto) Neut # (Auto) Lymph # (Auto) [place] # (Auto) Eos # (Auto) Baso # (Auto) Immature Gran # (Auto) PT INR APTT PTT Ratio Sodium Potassium 4.8 Chloride Carbon Dioxide Anion Gap BUN Creatinine Est Cr Clr Drug Dosing Est GFR ( Amer) Est GFR (Non-Af Amer) BUN/Creatinine Ratio Glucose POC Glucose Calcium Magnesium Total Bilirubin AST 15 ALT Alkaline Phosphatase Troponin I Total Protein Albumin Globulin Albumin/Globulin Ratio Lipase COVID-19 Eval Order Covid19 Done at [facility] COVID-19 PCR Influenza Type A (PCR) Neg for Influ A Influenza Type B (PCR) Neg for Influ B 08/21/20 08/22/20 08/22/20 23:20 04:50 04:50 WBC 11.49 H RBC 3.81 L Hgb 10.3 L Hct 33.5 L MCV 87.9 MCH 27.0 MCHC 30.7 L RDW Std Deviation 57.4 H RDW Coeff of Rolan 17.9 H Plt Count 212 MPV 9.2 Immature Gran % (Auto) 0.3 Neut % (Auto) 83.4 Lymph % (Auto) 9.6 Treasure % (Auto) 5.0 Eos % (Auto) 1.6 Baso % (Auto) 0.1 Neut # (Auto) 9.59 H Lymph # (Auto) 1.10 L [place] # (Auto) 0.58 Eos # (Auto) 0.18 Baso # (Auto) 0.01 Immature Gran # (Auto) 0.03 H PT INR APTT PTT Ratio Sodium Potassium Chloride Carbon Dioxide Anion Gap BUN Creatinine Est Cr Clr Drug Dosing Est GFR ( Amer) Est GFR (Non-Af Amer) BUN/Creatinine Ratio Glucose POC Glucose Calcium Magnesium Total Bilirubin AST ALT Alkaline Phosphatase Troponin I 0.229 H* Total Protein Albumin Globulin Albumin/Globulin Ratio Lipase COVID-19 Eval Order COVID-19 PCR NEGATIVE Influenza Type A (PCR) Influenza Type B (PCR) 08/22/20 08/22/20 08/22/20 04:50 06:58 10:52 WBC RBC Hgb Hct MCV MCH MCHC RDW Std Deviation RDW Coeff of Rolan Plt Count MPV Immature Gran % (Auto) Neut % (Auto) Lymph % (Auto) [place] % (Auto) Eos % (Auto) Baso % (Auto) Neut # (Auto) Lymph # (Auto) Treasure # (Auto) Eos # (Auto) Baso # (Auto) Immature Gran # (Auto) PT INR APTT PTT Ratio Sodium 144 Potassium 5.0 Chloride 111 H Carbon Dioxide 28 Anion Gap 5.0 BUN 30 H Creatinine 1.55 H Est Cr Clr Drug Dosing 34.6 Est GFR ( Amer) 41.2 Est GFR (Non-Af Amer) 35.5 BUN/Creatinine Ratio 19.0 Glucose 155 H POC Glucose 181 H Calcium 9.0 Magnesium 2.1 Total Bilirubin AST ALT Alkaline Phosphatase Troponin I Pending Total Protein Albumin Globulin Albumin/Globulin Ratio Lipase COVID-19 Eval Order COVID-19 PCR Influenza Type A (PCR) Influenza Type B (PCR) 08/22/20 11:25 WBC RBC Hgb Hct MCV MCH MCHC RDW Std Deviation RDW Coeff of Rolan Plt Count MPV Immature Gran % (Auto) Neut % (Auto) Lymph % (Auto) [place] % (Auto) Eos % (Auto) Baso % (Auto) Neut # (Auto) Lymph # (Auto) [place] # (Auto) Eos # (Auto) Baso # (Auto) Immature Gran # (Auto) PT INR APTT PTT Ratio Sodium Potassium Chloride Carbon Dioxide Anion Gap BUN Creatinine Est Cr Clr Drug Dosing Est GFR ( Amer) Est GFR (Non-Af Amer) BUN/Creatinine Ratio Glucose POC Glucose 154 H Calcium Magnesium Total Bilirubin AST ALT Alkaline Phosphatase Troponin I Total Protein Albumin Globulin Albumin/Globulin Ratio Lipase COVID-19 Eval Order COVID-19 PCR Influenza Type A (PCR) Influenza Type B (PCR) Medications Administered Current Inpatient Medications Acetaminophen (Acetaminophen 325 Mg Tab) 650 mg PO Q4H PRN PRN Reason: Pain or Fever Stop: 09/21/20 01:13 Dextrose (Dextrose 50% 50 Ml Syringe) 25 - 50 ml IV UD PRN; Protocol PRN Reason: Hypoglycemia Protocol Stop: 09/21/20 01:29 Glucagon (Glucagon For Inj 1 Mg Vial) 1 mg SQ UD PRN; Protocol PRN Reason: Hypoglycemia Protocol Stop: 09/21/20 01:29 Glucose (Glucose 40% Gel 15 Gm Tube) 15 - 30 gm PO UD PRN; Protocol PRN Reason: Hypoglycemia Protocol Stop: 09/21/20 01:29 Glucose (Glucose 10 Tabs/Tube) 4 - 8 tabs PO UD PRN; Protocol PRN Reason: Hypoglycemia Protocol Stop: 09/21/20 01:29 Furosemide 40 mg/ Syringe 4 mls @ 4 mls/min IV [id number] [facility] Stop: 09/21/20 11:44 Insulin Aspart (Insulin Aspart 100 Units/Ml 3 Ml Pen) 0 units SC ACHS [facility] Stop: 09/21/20 07:29 Last Admin: 08/22/20 08:58 Dose: 2 units Documented by: Insulin Glargine (Insulin Glargine Solostar 100 Units/Ml 3 Ml Pen) 10 units SC BID [facility] Stop: 09/21/20 08:59 Last Admin: 08/22/20 08:59 Dose: 10 units Documented by: Miscellaneous (Carbohydrates For Hypoglycemia ) 15 - 30 gm PO UD PRN PRN Reason: Hypoglycemia Treatment Stop: 09/21/20 01:29 Nitroglycerin (Nitroglycerin Sl 0.4 Mg/Tab Tab) 0.4 mg SL UD PRN PRN Reason: Chest Pain Stop: 09/21/20 01:13 Ondansetron HCl (Ondansetron Inj 2 Mg/Ml 2 Ml Vial) 4 mg IV Q6H PRN PRN Reason: Nausea Stop: 09/21/20 01:13 Polyethylene Glycol (Polyethylene (Miralax) 17 Gm Pack) 17 gm PO DAILY PRN PRN Reason: Constipation Stop: 09/21/20 01:13 Spironolactone (Spironolactone 25 Mg Tab) 25 mg PO QAM [facility] Stop: 09/21/20 11:44 Verapamil HCl (Verapamil Hcl 40 Mg Tab) 40 mg PO QID [facility] Stop: 09/21/20 12:59 (1) CAD (coronary artery disease), [place] coronary artery Associated angina: with unstable angina [place] vs. transplanted heart: [place] heart Qualified Code(s): I25.110 - Atherosclerotic heart disease of [place] coronary artery with unstable angina pectoris
--- NOTE | 2020-08-22 08:38 | XRay Report ---
XR chest 1V portable CLINICAL HISTORY: Atypical chest pain COMPARISON STUDY: 07/28/2020 FINDINGS: The heart remains enlarged. There is a right subclavian pacer/defibrillator. There is mild elevation of interstitium similar to the prior study and suggesting mild pulmonary vascular congestio n. There is no lobar consolidation. There is minor left basilar atelectasis. No large effusions are v isualized.[ IMPRESSION: Stable cardiomegaly and mild vascular congestion. ACT 112: Negative or not required by law. Electronically signed by: Dino Spann M.D. 08/22/2020 8:36 AM
[2020-08-22] MEDS: INSULIN ASPART 100 UNITS/ML 3 ML PEN SC SCH ×4 (08:58→20:04)
[2020-08-22] MEDS: INSULIN GLARGINE SOLOSTAR 100 UNITS/ML 3 ML PEN SC SCH ×2 (08:59→20:06)
--- NOTE | 2020-08-22 09:36 | CT Scan Report ---
CT chest wo con CLINICAL HISTORY: Cough, shortness of breath. Chest pain. COMPARISON STUDY: Chest x-ray dated 08/21/2020 CT DOSE: 692.38 mGy.cm TECHNIQUE: CT of the thorax was performed from the thoracic inlet to the lung bases. Images are revi ewed in the axial, sagittal, and coronal planes. IV contrast was not administered for this examinatio n. A dose lowering technique was utilized adhering to the principles of ALARA. FINDINGS: Thyroid: Imaged portions of the thyroid gland are normal in appearance. Thoracic aorta: The thoracic aorta is normal in course and caliber, noting standard 3 vessel arch ton akil. Heart: The heart is mildly enlarged. There is a right subclavian pacer/defibrillator present. There a re coronary artery calcifications. There is no significant pericardial effusion. Lungs and pleural spaces: There are no pleural effusions. There is no lobar consolidation. There is m ild upper lobe septal edema. There is subtle groundglass attenuation of the lungs with a mosaic distr ibution. This could indicate air trapping. Basilar opacities are felt to be atelectatic. There is a 5 mm left lower lobe pulmonary nodule. In a low-risk patient, no further follow-up is indicated there are a few additional scattered pulmonary micronodules. Mediastinum: There are multiple borderline enlarged mediastinal lymph nodes. [place]: Hilar lymph nodes are felt to be the upper limits of normal in size. Axilla: There is no evidence of pathologic axillary lymphadenopathy. Upper abdomen: There is mild hepatic steatosis Skeletal structures: There is a T9-T10 disc osteophyte complex. No destructive lesions are visualized . IMPRESSION: 1. Cardiomegaly and coronary artery calcifications 2. Subtle septal edema 3. Groundglass attenuation of the lungs with a mosaic distribution. This could indicate air trapping. 4. 5 mm left lower lobe pulmonary nodule 5. Multiple borderline enlarged mediastinal lymph nodes 6. Mild hepatic steatosis ACT 112: Negative or not required by law. Electronically signed by: Dino Spann M.D. 08/22/2020 9:34 AM
--- NOTE | 2020-08-22 09:51 | Electrocardiogram Report ---
Test Reason : Blood Pressure : / mmHG Vent. Rate : 072 BPM Atrial Rate : 072 BPM P-R Int : 174 ms QRS Dur : 090 ms QT Int : 444 ms P-R-T Axes : 020 001 095 degrees QTc Int : 486 ms Poor data quality, interpretation may be adversely affected Normal sinus rhythm Voltage criteria for left ventricular hypertrophy T wave abnormality, consider lateral ischemia Abnormal ECG When compared with ECG of 28-JUL-2020 17:23, Premature atrial complexes are no longer Present Nonspecific T wave abnormality no longer evident in Inferior leads T wave inversion less evident in Anterolateral leads Confirmed by Oleksandr Gann ([id number]) on 08/22/2020 9:50:56 AM Referred By: REFERRED SELF Confirmed By:Lavelle Gann
--- NOTE | 2020-08-22 09:55 | Electrocardiogram Report ---
Test Reason : Blood Pressure : / mmHG Vent. Rate : 070 BPM Atrial Rate : 070 BPM P-R Int : 182 ms QRS Dur : 092 ms QT Int : 426 ms P-R-T Axes : 058 049 102 degrees QTc Int : 460 ms Normal sinus rhythm Normal ECG When compared with ECG of 21-AUG-2020 20:42, (unconfirmed) No significant change was found Confirmed by Oleksandr Gann ([id number]) on 08/22/2020 9:54:52 AM Referred By: REFERRED SELF Confirmed By:Lavelle Gann
[2020-08-22] MEDS: FUROSEMIDE 40 MG in SYRINGE 0 ML IV SCH ×2 (12:03→16:41)
[2020-08-22] MEDS: VERAPAMIL HCL 40 MG TAB PO SCH ×3 (12:34→20:06)
[2020-08-22] MEDS: SPIRONOLACTONE 25 MG TAB PO SCH (13:00)
[2020-08-22] MEDS: CLOPIDOGREL BISULFATE 75 MG TAB PO SCH (13:01)
--- NOTE | 2020-08-22 14:43 | Hospitalist Progress Note ---
Date of Service August 22, 2020 Assessment & Plan (1) Diastolic CHF, acute on chronic: Presented with shortness of breath and chest pain Did have increasing edema and chest x-ray did show mild congestion Has been getting intravenous Lasix and condition has been improving Patient had cardiology input and recommendation (2) Elevated troponin: Chest pain on admission Troponins mildly elevated at 0.2 range and not showing any significant elevation on serial testing Has chronic EKG changes No evidence of ACS (3) CAD (coronary artery disease), [place] coronary artery: (4) Apical variant hypertrophic cardiomyopathy: Status post ICD placement (5) S/P right coronary artery (RCA) stent placement: Did have chest pain but no ACS Other medical conditions including hypertension, diabetes, chronic kidney disease, chronic anemia and chronic respiratory failure remained stable DVT prophylaxis We will give subcu heparin Admission and Anticipated Discharge Date Admission Date: August 21, 2020 Subjective 08/22/2020 Patient was seen and examined in telemetry unit She has significant cardiomyopathy and was admitted acute on chronic diastolic CHF Has been feeling a lot better since admission Denies any chest pain and/or palpitation Review of Systems Review of Systems: All systems reviewed and are unremarkable except as noted below Respiratory: no dyspnea (No dyspnea at rest) and no wheezing Cardiovascular: + edema; no palpitations Physical Exam Physical Exam: Sitting at the edge of the bed without any acute distress Constitutional: well developed, well nourished, + ill appearing and + obese; no acute distress Eyes: PERRL, conjunctivae normal, anicteric sclerae ENMT: external ear and nose normal, oropharynx normal Neck: trachea midline, no thyromegaly Respiratory: normal respiratory effort; no respiratory distress Auscultation: + diminished lung sounds and + crackles (Minimal to no crackles at the bases) Cardiovascular: Rate/Rhythm: regular rate and regular rhythm Heart Sounds: + murmur (2/6 ESM over precordium) Extremities: + edema (1+ pitting edema bilaterally) Gastrointestinal (Abdomen): Inspection/Auscultation: + abdomen distended and normal bowel sounds Percussion/Palpation: abdomen soft; abdomen nontender Musculoskeletal: No acute arthritis in any joints Neurologic: moves all extremities; no focal motor deficits Psychiatric: A+Ox3, euthymic affect Lymphatic: no cervical or axillary lymphadenopathy Results & Data Results & Data ([facility]) Vital Signs (Past 12 Hours) Vital Signs Temp Pulse Resp BP BP Pulse Ox 10/04/20 11:05 36.7 C 67 18 106/68 93 08/22/20 08:11 36.7 C 69 18 102/66 95 Laboratory Results Short CBC 08/21/20 08/22/20 Range/Units 21:04 04:50 WBC 11.08 H 11.49 H (4.8-10.8) K/uL Hgb 10.2 L 10.3 L (12.0-16.0) g/dL Hct 32.1 L 33.5 L (37-47) % Plt Count 201 212 (130-400) K/uL BMP 08/21/20 08/21/20 08/22/20 21:04 22:13 04:50 Sodium 141 144 Potassium TNP 4.8 5.0 Chloride 110 H 111 H Carbon Dioxide 23 28 BUN 28 H 30 H Creatinine 1.52 H 1.55 H Glucose 206 H 155 H Calcium 8.6 9.0 Cardiac Enzymes 08/21/20 08/22/20 08/22/20 Range/Units 21:04 04:50 10:52 Troponin I 0.227 H* 0.229 H* 0.229 H* (0-0.045) ng/ml Liver Function 08/21/20 08/21/20 Range/Units 21:04 22:13 Total Bilirubin 0.5 (0.2-1) mg/dl AST TNP 15 ALT 24 (12-78) U/L Alkaline Phosphatase 123 H (45-117) U/L Albumin 3.1 L (3.4-5.0) gm/dl Medications Administered Current Inpatient Medications Acetaminophen (Acetaminophen 325 Mg Tab) 650 mg PO Q4H PRN PRN Reason: Pain or Fever Stop: 09/21/20 01:13 Clopidogrel Bisulfate (Clopidogrel Bisulfate 75 Mg Tab) [facility] [place]: 09/21/20 12:14 Last Admin: 08/22/20 13:01 Dose: 75 mg Documented by: Dextrose (Dextrose 50% 50 Ml Syringe) 25 - 50 ml IV UD PRN; Protocol PRN Reason: Hypoglycemia Protocol Stop: 09/21/20 01:29 Glucagon (Glucagon For Inj 1 Mg Vial) 1 mg SQ UD PRN; Protocol PRN Reason: Hypoglycemia Protocol Stop: 09/21/20 01:29 Glucose (Glucose 40% Gel 15 Gm Tube) 15 - 30 gm PO UD PRN; Protocol PRN Reason: Hypoglycemia Protocol Stop: 09/21/20 01:29 Glucose (Glucose 10 Tabs/Tube) 4 - 8 tabs PO UD PRN; Protocol PRN Reason: Hypoglycemia Protocol Stop: 09/21/20 01:29 Furosemide 40 mg/ Syringe 4 mls @ 4 mls/min IV BID17 [facility] Stop: 09/21/20 11:44 Last Admin: 08/22/20 12:03 Dose: 4 mls/min Documented by: Insulin Aspart (Insulin Aspart 100 Units/Ml 3 Ml Pen) 0 units SC ACHS [facility] Stop: 09/21/20 07:29 Last Admin: 08/22/20 12:11 Dose: 1 units Documented by: Insulin Glargine (Insulin Glargine Solostar 100 Units/Ml 3 Ml Pen) 10 units SC BID [facility] Stop: 09/21/20 08:59 Last Admin: 08/22/20 08:59 Dose: 10 units Documented by: Miscellaneous (Carbohydrates For Hypoglycemia ) 15 - 30 gm PO UD PRN PRN Reason: Hypoglycemia Treatment Stop: 09/21/20 01:29 Nitroglycerin (Nitroglycerin Sl 0.4 Mg/Tab Tab) 0.4 mg SL UD PRN PRN Reason: Chest Pain Stop: 09/21/20 01:13 Ondansetron HCl (Ondansetron Inj 2 Mg/Ml 2 Ml Vial) 4 mg IV Q6H PRN PRN Reason: Nausea Stop: 09/21/20 01:13 Polyethylene Glycol (Polyethylene (Miralax) 17 Gm Pack) 17 gm PO DAILY PRN PRN Reason: Constipation Stop: 09/21/20 01:13 Spironolactone (Spironolactone 25 Mg Tab) 25 mg PO QAM [facility] Stop: 09/21/20 11:44 Last Admin: 08/22/20 13:00 Dose: 25 mg Documented by: Verapamil HCl (Verapamil Hcl 40 Mg Tab) 40 mg PO QID [facility] Stop: 09/21/20 12:59 Last Admin: 08/22/20 12:34 Dose: 40 mg Documented by: (1) CAD (coronary artery disease), [place] coronary artery [place] vs. transplanted heart: [place] heart Associated angina: with unstable angina Qualified Code(s): I25.110 - Atherosclerotic heart disease of [place] coronary artery with unstable angina pectoris
[2020-08-22] MEDS: HEPARIN SOD 5,000 UNIT/0.5 ML VIAL SQ SCH (20:07)
[2020-08-23 07:31] LABS: BUN Creatinine Ratio 21.1 (10-20); Calcium 9.4 mg/dl (8.5-10.1); Est GFR (African American) 37.9; Est GFR (Non-African American) 32.7; Magnesium 2.1 mg/dl (1.8-2.4); Phosphorus 3.7 mg/dl (2.5-4.9); Potassium 4.3 mmol/L (3.5-5.1)
[2020-08-23 07:34] LABS: Basophils # (auto) 0.01 K/uL (0-0.2); Basophils % (auto) 0.1 %; Eosinophils # (auto) 0.13 K/uL (0-0.5); Eosinophils % (auto) 1.4 %; Hematocrit (blood only) 33.5 % (37-47); Hemoglobin 10.7 g/dL (12.0-16.0); Immature Granulocytes # (auto) 0.04 K/uL (0.00-0.02); Immature Granulocytes % (auto) 0.4 %; Lymphocytes # (auto) 0.83 K/uL (1.2-3.4); Lymphocytes % (auto) 8.7 %; Mean Corpuscular Hemoglobin 27.7 pg (25-34); Mean Corpuscular Hgb Conc 31.9 g/dL (32-36); Mean Corpuscular Volume 86.8 fL (80-100); Mean Platelet Volume 9.4 fL (7.4-10.4); Monocytes # (auto) 0.49 K/uL (0.11-0.59); Monocytes % (auto) 5.1 %; Neutrophils # (auto) 8.06 K/uL (1.4-6.5); Neutrophils % (auto) 84.3 %; Platelet Count 211 K/uL (130-400); RDW Coefficient of Variation 17.7 % (11.5-14.5); RDW Standard Deviation 55.1 fL (36.4-46.3); Red Blood Count 3.86 M/uL (4.2-5.4); White Blood Count 9.56 K/uL (4.8-10.8)
[2020-08-23] MEDS: VERAPAMIL HCL 40 MG TAB PO SCH ×4 (08:31→22:00)
[2020-08-23] MEDS: SPIRONOLACTONE 25 MG TAB PO SCH (08:31)
[2020-08-23] MEDS: CLOPIDOGREL BISULFATE 75 MG TAB PO SCH (08:32)
[2020-08-23] MEDS: ACETAMINOPHEN 325 MG TAB PO PRN ×2 (08:32→22:06)
[2020-08-23] MEDS: INSULIN ASPART 100 UNITS/ML 3 ML PEN SC SCH ×4 (08:33→22:02)
[2020-08-23] MEDS: INSULIN GLARGINE SOLOSTAR 100 UNITS/ML 3 ML PEN SC SCH ×2 (08:34→22:01)
[2020-08-23] MEDS: HEPARIN SOD 5,000 UNIT/0.5 ML VIAL SQ SCH ×2 (08:34→21:59)
[2020-08-23] MEDS: FUROSEMIDE 40 MG in SYRINGE 0 ML IV SCH (09:29)
--- NOTE | 2020-08-23 11:35 | Cardiology Progress Note ---
Date of Service August 23, 2020 Assessment & Plan (1) CAD (coronary artery disease), nondalton coronary artery: (2) S/P right coronary artery (RCA) stent placement: (3) Elevated troponin: (4) Diastolic CHF, acute on chronic: (5) Apical variant hypertrophic cardiomyopathy: Patient diuresed overnight and down approx 5 kg. Continues to have faint rales and LE edema on exam, consistent with ongoing volume overload. Continue IV diuretics today. Likely hold diuretics in AM until evaluated and labs reviewed. Given history of hypertrophic cardiomyopathy and small LV chamber size, will need to monitor for overdiuresis. Repeat BMP tomorrow AM. Case discussed with Dr. Grant. Will follow. Admission and Anticipated Discharge Date Admission Date: August 21, 2020 Supervising Physician Co-Signing Physician Notes I have discussed the case with Rick, reviewed the medical record and examined the patient. I agree with the plan as outlined. In addition, the patient has a history of major depression. Today she sitting in a darkened room and indicating that she feeling depressed again. She is having difficulty dealing with her health issues. It may be helpful for us to have psychiatry see her and start medications if necessary. Subjective Patient evaluated this morning resting in bed comfortably. She reports ongoing dyspnea with minimal activity upon ambulation to the restroom. She denies chest pain. Notes ongoing cough with yellow sputum production. Still has mild LE edema and feels abdominal bloating. Down 5 kg since admission this morning. she admits to aggressive diuresis over the last 24 hours. No unusual dizziness. No palpitations. Review of Systems Review of Systems: All systems reviewed & are unremarkable except as noted in HPI & below Physical Exam Constitutional: WD/WN, vitals as above well developed; no acute distress Neck: normal visual inspection Respiratory: + abnormal respiratory effort and no respiratory distress Auscultation: + diminished lung sounds and + rales (faint rales noted b/l) Cardiovascular: Rate/Rhythm: regular rate and regular rhythm Heart Sounds: + murmur (II/ systolic murmur SLB) Vessels: no JVD Extremities: + edema (1+ pretibial edema b/l) Gastrointestinal (Abdomen): normal bowel sounds, soft, nontender, no hepatosplenomegaly Neurologic: PERRL, EOMI, accommodation nl, no face palsy, no dysarthria Psychiatric: A+Ox3, euthymic affect Results & Data ([facility]) Vital Signs (Past 12 Hours) Vital Signs Temp Pulse Pulse Resp BP BP Pulse Ox 08/23/20 11:19 36.4 C L 76 18 111/71 99 08/23/20 07:08 36.4 C L 77 18 117/76 95 08/23/20 03:00 36.6 C 75 22 118/75 98 08/23/20 00:00 71 08/22/20 23:50 36.7 C 68 18 109/79 99 Laboratory Results 08/23/20 08/23/20 08/23/20 Range/Units 11:17 07:43 06:48 WBC 9.56 (4.8-10.8) K/uL RBC 3.86 L (4.2-5.4) M/uL Hgb 10.7 L (12.0-16.0) g/dL Hct 33.5 L (37-47) % MCV 86.8 (80-100) fL MCH 27.7 (25-34) pg MCHC 31.9 L (32-36) g/dL RDW Std Deviation 55.1 H (36.4-46.3) fL RDW Coeff of Rolan 17.7 H (11.5-14.5) % Plt Count 211 (130-400) K/uL MPV 9.4 (7.4-10.4) fL Immature Gran % (Auto) 0.4 % Neut % (Auto) 84.3 % Lymph % (Auto) 8.7 % Griggs % (Auto) 5.1 % Eos % (Auto) 1.4 % Baso % (Auto) 0.1 % Neut # (Auto) 8.06 H (1.4-6.5) K/uL Lymph # (Auto) 0.83 L (1.2-3.4) K/uL Griggs # (Auto) 0.49 (0.11-0.59) K/uL Eos # (Auto) 0.13 (0-0.5) K/uL Baso # (Auto) 0.01 (0-0.2) K/uL Immature Gran # (Auto) 0.04 H (0.00-0.02) K/uL Sodium (136-145) mmol/L Potassium (3.5-5.1) mmol/L Chloride (98-107) mmol/L Carbon Dioxide (21-32) mmol/L Anion Gap (3-11) BUN (7-18) mg/dl Creatinine (0.6-1.2) mg/dl Est Cr Clr Drug Dosing ml/min Est GFR ( Amer) Est GFR (Non-Af Amer) BUN/Creatinine Ratio (10-20) Glucose (70-99) mg/dl POC Glucose 247 H 156 H (70-99) mg/dl Calcium (8.5-10.1) mg/dl Phosphorus (2.5-4.9) mg/dl Magnesium (1.8-2.4) mg/dl Troponin I (0-0.045) ng/ml 08/23/20 08/22/20 08/22/20 Range/Units 06:48 19:57 16:17 WBC (4.8-10.8) K/uL RBC (4.2-5.4) M/uL Hgb (12.0-16.0) g/dL Hct (37-47) % MCV (80-100) fL MCH (25-34) pg MCHC (32-36) g/dL RDW Std Deviation (36.4-46.3) fL RDW Coeff of Rolan (11.5-14.5) % Plt Count (130-400) K/uL MPV (7.4-10.4) fL Immature Gran % (Auto) % Neut % (Auto) % Lymph % (Auto) % Griggs % (Auto) % Eos % (Auto) % Baso % (Auto) % Neut # (Auto) (1.4-6.5) K/uL Lymph # (Auto) (1.2-3.4) K/uL Griggs # (Auto) (0.11-0.59) K/uL Eos # (Auto) (0-0.5) K/uL Baso # (Auto) (0-0.2) K/uL Immature Gran # (Auto) (0.00-0.02) K/uL Sodium 139 (136-145) mmol/L Potassium 4.3 (3.5-5.1) mmol/L Chloride 103 (98-107) mmol/L Carbon Dioxide 30 (21-32) mmol/L Anion Gap 6.0 (3-11) BUN 35 H (7-18) mg/dl Creatinine 1.66 H (0.6-1.2) mg/dl Est Cr Clr Drug Dosing 31.0 ml/min Est GFR ( Amer) 37.9 Est GFR (Non-Af Amer) 32.7 BUN/Creatinine Ratio 21.1 H (10-20) Glucose 150 H (70-99) mg/dl POC Glucose 180 H 152 H (70-99) mg/dl Calcium 9.4 (8.5-10.1) mg/dl Phosphorus 3.7 (2.5-4.9) mg/dl Magnesium 2.1 (1.8-2.4) mg/dl Troponin I (0-0.045) ng/ml 08/22/20 Range/Units 10:52 WBC (4.8-10.8) K/uL RBC (4.2-5.4) M/uL Hgb (12.0-16.0) g/dL Hct (37-47) % MCV (80-100) fL MCH (25-34) pg MCHC (32-36) g/dL RDW Std Deviation (36.4-46.3) fL RDW Coeff of Rolan (11.5-14.5) % Plt Count (130-400) K/uL MPV (7.4-10.4) fL Immature Gran % (Auto) % Neut % (Auto) % Lymph % (Auto) % Griggs % (Auto) % Eos % (Auto) % Baso % (Auto) % Neut # (Auto) (1.4-6.5) K/uL Lymph # (Auto) (1.2-3.4) K/uL Griggs # (Auto) (0.11-0.59) K/uL Eos # (Auto) (0-0.5) K/uL Baso # (Auto) (0-0.2) K/uL Immature Gran # (Auto) (0.00-0.02) K/uL Sodium (136-145) mmol/L Potassium (3.5-5.1) mmol/L Chloride (98-107) mmol/L Carbon Dioxide (21-32) mmol/L Anion Gap (3-11) BUN (7-18) mg/dl Creatinine (0.6-1.2) mg/dl Est Cr Clr Drug Dosing ml/min Est GFR ( Amer) Est GFR (Non-Af Amer) BUN/Creatinine Ratio (10-20) Glucose (70-99) mg/dl POC Glucose (70-99) mg/dl Calcium (8.5-10.1) mg/dl Phosphorus (2.5-4.9) mg/dl Magnesium (1.8-2.4) mg/dl Troponin I 0.229 H* (0-0.045) ng/ml Diagnostic Findings Telemetry reviewed: NSR, no significant arrhythmias Chest CT completed yesterday: IMPRESSION: 1. Cardiomegaly and coronary artery calcifications 2. Subtle septal edema 3. Groundglass attenuation of the lungs with a mosaic distribution. This could indicate air trapping. 4. 5 mm left lower lobe pulmonary nodule 5. Multiple borderline enlarged mediastinal lymph nodes 6. Mild hepatic steatosis Medications Administered Current Inpatient Medications Acetaminophen (Acetaminophen 325 Mg Tab) 650 mg PO Q4H PRN PRN Reason: Pain or Fever Stop: 09/21/20 01:13 Last Admin: 08/23/20 08:32 Dose: 650 mg Documented by: Clopidogrel Bisulfate (Clopidogrel Bisulfate 75 Mg Tab) 75 mg PO QAM [facility] Stop: 09/21/20 12:14 Last Admin: 08/23/20 08:32 Dose: 75 mg Documented by: Dextrose (Dextrose 50% 50 Ml Syringe) 25 - 50 ml IV UD PRN; Protocol PRN Reason: Hypoglycemia Protocol Stop: 09/21/20 01:29 Glucagon (Glucagon For Inj 1 Mg Vial) 1 mg SQ UD PRN; Protocol PRN Reason: Hypoglycemia Protocol Stop: 09/21/20 01:29 Glucose (Glucose 40% Gel 15 Gm Tube) 15 - 30 gm PO UD PRN; Protocol PRN Reason: Hypoglycemia Protocol Stop: 09/21/20 01:29 Glucose (Glucose 10 Tabs/Tube) 4 - 8 tabs PO UD PRN; Protocol PRN Reason: Hypoglycemia Protocol Stop: 09/21/20 01:29 Heparin Sodium (Porcine) (Heparin Sod 5,000 Unit/0.5 Ml Vial) 5,000 units SQ Q12 [facility] Stop: 09/21/20 20:59 Last Admin: 08/23/20 08:34 Dose: Not Given Documented by: Furosemide 40 mg/ Syringe 4 mls @ 4 mls/min IV [id number] [facility] Stop: 09/21/20 11:44 Last Admin: 08/23/20 09:29 Dose: 4 mls/min Documented by: Insulin Aspart (Insulin Aspart 100 Units/Ml 3 Ml Pen) 0 units SC ACHS [facility] Stop: 09/21/20 07:29 Last Admin: 08/23/20 08:33 Dose: 1 units Documented by: Insulin Glargine (Insulin Glargine Solostar 100 Units/Ml 3 Ml Pen) 10 units SC BID [facility] Stop: 09/21/20 08:59 Last Admin: 08/23/20 08:34 Dose: 10 units Documented by: Miscellaneous (Carbohydrates For Hypoglycemia ) 15 - 30 gm PO UD PRN PRN Reason: Hypoglycemia Treatment Stop: 09/21/20 01:29 Nitroglycerin (Nitroglycerin Sl 0.4 Mg/Tab Tab) 0.4 mg SL UD PRN PRN Reason: Chest Pain Stop: 09/21/20 01:13 Ondansetron HCl (Ondansetron Inj 2 Mg/Ml 2 Ml Vial) 4 mg IV Q6H PRN PRN Reason: Nausea Stop: 09/21/20 01:13 Polyethylene Glycol (Polyethylene (Miralax) 17 Gm Pack) 17 gm PO DAILY PRN PRN Reason: Constipation Stop: 09/21/20 01:13 Spironolactone (Spironolactone 25 Mg Tab) 25 mg PO QAM [facility] Stop: 09/21/20 11:44 Last Admin: 08/23/20 08:31 Dose: 25 mg Documented by: Verapamil HCl (Verapamil Hcl 40 Mg Tab) 40 mg PO QID [facility] Stop: 09/21/20 12:59 Last Admin: 08/23/20 08:31 Dose: 40 mg Documented by: (1) CAD (coronary artery disease), nondalton coronary artery Associated angina: with unstable angina [place] vs. transplanted heart: nondalton heart Qualified Code(s): I25.110 - Atherosclerotic heart disease of nondalton coronary artery with unstable angina pectoris
--- NOTE | 2020-08-23 12:02 | Hospitalist Progress Note ---
Date of Service August 23, 2020 Assessment & Plan (1) Diastolic CHF, acute on chronic: Presented with shortness of breath and chest pain Did have increasing edema and chest x-ray did show mild congestion Has been getting intravenous Lasix and condition has been improving Patient had cardiology input and recommendation Has been diuresing enough and chest symptoms much clearer still complains to of shortness of breath Has cough with whitish-yellow phlegm likely secondary to congestion (2) Elevated troponin: Chest pain on admission Troponins mildly elevated at 0.2 range and not showing any significant elevation on serial testing Has chronic EKG changes No evidence of ACS (3) CAD (coronary artery disease), viejas coronary artery: (4) Apical variant hypertrophic cardiomyopathy: Status post ICD placement (5) S/P right coronary artery (RCA) stent placement: Did have chest pain but no ACS Other medical conditions including hypertension, diabetes, chronic kidney disease, chronic anemia and chronic respiratory failure remained stable DVT prophylaxis We will give subcu heparin (6) Depression with anxiety: She has a history of depression with anxiety She seems to be very depressed with continued comorbid medical conditions Psychiatrist has been consulted Admission and Anticipated Discharge Date Admission Date: August 21, 2020 Subjective 08/22/2020 Patient was seen and examined in telemetry unit She has significant cardiomyopathy and was admitted acute on chronic diastolic CHF Has been feeling a lot better since admission Denies any chest pain and/or palpitation 08/23/2020 The patient was seen and examined in telemetry unit She looked very depressed and feels that she has not improved Remains shortness of breath at rest but denies any chest pain and/or palpitation Has had cough with whitish-yellow phlegm without any fever and/or chills Review of Systems Review of Systems: All systems reviewed and are unremarkable except as noted below Respiratory: + cough and + dyspnea on exertion; no wheezing Cardiovascular: + edema; no palpitations Physical Exam Physical Exam: Sitting at the edge of the bed without any acute distress Constitutional: well developed, well nourished, + ill appearing and + obese; no acute distress Eyes: PERRL, conjunctivae normal, anicteric sclerae ENMT: external ear and nose normal, oropharynx normal Neck: trachea midline, no thyromegaly Respiratory: normal respiratory effort; no respiratory distress Auscultation: + diminished lung sounds and + crackles (Minimal to no crackles at the bases) Cardiovascular: Rate/Rhythm: regular rate and regular rhythm Heart Sounds: + murmur (2/6 ESM over precordium) Extremities: + edema (1+ pitting edema bilaterally) Gastrointestinal (Abdomen): Inspection/Auscultation: + abdomen distended and normal bowel sounds Percussion/Palpation: abdomen soft; abdomen nontender Musculoskeletal: No acute arthritis involving any joint Neurologic: moves all extremities; no focal motor deficits Alert, awake and oriented x3. Generally weak Psychiatric: Orientation: alert and oriented x 3 Affect: + depressed affect Mood: + depressed mood Lymphatic: no cervical or axillary lymphadenopathy Results & Data Results & Data ([facility]) Vital Signs (Past 12 Hours) Vital Signs Temp Pulse Pulse Resp BP BP Pulse Ox 08/23/20 11:19 36.4 C L 76 18 111/71 99 08/23/20 07:08 36.4 C L 77 18 117/76 95 08/23/20 03:00 36.6 C 75 22 118/75 98 08/23/20 00:00 71 Laboratory Results Short CBC 08/23/20 Range/Units 06:48 WBC 9.56 (4.8-10.8) K/uL Hgb 10.7 L (12.0-16.0) g/dL Hct 33.5 L (37-47) % Plt Count 211 (130-400) K/uL BMP 08/23/20 06:48 Sodium 139 Potassium 4.3 Chloride 103 Carbon Dioxide 30 BUN 35 H Creatinine 1.66 H Glucose 150 H Calcium 9.4 Medications Administered Current Inpatient Medications Acetaminophen (Acetaminophen 325 Mg Tab) 650 mg PO Q4H PRN PRN Reason: Pain or Fever Stop: 09/21/20 01:13 Last Admin: 08/23/20 08:32 Dose: 650 mg Documented by: Clopidogrel Bisulfate (Clopidogrel Bisulfate 75 Mg Tab) [facility] Stop: 09/21/20 12:14 Last Admin: 08/23/20 08:32 Dose: 75 mg Documented by: Dextrose (Dextrose 50% 50 Ml Syringe) 25 - 50 ml IV UD PRN; Protocol PRN Reason: Hypoglycemia Protocol Stop: 09/21/20 01:29 Glucagon (Glucagon For Inj 1 Mg Vial) 1 mg SQ UD PRN; Protocol PRN Reason: Hypoglycemia Protocol Stop: 09/21/20 01:29 Glucose (Glucose 40% Gel 15 Gm Tube) 15 - 30 gm PO UD PRN; Protocol PRN Reason: Hypoglycemia Protocol Stop: 09/21/20 01:29 Glucose (Glucose 10 Tabs/Tube) 4 - 8 tabs PO UD PRN; Protocol PRN Reason: Hypoglycemia Protocol Stop: 09/21/20 01:29 Heparin Sodium (Porcine) (Heparin Sod 5,000 Unit/0.5 Ml Vial) 5,000 units SQ Q12 [facility] Stop: 09/21/20 20:59 Last Admin: 08/23/20 08:34 Dose: Not Given Documented by: Furosemide 40 mg/ Syringe 4 mls @ 4 mls/min IV [id number] [facility] Stop: 09/21/20 11:44 Last Admin: 08/23/20 09:29 Dose: 4 mls/min Documented by: Insulin Aspart (Insulin Aspart 100 Units/Ml 3 Ml Pen) 0 units SC ACHS [facility] Stop: 09/21/20 07:29 Last Admin: 08/23/20 08:33 Dose: 1 units Documented by: Insulin Glargine (Insulin Glargine Solostar 100 Units/Ml 3 Ml Pen) 10 units SC BID [facility] Stop: 09/21/20 08:59 Last Admin: 08/23/20 08:34 Dose: 10 units Documented by: Miscellaneous (Carbohydrates For Hypoglycemia ) 15 - 30 gm PO UD PRN PRN Reason: Hypoglycemia Treatment Stop: 09/21/20 01:29 Nitroglycerin (Nitroglycerin Sl 0.4 Mg/Tab Tab) 0.4 mg SL UD PRN PRN Reason: Chest Pain Stop: 09/21/20 01:13 Ondansetron HCl (Ondansetron Inj 2 Mg/Ml 2 Ml Vial) 4 mg IV Q6H PRN PRN Reason: Nausea Stop: 09/21/20 01:13 Polyethylene Glycol (Polyethylene (Miralax) 17 Gm Pack) 17 gm PO DAILY PRN PRN Reason: Constipation Stop: 09/21/20 01:13 Spironolactone (Spironolactone 25 Mg Tab) 25 mg PO QAM [facility] Stop: 09/21/20 11:44 Last Admin: 08/23/20 08:31 Dose: 25 mg Documented by: Verapamil HCl (Verapamil Hcl 40 Mg Tab) 40 mg PO QID [facility] Stop: 09/21/20 12:59 Last Admin: 08/23/20 08:31 Dose: 40 mg Documented by: (1) CAD (coronary artery disease), viejas coronary artery [place] vs. transplanted heart: viejas heart Associated angina: with unstable angina Qualified Code(s): I25.110 - Atherosclerotic heart disease of viejas coronary artery with unstable angina pectoris
--- NOTE | 2020-08-23 15:28 | Psychiatric Consultation ---
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 Patient's main complaint is chronically disrupted sleep which is likely a combo of undertreated apnea as well as past rx for restless legs (?Requip in 2017). Given complexity of cardiopulmonary status/disease would defer to medical team re: appropriate sleep intervention/study. There is no indication for inpatient psychiatric admission. She declines retrial of antidepressant or therapy, again I'd favor normalizing sleep as main intervention before reinitiating any antidepressant trials. Risk Factors Assessment Do You Have Access To A Gun?: No Psych History Identifying Data 60 yo female, frequent admits for cardiac concerns and ongoing SOB, consult by Dr. Emmanuel for severe depression. Chief Complaint "I don't know what I want, there is clearly a lot of stress ". History of Present Illness Patient recalls meeting with the psychiatric nurse prac for our service in 2017. At that time she had AMS, ?serotonin syndrome as was on a combination of psychiatric medications (Zoloft 150, Amytriplylilne 50 mg for sleep/pain, duloxetine 60 mg hs--neuropathy, gabapentin, trazodone 100 mg, prn lorazepam). She states since that time she's mainly been "tapered off everything" and "I really don't want all those pills anymore". When asked if she would be agreeable to therapy she said "I have too much going on". She states that between her appoinments, her daughter's appointments (daughter has epilepsy and was recently hospitalized for illness) and caring for her 8 yo granddaughter she barely has time to meet with her [facility] medicare sales representative for the home health program. She reports her sleep is chronically disrupted and she is O2 dependent at night but doesn't wear her mask as "I just flip flop around and it's off". Other than her baseline worries about "things anyone would worry about" she does not paricularly view herself as depressed or that the stress directly contributes to her CP/SOB. Past Psychiatric History Previous Psych Admissions: none Do You Have Access To A Gun?: No History of Previous Suicide Attempt: No Past Medication Trials: meds listed above, she cannot recall others Allergies Allergy/AdvReac Type Severity Reaction Status Date / Time Penicillins Allergy Intermediate Flushing, Verified 08/21/20 23:50 Itchiness Sulfa (Sulfonamide Allergy Intermediate Swelling Verified 08/21/20 23:50 Antibiotics) doxycycline Allergy Unknown Unknown Verified 08/21/20 23:50 adhesive AdvReac Intermediate Blistering Verified 08/21/20 23:50 Home Medications Home Medications Medication Instructions Recorded Confirmed Type duloxetine 60 mg PO QAM 08/09/18 08/21/20 History folic acid 1 mg PO HS 08/09/18 08/21/20 History sumatriptan succinate 50 mg PO DIRECTED PRN 08/09/18 08/21/20 History albuterol sulfate 3 ml INHALATION Q4H PRN 09/09/18 08/21/20 History diphenoxylate-atropine [Lomotil] 1 tab PO QID PRN 12/19/18 08/21/20 History albuterol sulfate [Ventolin HFA] 2 puff INHALATION Q4H PRN 06/30/19 08/21/20 History duloxetine 30 mg PO QAM 06/30/19 08/21/20 History fluticasone propion-salmeterol 1 inh INHALATION BID 06/30/19 08/21/20 History [Advair Diskus] gabapentin 300 mg PO TID 06/30/19 08/21/20 History nitroglycerin [Nitrostat] 0.4 mg SUBLINGUAL DIRECTED PRN 06/30/19 08/21/20 History ondansetron 4 mg TRANSLINGUAL Q8H PRN 06/30/19 08/21/20 History spironolactone [Aldactone] 25 mg PO QAM 06/30/19 08/21/20 History metoprolol succinate 100 mg PO BID 09/25/19 08/21/20 History mirtazapine 45 mg PO HS 09/25/19 08/21/20 History ropinirole 0.5 mg PO HS 09/25/19 08/21/20 History budesonide 0.5 mg INHALATION Q12 01/13/20 08/21/20 History torsemide 10 mg PO QAM 01/13/20 08/21/20 History verapamil 40 mg PO QID 01/13/20 08/21/20 History atorvastatin [Lipitor] 40 mg PO QAM 04/30/20 08/21/20 History insulin asp prt-insulin aspart 25 unit SUBCUT DAILYBD 07/07/20 08/21/20 History [Novolog Mix 70-30FlexPen U-100] insulin asp prt-insulin aspart 55 unit SUBCUT DAILYBB 07/07/20 08/21/20 History [Novolog Mix 70-30FlexPen U-100] Januvia 100 mg PO DAILY 07/28/20 08/21/20 History Lactobacillus acidoph-L.bulgar 1 tab PO TID 07/28/20 08/21/20 History [Floranex] aspirin 81 mg PO DAILY 07/28/20 08/21/20 History isosorbide mononitrate 30 mg PO QAM 07/28/20 08/21/20 History pantoprazole 40 mg PO BID 07/28/20 08/21/20 History clopidogrel 75 mg PO QAM #30 tab 07/30/20 08/21/20 Rx metformin [Glucophage] 500 mg PO BIDM #0 tab 07/30/20 08/21/20 Rx Family History father and son ETOH; depression Substance Abuse History denied Personal History Living Arrangements: Home Highest Grade Completed: High School Graduate and Vocational Training ([employer]) Employment Status: Retired ([employer]) Marital Status: Number Of Children: 1 son, 1 alexis Beliefs That Will Affect Care: None History of Legal Problems: denied Patient History Medical History Anxiety Arthritis Asthma Cardiac defibrillator in place 2014 CHF (congestive heart failure) CKD (chronic kidney disease), stage III COPD (chronic obstructive pulmonary disease) Depression Depression with anxiety Diabetes mellitus, type 2 Elevated troponin Elevated troponin Fatty (change of) liver, not elsewhere classified GERD (gastroesophageal reflux disease) HLD (hyperlipidemia) Hydronephrosis of right kidney Hypertension Hypertrophic cardiomyopathy CADENCE (obstructive sleep apnea) on nocturnal O2 2L Pancreatic cyst Restless leg syndrome Surgical History H/O section 1979 & 1982 H/O hernia repair 2016 History of appendectomy 1970s History of colostomy reversal bowel perf 2013 with colostomy reversed in 2014 Status post internal cardiac defibrillator procedure "2015" Status post partial resection of colon "diverticulitis 11/05/14" Family History Other Hypertrophic cardiomyopathy Stomach cancer Thyroid disorder Social History Smoking Status: Never smoker Second Hand Exposure: No; Hx Alcohol Use: No Hx Substance Use: No Preferred Language: Persian Communication Ability: Effective Contaminated Land Consultant Required: No Beliefs That Will Affect Care: None marital status: Current Living Situation: Spouse and Family 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 Other Information That Helps Us Care for You: No Feels Safe at Home: Yes Assistive Devices: None Physical Exam Psychiatric: Orientation: alert Apperance: appropriately groomed Eye Contact: good eye contact Motor Behavior: steady gait and station Speech: normal rate/rhythm/volume of speech Affect: euthymic affect Mood: + anxious mood Thought Process: goal directed thought process Thought Content: reality based without delusions Suicidal Thoughts: denies suicidal thoughts Homicidal Thoughts: denies homicidal thoughts Hallucinations: no auditory hallucinations and no visual hallucinations Cognition: attention grossly intact and language grossly intact Estimated Intelligence: consistent with education level Insight: + fair insight Judgement: + fair judgement Vital Signs (Past 24 Hours): Last Vital Signs Temp 36.4 C L 08/23/20 11:19 Pulse 76 08/23/20 11:19 Resp 18 08/23/20 11:19 BP 111/71 08/23/20 11:19 Pulse Ox 99 08/23/20 11:19 Review of Systems All systems reviewed & are unremarkable except as noted in HPI & below Results & Data (PSY) Medications Administered Acetaminophen (Acetaminophen 325 Mg Tab) 650 mg PO Q4H PRN PRN Reason: Pain or Fever Stop: 09/21/20 01:13 Last Admin: 08/23/20 08:32 Dose: 650 mg Documented by: [id number] Clopidogrel Bisulfate (Clopidogrel Bisulfate 75 Mg Tab) 75 mg PO QAM MARILEE Stop: 09/21/20 12:14 Last Admin: 08/23/20 08:32 Dose: 75 mg Documented by: [id number] Admin: 08/22/20 13:01 Dose: 75 mg Documented by: [id number] Heparin Sodium (Porcine) (Heparin Sod 5,000 Unit/0.5 Ml Vial) 5,000 units SQ Q12 MARILEE Stop: 09/21/20 20:59 Last Admin: 08/23/20 08:34 Dose: Not Given Documented by: [id number] Admin: 08/22/20 20:07 Dose: Not Given Documented by: [id number] Furosemide 40 mg/ Syringe 4 mls @ 4 mls/min IV [id number] [facility] Stop: 09/21/20 11:44 Last Admin: 08/23/20 09:29 Dose: 4 mls/min Documented by: [id number] Admin: 08/22/20 16:41 Dose: 4 mls/min Documented by: [id number] Admin: 08/22/20 12:03 Dose: 4 mls/min Documented by: [id number] Insulin Aspart (Insulin Aspart 100 Units/Ml 3 Ml Pen) 0 units SC ACHS [facility] Stop: 09/21/20 07:29 Last Admin: 08/23/20 12:01 Dose: 4 units Documented by: [id number] Cosigned by: [id number] Admin: 08/23/20 08:33 Dose: 1 units Documented by: [id number] Cosigned by: [id number] Admin: 08/22/20 20:04 Dose: 2 units Documented by: [id number] Cosigned by: [id number] Admin: 08/22/20 16:40 Dose: 1 units Documented by: [id number] Cosigned by: [id number] Admin: 08/22/20 12:11 Dose: 1 units Documented by: [id number] Cosigned by: [id number] Admin: 08/22/20 08:58 Dose: 2 units Documented by: [id number] Cosigned by: [id number] Insulin Glargine (Insulin Glargine Solostar 100 Units/Ml 3 Ml Pen) 10 units SC BID [facility] Stop: 09/21/20 08:59 Last Admin: 08/23/20 08:34 Dose: 10 units Documented by: [id number] Cosigned by: [id number] Admin: 08/22/20 20:06 Dose: 10 units Documented by: [id number] Cosigned by: [id number] Admin: 08/22/20 08:59 Dose: 10 units Documented by: [id number] Cosigned by: [id number] Spironolactone (Spironolactone 25 Mg Tab) 25 mg PO QAM [facility] Stop: 09/21/20 11:44 Last Admin: 08/23/20 08:31 Dose: 25 mg Documented by: [id number] Admin: 08/22/20 13:00 Dose: 25 mg Documented by: [id number] Verapamil HCl (Verapamil Hcl 40 Mg Tab) 40 mg PO QID MARILEE Stop: 09/21/20 12:59 Last Admin: 08/23/20 12:00 Dose: 40 mg Documented by: [id number] Admin: 08/23/20 08:31 Dose: 40 mg Documented by: [id number] Admin: 08/22/20 20:06 Dose: 40 mg Documented by: [id number] Admin: 08/22/20 16:52 Dose: 40 mg Documented by: [id number] Admin: 08/22/20 12:34 Dose: 40 mg Documented by: [id number] Coding Level of Care Code 44935 [facility] Intl Hosp Care Lvl 2
[2020-08-23] MEDS ORDERED: ALBUTEROL HFA 8 GM INHALER INH PRN (16:19)
[2020-08-23] MEDS ORDERED: DIPHENOXYLATE/ATROPINE 2.5/0.025MG TAB PO PRN (16:19)
[2020-08-23] MEDS ORDERED: ALBUTEROL 0.083% NEBU SOLN 3 ML VIAL INH PRN (16:19)
[2020-08-23] MEDS ORDERED: NITROGLYCERIN SL 0.4 MG/TAB TAB SL PRN (16:25)
[2020-08-23] MEDS ORDERED: SUMAtriptan succinate 50 MG TAB PO PRN (16:25)
--- NOTE | 2020-08-23 17:01 | Electrocardiogram Report ---
Test Reason : Blood Pressure : / mmHG Vent. Rate : 071 BPM Atrial Rate : 071 BPM P-R Int : 168 ms QRS Dur : 094 ms QT Int : 448 ms P-R-T Axes : 026 001 100 degrees QTc Int : 486 ms Normal sinus rhythm with sinus arrhythmia Left ventricular hypertrophy with repolarization abnormality Abnormal ECG When compared with ECG of 22-AUG-2020 06:40, No significant change was found Confirmed by Oleksandr Gann ([id number]) on 08/23/2020 5:01:22 PM Referred By: REFERRED SELF Confirmed By:Lavelle Gann
[2020-08-23] MEDS: GABAPENTIN 300 MG CAP PO SCH (21:59)
[2020-08-23] MEDS: FOLIC ACID 1 MG TAB PO SCH (22:00)
[2020-08-23] MEDS: LACTOBACILLUS ACIDOPHILUS (FLORANEX) TAB PO SCH (22:00)
[2020-08-23] MEDS: MIRTAZAPINE SOLTAB 15 MG PO SCH (22:00)
[2020-08-23] MEDS: PANTOprazole 40 MG TAB PO SCH (22:00)
[2020-08-23] MEDS: METOPROLOL SUCC 50MG EXT REL TAB PO SCH (22:00)
[2020-08-23] MEDS: rOPINIRole HCL 0.25 MG TABLET PO SCH (22:01)
[2020-08-24 08:23] LABS: BUN Creatinine Ratio 22.6 (10-20); Calcium 9.8 mg/dl (8.5-10.1); Creatinine Clr Calc Pharmacy 33.5 ml/min; Est GFR (African American) 41.8; Est GFR (Non-African American) 36.1; Magnesium 2.5 mg/dl (1.8-2.4); Potassium 4.4 mmol/L (3.5-5.1)
[2020-08-24] MEDS: INSULIN ASPART 100 UNITS/ML 3 ML PEN SC SCH ×4 (08:34→20:11)
[2020-08-24] MEDS: LACTOBACILLUS ACIDOPHILUS (FLORANEX) TAB PO SCH ×3 (08:35→20:10)
[2020-08-24] MEDS: CLOPIDOGREL BISULFATE 75 MG TAB PO SCH (08:35)
[2020-08-24] MEDS: VERAPAMIL HCL 40 MG TAB PO SCH ×4 (08:35→20:01)
[2020-08-24] MEDS: METOPROLOL SUCC 50MG EXT REL TAB PO SCH ×2 (08:35→20:11)
[2020-08-24] MEDS: ATORVASTATIN 40 MG TAB PO SCH (08:35)
[2020-08-24] MEDS: DULoxetine HCL 30 MG CAP PO SCH (08:35)
[2020-08-24] MEDS: GABAPENTIN 300 MG CAP PO SCH ×3 (08:35→20:08)
[2020-08-24] MEDS: ISOSORBIDE MONO EXTENDED REL 30 MG TABCR PO SCH (08:35)
[2020-08-24] MEDS: DULoxetine HCL 60 MG CAP PO SCH (08:35)
[2020-08-24] MEDS: PANTOprazole 40 MG TAB PO SCH ×2 (08:35→20:10)
[2020-08-24] MEDS: FLUTICASONE/VILANTEROL 200/25MCG 14 PUFFS/INHALER INH SCH (08:36)
[2020-08-24] MEDS: SPIRONOLACTONE 25 MG TAB PO SCH (08:36)
[2020-08-24] MEDS: ASPIRIN 81 MG ECTAB PO SCH (08:36)
[2020-08-24] MEDS: HEPARIN SOD 5,000 UNIT/0.5 ML VIAL SQ SCH ×2 (08:37→20:10)
[2020-08-24] MEDS: INSULIN GLARGINE SOLOSTAR 100 UNITS/ML 3 ML PEN SC SCH ×2 (08:37→20:10)
[2020-08-24] MEDS ORDERED: TORSEMIDE 10 MG TAB PO SCH (09:00)
[2020-08-24] MEDS ORDERED: SPIRONOLACTONE 25 MG TAB PO SCH (09:00)
[2020-08-24] MEDS ORDERED: TORSEMIDE 10 MG TAB PO ONE (11:29)
--- NOTE | 2020-08-24 11:37 | Cardiology Progress Note ---
Date of Service August 24, 2020 Assessment & Plan (1) CAD (coronary artery disease), sioux coronary artery: (2) S/P right coronary artery (RCA) stent placement: (3) Elevated troponin: (4) Diastolic CHF, acute on chronic: (5) Apical variant hypertrophic cardiomyopathy: Patient once again diuresed overnight. Down approx 6 kg since admission with interval improvement in her symptoms. We discussed outpatient diuretics. She has been taking torsemide 10 mg daily and spironolactone. Recommend slight titration of torsemide to 10 mg alternating with 20 mg every other day. Will given 20 mg today to verify she tolerates this dose. Likely discharge home in AM. Repeat BMP in AM as well. Case discussed with Dr. Grant Admission and Anticipated Discharge Date Admission Date: August 23, 2020 Supervising Physician Co-Signing Physician Notes I have discussed the case with Rick, reviewed the medical record, and examined the patient. I agree with the plan as outlined. Subjective Patient sitting out of bed, resting comfortably. Notes interval improvement in her dyspnea since yesterday. Ambulating in room without complaints. Down additional 1 kg. Denies dizziness or chest pain. Edema improved Review of Systems Review of Systems: All systems reviewed & are unremarkable except as noted in HPI & below Physical Exam Constitutional: WD/WN, vitals as above well developed; no acute distress Neck: normal visual inspection Respiratory: + abnormal respiratory effort and no respiratory distress Auscultation: + diminished lung sounds; no crackles, no rales, no rhonchi and no wheezes Cardiovascular: Rate/Rhythm: regular rate and regular rhythm Heart Sounds: + murmur (II/ systolic murmur SLB) Vessels: no JVD Extremities: no edema (1+ pretibial edema b/l) Gastrointestinal (Abdomen): normal bowel sounds, soft, nontender, no hepatosplenomegaly Musculoskeletal: no cyanosis or clubbing, extremities motor strength 5/5 Neurologic: PERRL, EOMI, accommodation nl, no face palsy, no dysarthria Psychiatric: A+Ox3, euthymic affect Results & Data ([facility]) Vital Signs (Past 12 Hours) Vital Signs Temp Pulse Resp BP Pulse Ox 08/24/20 11:26 36.5 C 72 19 119/71 99 08/24/20 07:00 36.5 C 88 20 127/79 97 08/24/20 03:08 36.5 C 84 18 99/56 L 99 08/23/20 23:45 36.7 C 80 18 119/72 98 Laboratory Results 08/24/20 08/24/20 08/24/20 Range/Units 11:23 07:35 07:06 Sodium 141 (136-145) mmol/L Potassium 4.4 (3.5-5.1) mmol/L Chloride 105 (98-107) mmol/L Carbon Dioxide 30 (21-32) mmol/L Anion Gap 6.0 (3-11) BUN 35 H (7-18) mg/dl Creatinine 1.53 H (0.6-1.2) mg/dl Est Cr Clr Drug Dosing 33.5 ml/min Est GFR ( Amer) 41.8 Est GFR (Non-Af Amer) 36.1 BUN/Creatinine Ratio 22.6 H (10-20) Glucose 167 H (70-99) mg/dl POC Glucose 293 H 174 H (70-99) mg/dl Calcium 9.8 (8.5-10.1) mg/dl Magnesium 2.5 H (1.8-2.4) mg/dl 08/23/20 08/23/20 Range/Units 20:27 16:30 Sodium (136-145) mmol/L Potassium (3.5-5.1) mmol/L Chloride (98-107) mmol/L Carbon Dioxide (21-32) mmol/L Anion Gap (3-11) BUN (7-18) mg/dl Creatinine (0.6-1.2) mg/dl Est Cr Clr Drug Dosing ml/min Est GFR ( Amer) Est GFR (Non-Af Amer) BUN/Creatinine Ratio (-20) Glucose (70-99) mg/dl POC Glucose 257 H 144 H (70-99) mg/dl Calcium (8.5-10.1) mg/dl Magnesium (1.8-2.4) mg/dl Diagnostic Findings Telemetry reviewed: NSR, no concerning arrhythmias noted. Medications Administered Current Inpatient Medications Acetaminophen (Acetaminophen 325 Mg Tab) 650 mg PO Q4H PRN PRN Reason: Pain or Fever Stop: 09/21/20 01:13 Last Admin: 08/23/20 22:06 Dose: 650 mg Documented by: Albuterol (Albuterol Hfa 8 Gm Inhaler) 2 puffs INH Q4H PRN PRN Reason: Wheezing Stop: 09/22/20 16:18 Albuterol (Albuterol 0.083% Nebu Soln 3 Ml Vial) 2.5 mg INH Q4H PRN PRN Reason: Wheezing Stop: 09/22/20 16:18 Aspirin (Aspirin 81 Mg Ectab) 81 mg PO DAILY MARILEE Stop: 09/23/20 08:59 Last Admin: 08/24/20 08:36 Dose: 81 mg Documented by: Atorvastatin Calcium (Atorvastatin 40 Mg Tab) 40 mg PO QAM [facility] Stop: 09/23/20 08:59 Last Admin: 08/24/20 08:35 Dose: 40 mg Documented by: Clopidogrel Bisulfate (Clopidogrel Bisulfate 75 Mg Tab) 75 mg PO QAM [facility] Stop: 09/23/20 08:59 Last Admin: 08/24/20 08:35 Dose: 75 mg Documented by: Dextrose (Dextrose 50% 50 Ml Syringe) 25 - 50 ml IV UD PRN; Protocol PRN Reason: Hypoglycemia Protocol Stop: 09/21/20 01:29 Diphenoxylate HCl/Atropine (Diphenoxylate/Atropine 2.5/0.025mg Tab) 1 tab PO QID PRN PRN Reason: Diarrhea Stop: 09/22/20 16:18 Duloxetine HCl (Duloxetine Hcl 60 Mg Cap) 60 mg PO QAM [facility] Stop: 09/23/20 08:59 Last Admin: 08/24/20 08:35 Dose: 60 mg Documented by: Duloxetine HCl (Duloxetine Hcl 30 Mg Cap) 30 mg PO QAM [facility] Stop: 09/23/20 08:59 Last Admin: 08/24/20 08:35 Dose: 30 mg Documented by: Fluticasone/Vilanterol (Fluticasone/Vilanterol 200/25mcg 14 Puffs/Inhaler) 1 puffs INH DAILY MARILEE; Protocol Stop: 09/23/20 08:59 Last Admin: 08/24/20 08:36 Dose: 1 puffs Documented by: Folic Acid (Folic Acid 1 Mg Tab) 1 mg PO HS MARILEE Stop: 09/22/20 20:59 Last Admin: 08/23/20 22:00 Dose: 1 mg Documented by: Gabapentin (Gabapentin 300 Mg Cap) 300 mg PO TID MARILEE Stop: 09/22/20 20:59 Last Admin: 08/24/20 08:35 Dose: 300 mg Documented by: Glucagon (Glucagon For Inj 1 Mg Vial) 1 mg SQ UD PRN; Protocol PRN Reason: Hypoglycemia Protocol Stop: 09/21/20 01:29 Glucose (Glucose 40% Gel 15 Gm Tube) 15 - 30 gm PO UD PRN; Protocol PRN Reason: Hypoglycemia Protocol Stop: 09/21/20 01:29 Glucose (Glucose 10 Tabs/Tube) 4 - 8 tabs PO UD PRN; Protocol PRN Reason: Hypoglycemia Protocol Stop: 09/21/20 01:29 Heparin Sodium (Porcine) (Heparin Sod 5,000 Unit/0.5 Ml Vial) 5,000 units SQ Q12 MAR[facility]E Stop: 09/21/20 20:59 Last Admin: 08/24/20 08:37 Dose: 5,000 units Documented by: Insulin Aspart (Insulin Aspart 100 Units/Ml 3 Ml Pen) 0 units SC ACHS [facility] Stop: 09/21/20 07:29 Last Admin: 08/24/20 08:34 Dose: 9 units Documented by: Insulin Glargine (Insulin Glargine Solostar 100 Units/Ml 3 Ml Pen) 10 units SC BID [facility] Stop: 09/21/20 08:59 Last Admin: 08/24/20 08:37 Dose: 10 units Documented by: Isosorbide Mononitrate (Isosorbide Ector Extended Rel 30 Mg Tabcr) 30 mg PO QAM MARILEE Stop: 09/23/20 08:59 Last Admin: 08/24/20 08:35 Dose: 30 mg Documented by: Lactobacillus Acidophilus (Lactobacillus Acidophilus (Floranex) Tab) 1 tab PO TID [facility] Stop: 09/22/20 20:59 Last Admin: 08/24/20 08:35 Dose: 1 tab Documented by: Metoprolol Succinate (Metoprolol Succ 50mg Ext Rel Tab) 100 mg PO BID MARILEE Stop: 09/22/20 20:59 Last Admin: 08/24/20 08:35 Dose: 100 mg Documented by: Mirtazapine (Mirtazapine Soltab 15 Mg) 45 mg PO HS MARILEE Stop: 09/22/20 20:59 Last Admin: 08/23/20 22:00 Dose: 45 mg Documented by: Miscellaneous (Carbohydrates For Hypoglycemia ) 15 - 30 gm PO UD PRN PRN Reason: Hypoglycemia Treatment Stop: 09/21/20 01:29 Nitroglycerin (Nitroglycerin Sl 0.4 Mg/Tab Tab) 0.4 mg SL UD PRN PRN Reason: Chest Pain Stop: 09/21/20 01:13 Ondansetron HCl (Ondansetron Inj 2 Mg/Ml 2 Ml Vial) 4 mg IV Q6H PRN PRN Reason: Nausea Stop: 09/21/20 01:13 Pantoprazole Sodium (Pantoprazole 40 Mg Tab) 40 mg PO BID MARILEE Stop: 09/22/20 20:59 Last Admin: 08/24/20 08:35 Dose: 40 mg Documented by: Polyethylene Glycol (Polyethylene (Miralax) 17 Gm Pack) 17 gm PO DAILY PRN PRN Reason: Constipation Stop: 09/21/20 01:13 Ropinirole HCl (Ropinirole Hcl 0.25 Mg Tablet) 0.5 mg PO HS MARILEE Stop: 09/22/20 20:59 Last Admin: 08/23/20 22:01 Dose: 0.5 mg Documented by: Spironolactone (Spironolactone 25 Mg Tab) 25 mg PO QAM MARILEE Stop: 09/21/20 11:44 Last Admin: 08/24/20 08:36 Dose: 25 mg Documented by: Sumatriptan Succinate (Sumatriptan Succinate 50 Mg Tab) 50 mg PO UD PRN PRN Reason: Migraine Headache Stop: 09/22/20 16:24 Torsemide (Torsemide 10 Mg Tab) 10 mg PO UD MARILEE Stop: 09/24/20 07:59 Torsemide (Torsemide 10 Mg Tab) 20 mg PO UD MARILEE Stop: 09/25/20 07:59 Verapamil HCl (Verapamil Hcl 40 Mg Tab) 40 mg PO QID MARILEE Stop: 09/22/20 16:59 Last Admin: 08/24/20 08:35 Dose: 40 mg Documented by: (1) CAD (coronary artery disease), sioux coronary artery Associated angina: with unstable angina [place] vs. transplanted heart: sioux heart Qualified Code(s): I25.110 - Atherosclerotic heart disease of sioux coronary artery with unstable angina pectoris
--- NOTE | 2020-08-24 18:15 | Hospitalist Progress Note ---
Date of Service August 24, 2020 Assessment & Plan (1) Diastolic CHF, acute on chronic: Presented with shortness of breath and chest pain Did have increasing edema and chest x-ray did show mild congestion Has been getting intravenous Lasix and condition has been improving Patient had cardiology input and recommendation Has been diuresing enough and chest symptoms much clearer still complains to of shortness of breath Has cough with whitish-yellow phlegm likely secondary to congestion She has been back on her oral furosemide Has been feeling lot better today Likely be discharged tomorrow Sleep apnea He has history of severe sleep apnea and may be the cause for her chronic insomnia Has history of sleep apnea and intolerable to CPAP-CPAP about 2 years ago She was advised to try CPAP again at night She is willing to try CPAP again (2) Elevated troponin: Chest pain on admission Troponins mildly elevated at 0.2 range and not showing any significant elevation on serial testing Has chronic EKG changes No evidence of ACS Her troponin is chronically elevated (3) CAD (coronary artery disease), [place] coronary artery: (4) Apical variant hypertrophic cardiomyopathy: Status post ICD placement (5) S/P right coronary artery (RCA) stent placement: Did have chest pain but no ACS Other medical conditions including hypertension, diabetes, chronic kidney d isease, chronic anemia and chronic respiratory failure remained stable DVT prophylaxis We will give subcu heparin (6) Depression with anxiety: She has a history of depression with anxiety She seems to be very depressed with continued comorbid medical conditions Psychiatrist has been consulted Likely discharge tomorrow Admission and Anticipated Discharge Date Admission Date: August 23, 2020 Subjective 08/22/2020 Patient was seen and examined in telemetry unit She has significant cardiomyopathy and was admitted acute on chronic diastolic CHF Has been feeling a lot better since admission Denies any chest pain and/or palpitation 08/23/2020 The patient was seen and examined in telemetry unit She looked very depressed and feels that she has not improved Remains shortness of breath at rest but denies any chest pain and/or palpitation Has had cough with whitish-yellow phlegm without any fever and/or chills 08/24/2020 The patient was seen and examined in telemetry unit She has been feeling a lot better today and denies any shortness of breath at rest Her main complaint is insomnia Review of Systems Review of Systems: All systems reviewed and are unremarkable except as noted below Respiratory: + cough and + dyspnea on exertion; no wheezing Cardiovascular: + edema; no palpitations Neurologic: Chronic insomnia Physical Exam Physical Exam: Sitting at the edge of the bed without any acute distress Constitutional: well developed, well nourished, + ill appearing and + obese; no acute distress Eyes: PERRL, conjunctivae normal, anicteric sclerae ENMT: external ear and nose normal, oropharynx normal Neck: trachea midline, no thyromegaly Respiratory: normal respiratory effort; no respiratory distress Auscultation: lungs clear to auscultation bilaterally Cardiovascular: Rate/Rhythm: regular rate and regular rhythm Heart Sounds: + murmur (2/6 ESM over precordium) Extremities: + edema (1+ pitting edema bilaterally) Gastrointestinal (Abdomen): Inspection/Auscultation: + abdomen distended and normal bowel sounds Percussion/Palpation: abdomen soft; abdomen nontender Musculoskeletal: No acute arthritis in any joints Neurologic: moves all extremities; no focal motor deficits Alert, awake and oriented x3 Psychiatric: A+Ox3, euthymic affect Orientation: alert and oriented x 3 Affect: + depressed affect Mood: + depressed mood Lymphatic: no cervical or axillary lymphadenopathy Results & Data Results & Data ([facility]) Vital Signs (Past 12 Hours) Vital Signs Temp Pulse Resp BP Pulse Ox 08/24/20 15:00 36.5 C 72 20 113/70 99 08/24/20 11:26 36.5 C 72 19 119/71 99 08/24/20 07:00 36.5 C 88 20 127/[address] [facility] 08/24/20 07:06 Sodium 141 Potassium 4.4 Chloride 105 Carbon Dioxide 30 BUN 35 H Creatinine 1.53 H Glucose 167 H Calcium 9.8 Medications Administered Current Inpatient Medications Acetaminophen (Acetaminophen 325 Mg Tab) 650 mg PO Q4H PRN PRN Reason: Pain or Fever Stop: 09/21/20 01:13 Last Admin: 08/23/20 22:06 Dose: 650 mg Documented by: Albuterol (Albuterol Hfa 8 Gm Inhaler) 2 puffs INH Q4H PRN PRN Reason: Wheezing Stop: 09/22/20 16:18 Albuterol (Albuterol 0.083% Nebu Soln 3 Ml Vial) 2.5 mg INH Q4H PRN PRN Reason: Wheezing Stop: 09/22/20 16:18 Aspirin (Aspirin 81 Mg Ectab) 81 mg PO DAILY [facility] Stop: 09/23/20 08:59 Last Admin: 08/24/20 08:36 Dose: 81 mg Documented by: Atorvastatin Calcium (Atorvastatin 40 Mg Tab) 40 mg PO QAM [facility] Stop: 09/23/20 08:59 Last Admin: 08/24/20 08:35 Dose: 40 mg Documented by: Clopidogrel Bisulfate (Clopidogrel Bisulfate 75 Mg Tab) 75 mg PO QAM [facility] Stop: 09/23/20 08:59 Last Admin: 08/24/20 08:35 Dose: 75 mg Documented by: Dextrose (Dextrose 50% 50 Ml Syringe) 25 - 50 ml IV UD PRN; Protocol PRN Reason: Hypoglycemia Protocol Stop: 09/21/20 01:29 Diphenoxylate HCl/Atropine (Diphenoxylate/Atropine 2.5/0.025mg Tab) 1 tab PO QID PRN PRN Reason: Diarrhea Stop: 09/22/20 16:18 Duloxetine HCl (Duloxetine Hcl 60 Mg Cap) 60 mg PO [facility] Stop: 09/23/20 08:59 Last Admin: 08/24/20 08:35 Dose: 60 mg Documented by: Duloxetine HCl (Duloxetine Hcl 30 Mg Cap) 30 mg PO QAM [facility] Stop: 09/23/20 08:59 Last Admin: 08/24/20 08:35 Dose: 30 mg Documented by: Fluticasone/Vilanterol (Fluticasone/Vilanterol 200/25mcg 14 Puffs/Inhaler) 1 p uffs INH DAILY [facility]; Protocol Stop: 09/23/20 08:59 Last Admin: 08/24/20 08:36 Dose: 1 puffs Documented by: Folic Acid (Folic Acid 1 Mg Tab) 1 mg PO HS [facility] Stop: 09/22/20 20:59 Last Admin: 08/23/20 22:00 Dose: 1 mg Documented by: Gabapentin (Gabapentin 300 Mg Cap) 300 mg PO TID [facility] Stop: 09/22/20 20:59 Last Admin: 08/24/20 14:24 Dose: 300 mg Documented by: Glucagon (Glucagon For Inj 1 Mg Vial) 1 mg SQ UD PRN; Protocol PRN Reason: Hypoglycemia Protocol Stop: 09/21/20 01:29 Glucose (Glucose 40% Gel 15 Gm Tube) 15 - 30 gm PO UD PRN; Protocol PRN Reason: Hypoglycemia Protocol Stop: 09/21/20 01:29 Glucose (Glucose 10 Tabs/Tube) 4 - 8 tabs PO UD PRN; Protocol PRN Reason: Hypoglycemia Protocol Stop: 09/21/20 01:29 Heparin Sodium (Porcine) (Heparin Sod 5,000 Unit/0.5 Ml Vial) 5,000 units SQ Q12 [facility] Stop: 09/21/20 20:59 Last Admin: 08/24/20 08:37 Dose: 5,000 units Documented by: Insulin Aspart (Insulin Aspart 100 Units/Ml 3 Ml Pen) 0 units SC ACHS [facility] Stop: 09/21/20 07:29 Last Admin: 08/24/20 17:07 Dose: 5 units Documented by: Insulin Glargine (Insulin Glargine Solostar 100 Units/Ml 3 Ml Pen) 10 units SC BID [facility] Stop: 09/21/20 08:59 Last Admin: 08/24/20 08:37 Dose: 10 units Documented by: Isosorbide Mononitrate (Isosorbide [place] Extended Rel 30 Mg Tabcr) 30 mg PO QAM [facility] Stop: 09/23/20 08:59 Last Admin: 08/24/20 08:35 Dose: 30 mg Documented by: Lactobacillus Acidophilus (Lactobacillus Acidophilus (Floranex) Tab) 1 tab PO TID [facility] Stop: 09/22/20 20:59 Last Admin: 08/24/20 14:24 Dose: 1 tab Documented by: Metoprolol Succinate (Metoprolol Succ 50mg Ext Rel Tab) 100 mg PO BID [facility] Stop: 09/22/20 20:59 Last Admin: 08/24/20 08:35 Dose: 100 mg Documented by: Mirtazapine (Mirtazapine Soltab 15 Mg) 45 mg PO HS [facility] Stop: 09/22/20 20:59 Last Admin: 08/23/20 22:00 Dose: 45 mg Documented by: Miscellaneous (Carbohydrates For Hypoglycemia ) 15 - 30 gm PO UD PRN PRN Reason: Hypoglycemia Treatment Stop: 09/21/20 01:29 Nitroglycerin (Nitroglycerin Sl 0.4 Mg/Tab Tab) 0.4 mg SL UD PRN PRN Reason: Chest Pain Stop: 09/21/20 01:13 Ondansetron HCl (Ondansetron Inj 2 Mg/Ml 2 Ml Vial) 4 mg IV Q6H PRN PRN Reason: Nausea Stop: 09/21/20 01:13 Pantoprazole Sodium (Pantoprazole 40 Mg Tab) 40 mg PO BID [facility] Stop: 09/22/20 20:59 Last Admin: 08/24/20 08:35 Dose: 40 mg Documented by: Polyethylene Glycol (Polyethylene (Miralax) 17 Gm Pack) 17 gm PO DAILY PRN PRN Reason: Constipation Stop: 09/21/20 01:13 Ropinirole HCl (Ropinirole Hcl 0.25 Mg Tablet) 0.5 mg PO HS [facility] Stop: 09/22/20 20:59 Last Admin: 08/23/20 22:01 Dose: 0.5 mg Documented by: Spironolactone (Spironolactone 25 Mg Tab) 25 mg PO QAM [facility] Stop: 09/21/20 11:44 Last Admin: 08/24/20 08:36 Dose: 25 mg Documented by: Sumatriptan Succinate (Sumatriptan Succinate 50 Mg Tab) 50 mg PO UD PRN PRN Reason: Migraine Headache Stop: 09/22/20 16:24 Torsemide (Torsemide 10 Mg Tab) 10 mg PO Q2D [facility] Stop: 09/24/20 07:59 Torsemide (Torsemide 10 Mg Tab) 20 mg PO Q2D [facility] Stop: 09/25/20 07:59 Verapamil HCl (Verapamil Hcl 40 Mg Tab) 40 mg PO QID [facility] Stop: 09/22/20 16:59 Last Admin: 08/24/20 17:05 Dose: 40 mg Documented by: (1) CAD (coronary artery disease), [place] coronary artery [place] vs. transplanted heart: [place] heart Associated angina: with unstable angina Qualified Code(s): I25.110 - Atherosclerotic heart disease of [place] coronary artery with unstable angina pectoris
[2020-08-24] MEDS: rOPINIRole HCL 0.25 MG TABLET PO SCH (20:08)
[2020-08-24] MEDS: MIRTAZAPINE SOLTAB 15 MG PO SCH (20:08)
[2020-08-24] MEDS: FOLIC ACID 1 MG TAB PO SCH (20:10)
[2020-08-25] MEDS ORDERED: TORSEMIDE 10 MG TAB PO SCH (08:00)
[2020-08-25] MEDS: INSULIN GLARGINE SOLOSTAR 100 UNITS/ML 3 ML PEN SC SCH (08:26)
[2020-08-25] MEDS: INSULIN ASPART 100 UNITS/ML 3 ML PEN SC SCH ×2 (08:27→12:02)
[2020-08-25] MEDS: HEPARIN SOD 5,000 UNIT/0.5 ML VIAL SQ SCH (08:32)
[2020-08-25] MEDS: FLUTICASONE/VILANTEROL 200/25MCG 14 PUFFS/INHALER INH SCH (08:32)
[2020-08-25] MEDS: GABAPENTIN 300 MG CAP PO SCH ×2 (08:33→14:42)
[2020-08-25] MEDS: LACTOBACILLUS ACIDOPHILUS (FLORANEX) TAB PO SCH ×2 (08:33→13:54)
[2020-08-25] MEDS: SPIRONOLACTONE 25 MG TAB PO SCH (08:33)
[2020-08-25] MEDS: DULoxetine HCL 30 MG CAP PO SCH (08:34)
[2020-08-25] MEDS: METOPROLOL SUCC 50MG EXT REL TAB PO SCH (08:34)
[2020-08-25] MEDS: VERAPAMIL HCL 40 MG TAB PO SCH ×2 (08:35→12:34)
[2020-08-25] MEDS: ISOSORBIDE MONO EXTENDED REL 30 MG TABCR PO SCH (08:35)
[2020-08-25] MEDS: ASPIRIN 81 MG ECTAB PO SCH (08:36)
[2020-08-25] MEDS: PANTOprazole 40 MG TAB PO SCH (08:36)
[2020-08-25] MEDS: DULoxetine HCL 60 MG CAP PO SCH (08:36)
[2020-08-25] MEDS: CLOPIDOGREL BISULFATE 75 MG TAB PO SCH (08:36)
[2020-08-25] MEDS: ATORVASTATIN 40 MG TAB PO SCH (08:37)
[2020-08-25 09:09] LABS: BUN Creatinine Ratio 23.8 (10-20); Calcium 9.7 mg/dl (8.5-10.1); Creatinine Clr Calc Pharmacy 29.2 ml/min; Est GFR (African American) 35.5; Est GFR (Non-African American) 30.7; Potassium 4.2 mmol/L (3.5-5.1)
--- NOTE | 2020-08-25 09:39 | Hospitalist Progress Note ---
Date of Service August 25, 2020 Assessment & Plan (1) Diastolic CHF, acute on chronic: Presented with shortness of breath and chest pain Did have increasing edema and chest x-ray did show mild congestion Has been getting intravenous Lasix and condition has been improving Patient had cardiology input and recommendation Has been diuresing well, down more than 6kg Had cough with whitish-yellow phlegm likely secondary to congestion Has been feeling lot better today Now on oral torsemide, per cardiology 10 mg q2d and 20 mg q2d Plan for BMP within 1 week Plan for cardiology follow up Sleep apnea - has history of severe sleep apnea and may be the cause for her chronic insomnia Has history of sleep apnea and intolerable to CPAP-CPAP about 2 years ago She was advised to try CPAP again at night She is willing to try CPAP again (2) Elevated troponin: Chest pain on admission Troponins mildly elevated at 0.2 range and not showing any significant elevation on serial testing Has chronic EKG changes No evidence of ACS Her troponin is chronically elevated (3) CAD (coronary artery disease), [place] coronary artery: (4) Apical variant hypertrophic cardiomyopathy: Status post ICD placement (5) S/P right coronary artery (RCA) stent placement: Did have chest pain but no ACS Other medical conditions including hypertension, diabetes, chronic kidney disease, chronic anemia and chronic respiratory failure remained stable DVT prophylaxis: subcu heparin (6) Depression with anxiety: She has a history of depression with anxiety She seems to be very depressed with continued comorbid medical conditions Psychiatrist has been consulted while inpt Admission and Anticipated Discharge Date Admission Date: August 23, 2020 Subjective Pt is sitting up in chair in NAD. Denies any dyspnea or chest pain. LE edema resolved. Review of Systems Review of Systems: All systems reviewed & are unremarkable except as noted in HPI & below Constitutional: no fever and no chills Respiratory: no dyspnea Cardiovascular: no chest pain, no palpitations and no edema Gastrointestinal: no abdominal pain, no nausea and no vomiting Physical Exam Physical Exam: Physical Exam: Obese female sitting up in the chair without any acute distress, on suppl. O2 via [place] Constitutional: well developed, well nourished, + obese; no acute distress Eyes: PERRL, EOMI, conjunctivae normal, anicteric sclerae ENMT: external ear and nose normal, oropharynx normal Neck: trachea midline, no thyromegaly Respiratory: normal respiratory effort; no respiratory distress Auscultation: lungs clear to auscultation bilaterally, no wheezing, rhonchi, crackles noted Cardiovascular: Rate/Rhythm: regular rate and regular rhythm Heart Sounds: + murmur (2/6 ESM over precordium) Extremities: no LE edema Gastrointestinal (Abdomen): Inspection/Auscultation: + abdomen mildly distended and normal bowel sounds Percussion/Palpation: abdomen soft; abdomen nontender, obese Musculoskeletal: No acute arthritis in any joints, moves extremities spontaneously Neurologic: moves all extremities; no focal motor deficits Alert, awake and oriented x3 Psychiatric: A+Ox3, euthymic affect Orientation: alert and oriented x 3 Results & Data Results & Data ([facility]) Vital Signs (Past 12 Hours) Vital Signs Temp Pulse Pulse Resp BP Pulse Ox 08/25/20 07:01 36.6 C 80 19 104/68 99 08/25/20 03:52 36.8 C 79 19 141/66 H 100 08/24/20 23:48 36.6 C 80 19 121/73 98 08/24/20 23:00 74 Laboratory Results 08/25/20 08/25/20 08/24/20 Range/Units 07:31 07:22 19:58 Sodium 138 (136-145) mmol/L Potassium 4.2 (3.5-5.1) mmol/L Chloride 105 (98-107) mmol/L Carbon Dioxide 26 (21-32) mmol/L Anion Gap 7.0 (3-11) BUN 42 H (7-18) mg/dl Creatinine 1.75 H (0.6-1.2) mg/dl Est Cr Clr Drug Dosing 29.2 ml/min Est GFR ( Amer) 35.5 Est GFR (Non-Af Amer) 30.7 BUN/Creatinine Ratio 23.8 H (10-20) Glucose 152 H (70-99) mg/dl POC Glucose 166 H 187 H (70-99) mg/dl Calcium 9.7 (8.5-10.1) mg/dl 08/24/20 08/24/20 Range/Units 16:33 11:23 Sodium (136-145) mmol/L Potassium (3.5-5.1) mmol/L Chloride (98-107) mmol/L Carbon Dioxide (21-32) mmol/L Anion Gap (3-11) BUN (7-18) mg/dl Creatinine (0.6-1.2) mg/dl Est Cr Clr Drug Dosing ml/min Est GFR ( Amer) Est GFR (Non-Af Amer) BUN/Creatinine Ratio (10-20) Glucose (70-99) mg/dl POC Glucose 104 H 293 H (70-99) mg/dl Calcium (8.5-10.1) mg/dl Medications Administered Current Inpatient Medications Acetaminophen (Acetaminophen 325 Mg Tab) 650 mg PO Q4H PRN PRN Reason: Pain or Fever Stop: 09/21/20 01:13 Last Admin: 08/23/20 22:06 Dose: 650 mg Documented by: Albuterol (Albuterol Hfa 8 Gm Inhaler) 2 puffs INH Q4H PRN PRN Reason: Wheezing Stop: 09/22/20 16:18 Albuterol (Albuterol 0.083% Nebu Soln 3 Ml Vial) 2.5 mg INH Q4H PRN PRN Reason: Wheezing Stop: 09/22/20 16:18 Aspirin (Aspirin 81 Mg Ectab) 81 mg PO DAILY [facility] Stop: 09/23/20 08:59 Last Admin: 08/25/20 08:36 Dose: 81 mg Documented by: Atorvastatin Calcium (Atorvastatin 40 Mg Tab) 40 mg PO [facility] Stop: 09/23/20 08:59 Last Admin: 08/25/20 08:37 Dose: 40 mg Documented by: Clopidogrel Bisulfate (Clopidogrel Bisulfate 75 Mg Tab) 75 mg PO [facility] Stop: 09/23/20 08:59 Last Admin: 08/25/20 08:36 Dose: 75 mg Documented by: Dextrose (Dextrose 50% 50 Ml Syringe) 25 - 50 ml IV UD PRN; Protocol PRN Reason: Hypoglycemia Protocol Stop: 09/21/20 01:29 Diphenoxylate HCl/Atropine (Diphenoxylate/Atropine 2.5/0.025mg Tab) 1 tab PO QID PRN PRN Reason: Diarrhea Stop: 09/22/20 16:18 Duloxetine HCl (Duloxetine Hcl 60 Mg Cap) 60 mg PO [facility] Stop: 09/23/20 08:59 Last Admin: 08/25/20 08:36 Dose: 60 mg Documented by: Duloxetine HCl (Duloxetine Hcl 30 Mg Cap) 30 mg PO QAM [facility] Stop: 09/23/20 08:59 Last Admin: 08/25/20 08:34 Dose: 30 mg Documented by: Fluticasone/Vilanterol (Fluticasone/Vilanterol 200/25mcg 14 Puffs/Inhaler) 1 puffs INH DAILY [facility]; Protocol Stop: 09/23/20 08:59 Last Admin: 08/25/20 08:32 Dose: 1 puffs Documented by: Folic Acid (Folic Acid 1 Mg Tab) 1 mg PO HS [facility] Stop: 09/22/20 20:59 Last Admin: 08/24/20 20:10 Dose: 1 mg Documented by: Gabapentin (Gabapentin 300 Mg Cap) 300 mg PO TID [facility] Stop: 09/22/20 20:59 Last Admin: 08/25/20 08:33 Dose: 300 mg Documented by: Glucagon (Glucagon For Inj 1 Mg Vial) 1 mg SQ UD PRN; Protocol PRN Reason: Hypoglycemia Protocol Stop: 09/21/20 01:29 Glucose (Glucose 40% Gel 15 Gm Tube) 15 - 30 gm PO UD PRN; Protocol PRN Reason: Hypoglycemia Protocol Stop: 09/21/20 01:29 Glucose (Glucose 10 Tabs/Tube) 4 - 8 tabs PO UD PRN; Protocol PRN Reason: Hypoglycemia Protocol Stop: 09/21/20 01:29 Heparin Sodium (Porcine) (Heparin Sod 5,000 Unit/0.5 Ml Vial) 5,000 units SQ Q12 [facility] Stop: 09/21/20 20:59 Last Admin: 08/25/20 08:32 Dose: 5,000 units Documented by: Insulin Aspart (Insulin Aspart 100 Units/Ml 3 Ml Pen) 0 units SC ACHS [facility] Stop: 09/21/20 07:29 Last Admin: 08/25/20 08:27 Dose: 7 units Documented by: Insulin Glargine (Insulin Glargine Solostar 100 Units/Ml 3 Ml Pen) 10 units SC BID [facility] Stop: 09/21/20 08:59 Last Admin: 08/25/20 08:26 Dose: 10 units Documented by: Isosorbide Mononitrate (Isosorbide [place] Extended Rel 30 Mg Tabcr) 30 mg PO QAM [facility] Stop: 09/23/20 08:59 Last Admin: 08/25/20 08:35 Dose: 30 mg Documented by: Lactobacillus Acidophilus (Lactobacillus Acidophilus (Floranex) Tab) 1 tab PO TID [facility] Stop: 09/22/20 20:59 Last Admin: 08/25/20 08:33 Dose: 1 tab Documented by: Metoprolol Succinate (Metoprolol Succ 50mg Ext Rel Tab) 100 mg PO BID [facility] Stop: 09/22/20 20:59 Last Admin: 08/25/20 08:34 Dose: 100 mg Documented by: Mirtazapine (Mirtazapine Soltab 15 Mg) 45 mg PO HS [facility] Stop: 09/22/20 20:59 Last Admin: 08/24/20 20:08 Dose: 45 mg Documented by: Miscellaneous (Carbohydrates For Hypoglycemia ) 15 - 30 gm PO UD PRN PRN Reason: Hypoglycemia Treatment Stop: 09/21/20 01:29 Nitroglycerin (Nitroglycerin Sl 0.4 Mg/Tab Tab) 0.4 mg SL UD PRN PRN Reason: Chest Pain Stop: 09/21/20 01:13 Ondansetron HCl (Ondansetron Inj 2 Mg/Ml 2 Ml Vial) 4 mg IV Q6H PRN PRN Reason: Nausea Stop: 09/21/20 01:13 Pantoprazole Sodium (Pantoprazole 40 Mg Tab) 40 mg PO BID [facility] Stop: 09/22/20 20:59 Last Admin: 08/25/20 08:36 Dose: 40 mg Documented by: Polyethylene Glycol (Polyethylene (Miralax) 17 Gm Pack) 17 gm PO DAILY PRN PRN Reason: Constipation Stop: 09/21/20 01:13 Ropinirole HCl (Ropinirole Hcl 0.25 Mg Tablet) 0.5 mg PO HS [facility] Stop: 09/22/20 20:59 Last Admin: 08/24/20 20:08 Dose: 0.5 mg Documented by: Spironolactone (Spironolactone 25 Mg Tab) 25 mg PO QAM [facility] Stop: 09/21/20 11:44 Last Admin: 08/25/20 08:33 Dose: 25 mg Documented by: Sumatriptan Succinate (Sumatriptan Succinate 50 Mg Tab) 50 mg PO UD PRN PRN Reason: Migraine Headache Stop: 09/22/20 16:24 Torsemide (Torsemide 10 Mg Tab) 10 mg PO Q2D [facility] Stop: 09/24/20 07:59 Last Admin: 08/25/20 08:35 Dose: 10 mg Documented by: Torsemide (Torsemide 10 Mg Tab) 20 mg PO Q2D [facility] Stop: 09/25/20 07:59 Verapamil HCl (Verapamil Hcl 40 Mg Tab) 40 mg PO QID [facility] Stop: 09/22/20 16:59 Last Admin: 08/25/20 08:35 Dose: 40 mg Documented by: (1) CAD (coronary artery disease), [place] coronary artery Associated angina: with unstable angina [place] vs. transplanted heart: [place] heart Qualified Code(s): I25.110 - Atherosclerotic heart disease of [place] coronary artery with unstable angina pectoris
--- NOTE | 2020-08-25 13:19 | Discharge Summary ---
Date of Service August 25, 2020 Admission HPI Per Admitting Provider A 60-year-old female with past medical history significant for diabetes, chronic kidney disease stage III, chronic respiratory failure with hypoxia, obstructive sleep apnea, uses oxygen in the nighttime, dyspnea on exertion, type 2 diabetes, history of hypertrophic obstructive cardiomyopathy, family history of sudden cardiac , status post ICD, diastolic heart failure, hypertension, CAD, irritable bowel syndrome, morbid obesity, migraine, depression. The patient was recently in the hospital in July. She was admitted on 07/28/2020 and discharged on 07/30/2020. At that time, she presented with chest pain. She was status post cardiac catheterization and status post drug-eluting stent to the RCA and she is currently on Plavix and aspirin. The patient states she is taking her aspirin and Plavix regularly. Since last 2 days, she is having shortness of breath more on exertion, chest pains radiating to her right arm, moderate in severity, not associated with any activity. She is also having cough. She says he has some low-grade temperature and she is also having some runny nose, sore throat, which prompted her to come to the ER. In the ER currently, she is resting comfortably, hemodynamically stable. She is saturating 96% on 2 liters. She has a white count of 11. Troponin 0.27 She has chronically elevated troponin, but last on discharge was 0.17 . Received a dose of IV Lasix in the ER. In the ER when she went to the bathroom and came back, she was having a lot of shortness of breath, but she is settled now. She has chronic headaches and neck pain. Denies any blurred visions. Chronic earaches. Has some runny nose. Eating okay. No nausea, no vomiting, no abdominal pain. She has diarrhea for last 1 week, but that is nothing new for her. Denies any bloody stools or black stools. Micturating fine. No rash seen. Admission Exam Per Admitting Provider GENERAL: The patient is obese, not in acute distress. VITAL SIGNS: Temperature 36.8, pulse 67, respiratory rate 20, blood pressure 95/56, oxygen 96% on 2 liters. HEENT: Pupils equal, round, reactive to light. NECK: No neck masses seen, supple. CARDIOVASCULAR: S1, S2 heard, regular rate and rhythm, no murmur, no gallop. RESPIRATORY SYSTEM: Normal AP diameter. No accessory muscle use. No wheezing, no crackles. ABDOMEN: Soft, bowel sounds present, nontender. No distention. CENTRAL NERVOUS SYSTEM: Cranial nerves II-XII grossly intact, nonfocal. EXTREMITIES: No edema, no erythema. Principal Diagnosis Diastolic CHF, acute on chronic Discharge Exam Physical Exam: Obese female sitting up in the chair without any acute distress, on suppl. O2 via NC Constitutional: well developed, well nourished, + obese; no acute distress Eyes: PERRL, EOMI, conjunctivae normal, anicteric sclerae ENMT: external ear and nose normal, oropharynx normal Neck: trachea midline, no thyromegaly Respiratory: normal respiratory effort; no respiratory distress Auscultation: lungs clear to auscultation bilaterally, no wheezing, rhonchi, cr ackles noted Cardiovascular: Rate/Rhythm: regular rate and regular rhythm Heart Sounds: + murmur (2/6 ESM over precordium) Extremities: no LE edema Gastrointestinal (Abdomen): Inspection/Auscultation: + abdomen mildly distended and normal bowel sounds Percussion/Palpation: abdomen soft; abdomen nontender, obese Musculoskeletal: No acute arthritis in any joints, moves extremities spontaneously Neurologic: moves all extremities; no focal motor deficits Alert, awake and oriented x3 Psychiatric: A+Ox3, euthymic affect Orientation: alert and oriented x 3 Discharge Data Allergies Allergy/AdvReac Type Severity Reaction Status Date / Time Penicillins Allergy Intermediate Flushing, Verified 08/21/20 23:50 Itchiness Sulfa (Sulfonamide Allergy Intermediate Swelling Verified 08/21/20 23:50 Antibiotics) doxycycline Allergy Unknown Unknown Verified 08/21/20 23:50 adhesive AdvReac Intermediate Blistering Verified 08/21/20 23:50 Consultations 08/21/20 22:22 ED Decision to Admit Stat 08/22/20 01:14 Consult Case Management - Discharge Planning Routine 08/22/20 08:00 Consult Cardiology Routine 08/23/20 11:11 Consult Psychiatry Routine Ordered Studies 08/22/20 01:14 CT chest wo con Urgent IMPRESSION: 1. Cardiomegaly and coronary artery calcifications 2. Subtle septal edema 3. Groundglass attenuation of the lungs with a mosaic distribution. This could indicate air trapping. 4. 5 mm left lower lobe pulmonary nodule 5. Multiple borderline enlarged mediastinal lymph nodes 6. Mild hepatic steatosis Hospital Course (1) Diastolic CHF, acute on chronic: Presented with shortness of breath and chest pain Did have increasing edema and chest x-ray did show mild congestion Has been getting intravenous Lasix and condition has been improving Patient had cardiology input and recommendation Has been diuresing well, down more than 6 kg Had cough with whitish-yellow phlegm likely secondary to congestion Has been feeling lot better today Now on oral torsemide, per cardiology 10 mg q2d and 20 mg q2d, alternating Plan for BMP within 1 week, please have PCP to order at the next follow up appointment Plan for cardiology follow up Sleep apnea - has history of severe sleep apnea and may be the cause for her chronic insomnia Has history of sleep apnea and intolerable to CPAP-CPAP about 2 years ago She was advised to try CPAP again at night She is willing to try CPAP again Pulmonary nodule - found on CT chest - outpt follow up (2) Elevated troponin: Chest pain on admission Troponins mildly elevated at 0.2 range and not showing any significant elevation on serial testing Has chronic EKG changes No evidence of ACS Her troponin is chronically elevated (3) CAD (coronary artery disease), hoopa coronary artery: (4) Apical variant hypertrophic cardiomyopathy: Status post ICD placement (5) S/P right coronary artery (RCA) stent placement: Did have chest pain but no ACS Other medical conditions including hypertension, diabetes, chronic kidney disease, chronic anemia and chronic respiratory failure remained stable (6) Depression with anxiety: She has a history of depression with anxiety She seems to be very depressed with continued comorbid medical conditions Psychiatrist has been consulted while inpt Total Time Total Time Spent Total Time Spent (In Minutes): 40 Total Time Includes: Examination of the Patient, Discharge Planning, Medication Reconciliation and Communication With Other Providers Discharge Plan Discharge Items Patient Disposition: Home - Self-Care Reason For Visit: SOB/CHEST PAIN Discharge Diagnosis: Diastolic CHF, acute on chronic Activity: Per Instructions section Non-emergency contact: Primary Care Provider and Vice President Of Academic Affairs Call non-emergency contact if: you have any medication questions and your symptoms worsen Follow-up/Referrals: Suad De León DO [Primary Care Provider] - 08/27/20 10:00 am (Date & Time 08/27/2020 10:00 AM Provider Suad De León DO [facility] ) Diet: Low Sodium (2gm) Fluids: 1800ml (7 cups) Add Attending Provider Instructions: Call your Primary Care doctor if any of the following symptoms or problems start or get worse: * Shortness of breath or difficulty breathing * Wake up at night short of breath * Chest pain * Cough * Swelling of your hands, feet, or legs * More fatigued or tired with your normal activity * Palpitations - sudden fast heart beats WEIGHT * Weigh yourself every morning after using the bathroom. * Use the same scale. * Wear the same amount of clothing. * Write your weight down on a chart. * Call your Primary Care doctor if you gain more than 2-3 pounds in 1-2 days. MEDICATIONS * Use this discharge instruction sheet for medication instructions. * Take your medications at the time your doctor ordered. * Do not skip a dose of your medicines. * If you miss a dose of medicine, take it as soon as possible, but DO NOT DOUBLE A DOSE. * Read your medicine information when you get home. * Know all of the side effects of your medicine. If in doubt, ask your pharmacist * Call your Primary Care doctor's office if you have any side effects. * Be sure all of your doctors know what medicine and herbs you take (including cold, flu, and herbal medicine). Take the following with you to your follow-up doctor appointments: * Weight Chart * Medication List * List of questions Do not drink excessive alcohol, beer or wine. Add Customer Operations Representative Provider Instructions: Follow up with your primary care doctor on 08/27, as already scheduled. You will need blood work, BMP, within next several days. Your primary care doctor will order that for you. Please bring this hospital discharge summary with you to your appointment. Make sure to weigh yourself every morning and provide your doctor with these numbers. As discussed, take 10 mg of torsemide every other day and [address] other way (alternate 10 mg and 20 mg). You should take 20 mg tomorrow (08/26) and 10 mg on 08/27. You will need to follow up with cardiology as well, you will be contacted about that appointment. Pending Studies at Discharge: No Stand-Alone Forms: [employer], Smoking Cessation Medications and DC Order Prescriptions: New torsemide 10 mg Tablet 20 mg PO Q2D Qty: 10 RF: 0 Continued duloxetine 60 mg Capsule,Delayed Release(Dr/Ec) 60 mg PO QAM RF: 0 folic acid 1 mg Tablet 1 mg PO HS RF: 0 sumatriptan succinate 25 mg Tablet 50 mg PO DIRECTED PRN (Reason: Migraine Headache) RF: 0 gabapentin 300 mg capsule 300 mg PO TID RF: 0 albuterol sulfate [Ventolin HFA] 90 mcg/actuation Hfa Aerosol Inhaler 2 puff INHALATION Q4H PRN (Reason: Wheezing) RF: 0 ondansetron 4 mg tablet,disintegrating 4 mg translingual Q8H PRN (Reason: Nausea) RF: 0 duloxetine 30 mg capsule,delayed release(DR/EC) 30 mg PO QAM RF: 0 nitroglycerin [Nitrostat] 0.4 mg tablet, sublingual 0.4 mg sublingual DIRECTED PRN (Reason: Chest Pain) RF: 0 fluticasone propion-salmeterol [Advair Diskus] 500-50 mcg/dose Blister With Device 1 inh INHALATION BID RF: 0 spironolactone [Aldactone] 25 mg Tablet 25 mg PO QAM RF: 0 metoprolol succinate 100 mg tablet extended release 24 hr 100 mg PO BID RF: 0 mirtazapine 45 mg Tablet 45 mg PO HS RF: 0 ropinirole 0.5 mg Tablet 0.5 mg PO HS RF: 0 atorvastatin [Lipitor] 40 mg tablet 40 mg PO QAM RF: 0 isosorbide mononitrate 30 mg Tablet Extended Release 24 Hr 30 mg PO QAM RF: 0 pantoprazole 40 mg Tablet,Delayed Release (Dr/Ec) 40 mg PO BID RF: 0 aspirin 81 mg Tablet,Chewable 81 mg PO DAILY RF: 0 Januvia 100 mg Tablet 100 mg PO DAILY RF: 0 Lactobacillus acidoph-L.bulgar [Floranex] 1 million cell Tablet 1 tab PO TID RF: 0 clopidogrel 75 mg Tablet 75 mg PO QAM Qty: 30 RF: 2 metformin [Glucophage] 500 mg Tablet 500 mg PO BIDM Qty: 0 RF: 0 albuterol sulfate 2.5 mg /3 mL (0.083 %) solution for nebulization 3 ml Inhalation Q4H PRN (Reason: Wheezing) RF: 0 diphenoxylate-atropine [Lomotil] 2.5-0.025 mg Tablet 1 tab PO QID PRN (Reason: Diarrhea) RF: 0 verapamil 40 mg tablet 40 mg PO QID RF: 0 torsemide 10 mg Tablet 10 mg PO QAM RF: 0 budesonide 0.5 mg/2 mL suspension for nebulization 0.5 mg inhalation Q12 RF: 0 insulin asp prt-insulin aspart [Novolog Mix 70-30FlexPen U-100] 100 unit/mL (70-30) insulin pen 55 unit SUBCUT DAILYBB RF: 0 insulin asp prt-insulin aspart [Novolog Mix 70-30FlexPen U-100] 100 unit/mL (70-30) insulin pen 25 unit SUBCUT DAILYBD RF: 0 Discharge Orders: Discharge Order (Routine); Ordered 08/25/20 Ordered By: Matt Mallory Admission Data Admit Date/Time: 08/23/20 17:36 Attending Provider: Matt Mallory Admit Provider: Mikey Mayberry Primary Care Provider: Suad De León Other Providers: Mikey Mayberry ; Luther Verdugo ; Hammad Sandhu ; Sb Bruno ; Abdirahman Giles ; Brennan Grant ; Fredis Carlisle ; Sheryl Cabrera ; Francine Jackson ; Woody Corley ; Ela Musa ; Mariana Emmanuel
[2020-08-26] MEDS ORDERED: TORSEMIDE 10 MG TAB PO SCH (08:00)
== END 2020-08-25 15:42 | disposition home or self-care (01) | DRG 291 ==
LOC: ED 20:14 → 2S 20:14 → SUATTDRO 08-23 17:36

== ENCOUNTER 2020-09-27 12:24 | Inpatient (IN) ==
[2020-09-27] MEDS ORDERED: DEXAMETHASONE SOD INJ 10 MG/ML VIAL IV ONE (12:57)
[2020-09-27] MEDS ORDERED: IPRATROPIUM BROMIDE/ALBUTEROL respimat INH INH STA (12:57)
[2020-09-27] MEDS ORDERED: guaiFENesin 600 MG TABCR PO STA (13:00)
[2020-09-27 13:34] LABS: Basophils # (auto) 0.01 K/uL (0-0.2); Basophils % (auto) 0.1 %; Eosinophils % (auto) 0.9 %; Hematocrit (blood only) 34.3 % (37-47); Hemoglobin 10.4 g/dL (12.0-16.0); Immature Granulocytes # (auto) 0.03 K/uL (0.00-0.02); Immature Granulocytes % (auto) 0.3 %; Lymphocytes # (auto) 0.57 K/uL (1.2-3.4); Mean Corpuscular Hemoglobin 26.6 pg (25-34); Mean Corpuscular Hgb Conc 30.3 g/dL (32-36); Mean Corpuscular Volume 87.7 fL (80-100); Mean Platelet Volume 8.8 fL (7.4-10.4); Monocytes # (auto) 0.51 K/uL (0.11-0.59); Monocytes % (auto) 4.5 %; Neutrophils # (auto) 10.11 K/uL (1.4-6.5); Neutrophils % (auto) 89.2 %; Platelet Count 224 K/uL (130-400); RDW Coefficient of Variation 18.3 % (11.5-14.5); RDW Standard Deviation 56.9 fL (36.4-46.3); Red Blood Count 3.91 M/uL (4.2-5.4); White Blood Count 11.33 K/uL (4.8-10.8)
--- NOTE | 2020-09-27 13:35 | Emergency Department Note ---
Impression & Plan Acute bronchitis due to Rhinovirus, Elevated troponin, CHF (congestive heart failure), COPD exacerbation ED Provider Note NAME: AUGUSTO GUZMAN AGE: 60 SEX: F ARRIVES VIA: Ambulance INFORMANT: Patient, ED PROVIDER(S): Doug Andrade MD CHIEF COMPLAINT: Shortness of breath PLAN: Disposition: Admit MEDICAL DECISION MAKING: The patient is a pleasant 60-year-old woman with a past medical history of CHF/cardiomyopathy, COPD, hypertension, hyperlipidemia, CADENCE who presents emerged department from her PCPs office for continued and worsening shortness of breath with feverishness in the setting being seen in emergency department last week for shortness of breath considered to be related to CHF and mild overload treated with IV diuresis but the patient reports no improvement and now feeling feverish. Patient reports her daughter had flulike symptoms and was recently in contact with a friend of hers who was diagnosed with COVID-19. Her daughter has since tested negative because she was having an elective procedure performed. She does feel as though she has gained water weight and feels bloated. On arrival the patient is mildly dyspneic but no acute distress, afebrile with stable vital signs. She has diminished breath sounds with scant underlying wheeze. EKG without evidence of acute ischemia. CXR with congestive failure. WBC, 11.3, nonspecific. Platelets wnl. H/H similar to prior. VBG without significant CO2 retention. Chemistry without acidosis. Cr. 1.3 similar to prior. Lactate wnl. LFTs and electrolytes unremarkable. Troponin 0.192 similar to prior chronic elevations. BNP 4100 approximate to recent values. UA without convincing infection. Procalcitonin < 0.05, making superimposed bacterial infection less likely at this time. Bio-Fire positive for Rhinovirus and otherwise negative including negative for Covid19. Treatment initiated with steroids, guafenesin, and albuterol for COPD component and Lasix for CHF component to symptoms. Given patient's worsening respiratory symptoms will failed outpatient management in the setting of rhinovirus, reasonable to admit for further management. Patient is agreeable. Case was discussed with Dr. Ramirez, [facility] hospitalist, who will evaluate the patient for admission. Triage Nursing notes reviewed and agree them. Prior medical records reviewed Vital Signs: reviewed and remarkable for no significant abnormalities Differential diagnosis: Reactive airway disease, pneumonia, pneumothorax, COPD, CHF, infections, cardiac ischemia, pulmonary embolism, musculoskeletal, gastrointestinal, as well as other pathologies. ER treatment provided: See below. Diagnostics interpreted by me: ECG: NSR, 70 bpm, no ectopy, LVH with repolarization abnormality, no overt ST elevation. Similar to 09/22/2020 Cardiac Monitoring: An order for continuous cardiac monitoring was placed and demonstrated NSR, 70 bpm, no ectopy Laboratory studies: See below Imaging studies: SINGLE VIEW CHEST CLINICAL HISTORY: Sepsis. FINDINGS: An AP, portable, upright chest radiograph is compared to study dated 09/22/2020 and correlated with chest CT dated 08/22/2020. The examination is degraded by portable technique and patient rotation. A 2-lead cardiac AICD is unchanged in position. The cardiomediastinal heart is enlarged. There is pulmonary vascular congestion. Atelectasis is noted at the lung bases. No airspace consolidation is seen typical for pneumonia and there is no large pleural effusion. No pneumothorax is seen. The skeletal structures are osteop enic. The bony thorax is grossly intact. IMPRESSION: Cardiomegaly and AICD with evidence of congestive failure. Consultation(s): Case was discussed with Dr. Ramirez, [facility] hospitalist, who will evaluate the patient for admission. HPI: The patient is a pleasant 60-year-old woman with a past medical history of CHF/cardiomyopathy, COPD, hypertension, hyperlipidemia, CADENCE who presents emerged department from her PCPs office for continued and worsening shortness of breath with feverishness in the setting being seen in emergency department last week for shortness of breath considered to be related to CHF and mild overload treated with IV diuresis but the patient reports no improvement and now feeling feverish. Patient reports her daughter had flulike symptoms and was recently in contact with a friend of hers who was diagnosed with COVID-19. Her daughter has since tested negative because she was having an elective procedure performed. She does feel as though she has gained water weight and feels bloated. ROS: See above HPI for pertinent positives & negatives. A total of 10 systems reviewed and were otherwise negative. PAST MEDICAL HISTORY:See Below PAST SURGICAL HISTORY:See Below FAMILY HISTORY:See Below SOCIAL HISTORY:See Below HOME MEDICATIONS:See Below ALLERGIES:See Below VITALS:See Below PHYSICAL EXAMINATION: GENERAL: Awake, alert, Mildly dyspneic-appearing, in no distress HENT: Normocephalic, atraumatic. Oropharynx with dry mucous membranes and otherwise unremarkable. EYES: Normal conjunctiva. Sclera non-icteric. NECK: Supple. No nuchal rigidity. FROM. No JVD. RESPIRATORY: Diminished breath sounds with scant underlying wheeze. Mild WOB. CARDIAC: Regular rate, normal rhythm. Extremities warm and well perfused. Pulses equal. ABDOMEN: Soft, non-distended. No tenderness to palpation. No rebound or guarding. No masses. RECTAL: Deferred. MUSCULOSKELETAL: Chest examination reveals no tenderness. The back is symmetrical on inspection without obvious abnormality. There is no CVA tenderness to palpation. No joint edema. LOWER EXTREMITIES: Calves are equal size bilaterally and non-tender. No edema. No discoloration. NEURO: Normal sensorium. No sensory or motor deficits noted. SKIN: No rash or jaundice noted. Doug Andrade MD Past Med/Surg History Medical History Anxiety Arthritis Asthma Cardiac defibrillator in place 2014 CHF (congestive heart failure) CKD (chronic kidney disease), stage III COPD (chronic obstructive pulmonary disease) Depression Depression with anxiety Diabetes mellitus, type 2 Elevated troponin Elevated troponin Fatty (change of) liver, not elsewhere classified GERD (gastroesophageal reflux disease) HLD (hyperlipidemia) Hydronephrosis of right kidney Hypertension Hypertrophic cardiomyopathy CADENCE (obstructive sleep apnea) on nocturnal O2 2L Pancreatic cyst Restless leg syndrome Surgical History H/O section 1979 & 1982 H/O hernia repair 2016 History of appendectomy 1970s History of colostomy reversal bowel perf 2013 with colostomy reversed in 2014 Status post internal cardiac defibrillator procedure "2014" Status post partial resection of colon "diverticulitis 11/05/14" Family History Other Hypertrophic cardiomyopathy Stomach cancer Thyroid disorder Social History Smoking Status: Never smoker Second Hand Exposure: No; Hx Alcohol Use: No Hx Substance Use: No Preferred Language: Togolese Communication Ability: Effective Pole Shaver Required: No Beliefs That Will Affect Care: Evangelical Evangelical Beliefs: Voodoo marital status: Current Living Situation: Spouse 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 Other Information That Helps Us Care for You: No Feels Safe at Home: Yes Safety Concerns: Feels Safe At This Time Assistive Devices: None Allergies Allergies Allergy/AdvReac Type Severity Reaction Status Date / Time Penicillins Allergy Intermediate Flushing, Verified 08/21/20 23:50 Itchiness Sulfa (Sulfonamide Allergy Intermediate Swelling Verified 08/21/20 23:50 Antibiotics) doxycycline Allergy Unknown Unknown Verified 08/21/20 23:50 adhesive AdvReac Intermediate Blistering Verified 08/21/20 23:50 Home Meds Home Medications Medication Instructions Recorded Confirmed duloxetine 60 mg PO QAM 08/09/18 08/21/20 folic acid 1 mg PO HS 08/09/18 08/21/20 sumatriptan succinate 50 mg PO DIRECTED PRN 08/09/18 08/21/20 albuterol sulfate 3 ml INHALATION Q4H PRN 09/09/18 08/21/20 diphenoxylate-atropine [Lomotil] 1 tab PO QID PRN 12/19/18 08/21/20 albuterol sulfate [Ventolin HFA] 2 puff INHALATION Q4H PRN 06/30/19 08/21/20 duloxetine 30 mg PO QAM 06/30/19 08/21/20 fluticasone propion-salmeterol 1 inh INHALATION BID 06/30/19 08/21/20 [Advair Diskus] gabapentin 300 mg PO TID 06/30/19 08/21/20 nitroglycerin [Nitrostat] 0.4 mg SUBLINGUAL DIRECTED PRN 06/30/19 08/21/20 ondansetron 4 mg TRANSLINGUAL Q8H PRN 06/30/19 08/21/20 spironolactone [Aldactone] 25 mg PO QAM 06/30/19 08/21/20 metoprolol succinate 100 mg PO BID 09/25/19 08/21/20 mirtazapine 45 mg PO HS 09/25/19 08/21/20 ropinirole 0.5 mg PO HS 09/25/19 08/21/20 budesonide 0.5 mg INHALATION Q12 01/13/20 08/21/20 torsemide 10 mg PO QAM 01/13/20 08/21/20 verapamil 40 mg PO QID 01/13/20 08/21/20 atorvastatin [Lipitor] 40 mg PO QAM 04/30/20 08/21/20 insulin asp prt-insulin aspart 25 unit SUBCUT DAILYBD 07/07/20 08/21/20 [Novolog Mix 70-30FlexPen U-100] insulin asp prt-insulin aspart 55 unit SUBCUT DAILYBB 07/07/20 08/21/20 [Novolog Mix 70-30FlexPen U-100] Januvia 100 mg PO DAILY 07/28/20 08/21/20 Lactobacillus acidoph-L.bulgar 1 tab PO TID 07/28/20 08/21/20 [Floranex] aspirin 81 mg PO DAILY 07/28/20 08/21/20 isosorbide mononitrate 30 mg PO QAM 07/28/20 08/21/20 pantoprazole 40 mg PO BID 07/28/20 08/21/20 Previous Rx's Medication Instructions Recorded clopidogrel 75 mg PO QAM #30 tab 07/30/20 metformin [Glucophage] 500 mg PO BIDM #0 tab 07/30/20 torsemide 20 mg PO Q2D #10 tab 08/25/20 Results & Data (ED) Vital Signs Vital Signs - 24 hr 09/27/20 12:31 09/27/20 12:36 09/27/20 12:39 Temperature 36.9 C Temperature Source Oral Pulse Rate 75 75 Pulse Rate from SpO2 Sensor 75 Respiratory Rate 25 H 20 Respiratory Effort / Characteristics Non-Labored Spontaneous Respiratory Depth Normal Respiratory Pattern Regular Blood Pressure 123/67 123/67 Blood Pressure Mean 94 85 Pulse Oximetry 98 97 Oxygen Delivery Method Nasal Cannula Nasal Cannula Oxygen Flow Rate 2 2 Fraction of Inspired Oxygen 99 Sepsis Recent Fever Within 48 Hours No Sepsis New/Unexplained Change in Mental Status No Sepsis Action Taken by Nursing No Action Required 09/27/20 12:41 09/27/20 12:47 09/27/20 13:00 Temperature Temperature Source Pulse Rate 77 73 Pulse Rate from SpO2 Sensor 77 73 Respiratory Rate 17 19 Respiratory Effort / Characteristics Respiratory Depth Respiratory Pattern Blood Pressure 126/70 Blood Pressure Mean 91 Pulse Oximetry 97 100 Oxygen Delivery Method Nasal Cannula Oxygen Flow Rate 2 Fraction of Inspired Oxygen Sepsis Recent Fever Within 48 Hours Sepsis New/Unexplained Change in Mental Status Sepsis Action Taken by Nursing 09/27/20 13:30 09/27/20 14:00 09/27/20 14:30 Temperature Temperature Source Pulse Rate 73 73 72 Pulse Rate from SpO2 Sensor 73 Respiratory Rate 22 22 19 Respiratory Effort / Characteristics Respiratory Depth Respiratory Pattern Blood Pressure 135/65 Blood Pressure Mean 80 Pulse Oximetry 100 Oxygen Delivery Method Oxygen Flow Rate Fraction of Inspired Oxygen Sepsis Recent Fever Within 48 Hours Sepsis New/Unexplained Change in Mental Status Sepsis Action Taken by Nursing 09/27/20 14:58 09/27/20 15:00 09/27/20 15:30 Temperature Temperature Source Pulse Rate 71 71 70 Pulse Rate from SpO2 Sensor 72 71 69 Respiratory Rate 25 H 19 Respiratory Effort / Characteristics Respiratory Depth Respiratory Pattern Blood Pressure 131/59 L 134/75 139/66 Blood Pressure Mean 63 111 73 Pulse Oximetry 100 100 98 Oxygen Delivery Method Oxygen Flow Rate Fraction of Inspired Oxygen Sepsis Recent Fever Within 48 Hours Sepsis New/Unexplained Change in Mental Status Sepsis Action Taken by Nursing 09/27/20 16:00 09/27/20 16:30 09/27/20 16:31 Temperature Temperature Source Pulse Rate 71 72 73 Pulse Rate from SpO2 Sensor 72 73 73 Respiratory Rate 24 24 26 H Respiratory Effort / Characteristics Respiratory Depth Respiratory Pattern Blood Pressure 124/79 110/62 Blood Pressure Mean 98 78 Pulse Oximetry 99 100 99 Oxygen Delivery Method Oxygen Flow Rate Fraction of Inspired Oxygen Sepsis Recent Fever Within 48 Hours Sepsis New/Unexplained Change in Mental Status Sepsis Action Taken by Nursing 09/27/20 16:32 09/27/20 17:00 09/27/20 17:08 Temperature Temperature Source Pulse Rate 76 88 76 Pulse Rate from SpO2 Sensor 84 77 Respiratory Rate 18 23 19 Respiratory Effort / Characteristics Respiratory Depth Respiratory Pattern Blood Pressure 149/71 H Blood Pressure Mean 94 Pulse Oximetry 100 Oxygen Delivery Method Nasal Cannula Oxygen Flow Rate 2 Fraction of Inspired Oxygen Sepsis Recent Fever Within 48 Hours Sepsis New/Unexplained Change in Mental Status Sepsis Action Taken by Nursing Laboratory Data Attestation: I reviewed the patient's lab results. Result diagrams: 09/27/20 13:25 09/27/20 13:25 Lab Results 09/27/20 09/27/20 09/27/20 Range/Units 13:25 13:25 13:25 WBC 11.33 H (4.8-10.8) K/uL RBC 3.91 L (4.2-5.4) M/uL Hgb 10.4 L (12.0-16.0) g/dL Hct 34.3 L (37-47) % MCV 87.7 (80-100) fL MCH 26.6 (25-34) pg MCHC 30.3 L (32-36) g/dL RDW Std Deviation 56.9 H (36.4-46.3) fL RDW Coeff of Rolan 18.3 H (11.5-14.5) % Plt Count 224 (130-400) K/uL MPV 8.8 (7.4-10.4) fL Immature Gran % (Auto) 0.3 % Neut % (Auto) 89.2 % Lymph % (Auto) 5.0 % [place] % (Auto) 4.5 % Eos % (Auto) 0.9 % Baso % (Auto) 0.1 % Neut # (Auto) 10.11 H (1.4-6.5) K/uL Lymph # (Auto) 0.57 L (1.2-3.4) K/uL [place] # (Auto) 0.51 (0.11-0.59) K/uL Eos # (Auto) 0.10 (0-0.5) K/uL Baso # (Auto) 0.01 (0-0.2) K/uL Immature Gran # (Auto) 0.03 H (0.00-0.02) K/uL PT 11.1 (9.0-12.0) Seconds INR 1.1 (0.9-1.1) APTT 20.8 L (21.0-31.0) Seconds PTT Ratio 0.7 VBG pH VBG pCO2 VBG pO2 VBG HCO3 VBG O2 Saturation VBG Base Excess Barometric Pressure Sodium (136-145) mmol/L Potassium (3.5-5.1) mmol/L Chloride (98-107) mmol/L Carbon Dioxide (21-32) mmol/L Anion Gap (3-11) BUN (7-18) mg/dl Creatinine (0.6-1.2) mg/dl Est Cr Clr Drug Dosing ml/min Est GFR ( Amer) Est GFR (Non-Af Amer) BUN/Creatinine Ratio (10-20) Glucose (70-99) mg/dl Lactate (0.4-2.0) mmol/L Calcium (8.5-10.1) mg/dl Phosphorus (2.5-4.9) mg/dl Magnesium (1.8-2.4) mg/dl Total Bilirubin (0.2-1) mg/dl Direct Bilirubin (0-0.2) mg/dl AST (15-37) U/L ALT (12-78) U/L Alkaline Phosphatase (45-117) U/L Troponin I (0-0.045) ng/ml NT-Pro-B Natriuret Pep (0-900) pg/ml Total Protein (6.4-8.2) gm/dl Albumin (3.4-5.0) gm/dl Globulin (2.5-4.0) gm/dl Albumin/Globulin Ratio (0.9-2) Procalcitonin < 0.05 (0-0.5) ng/ml Urine Color Urine Appearance (Clear) Urine pH (4.5-7.5) Ur Specific [place] (1.000-1.030) Urine Protein (Negative) Urine Glucose (UA) (Negative) Urine Ketones (Negative) Urine Blood (Negative) Urine Nitrite (Negative) Urine Bilirubin (Negative) Urine Urobilinogen (Negative) Ur Leukocyte Esterase (Negative) Urine WBC (Auto) (0-5) /hpf Urine RBC (Auto) (0-4) /hpf U Hyaline Cast (Auto) (0-5) /lpf U Epithel Cells (Auto) (0-5) /lpf Urine Bacteria (Auto) (Negative) Adenovirus (PCR) (NotDetected) B. pertussis DNA (PCR) (NotDetected) B.parapertussis DNA PCR (NotDetected) C. pneumoniae DNA (PCR) (NotDetected) Coronavirus OC43 (PCR) (NotDetected) Coronavirus HKU1 (PCR) (NotDetected) Coronavirus 229E (PCR) (NotDetected) COVID-19 PCR (NotDetected) Coronavirus NL63 (PCR) (NotDetected) Human Metapneumovir PCR (NotDetected) Influenza Type A (PCR) (NotDetected) Influenza Type B (PCR) (NotDetected) M. pneumoniae (PCR) (NotDetected) Parainfluenza 1 (PCR) (NotDetected) Parainfluenza 2 (PCR) (NotDetected) Parainfluenza 3 (PCR) (NotDetected) Parainfluenza 4 (PCR) (NotDetected) RSV (PCR) (NotDetected) Entero/Rhino (PCR) (NotDetected) 09/27/20 09/27/20 09/27/20 Range/Units 13:25 13:25 13:25 WBC (4.8-10.8) K/uL RBC (4.2-5.4) M/uL Hgb (12.0-16.0) g/dL Hct (37-47) % MCV (80-100) fL MCH (25-34) pg MCHC (32-36) g/dL RDW Std Deviation (36.4-46.3) fL RDW Coeff of Rolan (11.5-14.5) % Plt Count (130-400) K/uL MPV (7.4-10.4) fL Immature Gran % (Auto) % Neut % (Auto) % Lymph % (Auto) % [place] % (Auto) % Eos % (Auto) % Baso % (Auto) % Neut # (Auto) (1.4-6.5) K/uL Lymph # (Auto) (1.2-3.4) K/uL [place] # (Auto) (0.11-0.59) K/uL Eos # (Auto) (0-0.5) K/uL Baso # (Auto) (0-0.2) K/uL Immature Gran # (Auto) (0.00-0.02) K/uL PT (9.0-12.0) Seconds INR (0.9-1.1) APTT (21.0-31.0) Seconds PTT Ratio VBG pH Cancelled VBG pCO2 Cancelled VBG pO2 Cancelled VBG HCO3 Cancelled VBG O2 Saturation Cancelled VBG Base Excess Cancelled Barometric Pressure Cancelled Sodium 145 (136-145) mmol/L Potassium 3.9 (3.5-5.1) mmol/L Chloride 113 H (98-107) mmol/L Carbon Dioxide 26 (21-32) mmol/L Anion Gap 6.0 (3-11) BUN 35 H (7-18) mg/dl Creatinine 1.37 H (0.6-1.2) mg/dl Est Cr Clr Drug Dosing 39.1 ml/min Est GFR ( Amer) 47.8 Est GFR (Non-Af Amer) 41.2 BUN/Creatinine Ratio 25.5 H (10-20) Glucose 81 (70-99) mg/dl Lactate (0.4-2.0) mmol/L Calcium 8.7 (8.5-10.1) mg/dl Phosphorus 3.1 (2.5-4.9) mg/dl Magnesium 1.9 (1.8-2.4) mg/dl Total Bilirubin 0.4 (0.2-1) mg/dl Direct Bilirubin 0.2 (0-0.2) mg/dl AST 21 (15-37) U/L ALT 27 (12-78) U/L Alkaline Phosphatase 140 H (45-117) U/L Troponin I 0.192 H* (0-0.045) ng/ml NT-Pro-B Natriuret Pep 4138 H (0-900) pg/ml Total Protein 7.4 (6.4-8.2) gm/dl Albumin 3.6 (3.4-5.0) gm/dl Globulin 3.8 (2.5-4.0) gm/dl Albumin/Globulin Ratio 0.9 (0.9-2) Procalcitonin (0-0.5) ng/ml Urine Color Urine Appearance (Clear) Urine pH (4.5-7.5) Ur Specific [place] (1.000-1.030) Urine Protein (Negative) Urine Glucose (UA) (Negative) Urine Ketones (Negative) Urine Blood (Negative) Urine Nitrite (Negative) Urine Bilirubin (Negative) Urine Urobilinogen (Negative) Ur Leukocyte Esterase (Negative) Urine WBC (Auto) (0-5) /hpf Urine RBC (Auto) (0-4) /hpf U Hyaline Cast (Auto) (0-5) /lpf U Epithel Cells (Auto) (0-5) /lpf Urine Bacteria (Auto) (Negative) Adenovirus (PCR) Not Detected (NotDetected) B. pertussis DNA (PCR) Not Detected (NotDetected) B.parapertussis DNA PCR Not Detected (NotDetected) C. pneumoniae DNA (PCR) Not Detected (NotDetected) Coronavirus OC43 (PCR) Not Detected (NotDetected) Coronavirus HKU1 (PCR) Not Detected (NotDetected) Coronavirus 229E (PCR) Not Detected (NotDetected) COVID-19 PCR Not Detected (NotDetected) Coronavirus NL63 (PCR) Not Detected (NotDetected) Human Metapneumovir PCR Not Detected (NotDetected) Influenza Type A (PCR) Not Detected (NotDetected) Influenza Type B (PCR) Not Detected (NotDetected) M. pneumoniae (PCR) Not Detected (NotDetected) Parainfluenza 1 (PCR) Not Detected (NotDetected) Parainfluenza 2 (PCR) Not Detected (NotDetected) Parainfluenza 3 (PCR) Not Detected (NotDetected) Parainfluenza 4 (PCR) Not Detected (NotDetected) RSV (PCR) Not Detected (NotDetected) Entero/Rhino (PCR) DETECTED A* (NotDetected) 09/27/20 09/27/20 09/27/20 Range/Units 14:25 14:25 17:15 WBC (4.8-10.8) K/uL RBC (4.2-5.4) M/uL Hgb (12.0-16.0) g/dL Hct (37-47) % MCV (80-100) fL MCH (25-34) pg MCHC (32-36) g/dL RDW Std Deviation (36.4-46.3) fL RDW Coeff of Rolan (11.5-14.5) % Plt Count (130-400) K/uL MPV (7.4-10.4) fL Immature Gran % (Auto) % Neut % (Auto) % Lymph % (Auto) % [place] % (Auto) % Eos % (Auto) % Baso % (Auto) % Neut # (Auto) (1.4-6.5) K/uL Lymph # (Auto) (1.2-3.4) K/uL [place] # (Auto) (0.11-0.59) K/uL Eos # (Auto) (0-0.5) K/uL Baso # (Auto) (0-0.2) K/uL Immature Gran # (Auto) (0.00-0.02) K/uL PT (9.0-12.0) Seconds INR (0.9-1.1) APTT (21.0-31.0) Seconds PTT Ratio VBG pH 7.31 L VBG pCO2 53 H VBG pO2 31 VBG HCO3 26 VBG O2 Saturation < 60.0 VBG Base Excess -1.1 Barometric Pressure 741.1 Sodium (136-145) mmol/L Potassium (3.5-5.1) mmol/L Chloride (98-107) mmol/L Carbon Dioxide (21-32) mmol/L Anion Gap (3-11) BUN (7-18) mg/dl Creatinine (0.6-1.2) mg/dl Est Cr Clr Drug Dosing ml/min Est GFR ( Amer) Est GFR (Non-Af Amer) BUN/Creatinine Ratio (10-20) Glucose (70-99) mg/dl Lactate 1.3 (0.4-2.0) mmol/L Calcium (8.5-10.1) mg/dl Phosphorus (2.5-4.9) mg/dl Magnesium (1.8-2.4) mg/dl Total Bilirubin (0.2-1) mg/dl Direct Bilirubin (0-0.2) mg/dl AST (15-37) U/L ALT (12-78) U/L Alkaline Phosphatase (45-117) U/L Troponin I (0-0.045) ng/ml NT-Pro-B Natriuret Pep (0-900) pg/ml Total Protein (6.4-8.2) gm/dl Albumin (3.4-5.0) gm/dl Globulin (2.5-4.0) gm/dl Albumin/Globulin Ratio (0.9-2) Procalcitonin (0-0.5) ng/ml Urine Color Yellow Urine Appearance Clear (Clear) Urine pH 5.0 (4.5-7.5) Ur Specific [place] 1.014 (1.000-1.030) Urine Protein Negative (Negative) Urine Glucose (UA) Negative (Negative) Urine Ketones Negative (Negative) Urine Blood Negative (Negative) Urine Nitrite Negative (Negative) Urine Bilirubin Negative (Negative) Urine Urobilinogen Negative (Negative) Ur Leukocyte Esterase Trace H (Negative) Urine WBC (Auto) 5-10 H (0-5) /hpf Urine RBC (Auto) 0-4 (0-4) /hpf U Hyaline Cast (Auto) 1-5 (0-5) /lpf U Epithel Cells (Auto) >30 H (0-5) /lpf Urine Bacteria (Auto) Negative (Negative) Adenovirus (PCR) (NotDetected) B. pertussis DNA (PCR) (NotDetected) B.parapertussis DNA PCR (NotDetected) C. pneumoniae DNA (PCR) (NotDetected) Coronavirus OC43 (PCR) (NotDetected) Coronavirus HKU1 (PCR) (NotDetected) Coronavirus 229E (PCR) (NotDetected) COVID-19 PCR (NotDetected) Coronavirus NL63 (PCR) (NotDetected) Human Metapneumovir PCR (NotDetected) Influenza Type A (PCR) (NotDetected) Influenza Type B (PCR) (NotDetected) M. pneumoniae (PCR) (NotDetected) Parainfluenza 1 (PCR) (NotDetected) Parainfluenza 2 (PCR) (NotDetected) Parainfluenza 3 (PCR) (NotDetected) Parainfluenza 4 (PCR) (NotDetected) RSV (PCR) (NotDetected) Entero/Rhino (PCR) (NotDetected) Administered Medications Folic Acid (Folic Acid 1 Mg Tab) 1 mg PO HS MARILEE Stop: 10/27/20 20:59 Last Admin: 09/27/20 20:49 Dose: 1 mg Documented by: [id number] Gabapentin (Gabapentin 300 Mg Cap) 300 mg PO TID MARILEE Stop: 10/27/20 20:59 Last Admin: 09/27/20 20:50 Dose: 300 mg Documented by: [id number] Heparin Sodium (Porcine) (Heparin Sod 5,000 Unit/0.5 Ml Vial) 5,000 units SQ Q8 MARILEE Stop: 10/27/20 21:59 Last Admin: 09/27/20 20:50 Dose: 5,000 units Documented by: [id number] Insulin Aspart (Insulin Aspart 100 Units/Ml 3 Ml Pen) 0 units SC ACHS MARILEE Stop: 10/27/20 20:59 Last Admin: 09/27/20 21:13 Dose: 1 units Documented by: [id number] Cosigned by: [id number] Metoprolol Succinate (Metoprolol Succ 50mg Ext Rel Tab) 100 mg PO BID MARILEE Stop: 10/27/20 20:59 Last Admin: 09/27/20 20:49 Dose: 100 mg Documented by: [id number] Mirtazapine (Mirtazapine Soltab 15 Mg) 45 mg PO HS MARILEE Stop: 10/27/20 20:59 Last Admin: 09/27/20 20:49 Dose: 45 mg Documented by: [id number] Pantoprazole Sodium (Pantoprazole 40 Mg Tab) 40 mg PO BID MARILEE Stop: 10/27/20 20:59 Last Admin: 09/27/20 20:50 Dose: 40 mg Documented by: [id number] Ropinirole HCl (Ropinirole Hcl 0.25 Mg Tablet) 0.5 mg PO HS MARILEE Stop: 10/27/20 20:59 Last Admin: 09/27/20 20:49 Dose: 0.5 mg Documented by: [id number] Verapamil HCl (Verapamil Hcl 40 Mg Tab) 40 mg PO QID MARILEE Stop: 10/27/20 20:59 Last Admin: 09/27/20 20:49 Dose: 40 mg Documented by: [id number] Discontinued Medications Albuterol (Ipratropium [place]/Albuterol Respimat Inh) 1 puffs INH NOW STA Stop: 09/27/20 12:58 Last Admin: 09/27/20 13:28 Dose: 1 puffs Documented by: [id number] Dexamethasone (Dexamethasone Sod Inj 10 Mg/Ml Vial) 10 mg IV NOW ONE Stop: 09/27/20 12:58 Last Admin: 09/27/20 15:00 Dose: 10 mg Documented by: [id number] Furosemide (Furosemide 40 Mg/4 Ml Vial) 40 mg IV NOW STA Stop: 09/27/20 15:04 Last Admin: 09/27/20 16:15 Dose: 40 mg Documented by: [id number] Guaifenesin (Guaifenesin 600 Mg Tabcr) 600 mg PO NOW STA Stop: 09/27/20 13:01 Last Admin: 09/27/20 13:28 Dose: 600 mg Documented by: [id number] Discharge Plan Visit Data Chief Complaint: Shortness of Breath/Dyspnea Stated Complaint: SOB/Fever ED Provider: Doug Andrade Discharge Problem: Acute bronchitis due to Rhinovirus, Elevated troponin, CHF (congestive heart failure), COPD exacerbation Patient Disposition: Admitted As Inpatient Discharge Instructions Interventions: ED Discharge Assessment Last Done: 09/27/20 17:48
[2020-09-27 13:48] LABS: INR 1.1 (0.9-1.1); Partial Thromboplastin Ratio 0.7; Partial Thromboplastin Time 20.8 Seconds (21.0-31.0); Prothrombin Time 11.1 Seconds (9.0-12.0)
[2020-09-27 14:03] LABS: Albumin Level 3.6 gm/dl (3.4-5.0); BUN Creatinine Ratio 25.5 (10-20); Bilirubin Direct 0.2 mg/dl (0-0.2); Calcium 8.7 mg/dl (8.5-10.1); Creatinine Clr Calc Pharmacy 39.1 ml/min; Est GFR (African American) 47.8; Est GFR (Non-African American) 41.2; Magnesium 1.9 mg/dl (1.8-2.4); Potassium 3.9 mmol/L (3.5-5.1)
[2020-09-27 14:30] LABS: Adenovirus PCR Not Detected (NotDetected); Bordetella parapertussis PCR Not Detected (NotDetected); Bordetella pertussis PCR Not Detected (NotDetected); Chlamydia pneumoniae PCR Not Detected (NotDetected); Coronavirus 229E PCR Not Detected (NotDetected); Coronavirus CoV-2 (COVID19)PCR Not Detected (NotDetected); Coronavirus HKU1 PCR Not Detected (NotDetected); Coronavirus NL63 PCR Not Detected (NotDetected); Coronavirus OC43PCR Not Detected (NotDetected); Human Metapneumovirus PCR Not Detected (NotDetected); Influenza A PCR Not Detected (NotDetected); Influenza B PCR Not Detected (NotDetected); Mycoplasma pneumoniae PCR Not Detected (NotDetected); Parainfluenza Virus 1 PCR Not Detected (NotDetected); Parainfluenza Virus 2 PCR Not Detected (NotDetected); Parainfluenza Virus 3 PCR Not Detected (NotDetected); Parainfluenza Virus 4 PCR Not Detected (NotDetected); Respiratory Syncytial VirusPCR Not Detected (NotDetected)
[2020-09-27 14:32] LABS: Rhinovirus/Enterovirus PCR DETECTED (NotDetected)
--- NOTE | 2020-09-27 14:37 | Electrocardiogram Report ---
Test Reason : Blood Pressure : / mmHG Vent. Rate : 070 BPM Atrial Rate : 070 BPM P-R Int : 184 ms QRS Dur : 092 ms QT Int : 408 ms P-R-T Axes : 046 -01 111 degrees QTc Int : 440 ms Poor data quality, interpretation may be adversely affected Normal sinus rhythm Left ventricular hypertrophy with repolarization abnormality Abnormal ECG When compared with ECG of 22-SEP-2020 20:23, No significant change was found Confirmed by Saqib Gooden ([id number]) on 09/27/2020 2:37:16 PM Referred By: Suad De León Confirmed By:Saqib Gooden
[2020-09-27 14:42] LABS: Albumin Globulin Ratio 0.9 (0.9-2); Bilirubin,Total 0.4 mg/dl (0.2-1); Globulin 3.8 gm/dl (2.5-4.0); Phosphorus 3.1 mg/dl (2.5-4.9); Total Protein 7.4 gm/dl (6.4-8.2); Troponin I 0.192 ng/ml (0-0.045)
[2020-09-27 14:45] LABS: Base Excess VBG -1.1 mEq/L; HCO3 VBG 26 mmol/L; PCO2 VBG 53 mmHg (38-50); PO2 VBG 31 mmHg; pH VBG 7.31 (7.36-7.41)
[2020-09-27 14:52] LABS: Oxygen Saturation VBG < 60.0 %
--- NOTE | 2020-09-27 15:00 | XRay Report ---
SINGLE VIEW CHEST CLINICAL HISTORY: Sepsis. FINDINGS: An AP, portable, upright chest radiograph is compared to study dated 09/22/2020 and correlat ed with chest CT dated 08/22/2020. The examination is degraded by portable technique and patient rotat ion. A 2-lead cardiac AICD is unchanged in position. The cardiomediastinal heart is enlarged. There i s pulmonary vascular congestion. Atelectasis is noted at the lung bases. No airspace consolidation is seen typical for pneumonia and there is no large pleural effusion. No pneumothorax is seen. The skel etal structures are osteopenic. The bony thorax is grossly intact. IMPRESSION: Cardiomegaly and AICD with evidence of congestive failure. ACT 112: Negative or not required by law. Electronically signed by: Jorge Avila M.D. 09/27/2020 2:59 PM
[2020-09-27] MEDS ORDERED: FUROSEMIDE 40 MG/4 ML VIAL IV STA (15:03)
[2020-09-27 17:42] LABS: Appearance Urine Clear (Clear); Bacteria Urine Automated Negative (Negative); Bilirubin Urine Negative (Negative); Blood Urine Negative (Negative); Color Urine Yellow; Epithelial Cell Urine Auto >30 /lpf (0-5); Glucose Urine UA Negative (Negative); Ketones Urine Negative (Negative); Leukocyte Esterase Urine Trace (Negative); Nitrite Urine Negative (Negative); Protein Urine Negative (Negative); RBC Urine Automated 0-4 /hpf (0-4); Specific Gravity Urine 1.014 (1.000-1.030); Urobilinogen Urine Negative (Negative)
[2020-09-27] MEDS ORDERED: CARBOHYDRATES FOR HYPOGLYCEMIA PO PRN (18:30)
[2020-09-27] MEDS ORDERED: NITROGLYCERIN SL 0.4 MG/TAB TAB SL PRN (18:30)
[2020-09-27] MEDS ORDERED: DEXTROSE 50% 50 ML SYRINGE IV PRN (18:30)
[2020-09-27] MEDS ORDERED: GLUCOSE 40% GEL 15 GM TUBE PO PRN (18:30)
[2020-09-27] MEDS ORDERED: GLUCOSE 10 TABS/TUBE PO PRN (18:30)
[2020-09-27] MEDS ORDERED: GLUCAGON FOR INJ 1 MG VIAL SQ PRN (18:30)
[2020-09-27] MEDS ORDERED: ALBUT/IPRATROP 3MG/0.5MG NEB 3 ML VIAL NEB PRN (18:30)
[2020-09-27] MEDS ORDERED: DIPHENOXYLATE/ATROPINE 2.5/0.025MG TAB PO PRN (18:30)
--- NOTE | 2020-09-27 20:11 | History & Physical Report ---
Date of Service September 27, 2020 Assessment & Plan (1) Diastolic CHF, acute on chronic: Presented on admission with worsening shortness of breath CXR showed cardiomegaly and AICD with evidence of congestive failure. Covid 19 negative and positive rhinovirus on biofire ProBNP on admission 4138 Received Lasix 40mg IV and dexamethasone on admission last ECHO on 08/22 showed LV hypertrophy with cardiomegaly Will consult cardiology Continue lasix 40mg IV daily Monitor BMP while on IV lasix Elevated Troponin Mostly related to CHF exacerbation Troponin on admission 0.192 EKG showed no acute ischemic changes Continue metoprolol , aspirin, statin, clopidogrel stable Positive Rhinovirus Mild wheezing on exam Will put on droplet precaution and isolation Will add guaifenesin Sleep apnea Has history of severe sleep apnea and may be the cause for her chronic insomnia Has history of sleep apnea and intolerable to CPAP-CPAP about 2 years ago CAD (coronary artery disease), [place] coronary artery: S/P right coronary artery (RCA) stent placement: Apical variant hypertrophic cardiomyopathy: Status post ICD placement Continue Plavix and aspirin HTN BP stable Continue outpatient med Diabetes Will hold outpatient DM med (oral and insulin 70/30 ) Will start on lantus and insulin sliding scale Continue monitor BS DVT prophylaxis on subcu heparin CODE STATUS FULL CODE History of Present Illness Chief Complaint: SOB Primary Care Provider: Suad De León DO 60-year-old female with past medical history\\ significant for chronic kidney disease stage III, chronic respiratory failure on oxygen supplement , obstructive sleep apnea, history of hypertrophic obstructive cardiomyopathy, family history of sudden cardiac , status post ICD, diastolic heart failure, hypertension, CAD, irritable bowel syndrome, morbid obesity, migraine, depression present on admission with worsening SOB. Pt said that she has been having SOB since discharge. Pt said that SOB worsening with minimal SOB. Pt said that she gained 3lbs in the last few days. She was in the ER few days ago for the SOB. She said that she has productive cough with yellowish sputum. She said that she has chest discomfort when she cough. Pt said that she seems like she is not urinated much. She said that she takes the torsemide as directed. Pt said that she is scheduled to see Cardiology this week. Denies any fever, palpitation, dizziness. Allergies Allergy/AdvReac Type Severity Reaction Status Date / Time Penicillins Allergy Intermediate Flushing, Verified 08/21/20 23:50 Itchiness Sulfa (Sulfonamide Allergy Intermediate Swelling Verified 08/21/20 23:50 Antibiotics) doxycycline Allergy Unknown Unknown Verified 08/21/20 23:50 adhesive AdvReac Intermediate Blistering Verified 08/21/20 23:50 Home Medications Home Medications Medication Instructions Recorded Confirmed Type duloxetine 60 mg PO QAM 08/09/18 08/21/20 History folic acid 1 mg PO HS 08/09/18 08/21/20 History sumatriptan succinate 50 mg PO DIRECTED PRN 08/09/18 08/21/20 History albuterol sulfate 3 ml INHALATION Q4H PRN 09/09/18 08/21/20 History diphenoxylate-atropine [Lomotil] 1 tab PO QID PRN 12/19/18 08/21/20 History albuterol sulfate [Ventolin HFA] 2 puff INHALATION Q4H PRN 06/30/19 08/21/20 History duloxetine 30 mg PO QAM 06/30/19 08/21/20 History fluticasone propion-salmeterol 1 inh INHALATION BID 06/30/19 08/21/20 History [Advair Diskus] gabapentin 300 mg PO TID 06/30/19 08/21/20 History nitroglycerin [Nitrostat] 0.4 mg SUBLINGUAL DIRECTED PRN 06/30/19 08/21/20 History ondansetron 4 mg TRANSLINGUAL Q8H PRN 06/30/19 08/21/20 History spironolactone [Aldactone] 25 mg PO QAM 06/30/19 08/21/20 History metoprolol succinate 100 mg PO BID 09/25/19 08/21/20 History mirtazapine 45 mg PO HS 09/25/19 08/21/20 History ropinirole 0.5 mg PO HS 09/25/19 08/21/20 History budesonide 0.5 mg INHALATION Q12 01/13/20 08/21/20 History torsemide 10 mg PO QAM 01/13/20 08/21/20 History verapamil 40 mg PO QID 01/13/20 08/21/20 History atorvastatin [Lipitor] 40 mg PO QAM 04/30/20 08/21/20 History insulin asp prt-insulin aspart 25 unit SUBCUT DAILYBD 07/07/20 08/21/20 History [Novolog Mix 70-30FlexPen U-100] insulin asp prt-insulin aspart 55 unit SUBCUT DAILYBB 07/07/20 08/21/20 History [Novolog Mix 70-30FlexPen U-100] Januvia 100 mg PO DAILY 07/28/20 08/21/20 History Lactobacillus acidoph-L.bulgar 1 tab PO TID 07/28/20 08/21/20 History [Floranex] aspirin 81 mg PO DAILY 07/28/20 08/21/20 History isosorbide mononitrate 30 mg PO QAM 07/28/20 08/21/20 History pantoprazole 40 mg PO BID 07/28/20 08/21/20 History clopidogrel 75 mg PO QAM #30 tab 07/30/20 08/21/20 Rx metformin [Glucophage] 500 mg PO BIDM #0 tab 07/30/20 08/21/20 Rx torsemide 20 mg PO Q2D #10 tab 08/25/20 Rx Past Med/Surg History Medical History Anxiety Arthritis Asthma Cardiac defibrillator in place 2014 CHF (congestive heart failure) CKD (chronic kidney disease), stage III COPD (chronic obstructive pulmonary disease) Depression Depression with anxiety Diabetes mellitus, type 2 Elevated troponin Elevated troponin Fatty (change of) liver, not elsewhere classified GERD (gastroesophageal reflux disease) HLD (hyperlipidemia) Hydronephrosis of right kidney Hypertension Hypertrophic cardiomyopathy CADENCE (obstructive sleep apnea) on nocturnal O2 2L Pancreatic cyst Restless leg syndrome Surgical History H/O section 1979 & 1982 H/O hernia repair 2015 History of appendectomy 1970s History of colostomy reversal bowel perf 2013 with colostomy reversed in 2014 Status post internal cardiac defibrillator procedure "2015" Status post partial resection of colon "diverticulitis 11/05/14" Family History Other Hypertrophic cardiomyopathy Stomach cancer Thyroid disorder Social History Smoking Status: Never smoker Second Hand Exposure: No; Hx Alcohol Use: No Hx Substance Use: No Preferred Language: Citizen Of [place] Communication Ability: Effective Print Developer Automatic Required: No Beliefs That Will Affect Care: Worship Worship Beliefs: Tenriism marital status: Current Living Situation: Spouse 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 Other Information That Helps Us Care for You: No Feels Safe at Home: Yes Safety Concerns: Feels Safe At This Time Assistive Devices: None Review of Systems Review of Systems: All systems reviewed & are unremarkable except as noted in HPI & below Physical Exam Physical Exam: General- No acute distress Head- atraumatic Eyes- PERRL, EOMI, ENT- oropharynx clear Neck- supple, no JVD Lungs- +wheezing Heart- regular rhythm; +murmur Abdomen- normal bowel sounds, soft, nontender Extremities- no calf tenderness, trace edema Neuro- alert, oriented x 3; PERRL, EOMI; no facial palsy; no dysarthria Skin- warm & dry Results & Data Results & Data ([facility]) Vital Signs (Past 12 Hours) Vital Signs Temp Pulse Resp BP Pulse Ox 09/27/20 17:30 74 18 98 09/27/20 17:08 76 19 149/71 H 100 09/27/20 17:00 88 23 09/27/20 16:32 76 18 09/27/20 16:31 73 26 H 110/62 99 09/27/20 16:30 72 24 100 09/27/20 16:00 71 24 124/79 99 09/27/20 15:30 70 19 139/66 98 09/27/20 15:00 71 25 H 134/75 100 09/27/20 14:58 71 131/59 L 100 09/27/20 14:30 72 19 09/27/20 14:00 73 22 09/27/20 13:30 73 22 135/65 100 09/27/20 13:00 73 19 126/70 100 09/27/20 12:41 77 17 97 09/27/20 12:39 36.9 C 75 20 123/67 97 09/27/20 12:31 75 25 H 123/67 98 Diagnostic Findings SINGLE VIEW CHEST CLINICAL HISTORY: Sepsis. FINDINGS: An AP, portable, upright chest radiograph is compared to study dated 09/22/2020 and correlated with chest CT dated 08/22/2020. The examination is degraded by portable technique and patient rotation. A 2-lead cardiac AICD is unchanged in position. The cardiomediastinal heart is enlarged. There is pulmona ry vascular congestion. Atelectasis is noted at the lung bases. No airspace consolidation is seen typical for pneumonia and there is no large pleural effusion. No pneumothorax is seen. The skeletal structures are osteopenic. The bony thorax is grossly intact. IMPRESSION: Cardiomegaly and AICD with evidence of congestive failure. ACT 112: Negative or not required by law. Electronically signed by: Jorge Avila M.D. 09/27/2020 2:59 PM Dictated: 09/27/20 1458Transcribed: 09/27/20 1458
[2020-09-27] MEDS: rOPINIRole HCL 0.25 MG TABLET PO SCH (20:49)
[2020-09-27] MEDS: VERAPAMIL HCL 40 MG TAB PO SCH (20:49)
[2020-09-27] MEDS: FOLIC ACID 1 MG TAB PO SCH (20:49)
[2020-09-27] MEDS: MIRTAZAPINE SOLTAB 15 MG PO SCH (20:49)
[2020-09-27] MEDS: METOPROLOL SUCC 50MG EXT REL TAB PO SCH (20:49)
[2020-09-27] MEDS: PANTOprazole 40 MG TAB PO SCH (20:50)
[2020-09-27] MEDS: HEPARIN SOD 5,000 UNIT/0.5 ML VIAL SQ SCH (20:50)
[2020-09-27] MEDS: GABAPENTIN 300 MG CAP PO SCH (20:50)
[2020-09-27] MEDS ORDERED: [UNRECOGNIZED DRUG - OTHER] PO SCH (21:00)
[2020-09-27] MEDS ORDERED: LACTOBACILLUS ACIDOPHILUS PO SCH (21:00)
[2020-09-27] MEDS: INSULIN ASPART 100 UNITS/ML 3 ML PEN SC SCH (21:13)
[2020-09-28] MEDS: HEPARIN SOD 5,000 UNIT/0.5 ML VIAL SQ SCH ×3 (06:06→21:49)
[2020-09-28] MEDS: FUROSEMIDE 40 MG in SYRINGE 0 ML IV SCH (08:07)
[2020-09-28] MEDS: METOPROLOL SUCC 50MG EXT REL TAB PO SCH ×2 (08:08→21:50)
[2020-09-28] MEDS: ISOSORBIDE MONO EXTENDED REL 30 MG TABCR PO SCH (08:09)
[2020-09-28] MEDS: ASPIRIN 81 MG ECTAB PO SCH (08:09)
[2020-09-28] MEDS: DULoxetine HCL 60 MG CAP PO SCH (08:09)
[2020-09-28] MEDS: CLOPIDOGREL BISULFATE 75 MG TAB PO SCH (08:09)
[2020-09-28] MEDS: DULoxetine HCL 30 MG CAP PO SCH (08:09)
[2020-09-28] MEDS: predniSONE 20 MG TAB PO SCH (08:09)
[2020-09-28] MEDS: ATORVASTATIN 40 MG TAB PO SCH (08:09)
[2020-09-28] MEDS: VERAPAMIL HCL 40 MG TAB PO SCH ×4 (08:10→21:49)
[2020-09-28] MEDS: FLUTICASONE/VILANTEROL 200/25MCG 14 PUFFS/INHALER INH SCH (08:10)
[2020-09-28] MEDS: PANTOprazole 40 MG TAB PO SCH ×2 (08:10→21:50)
[2020-09-28] MEDS: SPIRONOLACTONE 25 MG TAB PO SCH (08:10)
[2020-09-28] MEDS: GABAPENTIN 300 MG CAP PO SCH ×3 (08:11→21:50)
[2020-09-28] MEDS: INSULIN ASPART 100 UNITS/ML 3 ML PEN SC SCH ×4 (08:11→21:50)
[2020-09-28 08:47] LABS: Hematocrit (blood only) 36.2 % (37-47); Hemoglobin 10.9 g/dL (12.0-16.0); Mean Corpuscular Hemoglobin 26.5 pg (25-34); Mean Corpuscular Hgb Conc 30.1 g/dL (32-36); Mean Corpuscular Volume 87.9 fL (80-100); Platelet Count 237 K/uL (130-400); RDW Standard Deviation 57.4 fL (36.4-46.3); Red Blood Count 4.12 M/uL (4.2-5.4); White Blood Count 10.72 K/uL (4.8-10.8)
[2020-09-28 09:23] LABS: BUN Creatinine Ratio 23.8 (10-20); Calcium 9.1 mg/dl (8.5-10.1); Creatinine Clr Calc Pharmacy 34.8 ml/min; Est GFR (African American) 41.8; Est GFR (Non-African American) 36.1; Potassium 4.2 mmol/L (3.5-5.1)
--- NOTE | 2020-09-28 10:54 | Cardiology Consultation ---
Date of Consultation September 28, 2020 Assessment & Plan (1) Acute bronchitis due to Rhinovirus: (2) Diastolic CHF, acute on chronic: (3) Apical variant hypertrophic cardiomyopathy: (4) S/P right coronary artery (RCA) stent placement: (5) Elevated troponin: The patient does not examine is volume overloaded. She did receive IV Lasix starting last evening so she may have had quick improvement. It could be that most of her symptoms are related to the rhinovirus and a cold. I would co ntinue the IV diuretics through today and reassess her tomorrow. If she continues to improve then she could potentially be discharged to outpatient follow-up in the morning. History of Present Illness Attending Physician: Matt Mallory MD History of Present Illness This is a 60-year-old female with a history of apical hypertrophic nonobstructive cardiomyopathy with chronic grade 4 diastolic dysfunction. She has had several hospital admissions in the past 3 months. In early July she was admitted and received a stent within the right coronary artery. Her last hospital admission was at the end of August due to volume overload. The past few days she has not felt well. She feels like she is retaining fluid however, review of her flow sheets for weight she is about where she has been with each admission. She has tested positive for rhinovirus and may have developed a cold which are contributing to her symptoms. She has chronic elevation of her troponins. Past medical history: 1. Apical Hypertrophic nonobstructive cardiomyopathy, severe with markedly reduced LV cavity size , grade 4 diastolic dysfunction 2. Genetic mutation MBC consistent with cardiomyopathy. 3. Status post prophylactic pacer defibrillatorMedtronic, model - Evera MRI XT [id number] implantation, dual chamber, September 01, 2015. 4. Labile hypertension. 5. Obesity. 6. Obstructive sleep apnea/hypoventilation with poor CPAP tolerance on chronic nocturnal oxygen supplementation 7. Chronic diastolic heart failure right greater than left 8. Chronic anxiety 9. Admitted to the hospital 07/28/20 with unstable angina, found to have an ostial right coronary artery stenosis and received a drug-eluting stent. Allergies Allergy/AdvReac Type Severity Reaction Status Date / Time Penicillins Allergy Intermediate Flushing, Verified 08/21/20 23:50 Itchiness Sulfa (Sulfonamide Allergy Intermediate Swelling Verified 08/21/20 23:50 Antibiotics) doxycycline Allergy Unknown Unknown Verified 08/21/20 23:50 adhesive AdvReac Intermediate Blistering Verified 08/21/20 23:50 Home Medications Home Medications Medication Instructions Recorded Confirmed Type duloxetine 60 mg PO QAM 08/09/18 08/21/20 History folic acid 1 mg PO HS 08/09/18 08/21/20 History sumatriptan succinate 50 mg PO DIRECTED PRN 08/09/18 08/21/20 History albuterol sulfate 3 ml INHALATION Q4H PRN 09/09/18 08/21/20 History diphenoxylate-atropine [Lomotil] 1 tab PO QID PRN 12/19/18 08/21/20 History albuterol sulfate [Ventolin HFA] 2 puff INHALATION Q4H PRN 06/30/19 08/21/20 History duloxetine 30 mg PO QAM 06/30/19 08/21/20 History fluticasone propion-salmeterol 1 inh INHALATION BID 06/30/19 08/21/20 History [Advair Diskus] gabapentin 300 mg PO TID 06/30/19 08/21/20 History nitroglycerin [Nitrostat] 0.4 mg SUBLINGUAL DIRECTED PRN 06/30/19 08/21/20 History ondansetron 4 mg TRANSLINGUAL Q8H PRN 06/30/19 08/21/20 History spironolactone [Aldactone] 25 mg PO QAM 06/30/19 08/21/20 History metoprolol succinate 100 mg PO BID 09/25/19 08/21/20 History mirtazapine 45 mg PO HS 09/25/19 08/21/20 History ropinirole 0.5 mg PO HS 09/25/19 08/21/20 History budesonide 0.5 mg INHALATION Q12 01/13/20 08/21/20 History torsemide 10 mg PO QAM 01/13/20 08/21/20 History verapamil 40 mg PO QID 01/13/20 08/21/20 History atorvastatin [Lipitor] 40 mg PO QAM 04/30/20 08/21/20 History insulin asp prt-insulin aspart 25 unit SUBCUT DAILYBD 07/07/20 08/21/20 History [Novolog Mix 70-30FlexPen U-100] insulin asp prt-insulin aspart 55 unit SUBCUT DAILYBB 07/07/20 08/21/20 History [Novolog Mix 70-30FlexPen U-100] Januvia 100 mg PO DAILY 07/28/20 08/21/20 History Lactobacillus acidoph-L.bulgar 1 tab PO TID 07/28/20 08/21/20 History [Floranex] aspirin 81 mg PO DAILY 07/28/20 08/21/20 History isosorbide mononitrate 30 mg PO QAM 07/28/20 08/21/20 History pantoprazole 40 mg PO BID 07/28/20 08/21/20 History clopidogrel 75 mg PO QAM #30 tab 07/30/20 08/21/20 Rx metformin [Glucophage] 500 mg PO BIDM #0 tab 07/30/20 08/21/20 Rx torsemide 20 mg PO Q2D #10 tab 08/25/20 Rx Patient History Medical History Anxiety Arthritis Asthma Cardiac defibrillator in place 2014 CHF (congestive heart failure) CKD (chronic kidney disease), stage III COPD (chronic obstructive pulmonary disease) Depression Depression with anxiety Diabetes mellitus, type 2 Elevated troponin Elevated troponin Fatty (change of) liver, not elsewhere classified GERD (gastroesophageal reflux disease) HLD (hyperlipidemia) Hydronephrosis of right kidney Hypertension Hypertrophic cardiomyopathy CADENCE (obstructive sleep apnea) on nocturnal O2 2L Pancreatic cyst Restless leg syndrome Surgical History H/O section 1979 & 1982 H/O hernia repair 2016 History of appendectomy 1970s History of colostomy reversal bowel perf 2013 with colostomy reversed in 2014 Status post internal cardiac defibrillator procedure "2015" Status post partial resection of colon "diverticulitis 11/05/14" Family History Other Hypertrophic cardiomyopathy Stomach cancer Thyroid disorder Social History Smoking Status: Never smoker Second Hand Exposure: No; Hx Alcohol Use: No Hx Substance Use: No Preferred Language: Cymraes Communication Ability: Effective 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 Physical Exam Physical Exam: General: no acute distress and stated age Head: normocephalic, no masses, lesions, tenderness or abnormalities Eyes: conjunctiva are pink and non-injected, sclera clear Neck: supple, no adenopathy, no bruits, normal jugular venous pulse, no hepatojugular reflux Chest: normal shape and normal respiratory effort Lungs: clear to auscultation and percussion Cardiac Exam: - regular rate & rhythm, no murmurs gallops or rubs - normal S1, normal S2 Pulses: 2(+) throughout Abdomen: abdomen soft, non-tender, no abnormal masses and no hepatosplenomegaly Musculoskeletal: no gait disturbance, no joint inflammation, no deforming arthritis Extremities: no edema and no cyanosis Neuro: grossly normal exam Results & Data ([facility]) Vital Signs (Past 12 Hours) Vital Signs Temp Pulse Pulse Resp BP Pulse Ox 09/28/20 07:56 36.5 C 66 18 109/62 99 09/28/20 04:04 36.5 C 96 H 17 123/76 96 09/27/20 23:59 74 09/27/20 23:58 36.4 C L 72 18 143/74 H 94 Laboratory Results Laboratory Results - last 24 hr 09/27/20 09/27/20 09/27/20 13:25 13:25 13:25 WBC 11.33 H RBC 3.91 L Hgb 10.4 L Hct 34.3 L MCV 87.7 MCH 26.6 MCHC 30.3 L RDW Std Deviation 56.9 H RDW Coeff of Rolan 18.3 H Plt Count 224 MPV 8.8 Immature Gran % (Auto) 0.3 Neut % (Auto) 89.2 Lymph % (Auto) 5.0 Runnels % (Auto) 4.5 Eos % (Auto) 0.9 Baso % (Auto) 0.1 Neut # (Auto) 10.11 H Lymph # (Auto) 0.57 L Runnels # (Auto) 0.51 Eos # (Auto) 0.10 Baso # (Auto) 0.01 Immature Gran # (Auto) 0.03 H PT 11.1 INR 1.1 APTT 20.8 L PTT Ratio 0.7 VBG pH VBG pCO2 VBG pO2 VBG HCO3 VBG O2 Saturation VBG Base Excess Barometric Pressure Sodium Potassium Chloride Carbon Dioxide Anion Gap BUN Creatinine Est Cr Clr Drug Dosing Est GFR ( Amer) Est GFR (Non-Af Amer) BUN/Creatinine Ratio Glucose POC Glucose Lactate Calcium Phosphorus Magnesium Total Bilirubin Direct Bilirubin AST ALT Alkaline Phosphatase Troponin I NT-Pro-B Natriuret Pep Total Protein Albumin Globulin Albumin/Globulin Ratio Procalcitonin < 0.05 Urine Color Urine Appearance Urine pH Ur Specific [place] Urine Protein Urine Glucose (UA) Urine Ketones Urine Blood Urine Nitrite Urine Bilirubin Urine Urobilinogen Ur Leukocyte Esterase Urine WBC (Auto) Urine RBC (Auto) U Hyaline Cast (Auto) U Epithel Cells (Auto) Urine Bacteria (Auto) Adenovirus (PCR) B. pertussis DNA (PCR) B.parapertussis DNA PCR C. pneumoniae DNA (PCR) Coronavirus OC43 (PCR) Coronavirus HKU1 (PCR) Coronavirus 229E (PCR) COVID-19 PCR Coronavirus NL63 (PCR) Human Metapneumovir PCR Influenza Type A (PCR) Influenza Type B (PCR) M. pneumoniae (PCR) Parainfluenza 1 (PCR) Parainfluenza 2 (PCR) Parainfluenza 3 (PCR) Parainfluenza 4 (PCR) RSV (PCR) Entero/Rhino (PCR) 09/27/20 09/27/20 09/27/20 13:25 13:25 13:25 WBC RBC Hgb Hct MCV MCH MCHC RDW Std Deviation RDW Coeff of Rolan Plt Count MPV Immature Gran % (Auto) Neut % (Auto) Lymph % (Auto) Runnels % (Auto) Eos % (Auto) Baso % (Auto) Neut # (Auto) Lymph # (Auto) R[place] # (Auto) Eos # (Auto) Baso # (Auto) Immature Gran # (Auto) PT INR APTT PTT Ratio VBG pH Cancelled VBG pCO2 Cancelled VBG pO2 Cancelled VBG HCO3 Cancelled VBG O2 Saturation Cancelled VBG Base Excess Cancelled Barometric Pressure Cancelled Sodium 145 Potassium 3.9 Chloride 113 H Carbon Dioxide 26 Anion Gap 6.0 BUN 35 H Creatinine 1.37 H Est Cr Clr Drug Dosing 39.1 Est GFR ( Amer) 47.8 Est GFR (Non-Af Amer) 41.2 BUN/Creatinine Ratio 25.5 H Glucose 81 POC Glucose Lactate Calcium 8.7 Phosphorus 3.1 Magnesium 1.9 Total Bilirubin 0.4 Direct Bilirubin 0.2 AST 21 ALT 27 Alkaline Phosphatase 140 H Troponin I 0.192 H* NT-Pro-B Natriuret Pep 4138 H Total Protein 7.4 Albumin 3.6 Globulin 3.8 Albumin/Globulin Ratio 0.9 Procalcitonin Urine Color Urine Appearance Urine pH Ur Specific [place] Urine Protein Urine Glucose (UA) Urine Ketones Urine Blood Urine Nitrite Urine Bilirubin Urine Urobilinogen Ur Leukocyte Esterase Urine WBC (Auto) Urine RBC (Auto) U Hyaline Cast (Auto) U Epithel Cells (Auto) Urine Bacteria (Auto) Adenovirus (PCR) Not Detected B. pertussis DNA (PCR) Not Detected B.parapertussis DNA PCR Not Detected C. pneumoniae DNA (PCR) Not Detected Coronavirus OC43 (PCR) Not Detected Coronavirus HKU1 (PCR) Not Detected Coronavirus 229E (PCR) Not Detected COVID-19 PCR Not Detected Coronavirus NL63 (PCR) Not Detected Human Metapneumovir PCR Not Detected Influenza Type A (PCR) Not Detected Influenza Type B (PCR) Not Detected M. pneumoniae (PCR) Not Detected Parainfluenza 1 (PCR) Not Detected Parainfluenza 2 (PCR) Not Detected Parainfluenza 3 (PCR) Not Detected Parainfluenza 4 (PCR) Not Detected RSV (PCR) Not Detected Entero/Rhino (PCR) DETECTED A* 09/27/20 09/27/20 09/27/20 14:25 14:25 17:15 WBC RBC Hgb Hct MCV MCH MCHC RDW Std Deviation RDW Coeff of Rolan Plt Count MPV Immature Gran % (Auto) Neut % (Auto) Lymph % (Auto) R[place]els % (Auto) Eos % (Auto) Baso % (Auto) Neut # (Auto) Lymph # (Auto) R[place]els # (Auto) Eos # (Auto) Baso # (Auto) Immature Gran # (Auto) PT INR APTT PTT Ratio VBG pH 7.31 L VBG pCO2 53 H VBG pO2 31 VBG HCO3 26 VBG O2 Saturation < 60.0 VBG Base Excess -1.1 Barometric Pressure 741.1 Sodium Potassium Chloride Carbon Dioxide Anion Gap BUN Creatinine Est Cr Clr Drug Dosing Est GFR ( Amer) Est GFR (Non-Af Amer) BUN/Creatinine Ratio Glucose POC Glucose Lactate 1.3 Calcium Phosphorus Magnesium Total Bilirubin Direct Bilirubin AST ALT Alkaline Phosphatase Troponin I NT-Pro-B Natriuret Pep Total Protein Albumin Globulin Albumin/Globulin Ratio Procalcitonin Urine Color Yellow Urine Appearance Clear Urine pH 5.0 Ur Specific [place] 1.014 Urine Protein Negative Urine Glucose (UA) Negative Urine Ketones Negative Urine Blood Negative Urine Nitrite Negative Urine Bilirubin Negative Urine Urobilinogen Negative Ur Leukocyte Esterase Trace H Urine WBC (Auto) 5-10 H Urine RBC (Auto) 0-4 U Hyaline Cast (Auto) 1-5 U Epithel Cells (Auto) >30 H Urine Bacteria (Auto) Negative Adenovirus (PCR) B. pertussis DNA (PCR) B.parapertussis DNA PCR C. pneumoniae DNA (PCR) Coronavirus OC43 (PCR) Coronavirus HKU1 (PCR) Coronavirus 229E (PCR) COVID-19 PCR Coronavirus NL63 (PCR) Human Metapneumovir PCR Influenza Type A (PCR) Influenza Type B (PCR) M. pneumoniae (PCR) Parainfluenza 1 (PCR) Parainfluenza 2 (PCR) Parainfluenza 3 (PCR) Parainfluenza 4 (PCR) RSV (PCR) Entero/Rhino (PCR) 09/27/20 09/27/20 09/28/20 20:08 22:33 07:52 WBC RBC Hgb Hct MCV MCH MCHC RDW Std Deviation RDW Coeff of Rolan Plt Count MPV Immature Gran % (Auto) Neut % (Auto) Lymph % (Auto) R[place]els % (Auto) Eos % (Auto) Baso % (Auto) Neut # (Auto) Lymph # (Auto) R[place]els # (Auto) Eos # (Auto) Baso # (Auto) Immature Gran # (Auto) PT INR APTT PTT Ratio VBG pH VBG pCO2 VBG pO2 VBG HCO3 VBG O2 Saturation VBG Base Excess Barometric Pressure Sodium Potassium Chloride Carbon Dioxide Anion Gap BUN Creatinine Est Cr Clr Drug Dosing Est GFR ( Amer) Est GFR (Non-Af Amer) BUN/Creatinine Ratio Glucose POC Glucose 211 H 140 H Lactate Calcium Phosphorus Magnesium Total Bilirubin Direct Bilirubin AST ALT Alkaline Phosphatase Troponin I 0.157 H* NT-Pro-B Natriuret Pep Total Protein Albumin Globulin Albumin/Globulin Ratio Procalcitonin Urine Color Urine Appearance Urine pH Ur Specific [place] Urine Protein Urine Glucose (UA) Urine Ketones Urine Blood Urine Nitrite Urine Bilirubin Urine Urobilinogen Ur Leukocyte Esterase Urine WBC (Auto) Urine RBC (Auto) U Hyaline Cast (Auto) U Epithel Cells (Auto) Urine Bacteria (Auto) Adenovirus (PCR) B. pertussis DNA (PCR) B.parapertussis DNA PCR C. pneumoniae DNA (PCR) Coronavirus OC43 (PCR) Coronavirus HKU1 (PCR) Coronavirus 229E (PCR) COVID-19 PCR Coronavirus NL63 (PCR) Human Metapneumovir PCR Influenza Type A (PCR) Influenza Type B (PCR) M. pneumoniae (PCR) Parainfluenza 1 (PCR) Parainfluenza 2 (PCR) Parainfluenza 3 (PCR) Parainfluenza 4 (PCR) RSV (PCR) Entero/Rhino (PCR) 09/28/20 09/28/20 08:14 08:14 WBC 10.72 RBC 4.12 L Hgb 10.9 L Hct 36.2 L MCV 87.9 MCH 26.5 MCHC 30.1 L RDW Std Deviation 57.4 H RDW Coeff of Rolan 18.0 H Plt Count 237 MPV 9.0 Immature Gran % (Auto) Neut % (Auto) Lymph % (Auto) [place] % (Auto) Eos % (Auto) Baso % (Auto) Neut # (Auto) Lymph # (Auto) [place] # (Auto) Eos # (Auto) Baso # (Auto) Immature Gran # (Auto) PT INR APTT PTT Ratio VBG pH VBG pCO2 VBG pO2 VBG HCO3 VBG O2 Saturation VBG Base Excess Barometric Pressure Sodium 144 Potassium 4.2 Chloride 111 H Carbon Dioxide 26 Anion Gap 6.0 BUN 36 H Creatinine 1.53 H Est Cr Clr Drug Dosing 34.8 Est GFR ( Amer) 41.8 Est GFR (Non-Af Amer) 36.1 BUN/Creatinine Ratio 23.8 H Glucose 123 H POC Glucose Lactate Calcium 9.1 Phosphorus Magnesium Total Bilirubin Direct Bilirubin AST ALT Alkaline Phosphatase Troponin I NT-Pro-B Natriuret Pep Total Protein Albumin Globulin Albumin/Globulin Ratio Procalcitonin Urine Color Urine Appearance Urine pH Ur Specific [place] Urine Protein Urine Glucose (UA) Urine Ketones Urine Blood Urine Nitrite Urine Bilirubin Urine Urobilinogen Ur Leukocyte Esterase Urine WBC (Auto) Urine RBC (Auto) U Hyaline Cast (Auto) U Epithel Cells (Auto) Urine Bacteria (Auto) Adenovirus (PCR) B. pertussis DNA (PCR) B.parapertussis DNA PCR C. pneumoniae DNA (PCR) Coronavirus OC43 (PCR) Coronavirus HKU1 (PCR) Coronavirus 229E (PCR) COVID-19 PCR Coronavirus NL63 (PCR) Human Metapneumovir PCR Influenza Type A (PCR) Influenza Type B (PCR) M. pneumoniae (PCR) Parainfluenza 1 (PCR) Parainfluenza 2 (PCR) Parainfluenza 3 (PCR) Parainfluenza 4 (PCR) RSV (PCR) Entero/Rhino (PCR) Medications Administered Current Inpatient Medications Albuterol (Albut/Ipratrop 3mg/0.5mg Neb 3 Ml Vial) 3 ml NEB Q4R PRN PRN Reason: SOB/Wheezing Stop: 10/27/20 18:29 Aspirin (Aspirin 81 Mg Ectab) 81 mg PO DAILY [facility] Stop: 10/28/20 08:59 Last Admin: 09/28/20 08:09 Dose: 81 mg Documented by: Atorvastatin Calcium (Atorvastatin 40 Mg Tab) 40 mg PO [facility] Stop: 10/28/20 08:59 Last Admin: 09/28/20 08:09 Dose: 40 mg Documented by: Clopidogrel Bisulfate (Clopidogrel Bisulfate 75 Mg Tab) 75 mg PO [facility] Stop: 10/28/20 08:59 Last Admin: 09/28/20 08:09 Dose: 75 mg Documented by: Dextrose (Dextrose 50% 50 Ml Syringe) 25 - 50 ml IV UD PRN; Protocol PRN Reason: Hypoglycemia Protocol Stop: 10/27/20 18:29 Diphenoxylate HCl/Atropine (Diphenoxylate/Atropine 2.5/0.025mg Tab) 1 tab PO QID PRN PRN Reason: Diarrhea Stop: 10/27/20 18:29 Duloxetine HCl (Duloxetine Hcl 60 Mg Cap) [facility] Stop: 10/28/20 08:59 Last Admin: 09/28/20 08:09 Dose: 60 mg Documented by: Duloxetine HCl (Duloxetine Hcl 30 Mg Cap) 30 mg PO QAM [facility] Stop: 10/28/20 08:59 Last Admin: 09/28/20 08:09 Dose: 30 mg Documented by: Fluticasone/Vilanterol (Fluticasone/Vilanterol 200/25mcg 14 Puffs/Inhaler) 1 puffs INH DAILY [facility] Stop: 10/28/20 08:59 Last Admin: 09/28/20 08:10 Dose: 1 puffs Documented by: Folic Acid (Folic Acid 1 Mg Tab) 1 mg PO HS [facility] Stop: 10/27/20 20:59 Last Admin: 09/27/20 20:49 Dose: 1 mg Documented by: Gabapentin (Gabapentin 300 Mg Cap) 300 mg PO TID [facility] Stop: 10/27/20 20:59 Last Admin: 09/28/20 08:11 Dose: 300 mg Documented by: Glucagon (Glucagon For Inj 1 Mg Vial) 1 mg SQ UD PRN; Protocol PRN Reason: Hypoglycemia Protocol Stop: 10/27/20 18:29 Glucose (Glucose 10 Tabs/Tube) 4 - 8 tabs PO UD PRN; Protocol PRN Reason: Hypoglycemia Protocol Stop: 10/27/20 18:29 Glucose (Glucose 40% Gel 15 Gm Tube) 15 - 30 gm PO UD PRN; Protocol PRN Reason: Hypoglycemia Protocol Stop: 10/27/20 18:29 Heparin Sodium (Porcine) (Heparin Sod 5,000 Unit/0.5 Ml Vial) 5,000 units SQ Q8 [facility] Stop: 10/27/20 21:59 Last Admin: 09/28/20 06:06 Dose: Not Given Documented by: Furosemide 40 mg/ Syringe 4 mls @ 4 mls/min IV DAILY [facility] Stop: 10/28/20 08:59 Last Admin: 09/28/20 08:07 Dose: 4 mls/min Documented by: Insulin Aspart (Insulin Aspart 100 Units/Ml 3 Ml Pen) 0 units SC ACHS [facility] Stop: 10/27/20 20:59 Last Admin: 09/28/20 08:11 Dose: 3 units Documented by: Isosorbide Mononitrate (Isosorbide Runnels Extended Rel 30 Mg Tabcr) 30 mg PO QAM [facility] Stop: 10/28/20 08:59 Last Admin: 09/28/20 08:09 Dose: 30 mg Documented by: Metoprolol Succinate (Metoprolol Succ 50mg Ext Rel Tab) 100 mg PO BID [facility] Stop: 10/27/20 20:59 Last Admin: 09/28/20 08:08 Dose: 100 mg Documented by: Mirtazapine (Mirtazapine Soltab 15 Mg) 45 mg PO HS [facility] Stop: 10/27/20 20:59 Last Admin: 09/27/20 20:49 Dose: 45 mg Documented by: Miscellaneous (Carbohydrates For Hypoglycemia ) 15 - 30 gm PO UD PRN PRN Reason: Hypoglycemia Protocol Stop: 10/27/20 18:29 Nitroglycerin (Nitroglycerin Sl 0.4 Mg/Tab Tab) 0.4 mg SL UD PRN PRN Reason: Chest Pain Stop: 10/27/20 18:29 Pantoprazole Sodium (Pantoprazole 40 Mg Tab) 40 mg PO BID [facility] Stop: 10/27/20 20:59 Last Admin: 09/28/20 08:10 Dose: 40 mg Documented by: Prednisone (Prednisone 20 Mg Tab) 20 mg PO DAILY [facility] Stop: 10/28/20 08:59 Last Admin: 09/28/20 08:09 Dose: 20 mg Documented by: Ropinirole HCl (Ropinirole Hcl 0.25 Mg Tablet) 0.5 mg PO HS [facility] Stop: 10/27/20 20:59 Last Admin: 09/27/20 20:49 Dose: 0.5 mg Documented by: Spironolactone (Spironolactone 25 Mg Tab) 25 mg PO QAM [facility] Stop: 10/28/20 08:59 Last Admin: 09/28/20 08:10 Dose: 25 mg Documented by: Verapamil HCl (Verapamil Hcl 40 Mg Tab) 40 mg PO QID [facility] Stop: 10/27/20 20:59 Last Admin: 09/28/20 08:10 Dose: 40 mg Documented by:
[2020-09-28] MEDS: rOPINIRole HCL 0.25 MG TABLET PO SCH (21:49)
[2020-09-28] MEDS: MIRTAZAPINE SOLTAB 15 MG PO SCH (21:49)
[2020-09-28] MEDS: FOLIC ACID 1 MG TAB PO SCH (21:50)
--- NOTE | 2020-09-29 01:34 | Hospitalist Progress Note ---
Date of Service September 29, 2020 Assessment & Plan (1) Diastolic CHF, acute on chronic: Presented on admission with worsening shortness of breath CXR showed cardiomegaly and AICD with evidence of congestive failure. Covid 19 negative and positive rhinovirus on biofire ProBNP on admission 4138 Received Lasix 40mg IV and dexamethasone on admission last ECHO on 08/22 showed LV hypertrophy with cardiomegaly Will consult cardiology Continue lasix 40mg IV daily, pt responded well -reassess need for IV lasix in the morning Monitor BMP Elevated Troponin Mostly related to CHF exacerbation Troponin on admission 0.192 EKG showed no acute ischemic changes Continue metoprolol , aspirin, statin, clopidogrel stable Positive Rhinovirus Mild wheezing on exam droplet precaution and isolation guaifenesin Sleep apnea Has history of severe sleep apnea and may be the cause for her chronic insomnia Has history of sleep apnea and intolerable to CPAP-CPAP about 2 years ago CAD (coronary artery disease), [place] coronary artery: S/P right coronary artery (RCA) stent placement: Apical variant hypertrophic cardiomyopathy: Status post ICD placement Continue Plavix and aspirin HTN BP stable Continue outpatient med Diabetes Will hold outpatient DM med (oral and insulin 70/30 ) Will start on lantus and insulin sliding scale Continue monitor BS DVT prophylaxis on subcu heparin CODE STATUS FULL CODE Admission and Anticipated Discharge Date Admission Date: September 27, 2020 Subjective Pt is sitting up in the chair in NAD. Using 2L of suppl. O2 which is her baseline. States she does not feel well yet, reports her whole family has been feeling sick and were tested for covid but they were not tested for rhinovirus. Currently she is able to speak in full sentences, is in no resp. distress, appears comfortable. Review of Systems Review of Systems: All systems reviewed & are unremarkable except as noted in HPI & below Constitutional: no fever and no chills Respiratory: + cough and + dyspnea Cardiovascular: no chest pain, no palpitations and no edema Gastrointestinal: no abdominal pain, no nausea and no vomiting Physical Exam Physical Exam: General- female pt sitting up in the chair, in no acute distress, using 2L of suppl. O2 Head- normocephalic, atraumatic Eyes- PERRL, EOMI, ENT- oropharynx clear Neck- supple, no JVD Lungs- CTAB, + mild wheezing Heart- regular rhythm; +murmur Abdomen- normal bowel sounds, soft, nontender, obese Extremities- no calf tenderness, no LE edema Neuro- alert, oriented x 3; PERRL, EOMI; no facial palsy; no dysarthria, moves extremities spontaneously Skin- warm & dry Results & Data Results & Data ([facility]) Vital Signs (Past 12 Hours) Vital Signs Temp Pulse Pulse Resp BP Pulse Ox 09/28/20 23:58 66 09/28/20 23:36 36.4 C L 72 18 150/72 H 96 09/28/20 20:00 36.8 C 67 18 117/65 96 09/28/20 16:01 36.8 C 69 19 105/66 96 Laboratory Results 09/28/20 09/28/20 09/28/20 Range/Units 20:29 16:34 11:19 WBC (4.8-10.8) K/uL RBC (4.2-5.4) M/uL Hgb (12.0-16.0) g/dL Hct (37-47) % MCV (80-100) fL MCH (25-34) pg MCHC (32-36) g/dL RDW Std Deviation (36.4-46.3) fL RDW Coeff of Rolan (11.5-14.5) % Plt Count (130-400) K/uL MPV (7.4-10.4) fL Sodium (136-145) mmol/L Potassium (3.5-5.1) mmol/L Chloride (98-107) mmol/L Carbon Dioxide (21-32) mmol/L Anion Gap (3-11) BUN (7-18) mg/dl Creatinine (0.6-1.2) mg/dl Est Cr Clr Drug Dosing ml/min Est GFR ( Amer) Est GFR (Non-Af Amer) BUN/Creatinine Ratio (10-20) Glucose (70-99) mg/dl POC Glucose 166 H 201 H 247 H (70-99) mg/dl Calcium (8.5-10.1) mg/dl 09/28/20 09/28/20 09/28/20 Range/Units 08:14 08:14 07:52 WBC 10.72 (4.8-10.8) K/uL RBC 4.12 L (4.2-5.4) M/uL Hgb 10.9 L (12.0-16.0) g/dL Hct 36.2 L (37-47) % MCV 87.9 (80-100) fL MCH 26.5 (25-34) pg MCHC 30.1 L (32-36) g/dL RDW Std Deviation 57.4 H (36.4-46.3) fL RDW Coeff of Rolan 18.0 H (11.5-14.5) % Plt Count 237 (130-400) K/uL MPV 9.0 (7.4-10.4) fL Sodium 144 (136-145) mmol/L Potassium 4.2 (3.5-5.1) mmol/L Chloride 111 H (98-107) mmol/L Carbon Dioxide 26 (21-32) mmol/L Anion Gap 6.0 (3-11) BUN 36 H (7-18) mg/dl Creatinine 1.53 H (0.6-1.2) mg/dl Est Cr Clr Drug Dosing 34.8 ml/min Est GFR ( Amer) 41.8 Est GFR (Non-Af Amer) 36.1 BUN/Creatinine Ratio 23.8 H (10-20) Glucose 123 H (70-99) mg/dl POC Glucose 140 H (70-99) mg/dl Calcium 9.1 (8.5-10.1) mg/dl Medications Administered Current Inpatient Medications Albuterol (Albut/Ipratrop 3mg/0.5mg Neb 3 Ml Vial) 3 ml NEB Q4R PRN PRN Reason: SOB/Wheezing Stop: 10/27/20 18:29 Aspirin (Aspirin 81 Mg Ectab) 81 mg PO DAILY [facility] Stop: 10/28/20 08:59 Last Admin: 09/28/20 08:09 Dose: 81 mg Documented by: Atorvastatin Calcium (Atorvastatin 40 Mg Tab) 40 mg PO QAM [facility] Stop: 10/28/20 08:59 Last Admin: 09/28/20 08:09 Dose: 40 mg Documented by: Clopidogrel Bisulfate (Clopidogrel Bisulfate 75 Mg Tab) 75 mg PO QAM [facility] Stop: 10/28/20 08:59 Last Admin: 09/28/20 08:09 Dose: 75 mg Documented by: Dextrose (Dextrose 50% 50 Ml Syringe) 25 - 50 ml IV UD PRN; Protocol PRN Reason: Hypoglycemia Protocol Stop: 10/27/20 18:29 Diphenoxylate HCl/Atropine (Diphenoxylate/Atropine 2.5/0.025mg Tab) 1 tab PO QID PRN PRN Reason: Diarrhea Stop: 10/27/20 18:29 Duloxetine HCl (Duloxetine Hcl 60 Mg Cap) 60 mg PO QAM [facility] Stop: 10/28/20 08:59 Last Admin: 09/28/20 08:09 Dose: 60 mg Documented by: Duloxetine HCl (Duloxetine Hcl 30 Mg Cap) 30 mg PO QAM [facility] Stop: 10/28/20 08:59 Last Admin: 09/28/20 08:09 Dose: 30 mg Documented by: Fluticasone/Vilanterol (Fluticasone/Vilanterol 200/25mcg 14 Puffs/Inhaler) 1 puffs INH DAILY [facility] Stop: 10/28/20 08:59 Last Admin: 09/28/20 08:10 Dose: 1 puffs Documented by: Folic Acid (Folic Acid 1 Mg Tab) 1 mg PO HS [facility] Stop: 10/27/20 20:59 Last Admin: 09/28/20 21:50 Dose: 1 mg Documented by: Gabapentin (Gabapentin 300 Mg Cap) 300 mg PO TID [facility] Stop: 10/27/20 20:59 Last Admin: 09/28/20 21:50 Dose: 300 mg Documented by: Glucagon (Glucagon For Inj 1 Mg Vial) 1 mg SQ UD PRN; Protocol PRN Reason: Hypoglycemia Protocol Stop: 10/27/20 18:29 Glucose (Glucose 10 Tabs/Tube) 4 - 8 tabs PO UD PRN; Protocol PRN Reason: Hypoglycemia Protocol Stop: 10/27/20 18:29 Glucose (Glucose 40% Gel 15 Gm Tube) 15 - 30 gm PO UD PRN; Protocol PRN Reason: Hypoglycemia Protocol Stop: 10/27/20 18:29 Heparin Sodium (Porcine) (Heparin Sod 5,000 Unit/0.5 Ml Vial) 5,000 units SQ Q8 [facility] Stop: 10/27/20 21:59 Last Admin: 09/28/20 21:49 Dose: 5,000 units Documented by: Furosemide 40 mg/ Syringe 4 mls @ 4 mls/min IV DAILY [facility] Stop: 10/28/20 08:59 Last Admin: 09/28/20 08:07 Dose: 4 mls/min Documented by: Insulin Aspart (Insulin Aspart 100 Units/Ml 3 Ml Pen) 0 units SC ACHS [facility] Stop: 10/27/20 20:59 Last Admin: 09/28/20 21:50 Dose: 1 units Documented by: Isosorbide Mononitrate (Isosorbide [place] Extended Rel 30 Mg Tabcr) 30 mg PO QAM [facility] Stop: 10/28/20 08:59 Last Admin: 09/28/20 08:09 Dose: 30 mg Documented by: Metoprolol Succinate (Metoprolol Succ 50mg Ext Rel Tab) 100 mg PO BID [facility] Stop: 10/27/20 20:59 Last Admin: 09/28/20 21:50 Dose: 100 mg Documented by: Mirtazapine (Mirtazapine Soltab 15 Mg) 45 mg PO HS [facility] Stop: 10/27/20 20:59 Last Admin: 09/28/20 21:49 Dose: 45 mg Documented by: Miscellaneous (Carbohydrates For Hypoglycemia ) 15 - 30 gm PO UD PRN PRN Reason: Hypoglycemia Protocol Stop: 10/27/20 18:29 Nitroglycerin (Nitroglycerin Sl 0.4 Mg/Tab Tab) 0.4 mg SL UD PRN PRN Reason: Chest Pain Stop: 10/27/20 18:29 Pantoprazole Sodium (Pantoprazole 40 Mg Tab) 40 mg PO BID [facility] Stop: 10/27/20 20:59 Last Admin: 09/28/20 21:50 Dose: 40 mg Documented by: Prednisone (Prednisone 20 Mg Tab) 20 mg PO DAILY [facility] Stop: 10/28/20 08:59 Last Admin: 09/28/20 08:09 Dose: 20 mg Documented by: Ropinirole HCl (Ropinirole Hcl 0.25 Mg Tablet) 0.5 mg PO HS [facility] Stop: 10/27/20 20:59 Last Admin: 09/28/20 21:49 Dose: 0.5 mg Documented by: Spironolactone (Spironolactone 25 Mg Tab) 25 mg PO QAM [facility] Stop: 10/28/20 08:59 Last Admin: 09/28/20 08:10 Dose: 25 mg Documented by: Verapamil HCl (Verapamil Hcl 40 Mg Tab) 40 mg PO QID [facility] Stop: 10/27/20 20:59 Last Admin: 09/28/20 21:49 Dose: 40 mg Documented by:
[2020-09-29] MEDS: HEPARIN SOD 5,000 UNIT/0.5 ML VIAL SQ SCH ×3 (05:28→21:11)
[2020-09-29 08:08] LABS: Hemoglobin 10.8 g/dL (12.0-16.0); Mean Corpuscular Hemoglobin 26.5 pg (25-34); Mean Corpuscular Volume 88.2 fL (80-100); Platelet Count 259 K/uL (130-400); RDW Standard Deviation 57.7 fL (36.4-46.3); Red Blood Count 4.08 M/uL (4.2-5.4); White Blood Count 11.67 K/uL (4.8-10.8)
[2020-09-29] MEDS: FUROSEMIDE 40 MG in SYRINGE 0 ML IV SCH (08:29)
[2020-09-29] MEDS: SPIRONOLACTONE 25 MG TAB PO SCH (08:29)
[2020-09-29] MEDS: CLOPIDOGREL BISULFATE 75 MG TAB PO SCH (08:29)
[2020-09-29] MEDS: INSULIN ASPART 100 UNITS/ML 3 ML PEN SC SCH ×4 (08:30→21:08)
[2020-09-29] MEDS: predniSONE 20 MG TAB PO SCH (08:30)
[2020-09-29] MEDS: ATORVASTATIN 40 MG TAB PO SCH (08:30)
[2020-09-29] MEDS: ASPIRIN 81 MG ECTAB PO SCH (08:30)
[2020-09-29] MEDS: DULoxetine HCL 30 MG CAP PO SCH (08:30)
[2020-09-29] MEDS: ISOSORBIDE MONO EXTENDED REL 30 MG TABCR PO SCH (08:31)
[2020-09-29] MEDS: METOPROLOL SUCC 50MG EXT REL TAB PO SCH ×2 (08:31→21:06)
[2020-09-29] MEDS: GABAPENTIN 300 MG CAP PO SCH ×3 (08:32→21:39)
[2020-09-29] MEDS: PANTOprazole 40 MG TAB PO SCH ×2 (08:32→21:04)
[2020-09-29 08:33] LABS: BUN Creatinine Ratio 28.5 (10-20); Calcium 9.2 mg/dl (8.5-10.1); Creatinine Clr Calc Pharmacy 31.9 ml/min; Est GFR (African American) 38.7; Est GFR (Non-African American) 33.4; Magnesium 2.1 mg/dl (1.8-2.4); Potassium 4.3 mmol/L (3.5-5.1)
[2020-09-29] MEDS: VERAPAMIL HCL 40 MG TAB PO SCH ×4 (08:33→21:06)
[2020-09-29] MEDS: DULoxetine HCL 60 MG CAP PO SCH (08:33)
[2020-09-29] MEDS: FLUTICASONE/VILANTEROL 200/25MCG 14 PUFFS/INHALER INH SCH (08:34)
[2020-09-29 08:37] LABS: Phosphorus 3.7 mg/dl (2.5-4.9)
--- NOTE | 2020-09-29 10:29 | Cardiology Progress Note ---
Date of Service September 29, 2020 Assessment & Plan (1) Acute bronchitis due to Rhinovirus: (2) Diastolic CHF, acute on chronic: (3) Apical variant hypertrophic cardiomyopathy: (4) S/P right coronary artery (RCA) stent placement: (5) Elevated troponin: The patient I believe is out of congestive heart failure. I will stop her IV diuretics and restart her home dose of torsemide. I believe that she can be discharged per the hospitalist group. She will need further tapering of steroid s and other treatment for her bronchitis from rhinovirus. Admission and Anticipated Discharge Date Admission Date: September 27, 2020 Subjective The patient is comfortably sitting in the chair. No new cardiac complaints. Review of Systems Review of Systems: All systems reviewed & are unremarkable except as noted in Subjective Physical Exam Physical Exam: General: no acute distress and stated age Head: normocephalic, no masses, lesions, tenderness or abnormalities Eyes: conjunctiva are pink and non-injected, sclera clear Neck: supple, no adenopathy, no bruits, normal jugular venous pulse, no hepatojugular reflux Chest: normal shape and normal respiratory effort Lungs: clear to auscultation and percussion Cardiac Exam: - regular rate & rhythm, no murmurs gallops or rubs - normal S1, normal S2 Pulses: 2(+) throughout Abdomen: abdomen soft, non-tender, no abnormal masses and no hepatosplenomegaly Musculoskeletal: no gait disturbance, no joint inflammation, no deforming arthritis Extremities: no edema and no cyanosis Neuro: grossly normal exam Results & Data ([facility]) Vital Signs (Past 12 Hours) Vital Signs Temp Pulse Pulse Resp BP Pulse Ox 09/29/20 07:06 36.7 C 65 18 135/82 98 09/29/20 03:45 36.4 C L 66 16 119/71 98 09/28/20 23:58 66 09/28/20 23:36 36.4 C L 72 18 150/72 H 96 Laboratory Results Laboratory Results - last 24 hr 09/28/20 09/28/20 09/28/20 11:19 16:34 20:29 WBC RBC Hgb Hct MCV MCH MCHC RDW Std Deviation RDW Coeff of Rolan Plt Count MPV Sodium Potassium Chloride Carbon Dioxide Anion Gap BUN Creatinine Est Cr Clr Drug Dosing Est GFR ( Amer) Est GFR (Non-Af Amer) BUN/Creatinine Ratio Glucose POC Glucose 247 H 201 H 166 H Calcium Phosphorus Magnesium 09/29/20 09/29/20 09/29/20 07:42 07:42 08:06 WBC 11.67 H RBC 4.08 L Hgb 10.8 L Hct 36.0 L MCV 88.2 MCH 26.5 MCHC 30.0 L RDW Std Deviation 57.7 H RDW Coeff of Rolan 18.0 H Plt Count 259 MPV 9.0 Sodium 141 Potassium 4.3 Chloride 110 H Carbon Dioxide 27 Anion Gap 4.0 BUN 47 H Creatinine 1.63 H Est Cr Clr Drug Dosing 31.9 Est GFR ( Amer) 38.7 Est GFR (Non-Af Amer) 33.4 BUN/Creatinine Ratio 28.5 H Glucose 114 H POC Glucose 120 H Calcium 9.2 Phosphorus 3.7 Magnesium 2.1 Medications Administered Current Inpatient Medications Albuterol (Albut/Ipratrop 3mg/0.5mg Neb 3 Ml Vial) 3 ml NEB Q4R PRN PRN Reason: SOB/Wheezing Stop: 10/27/20 18:29 Aspirin (Aspirin 81 Mg Ectab) 81 mg PO DAILY [facility] Stop: 10/28/20 08:59 Last Admin: 09/29/20 08:30 Dose: 81 mg Documented by: Atorvastatin Calcium (Atorvastatin 40 Mg Tab) 40 mg PO [facility] Stop: 10/28/20 08:59 Last Admin: 09/29/20 08:30 Dose: 40 mg Documented by: Clopidogrel Bisulfate (Clopidogrel Bisulfate 75 Mg Tab) 75 mg PO [facility] Stop: 10/28/20 08:59 Last Admin: 09/29/20 08:29 Dose: 75 mg Documented by: Dextrose (Dextrose 50% 50 Ml Syringe) 25 - 50 ml IV UD PRN; Protocol PRN Reason: Hypoglycemia Protocol Stop: 10/27/20 18:29 Diphenoxylate HCl/Atropine (Diphenoxylate/Atropine 2.5/0.025mg Tab) 1 tab PO QID PRN PRN Reason: Diarrhea Stop: 10/27/20 18:29 Duloxetine HCl (Duloxetine Hcl 60 Mg Cap) 60 mg PO [facility] Stop: 10/28/20 08:59 Last Admin: 09/29/20 08:33 Dose: 60 mg Documented by: Duloxetine HCl (Duloxetine Hcl 30 Mg Cap) 30 mg PO [facility] Stop: 10/28/20 08:59 Last Admin: 09/29/20 08:30 Dose: 30 mg Documented by: Fluticasone/Vilanterol (Fluticasone/Vilanterol 200/25mcg 14 Puffs/Inhaler) 1 puffs INH DAILY [facility] Stop: 10/28/20 08:59 Last Admin: 09/29/20 08:34 Dose: 1 puffs Documented by: Folic Acid (Folic Acid 1 Mg Tab) 1 mg PO HS [facility] Stop: 10/27/20 20:59 Last Admin: 09/28/20 21:50 Dose: 1 mg Documented by: Gabapentin (Gabapentin 300 Mg Cap) 300 mg PO TID [facility] Stop: 10/27/20 20:59 Last Admin: 09/29/20 08:32 Dose: 300 mg Documented by: Glucagon (Glucagon For Inj 1 Mg Vial) 1 mg SQ UD PRN; Protocol PRN Reason: Hypoglycemia Protocol Stop: 10/27/20 18:29 Glucose (Glucose 10 Tabs/Tube) 4 - 8 tabs PO UD PRN; Protocol PRN Reason: Hypoglycemia Protocol Stop: 10/27/20 18:29 Glucose (Glucose 40% Gel 15 Gm Tube) 15 - 30 gm PO UD PRN; Protocol PRN Reason: Hypoglycemia Protocol Stop: 10/27/20 18:29 Heparin Sodium (Porcine) (Heparin Sod 5,000 Unit/0.5 Ml Vial) 5,000 units SQ Q8 [facility] Stop: 10/27/20 21:59 Last Admin: 09/29/20 05:28 Dose: Not Given Documented by: Insulin Aspart (Insulin Aspart 100 Units/Ml 3 Ml Pen) 0 units SC ACHS [facility] Stop: 10/27/20 20:59 Last Admin: 09/29/20 08:30 Dose: 2 units Documented by: Isosorbide Mononitrate (Isosorbide [place] Extended Rel 30 Mg Tabcr) 30 mg PO QAM [facility] Stop: 10/28/20 08:59 Last Admin: 09/29/20 08:31 Dose: 30 mg Documented by: Metoprolol Succinate (Metoprolol Succ 50mg Ext Rel Tab) 100 mg PO BID [facility] Stop: 10/27/20 20:59 Last Admin: 09/29/20 08:31 Dose: 100 mg Documented by: Mirtazapine (Mirtazapine Soltab 15 Mg) 45 mg PO HS [facility] Stop: 10/27/20 20:59 Last Admin: 09/28/20 21:49 Dose: 45 mg Documented by: Miscellaneous (Carbohydrates For Hypoglycemia ) 15 - 30 gm PO UD PRN PRN Reason: Hypoglycemia Protocol Stop: 10/27/20 18:29 Nitroglycerin (Nitroglycerin Sl 0.4 Mg/Tab Tab) 0.4 mg SL UD PRN PRN Reason: Chest Pain Stop: 10/27/20 18:29 Pantoprazole Sodium (Pantoprazole 40 Mg Tab) 40 mg PO BID [facility] Stop: 10/27/20 20:59 Last Admin: 09/29/20 08:32 Dose: 40 mg Documented by: Prednisone (Prednisone 20 Mg Tab) 20 mg PO DAILY [facility] Stop: 10/28/20 08:59 Last Admin: 09/29/20 08:30 Dose: 20 mg Documented by: Ropinirole HCl (Ropinirole Hcl 0.25 Mg Tablet) 0.5 mg PO HS [facility] Stop: 10/27/20 20:59 Last Admin: 09/28/20 21:49 Dose: 0.5 mg Documented by: Spironolactone (Spironolactone 25 Mg Tab) 25 mg PO QAM [facility] Stop: 10/28/20 08:59 Last Admin: 09/29/20 08:29 Dose: 25 mg Documented by: Torsemide (Torsemide 10 Mg Tab) 10 mg PO QAM [facility] Stop: 10/30/20 08:59 Verapamil HCl (Verapamil Hcl 40 Mg Tab) 40 mg PO QID [facility] Stop: 10/27/20 20:59 Last Admin: 09/29/20 08:33 Dose: 40 mg Documented by:
--- NOTE | 2020-09-29 16:33 | Hospitalist Progress Note ---
Date of Service September 29, 2020 Assessment & Plan (1) Diastolic CHF, acute on chronic: Presented on admission with worsening shortness of breath CXR showed cardiomegaly and AICD with evidence of congestive failure. ProBNP on admission 4138 Received Lasix 40mg IV and dexamethasone on admission last ECHO on 08/22 showed LV hypertrophy with cardiomegaly Appreciate cardiology input and recommendation-medically stable to be discharged as per manager web Continue current medications As per the patient to medical floor and possible discharge tomorrow Elevated Troponin Mostly related to CHF exacerbation Troponin on admission 0.192 EKG showed no acute ischemic changes Continue metoprolol , aspirin, statin, clopidogrel No ACS Denies any acute cardiac symptoms Negative for Covid 19 and positive rhinovirus on biofire Mild wheezing on exam droplet precaution and isolation gujyotifenesin Does not require any antibiotic and/or antiviral Sleep apnea Has history of severe sleep apnea and may be the cause for her chronic insomnia Has history of sleep apnea and intolerable to CPAP-CPAP about 2 years ago CAD (coronary artery disease), [place] coronary artery: S/P right coronary artery (RCA) stent placement: Apical variant hypertrophic cardiomyopathy: Status post ICD placement Continue Plavix and aspirin HTN BP stable Continue outpatient med Diabetes Will hold outpatient DM med (oral and insulin 70/30 ) Will start on lantus and insulin sliding scale Continue monitor BS DVT prophylaxis on subcu heparin CODE STATUS FULL CODE Admission and Anticipated Discharge Date Admission Date: September 27, 2020 Subjective The patient was seen and examined in telemetry unit She has been complaining of shortness of breath on minimal exertion She does not feel that she is at her baseline Denies any palpitation, chest pain, any nausea and/or vomiting Review of Systems Review of Systems: All systems reviewed and are unremarkable except as noted below Constitutional: + weakness Respiratory: + cough and + dyspnea on exertion Physical Exam Physical Exam: Sitting on a chair with minimal shortness of breath at rest Constitutional: well developed, well nourished and + obese Eyes: PERRL, conjunctivae normal, anicteric sclerae ENMT: external ear and nose normal, oropharynx normal Neck: trachea midline, no thyromegaly Respiratory: + respiratory distress (Minimal distress at rest) Auscultation: + diminished lung sounds and + crackles (Minimal bibasilar crackles) Cardiovascular: Rate/Rhythm: regular rate and regular rhythm Heart Sounds: no murmur Extremities: + edema (Trace edema bilaterally) Gastrointestinal (Abdomen): Inspection/Auscultation: normal bowel sounds; abdomen not distended Percussion/Palpation: abdomen soft; abdomen nontender Neurologic: Alert, awake and oriented x3. Generally weak Psychiatric: A+Ox3, euthymic affect Lymphatic: no cervical or axillary lymphadenopathy Results & Data Results & [facility]) Vital Signs (Past 12 Hours) Vital Signs Temp Pulse Pulse Resp BP Pulse Ox 09/29/20 14:51 36.6 C 68 20 124/68 95 09/29/20 07:06 36.7 C 65 18 135/82 98 Laboratory Results Short CBC 09/29/20 Range/Units 07:42 WBC 11.67 H (4.8-10.8) K/uL Hgb 10.8 L (12.0-16.0) g/dL Hct 36.0 L (37-47) % Plt Count 259 (130-400) K/uL BMP 09/29/20 07:42 Sodium 141 Potassium 4.3 Chloride 110 H Carbon Dioxide 27 BUN 47 H Creatinine 1.63 H Glucose 114 H Calcium 9.2 Medications Administered Current Inpatient Medications Albuterol (Albut/Ipratrop 3mg/0.5mg Neb 3 Ml Vial) 3 ml NEB Q4R PRN PRN Reason: SOB/Wheezing Stop: 10/27/20 18:29 Aspirin (Aspirin 81 Mg Ectab) 81 mg PO DAILY [facility] Stop: 10/28/20 08:59 Last Admin: 09/29/20 08:30 Dose: 81 mg Documented by: Atorvastatin Calcium (Atorvastatin 40 Mg Tab) 40 mg PO QA [facility] Stop: 10/28/20 08:59 Last Admin: 09/29/20 08:30 Dose: 40 mg Documented by: Clopidogrel Bisulfate (Clopidogrel Bisulfate 75 Mg Tab) 75 mg PO QAM [facility] Stop: 10/28/20 08:59 Last Admin: 09/29/20 08:29 Dose: 75 mg Documented by: Dextrose (Dextrose 50% 50 Ml Syringe) 25 - 50 ml IV UD PRN; Protocol PRN Reason: Hypoglycemia Protocol Stop: 10/27/20 18:29 Diphenoxylate HCl/Atropine (Diphenoxylate/Atropine 2.5/0.025mg Tab) 1 tab PO QID PRN PRN Reason: Diarrhea Stop: 10/27/20 18:29 Duloxetine HCl (Duloxetine Hcl 60 Mg Cap) 60 mg PO QAM [facility] Stop: 10/28/20 08:59 Last Admin: 09/29/20 08:33 Dose: 60 mg Documented by: Duloxetine HCl (Duloxetine Hcl 30 Mg Cap) 30 mg PO QAM [facility] Stop: 10/28/20 08:59 Last Admin: 09/29/20 08:30 Dose: 30 mg Documented by: Fluticasone/Vilanterol (Fluticasone/Vilanterol 200/25mcg 14 Puffs/Inhaler) 1 puffs INH DAILY [facility] Stop: 10/28/20 08:59 Last Admin: 09/29/20 08:34 Dose: 1 puffs Documented by: Folic Acid (Folic Acid 1 Mg Tab) 1 mg PO HS [facility] Stop: 10/27/20 20:59 Last Admin: 09/28/20 21:50 Dose: 1 mg Documented by: Gabapentin (Gabapentin 300 Mg Cap) 300 mg PO TID [facility] Stop: 10/27/20 20:59 Last Admin: 09/29/20 12:35 Dose: 300 mg Documented by: Glucagon (Glucagon For Inj 1 Mg Vial) 1 mg SQ UD PRN; Protocol PRN Reason: Hypoglycemia Protocol Stop: 10/27/20 18:29 Glucose (Glucose 10 Tabs/Tube) 4 - 8 tabs PO UD PRN; Protocol PRN Reason: Hypoglycemia Protocol Stop: 10/27/20 18:29 Glucose (Glucose 40% Gel 15 Gm Tube) 15 - 30 gm PO UD PRN; Protocol PRN Reason: Hypoglycemia Protocol Stop: 10/27/20 18:29 Heparin Sodium (Porcine) (Heparin Sod 5,000 Unit/0.5 Ml Vial) 5,000 units SQ Q8 [facility] Stop: 10/27/20 21:59 Last Admin: 09/29/20 12:34 Dose: Not Given Documented by: Insulin Aspart (Insulin Aspart 100 Units/Ml 3 Ml Pen) 0 units SC ACHS [facility] Stop: 10/27/20 20:59 Last Admin: 09/29/20 12:30 Dose: 5 units Documented by: Isosorbide Mononitrate (Isosorbide [place] Extended Rel 30 Mg Tabcr) 30 mg PO QAM [facility] Stop: 10/28/20 08:59 Last Admin: 09/29/20 08:31 Dose: 30 mg Documented by: Metoprolol Succinate (Metoprolol Succ 50mg Ext Rel Tab) 100 mg PO BID [facility] Stop: 10/27/20 20:59 Last Admin: 09/29/20 08:31 Dose: 100 mg Documented by: Mirtazapine (Mirtazapine Soltab 15 Mg) 45 mg PO HS [facility] Stop: 10/27/20 20:59 Last Admin: 09/28/20 21:49 Dose: 45 mg Documented by: Miscellaneous (Carbohydrates For Hypoglycemia ) 15 - 30 gm PO UD PRN PRN Reason: Hypoglycemia Protocol Stop: 10/27/20 18:29 Nitroglycerin (Nitroglycerin Sl 0.4 Mg/Tab Tab) 0.4 mg SL UD PRN PRN Reason: Chest Pain Stop: 10/27/20 18:29 Pantoprazole Sodium (Pantoprazole 40 Mg Tab) 40 mg PO BID [facility] Stop: 10/27/20 20:59 Last Admin: 09/29/20 08:32 Dose: 40 mg Documented by: Prednisone (Prednisone 20 Mg Tab) 20 mg PO DAILY [facility] Stop: 10/28/20 08:59 Last Admin: 09/29/20 08:30 Dose: 20 mg Documented by: Ropinirole HCl (Ropinirole Hcl 0.25 Mg Tablet) 0.5 mg PO HS [facility] Stop: 10/27/20 20:59 Last Admin: 09/28/20 21:49 Dose: 0.5 mg Documented by: Spironolactone (Spironolactone 25 Mg Tab) 25 mg PO QAM [facility] Stop: 10/28/20 08:59 Last Admin: 09/29/20 08:29 Dose: 25 mg Documented by: Torsemide (Torsemide 10 Mg Tab) 10 mg PO QAM [facility] Stop: 10/30/20 08:59 Verapamil HCl (Verapamil Hcl 40 Mg Tab) 40 mg PO QID [facility] Stop: 10/27/20 20:59 Last Admin: 09/29/20 12:31 Dose: 40 mg Documented by:
[2020-09-29] MEDS: MIRTAZAPINE SOLTAB 15 MG PO SCH (21:04)
[2020-09-29] MEDS: rOPINIRole HCL 0.25 MG TABLET PO SCH (21:07)
[2020-09-29] MEDS: FOLIC ACID 1 MG TAB PO SCH (21:07)
[2020-09-30] MEDS: HEPARIN SOD 5,000 UNIT/0.5 ML VIAL SQ SCH ×2 (05:38→13:18)
[2020-09-30] MEDS: CIPROFLOXACIN HCL 0.3% OP SOLN 2.5 ML BTL OP SCH ×4 (05:46→17:29)
[2020-09-30 08:56] LABS: Basophils # (auto) 0.01 K/uL (0-0.2); Basophils % (auto) 0.1 %; Eosinophils # (auto) 0.08 K/uL (0-0.5); Eosinophils % (auto) 0.6 %; Hematocrit (blood only) 37.3 % (37-47); Hemoglobin 11.2 g/dL (12.0-16.0); Immature Granulocytes # (auto) 0.05 K/uL (0.00-0.02); Immature Granulocytes % (auto) 0.4 %; Lymphocytes # (auto) 1.54 K/uL (1.2-3.4); Lymphocytes % (auto) 12.2 %; Mean Corpuscular Hemoglobin 26.7 pg (25-34); Mean Corpuscular Volume 88.8 fL (80-100); Monocytes # (auto) 0.78 K/uL (0.11-0.59); Monocytes % (auto) 6.2 %; Neutrophils # (auto) 10.19 K/uL (1.4-6.5); Neutrophils % (auto) 80.5 %; Platelet Count 293 K/uL (130-400); RDW Standard Deviation 57.5 fL (36.4-46.3); White Blood Count 12.65 K/uL (4.8-10.8)
[2020-09-30] MEDS ORDERED: TORSEMIDE 10 MG TAB PO SCH (09:00)
[2020-09-30] MEDS: SPIRONOLACTONE 25 MG TAB PO SCH (09:18)
[2020-09-30] MEDS: predniSONE 20 MG TAB PO SCH (09:19)
[2020-09-30] MEDS: METOPROLOL SUCC 50MG EXT REL TAB PO SCH (09:19)
[2020-09-30] MEDS: CLOPIDOGREL BISULFATE 75 MG TAB PO SCH (09:19)
[2020-09-30] MEDS: VERAPAMIL HCL 40 MG TAB PO SCH ×3 (09:20→17:29)
[2020-09-30] MEDS: DULoxetine HCL 60 MG CAP PO SCH (09:20)
[2020-09-30] MEDS: DULoxetine HCL 30 MG CAP PO SCH (09:20)
[2020-09-30] MEDS: PANTOprazole 40 MG TAB PO SCH (09:21)
[2020-09-30] MEDS: ISOSORBIDE MONO EXTENDED REL 30 MG TABCR PO SCH (09:21)
[2020-09-30] MEDS: ASPIRIN 81 MG ECTAB PO SCH (09:21)
[2020-09-30] MEDS: ATORVASTATIN 40 MG TAB PO SCH (09:22)
[2020-09-30] MEDS: GABAPENTIN 300 MG CAP PO SCH ×2 (09:22→13:18)
[2020-09-30 09:23] LABS: BUN Creatinine Ratio 28.2 (10-20); Calcium 9.1 mg/dl (8.5-10.1); Creatinine Clr Calc Pharmacy 32.5 ml/min; Est GFR (African American) 39.6; Est GFR (Non-African American) 34.2; Magnesium 2.1 mg/dl (1.8-2.4); Potassium 3.9 mmol/L (3.5-5.1)
[2020-09-30] MEDS: FLUTICASONE/VILANTEROL 200/25MCG 14 PUFFS/INHALER INH SCH (09:23)
[2020-09-30] MEDS: INSULIN ASPART 100 UNITS/ML 3 ML PEN SC SCH ×3 (09:27→18:16)
--- NOTE | 2020-09-30 11:38 | Cardiology Progress Note ---
Date of Service September 30, 2020 Assessment & Plan (1) Acute bronchitis due to Rhinovirus: (2) Diastolic CHF, acute on chronic: (3) Apical variant hypertrophic cardiomyopathy: (4) S/P right coronary artery (RCA) stent placement: (5) Elevated troponin: The patient is ready for discharge and anxious to be home. She had an appointment at our clinic on Sunday when she was in the hospital, I will arrange for her to have a new follow-up scheduled. Admission and Anticipated Discharge Date Admission Date: September 27, 2020 Subjective Patient has no new cardiac complaints. She feels well and wants to return home. Review of Systems Review of Systems: All systems reviewed & are unremarkable except as noted in Subjective Physical Exam Physical Exam: General: no acute distress and stated age Head: normocephalic, no masses, lesions, tenderness or abnormalities Eyes: conjunctiva are pink and non-injected, sclera clear Neck: supple, no adenopathy, no bruits, normal jugular venous pulse, no hepato jugular reflux Chest: normal shape and normal respiratory effort Lungs: clear to auscultation and percussion Cardiac Exam: - regular rate & rhythm, no murmurs gallops or rubs - normal S1, normal S2 Pulses: 2(+) throughout Abdomen: abdomen soft, non-tender, no abnormal masses and no hepatosplenomegaly Musculoskeletal: no gait disturbance, no joint inflammation, no deforming arthritis Extremities: no edema and no cyanosis Neuro: grossly normal exam Results & Data ([facility]) Vital Signs (Past 12 Hours) Vital Signs Temp Pulse Resp BP Pulse Ox 09/30/20 08:25 35.9 C L 63 20 120/61 99 Laboratory Results Laboratory Results - last 24 hr 09/29/20 09/29/20 09/29/20 11:33 17:07 20:49 WBC RBC Hgb Hct MCV MCH MCHC RDW Std Deviation RDW Coeff of Rolan Plt Count MPV Immature Gran % (Auto) Neut % (Auto) Lymph % (Auto) [place] % (Auto) Eos % (Auto) Baso % (Auto) Neut # (Auto) Lymph # (Auto) [place] # (Auto) Eos # (Auto) Baso # (Auto) Immature Gran # (Auto) Sodium Potassium Chloride Carbon Dioxide Anion Gap BUN Creatinine Est Cr Clr Drug Dosing Est GFR ( Amer) Est GFR (Non-Af Amer) BUN/Creatinine Ratio Glucose POC Glucose 190 H 173 H 283 H Calcium Magnesium 09/30/20 09/30/20 09/30/20 08:04 08:04 08:23 WBC 12.65 H RBC 4.20 Hgb 11.2 L Hct 37.3 MCV 88.8 MCH 26.7 MCHC 30.0 L RDW Std Deviation 57.5 H RDW Coeff of Rolan 18.0 H Plt Count 293 MPV 9.0 Immature Gran % (Auto) 0.4 Neut % (Auto) 80.5 Lymph % (Auto) 12.2 [place] % (Auto) 6.2 Eos % (Auto) 0.6 Baso % (Auto) 0.1 Neut # (Auto) 10.19 H Lymph # (Auto) 1.54 [place] # (Auto) 0.78 H Eos # (Auto) 0.08 Baso # (Auto) 0.01 Immature Gran # (Auto) 0.05 H Sodium 141 Potassium 3.9 Chloride 109 H Carbon Dioxide 25 Anion Gap 7.0 BUN 45 H Creatinine 1.60 H Est Cr Clr Drug Dosing 32.5 Est GFR ( Amer) 39.6 Est GFR (Non-Af Amer) 34.2 BUN/Creatinine Ratio 28.2 H Glucose 118 H POC Glucose 130 H Calcium 9.1 Magnesium 2.1 09/30/20 11:18 WBC RBC Hgb Hct MCV MCH MCHC RDW Std Deviation RDW Coeff of Rolan Plt Count MPV Immature Gran % (Auto) Neut % (Auto) Lymph % (Auto) [place] % (Auto) Eos % (Auto) Baso % (Auto) Neut # (Auto) Lymph # (Auto) [place] # (Auto) Eos # (Auto) Baso # (Auto) Immature Gran # (Auto) Sodium Potassium Chloride Carbon Dioxide Anion Gap BUN Creatinine Est Cr Clr Drug Dosing Est GFR ( Amer) Est GFR (Non-Af Amer) BUN/Creatinine Ratio Glucose POC Glucose 248 H Calcium Magnesium Medications Administered Current Inpatient Medications Albuterol (Albut/Ipratrop 3mg/0.5mg Neb 3 Ml Vial) 3 ml NEB Q4R PRN PRN Reason: SOB/Wheezing Stop: 10/27/20 18:29 Aspirin (Aspirin 81 Mg Ectab) 81 mg PO DAILY [facility] Stop: 10/28/20 08:59 Last Admin: 09/30/20 09:21 Dose: 81 mg Documented by: Atorvastatin Calcium (Atorvastatin 40 Mg Tab) 40 mg PO QAM [facility] Stop: 10/28/20 08:59 Last Admin: 09/30/20 09:22 Dose: 40 mg Documented by: Ciprofloxacin (Ciprofloxacin Hcl 0.3% Op Soln 2.5 Ml Btl) 2 drops OP Q4H [facility] Stop: 10/10/20 04:59 Last Admin: 09/30/20 09:24 Dose: 2 drops Documented by: Clopidogrel Bisulfate (Clopidogrel Bisulfate 75 Mg Tab) 75 mg PO QAM [facility] Stop: 10/28/20 08:59 Last Admin: 09/30/20 09:19 Dose: 75 mg Documented by: Dextrose (Dextrose 50% 50 Ml Syringe) 25 - 50 ml IV UD PRN; Protocol PRN Reason: Hypoglycemia Protocol Stop: 10/27/20 18:29 Diphenoxylate HCl/Atropine (Diphenoxylate/Atropine 2.5/0.025mg Tab) 1 tab PO QID PRN PRN Reason: Diarrhea Stop: 10/27/20 18:29 Duloxetine HCl (Duloxetine Hcl 60 Mg Cap) 60 mg PO QAM [facility] Stop: 10/28/20 08:59 Last Admin: 09/30/20 09:20 Dose: 60 mg Documented by: Duloxetine HCl (Duloxetine Hcl 30 Mg Cap) 30 mg PO QAM [facility] Stop: 10/28/20 08:59 Last Admin: 09/30/20 09:20 Dose: 30 mg Documented by: Fluticasone/Vilanterol (Fluticasone/Vilanterol 200/25mcg 14 Puffs/Inhaler) 1 puffs INH DAILY [facility] Stop: 10/28/20 08:59 Last Admin: 09/30/20 09:23 Dose: 1 puffs Documented by: Folic Acid (Folic Acid 1 Mg Tab) 1 mg PO HS [facility] Stop: 10/27/20 20:59 Last Admin: 09/29/20 21:07 Dose: 1 mg Documented by: Gabapentin (Gabapentin 300 Mg Cap) 300 mg PO TID [facility] Stop: 10/27/20 20:59 Last Admin: 09/30/20 09:22 Dose: 300 mg Documented by: Glucagon (Glucagon For Inj 1 Mg Vial) 1 mg SQ UD PRN; Protocol PRN Reason: Hypoglycemia Protocol Stop: 10/27/20 18:29 Glucose (Glucose 10 Tabs/Tube) 4 - 8 tabs PO UD PRN; Protocol PRN Reason: Hypoglycemia Protocol Stop: 10/27/20 18:29 Glucose (Glucose 40% Gel 15 Gm Tube) 15 - 30 gm PO UD PRN; Protocol PRN Reason: Hypoglycemia Protocol Stop: 10/27/20 18:29 Heparin Sodium (Porcine) (Heparin Sod 5,000 Unit/0.5 Ml Vial) 5,000 units SQ Q8 [facility] Stop: 10/27/20 21:59 Last Admin: 09/30/20 05:38 Dose: Not Given Documented by: Insulin Aspart (Insulin Aspart 100 Units/Ml 3 Ml Pen) 0 units SC ACHS [facility] Stop: 10/27/20 20:59 Last Admin: 09/30/20 09:27 Dose: 2 units Documented by: Isosorbide Mononitrate (Isosorbide [place] Extended Rel 30 Mg Tabcr) 30 mg PO QAM [facility] Stop: 10/28/20 08:59 Last Admin: 09/30/20 09:21 Dose: 30 mg Documented by: Metoprolol Succinate (Metoprolol Succ 50mg Ext Rel Tab) 100 mg PO BID [facility] Stop: 10/27/20 20:59 Last Admin: 09/30/20 09:19 Dose: 100 mg Documented by: Mirtazapine (Mirtazapine Soltab 15 Mg) 45 mg PO HS [facility] Stop: 10/27/20 20:59 Last Admin: 09/29/20 21:04 Dose: 45 mg Documented by: Miscellaneous (Carbohydrates For Hypoglycemia ) 15 - 30 gm PO UD PRN PRN Reason: Hypoglycemia Protocol Stop: 10/27/20 18:29 Nitroglycerin (Nitroglycerin Sl 0.4 Mg/Tab Tab) 0.4 mg SL UD PRN PRN Reason: Chest Pain Stop: 10/27/20 18:29 Pantoprazole Sodium (Pantoprazole 40 Mg Tab) 40 mg PO BID [facility] Stop: 10/27/20 20:59 Last Admin: 09/30/20 09:21 Dose: 40 mg Documented by: Prednisone (Prednisone 20 Mg Tab) 20 mg PO DAILY [facility] Stop: 10/28/20 08:59 Last Admin: 09/30/20 09:19 Dose: 20 mg Documented by: Ropinirole HCl (Ropinirole Hcl 0.25 Mg Tablet) 0.5 mg PO HS [facility] Stop: 10/27/20 20:59 Last Admin: 09/29/20 21:07 Dose: 0.5 mg Documented by: Spironolactone (Spironolactone 25 Mg Tab) 25 mg PO QAM [facility] Stop: 10/28/20 08:59 Last Admin: 09/30/20 09:18 Dose: 25 mg Documented by: Torsemide (Torsemide 10 Mg Tab) 10 mg PO QAM [facility] Stop: 10/30/20 08:59 Last Admin: 09/30/20 09:22 Dose: 10 mg Documented by: Verapamil HCl (Verapamil Hcl 40 Mg Tab) 40 mg PO QID [facility] Stop: 10/27/20 20:59 Last Admin: 09/30/20 09:20 Dose: 40 mg Documented by:
--- NOTE | 2020-09-30 17:01 | Hospitalist Progress Note ---
Date of Service September 30, 2020 Assessment & Plan (1) Diastolic CHF, acute on chronic: Presented on admission with worsening shortness of breath CXR showed cardiomegaly and AICD with evidence of congestive failure. ProBNP on admission 4138 Received Lasix 40mg IV and dexamethasone on admission last ECHO on 08/22 showed LV hypertrophy with cardiomegaly Appreciate cardiology input and recommendation-medically stable to be discharged as per humanities coordinator Continue current medications As per the patient to medical floor and possible discharge tomorrow Denies any symptoms today and has been ambulating in the room without any symptoms She will be discharged home this afternoon Elevated Troponin Mostly related to CHF exacerbation Troponin on admission 0.192 EKG showed no acute ischemic changes Continue metoprolol , aspirin, statin, clopidogrel No ACS Denies any acute cardiac symptoms Acute bronchitis secondary to rhinovirus Negative for Covid 19 and positive rhinovirus on biofire Mild wheezing on exam droplet precaution and isolation guaifenesin Does not require any antibiotic and/or antiviral We will give a steroid on a tapering dose and very short on discharge Sleep apnea Has history of severe sleep apnea and may be the cause for her chronic insomnia Has history of sleep apnea and intolerable to CPAP-CPAP about 2 years ago CAD (coronary artery disease), [place] coronary artery: S/P right coronary artery (RCA) stent placement: Apical variant hypertrophic cardiomyopathy: Status post ICD placement Continue Plavix and aspirin HTN BP stable Continue outpatient med Diabetes Will hold outpatient DM med (oral and insulin 70/30 ) Will start on lantus and insulin sliding scale Continue monitor BS DVT prophylaxis on subcu heparin CODE STATUS FULL CODE Admission and Anticipated Discharge Date Admission Date: September 27, 2020 Subjective The patient was seen and examined in telemetry unit She has been complaining of shortness of breath on minimal exertion She does not feel that she is at her baseline Denies any palpitation, chest pain, any nausea and/or vomiting 09/30/2020 The patient was seen and examined in medical floor She has been feeling a lot better today and is ready to be discharged Denies any symptoms except shortness of breath on exertion which has been chronic in nature Review of Systems Review of Systems: All systems reviewed and are unremarkable except as noted below Constitutional: + weakness Respiratory: + cough and + dyspnea on exertion Physical Exam Physical Exam: Sitting on a chair with minimal shortness of breath at rest Constitutional: well developed, well nourished and + obese Eyes: PERRL, conjunctivae normal, anicteric sclerae ENMT: external ear and nose normal, oropharynx normal Neck: trachea midline, no thyromegaly Respiratory: no respiratory distress (Minimal distress at rest) Auscultati on: + diminished lung sounds; no crackles (Minimal bibasilar crackles) Cardiovascular: Rate/Rhythm: regular rate and regular rhythm Heart Sounds: no murmur Extremities: + edema (Trace edema bilaterally) Gastrointestinal (Abdomen): Inspection/Auscultation: normal bowel sounds; abdomen not distended Percussion/Palpation: abdomen soft; abdomen nontender Musculoskeletal: No acute arthritis in any joint Psychiatric: A+Ox3, euthymic affect Lymphatic: no cervical or axillary lymphadenopathy Results & Data Results & Data ([facility]) Vital Signs (Past 12 Hours) Vital Signs Temp Pulse Resp BP Pulse Ox 09/30/20 08:25 35.9 C L 63 20 120/61 99 Laboratory Results Short CBC 09/30/20 Range/Units 08:04 WBC 12.65 H (4.8-10.8) K/uL Hgb 11.2 L (12.0-16.0) g/dL Hct 37.3 (37-47) % Plt Count 293 (130-400) K/uL BMP 09/30/20 08:04 Sodium 141 Potassium 3.9 Chloride 109 H Carbon Dioxide 25 BUN 45 H Creatinine 1.60 H Glucose 118 H Calcium 9.1 Medications Administered Current Inpatient Medications Albuterol (Albut/Ipratrop 3mg/0.5mg Neb 3 Ml Vial) 3 ml NEB Q4R PRN PRN Reason: SOB/Wheezing Stop: 10/27/20 18:29 Aspirin (Aspirin 81 Mg Ectab) 81 mg PO DAILY [facility] Stop: 10/28/20 08:59 Last Admin: 09/30/20 09:21 Dose: 81 mg Documented by: Atorvastatin Calcium (Atorvastatin 40 Mg Tab) 40 mg PO QAM [facility] Stop: 10/28/20 08:59 Last Admin: 09/30/20 09:22 Dose: 40 mg Documented by: Ciprofloxacin (Ciprofloxacin Hcl 0.3% Op Soln 2.5 Ml Btl) 2 drops OP Q4H [facility] Stop: 10/10/20 04:59 Last Admin: 09/30/20 13:18 Dose: 2 drops Documented by: Clopidogrel Bisulfate (Clopidogrel Bisulfate 75 Mg Tab) 75 mg PO QAM [facility] Stop: 10/28/20 08:59 Last Admin: 09/30/20 09:19 Dose: 75 mg Documented by: Dextrose (Dextrose 50% 50 Ml Syringe) 25 - 50 ml IV UD PRN; Protocol PRN Reason: Hypoglycemia Protocol Stop: 10/27/20 18:29 Diphenoxylate HCl/Atropine (Diphenoxylate/Atropine 2.5/0.025mg Tab) 1 tab PO QID PRN PRN Reason: Diarrhea Stop: 10/27/20 18:29 Duloxetine HCl (Duloxetine Hcl 60 Mg Cap) 60 mg PO QAM [facility] Stop: 10/28/20 08:59 Last Admin: 09/30/20 09:20 Dose: 60 mg Documented by: Duloxetine HCl (Duloxetine Hcl 30 Mg Cap) 30 mg PO QAM [facility] Stop: 10/28/20 08:59 Last Admin: 09/30/20 09:20 Dose: 30 mg Documented by: Fluticasone/Vilanterol (Fluticasone/Vilanterol 200/25mcg 14 Puffs/Inhaler) 1 puffs INH DAILY [facility] Stop: 10/28/20 08:59 Last Admin: 09/30/20 09:23 Dose: 1 puffs Documented by: Folic Acid (Folic Acid 1 Mg Tab) 1 mg PO HS [facility] Stop: 10/27/20 20:59 Last Admin: 09/29/20 21:07 Dose: 1 mg Documented by: Gabapentin (Gabapentin 300 Mg Cap) 300 mg PO TID [facility] Stop: 10/27/20 20:59 Last Admin: 09/30/20 13:18 Dose: 300 mg Documented by: Glucagon (Glucagon For Inj 1 Mg Vial) 1 mg SQ UD PRN; Protocol PRN Reason: Hypoglycemia Protocol Stop: 10/27/20 18:29 Glucose (Glucose 10 Tabs/Tube) 4 - 8 tabs PO UD PRN; Protocol PRN Reason: Hypoglycemia Protocol Stop: 10/27/20 18:29 Glucose (Glucose 40% Gel 15 Gm Tube) 15 - 30 gm PO UD PRN; Protocol PRN Reason: Hypoglycemia Protocol Stop: 10/27/20 18:29 Heparin Sodium (Porcine) (Heparin Sod 5,000 Unit/0.5 Ml Vial) 5,000 units SQ Q8 [facility] Stop: 12/09/20 21:59 Last Admin: 09/30/20 13:18 Dose: Not Given Documented by: Insulin Aspart (Insulin Aspart 100 Units/Ml 3 Ml Pen) 0 units SC ACHS [facility] Stop: 10/27/20 20:59 Last Admin: 09/30/20 13:19 Dose: 5 units Documented by: Isosorbide Mononitrate (Isosorbide [place] Extended Rel 30 Mg Tabcr) 30 mg PO QAM [facility] Stop: 10/28/20 08:59 Last Admin: 09/30/20 09:21 Dose: 30 mg Documented by: Metoprolol Succinate (Metoprolol Succ 50mg Ext Rel Tab) 100 mg PO BID [facility] Stop: 10/27/20 20:59 Last Admin: 09/30/20 09:19 Dose: 100 mg Documented by: Mirtazapine (Mirtazapine Soltab 15 Mg) 45 mg PO HS [facility] Stop: 10/27/20 20:59 Last Admin: 09/29/20 21:04 Dose: 45 mg Documented by: Miscellaneous (Carbohydrates For Hypoglycemia ) 15 - 30 gm PO UD PRN PRN Reason: Hypoglycemia Protocol Stop: 10/27/20 18:29 Nitroglycerin (Nitroglycerin Sl 0.4 Mg/Tab Tab) 0.4 mg SL UD PRN PRN Reason: Chest Pain Stop: 10/27/20 18:29 Pantoprazole Sodium (Pantoprazole 40 Mg Tab) 40 mg PO BID [facility] Stop: 10/27/20 20:59 Last Admin: 09/30/20 09:21 Dose: 40 mg Documented by: Prednisone (Prednisone 20 Mg Tab) 20 mg PO DAILY [facility] Stop: 10/28/20 08:59 Last Admin: 09/30/20 09:19 Dose: 20 mg Documented by: Ropinirole HCl (Ropinirole Hcl 0.25 Mg Tablet) 0.5 mg PO HS [facility] Stop: 10/27/20 20:59 Last Admin: 09/29/20 21:07 Dose: 0.5 mg Documented by: Spironolactone (Spironolactone 25 Mg Tab) 25 mg PO QAM [facility] Stop: 10/28/20 08:59 Last Admin: 09/30/20 09:18 Dose: 25 mg Documented by: Torsemide (Torsemide 10 Mg Tab) 10 mg PO QAM [facility] Stop: 10/30/20 08:59 Last Admin: 09/30/20 09:22 Dose: 10 mg Documented by: Verapamil HCl (Verapamil Hcl 40 Mg Tab) 40 mg PO QID [facility] Stop: 10/27/20 20:59 Last Admin: 09/30/20 13:17 Dose: 40 mg Documented by:
--- NOTE | 2020-10-01 07:56 | Discharge Summary ---
Date of Service October 01, 2020 Admission HPI Per Admitting Provider 60-year-old female with past medical history\ significant for chronic kidney disease stage III, chronic respiratory failure on oxygen supplement , obstructive sleep apnea, history of hypertrophic obstructive cardiomyopathy, family history of sudden cardiac , status post ICD, diastolic heart failure, hypertension, CAD, irritable bowel syndrome, morbid obesity, migraine, depression present on admission with worsening SOB. Pt said that she has been having SOB since discharge. Pt said that SOB worsening with minimal SOB. Pt said that she gained 3lbs in the last few days. She was in the ER few days ago for the SOB. She said that she has productive cough with yellowish sputum. She said that she has chest discomfort when she cough. Pt said that she seems like she is not urinated much. She said that she takes the torsemide as directed. Pt said that she is scheduled to see Cardiology this week. Denies any fever, palpitation, dizziness. Admission Exam Per Admitting Provider Physical Exam: General- No acute distress Head- atraumatic Eyes- PERRL, EOMI, ENT- oropharynx clear Neck- supple, no JVD Lungs- +wheezing Heart- regular rhythm; +murmur Abdomen- normal bowel sounds, soft, nontender Extremities- no calf tenderness, trace edema Neuro- alert, oriented x 3; PERRL, EOMI; no facial palsy; no dysarthria Skin- warm & dry Principal Diagnosis Acute on chronic diastolic CHF, acute bronchitis secondary to rhinovirus, sleep apnea . Discharge Exam Constitutional well developed, well nourished and + obese Eyes PERRL, conjunctivae normal, anicteric sclerae ENMT external ear and nose normal, oropharynx normal Neck trachea midline, no thyromegaly Respiratory no respiratory distress (Minimal distress at rest) Auscultation: + diminished lung sounds; no crackles (Minimal bibasilar crackles) Cardiovascular Rate/Rhythm: regular rate and regular rhythm Heart Sounds: no murmur Extremities: + edema (Trace edema bilaterally) Gastrointestinal (Abdomen) Inspection/Auscultation: normal bowel sounds; abdomen not distended Percussion/Palpation: abdomen soft; abdomen nontender Psychiatric A+Ox3, euthymic affect Lymphatic no cervical or axillary lymphadenopathy Discharge Data Allergies Allergy/AdvReac Type Severity Reaction Status Date / Time Penicillins Allergy Intermediate Flushing, Verified 10/03/20 23:50 Itchiness Sulfa (Sulfonamide Allergy Intermediate Swelling Verified 08/21/20 23:50 Antibiotics) doxycycline Allergy Unknown Unknown Verified 08/21/20 23:50 adhesive AdvReac Intermediate Blistering Verified 08/21/20 23:50 Consultations 09/27/20 15:01 ED Decision to Admit Stat 09/28/20 07:00 Consult Cardiology Routine Hospital Course (1) Diastolic CHF, acute on chronic: Presented on admission with worsening shortness of breath CXR showed cardiomegaly and AICD with evidence of congestive failure. ProBNP on admission 4138 Received Lasix 40mg IV and dexamethasone on admission last ECHO on 08/22 showed LV hypertrophy with cardiomegaly Appreciate cardiology input and recommendation-medically stable to be discharged as per cutting and splicing supervisor Continue current medications As per the patient to medical floor and possible discharge tomorrow Denies any symptoms today and has been ambulating in the room without any symptoms She will be discharged home this afternoon Elevated Troponin Mostly related to CHF exacerbation Troponin on admission 0.192 EKG showed no acute ischemic changes Continue metoprolol , aspirin, statin, clopidogrel No ACS Denies any acute cardiac symptoms Acute bronchitis secondary to rhinovirus Negative for Covid 19 and positive rhinovirus on biofire Mild wheezing on exam droplet precaution and isolation gujyotifenesin Does not require any antibiotic and/or antiviral We will give a steroid on a tapering dose and very short on discharge Sleep apnea Has history of severe sleep apnea and may be the cause for her chronic insomnia Has history of sleep apnea and intolerable to CPAP-CPAP about 2 years ago CAD (coronary artery disease), [place] coronary artery: S/P right coronary artery (RCA) stent placement: Apical variant hypertrophic cardiomyopathy: Status post ICD placement Continue Plavix and aspirin HTN BP stable Continue outpatient med Diabetes Will hold outpatient DM med (oral and insulin 70/30 ) Will start on lantus and insulin sliding scale Continue monitor BS DVT prophylaxis on subcu heparin CODE STATUS FULL CODE Total Time Total Time Spent Total Time Spent (In Minutes): 40 minutes Total Time Includes: Examination of the Patient, Discharge Planning, Medication Reconciliation and Communication With Other Providers Discharge Plan Discharge Items Patient Disposition: Home - Self-Care Reason For Visit: WORSENING SOB Discharge Diagnosis: Acute on chronic diastolic CHF, acute bronchitis secondary to rhinovirus, sleep apnea . Condition on Discharge: Fair Activity: Resume your previous activity Non-emergency contact: Primary Care Provider Call non-emergency contact if: you have any medication questions and your symptoms worsen Follow-up/Referrals: Suad De León DO [Primary Care Provider] - (Date & Time 10/05/2020 3:00 PM Provider Suad De León DO Department [facility] ) Diet: Heart Healthy and Low Sodium (2gm) Addtl Attending Provider Instructions: Please finish the course of prednisone Please try to avoid the factors causing increase in shortness of breath as advised Pending Studies at Discharge: No Stand-Alone Forms: My [employer], Smoking Cessation Medications and DC Order Prescriptions: New prednisone 10 mg tablet 10 mg PO UD Qty: 15 RF: 0 Continued duloxetine 60 mg Capsule,Delayed Release(Dr/Ec) 60 mg PO QAM RF: 0 folic acid 1 mg Tablet 1 mg PO HS RF: 0 sumatriptan succinate 25 mg Tablet 50 mg PO DIRECTED PRN (Reason: Migraine Headache) RF: 0 gabapentin 300 mg capsule 300 mg PO TID RF: 0 albuterol sulfate [Ventolin HFA] 90 mcg/actuation Hfa Aerosol Inhaler 2 puff INHALATION Q4H PRN (Reason: Wheezing) RF: 0 ondansetron 4 mg tablet,disintegrating 4 mg translingual Q8H PRN (Reason: Nausea) RF: 0 duloxetine 30 mg capsule,delayed release(DR/EC) 30 mg PO QAM RF: 0 nitroglycerin [Nitrostat] 0.4 mg tablet, sublingual 0.4 mg sublingual DIRECTED PRN (Reason: Chest Pain) RF: 0 fluticasone propion-salmeterol [Advair Diskus] 500-50 mcg/dose Blister With Device 1 inh INHALATION BID RF: 0 spironolactone [Aldactone] 25 mg Tablet 25 mg PO QAM RF: 0 metoprolol succinate 100 mg tablet extended release 24 hr 100 mg PO BID RF: 0 mirtazapine 45 mg Tablet 45 mg PO HS RF: 0 ropinirole 0.5 mg Tablet 0.5 mg PO HS RF: 0 atorvastatin [Lipitor] 40 mg tablet 40 mg PO QAM RF: 0 isosorbide mononitrate 30 mg Tablet Extended Release 24 Hr 30 mg PO QAM RF: 0 pantoprazole 40 mg Tablet,Delayed Release (Dr/Ec) 40 mg PO BID RF: 0 aspirin 81 mg Tablet,Chewable 81 mg PO DAILY RF: 0 Januvia 100 mg Tablet 100 mg PO DAILY RF: 0 Lactobacillus acidoph-L.bulgar [Floranex] 1 million cell Tablet 1 tab PO TID RF: 0 clopidogrel 75 mg Tablet 75 mg PO QAM Qty: 30 RF: 2 metformin [Glucophage] 500 mg Tablet 500 mg PO BIDM Qty: 0 RF: 0 torsemide 10 mg Tablet 20 mg PO Q2D Qty: 10 RF: 0 albuterol sulfate 2.5 mg /3 mL (0.083 %) solution for nebulization 3 ml Inhalation Q4H PRN (Reason: Wheezing) RF: 0 diphenoxylate-atropine [Lomotil] 2.5-0.025 mg Tablet 1 tab PO QID PRN (Reason: Diarrhea) RF: 0 verapamil 40 mg tablet 40 mg PO QID RF: 0 torsemide 10 mg Tablet 10 mg PO QAM RF: 0 budesonide 0.5 mg/2 mL suspension for nebulization 0.5 mg inhalation Q12 RF: 0 insulin asp prt-insulin aspart [Novolog Mix 70-30FlexPen U-100] 100 unit/mL (70-30) insulin pen 55 unit SUBCUT DAILYBB RF: 0 insulin asp prt-insulin aspart [Novolog Mix 70-30FlexPen U-100] 100 unit/mL (70-30) insulin pen 25 unit SUBCUT DAILYBD RF: 0 Discharge Orders: Discharge Order (Routine); Ordered 09/30/20 Ordered By: Mariana Humphreys/Other Patient Handouts: Prednisone tablets Admission Data Admit Date/Time: 09/27/20 17:29 Attending Provider: Mariana Emmanuel Admit Provider: Winnie Ramirez Primary Care Provider: Suad De León Other Providers: Matt Mallory ; Winnie Ramirez ; Brennan Grant Other Interventions: Discharge Summary Assessment (RN) Last Done: 09/30/20 17:31
== END 2020-09-30 18:41 | disposition home or self-care (01) | DRG 291 ==
LOC: ED 12:24 → SUATTDRO 17:29 → 2S 17:29 → 3N 09-29 11:35

== ENCOUNTER 2020-10-31 19:54 | Inpatient (IN) ==
[2020-10-31 20:37] LABS: Basophils # (auto) 0.01 K/uL (0-0.2); Basophils % (auto) 0.1 %; Eosinophils % (auto) 0.9 %; Hemoglobin 10.4 g/dL (12.0-16.0); Immature Granulocytes # (auto) 0.02 K/uL (0.00-0.02); Immature Granulocytes % (auto) 0.2 %; Lymphocytes # (auto) 0.87 K/uL (1.2-3.4); Lymphocytes % (auto) 7.6 %; Mean Corpuscular Hemoglobin 25.4 pg (25-34); Mean Corpuscular Hgb Conc 29.7 g/dL (32-36); Mean Corpuscular Volume 85.6 fL (80-100); Mean Platelet Volume 9.1 fL (7.4-10.4); Monocytes # (auto) 0.59 K/uL (0.11-0.59); Monocytes % (auto) 5.1 %; Neutrophils # (auto) 9.89 K/uL (1.4-6.5); Neutrophils % (auto) 86.1 %; Platelet Count 279 K/uL (130-400); RDW Coefficient of Variation 18.9 % (11.5-14.5); RDW Standard Deviation 57.9 fL (36.4-46.3); Red Blood Count 4.09 M/uL (4.2-5.4); White Blood Count 11.48 K/uL (4.8-10.8)
[2020-10-31 20:47] LABS: INR 1.2 (0.9-1.1); Partial Thromboplastin Ratio 0.9; Partial Thromboplastin Time 25.7 Seconds (21.0-31.0); Prothrombin Time 12.1 Seconds (9.0-12.0)
--- NOTE | 2020-10-31 20:52 | Emergency Department Note ---
Impression & Plan SOB (shortness of breath), Right-sided chest pain ED Provider Note INFORMANT: Patient ED PROVIDER(S): Adis Small MD CHIEF COMPLAINT: SOB PLAN: Disposition: admitted Condition: Good MEDICAL DECISION MAKING: Patient presented emergency room complaining of shortness of breath and chest tightness. She has a history of cardiomyopathy and CHF. She feels like she is gaining weight and has more peripheral edema. Record review indicates that she has changed her weight significantly in the positive. She does have peripheral edema on physical examination. She denies missing any doses of her diuretic. A work-up was performed. The patient had a normal sinus rhythm on ECG without ischemia. Her CBC showed a mild leukocytosis and anemia which is unchanged from prior. The patient's troponin is mildly elevated. She has a chronic elevation of her troponin. Mild renal insufficiency noted. The patient's BNP is significantly elevated, almost twice what it normally has been recently. The patient's chest x-ray does show a very large heart and some mild increased interstitium. The patient had a Covid test that was performed and was negative. She does not feel well enough to go home and given her poor cardiac status I discussed IV diuresis with her. She was given IV Lasix, 80 mg in the ER. [facility]. Patient was evaluated in the ER and admitted for further management. Triage Nursing notes reviewed and agree them. Prior medical records reviewed regarding prior visits and treatment. Vital Signs: reviewed and remarkable for no significant abnormalities Differential diagnosis: Reactive airway disease, pneumonia, pneumothorax, COPD, CHF, infections, cardiac ischemia, pulmonary embolism, musculoskeletal, gastrointestinal, as well as other pathologies. Diagnostics interpreted by me: ECG: Twelve-lead ECG reveals a normal sinus rhythm at 86 bpm. There is LVH with repolarization abnormality present. Prolonged QT. No ST elevation or depression. No PVCs or PACs. Normal axis and QRS. Cardiac Monitoring: Cardiac monitoring ordered by me: The patient was placed on continuous cardiac monitoring and observed. It revealed a normal sinus rhythm at 73 beats per minute without ectopy or evidence of dysrhythmia. Imaging studies: Chest x-ray mild CHF as noted above. Consultation(s): [facility] service, HPI: The patient is a 60 year old female who presents to the Emergency Room with complaints of chest pain, right. This started this week and is worsening. The patient also notes the following associated symptoms, SOB, weight gain, low grade temp. COVID test last week negative. The patient has found relieving factors. Current pain is rated as 9/10. Pt denies LOC, headache, fevers, chills, diaphoresis, visual changes, neck pain,nausea, vomiting, abdominal pain, back pain, melena, hematochezia, urinary symptoms, numbness, weakness, lymphadenopathy, rash, or other complaints. ROS: See above HPI for pertinent positives & negatives. A total of 10 systems reviewed and were otherwise negative. PAST MEDICAL HISTORY:See Below,HOCM PAST SURGICAL HISTORY:See Below, FAMILY HISTORY:See Below SOCIAL HISTORY:See Below, Non smoker HOME MEDICATIONS:See Below ALLERGIES:See Below VITALS:See Below PHYSICAL EXAMINATION: GENERAL: Awake, alert, uncomfortable-appearing, in no distress HENT: Normocephalic, atraumatic. Oropharynx unremarkable. EYES: Normal conjunctiva. Sclera non-icteric. NECK: Inspection normal. Non-tender. Supple. No nuchal rigidity. FROM. No masses. RESPIRATORY: Clear to auscultation. No wheezes. No rales. Increased respiratory effort. CARDIAC: Normal rate. Normal rhythm. No murmurs. No rubs. Extremities warm and well perfused. Pulses equal. No JVD. GI: Soft, non-distended. No tenderness to palpation. No rebound or guarding. No masses. RECTAL: Deferred. MUSCULOSKELETAL: Atraumatic. Chest examination reveals no tenderness. The back is symmetrical on inspection without obvious abnormality. There is no CVA tenderness to palpation. No joint edema. LOWER EXTREMITIES: Calves are equal size bilaterally and non-tender. +1 edema. No discoloration. NEURO: Normal sensorium. No sensory or motor deficits noted. SKIN: No rash or jaundice noted. Adis Small MD Past Med/Surg History Medical History (Updated 10/31/20 @ 20:49 by Adis Small MD) Anxiety Arthritis Asthma Cardiac defibrillator in place 2014 CHF (congestive heart failure) CKD (chronic kidney disease), stage III COPD (chronic obstructive pulmonary disease) Depression Depression with anxiety Diabetes mellitus, type 2 Elevated troponin Elevated troponin Fatty (change of) liver, not elsewhere classified GERD (gastroesophageal reflux disease) HLD (hyperlipidemia) Hydronephrosis of right kidney Hypertension Hypertrophic cardiomyopathy CADENCE (obstructive sleep apnea) on nocturnal O2 2L Pancreatic cyst Restless leg syndrome Surgical History H/O section 1979 & 1982 H/O hernia repair 2016 History of appendectomy 1970s History of colostomy reversal bowel perf 2013 with colostomy reversed in 2014 Status post internal cardiac defibrillator procedure "2015" Status post partial resection of colon "diverticulitis 11/05/14" Family History Other Hypertrophic cardiomyopathy Stomach cancer Thyroid disorder Social History Smoking Status: Never smoker Second Hand Exposure: No; Hx Alcohol Use: No Hx Substance Use: No Preferred Language: Setswana Communication Ability: Effective Exhibits Manager Required: No Beliefs That Will Affect Care: Confucianism Confucianism Beliefs: Mormon marital status: Current Living Situation: Spouse 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 Feels Safe at Home: Yes Assistive Devices: Oxygen - Continuous Allergies Allergies Allergy/AdvReac Type Severity Reaction Status Date / Time Penicillins Allergy Intermediate Flushing, Verified 10/31/20 21:35 Itchiness Sulfa (Sulfonamide Allergy Intermediate Swelling Verified 10/31/20 21:35 Antibiotics) doxycycline Allergy Unknown Unknown Verified 10/31/20 21:35 adhesive AdvReac Intermediate Blistering Verified 10/31/20 21:35 Home Meds Home Medications Medication Instructions Recorded Confirmed duloxetine 60 mg PO QAM 08/09/18 10/31/20 folic acid 1 mg PO HS 08/09/18 10/31/20 sumatriptan succinate 50 mg PO DIRECTED PRN 08/09/18 10/31/20 albuterol sulfate 3 ml INHALATION Q4H PRN 09/09/18 10/31/20 diphenoxylate-atropine [Lomotil] 1 tab PO QID PRN 12/19/18 10/31/20 albuterol sulfate [Ventolin HFA] 2 puff INHALATION Q4H PRN 06/30/19 10/31/20 duloxetine 30 mg PO QAM 06/30/19 10/31/20 fluticasone propion-salmeterol 1 inh INHALATION BID 06/30/19 10/31/20 [Advair Diskus] gabapentin 300 mg PO TID 06/30/19 10/31/20 nitroglycerin [Nitrostat] 0.4 mg SUBLINGUAL DIRECTED PRN 06/30/19 10/31/20 ondansetron 4 mg TRANSLINGUAL Q8H PRN 06/30/19 10/31/20 spironolactone [Aldactone] 25 mg PO QAM 06/30/19 10/31/20 metoprolol succinate 100 mg PO BID 09/25/19 10/31/20 mirtazapine 45 mg PO HS 09/25/19 10/31/20 ropinirole 0.5 mg PO HS 09/25/19 10/31/20 budesonide 0.5 mg INHALATION Q12 01/13/20 10/31/20 torsemide See Rx Instructions .ROUTE .COMPLEX 01/13/20 10/31/20 verapamil 40 mg PO QID 01/13/20 10/31/20 atorvastatin [Lipitor] 40 mg PO QAM 04/30/20 10/31/20 insulin asp prt-insulin aspart 25 unit SUBCUT DAILYBD 07/07/20 10/31/20 [Novolog Mix 70-30FlexPen U-100] insulin asp prt-insulin aspart 55 unit SUBCUT DAILYBB 07/07/20 10/31/20 [Novolog Mix 70-30FlexPen U-100] Januvia 100 mg PO DAILY 07/28/20 10/31/20 Lactobacillus acidoph-L.bulgar 1 tab PO TID 07/28/20 10/31/20 [Floranex] aspirin 81 mg PO DAILY 07/28/20 10/31/20 isosorbide mononitrate 30 mg PO QAM 07/28/20 10/31/20 pantoprazole 40 mg PO BID 07/28/20 10/31/20 Previous Rx's Medication Instructions Recorded clopidogrel 75 mg PO QAM #30 tab 07/30/20 metformin [Glucophage] 500 mg PO BIDM #0 tab 07/30/20 Results & Data (ED) Vital Signs Vital Signs - 24 hr 10/31/20 19:56 10/31/20 20:04 10/31/20 20:08 Temperature 36.9 C Temperature Source Oral Pulse Rate 106 H 76 Pulse Rate [Apical] 98 H Pulse Rate from SpO2 Sensor 79 Respiratory Rate 22 28 H 19 Respiratory Effort / Characteristics Spontaneous Labored Short of Breath Respiratory Depth Normal Blood Pressure 113/64 126/67 Blood Pressure [Left Arm] 126/67 Blood Pressure Mean 80 83 Blood Pressure Mean [Left Arm] 86 Pulse Oximetry 100 83 L 98 Oxygen Delivery Method Room Air Room Air Nasal Cannula Oxygen Flow Rate 4 Sepsis Recent Fever Within 48 Hours No Sepsis New/Unexplained Change in Mental Status No Sepsis Action Taken by Nursing No Action Required Oxygen Flow Rate - Titration 10/31/20 20:09 10/31/20 20:30 10/31/20 20:31 Temperature Temperature Source Pulse Rate 70 Pulse Rate [Apical] 77 Pulse Rate from SpO2 Sensor 70 Respiratory Rate 20 20 Respiratory Effort / Characteristics Spontaneous Short of Breath Respiratory Depth Normal Blood Pressure 121/74 Blood Pressure [Left Arm] Blood Pressure Mean 89 Blood Pressure Mean [Left Arm] Pulse Oximetry 94 100 100 Oxygen Delivery Method Nasal Cannula Nasal Cannula Oxygen Flow Rate 4 4 Sepsis Recent Fever Within 48 Hours Sepsis New/Unexplained Change in Mental Status Sepsis Action Taken by Nursing Oxygen Flow Rate - Titration 4 10/31/20 20:32 10/31/20 21:00 10/31/20 21:31 Temperature Temperature Source Pulse Rate 71 73 Pulse Rate [Apical] Pulse Rate from SpO2 Sensor 70 67 Respiratory Rate 24 26 H Respiratory Effort / Characteristics Respiratory Depth Blood Pressure 133/79 126/56 L Blood Pressure [Left Arm] Blood Pressure Mean 100 98 Blood Pressure Mean [Left Arm] Pulse Oximetry 100 100 93 Oxygen Delivery Method Nasal Cannula Nasal Cannula Nasal Cannula Oxygen Flow Rate 4 4 2 Sepsis Recent Fever Within 48 Hours Sepsis New/Unexplained Change in Mental Status Sepsis Action Taken by Nursing Oxygen Flow Rate - Titration 10/31/20 21:32 10/31/20 22:00 10/31/20 22:01 Temperature Temperature Source Pulse Rate 71 73 75 Pulse Rate [Apical] Pulse Rate from SpO2 Sensor 74 76 81 Respiratory Rate 28 H 22 25 H Respiratory Effort / Characteristics Respiratory Depth Blood Pressure 142/69 H Blood Pressure [Left Arm] Blood Pressure Mean 82 Blood Pressure Mean [Left Arm] Pulse Oximetry 92 94 Oxygen Delivery Method Oxygen Flow Rate Sepsis Recent Fever Within 48 Hours Sepsis New/Unexplained Change in Mental Status Sepsis Action Taken by Nursing Oxygen Flow Rate - Titration 10/31/20 22:30 10/31/20 22:31 10/31/20 23:00 Temperature Temperature Source Pulse Rate 74 76 81 Pulse Rate [Apical] Pulse Rate from SpO2 Sensor 74 79 Respiratory Rate 26 H 24 22 Respiratory Effort / Characteristics Respiratory Depth Blood Pressure 103/58 L Blood Pressure [Left Arm] Blood Pressure Mean 63 Blood Pressure Mean [Left Arm] Pulse Oximetry 92 96 Oxygen Delivery Method Oxygen Flow Rate Sepsis Recent Fever Within 48 Hours Sepsis New/Unexplained Change in Mental Status Sepsis Action Taken by Nursing Oxygen Flow Rate - Titration 10/31/20 23:50 Temperature Temperature Source Pulse Rate Pulse Rate [Apical] 73 Pulse Rate from SpO2 Sensor Respiratory Rate 18 Respiratory Effort / Characteristics Non-Labored Respiratory Depth Normal Blood Pressure Blood Pressure [Left Arm] 114/66 Blood Pressure Mean Blood Pressure Mean [Left Arm] 82 Pulse Oximetry 100 Oxygen Delivery Method Nasal Cannula Oxygen Flow Rate 4 Sepsis Recent Fever Within 48 Hours Sepsis New/Unexplained Change in Mental Status Sepsis Action Taken by Nursing Oxygen Flow Rate - Titration Laboratory Data Result diagrams: 10/31/20 20:27 10/31/20 20:27 Lab Results 10/31/20 10/31/20 10/31/20 Range/Units 20:27 20:27 20:27 WBC 11.48 H (4.8-10.8) K/uL RBC 4.09 L (4.2-5.4) M/uL Hgb 10.4 L (12.0-16.0) g/dL Hct 35.0 L (37-47) % MCV 85.6 (80-100) fL MCH 25.4 (25-34) pg MCHC 29.7 L (32-36) g/dL RDW Std Deviation 57.9 H (36.4-46.3) fL RDW Coeff of Rolan 18.9 H (11.5-14.5) % Plt Count 279 (130-400) K/uL MPV 9.1 (7.4-10.4) fL Immature Gran % (Auto) 0.2 % Neut % (Auto) 86.1 % Lymph % (Auto) 7.6 % Dougherty % (Auto) 5.1 % Eos % (Auto) 0.9 % Baso % (Auto) 0.1 % Neut # (Auto) 9.89 H (1.4-6.5) K/uL Lymph # (Auto) 0.87 L (1.2-3.4) K/uL Dougherty # (Auto) 0.59 (0.11-0.59) K/uL Eos # (Auto) 0.10 (0-0.5) K/uL Baso # (Auto) 0.01 (0-0.2) K/uL Immature Gran # (Auto) 0.02 (0.00-0.02) K/uL PT 12.1 H (9.0-12.0) Seconds INR 1.2 H (0.9-1.1) APTT 25.7 (21.0-31.0) Seconds PTT Ratio 0.9 Sodium 147 H (136-145) mmol/L Potassium 4.1 (3.5-5.1) mmol/L Chloride 111 H (98-107) mmol/L Carbon Dioxide 30 (21-32) mmol/L Anion Gap 6.0 (3-11) BUN 39 H (7-18) mg/dl Creatinine 1.84 H (0.6-1.2) mg/dl Est Cr Clr Drug Dosing 28.6 ml/min Est GFR ( Amer) 33.5 Est GFR (Non-Af Amer) 28.9 BUN/Creatinine Ratio 21.2 H (10-20) Glucose 117 H (70-99) mg/dl Calcium 8.2 L (8.5-10.1) mg/dl Total Bilirubin 0.7 (0.2-1) mg/dl AST 20 (15-37) U/L ALT 25 (12-78) U/L Alkaline Phosphatase 144 H (45-117) U/L Troponin I 0.261 H* (0-0.045) ng/ml NT-Pro-B Natriuret Pep (0-900) pg/ml Total Protein 7.3 (6.4-8.2) gm/dl Albumin 3.6 (3.4-5.0) gm/dl Globulin 3.7 (2.5-4.0) gm/dl Albumin/Globulin Ratio 1.0 (0.9-2) COVID-19 Eval Order SARS-CoV-2, RNA, NAAT (NEGATIVE) 10/31/20 10/31/20 10/31/20 Range/Units 20:27 21:19 21:19 WBC (4.8-10.8) K/uL RBC (4.2-5.4) M/uL Hgb (12.0-16.0) g/dL Hct (37-47) % MCV (80-100) fL MCH (25-34) pg MCHC (32-36) g/dL RDW Std Deviation (36.4-46.3) fL RDW Coeff of Rolan (11.5-14.5) % Plt Count (130-400) K/uL MPV (7.4-10.4) fL Immature Gran % (Auto) % Neut % (Auto) % Lymph % (Auto) % Dougherty % (Auto) % Eos % (Auto) % Baso % (Auto) % Neut # (Auto) (1.4-6.5) K/uL Lymph # (Auto) (1.2-3.4) K/uL Dougherty # (Auto) (0.11-0.59) K/uL Eos # (Auto) (0-0.5) K/uL Baso # (Auto) (0-0.2) K/uL Immature Gran # (Auto) (0.00-0.02) K/uL PT (9.0-12.0) Seconds INR (0.9-1.1) APTT (21.0-31.0) Seconds PTT Ratio Sodium (136-145) mmol/L Potassium (3.5-5.1) mmol/L Chloride (98-107) mmol/L Carbon Dioxide (21-32) mmol/L Anion Gap (3-11) BUN (7-18) mg/dl Creatinine (0.6-1.2) mg/dl Est Cr Clr Drug Dosing ml/min Est GFR ( Amer) Est GFR (Non-Af Amer) BUN/Creatinine Ratio (10-20) Glucose (70-99) mg/dl Calcium (8.5-10.1) mg/dl Total Bilirubin (0.2-1) mg/dl AST (15-37) U/L ALT (12-78) U/L Alkaline Phosphatase (45-117) U/L Troponin I (0-0.045) ng/ml NT-Pro-B Natriuret Pep 6810 H (0-900) pg/ml Total Protein (6.4-8.2) gm/dl Albumin (3.4-5.0) gm/dl Globulin (2.5-4.0) gm/dl Albumin/Globulin Ratio (0.9-2) COVID-19 Eval Order Covid19 [facility] SARS-CoV-2, RNA, NAAT NEGATIVE (NEGATIVE) Administered Medications Discontinued Medications Furosemide (Furosemide 40 Mg/4 Ml Vial) 80 mg IV NOW STA Stop: 10/31/20 23:33 Last Admin: 10/31/20 23:43 Dose: 80 mg Documented by: [id number] Discharge Plan Visit Data Chief Complaint: Chest Pain Stated Complaint: CHEST PAIN ED Provider: Adis Small Discharge Problem: SOB (shortness of breath), Right-sided chest pain Forms Stand Alone Forms: [facility] Prescriptions Prescriptions: No Action duloxetine 60 mg Capsule,Delayed Release(Dr/Ec) 60 mg PO QAM RF: 0 folic acid 1 mg Tablet 1 mg PO HS RF: 0 sumatriptan succinate 25 mg Tablet 50 mg PO DIRECTED PRN (Reason: Migraine Headache) RF: 0 gabapentin 300 mg capsule 300 mg PO TID RF: 0 albuterol sulfate [Ventolin HFA] 90 mcg/actuation Hfa Aerosol Inhaler 2 puff INHALATION Q4H PRN (Reason: Wheezing) RF: 0 ondansetron 4 mg tablet,disintegrating 4 mg translingual Q8H PRN (Reason: Nausea) RF: 0 duloxetine 30 mg capsule,delayed release(DR/EC) 30 mg PO QAM RF: 0 nitroglycerin [Nitrostat] 0.4 mg tablet, sublingual 0.4 mg sublingual DIRECTED PRN (Reason: Chest Pain) RF: 0 fluticasone propion-salmeterol [Advair Diskus] 500-50 mcg/dose Blister With Device 1 inh INHALATION BID RF: 0 spironolactone [Aldactone] 25 mg Tablet 25 mg PO QAM RF: 0 metoprolol succinate 100 mg tablet extended release 24 hr 100 mg PO BID RF: 0 mirtazapine 45 mg Tablet 45 mg PO HS RF: 0 ropinirole 0.5 mg Tablet 0.5 mg PO HS RF: 0 atorvastatin [Lipitor] 40 mg tablet 40 mg PO QAM RF: 0 isosorbide mononitrate 30 mg Tablet Extended Release 24 Hr 30 mg PO QAM RF: 0 pantoprazole 40 mg Tablet,Delayed Release (Dr/Ec) 40 mg PO BID RF: 0 aspirin 81 mg Tablet,Chewable 81 mg PO DAILY RF: 0 Januvia 100 mg Tablet 100 mg PO DAILY RF: 0 Lactobacillus acidoph-L.bulgar [Floranex] 1 million cell Tablet 1 tab PO TID RF: 0 clopidogrel 75 mg Tablet 75 mg PO QAM Qty: 30 RF: 2 metformin [Glucophage] 500 mg Tablet 500 mg PO BIDM Qty: 0 RF: 0 albuterol sulfate 2.5 mg /3 mL (0.083 %) solution for nebulization 3 ml Inhalation Q4H PRN (Reason: Wheezing) RF: 0 diphenoxylate-atropine [Lomotil] 2.5-0.025 mg Tablet 1 tab PO QID PRN (Reason: Diarrhea) RF: 0 verapamil 40 mg tablet 40 mg PO QID RF: 0 torsemide 10 mg Tablet See Rx Instructions .ROUTE .COMPLEX RF: 0 budesonide 0.5 mg/2 mL suspension for nebulization 0.5 mg inhalation Q12 RF: 0 insulin asp prt-insulin aspart [Novolog Mix 70-30FlexPen U-100] 100 unit/mL (70-30) insulin pen 55 unit SUBCUT DAILYBB RF: 0 insulin asp prt-insulin aspart [Novolog Mix 70-30FlexPen U-100] 100 unit/mL (70-30) insulin pen 25 unit SUBCUT DAILYBD RF: 0
[2020-10-31 20:55] LABS: Albumin Level 3.6 gm/dl (3.4-5.0); BUN Creatinine Ratio 21.2 (10-20); Calcium 8.2 mg/dl (8.5-10.1); Creatinine Clr Calc Pharmacy 28.6 ml/min; Est GFR (African American) 33.5; Est GFR (Non-African American) 28.9; Potassium 4.1 mmol/L (3.5-5.1)
[2020-10-31 21:03] LABS: Bilirubin,Total 0.7 mg/dl (0.2-1); Globulin 3.7 gm/dl (2.5-4.0); Total Protein 7.3 gm/dl (6.4-8.2); Troponin I 0.261 ng/ml (0-0.045)
[2020-10-31] MEDS ORDERED: FUROSEMIDE 40 MG/4 ML VIAL IV STA (23:32)
[2020-11-01] MEDS ORDERED: SUMAtriptan succinate 50 MG TAB PO PRN (04:05)
[2020-11-01] MEDS ORDERED: NITROGLYCERIN SL 0.4 MG/TAB TAB SL PRN ×2 (04:05)
[2020-11-01] MEDS ORDERED: DIPHENOXYLATE/ATROPINE 2.5/0.025MG TAB PO PRN (04:05)
[2020-11-01] MEDS ORDERED: ONDANSETRON INJ 2 MG/ML 2 ML VIAL IV PRN (04:05)
[2020-11-01] MEDS ORDERED: ALBUTEROL 0.083% NEBU SOLN 3 ML VIAL INH PRN (04:05)
[2020-11-01] MEDS ORDERED: ALBUTEROL HFA 8 GM INHALER INH PRN (04:05)
[2020-11-01] MEDS ORDERED: ACETAMINOPHEN 325 MG TAB PO PRN (04:05)
[2020-11-01] MEDS ORDERED: CARBOHYDRATES FOR HYPOGLYCEMIA PO PRN (05:15)
[2020-11-01] MEDS ORDERED: GLUCOSE 10 TABS/TUBE PO PRN (05:15)
[2020-11-01] MEDS ORDERED: DEXTROSE 50% 50 ML SYRINGE IV PRN (05:15)
[2020-11-01] MEDS ORDERED: GLUCAGON FOR INJ 1 MG VIAL SQ PRN (05:15)
[2020-11-01] MEDS ORDERED: GLUCOSE 40% GEL 15 GM TUBE PO PRN (05:15)
[2020-11-01 05:54] LABS: Basophils # (auto) 0.01 K/uL (0-0.2); Basophils % (auto) 0.1 %; Eosinophils # (auto) 0.11 K/uL (0-0.5); Hematocrit (blood only) 32.6 % (37-47); Hemoglobin 9.9 g/dL (12.0-16.0); Immature Granulocytes # (auto) 0.02 K/uL (0.00-0.02); Immature Granulocytes % (auto) 0.2 %; Lymphocytes # (auto) 0.99 K/uL (1.2-3.4); Lymphocytes % (auto) 8.7 %; Mean Corpuscular Hemoglobin 25.6 pg (25-34); Mean Corpuscular Hgb Conc 30.4 g/dL (32-36); Mean Corpuscular Volume 84.5 fL (80-100); Monocytes # (auto) 0.57 K/uL (0.11-0.59); Neutrophils # (auto) 9.69 K/uL (1.4-6.5); Platelet Count 293 K/uL (130-400); RDW Coefficient of Variation 18.9 % (11.5-14.5); RDW Standard Deviation 57.9 fL (36.4-46.3); Red Blood Count 3.86 M/uL (4.2-5.4); White Blood Count 11.39 K/uL (4.8-10.8)
[2020-11-01] MEDS: INSULIN ASPART 100 UNITS/ML 3 ML PEN SC SCH ×3 (06:00→18:31)
[2020-11-01 06:38] LABS: BUN Creatinine Ratio 22.8 (10-20); Calcium 8.4 mg/dl (8.5-10.1); Creatinine Clr Calc Pharmacy 32.7 ml/min; Est GFR (African American) 39.6; Est GFR (Non-African American) 34.2; Troponin I 0.285 ng/ml (0-0.045)
[2020-11-01] MEDS: BUDESONIDE 0.5 MG/2 ML VIAL (PULMICORT) INH SCH ×2 (07:11→20:13)
[2020-11-01 08:08] LABS: Magnesium 1.6 mg/dl (1.8-2.4); Potassium 3.4 mmol/L (3.5-5.1)
--- NOTE | 2020-11-01 08:10 | Cardiology Consultation ---
Date of Consultation November 01, 2020 Assessment & Plan (1) Dysphagia: (2) SOB (shortness of breath): (3) Right-sided chest pain: (4) Apical variant hypertrophic cardiomyopathy: (5) Elevated troponin: (6) S/P right coronary artery (RCA) stent placement: The patient seems to have made a rapid turnaround after given IV Lasix. I would continue the IV Lasix through today then consider switching her back to her oral torsemide in the morning. She has chronic elevation of cardiac tropon ins probably secondary to renal insufficiency and her hypertrophic cardiomyopathy. Her chest pain was atypical and that it was in the right upper chest right shoulder area. She is scheduled to undergo a barium swallow by the GI service and we will see what their work-up finds. History of Present Illness Attending Physician: Adsi Christianson MD History of Present Illness This is a 60-year-old female with a history of apical hypertrophic nonobstructive cardiomyopathy with chronic grade 4 diastolic dysfunction. She has had several hospital admissions in the past 6 months. In early July she was admitted and received a stent within the right coronary artery. Her last hospital admission was at the end of September due to bronchitis and a rhinovirus. She presented to the emergency department stating that she felt like she was volume overloaded. She has abdominal bloating and some dysphagia that the GI service is going to work-up with a barium swallow. In regard to chest pain. The pain was over the right chest and right shoulder area and somewhat atypical for cardiac pain. She has received IV diuretics after being admitted and appears comfortable working her mobile device in bed. Past medical history: 1. Apical Hypertrophic nonobstructive cardiomyopathy, severe with markedly reduced LV cavity size , grade 4 diastolic dysfunction 2. Genetic mutation MBC consistent with cardiomyopathy. 3. Status post prophylactic pacer defibrillatorMedtronic, model - Evera MRI XT [id number] implantation, dual chamber, September 01, 2015. 4. Labile hypertension. 5. Obesity. 6. Obstructive sleep apnea/hypoventilation with poor CPAP tolerance on ch ronic nocturnal oxygen supplementation 7. Chronic diastolic heart failure right greater than left 8. Chronic anxiety 9. Admitted to the hospital 07/28/20 with unstable angina, found to have an ostial right coronary artery stenosis and received a drug-eluting stent. Allergies Allergy/AdvReac Type Severity Reaction Status Date / Time Penicillins Allergy Intermediate Flushing, Verified 12/13/20 21:35 Itchiness Sulfa (Sulfonamide Allergy Intermediate Swelling Verified 10/31/20 21:35 Antibiotics) doxycycline Allergy Unknown Unknown Verified 10/31/20 21:35 adhesive AdvReac Intermediate Blistering Verified 10/31/20 21:35 Home Medications Medication Instructions Recorded Confirmed Type duloxetine 60 mg PO QAM 08/09/18 10/31/20 History folic acid 1 mg PO HS 08/09/18 10/31/20 History sumatriptan succinate 50 mg PO DIRECTED PRN 08/09/18 10/31/20 History albuterol sulfate 3 ml INHALATION Q4H PRN 09/09/18 10/31/20 History diphenoxylate-atropine [Lomotil] 1 tab PO QID PRN 12/19/18 10/31/20 History albuterol sulfate [Ventolin HFA] 2 puff INHALATION Q4H PRN 06/30/19 10/31/20 History fluticasone propion-salmeterol 1 inh INHALATION BID 06/30/19 10/31/20 History [Advair Diskus] gabapentin 300 mg PO TID 06/30/19 10/31/20 History nitroglycerin [Nitrostat] 0.4 mg SUBLINGUAL DIRECTED PRN 06/30/19 10/31/20 History ondansetron 4 mg TRANSLINGUAL Q8H PRN 06/30/19 10/31/20 History spironolactone [Aldactone] 25 mg PO QAM 06/30/19 10/31/20 History metoprolol succinate 100 mg PO BID 09/25/19 10/31/20 History mirtazapine 45 mg PO HS 09/25/19 10/31/20 History ropinirole 0.5 mg PO HS 09/25/19 10/31/20 History budesonide 0.5 mg INHALATION Q12 01/13/20 10/31/20 History torsemide See Rx Instructions .ROUTE .COMPLEX 01/13/20 10/31/20 History verapamil 40 mg PO QID 01/13/20 10/31/20 History atorvastatin [Lipitor] 40 mg PO QAM 04/30/20 10/31/20 History insulin asp prt-insulin aspart 25 unit SUBCUT DAILYBD 07/07/20 10/31/20 History [Novolog Mix 70-30FlexPen U-100] insulin asp prt-insulin aspart 55 unit SUBCUT DAILYBB 07/07/20 10/31/20 History [Novolog Mix 70-30FlexPen U-100] Januvia 100 mg PO DAILY 07/28/20 10/31/20 History Lactobacillus acidoph-L.bulgar 1 tab PO TID 07/28/20 10/31/20 History [Floranex] aspirin 81 mg PO DAILY 07/28/20 10/31/20 History isosorbide mononitrate 30 mg PO QAM 07/28/20 10/31/20 History pantoprazole 40 mg PO BID 07/28/20 10/31/20 History clopidogrel 75 mg PO QAM #30 tab 07/30/20 10/31/20 Rx metformin [Glucophage] 500 mg PO BIDM #0 tab 07/30/20 10/31/20 Rx Patient History Medical History (Updated 11/02/20 @ 09:37 by MARA Eaton) Anxiety Arthritis Asthma Cardiac defibrillator in place 2014 CHF (congestive heart failure) CKD (chronic kidney disease), stage III COPD (chronic obstructive pulmonary disease) Depression Depression with anxiety Diabetes mellitus, type 2 Elevated troponin Elevated troponin Fatty (change of) liver, not elsewhere classified GERD (gastroesophageal reflux disease) HLD (hyperlipidemia) Hydronephrosis of right kidney Hypertension Hypertrophic cardiomyopathy CADENCE (obstructive sleep apnea) on nocturnal O2 2L Pancreatic cyst Restless leg syndrome Surgical History H/O section 1979 & 1982 H/O hernia repair 2016 History of appendectomy 1970s History of colostomy reversal bowel perf 2013 with colostomy reversed in 2014 Status post internal cardiac defibrillator procedure "2015" Status post partial resection of colon "diverticulitis 11/05/14" Family History Other Hypertrophic cardiomyopathy Stomach cancer Thyroid disorder Social History Smoking Status: Never smoker Second Hand Exposure: No; Hx Alcohol Use: No Hx Substance Use: No Preferred Language: Eritrean Communication Ability: Effective Tax Professional Required: No Beliefs That Will Affect Care: Orthodoxy Orthodoxy Beliefs: Anabaptism marital status: Current Living Situation: Spouse 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 Other Information That Helps Us Care for You: No Feels Safe at Home: Yes Safety Concerns: Feels Safe At This Time Assistive Devices: Oxygen - Continuous Assistive Devices Comment: 2L O2 at home Review of Systems Review of Systems: All systems reviewed & are unremarkable except as noted in HPI & below Nothing additional to add Physical Exam Physical Exam: General: no acute distress and stated age Head: normocephalic, no masses, lesions, tenderness or abnormalities Eyes: conjunctiva are pink and non-injected, sclera clear Neck: supple, no adenopathy, no bruits, normal jugular venous pulse, no hepatojugular reflux Chest: normal shape and normal respiratory effort Lungs: clear to auscultation and percussion Cardiac Exam: - regular rate & rhythm, no murmurs gallops or rubs - normal S1, normal S2 Pulses: 2(+) throughout Abdomen: abdomen soft, non-tender, no abnormal masses and no hepatosplenomegaly Musculoskeletal: no gait disturbance, no joint inflammation, no deforming arthritis Extremities: no edema and no cyanosis Neuro: grossly normal exam Results & Data ([facility]) Vital Signs (Past 12 Hours) Vital Signs Temp Pulse Pulse Resp BP BP Pulse Ox 11/01/20 07:16 37.0 C 71 20 126/78 97 11/01/20 07:11 78 20 97 11/01/20 04:59 83 11/01/20 04:05 36.9 C 84 22 129/69 95 11/01/20 03:30 74 18 124/60 98 11/01/20 03:01 83 19 96 11/01/20 03:00 74 21 145/84 H 95 11/01/20 02:31 88 22 11/01/20 02:01 85 22 139/108 H 95 11/01/20 02:00 76 27 H 11/01/20 01:30 74 23 126/73 97 11/01/20 01:09 81 79 19 140/76 140/76 94 11/01/20 01:01 75 31 H 96 11/01/20 01:00 78 20 96 10/31/20 23:50 73 18 114/66 100 10/31/20 23:00 81 22 10/31/20 22:31 76 24 103/58 L 96 10/31/20 22:30 74 26 H 92 10/31/20 22:01 75 25 H 10/31/20 22:00 73 22 142/69 H 94 10/31/20 21:32 71 28 H 92 10/31/20 21:31 73 26 H 126/56 L 93 10/31/20 21:00 71 24 133/79 100 10/31/20 20:32 100 10/31/20 20:31 100 10/31/20 20:30 70 20 121/74 100 Laboratory Results Laboratory Results - last 24 hr 10/31/20 10/31/20 10/31/20 20:27 20:27 20:27 WBC 11.48 H RBC 4.09 L Hgb 10.4 L Hct 35.0 L MCV 85.6 MCH 25.4 MCHC 29.7 L RDW Std Deviation 57.9 H RDW Coeff of Rolan 18.9 H Plt Count 279 MPV 9.1 Immature Gran % (Auto) 0.2 Neut % (Auto) 86.1 Lymph % (Auto) 7.6 [place] % (Auto) 5.1 Eos % (Auto) 0.9 Baso % (Auto) 0.1 Neut # (Auto) 9.89 H Lymph # (Auto) 0.87 L [place] # (Auto) 0.59 Eos # (Auto) 0.10 Baso # (Auto) 0.01 Immature Gran # (Auto) 0.02 PT 12.1 H INR 1.2 H APTT 25.7 PTT Ratio 0.9 Sodium 147 H Potassium 4.1 Chloride 111 H Carbon Dioxide 30 Anion Gap 6.0 BUN 39 H Creatinine 1.84 H Est Cr Clr Drug Dosing 28.6 Est GFR ( Amer) 33.5 Est GFR (Non-Af Amer) 28.9 BUN/Creatinine Ratio 21.2 H Glucose 117 H POC Glucose Calcium 8.2 L Magnesium Total Bilirubin 0.7 AST 20 ALT 25 Alkaline Phosphatase 144 H Troponin I 0.261 H* NT-Pro-B Natriuret Pep Total Protein 7.3 Albumin 3.6 Globulin 3.7 Albumin/Globulin Ratio 1.0 COVID-19 Eval Order SARS-CoV-2, RNA, NAAT 10/31/20 10/31/20 10/31/20 20:27 21:19 21:19 WBC RBC Hgb Hct MCV MCH MCHC RDW Std Deviation RDW Coeff of Rolan Plt Count MPV Immature Gran % (Auto) Neut % (Auto) Lymph % (Auto) [place] % (Auto) Eos % (Auto) Baso % (Auto) Neut # (Auto) Lymph # (Auto) [place] # (Auto) Eos # (Auto) Baso # (Auto) Immature Gran # (Auto) PT INR APTT PTT Ratio Sodium Potassium Chloride Carbon Dioxide Anion Gap BUN Creatinine Est Cr Clr Drug Dosing Est GFR ( Amer) Est GFR (Non-Af Amer) BUN/Creatinine Ratio Glucose POC Glucose Calcium Magnesium Total Bilirubin AST ALT Alkaline Phosphatase Troponin I NT-Pro-B Natriuret Pep 6810 H Total Protein Albumin Globulin Albumin/Globulin Ratio COVID-19 Eval [facility] SARS-CoV-2, RNA, NAAT NEGATIVE 11/01/20 11/01/20 11/01/20 04:05 05:34 05:34 WBC 11.39 H RBC 3.86 L Hgb 9.9 L Hct 32.6 L MCV 84.5 MCH 25.6 MCHC 30.4 L RDW Std Deviation 57.9 H RDW Coeff of Rolan 18.9 H Plt Count 293 MPV 9.0 Immature Gran % (Auto) 0.2 Neut % (Auto) 85.0 Lymph % (Auto) 8.7 [place] % (Auto) 5.0 Eos % (Auto) 1.0 Baso % (Auto) 0.1 Neut # (Auto) 9.69 H Lymph # (Auto) 0.99 L [place] # (Auto) 0.57 Eos # (Auto) 0.11 Baso # (Auto) 0.01 Immature Gran # (Auto) 0.02 PT INR APTT PTT Ratio Sodium 147 H Potassium Chloride 109 H Carbon Dioxide 33 H Anion Gap 5.0 BUN 36 H Creatinine 1.60 H Est Cr Clr Drug Dosing 32.7 Est GFR ( Amer) 39.6 Est GFR (Non-Af Amer) 34.2 BUN/Creatinine Ratio 22.8 H Glucose 72 POC Glucose 82 Calcium 8.4 L Magnesium Total Bilirubin AST ALT Alkaline Phosphatase Troponin I 0.285 H* NT-Pro-B Natriuret Pep Total Protein Albumin Globulin Albumin/Globulin Ratio COVID-19 Eval Order SARS-CoV-2, RNA, NAAT 11/01/20 11/01/20 05:47 06:43 WBC RBC Hgb Hct MCV MCH MCHC RDW Std Deviation RDW Coeff of Rolan Plt Count MPV Immature Gran % (Auto) Neut % (Auto) Lymph % (Auto) [place] % (Auto) Eos % (Auto) Baso % (Auto) Neut # (Auto) Lymph # (Auto) [place] # (Auto) Eos # (Auto) Baso # (Auto) Immature Gran # (Auto) PT INR APTT PTT Ratio Sodium Potassium 3.4 L D Chloride Carbon Dioxide Anion Gap BUN Creatinine Est Cr Clr Drug Dosing Est GFR ( Amer) Est GFR (Non-Af Amer) BUN/Creatinine Ratio Glucose POC Glucose 87 Calcium Magnesium 1.6 L Total Bilirubin AST ALT Alkaline Phosphatase Troponin I NT-Pro-B Natriuret Pep Total Protein Albumin Globulin Albumin/Globulin Ratio COVID-19 Eval Order SARS-CoV-2, RNA, NAAT Medications Administered Current Inpatient Medications Acetaminophen (Acetaminophen 325 Mg Tab) 650 mg PO Q4H PRN PRN Reason: Pain or Fever Stop: 12/01/20 04:04 Albuterol (Albuterol 0.083% Nebu Soln 3 Ml Vial) 2.5 mg INH Q4H PRN PRN Reason: Wheezing Stop: 12/01/20 04:04 Albuterol (Albuterol Hfa 8 Gm Inhaler) 2 puffs INH Q4H PRN PRN Reason: Wheezing Stop: 12/01/20 04:04 Aspirin (Aspirin 81 Mg Ectab) 81 mg PO DAILY [facility] Stop: 12/01/20 08:59 Last Admin: 11/01/20 08:57 Dose: 81 mg Documented by: Atorvastatin Calcium (Atorvastatin 40 Mg Tab) 40 mg PO QAM [facility] Stop: 12/01/20 08:59 Last Admin: 11/01/20 08:56 Dose: 40 mg Documented by: Budesonide (Budesonide 0.5 Mg/2 Ml Vial (Pulmicort)) 0.5 mg INH Q12R [facility] Stop: 12/01/20 06:59 Last Admin: 11/01/20 07:11 Dose: 0.5 mg Documented by: Clopidogrel Bisulfate (Clopidogrel Bisulfate 75 Mg Tab) 75 mg PO QAM [facility] Stop: 12/01/20 08:59 Last Admin: 11/01/20 08:56 Dose: 75 mg Documented by: Dextrose (Dextrose 50% 50 Ml Syringe) 25 - 50 ml IV UD PRN; Protocol PRN Reason: Hypoglycemia Protocol Stop: 12/01/20 05:14 Diphenoxylate HCl/Atropine (Diphenoxylate/Atropine 2.5/0.025mg Tab) 1 tab PO QID PRN PRN Reason: Diarrhea Stop: 12/01/20 04:04 Duloxetine HCl (Duloxetine Hcl 60 Mg Cap) 60 mg PO QAM [facility] Stop: 12/01/20 08:59 Last Admin: 11/01/20 08:57 Dose: 60 mg Documented by: Fluticasone/Vilanterol (Fluticasone/Vilanterol 100/25mcg 14 Puffs/Inhaler) 1 puffs INH DAILY [facility] Stop: 12/01/20 08:59 Last Admin: 11/01/20 08:57 Dose: 1 puffs Documented by: Folic Acid (Folic Acid 1 Mg Tab) 1 mg PO HS [facility] Stop: 12/01/20 20:59 Gabapentin (Gabapentin 300 Mg Cap) 300 mg PO TID [facility] Stop: 12/01/20 08:59 Last Admin: 11/01/20 08:56 Dose: 300 mg Documented by: Glucagon (Glucagon For Inj 1 Mg Vial) 1 mg SQ UD PRN; Protocol PRN Reason: Hypoglycemia Protocol Stop: 12/01/20 05:14 Glucose (Glucose 40% Gel 15 Gm Tube) 15 - 30 gm PO UD PRN; Protocol PRN Reason: Hypoglycemia Protocol Stop: 12/01/20 05:14 Glucose (Glucose 10 Tabs/Tube) 4 - 8 tabs PO UD PRN; Protocol PRN Reason: Hypoglycemia Protocol Stop: 12/01/20 05:14 Furosemide 40 mg/ Syringe 4 mls @ 4 mls/min IV QAM [facility] Stop: 12/01/20 08:59 Last Admin: 11/01/20 08:56 Dose: 4 mls/min Documented by: Insulin Aspart (Insulin Aspart 100 Units/Ml 3 Ml Pen) 0 units SC Q6 [facility] Stop: 12/01/20 05:59 Last Admin: 11/01/20 06:00 Dose: Not Given Documented by: Insulin Glargine (Insulin Glargine Solostar 100 Units/Ml 3 Ml Pen) 15 units SC BID [facility] Stop: 12/01/20 08:59 Last Admin: 11/01/20 09:58 Dose: Not Given Documented by: Isosorbide Mononitrate (Isosorbide [place] Extended Rel 30 Mg Tabcr) 30 mg PO QAM [facility] Stop: 12/01/20 08:59 Last Admin: 11/01/20 08:57 Dose: 30 mg Documented by: Lactobacillus Acidoph/Casei/Rhamnos (Advanced Probiotic 1250 Mg Capsule) 2 cap PO TID [facility] Stop: 12/01/20 08:59 Last Admin: 11/01/20 08:56 Dose: 2 cap Documented by: Metoprolol Succinate (Metoprolol Succ 50mg Ext Rel Tab) 100 mg PO BID [facility] Stop: 12/01/20 08:59 Last Admin: 11/01/20 08:56 Dose: 100 mg Documented by: Mirtazapine (Mirtazapine Soltab 15 Mg) 45 mg PO HS [facility] Stop: 12/01/20 20:59 Miscellaneous (Carbohydrates For Hypoglycemia ) 15 - 30 gm PO UD PRN PRN Reason: Hypoglycemia Treatment Stop: 12/01/20 05:14 Nitroglycerin (Nitroglycerin Sl 0.4 Mg/Tab Tab) 0.4 mg SL UD PRN PRN Reason: Chest Pain Stop: 12/01/20 04:04 Ondansetron HCl (Ondansetron Inj 2 Mg/Ml 2 Ml Vial) 4 mg IV Q6H PRN PRN Reason: Nausea Stop: 12/01/20 04:04 Pantoprazole Sodium (Pantoprazole 40 Mg Tab) 40 mg PO BID [facility] Stop: 12/01/20 08:59 Last Admin: 11/01/20 08:58 Dose: 40 mg Documented by: Ropinirole HCl (Ropinirole Hcl 0.25 Mg Tablet) 0.5 mg PO HS [facility] Stop: 12/01/20 20:59 Spironolactone (Spironolactone 25 Mg Tab) 25 mg PO QAM [facility] Stop: 12/01/20 08:59 Last Admin: 11/01/20 08:57 Dose: 25 mg Documented by: Sumatriptan Succinate (Sumatriptan Succinate 50 Mg Tab) 50 mg PO PRN PRN PRN Reason: Migraine Headache Stop: 12/01/20 04:04 Verapamil HCl (Verapamil Hcl 40 Mg Tab) 40 mg PO QID [facility] Stop: 12/01/20 08:59 Last Admin: 11/01/20 08:57 Dose: 40 mg Documented by:
[2020-11-01] MEDS ORDERED: POTASSIUM CHLORIDE CRTAB 20 MEQ TABCR PO ONE (08:14)
--- NOTE | 2020-11-01 08:17 | XRay Report ---
XR chest 1V portable HISTORY: Atypical Chest Pain COMPARISON: Chest 09/27/2020. FINDINGS: Cardiac silhouette remains moderately enlarged. There is a right-sided pacemaker/defibrilla tor. No pneumothorax. No pleural effusions. There is mild central pulmonary vascular congestion witho ut overt edema. This has improved. IMPRESSION: Stable cardiomegaly with improvement in the mild pulmonary vascular congestion. ACT 112: Negative or not required by law. Electronically signed by: Serg Arias M.D. 11/01/2020 8:16 AM
[2020-11-01] MEDS: FUROSEMIDE 40 MG in SYRINGE 0 ML IV SCH (08:56)
[2020-11-01] MEDS: GABAPENTIN 300 MG CAP PO SCH ×3 (08:56→20:40)
[2020-11-01] MEDS: ADVANCED PROBIOTIC 1250 MG CAPSULE PO SCH ×3 (08:56→20:39)
[2020-11-01] MEDS: METOPROLOL SUCC 50MG EXT REL TAB PO SCH ×2 (08:56→20:39)
[2020-11-01] MEDS: CLOPIDOGREL BISULFATE 75 MG TAB PO SCH (08:56)
[2020-11-01] MEDS: ATORVASTATIN 40 MG TAB PO SCH (08:56)
[2020-11-01] MEDS: FLUTICASONE/VILANTEROL 100/25MCG 14 PUFFS/INHALER INH SCH (08:57)
[2020-11-01] MEDS: VERAPAMIL HCL 40 MG TAB PO SCH ×4 (08:57→20:39)
[2020-11-01] MEDS: SPIRONOLACTONE 25 MG TAB PO SCH (08:57)
[2020-11-01] MEDS: ASPIRIN 81 MG ECTAB PO SCH (08:57)
[2020-11-01] MEDS: ISOSORBIDE MONO EXTENDED REL 30 MG TABCR PO SCH (08:57)
[2020-11-01] MEDS: DULoxetine HCL 60 MG CAP PO SCH (08:57)
[2020-11-01] MEDS: PANTOprazole 40 MG TAB PO SCH ×2 (08:58→20:39)
[2020-11-01] MEDS ORDERED: FUROSEMIDE 40 MG/4 ML VIAL IV SCH (09:00)
--- NOTE | 2020-11-01 09:56 | Gastrointestinal Consultation ---
Date of Consultation November 01, 2020 Assessment & Plan (1) Dysphagia: Dysphagia is likely secondary to esophageal dysmotility, though stricture, esophagitis are also considered. - Barium swallow - Further recommendations to follow barium swallow. 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 Most recent CT with 2.5cm panc head/body lesion. Rin nguyen on availability of facilities during COVID pandemis, will try to arrange EGD/EUS, likely as an OP. . Present on Admission?: Yes Supervising Physician Co-Signing Physician Notes I performed a history and physical examination of the patient today, including specifically on physical exam - soft abdomen. I have discussed the patient's management with the advanced practitioner. Please refer to the nurse practitioner's note for the documented findings and plan of care. Patient with intermittent dysphagia with no other alarm symptoms, admitted for SOB and respiratory issues. Recommend: Obtain esophagogram for now, if no obstruction noted then will arrange EGD/EUS to follow up on the HOP cyst as OP. If Esophagogram shows obstruction then will arrange endoscopy as inpatient. History of Present Illness Reason for Consultation: "Odynophagia" Requesting Physician: Dr. Dexter Attending Physician: Adis Christianson MD History of Present Illness Ms. Kalie Velasquez is a 60 yr old female pt of Dr. Alvaro De León with a hx of obstructive cardiomyopathy, Diastolic CHF, with implanted pacer/defibrillator, HTN, Obesity, COPD, CADENCE, CKD-3, anxiety who was admitted today for SOB. GI is consulted for odynophagia. However, the pt denies any pain on swallowing. She do es have intermittent issues with feeling like food get delayed in the upper chest area after swallowing. This has been present for approx 2 yrs. She denies any recent worsening. No cough/gagging during the swallow. No melena, hematochezia, nausea, vomiting or weight loss. Allergies Allergy/AdvReac Type Severity Reaction Status Date / Time Penicillins Allergy Intermediate Flushing, Verified 10/31/20 21:35 Itchiness Sulfa (Sulfonamide Allergy Intermediate Swelling Verified 10/31/20 21:35 Antibiotics) doxycycline Allergy Unknown Unknown Verified 10/31/20 21:35 adhesive AdvReac Intermediate Blistering Verified 10/31/20 21:35 Home Medications Medication Instructions Recorded Confirmed Type duloxetine 60 mg PO QAM 08/09/18 10/31/20 History folic acid 1 mg PO HS 08/09/18 10/31/20 History sumatriptan succinate 50 mg PO DIRECTED PRN 08/09/18 10/31/20 History albuterol sulfate 3 ml INHALATION Q4H PRN 09/09/18 10/31/20 History diphenoxylate-atropine [Lomotil] 1 tab PO QID PRN 12/19/18 10/31/20 History albuterol sulfate [Ventolin HFA] 2 puff INHALATION Q4H PRN 06/30/19 10/31/20 History fluticasone propion-salmeterol 1 inh INHALATION BID 06/30/19 10/31/20 History [Advair Diskus] gabapentin 300 mg PO TID 06/30/19 10/31/20 History nitroglycerin [Nitrostat] 0.4 mg SUBLINGUAL DIRECTED PRN 06/30/19 10/31/20 History ondansetron 4 mg TRANSLINGUAL Q8H PRN 06/30/19 10/31/20 History spironolactone [Aldactone] 25 mg PO QAM 06/30/19 10/31/20 History metoprolol succinate 100 mg PO BID 09/25/19 10/31/20 History mirtazapine 45 mg PO HS 09/25/19 10/31/20 History ropinirole 0.5 mg PO HS 09/25/19 10/31/20 History budesonide 0.5 mg INHALATION Q12 01/13/20 10/31/20 History torsemide See Rx Instructions .ROUTE .COMPLEX 01/13/20 10/31/20 History verapamil 40 mg PO QID 01/13/20 10/31/20 History atorvastatin [Lipitor] 40 mg PO QAM 04/30/20 10/31/20 History insulin asp prt-insulin aspart 25 unit SUBCUT DAILYBD 07/07/20 10/31/20 History [Novolog Mix 70-30FlexPen U-100] insulin asp prt-insulin aspart 55 unit SUBCUT DAILYBB 07/07/20 10/31/20 History [Novolog Mix 70-30FlexPen U-100] Januvia 100 mg PO DAILY 07/28/20 10/31/20 History Lactobacillus acidoph-L.bulgar 1 tab PO TID 07/28/20 10/31/20 History [Floranex] aspirin 81 mg PO DAILY 07/28/20 10/31/20 History isosorbide mononitrate 30 mg PO QAM 07/28/20 10/31/20 History pantoprazole 40 mg PO BID 07/28/20 10/31/20 History clopidogrel 75 mg PO QAM #30 tab 07/30/20 10/31/20 Rx metformin [Glucophage] 500 mg PO BIDM #0 tab 07/30/20 10/31/20 Rx Patient History Medical History Anxiety Arthritis Asthma Cardiac defibrillator in place 2014 CHF (congestive heart failure) CKD (chronic kidney disease), stage III COPD (chronic obstructive pulmonary disease) Depression Depression with anxiety Diabetes mellitus, type 2 Elevated troponin Elevated troponin Fatty (change of) liver, not elsewhere classified GERD (gastroesophageal reflux disease) HLD (hyperlipidemia) Hydronephrosis of right kidney Hypertension Hypertrophic cardiomyopathy CADENCE (obstructive sleep apnea) on nocturnal O2 2L Pancreatic cyst Restless leg syndrome Surgical History H/O section 1979 & 1982 H/O hernia repair 2016 History of appendectomy 1970s History of colostomy reversal bowel perf 2013 with colostomy reversed in 2014 Status post internal cardiac defibrillator procedure "2015" Status post partial resection of colon "diverticulitis 11/05/14" Family History Other Hypertrophic cardiomyopathy Stomach cancer Thyroid disorder Social History Smoking Status: Never smoker Second Hand Exposure: No; Hx Alcohol Use: No Hx Substance Use: No Preferred Language: Croatian Communication Ability: Effective [place] Required: No Beliefs That Will Affect Care: Episcopal Episcopal Beliefs: Congregational marital status: Current Living Situation: Spouse 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 Other Information That Helps Us Care for You: No Feels Safe at Home: Yes Safety Concerns: Feels Safe At This Time Assistive Devices: Glasses and Oxygen - Continuous Assistive Devices Comment: 2L O2 at home Review of Systems Review of Systems: ROS: Gen: Denies weakness, fevers, weight loss Eyes: No eye redness, or pain, no recent vision changes Resp:+ SOB Cardio: No palpitations/irregular beats, no chest pain GI: See HPI : Denies pain on urination Skin: No jaundice, itching or new rashes Physical Exam Constitutional: WD/WN, vitals as above + ill appearing (chronically ) and + obese Eyes: PERRL, conjunctivae normal, anicteric sclerae ENMT: external ear and nose normal, oropharynx normal Neck: trachea midline, no thyromegaly Respiratory: No crackles or wheezes but poor aeration to the bases, pt with mild respiratory effor with O2 sat 97% on 4L O2 by NC. Cardiovascular: RRR, no murmur, no edema Gastrointestinal (Abdomen): Inspection/Auscultation: abdomen normal to inspection (though obese) Skin: no rashes, warm and dry Neurologic: PERRL, EOMI, accommodation nl, no face palsy, no dysarthria Psychiatric: A+Ox3, euthymic affect Lymphatic: no cervical or axillary lymphadenopathy Results & Data ([facility]) Vital Signs (Past 12 Hours) Vital Signs Temp Pulse Pulse Resp BP BP Pulse Ox 11/01/20 07:20 78 11/01/20 07:16 37.0 C 71 20 126/78 97 11/01/20 07:11 78 20 97 11/01/20 04:59 83 11/01/20 04:05 36.9 C 84 22 129/69 95 11/01/20 03:30 74 18 124/60 98 11/01/20 03:01 83 19 96 11/01/20 03:00 74 21 145/84 H 95 11/01/20 02:31 88 22 11/01/20 02:01 85 22 139/108 H 95 11/01/20 02:00 76 27 H 11/01/20 01:30 74 23 126/73 97 11/01/20 01:09 81 79 19 140/76 140/76 94 11/01/20 01:01 75 31 H 96 11/01/20 01:00 78 20 96 10/31/20 23:50 73 18 114/66 100 10/31/20 23:00 81 22 10/31/20 22:31 76 24 103/58 L 96 10/31/20 22:30 74 26 H 92 10/31/20 22:01 75 25 H 10/31/20 22:00 73 22 142/69 H 94 Laboratory Results WBC 11.39, Hb 9.9, Hct 32.6, plats 293, Na 147, K 3.4, BUN 36, K 1.6. Diagnostic Findings CXR: Stable cardiomegaly with improvement in the mild pulmonary vascular congestion.
[2020-11-01] MEDS: INSULIN GLARGINE SOLOSTAR 100 UNITS/ML 3 ML PEN SC SCH ×2 (09:58→20:49)
--- NOTE | 2020-11-01 10:16 | History and Physical Report ---
DATE OF ADMISSION: 11/01/2020 CHIEF COMPLAINT: Chest pain, shortness of breath. HISTORY OF PRESENT ILLNESS: This 60-year-old female with past medical history significant for diabetes, chronic respiratory failure with hypoxia on 2 liters oxygen, history of obstructive sleep apnea, history of hypertrophic cardiomyopathy, status post ICD defibrillator, chronic diastolic CHF, hypertension, history of coronary artery disease, chronic kidney disease stage III, irritable bowel syndrome, morbid obesity, migraines, depression, who lives at home, comes in because of shortness of breath. She also had episode of chest pain earlier and it was relieved with 2 nitroglycerin, currently she does not have any chest pain. She says she is gaining some weight and she is also following [facility] at home and then were adjusting her diuretics, but she says she is still feeling short of breath and that is the reason, she came here and also complains of some increasing edema in lower extremity. Currently, the patient seems stable, saturating fine at rest but while talking her sats are dropping down to 80s. Says she has cough going on for several weeks. She was recently in the hospital with rhinovirus infection. She said all the family is sick, but no one is tested positive for COVID. Her COVID test was negative in the ER. Denies any fever, chills, no headache, no blurred vision, no earache, no runny nose. She has complaints of severe sore throat, pain in the throat; even drinking water or eating any food causes of pain in her throat. She is nauseous, but no vomiting, no abdominal pain. Normal bowel movements. She says she is not urinating much. Appetite is okay. ALLERGIES: PENICILLIN, SULFA, ANTIBIOTICS, DOXYCYCLINE, ADHESIVES. PAST MEDICAL HISTORY: As mentioned above. PAST SURGICAL HISTORY: Bilateral carpal tunnel surgery, C-sections, partial removal of colon, reversal of Gerard's procedure, colonoscopy, EGD with endoscopic ultrasound, ICD placement, appendectomy, right trigger finger release. MEDICATIONS: The patient is on albuterol 2 puffs inhalation q. 4 hours p.r.n., aspirin 81 mg p.o. daily, Lipitor 40 mg p.o. a.m., budesonide 0.5 mg inhalation q. 12 hours, Plavix 75 mg p.o. a.m., Lomotil 1 tablet p.o. q.i.d. p.r.n., duloxetine 60 mg p.o. a.m., Advair Diskus 1 inhalation b.i.d., folic acid 1 mg at bedtime, gabapentin 300 mg p.o. b.i.d., NovoLog mix 70/30, 55 units daily before breakfast and 25 units before dinner, isosorbide mononitrate 30 mg p.o. a.m., Januvia 100 mg p.o. daily, lactobacillus 1 tablet p.o. t.i.d., metformin 500 mg p.o. b.i.d., metoprolol succinate 100 mg p.o. b.i.d., Remeron 45 mg at bedtime, nitroglycerin 0.4 mg sublingual p.r.n., Zofran 0.4 mg sublingual q. 8 hours p.r.n., Protonix 40 mg p.o. b.i.d., allopurinol 0.5 mg p.o. at bedtime, Aldactone 25 mg p.o. a.m., sumatriptan 50 mg p.o. p.r.n., torsemide 10 and 20 mg alternating, verapamil 40 mg p.o. q.i.d. FAMILY HISTORY: Significant for daughter has arthritis, stomach cancer, seizures, mother has arthritis, thyroid disorder, hyperlipidemia, hypertension. Father has hypertensive cardiomyopathy, at age of 56. SOCIAL HISTORY: and lives with her family. No smoking, no alcohol, no drug use. REVIEW OF SYMPTOMS: As per HPI. Rest of review of symptoms negative. PHYSICAL EXAMINATION: GENERAL: The patient is obese, not in acute distress. VITAL SIGNS: Temperature 37, pulse 78, respiratory rate 20, blood pressure 126/78, oxygen 97% on 4 liters. HEENT: Pupils equal, round, reactive to light. Oral mucosa moist. NECK: No neck masses seen. CARDIOVASCULAR: S1, S2 heard, regular rate and rhythm, no murmur, no gallop. RESPIRATORY SYSTEM: Normal AP diameter. No accessory muscle use. No wheezing, no crackles. ABDOMEN: Soft, bowel sounds present, nontender. No distention. CENTRAL NERVOUS SYSTEM: Cranial nerves II-XII grossly intact, nonfocal. EXTREMITIES: Mild pedal edema, no erythema seen. LABORATORY DATA: WBC 11.4, hemoglobin 10.4, hematocrit 35, platelets 279. PT 12.1, INR 1.2, APTT 25.7. Sodium 147, potassium 4.1, chloride 111, bicarbonate 30, BUN 39, creatinine 1.8, serum glucose 117, calcium 8.2, total bilirubin 0.7, AST 20, ALT 25, alkaline phosphatase 144. Troponin 0.2. BNP 6800. SARS-CoV-2 negative. Chest x-ray, stable mild pulmonary vascular congestion. EKG: Normal sinus rhythm, rate of 86, prolonged QT at 497, left ventricular hypertrophy seen. ASSESSMENT AND PLAN: This is 60-year-old female with past medical history significant for chronic diastolic congestive heart failure, hypertrophic cardiomyopathy, diabetes, chronic respiratory failure, comes because of shortness of breath and chest pain. 1. Shortness of breath, Acute on chronic diastolic congestive heart failure. Received dose of IV Lasix 80 mg in the ER. We will continue with IV 40 Lasix daily. Hold her home torsemide. Continue her Toprol-XL, Imdur and consult Cardiology for further recommendation.Daily weights and i/o,s. 2. Chronic respiratory failure, on oxygen 2 liters at home. 3. Chest pain, history of coronary artery disease, troponins are chronically elevated. Currently, troponin 0.2. We will follow serial enzymes. Currently, chest pain free and on EKG no acute ST changes. Continue her home Toprol-XL, statin and aspirin. We will monitor. Cardiology consulted. 4. Hypertrophic cardiomyopathy status post AICD. 5. Hypertension. Continue home medication of Toprol-XL, Imdur, diuretics, spironolactone and verapamil. We will monitor the blood pressure. 6. History of depression. Continue duloxetine and Remeron. 7. Obstructive sleep apnea, could not tolerate CPAP in the past. 8. Acute kidney injury and chronic kidney disease stage III, baseline creatinine around 1.6, Today Cr of 1.8, getting IV Lasix. We will follow the labs. 9. Diabetes. Currently, the patient is n.p.o. Holding her NovoLog 70/30 mix, and home insulin sliding scale and Januvia. Placed on Lantus 15 units b.i.d. and insulin sliding scale. We will monitor the blood sugars and adjust the insulin regimen. 10.Odynophagia.Says even drinking water causing severe pain in throat. No obvious thrush on exam. Consulted GI. 11. Deep venous thrombosis prophylaxis, sequential compression devices for now. 12. Disposition: Closely monitor in tele floor. Level 1 full code. MTDD
--- NOTE | 2020-11-01 19:38 | Electrocardiogram Report ---
Test Reason : Blood Pressure : / mmHG Vent. Rate : 086 BPM Atrial Rate : 086 BPM P-R Int : 152 ms QRS Dur : 092 ms QT Int : 416 ms P-R-T Axes : 000 000 103 degrees QTc Int : 497 ms Poor data quality, interpretation may be adversely affected Normal sinus rhythm Left ventricular hypertrophy with repolarization abnormality Prolonged QT Abnormal ECG When compared with ECG of 27-SEP-2020 13:21, QT has lengthened Confirmed by Jaycob Melo ([id number]) on 11/01/2020 7:38:17 PM Referred By: REFERRED SELF Confirmed By:Jaycob Mleo
[2020-11-01] MEDS: rOPINIRole HCL 0.25 MG TABLET PO SCH (20:39)
[2020-11-01] MEDS: MIRTAZAPINE SOLTAB 15 MG PO SCH (20:39)
[2020-11-01] MEDS: FOLIC ACID 1 MG TAB PO SCH (20:39)
--- NOTE | 2020-11-01 22:40 | Hospitalist Progress Note ---
Date of Service November 01, 2020 Assessment & Plan (1) Right-sided chest pain: (2) Diastolic CHF, acute on chronic: (3) CAD (coronary artery disease), [place] coronary artery: (4) Dysphagia: (5) COVID-19 ruled out: (6) DVT prophylaxis: (7) Discharge planning issues: Admission and Anticipated Discharge Date Admission Date: November 01, 2020 Subjective Admitted early this morning with chest pain and CHF. Has diuresed, but still SOB. GI consulted for dysphagia. Physical Exam Constitutional: no acute distress Eyes: + anicteric sclerae Respiratory: Auscultation: + rales (few) Cardiovascular: Rate/Rhythm: regular rate and regular rhythm Vessels: + JVD Extremities: + edema (1+ pretibial); no calf tenderness Gastrointestinal (Abdomen): normal bowel sounds, soft, nontender, no hepatosplenomegaly Musculoskeletal: Extremities: no cyanosis Skin: no rashes, warm and dry Psychiatric: Orientation: alert and oriented x 3 Results & Data Results & Data ([facility]) Vital Signs (Past 12 Hours) Vital Signs Temp Pulse Pulse Pulse Resp BP Pulse Ox 11/01/20 20:16 77 18 97 11/01/20 19:55 36.5 C 83 17 124/75 91 11/01/20 15:07 37.0 C 72 17 106/64 96 11/01/20 15:00 79 11/01/20 11:59 37.0 C 69 19 103/61 95 Laboratory Results Laboratory Results - last 24 hr 11/01/20 11/01/20 11/01/20 04:05 05:34 05:34 WBC 11.39 H RBC 3.86 L Hgb 9.9 L Hct 32.6 L MCV 84.5 MCH 25.6 MCHC 30.4 L RDW Std Deviation 57.9 H RDW Coeff of Rolan 18.9 H Plt Count 293 MPV 9.0 Immature Gran % (Auto) 0.2 Neut % (Auto) 85.0 Lymph % (Auto) 8.7 [place] % (Auto) 5.0 Eos % (Auto) 1.0 Baso % (Auto) 0.1 Neut # (Auto) 9.69 H Lymph # (Auto) 0.99 L [place] # (Auto) 0.57 Eos # (Auto) 0.11 Baso # (Auto) 0.01 Immature Gran # (Auto) 0.02 Sodium 147 H Potassium Chloride 109 H Carbon Dioxide 33 H Anion Gap 5.0 BUN 36 H Creatinine 1.60 H Est Cr Clr Drug Dosing 32.7 Est GFR ( Amer) 39.6 Est GFR (Non-Af Amer) 34.2 BUN/Creatinine Ratio 22.8 H Glucose 72 POC Glucose 82 Calcium 8.4 L Magnesium Troponin I 0.285 H* 11/01/20 11/01/20 11/01/20 05:47 06:43 10:59 WBC RBC Hgb Hct MCV MCH MCHC RDW Std Deviation RDW Coeff of Rolan Plt Count MPV Immature Gran % (Auto) Neut % (Auto) Lymph % (Auto) [place] % (Auto) Eos % (Auto) Baso % (Auto) Neut # (Auto) Lymph # (Auto) [place] # (Auto) Eos # (Auto) Baso # (Auto) Immature Gran # (Auto) Sodium Potassium 3.4 L D Chloride Carbon Dioxide Anion Gap BUN Creatinine Est Cr Clr Drug Dosing Est GFR ( Amer) Est GFR (Non-Af Amer) BUN/Creatinine Ratio Glucose POC Glucose 87 Calcium Magnesium 1.6 L Troponin I 0.350 H* 11/01/20 11/01/20 11:46 18:10 WBC RBC Hgb Hct MCV MCH MCHC RDW Std Deviation RDW Coeff of Rolan Plt Count MPV Immature Gran % (Auto) Neut % (Auto) Lymph % (Auto) [place] % (Auto) Eos % (Auto) Baso % (Auto) Neut # (Auto) Lymph # (Auto) [place] # (Auto) Eos # (Auto) Baso # (Auto) Immature Gran # (Auto) Sodium Potassium Chloride Carbon Dioxide Anion Gap BUN Creatinine Est Cr Clr Drug Dosing Est GFR ( Amer) Est GFR (Non-Af Amer) BUN/Creatinine Ratio Glucose POC Glucose 82 78 Calcium Magnesium Troponin I ECG Additional Comments: EKG performed at 0633 reviewed and demonstrated probable SR at 80 / min, PVC's, NSSTTWAs. (1) CAD (coronary artery disease), [place] coronary artery [place] vs. transplanted heart: [place] heart Associated angina: with unstable angina Qualified Code(s): I25.110 - Atherosclerotic heart disease of [place] coronary artery with unstable angina pectoris
[2020-11-02] MEDS: INSULIN ASPART 100 UNITS/ML 3 ML PEN SC SCH ×4 (00:24→19:02)
--- NOTE | 2020-11-02 03:18 | History and Physical Report ---
Jc h and P. Thank you FIDE
--- NOTE | 2020-11-02 05:20 | Electrocardiogram Report ---
Test Reason : Blood Pressure : / mmHG Vent. Rate : 078 BPM Atrial Rate : 000 BPM P-R Int : 200 ms QRS Dur : 092 ms QT Int : 378 ms P-R-T Axes : 000 004 120 degrees QTc Int : 430 ms Sinus rhythm with occasional Premature ventricular complexes Left ventricular hypertrophy with repolarization abnormality Abnormal ECG When compared with ECG of 31-OCT-2020 20:04, QT has shortened Confirmed by Jaycob Melo ([id number]) on 11/02/2020 5:20:11 AM Referred By: REFERRED SELF Confirmed By:Jaycob Melo
[2020-11-02 07:04] LABS: BUN Creatinine Ratio 26.4 (10-20); Calcium 9.1 mg/dl (8.5-10.1); Creatinine Clr Calc Pharmacy 32.3 ml/min; Est GFR (Non-African American) 33.7; Potassium 3.6 mmol/L (3.5-5.1)
[2020-11-02] MEDS: BUDESONIDE 0.5 MG/2 ML VIAL (PULMICORT) INH SCH ×2 (07:09→19:34)
[2020-11-02] MEDS: FLUTICASONE/VILANTEROL 100/25MCG 14 PUFFS/INHALER INH SCH (08:25)
[2020-11-02] MEDS: FUROSEMIDE 40 MG in SYRINGE 0 ML IV SCH (08:26)
[2020-11-02] MEDS: ISOSORBIDE MONO EXTENDED REL 30 MG TABCR PO SCH (08:27)
[2020-11-02] MEDS: ATORVASTATIN 40 MG TAB PO SCH (08:27)
[2020-11-02] MEDS: VERAPAMIL HCL 40 MG TAB PO SCH ×4 (08:27→20:28)
[2020-11-02] MEDS: METOPROLOL SUCC 50MG EXT REL TAB PO SCH ×2 (08:27→20:26)
[2020-11-02] MEDS: PANTOprazole 40 MG TAB PO SCH ×2 (08:27→20:26)
[2020-11-02] MEDS: DULoxetine HCL 60 MG CAP PO SCH (08:27)
[2020-11-02] MEDS: CLOPIDOGREL BISULFATE 75 MG TAB PO SCH (08:27)
[2020-11-02] MEDS: GABAPENTIN 300 MG CAP PO SCH ×3 (08:27→20:27)
[2020-11-02] MEDS: ASPIRIN 81 MG ECTAB PO SCH (08:27)
[2020-11-02] MEDS: ADVANCED PROBIOTIC 1250 MG CAPSULE PO SCH ×3 (08:28→20:28)
[2020-11-02] MEDS: SPIRONOLACTONE 25 MG TAB PO SCH (08:28)
[2020-11-02] MEDS: INSULIN GLARGINE SOLOSTAR 100 UNITS/ML 3 ML PEN SC SCH ×2 (09:28→21:10)
--- NOTE | 2020-11-02 09:32 | Gastroenterology Progress Note ---
Date of Service November 02, 2020 Assessment & Plan (1) Dysphagia: Barium swallow scheduled for today at 11AM. I understand that video swallow was also scheduled by primary hospitalist. Keep NPO until these procedures. Recommendations after results are reviewed. EGD may be completed here during this stay if abnormalities on barium swallow. If no abnormalities then will plan for EGD/EUS as OP to eval the dysphagia and hx of pancreatic cyst. Present on Admission?: Yes Admission and Anticipated Discharge Date Admission Date: November 01, 2020 Supervising Physician Co-Signing Physician Notes I performed a history and physical examination of the patient today, including specifically on physical exam - soft abdomen. I have discussed the patient's management with the advanced practitioner. Please refer to the nurse practitioner's note for the documented findings and plan of care. Barium pill stuck above GEJ. Plan EGD/EUS tomorrow. Subjective 60 yr old female with hx of obstructive cardiomyopathy, Diastolic CHF, with implanted pacer/defibrillator, HTN, Obesity, COPD, CADENCE, CKD-3, anxiety Admitted early yesterday for SOB and GI consulted for chronic dysphagia. Pt feeling better this morning, back to baseline breathing. No SOB and saturating well (99%) on 3L O2 by NC. Review of Systems Review of Systems: ROS: Gen: Denies weakness, fevers, weight loss Eyes: No eye redness, or pain, no recent vision changes Resp:+ SOB - much improved Cardio: No palpitations/irregular beats, no chest pain GI: See HPI : Denies pain on urination Skin: No jaundice, itching or new rashes Physical Exam Constitutional: WD/WN, vitals as above + obese Eyes: PERRL, conjunctivae normal, anicteric sclerae ENMT: external ear and nose normal, oropharynx normal Neck: trachea midline, no thyromegaly Cardiovascular: RRR, no murmur, no edema Gastrointestinal (Abdomen): Inspection/Auscultation: abdomen normal to inspection (though obese) Skin: no rashes, warm and dry Neurologic: PERRL, EOMI, accommodation nl, no face palsy, no dysarthria Psychiatric: A+Ox3, euthymic affect Lymphatic: no cervical or axillary lymphadenopathy Results & Data ([facility]) Vital Signs (Past 12 Hours) Vital Signs Temp Pulse Pulse Resp BP BP Pulse Ox 11/02/20 07:43 36.5 C 78 18 145/76 H 99 11/02/20 07:11 77 20 94 11/02/20 07:00 72 11/02/20 04:18 36.6 C 71 18 120/64 92 11/01/20 23:01 36.9 C 78 17 130/78 91
--- NOTE | 2020-11-02 10:31 | Fluoroscopy Report ---
DOUBLE CONTRAST BARIUM ESOPHAGRAM CLINICAL HISTORY: Dysphagia. COMPARISON STUDY: No priors. TECHNIQUE: A standard air contrast barium esophagram is performed. Multiple spot images of the esopha everette are acquired both upright and prone. There were technical issues with saving images. The examinat ion was observed in real-time by the interpreting radiologist. FINDINGS: The patient swallowed barium without difficulty. The barium pill became lodged in the dista l esophagus. The mucosal pattern is normal. There is no evidence of intrinsic or extrinsic mass lesio n. There is no stricture. Mild to moderate dysmotility is observed. No aspiration was seen. The yolanda roesophageal junction distended normally. No gastroesophageal reflux could be elicited by having the patient perform the Valsalva maneuver. Survey images of the stomach showed gastric fold thickening. P acemaker leads are noted. Fluoroscopy time: 2.1 minutes. Fluoroscopic images: 8 IMPRESSION: 1. Esophageal dysmotility. 2. The barium pill became lodged in the distal esophagus. 3. Gastric fold thickening suggests gastritis. Clinical correlation will be required. ACT 112: Negative or not required by law. Electronically signed by: Jorge Avila M.D. 11/02/2020 10:30 AM
--- NOTE | 2020-11-02 11:16 | Cardiology Progress Note ---
Date of Service November 02, 2020 Assessment & Plan (1) Dysphagia: (2) SOB (shortness of breath): (3) Right-sided chest pain: (4) Apical variant hypertrophic cardiomyopathy: (5) Elevated troponin: (6) S/P right coronary artery (RCA) stent placement: I will await the GI service to comment regarding the patient's barium swallow. Report is on the chart. I will stop her IV diuretics today and place her back on her home oral dose of torsemide. Admission and Anticipated Discharge Date Admission Date: November 01, 2020 Subjective The patient just returned from her barium swallow. She has no new cardiac complaints. Review of Systems Review of Systems: All systems reviewed & are unremarkable except as noted in HPI & below Nothing additional to add. Physical Exam Physical Exam: General: no acute distress and stated age Head: normocephalic, no masses, lesions, tenderness or abnormalities Eyes: conjunctiva are pink and non-injected, sclera clear Neck: supple, no adenopathy, no bruits, normal jugular venous pulse, no hepatojugular reflux Chest: normal shape and normal respiratory effort Lungs: clear to auscultation and percussion Cardiac Exam: - regular rate & rhythm, no murmurs gallops or rubs - normal S1, normal S2 Pulses: 2(+) throughout Abdomen: abdomen soft, non-tender, no abnormal masses and no hepatosplenomegaly Musculoskeletal: no gait disturbance, no joint inflammation, no deforming arthritis Extremities: no edema and no cyanosis Neuro: grossly normal exam Results & Data ([facility]) Vital Signs (Past 12 Hours) Vital Signs Temp Pulse Pulse Resp BP BP Pulse Ox 11/02/20 07:43 36.5 C 78 18 145/76 H 99 11/02/20 07:11 77 20 94 11/02/20 07:00 72 11/02/20 04:18 36.6 C 71 18 120/64 92 Laboratory Results Laboratory Results - last 24 hr 11/01/20 11/01/20 11/01/20 10:59 11:46 18:10 Sodium Potassium Chloride Carbon Dioxide Anion Gap BUN Creatinine Est Cr Clr Drug Dosing Est GFR ( Amer) Est GFR (Non-Af Amer) BUN/Creatinine Ratio Glucose POC Glucose 82 78 Calcium Troponin I 0.350 H* 11/02/20 11/02/20 11/02/20 00:22 05:48 06:16 Sodium 146 H Potassium 3.6 Chloride 109 H Carbon Dioxide 29 Anion Gap 8.0 BUN 43 H Creatinine 1.62 H Est Cr Clr Drug Dosing 32.3 Est GFR ( Amer) 39.0 Est GFR (Non-Af Amer) 33.7 BUN/Creatinine Ratio 26.4 H Glucose 100 H POC Glucose 91 97 Calcium 9.1 Troponin I Medications Administered Current Inpatient Medications Acetaminophen (Acetaminophen 325 Mg Tab) 650 mg PO Q4H PRN PRN Reason: Pain or Fever Stop: 12/01/20 04:04 Albuterol (Albuterol 0.083% Nebu Soln 3 Ml Vial) 2.5 mg INH Q4H PRN PRN Reason: Wheezing Stop: 12/01/20 04:04 Albuterol (Albuterol Hfa 8 Gm Inhaler) 2 puffs INH Q4H PRN PRN Reason: Wheezing Stop: 12/01/20 04:04 Aspirin (Aspirin 81 Mg Ectab) 81 mg PO DAILY [facility] Stop: 12/01/20 08:59 Last Admin: 11/02/20 08:27 Dose: 81 mg Documented by: Atorvastatin Calcium (Atorvastatin 40 Mg Tab) 40 mg PO QAM [facility] Stop: 12/01/20 08:59 Last Admin: 11/02/20 08:27 Dose: 40 mg Documented by: Budesonide (Budesonide 0.5 Mg/2 Ml Vial (Pulmicort)) 0.5 mg INH Q12R [facility] Stop: 12/01/20 06:59 Last Admin: 11/02/20 07:09 Dose: 0.5 mg Documented by: Clopidogrel Bisulfate (Clopidogrel Bisulfate 75 Mg Tab) 75 mg PO QAM [facility] Stop: 12/01/20 08:59 Last Admin: 11/02/20 08:27 Dose: 75 mg Documented by: Dextrose (Dextrose 50% 50 Ml Syringe) 25 - 50 ml IV UD PRN; Protocol PRN Reason: Hypoglycemia Protocol Stop: 12/01/20 05:14 Diphenoxylate HCl/Atropine (Diphenoxylate/Atropine 2.5/0.025mg Tab) 1 tab PO QID PRN PRN Reason: Diarrhea Stop: 12/01/20 04:04 Duloxetine HCl (Duloxetine Hcl 60 Mg Cap) 60 mg PO QAM [facility] Stop: 12/01/20 08:59 Last Admin: 11/02/20 08:27 Dose: 60 mg Documented by: Fluticasone/Vilanterol (Fluticasone/Vilanterol 100/25mcg 14 Puffs/Inhaler) 1 puffs INH DAILY [facility] Stop: 12/01/20 08:59 Last Admin: 11/02/20 08:25 Dose: 1 puffs Documented by: Folic Acid (Folic Acid 1 Mg Tab) 1 mg PO HS [facility] Stop: 12/01/20 20:59 Last Admin: 11/01/20 20:39 Dose: 1 mg Documented by: Gabapentin (Gabapentin 300 Mg Cap) 300 mg PO TID [facility] Stop: 12/01/20 08:59 Last Admin: 11/02/20 08:27 Dose: 300 mg Documented by: Glucagon (Glucagon For Inj 1 Mg Vial) 1 mg SQ UD PRN; Protocol PRN Reason: Hypoglycemia Protocol Stop: 12/01/20 05:14 Glucose (Glucose 40% Gel 15 Gm Tube) 15 - 30 gm PO UD PRN; Protocol PRN Reason: Hypoglycemia Protocol Stop: 12/01/20 05:14 Glucose (Glucose 10 Tabs/Tube) 4 - 8 tabs PO UD PRN; Protocol PRN Reason: Hypoglycemia Protocol Stop: 12/01/20 05:14 Insulin Aspart (Insulin Aspart 100 Units/Ml 3 Ml Pen) 0 units SC Q6 [facility] Stop: 12/01/20 05:59 Last Admin: 11/02/20 06:12 Dose: Not Given Documented by: Insulin Glargine (Insulin Glargine Solostar 100 Units/Ml 3 Ml Pen) 15 units SC BID [facility] Stop: 12/01/20 08:59 Last Admin: 11/02/20 09:28 Dose: Not Given Documented by: Isosorbide Mononitrate (Isosorbide [place] Extended Rel 30 Mg Tabcr) 30 mg PO QAM [facility] Stop: 12/01/20 08:59 Last Admin: 11/02/20 08:27 Dose: 30 mg Documented by: Lactobacillus Acidoph/Casei/Rhamnos (Advanced Probiotic 1250 Mg Capsule) 2 cap PO TID [facility] Stop: 12/01/20 08:59 Last Admin: 11/02/20 08:28 Dose: 2 cap Documented by: Metoprolol Succinate (Metoprolol Succ 50mg Ext Rel Tab) 100 mg PO BID [facility] Stop: 12/01/20 08:59 Last Admin: 11/02/20 08:27 Dose: 100 mg Documented by: Mirtazapine (Mirtazapine Soltab 15 Mg) 45 mg PO HS [facility] Stop: 12/01/20 20:59 Last Admin: 11/01/20 20:39 Dose: 45 mg Documented by: Miscellaneous (Carbohydrates For Hypoglycemia ) 15 - 30 gm PO UD PRN PRN Reason: Hypoglycemia Treatment Stop: 12/01/20 05:14 Nitroglycerin (Nitroglycerin Sl 0.4 Mg/Tab Tab) 0.4 mg SL UD PRN PRN Reason: Chest Pain Stop: 12/01/20 04:04 Ondansetron HCl (Ondansetron Inj 2 Mg/Ml 2 Ml Vial) 4 mg IV Q6H PRN PRN Reason: Nausea Stop: 12/01/20 04:04 Pantoprazole Sodium (Pantoprazole 40 Mg Tab) 40 mg PO BID [facility] Stop: 12/01/20 08:59 Last Admin: 11/02/20 08:27 Dose: 40 mg Documented by: Ropinirole HCl (Ropinirole Hcl 0.25 Mg Tablet) 0.5 mg PO HS [facility] Stop: 12/01/20 20:59 Last Admin: 11/01/20 20:39 Dose: 0.5 mg Documented by: Spironolactone (Spironolactone 25 Mg Tab) 25 mg PO QAM [facility] Stop: 12/01/20 08:59 Last Admin: 11/02/20 08:28 Dose: 25 mg Documented by: Sumatriptan Succinate (Sumatriptan Succinate 50 Mg Tab) 50 mg PO PRN PRN PRN Reason: Migraine Headache Stop: 12/01/20 04:04 Torsemide (Torsemide 10 Mg Tab) 10 mg PO QAM [facility] Stop: 12/03/20 08:59 Verapamil HCl (Verapamil Hcl 40 Mg Tab) 40 mg PO QID [facility] Stop: 12/01/20 08:59 Last Admin: 11/02/20 08:27 Dose: 40 mg Documented by:
[2020-11-02] MEDS ORDERED: COUGH DROP (SUGAR FREE) LOZ 24 LOZ/1 BOX BUCCAL STA (19:47)
[2020-11-02] MEDS: rOPINIRole HCL 0.25 MG TABLET PO SCH (20:27)
[2020-11-02] MEDS: FOLIC ACID 1 MG TAB PO SCH (20:28)
[2020-11-02] MEDS: MIRTAZAPINE SOLTAB 15 MG PO SCH (20:29)
--- NOTE | 2020-11-02 22:12 | Hospitalist Progress Note ---
Date of Service November 02, 2020 Assessment & Plan (1) Diastolic CHF, acute on chronic: Chest x-ray showed cardiomegaly and pulmonary vascular congestion. Pro-BNP 6810. Continue IV furosemide. (2) Right-sided chest pain: Atypical pain. Chronically elevated serum troponins. Seen by Cardiology. Acute coronary syndrome unlikely. No need for further evaluation. (3) CAD (coronary artery disease), [place] coronary artery: Atypical chest pain. Chronically elevated troponins. Continue aspirin, metoprolol, nitrates, statin. (4) Dysphagia: [employer] and GI consulted. Barium swallow showed esophageal dysmotility; unable to pass barium tablet. EGD scheduled for tomorrow. (5) Diabetes mellitus, type 2: FBS = 97. Morning Lantus held for barium swallow. IVF with dextrose while NPO. (6) CKD (chronic kidney disease), stage III: CKD III with baseline creatinine around 1.4 - 1.6. Creatinine day of admission was 1.84. Creatinine today = 1.62. Follow. (7) COVID-19 ruled out: SARS-CoV-2 PCR negative on 10/31. (8) DVT prophylaxis: SCD's. Ambulate. (9) Discharge planning issues: Anticipated discharge to home. Family Medicine follow-up with Dr. Suad De León. Admission and Anticipated Discharge Date Admission Date: November 01, 2020 Subjective Recheck for CHF, dysphagia, and other problems. Patient seen in their room around 1810. Persistent SOB. Lower extremity edema improved. Barium swallow performed this morning. It demonstrated esophageal dysmotility. Unable to passed barium tablet. EGD scheduled for tomorrow. No chest pain, nausea, vomiting. Review of Systems: Constitutional- no fever. Cardiac- as noted above. Pulmonary- as noted above. GI- as noted above. - no urinary symptoms. Otherwise, as noted above. Physical Exam Constitutional: no acute distress Eyes: + anicteric sclerae Respiratory: Auscultation: + rales (few) Cardiovascular: Rate/Rhythm: regular rate and regular rhythm Vessels: + JVD Extremities: + edema (1+ pretibial); no calf tenderness Gastrointestinal (Abdomen): normal bowel sounds, soft, nontender, no hepatosplenomegaly Musculoskeletal: Extremities: no cyanosis Skin: no rashes, warm and dry Psychiatric: Orientation: alert and oriented x 3 Results & Data Results & Data ([facility]) Vital Signs (Past 12 Hours) Vital Signs Temp Pulse Pulse Resp BP BP Pulse Ox 11/02/20 19:44 36.4 C L 70 18 104/60 97 11/02/20 19:35 62 18 98 11/02/20 16:00 65 11/02/20 15:31 36.4 C L 64 18 124/64 97 11/02/20 12:00 36.7 C 66 20 117/72 97 Laboratory Results 11/01/20 05:34 11/02/20 06:16 (1) CAD (coronary artery disease), [place] coronary artery [place] vs. 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
[2020-11-02] MEDS ORDERED: D5W AND 1/4NSS + 20MEQ KCL 20 MEQ/1,000 ML BAG IV SCH (22:15)
[2020-11-03] MEDS: INSULIN ASPART 100 UNITS/ML 3 ML PEN SC SCH ×5 (00:27→21:16)
--- NOTE | 2020-11-03 05:44 | Electrocardiogram Report ---
Test Reason : Blood Pressure : / mmHG Vent. Rate : 070 BPM Atrial Rate : 070 BPM P-R Int : 162 ms QRS Dur : 094 ms QT Int : 422 ms P-R-T Axes : -72 005 103 degrees QTc Int : 455 ms Unusual P axis, possible ectopic atrial rhythm Left ventricular hypertrophy with repolarization abnormality Abnormal ECG When compared with ECG of 01-NOV-2020 06:33, Ectopic atrial rhythm has replaced Sinus rhythm Confirmed by Jaycob Melo ([id number]) on 11/03/2020 5:44:27 AM Referred By: REFERRED SELF Confirmed By:Jaycob Melo
[2020-11-03 06:51] LABS: Hematocrit (blood only) 32.4 % (37-47); Hemoglobin 9.6 g/dL (12.0-16.0); Mean Corpuscular Hemoglobin 25.7 pg (25-34); Mean Corpuscular Hgb Conc 29.6 g/dL (32-36); Mean Corpuscular Volume 86.6 fL (80-100); Mean Platelet Volume 9.2 fL (7.4-10.4); Platelet Count 238 K/uL (130-400); RDW Standard Deviation 58.8 fL (36.4-46.3); Red Blood Count 3.74 M/uL (4.2-5.4); White Blood Count 7.94 K/uL (4.8-10.8)
[2020-11-03] MEDS: BUDESONIDE 0.5 MG/2 ML VIAL (PULMICORT) INH SCH ×2 (07:04→19:09)
[2020-11-03 07:32] LABS: BUN Creatinine Ratio 24.8 (10-20); Calcium 8.7 mg/dl (8.5-10.1); Creatinine Clr Calc Pharmacy 34.7 ml/min; Est GFR (African American) 42.8; Potassium 3.7 mmol/L (3.5-5.1)
[2020-11-03] MEDS: FLUTICASONE/VILANTEROL 100/25MCG 14 PUFFS/INHALER INH SCH (08:13)
[2020-11-03] MEDS: PANTOprazole 40 MG TAB PO SCH ×2 (08:15→21:14)
[2020-11-03] MEDS: CLOPIDOGREL BISULFATE 75 MG TAB PO SCH (08:15)
[2020-11-03] MEDS: ADVANCED PROBIOTIC 1250 MG CAPSULE PO SCH ×3 (08:15→21:14)
[2020-11-03] MEDS: GABAPENTIN 300 MG CAP PO SCH ×3 (08:15→21:13)
[2020-11-03] MEDS: ISOSORBIDE MONO EXTENDED REL 30 MG TABCR PO SCH (08:15)
[2020-11-03] MEDS: ATORVASTATIN 40 MG TAB PO SCH (08:15)
[2020-11-03] MEDS: SPIRONOLACTONE 25 MG TAB PO SCH (08:16)
[2020-11-03] MEDS: METOPROLOL SUCC 50MG EXT REL TAB PO SCH ×2 (08:16→21:13)
[2020-11-03] MEDS: ASPIRIN 81 MG ECTAB PO SCH (08:16)
[2020-11-03] MEDS: TORSEMIDE 10 MG TAB PO SCH (08:16)
[2020-11-03] MEDS: DULoxetine HCL 60 MG CAP PO SCH (08:16)
[2020-11-03] MEDS: VERAPAMIL HCL 40 MG TAB PO SCH ×4 (08:16→21:13)
--- NOTE | 2020-11-03 09:37 | Anesthesiology Consultation ---
Date of Service November 03, 2020 Assessment & Plan (1) Encounter for pre-operative examination: Chart Review Chart Review: Acceptable Risk for Surgery History Surgery Operation Date: 11/03/20 11:40 Proposed Procedures p Endoscopic Ultrasonography Upper - Robert Gordon MD s Esophagogastroduodenoscopy - Robert Gordon MD Height/Weight Height: 4 ft 11 in Weight: 76.5 kg Allergies Allergy/AdvReac Type Severity Reaction Status Date / Time Penicillins Allergy Intermediate Flushing, Verified 10/31/20 21:35 Itchiness Sulfa (Sulfonamide Allergy Intermediate Swelling Verified 10/31/20 21:35 Antibiotics) doxycycline Allergy Unknown Unknown Verified 10/31/20 21:35 adhesive AdvReac Intermediate Blistering Verified 10/31/20 21:35 Medications Home Medications Medication Instructions Recorded Confirmed Last Taken duloxetine 60 mg PO QAM 08/09/18 10/31/20 10/31/20 folic acid 1 mg PO HS 08/09/18 10/31/20 10/30/20 sumatriptan succinate 50 mg PO DIRECTED PRN 08/09/18 10/31/20 04/23/20 albuterol sulfate 3 ml INHALATION Q4H PRN 09/09/18 10/31/20 04/27/20 diphenoxylate-atropine [Lomotil] 1 tab PO QID PRN 12/19/18 10/31/20 Unknown albuterol sulfate [Ventolin HFA] 2 puff INHALATION Q4H PRN 06/30/19 10/31/20 Unknown fluticasone propion-salmeterol 1 inh INHALATION BID 06/30/19 10/31/20 10/31/20 [Advair Diskus] gabapentin 300 mg PO TID 06/30/19 10/31/20 10/31/20 14:00 nitroglycerin [Nitrostat] 0.4 mg SUBLINGUAL DIRECTED PRN 06/30/19 10/31/20 09/23/19 1 tablet ondansetron 4 mg TRANSLINGUAL Q8H PRN 06/30/19 10/31/20 09/24/19 spironolactone [Aldactone] 25 mg PO QAM 06/30/19 10/31/20 10/31/20 metoprolol succinate 100 mg PO BID 09/25/19 10/31/2020 mirtazapine 45 mg PO HS 09/25/19 10/31/20 10/30/20 ropinirole 0.5 mg PO HS 09/25/19 10/31/20 10/30/20 budesonide 0.5 mg INHALATION Q12 01/13/20 10/31/20 10/31/20 torsemide See Rx Instructions .ROUTE .COMPLEX 01/13/20 10/31/20 10/31/20 20 MG verapamil 40 mg PO QID 01/13/20 10/31/20 10/31/20 17:00 atorvastatin [Lipitor] 40 mg PO QAM 04/30/20 10/31/20 10/31/20 insulin asp prt-insulin aspart 25 unit SUBCUT DAILYBD 07/07/20 10/31/20 10/31/20 [Novolog Mix 70-30FlexPen U-100] insulin asp prt-insulin aspart 55 unit SUBCUT DAILYBB 07/07/20 10/31/20 10/31/20 [Novolog Mix 70-30FlexPen U-100] Januvia 100 mg PO DAILY 07/28/20 10/31/20 10/31/20 Lactobacillus acidoph-L.bulgar 1 tab PO TID 07/28/20 10/31/20 10/31/20 [Floranex] aspirin 81 mg PO DAILY 07/28/20 10/31/20 10/31/20 isosorbide mononitrate 30 mg PO QAM 07/28/20 10/31/20 10/31/20 pantoprazole 40 mg PO BID 07/28/20 10/31/20 10/31/20 clopidogrel 75 mg PO QAM #30 tab 07/30/20 10/31/20 10/31/20 metformin [Glucophage] 500 mg PO BIDM #0 tab 07/30/20 10/31/20 10/31/20 Active Medications Generic Name Dose Route Start Last Admin Trade Name Freq PRN Reason Stop Dose Admin Aspirin 81 mg 11/01/20 09:00 11/03/20 08:16 Aspirin 81 Mg Ectab PO 12/01/20 08:59 81 mg DAILY [facility]E Administration Atorvastatin Calcium 40 mg 11/01/20 09:00 11/03/20 08:15 Atorvastatin 40 Mg Tab PO 12/01/20 08:59 40 mg QAM [facility] Administration Budesonide 0.5 mg 11/01/20 07:00 11/03/20 07:04 Budesonide 0.5 Mg/2 Ml Vial (Pulmicort) INH 12/01/20 06:59 0.5 mg Q12R [facility]E Administration Clopidogrel Bisulfate 75 mg 11/01/20 09:00 11/03/20 08:15 Clopidogrel Bisulfate 75 Mg Tab PO 12/01/20 08:59 75 mg QAM [facility] Administration Duloxetine HCl 60 mg 11/01/20 09:00 11/03/20 08:16 Duloxetine Hcl 60 Mg Cap PO 12/01/20 08:59 60 mg QAM [facility] Administration Fluticasone/Vilanterol 1 puffs 11/01/20 09:00 11/03/20 08:13 Fluticasone/Vilanterol 100/25mcg 14 Puffs/Inhaler INH 12/01/20 08:59 1 puffs DAILY [facility] Administration Folic Acid 1 mg 11/01/20 21:00 11/02/20 20:28 Folic Acid 1 Mg Tab PO 12/01/20 20:59 1 mg HS [facility] Administration Gabapentin 300 mg 11/01/20 09:00 11/03/20 08:15 Gabapentin 300 Mg Cap PO 12/01/20 08:59 300 mg TID [facility] Administration Potassium Chloride/Dextrose/Sod Cl 20 meq in 1,000 mls @ 80 mls/hr 11/02/20 22 :15 11/02/20 22:52 D5w And 1/4nss + 20meq Kcl IV 11/03/20 10:44 80 mls/hr .[id number] [facility] Administration Insulin Aspart 0 units 11/01/20 06:00 11/03/20 05:59 Insulin Aspart 100 Units/Ml 3 Ml Pen SC 12/01/20 05:59 1 units Q6 [facility] Administration Insulin Glargine 15 units 11/01/20 09:00 11/02/20 21:10 Insulin Glargine Solostar 100 Units/Ml 3 Ml Pen SC 12/01/20 08:59 Not Given BID [facility] Isosorbide Mononitrate 30 mg 11/01/20 09:00 11/03/20 08:15 Isosorbide Ada Extended Rel 30 Mg Tabcr PO 12/01/20 08:59 30 mg QAM [facility] Administration Lactobacillus Acidoph/Casei/Rhamnos 2 cap 11/01/20 09:00 11/03/20 08:15 Advanced Probiotic 1250 Mg Capsule PO 12/01/20 08:59 2 cap TID [facility] Administration Metoprolol Succinate 100 mg 11/01/20 09:00 11/03/20 08:16 Metoprolol Succ 50mg Ext Rel Tab PO 12/01/20 08:59 100 mg BID [facility] Administration Mirtazapine 45 mg 11/01/20 21:00 11/02/20 20:29 Mirtazapine Soltab 15 Mg PO 12/01/20 20:59 45 mg HS [facility] Administration Pantoprazole Sodium 40 mg 11/01/20 09:00 11/03/20 08:15 Pantoprazole 40 Mg Tab PO 12/01/20 08:59 40 mg BID [facility] Administration Ropinirole HCl 0.5 mg 11/01/20 21:00 11/02/20 20:27 Ropinirole Hcl 0.25 Mg Tablet PO 12/01/20 20:59 0.5 mg HS [facility] Administration Spironolactone 25 mg 11/01/20 09:00 11/03/20 08:16 Spironolactone 25 Mg Tab PO 12/01/20 08:59 25 mg QAM [facility] Administration Torsemide 10 mg 11/03/20 09:00 11/03/20 08:16 Torsemide 10 Mg Tab PO 12/03/20 08:59 10 mg QAM [facility] Administration Verapamil HCl 40 mg 11/01/20 09:00 11/03/20 08:16 Verapamil Hcl 40 Mg Tab PO 12/01/20 08:59 40 mg QID [facility] Administration Past Medical History Medical History (Updated 11/03/20 @ 09:37 by Tarun Roblero MD) Anxiety Arthritis Asthma Cardiac defibrillator in place 2014 CHF (congestive heart failure) CKD (chronic kidney disease), stage III COPD (chronic obstructive pulmonary disease) Depression Depression with anxiety Diabetes mellitus, type 2 Elevated troponin Elevated troponin Fatty (change of) liver, not elsewhere classified GERD (gastroesophageal reflux disease) HLD (hyperlipidemia) Hydronephrosis of right kidney Hypertension Hypertrophic cardiomyopathy CADENCE (obstructive sleep apnea) on nocturnal O2 2L Pancreatic cyst Restless leg syndrome Past Family History Family History Other Hypertrophic cardiomyopathy Stomach cancer Thyroid disorder Past Surgical History Surgical History H/O section 1979 & 1982 H/O hernia repair 2016 History of appendectomy 1970s History of colostomy reversal bowel perf 2013 with colostomy reversed in 2014 Status post internal cardiac defibrillator procedure "2015" Status post partial resection of colon "diverticulitis 11/05/14" Social History Smoking Status: Never smoker Hx Alcohol Use: No Hx Substance Use: No substance use type: does not use Physical Exam Vital Signs Last Vital Signs Temp 36.5 C 11/03/20 08:09 Pulse 62 11/03/20 08:09 Resp 16 11/03/20 08:09 BP 127/87 11/03/20 08:09 Pulse Ox 94 11/03/20 08:09 Testing Laboratory Results 11/03/20 06:43 11/03/20 06:43 PT 12.1 Seconds (9.0-12.0) H 10/31/20 20:27 INR 1.2 (0.9-1.1) H 10/31/20 20:27 APTT 25.7 Seconds (21.0-31.0) 10/31/20 20:27 11/03/20 11/02/20 05:57 23:56 POC Glucose 150 H 135 H Electrocardiogram Date: 11/03/20 Findings: + NSR @ (70 with PVC's) and + NSST changes Echocardiogram Date: 11/07/20 EF: 70% Other Findings: + LVH (severe) Valvular Disease: + no significant valvular disease
--- NOTE | 2020-11-03 09:43 | Gastroenterology Progress Note ---
Date of Service November 03, 2020 Assessment & Plan (1) Dysphagia: EGD/EUS today by Dr. Gordon for dysphagia and hx of pancreatic cyst requiring surveillance. Further recommendations to follow endoscopy. (2) Pancreas cyst: EUS in 2017: FNA suggestive of mucinous cyst with recommendation for follow up EUS. CT in 2019 with 2.5cm pancreatic head/body lesion. EUS today. Present on Admission?: Yes Admission and Anticipated Discharge Date Admission Date: November 01, 2020 Supervising Physician Co-Signing Physician Notes I performed a history and physical examination of the patient today, including specifically on physical exam - soft abdomen. I have discussed the patient's management with the advanced practitioner. Please refer to the nurse practitioner's note for the documented findings and plan of care. EGD/EUS today Subjective 60, female w hx obstructive cardiomyopathy, Diastolic CHF, with implanted pacer/defibrillator, HTN, Obesity, COPD, CADENCE, CKD-3, anxiety. Admitted for SOB, CHF Pt with chronic dysphagia and hx of pancreatic cyst. Barium swallow with esophageal dysmotility. Barium tablet lodged in the distal esophagus. Overnight, no events. Pt tells me her breathing is at baseline. Denies CP, SOB (O2 at 2L by NC). Review of Systems Review of Systems: ROS: Gen: Denies weakness, fevers, weight loss Eyes: No eye redness, or pain, no recent vision changes Resp:+ SOB - much improved Cardio: No palpitations/irregular beats, no chest pain GI: See HPI : Denies pain on urination Skin: No jaundice, itching or new rashes Physical Exam Constitutional: WD/WN, vitals as above + obese Eyes: PERRL, conjunctivae normal, anicteric sclerae ENMT: external ear and nose normal, oropharynx normal Neck: trachea midline, no thyromegaly Respiratory: normal respiratory effort, lungs clear to auscultation Cardiovascular: RRR, no murmur, no edema Gastrointestinal (Abdomen): Inspection/Auscultation: abdomen normal to inspection (though obese) Skin: no rashes, warm and dry Neurologic: PERRL, EOMI, accommodation nl, no face palsy, no dysarthria Psychiatric: A+Ox3, euthymic affect Lymphatic: no cervical or axillary lymphadenopathy Results & Data ([facility]) Vital Signs (Past 12 Hours) Vital Signs Temp Pulse Pulse Pulse Resp BP Pulse Ox 11/03/20 08:09 36.5 C 62 16 127/87 94 11/03/20 07:05 80 20 99 11/03/20 07:00 68 11/03/20 03:14 36.6 C 62 16 112/69 92 11/02/20 23:41 36.7 C 63 18 127/68 91
[2020-11-03] MEDS ORDERED: CIPROFLOXACIN 400MG / 200ML D5W IV ONE (10:17)
[2020-11-03] MEDS ORDERED: fentaNYL citrate 100 MCG/2 ML VIAL IV PRN (10:18)
[2020-11-03] MEDS ORDERED: ATROPINE SULFATE 0.1 MG/ML 10ML SYR IV PRN (10:18)
[2020-11-03] MEDS ORDERED: ONDANSETRON INJ 2 MG/ML 2 ML VIAL IV PRN (10:18)
--- NOTE | 2020-11-03 10:26 | History & Physical Bridge Note ---
Date of Service November 03, 2020 History & Physical Bridge Note I have examined the patient, reviewed the History & Physical and in the interval since the performance of the History & Physical I have noted the following changes of clinical significance: no changes noted
--- NOTE | 2020-11-03 11:31 | Operative Report ---
Post Operative Report Pre & Post Diagnosis Operation Date: 11/03/20 11:40 Pre-Op Diagnosis: Dysphagia Post-Op Diagnosis: Dysphagia I identified the patient and participated in the time-out.: Yes Procedure Operation Date: 11/03/20 11:40 Actual Procedures p Endoscopic Ultrasonography Upper(Not Applicable) - Robert Gordon MD s Esophagogastroduodenoscopy(Not Applicable) - Robert Gordon MD Surgeon Robert Gordon MD Vault Cashier None Estimated Blood Loss 0 Findings See Below (Pancreatic cyst) Specimens Panc cyst Description of Procedure EUD I attest to the content of the Intraoperative Record and any orders documented therein. Any exceptions are noted below.
--- NOTE | 2020-11-03 11:41 | GI REPORT ---
Patient Name: Kalie Velasquez Procedure Date: 11/03/2020 10:37 AM Date of : 1960 Admit Type: Inpatient Age: 60 Gender: Female Attending MD: Robert Gordon MD Procedure: Upper GI endoscopy Providers: Robert Gordon MD Referring MD: Suad Elliott Indications: Dysphagia, Odynophagia, Abnormal cine-esophagram Medicines: Propofol per Anesthesia Complications: No immediate complications. Estimated Blood Loss: Estimated blood loss: none. Procedure: Pre-Anesthesia Assessment: - Prior to the procedure, a History and Physical was performed, and patient medications, allergies and sensitivities were reviewed. The patient's tolerance of previous anesthesia was reviewed. - The risks and benefits of the procedure and the sedation options and risks were discussed with the patient. All questions were answered and informed consent was obtained. - Patient identification and proposed procedure were verified prior to the procedure by the physician and the nurse. The procedure was verified in the procedure room. - Pre-procedure physical examination revealed no contraindications to sedation. After obtaining informed consent, the endoscope was passed under direct vision. Throughout the procedure, the patient's blood pressure, pulse, and oxygen saturations were monitored continuously. The Endoscope was introduced through the mouth, and advanced to the second part of duodenum. The upper GI endoscopy was accomplished without difficulty. The patient tolerated the procedure well. Findings: No endoscopic abnormality was evident in the esophagus to explain the patient's complaint of dysphagia. It was decided, however, to proceed with dilation of the entire esophagus. A guidewire was placed and the scope was withdrawn. Dilation was performed with a Savary dilator with no resistance at 45 Fr and mild resistance at 54 Fr. The dilation site was examined following endoscope reinsertion and showed no bleeding and no perforation. Disruption noted below the UES. The Z-line was regular and was found 40 cm from the incisors. The entire examined stomach was normal. The duodenal bulb and second portion of the duodenum were normal. Impression: - No endoscopic esophageal abnormality to explain patient's dysphagia. Esophagus dilated. Dilated. - Z-line regular, 40 cm from the incisors. - Normal stomach. - Normal duodenal bulb and second portion of the duodenum. Recommendation: - Follow an antireflux regimen. - Perform an upper endoscopic ultrasound (UEUS) today. Robert Gordon MD 11/03/2020 11:40:52 AM This report has been signed electronically. Note Initiated On: 11/03/2020 10:37 AM Number of Addenda: 0 I attest to the content of the Intraoperative Record and orders documented therein, exceptions below {[id number]}
--- NOTE | 2020-11-03 11:50 | GI REPORT ---
Patient Name: Kalie Velasquez Procedure Date: 11/03/2020 10:34 AM Date of : 1960 Admit Type: Inpatient Age: 60 Gender: Female Attending MD: Robert Gordon MD Procedure: Upper EUS Providers: Robert Gordon MD Referring MD: Suad Elliott Indications: Pancreatic cyst on CT scan Medicines: Propofol per Anesthesia, Cipro 400 mg IV Complications: No immediate complications. Estimated Blood Loss: Estimated blood loss: none. Procedure: Pre-Anesthesia Assessment: - Prior to the procedure, a History and Physical was performed, and patient medications, allergies and sensitivities were reviewed. The patient's tolerance of previous anesthesia was reviewed. - The risks and benefits of the procedure and the sedation options and risks were discussed with the patient. All questions were answered and informed consent was obtained. - Patient identification and proposed procedure were verified prior to the procedure by the physician and the nurse. The procedure was verified in the procedure room. - Pre-procedure physical examination revealed no contraindications to sedation. After obtaining informed consent, the endoscope was passed under direct vision. Throughout the procedure, the patient's blood pressure, pulse, and oxygen saturations were monitored continuously. The Endosonoscope was introduced through the mouth, and advanced to the second part of duodenum. The upper EUS was accomplished without difficulty. The patient tolerated the procedure well. Findings: ENDOSONOGRAPHIC FINDING: : There was no sign of significant endosonographic abnormality in the ampulla. No masses were identified. There was no sign of significant endosonographic abnormality in the common bile duct. The maximum diameter of the duct was 4 mm. No stones and no biliary sludge were identified. Multiple stones were visualized endosonographically in the gallbladder. They were hyperechoic and characterized by shadowing. There was no sign of significant endosonographic abnormality in the visualized portion of the liver. Anechoic lesions suggestive of two cysts were identified in the pancreatic body. They measured 3 mm and 5 mm in maximal cross-sectional diameter. There was no associated mass. An anechoic lesion suggestive of a cyst was identified in the pancreatic head. The lesion measured 26 mm by 20 mm in maximal cross-sectional diameter. There was a single compartment without septae. The outer wall of the lesion was thin. There was no associated mass. There was no internal debris within the fluid-filled cavity. Diagnostic needle aspiration for fluid was performed. Color Doppler imaging was utilized prior to needle puncture to confirm a lack of significant vascular structures within the needle path. One pass was made with the 22 gauge needle using a transduodenal approach. A stylet was used. The amount of fluid collected was 5 mL. The fluid was clear and viscous. Sample(s) were sent for amylase concentration, cytology and CEA. Verification of patient identification for the specimen was done by the physician and nurse using the patient's name and date. There was no sign of significant endosonographic abnormality in the remaining pancreas. The pancreatic duct measured up to 2 mm in diameter. There was no sign of significant endosonographic abnormality in the visualized portion of the left adrenal gland. There was no sign of significant endosonographic abnormality involving the celiac trunk. An anechoic lesion suggestive of a cyst was identified in the right kidney. The lesion measured 50 mm in maximal cross-sectional diameter. There was a single compartment. Impression: - There was no sign of significant pathology in the ampulla. - There was no sign of significant pathology in the common bile duct. - Multiple stones were visualized endosonographically in the gallbladder. - There was no evidence of significant pathology in the visualized portion of the liver. - Two 5mm and 3 mm cyst were seen in the pancreatic body. - A 26 mm cyst was seen in the pancreatic head. Fine needle aspiration for fluid performed. - There was no sign of significant pathology in the entire remaining pancreas. - Endosonographic images of the left adrenal gland were unremarkable. - The celiac trunk was endosonographically normal. - A cyst measuring 50 mm was identified in the right kidney. Recommendation: - Await cytology results. - Perform magnetic resonance imaging (MRI) with gadolinium in 6 months for surveillance. Robert Gordon MD 11/03/2020 11:49:28 AM This report has been signed electronically. Note Initiated On: 11/03/2020 10:34 AM Number of Addenda: 0 I attest to the content of the Intraoperative Record and orders documented therein, exceptions below {[id number]}
--- NOTE | 2020-11-03 14:41 | Hospitalist Progress Note ---
Date of Service November 03, 2020 Assessment & Plan (1) Diastolic CHF, acute on chronic: Chest x-ray showed cardiomegaly and pulmonary vascular congestion. Pro-BNP 6810. Received intravenous furosemide 40mg on 11/01 and 11/02, one dose daily. Today appears more compensated and euvolemic. (2) Right-sided chest pain: Atypical pain. Chronically elevated serum troponins. Seen by Cardiology. Acute coronary syndrome unlikely. No need for further evaluation. 11/03-evaluated after esophageal dilation performed, Chest pain has resolved (3) CAD (coronary artery disease), [place]' coronary artery: Atypical chest pain. Chronically elevated troponins. Continue medical management with aspirin, metoprolol, nitrates, statin. (4) Dysphagia: [facility] and GI consulted. Barium swallow showed esophageal dysmotility; unable to pass barium tablet. EGD today (11/03) with good result. Underwent dilation. Advanced diet post procedure. Cont to monitor. (5) Diabetes mellitus, type 2: last few A1Cs reflect good control overall. Currently at inpatient glucose goal. Cont basal bolus insulin while admitted. (6) CKD (chronic kidney disease), stage III: creatinine/kidney function appears to be around her baseline. Cont to avoid nephrotoxic substances and renally dose meds as able. (7) COVID-19 ruled out: SARS-CoV-2 PCR negative on 10/31. (8) DVT prophylaxis: Start heparin Full Code Dispo-uncertain, but likely home when medically stable within next 1-2 days. Denise Sanchez DO [facility] Hospitalist (9) Discharge planning issues: Anticipated discharge to home. Family Medicine follow-up with Dr. Suad De León. Admission and Anticipated Discharge Date Admission Date: November 01, 2020 Subjective 60 yo F admitted with atypical chest pain s/p EGD today for dysphagia no gross abnormal findings and underwent esophaegal dilation patient denies chest pain, SOB or other symptoms she is very hungry and asking for solid foods Review of Systems Review of Systems: All systems reviewed & are unremarkable except as noted in Subjective Physical Exam Physical Exam: CONSTITUTIONAL: WNWD, vitals as above, generally well- appearing EYES: normal conjunctivae, no scleral icterus ENT: external ear and nose normal, MMM RESPIRATORY: clear to auscultation bilaterally, no crackles, rales or wheezes, normal respiratory effort CARDIOVASCULAR: regular rate and rhythm, S1 and 2 heard without murmurs, gallops or rubs, no JVD, no peripheral edema GASTROINTESTINAL: soft, nontender, nondistended, no guarding MUSCULOSKELETAL: strength 5/5 throughout SKIN: warm and dry NEUROLOGIC: No facial palsy, no dysarthria. CN 2-12 grossly intact, normal cognition, normal speech, no tremor. No gross focal neuro deficits. PSYCHIATRIC: alert cooperative and oriented to person, place and time. Results & Data Results & Data ([facility]) Vital Signs (Past 12 Hours) Vital Signs Temp Pulse Pulse Pulse Resp BP BP 11/03/20 12:17 36.7 C 63 15 133/71 11/03/20 11:55 36 C L 60 14 118/77 11/03/20 11:45 60 15 105/72 11/03/20 11:36 37 C 60 14 97/63 L 11/03/20 09:45 36.5 C 61 18 115/70 11/03/20 08:09 36.5 C 62 16 127/87 11/03/20 07:05 80 20 11/03/20 07:00 68 11/03/20 03:14 36.6 C 62 16 112/69 Pulse Ox 11/03/20 12:17 99 11/03/20 11:55 96 11/03/20 11:45 96 11/03/20 11:36 98 11/03/20 09:45 98 11/03/20 08:09 94 11/03/20 07:05 99 11/03/20 07:00 11/03/20 03:14 92 Laboratory Results Short CBC 11/03/20 Range/Units 06:43 WBC 7.94 (4.8-10.8) K/uL Hgb 9.6 L (12.0-16.0) g/dL Hct 32.4 L (37-47) % Plt Count 238 (130-400) K/uL BMP 11/03/20 06:43 Sodium 141 Potassium 3.7 Chloride 105 Carbon Dioxide 33 H BUN 37 H Creatinine 1.50 H Glucose 147 H Calcium 8.7 Medications Administered Current Inpatient Medications Albuterol (Albuterol 0.083% Nebu Soln 3 Ml Vial) 2.5 mg INH Q4H PRN PRN Reason: Wheezing Stop: 12/01/20 04:04 Albuterol (Albuterol Hfa 8 Gm Inhaler) 2 puffs INH Q4H PRN PRN Reason: Wheezing Stop: 12/01/20 04:04 Aspirin (Aspirin 81 Mg Ectab) 81 mg PO DAILY [facility] Stop: 12/01/20 08:59 Last Admin: 11/03/20 08:16 Dose: 81 mg Documented by: Atorvastatin Calcium (Atorvastatin 40 Mg Tab) 40 mg PO QAM [facility] Stop: 12/01/20 08:59 Last Admin: 11/03/20 08:15 Dose: 40 mg Documented by: Atropine Sulfate (Atropine Sulfate 0.1 Mg/Ml 10ml Syr) 0.5 mg IV Q1M PRN PRN Reason: PACU Use-HR<40 &/or Bradycardi Stop: 11/03/20 18:18 Budesonide (Budesonide 0.5 Mg/2 Ml Vial (Pulmicort)) 0.5 mg INH Q12R [facility] Stop: 12/01/20 06:59 Last Admin: 11/03/20 07:04 Dose: 0.5 mg Documented by: Clopidogrel Bisulfate (Clopidogrel Bisulfate 75 Mg Tab) 75 mg PO QAM [facility] Stop: 12/01/20 08:59 Last Admin: 11/03/20 08:15 Dose: 75 mg Documented by: Dextrose (Dextrose 50% 50 Ml Syringe) 25 - 50 ml IV UD PRN; Protocol PRN Reason: Hypoglycemia Protocol Stop: 12/01/20 05:14 Diphenoxylate HCl/Atropine (Diphenoxylate/Atropine 2.5/0.025mg Tab) 1 tab PO QID PRN PRN Reason: Diarrhea Stop: 12/01/20 04:04 Duloxetine HCl (Duloxetine Hcl 60 Mg Cap) 60 mg PO QAM [facility] Stop: 12/01/20 08:59 Last Admin: 11/03/20 08:16 Dose: 60 mg Documented by: Fentanyl Citrate (Fentanyl Citrate 100 Mcg/2 Ml Vial) 25 mcg IV Q5M PRN PRN Reason: PACU Use Only-Pain Stop: 11/03/20 18:19 Fluticasone/Vilanterol (Fluticasone/Vilanterol 100/25mcg 14 Puffs/Inhaler) 1 puffs INH DAILY [facility] Stop: 12/01/20 08:59 Last Admin: 11/03/20 08:13 Dose: 1 puffs Documented by: Folic Acid (Folic Acid 1 Mg Tab) 1 mg PO HS [facility] Stop: 12/01/20 20:59 Last Admin: 11/02/20 20:28 Dose: 1 mg Documented by: Gabapentin (Gabapentin 300 Mg Cap) 300 mg PO TID [facility] Stop: 12/01/20 08:59 Last Admin: 11/03/20 14:10 Dose: 300 mg Documented by: Glucagon (Glucagon For Inj 1 Mg Vial) 1 mg SQ UD PRN; Protocol PRN Reason: Hypoglycemia Protocol Stop: 12/01/20 05:14 Glucose (Glucose 40% Gel 15 Gm Tube) 15 - 30 gm PO UD PRN; Protocol PRN Reason: Hypoglycemia Protocol Stop: 12/01/20 05:14 Glucose (Glucose 10 Tabs/Tube) 4 - 8 tabs PO UD PRN; Protocol PRN Reason: Hypoglycemia Protocol Stop: 12/01/20 05:14 Insulin Aspart (Insulin Aspart 100 Units/Ml 3 Ml Pen) 0 units SC Q6 [facility] Stop: 12/01/20 05:59 Last Admin: 11/03/20 12:35 Dose: Not Given Documented by: Insulin Glargine (Insulin Glargine Solostar 100 Units/Ml 3 Ml Pen) 15 units SC BID [facility] Stop: 12/01/20 08:59 Last Admin: 11/02/20 21:10 Dose: Not Given Documented by: Isosorbide Mononitrate (Isosorbide [place] Extended Rel 30 Mg Tabcr) 30 mg PO QAM [facility] Stop: 12/01/20 08:59 Last Admin: 11/03/20 08:15 Dose: 30 mg Documented by: Lactobacillus Acidoph/Casei/Rhamnos (Advanced Probiotic 1250 Mg Capsule) 2 cap PO TID [facility] Stop: 12/01/20 08:59 Last Admin: 11/03/20 14:10 Dose: 2 cap Documented by: Metoprolol Succinate (Metoprolol Succ 50mg Ext Rel Tab) 100 mg PO BID [facility] Stop: 12/01/20 08:59 Last Admin: 11/03/20 08:16 Dose: 100 mg Documented by: Mirtazapine (Mirtazapine Soltab 15 Mg) 45 mg PO HS [facility] Stop: 12/01/20 20:59 Last Admin: 11/02/20 20:29 Dose: 45 mg Documented by: Miscellaneous (Carbohydrates For Hypoglycemia ) 15 - 30 gm PO UD PRN PRN Reason: Hypoglycemia Treatment Stop: 12/01/20 05:14 Nitroglycerin (Nitroglycerin Sl 0.4 Mg/Tab Tab) 0.4 mg SL UD PRN PRN Reason: Chest Pain Stop: 12/01/20 04:04 Ondansetron HCl (Ondansetron Inj 2 Mg/Ml 2 Ml Vial) 4 mg IV Q6H PRN PRN Reason: Nausea Stop: 12/01/20 04:04 Ondansetron HCl (Ondansetron Inj 2 Mg/Ml 2 Ml Vial) 4 mg IV ONCE PRN PRN Reason: PACU Use Only-Nausea/Vomiting Stop: 11/03/20 18:19 Pantoprazole Sodium (Pantoprazole 40 Mg Tab) 40 mg PO BID [facility] Stop: 12/01/20 08:59 Last Admin: 11/03/20 08:15 Dose: 40 mg Documented by: Ropinirole HCl (Ropinirole Hcl 0.25 Mg Tablet) 0.5 mg PO HS [facility] Stop: 12/01/20 20:59 Last Admin: 11/02/20 20:27 Dose: 0.5 mg Documented by: Spironolactone (Spironolactone 25 Mg Tab) 25 mg PO QAM [facility] Stop: 12/01/20 08:59 Last Admin: 11/03/20 08:16 Dose: 25 mg Documented by: Sumatriptan Succinate (Sumatriptan Succinate 50 Mg Tab) 50 mg PO PRN PRN PRN Reason: Migraine Headache Stop: 12/01/20 04:04 Torsemide (Torsemide 10 Mg Tab) 10 mg PO QAM [facility] Stop: 12/03/20 08:59 Last Admin: 11/03/20 08:16 Dose: 10 mg Documented by: Verapamil HCl (Verapamil Hcl 40 Mg Tab) 40 mg PO QID [facility] Stop: 12/01/20 08:59 Last Admin: 11/03/20 14:10 Dose: 40 mg Documented by: (1) Diabetes mellitus, type 2 Chronic kidney disease stage: stage 3 (moderate) Diabetes mellitus complication detail: with chronic kidney disease Diabetes mellitus complication status: with kidney complications Diabetes mellitus manager intermediate insulin use: unspecified manager intermediate insulin use status Qualified Code(s): E11.22 - Type 2 diabetes mellitus with diabetic chronic kidney disease; N18.3 - Chronic kidney disease, stage 3 (moderate) (2) CAD (coronary artery disease), [place]' coronary artery Associated angina: with unstable angina [place] vs. transplanted heart: [place] de[place]' heart Qualified Code(s): I25.110 - Atherosclerotic heart disease of [place] de[place]' coronary artery with unstable angina pectoris
[2020-11-03] MEDS: rOPINIRole HCL 0.25 MG TABLET PO SCH (21:14)
[2020-11-03] MEDS: FOLIC ACID 1 MG TAB PO SCH (21:15)
[2020-11-03] MEDS: MIRTAZAPINE SOLTAB 15 MG PO SCH (21:15)
[2020-11-03] MEDS: INSULIN GLARGINE SOLOSTAR 100 UNITS/ML 3 ML PEN SC SCH (21:15)
--- NOTE | 2020-11-04 06:17 | Electrocardiogram Report ---
Test Reason : Blood Pressure : / mmHG Vent. Rate : 070 BPM Atrial Rate : 070 BPM P-R Int : 166 ms QRS Dur : 096 ms QT Int : 460 ms P-R-T Axes : 000 001 112 degrees QTc Int : 497 ms Unusual P axis, possible ectopic atrial rhythm with occasional Premature ventricular complexes Moderate voltage criteria for LVH, may be normal variant Nonspecific T wave abnormality Prolonged QT Abnormal ECG When compared with ECG of 02-NOV-2020 06:43, Premature ventricular complexes are now Present Confirmed by Jaycob Melo ([id number]) on 11/04/2020 6:16:42 AM Referred By: REFERRED SELF Confirmed By:Jaycob Melo
[2020-11-04] MEDS: BUDESONIDE 0.5 MG/2 ML VIAL (PULMICORT) INH SCH ×2 (07:14→19:36)
[2020-11-04] MEDS: INSULIN ASPART 100 UNITS/ML 3 ML PEN SC SCH ×3 (07:52→17:26)
[2020-11-04] MEDS: FLUTICASONE/VILANTEROL 100/25MCG 14 PUFFS/INHALER INH SCH (08:50)
[2020-11-04] MEDS: TORSEMIDE 10 MG TAB PO SCH (08:53)
[2020-11-04] MEDS: METOPROLOL SUCC 50MG EXT REL TAB PO SCH (08:53)
[2020-11-04] MEDS: ASPIRIN 81 MG ECTAB PO SCH (08:53)
[2020-11-04] MEDS: PANTOprazole 40 MG TAB PO SCH (08:53)
[2020-11-04] MEDS: ATORVASTATIN 40 MG TAB PO SCH (08:53)
[2020-11-04] MEDS: SPIRONOLACTONE 25 MG TAB PO SCH (08:53)
[2020-11-04] MEDS: VERAPAMIL HCL 40 MG TAB PO SCH ×3 (08:53→16:56)
[2020-11-04] MEDS: CLOPIDOGREL BISULFATE 75 MG TAB PO SCH (08:53)
[2020-11-04] MEDS: GABAPENTIN 300 MG CAP PO SCH ×2 (08:53→14:37)
[2020-11-04] MEDS: ISOSORBIDE MONO EXTENDED REL 30 MG TABCR PO SCH (08:53)
[2020-11-04] MEDS: ADVANCED PROBIOTIC 1250 MG CAPSULE PO SCH ×2 (08:53→14:37)
[2020-11-04] MEDS: DULoxetine HCL 60 MG CAP PO SCH (08:53)
[2020-11-04] MEDS: INSULIN GLARGINE SOLOSTAR 100 UNITS/ML 3 ML PEN SC SCH (08:54)
[2020-11-04 08:56] LABS: BUN Creatinine Ratio 24.6 (10-20); Calcium 9.4 mg/dl (8.5-10.1); Creatinine Clr Calc Pharmacy 32.5 ml/min; Est GFR (African American) 39.6; Est GFR (Non-African American) 34.2
--- NOTE | 2020-11-04 16:51 | Cardiology Progress Note ---
Date of Service November 04, 2020 Assessment & Plan (1) Dysphagia: (2) SOB (shortness of breath): (3) Right-sided chest pain: (4) Apical variant hypertrophic cardiomyopathy: (5) Elevated troponin: (6) S/P right coronary artery (RCA) stent placement: From a cardiac standpoint the patient stable. I believe that she could be discharged to outpatient follow-up per the hospitalist group. Admission and Anticipated Discharge Date Admission Date: November 01, 2020 Subjective The patient had esophageal dilatation performed today. She has no new cardiac complaints. Review of Systems Review of Systems: All systems reviewed & are unremarkable except as noted in Subjective Physical Exam Physical Exam: General: no acute distress and stated age Head: normocephalic, no masses, lesions, tenderness or abnormalities Eyes: conjunctiva are pink and non-injected, sclera clear Neck: supple, no adenopathy, no bruits, normal jugular venous pulse, no hepatojugular reflux Chest: normal shape and normal respiratory effort Lungs: clear to auscultation and percussion Cardiac Exam: - regular rate & rhythm, no murmurs gallops or rubs - normal S1, normal S2 Pulses: 2(+) throughout Abdomen: abdomen soft, non-tender, no abnormal masses and no hepatosplenomegaly Musculoskeletal: no gait disturbance, no joint inflammation, no deforming arthritis Extremities: no edema and no cyanosis Neuro: grossly normal exam Results & Data ([facility]) Vital Signs (Past 12 Hours) Vital Signs Temp Pulse Resp BP BP Pulse Ox 11/04/20 15:43 36.8 C 60 18 99/59 L 93 11/04/20 11:41 36.5 C 69 20 118/83 94 11/04/20 07:29 36.4 C L 62 117/72 96 11/04/20 07:14 64 20 92 Laboratory Results Laboratory Results - last 24 hr 11/03/20 11/04/20 11/04/20 20:37 07:26 07:49 Sodium 146 H Potassium 4.0 Chloride 109 H Carbon Dioxide 30 Anion Gap 7.0 BUN 39 H Creatinine 1.60 H Est Cr Clr Drug Dosing 32.5 Est GFR ( Amer) 39.6 Est GFR (Non-Af Amer) 34.2 BUN/Creatinine Ratio 24.6 H Glucose 122 H POC Glucose 164 H 115 H Calcium 9.4 11/04/20 11/04/20 11:11 16:28 Sodium Potassium Chloride Carbon Dioxide Anion Gap BUN Creatinine Est Cr Clr Drug Dosing Est GFR ( Amer) Est GFR (Non-Af Amer) BUN/Creatinine Ratio Glucose POC Glucose 181 H 115 H Calcium Medications Administered Current Inpatient Medications Albuterol (Albuterol 0.083% Nebu Soln 3 Ml Vial) 2.5 mg INH Q4H PRN PRN Reason: Wheezing Stop: 12/01/20 04:04 Albuterol (Albuterol Hfa 8 Gm Inhaler) 2 puffs INH Q4H PRN PRN Reason: Wheezing Stop: 12/01/20 04:04 Aspirin (Aspirin 81 Mg Ectab) 81 mg PO DAILY [facility] Stop: 12/01/20 08:59 Last Admin: 11/04/20 08:53 Dose: 81 mg Documented by: Atorvastatin Calcium (Atorvastatin 40 Mg Tab) 40 mg PO QAM [facility] Stop: 12/01/20 08:59 Last Admin: 11/04/20 08:53 Dose: 40 mg Documented by: Budesonide (Budesonide 0.5 Mg/2 Ml Vial (Pulmicort)) 0.5 mg INH Q12R [facility] Stop: 12/01/20 06:59 Last Admin: 11/04/20 07:14 Dose: 0.5 mg Documented by: Clopidogrel Bisulfate (Clopidogrel Bisulfate 75 Mg Tab) 75 mg PO QAM [facility] Stop: 12/01/20 08:59 Last Admin: 11/04/20 08:53 Dose: 75 mg Documented by: Dextrose (Dextrose 50% 50 Ml Syringe) 25 - 50 ml IV UD PRN; Protocol PRN Reason: Hypoglycemia Protocol Stop: 12/01/20 05:14 Diphenoxylate HCl/Atropine (Diphenoxylate/Atropine 2.5/0.025mg Tab) 1 tab PO QID PRN PRN Reason: Diarrhea Stop: 12/01/20 04:04 Duloxetine HCl (Duloxetine Hcl 60 Mg Cap) 60 mg PO QAM [facility] Stop: 12/01/20 08:59 Last Admin: 11/04/20 08:53 Dose: 60 mg Documented by: Fluticasone/Vilanterol (Fluticasone/Vilanterol 100/25mcg 14 Puffs/Inhaler) 1 puffs INH DAILY [facility] Stop: 12/01/20 08:59 Last Admin: 11/04/20 08:50 Dose: 1 puffs Documented by: Folic Acid (Folic Acid 1 Mg Tab) 1 mg PO HS [facility] Stop: 12/01/20 20:59 Last Admin: 11/03/20 21:15 Dose: 1 mg Documented by: Gabapentin (Gabapentin 300 Mg Cap) 300 mg PO TID [facility] Stop: 12/01/20 08:59 Last Admin: 11/04/20 14:37 Dose: 300 mg Documented by: Glucagon (Glucagon For Inj 1 Mg Vial) 1 mg SQ UD PRN; Protocol PRN Reason: Hypoglycemia Protocol Stop: 12/01/20 05:14 Glucose (Glucose 40% Gel 15 Gm Tube) 15 - 30 gm PO UD PRN; Protocol PRN Reason: Hypoglycemia Protocol Stop: 12/01/20 05:14 Glucose (Glucose 10 Tabs/Tube) 4 - 8 tabs PO UD PRN; Protocol PRN Reason: Hypoglycemia Protocol Stop: 12/01/20 05:14 Insulin Aspart (Insulin Aspart 100 Units/Ml 3 Ml Pen) 0 units SC ACHS [facility] Stop: 12/03/20 16:29 Last Admin: 11/04/20 12:14 Dose: 8 units Documented by: Insulin Glargine (Insulin Glargine Solostar 100 Units/Ml 3 Ml Pen) 15 units SC BID [facility] Stop: 12/01/20 08:59 Last Admin: 11/04/20 08:54 Dose: 15 units Documented by: Isosorbide Mononitrate (Isosorbide [place] Extended Rel 30 Mg Tabcr) 30 mg PO QAM [facility] Stop: 12/01/20 08:59 Last Admin: 11/04/20 08:53 Dose: 30 mg Documented by: Lactobacillus Acidoph/Casei/Rhamnos (Advanced Probiotic 1250 Mg Capsule) 2 cap PO TID [facility] Stop: 12/01/20 08:59 Last Admin: 11/04/20 14:37 Dose: 2 cap Documented by: Metoprolol Succinate (Metoprolol Succ 50mg Ext Rel Tab) 100 mg PO BID [facility] Stop: 12/01/20 08:59 Last Admin: 11/04/20 08:53 Dose: 100 mg Documented by: Mirtazapine (Mirtazapine Soltab 15 Mg) 45 mg PO HS [facility] Stop: 12/01/20 20:59 Last Admin: 11/03/20 21:15 Dose: 45 mg Documented by: Miscellaneous (Carbohydrates For Hypoglycemia ) 15 - 30 gm PO UD PRN PRN Reason: Hypoglycemia Treatment Stop: 12/01/20 05:14 Nitroglycerin (Nitroglycerin Sl 0.4 Mg/Tab Tab) 0.4 mg SL UD PRN PRN Reason: Chest Pain Stop: 12/01/20 04:04 Ondansetron HCl (Ondansetron Inj 2 Mg/Ml 2 Ml Vial) 4 mg IV Q6H PRN PRN Reason: Nausea Stop: 12/01/20 04:04 Pantoprazole Sodium (Pantoprazole 40 Mg Tab) 40 mg PO BID [facility] Stop: 12/01/20 08:59 Last Admin: 11/04/20 08:53 Dose: 40 mg Documented by: Ropinirole HCl (Ropinirole Hcl 0.25 Mg Tablet) 0.5 mg PO HS [facility] Stop: 12/01/20 20:59 Last Admin: 11/03/20 21:14 Dose: 0.5 mg Documented by: Spironolactone (Spironolactone 25 Mg Tab) 25 mg PO QAM [facility] Stop: 12/01/20 08:59 Last Admin: 11/04/20 08:53 Dose: 25 mg Documented by: Sumatriptan Succinate (Sumatriptan Succinate 50 Mg Tab) 50 mg PO PRN PRN PRN Reason: Migraine Headache Stop: 12/01/20 04:04 Torsemide (Torsemide 10 Mg Tab) 10 mg PO QAM [facility] Stop: 12/03/20 08:59 Last Admin: 11/04/20 08:53 Dose: 10 mg Documented by: Verapamil HCl (Verapamil Hcl 40 Mg Tab) 40 mg PO QID [facility] Stop: 12/01/20 08:59 Last Admin: 11/04/20 14:36 Dose: 40 mg Documented by:
--- NOTE | 2020-11-04 17:49 | Discharge Summary ---
Date of Service November 04, 2020 Admission HPI Per Admitting Provider HISTORY OF PRESENT ILLNESS: This 60-year-old female with past medical history significant for diabetes, chronic respiratory failure with hypoxia on 2 liters oxygen, history of obstructive sleep apnea, history of hypertrophic cardiomyopathy, status post ICD defibrillator, chronic diastolic CHF, hypertension, history of coronary artery disease, chronic kidney disease stage III, irritable bowel syndrome, morbid obesity, migraines, depression, who lives at home, comes in because of shortness of breath. She also had episode of chest pain earlier and it was relieved with 2 nitroglycerin, currently she does not have any chest pain. She says she is gaining some weight and she is also following [facility] at home and then were adjusting her diuretics, but she says she is still feeling short of breath and that is the reason, she came here and also complains of some increasing edema in lower extremity. Currently, the patient seems stable, saturating fine at rest but while talking her sats are dropping down to 80s. Says she has cough going on for several weeks. She was recently in the hospital with rhinovirus infection. She said all the family is sick, but no one is tested positive for COVID. Her COVID test was negative in the ER. Denies any fever, chills, no headache, no blurred vision, no earache, no runny nose. She has complaints of severe sore throat, pain in the throat; even drinking water or eating any food causes of pain in her throat. She is nauseous, but no vomiting, no abdominal pain. Normal bowel movements. She says she is not urinating much. Appetite is okay. Admission Exam Per Admitting Provider PHYSICAL EXAMINATION: GENERAL: The patient is obese, not in acute distress. VITAL SIGNS: Temperature 37, pulse 78, respiratory rate 20, blood pressure 126/78, oxygen 97% on 4 liters. HEENT: Pupils equal, round, reactive to light. Oral mucosa moist. NECK: No neck masses seen. CARDIOVASCULAR: S1, S2 heard, regular rate and rhythm, no murmur, no gallop. RESPIRATORY SYSTEM: Normal AP diameter. No accessory muscle use. No wheezing, no crackles. ABDOMEN: Soft, bowel sounds present, nontender. No distention. CENTRAL NERVOUS SYSTEM: Cranial nerves II-XII grossly intact, nonfocal. EXTREMITIES: Mild pedal edema, no erythema seen. Principal Diagnosis acute diastolic heart failure atypical chest pain pancreatic cyst s/p FNA on endoscopic EUS dysphagia s/p esophageal dilation Discharge Exam CONSTITUTIONAL: WNWD, vitals as above, generally well-appearing EYES: normal conjunctivae, no scleral icterus ENT: external ear and nose normal, MMM RESPIRATORY: clear to auscultation bilaterally, no crackles, rales or wheezes, normal respiratory effort CARDIOVASCULAR: regular rate and rhythm, S1 and 2 heard without murmurs, gallops or rubs, no JVD, no peripheral edema GASTROINTESTINAL: soft, nontender, nondistended, no guarding MUSCULOSKELETAL: strength 5/5 throughout SKIN: warm and dry NEUROLOGIC: No facial palsy, no dysarthria. CN 2-12 grossly intact, normal cognition, normal speech, no tremor. No gross focal neuro deficits. PSYCHIATRIC: alert cooperative and oriented to person, place and time. Discharge Data Allergies Allergy/AdvReac Type Severity Reaction Status Date / Time Penicillins Allergy Intermediate Flushing, Verified 10/31/20 21:35 Itchiness Sulfa (Sulfonamide Allergy Intermediate Swelling Verified 10/31/20 21:35 Antibiotics) doxycycline Allergy Unknown Unknown Verified 10/31/20 21:35 adhesive AdvReac Intermediate Blistering Verified 10/31/20 21:35 Consultations 10/31/20 23:32 ED Decision to Admit Stat 11/01/20 04:05 Consult Case Management - Discharge Planning Routine 11/01/20 08:00 Consult Cardiology Routine Consult Gastroenterology Routine Procedures Performed Operation Date: 11/03/20 11:40 Actual Procedures p Endoscopic Ultrasonography Upper(Not Applicable) - Robert Gordon MD s Esophagogastroduodenoscopy(Not Applicable) - Robert Gordon MD Ordered Studies 11/02/20 09:30 FL barium swallow Routine 11/03/20 09:52 US upper EUS PACS images Routine Hospital Course (1) Diastolic CHF, acute on chronic: Chest x-ray showed cardiomegaly and pulmonary vascular congestion. Pro-BNP 6810. Received intravenous furosemide 40mg on 11/01 and 11/02, one dose daily. Clinically compensated and euvolemic prior to discharge. (2) Right-sided chest pain: Atypical pain. Chronically elevated serum troponins. Seen by Cardiology. Acute coronary syndrome unlikely. No need for further evaluation. 11/03-evaluated after esophageal dilation performed, Chest pain has resolved (3) CAD (coronary artery disease), [place] coronary artery: Atypical chest pain. Chronically elevated troponins. Continue medical management with aspirin, metoprolol, nitrates, statin. (4) Dysphagia: [employer] and GI consulted. Barium swallow showed esophageal dysmotility; unable to pass barium tablet. EGD (11/03) with good result. Underwent dilation. Advanced diet post procedure with no issues. Total Time Total Time Spent Total Time Spent (In Minutes): 30 Total Time Includes: Examination of the Patient, Discharge Planning, Medication Reconciliation and Communication With Other Providers Discharge Plan Discharge Items Patient Disposition: Home - Self-Care Reason For Visit: CHEST PAIN, SOB Discharge Diagnosis: acute diastolic heart failure atypical chest pain pancreatic cyst s/p FNA on endoscopic EUS dysphagia s/p esophageal dilation Activity: Resume your previous activity Non-emergency contact: Primary Care Provider Call non-emergency contact if: you have any medication questions, your symptoms worsen, your pain is not controlled, your pain is worsening, your pain is unusual for you, your pain is concerning for you and you have a fever Follow-up/Referrals: Suad De León DO [Primary Care Provider] - Diet: Carb Consistent or DM2 Addtl Attending Provider Instructions: Please take all medications as instructed on diuscharge list below. Please follow-up with your primary care provider within one week of discharge from the hospital. This is to ensure you are still doing well after discharge and to follow-up on your pathology results from the biopsy performed in the hosp ital. It was a pleasure taking care of you! Please call if you have any questions or problems. You can reach a [facility] hospitalist on duty at [facility] 24 hours a day by calling [phone]. Take care of yourself. Denise Sanchez DO [facility] Hospitalist Pending Studies at Discharge: Yes Studies:: pathology Stand-Alone Forms: My [facility] Medications and DC Order Prescriptions: Continued duloxetine 60 mg Capsule,Delayed Release(Dr/Ec) 60 mg PO QAM RF: 0 folic acid 1 mg Tablet 1 mg PO HS RF: 0 sumatriptan succinate 25 mg Tablet 50 mg PO DIRECTED PRN (Reason: Migraine Headache) RF: 0 gabapentin 300 mg capsule 300 mg PO TID RF: 0 albuterol sulfate [Ventolin HFA] 90 mcg/actuation Hfa Aerosol Inhaler 2 puff INHALATION Q4H PRN (Reason: Wheezing) RF: 0 ondansetron 4 mg tablet,disintegrating 4 mg translingual Q8H PRN (Reason: Nausea) RF: 0 nitroglycerin [Nitrostat] 0.4 mg tablet, sublingual 0.4 mg sublingual DIRECTED PRN (Reason: Chest Pain) RF: 0 fluticasone propion-salmeterol [Advair Diskus] 500-50 mcg/dose Blister With Device 1 inh INHALATION BID RF: 0 spironolactone [Aldactone] 25 mg Tablet 25 mg PO QAM RF: 0 metoprolol succinate 100 mg tablet extended release 24 hr 100 mg PO BID RF: 0 mirtazapine 45 mg Tablet 45 mg PO HS RF: 0 ropinirole 0.5 mg Tablet 0.5 mg PO HS RF: 0 atorvastatin [Lipitor] 40 mg tablet 40 mg PO QAM RF: 0 isosorbide mononitrate 30 mg Tablet Extended Release 24 Hr 30 mg PO QAM RF: 0 pantoprazole 40 mg Tablet,Delayed Release (Dr/Ec) 40 mg PO BID RF: 0 aspirin 81 mg Tablet,Chewable 81 mg PO DAILY RF: 0 Januvia 100 mg Tablet 100 mg PO DAILY RF: 0 Lactobacillus acidoph-L.bulgar [Floranex] 1 million cell Tablet 1 tab PO TID RF: 0 clopidogrel 75 mg Tablet 75 mg PO QAM Qty: 30 RF: 2 metformin [Glucophage] 500 mg Tablet 500 mg PO BIDM Qty: 0 RF: 0 albuterol sulfate 2.5 mg /3 mL (0.083 %) solution for nebulization 3 ml Inhalation Q4H PRN (Reason: Wheezing) RF: 0 diphenoxylate-atropine [Lomotil] 2.5-0.025 mg Tablet 1 tab PO QID PRN (Reason: Diarrhea) RF: 0 verapamil 40 mg tablet 40 mg PO QID RF: 0 torsemide 10 mg Tablet See Rx Instructions .ROUTE .COMPLEX RF: 0 budesonide 0.5 mg/2 mL suspension for nebulization 0.5 mg inhalation Q12 RF: 0 insulin asp prt-insulin aspart [Novolog Mix 70-30FlexPen U-100] 100 unit/mL (70-30) insulin pen 55 unit SUBCUT DAILYBB RF: 0 insulin asp prt-insulin aspart [Novolog Mix 70-30FlexPen U-100] 100 unit/mL (70-30) insulin pen 25 unit SUBCUT DAILYBD RF: 0 Discharge Orders: Discharge Order (Routine); Ordered 11/04/20 Ordered By: Denise Sanchez Admission Data Admit Date/Time: 11/01/20 02:55 Attending Provider: Denise Sanchez Admit Provider: Mikey Mayberry Primary Care Provider: Suad De León Other Providers: Brennan Grant ; Robert Gordon Other Interventions: Discharge Summary Assessment (RN) Last Done: 11/04/20 18:15
--- NOTE | 2020-11-08 07:42 | Anesthesiology Progress Note ---
Date of Service November 08, 2020 Anesthesia Post Procedure Transfer of Care Handoff Completed per policy Notes Mental Status: alert / awake / arousable Patient Amnestic to Procedure: Yes Nausea / Vomiting: adequately controlled Pain: adequately controlled Airway Patency, RR, SpO2: stable & adequate BP & HR: stable & adequate Hydration State: stable & adequate Anesthetic Complications: no major complications apparent
== END 2020-11-04 19:39 | disposition home or self-care (01) | DRG 291 ==
LOC: ED 19:54 → 2S 11-01 02:55 → SUATTDRO 11-01 02:55 → 2S 11-01 03:44 → 2W 11-04 11:35

== ENCOUNTER 2020-11-13 14:21 | Inpatient (IN) ==
[2020-11-13] MEDS ORDERED: ONDANSETRON INJ 2 MG/ML 2 ML VIAL IV STA (15:10)
[2020-11-13] MEDS ORDERED: SODIUM CHLORIDE 0.9% 1000ML 500 ML IV ONE ×2 (15:10→16:54)
[2020-11-13] MEDS ORDERED: ACETAMINOPHEN 500 MG TAB PO STA (15:10)
--- NOTE | 2020-11-13 15:39 | Emergency Department Note ---
Impression & Plan Headache, COVID-19, Hypomagnesemia, Hypoglycemia, Hypocalcemia ED Provider Note NAME: AUGUSTO GUZMAN AGE: 60 SEX: F : 1960 ARRIVES VIA: Walk-In INFORMANT: Patient ED PROVIDER(S): Juan Pablo Eubanks DO CHIEF COMPLAINT: Headache HPI: The patient is a 60-year-old female who presented to the emergency department for an evaluation of headache. The patient describes right-sided headache that is sharp in nature. She describes it as a sharp lightening electrical shock that occurs multiple times throughout the day. The symptoms began approximate 1 month ago. She has it multiple times through the day. She denies having any rash. She has no chest pain or difficulty breathing. She does describe some nausea. She has no visual loss. She denies having any unilateral weakness but does complain of generalized weakness. She states her pain is moderate to severe at this time but the pain is waxing and waning and coming and going. She has not had similar symptoms in the past. ROS: See above HPI for pertinent positives & negatives. A total of 10 systems reviewed and were otherwise negative. PAST MEDICAL HISTORY: See Below PAST SURGICAL HISTORY: See Below FAMILY HISTORY: See Below SOCIAL HISTORY: See Below HOME MEDICATIONS: See Below ALLERGIES: See Below VITALS: See Below PHYSICAL EXAMINATION: GENERAL: Patient is awake alert in no acute distress patient is resting comfortably and showing no signs of anxiety EYES: The conjunctivae are clear. The pupils are round and reactive. EARS, NOSE, MOUTH AND THROAT: The nose is without any evidence of any deformity. There is palpable tenderness over the right side of the scalp but no signs of rash or swelling. The temporal artery is palpable and does not appear to be the exact site of tenderness. NECK: The neck is nontender and supple. RESPIRATORY: Normal respiratory effort is noted there is no evidence of wheezing rhonchi or rales CARDIOVASCULAR: Regular rate and rhythm noted there no murmurs rubs or gallops normal S1 normal S2. GASTROINTESTINAL: The abdomen is soft. Abdomen is nontender. MUSCULOSKELETAL/EXTREMITIES: There is no evidence of gross deformity full range of motion is noted in the hips and shoulders. SKIN: Pedal edema was noted bilaterally. NEUROLOGIC: Patient is awake alert and oriented x3 strength is symmetric patellar reflexes are 2+ bilaterally MEDICAL DECISION MAKING: The patient is a 60-year-old female who presented to the emergency department for an evaluation of the headache. The patient describes multiple different symptoms including headache generalized weakness and "just not feeling good". The patient was found to have a positive COVID-19 swab. She was also found to have multiple electrolyte abnormalities. There is a possibility of a pneumonia on chest x-ray but I am unsure if this is from the COVID-19 infection or some other process. She was treated with IV fluids IV magnesium as well as potassium replacement. I discussed the patient's laboratory and radiographic studies with her. I also [facility] They have agreed to evaluate the patient in the emergency department for further management and disposition. Triage Nursing notes reviewed. Prior medical records reviewed Vital Signs: reviewed and remarkable for no significant abnormalities Differential diagnosis: Migraine headache, meningitis, sinusitis, CO exposure, ICH, SAH, infection, tumor, headache, sinus thrombosis, arterial dissection, as well as other pathologies. ER treatment provided: See below Diagnostics interpreted by me: ECG: EKG was obtained in the emergency department. My interpretation is atrial paced rhythm at 65 bpm. Ventricular beats appear to be negative. There was high lateral T wave versions noted. This was compared to a tracing from November 03, 2020. Sinus rhythm has been replaced by atrial paced rhythm. Otherwise there was no significant change in the QRST morphology. Cardiac Monitoring: An order was placed for continuous cardiac monitoring. The monitor shows a rate of 65 bpm with sinus rhythm. Laboratory studies: As stated above and show below. Imaging studies: See below Consultation(s): [id number]: [facility] They have agreed to evaluate the patient in the emergency department for further management and disposition. Past Med/Surg History Medical History (Updated 11/13/20 @ 18:07 by Juan Pablo Eubanks DO) Anxiety Arthritis Asthma Cardiac defibrillator in place 2014 CHF (congestive heart failure) CKD (chronic kidney disease), stage III COPD (chronic obstructive pulmonary disease) Depression Depression with anxiety Diabetes mellitus, type 2 Elevated troponin Elevated troponin Fatty (change of) liver, not elsewhere classified GERD (gastroesophageal reflux disease) HLD (hyperlipidemia) Hydronephrosis of right kidney Hypertension Hypertrophic cardiomyopathy CADENCE (obstructive sleep apnea) on nocturnal O2 2L Pancreatic cyst Restless leg syndrome Surgical History H/O section 1979 & 1982 H/O hernia repair 2016 History of appendectomy 1970s History of colostomy reversal bowel perf 2014 with colostomy reversed in 2015 Status post internal cardiac defibrillator procedure "2015" Status post partial resection of colon "diverticulitis 11/05/14" Family History Other Hypertrophic cardiomyopathy Stomach cancer Thyroid disorder Social History Smoking Status: Never smoker Second Hand Exposure: No; Hx Alcohol Use: No Hx Substance Use: No Preferred Language: Romanian Communication Ability: Effective 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 Beliefs That Will Affect Care: L[employer]-Day L[employer]-Day Beliefs: Restoration marital status: Current Living Situation: Spouse 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 Feels Safe at Home: Yes Assistive Devices: Oxygen - Continuous Allergies Allergies Allergy/AdvReac Type Severity Reaction Status Date / Time Penicillins Allergy Intermediate Flushing, Verified 10/31/20 21:35 Itchiness Sulfa (Sulfonamide Allergy Intermediate Swelling Verified 10/31/20 21:35 Antibiotics) doxycycline Allergy Unknown Unknown Verified 10/31/20 21:35 adhesive AdvReac Intermediate Blistering Verified 10/31/20 21:35 Home Meds Home Medications Medication Instructions Recorded Confirmed duloxetine 60 mg PO QAM 08/09/18 10/31/20 folic acid 1 mg PO HS 08/09/18 10/31/20 sumatriptan succinate 50 mg PO DIRECTED PRN 08/09/18 10/31/20 albuterol sulfate 3 ml INHALATION Q4H PRN 09/09/18 10/31/20 diphenoxylate-atropine [Lomotil] 1 tab PO QID PRN 12/19/18 10/31/20 albuterol sulfate [Ventolin HFA] 2 puff INHALATION Q4H PRN 06/30/19 10/31/20 fluticasone propion-salmeterol 1 inh INHALATION BID 06/30/19 10/31/20 [Advair Diskus] gabapentin 300 mg PO TID 06/30/19 10/31/20 nitroglycerin [Nitrostat] 0.4 mg SUBLINGUAL DIRECTED PRN 06/30/19 10/31/20 ondansetron 4 mg TRANSLINGUAL Q8H PRN 06/30/19 10/31/20 spironolactone [Aldactone] 25 mg PO QAM 06/30/19 10/31/20 metoprolol succinate 100 mg PO BID 09/25/19 10/31/20 mirtazapine 45 mg PO HS 09/25/19 10/31/20 ropinirole 0.5 mg PO HS 09/25/19 10/31/20 budesonide 0.5 mg INHALATION Q12 01/13/20 10/31/20 torsemide See Rx Instructions .ROUTE .COMPLEX 01/13/20 10/31/20 verapamil 40 mg PO QID 01/13/20 10/31/20 atorvastatin [Lipitor] 40 mg PO QAM 04/30/20 10/31/20 insulin asp prt-insulin aspart 25 unit SUBCUT DAILYBD 07/07/20 10/31/20 [Novolog Mix 70-30FlexPen U-100] insulin asp prt-insulin aspart 55 unit SUBCUT DAILYBB 07/07/20 10/31/20 [Novolog Mix 70-30FlexPen U-100] Januvia 100 mg PO DAILY 07/28/20 10/31/20 Lactobacillus acidoph-L.bulgar 1 tab PO TID 07/28/20 10/31/20 [Floranex] aspirin 81 mg PO DAILY 07/28/20 10/31/20 isosorbide mononitrate 30 mg PO QAM 07/28/20 10/31/20 pantoprazole 40 mg PO BID 07/28/20 10/31/20 Previous Rx's Medication Instructions Recorded clopidogrel 75 mg PO QAM #30 tab 07/30/20 metformin [Glucophage] 500 mg PO BIDM #0 tab 07/30/20 Results & Data (ED) Vital Signs Vital Signs - 24 hr 11/13/20 14:24 11/13/20 16:40 11/13/20 17:02 Pulse Rate 62 Pulse Rate [Apical] 63 Respiratory Rate 20 18 Respiratory Effort / Characteristics Non-Labored Respiratory Depth Normal Blood Pressure 92/52 L Blood Pressure [Left Arm] 120/73 Blood Pressure Mean 65 Blood Pressure Mean [Left Arm] 88 Pulse Oximetry 100 98 96 Oxygen Delivery Method Nasal Cannula Nasal Cannula Room Air Oxygen Flow Rate 3 3 Sepsis Recent Fever Within 48 Hours No Sepsis New/Unexplained Change in Mental Status N/A Sepsis Action Taken by Nursing No Action Required Home Medications Current Medication List: was personally reviewed by me Laboratory Data Attestation: I reviewed the patient's lab results. Result diagrams: 11/13/20 16:37 11/13/20 15:37 Lab Results 11/13/20 11/13/20 11/13/20 Range/Units 15:37 15:37 15:37 WBC Cancelled RBC Cancelled Hgb Cancelled Hct Cancelled MCV Cancelled MCH Cancelled MCHC Cancelled RDW Std Deviation Cancelled RDW Coeff of Rolan Cancelled Plt Count Cancelled MPV Cancelled Immature Gran % (Auto) Cancelled Neut % (Auto) Cancelled Lymph % (Auto) Cancelled [place] % (Auto) Cancelled Eos % (Auto) Cancelled Baso % (Auto) Cancelled Neut # (Auto) Cancelled Lymph # (Auto) Cancelled [place] # (Auto) Cancelled Eos # (Auto) Cancelled Baso # (Auto) Cancelled Immature Gran # (Auto) Cancelled Absolute Nucleated RBC Cancelled Nucleated RBC % (auto) Cancelled Neutrophils % (Manual) Cancelled Band Neutrophils % Cancelled Lymphocytes % (Manual) Cancelled Prolymphocyte % Cancelled Reactive Lymphs % (Man) Cancelled Monocytes % (Manual) Cancelled Eosinophils % (Manual) Cancelled Basophils % (Manual) Cancelled Metamyelocytes % (Man) Cancelled Myelocytes % (Man) Cancelled Promyelocytes % (Man) Cancelled Blast Cells % (Manual) Cancelled Plasma Cell % (Manual) Cancelled Other Cells % Cancelled Nucleated RBC % Cancelled Neutrophils # (Manual) Cancelled Band Neutrophils # Cancelled Total Absolute Neuts Cancelled Lymphocytes # (Manual) Cancelled Prolymphocyte # Cancelled Reactive Lymphs # Cancelled Total Abs Lymphocytes Cancelled Monocytes # (Manual) Cancelled Eosinophils # (Manual) Cancelled Basophils # (Manual) Cancelled Metamyelocytes # (Man) Cancelled Myelocytes # (Manual) Cancelled Promyelocytes # (Man) Cancelled Blast Cells # (Man) Cancelled Plasma Cell # (Manual) Cancelled Other Cells # Cancelled Nucleated RBCs # (Man) Cancelled Hypersegmented Neuts Cancelled Hyposegmented Neuts Cancelled Hypogranular Neuts Cancelled Large Granular Lymphs Cancelled # Lrg Granular Lymphs Cancelled Hairy Cells Cancelled Smudge Cells Cancelled Toxic Granulation Cancelled Toxic Vacuolation Cancelled Dohle Bodies Cancelled Sukhjinder Rods Cancelled Platelet Estimate Cancelled Hypogranular Platelets Cancelled Clumped Platelets Cancelled Giant Platelets Cancelled Platelet Satelliting Cancelled RBC Morphology Cancelled Polychromasia Cancelled Hypochromasia Cancelled Poikilocytosis Cancelled Basophilic Stippling Cancelled Anisocytosis Cancelled Microcytosis Cancelled Macrocytosis Cancelled Spherocytes Cancelled Pappenheimer Bodies Cancelled Sickle Cells Cancelled Target Cells Cancelled Tear Drop Cells Cancelled Ovalocytes Cancelled Stomatocytes Cancelled [place] Bodies Cancelled Echinocytes Cancelled Acanthocytes (Spur) Cancelled Rouleaux Cancelled RBC Agglutinates Cancelled Schistocytes Cancelled RBC Morph Comment Cancelled ESR Cancelled Sezary Cell Cancelled PT Cancelled INR Cancelled APTT Cancelled PTT Ratio Cancelled VBG pH (7.36-7.41) VBG pCO2 (38-50) mmHg VBG pO2 mmHg VBG HCO3 mmol/L VBG O2 Saturation % VBG Base Excess mEq/L Barometric Pressure mm/Hg Sodium (136-145) mmol/L Potassium (3.5-5.1) mmol/L Chloride (98-107) mmol/L Carbon Dioxide (21-32) mmol/L Anion Gap (3-11) BUN (7-18) mg/dl Creatinine (0.6-1.2) mg/dl Est Cr Clr Drug Dosing Est GFR ( Amer) Est GFR (Non-Af Amer) BUN/Creatinine Ratio (10-20) Glucose (70-99) mg/dl POC Glucose (70-99) mg/dl Calcium (8.5-10.1) mg/dl Ionized Calcium (1.12-1.32) mmol/L Phosphorus (2.5-4.9) mg/dl Magnesium (1.8-2.4) mg/dl Total Bilirubin (0.2-1) mg/dl AST (15-37) U/L ALT (12-78) U/L Alkaline Phosphatase (45-117) U/L Troponin I (0-0.045) ng/ml C-Reactive Protein (0-0.29) mg/dl Total Protein (6.4-8.2) gm/dl Albumin (3.4-5.0) gm/dl Albumin/Globulin Ratio (0.9-2) TSH (0.300-4.500) uIu/ml SARS-CoV-2, RNA, NAAT (NEGATIVE) SARS-CoV-2 Ag (Rapid) (Negative) 11/13/20 11/13/20 11/13/20 Range/Units 15:37 16:36 16:37 WBC 4.93 RBC 3.81 L Hgb 9.7 L Hct 32.4 L MCV 85.0 MCH 25.5 MCHC 29.9 L RDW Std Deviation 61.5 H RDW Coeff of Rolan 19.8 H Plt Count 164 MPV 10.2 Immature Gran % (Auto) 0.2 Neut % (Auto) 83.7 Lymph % (Auto) 11.2 [place] % (Auto) 4.7 Eos % (Auto) 0.2 Baso % (Auto) 0.0 Neut # (Auto) 4.13 Lymph # (Auto) 0.55 L [place] # (Auto) 0.23 Eos # (Auto) 0.01 Baso # (Auto) 0.00 Immature Gran # (Auto) 0.01 Absolute Nucleated RBC Nucleated RBC % (auto) Neutrophils % (Manual) Band Neutrophils % Lymphocytes % (Manual) Prolymphocyte % Reactive Lymphs % (Man) Monocytes % (Manual) Eosinophils % (Manual) Basophils % (Manual) Metamyelocytes % (Man) Myelocytes % (Man) Promyelocytes % (Man) Blast Cells % (Manual) Plasma Cell % (Manual) Other Cells % Nucleated RBC % Neutrophils # (Manual) Band Neutrophils # Total Absolute Neuts Lymphocytes # (Manual) Prolymphocyte # Reactive Lymphs # Total Abs Lymphocytes Monocytes # (Manual) Eosinophils # (Manual) Basophils # (Manual) Metamyelocytes # (Man) Myelocytes # (Manual) Promyelocytes # (Man) Blast Cells # (Man) Plasma Cell # (Manual) Other Cells # Nucleated RBCs # (Man) Hypersegmented Neuts Hyposegmented Neuts Hypogranular Neuts Large Granular Lymphs # Lrg Granular Lymphs Hairy Cells Smudge Cells Toxic Granulation Toxic Vacuolation Dohle Bodies Sukhjinder Rods Platelet Estimate Hypogranular Platelets Clumped Platelets Giant Platelets Platelet Satelliting RBC Morphology Polychromasia Hypochromasia Poikilocytosis Basophilic Stippling Anisocytosis Microcytosis Macrocytosis Spherocytes Pappenheimer Bodies Sickle Cells Target Cells Tear Drop Cells Ovalocytes Stomatocytes [place] Bodies Echinocytes Acanthocytes (Spur) Rouleaux RBC Agglutinates Schistocytes RBC Morph Comment ESR Sezary Cell PT INR APTT PTT Ratio VBG pH (7.36-7.41) VBG pCO2 (38-50) mmHg VBG pO2 mmHg VBG HCO3 mmol/L VBG O2 Saturation % VBG Base Excess mEq/L Barometric Pressure mm/Hg Sodium 150 H (136-145) mmol/L Potassium 2.7 L (3.5-5.1) mmol/L Chloride 125 H (98-107) mmol/L Carbon Dioxide 18 L (21-32) mmol/L Anion Gap 7.0 (3-11) BUN 24 H (7-18) mg/dl Creatinine 1.04 (0.6-1.2) mg/dl Est Cr Clr Drug Dosing Not Reportable Est GFR ( Amer) 66.7 Est GFR (Non-Af Amer) 57.5 BUN/Creatinine Ratio 23.0 H (10-20) Glucose 41 L* (70-99) mg/dl POC Glucose 56 L* (70-99) mg/dl Calcium 5.1 L* (8.5-10.1) mg/dl Ionized Calcium (1.12-1.32) mmol/L Phosphorus 1.8 L (2.5-4.9) mg/dl Magnesium 1.0 L (1.8-2.4) mg/dl Total Bilirubin 0.3 (0.2-1) mg/dl AST 23 (15-37) U/L ALT 12 (12-78) U/L Alkaline Phosphatase 58 (45-117) U/L Troponin I 0.325 H* (0-0.045) ng/ml C-Reactive Protein 4.38 H (0-0.29) mg/dl Total Protein 4.3 L (6.4-8.2) gm/dl Albumin 2.0 L (3.4-5.0) gm/dl Albumin/Globulin Ratio 0.9 (0.9-2) TSH 1.190 (0.300-4.500) uIu/ml SARS-CoV-2, RNA, NAAT (NEGATIVE) SARS-CoV-2 Ag (Rapid) (Negative) 12/26/20 12/26/20 12/26/20 Range/Units 16:37 17:15 17:17 WBC RBC Hgb Hct MCV MCH MCHC RDW Std Deviation RDW Coeff of Rolan Plt Count MPV Immature Gran % (Auto) Neut % (Auto) Lymph % (Auto) [place] % (Auto) Eos % (Auto) Baso % (Auto) Neut # (Auto) Lymph # (Auto) [place] # (Auto) Eos # (Auto) Baso # (Auto) Immature Gran # (Auto) Absolute Nucleated RBC Nucleated RBC % (auto) Neutrophils % (Manual) Band Neutrophils % Lymphocytes % (Manual) Prolymphocyte % Reactive Lymphs % (Man) Monocytes % (Manual) Eosinophils % (Manual) Basophils % (Manual) Metamyelocytes % (Man) Myelocytes % (Man) Promyelocytes % (Man) Blast Cells % (Manual) Plasma Cell % (Manual) Other Cells % Nucleated RBC % Neutrophils # (Manual) Band Neutrophils # Total Absolute Neuts Lymphocytes # (Manual) Prolymphocyte # Reactive Lymphs # Total Abs Lymphocytes Monocytes # (Manual) Eosinophils # (Manual) Basophils # (Manual) Metamyelocytes # (Man) Myelocytes # (Manual) Promyelocytes # (Man) Blast Cells # (Man) Plasma Cell # (Manual) Other Cells # Nucleated RBCs # (Man) Hypersegmented Neuts Hyposegmented Neuts Hypogranular Neuts Large Granular Lymphs # Lrg Granular Lymphs Hairy Cells Smudge Cells Toxic Granulation Toxic Vacuolation Dohle Bodies Sukhjinder Rods Platelet Estimate Hypogranular Platelets Clumped Platelets Giant Platelets Platelet Satelliting RBC Morphology Polychromasia Hypochromasia Poikilocytosis Basophilic Stippling Anisocytosis Microcytosis Macrocytosis Spherocytes Pappenheimer Bodies Sickle Cells Target Cells Tear Drop Cells Ovalocytes Stomatocytes [place] Bodies Echinocytes Acanthocytes (Spur) Rouleaux RBC Agglutinates Schistocytes RBC Morph Comment ESR 40 H Sezary Cell PT Cancelled INR Cancelled APTT Cancelled PTT Ratio Cancelled VBG pH (7.36-7.41) VBG pCO2 (38-50) mmHg VBG pO2 mmHg VBG HCO3 mmol/L VBG O2 Saturation % VBG Base Excess mEq/L Barometric Pressure mm/Hg Sodium (136-145) mmol/L Potassium (3.5-5.1) mmol/L Chloride (98-107) mmol/L Carbon Dioxide (21-32) mmol/L Anion Gap (3-11) BUN (7-18) mg/dl Creatinine (0.6-1.2) mg/dl Est Cr Clr Drug Dosing Est GFR ( Amer) Est GFR (Non-Af Amer) BUN/Creatinine Ratio (10-20) Glucose (70-99) mg/dl POC Glucose (70-99) mg/dl Calcium (8.5-10.1) mg/dl Ionized Calcium (1.12-1.32) mmol/L Phosphorus (2.5-4.9) mg/dl Magnesium (1.8-2.4) mg/dl Total Bilirubin (0.2-1) mg/dl AST (15-37) U/L ALT (12-78) U/L Alkaline Phosphatase (45-117) U/L Troponin I (0-0.045) ng/ml C-Reactive Protein (0-0.29) mg/dl Total Protein (6.4-8.2) gm/dl Albumin (3.4-5.0) gm/dl Albumin/Globulin Ratio (0.9-2) TSH (0.300-4.500) uIu/ml SARS-CoV-2, RNA, NAAT POSITIVE A* (NEGATIVE) SARS-CoV-2 Ag (Rapid) (Negative) 11/13/20 11/13/20 11/13/20 Range/Units 17:17 17:17 17:42 WBC RBC Hgb Hct MCV MCH MCHC RDW Std Deviation RDW Coeff of Rolan Plt Count MPV Immature Gran % (Auto) Neut % (Auto) Lymph % (Auto) [place] % (Auto) Eos % (Auto) Baso % (Auto) Neut # (Auto) Lymph # (Auto) [place] # (Auto) Eos # (Auto) Baso # (Auto) Immature Gran # (Auto) Absolute Nucleated RBC Nucleated RBC % (auto) Neutrophils % (Manual) Band Neutrophils % Lymphocytes % (Manual) Prolymphocyte % Reactive Lymphs % (Man) Monocytes % (Manual) Eosinophils % (Manual) Basophils % (Manual) Metamyelocytes % (Man) Myelocytes % (Man) Promyelocytes % (Man) Blast Cells % (Manual) Plasma Cell % (Manual) Other Cells % Nucleated RBC % Neutrophils # (Manual) Band Neutrophils # Total Absolute Neuts Lymphocytes # (Manual) Prolymphocyte # Reactive Lymphs # Total Abs Lymphocytes Monocytes # (Manual) Eosinophils # (Manual) Basophils # (Manual) Metamyelocytes # (Man) Myelocytes # (Manual) Promyelocytes # (Man) Blast Cells # (Man) Plasma Cell # (Manual) Other Cells # Nucleated RBCs # (Man) Hypersegmented Neuts Hyposegmented Neuts Hypogranular Neuts Large Granular Lymphs # Lrg Granular Lymphs Hairy Cells Smudge Cells Toxic Granulation Toxic Vacuolation Dohle Bodies Sukhjinder Rods Platelet Estimate Hypogranular Platelets Clumped Platelets Giant Platelets Platelet Satelliting RBC Morphology Polychromasia Hypochromasia Poikilocytosis Basophilic Stippling Anisocytosis Microcytosis Macrocytosis Spherocytes Pappenheimer Bodies Sickle Cells Target Cells Tear Drop Cells Ovalocytes Stomatocytes [place] Bodies Echinocytes Acanthocytes (Spur) Rouleaux RBC Agglutinates Schistocytes RBC Morph Comment ESR Sezary Cell PT INR APTT PTT Ratio VBG pH 7.35 L (7.36-7.41) VBG pCO2 48 (38-50) mmHg VBG pO2 36 mmHg VBG HCO3 26 mmol/L VBG O2 Saturation 64.8 % VBG Base Excess 0.3 mEq/L Barometric Pressure 733.6 mm/Hg Sodium (136-145) mmol/L Potassium (3.5-5.1) mmol/L Chloride (98-107) mmol/L Carbon Dioxide (21-32) mmol/L Anion Gap (3-11) BUN (7-18) mg/dl Creatinine (0.6-1.2) mg/dl Est Cr Clr Drug Dosing Est GFR ( Amer) Est GFR (Non-Af Amer) BUN/Creatinine Ratio (10-20) Glucose (70-99) mg/dl POC Glucose 81 (70-99) mg/dl Calcium (8.5-10.1) mg/dl Ionized Calcium 1.00 L (1.12-1.32) mmol/L Phosphorus (2.5-4.9) mg/dl Magnesium (1.8-2.4) mg/dl Total Bilirubin (0.2-1) mg/dl AST (15-37) U/L ALT (12-78) U/L Alkaline Phosphatase (45-117) U/L Troponin I (0-0.045) ng/ml C-Reactive Protein (0-0.29) mg/dl Total Protein (6.4-8.2) gm/dl Albumin (3.4-5.0) gm/dl Albumin/Globulin Ratio (0.9-2) TSH (0.300-4.500) uIu/ml SARS-CoV-2, RNA, NAAT (NEGATIVE) SARS-CoV-2 Ag (Rapid) (Negative) 11/13/20 Range/Units Unknown WBC RBC Hgb Hct MCV MCH MCHC RDW Std Deviation RDW Coeff of Rolan Plt Count MPV Immature Gran % (Auto) Neut % (Auto) Lymph % (Auto) [place] % (Auto) Eos % (Auto) Baso % (Auto) Neut # (Auto) Lymph # (Auto) [place] # (Auto) Eos # (Auto) Baso # (Auto) Immature Gran # (Auto) Absolute Nucleated RBC Nucleated RBC % (auto) Neutrophils % (Manual) Band Neutrophils % Lymphocytes % (Manual) Prolymphocyte % Reactive Lymphs % (Man) Monocytes % (Manual) Eosinophils % (Manual) Basophils % (Manual) Metamyelocytes % (Man) Myelocytes % (Man) Promyelocytes % (Man) Blast Cells % (Manual) Plasma Cell % (Manual) Other Cells % Nucleated RBC % Neutrophils # (Manual) Band Neutrophils # Total Absolute Neuts Lymphocytes # (Manual) Prolymphocyte # Reactive Lymphs # Total Abs Lymphocytes Monocytes # (Manual) Eosinophils # (Manual) Basophils # (Manual) Metamyelocytes # (Man) Myelocytes # (Manual) Promyelocytes # (Man) Blast Cells # (Man) Plasma Cell # (Manual) Other Cells # Nucleated RBCs # (Man) Hypersegmented Neuts Hyposegmented Neuts Hypogranular Neuts Large Granular Lymphs # Lrg Granular Lymphs Hairy Cells Smudge Cells Toxic Granulation Toxic Vacuolation Dohle Bodies Sukhjinder Rods Platelet Estimate Hypogranular Platelets Clumped Platelets Giant Platelets Platelet Satelliting RBC Morphology Polychromasia Hypochromasia Poikilocytosis Basophilic Stippling Anisocytosis Microcytosis Macrocytosis Spherocytes Pappenheimer Bodies Sickle Cells Target Cells Tear Drop Cells Ovalocytes Stomatocytes [place] Bodies Echinocytes Acanthocytes (Spur) Rouleaux RBC Agglutinates Schistocytes RBC Morph Comment ESR Sezary Cell PT INR APTT PTT Ratio VBG pH (7.36-7.41) VBG pCO2 (38-50) mmHg VBG pO2 mmHg VBG HCO3 mmol/L VBG O2 Saturation % VBG Base Excess mEq/L Barometric Pressure mm/Hg Sodium (136-145) mmol/L Potassium (3.5-5.1) mmol/L Chloride (98-107) mmol/L Carbon Dioxide (21-32) mmol/L Anion Gap (3-11) BUN (7-18) mg/dl Creatinine (0.6-1.2) mg/dl Est Cr Clr Drug Dosing Est GFR ( Amer) Est GFR (Non-Af Amer) BUN/Creatinine Ratio (10-20) Glucose (70-99) mg/dl POC Glucose (70-99) mg/dl Calcium (8.5-10.1) mg/dl Ionized Calcium (1.12-1.32) mmol/L Phosphorus (2.5-4.9) mg/dl Magnesium (1.8-2.4) mg/dl Total Bilirubin (0.2-1) mg/dl AST (15-37) U/L ALT (12-78) U/L Alkaline Phosphatase (45-117) U/L Troponin I (0-0.045) ng/ml C-Reactive Protein (0-0.29) mg/dl Total Protein (6.4-8.2) gm/dl Albumin (3.4-5.0) gm/dl Albumin/Globulin Ratio (0.9-2) TSH (0.300-4.500) uIu/ml SARS-CoV-2, RNA, NAAT (NEGATIVE) SARS-CoV-2 Ag (Rapid) Positive A* (Negative) Administered Medications Magnesium Sulfate/Dextrose (Magnesium Sulfate / D5w) 1 gm in 100 mls @ 100 mls/hr IV Q1H MARILEE Stop: 11/13/20 18:20 Last Admin: 11/13/20 17:50 Dose: 100 mls/hr Documented by: [id number] Infusion: 11/13/20 17:42 Dose: 100 mls/hr Documented by: [id number] Admin: 11/13/20 16:42 Dose: 100 mls/hr Documented by: [id number] Discontinued Medications Acetaminophen (Acetaminophen 500 Mg Tab) 1,000 mg PO NOW STA Stop: 11/13/20 15:11 Last Admin: 11/13/20 15:57 Dose: 1,000 mg Documented by: [id number] Sodium Chloride (Nss 1000ml) 500 mls @ 999 mls/hr IV .Q31M ONE Stop: 11/13/20 15:40 Last Infusion: 11/13/20 18:01 Dose: 0 mls/hr Documented by: [id number] Admin: 11/13/20 15:57 Dose: 999 mls/hr Documented by: [id number] Ondansetron HCl (Ondansetron Inj 2 Mg/Ml 2 Ml Vial) 4 mg IV NOW STA Stop: 11/13/20 15:11 Last Admin: 11/13/20 15:57 Dose: 4 mg Documented by: [id number] Potassium Chloride (Potassium Chloride Crtab 20 Meq Tabcr) 20 meq PO NOW STA Stop: 11/13/20 17:28 Last Admin: 11/13/20 18:00 Dose: 20 meq Documented by: [id number] Imaging Data Radiologist's Impression: Patient: AUGUSTO GUZMAN Admit Date: 11/13/20 MR#: [id number] Address1: [employer] [address] [place] Acct ID:[id number] Address2: Date: 1960 [facility] Zip: [place] [address] Age: 60 Location: ED Sex: F Room/Bed: Att Phy: Diagnosis: BACK PAIN,SHARP/SHOCKING PAINS IN HEAD,SOB Nataliia Phy: Suad De León DO Service Date: 11/13/20 Fam Phy: Interpreting Phy: Phil Devries MD Admit Phy: Ordering Phy: Juan Pablo Eubanks DO cc: ~ CT OF THE HEAD WITHOUT CONTRAST CLINICAL HISTORY: Right-sided headache. COMPARISON STUDY: MRI of the brain May 21, 2020. Head CT May 15, 2019. CT DOSE: 614.27 mGy.cm TECHNIQUE: Helical axial images of the head were obtained without IV contrast. Automated exposure control was utilized for the study. A dose lowering technique was utilized adhering to the principles of ALARA. FINDINGS: No acute intracranial hemorrhage, midline shift or mass effect is present. The ventricular system is unremarkable. White matter hypodensities likely reflect small vessel disease. The basal cisterns are patent. No extra- axial collections are present. There are no findings to suggest acute dural sinus thrombosis or acute territorial infarct. No significant calvarial abnormalities are present. Visualized portions of the sinuses and mastoid air cells are clear. IMPRESSION: No acute intracranial findings. ACT 112: Negative or not required by law. Electronically signed by: Phil Devries M.D. 11/13/2020 4:37 PM Dictated: 11/13/20 1634 Transcribed: 11/13/201633 Patient: AUGUSTO GUZMAN Admit Date: 11/13/20 MR#: [id number] Address1: [employer] [place] Acct ID:[id number] Address2: Date: 1960 [facility] Zip: [place] [address] Age: 60 Location: ED Sex: F Room/Bed: Att Phy: Diagnosis: BACK PAIN,SHARP/SHOCKING PAINS IN HEAD,SOB Nataliia Phy: Suad De León DO Service Date: 11/13/20 Fam Phy: Interpreting Phy: Phil Devries MD Admit Phy: Ordering Phy: Juan Pablo Eubakns DO cc: ~ XR chest 1V portable CLINICAL HISTORY: weakness COMPARISON STUDY: Chest CT August 22, 2020. Chest radiograph October 31, 2020. FINDINGS: Right subclavian pacer/AICD is in place. There is moderate cardiomegaly. No pneumothorax or pleural effusion is noted. There is minimal left midlung opacity. There is no radiographic evidence for pulmonary edema. IMPRESSION: 1. Minimal left midlung opacity which may reflect an infectious process. 2. Cardiomegaly without evidence for pulmonary edema. ACT 112: Negative or not required by law. Electronically signed by: Phil Devries M.D. 11/13/2020 4:12 PM Dictated: 11/13/20 1610 Transcribed: 11/13/20 1610 Blood Pressure Blood Pressure Findings: Normal blood pressure Discharge Plan Visit Data Chief Complaint: Illness Stated Complaint: BACK PAIN,SHARP/SHOCKING PAINS IN HEAD,SOB ED Provider: Juan Pablo Eubanks Discharge Problem: Headache, COVID-19, Hypomagnesemia, Hypoglycemia, Hypocalcemia Patient Disposition: Being Evaluated by Hospitalist Condition: Good Forms Stand Alone Forms: [employer] Prescriptions Prescriptions: No Action duloxetine 60 mg Capsule,Delayed Release(Dr/Ec) 60 mg PO QAM RF: 0 folic acid 1 mg Tablet 1 mg PO HS RF: 0 sumatriptan succinate 25 mg Tablet 50 mg PO DIRECTED PRN (Reason: Migraine Headache) RF: 0 gabapentin 300 mg capsule 300 mg PO TID RF: 0 albuterol sulfate [Ventolin HFA] 90 mcg/actuation Hfa Aerosol Inhaler 2 puff INHALATION Q4H PRN (Reason: Wheezing) RF: 0 ondansetron 4 mg tablet,disintegrating 4 mg translingual Q8H PRN (Reason: Nausea) RF: 0 nitroglycerin [Nitrostat] 0.4 mg tablet, sublingual 0.4 mg sublingual DIRECTED PRN (Reason: Chest Pain) RF: 0 fluticasone propion-salmeterol [Advair Diskus] 500-50 mcg/dose Blister With Device 1 inh INHALATION BID RF: 0 spironolactone [Aldactone] 25 mg Tablet 25 mg PO QAM RF: 0 metoprolol succinate 100 mg tablet extended release 24 hr 100 mg PO BID RF: 0 mirtazapine 45 mg Tablet 45 mg PO HS RF: 0 ropinirole 0.5 mg Tablet 0.5 mg PO HS RF: 0 atorvastatin [Lipitor] 40 mg tablet 40 mg PO QAM RF: 0 isosorbide mononitrate 30 mg Tablet Extended Release 24 Hr 30 mg PO QAM RF: 0 pantoprazole 40 mg Tablet,Delayed Release (Dr/Ec) 40 mg PO BID RF: 0 aspirin 81 mg Tablet,Chewable 81 mg PO DAILY RF: 0 Januvia 100 mg Tablet 100 mg PO DAILY RF: 0 Lactobacillus acidoph-L.bulgar [Floranex] 1 million cell Tablet 1 tab PO TID RF: 0 clopidogrel 75 mg Tablet 75 mg PO QAM Qty: 30 RF: 2 metformin [Glucophage] 500 mg Tablet 500 mg PO BIDM Qty: 0 RF: 0 albuterol sulfate 2.5 mg /3 mL (0.083 %) solution for nebulization 3 ml Inhalation Q4H PRN (Reason: Wheezing) RF: 0 diphenoxylate-atropine [Lomotil] 2.5-0.025 mg Tablet 1 tab PO QID PRN (Reason: Diarrhea) RF: 0 verapamil 40 mg tablet 40 mg PO QID RF: 0 torsemide 10 mg Tablet See Rx Instructions .ROUTE .COMPLEX RF: 0 budesonide 0.5 mg/2 mL suspension for nebulization 0.5 mg inhalation Q12 RF: 0 insulin asp prt-insulin aspart [Novolog Mix 70-30FlexPen U-100] 100 unit/mL (70-30) insulin pen 55 unit SUBCUT DAILYBB RF: 0 insulin asp prt-insulin aspart [Novolog Mix 70-30FlexPen U-100] 100 unit/mL (70-30) insulin pen 25 unit SUBCUT DAILYBD RF: 0 Referrals Referrals: Suad De León DO [Primary Care Provider] - Discharge Problem: Headache Qualifiers: Headache type: unspecified Headache chronicity pattern: unspecified pattern Int ractability: not intractable Qualified Code(s): R51.9 - Headache, unspecified
--- NOTE | 2020-11-13 16:13 | XRay Report ---
XR chest 1V portable CLINICAL HISTORY: weakness COMPARISON STUDY: Chest CT August 22, 2020. Chest radiograph October 31, 2020. FINDINGS: Right subclavian pacer/AICD is in place. There is moderate cardiomegaly. No pneumothorax or pleural effusion is noted. There is minimal left midlung opacity. There is no radiographic evidence for pulmonary edema. IMPRESSION: 1. Minimal left midlung opacity which may reflect an infectious process. 2. Cardiomegaly without evidence for pulmonary edema. ACT 112: Negative or not required by law. Electronically signed by: Phil Devries M.D. 11/13/2020 4:12 PM
[2020-11-13 16:23] LABS: Alanine Aminotransferase 12 U/L (12-78); Aspartate Aminotransferase 23 U/L (15-37); Bilirubin,Total 0.3 mg/dl (0.2-1); C Reactive Protein 4.38 mg/dl (0-0.29); Carbon Dioxide 18 mmol/L (21-32); Chloride 125 mmol/L (98-107); Est GFR (African American) 66.7; Est GFR (Non-African American) 57.5; Glucose 41 mg/dl (70-99); Potassium 2.7 mmol/L (3.5-5.1); Sodium 150 mmol/L (136-145); Total Protein 4.3 gm/dl (6.4-8.2)
[2020-11-13 16:24] LABS: Albumin Globulin Ratio 0.9 (0.9-2); Alkaline Phosphatase 58 U/L (45-117); Blood Urea Nitrogen 24 mg/dl (7-18); Calcium 5.1 mg/dl (8.5-10.1); Troponin I 0.325 ng/ml (0-0.045)
--- NOTE | 2020-11-13 16:38 | CT Scan Report ---
CT OF THE HEAD WITHOUT CONTRAST CLINICAL HISTORY: Right-sided headache. COMPARISON STUDY: MRI of the brain May 21, 2020. Head CT May 15, 2019. CT DOSE: 614.27 mGy.cm TECHNIQUE: Helical axial images of the head were obtained without IV contrast. Automated exposure con trol was utilized for the study. A dose lowering technique was utilized adhering to the principles o f ALARA. FINDINGS: No acute intracranial hemorrhage, midline shift or mass effect is present. The ventricular system is unremarkable. White matter hypodensities likely reflect small vessel disease. The basal cis terns are patent. No extra-axial collections are present. There are no findings to suggest acute dura l sinus thrombosis or acute territorial infarct. No significant calvarial abnormalities are present. Visualized portions of the sinuses and mastoid air cells are clear. IMPRESSION: No acute intracranial findings. ACT 112: Negative or not required by law. Electronically signed by: Phil Devries M.D. 11/13/2020 4:37 PM
[2020-11-13] MEDS: MAGNESIUM SULFATE / D5W 1 GM/100 ML BAG IV SCH ×2 (16:42→17:50)
[2020-11-13 16:53] LABS: Eosinophils # (auto) 0.01 K/uL (0-0.5); Eosinophils % (auto) 0.2 %; Hematocrit (blood only) 32.4 % (37-47); Hemoglobin 9.7 g/dL (12.0-16.0); Immature Granulocytes # (auto) 0.01 K/uL (0.00-0.02); Immature Granulocytes % (auto) 0.2 %; Lymphocytes # (auto) 0.55 K/uL (1.2-3.4); Lymphocytes % (auto) 11.2 %; Mean Corpuscular Hemoglobin 25.5 pg (25-34); Mean Corpuscular Hgb Conc 29.9 g/dL (32-36); Mean Platelet Volume 10.2 fL (7.4-10.4); Monocytes # (auto) 0.23 K/uL (0.11-0.59); Monocytes % (auto) 4.7 %; Neutrophils # (auto) 4.13 K/uL (1.4-6.5); Neutrophils % (auto) 83.7 %; Platelet Count 164 K/uL (130-400); RDW Coefficient of Variation 19.8 % (11.5-14.5); RDW Standard Deviation 61.5 fL (36.4-46.3); Red Blood Count 3.81 M/uL (4.2-5.4); White Blood Count 4.93 K/uL (4.8-10.8)
[2020-11-13] MEDS ORDERED: POTASSIUM CHLORIDE CRTAB 20 MEQ TABCR PO STA (17:27)
[2020-11-13 17:36] LABS: Base Excess VBG 0.3 mEq/L; Oxygen Saturation VBG 64.8 %; pH VBG 7.35 (7.36-7.41)
[2020-11-13 17:39] LABS: Phosphorus 1.8 mg/dl (2.5-4.9)
--- NOTE | 2020-11-13 18:15 | History & Physical Report ---
Date of Service November 13, 2020 Assessment & Plan (1) Headache: (2) COVID-19: Headache reported to be different from her migraines. Patient states that it is currently improving Headache, malaise, reported fever, worsening shortness of breath X-ray showing minimal left midlung opacity Covid 19+ Symptoms likely secondary to Covid Does not meets criteria for sepsis. However, get blood cultures CT head negative Discussed treatment options with patient. Patient agreed to therapy with dexamethasone and remdesivir We also discussed treatment with convalescent plasma. Patient wants to think about this further and get back to me about this later Monitor inflammatory markers with CRP, procalcitonin Currently at 2 L baseline oxygen requirement. Will monitor Telemetry monitoring In view of recent hospitalization and x-ray findings, give ceftriaxone plus azithromycin for now. Patient reports allergy to penicillin. Confirmed with pharmacy the patient has tolerated cephalosporins in the past. (3) Hypernatremia: (4) Hypophosphatemia: (5) Hypomagnesemia: (6) Hypokalemia: (7) Hypocalcemia: (8) Electrolyte abnormality: Multiple electrolyte abnormalities with critically low levels of phosphate, magnesium, potassium These are likely due to poor oral intake plus diuretics Patient also has hypernatremia Patient got some IV fluids in ER. We will hold off further IV fluids due to patient's history of heart failure. Hold diuretics for now Repleting phosphorus, magnesium, calcium, potassium aggressively Encourage oral intake (9) Hypoglycemia: Due to poor oral intake. Patient reported that she had only eaten an apple today but hungry now Give diet Pharmacy consult to aid with blood glucose monitoring and management of insulin Hold home oral antidiabetic (10) Elevated troponin: No chest pain. No ischemic changes. Troponin is chronically elevated We will check 1 more Telemetry monitoring (11) CAD (coronary artery disease), resighini coronary artery: (12) Cardiac defibrillator in place: (13) CHF (congestive heart failure): Patient does not appear to be in fluid overload at this time. However, wi ll monitor review of holding diuretics and getting IV fluid on presentation Continue Imdur and metoprolol succinate Continue aspirin, Plavix, statin (14) HLD (hyperlipidemia): Continue atorvastatin (15) Hypertension: Blood pressure currently normal. Has been running in high 90s-110s systolic We will hold verapamil for tonight (16) Anxiety: Continue home medication (17) DVT prophylaxis: Lovenox subcu History of Present Illness 60-year-old woman with history of diabetes, chronic hypoxic respiratory failure on 2 L of oxygen, CADENCE not on BiPAP, hypertrophic cardiomyopathy status post ICD, chronic diastolic heart failure, hypertension, CAD, CKD 3, irritable bowel syndrome, morbid obesity, migraines, depression who presents today complaining of headache and malaise. Patient does have history of migraines which she stated last episode was a month ago. However, over the past few days she has been having right-sided headache which she described as a thunderbolt, associated with nausea. Not associated with blurry vision or aura She stated that this headache is different from her migraine headaches. However, when asked to differentiate between the 2 patient could not. Reports of malaise over the past few days, associated with profound generalized weakness and worsening shortness of breath especially with minimal exertion. She reports that she has been having sore throat for a long time, associated with cough which has become productive. Reported temperature above 100 earlier today. Denied chest pain Denied abdominal pain, vomiting. Reports loose stool which is chronic and unchanged. Reports anorexia and poor oral intake. Reports adherence to her medications Denied hematochezia, melena Denies dysuria, frequency, urgency or incontinence Denies dizziness, blurry vision Patient was recently discharged on 11/04/2020. Was managed for acute diastolic heart failure, atypical chest pain patient was found dysphagia status post esophageal dilation and pancreatic cyst status post FNA on endoscopic EUS. On presentation to the ER, she was found to have hyponatremia 158, hypokalemia with potassium of 2.7, calcium of 5.1, glucose of 41, phosphorus of 1.8, magnesium of 1. Patient was also found to have COVID-19. Chest x-ray reported minimal left midlung opacity Patient denies smoking, denies alcohol use, denies illicit drug use Primary Care Provider: Suad De León, Allergies Allergy/AdvReac Type Severity Reaction Status Date / Time Penicillins Allergy Intermediate Flushing, Verified 10/31/20 21:35 Itchiness Sulfa (Sulfonamide Allergy Intermediate Swelling Verified 10/31/20 21:35 Antibiotics) doxycycline Allergy Unknown Unknown Verified 10/31/20 21:35 adhesive AdvReac Intermediate Blistering Verified 10/31/20 21:35 Home Medications Medication Instructions Recorded Confirmed Type duloxetine 60 mg PO QAM 08/09/18 11/13/20 History folic acid 1 mg PO HS 08/09/18 11/13/20 History sumatriptan succinate 50 mg PO DIRECTED PRN 08/09/18 11/13/20 History albuterol sulfate 3 ml INHALATION Q4H PRN 09/09/18 11/13/20 History diphenoxylate-atropine [Lomotil] 1 tab PO QID PRN 12/19/18 11/13/20 History albuterol sulfate [Ventolin HFA] 2 puff INHALATION Q4H PRN 06/30/19 11/13/20 History fluticasone propion-salmeterol 1 inh INHALATION BID 06/30/19 11/13/20 History [Advair Diskus] gabapentin 300 mg PO TID 06/30/19 11/13/20 History nitroglycerin [Nitrostat] 0.4 mg SUBLINGUAL DIRECTED PRN 06/30/19 11/13/20 History ondansetron 4 mg TRANSLINGUAL Q8H PRN 06/30/19 11/13/20 History spironolactone [Aldactone] 25 mg PO QAM 06/30/19 11/13/20 History metoprolol succinate 100 mg PO BID 09/25/19 11/13/20 History mirtazapine 45 mg PO HS 09/25/19 11/13/20 History ropinirole 0.5 mg PO HS 09/25/19 11/13/20 History budesonide 0.5 mg INHALATION Q12 01/13/20 11/13/20 History torsemide See Rx Instructions .ROUTE .COMPLEX 01/13/20 11/13/20 History verapamil 40 mg PO QID 01/13/20 11/13/20 History atorvastatin [Lipitor] 40 mg PO QAM 04/30/20 11/13/20 History insulin asp prt-insulin aspart 25 unit SUBCUT DAILYBD 07/07/20 11/13/20 History [Novolog Mix 70-30FlexPen U-100] insulin asp prt-insulin aspart 55 unit SUBCUT DAILYBB 07/07/20 11/13/20 History [Novolog Mix 70-30FlexPen U-100] Januvia 100 mg PO DAILY 07/28/20 11/13/20 History Lactobacillus acidoph-L.bulgar 1 tab PO TID 07/28/20 11/13/20 History [Floranex] aspirin 81 mg PO DAILY 07/28/20 11/13/20 History isosorbide mononitrate 30 mg PO QAM 07/28/20 11/13/20 History pantoprazole 40 mg PO BID 07/28/20 11/13/20 History clopidogrel 75 mg PO QAM #30 tab 07/30/20 11/13/20 Rx metformin [Glucophage] 500 mg PO BIDM #0 tab 07/30/20 11/13/20 Rx Past Med/Surg History Medical History (Updated 11/13/20 @ 19:43 by Anastacia Be MD) Anxiety Arthritis Asthma Cardiac defibrillator in place 2014 CHF (congestive heart failure) CKD (chronic kidney disease), stage III COPD (chronic obstructive pulmonary disease) Depression Depression with anxiety Diabetes mellitus, type 2 Elevated troponin Elevated troponin Fatty (change of) liver, not elsewhere classified GERD (gastroesophageal reflux disease) HLD (hyperlipidemia) Hydronephrosis of right kidney Hypertension Hypertrophic cardiomyopathy CADENCE (obstructive sleep apnea) on nocturnal O2 2L Pancreatic cyst Restless leg syndrome Surgical History H/O section 1979 & 1982 H/O hernia repair 2016 History of appendectomy 1970s History of colostomy reversal bowel perf 2013 with colostomy reversed in 2014 Status post internal cardiac defibrillator procedure "2015" Status post partial resection of colon "diverticulitis 11/05/14" Family History Other Hypertrophic cardiomyopathy Stomach cancer Thyroid disorder Social History Smoking Status: Never smoker Second Hand Exposure: No; Hx Alcohol Use: No Hx Substance Use: No Preferred Language: Azeri Communication Ability: Effective Rn Military Required: No Beliefs That Will Affect Care: Lutheran Lutheran Beliefs: Hinduism marital status: Current Living Situation: Spouse 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 Feels Safe at Home: Yes Assistive Devices: Oxygen - Continuous Review of Systems Review of Systems: All systems reviewed & are unremarkable except as noted in HPI & below Physical Exam Constitutional: + well hydrated and + obese; no acute distress Eyes: PERRL, conjunctivae normal, anicteric sclerae ENMT: external ear and nose normal, oropharynx normal Respiratory: no respiratory distress Occasionally had some conversational dyspnea, on 2 L/min of nasal oxygen Diminished breath sounds bilaterally Cardiovascular: Rate/Rhythm: regular rate and regular rhythm S1 and S2, +1 pedal edema bilaterally Gastrointestinal (Abdomen): normal bowel sounds, soft, nontender, no hepatosplenomegaly Musculoskeletal: no cyanosis or clubbing, extremities motor strength 5/5 +1 pedal edema bilaterally Neurologic: PERRL, EOMI, accommodation nl, no face palsy, no dysarthria Psychiatric: A+Ox3, euthymic affect Results & Data Results & Data ([facility]) Vital Signs (Past 12 Hours) Vital Signs Pulse Pulse Resp BP BP Pulse Ox 11/13/20 17:02 63 18 120/73 96 11/13/20 16:40 98 11/13/20 14:24 62 20 92/52 L 100 Laboratory Results Laboratory Results - last 24 hr 11/13/20 11/13/20 11/13/20 15:37 15:37 15:37 WBC Cancelled RBC Cancelled Hgb Cancelled Hct Cancelled MCV Cancelled MCH Cancelled MCHC Cancelled RDW Std Deviation Cancelled RDW Coeff of Rolan Cancelled Plt Count Cancelled MPV Cancelled Immature Gran % (Auto) Cancelled Neut % (Auto) Cancelled Lymph % (Auto) Cancelled Citrus % (Auto) Cancelled Eos % (Auto) Cancelled Baso % (Auto) Cancelled Neut # (Auto) Cancelled Lymph # (Auto) Cancelled Citrus # (Auto) Cancelled Eos # (Auto) Cancelled Baso # (Auto) Cancelled Immature Gran # (Auto) Cancelled Absolute Nucleated RBC Cancelled Nucleated RBC % (auto) Cancelled Neutrophils % (Manual) Cancelled Band Neutrophils % Cancelled Lymphocytes % (Manual) Cancelled Prolymphocyte % Cancelled Reactive Lymphs % (Man) Cancelled Monocytes % (Manual) Cancelled Eosinophils % (Manual) Cancelled Basophils % (Manual) Cancelled Metamyelocytes % (Man) Cancelled Myelocytes % (Man) Cancelled Promyelocytes % (Man) Cancelled Blast Cells % (Manual) Cancelled Plasma Cell % (Manual) Cancelled Other Cells % Cancelled Nucleated RBC % Cancelled Neutrophils # (Manual) Cancelled Band Neutrophils # Cancelled Total Absolute Neuts Cancelled Lymphocytes # (Manual) Cancelled Prolymphocyte # Cancelled Reactive Lymphs # Cancelled Total Abs Lymphocytes Cancelled Monocytes # (Manual) Cancelled Eosinophils # (Manual) Cancelled Basophils # (Manual) Cancelled Metamyelocytes # (Man) Cancelled Myelocytes # (Manual) Cancelled Promyelocytes # (Man) Cancelled Blast Cells # (Man) Cancelled Plasma Cell # (Manual) Cancelled Other Cells # Cancelled Nucleated RBCs # (Man) Cancelled Hypersegmented Neuts Cancelled Hyposegmented Neuts Cancelled Hypogranular Neuts Cancelled Large Granular Lymphs Cancelled # Lrg Granular Lymphs Cancelled Hairy Cells Cancelled Smudge Cells Cancelled Toxic Granulation Cancelled Toxic Vacuolation Cancelled Dohle Bodies Cancelled Sukhjinder Rods Cancelled Platelet Estimate Cancelled Hypogranular Platelets Cancelled Clumped Platelets Cancelled Giant Platelets Cancelled Platelet Satelliting Cancelled RBC Morphology Cancelled Polychromasia Cancelled Hypochromasia Cancelled Poikilocytosis Cancelled Basophilic Stippling Cancelled Anisocytosis Cancelled Microcytosis Cancelled Macrocytosis Cancelled Spherocytes Cancelled Pappenheimer Bodies Cancelled Sickle Cells Cancelled Target Cells Cancelled Tear Drop Cells Cancelled Ovalocytes Cancelled Stomatocytes Cancelled Mas-[place] Bodies Cancelled Echinocytes Cancelled Acanthocytes (Spur) Cancelled Rouleaux Cancelled RBC Agglutinates Cancelled Schistocytes Cancelled RBC Morph Comment Cancelled ESR Cancelled Sezary Cell Cancelled PT Cancelled INR Cancelled APTT Cancelled PTT Ratio Cancelled VBG pH VBG pCO2 VBG pO2 VBG HCO3 VBG O2 Saturation VBG Base Excess Barometric Pressure Sodium Potassium Chloride Carbon Dioxide Anion Gap BUN Creatinine Est Cr Clr Drug Dosing Est GFR ( Amer) Est GFR (Non-Af Amer) BUN/Creatinine Ratio Glucose POC Glucose Calcium Ionized Calcium Phosphorus Magnesium Total Bilirubin AST ALT Alkaline Phosphatase Troponin I C-Reactive Protein Total Protein Albumin Globulin Albumin/Globulin Ratio TSH SARS-CoV-2, RNA, NAAT SARS-CoV-2 Ag (Rapid) 11/13/20 11/13/20 11/13/20 15:37 16:36 16:37 WBC 4.93 RBC 3.81 L Hgb 9.7 L Hct 32.4 L MCV 85.0 MCH 25.5 MCHC 29.9 L RDW Std Deviation 61.5 H RDW Coeff of Rolan 19.8 H Plt Count 164 MPV 10.2 Immature Gran % (Auto) 0.2 Neut % (Auto) 83.7 Lymph % (Auto) 11.2 Citrus % (Auto) 4.7 Eos % (Auto) 0.2 Baso % (Auto) 0.0 Neut # (Auto) 4.13 Lymph # (Auto) 0.55 L Citrus # (Auto) 0.23 Eos # (Auto) 0.01 Baso # (Auto) 0.00 Immature Gran # (Auto) 0.01 Absolute Nucleated RBC Nucleated RBC % (auto) Neutrophils % (Manual) Band Neutrophils % Lymphocytes % (Manual) Prolymphocyte % Reactive Lymphs % (Man) Monocytes % (Manual) Eosinophils % (Manual) Basophils % (Manual) Metamyelocytes % (Man) Myelocytes % (Man) Promyelocytes % (Man) Blast Cells % (Manual) Plasma Cell % (Manual) Other Cells % Nucleated RBC % Neutrophils # (Manual) Band Neutrophils # Total Absolute Neuts Lymphocytes # (Manual) Prolymphocyte # Reactive Lymphs # Total Abs Lymphocytes Monocytes # (Manual) Eosinophils # (Manual) Basophils # (Manual) Metamyelocytes # (Man) Myelocytes # (Manual) Promyelocytes # (Man) Blast Cells # (Man) Plasma Cell # (Manual) Other Cells # Nucleated RBCs # (Man) Hypersegmented Neuts Hyposegmented Neuts Hypogranular Neuts Large Granular Lymphs # Lrg Granular Lymphs Hairy Cells Smudge Cells Toxic Granulation Toxic Vacuolation Dohle Bodies Sukhjinder Rods Platelet Estimate Hypogranular Platelets Clumped Platelets Giant Platelets Platelet Satelliting RBC Morphology Polychromasia Hypochromasia Poikilocytosis Basophilic Stippling Anisocytosis Microcytosis Macrocytosis Spherocytes Pappenheimer Bodies Sickle Cells Target Cells Tear Drop Cells Ovalocytes Stomatocytes Mas-[place] Bodies Echinocytes Acanthocytes (Spur) Rouleaux RBC Agglutinates Schistocytes RBC Morph Comment ESR Sezary Cell PT INR APTT PTT Ratio VBG pH VBG pCO2 VBG pO2 VBG HCO3 VBG O2 Saturation VBG Base Excess Barometric Pressure Sodium 150 H Potassium 2.7 L Chloride 125 H Carbon Dioxide 18 L Anion Gap 7.0 BUN 24 H Creatinine 1.04 Est Cr Clr Drug Dosing Not Reportable Est GFR ( Amer) 66.7 Est GFR (Non-Af Amer) 57.5 BUN/Creatinine Ratio 23.0 H Glucose 41 L* POC Glucose 56 L* Calcium 5.1 L* Ionized Calcium Phosphorus 1.8 L Magnesium 1.0 L Total Bilirubin 0.3 AST 23 ALT 12 Alkaline Phosphatase 58 Troponin I 0.325 H* C-Reactive Protein 4.38 H Total Protein 4.3 L Albumin 2.0 L Globulin Pending Albumin/Globulin Ratio 0.9 TSH 1.190 SARS-CoV-2, RNA, NAAT SARS-CoV-2 Ag (Rapid) 11/13/20 11/13/20 11/13/20 16:37 17:15 17:17 WBC RBC Hgb Hct MCV MCH MCHC RDW Std Deviation RDW Coeff of Rolan Plt Count MPV Immature Gran % (Auto) Neut % (Auto) Lymph % (Auto) Citrus % (Auto) Eos % (Auto) Baso % (Auto) Neut # (Auto) Lymph # (Auto) Citrus # (Auto) Eos # (Auto) Baso # (Auto) Immature Gran # (Auto) Absolute Nucleated RBC Nucleated RBC % (auto) Neutrophils % (Manual) Band Neutrophils % Lymphocytes % (Manual) Prolymphocyte % Reactive Lymphs % (Man) Monocytes % (Manual) Eosinophils % (Manual) Basophils % (Manual) Metamyelocytes % (Man) Myelocytes % (Man) Promyelocytes % (Man) Blast Cells % (Manual) Plasma Cell % (Manual) Other Cells % Nucleated RBC % Neutrophils # (Manual) Band Neutrophils # Total Absolute Neuts Lymphocytes # (Manual) Prolymphocyte # Reactive Lymphs # Total Abs Lymphocytes Monocytes # (Manual) Eosinophils # (Manual) Basophils # (Manual) Metamyelocytes # (Man) Myelocytes # (Manual) Promyelocytes # (Man) Blast Cells # (Man) Plasma Cell # (Manual) Other Cells # Nucleated RBCs # (Man) Hypersegmented Neuts Hyposegmented Neuts Hypogranular Neuts Large Granular Lymphs # Lrg Granular Lymphs Hairy Cells Smudge Cells Toxic Granulation Toxic Vacuolation Dohle Bodies Sukhjinder Rods Platelet Estimate Hypogranular Platelets Clumped Platelets Giant Platelets Platelet Satelliting RBC Morphology Polychromasia Hypochromasia Poikilocytosis Basophilic Stippling Anisocytosis Microcytosis Macrocytosis Spherocytes Pappenheimer Bodies Sickle Cells Target Cells Tear Drop Cells Ovalocytes Stomatocytes Msa-[place] Bodies Echinocytes Acanthocytes (Spur) Rouleaux RBC Agglutinates Schistocytes RBC Morph Comment ESR 40 H Sezary Cell PT Cancelled INR Cancelled APTT Cancelled PTT Ratio Cancelled VBG pH VBG pCO2 VBG pO2 VBG HCO3 VBG O2 Saturation VBG Base Excess Barometric Pressure Sodium Potassium Chloride Carbon Dioxide Anion Gap BUN Creatinine Est Cr Clr Drug Dosing Est GFR ( Amer) Est GFR (Non-Af Amer) BUN/Creatinine Ratio Glucose POC Glucose Calcium Ionized Calcium Phosphorus Magnesium Total Bilirubin AST ALT Alkaline Phosphatase Troponin I C-Reactive Protein Total Protein Albumin Globulin Albumin/Globulin Ratio TSH SARS-CoV-2, RNA, NAAT POSITIVE A* SARS-CoV-2 Ag (Rapid) 11/13/20 11/13/20 11/13/20 17:17 17:17 17:42 WBC RBC Hgb Hct MCV MCH MCHC RDW Std Deviation RDW Coeff of Rolan Plt Count MPV Immature Gran % (Auto) Neut % (Auto) Lymph % (Auto) Citrus % (Auto) Eos % (Auto) Baso % (Auto) Neut # (Auto) Lymph # (Auto) Citrus # (Auto) Eos # (Auto) Baso # (Auto) Immature Gran # (Auto) Absolute Nucleated RBC Nucleated RBC % (auto) Neutrophils % (Manual) Band Neutrophils % Lymphocytes % (Manual) Prolymphocyte % Reactive Lymphs % (Man) Monocytes % (Manual) Eosinophils % (Manual) Basophils % (Manual) Metamyelocytes % (Man) Myelocytes % (Man) Promyelocytes % (Man) Blast Cells % (Manual) Plasma Cell % (Manual) Other Cells % Nucleated RBC % Neutrophils # (Manual) Band Neutrophils # Total Absolute Neuts Lymphocytes # (Manual) Prolymphocyte # Reactive Lymphs # Total Abs Lymphocytes Monocytes # (Manual) Eosinophils # (Manual) Basophils # (Manual) Metamyelocytes # (Man) Myelocytes # (Manual) Promyelocytes # (Man) Blast Cells # (Man) Plasma Cell # (Manual) Other Cells # Nucleated RBCs # (Man) Hypersegmented Neuts Hyposegmented Neuts Hypogranular Neuts Large Granular Lymphs # Lrg Granular Lymphs Hairy Cells Smudge Cells Toxic Granulation Toxic Vacuolation Dohle Bodies Sukhjinder Rods Platelet Estimate Hypogranular Platelets Clumped Platelets Giant Platelets Platelet Satelliting RBC Morphology Polychromasia Hypochromasia Poikilocytosis Basophilic Stippling Anisocytosis Microcytosis Macrocytosis Spherocytes Pappenheimer Bodies Sickle Cells Target Cells Tear Drop Cells Ovalocytes Stomatocytes Mas-[place] Bodies Echinocytes Acanthocytes (Spur) Rouleaux RBC Agglutinates Schistocytes RBC Morph Comment ESR Sezary Cell PT INR APTT PTT Ratio VBG pH 7.35 L VBG pCO2 48 VBG pO2 36 VBG HCO3 26 VBG O2 Saturation 64.8 VBG Base Excess 0.3 Barometric Pressure 733.6 Sodium Potassium Chloride Carbon Dioxide Anion Gap BUN Creatinine Est Cr Clr Drug Dosing Est GFR ( Amer) Est GFR (Non-Af Amer) BUN/Creatinine Ratio Glucose POC Glucose 81 Calcium Ionized Calcium 1.00 L Phosphorus Magnesium Total Bilirubin AST ALT Alkaline Phosphatase Troponin I C-Reactive Protein Total Protein Albumin Globulin Albumin/Globulin Ratio TSH SARS-CoV-2, RNA, NAAT SARS-CoV-2 Ag (Rapid) 11/13/20 Unknown WBC RBC Hgb Hct MCV MCH MCHC RDW Std Deviation RDW Coeff of Rolan Plt Count MPV Immature Gran % (Auto) Neut % (Auto) Lymph % (Auto) Citrus % (Auto) Eos % (Auto) Baso % (Auto) Neut # (Auto) Lymph # (Auto) Citrus # (Auto) Eos # (Auto) Baso # (Auto) Immature Gran # (Auto) Absolute Nucleated RBC Nucleated RBC % (auto) Neutrophils % (Manual) Band Neutrophils % Lymphocytes % (Manual) Prolymphocyte % Reactive Lymphs % (Man) Monocytes % (Manual) Eosinophils % (Manual) Basophils % (Manual) Metamyelocytes % (Man) Myelocytes % (Man) Promyelocytes % (Man) Blast Cells % (Manual) Plasma Cell % (Manual) Other Cells % Nucleated RBC % Neutrophils # (Manual) Band Neutrophils # Total Absolute Neuts Lymphocytes # (Manual) Prolymphocyte # Reactive Lymphs # Total Abs Lymphocytes Monocytes # (Manual) Eosinophils # (Manual) Basophils # (Manual) Metamyelocytes # (Man) Myelocytes # (Manual) Promyelocytes # (Man) Blast Cells # (Man) Plasma Cell # (Manual) Other Cells # Nucleated RBCs # (Man) Hypersegmented Neuts Hyposegmented Neuts Hypogranular Neuts Large Granular Lymphs # Lrg Granular Lymphs Hairy Cells Smudge Cells Toxic Granulation Toxic Vacuolation Dohle Bodies Sukhjinder Rods Platelet Estimate Hypogranular Platelets Clumped Platelets Giant Platelets Platelet Satelliting RBC Morphology Polychromasia Hypochromasia Poikilocytosis Basophilic Stippling Anisocytosis Microcytosis Macrocytosis Spherocytes Pappenheimer Bodies Sickle Cells Target Cells Tear Drop Cells Ovalocytes Stomatocytes Mas-[place] Bodies Echinocytes Acanthocytes (Spur) Rouleaux RBC Agglutinates Schistocytes RBC Morph Comment ESR Sezary Cell PT INR APTT PTT Ratio VBG pH VBG pCO2 VBG pO2 VBG HCO3 VBG O2 Saturation VBG Base Excess Barometric Pressure Sodium Potassium Chloride Carbon Dioxide Anion Gap BUN Creatinine Est Cr Clr Drug Dosing Est GFR ( Amer) Est GFR (Non-Af Amer) BUN/Creatinine Ratio Glucose POC Glucose Calcium Ionized Calcium Phosphorus Magnesium Total Bilirubin AST ALT Alkaline Phosphatase Troponin I C-Reactive Protein Total Protein Albumin Globulin Albumin/Globulin Ratio TSH SARS-CoV-2, RNA, NAAT SARS-CoV-2 Ag (Rapid) Positive A* Diagnostic Findings Chest x-ray Right subclavian pacer/AICD is in place. There is moderate cardiomegaly. No pneumothorax or pleural effusion is noted. There is minimal left midlung opacity. There is no radiographic evidence for pulmonary edema. IMPRESSION: 1. Minimal left midlung opacity which may reflect an infectious process. 2. Cardiomegaly without evidence for pulmonary edema. CT head No acute intracranial hemorrhage, midline shift or mass effect is present. The ventricular system is unremarkable. White matter hypodensities likely reflect small vessel disease. The basal cisterns are patent. No extra-axial collections are present. There are no findings to suggest acute dural sinus thrombosis or acute territorial infarct. No significant calvarial abnormalities are present. Visualized portions of the sinuses and mastoid air cells are clear. IMPRESSION: No acute intracranial findings. (1) Headache Headache chronicity pattern: unspecified pattern Headache type: unspecified Intractability: not intractable Qualified Code(s): R51.9 - Headache, unspecified (2) CAD (coronary artery disease), resighini coronary artery [place] vs. transplanted heart: resighini heart Associated angina: with unstable angina Qualified Code(s): I25.110 - Atherosclerotic heart disease of resighini coronary artery with unstable angina pectoris
[2020-11-13] MEDS ORDERED: REMDESIVIR 200 MG in SODIUM CHLORIDE 0.9% 210 ML IV STA (19:00)
[2020-11-13] MEDS ORDERED: POTASSIUM PHOS 3 MMOL/1 ML INFUSION IV STA (19:08)
[2020-11-13] MEDS ORDERED: CALCIUM GLUCONATE 10% 2,000 MG in SODIUM CHLORIDE 0.9% 50 ML IV ONE (19:08)
[2020-11-13] MEDS ORDERED: CONSULT PHARMACY STA (19:18)
[2020-11-13] MEDS ORDERED: POTASSIUM PHOSPHATE 40 MMOL in SODIUM CHLORIDE 0.9% 1000ML 1,000 ML IV ONE (20:00)
[2020-11-13] MEDS: dexAMETHasone 4 MG TAB PO SCH (20:33)
[2020-11-13 20:46] LABS: INR 1.1 (0.9-1.1); Partial Thromboplastin Ratio 1.1; Partial Thromboplastin Time 31.3 Seconds (21.0-31.0); Prothrombin Time 11.9 Seconds (9.0-12.0)
[2020-11-13 20:58] LABS: BUN Creatinine Ratio 17.4 (10-20); Calcium 7.9 mg/dl (8.5-10.1); Creatinine Clr Calc Pharmacy 27.3 ml/min; Est GFR (Non-African American) 26.7
[2020-11-13 21:07] LABS: Globulin 2.3 gm/dl (2.5-4.0)
[2020-11-13 21:16] LABS: Potassium 4.2 mmol/L (3.5-5.1)
[2020-11-14 01:30] LABS: Appearance Urine Cloudy (Clear); Bacteria Urine Automated 1+ (Negative); Bilirubin Urine Negative (Negative); Blood Urine Negative (Negative); Color Urine Yellow; Epithelial Cell Urine Auto >30 /lpf (0-5); Glucose Urine UA Negative (Negative); Ketones Urine Negative (Negative); Leukocyte Esterase Urine 2+ (Negative); Nitrite Urine Negative (Negative); Protein Urine Trace (Negative); RBC Urine Automated 0-4 /hpf (0-4); Urobilinogen Urine Negative (Negative); WBC Urine Automated >30 /hpf (0-5)
[2020-11-14] MEDS ORDERED: MAGNESIUM SULFATE / D5W 1 GM/100 ML BAG IV ONE (02:46)
[2020-11-14] MEDS ORDERED: ALBUTEROL HFA 8 GM INHALER INH PRN (02:46)
[2020-11-14] MEDS ORDERED: VERAPAMIL HCL 40 MG TAB PO SCH (02:46)
[2020-11-14] MEDS ORDERED: AZITHROMYCIN 250 MG TAB PO STA (02:58)
[2020-11-14 03:53] LABS: Hematocrit (blood only) 33.6 % (37-47); Hemoglobin 9.8 g/dL (12.0-16.0); Mean Corpuscular Hemoglobin 25.1 pg (25-34); Mean Corpuscular Hgb Conc 29.2 g/dL (32-36); Mean Corpuscular Volume 86.2 fL (80-100); Mean Platelet Volume 9.8 fL (7.4-10.4); Platelet Count 167 K/uL (130-400); RDW Standard Deviation 63.2 fL (36.4-46.3); White Blood Count 4.25 K/uL (4.8-10.8)
[2020-11-14] MEDS: METOPROLOL SUCC 50MG EXT REL TAB PO SCH ×3 (04:07→20:31)
[2020-11-14] MEDS: VERAPAMIL HCL 40 MG TAB PO SCH ×5 (04:08→20:30)
[2020-11-14] MEDS: rOPINIRole HCL 0.25 MG TABLET PO SCH ×2 (04:09→20:30)
[2020-11-14] MEDS: PANTOprazole 40 MG TAB PO SCH ×3 (04:10→20:30)
[2020-11-14] MEDS: FOLIC ACID 1 MG TAB PO SCH ×2 (04:10→20:30)
[2020-11-14] MEDS: MIRTAZAPINE SOLTAB 15 MG PO SCH ×2 (04:11→20:30)
[2020-11-14] MEDS: GABAPENTIN 300 MG CAP PO SCH ×4 (04:11→20:30)
[2020-11-14] MEDS: cefTRIAXone SODIUM 2,000 MG in DEXTROSE 5% 50 ML IV SCH (04:12)
[2020-11-14 04:28] LABS: C Reactive Protein 8.87 mg/dl (0-0.29); Magnesium 2.5 mg/dl (1.8-2.4); Phosphorus 8.2 mg/dl (2.5-4.9)
[2020-11-14 04:30] LABS: BUN Creatinine Ratio 19.4 (10-20); Calcium 8.1 mg/dl (8.5-10.1); Creatinine Clr Calc Pharmacy 30.4 ml/min; Est GFR (African American) 35.3; Est GFR (Non-African American) 30.5; Potassium 6.2 mmol/L (3.5-5.1); Troponin I 0.287 ng/ml (0-0.045)
[2020-11-14] MEDS ORDERED: CALCIUM GLUCONATE 10% 2,000 MG in SODIUM CHLORIDE 0.9% 50 ML IV ONE (04:34)
[2020-11-14] MEDS ORDERED: DEXTROSE 50% 50 ML SYRINGE IV STA (04:34)
[2020-11-14] MEDS ORDERED: INSULIN HUMAN REGULAR PER UNIT 10 UNITS in SYRINGE 9.9 ML IV STA (04:34)
[2020-11-14] MEDS ORDERED: SODIUM POLYSTYRENE SULFONATE 15G/60ML SUSP PO STA (04:35)
[2020-11-14] MEDS: BUDESONIDE 0.5 MG/2 ML VIAL (PULMICORT) INH SCH ×3 (04:56→19:28)
[2020-11-14] MEDS: FLUTICASONE/VILANTEROL 200/25MCG 14 PUFFS/INHALER INH SCH (08:26)
[2020-11-14] MEDS: ENOXAPARIN INJ 40 MG/0.4 ML SYR SQ SCH (08:26)
[2020-11-14] MEDS: dexAMETHasone 4 MG TAB PO SCH (08:26)
[2020-11-14] MEDS: ASPIRIN 81 MG ECTAB PO SCH (08:32)
[2020-11-14] MEDS: ISOSORBIDE MONO EXTENDED REL 30 MG TABCR PO SCH (08:32)
[2020-11-14] MEDS: CLOPIDOGREL BISULFATE 75 MG TAB PO SCH (08:32)
[2020-11-14] MEDS: DULoxetine HCL 60 MG CAP PO SCH (08:37)
[2020-11-14] MEDS: ATORVASTATIN 40 MG TAB PO SCH (08:37)
[2020-11-14] MEDS: ADVANCED PROBIOTIC 1250 MG CAPSULE PO SCH ×3 (08:37→20:30)
--- NOTE | 2020-11-14 09:59 | Hospitalist Progress Note ---
Date of Service November 14, 2020 Assessment & Plan (1) Headache: (2) COVID-19: Headache, malaise, reported fever, worsening shortness of breath X-ray showing minimal left midlung opacity Covid 19+ Symptoms likely secondary to Covid Symptoms improving Does not meets criteria for sepsis. However, get blood cultures CT head negative Continue dexamethasone and remdesivir She does not want convalescent plasma at this time Continue ceftriaxone and azithromycin Currently at 2 L baseline oxygen requirement. Will monitor (3) Hypernatremia: (4) Hypophosphatemia: (5) Hypomagnesemia: (6) Hypokalemia: (7) Hypocalcemia: (8) Electrolyte abnormality: Multiple electrolyte abnormalities with critically low levels of phosphate(1.8), magnesium(1), potassium (2.7), calcium (7.9 with ionized Ca of 1) These are likely due to poor oral intake plus diuretics Patient also has hypernatremia 150 Patient got some IV fluids in ER. Electrolytes were repleted K this AM was 6.2, repeat this afternoon was 4.9 Encourage oral intake Resume home diuretics as patient has CHF (9) Hypoglycemia: Due to poor oral intake. Hypoglycemia resolved Continue to monitor glucose and manage per protocol. Pharm on board Hold home oral antidiabetic (10) Elevated troponin: No chest pain. No ischemic changes. Troponin is chronically elevated Telemetry monitoring (11) CAD (coronary artery disease), [place] coronary artery: (12) Cardiac defibrillator in place: (13) CHF (congestive heart failure): Patient does not appear to be in fluid overload at this time. Continue Imdur and metoprolol succinate Continue aspirin, Plavix, statin Resume home diuretics and monitor electrolytes (14) HLD (hyperlipidemia): Continue atorvastatin (15) Hypertension: Blood pressure currently normal. Continue to hold verapamil for now (16) Anxiety: Continue home medication (17) DVT prophylaxis: Lovenox subcu Admission and Anticipated Discharge Date Admission Date: November 13, 2020 Subjective Patient seen and examined Reports feeling slightly better today Still reports weakness. No headache at this time. Still has cough, BRUSH Denied chest pain No fevers or chills Review of Systems Review of Systems: All systems reviewed & are unremarkable except as noted in Subjective Physical Exam Constitutional: + well hydrated and + obese; no acute distress Eyes: PERRL, conjunctivae normal, anicteric sclerae ENMT: external ear and nose normal, oropharynx normal Respiratory: no respiratory distress On 2 L/min. Diminished breath sounds lung bases Cardiovascular: Rate/Rhythm: regular rate and regular rhythm S1 S2, +1 pedal edema Gastrointestinal (Abdomen): normal bowel sounds, soft, nontender, no hepatosplenomegaly Musculoskeletal: no cyanosis or clubbing, extremities motor strength 5/5 Neurologic: PERRL, EOMI, accommodation nl, no face palsy, no dysarthria Psychiatric: A+Ox3, euthymic affect Results & Data Results & Data ([facility]) Vital Signs (Past 12 Hours) Vital Signs Temp Pulse Pulse Resp BP BP Pulse Ox 11/14/20 07:46 65 18 95 11/14/20 07:41 37 C 68 16 115/89 94 11/14/20 04:19 70 23 122/70 100 11/14/20 02:43 70 20 102/60 97 11/14/20 01:14 67 22 174/81 H 99 11/14/20 00:22 71 18 137/81 98 11/13/20 23:40 70 26 H 182/77 H 98 11/13/20 22:09 70 20 157/69 H 97 Laboratory Results Laboratory Results - last 24 hr 11/13/20 11/13/20 11/13/20 15:37 15:37 15:37 WBC Cancelled RBC Cancelled Hgb Cancelled Hct Cancelled MCV Cancelled MCH Cancelled MCHC Cancelled RDW Std Deviation Cancelled RDW Coeff of Rolan Cancelled Plt Count Cancelled MPV Cancelled Immature Gran % (Auto) Cancelled Neut % (Auto) Cancelled Lymph % (Auto) Cancelled Nash % (Auto) Cancelled Eos % (Auto) Cancelled Baso % (Auto) Cancelled Neut # (Auto) Cancelled Lymph # (Auto) Cancelled Nash # (Auto) Cancelled Eos # (Auto) Cancelled Baso # (Auto) Cancelled Immature Gran # (Auto) Cancelled Absolute Nucleated RBC Cancelled Nucleated RBC % (auto) Cancelled Neutrophils % (Manual) Cancelled Band Neutrophils % Cancelled Lymphocytes % (Manual) Cancelled Prolymphocyte % Cancelled Reactive Lymphs % (Man) Cancelled Monocytes % (Manual) Cancelled Eosinophils % (Manual) Cancelled Basophils % (Manual) Cancelled Metamyelocytes % (Man) Cancelled Myelocytes % (Man) Cancelled Promyelocytes % (Man) Cancelled Blast Cells % (Manual) Cancelled Plasma Cell % (Manual) Cancelled Other Cells % Cancelled Nucleated RBC % Cancelled Neutrophils # (Manual) Cancelled Band Neutrophils # Cancelled Total Absolute Neuts Cancelled Lymphocytes # (Manual) Cancelled Prolymphocyte # Cancelled Reactive Lymphs # Cancelled Total Abs Lymphocytes Cancelled Monocytes # (Manual) Cancelled Eosinophils # (Manual) Cancelled Basophils # (Manual) Cancelled Metamyelocytes # (Man) Cancelled Myelocytes # (Manual) Cancelled Promyelocytes # (Man) Cancelled Blast Cells # (Man) Cancelled Plasma Cell # (Manual) Cancelled Other Cells # Cancelled Nucleated RBCs # (Man) Cancelled Hypersegmented Neuts Cancelled Hyposegmented Neuts Cancelled Hypogranular Neuts Cancelled Large Granular Lymphs Cancelled # Lrg Granular Lymphs Cancelled Hairy Cells Cancelled Smudge Cells Cancelled Toxic Granulation Cancelled Toxic Vacuolation Cancelled Dohle Bodies Cancelled Sukhjinder Rods Cancelled Platelet Estimate Cancelled Hypogranular Platelets Cancelled Clumped Platelets Cancelled Giant Platelets Cancelled Platelet Satelliting Cancelled RBC Morphology Cancelled Polychromasia Cancelled Hypochromasia Cancelled Poikilocytosis Cancelled Basophilic Stippling Cancelled Anisocytosis Cancelled Microcytosis Cancelled Macrocytosis Cancelled Spherocytes Cancelled Pappenheimer Bodies Cancelled Sickle Cells Cancelled Target Cells Cancelled Tear Drop Cells Cancelled Ovalocytes Cancelled Stomatocytes Cancelled Mas-[place] Bodies Cancelled Echinocytes Cancelled Acanthocytes (Spur) Cancelled Rouleaux Cancelled RBC Agglutinates Cancelled Schistocytes Cancelled RBC Morph Comment Cancelled ESR Cancelled Sezary Cell Cancelled PT Cancelled INR Cancelled APTT Cancelled PTT Ratio Cancelled VBG pH VBG pCO2 VBG pO2 VBG HCO3 VBG O2 Saturation VBG Base Excess Barometric Pressure Sodium Potassium Chloride Carbon Dioxide Anion Gap BUN Creatinine Est Cr Clr Drug Dosing Est GFR ( Amer) Est GFR (Non-Af Amer) BUN/Creatinine Ratio Glucose POC Glucose Calcium Ionized Calcium Phosphorus Magnesium Total Bilirubin AST ALT Alkaline Phosphatase Troponin I C-Reactive Protein Total Protein Albumin Globulin Albumin/Globulin Ratio Procalcitonin TSH Random Cortisol Specimen Hemolysis Urine Color Urine Appearance Urine pH Ur Specific Wagner Urine Protein Urine Glucose (UA) Urine Ketones Urine Blood Urine Nitrite Urine Bilirubin Urine Urobilinogen Ur Leukocyte Esterase Urine WBC (Auto) Urine RBC (Auto) U Hyaline Cast (Auto) U Epithel Cells (Auto) Urine Bacteria (Auto) SARS-CoV-2, RNA, NAAT SARS-CoV-2 Ag (Rapid) 11/13/20 11/13/20 11/13/20 15:37 16:36 16:37 WBC 4.93 RBC 3.81 L Hgb 9.7 L Hct 32.4 L MCV 85.0 MCH 25.5 MCHC 29.9 L RDW Std Deviation 61.5 H RDW Coeff of Rolan 19.8 H Plt Count 164 MPV 10.2 Immature Gran % (Auto) 0.2 Neut % (Auto) 83.7 Lymph % (Auto) 11.2 Nash % (Auto) 4.7 Eos % (Auto) 0.2 Baso % (Auto) 0.0 Neut # (Auto) 4.13 Lymph # (Auto) 0.55 L Nash # (Auto) 0.23 Eos # (Auto) 0.01 Baso # (Auto) 0.00 Immature Gran # (Auto) 0.01 Absolute Nucleated RBC Nucleated RBC % (auto) Neutrophils % (Manual) Band Neutrophils % Lymphocytes % (Manual) Prolymphocyte % Reactive Lymphs % (Man) Monocytes % (Manual) Eosinophils % (Manual) Basophils % (Manual) Metamyelocytes % (Man) Myelocytes % (Man) Promyelocytes % (Man) Blast Cells % (Manual) Plasma Cell % (Manual) Other Cells % Nucleated RBC % Neutrophils # (Manual) Band Neutrophils # Total Absolute Neuts Lymphocytes # (Manual) Prolymphocyte # Reactive Lymphs # Total Abs Lymphocytes Monocytes # (Manual) Eosinophils # (Manual) Basophils # (Manual) Metamyelocytes # (Man) Myelocytes # (Manual) Promyelocytes # (Man) Blast Cells # (Man) Plasma Cell # (Manual) Other Cells # Nucleated RBCs # (Man) Hypersegmented Neuts Hyposegmented Neuts Hypogranular Neuts Large Granular Lymphs # Lrg Granular Lymphs Hairy Cells Smudge Cells Toxic Granulation Toxic Vacuolation Dohle Bodies Sukhjinder Rods Platelet Estimate Hypogranular Platelets Clumped Platelets Giant Platelets Platelet Satelliting RBC Morphology Polychromasia Hypochromasia Poikilocytosis Basophilic Stippling Anisocytosis Microcytosis Macrocytosis Spherocytes Pappenheimer Bodies Sickle Cells Target Cells Tear Drop Cells Ovalocytes Stomatocytes Mas-[place] Bodies Echinocytes Acanthocytes (Spur) Rouleaux RBC Agglutinates Schistocytes RBC Morph Comment ESR Sezary Cell PT INR APTT PTT Ratio VBG pH VBG pCO2 VBG pO2 VBG HCO3 VBG O2 Saturation VBG Base Excess Barometric Pressure Sodium 150 H Potassium 2.7 L Chloride 125 H Carbon Dioxide 18 L Anion Gap 7.0 BUN 24 H Creatinine 1.04 Est Cr Clr Drug Dosing Not Reportable Est GFR ( Amer) 66.7 Est GFR (Non-Af Amer) 57.5 BUN/Creatinine Ratio 23.0 H Glucose 41 L* POC Glucose 56 L* Calcium 5.1 L* Ionized Calcium Phosphorus 1.8 L Magnesium 1.0 L Total Bilirubin 0.3 AST 23 ALT 12 Alkaline Phosphatase 58 Troponin I 0.325 H* C-Reactive Protein 4.38 H Total Protein 4.3 L Albumin 2.0 L Globulin 2.3 L Albumin/Globulin Ratio 0.9 Procalcitonin TSH 1.190 Random Cortisol Specimen Hemolysis Urine Color Urine Appearance Urine pH Ur Specific Wagner Urine Protein Urine Glucose (UA) Urine Ketones Urine Blood Urine Nitrite Urine Bilirubin Urine Urobilinogen Ur Leukocyte Esterase Urine WBC (Auto) Urine RBC (Auto) U Hyaline Cast (Auto) U Epithel Cells (Auto) Urine Bacteria (Auto) SARS-CoV-2, RNA, NAAT SARS-CoV-2 Ag (Rapid) 11/13/20 11/13/20 11/13/20 16:37 17:15 17:17 WBC RBC Hgb Hct MCV MCH MCHC RDW Std Deviation RDW Coeff of Rolan Plt Count MPV Immature Gran % (Auto) Neut % (Auto) Lymph % (Auto) Nash % (Auto) Eos % (Auto) Baso % (Auto) Neut # (Auto) Lymph # (Auto) Nash # (Auto) Eos # (Auto) Baso # (Auto) Immature Gran # (Auto) Absolute Nucleated RBC Nucleated RBC % (auto) Neutrophils % (Manual) Band Neutrophils % Lymphocytes % (Manual) Prolymphocyte % Reactive Lymphs % (Man) Monocytes % (Manual) Eosinophils % (Manual) Basophils % (Manual) Metamyelocytes % (Man) Myelocytes % (Man) Promyelocytes % (Man) Blast Cells % (Manual) Plasma Cell % (Manual) Other Cells % Nucleated RBC % Neutrophils # (Manual) Band Neutrophils # Total Absolute Neuts Lymphocytes # (Manual) Prolymphocyte # Reactive Lymphs # Total Abs Lymphocytes Monocytes # (Manual) Eosinophils # (Manual) Basophils # (Manual) Metamyelocytes # (Man) Myelocytes # (Manual) Promyelocytes # (Man) Blast Cells # (Man) Plasma Cell # (Manual) Other Cells # Nucleated RBCs # (Man) Hypersegmented Neuts Hyposegmented Neuts Hypogranular Neuts Large Granular Lymphs # Lrg Granular Lymphs Hairy Cells Smudge Cells Toxic Granulation Toxic Vacuolation Dohle Bodies Sukhjinder Rods Platelet Estimate Hypogranular Platelets Clumped Platelets Giant Platelets Platelet Satelliting RBC Morphology Polychromasia Hypochromasia Poikilocytosis Basophilic Stippling Anisocytosis Microcytosis Macrocytosis Spherocytes Pappenheimer Bodies Sickle Cells Target Cells Tear Drop Cells Ovalocytes Stomatocytes Mas-[place] Bodies Echinocytes Acanthocytes (Spur) Rouleaux RBC Agglutinates Schistocytes RBC Morph Comment ESR 40 H Sezary Cell PT Cancelled INR Cancelled APTT Cancelled PTT Ratio Cancelled VBG pH VBG pCO2 VBG pO2 VBG HCO3 VBG O2 Saturation VBG Base Excess Barometric Pressure Sodium Potassium Chloride Carbon Dioxide Anion Gap BUN Creatinine Est Cr Clr Drug Dosing Est GFR ( Amer) Est GFR (Non-Af Amer) BUN/Creatinine Ratio Glucose POC Glucose Calcium Ionized Calcium Phosphorus Magnesium Total Bilirubin AST ALT Alkaline Phosphatase Troponin I C-Reactive Protein Total Protein Albumin Globulin Albumin/Globulin Ratio Procalcitonin TSH Random Cortisol Specimen Hemolysis Urine Color Urine Appearance Urine pH Ur Specific Wagner Urine Protein Urine Glucose (UA) Urine Ketones Urine Blood Urine Nitrite Urine Bilirubin Urine Urobilinogen Ur Leukocyte Esterase Urine WBC (Auto) Urine RBC (Auto) U Hyaline Cast (Auto) U Epithel Cells (Auto) Urine Bacteria (Auto) SARS-CoV-2, RNA, NAAT POSITIVE A* SARS-CoV-2 Ag (Rapid) 11/13/20 11/13/20 11/13/20 17:17 17:17 17:42 WBC RBC Hgb Hct MCV MCH MCHC RDW Std Deviation RDW Coeff of Rolan Plt Count MPV Immature Gran % (Auto) Neut % (Auto) Lymph % (Auto) Nash % (Auto) Eos % (Auto) Baso % (Auto) Neut # (Auto) Lymph # (Auto) Nash # (Auto) Eos # (Auto) Baso # (Auto) Immature Gran # (Auto) Absolute Nucleated RBC Nucleated RBC % (auto) Neutrophils % (Manual) Band Neutrophils % Lymphocytes % (Manual) Prolymphocyte % Reactive Lymphs % (Man) Monocytes % (Manual) Eosinophils % (Manual) Basophils % (Manual) Metamyelocytes % (Man) Myelocytes % (Man) Promyelocytes % (Man) Blast Cells % (Manual) Plasma Cell % (Manual) Other Cells % Nucleated RBC % Neutrophils # (Manual) Band Neutrophils # Total Absolute Neuts Lymphocytes # (Manual) Prolymphocyte # Reactive Lymphs # Total Abs Lymphocytes Monocytes # (Manual) Eosinophils # (Manual) Basophils # (Manual) Metamyelocytes # (Man) Myelocytes # (Manual) Promyelocytes # (Man) Blast Cells # (Man) Plasma Cell # (Manual) Other Cells # Nucleated RBCs # (Man) Hypersegmented Neuts Hyposegmented Neuts Hypogranular Neuts Large Granular Lymphs # Lrg Granular Lymphs Hairy Cells Smudge Cells Toxic Granulation Toxic Vacuolation Dohle Bodies Sukhjinder Rods Platelet Estimate Hypogranular Platelets Clumped Platelets Giant Platelets Platelet Satelliting RBC Morphology Polychromasia Hypochromasia Poikilocytosis Basophilic Stippling Anisocytosis Microcytosis Macrocytosis Spherocytes Pappenheimer Bodies Sickle Cells Target Cells Tear Drop Cells Ovalocytes Stomatocytes Mas-[place] Bodies Echinocytes Acanthocytes (Spur) Rouleaux RBC Agglutinates Schistocytes RBC Morph Comment ESR Sezary Cell PT INR APTT PTT Ratio VBG pH 7.35 L VBG pCO2 48 VBG pO2 36 VBG HCO3 26 VBG O2 Saturation 64.8 VBG Base Excess 0.3 Barometric Pressure 733.6 Sodium Potassium Chloride Carbon Dioxide Anion Gap BUN Creatinine Est Cr Clr Drug Dosing Est GFR ( Amer) Est GFR (Non-Af Amer) BUN/Creatinine Ratio Glucose POC Glucose 81 Calcium Ionized Calcium 1.00 L Phosphorus Magnesium Total Bilirubin AST ALT Alkaline Phosphatase Troponin I C-Reactive Protein Total Protein Albumin Globulin Albumin/Globulin Ratio Procalcitonin TSH Random Cortisol Specimen Hemolysis Urine Color Urine Appearance Urine pH Ur Specific Wagner Urine Protein Urine Glucose (UA) Urine Ketones Urine Blood Urine Nitrite Urine Bilirubin Urine Urobilinogen Ur Leukocyte Esterase Urine WBC (Auto) Urine RBC (Auto) U Hyaline Cast (Auto) U Epithel Cells (Auto) Urine Bacteria (Auto) SARS-CoV-2, RNA, NAAT SARS-CoV-2 Ag (Rapid) 11/13/20 11/13/20 11/13/20 20:15 20:15 20:15 WBC RBC Hgb Hct MCV MCH MCHC RDW Std Deviation RDW Coeff of Rolan Plt Count MPV Immature Gran % (Auto) Neut % (Auto) Lymph % (Auto) Nash % (Auto) Eos % (Auto) Baso % (Auto) Neut # (Auto) Lymph # (Auto) Nash # (Auto) Eos # (Auto) Baso # (Auto) Immature Gran # (Auto) Absolute Nucleated RBC Nucleated RBC % (auto) Neutrophils % (Manual) Band Neutrophils % Lymphocytes % (Manual) Prolymphocyte % Reactive Lymphs % (Man) Monocytes % (Manual) Eosinophils % (Manual) Basophils % (Manual) Metamyelocytes % (Man) Myelocytes % (Man) Promyelocytes % (Man) Blast Cells % (Manual) Plasma Cell % (Manual) Other Cells % Nucleated RBC % Neutrophils # (Manual) Band Neutrophils # Total Absolute Neuts Lymphocytes # (Manual) Prolymphocyte # Reactive Lymphs # Total Abs Lymphocytes Monocytes # (Manual) Eosinophils # (Manual) Basophils # (Manual) Metamyelocytes # (Man) Myelocytes # (Manual) Promyelocytes # (Man) Blast Cells # (Man) Plasma Cell # (Manual) Other Cells # Nucleated RBCs # (Man) Hypersegmented Neuts Hyposegmented Neuts Hypogranular Neuts Large Granular Lymphs # Lrg Granular Lymphs Hairy Cells Smudge Cells Toxic Granulation Toxic Vacuolation Dohle Bodies Sukhjinder Rods Platelet Estimate Hypogranular Platelets Clumped Platelets Giant Platelets Platelet Satelliting RBC Morphology Polychromasia Hypochromasia Poikilocytosis Basophilic Stippling Anisocytosis Microcytosis Macrocytosis Spherocytes Pappenheimer Bodies Sickle Cells Target Cells Tear Drop Cells Ovalocytes Stomatocytes Mas-[place] Bodies Echinocytes Acanthocytes (Spur) Rouleaux RBC Agglutinates Schistocytes RBC Morph Comment ESR Sezary Cell PT 11.9 INR 1.1 APTT 31.3 H PTT Ratio 1.1 VBG pH VBG pCO2 VBG pO2 VBG HCO3 VBG O2 Saturation VBG Base Excess Barometric Pressure Sodium 140 D Potassium 4.2 D Chloride 108 H Carbon Dioxide 27 Anion Gap 5.0 BUN 34 H Creatinine 1.96 H D Est Cr Clr Drug Dosing 27.3 Est GFR ( Amer) 31.0 Est GFR (Non-Af Amer) 26.7 BUN/Creatinine Ratio 17.4 Glucose 78 POC Glucose Calcium 7.9 L D Ionized Calcium Phosphorus Magnesium Total Bilirubin AST ALT Alkaline Phosphatase Troponin I C-Reactive Protein Total Protein Albumin Globulin Albumin/Globulin Ratio Procalcitonin TSH Random Cortisol 13.59 Specimen Hemolysis Urine Color Urine Appearance Urine pH Ur Specific Wagner Urine Protein Urine Glucose (UA) Urine Ketones Urine Blood Urine Nitrite Urine Bilirubin Urine Urobilinogen Ur Leukocyte Esterase Urine WBC (Auto) Urine RBC (Auto) U Hyaline Cast (Auto) U Epithel Cells (Auto) Urine Bacteria (Auto) SARS-CoV-2, RNA, NAAT SARS-CoV-2 Ag (Rapid) 11/13/20 11/13/20 11/13/20 21:10 23:29 Unknown WBC RBC Hgb Hct MCV MCH MCHC RDW Std Deviation RDW Coeff of Rolan Plt Count MPV Immature Gran % (Auto) Neut % (Auto) Lymph % (Auto) Nash % (Auto) Eos % (Auto) Baso % (Auto) Neut # (Auto) Lymph # (Auto) Nash # (Auto) Eos # (Auto) Baso # (Auto) Immature Gran # (Auto) Absolute Nucleated RBC Nucleated RBC % (auto) Neutrophils % (Manual) Band Neutrophils % Lymphocytes % (Manual) Prolymphocyte % Reactive Lymphs % (Man) Monocytes % (Manual) Eosinophils % (Manual) Basophils % (Manual) Metamyelocytes % (Man) Myelocytes % (Man) Promyelocytes % (Man) Blast Cells % (Manual) Plasma Cell % (Manual) Other Cells % Nucleated RBC % Neutrophils # (Manual) Band Neutrophils # Total Absolute Neuts Lymphocytes # (Manual) Prolymphocyte # Reactive Lymphs # Total Abs Lymphocytes Monocytes # (Manual) Eosinophils # (Manual) Basophils # (Manual) Metamyelocytes # (Man) Myelocytes # (Manual) Promyelocytes # (Man) Blast Cells # (Man) Plasma Cell # (Manual) Other Cells # Nucleated RBCs # (Man) Hypersegmented Neuts Hyposegmented Neuts Hypogranular Neuts Large Granular Lymphs # Lrg Granular Lymphs Hairy Cells Smudge Cells Toxic Granulation Toxic Vacuolation Dohle Bodies Sukhjinder Rods Platelet Estimate Hypogranular Platelets Clumped Platelets Giant Platelets Platelet Satelliting RBC Morphology Polychromasia Hypochromasia Poikilocytosis Basophilic Stippling Anisocytosis Microcytosis Macrocytosis Spherocytes Pappenheimer Bodies Sickle Cells Target Cells Tear Drop Cells Ovalocytes Stomatocytes Mas-[place] Bodies Echinocytes Acanthocytes (Spur) Rouleaux RBC Agglutinates Schistocytes RBC Morph Comment ESR Sezary Cell PT INR APTT PTT Ratio VBG pH VBG pCO2 VBG pO2 VBG HCO3 VBG O2 Saturation VBG Base Excess Barometric Pressure Sodium Potassium Chloride Carbon Dioxide Anion Gap BUN Creatinine Est Cr Clr Drug Dosing Est GFR ( Amer) Est GFR (Non-Af Amer) BUN/Creatinine Ratio Glucose POC Glucose 71 Calcium Ionized Calcium Phosphorus Magnesium Total Bilirubin AST ALT Alkaline Phosphatase Troponin I C-Reactive Protein Total Protein Albumin Globulin Albumin/Globulin Ratio Procalcitonin TSH Random Cortisol Specimen Hemolysis Urine Color Yellow Urine Appearance Cloudy A Urine pH 5.0 Ur Specific Wagner 1.020 Urine Protein Trace H Urine Glucose (UA) Negative Urine Ketones Negative Urine Blood Negative Urine Nitrite Negative Urine Bilirubin Negative Urine Urobilinogen Negative Ur Leukocyte Esterase 2+ H Urine WBC (Auto) >30 H Urine RBC (Auto) 0-4 U Hyaline Cast (Auto) 10-30 H U Epithel Cells (Auto) >30 H Urine Bacteria (Auto) 1+ H SARS-CoV-2, RNA, NAAT SARS-CoV-2 Ag (Rapid) Positive A* 11/14/20 11/14/20 11/14/20 03:20 03:20 03:20 WBC 4.25 L RBC 3.90 L Hgb 9.8 L Hct 33.6 L MCV 86.2 MCH 25.1 MCHC 29.2 L RDW Std Deviation 63.2 H RDW Coeff of Rolan 20.0 H Plt Count 167 MPV 9.8 Immature Gran % (Auto) Neut % (Auto) Lymph % (Auto) Nash % (Auto) Eos % (Auto) Baso % (Auto) Neut # (Auto) Lymph # (Auto) Nash # (Auto) Eos # (Auto) Baso # (Auto) Immature Gran # (Auto) Absolute Nucleated RBC Nucleated RBC % (auto) Neutrophils % (Manual) Band Neutrophils % Lymphocytes % (Manual) Prolymphocyte % Reactive Lymphs % (Man) Monocytes % (Manual) Eosinophils % (Manual) Basophils % (Manual) Metamyelocytes % (Man) Myelocytes % (Man) Promyelocytes % (Man) Blast Cells % (Manual) Plasma Cell % (Manual) Other Cells % Nucleated RBC % Neutrophils # (Manual) Band Neutrophils # Total Absolute Neuts Lymphocytes # (Manual) Prolymphocyte # Reactive Lymphs # Total Abs Lymphocytes Monocytes # (Manual) Eosinophils # (Manual) Basophils # (Manual) Metamyelocytes # (Man) Myelocytes # (Manual) Promyelocytes # (Man) Blast Cells # (Man) Plasma Cell # (Manual) Other Cells # Nucleated RBCs # (Man) Hypersegmented Neuts Hyposegmented Neuts Hypogranular Neuts Large Granular Lymphs # Lrg Granular Lymphs Hairy Cells Smudge Cells Toxic Granulation Toxic Vacuolation Dohle Bodies Sukhjinder Rods Platelet Estimate Hypogranular Platelets Clumped Platelets Giant Platelets Platelet Satelliting RBC Morphology Polychromasia Hypochromasia Poikilocytosis Basophilic Stippling Anisocytosis Microcytosis Macrocytosis Spherocytes Pappenheimer Bodies Sickle Cells Target Cells Tear Drop Cells Ovalocytes Stomatocytes Mas-[place] Bodies Echinocytes Acanthocytes (Spur) Rouleaux RBC Agglutinates Schistocytes RBC Morph Comment ESR Sezary Cell PT INR APTT PTT Ratio VBG pH VBG pCO2 VBG pO2 VBG HCO3 VBG O2 Saturation VBG Base Excess Barometric Pressure Sodium 140 Potassium 6.2 H* D Chloride 110 H Carbon Dioxide 26 Anion Gap 5.0 BUN 34 H Creatinine 1.76 H Est Cr Clr Drug Dosing 30.4 Est GFR ( Amer) 35.3 Est GFR (Non-Af Amer) 30.5 BUN/Creatinine Ratio 19.4 Glucose 80 POC Glucose Calcium 8.1 L Ionized Calcium Phosphorus 8.2 H D Magnesium 2.5 H Total Bilirubin AST ALT Alkaline Phosphatase Troponin I 0.287 H* C-Reactive Protein 8.87 H Total Protein Albumin Globulin Albumin/Globulin Ratio Procalcitonin TSH Random Cortisol Specimen Hemolysis Urine Color Urine Appearance Urine pH Ur Specific Wagner Urine Protein Urine Glucose (UA) Urine Ketones Urine Blood Urine Nitrite Urine Bilirubin Urine Urobilinogen Ur Leukocyte Esterase Urine WBC (Auto) Urine RBC (Auto) U Hyaline Cast (Auto) U Epithel Cells (Auto) Urine Bacteria (Auto) SARS-CoV-2, RNA, NAAT SARS-CoV-2 Ag (Rapid) 11/14/20 11/14/20 11/14/20 03:20 06:14 11:37 WBC RBC Hgb Hct MCV MCH MCHC RDW Std Deviation RDW Coeff of Rolan Plt Count MPV Immature Gran % (Auto) Neut % (Auto) Lymph % (Auto) Nash % (Auto) Eos % (Auto) Baso % (Auto) Neut # (Auto) Lymph # (Auto) Nash # (Auto) Eos # (Auto) Baso # (Auto) Immature Gran # (Auto) Absolute Nucleated RBC Nucleated RBC % (auto) Neutrophils % (Manual) Band Neutrophils % Lymphocytes % (Manual) Prolymphocyte % Reactive Lymphs % (Man) Monocytes % (Manual) Eosinophils % (Manual) Basophils % (Manual) Metamyelocytes % (Man) Myelocytes % (Man) Promyelocytes % (Man) Blast Cells % (Manual) Plasma Cell % (Manual) Other Cells % Nucleated RBC % Neutrophils # (Manual) Band Neutrophils # Total Absolute Neuts Lymphocytes # (Manual) Prolymphocyte # Reactive Lymphs # Total Abs Lymphocytes Monocytes # (Manual) Eosinophils # (Manual) Basophils # (Manual) Metamyelocytes # (Man) Myelocytes # (Manual) Promyelocytes # (Man) Blast Cells # (Man) Plasma Cell # (Manual) Other Cells # Nucleated RBCs # (Man) Hypersegmented Neuts Hyposegmented Neuts Hypogranular Neuts Large Granular Lymphs # Lrg Granular Lymphs Hairy Cells Smudge Cells Toxic Granulation Toxic Vacuolation Dohle Bodies Sukhjinder Rods Platelet Estimate Hypogranular Platelets Clumped Platelets Giant Platelets Platelet Satelliting RBC Morphology Polychromasia Hypochromasia Poikilocytosis Basophilic Stippling Anisocytosis Microcytosis Macrocytosis Spherocytes Pappenheimer Bodies Sickle Cells Target Cells Tear Drop Cells Ovalocytes Stomatocytes [place] Bodies Echinocytes Acanthocytes (Spur) Rouleaux RBC Agglutinates Schistocytes RBC Morph Comment ESR Sezary Cell PT INR APTT PTT Ratio VBG pH VBG pCO2 VBG pO2 VBG HCO3 VBG O2 Saturation VBG Base Excess Barometric Pressure Sodium Potassium Chloride Carbon Dioxide Anion Gap BUN Creatinine Est Cr Clr Drug Dosing Est GFR ( Amer) Est GFR (Non-Af Amer) BUN/Creatinine Ratio Glucose POC Glucose 147 H 105 H Calcium Ionized Calcium Phosphorus Magnesium Total Bilirubin AST ALT Alkaline Phosphatase Troponin I C-Reactive Protein Total Protein Albumin Globulin Albumin/Globulin Ratio Procalcitonin 0.35 TSH Random Cortisol Specimen Hemolysis Urine Color Urine Appearance Urine pH Ur Specific Wagner Urine Protein Urine Glucose (UA) Urine Ketones Urine Blood Urine Nitrite Urine Bilirubin Urine Urobilinogen Ur Leukocyte Esterase Urine WBC (Auto) Urine RBC (Auto) U Hyaline Cast (Auto) U Epithel Cells (Auto) Urine Bacteria (Auto) SARS-CoV-2, RNA, NAAT SARS-CoV-2 Ag (Rapid) 11/14/20 12:09 WBC RBC Hgb Hct MCV MCH MCHC RDW Std Deviation RDW Coeff of Rolan Plt Count MPV Immature Gran % (Auto) Neut % (Auto) Lymph % (Auto) Nash % (Auto) Eos % (Auto) Baso % (Auto) Neut # (Auto) Lymph # (Auto) Nash # (Auto) Eos # (Auto) Baso # (Auto) Immature Gran # (Auto) Absolute Nucleated RBC Nucleated RBC % (auto) Neutrophils % (Manual) Band Neutrophils % Lymphocytes % (Manual) Prolymphocyte % Reactive Lymphs % (Man) Monocytes % (Manual) Eosinophils % (Manual) Basophils % (Manual) Metamyelocytes % (Man) Myelocytes % (Man) Promyelocytes % (Man) Blast Cells % (Manual) Plasma Cell % (Manual) Other Cells % Nucleated RBC % Neutrophils # (Manual) Band Neutrophils # Total Absolute Neuts Lymphocytes # (Manual) Prolymphocyte # Reactive Lymphs # Total Abs Lymphocytes Monocytes # (Manual) Eosinophils # (Manual) Basophils # (Manual) Metamyelocytes # (Man) Myelocytes # (Manual) Promyelocytes # (Man) Blast Cells # (Man) Plasma Cell # (Manual) Other Cells # Nucleated RBCs # (Man) Hypersegmented Neuts Hyposegmented Neuts Hypogranular Neuts Large Granular Lymphs # Lrg Granular Lymphs Hairy Cells Smudge Cells Toxic Granulation Toxic Vacuolation Dohle Bodies Sukhjinder Rods Platelet Estimate Hypogranular Platelets Clumped Platelets Giant Platelets Platelet Satelliting RBC Morphology Polychromasia Hypochromasia Poikilocytosis Basophilic Stippling Anisocytosis Microcytosis Macrocytosis Spherocytes Pappenheimer Bodies Sickle Cells Target Cells Tear Drop Cells Ovalocytes Stomatocytes Mas-[place] Bodies Echinocytes Acanthocytes (Spur) Rouleaux RBC Agglutinates Schistocytes RBC Morph Comment ESR Sezary Cell PT INR APTT PTT Ratio VBG pH VBG pCO2 VBG pO2 VBG HCO3 VBG O2 Saturation VBG Base Excess Barometric Pressure Sodium 142 Potassium 4.9 D Chloride 110 H Carbon Dioxide 24 Anion Gap 8.0 BUN 31 H Creatinine 1.56 H Est Cr Clr Drug Dosing 34.3 Est GFR ( Amer) 40.8 Est GFR (Non-Af Amer) 35.2 BUN/Creatinine Ratio 19.7 Glucose 117 H POC Glucose Calcium 8.8 Ionized Calcium Phosphorus Magnesium Total Bilirubin AST ALT Alkaline Phosphatase Troponin I C-Reactive Protein Total Protein Albumin Globulin Albumin/Globulin Ratio Procalcitonin TSH Random Cortisol Specimen Hemolysis Urine Color Urine Appearance Urine pH Ur Specific Wagner Urine Protein Urine Glucose (UA) Urine Ketones Urine Blood Urine Nitrite Urine Bilirubin Urine Urobilinogen Ur Leukocyte Esterase Urine WBC (Auto) Urine RBC (Auto) U Hyaline Cast (Auto) U Epithel Cells (Auto) Urine Bacteria (Auto) SARS-CoV-2, RNA, NAAT SARS-CoV-2 Ag (Rapid) (1) Headache Headache chronicity pattern: unspecified pattern Headache type: unspecified Intractability: not intractable Qualified Code(s): R51.9 - Headache, unspecified (2) CAD (coronary artery disease), [place] coronary artery [place] vs. transplanted heart: [place] heart Associated angina: with unstable angina Qualified Code(s): I25.110 - Atherosclerotic heart disease of [place] coronary artery with unstable angina pectoris
[2020-11-14 12:50] LABS: BUN Creatinine Ratio 19.7 (10-20); Calcium 8.8 mg/dl (8.5-10.1); Creatinine Clr Calc Pharmacy 34.3 ml/min; Est GFR (African American) 40.8; Est GFR (Non-African American) 35.2; Potassium 4.9 mmol/L (3.5-5.1)
--- NOTE | 2020-11-14 12:52 | Electrocardiogram Report ---
Test Reason : Blood Pressure : / mmHG Vent. Rate : 065 BPM Atrial Rate : 065 BPM P-R Int : 198 ms QRS Dur : 088 ms QT Int : 406 ms P-R-T Axes : -12 -04 113 degrees QTc Int : 422 ms Poor data quality, interpretation may be adversely affected Atrial-paced rhythm Moderate voltage criteria for LVH, may be normal variant T wave abnormality, consider lateral ischemia Abnormal ECG When compared with ECG of 03-NOV-2020 06:53, Electronic atrial pacemaker has replaced Ectopic atrial rhythm QT has shortened Confirmed by Juan Pablo Busby ([id number]) on 11/14/2020 12:52:05 PM Referred By: REFERRED SELF Confirmed By:Juan Pablo Busby
--- NOTE | 2020-11-14 13:08 | Electrocardiogram Report ---
Test Reason : Blood Pressure : / mmHG Vent. Rate : 065 BPM Atrial Rate : 065 BPM P-R Int : 182 ms QRS Dur : 092 ms QT Int : 410 ms P-R-T Axes : 037 -09 117 degrees QTc Int : 426 ms Normal sinus rhythm Left ventricular hypertrophy with repolarization abnormality T wave abnormality, consider lateral ischemia Abnormal ECG When compared with ECG of 13-NOV-2020 15:17, (unconfirmed) Sinus rhythm has replaced Electronic atrial pacemaker Confirmed by Juan Pablo Busby ([id number]) on 11/14/2020 1:07:57 PM Referred By: REFERRED SELF Confirmed By:Juan Pablo Busby
[2020-11-14] MEDS: TORSEMIDE 10 MG TAB PO SCH (15:05)
[2020-11-14] MEDS ORDERED: VANCOMYCIN CONSULT ACTIVE PRN (15:40)
[2020-11-14] MEDS ORDERED: VANCOMYCIN HCL 1,750 MG in SODIUM CHLORIDE 0.9% 500 ML IV STA (15:48)
--- NOTE | 2020-11-14 16:02 | Pharmacy Report ---
Pharmacy Abx Initial Consult - Date of Service November 14, 2020 - Pharmacy Dosing Scope Date of Consult: 11/14/2020 Consultation requested by: Dr. Be Pharmacy is consulted to initiate Vancomycin IV dosing therapy, order appropriate labs and adjust drug dose/frequency. - Subjective The patient is a 60 year old F admitted on 11/13/20 19:00. - Objective Height: 4 ft 11 in Weight: 80.3 kg Vital Signs (Past 12hrs): Vital Signs Temp Pulse Pulse Pulse Resp BP BP 11/14/20 15:47 36.5 C 68 24 115/71 11/14/20 15:34 63 11/14/20 14:15 65 11/14/20 13:06 68 20 112/58 L 11/14/20 11:41 36.8 C 66 24 91/58 L 11/14/20 07:46 65 18 11/14/20 07:41 37 C 68 16 115/89 11/14/20 04:19 70 23 122/70 Pulse Ox 11/14/20 15:47 92 11/14/20 15:34 11/14/20 14:15 11/14/20 13:06 93 11/14/20 11:41 94 11/14/20 07:46 95 11/14/20 07:41 94 11/14/20 04:19 100 Lab Results (24hrs): Laboratory Tests (24 Hours) 11/14/20 11/14/20 11/14/20 12:09 03:20 03:20 WBC Neut # (Auto) ESR Creatinine 1.56 H 1.76 H Est Cr Clr Drug Dosing 34.3 30.4 C-Reactive Protein Procalcitonin 0.35 11/14/20 11/14/20 11/13/20 03:20 03:20 20:15 WBC 4.25 L Neut # (Auto) ESR Creatinine 1.96 H D Est Cr Clr Drug Dosing 27.3 C-Reactive Protein 8.87 H Procalcitonin 11/13/20 11/13/20 11/13/20 16:37 16:37 15:37 WBC 4.93 Neut # (Auto) 4.13 ESR 40 H Creatinine 1.04 Est Cr Clr Drug Dosing Not Reportable C-Reactive Protein 4.38 H Procalcitonin 11/13/20 11/13/20 15:37 15:37 WBC Cancelled Neut # (Auto) Cancelled ESR Cancelled Creatinine Est Cr Clr Drug Dosing C-Reactive Protein Procalcitonin Micro Results: 11/13/20 20:15 Aerobic Blood Culture - Pending Blood 11/13/20 20:17 Aerobic Blood Culture - Pending Blood Anaerobic Blood Culture - Pending 11/13/20 23:29 Urine Culture - Pending Urine,Clean Catch - Risk Factors for Resistance * Hospitalization for 48 hours or more within the past 90 days * Antimicrobial use within the last 90 days: Azithromycin - Assessment & Plan Assessment 60 year old F admitted secondary to worsening symptoms of Covid-19 pneumonia. * On ceftriaxone and azithromycin for superimposed bacterial pneumonia. * Afebrile. No leukocytosis. Renal fxn improving. * 1/4 blood cultures from admission is growing GPCs which prompted Vancomycin consult Plan Vancomycin for treatment of possible bacteremia Vancomycin IV * Loading dose: 1750 mg (22 mg/kg) * Maintenance dose: 1250 mg IV (15 mg/kg) every 24 hours * Goal trough level: 15 to 20 mcg/mL * Trough/Random level ordered for Sunday morning to reflect steady state levels. Pharmacy will continue to follow and will adjust dose/frequency as necessary. Thank you.
[2020-11-14] MEDS ORDERED: SODIUM CHLORIDE 0.9% 10ML FLUSH IV SCH (20:00)
[2020-11-14] MEDS: REMDESIVIR 100 MG in SODIUM CHLORIDE 0.9% 230 ML IV SCH (20:25)
[2020-11-14] MEDS: SODIUM CHLORIDE 0.9% 10ML FLUSH IV SCH (20:32)
[2020-11-15] MEDS: cefTRIAXone SODIUM 2,000 MG in DEXTROSE 5% 50 ML IV SCH (03:56)
[2020-11-15] MEDS: BUDESONIDE 0.5 MG/2 ML VIAL (PULMICORT) INH SCH ×2 (07:19→20:29)
[2020-11-15] MEDS ORDERED: GLUCAGON FOR INJ 1 MG VIAL SQ PRN (07:40)
[2020-11-15] MEDS ORDERED: CARBOHYDRATES FOR HYPOGLYCEMIA PO PRN (07:40)
[2020-11-15] MEDS ORDERED: GLUCOSE 40% GEL 15 GM TUBE PO PRN (07:40)
[2020-11-15] MEDS ORDERED: DEXTROSE 50% 50 ML SYRINGE IV PRN (07:40)
[2020-11-15] MEDS ORDERED: GLUCOSE 10 TABS/TUBE PO PRN (07:40)
[2020-11-15] MEDS: PANTOprazole 40 MG TAB PO SCH ×2 (07:53→20:20)
[2020-11-15] MEDS: VERAPAMIL HCL 40 MG TAB PO SCH ×4 (07:53→20:17)
[2020-11-15] MEDS: GABAPENTIN 300 MG CAP PO SCH ×3 (07:54→20:20)
[2020-11-15] MEDS: dexAMETHasone 4 MG TAB PO SCH (07:54)
[2020-11-15] MEDS: ATORVASTATIN 40 MG TAB PO SCH (07:54)
[2020-11-15] MEDS: METOPROLOL SUCC 50MG EXT REL TAB PO SCH ×2 (07:55→20:18)
[2020-11-15] MEDS: CLOPIDOGREL BISULFATE 75 MG TAB PO SCH (07:55)
[2020-11-15] MEDS: ASPIRIN 81 MG ECTAB PO SCH (07:56)
[2020-11-15] MEDS: ADVANCED PROBIOTIC 1250 MG CAPSULE PO SCH ×3 (07:56→20:20)
[2020-11-15] MEDS: FLUTICASONE/VILANTEROL 200/25MCG 14 PUFFS/INHALER INH SCH (07:57)
[2020-11-15] MEDS: DULoxetine HCL 60 MG CAP PO SCH (07:57)
[2020-11-15] MEDS: ENOXAPARIN INJ 40 MG/0.4 ML SYR SQ SCH (07:57)
[2020-11-15] MEDS: TORSEMIDE 10 MG TAB PO SCH (07:58)
[2020-11-15] MEDS: ISOSORBIDE MONO EXTENDED REL 30 MG TABCR PO SCH (07:58)
[2020-11-15] MEDS: SPIRONOLACTONE 25 MG TAB PO SCH (08:00)
[2020-11-15 08:57] LABS: Hematocrit (blood only) 32.8 % (37-47); Hemoglobin 9.4 g/dL (12.0-16.0); Mean Corpuscular Hemoglobin 24.9 pg (25-34); Mean Corpuscular Hgb Conc 28.7 g/dL (32-36); Mean Corpuscular Volume 86.8 fL (80-100); Mean Platelet Volume 9.8 fL (7.4-10.4); Platelet Count 181 K/uL (130-400); RDW Coefficient of Variation 19.8 % (11.5-14.5); RDW Standard Deviation 62.1 fL (36.4-46.3); Red Blood Count 3.78 M/uL (4.2-5.4); White Blood Count 5.16 K/uL (4.8-10.8)
[2020-11-15 09:23] LABS: BUN Creatinine Ratio 22.9 (10-20); Calcium 8.6 mg/dl (8.5-10.1); Creatinine Clr Calc Pharmacy 33.2 ml/min; Est GFR (African American) 39.3; Est GFR (Non-African American) 33.9; Potassium 4.6 mmol/L (3.5-5.1)
[2020-11-15] MEDS: INSULIN ASPART 100 UNITS/ML 3 ML PEN SC SCH ×4 (09:31→20:18)
[2020-11-15 09:52] LABS: Estimated Average Glucose 146 mg/dl; Hemoglobin A1C 6.7 % (4.5-5.6)
[2020-11-15] MEDS: AZITHROMYCIN 250 MG TAB PO SCH (09:52)
--- NOTE | 2020-11-15 15:16 | Hospitalist Progress Note ---
Date of Service November 15, 2020 Assessment & Plan (1) Headache: (2) COVID-19: Headache, malaise, reported fever, worsening shortness of breath X-ray showing minimal left midlung opacity Covid 19+ Symptoms likely secondary to Covid Symptoms improving Did not meet criteria for sepsis on admission. However, blood culture growing GPC in clusters. Repeat blood culture Was started on vancomycin CT head negative Continue dexamethasone and remdesivir Did not want convalescent plasma Continue ceftriaxone and azithromycin Currently at 2 L baseline oxygen requirement. Will monitor (3) Hypernatremia: (4) Hypophosphatemia: (5) Hypomagnesemia: (6) Hypokalemia: (7) Hypocalcemia: (8) Electrolyte abnormality: Multiple electrolyte abnormalities with critically low levels of phosphate(1.8), magnesium(1), potassium (2.7), calcium (7.9 with ionized Ca of 1) These are likely due to poor oral intake plus diuretics Patient also has hypernatremia 150 Patient got some IV fluids in ER. Electrolytes were repleted K now 4.6 Monitor electrolytes with home diuretics (9) Hypoglycemia: Due to poor oral intake. Hypoglycemia resolved Continue to monitor glucose and manage per protocol. Pharm on board Hold home antidiabetic regimen ISS since oral intake is improving (10) Elevated troponin: No chest pain. No ischemic changes. Troponin is chronically elevated Telemetry monitoring (11) CAD (coronary artery disease), [place] coronary artery: (12) Cardiac defibrillator in place: (13) CHF (congestive heart failure): Patient does not appear to be in fluid overload at this time. Continue Imdur and metoprolol succinate Continue aspirin, Plavix, statin Continue home diuretics and monitor electrolytes (14) HLD (hyperlipidemia): Continue atorvastatin (15) Hypertension: Blood pressure currently normal. Continue to hold verapamil for now (16) Anxiety: Continue home medication (17) DVT prophylaxis: Lovenox subcu Admission and Anticipated Discharge Date Admission Date: November 13, 2020 Subjective Patient seen and examined. Still continues to report weakness, cough and shortness of breath Reports presenting headache has resolved. But currently has her usual migraine headaches No chest pain Physical Exam Constitutional: + well hydrated and + obese; no acute distress Eyes: PERRL, conjunctivae normal, anicteric sclerae ENMT: external ear and nose normal, oropharynx normal Respiratory: no respiratory distress Diminished breath sounds lung bases Cardiovascular: Rate/Rhythm: regular rate and regular rhythm S1 S2 Gastrointestinal (Abdomen): normal bowel sounds, soft, nontender, no hepatosplenomegaly Musculoskeletal: no cyanosis or clubbing, extremities motor strength 5/5 Neurologic: PERRL, EOMI, accommodation nl, no face palsy, no dysarthria Psychiatric: A+Ox3, euthymic affect Results & Data Results & Data ([facility]) Vital Signs (Past 12 Hours) Vital Signs Temp Pulse Resp BP BP Pulse Ox 11/15/20 12:04 36.7 C 54 L 21 112/75 97 11/15/20 07:45 36.8 C 68 20 113/75 94 11/15/20 07:19 70 18 99 11/15/20 03:52 36 C L 69 20 125/68 100 Laboratory Results Laboratory Results - last 24 hr 11/13/20 11/14/20 11/15/20 20:15 20:32 07:39 WBC RBC Hgb Hct MCV MCH MCHC RDW Std Deviation RDW Coeff of Rolan Plt Count MPV Sodium 145 Potassium 4.6 Chloride 111 H Carbon Dioxide 27 Anion Gap 7.0 BUN 37 H Creatinine 1.61 H Est Cr Clr Drug Dosing 33.2 Est GFR ( Amer) 39.3 Est GFR (Non-Af Amer) 33.9 BUN/Creatinine Ratio 22.9 H Glucose 99 POC Glucose 249 H Estimat Average Glucose Hemoglobin A1c Calcium 8.6 AST 31 ALT 22 Bld Cult Staph aureus PCR Negative Blood Culture MRSA PCR Negative 11/15/20 11/15/20 11/15/20 07:39 07:44 07:48 WBC 5.16 RBC 3.78 L Hgb 9.4 L Hct 32.8 L MCV 86.8 MCH 24.9 L MCHC 28.7 L RDW Std Deviation 62.1 H RDW Coeff of Rolan 19.8 H Plt Count 181 MPV 9.8 Sodium Potassium Chloride Carbon Dioxide Anion Gap BUN Creatinine Est Cr Clr Drug Dosing Est GFR ( Amer) Est GFR (Non-Af Amer) BUN/Creatinine Ratio Glucose POC Glucose 69 L* 91 Estimat Average Glucose Hemoglobin A1c Calcium AST ALT Bld Cult Staph aureus PCR Blood Culture MRSA PCR 11/15/20 11/15/20 11/15/20 08:25 12:03 16:40 WBC RBC Hgb Hct MCV MCH MCHC RDW Std Deviation RDW Coeff of Rolan Plt Count MPV Sodium Potassium Chloride Carbon Dioxide Anion Gap BUN Creatinine Est Cr Clr Drug Dosing Est GFR ( Amer) Est GFR (Non-Af Amer) BUN/Creatinine Ratio Glucose POC Glucose 165 H 190 H Estimat Average Glucose 146 Hemoglobin A1c 6.7 H Calcium AST ALT Bld Cult Staph aureus PCR Blood Culture MRSA PCR (1) Headache Headache chronicity pattern: unspecified pattern Headache type: unspecified Intractability: not intractable Qualified Code(s): R51.9 - Headache, unspec ified (2) CAD (coronary artery disease), [place] coronary artery [place] vs. transplanted heart: [place] heart Associated angina: with unstable angina Qualified Code(s): I25.110 - Atherosclerotic heart disease of [place] coronary artery with unstable angina pectoris
[2020-11-15] MEDS: VANCOMYCIN HCL 1,250 MG in SODIUM CHLORIDE 0.9% 250 ML IV SCH (16:47)
[2020-11-15] MEDS: rOPINIRole HCL 0.25 MG TABLET PO SCH (20:19)
[2020-11-15] MEDS: MIRTAZAPINE SOLTAB 15 MG PO SCH (20:21)
[2020-11-15] MEDS: FOLIC ACID 1 MG TAB PO SCH (20:21)
[2020-11-15] MEDS: SODIUM CHLORIDE 0.9% 10ML FLUSH IV SCH (20:22)
[2020-11-15] MEDS: REMDESIVIR 100 MG in SODIUM CHLORIDE 0.9% 230 ML IV SCH (20:25)
[2020-11-16] MEDS: cefTRIAXone SODIUM 2,000 MG in DEXTROSE 5% 50 ML IV SCH (03:57)
[2020-11-16] MEDS: BUDESONIDE 0.5 MG/2 ML VIAL (PULMICORT) INH SCH ×2 (07:41→19:43)
[2020-11-16 08:05] LABS: Hematocrit (blood only) 34.4 % (37-47); Hemoglobin 10.1 g/dL (12.0-16.0); Mean Corpuscular Hemoglobin 25.4 pg (25-34); Mean Corpuscular Hgb Conc 29.4 g/dL (32-36); Mean Corpuscular Volume 86.4 fL (80-100); Mean Platelet Volume 9.6 fL (7.4-10.4); Platelet Count 195 K/uL (130-400); RDW Coefficient of Variation 19.6 % (11.5-14.5); RDW Standard Deviation 62.5 fL (36.4-46.3); Red Blood Count 3.98 M/uL (4.2-5.4); White Blood Count 5.06 K/uL (4.8-10.8)
[2020-11-16] MEDS: INSULIN ASPART 100 UNITS/ML 3 ML PEN SC SCH ×4 (08:30→21:06)
[2020-11-16 08:47] LABS: Albumin Globulin Ratio 0.8 (0.9-2); Albumin Level 3.3 gm/dl (3.4-5.0); BUN Creatinine Ratio 26.1 (10-20); Bilirubin,Total 0.4 mg/dl (0.2-1); C Reactive Protein 4.38 mg/dl (0-0.29); Creatinine Clr Calc Pharmacy 33.2 ml/min; Est GFR (African American) 39.3; Est GFR (Non-African American) 33.9; Magnesium 2.1 mg/dl (1.8-2.4); Potassium 4.6 mmol/L (3.5-5.1); Total Protein 7.3 gm/dl (6.4-8.2)
[2020-11-16] MEDS: AZITHROMYCIN 250 MG TAB PO SCH (08:49)
[2020-11-16] MEDS: TORSEMIDE 10 MG TAB PO SCH (08:49)
[2020-11-16] MEDS: GABAPENTIN 300 MG CAP PO SCH ×3 (08:49→20:49)
[2020-11-16] MEDS: PANTOprazole 40 MG TAB PO SCH ×2 (08:49→20:48)
[2020-11-16] MEDS: ISOSORBIDE MONO EXTENDED REL 30 MG TABCR PO SCH (08:50)
[2020-11-16] MEDS: CLOPIDOGREL BISULFATE 75 MG TAB PO SCH (08:50)
[2020-11-16] MEDS: DULoxetine HCL 60 MG CAP PO SCH (08:50)
[2020-11-16] MEDS: ATORVASTATIN 40 MG TAB PO SCH (08:50)
[2020-11-16] MEDS: dexAMETHasone 4 MG TAB PO SCH (08:51)
[2020-11-16] MEDS: VERAPAMIL HCL 40 MG TAB PO SCH ×5 (08:51→21:31)
[2020-11-16] MEDS: ADVANCED PROBIOTIC 1250 MG CAPSULE PO SCH ×3 (08:51→20:49)
[2020-11-16] MEDS: ASPIRIN 81 MG ECTAB PO SCH ×2 (08:51→20:48)
[2020-11-16] MEDS: SPIRONOLACTONE 25 MG TAB PO SCH (08:52)
[2020-11-16] MEDS: METOPROLOL SUCC 50MG EXT REL TAB PO SCH ×2 (08:52→20:53)
[2020-11-16] MEDS: ENOXAPARIN INJ 40 MG/0.4 ML SYR SQ SCH (08:52)
[2020-11-16] MEDS: FLUTICASONE/VILANTEROL 200/25MCG 14 PUFFS/INHALER INH SCH (08:53)
--- NOTE | 2020-11-16 15:19 | Hospitalist Progress Note ---
Date of Service November 16, 2020 Assessment & Plan (1) Headache: (2) COVID-19: Headache, malaise, reported fever, worsening shortness of breath X-ray showing minimal left midlung opacity Covid 19+ Symptoms likely secondary to Covid Symptoms improving Did not meet criteria for sepsis on admission. However, blood culture growing CONS. Likely contaminant If repeat blood culture negative, discontinue vancomycin CT head negative Continue dexamethasone and remdesivir Did not want convalescent plasma Procal negative. Will stop ceftriaxone and azithromycin CRP trending down Currently at 2 L baseline oxygen requirement. Will need ambulatory pulse ox on discharge (3) Hypernatremia: (4) Hypophosphatemia: (5) Hypomagnesemia: (6) Hypokalemia: (7) Hypocalcemia: (8) Electrolyte abnormality: Multiple electrolyte abnormalities with critically low levels of phosphate(1.8), magnesium(1), potassium (2.7), calcium (7.9 with ionized Ca of 1) These are likely due to poor oral intake plus diuretics Na was 150 on admission Patient got some IV fluids in ER. Electrolytes were repleted Monitor electrolytes with home diuretics Encourage oral intake (9) Hypoglycemia: Due to poor oral intake. Has had occasional hypoglycemic episodes since admission A1c 6.7 Continue to monitor glucose and manage per protocol. Pharm on board Hold home antidiabetic regimen May need suspension of home insulin on discharge (10) Elevated troponin: No chest pain. No ischemic changes. Troponin is chronically elevated Continue tele monitoring (11) CAD (coronary artery disease), [place] coronary artery: (12) Cardiac defibrillator in place: (13) CHF (congestive heart failure): Patient does not appear to be in fluid overload at this time. Continue Imdur and metoprolol succinate Continue aspirin, Plavix, statin Continue home diuretics and monitor electrolytes (14) HLD (hyperlipidemia): Continue atorvastatin (15) Hypertension: Blood pressure currently normal. Continue to hold verapamil for now (16) Anxiety: Continue home medication (17) DVT prophylaxis: Lovenox subcu Admission and Anticipated Discharge Date Admission Date: November 13, 2020 Subjective Patient seen and examined. Reports feeling better today. Still has cough and shortness of breath but improving Reports intermittent migraine headache which is chronic Denied chest pain Denied fevers or chills, nausea, vomiting Physical Exam Constitutional: + well hydrated and + obese; no acute distress Eyes: PERRL, conjunctivae normal, anicteric sclerae ENMT: external ear and nose normal, oropharynx normal Respiratory: no respiratory distress No crackles or wheeze Diminished breath sounds in lung bases On 2 L/min nasal oxygen Cardiovascular: Rate/Rhythm: regular rate and regular rhythm S1-S2 Gastrointestinal (Abdomen): normal bowel sounds, soft, nontender, no hepatosplenomegaly Musculoskeletal: no cyanosis or clubbing, extremities motor strength 5/5 Neurologic: PERRL, EOMI, accommodation nl, no face palsy, no dysarthria Psychiatric: A+Ox3, euthymic affect Results & Data Results & Data ([facility]) Vital Signs (Past 12 Hours) Vital Signs Temp Pulse Pulse Resp BP Pulse Ox 11/16/20 11:36 36.4 C L 68 20 110/62 99 11/16/20 08:24 36.7 C 69 18 135/74 99 11/16/20 07:43 64 16 99 11/16/20 06:30 61 11/16/20 03:56 36.5 C 64 16 99/56 L 99 Laboratory Results Laboratory Results - last 24 hr 11/15/20 11/15/20 11/16/20 16:40 19:58 07:32 WBC RBC Hgb Hct MCV MCH MCHC RDW Std Deviation RDW Coeff of Rolan Plt Count MPV Sodium Potassium Chloride Carbon Dioxide Anion Gap BUN Creatinine Est Cr Clr Drug Dosing Est GFR ( Amer) Est GFR (Non-Af Amer) BUN/Creatinine Ratio Glucose POC Glucose 190 H 149 H 54 L* Calcium Phosphorus Magnesium Total Bilirubin AST ALT Alkaline Phosphatase C-Reactive Protein Total Protein Albumin Globulin Albumin/Globulin Ratio Procalcitonin 11/16/20 11/16/20 11/16/20 07:34 07:38 07:38 WBC 5.06 RBC 3.98 L Hgb 10.1 L Hct 34.4 L MCV 86.4 MCH 25.4 MCHC 29.4 L RDW Std Deviation 62.5 H RDW Coeff of Rolan 19.6 H Plt Count 195 MPV 9.6 Sodium 148 H Potassium 4.6 Chloride 112 H Carbon Dioxide 28 Anion Gap 8.0 BUN 42 H Creatinine 1.61 H Est Cr Clr Drug Dosing 33.2 Est GFR ( Amer) 39.3 Est GFR (Non-Af Amer) 33.9 BUN/Creatinine Ratio 26.1 H Glucose 86 POC Glucose 59 L* Calcium 9.0 Phosphorus 4.0 Magnesium 2.1 Total Bilirubin 0.4 AST 23 ALT 24 Alkaline Phosphatase 106 C-Reactive Protein 4.38 H Total Protein 7.3 Albumin 3.3 L Globulin 4.0 Albumin/Globulin Ratio 0.8 L Procalcitonin 11/16/20 11/16/20 11/16/20 07:38 07:48 07:49 WBC RBC Hgb Hct MCV MCH MCHC RDW Std Deviation RDW Coeff of Rolan Plt Count MPV Sodium Potassium Chloride Carbon Dioxide Anion Gap BUN Creatinine Est Cr Clr Drug Dosing Est GFR ( Amer) Est GFR (Non-Af Amer) BUN/Creatinine Ratio Glucose POC Glucose 69 L* 75 Calcium Phosphorus Magnesium Total Bilirubin AST ALT Alkaline Phosphatase C-Reactive Protein Total Protein Albumin Globulin Albumin/Globulin Ratio Procalcitonin 0.12 11/16/20 11:33 WBC RBC Hgb Hct MCV MCH MCHC RDW Std Deviation RDW Coeff of Rolan Plt Count MPV Sodium Potassium Chloride Carbon Dioxide Anion Gap BUN Creatinine Est Cr Clr Drug Dosing Est GFR ( Amer) Est GFR (Non-Af Amer) BUN/Creatinine Ratio Glucose POC Glucose 134 H Calcium Phosphorus Magnesium Total Bilirubin AST ALT Alkaline Phosphatase C-Reactive Protein Total Protein Albumin Globulin Albumin/Globulin Ratio Procalcitonin (1) Headache Headache chronicity pattern: unspecified pattern Headache type: unspecified Intractability: not intractable Qualified Code(s): R51.9 - Headache, unspecified (2) CAD (coronary artery disease), [place] coronary artery [place] vs. transplanted heart: [place] heart Associated angina: with unstable angina Qualified Code(s): I25.110 - Atherosclerotic heart disease of [place] coronary artery with unstable angina pectoris
[2020-11-16] MEDS: VANCOMYCIN HCL 1,250 MG in SODIUM CHLORIDE 0.9% 250 ML IV SCH (16:34)
[2020-11-16] MEDS: rOPINIRole HCL 0.25 MG TABLET PO SCH (20:46)
[2020-11-16] MEDS: FOLIC ACID 1 MG TAB PO SCH (20:47)
[2020-11-16] MEDS: MIRTAZAPINE SOLTAB 15 MG PO SCH (20:51)
[2020-11-16] MEDS ORDERED: VERAPAMIL HCL 40 MG TAB PO SCH ×2 (21:00)
[2020-11-16] MEDS: REMDESIVIR 100 MG in SODIUM CHLORIDE 0.9% 230 ML IV SCH (21:12)
[2020-11-16] MEDS: SODIUM CHLORIDE 0.9% 10ML FLUSH IV SCH (22:20)
[2020-11-17] MEDS: BUDESONIDE 0.5 MG/2 ML VIAL (PULMICORT) INH SCH ×2 (07:08→19:42)
[2020-11-17] MEDS: METOPROLOL SUCC 50MG EXT REL TAB PO SCH ×2 (08:54→20:25)
[2020-11-17] MEDS: TORSEMIDE 10 MG TAB PO SCH (08:54)
[2020-11-17] MEDS: FLUTICASONE/VILANTEROL 200/25MCG 14 PUFFS/INHALER INH SCH (08:54)
[2020-11-17] MEDS: SPIRONOLACTONE 25 MG TAB PO SCH (08:54)
[2020-11-17] MEDS: GABAPENTIN 300 MG CAP PO SCH ×3 (08:55→20:27)
[2020-11-17] MEDS: DULoxetine HCL 60 MG CAP PO SCH (08:55)
[2020-11-17] MEDS: ADVANCED PROBIOTIC 1250 MG CAPSULE PO SCH ×3 (08:55→20:26)
[2020-11-17] MEDS: ISOSORBIDE MONO EXTENDED REL 30 MG TABCR PO SCH (08:55)
[2020-11-17] MEDS: ENOXAPARIN INJ 40 MG/0.4 ML SYR SQ SCH (08:55)
[2020-11-17] MEDS: dexAMETHasone 4 MG TAB PO SCH (08:55)
[2020-11-17] MEDS: ASPIRIN 81 MG ECTAB PO SCH (08:55)
[2020-11-17] MEDS: VERAPAMIL HCL 40 MG TAB PO SCH ×4 (08:55→20:24)
[2020-11-17] MEDS: PANTOprazole 40 MG TAB PO SCH ×2 (08:55→20:27)
[2020-11-17] MEDS: ATORVASTATIN 40 MG TAB PO SCH (08:55)
[2020-11-17] MEDS: CLOPIDOGREL BISULFATE 75 MG TAB PO SCH (08:55)
[2020-11-17] MEDS: INSULIN ASPART 100 UNITS/ML 3 ML PEN SC SCH ×4 (09:00→21:52)
[2020-11-17 09:31] LABS: Albumin Globulin Ratio 0.9 (0.9-2); Albumin Level 3.2 gm/dl (3.4-5.0); Bilirubin,Total 0.4 mg/dl (0.2-1); C Reactive Protein 3.27 mg/dl (0-0.29); Est GFR (African American) 47.8; Est GFR (Non-African American) 41.2; Globulin 3.7 gm/dl (2.5-4.0); Magnesium 2.1 mg/dl (1.8-2.4); Potassium 4.8 mmol/L (3.5-5.1); Total Protein 6.9 gm/dl (6.4-8.2)
[2020-11-17 09:56] LABS: Hematocrit (blood only) 33.6 % (37-47); Hemoglobin 9.8 g/dL (12.0-16.0); Mean Corpuscular Hemoglobin 25.1 pg (25-34); Mean Corpuscular Hgb Conc 29.2 g/dL (32-36); Mean Corpuscular Volume 86.2 fL (80-100); Mean Platelet Volume 10.1 fL (7.4-10.4); Platelet Count 176 K/uL (130-400); RDW Coefficient of Variation 19.6 % (11.5-14.5); RDW Standard Deviation 61.9 fL (36.4-46.3); White Blood Count 4.93 K/uL (4.8-10.8)
--- NOTE | 2020-11-17 14:21 | Hospitalist Progress Note ---
Date of Service November 17, 2020 Assessment & Plan (1) Pneumonia due to COVID-19 virus: The patient is oxygenating at her baseline level of chronic hypoxia. Respiratory symptoms and malaise are improving. She has remained afebrile. Will repeat chest x-ray to monitor progression of pneumonia. CRP is slowly improving. Continue dexamethasone and remdesivir. Patient declined convalescent plasma. Rocephin and azithromycin were initially started but were stopped after procalcitonin was negative and clinical picture was improving. (2) Electrolyte abnormality: Multiple electrolyte abnormalities These are likely due to poor oral intake plus diuretics Na was 150 on admission All abnormalities have been resolved into normal range. Cont to monitor. (3) Hypoglycemia: Due to poor oral intake. Has had occasional hypoglycemic episodes since admission A1c 6.7 Cont management per inpatient glycemic pharmacist. (4) Elevated troponin: No chest pain. No ischemic changes or clinical picture consistent with ACS. Troponin is chronically elevated Continue tele monitoring (5) CAD (coronary artery disease), [place] coronary artery: Chronic, stable, continue medical management with aspirin 81 mg daily, Lipitor 40 mg daily, Plavix 75 mg daily, isosorbide mononitrate 30 mg daily, metoprolol succinate 100 mg p.o. twice daily. (6) Cardiac defibrillator in place: (7) CHF (congestive heart failure): Chronic, euvolemic Continue Imdur and metoprolol succinate Continue aspirin, Plavix, statin Continue home diuretics and monitor electrolytes (8) Hypertension: At goal, continue current medical therapy. (9) Anxiety: Chronic, stable. Continue home medication (10) DVT prophylaxis: Lovenox Full code Disposition-likely to home when medically improved. PT/OT for evaluation. DO [facility] Admission and Anticipated Discharge Date Admission Date: November 13, 2020 Subjective cc: covid positive Patient is starting to feel improved. Initial symptoms included headache, malaise, reported fever-has been afebrile this admission, shortness of breath, improved Tolerating p.o. and oxygenating well on her baseline 2 L/min. Denies any chest pain. Reports several members of her family are sick at home but are testing negative for Covid. Review of Systems Review of Systems: All systems reviewed & are unremarkable except as noted in Subjective Physical Exam Physical Exam: CONSTITUTIONAL: obese, vitals as above, generally well-ap pearing EYES: normal conjunctivae, no scleral icterus ENT: external ear and nose normal, MMM RESPIRATORY: clear to auscultation bilaterally, no crackles, rales or wheezes, normal respiratory effort CARDIOVASCULAR: regular rate and rhythm, S1 and 2 heard without murmurs, gallops or rubs, no JVD, no peripheral edema GASTROINTESTINAL: soft, nontender, nondistended, no guarding. MUSCULOSKELETAL: strength 5/5 throughout, head is normocephalic and atraumatic SKIN: warm and dry NEUROLOGIC: CN 2-12 grossly intact, no sensory deficit, normal cognition, normal speech, no gross focal deficits. PSYCHIATRIC: alert cooperative and oriented to person, place and time. Results & Data Results & Data ([facility]) Vital Signs (Past 12 Hours) Vital Signs Temp Pulse Resp BP BP Pulse Ox 11/17/20 13:30 62 114/70 11/17/20 07:41 36.6 C 64 18 120/72 100 11/17/20 07:08 66 14 100 Laboratory Results Short CBC 11/17/20 Range/Units 08:28 WBC 4.93 (4.8-10.8) K/uL Hgb 9.8 L (12.0-16.0) g/dL Hct 33.6 L (37-47) % Plt Count 176 (130-400) K/uL BMP 11/17/20 08:28 Sodium 145 Potassium 4.8 Chloride 116 H Carbon Dioxide 23 BUN 40 H Creatinine 1.37 H Glucose 82 Calcium 9.0 Liver Function 11/17/20 Range/Units 08:28 Total Bilirubin 0.4 (0.2-1) mg/dl AST 34 (15-37) U/L ALT 27 (12-78) U/L Alkaline Phosphatase 115 (45-117) U/L Albumin 3.2 L (3.4-5.0) gm/dl Medications Administered Current Inpatient Medications Albuterol (Albuterol Hfa 8 Gm Inhaler) 2 puffs INH Q4H PRN PRN Reason: Wheezing Stop: 12/14/20 02:45 Aspirin (Aspirin 81 Mg Ectab) 81 mg PO DAILY [facility] Stop: 12/14/20 08:59 Last Admin: 11/17/20 08:55 Dose: 81 mg Documented by: Atorvastatin Calcium (Atorvastatin 40 Mg Tab) 40 mg PO QAM [facility] Stop: 12/14/20 08:59 Last Admin: 11/17/20 08:55 Dose: 40 mg Documented by: Budesonide (Budesonide 0.5 Mg/2 Ml Vial (Pulmicort)) 0.5 mg INH Q12R [facility] Stop: 12/14/20 02:45 Last Admin: 11/17/20 07:08 Dose: 0.5 mg Documented by: Clopidogrel Bisulfate (Clopidogrel Bisulfate 75 Mg Tab) 75 mg PO QAM [facility] Stop: 12/14/20 08:59 Last Admin: 11/17/20 08:55 Dose: 75 mg Documented by: Dexamethasone (Dexamethasone 4 Mg Tab) 6 mg PO DAILY [facility] Stop: 11/23/20 19:14 Last Admin: 11/17/20 08:55 Dose: 6 mg Documented by: Dextrose (Dextrose 50% 50 Ml Syringe) 25 - 50 ml IV UD PRN; Protocol PRN Reason: Hypoglycemia Protocol Stop: 12/15/20 07:39 Duloxetine HCl (Duloxetine Hcl 60 Mg Cap) 60 mg PO QAM [facility] Stop: 12/14/20 08:59 Last Admin: 11/17/20 08:55 Dose: 60 mg Documented by: Enoxaparin Sodium (Enoxaparin Inj 40 Mg/0.4 Ml Syr) 40 mg SQ Q24H [facility] Stop: 12/14/20 08:59 Last Admin: 11/17/20 08:55 Dose: 40 mg Documented by: Fluticasone/Vilanterol (Fluticasone/Vilanterol 200/25mcg 14 Puffs/Inhaler) 1 puffs INH DAILY [facility] Stop: 12/14/20 08:59 Last Admin: 11/17/20 08:54 Dose: 1 puffs Documented by: Folic Acid (Folic Acid 1 Mg Tab) 1 mg PO HS [facility] Stop: 12/14/20 02:45 Last Admin: 11/16/20 20:47 Dose: 1 mg Documented by: Gabapentin (Gabapentin 300 Mg Cap) 300 mg PO TID [facility] Stop: 12/14/20 02:45 Last Admin: 11/17/20 13:31 Dose: 300 mg Documented by: Glucagon (Glucagon For Inj 1 Mg Vial) 1 mg SQ UD PRN; Protocol PRN Reason: Hypoglycemia Protocol Stop: 12/15/20 07:39 Glucose (Glucose 10 Tabs/Tube) 4 - 8 tabs PO UD PRN; Protocol PRN Reason: Hypoglycemia Protocol Stop: 12/15/20 07:39 Glucose (Glucose 40% Gel 15 Gm Tube) 15 - 30 gm PO UD PRN; Protocol PRN Reason: Hypoglycemia Protocol Stop: 12/15/20 07:39 Vancomycin HCl 1,250 mg/ (Sodium Chloride) 275 mls @ 200 mls/hr IV Q24H [facility] Stop: 11/29/20 15:59 Last Infusion: 11/17/20 18:19 Dose: Infused Documented by: Remdesivir 100 mg/ Sodium (Chloride) 250 mls @ 250 mls/hr IV Q24H [facility]; Protocol Stop: 11/17/20 20:59 Last Infusion: 11/16/20 22:19 Dose: Infused Documented by: Insulin Aspart (Insulin Aspart 100 Units/Ml 3 Ml Pen) 0 units SC ACHS [facility] Stop: 12/15/20 07:44 Last Admin: 11/17/20 12:41 Dose: 10 units Documented by: Isosorbide Mononitrate (Isosorbide [place] Extended Rel 30 Mg Tabcr) 30 mg PO QAM [facility] Stop: 12/14/20 08:59 Last Admin: 11/17/20 08:55 Dose: 30 mg Documented by: Lactobacillus Acidoph/Casei/Rhamnos (Advanced Probiotic 1250 Mg Capsule) 2 cap PO TID [facility] Stop: 12/14/20 08:59 Last Admin: 11/17/20 13:31 Dose: 2 cap Documented by: Metoprolol Succinate (Metoprolol Succ 50mg Ext Rel Tab) 100 mg PO BID [facility] Stop: 12/14/20 02:45 Last Admin: 11/17/20 08:54 Dose: 100 mg Documented by: Mirtazapine (Mirtazapine Soltab 15 Mg) 45 mg PO HS [facility] Stop: 12/14/20 02:45 Last Admin: 11/16/20 20:51 Dose: 45 mg Documented by: Miscellaneous (Carbohydrates For Hypoglycemia ) 15 - 30 gm PO UD PRN PRN Reason: Hypoglycemia Protocol Stop: 12/15/20 07:39 Last Admin: 11/16/20 07:35 Dose: 15 gm Documented by: Miscellaneous Information (Vancomycin Consult Active) 1 ea N/A UD PRN PRN Reason: Consult Stop: 12/14/20 15:39 Pantoprazole Sodium (Pantoprazole 40 Mg Tab) 40 mg PO BID [facility] Stop: 12/14/20 02:45 Last Admin: 11/17/20 08:55 Dose: 40 mg Documented by: Ropinirole HCl (Ropinirole Hcl 0.25 Mg Tablet) 0.5 mg PO HS [facility] Stop: 12/14/20 02:45 Last Admin: 11/16/20 20:46 Dose: 0.5 mg Documented by: Sodium Chloride (Sodium Chloride 0.9% 10ml Flush) 30 ml IV Q24H [facility] Stop: 11/17/20 21:01 Last Admin: 11/16/20 22:20 Dose: 30 ml Documented by: Spironolactone (Spironolactone 25 Mg Tab) 25 mg PO QAM [facility] Stop: 12/15/20 08:59 Last Admin: 11/17/20 08:54 Dose: 25 mg Documented by: Torsemide (Torsemide 10 Mg Tab) 10 mg PO QAM [facility] Stop: 12/14/20 13:59 Last Admin: 11/17/20 08:54 Dose: 10 mg Documented by: Verapamil HCl (Verapamil Hcl 40 Mg Tab) 40 mg PO QID [facility] Stop: 12/16/20 20:59 Last Admin: 11/17/20 18:22 Dose: 40 mg Documented by: (1) CAD (coronary artery disease), [place] coronary artery Associated angina: with unstable angina [place] vs. transplanted heart: [place] heart Qualified Code(s): I25.110 - Atherosclerotic heart disease of [place] coronary artery with unstable angina pectoris
[2020-11-17] MEDS ORDERED: VANCOMYCIN TROUGH ONE (15:30)
[2020-11-17] MEDS: VANCOMYCIN HCL 1,250 MG in SODIUM CHLORIDE 0.9% 250 ML IV SCH (16:00)
--- NOTE | 2020-11-17 17:47 | Pharmacy Report ---
Pharmacy Abx Dose Short Note - Date of Service November 17, 2020 - Assessment & Plan Assessment 60 year old F receiving Vancomycin for treatment of possible bacteremia. Day # 4 of antimicrobial therapy. * 1 of 2 blood cultures growing coag neg staph. Plan Vancomycin * Trough level of 16.6 mcg/mL is therapeutic * Continue dose of 1250 mg IV every 24 hours * Goal trough level for bacteremia : 15 to 20 mcg/mL * No further levels ordered at this time. Recommend trough be drawn in 48 hours if vanc continued to ensure pt is not accumulating drug. BMI>35. Pharmacy will continue to follow and will adjust dose/frequency as necessary. Thank you.
[2020-11-17] MEDS: REMDESIVIR 100 MG in SODIUM CHLORIDE 0.9% 230 ML IV SCH (20:19)
[2020-11-17] MEDS: rOPINIRole HCL 0.25 MG TABLET PO SCH (20:26)
[2020-11-17] MEDS: MIRTAZAPINE SOLTAB 15 MG PO SCH (20:26)
[2020-11-17] MEDS: FOLIC ACID 1 MG TAB PO SCH (20:27)
[2020-11-17] MEDS: SODIUM CHLORIDE 0.9% 10ML FLUSH IV SCH (21:45)
[2020-11-18] MEDS: BUDESONIDE 0.5 MG/2 ML VIAL (PULMICORT) INH SCH ×2 (07:47→19:13)
--- NOTE | 2020-11-18 08:36 | XRay Report ---
XR chest 1V portable HISTORY: Follow-up pneumonia. evaluate recent pneumonia COMPARISON: Chest 11/13/2020. FINDINGS: No pneumothorax. The heart remains enlarged. There is a right-sided pacemaker/defibrillator . Mild perihilar interstitial and vascular thickening persists. This suggests mild congestive change. No new focal lung consolidations to suggest pneumonia. Suspect a trace left pleural effusion, unchan ged. IMPRESSION: 1. No significant change in cardiomegaly and mild congestive change. 2. Trace left pleural effusion persists. 3. No new focal lung consolidations. ACT 112: Negative or not required by law. Electronically signed by: Serg Arias M.D. 11/18/2020 8:35 AM
[2020-11-18] MEDS: FLUTICASONE/VILANTEROL 200/25MCG 14 PUFFS/INHALER INH SCH (08:50)
[2020-11-18] MEDS: dexAMETHasone 4 MG TAB PO SCH (08:51)
[2020-11-18] MEDS: METOPROLOL SUCC 50MG EXT REL TAB PO SCH ×2 (08:52→20:01)
[2020-11-18] MEDS: VERAPAMIL HCL 40 MG TAB PO SCH ×4 (08:52→20:01)
[2020-11-18] MEDS: TORSEMIDE 10 MG TAB PO SCH (08:52)
[2020-11-18] MEDS: PANTOprazole 40 MG TAB PO SCH ×2 (08:52→20:00)
[2020-11-18] MEDS: ADVANCED PROBIOTIC 1250 MG CAPSULE PO SCH ×3 (08:52→20:01)
[2020-11-18] MEDS: GABAPENTIN 300 MG CAP PO SCH ×3 (08:52→20:00)
[2020-11-18] MEDS: ATORVASTATIN 40 MG TAB PO SCH (08:52)
[2020-11-18] MEDS: CLOPIDOGREL BISULFATE 75 MG TAB PO SCH (08:52)
[2020-11-18] MEDS: ENOXAPARIN INJ 40 MG/0.4 ML SYR SQ SCH (08:52)
[2020-11-18] MEDS: ISOSORBIDE MONO EXTENDED REL 30 MG TABCR PO SCH (08:52)
[2020-11-18] MEDS: DULoxetine HCL 60 MG CAP PO SCH (08:52)
[2020-11-18] MEDS: ASPIRIN 81 MG ECTAB PO SCH (08:52)
[2020-11-18] MEDS: SPIRONOLACTONE 25 MG TAB PO SCH (08:52)
[2020-11-18] MEDS: INSULIN ASPART 100 UNITS/ML 3 ML PEN SC SCH ×4 (08:55→21:03)
[2020-11-18 09:20] LABS: BUN Creatinine Ratio 30.4 (10-20); C Reactive Protein 2.07 mg/dl (0-0.29); Calcium 8.9 mg/dl (8.5-10.1); Creatinine Clr Calc Pharmacy 39.6 ml/min; Est GFR (African American) 48.6; Potassium 4.3 mmol/L (3.5-5.1)
[2020-11-18 09:21] LABS: Phosphorus 3.6 mg/dl (2.5-4.9)
--- NOTE | 2020-11-18 16:49 | Hospitalist Progress Note ---
Date of Service November 18, 2020 Assessment & Plan (1) Pneumonia due to COVID-19 virus: The patient is oxygenating at her baseline level of chronic hypoxia. Respiratory symptoms and malaise are improving. She has remained afebrile. Repeat CXR shows no new infiltrates. CRP is slowly improving. Continue dexamethasone and completed remdesivir. Rocephin and azithromycin were initially started but were stopped after procalcitonin was negative and clinical picture was improving. She is good for dc in the morning. (2) Electrolyte abnormality: Multiple electrolyte abnormalities These are likely due to poor oral intake plus diuretics Na was 150 on admission All abnormalities have been resolved into normal range. Cont to monitor. (3) Elevated troponin: No chest pain. No ischemic changes or clinical picture consistent with ACS. Troponin is chronically elevated Continue tele monitoring (4) CAD (coronary artery disease), [place] coronary artery: Chronic, stable, continue medical management with aspirin 81 mg daily, Lipitor 40 mg daily, Plavix 75 mg daily, isosorbide mononitrate 30 mg daily, metoprolol succinate 100 mg p.o. twice daily. (5) Cardiac defibrillator in place: (6) CHF (congestive heart failure): Chronic, euvolemic Continue Imdur and metoprolol succinate Continue aspirin, Plavix, statin Continue home diuretics and monitor electrolytes (7) Hypertension: At goal, continue current medical therapy. (8) Anxiety: Chronic, stable. Continue home medication (9) DVT prophylaxis: Lovenox Full code Disposition-likely to home in am. Denise Sanchez DO [facility] Hospitalist Admission and Anticipated Discharge Date Admission Date: November 13, 2020 Subjective cc: covid positive Reports not feeling improved, however, she couldn't really explain why. Finally, she reports that she is fearful of going home. She completed last dose of remdesivir yesterday. She is at her baseline oxygen needs. We discussed this until all questions were answered and she felt comfortable. Denies all other symptoms at this time. Review of Systems Review of Systems: All systems reviewed & are unremarkable except as noted in Subjective Physical Exam Physical Exam: CONSTITUTIONAL: obese, vitals as above, generally well- appearing EYES: normal conjunctivae, no scleral icterus ENT: external ear and nose normal, MMM RESPIRATORY: clear to auscultation bilaterally, no crackles, rales or wheezes, normal respiratory effort CARDIOVASCULAR: regular rate and rhythm, S1 and 2 heard without murmurs, gallops or rubs, no JVD, no peripheral edema GASTROINTESTINAL: soft, nontender, nondistended, no guarding. MUSCULOSKELETAL: strength 5/5 throughout, head is normocephalic and atraumatic SKIN: warm and dry NEUROLOGIC: CN 2-12 grossly intact, no sensory deficit, normal cognition, normal speech, no gross focal deficits. PSYCHIATRIC: alert cooperative and oriented to person, place and time. Results & Data Results & Data ([facility]) Vital Signs (Past 12 Hours) Vital Signs Temp Pulse Resp BP BP Pulse Ox 11/18/20 15:32 36.3 C L 67 16 108/66 98 11/18/20 13:21 68 116/65 11/18/20 07:48 57 L 18 99 11/18/20 07:23 36.4 C L 75 16 132/80 98 Laboratory Results BMP 11/18/20 07:08 Sodium 146 H Potassium 4.3 Chloride 111 H Carbon Dioxide 28 BUN 41 H Creatinine 1.35 H Glucose 99 Calcium 8.9 Medications Administered Current Inpatient Medications Albuterol (Albuterol Hfa 8 Gm Inhaler) 2 puffs INH Q4H PRN PRN Reason: Wheezing Stop: 12/14/20 02:45 Aspirin (Aspirin 81 Mg Ectab) 81 mg PO DAILY [facility] Stop: 12/14/20 08:59 Last Admin: 11/18/20 08:52 Dose: 81 mg Documented by: Atorvastatin Calcium (Atorvastatin 40 Mg Tab) 40 mg PO QAM [facility] Stop: 12/14/20 08:59 Last Admin: 11/18/20 08:52 Dose: 40 mg Documented by: Budesonide (Budesonide 0.5 Mg/2 Ml Vial (Pulmicort)) 0.5 mg INH Q12R [facility] Stop: 12/14/20 02:45 Last Admin: 11/18/20 07:47 Dose: 0.5 mg Documented by: Clopidogrel Bisulfate (Clopidogrel Bisulfate 75 Mg Tab) 75 mg PO QAM [facility] Stop: 12/14/20 08:59 Last Admin: 11/18/20 08:52 Dose: 75 mg Documented by: Dexamethasone (Dexamethasone 4 Mg Tab) 6 mg PO DAILY [facility] Stop: 11/23/20 19:14 Last Admin: 11/18/20 08:51 Dose: 6 mg Documented by: Dextrose (Dextrose 50% 50 Ml Syringe) 25 - 50 ml IV UD PRN; Protocol PRN Reason: Hypoglycemia Protocol Stop: 12/15/20 07:39 Duloxetine HCl (Duloxetine Hcl 60 Mg Cap) 60 mg PO QAM [facility] Stop: 12/14/20 08:59 Last Admin: 11/18/20 08:52 Dose: 60 mg Documented by: Enoxaparin Sodium (Enoxaparin Inj 40 Mg/0.4 Ml Syr) 40 mg SQ Q24H [facility] Stop: 12/14/20 08:59 Last Admin: 11/18/20 08:52 Dose: Not Given Documented by: Fluticasone/Vilanterol (Fluticasone/Vilanterol 200/25mcg 14 Puffs/Inhaler) 1 puffs INH DAILY [facility] Stop: 12/14/20 08:59 Last Admin: 11/18/20 08:50 Dose: 1 puffs Documented by: Folic Acid (Folic Acid 1 Mg Tab) 1 mg PO HS [facility] Stop: 12/14/20 02:45 Last Admin: 11/17/20 20:27 Dose: 1 mg Documented by: Gabapentin (Gabapentin 300 Mg Cap) 300 mg PO TID [facility] Stop: 12/14/20 02:45 Last Admin: 11/18/20 13:25 Dose: 300 mg Documented by: Glucagon (Glucagon For Inj 1 Mg Vial) 1 mg SQ UD PRN; Protocol PRN Reason: Hypoglycemia Protocol Stop: 12/15/20 07:39 Glucose (Glucose 10 Tabs/Tube) 4 - 8 tabs PO UD PRN; Protocol PRN Reason: Hypoglycemia Protocol Stop: 12/15/20 07:39 Glucose (Glucose 40% Gel 15 Gm Tube) 15 - 30 gm PO UD PRN; Protocol PRN Reason: Hypoglycemia Protocol Stop: 12/15/20 07:39 Insulin Aspart (Insulin Aspart 100 Units/Ml 3 Ml Pen) 0 units SC ACHS [facility] Stop: 12/15/20 07:44 Last Admin: 11/18/20 13:25 Dose: 7 units Documented by: Isosorbide Mononitrate (Isosorbide [place] Extended Rel 30 Mg Tabcr) 30 mg PO QAM [facility] Stop: 12/14/20 08:59 Last Admin: 11/18/20 08:52 Dose: 30 mg Documented by: Lactobacillus Acidoph/Casei/Rhamnos (Advanced Probiotic 1250 Mg Capsule) 2 cap PO TID [facility] Stop: 12/14/20 08:59 Last Admin: 11/18/20 13:26 Dose: 2 cap Documented by: Metoprolol Succinate (Metoprolol Succ 50mg Ext Rel Tab) 100 mg PO BID [facility] Stop: 12/14/20 02:45 Last Admin: 11/18/20 08:52 Dose: 100 mg Documented by: Mirtazapine (Mirtazapine Soltab 15 Mg) 45 mg PO HS [facility] Stop: 12/14/20 02:45 Last Admin: 11/17/20 20:26 Dose: 45 mg Documented by: Miscellaneous (Carbohydrates For Hypoglycemia ) 15 - 30 gm PO UD PRN PRN Reason: Hypoglycemia Protocol Stop: 12/15/20 07:39 Last Admin: 11/16/20 07:35 Dose: 15 gm Documented by: Pantoprazole Sodium (Pantoprazole 40 Mg Tab) 40 mg PO BID [facility] Stop: 12/14/20 02:45 Last Admin: 11/18/20 08:52 Dose: 40 mg Documented by: Ropinirole HCl (Ropinirole Hcl 0.25 Mg Tablet) 0.5 mg PO HS [facility] Stop: 12/14/20 02:45 Last Admin: 11/17/20 20:26 Dose: 0.5 mg Documented by: Spironolactone (Spironolactone 25 Mg Tab) 25 mg PO QAM [facility] Stop: 12/15/20 08:59 Last Admin: 11/18/20 08:52 Dose: 25 mg Documented by: Torsemide (Torsemide 10 Mg Tab) 10 mg PO QAM [facility] Stop: 12/14/20 13:59 Last Admin: 11/18/20 08:52 Dose: 10 mg Documented by: Verapamil HCl (Verapamil Hcl 40 Mg Tab) 40 mg PO QID [facility] Stop: 12/16/20 20:59 Last Admin: 11/18/20 13:24 Dose: 40 mg Documented by: (1) CAD (coronary artery disease), [place] coronary artery Associated angina: with unstable angina [place] vs. transplanted heart: [place] heart Qualified Code(s): I25.110 - Atherosclerotic heart disease of [place] coronary artery with unstable angina pectoris
[2020-11-18] MEDS: MIRTAZAPINE SOLTAB 15 MG PO SCH (20:00)
[2020-11-18] MEDS: FOLIC ACID 1 MG TAB PO SCH (20:01)
[2020-11-18] MEDS: rOPINIRole HCL 0.25 MG TABLET PO SCH (20:01)
[2020-11-19 07:59] VITALS: TEMP 97.5
[2020-11-19 08:11] VITALS: O2SAT 95
[2020-11-19] MEDS: BUDESONIDE 0.5 MG/2 ML VIAL (PULMICORT) INH SCH (08:11)
[2020-11-19] MEDS: ENOXAPARIN INJ 40 MG/0.4 ML SYR SQ SCH (08:31)
[2020-11-19] MEDS: CLOPIDOGREL BISULFATE 75 MG TAB PO SCH (08:32)
[2020-11-19] MEDS: DULoxetine HCL 60 MG CAP PO SCH (08:32)
[2020-11-19] MEDS: ISOSORBIDE MONO EXTENDED REL 30 MG TABCR PO SCH (08:32)
[2020-11-19] MEDS: TORSEMIDE 10 MG TAB PO SCH (08:32)
[2020-11-19] MEDS: ATORVASTATIN 40 MG TAB PO SCH (08:32)
[2020-11-19] MEDS: METOPROLOL SUCC 50MG EXT REL TAB PO SCH (08:33)
[2020-11-19] MEDS: ASPIRIN 81 MG ECTAB PO SCH (08:33)
[2020-11-19] MEDS: ADVANCED PROBIOTIC 1250 MG CAPSULE PO SCH (08:33)
[2020-11-19] MEDS: PANTOprazole 40 MG TAB PO SCH (08:33)
[2020-11-19] MEDS: SPIRONOLACTONE 25 MG TAB PO SCH (08:33)
[2020-11-19] MEDS: GABAPENTIN 300 MG CAP PO SCH (08:33)
[2020-11-19] MEDS: FLUTICASONE/VILANTEROL 200/25MCG 14 PUFFS/INHALER INH SCH (08:34)
[2020-11-19] MEDS: VERAPAMIL HCL 40 MG TAB PO SCH (08:34)
[2020-11-19] MEDS ORDERED: SITagliptin PHOSPHATE 100 MG TAB PO SCH (09:00)
[2020-11-19] MEDS ORDERED: INSULIN 70% ASPART PROTAMINE/30% ASPART SC SCH (09:15)
--- NOTE | 2020-11-19 09:31 | Discharge Summary ---
Date of Service November 19, 2020 Discharge Data Allergies Allergy/AdvReac Type Severity Reaction Status Date / Time Penicillins Allergy Intermediate Flushing, Verified 10/31/20 21:35 Itchiness Sulfa (Sulfonamide Allergy Intermediate Swelling Verified 10/31/20 21:35 Antibiotics) doxycycline Allergy Unknown Unknown Verified 10/31/20 21:35 adhesive AdvReac Intermediate Blistering Verified 10/31/20 21:35 Consultations 11/13/20 18:06 ED Decision to Admit Stat Ordered Studies 11/13/20 15:10 CT head/brain wo con Stat Hospital Course (1) Pneumonia due to COVID-19 virus: The patient is oxygenating at her baseline level of chronic hypoxia. Respiratory symptoms and malaise are improving. She has remained afebrile. Repeat CXR shows no new infiltrates. CRP is slowly improving. Continue dexamethasone and completed remdesivir. Rocephin and azithromycin were initially started but were stopped after procalcitonin was negative and clinical picture was improving. She is good for dc in the morning. (2) Electrolyte abnormality: Multiple electrolyte abnormalities These are likely due to poor oral intake plus diuretics Na was 150 on admission All abnormalities have been resolved into normal range. Cont to monitor. (3) Elevated troponin: No chest pain. No ischemic changes or clinical picture consistent with ACS. Troponin is chronically elevated Continue tele monitoring (4) CAD (coronary artery disease), [place] coronary artery: Chronic, stable, continue medical management with aspirin 81 mg daily, Lipitor 40 mg daily, Plavix 75 mg daily, isosorbide mononitrate 30 mg daily, metoprolol succinate 100 mg p.o. twice daily. (5) Cardiac defibrillator in place: (6) CHF (congestive heart failure): Chronic, euvolemic Continue Imdur and metoprolol succinate Continue aspirin, Plavix, statin Continue home diuretics and monitor electrolytes (7) Hypertension: At goal, continue current medical therapy. (8) Anxiety: Chronic, stable. Continue home medication (9) DVT prophylaxis: Lovenox Full code Disposition-likely to home in am. DO aBrbara Smith Hospitalist Discharge Plan Discharge Items Patient Disposition: Home - Self-Care Reason For Visit: SOB Discharge Diagnosis: Pneumonia due to covid-19 virus electrolyte abnormality elevated troponin Condition on Discharge: Good Activity: Resume your previous activity Non-emergency contact: Primary Care Provider Call non-emergency contact if: you have any medication questions, your symptoms worsen, your pain is not controlled, your pain is worsening, your pain is unusual for you, your pain is concerning for you and you have a fever Follow-up/Referrals: Suad De León, [Primary Care Provider] - (Date & Time 11/23/2020 12:00 PM Provider Pasha Carmona MD Department Internal Medicine [facility] PLEASE NOTE THAT THIS IS A TELEPHONE APPOINTMENT. YOUR PROVIDER WILL CALL YOU AT THE APPOINTMENT TIME. IF YOU HAVE ANY QUESTIONS, PLEASE CALL ) Diet: Carb Consistent or DM2 Addtl Attending Provider Instructions: Please take all medications as instructed below. Please note, your Metformin has been discontinued as your kidney function prohibits this use. This will need to be further discussed with your primary care doctor on follow-up in case a replacement medication is needed or other medications for diabetes need to be adjusted. Please keep a close eye on your blood sugars during this time and notify primary care of any abnormal patterns. A repeat basic metabolic panel, nonfasting blood work, is recommended at time of follow-up with primary care doctor as you were seen to have multiple electrolyte abnormalities during his hospitalization. It is recommended that you check your blood sugar frequently during the next week. If you notice frequent low blood sugars (less than 60), please either contact your primary care provider, the discharging [facility] hospitalist, or empirically reduce your insulin 70/30 dosage to 25 units twice daily from the current 55 units in the morning 25 units in the evening. Then, please send a message or ensure discussion with your primary care provider regarding any changes. It is recommended that you follow-up with your primary care doctor at the date and time above to ensure you are still doing well after hospital discharge. Please observe CDC and [facility] guidelines for home isolation after Covid infection which states you should stay on isolation for total of 10 days since symptom onset, and only come off isolation if you are fever free for 3 days and your symptoms have improved. For more information regarding home isolation please visit the website below. https://www.cdc.gov/coronavirus/2019-ncov/hcp/duration-isolation.html It was a pleasure taking care of you! Please call if you have any questions or problems. You can reach a [facility] hospitalist on duty at [facility] 24 hours a day by calling [phone]. Take care of yourself. Denise Sanchez DO [facility] Hospitalist Pending Studies at Discharge: No Stand-Alone Forms: My [facility] Medications and DC Order Prescriptions: Continued duloxetine 60 mg Capsule,Delayed Release(Dr/Ec) 60 mg PO QAM RF: 0 folic acid 1 mg Tablet 1 mg PO HS RF: 0 sumatriptan succinate 25 mg Tablet 50 mg PO DIRECTED PRN (Reason: Migraine Headache) RF: 0 gabapentin 300 mg capsule 300 mg PO TID RF: 0 albuterol sulfate [Ventolin HFA] 90 mcg/actuation Hfa Aerosol Inhaler 2 puff INHALATION Q4H PRN (Reason: Wheezing) RF: 0 ondansetron 4 mg tablet,disintegrating 4 mg translingual Q8H PRN (Reason: Nausea) RF: 0 nitroglycerin [Nitrostat] 0.4 mg tablet, sublingual 0.4 mg sublingual DIRECTED PRN (Reason: Chest Pain) RF: 0 fluticasone propion-salmeterol [Advair Diskus] 500-50 mcg/dose Blister With Device 1 inh INHALATION BID RF: 0 spironolactone [Aldactone] 25 mg Tablet 25 mg PO QAM RF: 0 metoprolol succinate 100 mg tablet extended release 24 hr 100 mg PO BID RF: 0 mirtazapine 45 mg Tablet 45 mg PO HS RF: 0 ropinirole 0.5 mg Tablet 0.5 mg PO HS RF: 0 atorvastatin [Lipitor] 40 mg tablet 40 mg PO QAM RF: 0 isosorbide mononitrate 30 mg Tablet Extended Release 24 Hr 30 mg PO QAM RF: 0 pantoprazole 40 mg Tablet,Delayed Release (Dr/Ec) 40 mg PO BID RF: 0 aspirin 81 mg Tablet,Chewable 81 mg PO DAILY RF: 0 Januvia 100 mg Tablet 100 mg PO DAILY RF: 0 Lactobacillus acidoph-L.bulgar [Floranex] 1 million cell Tablet 1 tab PO TID RF: 0 clopidogrel 75 mg Tablet 75 mg PO QAM Qty: 30 RF: 2 verapamil 40 mg Tablet 40 mg PO QID RF: 0 albuterol sulfate 2.5 mg /3 mL (0.083 %) solution for nebulization 3 ml Inhalation Q4H PRN (Reason: Wheezing) RF: 0 diphenoxylate-atropine [Lomotil] 2.5-0.025 mg Tablet 1 tab PO QID PRN (Reason: Diarrhea) RF: 0 torsemide 10 mg Tablet See Rx Instructions .ROUTE .COMPLEX RF: 0 budesonide 0.5 mg/2 mL suspension for nebulization 0.5 mg inhalation Q12 RF: 0 insulin asp prt-insulin aspart [Novolog Mix 70-30FlexPen U-100] 100 unit/mL (70-30) insulin pen 55 unit SUBCUT DAILYBB RF: 0 insulin asp prt-insulin aspart [Novolog Mix 70-30FlexPen U-100] 100 unit/mL (70-30) insulin pen 25 unit SUBCUT DAILYBD RF: 0 Discontinued metformin [Glucophage] 500 mg Tablet 500 mg PO BIDM Qty: 0 RF: 0 Admission Data Admit Date/Time: 11/13/20 19:00 Attending Provider: Denise Sanchez Admit Provider: Anastacia Be I. Primary Care Provider: Suad De León Other Providers: Mariana Emmanuel
[2020-11-19] MEDS: INSULIN ASPART 100 UNITS/ML 3 ML PEN SC SCH (09:38)
[2020-11-19 11:32] VITALS: BP 116/65; PULSE 68
== END 2020-11-19 12:45 | disposition home or self-care (01) | DRG 177 ==
LOC: ED 14:21 → EDINP 19:00 → SUATTDRO 19:00 → 2S 11-14 14:14 → 3E 11-16 20:47

== ENCOUNTER 2020-12-22 19:58 | Inpatient (IN) ==
[2020-12-22] MEDS ORDERED: ALBUT/IPRATROP 3MG/0.5MG NEB 3 ML VIAL NEB STA (21:13)
[2020-12-22 21:21] LABS: Basophils # (auto) 0.02 K/uL (0-0.2); Basophils % (auto) 0.2 %; Eosinophils # (auto) 0.12 K/uL (0-0.5); Hematocrit (blood only) 31.6 % (37-47); Hemoglobin 9.2 g/dL (12.0-16.0); Immature Granulocytes # (auto) 0.02 K/uL (0.00-0.02); Immature Granulocytes % (auto) 0.2 %; Lymphocytes % (auto) 5.6 %; Mean Corpuscular Hemoglobin 24.1 pg (25-34); Mean Corpuscular Hgb Conc 29.1 g/dL (32-36); Mean Corpuscular Volume 82.7 fL (80-100); Mean Platelet Volume 9.6 fL (7.4-10.4); Monocytes # (auto) 0.99 K/uL (0.11-0.59); Monocytes % (auto) 7.9 %; Neutrophils # (auto) 10.73 K/uL (1.4-6.5); Neutrophils % (auto) 85.1 %; Nucleated RBC # (auto) 0.03 K/uL (0-0); Nucleated RBC % (auto) 0.2 %; Platelet Count 417 K/uL (130-400); RDW Coefficient of Variation 21.4 % (11.5-14.5); RDW Standard Deviation 64.7 fL (36.4-46.3); Red Blood Count 3.82 M/uL (4.2-5.4); White Blood Count 12.58 K/uL (4.8-10.8)
[2020-12-22 21:29] LABS: iSTAT Creatinine 1.7 mg/dl (0.6-1.3); iSTAT Hemoglobin 10.5 g/dl (12.0-16.0); iSTAT Ionized Calcium 1.14 mmol/l (1.12-1.32); iSTAT Potassium 4.5 mmol/L (3.3-5.0)
[2020-12-22 21:36] LABS: Alanine Aminotransferase 56 U/L (12-78); Albumin Level 3.4 gm/dl (3.4-5.0); Aspartate Aminotransferase 28 U/L (15-37); BUN Creatinine Ratio 21.5 (10-20); Blood Urea Nitrogen 36 mg/dl (7-18); Calcium 8.8 mg/dl (8.5-10.1); Carbon Dioxide 24 mmol/L (21-32); Chloride 110 mmol/L (98-107); Est GFR (African American) 37.6; Est GFR (Non-African American) 32.5; Glucose 90 mg/dl (70-99); Magnesium 1.8 mg/dl (1.8-2.4); Potassium 4.5 mmol/L (3.5-5.1); Sodium 142 mmol/L (136-145)
[2020-12-22 21:49] LABS: Anisocytosis Present
[2020-12-22 21:50] LABS: Alkaline Phosphatase 211 U/L (45-117); Bilirubin,Total 0.7 mg/dl (0.2-1); Globulin 3.4 gm/dl (2.5-4.0); NT Pro B Type Natriuretic Pept 6360 pg/ml (0-900); Total Protein 6.8 gm/dl (6.4-8.2)
[2020-12-22 22:11] LABS: Lipase 269 U/L (73-393); T4 Free Thyroxine 0.95 ng/dl (0.8-1.6)
--- NOTE | 2020-12-22 22:17 | Emergency Department Note ---
Impression & Plan Breathlessness, Respiratory failure, Abdominal pain, Chronic foot pain, Pneumonia ED Provider Note Provider: Greyson Hilario MD DATE OF SERVICE: 12/22/2020 CHIEF COMPLAINT: Shortness of breath, right-sided back pain, foot pain, weakness HISTORY OF PRESENT ILLNESS: Patient is a 60-year-old female with a past medical history including chronic respiratory failure on home O2, chronic diastolic h eart failure, CAD status post stent, hokum, pacemaker placement, type 2 diabetes, restless leg syndrome, CKD, chronic anemia, pancreatic cyst, COVID-19 pneumonia and October of this year, as well as recent admission for chronic cholecystitis on IV antibiotics discharge last week presenting today with several complaints. Patient states of last several days she has began to feel more weak with some worsening shortness of breath and pain in the right flank to right upper quadrant. Patient continues to report right-sided foot pain previously during prior admission had some left-sided pain. Patient denies new trauma or falls to her feet. Patient states she has some diffuse pain of the bilateral legs. Does not really report sciatica type pain. Patient states she is more just achy all over and feels weak. States she been using her nebulizers at home with minimal improvement. She states continue oxygen at home without issue. REVIEW OF SYSTEMS: A total of 10 review of systems was obtained and negative except as stated above in the HPI. PAST MEDICAL HISTORY: As noted above MEDICATIONS: Reviewed home medication list SOCIAL HISTORY: Lives at home, non-smoker PHYSICAL EXAM: GENERAL: alert and oriented in no acute distress on stretcher Head: normocephalic and atraumatic EYES: No injection, discharge or icterus. NECK: Trachea midline. Supple. ENT: Mucous membranes pink and moist. LUNGS: Airway patent. No retractions. Breath sounds diminished with a few fine crackles at the bases HEART: Regular rate and rhythm. No chest wall tenderness ABDOMEN: Soft with some slight right upper quadrant tenderness but not a Hoskins sign. No rebound or peritonitis appreciated. BACK: Some slight right flank tenderness appreciated. SKIN: Acyanotic, warm, dry, without rashes EXTREMITIES: Without significant swelling of the lower extremities with some slight erythema the bilateral feet and diffuse tenderness of the bilateral lower extremities up to the thighs. NEUROLOGICAL: No focal deficits. No aphasia. No facial droop or slurred speech. EK bpm occasionally atrially paced rhythm versus normal sinus rhythm. No PVC or PAC. LVH noted without acute ST segment elevation or depression. Chronic aVL T wave inversion EKG #2: 65 bpm appears to be a normal sinus rhythm without PVC or PAC. No acute ST segment elevation with a chronic T wave inversion in aVL. 1 view chest x-ray per my interpretation with cardiomegaly and some increased interstitial markings pulmonary vascular congestion. No focal pneumonia appreciated. CONTINUOUS CARDIAC MONITORING: was ordered and showed a heart rate of 76 bpm in atrially paced sinus rhythm Patient's laboratory studies and imaging reviewed. Differential includes Infection, pulmonary, dehydration, metabolic abnormality, hypo/hyperglycemia, electrolyte disturbance, anemia, hypoxia, cardiac sources, intracerebral event, toxicologic, neurologic, as well as other pathologies. IMPRESSION/MEDICAL DECISION MAKING: Patient was given a DuoNeb here does not appear significantly fluid overload otherwise. Patient does not appear significantly hypoxic here initially. Blood pressure somewhat tenuous. Leukocytosis slightly increased today. Does have right lower quadrant pain. Initially considered possibly imaging the chest in the belly with contrast but renal function is somewhat prohibitive at this time as creatinine somewhat elevated today. DuoNeb had limited effect with respect to her breathing to becomes more tachypneic while here. Liver function actually. Somewhat improved and troponin detectable is lower than previous. proBNP is elevated. Procalcitonin 1.17. Negative Covid today. Lactate not elevated. Chest x-ray difficult interpret given cardiomegaly and chronic interstitial changes but question of small amount of fluid overload. Decided to proceed with CT abdomen pelvis without contrast to look for possible intra-abdominal issue although does not seem obstructive this LFTs and bilirubin not significantly abnormal. Question possible infective source. CT report as below questions possible right basilar infiltrate (right lower lobe pneumonia) and small effusion as well as questioning some gallbladder inflammation. Patient with some mild tenderness in the right upper quadrant but no overlying skin changes. Could possibly represent an underlying cellulitis but again was covered her broadly with ertapenem. Believe this is likely continuation of some of her chronic cholecystitis rather than acute cholecystitis and no believe she needs an emergent surgery however did have the surgery PA present evaluate the patient. And they concur patient needs medical optimization of her other issues. Given her worsening breathing status dicsussed with the patient trial of some BiPAP to see if this would help with her breathing and work of breathing. Patient had good improvement with this and tolerated it well. Question of there is some fluid overload component. Will defer additional diuresis to the inpatient team given the OSBALDO. Patient did develop a little bit of some right upper chest discomfort reported repeat EKG was obtained without significant ischemic changes and this improved quickly on the BiPAP. UA is still pending at this time and cultures were already obtained. Foot pain appears chronic and do not believe we need new imaging here. Prior discharge summary discussed con cerns regarding additional pain medication and as such I do not provide additional narcotics particular in relation to the foot/leg pain. Patient was in agreement with the plan for admission. Hospitalist contacted. Patient blood sugar did begin to drop and was given a half amp of D50 here. Patient blood pressure improved and again her respiratory status improved significantly while on the BiPAP. DIAGNOSIS: Shortness breath, pneumonia RLL, acute on chronic hypoxic respiratory failure, weakness, abdominal pain, foot pain DISPOSITION: Hospitalist will evaluate Patient was agreeable with this plan. Critical Care I have personally spent 40 minutes of critical care time in the direct management of this patient. This includes bedside care, interpretation of diagn ostic studies, and testing, discussion with consultants, patient, and family members, and other required patient management activities. These 40 minutes is in excess of all separately billable procedures. Preliminary Findings Only See Final Report For Complete Findings CT ABDOMEN & PELVIS Without Contrast: Comparison 12/08/20. Cardiomegaly pacemaker/defibrillator in the right ventricle, as before. New mild right basilar infiltrate and mild pleural effusion. 2 new plastic biliary stents. The tip of the more proximal stent appears to extend slightly beyond the anterior wall of the third portion of the duodenum. Intraluminal position cannot be confirmed. No adjacent fluid collection or pne umoperitoneum. New mild pneumobilia. Contracted gallbladder with possible gallstones and mild intraluminal air. Mild adjacent stranding which could indicate cholecystitis in the appropriate clinical setting. Consider correlation with ultrasound or HIDA scan. 2.5 cm cystic lesion in the uncinate process of the pancreas, as before. Persistent dilated right renal pelvis without associated hydroureter which could indicate partial UPJ obstruction. No left hydronephrosis. Atrophic kidneys. No abdominal aortic aneurysm. No significant bowel dilatation. A normal appearing appendix is not identified. No evidence to suggest acute appendicitis. Mild colonic diverticulosis. No CT evidence for diverticulitis. Ventral abdominal wall hernia containing loop of small bowel, as before. No evidence for obstruction. Increasing diffuse subcutaneous stranding which may be worsening mesenteric panniculitis or cellulitis. Radiologist: Berto Ness M.D. Past Med/Surg History Medical History (Updated 12/23/20 @ 00:33 by rGeyson Hilario M.D.) Anxiety Arthritis Asthma Cardiac defibrillator in place 2014 CHF (congestive heart failure) CKD (chronic kidney disease), stage III COPD (chronic obstructive pulmonary disease) Depression Depression with anxiety Diabetes mellitus, type 2 Elevated troponin Elevated troponin Fatty (change of) liver, not elsewhere classified GERD (gastroesophageal reflux disease) Headache HLD (hyperlipidemia) Hydronephrosis of right kidney Hypertension Hypertrophic cardiomyopathy Hypocalcemia Hypoglycemia Hypomagnesemia CADENCE (obstructive sleep apnea) on nocturnal O2 2L Pancreatic cyst Restless leg syndrome Surgical History H/O section 1979 & 1982 H/O hernia repair 2015 History of appendectomy 1970s History of colostomy reversal bowel perf 2013 with colostomy reversed in 2014 Status post internal cardiac defibrillator procedure "2015" Status post partial resection of colon "diverticulitis 11/05/14" Family History Other Hypertrophic cardiomyopathy Stomach cancer Thyroid disorder Social History Smoking Status: Never smoker Second Hand Exposure: No; Hx Alcohol Use: No Hx Substance Use: No Preferred Language: Maltese Communication Ability: Effective Hospital Chaplain Required: No Beliefs That Will Affect Care: None marital status: Current Living Situation: Spouse and Family 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 Feels Safe at Home: Yes Assistive Devices: Oxygen - Continuous Allergies Allergies Allergy/AdvReac Type Severity Reaction Status Date / Time Penicillins Allergy Intermediate Flushing, Verified 12/22/20 21:58 Itchiness Sulfa (Sulfonamide Allergy Intermediate Swelling Verified 12/22/20 21:58 Antibiotics) doxycycline Allergy Unknown Unknown Verified 12/22/20 21:58 adhesive AdvReac Intermediate Blistering Verified 12/22/20 21:58 morphine AdvReac Hallucinati Verified 12/22/20 21:59 ng Home Meds Home Medications Medication Instructions Recorded Confirmed duloxetine 60 mg PO QAM 08/09/18 12/22/20 folic acid 1 mg PO HS 08/09/18 12/22/20 sumatriptan succinate 50 mg PO DIRECTED PRN 08/09/18 12/22/20 albuterol sulfate 3 ml INHALATION Q4H PRN 09/09/18 12/22/20 diphenoxylate-atropine [Lomotil] 1 tab PO QID PRN 12/19/18 12/22/20 albuterol sulfate [Ventolin HFA] 2 puff INHALATION Q4H PRN 06/30/19 12/22/20 fluticasone propion-salmeterol 1 inh INHALATION BID 06/30/19 12/22/20 [Advair Diskus] gabapentin 300 mg PO TID 06/30/19 12/22/20 nitroglycerin [Nitrostat] 0.4 mg SUBLINGUAL DIRECTED PRN 06/30/19 12/22/20 ondansetron 4 mg TRANSLINGUAL Q8H PRN 06/30/19 12/22/20 spironolactone [Aldactone] 25 mg PO QAM 06/30/19 12/22/20 mirtazapine 45 mg PO HS 09/25/19 12/22/20 ropinirole 0.5 mg PO HS 09/25/19 12/22/20 budesonide 0.5 mg INHALATION Q12 01/13/20 12/22/20 torsemide See Rx Instructions .ROUTE .COMPLEX 01/13/20 12/22/20 atorvastatin [Lipitor] 40 mg PO QAM 04/30/20 12/22/20 insulin asp prt-insulin aspart 25 unit SUBCUT DAILYBD 07/07/20 12/22/20 [Novolog Mix 70-30FlexPen U-100] insulin asp prt-insulin aspart 55 unit SUBCUT DAILYBB 07/07/20 12/22/20 [Novolog Mix 70-30FlexPen U-100] Januvia 100 mg PO DAILY 07/28/20 12/22/20 Lactobacillus acidoph-L.bulgar 1 tab PO TID 07/28/20 12/22/20 [Floranex] aspirin 81 mg PO DAILY 07/28/20 12/22/20 isosorbide mononitrate 30 mg PO QAM 07/28/20 12/22/20 pantoprazole 40 mg PO BID 07/28/20 12/22/20 verapamil 40 mg PO QID 11/16/20 12/22/20 metformin 500 mg PO BID 12/07/20 12/22/20 Previous Rx's Medication Instructions Recorded clopidogrel 75 mg PO QAM #30 tab 07/30/20 metoprolol succinate 50 mg PO BID #60 tab 12/13/20 Results & Data (ED) Vital Signs Vital Signs - 24 hr 12/22/20 20:08 12/22/20 20:32 12/22/20 20:33 Temperature 35.9 C L Temperature Source Temporal Artery Scan Pulse Rate 87 65 Pulse Rate [Finger] Pulse Rate from SpO2 Sensor Pulse Rhythm Respiratory Rate 18 22 Respiratory Effort / Characteristics Non-Labored Non-Labored Respiratory Depth Normal Normal Respiratory Pattern Blood Pressure 91/50 L 114/73 Blood Pressure [Right Arm] Blood Pressure Mean 63 86 Blood Pressure Mean [Right Arm] Pulse Oximetry 97 97 Oxygen Delivery Method Nasal Cannula Nasal Cannula Oxygen Flow Rate 3 3 Fraction of Inspired Oxygen Sepsis Recent Fever Within 48 Hours No Sepsis New/Unexplained Change in Mental Status No Sepsis Action Taken by Nursing No Action Required 12/22/20 21:00 12/22/20 21:07 12/22/20 21:29 Temperature Temperature Source Pulse Rate 60 87 Pulse Rate [Finger] 62 Pulse Rate from SpO2 Sensor 61 Pulse Rhythm Regular Respiratory Rate 21 18 24 Respiratory Effort / Characteristics Spontaneous Short of Breath Respiratory Depth Respiratory Pattern Blood Pressure 97/79 L Blood Pressure [Right Arm] Blood Pressure Mean 85 Blood Pressure Mean [Right Arm] Pulse Oximetry 97 97 93 Oxygen Delivery Method Nasal Cannula Nasal Cannula Oxygen Flow Rate 3 3 Fraction of Inspired Oxygen Sepsis Recent Fever Within 48 Hours Sepsis New/Unexplained Change in Mental Status Sepsis Action Taken by Nursing 12/22/20 22:01 12/22/20 22:02 12/22/20 22:15 Temperature Temperature Source Pulse Rate 74 61 63 Pulse Rate [Finger] Pulse Rate from SpO2 Sensor 63 62 69 Pulse Rhythm Respiratory Rate 24 27 H 28 H Respiratory Effort / Characteristics Respiratory Depth Respiratory Pattern Blood Pressure 92/68 L Blood Pressure [Right Arm] Blood Pressure Mean 76 Blood Pressure Mean [Right Arm] Pulse Oximetry 91 90 Oxygen Delivery Method Oxygen Flow Rate Fraction of Inspired Oxygen Sepsis Recent Fever Within 48 Hours Sepsis New/Unexplained Change in Mental Status Sepsis Action Taken by Nursing 12/22/20 22:30 12/22/20 22:32 02/03/21 22:45 Temperature Temperature Source Pulse Rate 64 66 65 Pulse Rate [Finger] Pulse Rate from SpO2 Sensor 64 67 Pulse Rhythm Respiratory Rate 21 31 H 25 H Respiratory Effort / Characteristics Respiratory Depth Respiratory Pattern Blood Pressure 103/29 L Blood Pressure [Right Arm] Blood Pressure Mean 53 Blood Pressure Mean [Right Arm] Pulse Oximetry 84 L 80 L Oxygen Delivery Method Oxygen Flow Rate Fraction of Inspired Oxygen Sepsis Recent Fever Within 48 Hours Sepsis New/Unexplained Change in Mental Status Sepsis Action Taken by Nursing 12/22/20 22:48 12/22/20 23:00 12/22/20 23:01 Temperature Temperature Source Pulse Rate 64 65 64 Pulse Rate [Finger] Pulse Rate from SpO2 Sensor 33 L 63 63 Pulse Rhythm Respiratory Rate 27 H 18 25 H Respiratory Effort / Characteristics Spontaneous Short of Breath SOB on Exertion Respiratory Depth Deep Respiratory Pattern Regular Blood Pressure 130/71 123/68 Blood Pressure [Right Arm] Blood Pressure Mean 90 86 Blood Pressure Mean [Right Arm] Pulse Oximetry 79 L 95 96 Oxygen Delivery Method Oxygen Flow Rate Fraction of Inspired Oxygen 40 Sepsis Recent Fever Within 48 Hours Sepsis New/Unexplained Change in Mental Status Sepsis Action Taken by Nursing 12/22/20 23:34 Temperature Temperature Source Pulse Rate Pulse Rate [Finger] 65 Pulse Rate from SpO2 Sensor Pulse Rhythm Respiratory Rate 19 Respiratory Effort / Characteristics Non-Labored Respiratory Depth Normal Respiratory Pattern Blood Pressure Blood Pressure [Right Arm] 139/78 Blood Pressure Mean Blood Pressure Mean [Right Arm] 98 Pulse Oximetry 99 Oxygen Delivery Method BiPAP Oxygen Flow Rate Fraction of Inspired Oxygen Sepsis Recent Fever Within 48 Hours Sepsis New/Unexplained Change in Mental Status Sepsis Action Taken by Nursing Laboratory Data Result diagrams: 12/22/20 21:01 12/22/20 21:01 Lab Results 12/22/20 12/22/20 12/22/20 Range/Units 21:01 21:01 21:01 WBC 12.58 H (4.8-10.8) K/uL RBC 3.82 L (4.2-5.4) M/uL Hgb 9.2 L (12.0-16.0) g/dL POC Hgb (12.0-16.0) g/dl Hct 31.6 L (37-47) % POC Hct (37-47) % MCV 82.7 (80-100) fL MCH 24.1 L (25-34) pg MCHC 29.1 L (32-36) g/dL RDW Std Deviation 64.7 H (36.4-46.3) fL RDW Coeff of Rolan 21.4 H (11.5-14.5) % Plt Count 417 H (130-400) K/uL MPV 9.6 (7.4-10.4) fL Immature Gran % (Auto) 0.2 % Neut % (Auto) 85.1 % Lymph % (Auto) 5.6 % [place] % (Auto) 7.9 % Eos % (Auto) 1.0 % Baso % (Auto) 0.2 % Neut # (Auto) 10.73 H (1.4-6.5) K/uL Lymph # (Auto) 0.70 L (1.2-3.4) K/uL [place] # (Auto) 0.99 H (0.11-0.59) K/uL Eos # (Auto) 0.12 (0-0.5) K/uL Baso # (Auto) 0.02 (0-0.2) K/uL Immature Gran # (Auto) 0.02 (0.00-0.02) K/uL Absolute Nucleated RBC 0.03 H (0-0) K/uL Nucleated RBC % (auto) 0.2 % Anisocytosis Present POC Sodium (135-144) mmol/L Sodium 142 (136-145) mmol/L POC Potassium (3.3-5.0) mmol/L Potassium 4.5 (3.5-5.1) mmol/L POC Chloride (101-112) mmol/L Chloride 110 H (98-107) mmol/L Carbon Dioxide 24 (21-32) mmol/L POC Total CO2 (24-31) mmol/L Anion Gap 8.0 (3-11) POC Anion Gap (16-25) mmol/L POC BUN (7-18) mg/dl BUN 36 H (7-18) mg/dl Creatinine 1.67 H (0.6-1.2) mg/dl POC Creatinine (0.6-1.3) mg/dl Est Cr Clr Drug Dosing Not Reportable Est GFR ( Amer) 37.6 Est GFR (Non-Af Amer) 32.5 BUN/Creatinine Ratio 21.5 H (10-20) Glucose 90 (70-99) mg/dl POC Glucose (70-99) mg/dl POC Glucose (other) (70-99) mg/dl Lactate 1.9 (0.4-2.0) mmol/L Calcium 8.8 (8.5-10.1) mg/dl POC Ioniz Calcium Earnestine (1.12-1.32) mmol/l Magnesium 1.8 (1.8-2.4) mg/dl Total Bilirubin 0.7 (0.2-1) mg/dl AST 28 (15-37) U/L ALT 56 (12-78) U/L Alkaline Phosphatase 211 H (45-117) U/L Troponin I 0.100 H* (0-0.045) ng/ml NT-Pro-B Natriuret Pep 6360 H (0-900) pg/ml Total Protein 6.8 (6.4-8.2) gm/dl Albumin 3.4 (3.4-5.0) gm/dl Globulin 3.4 (2.5-4.0) gm/dl Albumin/Globulin Ratio 1.0 (0.9-2) Lipase 269 (73-393) U/L Procalcitonin (0-0.5) ng/ml TSH 4.910 H (0.300-4.500) uIu/ml Free T4 0.95 (0.8-1.6) ng/dl COVID-19 Eval Order SARS-CoV-2, RNA, NAAT (NEGATIVE) 12/22/20 12/22/20 12/22/20 Range/Units 21:01 21:17 21:23 WBC (4.8-10.8) K/uL RBC (4.2-5.4) M/uL Hgb (12.0-16.0) g/dL POC Hgb 10.5 L (12.0-16.0) g/dl Hct (37-47) % POC Hct 31 L (37-47) % MCV (80-100) fL MCH (25-34) pg MCHC (32-36) g/dL RDW Std Deviation (36.4-46.3) fL RDW Coeff of Rolan (11.5-14.5) % Plt Count (130-400) K/uL MPV (7.4-10.4) fL Immature Gran % (Auto) % Neut % (Auto) % Lymph % (Auto) % [place] % (Auto) % Eos % (Auto) % Baso % (Auto) % Neut # (Auto) (1.4-6.5) K/uL Lymph # (Auto) (1.2-3.4) K/uL [place] # (Auto) (0.11-0.59) K/uL Eos # (Auto) (0-0.5) K/uL Baso # (Auto) (0-0.2) K/uL Immature Gran # (Auto) (0.00-0.02) K/uL Absolute Nucleated RBC (0-0) K/uL Nucleated RBC % (auto) % Anisocytosis POC Sodium 141 (135-144) mmol/L Sodium (136-145) mmol/L POC Potassium 4.5 (3.3-5.0) mmol/L Potassium (3.5-5.1) mmol/L POC Chloride 109 (101-112) mmol/L Chloride (98-107) mmol/L Carbon Dioxide (21-32) mmol/L POC Total CO2 24 (24-31) mmol/L Anion Gap (3-11) POC Anion Gap 13.0 L (16-25) mmol/L POC BUN 33 H (7-18) mg/dl BUN (7-18) mg/dl Creatinine (0.6-1.2) mg/dl POC Creatinine 1.7 H (0.6-1.3) mg/dl Est Cr Clr Drug Dosing Est GFR ( Amer) Est GFR (Non-Af Amer) BUN/Creatinine Ratio (10-20) Glucose (70-99) mg/dl POC Glucose (70-99) mg/dl POC Glucose (other) 90 (70-99) mg/dl Lactate (0.4-2.0) mmol/L Calcium (8.5-10.1) mg/dl POC Ioniz Calcium Earnestine 1.14 (1.12-1.32) mmol/l Magnesium (1.8-2.4) mg/dl Total Bilirubin (0.2-1) mg/dl AST (15-37) U/L ALT (12-78) U/L Alkaline Phosphatase (45-117) U/L Troponin I (0-0.045) ng/ml NT-Pro-B Natriuret Pep (0-900) pg/ml Total Protein (6.4-8.2) gm/dl Albumin (3.4-5.0) gm/dl Globulin (2.5-4.0) gm/dl Albumin/Globulin Ratio (0.9-2) Lipase (73-393) U/L Procalcitonin 0.17 (0-0.5) ng/ml TSH (0.300-4.500) uIu/ml Free T4 (0.8-1.6) ng/dl COVID-19 Eval Order Covid19 IDNow [facility] SARS-CoV-2, RNA, NAAT (NEGATIVE) 12/22/20 12/22/20 12/22/20 Range/Units 21:23 21:45 22:41 WBC (4.8-10.8) K/uL RBC (4.2-5.4) M/uL Hgb (12.0-16.0) g/dL POC Hgb (12.0-16.0) g/dl Hct (37-47) % POC Hct (37-47) % MCV (80-100) fL MCH (25-34) pg MCHC (32-36) g/dL RDW Std Deviation (36.4-46.3) fL RDW Coeff of Rolan (11.5-14.5) % Plt Count (130-400) K/uL MPV (7.4-10.4) fL Immature Gran % (Auto) % Neut % (Auto) % Lymph % (Auto) % [place] % (Auto) % Eos % (Auto) % Baso % (Auto) % Neut # (Auto) (1.4-6.5) K/uL Lymph # (Auto) (1.2-3.4) K/uL [place] # (Auto) (0.11-0.59) K/uL Eos # (Auto) (0-0.5) K/uL Baso # (Auto) (0-0.2) K/uL Immature Gran # (Auto) (0.00-0.02) K/uL Absolute Nucleated RBC (0-0) K/uL Nucleated RBC % (auto) % Anisocytosis POC Sodium (135-144) mmol/L Sodium (136-145) mmol/L POC Potassium (3.3-5.0) mmol/L Potassium (3.5-5.1) mmol/L POC Chloride (101-112) mmol/L Chloride (98-107) mmol/L Carbon Dioxide (21-32) mmol/L POC Total CO2 (24-31) mmol/L Anion Gap (3-11) POC Anion Gap (16-25) mmol/L POC BUN (7-18) mg/dl BUN (7-18) mg/dl Creatinine (0.6-1.2) mg/dl POC Creatinine (0.6-1.3) mg/dl Est Cr Clr Drug Dosing Est GFR ( Amer) Est GFR (Non-Af Amer) BUN/Creatinine Ratio (10-20) Glucose (70-99) mg/dl POC Glucose 65 L* (70-99) mg/dl POC Glucose (other) (70-99) mg/dl Lactate (0.4-2.0) mmol/L Calcium (8.5-10.1) mg/dl POC Ioniz Calcium Earnestine (1.12-1.32) mmol/l Magnesium (1.8-2.4) mg/dl Total Bilirubin (0.2-1) mg/dl AST (15-37) U/L ALT (12-78) U/L Alkaline Phosphatase (45-117) U/L Troponin I (0-0.045) ng/ml NT-Pro-B Natriuret Pep (0-900) pg/ml Total Protein (6.4-8.2) gm/dl Albumin (3.4-5.0) gm/dl Globulin (2.5-4.0) gm/dl Albumin/Globulin Ratio (0.9-2) Lipase Cancelled (73-393) U/L Procalcitonin (0-0.5) ng/ml TSH (0.300-4.500) uIu/ml Free T4 (0.8-1.6) ng/dl COVID-19 Eval Order SARS-CoV-2, RNA, NAAT NEGATIVE (NEGATIVE) 12/22/20 12/23/20 12/23/20 Range/Units 22:43 00:13 00:14 WBC (4.8-10.8) K/uL RBC (4.2-5.4) M/uL Hgb (12.0-16.0) g/dL POC Hgb (12.0-16.0) g/dl Hct (37-47) % POC Hct (37-47) % MCV (80-100) fL MCH (25-34) pg MCHC (32-36) g/dL RDW Std Deviation (36.4-46.3) fL RDW Coeff of Rolan (11.5-14.5) % Plt Count (130-400) K/uL MPV (7.4-10.4) fL Immature Gran % (Auto) % Neut % (Auto) % Lymph % (Auto) % [place] % (Auto) % Eos % (Auto) % Baso % (Auto) % Neut # (Auto) (1.4-6.5) K/uL Lymph # (Auto) (1.2-3.4) K/uL [place] # (Auto) (0.11-0.59) K/uL Eos # (Auto) (0-0.5) K/uL Baso # (Auto) (0-0.2) K/uL Immature Gran # (Auto) (0.00-0.02) K/uL Absolute Nucleated RBC (0-0) K/uL Nucleated RBC % (auto) % Anisocytosis POC Sodium (135-144) mmol/L Sodium (136-145) mmol/L POC Potassium (3.3-5.0) mmol/L Potassium (3.5-5.1) mmol/L POC Chloride (101-112) mmol/L Chloride (98-107) mmol/L Carbon Dioxide (21-32) mmol/L POC Total CO2 (24-31) mmol/L Anion Gap (3-11) POC Anion Gap (16-25) mmol/L POC BUN (7-18) mg/dl BUN (7-18) mg/dl Creatinine (0.6-1.2) mg/dl POC Creatinine (0.6-1.3) mg/dl Est Cr Clr Drug Dosing Est GFR ( Amer) Est GFR (Non-Af Amer) BUN/Creatinine Ratio (10-20) Glucose (70-99) mg/dl POC Glucose 70 54 L* 56 L* (70-99) mg/dl POC Glucose (other) (70-99) mg/dl Lactate (0.4-2.0) mmol/L Calcium (8.5-10.1) mg/dl POC Ioniz Calcium Earnestine (1.12-1.32) mmol/l Magnesium (1.8-2.4) mg/dl Total Bilirubin (0.2-1) mg/dl AST (15-37) U/L ALT (12-78) U/L Alkaline Phosphatase (45-117) U/L Troponin I (0-0.045) ng/ml NT-Pro-B Natriuret Pep (0-900) pg/ml Total Protein (6.4-8.2) gm/dl Albumin (3.4-5.0) gm/dl Globulin (2.5-4.0) gm/dl Albumin/Globulin Ratio (0.9-2) Lipase (73-393) U/L Procalcitonin (0-0.5) ng/ml TSH (0.300-4.500) uIu/ml Free T4 (0.8-1.6) ng/dl COVID-19 Eval Order SARS-CoV-2, RNA, NAAT (NEGATIVE) Administered Medications Discontinued Medications Albuterol (Albut/Ipratrop 3mg/0.5mg Neb 3 Ml Vial) 3 ml NEB NOW STA Stop: 12/22/20 21:14 Last Admin: 12/22/20 21:29 Dose: 3 ml Documented by: [id number] Dextrose (Dextrose 50% 50 Ml Syringe) 25 ml IV NOW ONE Stop: 12/23/20 00:14 Last Admin: 12/23/20 00:16 Dose: 25 ml Documented by: [id number] Ertapenem (Invanz) 10 mls @ 2 mls/min IV NOW STA Stop: 12/22/20 22:51 Last Admin: 12/22/20 23:04 Dose: 2 mls/min Documented by: [id number] Discharge Plan Visit Data Chief Complaint: Shortness of Breath/Dyspnea Stated Complaint: SOB ED Provider: Greyson Hilario Discharge Problem: Breathlessness, Respiratory failure, Abdominal pain, Chronic foot pain, Pneumonia Patient Disposition: Being Evaluated by Hospitalist Forms Stand Alone Forms: [facility] Prescriptions Prescriptions: No Action duloxetine 60 mg Capsule,Delayed Release(Dr/Ec) 60 mg PO QAM RF: 0 folic acid 1 mg Tablet 1 mg PO HS RF: 0 sumatriptan succinate 25 mg Tablet 50 mg PO DIRECTED PRN (Reason: Migraine Headache) RF: 0 gabapentin 300 mg capsule 300 mg PO TID RF: 0 albuterol sulfate [Ventolin HFA] 90 mcg/actuation Hfa Aerosol Inhaler 2 puff INHALATION Q4H PRN (Reason: Wheezing) RF: 0 ondansetron 4 mg tablet,disintegrating 4 mg translingual Q8H PRN (Reason: Nausea) RF: 0 nitroglycerin [Nitrostat] 0.4 mg tablet, sublingual 0.4 mg sublingual DIRECTED PRN (Reason: Chest Pain) RF: 0 fluticasone propion-salmeterol [Advair Diskus] 500-50 mcg/dose Blister With Device 1 inh INHALATION BID RF: 0 spironolactone [Aldactone] 25 mg Tablet 25 mg PO QAM RF: 0 mirtazapine 45 mg Tablet 45 mg PO HS RF: 0 ropinirole 0.5 mg Tablet 0.5 mg PO HS RF: 0 atorvastatin [Lipitor] 40 mg tablet 40 mg PO QAM RF: 0 isosorbide mononitrate 30 mg Tablet Extended Release 24 Hr 30 mg PO QAM RF: 0 pantoprazole 40 mg Tablet,Delayed Release (Dr/Ec) 40 mg PO BID RF: 0 aspirin 81 mg Tablet,Chewable 81 mg PO DAILY RF: 0 Januvia 100 mg Tablet 100 mg PO DAILY RF: 0 Lactobacillus acidoph-L.bulgar [Floranex] 1 million cell Tablet 1 tab PO TID RF: 0 clopidogrel 75 mg Tablet 75 mg PO QAM Qty: 30 RF: 2 verapamil 40 mg Tablet 40 mg PO QID RF: 0 metformin 500 mg tablet 500 mg PO BID RF: 0 metoprolol succinate 50 mg Tablet Extended Release 24 Hr 50 mg PO BID Qty: 60 RF: 0 albuterol sulfate 2.5 mg /3 mL (0.083 %) solution for nebulization 3 ml Inhalation Q4H PRN (Reason: Wheezing) RF: 0 diphenoxylate-atropine [Lomotil] 2.5-0.025 mg Tablet 1 tab PO QID PRN (Reason: Diarrhea) RF: 0 torsemide 10 mg Tablet See Rx Instructions .ROUTE .COMPLEX RF: 0 budesonide 0.5 mg/2 mL suspension for nebulization 0.5 mg inhalation Q12 RF: 0 insulin asp prt-insulin aspart [Novolog Mix 70-30FlexPen U-100] 100 unit/mL (70-30) insulin pen 55 unit SUBCUT DAILYBB RF: 0 insulin asp prt-insulin aspart [Novolog Mix 70-30FlexPen U-100] 100 unit/mL ( 70-30) insulin pen 25 unit SUBCUT DAILYBD RF: 0 Referrals Referrals: Suad De León DO [Primary Care Provider] - Discharge Problem: Respiratory failure Qualifiers: Chronicity: acute on chronic Respiratory failure complication: hypoxia Qualified Code(s): J96.21 - Acute and chronic respiratory failure with hypoxia Abdominal pain Qualifiers: Abdominal location: right upper quadrant Qualified Code(s): R10.11 - Right upper quadrant pain Chronic foot pain Qualifiers: Laterality: unspecified laterality Qualified Code(s): M79.673 - Pain in unspecified foot Pneumonia Qualifiers: Pneumonia type: due to unspecified organism Laterality: right Lung location: lower lobe of lung Qualified Code(s): J18.9 - Pneumonia, unspecified organism
[2020-12-22] MEDS ORDERED: ERTAPENEM SODIUM 10 ML IV STA (22:47)
[2020-12-23] MEDS ORDERED: DEXTROSE 50% 50 ML SYRINGE IV ONE ×4 (00:13→09:03)
--- NOTE | 2020-12-23 00:14 | Surgery Consultation ---
Date of Consultation December 23, 2020 Assessment & Plan (1) Cholecystitis, chronic: At the present time I do not feel the patient's chronic cholecystitis is the driving factor of her admission. She has numerous other medical comorbidities that need to be stabilized prior to consideration of any surgical intervention. It is noted that her LFTs have improved since previous admission. She continues to take Plavix which cannot be discontinued as she had a drug- eluting stent placed. Is recommended the patient continue broad-spectrum antibiotics for the present time We will follow along with you during this admission but her respiratory and cardiac status needs to be optimized prior to consideration of any surgical intervention. History of Present Illness History of Present Illness Is a 60-year-old female who is known to our service. The patient was seen on December 08 of this year in the emergency department secondary to abdominal pain along with back pain and pain in her feet. At that time the patient noted that she had some significant right upper quadrant abdominal pain that has been present for several weeks but have gotten progressively worse since her presentation at that time. In the emergency department during that visit the patient had a gallbladder ultrasound that showed gallstones along with gallbladder wall thickening concerning for acute cholecystitis. Patient subsequently underwent a CT scan of the abdomen and pelvis that also revealed gallstones with distention of the gallbladder. There is no way to mention that the patient did have a cardiac cath with a drug-eluting stent placed in July 2020 and was taking Plavix which could not be discontinued. During that visit there was concern the patient had cholangitis and due to her multiple medical comorbidities including oxygen dependent COPD, congestive heart failure, coronary artery disease, hypertension, and diabetes she is not felt to be a surgical candidate at that time. She was ultimately taken for an ERCP by the [facility] merry go round attendant where she had a stent placed. Patient reported improvement of her abdominal pain following the procedure and she was ultimately discharged home with plans to have an endoscopic ultrasound performed as an outpatient. The patient presented to the emergency department tonight as over the past several days she has noted more profound weakness as well as worsening shortness of breath. In addition she reports some right upper quadrant pain that is slightly worse than before. She denies any fevers, shakes, or chills. She denies any nausea vomiting or diarrhea. She notes the pain in her right upper quadrant does not radiate. He does not note any palliative or provocative factors. Day in the emergency department patient was noted to have a white blood cell cou nt of 12.5 which was increased from her previous values. Her hemoglobin and hematocrit were 9.2 and 31.6. Platelet count was 417,000. A chemistry profile showed sodium as well as potassium are within normal range. Her BUN and creatinine were 36 and 1.6 which were increased from previous values. Of note her AST and ALT were within normal range and her alkaline phosphatase was 211 all which were improved from previous levels. She was noted to have an elevated troponin at 0.1 as well as an elevated BNP at 6360. It is noted to mention that review of records does show that she appears to have a chronically elevated BNP as well as troponin. A Covid test was performed and was noted to be negative. A chest x-ray showed concern for pulmonary vascular congestion. She also underwent a CT scan of the abdomen and pelvis. She was noted to have a right basal infiltrate and pleural effusion that were new. Biliary stents were noted to be in place. Gallbladder is noted be contracted with some gallstones. Some mild adjacent stranding indicative of cholecystitis. Arrival to the emergency department she has been initiated on broad-spectrum antibiotics and placed on BiPAP and she has noted some improvement. She was not in any distress at time of my interview. Allergies Allergy/AdvReac Type Severity Reaction Status Date / Time Penicillins Allergy Intermediate Flushing, Verified 12/22/20 21:58 Itchiness Sulfa (Sulfonamide Allergy Intermediate Swelling Verified 12/22/20 21:58 Antibiotics) doxycycline Allergy Unknown Unknown Verified 12/22/20 21:58 adhesive AdvReac Intermediate Blistering Verified 12/22/20 21:58 morphine AdvReac Hallucinati Verified 12/22/20 21:59 ng Home Medications Medication Instructions Recorded Confirmed Type duloxetine 60 mg PO QAM 08/09/18 12/22/20 History folic acid 1 mg PO HS 08/09/18 12/22/20 History sumatriptan succinate 50 mg PO DIRECTED PRN 08/09/18 12/22/20 History albuterol sulfate 3 ml INHALATION Q4H PRN 09/09/18 12/22/20 History diphenoxylate-atropine [Lomotil] 1 tab PO QID PRN 12/19/18 12/22/20 History albuterol sulfate [Ventolin HFA] 2 puff INHALATION Q4H PRN 06/30/19 12/22/20 History fluticasone propion-salmeterol 1 inh INHALATION BID 06/30/19 12/22/20 History [Advair Diskus] gabapentin 300 mg PO TID 06/30/19 12/22/20 History nitroglycerin [Nitrostat] 0.4 mg SUBLINGUAL DIRECTED PRN 06/30/19 12/22/20 History ondansetron 4 mg TRANSLINGUAL Q8H PRN 06/30/19 12/22/20 History spironolactone [Aldactone] 25 mg PO QAM 06/30/19 12/22/20 History mirtazapine 45 mg PO HS 09/25/19 12/22/20 History ropinirole 0.5 mg PO HS 09/25/19 12/22/20 History budesonide 0.5 mg INHALATION Q12 01/13/20 12/22/20 History torsemide See Rx Instructions .ROUTE .COMPLEX 01/13/20 12/22/20 History atorvastatin [Lipitor] 40 mg PO QAM 04/30/20 12/22/20 History insulin asp prt-insulin aspart 25 unit SUBCUT DAILYBD 07/07/20 12/22/20 History [Novolog Mix 70-30FlexPen U-100] insulin asp prt-insulin aspart 55 unit SUBCUT DAILYBB 07/07/20 12/22/20 History [Novolog Mix 70-30FlexPen U-100] Januvia 100 mg PO DAILY 07/28/20 12/22/20 History Lactobacillus acidoph-L.bulgar 1 tab PO TID 07/28/20 12/22/20 History [Floranex] aspirin 81 mg PO DAILY 07/28/20 12/22/20 History isosorbide mononitrate 30 mg PO QAM 07/28/20 12/22/20 History pantoprazole 40 mg PO BID 07/28/20 12/22/20 History clopidogrel 75 mg PO QAM #30 tab 07/30/20 12/22/20 Rx verapamil 40 mg PO QID 11/16/20 12/22/20 History metformin 500 mg PO BID 12/07/20 12/22/20 History metoprolol succinate 50 mg PO BID #60 tab 12/13/20 12/22/20 Rx Patient History Medical History Anxiety Arthritis Asthma Cardiac defibrillator in place 2014 CHF (congestive heart failure) CKD (chronic kidney disease), stage III COPD (chronic obstructive pulmonary disease) Depression Depression with anxiety Diabetes mellitus, type 2 Elevated troponin Elevated troponin Fatty (change of) liver, not elsewhere classified GERD (gastroesophageal reflux disease) Headache HLD (hyperlipidemia) Hydronephrosis of right kidney Hypertension Hypertrophic cardiomyopathy Hypocalcemia Hypoglycemia Hypomagnesemia CADENCE (obstructive sleep apnea) on nocturnal O2 2L Pancreatic cyst Restless leg syndrome Surgical History H/O section 1979 & 1982 H/O hernia repair 2015 History of appendectomy 1970s History of colostomy reversal bowel perf 2013 with colostomy reversed in 2014 Status post internal cardiac defibrillator procedure "2014" Status post partial resection of colon "diverticulitis 11/05/14" Family History Other Hypertrophic cardiomyopathy Stomach cancer Thyroid disorder Social History Smoking Status: Never smoker Second Hand Exposure: No; Hx Alcohol Use: No Hx Substance Use: No Preferred Language: Albanian Communication Ability: Effective Manager Rfid Required: No Beliefs That Will Affect Care: None marital status: Current Living Situation: Spouse and Family 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 Feels Safe at Home: Yes Assistive Devices: Oxygen - Continuous Review of Systems Constitutional: + body aches and + weakness; no fever and no chills Eyes: no diplopia Ear, Nose, Mouth, Throat: no ear pain Respiratory: + dyspnea and + dyspnea on exertion; no cough Cardiovascular: no chest pain Gastrointestinal: + abdominal pain; no nausea, no vomiting and no diarrhea/loose stools Genitourinary: no dysuria Musculoskeletal: no back pain Integumentary: no rash Neurologic: + generalized weakness Physical Exam Constitutional: well developed and well nourished; no acute distress Eyes: eyes not dysmorphic ENMT: Ears: no hearing impairment Throat: + peritonsillar mass Unable to visualize mouth as patient was using BiPAP Neck: trachea midline Respiratory: normal respiratory effort; no respiratory distress, no labored breathing and does not use accessory muscles Respiratory status was 80 with use of BiPAP. Her breath sounds are decreased at the bases. No wheezing was noted. Cardiovascular: Rate/Rhythm: regular rate and regular rhythm Gastrointestinal (Abdomen): Abdomen is soft and rotund. Patient did have some right upper quadrant tenderness with palpation. No rebound tenderness or guarding was noted. Musculoskeletal: No calf tenderness. Skin: no rashes, warm and dry Neurologic: moves all extremities Psychiatric: A+Ox3, euthymic affect Results & Data ([facility]) Vital Signs (Past 12 Hours) Vital Signs Temp Pulse Pulse Resp BP BP Pulse Ox 12/22/20 23:34 65 19 139/78 99 12/22/20 23:01 64 25 H 96 12/22/20 23:00 65 18 123/68 95 12/22/20 22:48 64 27 H 130/71 79 L 12/22/20 22:45 65 25 H 12/22/20 22:32 66 31 H 103/29 L 80 L 12/22/20 22:30 64 21 84 L 12/22/20 22:15 63 28 H 90 12/22/20 22:02 61 27 H 91 12/22/20 22:01 74 24 92/68 L 12/22/20 21:29 62 24 93 12/22/20 21:07 87 18 97 12/22/20 21:00 60 21 97/79 L 97 12/22/20 20:33 97 12/22/20 20:32 65 22 114/73 12/22/20 20:08 35.9 C L 87 18 91/50 L 97 PG Care Time/CCT Total # of Minutes Spent Total Time Spent with Patient: Total time spent is greater than 50% in coordination of care (as documented) at patient's floor/unit and/or counseling patient: Coding Level of Care Code 86056 Inpt Consult Level 5 Diagnoses Cholecystitis, chronic K81.1
[2020-12-23] MEDS ORDERED: DEXTROSE 50% 50 ML SYRINGE IV STA ×2 (01:36→04:26)
[2020-12-23] MEDS ORDERED: D5W AND NSS 1,000 ML IV SCH (01:45)
[2020-12-23] MEDS ORDERED: NITROGLYCERIN SL 0.4 MG/TAB TAB SL PRN ×2 (02:23)
[2020-12-23] MEDS ORDERED: DIPHENOXYLATE/ATROPINE 2.5/0.025MG TAB PO PRN (02:23)
[2020-12-23] MEDS ORDERED: POLYETHYLENE (MIRALAX) 17 GM PACK PO PRN (02:23)
[2020-12-23] MEDS ORDERED: SUMAtriptan succinate 50 MG TAB PO PRN (02:23)
[2020-12-23] MEDS ORDERED: ALBUTEROL 0.083% NEBU SOLN 3 ML VIAL INH PRN (02:23)
[2020-12-23] MEDS ORDERED: ALBUTEROL HFA 8 GM INHALER INH PRN (02:23)
[2020-12-23] MEDS ORDERED: ONDANSETRON 4 MG OD TAB PO PRN (02:40)
[2020-12-23] MEDS ORDERED: ERTAPENEM CONSULT ACTIVE PRN (02:42)
--- NOTE | 2020-12-23 04:09 | History and Physical Report ---
DATE OF ADMISSION: 12/23/2020 CHIEF COMPLAINT: Shortness of breath and also right upper quadrant abdominal pain. HISTORY OF PRESENT ILLNESS: This is a 60-year-old female with past medical history significant for chronic respiratory failure due to obstructive sleep apnea, CPAP intolerance, on home oxygen 3 liters; chronic diastolic CHF, EF of 70%; CAD status post drug-eluting stent in July 2020; hypertension; HOCM; family history of sudden cardiac ; status post ICD placement; diabetes type 2, insulin requiring; restless leg syndrome; chronic kidney disease, baseline creatinine of 1.4; chronic anemia, baseline hemoglobin of 9-10; mood disorder; pancreatic cyst. The patient was here in October with COVID and since then multiple admissions. Last admission was on 12/07/2020 and discharged on 12/13/2020. At that time, she was admitted for chronic decompensated heart failure and she was also found to have cholecystitis. She is status post ERCP and stone extraction for choledocholithiasis with stent placement by GI. Post-ERCP, she had respiratory failure and was kept in ICU and also cholecystitis was treated with antibiotics as she was not deemed a surgical candidate at that time. She received 6 days of Invanz antibiotic, she did fine, and she was discharged. She lives at home with her and daughter and granddaughter, but comes because last 2-3 days again she is getting more short of breath. She is having cough with whitish phlegm since October, since her COVID. She also noted some fever and also right upper quadrant abdominal pain, which prompted her to come to the ER. In the ER, she is afebrile, hemodynamics are fine. White count is 12.5, hemoglobin 9.2. Creatinine is 1.6, baseline around 1.4, and she was having hypoglycemic episodes in the ER. Troponin 0.1, she has chronically elevated troponins. BNP was 6300 seems she has chronically elevated BNPs and SARS-CoV-2 RNA was negative. Chest x-ray is showing pulmonary congestion. CT of the abdomen and pelvis preliminary report shows new mild right basilar infiltrate and left pleural effusion, biliary stent seen. Possible cholecystitis. A 2.5 cm cystic lesion in the uncinate process of the pancreas as before. Atrophic kidneys. No CT evidence of diverticulitis. Ventral abdominal wall hernia containing loop of small bowel as before, no evidence of obstruction. Increased diffuse subcutaneous stranding, which can be worsening mesenteric panniculitis or cellulitis. Currently resting comfortably on bipap.. EKG: Normal sinus rhythm at a rate of 65, no significant change was found. ASSESSMENT AND PLAN: This is a 60-year-old female with history of sleep apnea, diastolic congestive heart failure, hypertrophic cardiomyopathy. Recently had an ERCP with biliary stent for choledocholithiasis and also medically managed for cholecystitis, presents with right upper quadrant abdominal pain and sob. Says she had some fever at home and shortness of breath. 1. Shortness of breath, possible [id number] diastolic congestive heart failure, but the patient is saturating fine on BiPAP currently and hemodynamically stable. The patient is currently n.p.o. Will continue her home diuretics for now and monitor the volume status and consult cardiology in a.m. for further recommendations as the patient is also having acute kidney injury. 2. Acute versus chronic cholecystitis, seen by surgery in the ER. Currently, no surgery planned. Empirically treat with Invanz. Follow the response. Follow the cultures. 3. Acute kidney injury. Baseline creatinine of 1.4, presently with creatinine of 1.67. Getting gentle fluids. Monitor for volume overload. Monitor for the response. 4. Hypoglycemic episode: The patient has history of diabetes, currently n.p.o. We will hold her home insulin, diabetic medications. Received dextrose in the ER. Will continue with gentle D5 normal saline at 50 mL per hour and monitor. Will just place on insulin sliding scale for now. The patient is also n.p.o. currently. Close monitor. 5.Diabetes, hold her home insulin and p.o. medications as the patient had a hypoglycemic episode Getting D5 normal saline 50 mL per hour. Monitor the blood sugars. 6. Elevated troponin, chronically elevated. Follow serial enzymes. 7. Obstructive sleep apnea, on CPAP and BiPAP at bedtime. 8. Chronic respiratory failure: Continue her home oxygen. 9. History of coronary artery disease, status post stent in July 2020. Continue her home Imdur, Plavix, aspirin, statin, and Toprol-XL. At least she needs to be on six months to one year of Plavix asnd cardiology evaluation before any surgery is planned. 10. Restless leg syndrome, on Requip. 11. History of cirrhosis. 12. History of anemia: Hemoglobin is stable at baseline. 13. Hypertrophic cardiomyopathy status post automatic implantable cardioverter defibrillator. 14. Hypertension: Continue home metoprolol, Imdur, diuretics, spironolactone, verapamil. Will monitor the blood pressure. 15. History of depression: Continue duloxetine and Remeron. 16. Deep venous thrombosis prophylaxis: Sequential compression devices for now. 17. Disposition: Closely monitor in the tele floor. Level 1 full code. Expect to discharge home and follow with family doctor and cardiology. FIDE
[2020-12-23] MEDS ORDERED: CARBOHYDRATES FOR HYPOGLYCEMIA PO PRN (04:30)
[2020-12-23] MEDS ORDERED: GLUCOSE 10 TABS/TUBE PO PRN (04:30)
[2020-12-23] MEDS ORDERED: GLUCAGON FOR INJ 1 MG VIAL SQ PRN (04:30)
[2020-12-23] MEDS ORDERED: GLUCOSE 40% GEL 15 GM TUBE PO PRN (04:30)
[2020-12-23] MEDS ORDERED: DEXTROSE 50% 50 ML SYRINGE IV PRN (04:30)
[2020-12-23] MEDS ORDERED: SODI CHLOR 2.5MEQ/ML 14.6% 77 MEQ in DEXTROSE 10% 1,000 ML IV SCH (05:45)
[2020-12-23 06:24] LABS: Basophils # (auto) 0.02 K/uL (0-0.2); Basophils % (auto) 0.2 %; Eosinophils # (auto) 0.08 K/uL (0-0.5); Eosinophils % (auto) 0.8 %; Hematocrit (blood only) 30.3 % (37-47); Hemoglobin 8.8 g/dL (12.0-16.0); Immature Granulocytes # (auto) 0.02 K/uL (0.00-0.02); Immature Granulocytes % (auto) 0.2 %; Lymphocytes # (auto) 0.83 K/uL (1.2-3.4); Lymphocytes % (auto) 7.8 %; Mean Corpuscular Hemoglobin 24.6 pg (25-34); Mean Corpuscular Volume 84.6 fL (80-100); Mean Platelet Volume 9.4 fL (7.4-10.4); Monocytes # (auto) 0.95 K/uL (0.11-0.59); Platelet Count 334 K/uL (130-400); RDW Coefficient of Variation 21.4 % (11.5-14.5); RDW Standard Deviation 66.4 fL (36.4-46.3); Red Blood Count 3.58 M/uL (4.2-5.4)
[2020-12-23 06:44] LABS: BUN Creatinine Ratio 22.3 (10-20); Calcium 8.9 mg/dl (8.5-10.1); Creatinine Clr Calc Pharmacy 31.9 ml/min; Est GFR (African American) 37.9; Est GFR (Non-African American) 32.7; Potassium 4.6 mmol/L (3.5-5.1)
[2020-12-23 06:46] LABS: Troponin I 0.1 ng/ml (0-0.045)
--- NOTE | 2020-12-23 06:50 | XRay Report ---
XR chest 1V portable HISTORY: 60 years-old Female weakness, sob acute weakness with shortness of breath COMPARISON: Chest radiograph 12/11/2020, CT abdomen pelvis 12/22/2020. TECHNIQUE: Portable AP view of the chest FINDINGS: Cardiomegaly. Right subclavian pacer/AICD. Right hemidiaphragmatic elevation. No pneumothorax. Trace right pleural effusion with mild right lung base opacities. Pulmonary vascular congestion. Degenerati ve changes of the shoulders and spine. IMPRESSION: 1. Cardiomegaly with pulmonary vascular congestion. 2. Trace right pleural effusion with right lung base opacities suspicious for pneumonia versus aspira tion pneumonitis. ACT 112: Negative or not required by law. The above report was generated using voice recognition software. It may contain grammatical, syntax o r spelling errors. Electronically signed by: Vidal Jay M.D. 12/23/2020 6:49 AM
[2020-12-23 06:56] LABS: Anisocytosis Present
[2020-12-23] MEDS: BUDESONIDE 0.5 MG/2 ML VIAL (PULMICORT) INH SCH ×2 (07:16→19:14)
[2020-12-23] MEDS ORDERED: INSULIN ASPART 100 UNITS/ML 3 ML PEN SC SCH (07:30)
--- NOTE | 2020-12-23 08:25 | CT Scan Report ---
ABDOMEN AND PELVIS CT WITHOUT CONTRAST CT DOSE: 764.10 mGy.cm HISTORY: Acute weakness with right upper quadrant abdominal pain weakness, RUQ pain, hx gallbladder infection/stent TECHNIQUE: Multiaxial CT images of the abdomen and pelvis were performed without contrast. A dose lo wering technique was utilized adhering to the principles of ALARA. COMPARISON STUDY: CT abdomen pelvis 12/08/2020, 02/07/2017. rFINDINGS: Cardiomegaly with partially imaged pacer leads. Small right pleural effusion with asymmetr ic right lung base groundglass and consolidative opacities. Unchanged 5 mm solid pulmonary nodule of the basal left lower lobe. No pneumatosis or pneumoperitoneum. Study is limited without the use of co ntrast. Spleen is mildly enlarged, 13.4 cm. There is suggestion of mild hepatic steatosis. Unremarkable adren al glands. Unchanged 2.5 cm cystic lesion of the pancreatic head is unchanged dating back to 2016 sug gestive of a probable sidebranch IPMN. Mildly contracted gallbladder with color wall thickening and p ericholecystic fluid/edema. Mild intrahepatic and extrahepatic pneumobilia. No cholelithiasis or chol edocholithiasis identified. Interval placement of 2 stents within the common bile duct. One of the st ents terminates within the distal aspect of the third portion of the duodenum. The more proximal sten t distal tip either 10th of the wall or may partially extend outside the lumen of the third portion o f the duodenum on image 165 series 3. No adjacent inflammatory stranding or bowel wall thickening. Moderate right-sided hydronephrosis has decreased from comparison. There is decreased dilation of the right renal pelvis. Cortical thinning of the kidneys. No urolith. Unremarkable uterus and urinary bl adder. Calcified plaque the abdominal aorta. No aneurysm. No bowel obstruction or bowel wall thickeni ng. Postoperative changes of partial resection of the sigmoid with colocolonic anastomosis. Colonic d iverticulosis. The appendix is not visualized. Several ventral abdominal wall hernias are redemonstra palak including a few which contains nonobstructed loops of small bowel. Diastases recti. Body wall yolanda ma. No acute fracture. IMPRESSION: 1. Interval placement of two biliary stents which terminate within the duodenum with mild pneumobilia . The more proximal stent distal tip appears to tent the anterior duodenal wall or partially extends outside the lumen. No associated bowel wall thickening, inflammatory stranding or pneumoperitoneum. 2. Partial distention of the gallbladder with wall thickening and pericholecystic edema/fluid. Correl ate clinically to exclude acute cholecystitis. 3. No bowel obstruction or bowel wall thickening. 4. Mild right-sided hydronephrosis has decreased from comparison. 5. Several ventral abdominal wall hernias are again noted containing fat and nonobstructed loops of s mall bowel. 6. Small right pleural effusion with right lung base opacities suspicious for pneumonia versus aspira tion pneumonitis. 7. Additional findings as above. ACT 112: Negative or not required by law. The above report was generated using voice recognition software. It may contain grammatical, syntax o r spelling errors. Electronically signed by: Vidal Jay M.D. 12/23/2020 8:24 AM
--- NOTE | 2020-12-23 08:53 | Ultrasound Report ---
BILATERAL LOWER EXTREMITY VENOUS DOPPLER HISTORY: Acute pain and swelling of the lower extremities dvt? lower extremity edema r>l COMPARISON STUDY: DVT study 12/08/2020 FINDINGS: There is normal compressibility, flow, and augmentation within the bilateral lower extremit y deep venous systems. IMPRESSION: No DVT within the right or left lower extremity. ACT 112: Negative or not required by law. Electronically signed by: Vidal Jay M.D. 12/23/2020 8:52 AM
[2020-12-23] MEDS ORDERED: PANTOprazole 40 MG TAB PO SCH (09:00)
[2020-12-23] MEDS ORDERED: FUROSEMIDE 40 MG in SYRINGE 0 ML IV ONE (09:15)
[2020-12-23] MEDS: VERAPAMIL HCL 40 MG TAB PO SCH ×4 (09:20→20:55)
[2020-12-23] MEDS: SPIRONOLACTONE 25 MG TAB PO SCH (09:20)
[2020-12-23] MEDS: TORSEMIDE 10 MG TAB PO SCH (09:20)
[2020-12-23 09:43] LABS: Allen Test Pos (Pos); Base Excess ABG -2.4 mEq/L (-9-1.8); HCO3 ABG 24 mmol/L (19-24); Oxygen Saturation ABG 97.8 % (90-95); PCO2 ABG 50 mmHg (35-46); PO2 ABG 110 mmHg (80-95)
[2020-12-23 09:59] LABS: Appearance Urine Clear (Clear); Bacteria Urine Automated Negative (Negative); Bilirubin Urine Negative (Negative); Blood Urine Negative (Negative); Color Urine Yellow; Glucose Urine UA Negative (Negative); Ketones Urine Negative (Negative); Leukocyte Esterase Urine Negative (Negative); Nitrite Urine Negative (Negative); Protein Urine 1+ (Negative); RBC Urine Automated 0-4 /hpf (0-4); Specific Gravity Urine 1.018 (1.000-1.030); Urobilinogen Urine Negative (Negative)
[2020-12-23] MEDS: ATORVASTATIN 40 MG TAB PO SCH ×2 (10:06→14:27)
[2020-12-23] MEDS: ASPIRIN 81 MG ECTAB PO SCH ×2 (10:06→14:26)
[2020-12-23] MEDS: ISOSORBIDE MONO EXTENDED REL 30 MG TABCR PO SCH ×2 (10:06→14:27)
[2020-12-23] MEDS: DULoxetine HCL 60 MG CAP PO SCH ×2 (10:06→14:27)
[2020-12-23] MEDS: ADVANCED PROBIOTIC 1250 MG CAPSULE PO SCH ×4 (10:07→20:56)
[2020-12-23] MEDS: CLOPIDOGREL BISULFATE 75 MG TAB PO SCH (10:07)
[2020-12-23] MEDS: METOPROLOL SUCC 50MG EXT REL TAB PO SCH ×2 (10:07→20:55)
[2020-12-23] MEDS: GABAPENTIN 300 MG CAP PO SCH ×4 (10:07→20:56)
[2020-12-23] MEDS: FLUTICASONE/VILANTEROL 200/25MCG 14 PUFFS/INHALER INH SCH ×2 (10:08→14:26)
[2020-12-23 10:10] LABS: Albumin Level 3.1 gm/dl (3.4-5.0); Bilirubin Direct 0.3 mg/dl (0-0.2); Bilirubin,Total 0.6 mg/dl (0.2-1); Total Protein 6.2 gm/dl (6.4-8.2)
[2020-12-23] MEDS: FUROSEMIDE 40 MG in SYRINGE 0 ML IV SCH ×2 (10:18→20:56)
--- NOTE | 2020-12-23 10:32 | Consultation Report ---
DATE OF CONSULTATION: 12/23/2020 NEPHROLOGY CONSULTATION NOTE REASON FOR CONSULT: Acute renal failure. HISTORY OF PRESENT ILLNESS: The patient is a 60-year-old female who was admitted yesterday because of shortness of breath and right upper quadrant abdominal pain. She has a complicated recent history with recent admission. In October, she was admitted for COVID infection. In November, she was admitted for congestive heart failure and was also found to have cholecystitis. At that admission, she had ERCP and stone extraction for choledocholithiasis with stent placement. However, her overall health has not really improved in the last few weeks. She presented to the hospital with shortness of breath and was also found to have some lower extremity edema. Overnight, she got both fluid and Lasix. Creatinine was 1.6 and is still about the same this morning. Her most recent creatinine was in the low 1s. Chest x-ray is showing pulmonary congestion with cardiomegaly. The patient is currently on BiPAP because of respiratory failure and is not in real good shape to give a detailed account of her medical problems. PAST MEDICAL AND SURGICAL HISTORY: Includes chronic respiratory failure due to obstructive sleep apnea, CPAP intolerance and on home oxygen 3 liters, chronic diastolic congestive heart failure with an EF of 70%, coronary artery disease, status post drug-eluting stent in 07/2020, hypertension, status post ICD placement, type 2 diabetes requiring insulin, restless legs syndrome, chronic kidney disease, baseline creatinine which fluctuates but in the low 1s, recent COVID infection in 10/2020, hospital admission in November for congestive heart failure, cholecystitis, status post ERCP and stone extraction. ALLERGIES: Allergy list was reviewed in detail and is as per H and P. MEDICATIONS: Medication list was also reviewed and is as per the reconciliation list. The patient takes spironolactone and torsemide at home. REVIEW OF SYSTEMS: Unable to obtain as the patient is not in the mood to give a detailed account. FAMILY HISTORY: Negative for renal disease or dialysis. SOCIAL HISTORY: No smoking. She is and lives with her spouse and family. She is on oxygen at home. PHYSICAL EXAMINATION: GENERAL: Middle-aged white female who appears to be chronically ill. She is awake and alert but too weak to answer detailed questions. Slightly obese. VITAL SIGNS: Blood pressure is 119/61, 95% on BiPAP, temperature 36.5, pulse rate 66. HEENT: Mucous membranes moist. NECK: Supple. No jugular venous distention. CHEST: Bilaterally decreased breath sounds, but very poor inspiratory effort limiting the quality of the exam. CARDIOVASCULAR: S1 and S2, regular. Soft systolic murmur heard. ABDOMEN: Soft, nontender in most areas, but somewhat tender in the right upper quadrant. EXTREMITIES: Show 1+ pitting edema in the right lower extremity and trace edema in the left. DATA: Laboratory tests are reviewed. Chest x-ray shows pulmonary congestion with cardiomegaly with pleural effusion. CT abdomen and pelvis shows biliary stents, pleural effusion. Kidney was reported as improving right-sided hydronephrosis. Venous duplex was also done and was negative for DVT. This morning labs show a creatinine of 1.66, which is slightly higher than her baseline of 1.2, BUN 37. Sodium 144, potassium 4.6, chloride 112, CO2 of 27. Liver function test is pending at this time. WBC count was elevated at 12,000 yesterday, this morning is slightly better at 10,000, hemoglobin 8.8, platelet count 334. ASSESSMENT AND PLAN: A 60-year-old female with extensive comorbid disease at baseline, now admitted with shortness of breath and right upper quadrant abdominal pain. I have been consulted for acute renal failure and management of IV fluid/diuretics. Acute renal failure: The acute component is pretty minimal. Her baseline creatinine is anywhere from 1 to 1.4 and at this time, her creatinine is 1.66. She is not in volume depletion state. In fact, she is clearly in congestive heart failure and needs IV diuretics. Given very minimal acute component of renal failure, I do not think we need to do a detailed workup. In any case, obstructive uropathy is already ruled out. Most likely etiology is hemodynamic imbalance in the setting of congestive heart failure as well as possible infection. RECOMMENDATIONS: 1. Stop IV fluid. 2. Lasix 40 IV now and twice daily. 3. I would continue to diurese for now even at the expense of higher creatinine. 4. Avoid nephrotoxic antibiotics and NSAIDs. 5. As much as possible, avoid using contrast agents. 6. Daily renal panel. 7. Input/output charting.
[2020-12-23 11:21] LABS: Estimated Average Glucose 140 mg/dl; Hemoglobin A1C 6.5 % (4.5-5.6)
--- NOTE | 2020-12-23 12:03 | Cardiology Consultation ---
Date of Consultation December 23, 2020 Assessment & Plan (1) Chronic diastolic heart failure: Patient is an extremely complex 60-year-old female with issues as outlined above. Her underlying cardiac issues notable for severe hypertrophic cardiomyopathy with extremely hyperdynamic LV systolic function but poor cardiac output secondary to small left upper cavity size. She has had ongoing issues with brittle diastolic dysfunction and easily exacerbated congestive heart failure with any physical or metabolic strain.. Presents now with acute febrile illness nausea vomiting and dyspnea. I suspect component of diastolic heart failure being driven by underlying illnesses. Concern raised regarding recent acute cholangitis. Patient currently comfortable for marked pulmonary and respiratory status using BiPAP as in past. Exam not consistent with severe volume overload. Troponins chronically elevated and flat no sign to suggest acute coronary syndrome. BNP is chronically elevated by past assessments. Recommendations: Agree with diuresis today hold diuretics tomorrow pending clini vianney follow-up. Patient begun on antibiotic therapies for acute febrile illness flank pain and abdominal pain status post biliary stenting 2 weeks ago. Patient at elevated risk for surgical intervention however patient may be failing conservative management will hold Plavix now 5 months status post Xience drug-eluting stent. Continue aspirin (2) Acute right flank pain: (3) Apical variant hypertrophic cardiomyopathy: (4) Cholelithiasis with acute cholangitis with biliary obstruction: (5) Elevated troponin: (6) Acute kidney injury superimposed on chronic kidney disease: History of Present Illness Reason for Consultation: Elevated BNP, possible CHF Requesting Physician: Dr. Dallas Attending Physician: Felicity Dallas MD History of Present Illness Patient is a 60-year-old female with very complex underlying medical issues which include 1.ApicalHypertrophic nonobstructive cardiomyopathy, severe with markedly reduced LV cavity size , grade 4 brittle diastolic dysfunction 2.Genetic mutation MBCconsistent with cardiomyopathy. 3.Prophylactic pacer defibrillator [employer], model - Evera MRI XT [id number], dual chamber, September 01, 2015. 4.Labile hypertension. 5.Obesity. 6. Obstructive sleep apnea/hypoventilation, on chronic nocturnal oxygen supplementation and intermittent BiPAP 7.Chronic diastolic heart failure right greater than left with preserved ejection fraction EF hyperdynamic greater than 75% 8. Chronic anxiety 9. Chronic coronary artery disease status post drug-eluting stent to the ostial right coronary artery July 29 2020 with Xience Cheryl drug-eluting stent. Residual moderate narrowing left circumflex OM and LAD on dual antipla telet therapy 10. CKD stage III secondary to hypertensive disease clinic, chronic diastolic LV dysfunction 11. Covid infection/pneumonia 11/14/2020 12. Cholelithiasis with acute cholangitis with biliary obstruction undergoing ERCP and biliary stenting 12/09/2020 13. Chronic troponin and BNP elevation Patient presents this admission due to right-sided abdominal pain, back pain, fever, nausea and emesis. Mild respiratory distress superimposed on chronic dyspnea. No chest pains. Has had gradual worsening of symptoms over 2-days. Patient has improved slightly since hospitalization has been placed on BiPAP for respiratory support. Though patient comfortable no dyspnea currently. Able to talk while on BiPAP. Still with mild abdominal pain. No chest pains dizziness or lightheadedness. Weight is trending slightly upward at home. No edema. Has had fevers first 2 to 3 days per patient. No headaches or visual changes. Able to take medications without difficulty. Allergies Allergy/AdvReac Type Severity Reaction Status Date / Time Penicillins Allergy Intermediate Flushing, Verified 12/22/20 21:58 Itchiness Sulfa (Sulfonamide Allergy Intermediate Swelling Verified 12/22/20 21:58 Antibiotics) doxycycline Allergy Unknown Unknown Verified 12/22/20 21:58 adhesive AdvReac Intermediate Blistering Verified 12/22/20 21:58 morphine AdvReac Hallucinati Verified 12/22/20 21:59 ng Home Medications Medication Instructions Recorded Confirmed Type duloxetine 60 mg PO QAM 08/09/18 12/22/20 History folic acid 1 mg PO HS 08/09/18 12/22/20 History sumatriptan succinate 50 mg PO DIRECTED PRN 08/09/18 12/22/20 History albuterol sulfate 3 ml INHALATION Q4H PRN 09/09/18 12/22/20 History diphenoxylate-atropine [Lomotil] 1 tab PO QID PRN 12/19/18 12/22/20 History albuterol sulfate [Ventolin HFA] 2 puff INHALATION Q4H PRN 06/30/19 12/22/20 History fluticasone propion-salmeterol 1 inh INHALATION BID 06/30/19 12/22/20 History [Advair Diskus] gabapentin 300 mg PO TID 06/30/19 12/22/20 History nitroglycerin [Nitrostat] 0.4 mg SUBLINGUAL DIRECTED PRN 06/30/19 12/22/20 History ondansetron 4 mg TRANSLINGUAL Q8H PRN 06/30/19 12/22/20 History spironolactone [Aldactone] 25 mg PO QAM 06/30/19 12/22/20 History mirtazapine 45 mg PO HS 09/25/19 12/22/20 History ropinirole 0.5 mg PO HS 09/25/19 12/22/20 History budesonide 0.5 mg INHALATION Q12 01/13/20 12/22/20 History torsemide See Rx Instructions .ROUTE .COMPLEX 01/13/20 12/22/20 History atorvastatin [Lipitor] 40 mg PO QAM 04/30/20 12/22/20 History insulin asp prt-insulin aspart 25 unit SUBCUT DAILYBD 07/07/20 12/22/20 History [Novolog Mix 70-30FlexPen U-100] insulin asp prt-insulin aspart 55 unit SUBCUT DAILYBB 07/07/20 12/22/20 History [Novolog Mix 70-30FlexPen U-100] Januvia 100 mg PO DAILY 07/28/20 12/22/20 History Lactobacillus acidoph-L.bulgar 1 tab PO TID 07/28/20 12/22/20 History [Floranex] aspirin 81 mg PO DAILY 07/28/20 12/22/20 History isosorbide mononitrate 30 mg PO QAM 07/28/20 12/22/20 History pantoprazole 40 mg PO BID 07/28/20 12/22/20 History clopidogrel 75 mg PO QAM #30 tab 07/30/20 12/22/20 Rx verapamil 40 mg PO QID 11/16/20 12/22/20 History metformin 500 mg PO BID 12/07/20 12/22/20 History metoprolol succinate 50 mg PO BID #60 tab 12/13/20 12/22/20 Rx Patient History Medical History Anxiety Arthritis Asthma Cardiac defibrillator in place 2014 CHF (congestive heart failure) CKD (chronic kidney disease), stage III COPD (chronic obstructive pulmonary disease) Depression Depression with anxiety Diabetes mellitus, type 2 Elevated troponin Elevated troponin Fatty (change of) liver, not elsewhere classified GERD (gastroesophageal reflux disease) Headache HLD (hyperlipidemia) Hydronephrosis of right kidney Hypertension Hypertrophic cardiomyopathy Hypocalcemia Hypoglycemia Hypomagnesemia CADENCE (obstructive sleep apnea) on nocturnal O2 2L Pancreatic cyst Restless leg syndrome Surgical History H/O section 1979 & 1982 H/O hernia repair 2016 History of appendectomy 1970s History of colostomy reversal bowel perf 2013 with colostomy reversed in 2014 Status post internal cardiac defibrillator procedure "2015" Status post partial resection of colon "diverticulitis 11/05/14" Family History Other Hypertrophic cardiomyopathy Stomach cancer Thyroid disorder Social History Smoking Status: Never smoker Second Hand Exposure: No; Do You Dip or Chew Tobacco: No; Hx Alcohol Use: No Hx Substance Use: No Preferred Language: Khmer Communication Ability: Effective 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 Maintenance Required: No Beliefs That Will Affect Care: None marital status: Current Living Situation: Spouse and Family 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 Other Information That Helps Us Care for You: No Feels Safe at Home: Yes Safety Concerns: Feels Safe At This Time Assistive Devices: Oxygen - Continuous Review of Systems Review of Systems: All systems reviewed & are unremarkable except as noted in HPI & below Physical Exam Constitutional: WD/WN, vitals as above Eyes: PERRL, conjunctivae normal, anicteric sclerae ENMT: external ear and nose normal, oropharynx normal Neck: trachea midline, no thyromegaly Respiratory: normal respiratory effort, lungs clear to auscultation Cardiovascular: Rate/Rhythm: regular rate and regular rhythm Heart Sounds: normal S1 and normal S2; no gallop and no murmur Palpation: normal PMI Vessels: normal carotid upstroke and radial pulses present; no JVD and no carotid bruit Extremities: no edema Gastrointestinal (Abdomen): normal bowel sounds, soft, nontender, no hepatosplenomegaly Musculoskeletal: no cyanosis or clubbing, extremities motor strength 5/5 Skin: no rashes, warm and dry Neurologic: PERRL, EOMI, accommodation nl, no face palsy, no dysarthria Psychiatric: A+Ox3, euthymic affect Results & Data ([facility]) Vital Signs (Past 12 Hours) Vital Signs Temp Pulse Pulse Resp BP BP Pulse Ox 12/23/20 11:47 37.0 C 74 16 124/71 96 12/23/20 07:45 36.5 C 66 18 119/61 95 12/23/20 07:17 58 L 58 L 16 98 12/23/20 04:00 36.3 C L 64 24 131/71 99 12/23/20 03:15 36.3 C L 64 24 131/71 99 12/23/20 03:14 12/23/20 03:13 65 12/23/20 02:47 68 24 98 12/23/20 02:19 89 24 98 12/23/20 01:32 65 18 127/60 97 12/23/20 01:30 66 18 97 12/23/20 01:13 66 24 118/65 98 12/23/20 01:00 69 22 94 12/23/20 00:35 64 20 118/97 99 12/23/20 00:32 64 18 98 12/23/20 00:30 64 16 100 12/23/20 00:12 63 17 141/97 H 99 Pulse Ox 12/23/20 11:47 12/23/20 07:45 12/23/20 07:17 12/23/20 04:00 12/23/20 03:15 12/23/20 03:14 99 12/23/20 03:13 12/23/20 02:47 12/23/20 02:19 12/23/20 01:32 12/23/20 01:30 12/23/20 01:13 12/23/20 01:00 12/23/20 00:35 12/23/20 00:32 12/23/20 00:30 12/23/20 00:12 Laboratory Results Laboratory Results - last 24 hr 12/22/20 12/22/20 12/22/20 21:01 21:01 21:01 WBC 12.58 H RBC 3.82 L Hgb 9.2 L POC Hgb Hct 31.6 L POC Hct MCV 82.7 MCH 24.1 L MCHC 29.1 L RDW Std Deviation 64.7 H RDW Coeff of Rolan 21.4 H Plt Count 417 H MPV 9.6 Immature Gran % (Auto) 0.2 Neut % (Auto) 85.1 Lymph % (Auto) 5.6 Jackson % (Auto) 7.9 Eos % (Auto) 1.0 Baso % (Auto) 0.2 Neut # (Auto) 10.73 H Lymph # (Auto) 0.70 L Jackson # (Auto) 0.99 H Eos # (Auto) 0.12 Baso # (Auto) 0.02 Immature Gran # (Auto) 0.02 Absolute Nucleated RBC 0.03 H Nucleated RBC % (auto) 0.2 Anisocytosis Present ABG pH ABG pCO2 ABG pO2 ABG HCO3 ABG O2 Saturation ABG Base Excess Rambo Test Barometric Pressure Oxygen Given POC Sodium Sodium 142 POC Potassium Potassium 4.5 POC Chloride Chloride 110 H Carbon Dioxide 24 POC Total CO2 Anion Gap 8.0 POC Anion Gap POC BUN BUN 36 H Creatinine 1.67 H POC Creatinine Est Cr Clr Drug Dosing Not Reportable Est GFR ( Amer) 37.6 Est GFR (Non-Af Amer) 32.5 BUN/Creatinine Ratio 21.5 H Glucose 90 POC Glucose POC Glucose (other) Estimat Average Glucose Hemoglobin A1c Lactate 1.9 Calcium 8.8 POC Ioniz Calcium Earnestine Magnesium 1.8 Total Bilirubin 0.7 Direct Bilirubin AST 28 ALT 56 Alkaline Phosphatase 211 H Troponin I 0.100 H* NT-Pro-B Natriuret Pep 6360 H Total Protein 6.8 Albumin 3.4 Globulin 3.4 Albumin/Globulin Ratio 1.0 Lipase 269 Procalcitonin TSH 4.910 H Free T4 0.95 Urine Color Urine Appearance Urine pH Ur Specific [place] Urine Protein Urine Glucose (UA) Urine Ketones Urine Blood Urine Nitrite Urine Bilirubin Urine Urobilinogen Ur Leukocyte Esterase Urine WBC (Auto) Urine RBC (Auto) U Hyaline Cast (Auto) U Epithel Cells (Auto) Urine Bacteria (Auto) Granular Casts COVID-19 Eval Order SARS-CoV-2, RNA, NAAT 12/22/20 12/22/20 12/22/20 21:01 21:17 21:23 WBC RBC Hgb POC Hgb 10.5 L Hct POC Hct 31 L MCV MCH MCHC RDW Std Deviation RDW Coeff of Rolan Plt Count MPV Immature Gran % (Auto) Neut % (Auto) Lymph % (Auto) Jackson % (Auto) Eos % (Auto) Baso % (Auto) Neut # (Auto) Lymph # (Auto) Jackson # (Auto) Eos # (Auto) Baso # (Auto) Immature Gran # (Auto) Absolute Nucleated RBC Nucleated RBC % (auto) Anisocytosis ABG pH ABG pCO2 ABG pO2 ABG HCO3 ABG O2 Saturation ABG Base Excess Rambo Test Barometric Pressure Oxygen Given POC Sodium 141 Sodium POC Potassium 4.5 Potassium POC Chloride 109 Chloride Carbon Dioxide POC Total CO2 24 Anion Gap POC Anion Gap 13.0 L POC BUN 33 H BUN Creatinine POC Creatinine 1.7 H Est Cr Clr Drug Dosing Est GFR ( Amer) Est GFR (Non-Af Amer) BUN/Creatinine Ratio Glucose POC Glucose POC Glucose (other) 90 Estimat Average Glucose Hemoglobin A1c Lactate Calcium POC Ioniz Calcium Earnestine 1.14 Magnesium Total Bilirubin Direct Bilirubin AST ALT Alkaline Phosphatase Troponin I NT-Pro-B Natriuret Pep Total Protein Albumin Globulin Albumin/Globulin Ratio Lipase Procalcitonin 0.17 TSH Free T4 Urine Color Urine Appearance Urine pH Ur Specific [place] Urine Protein Urine Glucose (UA) Urine Ketones Urine Blood Urine Nitrite Urine Bilirubin Urine Urobilinogen Ur Leukocyte Esterase Urine WBC (Auto) Urine RBC (Auto) U Hyaline Cast (Auto) U Epithel Cells (Auto) Urine Bacteria (Auto) Granular Casts COVID-19 Eval Order Covid19 [facility] SARS-CoV-2, RNA, NAAT 12/22/20 12/22/20 12/22/20 21:23 21:45 22:41 WBC RBC Hgb POC Hgb Hct POC Hct MCV MCH MCHC RDW Std Deviation RDW Coeff of Rolan Plt Count MPV Immature Gran % (Auto) Neut % (Auto) Lymph % (Auto) Jackson % (Auto) Eos % (Auto) Baso % (Auto) Neut # (Auto) Lymph # (Auto) Jackson # (Auto) Eos # (Auto) Baso # (Auto) Immature Gran # (Auto) Absolute Nucleated RBC Nucleated RBC % (auto) Anisocytosis ABG pH ABG pCO2 ABG pO2 ABG HCO3 ABG O2 Saturation ABG Base Excess Rambo Test Barometric Pressure Oxygen Given POC Sodium Sodium POC Potassium Potassium POC Chloride Chloride Carbon Dioxide POC Total CO2 Anion Gap POC Anion Gap POC BUN BUN Creatinine POC Creatinine Est Cr Clr Drug Dosing Est GFR ( Amer) Est GFR (Non-Af Amer) BUN/Creatinine Ratio Glucose POC Glucose 65 L* POC Glucose (other) Estimat Average Glucose Hemoglobin A1c Lactate Calcium POC Ioniz Calcium Earnestine Magnesium Total Bilirubin Direct Bilirubin AST ALT Alkaline Phosphatase Troponin I NT-Pro-B Natriuret Pep Total Protein Albumin Globulin Albumin/Globulin Ratio Lipase Cancelled Procalcitonin TSH Free T4 Urine Color Urine Appearance Urine pH Ur Specific [place] Urine Protein Urine Glucose (UA) Urine Ketones Urine Blood Urine Nitrite Urine Bilirubin Urine Urobilinogen Ur Leukocyte Esterase Urine WBC (Auto) Urine RBC (Auto) U Hyaline Cast (Auto) U Epithel Cells (Auto) Urine Bacteria (Auto) Granular Casts COVID-19 Eval Order SARS-CoV-2, RNA, NAAT NEGATIVE 12/22/20 12/23/20 12/23/20 22:43 00:13 00:14 WBC RBC Hgb POC Hgb Hct POC Hct MCV MCH MCHC RDW Std Deviation RDW Coeff of Rolan Plt Count MPV Immature Gran % (Auto) Neut % (Auto) Lymph % (Auto) Jackson % (Auto) Eos % (Auto) Baso % (Auto) Neut # (Auto) Lymph # (Auto) Jackson # (Auto) Eos # (Auto) Baso # (Auto) Immature Gran # (Auto) Absolute Nucleated RBC Nucleated RBC % (auto) Anisocytosis ABG pH ABG pCO2 ABG pO2 ABG HCO3 ABG O2 Saturation ABG Base Excess Rambo Test Barometric Pressure Oxygen Given POC Sodium Sodium POC Potassium Potassium POC Chloride Chloride Carbon Dioxide POC Total CO2 Anion Gap POC Anion Gap POC BUN BUN Creatinine POC Creatinine Est Cr Clr Drug Dosing Est GFR ( Amer) Est GFR (Non-Af Amer) BUN/Creatinine Ratio Glucose POC Glucose 70 54 L* 56 L* POC Glucose (other) Estimat Average Glucose Hemoglobin A1c Lactate Calcium POC Ioniz Calcium Earnestine Magnesium Total Bilirubin Direct Bilirubin AST ALT Alkaline Phosphatase Troponin I NT-Pro-B Natriuret Pep Total Protein Albumin Globulin Albumin/Globulin Ratio Lipase Procalcitonin TSH Free T4 Urine Color Urine Appearance Urine pH Ur Specific [place] Urine Protein Urine Glucose (UA) Urine Ketones Urine Blood Urine Nitrite Urine Bilirubin Urine Urobilinogen Ur Leukocyte Esterase Urine WBC (Auto) Urine RBC (Auto) U Hyaline Cast (Auto) U Epithel Cells (Auto) Urine Bacteria (Auto) Granular Casts COVID-19 Eval Order SARS-CoV-2, RNA, NAAT 12/23/20 12/23/20 12/23/20 00:49 01:33 02:17 WBC RBC Hgb POC Hgb Hct POC Hct MCV MCH MCHC RDW Std Deviation RDW Coeff of Rolan Plt Count MPV Immature Gran % (Auto) Neut % (Auto) Lymph % (Auto) Jackson % (Auto) Eos % (Auto) Baso % (Auto) Neut # (Auto) Lymph # (Auto) Jackson # (Auto) Eos # (Auto) Baso # (Auto) Immature Gran # (Auto) Absolute Nucleated RBC Nucleated RBC % (auto) Anisocytosis ABG pH ABG pCO2 ABG pO2 ABG HCO3 ABG O2 Saturation ABG Base Excess Rambo Test Barometric Pressure Oxygen Given POC Sodium Sodium POC Potassium Potassium POC Chloride Chloride Carbon Dioxide POC Total CO2 Anion Gap POC Anion Gap POC BUN BUN Creatinine POC Creatinine Est Cr Clr Drug Dosing Est GFR ( Amer) Est GFR (Non-Af Amer) BUN/Creatinine Ratio Glucose POC Glucose 70 59 L* 175 H POC Glucose (other) Estimat Average Glucose Hemoglobin A1c Lactate Calcium POC Ioniz Calcium Earnestine Magnesium Total Bilirubin Direct Bilirubin AST ALT Alkaline Phosphatase Troponin I NT-Pro-B Natriuret Pep Total Protein Albumin Globulin Albumin/Globulin Ratio Lipase Procalcitonin TSH Free T4 Urine Color Urine Appearance Urine pH Ur Specific [place] Urine Protein Urine Glucose (UA) Urine Ketones Urine Blood Urine Nitrite Urine Bilirubin Urine Urobilinogen Ur Leukocyte Esterase Urine WBC (Auto) Urine RBC (Auto) U Hyaline Cast (Auto) U Epithel Cells (Auto) Urine Bacteria (Auto) Granular Casts COVID-19 Eval Order SARS-CoV-2, RNA, NAAT 12/23/20 12/23/20 12/23/20 02:54 04:14 04:37 WBC RBC Hgb POC Hgb Hct POC Hct MCV MCH MCHC RDW Std Deviation RDW Coeff of Rolan Plt Count MPV Immature Gran % (Auto) Neut % (Auto) Lymph % (Auto) Jackson % (Auto) Eos % (Auto) Baso % (Auto) Neut # (Auto) Lymph # (Auto) Jackson # (Auto) Eos # (Auto) Baso # (Auto) Immature Gran # (Auto) Absolute Nucleated RBC Nucleated RBC % (auto) Anisocytosis ABG pH ABG pCO2 ABG pO2 ABG HCO3 ABG O2 Saturation ABG Base Excess Rambo Test Barometric Pressure Oxygen Given POC Sodium Sodium POC Potassium Potassium POC Chloride Chloride Carbon Dioxide POC Total CO2 Anion Gap POC Anion Gap POC BUN BUN Creatinine POC Creatinine Est Cr Clr Drug Dosing Est GFR ( Amer) Est GFR (Non-Af Amer) BUN/Creatinine Ratio Glucose POC Glucose 97 63 L* 110 H POC Glucose (other) Estimat Average Glucose Hemoglobin A1c Lactate Calcium POC Ioniz Calcium Earnestine Magnesium Total Bilirubin Direct Bilirubin AST ALT Alkaline Phosphatase Troponin I NT-Pro-B Natriuret Pep Total Protein Albumin Globulin Albumin/Globulin Ratio Lipase Procalcitonin TSH Free T4 Urine Color Urine Appearance Urine pH Ur Specific [place] Urine Protein Urine Glucose (UA) Urine Ketones Urine Blood Urine Nitrite Urine Bilirubin Urine Urobilinogen Ur Leukocyte Esterase Urine WBC (Auto) Urine RBC (Auto) U Hyaline Cast (Auto) U Epithel Cells (Auto) Urine Bacteria (Auto) Granular Casts COVID-19 Eval Order SARS-CoV-2, RNA, NAAT 12/23/20 12/23/20 12/23/20 05:42 05:45 05:58 WBC 10.60 RBC 3.58 L Hgb 8.8 L POC Hgb Hct 30.3 L POC Hct MCV 84.6 MCH 24.6 L MCHC 29.0 L RDW Std Deviation 66.4 H RDW Coeff of Rolan 21.4 H Plt Count 334 MPV 9.4 Immature Gran % (Auto) 0.2 Neut % (Auto) 82.0 Lymph % (Auto) 7.8 Jackson % (Auto) 9.0 Eos % (Auto) 0.8 Baso % (Auto) 0.2 Neut # (Auto) 8.70 H Lymph # (Auto) 0.83 L Jackson # (Auto) 0.95 H Eos # (Auto) 0.08 Baso # (Auto) 0.02 Immature Gran # (Auto) 0.02 Absolute Nucleated RBC Nucleated RBC % (auto) Anisocytosis Present ABG pH ABG pCO2 ABG pO2 ABG HCO3 ABG O2 Saturation ABG Base Excess Rambo Test Barometric Pressure Oxygen Given POC Sodium Sodium 144 POC Potassium Potassium 4.6 POC Chloride Chloride 112 H Carbon Dioxide 27 POC Total CO2 Anion Gap 4.0 POC Anion Gap POC BUN BUN 37 H Creatinine 1.66 H POC Creatinine Est Cr Clr Drug Dosing 31.9 Est GFR ( Amer) 37.9 Est GFR (Non-Af Amer) 32.7 BUN/Creatinine Ratio 22.3 H Glucose 50 L* POC Glucose 62 L* POC Glucose (other) Estimat Average Glucose Hemoglobin A1c Lactate Calcium 8.9 POC Ioniz Calcium Earnestine Magnesium 2.0 Total Bilirubin Direct Bilirubin AST ALT Alkaline Phosphatase Troponin I 0.100 H* NT-Pro-B Natriuret Pep Total Protein Albumin Globulin Albumin/Globulin Ratio Lipase Procalcitonin TSH Free T4 Urine Color Urine Appearance Urine pH Ur Specific [place] Urine Protein Urine Glucose (UA) Urine Ketones Urine Blood Urine Nitrite Urine Bilirubin Urine Urobilinogen Ur Leukocyte Esterase Urine WBC (Auto) Urine RBC (Auto) U Hyaline Cast (Auto) U Epithel Cells (Auto) Urine Bacteria (Auto) Granular Casts COVID-19 Eval Order SARS-CoV-2, RNA, NAAT 12/23/20 12/23/20 12/23/20 06:06 06:53 08:06 WBC RBC Hgb POC Hgb Hct POC Hct MCV MCH MCHC RDW Std Deviation RDW Coeff of Rolan Plt Count MPV Immature Gran % (Auto) Neut % (Auto) Lymph % (Auto) Jackson % (Auto) Eos % (Auto) Baso % (Auto) Neut # (Auto) Lymph # (Auto) Jackson # (Auto) Eos # (Auto) Baso # (Auto) Immature Gran # (Auto) Absolute Nucleated RBC Nucleated RBC % (auto) Anisocytosis ABG pH ABG pCO2 ABG pO2 ABG HCO3 ABG O2 Saturation ABG Base Excess Rambo Test Barometric Pressure Oxygen Given POC Sodium Sodium POC Potassium Potassium POC Chloride Chloride Carbon Dioxide POC Total CO2 Anion Gap POC Anion Gap POC BUN BUN Creatinine POC Creatinine Est Cr Clr Drug Dosing Est GFR ( Amer) Est GFR (Non-Af Amer) BUN/Creatinine Ratio Glucose POC Glucose 83 100 H 90 POC Glucose (other) Estimat Average Glucose Hemoglobin A1c Lactate Calcium POC Ioniz Calcium Earnestine Magnesium Total Bilirubin Direct Bilirubin AST ALT Alkaline Phosphatase Troponin I NT-Pro-B Natriuret Pep Total Protein Albumin Globulin Albumin/Globulin Ratio Lipase Procalcitonin TSH Free T4 Urine Color Urine Appearance Urine pH Ur Specific [place] Urine Protein Urine Glucose (UA) Urine Ketones Urine Blood Urine Nitrite Urine Bilirubin Urine Urobilinogen Ur Leukocyte Esterase Urine WBC (Auto) Urine RBC (Auto) U Hyaline Cast (Auto) U Epithel Cells (Auto) Urine Bacteria (Auto) Granular Casts COVID-19 Eval Order SARS-CoV-2, RNA, NAAT 12/23/20 12/23/20 12/23/20 08:58 09:20 09:20 WBC RBC Hgb POC Hgb Hct POC Hct MCV MCH MCHC RDW Std Deviation RDW Coeff of Rolan Plt Count MPV Immature Gran % (Auto) Neut % (Auto) Lymph % (Auto) Jackson % (Auto) Eos % (Auto) Baso % (Auto) Neut # (Auto) Lymph # (Auto) Jackson # (Auto) Eos # (Auto) Baso # (Auto) Immature Gran # (Auto) Absolute Nucleated RBC Nucleated RBC % (auto) Anisocytosis ABG pH ABG pCO2 ABG pO2 ABG HCO3 ABG O2 Saturation ABG Base Excess Rambo Test Barometric Pressure Oxygen Given POC Sodium Sodium POC Potassium Potassium POC Chloride Chloride Carbon Dioxide POC Total CO2 Anion Gap POC Anion Gap POC BUN BUN Creatinine POC Creatinine Est Cr Clr Drug Dosing Est GFR ( Amer) Est GFR (Non-Af Amer) BUN/Creatinine Ratio Glucose POC Glucose 70 POC Glucose (other) Estimat Average Glucose 140 Hemoglobin A1c 6.5 H Lactate Calcium POC Ioniz Calcium Earnestine Magnesium Total Bilirubin 0.6 Direct Bilirubin 0.3 H AST 30 ALT 52 Alkaline Phosphatase 193 H Troponin I NT-Pro-B Natriuret Pep Total Protein 6.2 L Albumin 3.1 L Globulin Albumin/Globulin Ratio Lipase Procalcitonin TSH Free T4 Urine Color Urine Appearance Urine pH Ur Specific [place] Urine Protein Urine Glucose (UA) Urine Ketones Urine Blood Urine Nitrite Urine Bilirubin Urine Urobilinogen Ur Leukocyte Esterase Urine WBC (Auto) Urine RBC (Auto) U Hyaline Cast (Auto) U Epithel Cells (Auto) Urine Bacteria (Auto) Granular Casts COVID-19 Eval Order SARS-CoV-2, RNA, NAAT 12/23/20 12/23/20 12/23/20 09:30 09:40 10:07 WBC RBC Hgb POC Hgb Hct POC Hct MCV MCH MCHC RDW Std Deviation RDW Coeff of Rolan Plt Count MPV Immature Gran % (Auto) Neut % (Auto) Lymph % (Auto) Jackson % (Auto) Eos % (Auto) Baso % (Auto) Neut # (Auto) Lymph # (Auto) Jackson # (Auto) Eos # (Auto) Baso # (Auto) Immature Gran # (Auto) Absolute Nucleated RBC Nucleated RBC % (auto) Anisocytosis ABG pH 7.30 L ABG pCO2 50 H ABG pO2 110 H ABG HCO3 24 ABG O2 Saturation 97.8 H ABG Base Excess -2.4 Rambo Test Pos Barometric Pressure 732.0 Oxygen Given 35% FIO2 POC Sodium Sodium POC Potassium Potassium POC Chloride Chloride Carbon Dioxide POC Total CO2 Anion Gap POC Anion Gap POC BUN BUN Creatinine POC Creatinine Est Cr Clr Drug Dosing Est GFR ( Amer) Est GFR (Non-Af Amer) BUN/Creatinine Ratio Glucose POC Glucose 140 H POC Glucose (other) Estimat Average Glucose Hemoglobin A1c Lactate Calcium POC Ioniz Calcium Earnestine Magnesium Total Bilirubin Direct Bilirubin AST ALT Alkaline Phosphatase Troponin I NT-Pro-B Natriuret Pep Total Protein Albumin Globulin Albumin/Globulin Ratio Lipase Procalcitonin TSH Free T4 Urine Color Yellow Urine Appearance Clear Urine pH 5.0 Ur Specific [place] 1.018 Urine Protein 1+ H Urine Glucose (UA) Negative Urine Ketones Negative Urine Blood Negative Urine Nitrite Negative Urine Bilirubin Negative Urine Urobilinogen Negative Ur Leukocyte Esterase Negative Urine WBC (Auto) 1-5 Urine RBC (Auto) 0-4 U Hyaline Cast (Auto) 10-30 H U Epithel Cells (Auto) 10-20 H Urine Bacteria (Auto) Negative Granular Casts 1-5 H COVID-19 Eval Order SARS-CoV-2, RNA, NAAT 12/23/20 12/23/20 11:06 12:06 WBC RBC Hgb POC Hgb Hct POC Hct MCV MCH MCHC RDW Std Deviation RDW Coeff of Rolan Plt Count MPV Immature Gran % (Auto) Neut % (Auto) Lymph % (Auto) Jackson % (Auto) Eos % (Auto) Baso % (Auto) Neut # (Auto) Lymph # (Auto) Jackson # (Auto) Eos # (Auto) Baso # (Auto) Immature Gran # (Auto) Absolute Nucleated RBC Nucleated RBC % (auto) Anisocytosis ABG pH ABG pCO2 ABG pO2 ABG HCO3 ABG O2 Saturation ABG Base Excess Rambo Test Barometric Pressure Oxygen Given POC Sodium Sodium POC Potassium Potassium POC Chloride Chloride Carbon Dioxide POC Total CO2 Anion Gap POC Anion Gap POC BUN BUN Creatinine POC Creatinine Est Cr Clr Drug Dosing Est GFR ( Amer) Est GFR (Non-Af Amer) BUN/Creatinine Ratio Glucose POC Glucose 160 H 152 H POC Glucose (other) Estimat Average Glucose Hemoglobin A1c Lactate Calcium POC Ioniz Calcium Earnestine Magnesium Total Bilirubin Direct Bilirubin AST ALT Alkaline Phosphatase Troponin I NT-Pro-B Natriuret Pep Total Protein Albumin Globulin Albumin/Globulin Ratio Lipase Procalcitonin TSH Free T4 Urine Color Urine Appearance Urine pH Ur Specific [place] Urine Protein Urine Glucose (UA) Urine Ketones Urine Blood Urine Nitrite Urine Bilirubin Urine Urobilinogen Ur Leukocyte Esterase Urine WBC (Auto) Urine RBC (Auto) U Hyaline Cast (Auto) U Epithel Cells (Auto) Urine Bacteria (Auto) Granular Casts COVID-19 Eval Order SARS-CoV-2, RNA, NAAT ECG Additional Comments: Serial EKGs this admission demonstrates sinus rhythm and intermittent atrial pacing with voltage criteria for left hypertrophy and no acute ST segment changes suggest ischemia. Telemetry without arrhythmia
--- NOTE | 2020-12-23 12:24 | XRay Report ---
SINGLE VIEW CHEST CLINICAL HISTORY: Follow-up congestive heart failure. FINDINGS: An AP, portable, upright chest radiograph is compared to study dated 12/22/2020. Cardiac AICD is unchanged in position and partially obscures the right lower chest. The heart is enlarged. Pulmon almita vascular congestion has improved. Atelectasis is seen at the lung bases. No airspace consolidatio n or large pleural effusion is identified. No pneumothorax is seen. The skeletal structures are osteo penic. The bony thorax is grossly intact. IMPRESSION: 1. Cardiomegaly and AICD. Pulmonary vasculature congestion has improved from yesterday. 2. No airspace consolidation or large pleural effusion is identified. ACT 112: Negative or not required by law. Electronically signed by: Jorge Avila M.D. 12/23/2020 12:23 PM
--- NOTE | 2020-12-23 12:43 | Surgery Progress Note ---
Date of Service December 23, 2020 Assessment & Plan (1) Cholecystitis, chronic: Patient here with SOB and being managed for CHF. Had some complaints of RUQ pain on arrival Pt was here in November and deemed high risk for surgery given comorbidities, including unable to be off plavix for drug eluding stent. GI took her for an ERCP and placed biliary stents & stent in gallbladder for decompression with plans for axios stent placement as an outpatient LFTs are improved since her stay in November She is afebrile. WBC 10, currently on ertapenem From our standpoint want to avoid surgical intervention in the patient. Hope to continue plan of GI taking her for axios stent placement as outpatient. If she continues to worsen from a gallbladder standpoint could possibly consider a HIDA scan We have no plans to operate at this time. Can have a diet from our standpoint Plan of care discussed with Dr. Stevenson Admission and Anticipated Discharge Date Admission Date: December 23, 2020 Subjective Patient currently on Bipap with PPE precautions. Discussed pt with nursing. Apparently doing okay and not complaining of abdominal pain at this time. Results & Data ([facility]) Vital Signs (Past 12 Hours) Vital Signs Temp Pulse Pulse Resp BP BP Pulse Ox 12/23/20 11:47 37.0 C 74 16 124/71 96 12/23/20 07:45 36.5 C 66 18 119/61 95 12/23/20 07:17 58 L 58 L 16 98 12/23/20 04:00 36.3 C L 64 24 131/71 99 12/23/20 03:15 36.3 C L 64 24 131/71 99 12/23/20 03:14 12/23/20 03:13 65 12/23/20 02:47 68 24 98 12/23/20 02:19 89 24 98 12/23/20 01:32 65 18 127/60 97 12/23/20 01:30 66 18 97 12/23/20 01:13 66 24 118/65 98 12/23/20 01:00 69 22 94 Pulse Ox 12/23/20 11:47 12/23/20 07:45 12/23/20 07:17 12/23/20 04:00 12/23/20 03:15 12/23/20 03:14 99 12/23/20 03:13 12/23/20 02:47 12/23/20 02:19 02/04/21 01:32 12/23/20 01:30 12/23/20 01:13 12/23/20 01:00 PG Care Time/CCT Total # of Minutes Spent Total Time Spent with Patient: Total time spent is greater than 50% in coordination of care (as documented) at patient's floor/unit and/or counseling patient: Coding Level of Care Code 79988 Subseq Hosp Care Lvl 1 Diagnoses Cholecystitis, chronic K81.1
[2020-12-23 14:28] LABS: BUN Creatinine Ratio 22.6 (10-20); Creatinine Clr Calc Pharmacy 38.4 ml/min; Est GFR (African American) 47.4; Est GFR (Non-African American) 40.9; Potassium 5.1 mmol/L (3.5-5.1)
--- NOTE | 2020-12-23 18:09 | Hospitalist Progress Note ---
Date of Service December 23, 2020 Assessment & Plan (1) Acute on chronic respiratory failure with hypoxia and hypercapnia: Acute and chronic hypoxic respiratory failure at baseline on 2 L 02 via nasal canula pt Presented with increasing dyspnea. Tachypneic with resp rate of 27-31, desaturation noted as low as 79-84% on RA (pt had taken her O2 off) pt was placed on Bipap , ordered DuoNeb IV Lasix for possible acute on chronic diastolic CHF respiratory status improved , pt taken off Bipap remains on 2 L 02 via nasal canula appears to be comfortable , denies of any orthopnea , or feeling of SOB Severe Hypertrophic Cardiomyopathy: hx of HOCM . appreciate input from cardiology avoid low vol status as it may worsen out flow obstruction cont Verapamil /Beta jorge for heart rate control due to complex cardiac hx , acute illness , pt needs to be monitored in tele Possible Pneumonia /present on admission 60 yo female presenting with increasing weakness, dyspnea and R flank/R upper abd pain. CXR and CT abd/pelvis with R lung base opacities suspicious for pneumonia vs aspiration pneumonia WBC 12.58. speech eval in past indicates pt at high risk for aspiration however not noted to be aspirating at time of the speech eval. 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 : appreciate input from Nephrology IV fluid D/teofilo , given IV Lasix for concern of decompensated CHF pt had > 1 L urine output , improvement of breathing repeat BMP in evening shows improved cr 1.3 given underlying severe hypertrophic cardiomyopathy -need to prevent hypovolemia Lasix kept on hold by Cardiology repeat BMP in am Acute on chronic cholangitis : pt was recently admitted to [facility] on Nov 2020 with acute cholangitis was treated conservatively with abx cholecystectomy was not done as deemed high risk for surgery given co-morbidi ties underwent ERCP by GI s/p biliary stent placement for gall bladder decompression biliary stent was scheduled to be removed by GI end of December Ct abdomen /pelvis 1. Interval placement of two biliary stents which terminate within the duodenum with mild pneumobilia. The more proximal stent distal tip appears to tent the anterior duodenal wall or partially extends outside the lumen. No associated bowel wall thickening, inflammatory stranding or pneumoperitoneum. 2. Partial distention of the gallbladder with wall thickening and pericholecystic edema/fluid. Correlate clinically to exclude acute cholecystitis. appreciate input from GI LFTs are improved since November pt is afebrile. WBC 10, currently on ertapenem per surgical team : plan to avoid surgical intervention if clinically worsened with rt upper quadrant pain /worsening of LFT/develops fever or leukocytosis recommends HIDA scan pt been clinically improved , started on clears Hypoglycemia : possible due to poor po intake in setting of chronic cholangitis BSG improved after pt started on clear diet -has been tolerating well cont to monitor BSG closely , insulin SSI d/teofilo Full code Disposition: monitor in PCU will need PT/OT eval prior to discharge to asses deconditioning Admission and Anticipated Discharge Date Admission Date: December 23, 2020 Subjective Follow up visit for rt upper quadrant pain /cholangitis /acute on chronic hypoxemic resp failure : pt was hypoxic this Am , requiring BIpap breathing status improved , able to transition to 2 L 02 via nasal canula feels much better , able to speak in complete sentence felt nauseas earlier , no vomiting no complain of rt upper quadrant pain has been afebrile Blood sugar has been persistently low , improved after starting pt on clear liquid diet Review of Systems Review of Systems: All systems reviewed & are unremarkable except as noted in Subjective Physical Exam Constitutional: WD/WN, vitals as above Eyes: PERRL, conjunctivae normal, anicteric sclerae ENMT: external ear and nose normal, oropharynx normal Neck: trachea midline, no thyromegaly Respiratory: no respiratory distress and no cough Auscultation: + diminished lung sounds and + rales Cardiovascular: Rate/Rhythm: regular rate and regular rhythm Gastrointestinal (Abdomen): Percussion/Palpation: abdomen soft; abdomen nontender (no rt upper quad tendernss noted ) Skin: no rashes, warm and dry Neurologic: PERRL, EOMI, accommodation nl, no face palsy, no dysarthria Psychiatric: A+Ox3, euthymic affect Results & Data Results & Data ([facility]) Vital Signs (Past 12 Hours) Vital Signs Temp Pulse Pulse Resp BP Pulse Ox 12/23/20 17:08 62 12/23/20 15:10 36.5 C 63 20 122/68 96 12/23/20 14:45 18 95 12/23/20 14:30 18 98 12/23/20 11:47 37.0 C 74 16 124/71 96 12/23/20 07:45 36.5 C 66 18 119/61 95 12/23/20 07:17 58 L 58 L [address] abdomen/pelvis non contrast : IMPRESSION: 1. Interval placement of two biliary stents which terminate within the duodenum with mild pneumobilia. The more proximal stent distal tip appears to tent the anterior duodenal wall or partially extends outside the lumen. No associated bowel wall thickening, inflammatory stranding or pneumoperitoneum. 2. Partial distention of the gallbladder with wall thickening and pericholecystic edema/fluid. Correlate clinically to exclude acute cholecystitis. 3. No bowel obstruction or bowel wall thickening. 4. Mild right-sided hydronephrosis has decreased from comparison. 5. Several ventral abdominal wall hernias are again noted containing fat and nonobstructed loops of small bowel. 6. Small right pleural effusion with right lung base opacities suspicious for pneumonia versus aspiration pneumonitis.
[2020-12-23] MEDS: FOLIC ACID 1 MG TAB PO SCH (20:55)
[2020-12-23] MEDS: rOPINIRole HCL 0.25 MG TABLET PO SCH (20:56)
[2020-12-23] MEDS: ERTAPENEM SODIUM 1,000 MG in SODIUM CHLORIDE 0.9% 50 ML IV SCH (23:00)
--- NOTE | 2020-12-24 05:44 | Electrocardiogram Report ---
Test Reason : Blood Pressure : / mmHG Vent. Rate : 065 BPM Atrial Rate : 065 BPM P-R Int : 192 ms QRS Dur : 088 ms QT Int : 432 ms P-R-T Axes : 024 -01 106 degrees QTc Int : 449 ms Normal sinus rhythm Minimal voltage criteria for LVH, may be normal variant T wave abnormality, consider lateral ischemia Abnormal ECG When compared with ECG of 22-DEC-2020 20:42, Atrial pacing is no longer present Confirmed by Jaycob Melo ([id number]) on 12/24/2020 5:44:24 AM Referred By: REFERRED SELF Confirmed By:Jaycob Melo
[2020-12-24] MEDS: BUDESONIDE 0.5 MG/2 ML VIAL (PULMICORT) INH SCH ×2 (07:12→19:16)
[2020-12-24 07:25] LABS: BUN Creatinine Ratio 19.7 (10-20); Creatinine Clr Calc Pharmacy 35.1 ml/min; Est GFR (African American) 42.5; Est GFR (Non-African American) 36.7; Magnesium 1.8 mg/dl (1.8-2.4); Phosphorus 3.6 mg/dl (2.5-4.9); Potassium 4.5 mmol/L (3.5-5.1)
[2020-12-24] MEDS: VERAPAMIL HCL 40 MG TAB PO SCH ×4 (08:21→20:40)
[2020-12-24] MEDS: DULoxetine HCL 60 MG CAP PO SCH (08:22)
[2020-12-24] MEDS: GABAPENTIN 300 MG CAP PO SCH ×3 (08:22→20:40)
[2020-12-24] MEDS: ADVANCED PROBIOTIC 1250 MG CAPSULE PO SCH ×3 (08:22→20:40)
[2020-12-24] MEDS: ISOSORBIDE MONO EXTENDED REL 30 MG TABCR PO SCH (08:22)
[2020-12-24] MEDS: ASPIRIN 81 MG ECTAB PO SCH (08:22)
[2020-12-24] MEDS: ATORVASTATIN 40 MG TAB PO SCH (08:22)
[2020-12-24] MEDS: METOPROLOL SUCC 50MG EXT REL TAB PO SCH ×2 (08:23→20:40)
[2020-12-24] MEDS: FLUTICASONE/VILANTEROL 200/25MCG 14 PUFFS/INHALER INH SCH (08:23)
--- NOTE | 2020-12-24 08:42 | Electrocardiogram Report ---
Test Reason : Blood Pressure : / mmHG Vent. Rate : 060 BPM Atrial Rate : 060 BPM P-R Int : 180 ms QRS Dur : 094 ms QT Int : 454 ms P-R-T Axes : 039 -02 106 degrees QTc Int : 454 ms Sinus rhythm with intermittent atrial pacing Left ventricular hypertrophy with repolarization abnormality Abnormal ECG When compared with ECG of 09-DEC-2020 07:02, No significant change Confirmed by Jaycob Melo ([id number]) on 12/24/2020 8:42:09 AM Referred By: REFERRED SELF Confirmed By:Jaycob Melo
[2020-12-24] MEDS ORDERED: TORSEMIDE 10 MG TAB PO SCH (09:00)
--- NOTE | 2020-12-24 09:27 | Surgery Progress Note ---
Date of Service December 24, 2020 Assessment & Plan (1) Cholecystitis, chronic: Patient seen and evaluated. Still having some RUQ pain, but is overall improved She is tolerating clear liquids currently, okay to continue to advance diet as tolerates She is afebrile, and appears her respiratory status is improving No plans for surgical intervention from our standpoint at this time Would recommend follow up with GI as outpatient for Axios stent placement as patient high risk for surgery We will sign off at this time, please call with any questions/concerns Pt seen and examined with Dr. Stevenson Admission and Anticipated Discharge Date Admission Date: December 23, 2020 Subjective Patient states she is feeling okay. Has some mild abdominal pain, but is improv ed from admission. She is tolerating clear liquids and is hungry for more. Physical Exam Physical Exam: awake/alert, sitting up in bed Gastrointestinal (Abdomen): Percussion/Palpation: + abdomen tender (mild discomfort to palpation in upper abdomen) and abdomen soft Results & Data ([facility]) Vital Signs (Past 12 Hours) Vital Signs Temp Pulse Pulse Resp BP Pulse Ox 12/24/20 08:01 37.1 C 84 16 132/74 12/24/20 08:00 63 12/24/20 07:14 72 18 99 12/24/20 04:28 36.5 C 66 20 126/67 99 12/24/20 00:36 36.6 C 72 22 107/63 95 12/23/20 21:44 61 17 95 PG Care Time/CCT Total # of Minutes Spent Total Time Spent with Patient: Total time spent is greater than 50% in coordination of care (as documented) at patient's floor/unit and/or counseling patient: Coding Level of Care Code 71038 Subseq Hosp Care Lvl 1 Diagnoses Cholecystitis, chronic K81.1
--- NOTE | 2020-12-24 10:54 | Progress Notes ---
DATE: 12/24/2020 NEPHROLOGY PROGRESS NOTE SUBJECTIVE: Overnight, the patient did much better. She is no longer on BiPAP. She is now on 3 liters oxygen, which is pretty much same at home. She made about 3 liters of urine yesterday with IV Lasix. OBJECTIVE: VITAL SIGNS: Blood pressure is 132/74, pulse rate 84, temperature 37.1, 99% on 2 liter nasal cannula. CHEST: Bilaterally decreased breath sounds, poor inspiratory effort. CARDIOVASCULAR: S1, S2 regular. ABDOMEN: Soft, nontender, obese. EXTREMITIES: Show 1+ edema in the right, trace in the left. LABORATORY TEST: From this morning reviewed. Sodium 144, potassium 4.5, chloride 108, BUN 30, creatinine 1.5. Hemoglobin is 8.8. Chest x-ray yesterday showed improved pulmonary vascular congestion. ASSESSMENT AND PLAN: A 60-year-old female with extensive comorbidities at baseline, now admitted with shortness of breath and right upper quadrant abdominal pain. I have been consulted for acute renal failure and management of IV fluid/diuretics. Acute renal failure: The acute component is pretty minimal. Her baseline creatinine is anywhere from 1 to 1.4 and at this time, her creatinine is 1.5. She appears to be in much better volume status today than yesterday morning when I saw. RECOMMENDATIONS: 1. Stop IV Lasix. 2. Can restart her home diuretics probably from tomorrow. Case was discussed with Dr. Bruno in cardiology.
--- NOTE | 2020-12-24 11:10 | Cardiology Progress Note ---
Date of Service December 24, 2020 Assessment & Plan (1) Chronic diastolic heart failure: Patient is an extremely complex 60-year-old female with issues as outlined above. Her underlying cardiac issues notable for severe hypertrophic cardiomyopathy with extremely hyperdynamic LV systolic function but poor cardiac output secondary to small left upper cavity size. She has had ongoing issues with brittle diastolic dysfunction and easily exacerbated congestive heart failure with any physical or metabolic strain.. Presents now with acute febrile illness nausea vomiting and dyspnea. I suspect component of diastolic heart failure being driven by underlying illnesses. Concern raised regarding recent acute cholangitis. Patient currently comfortable for marked pulmonary and respiratory status using BiPAP as in past. Exam not consistent with severe volume overload. Troponins chronically elevated and flat no sign to suggest acute coronary syndrome. BNP is chronically elevated by past assessments. Recommendations: Acute diastolic heart failure being driven by acute illness and pain. Patient has responded promptly to IV diuretics. Would resume oral diuretics at this point continue oxygen and pulmonary supplementation. Treat underlying abdominal possible infectious process as doing We will follow (2) Acute right flank pain: (3) Apical variant hypertrophic cardiomyopathy: (4) Cholelithiasis with acute cholangitis with biliary obstruction: (5) Elevated troponin: (6) Acute kidney injury superimposed on chronic kidney disease: Admission and Anticipated Discharge Date Admission Date: December 23, 2020 Subjective Patient was seen and examined, chart, medications, telemetry reviewed. Patient much more comfortable this morning. Still mild abdominal tenderness but pain substantially improved. No fevers or chills. Breathing much more comfortable able to maintain on 2 L nasal cannula. Good diuresis yesterday Review of Systems Review of Systems: All systems reviewed & are unremarkable except as noted in HPI & below Physical Exam Constitutional: WD/WN, vitals as above + ill appearing (Chronically) and + obese Eyes: PERRL, conjunctivae normal, anicteric sclerae ENMT: external ear and nose normal, oropharynx normal Neck: trachea midline, no thyromegaly + thick neck Respiratory: Auscultation: + diminished lung sounds; no rales Cardiovascular: Rate/Rhythm: regular rate and regular rhythm Heart Sounds: normal S1 and normal S2; no gallop and no murmur Palpation: normal PMI Vessels: normal carotid upstroke and radial pulses present; no JVD and no carotid bruit Extremities: no edema Gastrointestinal (Abdomen): normal bowel sounds, soft, nontender, no hepatosplenomegaly Musculoskeletal: no cyanosis or clubbing, extremities motor strength 5/5 Skin: no rashes, warm and dry Neurologic: PERRL, EOMI, accommodation nl, no face palsy, no dysarthria Psychiatric: A+Ox3, euthymic affect Results & Data ([facility]) Vital Signs (Past 12 Hours) Vital Signs Temp Pulse Pulse Resp BP Pulse Ox 12/24/20 10:28 91 12/24/20 08:01 37.1 C 84 16 132/74 12/24/20 08:00 63 12/24/20 07:14 72 18 99 12/24/20 04:28 36.5 C 66 20 126/67 99 12/24/20 00:36 36.6 C 72 22 107/63 95 Laboratory Results Laboratory Results - last 24 hr 12/23/20 12/23/20 12/23/20 09:20 12:06 13:26 Sodium Potassium Chloride Carbon Dioxide Anion Gap BUN Creatinine Est Cr Clr Drug Dosing Est GFR ( Amer) Est GFR (Non-Af Amer) BUN/Creatinine Ratio Glucose POC Glucose 152 H 102 H Estimat Average Glucose 140 Hemoglobin A1c 6.5 H Calcium Phosphorus Magnesium 12/23/20 12/23/20 12/23/20 14:00 14:12 15:56 Sodium 144 Potassium 5.1 Chloride 112 H Carbon Dioxide 22 Anion Gap 9.0 BUN 31 H Creatinine 1.38 H Est Cr Clr Drug Dosing 38.4 Est GFR ( Amer) 47.4 Est GFR (Non-Af Amer) 40.9 BUN/Creatinine Ratio 22.6 H Glucose 82 POC Glucose 79 157 H Estimat Average Glucose Hemoglobin A1c Calcium 9.0 Phosphorus Magnesium 12/23/20 12/24/20 12/24/20 20:26 06:42 07:35 Sodium 144 Potassium 4.5 Chloride 108 H Carbon Dioxide 29 Anion Gap 6.0 BUN 30 H Creatinine 1.51 H Est Cr Clr Drug Dosing 35.1 Est GFR ( Amer) 42.5 Est GFR (Non-Af Amer) 36.7 BUN/Creatinine Ratio 19.7 Glucose 104 H POC Glucose 142 H 109 H Estimat Average Glucose Hemoglobin A1c Calcium 9.0 Phosphorus 3.6 Magnesium 1.8
[2020-12-24] MEDS: TORSEMIDE 10 MG TAB PO SCH (12:27)
--- NOTE | 2020-12-24 13:37 | Electrocardiogram Report ---
Test Reason : Blood Pressure : / mmHG Vent. Rate : 061 BPM Atrial Rate : 061 BPM P-R Int : 152 ms QRS Dur : 092 ms QT Int : 450 ms P-R-T Axes : 084 026 092 degrees QTc Int : 453 ms Atrial-paced rhythm Nonspecific T wave abnormality Abnormal ECG When compared with ECG of 22-DEC-2020 22:52, Electronic atrial pacemaker has replaced Sinus rhythm Confirmed by Juan Pablo Busby ([id number]) on 12/24/2020 1:37:01 PM Referred By: REFERRED SELF Confirmed By:Juan Pablo Busby
[2020-12-24] MEDS ORDERED: GLUCOSE 40% GEL 15 GM TUBE PO PRN (16:48)
[2020-12-24] MEDS ORDERED: DEXTROSE 50% 50 ML SYRINGE IV PRN (16:48)
[2020-12-24] MEDS ORDERED: GLUCAGON FOR INJ 1 MG VIAL SQ PRN (16:48)
[2020-12-24] MEDS ORDERED: GLUCOSE 10 TABS/TUBE PO PRN (16:48)
[2020-12-24] MEDS ORDERED: CARBOHYDRATES FOR HYPOGLYCEMIA PO PRN (16:48)
--- NOTE | 2020-12-24 16:55 | Communication Note ---
Date of Service: December 24, 2020 received communication from Barbara KAUR full consult will be in the chart recommends to continue with IV Ertapenem for chronic cholangitis . pt will benefit with elective cholecystectomy in future pt has been afebrile , no evidence of sepsis continue IV abx for now , will d/w ID regarding oral antibiotic and duration of treatment prior to discharge stable to be transferred out of PCU to Medical telemetry floor Felicity Dallas MD
--- NOTE | 2020-12-24 20:00 | Hospitalist Progress Note ---
Date of Service December 24, 2020 Assessment & Plan (1) Acute on chronic respiratory failure with hypoxia and hypercapnia: Acute and chronic hypoxic respiratory failure at baseline on 2 L 02 via nasal canula pt Presented with increasing dyspnea. Tachypneic with resp rate of 27-31, desaturation noted as low as 79-84% on RA (pt had taken her O2 off) pt was placed on Bipap , ordered DuoNeb IV Lasix for possible acute on chronic diastolic CHF respiratory status improved , pt taken off Bipap remains on 2 L 02 via nasal canula appears to be comfortable , denies of any orthopnea , or feeling of SOB Severe Hypertrophic Cardiomyopathy: hx of HOCM . appreciate input from cardiology avoid low vol status as it may worsen out flow obstruction cont Verapamil /Beta jorge for heart rate control due to complex cardiac hx , acute illness , pt needs to be monitored on tele stable to be transferred to [facility] tele floor Possible Pneumonia /present on admission 60 yo female presenting with increasing weakness, dyspnea and R flank/R upper abd pain. CXR and CT abd/pelvis with R lung base opacities suspicious for pneumonia vs aspiration pneumonia WBC 12.58. speech eval in past indicates pt at high risk for aspiration however not noted to be aspirating at time of the speech eval. 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 : appreciate input from Nephrology given IV Lasix pt had > 3 L urine output , improvement of breathing improved cr 1.3 -1.5 ( approx baseline ) given underlying torsemide and Aldactone resumed Acute on chronic cholangitis : clinically improved with IV Invanz no fever of chills /diet advanced tolerating well appreciate input from surgery pt was recently admitted to [facility] on Nov 2020 with acute cholangitis was treated conservatively with abx cholecystectomy was not done as deemed high risk for surgery given co- morbidities underwent ERCP by GI s/p biliary stent placement for gall bladder decompression biliary stent was scheduled to be removed by GI end of December ID , recommends to cont with IV invanz for now/will be changed to PO abx on discharge will need 10-14 days tx pt will eventually need cholecystectomy pt and her , are worried and concerned that her gall bladder infection will get worse after stopping antibiotic and will lead to hospital admission options of tx discussed with pt if pt continues to do well pt will need to follow up with general surgery at [facility] for elective cholecystectomy at tertiary center pt and her agreeable Hypoglycemia : resolved , BSG elevated as pt is tolerating diet possible due to poor po intake in setting of chronic cholangitis ordered insulins SSI Full code Disposition: expected to be discharged home on Sunday/Sunday if remains medically stable Admission and Anticipated Discharge Date Admission Date: December 23, 2020 Subjective Follow up visit for acute on chronic hypoxemic resp failure /rt upper quadrant pain /chronic cholangitis : pt sitting up at bedside on 2 L 02 NC her baseline feels much better on solid diet since morning , no nausea or vomiting has mild tenderness on rt upper quadrant no fever or chills no cough or SOB or orthopnea Review of Systems Review of Systems: All systems reviewed & are unremarkable except as noted in Subjective Physical Exam Constitutional: WD/WN, vitals as above Eyes: PERRL, conjunctivae normal, anicteric sclerae ENMT: external ear and nose normal, oropharynx normal Neck: trachea midline, no thyromegaly Respiratory: no respiratory distress and no cough Auscultation: + diminished lung sounds and + rales Cardiovascular: Rate/Rhythm: regular rate and regular rhythm Gastrointestinal (Abdomen): Percussion/Palpation: abdomen soft; abdomen nontender (no rt upper quad tendernss noted ) Skin: no rashes, warm and dry Neurologic: PERRL, EOMI, accommodation nl, no face palsy, no dysarthria Psychiatric: A+Ox3, euthymic affect Results & Data Results & Data ([facility]) Vital Signs (Past 12 Hours) Vital Signs Temp Pulse Pulse Resp BP Pulse Ox 12/24/20 19:50 36.5 C 69 18 129/52 L 95 12/24/20 19:18 76 16 94 12/24/20 18:00 69 12/24/20 15:41 36.5 C 61 20 129/67 95 12/24/20 12:04 36.9 C 88 16 126/68 94 12/24/20 10:28 91 12/24/20 08:01 37.1 C 84 16 132/74
[2020-12-24] MEDS: FOLIC ACID 1 MG TAB PO SCH (20:40)
[2020-12-24] MEDS: MIRTAZAPINE SOLTAB 15 MG PO SCH (20:40)
[2020-12-24] MEDS: rOPINIRole HCL 0.25 MG TABLET PO SCH (20:42)
[2020-12-24] MEDS: INSULIN ASPART 100 UNITS/ML 3 ML PEN SC SCH (20:43)
[2020-12-25] MEDS: ERTAPENEM SODIUM 1,000 MG in SODIUM CHLORIDE 0.9% 50 ML IV SCH ×2 (00:18→23:34)
[2020-12-25 04:20] LABS: Base Excess ABG 0.8 mEq/L (-9-1.8); HCO3 ABG 24 mmol/L (19-24); Hematocrit (blood only) 30.1 % (37-47); Hemoglobin 8.6 g/dL (12.0-16.0); Mean Corpuscular Hgb Conc 28.6 g/dL (32-36); Mean Corpuscular Volume 84.1 fL (80-100); Mean Platelet Volume 9.4 fL (7.4-10.4); Oxygen Saturation ABG 84.4 % (90-95); PCO2 ABG 35 mmHg (35-46); PO2 ABG 50 mmHg (80-95); Platelet Count 370 K/uL (130-400); RDW Coefficient of Variation 21.1 % (11.5-14.5); RDW Standard Deviation 66.1 fL (36.4-46.3); Red Blood Count 3.58 M/uL (4.2-5.4); White Blood Count 10.88 K/uL (4.8-10.8); pH ABG 7.47 (7.35-7.45)
[2020-12-25 04:23] LABS: Allen Test POS (Pos)
[2020-12-25 04:37] LABS: Albumin Level 3.3 gm/dl (3.4-5.0); BUN Creatinine Ratio 21.9 (10-20); Calcium 8.3 mg/dl (8.5-10.1); Creatinine Clr Calc Pharmacy 33.5 ml/min; Est GFR (African American) 40.2; Est GFR (Non-African American) 34.7; Potassium 4.4 mmol/L (3.5-5.1)
[2020-12-25 04:39] LABS: Bilirubin,Total 0.6 mg/dl (0.2-1); Globulin 3.3 gm/dl (2.5-4.0); Total Protein 6.6 gm/dl (6.4-8.2)
[2020-12-25] MEDS: BUDESONIDE 0.5 MG/2 ML VIAL (PULMICORT) INH SCH ×2 (08:13→20:05)
[2020-12-25] MEDS: INSULIN ASPART 100 UNITS/ML 3 ML PEN SC SCH ×4 (09:06→20:23)
[2020-12-25] MEDS: VERAPAMIL HCL 40 MG TAB PO SCH ×4 (09:07→20:20)
[2020-12-25] MEDS: GABAPENTIN 300 MG CAP PO SCH ×3 (09:07→20:22)
[2020-12-25] MEDS: CLOPIDOGREL BISULFATE 75 MG TAB PO SCH (09:08)
[2020-12-25] MEDS: ATORVASTATIN 40 MG TAB PO SCH (09:08)
[2020-12-25] MEDS: ADVANCED PROBIOTIC 1250 MG CAPSULE PO SCH ×3 (09:10→20:21)
[2020-12-25] MEDS: ISOSORBIDE MONO EXTENDED REL 30 MG TABCR PO SCH (09:10)
[2020-12-25] MEDS: METOPROLOL SUCC 50MG EXT REL TAB PO SCH ×2 (09:10→20:23)
[2020-12-25] MEDS: DULoxetine HCL 60 MG CAP PO SCH (09:11)
[2020-12-25] MEDS: ASPIRIN 81 MG ECTAB PO SCH (09:11)
[2020-12-25] MEDS: SPIRONOLACTONE 25 MG TAB PO SCH (09:11)
[2020-12-25] MEDS: TORSEMIDE 10 MG TAB PO SCH (09:12)
[2020-12-25] MEDS: FLUTICASONE/VILANTEROL 200/25MCG 14 PUFFS/INHALER INH SCH (09:12)
--- NOTE | 2020-12-25 09:44 | Nephrology Progress Note ---
Date of Service December 25, 2020 Assessment & Plan (1) Acute kidney injury superimposed on chronic kidney disease: Patient with acute kidney injury on CKD likely cardiorenal syndrome. Baseline creatinine 1.4. Creatinine is downtrending to 1.58 today. Electrolytes are stable and no signs of volume overload. -Daily BMP while in-house -Continue current rate of diuresis (2) Acute on chronic diastolic heart failure: Patient admitted with acute CHF exacerbation. She improved with IV Lasix. She is now on Demadex 10 mg daily and Aldactone 25 mg daily. She appears euvolemic. -Continue current dose of diuresis -Low-salt diet (3) Anemia: Hemoglobin of 8.6 today which is likely exacerbating her respiratory symptoms. Will check iron studies. Patient needs renal follow-up on discharge. Admission and Anticipated Discharge Date Admission Date: December 23, 2020 Subjective Seen in follow-up for acute kidney injury and CHF. Patient is on BiPAP this morning. She normally uses BiPAP at night even at home. She reports no new complaints. Breathing appears to be at baseline. Legs are not swollen. Daughter manages her medications at home. Review of Systems Review of Systems: All systems reviewed & are unremarkable except as noted in HPI & below Physical Exam Physical Exam: General exam: Appears comfortable, no acute distress, on BiPAP HEENT: Pupils are equal and reactive to light Neck: No JVD, neck is supple trachea is midline Respiratory system: Clear breath sounds bilaterally. Gastrointestinal: Abdomen is soft, non distended, non tender, bowel sounds are present CVS: Regular rate and rhythm. No murmurs, rubs or gallops Musculoskeletal: No joint or muscle tenderness Extremities: Non tender, no edema, peripheral pulses are present Neuro: Oriented, no tremors, no focal neurological deficits Skin: No rashes Results & Data ([facility]) Vital Signs (Past 12 Hours) Vital Signs Temp Pulse Pulse Resp BP Pulse Ox 12/25/20 08:17 68 18 98 12/25/20 08:15 68 18 98 12/25/20 07:22 36.9 C 77 20 111/73 94 12/25/20 07:13 62 12/25/20 04:33 64 21 98 12/25/20 03:06 36.3 C L 62 18 119/67 94 12/25/20 00:43 65 12/24/20 23:12 36.3 C L 66 16 158/73 H 95 12/24/20 23:10 78 18 94 Laboratory Results 12/25/20 04:08 12/25/20 12/25/20 04:08 04:08 WBC 10.88 H RBC 3.58 L MCV 84.1 MCH 24.0 L MCHC 28.6 L RDW Std Deviation 66.1 H RDW Coeff of Rolan 21.1 H Plt Count 370 MPV 9.4 Albumin 3.3 L
[2020-12-25 10:22] LABS: Ferritin 35.6 ng/ml (8-388)
--- NOTE | 2020-12-25 12:51 | Cardiology Progress Note ---
Date of Service December 25, 2020 Assessment & Plan (1) Chronic diastolic heart failure: Patient is an extremely complex 60-year-old female with issues as outlined above. Her underlying cardiac issues notable for severe hypertrophic cardiomyopathy with extremely hyperdynamic LV systolic function but poor cardiac output secondary to small left upper cavity size. She has had ongoing issues with brittle diastolic dysfunction and easily exacerbated congestive heart failure with any physical or metabolic strain.. Presents now with acute febrile illness nausea vomiting and dyspnea. I suspect component of diastolic heart failure being driven by underlying illnesses. Concern raised regarding recent acute cholangitis. Patient currently comfortable for marked pulmonary and respiratory status using BiPAP as in past. Exam not consistent with severe volume overload. Troponins chronically elevated and flat no sign to suggest acute coronary syndrome. BNP is chronically elevated by past assessments. Recommendations: Acute diastolic heart failure being driven by acute illness and pain. Patient responded promptly to IV diuretics. Back on oral diuretics. Will need to follow I's and O's and weights carefully given IV antibiotic therapies Patient to remain on aspirin. Clopidogrel held now greater than 5 months post latest generation coronary stent with potential to proceeding to need cholecystectomy (2) Acute right flank pain: (3) Apical variant hypertrophic cardiomyopathy: (4) Cholelithiasis with acute cholangitis with biliary obstruction: (5) Elevated troponin: (6) Acute kidney injury superimposed on chronic kidney disease: Admission and Anticipated Discharge Date Admission Date: December 23, 2020 Subjective Patient was seen and examined, chart, medications, telemetry reviewed. Sitting upright at bedside at time of examination, and having breakfast. No worsening shortness of breath chest pains dizziness or lightheadedness. Still with abdominal discomfort. Has remained afebrile overnight. No chills or rigors. Review of Systems Review of Systems: All systems reviewed & are unremarkable except as noted in HPI & below Physical Exam Constitutional: WD/WN, vitals as above + obese; no acute distress Eyes: PERRL, conjunctivae normal, anicteric sclerae ENMT: external ear and nose normal, oropharynx normal Neck: trachea midline, no thyromegaly + thick neck Respiratory: normal respiratory effort, lungs clear to auscultation Auscultation: + diminished lung sounds; no rales Cardiovascular: Rate/Rhythm: regular rate and regular rhythm Heart Sounds: normal S1 and normal S2; no gallop and no murmur Palpation: normal PMI Vessels: normal carotid upstroke and radial pulses present; no JVD and no carotid bruit Extremities: no edema Gastrointestinal (Abdomen): normal bowel sounds, soft, nontender, no hepatosplenomegaly Musculoskeletal: no cyanosis or clubbing, extremities motor strength 5/5 Skin: no rashes, warm and dry Face plethoric Neurologic: PERRL, EOMI, accommodation nl, no face palsy, no dysarthria Psychiatric: Orientation: alert and oriented x 3 Affect: + depressed affect Results & Data ([facility]) Vital Signs (Past 12 Hours) Vital Signs Temp Pulse Pulse Resp BP Pulse Ox 12/25/20 11:27 36.5 C 64 18 113/59 L 94 12/25/20 08:17 68 18 98 12/25/20 08:15 68 18 98 12/25/20 07:22 36.9 C 77 20 111/73 94 12/25/20 07:13 62 12/25/20 04:33 64 21 98 12/25/20 03:06 36.3 C L 62 18 119/67 94 Laboratory Results Laboratory Results - last 24 hr 12/24/20 12/24/20 12/25/20 16:33 20:09 04:08 WBC 10.88 H RBC 3.58 L Hgb 8.6 L Hct 30.1 L MCV 84.1 MCH 24.0 L MCHC 28.6 L RDW Std Deviation 66.1 H RDW Coeff of Rolan 21.1 H Plt Count 370 MPV 9.4 ABG pH ABG pCO2 ABG pO2 ABG HCO3 ABG O2 Saturation ABG Base Excess Rambo Test Barometric Pressure Oxygen Given Sodium Potassium Chloride Carbon Dioxide Anion Gap BUN Creatinine Est Cr Clr Drug Dosing Est GFR ( Amer) Est GFR (Non-Af Amer) BUN/Creatinine Ratio Glucose POC Glucose 126 H 180 H Calcium Iron Transferrin Transferrin % Sat Ferritin Total Bilirubin AST ALT Alkaline Phosphatase Total Protein Albumin Globulin Albumin/Globulin Ratio 12/25/20 12/25/20 12/25/20 04:08 04:08 04:08 WBC RBC Hgb Hct MCV MCH MCHC RDW Std Deviation RDW Coeff of Rolan Plt Count MPV ABG pH 7.47 H ABG pCO2 35 ABG pO2 50 L ABG HCO3 24 ABG O2 Saturation 84.4 L ABG Base Excess 0.8 Rambo Test POS Barometric Pressure 727.8 Oxygen Given 2L/ROOM AIR Sodium 142 Potassium 4.4 Chloride 109 H Carbon Dioxide 27 Anion Gap 6.0 BUN 35 H Creatinine 1.58 H Est Cr Clr Drug Dosing 33.5 Est GFR ( Amer) 40.2 Est GFR (Non-Af Amer) 34.7 BUN/Creatinine Ratio 21.9 H Glucose 140 H POC Glucose Calcium 8.3 L Iron 29 L Transferrin 257 Transferrin % Sat 8 L Ferritin 35.6 Total Bilirubin 0.6 AST 22 ALT 43 Alkaline Phosphatase 187 H Total Protein 6.6 Albumin 3.3 L Globulin 3.3 Albumin/Globulin Ratio 1.0 12/25/20 12/25/20 07:30 11:32 WBC RBC Hgb Hct MCV MCH MCHC RDW Std Deviation RDW Coeff of Rolan Plt Count MPV ABG pH ABG pCO2 ABG pO2 ABG HCO3 ABG O2 Saturation ABG Base Excess Rambo Test Barometric Pressure Oxygen Given Sodium Potassium Chloride Carbon Dioxide Anion Gap BUN Creatinine Est Cr Clr Drug Dosing Est GFR ( Amer) Est GFR (Non-Af Amer) BUN/Creatinine Ratio Glucose POC Glucose 104 H 179 H Calcium Iron Transferrin Transferrin % Sat Ferritin Total Bilirubin AST ALT Alkaline Phosphatase Total Protein Albumin Globulin Albumin/Globulin Ratio
[2020-12-25] MEDS: ACETAMINOPHEN 325 MG TAB PO PRN (13:41)
--- NOTE | 2020-12-25 19:06 | Hospitalist Progress Note ---
Date of Service December 25, 2020 Assessment & Plan (1) Acute on chronic respiratory failure with hypoxia and hypercapnia: Acute and chronic hypoxic respiratory failure at baseline on 2 L 02 via nasal canula pt Presented with increasing dyspnea. Tachypneic with resp rate of 27-31, desaturation noted as low as 79-84% on RA (pt had taken her O2 off) pt was placed on Bipap , ordered DuoNeb IV Lasix for possible acute on chronic diastolic CHF respiratory status improved to baseline remains on 2 L 02 via nasal canula CADENCE : continue Bipap at night /keeping it on for 3-4 hrs only pt was found to be confused and hypoxic while off Bipap at night counselling provided to utilize Bipap throughout the night to prevent resp failure /co2 retention / pt verbalized understanding Severe Hypertrophic Cardiomyopathy: hx of HOCM . appreciate input from cardiology avoid low vol status as it may worsen out flow obstruction cont Verapamil /Beta jorge for heart rate control due to complex cardiac hx , acute illness , pt needs to be monitored on tele Possible Pneumonia /present on admission 60 yo female presenting with increasing weakness, dyspnea and R flank/R upper abd pain. CXR and CT abd/pelvis with R lung base opacities suspicious for pneumonia vs aspiration pneumonia WBC 12.58. speech eval in past indicates pt at high risk for aspiration however not noted to be aspirating at time of the speech eval. 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 : appreciate input from Nephrology pt had > 3 L urine output with diuresis , improvement of breathing improved cr 1.3 -1.5 ( approx baseline ) home diuretics torsemide and Aldactone resumed Acute on chronic cholangitis : clinically improved with IV Invanz no fever of chills /diet advanced tolerating well appreciate input from surgery pt was recently admitted to [facility] on Nov 2020 with acute cholangitis was treated conservatively with abx cholecystectomy was not done as deemed high risk for surgery given co- morbidities underwent ERCP by GI s/p biliary stent placement for gall bladder decompression biliary stent was scheduled to be removed by GI end of December ID , recommends to cont with IV invanz for now/will be changed to PO abx on discharge will need 10-14 days tx pt will eventually need cholecystectomy pt and her , are worried and concerned that her gall bladder infection will get worse after stopping antibiotic and will lead to hospital admission options of tx discussed with pt if pt continues to do well pt will need to follow up with general surgery at [facility] for elective cholecystectomy at tertiary center pt and her agreeable Hypoglycemia : Type 2 DM insulin dependent resolved , BSG elevated as pt is tolerating diet possible due to poor po intake in setting of chronic cholangitis ordered insulins SSI appreciate input from special educator pt has been having frequent hypoglycemic episodes at home Hb A1c home insulin dose will be reduced 50%on discharged will need to be followed up at [place] [facility]diabetic clinic for further adjustment Full code Disposition: expected to be discharged home on Sunday/Sunday if remains medically stable Admission and Anticipated Discharge Date Admission Date: December 23, 2020 Subjective Sitting upright at bedside at time of examination, doing better No worsening shortness of breath chest pains dizziness or lightheadedness. reports mild pain /discomfort in abdomen no nausea or vomiting , tolerating solid diet No chills or rigors. Physical Exam Constitutional: WD/WN, vitals as above Eyes: PERRL, conjunctivae normal, anicteric sclerae ENMT: external ear and nose normal, oropharynx normal Neck: trachea midline, no thyromegaly Respiratory: no respiratory distress and no cough Auscultation: + diminished lung sounds Cardiovascular: Rate/Rhythm: regular rate and regular rhythm Gastrointestinal (Abdomen): Percussion/Palpation: abdomen soft; abdomen nontender (no rt upper quad tendernss noted ) Skin: no rashes, warm and dry Neurologic: PERRL, EOMI, accommodation nl, no face palsy, no dysarthria Psychiatric: A+Ox3, euthymic affect Results & Data Results & Data ([facility]) Vital Signs (Past 12 Hours) Vital Signs Temp Pulse Pulse Resp BP Pulse Ox 12/25/20 19:00 36.9 C 106 H 18 119/69 92 12/25/20 17:58 65 12/25/20 16:13 36.5 C 69 20 103/58 L 91 12/25/20 15:05 63 24 98 12/25/20 11:27 36.5 C 64 18 113/59 L 94 12/25/20 08:17 68 18 98 12/25/20 08:15 68 18 98 12/25/20 07:22 36.9 C 77 20 111/73 94 02/06/21 07:13 62
[2020-12-25] MEDS: MIRTAZAPINE SOLTAB 15 MG PO SCH (20:21)
[2020-12-25] MEDS: FOLIC ACID 1 MG TAB PO SCH (20:21)
[2020-12-25] MEDS: rOPINIRole HCL 0.25 MG TABLET PO SCH (20:23)
[2020-12-26] MEDS: BUDESONIDE 0.5 MG/2 ML VIAL (PULMICORT) INH SCH ×2 (07:12→19:19)
[2020-12-26] MEDS: INSULIN ASPART 100 UNITS/ML 3 ML PEN SC SCH ×4 (07:54→20:30)
[2020-12-26] MEDS: CLOPIDOGREL BISULFATE 75 MG TAB PO SCH (07:57)
[2020-12-26] MEDS: ATORVASTATIN 40 MG TAB PO SCH (07:57)
[2020-12-26] MEDS: METOPROLOL SUCC 50MG EXT REL TAB PO SCH ×2 (07:57→20:42)
[2020-12-26] MEDS: TORSEMIDE 10 MG TAB PO SCH ×2 (07:57→08:20)
[2020-12-26] MEDS: ISOSORBIDE MONO EXTENDED REL 30 MG TABCR PO SCH (07:57)
[2020-12-26] MEDS: SPIRONOLACTONE 25 MG TAB PO SCH (07:58)
[2020-12-26] MEDS: GABAPENTIN 300 MG CAP PO SCH ×3 (07:58→20:41)
[2020-12-26] MEDS: FLUTICASONE/VILANTEROL 200/25MCG 14 PUFFS/INHALER INH SCH (07:58)
[2020-12-26] MEDS: VERAPAMIL HCL 40 MG TAB PO SCH ×4 (07:59→20:40)
[2020-12-26] MEDS: ADVANCED PROBIOTIC 1250 MG CAPSULE PO SCH ×3 (07:59→20:41)
[2020-12-26] MEDS: ASPIRIN 81 MG ECTAB PO SCH (07:59)
[2020-12-26] MEDS: DULoxetine HCL 60 MG CAP PO SCH (07:59)
--- NOTE | 2020-12-26 11:14 | Electrocardiogram Report ---
Test Reason : Blood Pressure : / mmHG Vent. Rate : 065 BPM Atrial Rate : 065 BPM P-R Int : 186 ms QRS Dur : 090 ms QT Int : 426 ms P-R-T Axes : 077 019 109 degrees QTc Int : 443 ms Normal sinus rhythm Abnormal QRS-T angle, consider primary T wave abnormality Abnormal ECG When compared with ECG of 24-DEC-2020 06:58, Sinus rhythm has replaced Electronic atrial pacemaker Confirmed by Saqib Gooden ([id number]) on 12/26/2020 11:13:48 AM Referred By: REFERRED SELF Confirmed By:Saqib Gooden
--- NOTE | 2020-12-26 12:06 | Cardiology Progress Note ---
Date of Service December 26, 2020 Assessment & Plan (1) Chronic diastolic heart failure: Patient is an extremely complex 60-year-old female with issues as outlined above. Her underlying cardiac issues notable for severe hypertrophic cardiomyopathy with extremely hyperdynamic LV systolic function but poor cardiac output secondary to small left upper cavity size. She has had ongoing issues with brittle diastolic dysfunction and easily exacerbated congestive heart failure with any physical or metabolic strain.. Presents now with acute febrile illness nausea vomiting and dyspnea. I suspect component of diastolic heart failure being driven by underlying illnesses. Concern raised regarding recent acute cholangitis. Patient currently comfortable for marked pulmonary and respiratory status using BiPAP as in past. Exam not consistent with severe volume overload. Troponins chronically elevated and flat no sign to suggest acute coronary syndrome. BNP is chronically elevated by past assessments. Recommendations: Acute diastolic heart failure being driven by acute illness and pain. Patient responded promptly to IV diuretics. Patient appears hemodynamically and volume status stable by exam. Not following I's and O's and weights we will add daily weights to her regimen Continue current therapies (2) Acute right flank pain: (3) Apical variant hypertrophic cardiomyopathy: (4) Cholelithiasis with acute cholangitis with biliary obstruction: (5) Elevated troponin: (6) Acute kidney injury superimposed on chronic kidney disease: Admission and Anticipated Discharge Date Admission Date: December 23, 2020 Subjective Patient seen and examined, chart, medications, telemetry reviewed. Appears more comfortable today still with mild abdominal pain. No fevers or chills. No worsening shortness of breath orthopnea. Review of Systems Review of Systems: All systems reviewed & are unremarkable except as noted in HPI & below Physical Exam Constitutional: WD/WN, vitals as above + obese; no acute distress Eyes: PERRL, conjunctivae normal, anicteric sclerae ENMT: external ear and nose normal, oropharynx normal Neck: trachea midline, no thyromegaly + thick neck Respiratory: normal respiratory effort, lungs clear to auscultation Auscultation: + diminished lung sounds; no rales Cardiovascular: Rate/Rhythm: regular rate and regular rhythm Heart Sounds: normal S1 and normal S2; no gallop and no murmur Palpation: normal PMI Vessels: normal carotid upstroke and radial pulses present; no JVD and no carotid bruit Extremities: no edema Gastrointestinal (Abdomen): normal bowel sounds, soft, nontender, no hepatosplenomegaly Musculoskeletal: no cyanosis or clubbing, extremities motor strength 5/5 Skin: no rashes, warm and dry Neurologic: PERRL, EOMI, accommodation nl, no face palsy, no dysarthria Psychiatric: A+Ox3, euthymic affect Orientation: alert and oriented x 3 Affect: + depressed affect Results & Data ([facility]) Vital Signs (Past 12 Hours) Vital Signs Temp Pulse Pulse Resp BP Pulse Ox 12/26/20 11:09 36.4 C L 65 18 139/73 95 12/26/20 07:15 64 18 96 12/26/20 07:09 63 12/26/20 07:02 36.4 C L 66 18 118/62 96 12/26/20 04:05 36.2 C L 62 17 117/68 97 12/26/20 02:50 74 14 99 12/26/20 00:33 65
--- NOTE | 2020-12-26 12:46 | Nephrology Progress Note ---
Date of Service December 26, 2020 Assessment & Plan (1) Acute kidney injury superimposed on chronic kidney disease: Patient with acute kidney injury on CKD likely cardiorenal syndrome. Baseline creatinine 1.4. Creatinine is downtrending to 1.58. Electrolytes are stable and no signs of volume overload. -Daily BMP while in-house -Continue current rate of diuresis (2) Acute on chronic diastolic heart failure: Patient admitted with acute CHF exacerbation. She improved with IV Lasix. She is now on Demadex 10 mg daily and Aldactone 25 mg daily. She appears euvolemic. -Continue current dose of diuresis -Low-salt diet (3) Anemia: Hemoglobin of 8.6 today which is likely exacerbating her respiratory sy mptoms. Transferrin saturation of 8%. Patient would benefit from Venofer once infection is treated. Patient needs renal follow-up on discharge. Admission and Anticipated Discharge Date Admission Date: December 23, 2020 Subjective Seen in follow-up for acute kidney injury on CKD and CHF. Breathing is about the same. She is now on oxygen nasal cannula. She uses BiPAP at night. Review of Systems Review of Systems: All systems reviewed & are unremarkable except as noted in HPI & below Physical Exam Physical Exam: General exam: Appears comfortable, no acute distress, on oxygen nasal cannula HEENT: Pupils are equal and reactive to light Neck: No JVD, neck is supple trachea is midline Respiratory system: Clear breath sounds bilaterally. Gastrointestinal: Abdomen is soft, non distended, non tender, bowel sounds are present CVS: Regular rate and rhythm. No murmurs, rubs or gallops Musculoskeletal: No joint or muscle tenderness Extremities: Non tender, no edema, peripheral pulses are present Neuro: Oriented, no tremors, no focal neurological deficits Skin: No rashes Results & Data ([facility]) Vital Signs (Past 12 Hours) Vital Signs Temp Pulse Pulse Resp BP Pulse Ox 12/26/20 11:09 36.4 C L 65 18 139/73 95 12/26/20 07:15 64 18 96 12/26/20 07:09 63 12/26/20 07:02 36.4 C L 66 18 118/62 96 12/26/20 04:05 36.2 C L 62 17 117/68 97 12/26/20 02:50 74 14 99 Laboratory Results 12/25/20 04:08
[2020-12-26] MEDS: ACETAMINOPHEN 325 MG TAB PO PRN (16:03)
--- NOTE | 2020-12-26 16:11 | Hospitalist Progress Note ---
Date of Service December 26, 2020 Assessment & Plan (1) Acute on chronic respiratory failure with hypoxia and hypercapnia: Acute on chronic cholangitis : clinically improved with IV Invanz no fever of chills /diet advanced tolerating well appreciate input from surgery pt was recently admitted to [facility] on Nov 2020 with acute cholangitis was treated conservatively with abx cholecystectomy was not done as deemed high risk for surgery given co- morbidities underwent ERCP by GI s/p biliary stent placement for gall bladder decompression CT abdomen /pelvis :this Admission Interval placement of two biliary stents which terminate within the duodenum with mild pneumobilia. The more proximal stent distal tip appears to tent the anterior duodenal wall or partially extends outside the lumen. No associated bowel wall thickening, inflammatory stranding or pneumoperitoneum. GI eval requested , pt may need biliary stent exchange earlier ( was scheduled for procedure at end of this month ) ordered for NPO past midnight - ID , recommends to cont with IV invanz for now/will be changed to PO abx on discharge will need 10-14 days tx pt will eventually need cholecystectomy pt and her , are worried and concerned that her gall bladder infection will get worse after stopping antibiotic and will lead to hospital admission options of tx discussed with pt if pt continues to do well pt will need to follow up with general surgery at [facility] for elective cholecystectomy at tertiary center pt and her agreeable GI eval requested as well Acute and chronic hypoxic respiratory failure at baseline on 2 L 02 via nasal canula pt Presented with increasing dyspnea. Tachypneic with resp rate of 27-31, desaturation noted as low as 79-84% on RA (pt had taken her O2 off) pt was placed on Bipap , ordered DuoNeb IV Lasix for possible acute on chronic diastolic CHF respiratory status improved to baseline remains on 2 L 02 via nasal canula CADENCE : continue Bipap at night /keeping it on for 3-4 hrs only pt was found to be confused and hypoxic while off Bipap at night counselling provided to utilize Bipap throughout the night to prevent resp failure /co2 retention / pt verbalized understanding Severe Hypertrophic Cardiomyopathy: hx of HOCM . appreciate input from cardiology avoid low vol status as it may worsen out flow obstruction cont Verapamil /Beta jorge for heart rate control due to complex cardiac hx , acute illness , pt needs to be monitored on tele Possible Pneumonia /present on admission 60 yo female presenting with increasing weakness, dyspnea and R flank/R upper abd pain. CXR and CT abd/pelvis with R lung base opacities suspicious for pneumonia vs aspiration pneumonia WBC 12.58. speech eval in past indicates pt at high risk for aspiration however not noted to be aspirating at time of the speech eval. pt is continued with Abx respiratory support with supplemental DuoNeb, continue home INH Breo Ellipta, albuterol prn Acute renal failure on CKD stage 3-4 : appreciate input from Nephrology pt had > 3 L urine output with diuresis , improvement of breathing improved cr 1.3 -1.5 ( approx baseline ) home diuretics torsemide and Aldactone resumed Hypoglycemia : Type 2 DM insulin dependent resolved , BSG elevated as pt is tolerating diet possible due to poor po intake in setting of chronic cholangitis ordered insulins SSI appreciate input from blindstitch hemmer pt has been having frequent hypoglycemic episodes at home Hb A1c home insulin dose will be reduced 50%on discharged will need to be followed up at [facility] /diabetic clinic for further adjustment Full code Disposition: expected to be discharged home on Sunday/Sunday if remains medically stable Admission and Anticipated Discharge Date Admission Date: December 23, 2020 Subjective still has rt upper quadrant pain no fever or chills no nausea no SOB or cough Review of Systems Review of Systems: All systems reviewed & are unremarkable except as noted in Subjective Physical Exam Constitutional: WD/WN, vitals as above Eyes: PERRL, conjunctivae normal, anicteric sclerae ENMT: external ear and nose normal, oropharynx normal Neck: trachea midline, no thyromegaly Respiratory: no respiratory distress and no cough Auscultation: + diminished lung sounds Cardiovascular: Rate/Rhythm: regular rate and regular rhythm Gastrointestinal (Abdomen): Percussion/Palpation: abdomen soft; abdomen nontender (no rt upper quad tendernss noted ) Skin: no rashes, warm and dry Neurologic: PERRL, EOMI, accommodation nl, no face palsy, no dysarthria Psychiatric: A+Ox3, euthymic affect Results & Data Results & Data ([facility]) Vital Signs (Past 12 Hours) Vital Signs Temp Pulse Pulse Resp BP Pulse Ox 12/26/20 15:12 63 12/26/20 14:43 36.5 C 60 16 104/68 95 12/26/20 14:05 63 24 96 12/26/20 11:09 36.4 C L 65 18 139/73 95 12/26/20 07:15 64 18 96 12/26/20 07:09 63 12/26/20 07:02 36.4 C L 66 18 118/62 96
[2020-12-26] MEDS: rOPINIRole HCL 0.25 MG TABLET PO SCH (20:40)
[2020-12-26] MEDS: FOLIC ACID 1 MG TAB PO SCH (20:41)
[2020-12-26] MEDS: MIRTAZAPINE SOLTAB 15 MG PO SCH (20:42)
[2020-12-26] MEDS: ERTAPENEM SODIUM 1,000 MG in SODIUM CHLORIDE 0.9% 50 ML IV SCH (23:56)
[2020-12-27] MEDS: BUDESONIDE 0.5 MG/2 ML VIAL (PULMICORT) INH SCH ×2 (07:35→19:30)
[2020-12-27] MEDS: FLUTICASONE/VILANTEROL 200/25MCG 14 PUFFS/INHALER INH SCH (07:55)
[2020-12-27] MEDS: ATORVASTATIN 40 MG TAB PO SCH (07:56)
[2020-12-27] MEDS: ADVANCED PROBIOTIC 1250 MG CAPSULE PO SCH ×3 (07:56→20:52)
[2020-12-27] MEDS: TORSEMIDE 10 MG TAB PO SCH (07:56)
[2020-12-27] MEDS: VERAPAMIL HCL 40 MG TAB PO SCH ×4 (07:57→20:50)
[2020-12-27] MEDS: DULoxetine HCL 60 MG CAP PO SCH (07:57)
[2020-12-27] MEDS: ASPIRIN 81 MG ECTAB PO SCH (07:57)
[2020-12-27] MEDS: CLOPIDOGREL BISULFATE 75 MG TAB PO SCH (07:57)
[2020-12-27] MEDS: ISOSORBIDE MONO EXTENDED REL 30 MG TABCR PO SCH (07:58)
[2020-12-27] MEDS: METOPROLOL SUCC 50MG EXT REL TAB PO SCH ×2 (07:58→20:52)
[2020-12-27] MEDS: GABAPENTIN 300 MG CAP PO SCH ×3 (07:58→20:52)
[2020-12-27] MEDS: SPIRONOLACTONE 25 MG TAB PO SCH (07:58)
[2020-12-27] MEDS: INSULIN ASPART 100 UNITS/ML 3 ML PEN SC SCH ×4 (07:59→20:54)
[2020-12-27 08:11] LABS: Creatinine Clr Calc Pharmacy 39.9 ml/min; Est GFR (African American) 50.4; Est GFR (Non-African American) 43.5
[2020-12-27 10:36] LABS: Albumin Level 3.1 gm/dl (3.4-5.0); Bilirubin Direct 0.2 mg/dl (0-0.2); Bilirubin,Total 0.4 mg/dl (0.2-1); Total Protein 6.3 gm/dl (6.4-8.2)
[2020-12-27 10:37] LABS: Hematocrit (blood only) 30.1 % (37-47); Hemoglobin 8.4 g/dL (12.0-16.0); Mean Corpuscular Hgb Conc 27.9 g/dL (32-36); Mean Platelet Volume 8.9 fL (7.4-10.4); Platelet Count 269 K/uL (130-400); RDW Standard Deviation 65.9 fL (36.4-46.3); White Blood Count 6.66 K/uL (4.8-10.8)
--- NOTE | 2020-12-27 11:46 | Cardiology Progress Note ---
Date of Service December 27, 2020 Assessment & Plan (1) Chronic diastolic heart failure: Patient is an extremely complex 60-year-old female with issues as outlined above. Her underlying cardiac issues notable for severe hypertrophic cardiomyopathy with extremely hyperdynamic LV systolic function but poor cardiac output secondary to small left upper cavity size. She has had ongoing issues with brittle diastolic dysfunction and easily exacerbated congestive heart failure with any physical or metabolic strain.. Presents now with acute febrile illness nausea vomiting and dyspnea. I suspect component of diastolic heart failure being driven by underlying illnesses. Concern raised regarding recent acute cholangitis. Patient currently comfortable for marked pulmonary and respiratory status using BiPAP as in past. Exam not consistent with severe volume overload. Troponins chronically elevated and flat no sign to suggest acute coronary syndrome. BNP is chronically elevated by past assessments. Recommendations: Acute diastolic heart failure being driven by acute illness and pain. Patient responded promptly to IV diuretics now euvolemic. Patient appears hemodynamically and volume status stable by exam. No chest pain or cardiac complaints. Weight stable Patient on oral cardiac regimen would continue. No further clopidogrel (2) Acute right flank pain: (3) Apical variant hypertrophic cardiomyopathy: (4) Cholelithiasis with acute cholangitis with biliary obstruction: (5) Elevated troponin: (6) Acute kidney injury superimposed on chronic kidney disease: Admission and Anticipated Discharge Date Admission Date: December 23, 2020 Subjective Patient was seen and examined, chart, medications, telemetry reviewed. Overall no acute complaints other than mild abdominal discomfort which appears to be improving. No chest pains, tachypalpitations, orthopnea or peripheral edema. Able to eat and move bowels Weight stable by check this morning. Review of Systems Review of Systems: All systems reviewed & are unremarkable except as noted in HPI & below Physical Exam Constitutional: WD/WN, vitals as above + obese; no acute distress Eyes: PERRL, conjunctivae normal, anicteric sclerae ENMT: external ear and nose normal, oropharynx normal Neck: trachea midline, no thyromegaly + thick neck Respiratory: normal respiratory effort, lungs clear to auscultation Auscultation: + diminished lung sounds; no rales Cardiovascular: Rate/Rhythm: regular rate and regular rhythm Heart Sounds: normal S1 and normal S2; no gallop and no murmur Palpation: normal PMI Vessels: normal carotid upstroke and radial pulses present; no JVD and no carotid bruit Extremities: no edema Gastrointestinal (Abdomen): normal bowel sounds, soft, nontender, no hepatosplenomegaly Very mild right upper quadrant tenderness Musculoskeletal: no cyanosis or clubbing, extremities motor strength 5/5 Skin: no rashes, warm and dry Neurologic: PERRL, EOMI, accommodation nl, no face palsy, no dysarthria Psychiatric: A+Ox3, euthymic affect Orientation: alert and oriented x 3 Affect: + depressed affect Results & Data ([facility]) Vital Signs (Past 12 Hours) Vital Signs Temp Pulse Pulse Resp BP Pulse Ox 12/27/20 11:39 36.6 C 69 16 120/69 96 12/27/20 07:36 18 96 12/27/20 07:35 65 18 96 12/27/20 07:21 64 12/27/20 07:14 36.4 C L 63 18 126/70 98 12/27/20 04:12 36.8 C 62 16 136/73 92 12/27/20 02:13 60 22 96 12/27/20 01:01 65
--- NOTE | 2020-12-27 12:09 | Gastrointestinal Consultation ---
Date of Consultation December 27, 2020 Assessment & Plan (1) Respiratory failure: (2) Acute on chronic diastolic heart failure: Pt is a 60 y/o female admitted for respiratory failure, acute on chronic CHF. Hx of cholecystitis but poor surgical candidate, choledocholithiasis, cholangitis s/p ERCP 12/09 w gallbladder and biliary stent placements. Her CT abd/pelvis her proximal (biliary) stent appears to tent the duodenum area but no signs of perforation or obstruction noted. Abd exam otherwise benign - Trend LFTs - Reviewed CT images w Dr. Carlson and Dr. Contreras (radiologist). No plans for repeat ERCP today. However will hold her ASA and Plavix, re-eval her tomorrow especially assessing her respiratory status to decide if biliary intervention is indicated. - Keep NPO after midnight pls Supervising Physician Co-Signing Physician Notes Attending attestation I have seen, examined this patient, and agree with the findings and above by our mid-level provider MARA Vega, with the following additions: - Biliary stent is protruding in duodenum without complication, debbi stent in place appropriately - needs axios as definitive treatment, on plavix for hx of PETERSON - Respiratory status is not great now, will hold am doses of medications, will discuss with Cardiology, potentially holding this and scheduling later this week or early next as outpt in ceres History of Present Illness Reason for Consultation: Possible displaced biliary stent Requesting Physician: Dr. Felicity Dallas Attending Physician: Dr. Jeremiah Carlson History of Present Illness Pt is a 60 y/o female w medical history as listed below who is currently admitted for respiratory distress 2/2 cardiomyopathy & CHF. She has hx of cholecystitis, choledocholithiasis, cholangitis s/p ERCP gallbladder & biliary stent placements. She isn't a good surgical candidate for cholecystectomy. Eventual plan for her to undergo repeat ERCP and Axios stent placement for gallbladder decompression. She is c/o RUQ abd pain, which hasn't changed since before her ERCP procedure. + mild subjective fever, no CP. + SOB. No n/v, bowel habit changes. LFTs normalizing. CT abd/pelvis obtained which showed the 2 placed stents, the proximal biliary stent tip appears to tent the anterior duodenal wall, no bowel wall/inflammatory stranding or pneumoperitoneum. Gallbladder is partially distended w wall thickening & pericholecystic edema. No bowel wall thickening or obstruction. GI consulted to review biliary stent placement and assess for indication of removal/replacement Allergies Allergy/AdvReac Type Severity Reaction Status Date / Time Penicillins Allergy Intermediate Flushing, Verified 12/22/20 21:58 Itchiness Sulfa (Sulfonamide Allergy Intermediate Swelling Verified 12/22/20 21:58 Antibiotics) doxycycline Allergy Unknown Unknown Verified 12/22/20 21:58 adhesive AdvReac Intermediate Blistering Verified 12/22/20 21:58 morphine AdvReac Hallucinati Verified 12/22/20 21:59 ng Home Medications Medication Instructions Recorded Confirmed Type duloxetine 60 mg PO QAM 08/09/18 12/22/20 History folic acid 1 mg PO HS 08/09/18 12/22/20 History sumatriptan succinate 50 mg PO DIRECTED PRN 08/09/18 12/22/20 History albuterol sulfate 3 ml INHALATION Q4H PRN 09/09/18 12/22/20 History diphenoxylate-atropine [Lomotil] 1 tab PO QID PRN 12/19/18 12/22/20 History albuterol sulfate [Ventolin HFA] 2 puff INHALATION Q4H PRN 06/30/19 12/22/20 History fluticasone propion-salmeterol 1 inh INHALATION BID 06/30/19 12/22/20 History [Advair Diskus] gabapentin 300 mg PO TID 06/30/19 12/22/20 History nitroglycerin [Nitrostat] 0.4 mg SUBLINGUAL DIRECTED PRN 06/30/19 12/22/20 History ondansetron 4 mg TRANSLINGUAL Q8H PRN 06/30/19 12/22/20 History spironolactone [Aldactone] 25 mg PO QAM 06/30/19 12/22/20 History mirtazapine 45 mg PO HS 09/25/19 12/22/20 History ropinirole 0.5 mg PO HS 09/25/19 12/22/20 History budesonide 0.5 mg INHALATION Q12 01/13/20 12/22/20 History torsemide See Rx Instructions .ROUTE .COMPLEX 01/13/20 12/22/20 History atorvastatin [Lipitor] 40 mg PO QAM 04/30/20 12/22/20 History insulin asp prt-insulin aspart 25 unit SUBCUT DAILYBD 07/07/20 12/22/20 History [Novolog Mix 70-30FlexPen U-100] insulin asp prt-insulin aspart 55 unit SUBCUT DAILYBB 07/07/20 12/22/20 History [Novolog Mix 70-30FlexPen U-100] Januvia 100 mg PO DAILY 07/28/20 12/22/20 History Lactobacillus acidoph-L.bulgar 1 tab PO TID 07/28/20 12/22/20 History [Floranex] aspirin 81 mg PO DAILY 07/28/20 12/22/20 History isosorbide mononitrate 30 mg PO QAM 07/28/20 12/22/20 History pantoprazole 40 mg PO BID 07/28/20 12/22/20 History clopidogrel 75 mg PO QAM #30 tab 07/30/20 12/22/20 Rx verapamil 40 mg PO QID 11/16/20 12/22/20 History metformin 500 mg PO BID 12/07/20 12/22/20 History metoprolol succinate 50 mg PO BID #60 tab 12/13/20 12/22/20 Rx Patient History Medical History Anxiety Arthritis Asthma Cardiac defibrillator in place 2014 CHF (congestive heart failure) CKD (chronic kidney disease), stage III COPD (chronic obstructive pulmonary disease) Depression Depression with anxiety Diabetes mellitus, type 2 Elevated troponin Elevated troponin Fatty (change of) liver, not elsewhere classified GERD (gastroesophageal reflux disease) Headache HLD (hyperlipidemia) Hydronephrosis of right kidney Hypertension Hypertrophic cardiomyopathy Hypocalcemia Hypoglycemia Hypomagnesemia CADENCE (obstructive sleep apnea) on nocturnal O2 2L Pancreatic cyst Restless leg syndrome Surgical History H/O section 1979 & 1982 H/O hernia repair 2016 History of appendectomy 1970s History of colostomy reversal bowel perf 2013 with colostomy reversed in 2014 Status post internal cardiac defibrillator procedure "2015" Status post partial resection of colon "diverticulitis 11/05/14" Family History Other Hypertrophic cardiomyopathy Stomach cancer Thyroid disorder Social History Smoking Status: Never smoker Second Hand Exposure: No; Do You Dip or Chew Tobacco: No; Hx Alcohol Use: No Hx Substance Use: No Preferred Language: Romanian Communication Ability: Effective Risk Control Field Representative Required: No Beliefs That Will Affect Care: None marital status: Current Living Situation: Spouse and Family 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 Other Information That Helps Us Care for You: No Feels Safe at Home: Yes Safety Concerns: Feels Safe At This Time Assistive Devices: Oxygen - Continuous and Walker Review of Systems Review of Systems: All systems reviewed & are unremarkable except as noted in HPI & below Physical Exam Constitutional: WD/WN, vitals as above well groomed, cooperative and comfortable Eyes: PERRL, conjunctivae normal, anicteric sclerae ENMT: external ear and nose normal, oropharynx normal Respiratory: Auscultation: + diminished lung sounds appears tachypneic Cardiovascular: RRR, no murmur, no edema Gastrointestinal (Abdomen): Inspection/Auscultation: + hypoactive bowel sounds Percussion/Palpation: abdomen soft; abdomen nontender Skin: no rashes, warm and dry no jaundice Psychiatric: A+Ox3, euthymic affect Lymphatic: no lymphedema Results & Data ([facility]) Vital Signs (Past 12 Hours) Vital Signs Temp Pulse Pulse Resp BP Pulse Ox 12/27/20 11:39 36.6 C 69 16 120/69 96 12/27/20 07:36 18 96 12/27/20 07:35 65 18 96 12/27/20 07:21 64 12/27/20 07:14 36.4 C L 63 18 126/70 98 12/27/20 04:12 36.8 C 62 16 136/73 92 12/27/20 02:13 60 22 96 12/27/20 01:01 65 (1) Respiratory failure Chronicity: acute on chronic Respiratory failure complication: hypoxia Qualified Code(s): J96.21 - Acute and chronic respiratory failure with hypoxia
[2020-12-27 13:01] LABS: BUN Creatinine Ratio 17.7 (10-20); Blood Urea Nitrogen 23 mg/dl (7-18); Calcium 8.8 mg/dl (8.5-10.1); Chloride 110 mmol/L (98-107); Creatinine Clr Calc Pharmacy 39.6 ml/min; Est GFR (Non-African American) 43.1; Glucose 87 mg/dl (70-99); Sodium 148 mmol/L (136-145)
--- NOTE | 2020-12-27 16:56 | Nephrology Progress Note ---
Date of Service December 27, 2020 Assessment & Plan (1) Acute kidney injury superimposed on chronic kidney disease: Patient with acute kidney injury on CKD likely cardiorenal syndrome. Baseline creatinine 1.4. at baseline today. Electrolytes are stable and no signs of volume overload. -Daily BMP while in-house, glendy while NPO which she has been off and on -Continue current spironolactone, torsemide doses (2) Acute on chronic diastolic heart failure: Patient admitted with acute CHF exacerbation. She improved with IV Lasix. She is now on Demadex 10 mg T, W, F , Sa; 20 mg hamm, mon, and Aldactone 25 mg daily. She appears euvolemic. -Continue current diuretics -Low-salt diet (3) Anemia: Hemoglobin of 8.6 today which is likely exacerbating her respiratory symptoms. Transferrin saturation of 8%. Patient would benefit from Venofer once abd infection concerns suffciently treated. Patient needs renal follow-up on discharge w/ Dr Estrella. Admission and Anticipated Discharge Date Admission Date: December 23, 2020 Subjective seen on rounds about 1430; no sob (but on 02nc), no voiding c/o; no edema, endorses marked fatigue, some gen weakness; GI had planned repeat ERCP today but hten opted instead to observe for now Review of Systems Review of Systems: All systems reviewed & are unremarkable except as noted in Subjective Physical Exam Constitutional: well developed and well nourished; no acute distress Eyes: EOM intact bilaterally ENMT: Ears: no external ear abnormality Nose: no external nose abnormality Mouth: + dry oral mucous membranes Neck: no nuchal rigidity Respiratory: normal respiratory effort Auscultation: lungs clear to auscultation bilaterally and + diminished lung sounds Cardiovascular: Rate/Rhythm: regular rate and regular rhythm Extremities: no edema Gastrointestinal (Abdomen): Inspection/Auscultation: normal bowel sounds Percussion/Palpation: abdomen soft; abdomen nontender Musculoskeletal: no cyanosis or clubbing, extremities motor strength 5/5 Extremities: strength 5/5 throughout Skin: no rashes, warm and dry Neurologic: moreno, fluent speech, no tremor Psychiatric: Orientation: alert and oriented x 3 Speech: normal rate/rhythm/volume of speech Affect: + flat affect Results & Data ([facility]) Vital Signs (Past 12 Hours) Vital Signs Temp Pulse Pulse Resp BP Pulse Ox 12/27/20 16:00 72 12/27/20 15:12 36.7 C 94 H 22 113/69 92 12/27/20 11:39 36.6 C 69 16 120/69 96 12/27/20 07:36 18 96 12/27/20 07:35 65 18 96 12/27/20 07:21 64 12/27/20 07:14 36.4 C L 63 18 126/70 98
[2020-12-27] MEDS: MIRTAZAPINE SOLTAB 15 MG PO SCH (20:52)
[2020-12-27] MEDS: rOPINIRole HCL 0.25 MG TABLET PO SCH (20:52)
[2020-12-27] MEDS: FOLIC ACID 1 MG TAB PO SCH (20:52)
--- NOTE | 2020-12-27 20:57 | Hospitalist Progress Note ---
Date of Service December 27, 2020 Assessment & Plan (1) Acute on chronic respiratory failure with hypoxia and hypercapnia: Acute on chronic cholangitis : in IV invanz no fever of chills /diet advanced tolerating well appreciate input from surgery pt was recently admitted to [facility] on Nov 2020 with acute cholangitis was treated conservatively with abx cholecystectomy was not done as deemed high risk for surgery given co- morbidities underwent ERCP by GI s/p biliary stent placement for gall bladder decompression CT abdomen /pelvis :this Admission Interval placement of two biliary stents which terminate within the duodenum with mild pneumobilia. The more proximal stent distal tip appears to tent the anterior duodenal wall or partially extends outside the lumen. No associated bowel wall thickening, inflammatory stranding or pneumoperitoneum. GI eval appreciate ordered for NPO past midnight -possible GI procedure in am ID , recommends to cont with IV invanz for now/will be changed to PO abx on discharge will need 10-14 days tx pt will eventually need cholecystectomy pt and her , are worried and concerned that her gall bladder infection will get worse after stopping antibiotic and will lead to hospital admission options of tx discussed with pt if pt continues to do well pt will need to follow up with general surgery at [facility] for elective cholecystectomy at tertiary center pt and her agreeable Acute and chronic hypoxic respiratory failure at baseline on 2 L 02 via nasal canula required Bipap on admission , IV Lasix for possible acute on chronic diastolic CHF respiratory status improved to baseline remains on 2 L 02 via nasal canula CADENCE : continue Bipap at night /keeping it on for 3-4 hrs only pt was found to be confused and hypoxic while off Bipap at night counselling provided to utilize Bipap throughout the night to prevent resp failure /co2 retention / pt verbalized understanding Severe Hypertrophic Cardiomyopathy: hx of HOCM . appreciate input from cardiology avoid low vol status as it may worsen out flow obstruction cont Verapamil /Beta jorge for heart rate control due to complex cardiac hx , acute illness , pt needs to be monitored on tele Possible Pneumonia /present on admission 60 yo female presenting with increasing weakness, dyspnea and R flank/R upper abd pain. CXR and CT abd/pelvis with R lung base opacities suspicious for pneumonia vs aspiration pneumonia respiratory support with supplemental 02 /, DuoNeb, continue home INH Breo Ellipta, albuterol prn Acute renal failure on CKD stage 3-4 : appreciate input from Nephrology cr at baseline cont home diuretics Hypoglycemia : Type 2 DM insulin dependent resolved , BSG elevated as pt is tolerating diet possible due to poor po intake in setting of chronic cholangitis ordered insulins SSI appreciate input from geothermal hvac technician pt has been having frequent hypoglycemic episodes at home Hb A1c home insulin dose will be reduced 50%on discharged will need to be followed up at [facility] /diabetic clinic for further adjustment Full code Disposition: expected to be discharged home in when medically stable Admission and Anticipated Discharge Date Admission Date: December 23, 2020 Subjective follow up visit for recurrent cholangitis ; doing well today no complain of cough or orthopnea , no fever or chills still have rt upper quadrant pain no nausea or vomiting Review of Systems Review of Systems: All systems reviewed & are unremarkable except as noted in Subjective Physical Exam Constitutional: WD/WN, vitals as above Eyes: PERRL, conjunctivae normal, anicteric sclerae ENMT: external ear and nose normal, oropharynx normal Neck: trachea midline, no thyromegaly Respiratory: no respiratory distress and no cough Auscultation: + diminished lung sounds Cardiovascular: Rate/Rhythm: regular rate and regular rhythm Gastrointestinal (Abdomen): Percussion/Palpation: abdomen soft; abdomen nontender (no rt upper quad tendernss noted ) Skin: no rashes, warm and dry Neurologic: PERRL, EOMI, accommodation nl, no face palsy, no dysarthria Psychiatric: A+Ox3, euthymic affect Results & Data Results & Data ([facility]) Vital Signs (Past 12 Hours) Vital Signs Temp Pulse Pulse Resp BP Pulse Ox 12/27/20 19:31 65 18 97 12/27/20 19:03 36.8 C 66 23 97/52 L 100 12/27/20 16:00 72 12/27/20 15:12 36.7 C 94 H 22 113/69 92 12/27/20 11:39 36.6 C 69 16 120/69 96
[2020-12-27] MEDS ORDERED: LACTATED RINGER'S 1,000 ML IV SCH (21:00)
[2020-12-27] MEDS: ERTAPENEM SODIUM 1,000 MG in SODIUM CHLORIDE 0.9% 50 ML IV SCH (23:30)
[2020-12-28] MEDS: BUDESONIDE 0.5 MG/2 ML VIAL (PULMICORT) INH SCH (07:20)
[2020-12-28 08:14] LABS: Creatinine Clr Calc Pharmacy 43.1 ml/min; Est GFR (African American) 54.4
[2020-12-28] MEDS: INSULIN ASPART 100 UNITS/ML 3 ML PEN SC SCH ×3 (08:22→16:54)
--- NOTE | 2020-12-28 08:49 | Communication Note ---
Date of Service: December 28, 2020 Attending update : pt has significant cardiac hx : Severe hypertrophic cardiomyopathy leading to hyperdynamic LV systolic function but poor cardiac output secondary to small left upper cavity size. pt has severe diastolic dysfunction , stiff ventricles with poor CO /develops decompensated CHF ( HFpEF ) with any acute illness 'admitted with recurrent bouts of acute on chronic cholangitis Surgery was consulted -pt found to be a poor candidate for surgical procedure found to be high risk for cardiac decompensation during cholecystectomy was treated with IV abx , had biliary stent placed by GI on 12/09 of gall bladder decompression re admission again due to cholangitis , acute CKD , acute renal failure on CKD stage 3 per cardiology : pt is now 5 months past coronary drug eluting stent placement PO Plavix can be discontinued safely need surgical procedure for cholangitis given complexity of her cardiac hx -will need to be evaluated by surgery team in [place] Felicity Gregory MD
[2020-12-28] MEDS ORDERED: TORSEMIDE 10 MG TAB PO SCH (09:00)
--- NOTE | 2020-12-28 09:12 | Gastroenterology Progress Note ---
Date of Service December 28, 2020 Assessment & Plan (1) Respiratory failure: (2) Acute on chronic diastolic heart failure: Pt is a 60 y/o female admitted for respiratory failure, acute on chronic CHF. Hx of cholecystitis but poor surgical candidate, choledocholithiasis, cholangitis s/p ERCP 12/09 w gallbladder and biliary stent placements. Eventually would plan for her to have Axios stent placement for gallbladder drainage when she's off Plavix (has PETERSON). Her CT abd/pelvis her proximal (biliary) stent appears to tent the duodenum area but no signs of perforation or obstruction noted. Abd exam otherwise benign - Trend LFTs - Repeat CXR - Will discuss w pt's neon sign erector if Plavix can be held in anticipation for repeat ERCP w biliary stent exchange / Axios stent placement by end of week at [facility]. Admission and Anticipated Discharge Date Admission Date: December 23, 2020 Supervising Physician Co-Signing Physician Notes Attending attestation I have seen, examined this patient, and agree with the findings and above by our mid-level provider MARA Vega, with the following additions: - Biliary stent is protruding in duodenum without complication, debbi stent in place appropriately - needs axios as definitive treatment, on plavix for hx of PETERSON - Respiratory status has improved, if ok can continue to hold anticoagulation medication, will discuss with Cardiology, potentially holding this and scheduling later this week or early next as outpt [place] possibly as early as Sunday Subjective Pt reports not feeling as SOB, denies CP. O2 sat 97% on 3L NC. She is c/o RUQ abd pain but no n/v. Last BM 2 days ago, is passing flatus. Review of Systems Review of Systems: All systems reviewed & are unremarkable except as noted in HPI & below Physical Exam Constitutional: WD/WN, vitals as above well groomed, cooperative and comfortable Eyes: PERRL, conjunctivae normal, anicteric sclerae ENMT: external ear and nose normal, oropharynx normal Respiratory: Improved aeration on lungs noted on auscultation. However noted still using accessory muscles slightly on breathing Cardiovascular: RRR, no murmur, no edema Gastrointestinal (Abdomen): Inspection/Auscultation: + hypoactive bowel sounds Percussion/Palpation: abdomen soft; abdomen nontender Skin: no rashes, warm and dry no jaundice Psychiatric: A+Ox3, euthymic affect Lymphatic: no lymphedema Results & Data ([facility]) Vital Signs (Past 12 Hours) Vital Signs Temp Pulse Pulse Resp BP BP Pulse Ox 12/28/20 07:32 36.7 C 76 20 139/78 97 12/28/20 07:22 67 16 100 12/28/20 07:02 68 12/28/20 03:32 36.5 C 68 18 114/60 98 12/28/20 01:35 77 18 91 12/28/20 00:57 68 12/27/20 23:42 36.4 C L 68 18 113/62 99 12/27/20 23:10 64 16 93 (1) Respiratory failure Chronicity: acute on chronic Respiratory failure complication: hypoxia Qualified Code(s): J96.21 - Acute and chronic respiratory failure with hypoxia
[2020-12-28] MEDS: FLUTICASONE/VILANTEROL 200/25MCG 14 PUFFS/INHALER INH SCH (10:12)
[2020-12-28] MEDS: SPIRONOLACTONE 25 MG TAB PO SCH (10:13)
[2020-12-28] MEDS: DULoxetine HCL 60 MG CAP PO SCH (10:13)
[2020-12-28] MEDS: METOPROLOL SUCC 50MG EXT REL TAB PO SCH (10:13)
[2020-12-28] MEDS: ATORVASTATIN 40 MG TAB PO SCH (10:13)
[2020-12-28] MEDS: ISOSORBIDE MONO EXTENDED REL 30 MG TABCR PO SCH (10:13)
[2020-12-28] MEDS: ADVANCED PROBIOTIC 1250 MG CAPSULE PO SCH ×2 (10:14→13:08)
[2020-12-28] MEDS: GABAPENTIN 300 MG CAP PO SCH ×2 (10:14→13:08)
[2020-12-28] MEDS: VERAPAMIL HCL 40 MG TAB PO SCH ×3 (10:15→16:56)
--- NOTE | 2020-12-28 11:12 | Communication Note ---
Date of Service: December 28, 2020 spoke with GI attending Dr Carlson no plan for ERCP today , pt been on Plavix diet ordered discussed with Cardiology pt does not need to be on Plavix for cardiac stent -as coronary bare metal stent already > 5 months as opposed to drug eluting stents -need to be on aspirin and Plavix for at least 12 months Plavix on D.teofilo ERCP will be scheduled by GI team as out patient possibly at the end of this week , Diet ordered may discharge home today afternoon if pt feels ok Felicity Dallas MD
--- NOTE | 2020-12-28 13:19 | Cardiology Progress Note ---
Date of Service December 28, 2020 Assessment & Plan (1) Chronic diastolic heart failure: Patient is an extremely complex 60-year-old female with issues as outlined above. Her underlying cardiac issues notable for severe hypertrophic cardiomyopathy with extremely hyperdynamic LV systolic function but poor cardiac output secondary to small left upper cavity size. She has had ongoing issues with brittle diastolic dysfunction and easily exacerbated congestive heart failure with any physical or metabolic strain.. Presents now with acute febrile illness nausea vomiting and dyspnea. I suspect component of diastolic heart failure being driven by underlying illnesses. Concern raised regarding recent acute cholangitis. Patient currently comfortable for marked pulmonary and respiratory status using BiPAP as in past. Exam not consistent with severe volume overload. Troponins chronically elevated and flat no sign to suggest acute coronary syndrome. BNP is chronically elevated by past assessments. Recommendations: Acute diastolic heart failure being driven by acute illness and pain. Patient responded promptly to IV diuretics now euvolemic. Patient appears hemodynamically and volume status stable by exam. Well compensated with good respiratory status today. Patient back on oral medical regimen. Clopidogrel discontinued with no plans to restart at this time (2) Acute right flank pain: (3) Apical variant hypertrophic cardiomyopathy: (4) Cholelithiasis with acute cholangitis with biliary obstruction: (5) Elevated troponin: (6) Acute kidney injury superimposed on chronic kidney disease: Admission and Anticipated Discharge Date Admission Date: December 23, 2020 Subjective Patient seen and examined, chart, medications, telemetry reviewed. Cardiac status stable. No worsening shortness of breath chest pains dizziness or lightheadedness no telemetry abnormalities or arrhythmia No worsening abdominal pain or discomfort Review of Systems Review of Systems: All systems reviewed & are unremarkable except as noted in HPI & below Physical Exam Constitutional: WD/WN, vitals as above + obese; no acute distress Eyes: PERRL, conjunctivae normal, anicteric sclerae ENMT: external ear and nose normal, oropharynx normal Neck: trachea midline, no thyromegaly + thick neck Respiratory: normal respiratory effort, lungs clear to auscultation Auscultation: + diminished lung sounds; no rales Cardiovascular: Rate/Rhythm: regular rate and regular rhythm Heart Sounds: normal S1 and normal S2; no gallop and no murmur Palpation: normal PMI Vessels: normal carotid upstroke and radial pulses present; no JVD and no carotid bruit Extremities: no edema Gastrointestinal (Abdomen): normal bowel sounds, soft, nontender, no hepatosplenomegaly Musculoskeletal: no cyanosis or clubbing, extremities motor strength 5/5 Skin: no rashes, warm and dry Neurologic: PERRL, EOMI, accommodation nl, no face palsy, no dysarthria Psychiatric: A+Ox3, euthymic affect Orientation: alert and oriented x 3 Affect: + depressed affect Results & Data ([facility]) Vital Signs (Past 12 Hours) Vital Signs Temp Pulse Pulse Resp BP BP Pulse Ox 12/28/20 11:05 36.6 C 65 20 108/61 98 12/28/20 07:32 36.7 C 76 20 139/78 97 12/28/20 07:22 67 16 100 12/28/20 07:02 68 12/28/20 03:32 36.5 C 68 18 114/60 98 12/28/20 01:35 77 18 91
--- NOTE | 2020-12-28 13:26 | Discharge Summary ---
Date of Service December 28, 2020 Principal Diagnosis CHRONIC CHOLECYSTITIS S/P BILIARY STENT HYPERTROPHIC CARDIOMYOPATHY CKD stage 3 Discharge Exam Constitutional WD/WN, vitals as above Eyes PERRL, conjunctivae normal, anicteric sclerae ENMT external ear and nose normal, oropharynx normal Neck trachea midline, no thyromegaly Respiratory no respiratory distress and no cough Auscultation: + diminished lung sounds Cardiovascular Rate/Rhythm: regular rate and regular rhythm Gastrointestinal (Abdomen) Percussion/Palpation: abdomen soft; abdomen nontender (no rt upper quad tendernss noted ) Skin no rashes, warm and dry Neurologic PERRL, EOMI, accommodation nl, no face palsy, no dysarthria Psychiatric A+Ox3, euthymic affect Discharge Data Allergies Allergy/AdvReac Type Severity Reaction Status Date / Time Penicillins Allergy Intermediate Flushing, Verified 12/22/20 21:58 Itchiness Sulfa (Sulfonamide Allergy Intermediate Swelling Verified 12/22/20 21:58 Antibiotics) doxycycline Allergy Unknown Unknown Verified 12/22/20 21:58 adhesive AdvReac Intermediate Blistering Verified 12/22/20 21:58 morphine AdvReac Hallucinati Verified 12/22/20 21:59 ng Consultations 12/23/20 00:01 ED Decision to Admit Stat 12/23/20 02:23 Consult Case Management - Discharge Planning Routine 12/23/20 08:00 Consult Cardiology Routine 12/23/20 09:07 Consult Nephrology Routine 12/23/20 16:32 Consult Infectious Diseases Routine 12/26/20 16:04 Consult Gastroenterology Routine Ordered Studies 12/22/20 21:39 CT abd pelvis wo con Urgent 12/23/20 05:44 US venous doppler [facility] Urgent Hospital Course (1) Acute on chronic respiratory failure with hypoxia and hypercapnia: Acute on chronic cholangitis : in IV invanz no fever of chills /diet advanced tolerating well appreciate input from surgery pt was recently admitted to [facility] on Nov 2020 with acute cholangitis was treated conservatively with abx cholecystectomy was not done as deemed high risk for surgery given co- morbidities underwent ERCP by GI s/p biliary stent placement for gall bladder decompression CT abdomen /pelvis :this Admission Interval placement of two biliary stents which terminate within the duodenum with mild pneumobilia. The more proximal stent distal tip appears to tent the anterior duodenal wall or partially extends outside the lumen. No associated bowel wall thickening, inflammatory stranding or pneumoperitoneum. GI eval appreciate no need for inpatient ERCP , plan to discharge home today with PO ax ( levaquin /Flagyl -per ID recommendation ) ID , recommends to cont with IV invanz for now/will be changed to PO abx on discharge will need 10-14 days tx pt will eventually need cholecystectomy pt and her , are worried and concerned that her gall bladder infection will get worse after stopping antibiotic and will lead to hospital admission options of tx discussed with pt if pt continues to do well pt will need to follow up with general surgery at [facility] for elective cholecystectomy at tertiary center pt and her agreeable Acute and chronic hypoxic respiratory failure at baseline on 2 L 02 via nasal canula required Bipap on admission , IV Lasix for possible acute on chronic diastolic CHF respiratory status improved to baseline will be discharged on PO lasix remains on 2 L 02 via nasal canula CADENCE : continue Bipap at night /keeping it on for 3-4 hrs only pt was found to be confused and hypoxic while off Bipap at night counselling provided to utilize Bipap throughout the night to prevent resp failure /co2 retention / pt verbalized understanding Severe Hypertrophic Cardiomyopathy: hx of HOCM . appreciate input from cardiology avoid low vol status as it may worsen out flow obstruction cont Verapamil /Beta jorge for heart rate control due to complex cardiac hx , acute illness , pt needs to be monitored on tele Possible Pneumonia /present on admission 60 yo female presenting with increasing weakness, dyspnea and R flank/R upper abd pain. CXR and CT abd/pelvis with R lung base opacities suspicious for pneumonia vs aspiration pneumonia will be dischagred with OO levaon respiratory support with supplemental 02 /, DuoNeb, continue home INH Breo Ellipta, albuterol prn Acute renal failure on CKD stage 3-4 : appreciate input from Nephrology cr at baseline cont home diuretics Hypoglycemia : Type 2 DM insulin dependent resolved , BSG elevated as pt is tolerating diet possible due to poor po intake in setting of chronic cholangitis ordered insulins SSI appreciate input from diabetes educator pt has been having frequent hypoglycemic episodes at home Hb A1c home insulin dose will be reduced 50%on discharged will need to be followed up at [place] /diabetic clinic for further adjustment Full code Disposition: stable to be discharged home today Total Time Total Time Spent Total Time Spent (In Minutes): 3 minw Total Time Includes: Examination of the Patient, Discharge Planning and Medication Reconciliation Discharge Plan Discharge Items Patient Disposition: Home - Home Health Services Reason For Visit: SOB,RUQ ABD PAIN Discharge Diagnosis: CHRONIC CHOLECYSTITIS S/P BILIARY STENT HYPERTROPHIC CARDIOMYOPATHY CKD stage 3 Activity: Resume your previous activity Non-emergency contact: Primary Care Provider Call non-emergency contact if: you have any medication questions Follow-up/Referrals: Jeremiah Carlson MD [Physician] - (on Sunday12/30/20 as scheduled for biliary stent exchange ) Suad De León DO [Primary Care Provider] - (Date & Time 12/31/2020 10:00 AM Provider Suad De León DO Department [facility] ) Diet: Heart Healthy Addtl Attending Provider Instructions: Please take all medications as instructed on discharge list below. Do not take Plavix you are scheduled for ERCP on Sunday12/30/20 @ [facility] Can take aspirin tomorrow Stop taking Aspirin after Friday 12/29 Nothing by mouth after midnight on [facility] GI /anesthesia will contact you with detail instructions day before procedure You need to continue with antibiotic for 10 more days need to have a evaluation with General Surgery at [facility] for cholecystectomy please have referral and scheduled Surgery follow up through your family Physician office Your blood sugar level has been low frequently home insulin dose is reduced Novolog 70/30 : 30 units in AM/before breakfast ( was 55 units ) and 15 units in PM /before dinner ( was 25 units ) please check your blood sugar 2-3 times daily ( before breakfast ( fasting ) /before lunch and at bedtime and keep log/bring to your doctors visit DO NOT TAKE INSULIN IF YOUR BLOOD SUGAR LESS THAN 100 will need to be followed up at [facility] /diabetic clinic for further adjustment It is recommended that you follow-up with your primary care physician within 1-2 weeks of hospital discharge to ensure you are still doing well. It was a pleasure taking care of you! Please call if you have any questions or problems. You can reach a [facility] hospitalist on duty at [facility] 24 hours a day by calling [phone] Pending Studies at Discharge: No Stand-Alone Forms: My [facility] [id number], Smoking Cessation Medications and DC Order Prescriptions: New levofloxacin 500 mg tablet 500 mg PO DAILY 10 Days Qty: 10 RF: 0 metronidazole [Flagyl] 500 mg tablet 500 mg PO Q8H 10 Days Qty: 30 RF: 0 Continued duloxetine 60 mg Capsule,Delayed Release(Dr/Ec) 60 mg PO QAM RF: 0 folic acid 1 mg Tablet 1 mg PO HS RF: 0 sumatriptan succinate 25 mg Tablet 50 mg PO DIRECTED PRN (Reason: Migraine Headache) RF: 0 gabapentin 300 mg capsule 300 mg PO TID RF: 0 albuterol sulfate [Ventolin HFA] 90 mcg/actuation Hfa Aerosol Inhaler 2 puff INHALATION Q4H PRN (Reason: Wheezing) RF: 0 ondansetron 4 mg tablet,disintegrating 4 mg translingual Q8H PRN (Reason: Nausea) RF: 0 nitroglycerin [Nitrostat] 0.4 mg tablet, sublingual 0.4 mg sublingual DIRECTED PRN (Reason: Chest Pain) RF: 0 fluticasone propion-salmeterol [Advair Diskus] 500-50 mcg/dose Blister With Device 1 inh INHALATION BID RF: 0 spironolactone [Aldactone] 25 mg Tablet 25 mg PO QAM RF: 0 mirtazapine 45 mg Tablet 45 mg PO HS RF: 0 ropinirole 0.5 mg Tablet 0.5 mg PO HS RF: 0 atorvastatin [Lipitor] 40 mg tablet 40 mg PO QAM RF: 0 isosorbide mononitrate 30 mg Tablet Extended Release 24 Hr 30 mg PO QAM RF: 0 pantoprazole 40 mg Tablet,Delayed Release (Dr/Ec) 40 mg PO BID RF: 0 aspirin 81 mg Tablet,Chewable 81 mg PO DAILY RF: 0 Januvia 100 mg Tablet 100 mg PO DAILY RF: 0 Lactobacillus acidoph-L.bulgar [Floranex] 1 million cell Tablet 1 tab PO TID RF: 0 verapamil 40 mg Tablet 40 mg PO QID RF: 0 metformin 500 mg tablet 500 mg PO BID RF: 0 metoprolol succinate 50 mg Tablet Extended Release 24 Hr 50 mg PO BID Qty: 60 RF: 0 albuterol sulfate 2.5 mg /3 mL (0.083 %) solution for nebulization 3 ml Inhalation Q4H PRN (Reason: Wheezing) RF: 0 diphenoxylate-atropine [Lomotil] 2.5-0.025 mg Tablet 1 tab PO QID PRN (Reason: Diarrhea) RF: 0 torsemide 10 mg Tablet See Rx Instructions .ROUTE .COMPLEX RF: 0 budesonide 0.5 mg/2 mL suspension for nebulization 0.5 mg inhalation Q12 RF: 0 Changed insulin asp prt-insulin aspart [Novolog Mix 70-30FlexPen U-100] 100 unit/mL (70-30) insulin pen 30 unit SUBCUT DAILYBB Qty: 0 RF: 0 insulin asp prt-insulin aspart [Novolog Mix 70-30FlexPen U-100] 100 unit/mL (70-30) insulin pen 15 unit SUBCUT DAILYBD Qty: 0 RF: 0 Discontinued clopidogrel 75 mg Tablet 75 mg PO QAM Qty: 30 RF: 2 Discharge Orders: Discharge Order (Routine); Ordered 12/28/20 Ordered By: Felicity Dallas Admission Data Admit Date/Time: 12/23/20 01:29 Attending Provider: Felicity Dallas Admit Provider: Mikey Mayberry Primary Care Provider: Suad De León Other Providers: Mariana Emmanuel ; Mikey Mayberry ; Luther Verdugo ; Hammad Sandhu ; Sb Bruno ; Abdirahman Giles ; Brennan Grant ; Fredis Carlisle ; Sheryl Cabrera ; Francine Jackson ; Woody Corley ; Katie Estrella ; Usman Bennett ; Unique Ruiz ; Radha King ; Jake Worthy ; Prince Ashraf ; Duran Gross ; Johan Sampson ; Martell Christianson I. ; John Ellis II ; Lety Limon ; Fredis Toledo ; Osmin Gary ; Roseanna Merlos ; Ronal Berry ; Sheba Olson ; Jeremiah Carlson ; Kenneth Etseban ; Janell Lara ; Juan Pablo Cohn ; Ji Velze ; Vivien Carmona ; Yenni Suero ; Rachelle Melara ; Daria Carpenter ; Robert Gordon ; [facility] Healthcare Other Interventions: Discharge Summary Assessment (RN) Last Done: 12/28/20 14:30
--- NOTE | 2020-12-28 13:27 | XRay Report ---
XR chest 2V PA/lateral HISTORY: Shortness of breath. re-eval pulmonary congestion COMPARISON: Chest 12/23/2020. FINDINGS: No pneumothorax. Trace bilateral pleural effusions and mild pulmonary vascular congestion r emain unchanged. The heart remains enlarged. There is a right-sided pacemaker/defibrillator. Common b ile duct stents are partially visualized. IMPRESSION: No significant change in the cardiomegaly, trace bilateral pleural effusions, and mild congestive jn nge. ACT 112: Negative or not required by law. Electronically signed by: Serg Arias M.D. 12/28/2020 1:26 PM
--- NOTE | 2020-12-28 15:08 | Nephrology Progress Note ---
Date of Service December 28, 2020 Assessment & Plan (1) Acute kidney injury superimposed on chronic kidney disease: Patient with acute kidney injury on CKD likely cardiorenal syndrome. Baseline creatinine 1.2, better than baseline today. Peak creatinine this admission 1.7; some recent admissions past 2 mos w/ other OSBALDO episodes. Electrolytes on most recent check had been stable and no signs of volume overload. -she has 2/16 f/u appt w/ me which she should keep; will repeat bmp at that OV -d/c on current diuretics po (2) Acute on chronic diastolic heart failure: Patient admitted with acute CHF exacerbation. She improved with IV Lasix. She is now on Demadex 10 mg T, W, F , Sa; 20 mg hamm, mon, and Aldactone 25 mg daily. She appears euvolemic. -Continue current diuretics -Low-salt diet (3) Anemia: Hemoglobin of 8.6 today which is likely exacerbating her respiratory symptoms. Transferrin saturation of 8%. Patient would benefit from Venofer once abd infection concerns suffciently treated. Patient needs renal follow-up on discharge w/ Dr Estrella - will discuss venofer then Care coordinated w/ DR Dallas Admission and Anticipated Discharge Date Admission Date: December 23, 2020 Subjective did well overnight; for OP ERCP late this week. no edema, worsening abd pain, new/worrisome voiding or breathing concerns. like yesterday, CC is profound fatigue Review of Systems Review of Systems: All systems reviewed & are unremarkable except as noted in Subjective Physical Exam Constitutional: well developed and well nourished; no acute distress Eyes: EOM intact bilaterally ENMT: Ears: no external ear abnormality Nose: no external nose abnormality Mouth: + dry oral mucous membranes Neck: no nuchal rigidity Respiratory: normal respiratory effort Auscultation: lungs clear to auscultation bilaterally and + diminished lung sounds Cardiovascular: Rate/Rhythm: regular rate and regular rhythm Extremities: no edema Gastrointestinal (Abdomen): Inspection/Auscultation: normal bowel sounds Percussion/Palpation: abdomen soft; abdomen nontender Musculoskeletal: no cyanosis or clubbing, extremities motor strength 5/5 Extremities: strength 5/5 throughout Skin: no rashes, warm and dry Psychiatric: Orientation: alert and oriented x 3 Speech: normal rate/rhythm/volume of speech Affect: + flat affect Results & Data ([facility]) Vital Signs (Past 12 Hours) Vital Signs Temp Pulse Pulse Resp BP BP Pulse Ox 12/28/20 14:30 36.6 C 65 20 108/61 114/60 98 12/28/20 11:05 36.6 C 65 20 108/61 98 12/28/20 07:32 36.7 C 76 20 139/78 97 12/28/20 07:22 67 16 100 12/28/20 07:02 68 12/28/20 03:32 36.5 C 68 18 114/60 98 Laboratory Results 12/27/20 07:09 12/28/20 07:42
[2020-12-28] MEDS ORDERED: levoFLOXacin 500 MG TAB PO STA (17:00)
[2020-12-28] MEDS ORDERED: metroNIDAZOLE 500 MG TAB PO STA (17:00)
== END 2020-12-28 18:11 | disposition home health service (06) | DRG 193 ==
LOC: ED 19:58 → 2S 12-23 01:29 → SUATTDRO 12-23 01:29 → 2S 12-23 02:19 → 2W 12-24 18:18

== ENCOUNTER 2021-01-04 17:57 | Inpatient (IN) ==
[~2021-01-04 17:57] MED LIST changes: +AMIODARONE HCL INJ 50 MG/ML 3 ML VIAL IV ONE; +CALCIUM CHLORIDE 10% 10 ML SYR IV ONE; -CLC150 PO; +DEXTROSE 5% 100 ML BAG IV ONE; -DIPH-416 PO; -ESCI1TAB6 PO; -FLVHFA44 INH; -LCTX PO; +MAG SULFATE 50% 1GM/2ML VIAL IV ONE; +MAGNESIUM SULFATE 1GM / D5W BAG IV ONE; -METF-841 PO; -METO25TA4 PO; -MIRT30TA2 PO; -OMEP40CA41 PO; -ROPI0.5T PO; +SODIUM BICARB 8.4% INJ 50 MEQ/50 ML SYR IV ONE; +SODIUM CHLORIDE 0.9% 10ML FLUSH IV ONE; +SODIUM CHLORIDE 0.9% INJ 10 ML VIAL IV ONE; -SUMA25TA PO; -ZLF/100 PO
--- NOTE | 2021-01-04 18:23 | Emergency Department Note ---
History of Present Illness General Chief complaint: Hypoglycemia Stated complaint: AMS, HYPOGLYCEMIA, BACK PAIN Time Seen by Provider: 01/04/21 18:00 Source: patient Mode of arrival: EMS Limitations: no limitations History of Present Illness Provider complaint: Altered mental status, hypoglycemia Onset (ago): hour(s) Location: abdomen Radiation: back Severity: moderate and similar to prior episodes Pain Consistency: + constant Maximum Pain Intensity: 7 Quality: + constant Relieved By: + none Exacerbated By: + none Associated symptoms: + cough, + malaise and + shortness of breath; no chest pain This is a 60-year-old female who presents due to an episode of altered mental status and hypoglycemia. Per nursing report from EMS patient called 911 from home at insistence of the home health aide who came to check on her. EMS found patient's blood sugar to be 55 and did give her dextrose prior to arrival. Patient states she felt improved following this. Patient states her sugar earlier today was 135, however she has had multiple prior episodes of a rapid drop in her sugar leading to altered mentation. Patient states she noticed that she was hallucinating earlier, however states this has been going on for approximately the last 4 to 6 months also. Patient states she recognizes that some things are happening that are not real and not there. Patient states she was recently hospitalized several times and had stents placed in her gallbladder and then the stents have subsequently been removed. Patient states she is still taking antibiotics related to this as well as a lung infection that was found at the same time. Patient states she wears oxygen chronically, however has felt increasingly short of breath, which is worse with exertion and lying flat. Patient states she has a history of heart problems, kidney problems in addition. Patient states she was told that she is not a good candidate to have her gallbladder surgically removed. Patient states she was recently tested for Covid and was found to be negative. Patient states she does have a history of urinary tract infections, states she has not been urinating much recently, and does take a water pill daily. Patient denies any change in bowel movements. Patient states she has intermittently had a "low-grade fever" that she states has been 99. Patient denies any change in the color of her sputum. Patient states she has had chronic right mid and right lower abdominal pain that occasionally wraps around radiating into her back. Patient states this has been going on for at least a year. Patient states she cannot pinpoint a trigger or pattern to these episodes. Patient states she has not been taking any pain medications secondary to her recent procedures. Pt seen during a time of high acuity and national emergency pandemic while wearing PPE. Home Medications Medication Instructions Recorded Confirmed Type duloxetine 60 mg PO QAM 08/09/18 01/04/21 History folic acid 1 mg PO HS 08/09/18 01/04/21 History sumatriptan succinate 50 mg PO DIRECTED PRN 08/09/18 01/04/21 History albuterol sulfate 3 ml INHALATION Q4H PRN 09/09/18 01/04/21 History diphenoxylate-atropine [Lomotil] 1 tab PO QID PRN 12/19/18 01/04/21 History albuterol sulfate [Ventolin HFA] 2 puff INHALATION Q4H PRN 06/30/19 01/04/21 History fluticasone propion-salmeterol 1 inh INHALATION BID 06/30/19 01/04/21 History [Advair Diskus] gabapentin 300 mg PO TID 06/30/19 01/04/21 History nitroglycerin [Nitrostat] 0.4 mg SUBLINGUAL DIRECTED PRN 06/30/19 01/04/21 History ondansetron 4 mg TRANSLINGUAL Q8H PRN 06/30/19 01/04/21 History spironolactone [Aldactone] 12.5 mg PO QAM 06/30/19 01/04/21 History mirtazapine 45 mg PO HS 09/25/19 01/04/21 History budesonide 0.5 mg INHALATION Q12H 01/13/20 01/04/21 History torsemide See Rx Instructions .ROUTE .COMPLEX 01/13/20 01/04/21 History atorvastatin [Lipitor] 40 mg PO QAM 04/30/20 01/04/21 History Januvia 100 mg PO DAILY 07/28/20 01/04/21 History Lactobacillus acidoph-L.bulgar 1 tab PO TID 07/28/20 01/04/21 History [Floranex] aspirin 81 mg PO DAILY 07/28/20 01/04/21 History isosorbide mononitrate 30 mg PO QAM 07/28/20 01/04/21 History pantoprazole 40 mg PO BID 07/28/20 01/04/21 History verapamil 40 mg PO QID 11/16/20 01/04/21 History metformin 500 mg PO BIDM 12/07/20 01/04/21 History insulin asp prt-insulin aspart 15 unit SUBCUT DAILYBD #0 ml 12/28/20 01/04/21 Rx [Novolog Mix 70-30FlexPen U-100] insulin asp prt-insulin aspart 30 unit SUBCUT DAILYBB #0 ml 12/28/20 01/04/21 Rx [Novolog Mix 70-30FlexPen U-100] levofloxacin 500 mg PO DAILY 10 Days #10 tab 12/28/20 01/04/21 Rx metronidazole [Flagyl] 500 mg PO Q8H 10 Days #30 tab 12/28/20 01/04/21 Rx diclofenac sodium 1 applic TOPICAL BID 01/04/21 01/04/21 History metoprolol succinate 100 mg PO BID 01/04/21 01/04/21 History trazodone 50 mg PO HS 01/04/21 01/04/21 History Allergies Allergy/AdvReac Type Severity Reaction Status Date / Time Penicillins Allergy Intermediate Flushing, Verified 12/22/20 21:58 Itchiness Sulfa (Sulfonamide Allergy Intermediate Swelling Verified 12/22/20 21:58 Antibiotics) doxycycline Allergy Unknown Unknown Verified 12/22/20 21:58 adhesive AdvReac Intermediate Blistering Verified 12/22/20 21:58 morphine AdvReac Hallucinati Verified 12/22/20 21:59 ng Past Med/Surg History Medical History (Updated 01/04/21 @ 21:48 by Francesca Marques DO) Anxiety Arthritis Asthma Cardiac defibrillator in place 2014 CHF (congestive heart failure) CKD (chronic kidney disease), stage III COPD (chronic obstructive pulmonary disease) Depression Depression with anxiety Diabetes mellitus, type 2 Elevated troponin Elevated troponin Fatty (change of) liver, not elsewhere classified GERD (gastroesophageal reflux disease) Headache HLD (hyperlipidemia) Hydronephrosis of right kidney Hypertension Hypertrophic cardiomyopathy Hypocalcemia Hypoglycemia Hypomagnesemia CADENCE (obstructive sleep apnea) on nocturnal O2 2L Pancreatic cyst Restless leg syndrome Surgical History H/O section 1979 & 1982 H/O hernia repair 2016 History of appendectomy 1970s History of colostomy reversal bowel perf 2014 with colostomy reversed in 2014 Status post internal cardiac defibrillator procedure "2015" Status post partial resection of colon "diverticulitis 11/05/14" Family History Other Hypertrophic cardiomyopathy Stomach cancer Thyroid disorder Social History Smoking Status: Never smoker Second Hand Exposure: No; Hx Alcohol Use: No Hx Substance Use: No Preferred Language: Romanian Communication Ability: Effective Broom Maker Required: No Beliefs That Will Affect Care: None marital status: Current Living Situation: Spouse and Family 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 and A total of 10 systems reviewed and were otherwise negative Physical Exam Vital Signs Vital Signs - 24 hr 01/04/21 18:08 01/04/21 18:37 01/04/21 19:45 Temperature 36.7 C Temperature Source Oral Pulse Rate 78 71 Pulse Rate [Left Finger] Pulse Rate from SpO2 Sensor 70 Respiratory Rate 22 24 Respiratory Effort / Characteristics Non-Labored Spontaneous Non-Labored Respiratory Depth Normal Respiratory Pattern Regular Blood Pressure 152/64 H 160/120 H Blood Pressure Mean 93 133 Blood Pressure Position Lying Pulse Oximetry 95 95 90 Oxygen Delivery Method Nasal Cannula Room Air Nasal Cannula Oxygen Flow Rate 3 3 Fraction of Inspired Oxygen Sepsis Recent Fever Within 48 Hours No Sepsis New/Unexplained Change in Mental Status N/A Sepsis Action Taken by Nursing No Action Required 01/04/21 19:53 01/04/21 20:15 01/04/21 20:30 Temperature Temperature Source Pulse Rate 73 73 71 Pulse Rate [Left Finger] Pulse Rate from SpO2 Sensor 77 74 71 Respiratory Rate 20 29 H 24 Respiratory Effort / Characteristics Respiratory Depth Respiratory Pattern Blood Pressure 115/86 143/99 H 120/96 Blood Pressure Mean 95 113 104 Blood Pressure Position Pulse Oximetry 92 99 100 Oxygen Delivery Method Nasal Cannula Nasal Cannula High Flow Nasal Cannula Nasal Cannula Oxygen Flow Rate 3 3 3 Fraction of Inspired Oxygen Sepsis Recent Fever Within 48 Hours Sepsis New/Unexplained Change in Mental Status Sepsis Action Taken by Nursing 01/04/21 20:38 01/04/21 21:01 01/04/21 21:32 Temperature Temperature Source Pulse Rate 69 68 Pulse Rate [Left Finger] 70 Pulse Rate from SpO2 Sensor 70 69 Respiratory Rate 26 H 28 H 29 H Respiratory Effort / Characteristics Spontaneous Labored Short of Breath Respiratory Depth Respiratory Pattern Blood Pressure 122/89 148/61 H Blood Pressure Mean 100 90 Blood Pressure Position Pulse Oximetry 97 100 100 Oxygen Delivery Method High Flow Nasal Cannula High Flow Nasal Cannula High Flow Nasal Cannula Oxygen Flow Rate 35 Fraction of Inspired Oxygen 50 Sepsis Recent Fever Within 48 Hours Sepsis New/Unexplained Change in Mental Status Sepsis Action Taken by Nursing GENERAL: alert, well appearing, well nourished, no distress, non-toxic, obese, nasal cannula in place EYE EXAM: normal conjunctiva, PERRL and EOM's grossly intact OROPHARYNX: no exudate, no erythema, lips, buccal mucosa, and tongue normal and mucous membranes are moist NECK: supple, no nuchal rigidity, no adenopathy, non-tender LUNGS: Clear to auscultation. Normal chest wall mechanics, no w/r/r, mild tachypnea, increased work of breathing, conversational dyspnea HEART: no murmurs, S1 normal and S2 normal ABDOMEN: abdomen soft, non-tender, normo-active bowel sounds, no masses, no rebound or guarding. No reproducible pain with palpation of the right mid and right lower abdomen. Several well-healed surgical scars noted including a vertical midline incision BACK: Back is symmetrical on inspection and there is no deformity, no midline tenderness, no CVA tenderness. SKIN: no rashes and no bruising UPPER EXTREMITIES: upper extremities are grossly normal. FROM, nml pulses b/l. LOWER EXTREMITIES: No pitting edema. FROM, nml pulses b/l. NEURO EXAM: Normal sensorium, cranial nerves II-XII grossly intact, normal speech, no gross weakness of arms, no gross weakness of legs. Gross sensation intact. Course Course 182: Brief review of EMR reveals recent admission for ascending cholangitis following placement of 2 biliary stents during ERCP. There is also mention of the finding of pneumonia and unclear etiology including possible aspiration due to the procedure. Patient was discharged on levofloxacin and metronidazole. Patient with a history of cardiomyopathy. Considered high risk for any surgical procedure due to multiple medical problems and history of respiratory failure. 1929: Repeat BSG 49, pt now more confused. 2015: Patient's respiratory rate and work of breathing have increased. Patient states she did not tolerate BiPAP previously as it made her claustrophobic. Will discuss high flow nasal cannula with RT. 2030: Glucose now dropped again compared to after dextrose, in normal range but patient slightly confused. 2105: On observing the patient outside her room, she appears to be attempting to feed herself however there is no food in her hand or mouth. Patient states she is eating, appears delirious. 2124: Case discussed with Dr. Main. Administered Medications Discontinued Medications Dextrose (Dextrose 50% 50 Ml Syringe) 50 ml IV NOW ONE Stop: 01/04/21 19:32 Last Admin: 01/04/21 19:36 Dose: 50 ml Documented by: [id number] Magnesium Sulfate/Dextrose (Magnesium Sulfate / D5w) 1 gm in 100 mls @ 100 mls/hr IV Q1H MARILEE Stop: 01/04/21 21:23 Last Admin: 01/04/21 21:13 Dose: 100 mls/hr Documented by: [id number] Infusion: 01/04/21 21:10 Dose: 0 mls/hr Documented by: [id number] Admin: 01/04/21 19:38 Dose: 100 mls/hr Documented by: [id number] Dextrose/Sodium Chloride (D5w And 1/2nss) 1,000 mls @ 125 mls/hr IV .Q8H MARILEE Stop: 02/03/21 21:14 Last Admin: 01/04/21 21:20 Dose: 125 mls/hr Documented by: [id number] Critical Care Time Critical Care Time: Yes Total Critical Care Time: 35 Critical care of 35 min performed to assess and manage high likelihood of life- threatening ams and hypoglycemia, involving labs and imaging performed with assessment to evaluate ams and hypoglycemia diagnosis with frequent reasses sment. This time includes bedside time, treatment discussions with patient/family/consultants, documentation time and excludes procedure time. Medical Decision Making Differential Diagnosis Differential diagnoses includes but is not limited to toxic, metabolic, infectious, traumatic, cardiac, neurologic, hematologic, psychiatric and inflammatory etiologies. Medical Records Attestation: I reviewed the patient's medical records. Home Medications Current Medication List: was personally reviewed by me Laboratory Data Attestation: I reviewed the patient's lab results. Result diagrams: 01/04/21 18:31 01/04/21 18:31 Lab Results 01/04/21 01/04/21 01/04/21 Range/Units 18:16 18:31 18:31 WBC 10.89 H (4.8-10.8) K/uL RBC 3.81 L (4.2-5.4) M/uL Hgb 8.9 L (12.0-16.0) g/dL Hct 30.1 L (37-47) % MCV 79.0 L (80-100) fL MCH 23.4 L (25-34) pg MCHC 29.6 L (32-36) g/dL RDW Std Deviation 59.7 H (36.4-46.3) fL RDW Coeff of Rolan 20.6 H (11.5-14.5) % Plt Count 230 (130-400) K/uL MPV 9.7 (7.4-10.4) fL Immature Gran % (Auto) 0.2 % Neut % (Auto) 81.6 % Lymph % (Auto) 9.3 % [place] % (Auto) 7.2 % Eos % (Auto) 1.5 % Baso % (Auto) 0.2 % Neut # (Auto) 8.90 H (1.4-6.5) K/uL Lymph # (Auto) 1.01 L (1.2-3.4) K/uL [place] # (Auto) 0.78 H (0.11-0.59) K/uL Eos # (Auto) 0.16 (0-0.5) K/uL Baso # (Auto) 0.02 (0-0.2) K/uL Immature Gran # (Auto) 0.02 (0.00-0.02) K/uL Polychromasia 1+ Hypochromasia Present Anisocytosis Present Tear Drop Cells Occasional Ovalocytes 1+ PT 12.6 H (9.0-12.0) Seconds INR 1.3 H (0.9-1.1) APTT 26.0 (21.0-31.0) Seconds PTT Ratio 1.0 ABG pH (7.35-7.45) ABG pCO2 (35-46) mmHg ABG pO2 (80-95) mmHg ABG HCO3 (19-24) mmol/L ABG O2 Saturation (90-95) % ABG Base Excess (-9-1.8) mEq/L Rambo Test (Pos) Barometric Pressure mm/Hg Oxygen Given Sodium (136-145) mmol/L Potassium (3.5-5.1) mmol/L Chloride (98-107) mmol/L Carbon Dioxide (21-32) mmol/L Anion Gap (3-11) BUN (7-18) mg/dl Creatinine (0.6-1.2) mg/dl Est Cr Clr Drug Dosing ml/min Est GFR ( Amer) Est GFR (Non-Af Amer) BUN/Creatinine Ratio (10-20) Glucose (70-99) mg/dl POC Glucose 72 (70-99) mg/dl Lactate (0.4-2.0) mmol/L Calcium (8.5-10.1) mg/dl Magnesium (1.8-2.4) mg/dl Total Bilirubin (0.2-1) mg/dl AST (15-37) U/L ALT (12-78) U/L Alkaline Phosphatase (45-117) U/L Ammonia (11-32) umol/L Troponin I (0-0.045) ng/ml NT-Pro-B Natriuret Pep (0-900) pg/ml Total Protein (6.4-8.2) gm/dl Albumin (3.4-5.0) gm/dl Globulin (2.5-4.0) gm/dl Albumin/Globulin Ratio (0.9-2) Lipase (73-393) U/L Procalcitonin (0-0.5) ng/ml Urine Color Urine Appearance (Clear) Urine pH (4.5-7.5) Ur Specific [place] (1.000-1.030) Urine Protein (Negative) Urine Glucose (UA) (Negative) Urine Ketones (Negative) Urine Blood (Negative) Urine Nitrite (Negative) Urine Bilirubin (Negative) Urine Urobilinogen (Negative) Ur Leukocyte Esterase (Negative) COVID-19 Eval Order SARS-CoV-2, RNA, NAAT (NEGATIVE) 01/04/21 01/04/21 01/04/21 Range/Units 18:31 18:31 18:31 WBC (4.8-10.8) K/uL RBC (4.2-5.4) M/uL Hgb (12.0-16.0) g/dL Hct (37-47) % MCV (80-100) fL MCH (25-34) pg MCHC (32-36) g/dL RDW Std Deviation (36.4-46.3) fL RDW Coeff of Rolan (11.5-14.5) % Plt Count (130-400) K/uL MPV (7.4-10.4) fL Immature Gran % (Auto) % Neut % (Auto) % Lymph % (Auto) % [place] % (Auto) % Eos % (Auto) % Baso % (Auto) % Neut # (Auto) (1.4-6.5) K/uL Lymph # (Auto) (1.2-3.4) K/uL [place] # (Auto) (0.11-0.59) K/uL Eos # (Auto) (0-0.5) K/uL Baso # (Auto) (0-0.2) K/uL Immature Gran # (Auto) (0.00-0.02) K/uL Polychromasia Hypochromasia Anisocytosis Tear Drop Cells Ovalocytes PT (9.0-12.0) Seconds INR (0.9-1.1) APTT (21.0-31.0) Seconds PTT Ratio ABG pH (7.35-7.45) ABG pCO2 (35-46) mmHg ABG pO2 (80-95) mmHg ABG HCO3 (19-24) mmol/L ABG O2 Saturation (90-95) % ABG Base Excess (-9-1.8) mEq/L Rambo Test (Pos) Barometric Pressure mm/Hg Oxygen Given Sodium 140 (136-145) mmol/L Potassium 3.5 (3.5-5.1) mmol/L Chloride 104 (98-107) mmol/L Carbon Dioxide 30 (21-32) mmol/L Anion Gap 6.0 (3-11) BUN 46 H (7-18) mg/dl Creatinine 1.80 H (0.6-1.2) mg/dl Est Cr Clr Drug Dosing 30.4 ml/min Est GFR ( Amer) 34.4 Est GFR (Non-Af Amer) 29.6 BUN/Creatinine Ratio 25.6 H (10-20) Glucose 55 L (70-99) mg/dl POC Glucose (70-99) mg/dl Lactate 2.2 H* (0.4-2.0) mmol/L Calcium 8.6 (8.5-10.1) mg/dl Magnesium 1.5 L (1.8-2.4) mg/dl Total Bilirubin 0.5 (0.2-1) mg/dl AST 19 (15-37) U/L ALT 23 (12-78) U/L Alkaline Phosphatase 182 H (45-117) U/L Ammonia (11-32) umol/L Troponin I 0.141 H* (0-0.045) ng/ml NT-Pro-B Natriuret Pep 5876 H (0-900) pg/ml Total Protein 6.7 (6.4-8.2) gm/dl Albumin 3.4 (3.4-5.0) gm/dl Globulin 3.3 (2.5-4.0) gm/dl Albumin/Globulin Ratio 1.0 (0.9-2) Lipase 111 (73-393) U/L Procalcitonin 0.19 (0-0.5) ng/ml Urine Color Urine Appearance (Clear) Urine pH (4.5-7.5) Ur Specific [place] (1.000-1.030) Urine Protein (Negative) Urine Glucose (UA) (Negative) Urine Ketones (Negative) Urine Blood (Negative) Urine Nitrite (Negative) Urine Bilirubin (Negative) Urine Urobilinogen (Negative) Ur Leukocyte Esterase (Negative) COVID-19 Eval Order SARS-CoV-2, RNA, NAAT (NEGATIVE) 01/04/21 01/04/21 01/04/21 Range/Units 18:31 18:46 19:28 WBC (4.8-10.8) K/uL RBC (4.2-5.4) M/uL Hgb (12.0-16.0) g/dL Hct (37-47) % MCV (80-100) fL MCH (25-34) pg MCHC (32-36) g/dL RDW Std Deviation (36.4-46.3) fL RDW Coeff of Rolan (11.5-14.5) % Plt Count (130-400) K/uL MPV (7.4-10.4) fL Immature Gran % (Auto) % Neut % (Auto) % Lymph % (Auto) % [place] % (Auto) % Eos % (Auto) % Baso % (Auto) % Neut # (Auto) (1.4-6.5) K/uL Lymph # (Auto) (1.2-3.4) K/uL [place] # (Auto) (0.11-0.59) K/uL Eos # (Auto) (0-0.5) K/uL Baso # (Auto) (0-0.2) K/uL Immature Gran # (Auto) (0.00-0.02) K/uL Polychromasia Hypochromasia Anisocytosis Tear Drop Cells Ovalocytes PT (9.0-12.0) Seconds INR (0.9-1.1) APTT (21.0-31.0) Seconds PTT Ratio ABG pH 7.38 (7.35-7.45) ABG pCO2 46 (35-46) mmHg ABG pO2 91 (80-95) mmHg ABG HCO3 27 H (19-24) mmol/L ABG O2 Saturation 97.0 H (90-95) % ABG Base Excess 1.3 (-9-1.8) mEq/L Rambo Test Pos (Pos) Barometric Pressure 731.1 mm/Hg Oxygen Given 3% Sodium (136-145) mmol/L Potassium (3.5-5.1) mmol/L Chloride (98-107) mmol/L Carbon Dioxide (21-32) mmol/L Anion Gap (3-11) BUN (7-18) mg/dl Creatinine (0.6-1.2) mg/dl Est Cr Clr Drug Dosing ml/min Est GFR ( Amer) Est GFR (Non-Af Amer) BUN/Creatinine Ratio (10-20) Glucose (70-99) mg/dl POC Glucose 40 L* (70-99) mg/dl Lactate (0.4-2.0) mmol/L Calcium (8.5-10.1) mg/dl Magnesium (1.8-2.4) mg/dl Total Bilirubin (0.2-1) mg/dl AST (15-37) U/L ALT (12-78) U/L Alkaline Phosphatase (45-117) U/L Ammonia 34.0 H (11-32) umol/L Troponin I (0-0.045) ng/ml NT-Pro-B Natriuret Pep (0-900) pg/ml Total Protein (6.4-8.2) gm/dl Albumin (3.4-5.0) gm/dl Globulin (2.5-4.0) gm/dl Albumin/Globulin Ratio (0.9-2) Lipase (73-393) U/L Procalcitonin (0-0.5) ng/ml Urine Color Urine Appearance (Clear) Urine pH (4.5-7.5) Ur Specific [place] (1.000-1.030) Urine Protein (Negative) Urine Glucose (UA) (Negative) Urine Ketones (Negative) Urine Blood (Negative) Urine Nitrite (Negative) Urine Bilirubin (Negative) Urine Urobilinogen (Negative) Ur Leukocyte Esterase (Negative) COVID-19 Eval Order SARS-CoV-2, RNA, NAAT (NEGATIVE) 01/04/21 01/04/21 01/04/21 Range/Units 19:29 19:48 19:50 WBC (4.8-10.8) K/uL RBC (4.2-5.4) M/uL Hgb (12.0-16.0) g/dL Hct (37-47) % MCV (80-100) fL MCH (25-34) pg MCHC (32-36) g/dL RDW Std Deviation (36.4-46.3) fL RDW Coeff of Rolan (11.5-14.5) % Plt Count (130-400) K/uL MPV (7.4-10.4) fL Immature Gran % (Auto) % Neut % (Auto) % Lymph % (Auto) % [place] % (Auto) % Eos % (Auto) % Baso % (Auto) % Neut # (Auto) (1.4-6.5) K/uL Lymph # (Auto) (1.2-3.4) K/uL [place] # (Auto) (0.11-0.59) K/uL Eos # (Auto) (0-0.5) K/uL Baso # (Auto) (0-0.2) K/uL Immature Gran # (Auto) (0.00-0.02) K/uL Polychromasia Hypochromasia Anisocytosis Tear Drop Cells Ovalocytes PT (9.0-12.0) Seconds INR (0.9-1.1) APTT (21.0-31.0) Seconds PTT Ratio ABG pH (7.35-7.45) ABG pCO2 (35-46) mmHg ABG pO2 (80-95) mmHg ABG HCO3 (19-24) mmol/L ABG O2 Saturation (90-95) % ABG Base Excess (-9-1.8) mEq/L Rambo Test (Pos) Barometric Pressure mm/Hg Oxygen Given Sodium (136-145) mmol/L Potassium (3.5-5.1) mmol/L Chloride (98-107) mmol/L Carbon Dioxide (21-32) mmol/L Anion Gap (3-11) BUN (7-18) mg/dl Creatinine (0.6-1.2) mg/dl Est Cr Clr Drug Dosing ml/min Est GFR ( Amer) Est GFR (Non-Af Amer) BUN/Creatinine Ratio (10-20) Glucose (70-99) mg/dl POC Glucose 49 L* 206 H 206 H (70-99) mg/dl Lactate (0.4-2.0) mmol/L Calcium (8.5-10.1) mg/dl Magnesium (1.8-2.4) mg/dl Total Bilirubin (0.2-1) mg/dl AST (15-37) U/L ALT (12-78) U/L Alkaline Phosphatase (45-117) U/L Ammonia (11-32) umol/L Troponin I (0-0.045) ng/ml NT-Pro-B Natriuret Pep (0-900) pg/ml Total Protein (6.4-8.2) gm/dl Albumin (3.4-5.0) gm/dl Globulin (2.5-4.0) gm/dl Albumin/Globulin Ratio (0.9-2) Lipase (73-393) U/L Procalcitonin (0-0.5) ng/ml Urine Color Urine Appearance (Clear) Urine pH (4.5-7.5) Ur Specific [place] (1.000-1.030) Urine Protein (Negative) Urine Glucose (UA) (Negative) Urine Ketones (Negative) Urine Blood (Negative) Urine Nitrite (Negative) Urine Bilirubin (Negative) Urine Urobilinogen (Negative) Ur Leukocyte Esterase (Negative) COVID-19 Eval Order SARS-CoV-2, RNA, NAAT (NEGATIVE) 01/04/21 01/04/21 01/04/21 Range/Units 19:55 19:55 20:20 WBC (4.8-10.8) K/uL RBC (4.2-5.4) M/uL Hgb (12.0-16.0) g/dL Hct (37-47) % MCV (80-100) fL MCH (25-34) pg MCHC (32-36) g/dL RDW Std Deviation (36.4-46.3) fL RDW Coeff of Rolan (11.5-14.5) % Plt Count (130-400) K/uL MPV (7.4-10.4) fL Immature Gran % (Auto) % Neut % (Auto) % Lymph % (Auto) % [place] % (Auto) % Eos % (Auto) % Baso % (Auto) % Neut # (Auto) (1.4-6.5) K/uL Lymph # (Auto) (1.2-3.4) K/uL [place] # (Auto) (0.11-0.59) K/uL Eos # (Auto) (0-0.5) K/uL Baso # (Auto) (0-0.2) K/uL Immature Gran # (Auto) (0.00-0.02) K/uL Polychromasia Hypochromasia Anisocytosis Tear Drop Cells Ovalocytes PT (9.0-12.0) Seconds INR (0.9-1.1) APTT (21.0-31.0) Seconds PTT Ratio ABG pH (7.35-7.45) ABG pCO2 (35-46) mmHg ABG pO2 (80-95) mmHg ABG HCO3 (19-24) mmol/L ABG O2 Saturation (90-95) % ABG Base Excess (-9-1.8) mEq/L Rambo Test (Pos) Barometric Pressure mm/Hg Oxygen Given Sodium (136-145) mmol/L Potassium (3.5-5.1) mmol/L Chloride (98-107) mmol/L Carbon Dioxide (21-32) mmol/L Anion Gap (3-11) BUN (7-18) mg/dl Creatinine (0.6-1.2) mg/dl Est Cr Clr Drug Dosing ml/min Est GFR ( Amer) Est GFR (Non-Af Amer) BUN/Creatinine Ratio (10-20) Glucose (70-99) mg/dl POC Glucose (70-99) mg/dl Lactate (0.4-2.0) mmol/L Calcium (8.5-10.1) mg/dl Magnesium (1.8-2.4) mg/dl Total Bilirubin (0.2-1) mg/dl AST (15-37) U/L ALT (12-78) U/L Alkaline Phosphatase (45-117) U/L Ammonia (11-32) umol/L Troponin I (0-0.045) ng/ml NT-Pro-B Natriuret Pep (0-900) pg/ml Total Protein (6.4-8.2) gm/dl Albumin (3.4-5.0) gm/dl Globulin (2.5-4.0) gm/dl Albumin/Globulin Ratio (0.9-2) Lipase (73-393) U/L Procalcitonin (0-0.5) ng/ml Urine Color Yellow Urine Appearance Clear (Clear) Urine pH 5.0 (4.5-7.5) Ur Specific [place] 1.013 (1.000-1.030) Urine Protein Negative (Negative) Urine Glucose (UA) Negative (Negative) Urine Ketones Negative (Negative) Urine Blood Negative (Negative) Urine Nitrite Negative (Negative) Urine Bilirubin Negative (Negative) Urine Urobilinogen Negative (Negative) Ur Leukocyte Esterase Negative (Negative) COVID-19 Eval Order Covid19 [facility] SARS-CoV-2, RNA, NAAT NEGATIVE (NEGATIVE) 01/04/21 01/04/21 01/04/21 Range/Units 20:29 20:34 21:04 WBC (4.8-10.8) K/uL RBC (4.2-5.4) M/uL Hgb (12.0-16.0) g/dL Hct (37-47) % MCV (80-100) fL MCH (25-34) pg MCHC (32-36) g/dL RDW Std Deviation (36.4-46.3) fL RDW Coeff of Rolan (11.5-14.5) % Plt Count (130-400) K/uL MPV (7.4-10.4) fL Immature Gran % (Auto) % Neut % (Auto) % Lymph % (Auto) % [place] % (Auto) % Eos % (Auto) % Baso % (Auto) % Neut # (Auto) (1.4-6.5) K/uL Lymph # (Auto) (1.2-3.4) K/uL [place] # (Auto) (0.11-0.59) K/uL Eos # (Auto) (0-0.5) K/uL Baso # (Auto) (0-0.2) K/uL Immature Gran # (Auto) (0.00-0.02) K/uL Polychromasia Hypochromasia Anisocytosis Tear Drop Cells Ovalocytes PT (9.0-12.0) Seconds INR (0.9-1.1) APTT (21.0-31.0) Seconds PTT Ratio ABG pH (7.35-7.45) ABG pCO2 (35-46) mmHg ABG pO2 (80-95) mmHg ABG HCO3 (19-24) mmol/L ABG O2 Saturation (90-95) % ABG Base Excess (-9-1.8) mEq/L Rambo Test (Pos) Barometric Pressure mm/Hg Oxygen Given Sodium (136-145) mmol/L Potassium (3.5-5.1) mmol/L Chloride (98-107) mmol/L Carbon Dioxide (21-32) mmol/L Anion Gap (3-11) BUN (7-18) mg/dl Creatinine (0.6-1.2) mg/dl Est Cr Clr Drug Dosing ml/min Est GFR ( Amer) Est GFR (Non-Af Amer) BUN/Creatinine Ratio (10-20) Glucose (70-99) mg/dl POC Glucose 107 H 89 (70-99) mg/dl Lactate 1.0 (0.4-2.0) mmol/L Calcium (8.5-10.1) mg/dl Magnesium (1.8-2.4) mg/dl Total Bilirubin (0.2-1) mg/dl AST (15-37) U/L ALT (12-78) U/L Alkaline Phosphatase (45-117) U/L Ammonia (11-32) umol/L Troponin I (0-0.045) ng/ml NT-Pro-B Natriuret Pep (0-900) pg/ml Total Protein (6.4-8.2) gm/dl Albumin (3.4-5.0) gm/dl Globulin (2.5-4.0) gm/dl Albumin/Globulin Ratio (0.9-2) Lipase (73-393) U/L Procalcitonin (0-0.5) ng/ml Urine Color Urine Appearance (Clear) Urine pH (4.5-7.5) Ur Specific [place] (1.000-1.030) Urine Protein (Negative) Urine Glucose (UA) (Negative) Urine Ketones (Negative) Urine Blood (Negative) Urine Nitrite (Negative) Urine Bilirubin (Negative) Urine Urobilinogen (Negative) Ur Leukocyte Esterase (Negative) COVID-19 Eval Order SARS-CoV-2, RNA, NAAT (NEGATIVE) Imaging Data Radiologist's Impression: XR chest 1V portable HISTORY: SEPSIS COMPARISON: Chest 12/28/2020. FINDINGS: No pneumothorax. There are low lung volumes. The cardiac silhouette remains enlarged. There is a right-sided dual-chamber pacemaker. There is mild central pulmonary vascular congestion without overt edema. Trace bilateral pleural effusions persist. Increased markings at the lung bases favor atelectasis from the low lung volumes. IMPRESSION: 1. Slight improvement in the mild pulmonary vascular congestion without overt edema. 2. Cardiomegaly and trace bilateral pleural effusions persist. ACT 112: Negative or not required by law. Electronically signed by: Serg Arias M.D. 01/04/2021 7:[address]AST CT DOSE: 537.48 mGy.cm HISTORY: Altered mental status. TECHNIQUE: Multiaxial CT images of the head were performed without the use of intravenous contrast. Automated exposure control was utilized for this study. A dose lowering technique was utilized adhering to the principles of ALARA. Comparison: Head CT 12/08/2020. Findings: The paranasal sinuses and mastoid air cells are clear. The calvarium and skull base are intact. The ventricles and sulci are within normal limits. There is no mass, hematoma, midline shift, or acute infarct. Impression: No acute intracranial abnormality. ACT 112: Negative or not required by law. Electronically signed by: Serg Arias M.D. 01/04/2021 8:27 PM ECG Data Attestation: I personally reviewed and interpreted this ECG as follows: Indication: + SOB/dyspnea Rate (beats per minute): 66 Rhythm: + normal sinus ECG Intervals/blocks: + Normal QRS and + Normal QT ECG [place]: + Normal ECG ST segments: + T-wave inversions (I, aVF) Blood Pressure Blood Pressure Findings: Elevated blood pressure Blood Pressure Disposition: further management by hospitalist MDM Narrative This is a 60-year-old female who presents from home via EMS due to altered mental status. Patient initially found to be hypoglycemic by EMS and this was corrected prehospital. Patient here was oriented, however very quickly became confused again on a repeat exam. Patient's blood sugar began to drop again. Patient was given dextrose and allowed to eat, and continued to have recurrent hypoglycemia. On review of EMR, patient has had prior episodes of documented hypoglycemia also. Labs were drawn and sent, chest x-ray performed, EKG performed, patient sent for CT of the head as a precaution. Patient appears to be intermittently delirious. There are no lateralizing findings or focal deficits to suggest CVA. No evidence of ICH on CT head. I do not suspect worsening infectious etiology, patient states she has been compliant with the antibiotic she was discharged on.Patient's H&H stable compared to prior, patient does have a history of anemia. Patient's creatinine was elevated compared to prior, UA otherwise negative for infection. No prior history of obstructive uropathy or recent nephrolithiasis noted on CT performed during last admission. Patient hemodynamically stable although appeared dyspneic with increased work of breathing. In light of this patient's chronic oxygen requirements, we did attempt high flow nasal cannula. We did ask RT to make some adjustments as patient seemed slightly bothered by this intermittently although her work of breathing did seem improved. Patient does have an elevated troponin although this appears chronic on review of EMR. Patient's BNP was also elevated, it is unclear if this is due to evolving congestive heart failure of which she is at risk for and has had before or secondary to the elevation in her creatinine. Patient denies any other dietary indiscretion or increased fluid intake. I do not suspect ACS, although patient is at risk and has previously had documented CAD and PCI to her RCA. Patient also with significant history of hypertrophic cardiomyopathy. Case discussed with hospitalist for additional inpatient evaluation and management. Dextrose containing IV fluids were also ordered to help prevent any recurrent episodes of hypoglycemia which does seem to worsen the intermittent episodes of confusion and altered mentation. An order was placed for continuous cardiac monitoring. The monitor shows a rate of _70 with __normal sinus_ rhythm. Impression & Plan AMS (altered mental status), Elevated troponin, Hypoglycemia, Anemia, OSBALDO (acute kidney injury), Dyspnea Discharge Plan Visit Data Chief Complaint: Hypoglycemia Stated Complaint: AMS, HYPOGLYCEMIA, BACK PAIN ED Provider: Francesca Marques Discharge Problem: AMS (altered mental status), Elevated troponin, Hypoglycemia, Anemia, OSBALDO (acute kidney injury), Dyspnea Forms Stand Alone Forms: [facility] Prescriptions Prescriptions: No Action duloxetine 60 mg Capsule,Delayed Release(Dr/Ec) 60 mg PO QAM RF: 0 folic acid 1 mg Tablet 1 mg PO HS RF: 0 sumatriptan succinate 25 mg Tablet 50 mg PO DIRECTED PRN (Reason: Migraine Headache) RF: 0 gabapentin 300 mg capsule 300 mg PO TID RF: 0 albuterol sulfate [Ventolin HFA] 90 mcg/actuation Hfa Aerosol Inhaler 2 puff INHALATION Q4H PRN (Reason: Wheezing) RF: 0 ondansetron 4 mg tablet,disintegrating 4 mg translingual Q8H PRN (Reason: Nausea) RF: 0 nitroglycerin [Nitrostat] 0.4 mg tablet, sublingual 0.4 mg sublingual DIRECTED PRN (Reason: Chest Pain) RF: 0 fluticasone propion-salmeterol [Advair Diskus] 500-50 mcg/dose Blister With Device 1 inh INHALATION BID RF: 0 spironolactone [Aldactone] 25 mg Tablet 12.5 mg PO QAM RF: 0 mirtazapine 45 mg Tablet 45 mg PO HS RF: 0 atorvastatin [Lipitor] 40 mg tablet 40 mg PO QAM RF: 0 isosorbide mononitrate 30 mg Tablet Extended Release 24 Hr 30 mg PO QAM RF: 0 pantoprazole 40 mg Tablet,Delayed Release (Dr/Ec) 40 mg PO BID RF: 0 aspirin 81 mg Tablet,Chewable 81 mg PO DAILY RF: 0 Januvia 100 mg Tablet 100 mg PO DAILY RF: 0 Lactobacillus acidoph-L.bulgar [Floranex] 1 million cell Tablet 1 tab PO TID RF: 0 verapamil 40 mg Tablet 40 mg PO QID RF: 0 metformin 500 mg tablet 500 mg PO BIDM RF: 0 albuterol sulfate 2.5 mg /3 mL (0.083 %) solution for nebulization 3 ml Inhalation Q4H PRN (Reason: Wheezing) RF: 0 diphenoxylate-atropine [Lomotil] 2.5-0.025 mg Tablet 1 tab PO QID PRN (Reason: Diarrhea) RF: 0 torsemide 10 mg Tablet See Rx Instructions .ROUTE .COMPLEX RF: 0 budesonide 0.5 mg/2 mL suspension for nebulization 0.5 mg inhalation Q12H RF: 0 levofloxacin 500 mg tablet 500 mg PO DAILY 10 Days Qty: 10 RF: 0 metronidazole [Flagyl] 500 mg tablet 500 mg PO Q8H 10 Days Qty: 30 RF: 0 insulin asp prt-insulin aspart [Novolog Mix 70-30FlexPen U-100] 100 unit/mL (70-30) insulin pen 30 unit SUBCUT DAILYBB Qty: 0 RF: 0 insulin asp prt-insulin aspart [Novolog Mix 70-30FlexPen U-100] 100 unit/mL (70-30) insulin pen 15 unit SUBCUT DAILYBD Qty: 0 RF: 0 diclofenac sodium 3 % Gel 1 applic TOPICAL BID RF: 0 trazodone 50 mg Tablet 50 mg PO HS RF: 0 metoprolol succinate 100 mg Capsule,Sprinkle,Er 24hr 100 mg PO BID RF: 0 Discharge Problem: AMS (altered mental status) Qualifiers: Altered mental status type: unspecified Qualified Code(s): R41.82 - Altered mental status, unspecified Anemia Qualifiers: Anemia type: unspecified type Qualified Code(s): D64.9 - Anemia, unspecified Dyspnea Qualifiers: Dyspnea type: shortness of breath Qualified Code(s): R06.02 - Shortness of breath
[2021-01-04 18:43] LABS: Basophils # (auto) 0.02 K/uL (0-0.2); Basophils % (auto) 0.2 %; Eosinophils # (auto) 0.16 K/uL (0-0.5); Eosinophils % (auto) 1.5 %; Hematocrit (blood only) 30.1 % (37-47); Hemoglobin 8.9 g/dL (12.0-16.0); Immature Granulocytes # (auto) 0.02 K/uL (0.00-0.02); Immature Granulocytes % (auto) 0.2 %; Lymphocytes # (auto) 1.01 K/uL (1.2-3.4); Lymphocytes % (auto) 9.3 %; Mean Corpuscular Hemoglobin 23.4 pg (25-34); Mean Corpuscular Hgb Conc 29.6 g/dL (32-36); Mean Platelet Volume 9.7 fL (7.4-10.4); Monocytes # (auto) 0.78 K/uL (0.11-0.59); Monocytes % (auto) 7.2 %; Neutrophils % (auto) 81.6 %; Platelet Count 230 K/uL (130-400); RDW Coefficient of Variation 20.6 % (11.5-14.5); RDW Standard Deviation 59.7 fL (36.4-46.3); Red Blood Count 3.81 M/uL (4.2-5.4); White Blood Count 10.89 K/uL (4.8-10.8)
[2021-01-04 18:55] LABS: Base Excess ABG 1.3 mEq/L (-9-1.8); HCO3 ABG 27 mmol/L (19-24); PCO2 ABG 46 mmHg (35-46); PO2 ABG 91 mmHg (80-95); pH ABG 7.38 (7.35-7.45)
[2021-01-04 18:56] LABS: Allen Test Pos (Pos)
[2021-01-04 18:57] LABS: INR 1.3 (0.9-1.1); Prothrombin Time 12.6 Seconds (9.0-12.0)
[2021-01-04 19:01] LABS: Albumin Level 3.4 gm/dl (3.4-5.0); BUN Creatinine Ratio 25.6 (10-20); Calcium 8.6 mg/dl (8.5-10.1); Creatinine Clr Calc Pharmacy 30.4 ml/min; Est GFR (African American) 34.4; Est GFR (Non-African American) 29.6; Magnesium 1.5 mg/dl (1.8-2.4); Potassium 3.5 mmol/L (3.5-5.1)
[2021-01-04 19:08] LABS: Bilirubin,Total 0.5 mg/dl (0.2-1); Globulin 3.3 gm/dl (2.5-4.0); Total Protein 6.7 gm/dl (6.4-8.2); Troponin I 0.141 ng/ml (0-0.045)
--- NOTE | 2021-01-04 19:08 | XRay Report ---
XR chest 1V portable HISTORY: SEPSIS COMPARISON: Chest 12/28/2020. FINDINGS: No pneumothorax. There are low lung volumes. The cardiac silhouette remains enlarged. There is a right-sided dual-chamber pacemaker. There is mild central pulmonary vascular congestion without overt edema. Trace bilateral pleural effusions persist. Increased markings at the lung bases favor a telectasis from the low lung volumes. IMPRESSION: 1. Slight improvement in the mild pulmonary vascular congestion without overt edema. 2. Cardiomegaly and trace bilateral pleural effusions persist. ACT 112: Negative or not required by law. Electronically signed by: Serg Arias M.D. 01/04/2021 7:07 PM
[2021-01-04] MEDS ORDERED: DEXTROSE 50% 50 ML SYRINGE IV ONE ×2 (19:31→23:00)
[2021-01-04] MEDS: MAGNESIUM SULFATE / D5W 1 GM/100 ML BAG IV SCH ×2 (19:38→21:13)
[2021-01-04 19:57] LABS: Anisocytosis Present; Hypochromasia Present; Ovalocytes 1+; Polychromasia 1+; Tear Drop Cells Occasional
--- NOTE | 2021-01-04 20:28 | CT Scan Report ---
HEAD CT NONCONTRAST CT DOSE: 537.48 mGy.cm HISTORY: Altered mental status. TECHNIQUE: Multiaxial CT images of the head were performed without the use of intravenous contrast. A utomated exposure control was utilized for this study. A dose lowering technique was utilized adheri ng to the principles of ALARA. Comparison: Head CT 12/08/2020. Findings: The paranasal sinuses and mastoid air cells are clear. The calvarium and skull base are int act. The ventricles and sulci are within normal limits. There is no mass, hematoma, midline shift, or acute infarct. Impression: No acute intracranial abnormality. ACT 112: Negative or not required by law. Electronically signed by: Serg Arias M.D. 01/04/2021 8:27 PM
[2021-01-04 20:48] LABS: Appearance Urine Clear (Clear); Bilirubin Urine Negative (Negative); Blood Urine Negative (Negative); Color Urine Yellow; Glucose Urine UA Negative (Negative); Ketones Urine Negative (Negative); Leukocyte Esterase Urine Negative (Negative); Nitrite Urine Negative (Negative); Protein Urine Negative (Negative); Specific Gravity Urine 1.013 (1.000-1.030); Urobilinogen Urine Negative (Negative)
[2021-01-04] MEDS ORDERED: D5W AND 1/2NSS 1,000 ML IV SCH (21:15)
[2021-01-04] MEDS ORDERED: ALBUT/IPRATROP 3MG/0.5MG NEB 3 ML VIAL NEB STA (21:32)
[2021-01-04] MEDS ORDERED: METOPROLOL SUCC 50MG EXT REL TAB PO STA (21:34)
[2021-01-04] MEDS: ALBUMIN 25% 12.5 GM/50 ML VIAL IV SCH ×2 (22:01→22:28)
[2021-01-04] MEDS ORDERED: DEXTROSE 5% 1,000 ML IV SCH (22:45)
--- NOTE | 2021-01-04 22:52 | History & Physical Report ---
Date of Service January 04, 2021 Assessment & Plan (1) Encephalopathy: Multifactorial : Recurrent hypoglycemia, history DM2 insulin requiring, well-controlled as of recent hemoglobin A1c of 6.5. 2020 ARF on CKD Poor p.o. intake secondary to diarrheal illness rule out C. difficile given rec ent antibiotic Rx home neuropsychotropic meds contributory hx chronic diastolic heart failure (EF 70%, TTE 2019), some congestion on CXR Equivocal volume status given sme congestion on x-ray CAD sp PETERSON (07/2020) HOCM, family history sudden cardiac sp ICD placement hypertension, slight elevated Troponin elevation secondary to above in the setting of kidney dysfunction chronic respiratory failure due to CADENCE (CPAP intolerance) on home O2 chronic anemia, hemoglobin at baseline Recurrent admissions, possible functional disability Medical telemetry D5 IVF for now, hypoglycemia protocol Appropriate to hold home insulin Important to re-adjust home insulin regimen prior to discharge given well- controlled DM in consideration of baseline kidney dysfunction and recurrent hypoglycemic episodes May benefit from pharmacy glycemic consultation. Monitor creatinine response to IV albumin administration (Favor over IV crystalloid given pulmonary congestion on CXR and some weight gain as per patient account) Stool C. difficile Appropriate to hold home neuropsychotropic meds until patient mentation at baseline. Psychiatry consultation if hallucinations persist despite euglycemia and return to baseline kidney function. Facilitate home BP meds, follow troponin PT OT eval DVT prophylaxis with Heparin subcu Full code Text document was generated using [employer] voice recognition software. It may contain grammatical or spelling errors. Kindly contact undersigned for clarification of any documentation item in question. History of Present Illness Chief Complaint: Confusion, hypoglycemia as per records Primary Care Provider: Suad De León DO History obtained from patient and records. Medical history significant for chronic respiratory failure due to CADENCE (CPAP intolerance) on home O2, chronic diastolic heart failure (EF 70%, TTE 2019), CAD sp [place] stent (07/2020), hypertension, HOCM/ family history sudden cardiac sp ICD placement, DM2 insulin requiring, restless leg syndrome as per records, CRI (baseline creatinine 1.4), chronic anemia (baseline hemoglobin 9-10), mood disorder, pancreatic cyst. Last confinement 2 weeks ago for chronic cholecystitis status post biliary stent placement. Patient discharged on Levaquin Flagyl prescription. Home insulin dose reduced to 50% as per documentation due to hypoglycemic episodes at home. Few days history of worsening achy lower abdominal pain with watery diarrhea symptoms. Some nausea, no emesis. Low-grade fever as per patient, no chills. No chest pain, no unusual shortness of breath. No unusual cough symptoms. Poor appetite. Patient later noted by family to be disoriented and somewhat psychotic. Very paranoid. Smelling heart sausage sandwiches, hearing gunshots and fearful that she is going to be shot. EMS summoned by visiting nurse at home yesterday. BSG noted to be 53 upon arrival of EMS. Patient brought to the ER for evaluation. 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 Allergies Allergy/AdvReac Type Severity Reaction Status Date / Time Penicillins Allergy Intermediate Flushing, Verified 12/22/20 21:58 Itchiness Sulfa (Sulfonamide Allergy Intermediate Swelling Verified 12/22/20 21:58 Antibiotics) doxycycline Allergy Unknown Unknown Verified 12/22/20 21:58 adhesive AdvReac Intermediate Blistering Verified 12/22/20 21:58 morphine AdvReac Hallucinati Verified 12/22/20 21:59 ng Home Medications Medication Instructions Recorded Confirmed Type duloxetine 60 mg PO QAM 08/09/18 01/04/21 History folic acid 1 mg PO HS 08/09/18 01/04/21 History sumatriptan succinate 50 mg PO DIRECTED PRN 08/09/18 01/04/21 History albuterol sulfate 3 ml INHALATION Q4H PRN 09/09/18 01/04/21 History diphenoxylate-atropine [Lomotil] 1 tab PO QID PRN 12/19/18 01/04/21 History albuterol sulfate [Ventolin HFA] 2 puff INHALATION Q4H PRN 06/30/19 01/04/21 History fluticasone propion-salmeterol 1 inh INHALATION BID 06/30/19 01/04/21 History [Advair Diskus] gabapentin 300 mg PO TID 06/30/19 01/04/21 History nitroglycerin [Nitrostat] 0.4 mg SUBLINGUAL DIRECTED PRN 06/30/19 01/04/21 History ondansetron 4 mg TRANSLINGUAL Q8H PRN 06/30/19 01/04/21 History spironolactone [Aldactone] 12.5 mg PO QAM 06/30/19 01/04/21 History mirtazapine 45 mg PO HS 09/25/19 01/04/21 History budesonide 0.5 mg INHALATION Q12H 01/13/20 01/04/21 History torsemide See Rx Instructions .ROUTE .COMPLEX 01/13/20 01/04/21 History atorvastatin [Lipitor] 40 mg PO QAM 04/30/20 01/04/21 History Januvia 100 mg PO DAILY 07/28/20 01/04/21 History Lactobacillus acidoph-L.bulgar 1 tab PO TID 07/28/20 01/04/21 History [Floranex] aspirin 81 mg PO DAILY 07/28/20 01/04/21 History isosorbide mononitrate 30 mg PO QAM 07/28/20 01/04/21 History pantoprazole 40 mg PO BID 07/28/20 01/04/21 History verapamil 40 mg PO QID 11/16/20 01/04/21 History metformin 500 mg PO BIDM 12/07/20 01/04/21 History insulin asp prt-insulin aspart 15 unit SUBCUT DAILYBD #0 ml 12/28/20 01/04/21 Rx [Novolog Mix 70-30FlexPen U-100] insulin asp prt-insulin aspart 30 unit SUBCUT DAILYBB #0 ml 12/28/20 01/04/21 Rx [Novolog Mix 70-30FlexPen U-100] levofloxacin 500 mg PO DAILY 10 Days #10 tab 12/28/20 01/04/21 Rx metronidazole [Flagyl] 500 mg PO Q8H 10 Days #30 tab 12/28/20 01/04/21 Rx diclofenac sodium 1 applic TOPICAL BID 01/04/21 01/04/21 History metoprolol succinate 100 mg PO BID 01/04/21 01/04/21 History trazodone 50 mg PO HS 01/04/21 01/04/21 History Past Med/Surg History Medical History (Updated 01/05/21 @ 04:57 by González Carter MD) Anxiety Arthritis Asthma Cardiac defibrillator in place 2014 CHF (congestive heart failure) CKD (chronic kidney disease), stage III COPD (chronic obstructive pulmonary disease) Depression Depression with anxiety Diabetes mellitus, type 2 Elevated troponin Elevated troponin Fatty (change of) liver, not elsewhere classified GERD (gastroesophageal reflux disease) Headache HLD (hyperlipidemia) Hydronephrosis of right kidney Hypertension Hypertrophic cardiomyopathy Hypocalcemia Hypoglycemia Hypomagnesemia CADENCE (obstructive sleep apnea) on nocturnal O2 2L Pancreatic cyst Restless leg syndrome Surgical History H/O section 1979 & 1982 H/O hernia repair 2016 History of appendectomy 1970s History of colostomy reversal bowel perf 2013 with colostomy reversed in 2014 Status post internal cardiac defibrillator procedure "2015" Status post partial resection of colon "diverticulitis 11/05/14" Family History Other Hypertrophic cardiomyopathy Stomach cancer Thyroid disorder Social History Smoking Status: Never smoker Second Hand Exposure: No; Hx Alcohol Use: No Hx Substance Use: No Preferred Language: Burmese Communication Ability: Effective Baker Operator Automatic Required: No Beliefs That Will Affect Care: None marital status: Current Living Situation: Spouse and Family 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 Feels Safe at Home: Yes Assistive Devices: Oxygen - Continuous and Walker Review of Systems Review of Systems: As per HPI, all 10 systems reviewed, all other ROS negative Physical Exam Physical Exam: GENERAL: uncomfortable, anxious, obese, oriented, restless, min respiratory distress SKIN: Pallor, warm HEENT: Pale palpebral conjunctivae, no ptosis, dry buccal mucosa, O2 mask in place NECK : Supple, short neck, no tenderness CHEST : Decreased breath sounds, no tenderness HEART : RRR, no obvious murmurs ABDOMEN: Some distention, hypogastric tenderness EXTREMITIES : Minimal LE swelling, no LE tenderness, no other conspicuous deformities noted NEUROLOGIC : Coherent, no facial asymmetry, restless, no other gross focality Results & Data Results & Data ([facility]) Vital Signs (Past 12 Hours) Vital Signs Temp Pulse Pulse Resp BP Pulse Ox 01/04/21 22:14 71 18 108/48 L 97 01/04/21 22:08 97 01/04/21 22:07 69 31 H 96 02/16/21 21:47 69 26 H 100 01/04/21 21:32 68 29 H 148/61 H 100 01/04/21 21:06 96 01/04/21 21:01 69 28 H 122/89 100 01/04/21 20:38 70 26 H 97 01/04/21 20:30 71 24 120/96 100 01/04/21 20:15 73 29 H 143/99 H 99 01/04/21 19:53 73 20 115/86 92 01/04/21 19:45 71 24 160/120 H 90 01/04/21 18:37 95 01/04/21 18:08 36.7 C 78 22 152/64 H 95 Laboratory Results Laboratory Results WBC 10.89 K/uL (4.8-10.8) H 01/04/21 18:31 RBC 3.81 M/uL (4.2-5.4) L 01/04/21 18:31 Hgb 8.9 g/dL (12.0-16.0) L 01/04/21 18:31 Hct 30.1 % (37-47) L 01/04/21 18:31 MCV 79.0 fL (80-100) L 01/04/21 18:31 MCH 23.4 pg (25-34) L 01/04/21 18:31 MCHC 29.6 g/dL (32-36) L 01/04/21 18:31 RDW Std Deviation 59.7 fL (36.4-46.3) H 01/04/21 18:31 RDW Coeff of Rolan 20.6 % (11.5-14.5) H 01/04/21 18:31 Plt Count 230 K/uL (130-400) 01/04/21 18:31 MPV 9.7 fL (7.4-10.4) 01/04/21 18:31 Immature Gran % (Auto) 0.2 % 01/04/21 18:31 Neut % (Auto) 81.6 % 01/04/21 18:31 Lymph % (Auto) 9.3 % 01/04/21 18:31 [place] % (Auto) 7.2 % 01/04/21 18:31 Eos % (Auto) 1.5 % 01/04/21 18:31 Baso % (Auto) 0.2 % 01/04/21 18:31 Neut # (Auto) 8.90 K/uL (1.4-6.5) H 01/04/21 18:31 Lymph # (Auto) 1.01 K/uL (1.2-3.4) L 01/04/21 18:31 [place] # (Auto) 0.78 K/uL (0.11-0.59) H 01/04/21 18:31 Eos # (Auto) 0.16 K/uL (0-0.5) 01/04/21 18:31 Baso # (Auto) 0.02 K/uL (0-0.2) 01/04/21 18:31 Immature Gran # (Auto) 0.02 K/uL (0.00-0.02) 01/04/21 18:31 Polychromasia 1+ 01/04/21 18:31 Hypochromasia Present 01/04/21 18:31 Anisocytosis Present 01/04/21 18:31 Tear Drop Cells Occasional 01/04/21: Ovalocytes 1+ 01/04/21 18:31 PT 12.6 Seconds (9.0-12.0) H 01/04/21 18:31 INR 1.3 (0.9-1.1) H 01/04/21 18:31 APTT 26.0 Seconds (21.0-31.0) 01/04/21 18: PTT Ratio 1.0 01/04/21 18:31 ABG pH 7.38 (7.35-7.45) 01/04/21 18:46 ABG pCO2 46 mmHg (35-46) 01/04/21 18:46 ABG pO2 91 mmHg (80-95) 01/04/21 18:46 ABG HCO3 27 mmol/L (19-24) H 01/04/21 18:46 ABG O2 Saturation 97.0 % (90-95) H 01/04/21 18:46 ABG Base Excess 1.3 mEq/L (-9-1.8) 01/04/21 18:46 Rambo Test Pos (Pos) 01/04/21 18:46 Barometric Pressure 731.1 mm/Hg 01/04/21 18:46 Oxygen Given 3% 01/04/21 18:46 Sodium 140 mmol/L (136-145) 01/04/21 18:31 Potassium 3.5 mmol/L (3.5-5.1) 01/04/21 18:31 Chloride 104 mmol/L (98-107) 01/04/21 18:31 Carbon Dioxide 30 mmol/L (21-32) 01/04/21 18:31 Anion Gap 6.0 (3-11) 01/04/21 18:31 BUN 46 mg/dl (7-18) H 01/04/21 18:31 Creatinine 1.80 mg/dl (0.6-1.2) H 01/04/21 18:31 Est Cr Clr Drug Dosing 30.4 ml/min 01/04/21 18:31 Est GFR ( Amer) 34.4 01/04/21 18:31 Est GFR (Non-Af Amer) 29.6 01/04/21 18:31 BUN/Creatinine Ratio 25.6 (10-20) H 01/04/21 18:31 Glucose 55 mg/dl (70-99) L 01/04/21 18:31 POC Glucose 86 mg/dl (70-99) 01/04/21 22:05 Lactate 1.0 mmol/L (0.4-2.0) 01/04/21 20:34 Calcium 8.6 mg/dl (8.5-10.1) 01/04/21 18:31 Magnesium 1.5 mg/dl (1.8-2.4) L 01/04/21 18:31 Total Bilirubin 0.5 mg/dl (0.2-1) 01/04/21 18:31 AST 19 U/L (15-37) 01/04/21 18:31 ALT 23 U/L (12-78) 01/04/21 18:31 Alkaline Phosphatase 182 U/L (45-117) H 01/04/21 18:31 Ammonia 34.0 umol/L (11-32) H 01/04/21 18:31 Troponin I 0.141 ng/ml (0-0.045) H* 01/04/21 18:31 NT-Pro-B Natriuret Pep 5876 pg/ml (0-900) H 01/04/21 18:31 Total Protein 6.7 gm/dl (6.4-8.2) 01/04/21 18:31 Albumin 3.4 gm/dl (3.4-5.0) 01/04/21 18:31 Globulin 3.3 gm/dl (2.5-4.0) 01/04/21 18:31 Albumin/Globulin Ratio 1.0 (0.9-2) 01/04/21 18:31 Lipase 111 U/L (73-393) 01/04/21 18:31 Procalcitonin 0.19 ng/ml (0-0.5) 01/04/21 18:31 Urine Color Yellow 01/04/21 20:20 Urine Appearance Clear (Clear) 01/04/21 20:20 Urine pH 5.0 (4.5-7.5) 01/04/21 20:20 Ur Specific [place] 1.013 (1.000-1.030) 01/04/21 20:20 Urine Protein Negative (Negative) 01/04/21 20:20 Urine Glucose (UA) Negative (Negative) 01/04/21 20:20 Urine Ketones Negative (Negative) 01/04/21 20:20 Urine Blood Negative (Negative) 01/04/21 20:20 Urine Nitrite Negative (Negative) 01/04/21 20:20 Urine Bilirubin Negative (Negative) 01/04/21 20:20 Urine Urobilinogen Negative (Negative) 01/04/21 20:20 Ur Leukocyte Esterase Negative (Negative) 01/04/21 20:20 COVID-19 Eval Order Covid19 [facility] 01/04/21 19:55 SARS-CoV-2, RNA, NAAT NEGATIVE (NEGATIVE) 01/04/21 19:[address] head: No acute intracranial abnormality. CT abdomen pelvis initial read: Short metallic biliary stent between the gallbladder and proximal duodenum. Double-J stent extending from gallbladder through the metallic stent and into the duodenum. Mild stranding around the gallbladder. Small amount of pneumobilia in the common duct. Stable pancreatic cystic lesion. Stable small right pleural effusion and right bibasilar atelectasis or airspace disease. Pacemaker right-sided extrarenal pelvis. No free air. Both ventral hernias containing bowel loops. Chest x-ray : 1. Slight improvement in the mild pulmonary vascular congestion without overt edema. 2. Cardiomegaly and trace bilateral pleural effusions persist. EKG as per my interpretation : Rate 65, NSR, normal axis, T wave abnormalities lateral leads
[2021-01-05] MEDS ORDERED: GLUCOSE 10 TABS/TUBE PO PRN (01:46)
[2021-01-05] MEDS ORDERED: GLUCAGON FOR INJ 1 MG VIAL SQ PRN (01:46)
[2021-01-05] MEDS ORDERED: DEXTROSE 50% 50 ML SYRINGE IV PRN (01:46)
[2021-01-05] MEDS ORDERED: GLUCOSE 40% GEL 15 GM TUBE PO PRN (01:46)
[2021-01-05] MEDS ORDERED: CARBOHYDRATES FOR HYPOGLYCEMIA PO PRN (01:46)
[2021-01-05] MEDS ORDERED: traMADol HCL 50 MG TABLET PO PRN (01:46)
[2021-01-05] MEDS: INSULIN ASPART 100 UNITS/ML 3 ML PEN SC SCH ×5 (02:49→21:01)
[2021-01-05 02:57] LABS: Basophils # (auto) 0.02 K/uL (0-0.2); Basophils % (auto) 0.1 %; Eosinophils % (auto) 0.7 %; Hematocrit (blood only) 29.2 % (37-47); Hemoglobin 8.9 g/dL (12.0-16.0); Immature Granulocytes # (auto) 0.02 K/uL (0.00-0.02); Immature Granulocytes % (auto) 0.1 %; Lymphocytes % (auto) 10.3 %; Mean Corpuscular Hemoglobin 24.3 pg (25-34); Mean Corpuscular Hgb Conc 30.5 g/dL (32-36); Mean Corpuscular Volume 79.8 fL (80-100); Mean Platelet Volume 9.8 fL (7.4-10.4); Monocytes # (auto) 1.02 K/uL (0.11-0.59); Monocytes % (auto) 7.5 %; Neutrophils # (auto) 11.04 K/uL (1.4-6.5); Neutrophils % (auto) 81.3 %; Platelet Count 252 K/uL (130-400); RDW Coefficient of Variation 20.5 % (11.5-14.5); RDW Standard Deviation 60.8 fL (36.4-46.3); Red Blood Count 3.66 M/uL (4.2-5.4)
[2021-01-05 03:25] LABS: Anisocytosis Present; Hypochromasia Present; Ovalocytes 1+; Polychromasia 1+
[2021-01-05 03:35] LABS: Albumin Level 3.8 gm/dl (3.4-5.0); BUN Creatinine Ratio 24.2 (10-20); Calcium 8.7 mg/dl (8.5-10.1); Creatinine Clr Calc Pharmacy 32.4 ml/min; Est GFR (African American) 37.1; Magnesium 2.4 mg/dl (1.8-2.4); Potassium 3.7 mmol/L (3.5-5.1)
[2021-01-05 03:36] LABS: Albumin Globulin Ratio 1.2 (0.9-2); Bilirubin,Total 0.7 mg/dl (0.2-1); Globulin 3.1 gm/dl (2.5-4.0); Total Protein 6.9 gm/dl (6.4-8.2)
[2021-01-05 03:37] LABS: Troponin I 0.149 ng/ml (0-0.045)
[2021-01-05] MEDS: ACETAMINOPHEN 325 MG TAB PO PRN ×2 (05:11→21:07)
[2021-01-05] MEDS: ALBUMIN 25% 12.5 GM/50 ML VIAL IV SCH ×3 (05:33→17:21)
[2021-01-05] MEDS ORDERED: oxyCODONE HCL IR 5 MG TAB (IMMEDIATE RELEASE) PO PRN (05:35)
[2021-01-05] MEDS ORDERED: PROMETHAZINE HCL 12.5 MG in SODIUM CHLORIDE 0.9% 50 ML IV PRN (05:35)
[2021-01-05] MEDS: HEPARIN SOD 5,000 UNIT/0.5 ML VIAL SQ SCH ×3 (05:59→21:05)
[2021-01-05] MEDS: BUDESONIDE 0.5 MG/2 ML VIAL (PULMICORT) INH SCH ×2 (07:37→19:49)
--- NOTE | 2021-01-05 08:07 | CT Scan Report ---
CT OF THE ABDOMEN AND PELVIS WITHOUT CONTRAST CLINICAL HISTORY: Worsening abdominal pain. COMPARISON STUDY: CT of the abdomen and pelvis December 22, 2020. TECHNIQUE: Axial images of the abdomen and pelvis were obtained without IV contrast. Images were revi ewed in the axial, sagittal, and coronal planes. Automated exposure control was utilized for the thomas dy. A dose lowering technique was utilized adhering to the principles of ALARA. FINDINGS: Pacer leads are partially imaged. There is moderate cardiomegaly. A small right pleural eff usion is similar to prior exam. Right lower lung opacity favors atelectasis. Evaluation of the abdome n and pelvis is suboptimal on this unenhanced examination. There is a small amount of pneumobilia. Th ere is trace gas within the gallbladder. Interval placement of a stent between the proximal duodenum and the gallbladder is noted. An additional double J stent extends through this stent. The position o f the proximal aspect of the double-J stent is difficult to assess by CT. However, this is probably i ntraluminal. There is no adjacent extraluminal gas. The gallbladder is not distended. A small amount of fluid anterior to the stent along the liver has mildly increased since CT of December 22, 2020. The re is no peripancreatic infiltration. A cystic 2.4 cm lesion within the pancreatic head remains uncha nged from earlier exams. No hepatic lesions are identified. There is trace perihepatic fluid. The spl een, adrenal glands and left kidney are unremarkable on this unenhanced exam. Several bowel containin g ventral hernias are noted without evidence for a bowel obstruction. A moderate amount stool within the right colon is noted. There is no lymphadenopathy. Mild right hydronephrosis is unchanged from ea rlier exams. This is chronic. IMPRESSION: 1. Interval placement of a Cholecystoduodenal stent which contains an additional double-J stent which extends from the duodenum to the gallbladder. The position of the proximal aspect of the double-J st ent is difficult to assess by CT but is likely intraluminal. Stents likely appropriately positioned. Increase in a small amount of fluid located anterior to the stents, along the liver. This is nonspeci fic and may be postprocedural. However, residual cholecystitis or a biliary leak could appear similar . 2. Suboptimal evaluation of the abdomen and pelvis given lack of IV contrast. 3. Several bowel containing ventral hernias. No bowel obstruction. 4. Moderate amount of stool within the right colon. ACT 112: Negative or not required by law. Electronically signed by: Phil Devries M.D. 01/05/2021 8:06 AM
[2021-01-05] MEDS: DICLOFENAC SOD 1% GEL 100 GM TUBE EXT SCH ×2 (08:18→21:02)
[2021-01-05] MEDS: ATORVASTATIN 40 MG TAB PO SCH (08:19)
[2021-01-05] MEDS: ASPIRIN 81 MG ECTAB PO SCH (08:19)
[2021-01-05] MEDS: ISOSORBIDE MONO EXTENDED REL 30 MG TABCR PO SCH (08:19)
[2021-01-05] MEDS: VERAPAMIL HCL 40 MG TAB PO SCH ×4 (08:19→21:04)
[2021-01-05] MEDS: METOPROLOL SUCC 50MG EXT REL TAB PO SCH ×2 (08:19→21:04)
[2021-01-05] MEDS: PANTOprazole 40 MG TAB PO SCH ×2 (08:19→21:03)
[2021-01-05] MEDS: DULoxetine HCL 60 MG CAP PO SCH (08:19)
[2021-01-05] MEDS: ADVANCED PROBIOTIC 1250 MG CAPSULE PO SCH (08:19)
[2021-01-05] MEDS: FLUTICASONE/VILANTEROL 200/25MCG 14 PUFFS/INHALER INH SCH (08:20)
[2021-01-05] MEDS: D5W AND NSS 1,000 ML IV SCH (09:25)
--- NOTE | 2021-01-05 17:52 | Hospitalist Progress Note ---
Date of Service January 05, 2021 Assessment & Plan (1) Encephalopathy: Metabolic Encephalopathy : multifactorial hypoglycemia,/acute renal failure on CKD stage 3, acute on chronic hypoxemic resp failure , decompensated CHF with underlying severe HCOM , diastolic dysfunction no focal neurological deficit pt remains some what confused , disoriented , very anxious and tearful ( change from her usual self-noted in past admissions) denies of any Hallucination at present per admitting Attending : Appropriate to hold home neuropsychotropic meds until patient mentation at baseline. Psychiatry consultation if hallucinations persist despite euglycemia and return to baseline kidney function. Acute on chronic hypoxic respiratory failure at baseline on 4-6 L 0 via nasal canula presented with worsening shortness of breath which worsens with exertion and lying flat. was tachypneic Resp rate > 22 , O2 sat 92% on 3L, improved to 97-100% on high flow NC. possible cause -Acute decompensated CHF with diastolic dysfunction , Acute on chronic diastolic CHF hx chronic diastolic heart failure (EF 70%, TTE 2019), /hypertrophic cardiomyopathy presented with hypoxia /SOB , orthopnea BNP 5876, CXR: Slight improvement in the mild pulmonary vascular congestion without overt edema and Cardiomegaly and trace bilateral pleural effusions persist. pt given IV Albumin , IV Lasix avoided as pt is already on acute renal failure on CKD stage 3 per admission attending : Monitor creatinine response to IV albumin administration (Favor over IV crystalloid given pulmonary congestion on CXR and some weight gain as per patient account) hx of coronary artery disease sp PETERSON (07/2020) HOCM, family history sudden cardiac sp ICD placement troponin elevation possible due to type 2 NSTEMI , cardiac strain due to decompensated CHF , respiratory failure , hypoxia . chronic respiratory failure due to CADENCE (CPAP intolerance) on home O2 worsening of resp failure on presentation as outlined above improved today on 4 L o2 via nasal canula , denies of any SOB , no cough , no fever or chills Admission and Anticipated Discharge Date Admission Date: January 04, 2021 Subjective follow up visit for confusion /acute on chronic hypoxemic resp failure /acute CHF with diastolic heart failure /hypoglycemia : pt was very tearful , that she is getting admitted to hospital so frequently BSG been stable noted to have confusion , disorientation , wants to know repeatedly , why she is back in hospital , on 4 L o2 via nasal canula denies of any sob , cough , no fever or chills Review of Systems Review of Systems: All systems reviewed & are unremarkable except as noted in Subjective Physical Exam Constitutional: WD/WN, vitals as above Eyes: + anicteric sclerae Results & Data Results & Data ([facility]) Vital Signs (Past 12 Hours) Vital Signs Temp Pulse Pulse Resp BP BP Pulse Ox 01/05/21 16:00 72 01/05/21 15:00 36.3 C L 76 22 118/63 96 01/05/21 11:00 36.4 C L 76 22 144/76 H 90 01/05/21 07:56 36.6 C 73 22 124/74 98 01/05/21 07:37 76 22 84 L
[2021-01-05] MEDS ORDERED: FOLIC ACID 1 MG TAB PO SCH (21:00)
[2021-01-06] MEDS ORDERED: LORazepam 0.5 MG TAB PO STA (01:21)
[2021-01-06] MEDS: ALBUMIN 25% 12.5 GM/50 ML VIAL IV SCH ×3 (01:32→11:37)
[2021-01-06] MEDS: ACETAMINOPHEN 325 MG TAB PO PRN (05:14)
[2021-01-06] MEDS: D5W AND NSS 1,000 ML IV SCH (05:35)
--- NOTE | 2021-01-06 05:47 | Electrocardiogram Report ---
Test Reason : Blood Pressure : / mmHG Vent. Rate : 066 BPM Atrial Rate : 066 BPM P-R Int : 178 ms QRS Dur : 094 ms QT Int : 458 ms P-R-T Axes : 035 001 138 degrees QTc Int : 480 ms Poor data quality, interpretation may be adversely affected Normal sinus rhythm Prolonged QT Abnormal ECG When compared with ECG of 25-DEC-2020 07:20, QT has lengthened Confirmed by Jaycob Melo ([id number]) on 01/06/2021 5:47:39 AM Referred By: REFERRED SELF Confirmed By:Jaycob Melo
[2021-01-06 07:07] LABS: Allen Test Pos (Pos); Base Excess ABG -3.5 mEq/L (-9-1.8); HCO3 ABG 23 mmol/L (19-24); Oxygen Saturation ABG 98.9 % (90-95); PCO2 ABG 48 mmHg (35-46); PO2 ABG 149 mmHg (80-95)
[2021-01-06] MEDS: BUDESONIDE 0.5 MG/2 ML VIAL (PULMICORT) INH SCH (07:10)
[2021-01-06 07:38] LABS: BUN Creatinine Ratio 21.5 (10-20); Calcium 8.5 mg/dl (8.5-10.1); Creatinine Clr Calc Pharmacy 37.5 ml/min; Est GFR (African American) 46.6; Est GFR (Non-African American) 40.2; Magnesium 2.2 mg/dl (1.8-2.4); Potassium 4.3 mmol/L (3.5-5.1)
[2021-01-06 07:56] LABS: Hematocrit (blood only) 30.2 % (37-47); Hemoglobin 8.9 g/dL (12.0-16.0); Mean Corpuscular Hemoglobin 23.7 pg (25-34); Mean Corpuscular Hgb Conc 29.5 g/dL (32-36); Mean Corpuscular Volume 80.3 fL (80-100); Mean Platelet Volume 9.6 fL (7.4-10.4); Platelet Count 295 K/uL (130-400); RDW Coefficient of Variation 20.6 % (11.5-14.5); RDW Standard Deviation 61.1 fL (36.4-46.3); Red Blood Count 3.76 M/uL (4.2-5.4); White Blood Count 15.98 K/uL (4.8-10.8)
[2021-01-06] MEDS: FLUTICASONE/VILANTEROL 200/25MCG 14 PUFFS/INHALER INH SCH (07:56)
[2021-01-06] MEDS: DICLOFENAC SOD 1% GEL 100 GM TUBE EXT SCH (07:56)
[2021-01-06] MEDS: ISOSORBIDE MONO EXTENDED REL 30 MG TABCR PO SCH (07:57)
[2021-01-06] MEDS: ATORVASTATIN 40 MG TAB PO SCH (07:57)
[2021-01-06] MEDS: PANTOprazole 40 MG TAB PO SCH (07:57)
[2021-01-06] MEDS: HEPARIN SOD 5,000 UNIT/0.5 ML VIAL SQ SCH (07:57)
[2021-01-06] MEDS: ADVANCED PROBIOTIC 1250 MG CAPSULE PO SCH (07:57)
[2021-01-06] MEDS: METOPROLOL SUCC 50MG EXT REL TAB PO SCH (07:57)
[2021-01-06] MEDS: ASPIRIN 81 MG ECTAB PO SCH (07:58)
[2021-01-06] MEDS: DULoxetine HCL 60 MG CAP PO SCH (07:58)
[2021-01-06] MEDS: VERAPAMIL HCL 40 MG TAB PO SCH ×2 (07:58→11:51)
[2021-01-06] MEDS: INSULIN ASPART 100 UNITS/ML 3 ML PEN SC SCH ×2 (07:58→11:52)
[2021-01-06] MEDS ORDERED: ERTAPENEM SODIUM 1,000 MG in SODIUM CHLORIDE 0.9% 50 ML IV SCH (13:00)
--- NOTE | 2021-01-06 13:35 | Anesthesia Procedure Note ---
Anesthesia Procedure Note Intubation Note Vital Signs: Currently undergoing CPR for cardiac arrest. Code team unable to intubate but able to mask ventilate. Date of procedure: 01/06/21 Indication for intubation: Cardiac arrest Consent: Risk / Benefits Reviewed With: Emergency Monitors attached: EKG Paralytic medication: None Intubation technique: Mask ventilation and Cricoid pressure Equipment: MAC (3 Arytenoid view only, chest compressions resumed so back to mask ventilation temporarily) and Glidescope (Size 3 handle - used after unsuccessful MAC 3 look ) View: Grade 2 (posterior of cords, bloody secretions) Endotracheal tube: 8.0 and with Stylet Attempts: 2 Tube placement confirmation: auscultation (diostant breath sounds - nothing heard over stomach) and Positive CO2 detection (only a faint purple CO2 change on detector but was nearing end of code) Procedure Summary: Soon after intubation code was called.
--- NOTE | 2021-01-06 13:41 | Communication Note ---
Date of Service: January 06, 2021 Pt found unresponsive /Cyanotic on bed by nursing and my self no palpable pulse started CPR , "CODE BLUE " was called resuscitation with CPR per ACLS protocol continued , pt remained in PEA cardiac arrest , monitor showed Vtach , later Torsades received Epi, Amiodarone , IV MG , IV Hco3 ICU team was present at bedside , intubation was attempted. pt has severe HCOM , hypertrophic cardiomyopathy with respiratory failure spoke with [facility] Cardiology -very poor prognosis /severe HOCM with multiple co -morbidities recommends continue resuscitation per ACLS protocol . pt never regained pulse , Resuscitation attempt was done > 15 mins ; pt , time of 1: 21 pm I called pt's family during the code , pt while i was on the phone with Daughter Wilber Family -daughter / Kimo Velasquez on their way to hospital Felicity Dallas MD
--- NOTE | 2021-01-06 13:45 | Procedure Note ---
Procedure Note Date of Service January 06, 2021 Note Malia NUÑEZ was called at 12:58pm and I presented to the patient's room shortly thereafter. CPR was underway on my arrival. An intraosseous line was placed in the right tibia. The patient was undergoing an intubation attempt by the [facility] physician. The patient was thought to be in ventricular tachycardia. Her AICD was shocking her heart at the time of CPR. Upon my arrival, we immediately performed a defibrillation due to ongoing ventricular tachycardia. She did receive 300 mg of IV amiodarone and we gave an additional 150 mg of IV amiodarone. She received several doses of epinephrine. We also gave her 2 g of magnesium, 1 g of calcium chloride and 2 ampoules of bicarbonate. CPR continued for roughly 20 minutes total. Patient's underlying rhythm degenerated to pulseless electrical activity. Resuscitative efforts were discontinued due to the inability to regain pulses or any meaningful cardiac activity. Patient was declared at 1:21pm. Coding CPT Codes Resuscitation - Resuscitation: 96346 Heart/lung resuscitation CPR ([id number]) [facility] Procedure Codes (Charges) Resuscitation Resuscitation: 80935 Heart/lung resuscitation CPR
--- NOTE | 2021-01-06 13:52 | Death Pronouncement Note ---
Date of Service January 06, 2021 Pronouncement Note Admission Date Admission Date: January 04, 2021 pt : PEA cardiac arrest Jan 05 @ 1: 21 PM Contributing Factors (1) Encephalopathy: Contributing factors: severe Hypertrophic cardiomyopathy Acute on chronic Hypoxemic respiratory failure Acute decompensated CHF with diastolic heart failure pt found unresponsive , no pulse or breathing note , cyanotic CODE BLUE was called immediately . pt -unable to regain pulse after almost 20 mins of resuscitation please refer to earlier documentations. pronouncement : by myself : time of 1321 pm Pupils : bilateral dilated , non reactive no pulse palpable ( no carotid , radial , femoral pulse present ) no breathing movement , no breath sound with auscultation all reflexes were absent . family updated : Daughter and on their way to hospital Felicity Dallas MD Additional Data Attending physician: Felicity Dallas MD
--- NOTE | 2021-01-06 14:35 | Communication Note ---
Date of Service: January 06, 2021 Attending addendum ; pt was seen earlier by myself around 11: 30 am notified by Nursing that pt was more confused , hallucinating seen pt sitting up on chair , very tearful and anxious /confused -continued to mumble about being stressed out for her being on hospital worried about not able to return back to work due to her heart condition most of her conversations are not very coherent . on 4 L 02 via nasal canula , after counselling , pt appears to calm down a bit , says she is been having " Panic Attack , severe anxiety it is worse due to her current health condition and repeated hospital admissions offered her to speak to Psychiatry regarding her anxiety and confusion -pt is agreeable for the consult wants to get better , then burst into tears denies of any abdominal pain , has some discomfort on lower abdomen -pointing to urinary bladder . no nausea or vomiting /appetite fair UA was negative on admission Lunch tray was delivered - I stepped out of the room , to allow pt finish her lunch as I was doing my documentation in nursing station , next to her room noted Nursing calling out to her in the room walked in and found pt unresponsive on bed , in awkward position , jail out of the bed was cyanotic , Nasal Canula 02 was on floor initially CODE PURPLE was called , changed to CODE BLUE as no pulse was palpable , CPR initiated immediately pt after 20 mins as remained in PEA cardiac arrest while receiving full resuscitation attempt per ACLS protocol family Daughter and updated over phone please refer to previous documentations for detail Felicity Dallas MD
--- NOTE | 2021-01-06 18:06 | Discharge Summary ---
Date of Service January 06, 2021 Admission HPI Per Admitting Provider History obtained from patient and records. Medical history significant for chronic respiratory failure due to CADENCE (CPAP intolerance) on home O2, chronic diastolic heart failure (EF 70%, TTE 2019), CAD sp [place] stent (07/2020), hypertension, HOCM/ family history sudden cardiac sp ICD placement, DM2 insulin requiring, restless leg syndrome as per records, CRI (baseline creatinine 1.4), chronic anemia (baseline hemoglobin 9-10), mood disorder, pancreatic cyst. Last confinement 2 weeks ago for chronic cholecystitis status post biliary stent placement. Patient discharged on Levaquin Flagyl prescription. Home insulin dose reduced to 50% as per documentation due to hypoglycemic episodes at home. Few days history of worsening achy lower abdominal pain with watery diarrhea symptoms. Some nausea, no emesis. Low-grade fever as per patient, no chills. No chest pain, no unusual shortness of breath. No unusual cough symptoms. Poor appetite. Patient later noted by family to be disoriented and somewhat psychotic. Very paranoid. Smelling heart sausage sandwiches, hearing gunshots and fearful that she is going to be shot. EMS summoned by visiting nurse at home yesterday. BSG noted to be 55 upon arrival of EMS. Patient brought to the ER for evaluation. 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 Principal Diagnosis Pt Discharge Data Allergies Allergy/AdvReac Type Severity Reaction Status Date / Time Penicillins Allergy Intermediate Flushing, Verified 12/22/20 21:58 Itchiness Sulfa (Sulfonamide Allergy Intermediate Swelling Verified 12/22/20 21:58 Antibiotics) doxycycline Allergy Unknown Unknown Verified 12/22/20 21:58 adhesive AdvReac Intermediate Blistering Verified 12/22/20 21:58 morphine AdvReac Hallucinati Verified 12/22/20 21:59 ng Consultations 01/04/21 21:24 ED Decision to Admit Stat 01/05/21 01:46 Consult Case Management - Discharge Planning Routine Ordered Studies 01/04/21 19:[address] [CT head/brain wo con] Stat 01/04/21 22:40 CT abd pelvis wo con Urgent Hospital Course (1) Encephalopathy: Metabolic Encephalopathy : multifactorial hypoglycemia,/acute renal failure on CKD stage 3, acute on chronic hypoxemic resp failure , decompensated CHF with underlying severe HCOM , diastolic dysfunction no focal neurological deficit found unresponsive with PEA cardiac arrest /pt after > 20 mins of resuscitative attempt severe hypertrophic cardiomyopathy hx of sudden cardiac of multiple family members pt noted to have hyperdynamic LV function in last ECHO s/p AICD placement Vtach /torsade noted on monitor during CODE BLUE multiple dose of Amidoarone , IV MG , Hco3 , epi given was shocked once , pt received shock from her AICD unable to regain pulse - during this hospital stay Family members : , Sister , Son and Daughter updated at bedside condolences provided Family did not ask for Autopsy cause of -Natural due to severe underlying cardiomyopathy with multiple co -morbidities Notification of Try Out Person was not indicated Total Time Total Time Spent Total Time Spent (In Minutes): patient Discharge Plan Discharge Items Patient Disposition: Discharge Diagnosis: Patient : Vtach /PEA cardiac arrest Contributing factors: severe Hypertrophic cardiomyopathy Acute on chronic Hypoxemic respiratory failure Acute decompensated CHF with diastolic heart failure Addtl Attending Provider Instructions: 60 yo F with complicated medical hx of severe Hypertrophic cardiomyopathy s/p AICD , CKD stage 3 , chronic hypoxemic resp failure on 4 L home o2 , type 2 DM on insulin admitted with confusion , hypoglycemia . acute decompensation of chronic chf with diastolic heart failure , acute on chronic resp failure pt remained confused , but clinically improved with stable vol status ,improved resp status to baseline on 4 L -02 via nasal canula was seen by myself , nursing staff and [employer] CL[employer] this morning , confused but stable vitals around 12: 55 pm pt found unresponsive , no pulse or breathing note , cyanotic CODE BLUE was called immediately .CPR , shock , resuscitative attempts per ACLS protocol done , ICU team , anesthesia was present , pt was intubated pt -unable to regain pulse after almost 20 mins of resuscitation family updated
== END 2021-01-06 16:26 | disposition expired | DRG 637 ==
LOC: ED 17:57 → 2W 22:47